=== PATIENT | female | born 1980 | race Caucasian/White ===

== ENCOUNTER → 2016-05-27 | Outpatient (CLI) | payer OTHER ==
[~2016-05-27] MED LIST: ADDE20CA PO; ATOM40CA PO; BUPR150T3 PO; CLONI1TA PO; GABA-283 PO; LEVO175T2 PO; LEVO200T4 PO; PROC10TA PO; TRAM50TA2 PO; TRAZO50TA PO
== END ==
LOC: M OUTALCOH 09:19
PROVIDERS: ATTEND Psychiatry & Neurology Psychiatry
DX: F10.20 Alcohol dependence, uncomplicated (principal); F12.20 Cannabis dependence, uncomplicated; F11.20 Opioid dependence, uncomplicated

== ENCOUNTER → 2016-07-04 | Outpatient (RCR) | payer OTHER | LOC: M OUTALCOH 06-09 13:28 | PROVIDERS: ATTEND Psychiatry & Neurology Psychiatry | DX: F10.20 Alcohol dependence, uncomplicated (principal); F17.200 Nicotine dependence, unspecified, uncomplicated; F12.20 Cannabis dependence, uncomplicated; F11.20 Opioid dependence, uncomplicated ==

== ENCOUNTER 2016-08-01 13:00 | Outpatient (RCR) | payer OTHER | END 2016-08-03 | LOC: M OUTALCOH 13:00 | PROVIDERS: ATTEND Psychiatry & Neurology Psychiatry | DX: F10.20 Alcohol dependence, uncomplicated (principal); F17.200 Nicotine dependence, unspecified, uncomplicated; F12.20 Cannabis dependence, uncomplicated; F11.20 Opioid dependence, uncomplicated ==

== ENCOUNTER 2016-10-07 09:25 | Emergency (ER) | payer OTHER ==
[~2016-10-07] VITALS: Ht 160 cm; Wt 80.7 kg
[~2016-10-07 09:25] MED LIST changes: -ADDE20CA PO; +ADDE20CA3 PO
[2016-10-07 09:26] VITALS: BP 112/76
[2016-10-07] MEDS ORDERED: TRAM50TA2 PO (09:34)
[2016-10-07] MEDS ORDERED: ADDE30CA3 PO (09:34)
[2016-10-07] MEDS ORDERED: ALPRAZolam 0.25 MG TAB PO ONE (10:00)
[2016-10-07] MEDS ORDERED: XANA0.5T PO (10:14)
[2017-02-09] MEDS ORDERED: ALPR0.5T3 (17:40)
[2017-02-09] MEDS ORDERED: TRAM50TA2 (17:40)
[2017-02-09] MEDS ORDERED: LEXA1TAB PO (18:31)
[2017-02-09] MEDS ORDERED: HYDR-3363 PO (18:40)
== END 2016-10-07 10:24 | disposition home or self-care (01) ==
LOC: M ED 09:25
DX: F41.9 Anxiety disorder, unspecified (principal); E07.9 Disorder of thyroid, unspecified; Z79.899 Other long term (current) drug therapy; Z79.891 Long term (current) use of opiate analgesic

== ENCOUNTER → 2016-12-31 | Outpatient (CLI) | payer MEDICAID ==
[~2016-12-31] MED LIST changes: +ADDE30CA3 PO; +ALPR0.5T3; +ESCI10TA2; +HYDR-3363 PO; +LEXA1TAB PO; +NALT50TA4; +TRAM50TA2; +TRAZ50TA11; +XANA0.5T PO
== END ==
LOC: M OUTALCOH 12:32
PROVIDERS: ATTEND Psychiatry & Neurology Psychiatry
DX: F11.20 Opioid dependence, uncomplicated (principal); F10.20 Alcohol dependence, uncomplicated

== ENCOUNTER 2017-01-06 12:11 | Emergency (ER) | payer MEDICAID, OTHER ==
[~2017-01-06] VITALS: Ht 160 cm; Wt 81.8 kg
[2017-01-06 12:11] VITALS: BP 133/81
[~2017-01-06 12:11] MED LIST changes: -ALPR0.5T3; -ESCI10TA2; -HYDR-3363 PO; -LEXA1TAB PO; -NALT50TA4; -TRAM50TA2; -TRAZ50TA11
[2017-01-06] MEDS ORDERED: NALT50TA4 (12:15)
[2017-01-06] MEDS ORDERED: ESCI10TA2 (12:15)
[2017-01-06] MEDS ORDERED: TRAZ50TA11 (12:15)
[2017-02-09] MEDS ORDERED: TRAM50TA2 (17:40)
[2017-02-09] MEDS ORDERED: ALPR0.5T3 (17:40)
[2017-02-09] MEDS ORDERED: LEXA1TAB PO (18:31)
[2017-02-09] MEDS ORDERED: HYDR-3363 PO (18:40)
== END 2017-01-06 13:44 | disposition left against medical advice (07) ==
LOC: M ED 12:11
DX: M79.673 Pain in unspecified foot (principal); Z53.21 Procedure and treatment not carried out due to patient leaving prior to being seen by health care provider

== ENCOUNTER 2017-03-03 09:00 | Outpatient (RCR) | payer MEDICAID ==
[~2017-03-03 09:00] MED LIST changes: +ALPR0.5T3; +ESCI10TA2; +HYDR-3363 PO; +LEXA1TAB PO; +NALT50TA4; +TRAM50TA2; +TRAZ50TA11
== END 2017-03-05 ==
LOC: M OUTALCOH 09:00
PROVIDERS: ATTEND Psychiatry & Neurology Psychiatry
DX: F10.20 Alcohol dependence, uncomplicated (principal); F17.200 Nicotine dependence, unspecified, uncomplicated; F12.20 Cannabis dependence, uncomplicated; F11.20 Opioid dependence, uncomplicated

== ENCOUNTER 2017-09-07 11:03 | Emergency (ER) | payer OTHER, MEDICAID | END 2017-09-07 12:16 | disposition left against medical advice (07) | LOC: M ED 11:03 | DX: Z53.21 Procedure and treatment not carried out due to patient leaving prior to being seen by health care provider (principal) ==

== ENCOUNTER 2017-09-07 19:38 | Emergency (ER) | payer MEDICAID, OTHER ==
[2017-09-07] MEDS: NS 1,000 ML IV (20:32)
[2017-09-07 20:36] LABS: BASO % 0.4 % (0.0-1.0); EOS # 0.1 10^3/uL (0.0-0.50); EOS % 1.1 % (0.0-3.0); HEMATOCRIT 39.2 % (36.0-47.0); HEMOGLOBIN 12.9 g/dl (12.0-15.5); IMMATURE GRANULOCYTE % 0.2 % (0-3.0); LYMPH # 1.2 10^3/uL (1.5-4.5); LYMPH % 23.3 % (24.0-44.0); MEAN CORPUSCULAR HEMOGLOBIN 28.8 pg (27.0-33.0); MEAN CORPUSCULAR HGB CONC 32.9 g/dl (32.0-36.5); MEAN CORPUSCULAR VOLUME 87.5 fl (80.0-96.0); MONO # 0.4 10^3/uL (0.0-0.8); MONO % 6.8 % (0.0-5.0); NEUTROPHILS # 3.6 10^3/uL (1.8-7.7); NEUTROPHILS % 68.2 % (36.0-66.0); PLATELET COUNT, AUTOMATED 207 10^3/uL (150-450); RED BLOOD COUNT 4.48 10^6/uL (4.00-5.40); RED CELL DISTRIBUTION WIDTH 13.1 % (11.5-14.5); WHITE BLOOD COUNT 5.3 10^3/uL (4.0-10.0)
[2017-09-07 20:40] LABS: BEDSIDE GLUCOSE 98 MG/DL (70-105)
[2017-09-07 20:46] LABS: AMMONIA 20 uMOL/L (<32)
[2017-09-07 20:48] LABS: ACETAMINOPHEN LEVEL < 2.0 UG/ML (10.0-30.0); ALBUMIN 3.6 GM/DL (3.2-5.2); ALBUMIN/GLOBULIN RATIO 1.29 (1.00-1.93); ALKALINE PHOSPHATASE 97 U/L (45-117); ALT/SGPT 20 U/L (12-78); ANION GAP 9 MEQ/L (8-16); AST/SGOT 22 U/L (7-37); BILIRUBIN,DIRECT 0.1 MG/DL (0.0-0.2); BILIRUBIN,TOTAL 0.3 MG/DL (0.2-1.0); BLOOD UREA NITROGEN 7 MG/DL (7-18); CALCIUM LEVEL 8.2 MG/DL (8.5-10.1); CARBON DIOXIDE LEVEL 28 MEQ/L (21-32); CHLORIDE LEVEL 107 MEQ/L (98-107); CPK CREATINE PHOSPHOKINASE 179 U/L (26-192); ETHYL ALCOHOL (ETHANOL) < 0.003 % (0.000-0.010); GLOMERULAR FILTRATION RATE > 60.0 (>60); GLUCOSE, FASTING 111 MG/DL (70-100); POTASSIUM SERUM 3.6 MEQ/L (3.5-5.1); SALICYLATE LEVEL < 1.7 MG/DL (5.0-30.0); SODIUM LEVEL 144 MEQ/L (136-145); TOTAL PROTEIN 6.4 GM/DL (6.4-8.2); TROPONIN I < 0.02 NG/ML (< 0.10)
[2017-09-07 20:53] LABS: CK-MB VALUE MASS 1.9 NG/ML (<3.6); MB/CK RELATIVE INDEX 1.06 (< OR =4)
[2017-09-07 20:55] LABS: LACTIC ACID SEPSIS PROTOCOL 2.2 MMOL/L (0.4-2.0)
[2017-09-07 21:28] LABS: CONTROL LINE HCG INT CTR LINE PRESENT; HCG, SERUM QUALITATIVE NEGATIVE (NEGATIVE)
[2017-09-07 21:30] LABS: FREE T4 0.36 NG/DL (0.76-1.46); OSMOLALITY SERUM 304 MOSM/KG (275-295)
[2017-09-07 22:00] LABS: AMORPHOUS SEDIMENT RFX SMALL (NEGATIVE); KETONE, URINE AUTO RFX 1+ mg/dL (NEGATIVE); NITRITE, URINE AUTO RFX NEGATIVE (NEGATIVE); RBC, URINE AUTO RFX TNTC /HPF (0-3); SPECIFIC GRAVITY UR AUTO RFX 1.017 (1.002-1.035); SQUAM EPITHELIAL CELL UR AURFX 8 /HPF (0-6)
[2017-09-07 22:03] LABS: LEUKOCYTE ESTERASE UR AUTO RFX 2+ (NEGATIVE); WBC, URINE AUTO RFX 54 /HPF (0-3)
[2017-09-07 22:04] LABS: AMPHETAMINES LEVEL URINE NEGATIVE (NEGATIVE); BARBITURATES URINE NEGATIVE (NEGATIVE); BENZODIAZEPINES URINE NEGATIVE (NEGATIVE); CANNABINOIDS URINE NEGATIVE (NEGATIVE); COCAINE METABOLITE URINE POSITIVE (NEGATIVE); METHADONE URINE NEGATIVE (NEGATIVE); OPIATES URINE POSITIVE (NEGATIVE); PHENCYCLIDINE URINE NEGATIVE (NEGATIVE)
[2017-09-07] MEDS ORDERED: METOCLOPRAMIDE INJ 10MG/2ML VIAL (J2765) As Ordered (23:55)
[2017-09-07] MEDS: ONDANSETRON 4MG/2ML VIAL (J2405) IV (23:59)
[2017-09-08] MEDS: ONDANSETRON 4MG/2ML VIAL (J2405) IV (04:51)
[2017-09-08] MEDS: KETOROLAC 30 MG/ML VIAL (J1885) IV (04:51)
== END 2017-09-08 05:26 | disposition home or self-care (01) ==
LOC: M ED 19:38
DX: R41.82 Altered mental status, unspecified (principal); F19.10 Other psychoactive substance abuse, uncomplicated; F17.200 Nicotine dependence, unspecified, uncomplicated; Z79.899 Other long term (current) drug therapy
CPT/HCPCS: J2405

== ENCOUNTER → 2017-09-30 | Outpatient (CLI) | payer OTHER ==
[2017-09-30 15:42] LABS: HEMATOCRIT 41.7 % (36.0-47.0); HEMOGLOBIN 13.8 g/dl (12.0-15.5); MEAN CORPUSCULAR HEMOGLOBIN 29.2 pg (27.0-33.0); MEAN CORPUSCULAR HGB CONC 33.1 g/dl (32.0-36.5); MEAN CORPUSCULAR VOLUME 88.3 fl (80.0-96.0); PLATELET COUNT, AUTOMATED 186 10^3/uL (150-450); RED BLOOD COUNT 4.72 10^6/uL (4.00-5.40); RED CELL DISTRIBUTION WIDTH 13.3 % (11.5-14.5); WHITE BLOOD COUNT 6.9 10^3/uL (4.0-10.0)
[2017-09-30 16:48] LABS: HIV 1&2 SCREEN CENTAUR NEGATIVE (NEGATIVE)
[2017-09-30 17:19] LABS: CHLAMYDIA DNA AMPLIFICATION NEGATIVE (NEGATIVE); GC DNA AMPLIFICATION NEGATIVE (NEGATIVE)
[2017-10-01 10:00] LABS: ALBUMIN 4.2 GM/DL (3.2-5.2); ALKALINE PHOSPHATASE 112 U/L (45-117); ALT/SGPT 30 U/L (12-78); ANION GAP 9 MEQ/L (8-16); AST/SGOT 20 U/L (7-37); BILIRUBIN,TOTAL 0.3 MG/DL (0.2-1.0); BLOOD UREA NITROGEN 11 MG/DL (7-18); CALCIUM LEVEL 8.9 MG/DL (8.5-10.1); CARBON DIOXIDE LEVEL 25 MEQ/L (21-32); CHLORIDE LEVEL 109 MEQ/L (98-107); CREATININE FOR GFR 1.02 MG/DL (0.55-1.30); GLOMERULAR FILTRATION RATE > 60.0 (>60); GLUCOSE, FASTING 95 MG/DL (70-100); HCG, SERUM QUANTITATIVE < 1.0 MIU/ML; POTASSIUM SERUM 4.8 MEQ/L (3.5-5.1); SODIUM LEVEL 143 MEQ/L (136-145); TOTAL PROTEIN 7.2 GM/DL (6.4-8.2)
[2017-10-02 10:09] LABS: HEPATITIS C VIRUS ABY INDEX 0.1 INDEX (<0.8)
[2017-10-02 10:22] LABS: HEPATITIS B SURFACE ANTIGEN NEGATIVE (NEGATIVE)
== END ==
LOC: M LAB 15:09
DX: F11.20 Opioid dependence, uncomplicated (principal); R94.31 Abnormal electrocardiogram [ECG] [EKG]
CPT/HCPCS: 93005

== ENCOUNTER → 2017-11-17 | Outpatient (REF) | payer OTHER ==
[2017-11-17 13:12] LABS: ALBUMIN 3.5 GM/DL (3.2-5.2); ALBUMIN/GLOBULIN RATIO 1.13 (1.00-1.93); ALKALINE PHOSPHATASE 85 U/L (45-117); ALT/SGPT 30 U/L (12-78); ANION GAP 7 MEQ/L (8-16); AST/SGOT 32 U/L (7-37); BILIRUBIN,TOTAL 0.3 MG/DL (0.2-1.0); BLOOD UREA NITROGEN 14 MG/DL (7-18); CALCIUM LEVEL 9.1 MG/DL (8.5-10.1); CARBON DIOXIDE LEVEL 29 MEQ/L (21-32); CHLORIDE LEVEL 109 MEQ/L (98-107); CHOLESTEROL LEVEL 161 MG/DL (<200); CHOLESTEROL RISK RATIO 4.878 (<5); CREATININE FOR GFR 1.54 MG/DL (0.55-1.30); GLOMERULAR FILTRATION RATE 40.8 (>60); GLUCOSE, FASTING 108 MG/DL (70-100); HDL CHOLESTEROL 33 MG/DL (>40); LDL CHOLESTEROL 88.8 MG/DL (<100); NON-HDL-C 128 MG/DL; POTASSIUM SERUM 3.9 MEQ/L (3.5-5.1); SODIUM LEVEL 145 MEQ/L (136-145); TOTAL PROTEIN 6.6 GM/DL (6.4-8.2); TRIGLYCERIDES LEVEL 196 MG/DL (<150)
== END ==
LOC: M LAB REF 12:06
DX: E03.8 Other specified hypothyroidism (principal)

== ENCOUNTER 2018-01-11 11:25 | Emergency (ER) | payer OTHER | END 2018-01-11 12:41 | disposition home or self-care (01) | LOC: M ED 11:25 | DX: Z76.0 Encounter for issue of repeat prescription (principal); F41.9 Anxiety disorder, unspecified; F19.10 Other psychoactive substance abuse, uncomplicated; F17.210 Nicotine dependence, cigarettes, uncomplicated; Z79.899 Other long term (current) drug therapy | CPT/HCPCS: 99282 ==

== ENCOUNTER → 2018-06-08 | Outpatient (REF) | payer OTHER ==
[~2018-06-08] MED LIST changes: +CLON-412 PO; -GABA-283 PO; +GABA-845 PO; +METH10TA2 PO; -PROC10TA PO; +PROC10TA4 PO; +QUET5TAB PO; +TRAZ-160; -TRAZ50TA11
[2018-06-08 12:59] LABS: FREE T4 1.45 NG/DL (0.76-1.46); THYROID STIMULATING HORMONE 0.01 uIU/ML (0.358-3.740)
== END ==
LOC: M LAB REF 12:18
PROVIDERS: ATTEND Nurse Practitioner Primary Care
DX: E03.9 Hypothyroidism, unspecified (principal)

== ENCOUNTER 2018-07-15 07:02 | Emergency (ER) | payer MEDICAID, OTHER, SELFPAY ==
[~2018-07-15] VITALS: Ht 160 cm; Wt 93.9 kg
[~2018-07-15 07:02] MED LIST changes: +TRAZ1TAB6 PO; -TRAZO50TA PO
[2018-07-15 07:57] LABS: BASO # 0.1 10^3/uL (0.0-0.2); BASO % 1.3 % (0.0-1.0); EOS # 0.4 10^3/uL (0.0-0.50); EOS % 6.1 % (0.0-3.0); HEMATOCRIT 42.4 % (36.0-47.0); HEMOGLOBIN 14.4 g/dl (12.0-15.5); LYMPH # 1.8 10^3/uL (1.5-4.5); LYMPH % 25.6 % (24.0-44.0); MEAN CORPUSCULAR VOLUME 88.3 fl (80.0-96.0); MONO # 0.4 10^3/uL (0.0-0.8); MONO % 6.1 % (0.0-5.0); NEUTROPHILS # 4.1 10^3/uL (1.8-7.7); NEUTROPHILS % 60.3 % (36.0-66.0); PLATELET COUNT, AUTOMATED 151 10^3/uL (150-450); WHITE BLOOD COUNT 6.8 10^3/uL (4.0-10.0)
[2018-07-15 08:16] LABS: BLOOD UREA NITROGEN 19 MG/DL (7-18); CARBON DIOXIDE LEVEL 27 MEQ/L (21-32); CHLORIDE LEVEL 108 MEQ/L (98-107); CPK CREATINE PHOSPHOKINASE 384 U/L (26-192); CREATININE FOR GFR 1.42 MG/DL (0.55-1.30); GLOMERULAR FILTRATION RATE 44.6 (>60); GLUCOSE, FASTING 88 MG/DL (70-100); MB/CK RELATIVE INDEX 0.57 (< OR =4); POTASSIUM SERUM 4.2 MEQ/L (3.5-5.1); SODIUM LEVEL 141 MEQ/L (136-145); TROPONIN I < 0.02 NG/ML (< 0.10)
--- NOTE | 2018-07-15 08:18 | REP ---
Chest x-ray: Two views. History: Dyspnea. Cough. No comparison chest x-ray. Findings: The lungs are symmetrically aerated and clear. The pleural angles are sharp. EKG monitoring electrodes overlie the chest. The heart is not enlarged. There is evidence of right hilar and right paratracheal lymphadenopathy. No definite left hilar adenopathy. No bony abnormality is seen. Exam is otherwise unremarkable. Impression: Right paratracheal and right hilar lymphadenopathy. Rule out lymphoma versus sarcoidosis versus other adenopathy. Consider chest CT with IV contrast. Electronically Signed by Sourav Valle MD 07/15/2018 08:10 A
[2018-07-15] MEDS ORDERED: ISOVUE-370 76% 100ML VIAL (Q9967) As Ordered ONE (08:35)
[2018-07-15 08:51] LABS: FREE T4 0.2 NG/DL (0.76-1.46)
--- NOTE | 2018-07-15 09:38 | REP ---
CT of the chest with IV contrast: Comparison is the PA and lateral plain film study of the chest dated 07/15/2018. There is mediastinal lymph node enlargement in the anterior mediastinum, paratracheal mediastinum, aorticopulmonic window, precarinal and subcarinal areas. There is bilateral hilar lymph node enlargement. There is no axillary lymph node enlargement. There is no periaortic or retrocrural lymph node enlargement. There is a new ground-glass left lower lobe density measuring 3.2 cm craniocaudad on the coronal images, , not visible on the comparison plain film study. There is a 5.2 cm ground-glass density in the right perihilar area in the anterior segment right lower lobe on image 50, not visible on the comparison plain film study. There are no pleural effusions. The thoracic aorta is unremarkable. The cardiac size is normal. The the visible upper abdominal contents are unremarkable. Splenic size cannot be determined as the spleen is partially excluded. Impression: Mediastinal and bilateral hilar lymph node enlargement. No axillary lymph node enlargement. Bilateral lower lobe ground-glass densities as described. No pleural effusions. Electronically Signed by Levy Tena MD 07/15/2018 09:30 A
[2018-07-15] MEDS ORDERED: LEVO150T7 PO (11:44)
[2018-07-15 12:01] VITALS: BP 134/92
--- NOTE | 2018-07-15 15:40 | ECGEPIP ---
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
== END 2018-07-15 12:03 | disposition home or self-care (01) ==
LOC: M ED 07:02
DX: R07.89 Other chest pain (principal); R59.0 Localized enlarged lymph nodes; R91.8 Other nonspecific abnormal finding of lung field; R00.0 Tachycardia, unspecified; E03.9 Hypothyroidism, unspecified; R25.1 Tremor, unspecified; R53.1 Weakness; F32.9 Major depressive disorder, single episode, unspecified; F17.210 Nicotine dependence, cigarettes, uncomplicated
CPT/HCPCS: 36415; 71046; 71260; 80048; 82550; 82553; 84439; 84443; 85025; 86480; 93005; 93041; 94760; 99285; Q9967

== ENCOUNTER → 2018-07-28 | Outpatient (CLI) | payer MEDICAID ==
[~2018-07-28] MED LIST changes: +LEVO150T7 PO
[2018-07-28 13:47] LABS: BASO # 0.1 10^3/uL (0.0-0.2); BASO % 1.3 % (0.0-1.0); EOS # 0.3 10^3/uL (0.0-0.50); EOS % 3.7 % (0.0-3.0); HEMATOCRIT 44.4 % (36.0-47.0); HEMOGLOBIN 14.8 g/dl (12.0-15.5); LYMPH # 1.9 10^3/uL (1.5-4.5); LYMPH % 26.5 % (24.0-44.0); MEAN CORPUSCULAR HEMOGLOBIN 30.3 pg (27.0-33.0); MEAN CORPUSCULAR HGB CONC 33.3 g/dl (32.0-36.5); MONO # 0.4 10^3/uL (0.0-0.8); MONO % 6.2 % (0.0-5.0); NEUTROPHILS # 4.4 10^3/uL (1.8-7.7); NEUTROPHILS % 61.6 % (36.0-66.0); PLATELET COUNT, AUTOMATED 174 10^3/uL (150-450); RED BLOOD COUNT 4.88 10^6/uL (4.00-5.40); WHITE BLOOD COUNT 7.1 10^3/uL (4.0-10.0)
[2018-07-28 14:17] LABS: PARTIAL THROMBOPLASTIN TIME 30.3 SECONDS (25.4-37.6)
[2018-07-28 14:25] LABS: INR 0.96; PROTHROMBIN TIME 12.9 SECONDS (12.1-14.4)
[2018-07-28 15:32] LABS: ALBUMIN 4.4 GM/DL (3.2-5.2); BILIRUBIN,DIRECT 0.1 MG/DL (0.0-0.2); BILIRUBIN,TOTAL 0.6 MG/DL (0.2-1.0); CALCIUM LEVEL 9.3 MG/DL (8.5-10.1); CREATININE FOR GFR 1.38 MG/DL (0.55-1.30); GLOMERULAR FILTRATION RATE 46.1 (>60); TOTAL PROTEIN 7.7 GM/DL (6.4-8.2)
[2018-07-31 00:07] LABS: VITAMIN D 1,25 DIHYDROXY 38.8 pg/mL (19.9-79.3)
== END ==
LOC: M SMT 10:20
PROVIDERS: ATTEND Internal Medicine Pulmonary Disease
DX: R59.0 Localized enlarged lymph nodes (principal); R91.8 Other nonspecific abnormal finding of lung field

== ENCOUNTER → 2018-08-11 | Outpatient (CLI) | payer MEDICAID, SELFPAY ==
[~2018-08-11] MED LIST changes: +BENZ0.5T PO; +ESCI10TA2 PO; +GABA-843 PO; +IBUP200T45 PO; +QUET1TAB7 PO; +REXU1TAB2 PO; +SYNT150T PO; +TRAZ10TA PO
--- NOTE | 2018-08-11 15:55 | REP ---
Right axillary ultrasound: History: Palpable axillary lymph node on physical exam. Bilateral hilar and mediastinal lymphadenopathy. Chest CT study July 15, 2018. Findings: Scanning through the right axilla shows two visible but completely normal-appearing small lymph nodes one measuring 1.2 x 0.7 x 0.9 cm and the other 0.7 x 0.4 x 0.5 cm. These are predominately fat replaced and appear normal morphologically. Impression: No evidence of adenopathy. Electronically Signed by Sourav Valle MD 08/11/2018 03:45 P
== END ==
LOC: M RAD 12:28
PROVIDERS: ATTEND Internal Medicine Pulmonary Disease
DX: R59.0 Localized enlarged lymph nodes (principal)

== ENCOUNTER 2018-08-27 07:26 | Inpatient (IN) | payer MEDICAID, OTHER, SELFPAY ==
[~2018-08-27] VITALS: Ht 160 cm; Wt 91.8 kg
[~2018-08-27 07:26] MED LIST changes: -BENZ0.5T PO; -ESCI10TA2 PO; -GABA-843 PO; -IBUP200T45 PO; -QUET1TAB7 PO; -REXU1TAB2 PO; -SYNT150T PO; -TRAZ10TA PO
[2018-08-27 08:47] LABS: HEMATOCRIT 40.4 % (36.0-47.0); HEMOGLOBIN 13.9 g/dl (12.0-15.5); MEAN CORPUSCULAR HGB CONC 34.4 g/dl (32.0-36.5); MEAN CORPUSCULAR VOLUME 92.9 fl (80.0-96.0); PLATELET COUNT, AUTOMATED 160 10^3/uL (150-450); RED BLOOD COUNT 4.35 10^6/uL (4.00-5.40); WHITE BLOOD COUNT 5.5 10^3/uL (4.0-10.0)
[2018-08-27 09:15] LABS: HCG, SERUM QUALITATIVE NEGATIVE (NEGATIVE)
[2018-08-27 09:33] LABS: AMPHETAMINES LEVEL URINE NEGATIVE (NEGATIVE); BARBITURATES URINE NEGATIVE (NEGATIVE); BENZODIAZEPINES URINE NEGATIVE (NEGATIVE); CANNABINOIDS URINE NEGATIVE (NEGATIVE); COCAINE METABOLITE URINE NEGATIVE (NEGATIVE); METHADONE URINE NEGATIVE (NEGATIVE); OPIATES URINE NEGATIVE (NEGATIVE); PHENCYCLIDINE URINE NEGATIVE (NEGATIVE)
[2018-08-27 09:44] LABS: ALBUMIN 4.5 GM/DL (3.2-5.2); ALT/SGPT 35 U/L (12-78); BILIRUBIN,DIRECT 0.2 MG/DL (0.0-0.2); BILIRUBIN,TOTAL 0.8 MG/DL (0.2-1.0); BLOOD UREA NITROGEN 25 MG/DL (7-18); CALCIUM LEVEL 8.7 MG/DL (8.5-10.1); CARBON DIOXIDE LEVEL 24 MEQ/L (21-32); CHLORIDE LEVEL 108 MEQ/L (98-107); CREATININE FOR GFR 1.08 MG/DL (0.55-1.30); ETHYL ALCOHOL (ETHANOL) < 0.003 % (0.000-0.010); GLOMERULAR FILTRATION RATE > 60.0 (>60); GLUCOSE, FASTING 97 MG/DL (70-100); POTASSIUM SERUM 4.1 MEQ/L (3.5-5.1); SALICYLATE LEVEL 4.3 MG/DL (5.0-30.0); SODIUM LEVEL 139 MEQ/L (136-145); TOTAL PROTEIN 7.3 GM/DL (6.4-8.2)
[2018-08-27 09:45] LABS: ACETAMINOPHEN LEVEL < 2.0 UG/ML (10.0-30.0)
[2018-08-27] MEDS ORDERED: ONDANSETRON 4 MG ORAL DISINTEGRATING TAB (Q0162 PER 1MG) PO ONE (09:45)
[2018-08-27] MEDS ORDERED: MOM 30ML SUSPENSION UDC PO PRN (11:30)
[2018-08-27] MEDS ORDERED: LORazepam 1 MG TAB PO STA (11:51)
[2018-08-27] MEDS ORDERED: SYNT150T PO (12:14)
[2018-08-27] MEDS ORDERED: IBUP200T45 PO (12:14)
[2018-08-27] MEDS: THIAMINE 100 MG TAB PO SCH ×2 (13:40→20:35)
[2018-08-27 16:12] VITALS: BP 130/88
[2018-08-27 18:03] VITALS: BP 140/99
[2018-08-27] MEDS: LORazepam 2 MG TAB PO PRN (18:06)
[2018-08-27] MEDS: ACETAMINOPHEN TAB 650MG DOSE (2X325MG) PO PRN (18:07)
[2018-08-27] MEDS: MAALOX 30 ML SUSP *UDC PO PRN (20:37)
[2018-08-27] MEDS: traZODone 50 MG TAB PO PRN (21:15)
[2018-08-28] MEDS: LORazepam 2 MG TAB PO PRN (03:50)
[2018-08-28 03:53] VITALS: BP 142/77
[2018-08-28 06:28] VITALS: BP 108/68
[2018-08-28] MEDS: MULTIVITAMINS/MINERALS THERAP 1 TAB PO SCH (08:01)
[2018-08-28] MEDS: THIAMINE 100 MG TAB PO SCH ×2 (08:01→20:04)
[2018-08-28] MEDS: FOLIC ACID 1 MG TAB PO SCH (08:01)
[2018-08-28] MEDS: MAALOX 30 ML SUSP *UDC PO PRN ×2 (08:01→18:26)
--- NOTE | 2018-08-28 08:42 | MHHPEPDOC ---
General Legal Status: 9.39 Chief Complaint "I'm having anxiety, depression, drinking, and my life is overwhelming. History of Present Illness HISTORY OF THE PRESENT ILLNESS: Patient is a 38 -year-old * Patient arrived ambulatory with her mother. Initially believed to be here for an anxiety attack, it was quickly learned that she was experiencing SI, as well as anxiety & depression. Patient states that she has h/o depression, anxiety & alcohol abuse. She reports previous h/o treatment w/[facility], however was in residential for 5 months (until early July), during which all treatment was via the residential staff from [facility]. She reports losing her insurance while in residential & subsequently has had no treatment since her release. She states that she has instead been self-medicating with alcohol on a daily basis since her release. Additionally she reports that she has been "couch surfing" among friends' homes, as she has no permanent home at this time. She states that these factors have directly contributed to worsening depression, anxiety & now desire to . She denies having any active plan, although continues to endorse + SI. Patient states she recently got out of residential and began drinking again. She has been sleeping on people's couches and they all drink. Originally she had kidnapped her child in 2014 and was on probation. She was incarcerated a second time for failing probation because she was drinking and missing her probation appointments. She has been sad and anxious. "I want to get back on my meds. Lexapro 20 mg and was hoping I could have Wellbutrin to quit smoking". She states she had no medications after putting residential and due to insurance difficulties. She states she is unable to find a place to stay and has an upset stomach. She had lost her apartment when she was treated. She has been drinking since she was age 15. Whiskey apparently one and a half pints a day. Her last drink was 2 days before admission. She has been in inpatient alcohol treatment twice and psychiatric treatment. This being the second time. Her legal history is negative at this time, but her history is as described medical problems. She has sarcoidosis and hypothyroidism. Her surgical history is positive for a and tubal ligation. She states her mother lives in [place] and has schizophrenia and alcoholism, and that her father was an alcoholic. He has never been sober and has also used opiates and pills. She was placed in a methadone program before residential, but has had none since. Psychiatric Review of Systems Depression (2 or more weeks): depressed mood Psychosis: denies PTSD: denies Anxiety: situational anxiety Past Psychiatric History Previous Psychiatric Diagnosis: Depression, anxiety, alcohol abuse. Previous Psychiatric Admissions: One time here and to previous alcohol rehabilitation, admission. Suicide Attempts:, None mention. Psychiatric Follow-up:. No follow-up. Psychiatric medications:, Lexapro 20 mg some use of stimulants. Past Medical History Medical Problems Hypothyroidism, and sarcoidosis Head Injury: No Seizures: Yes Hospitalizations: Yes Surgeries: No Family Medical/Psychiatric HX Psychiatric Disorders: Yes Addiction: Yes Suicide Attemps/Completions: No Addiction History alcohol, opioids Social History Childhood: . Abuse/Trauma:. Current Living Situation: Living on friends couches. Education: . Employment: . Social Support:. Family. Legal: Legal history as mentioned, probation failure and absconding with a child. Marital:, . Mental Status Examination General Appearance: unkempt Build: overweight Demeanor: very figety Eye Contact: average Activity: average Behavior: cooperative Speech: clear Mood: anxious Affect: full Thought Process: logical/linear Thought Content (Delusions): denies SI, HI, AVH Thought Content (Other): none reported Thought Content (Aggressive): none reported Perception (Hallucinations): none reported Perception (Other): none reported Cognition (Impairment of): none reported Cognition(Intelligence Est.): average Oriented: Oriented times three Insight: poor Judgment: Poor Psychosis: Denies Diagnoses Situational depression, anxiety, polysubstance abuse A-FIB/CHADSVASC A-FIB History Current/History of A-Fib/PAF?: No Initial Treatment Plan 1. Patient was admitted on a [9.39] status. 2. Complete history was obtained. 3. With patients permission, family will be contacted and database will be expanded. 4. Patients medication regimen will be reviewed and changed accordingly. 5. Patient will be provided with protected environment. 6. Patient will be treated with individual, group, and milieu therapies. 7. Patient will receive supportive psych-education. 8. Discharge planning will commence immediately. 9. Outpatient follow-up treatment will be strongly recommended. 10. The initial treatment plan will focus initially on: * Depression. * Risk for suicide. * Substance abuse. ESTIMATED LENGTH OF STAY: - DAYS. TIME SPENT COUNSELING AND COORDINATING INITIAL CARE: minutes. Vital Signs Vital Signs Date Time Temp Pulse Resp B/P (MAP) Pulse Ox O2 Delivery O2 Flow Rate FiO2 08/28/18 06:28 98.8 106 16 108/68 (81) 08/27/18 16:31 Room Air 08/27/18 16:12 96 Medications Scheduled Levothyroxine Sodium (Synthroid) 150 Mcg Tablet, 150 MCG PO QAM, (Reported) Scheduled PRN Ibuprofen (Ibu-200) 200 Mg Tablet, 800 MG PO Q6H PRN for PAIN, (Reported) Allergies Coded Allergies: No Known Allergies (Verified , 08/25/18) BOBBY TAYLOR MD August 28, 2018 08:42
[2018-08-28] MEDS: LORazepam 1 MG TAB PO SCH ×2 (09:23→16:09)
[2018-08-28] MEDS ORDERED: NICOTINE 14 MG/24 HR TRANSDERMAL TD ONE (10:15)
[2018-08-28] MEDS: NICOTINE 14 MG/24 HR TRANSDERMAL TD SCH (10:37)
[2018-08-28] MEDS: LEVOTHYROXINE 150MCG TABLET (0.15MG) PO SCH (12:29)
[2018-08-28] MEDS ORDERED: ONDANSETRON 4 MG TAB (S0181) PO ONE (13:00)
[2018-08-28] MEDS ORDERED: ESCITALOPRAM OXALATE 10 MG TAB (LEXAPRO) PO ONE (16:00)
[2018-08-28 18:20] VITALS: BP 120/89
[2018-08-28] MEDS: LORazepam 2 MG TAB PO SCH (20:04)
[2018-08-28] MEDS: ONDANSETRON 4 MG ORAL DISINTEGRATING TAB (Q0162 PER 1MG) PO PRN (20:04)
[2018-08-28] MEDS: traZODone 50 MG TAB PO PRN (20:04)
[2018-08-28] MEDS: ACETAMINOPHEN TAB 650MG DOSE (2X325MG) PO PRN (20:07)
[2018-08-28] MEDS ORDERED: LORazepam 1 MG TAB PO SCH (21:00)
[2018-08-29] MEDS: ONDANSETRON 4 MG ORAL DISINTEGRATING TAB (Q0162 PER 1MG) PO PRN ×2 (03:25→08:58)
[2018-08-29] MEDS: LEVOTHYROXINE 150MCG TABLET (0.15MG) PO SCH (06:18)
[2018-08-29 07:03] VITALS: BP 109/60
[2018-08-29] MEDS: buPROPion **XL** TABLET 150MG (WELLBUTRIN XL) PO SCH (08:27)
[2018-08-29] MEDS: FOLIC ACID 1 MG TAB PO SCH (08:27)
[2018-08-29] MEDS: THIAMINE 100 MG TAB PO SCH ×2 (08:27→20:15)
[2018-08-29] MEDS: MULTIVITAMINS/MINERALS THERAP 1 TAB PO SCH (08:27)
[2018-08-29] MEDS: LORazepam 2 MG TAB PO SCH ×3 (08:27→20:15)
[2018-08-29] MEDS: NICOTINE 14 MG/24 HR TRANSDERMAL TD SCH (08:28)
[2018-08-29 09:03] VITALS: BP 109/60
--- NOTE | 2018-08-29 15:04 | MHIPNPDOC ---
[facility] Progress Note Progress Note DATE OF SERVICE: 08/29/18 HISTORY: Patient on numerous medications and asking for other medication. Mood is good and affect bright, but use of medications needs to be guarded as patient has been noncompliant and also incarcerated with substantial alcohol use. VITAL SIGNS: See below. NEW TEST RESULTS: None. CURRENT MEDICATIONS: See below. MENTAL STATUS EXAMINATION: Patient is a 38-year old female, who is, admitted for noncompliance. Incarceration and alcohol use. Speech: Is, intact., But rapid Language skills are. No disturbance. Thought processes including: Intact. Thought content: Rapid speech. Abstract reasoning, and computation: [place] . Description of associations:. No loose associations. Description of abnormal or psychotic thoughts: Or psychotic thought. Judgment: Poor. Insight:, Poor. Orientation: Intact 3. Recent and remote memory:. No obvious disturbance. Attention span and concentration: Patient reports poor attention span and wants to be put back on stimulants. Language:, Intact. Fund of knowledge: Full. Mood:, Good. Affect:, Congruent. DIAGNOSES: 1. Polysubstance abuse. 2., Noncompliance. 3. Mood disorder. ASSESSMENT: Continued treatment. Continued evaluation of medications. O bservation of nausea. Continue detox MANAGEMENT PLAN: As above. TIME SPENT:, 30 minutes. Vital Signs Vital Signs Date Time Temp Pulse Resp B/P (MAP) Pulse Ox O2 Delivery O2 Flow Rate FiO2 08/29/18 09:03 98.9 90 14 109/60 96 08/29/18 09:01 Room Air Current Medications Current Medications Acetaminophen (Tylenol Tab) 650 mg Q6HP PRN PO HEADACHE or DISCOMFORT Last administered on 08/28/18at 20:07; Start 08/27/18 at 11:30 Al Hydrox/Mg Hydrox/Simethicone (Mylanta) 30 ml Q4HP PRN PO HEARTBURN/INDIGESTION Last administered on 08/28/18at 18:26; Start 08/27/18 at 11:30 Bupropion HCl (Wellbutrin Xl) 150 mg DAILY PO Last administered on 08/29/18at 08:27; Start 08/29/18 at 09:00 Folic Acid (Folic Acid) 1 mg DAILY PO Last administered on 08/29/18at 08:27; Start 08/28/18 at 09:00 Gabapentin (Neurontin) 400 mg TID PO ; Start 08/29/18 at 16:00 Home Med (Med Rec Complete!) ASDIRECTED XX ; Start 08/27/18 at 12:15; Stop 08/27/18 at 12:19; Status DC Levothyroxine Sodium (Synthroid) 150 mcg DAILY@0600 PO Last administered on 08/29/18 06:18; Start 08/28/18 at 13:00 Lorazepam (Ativan) 1 mg STAT STAT PO Last administered on 08/27/18at 12:11; Start 08/27/18 at 11:51; Stop 08/27/18 at 11:52; Status DC Lorazepam (Ativan) 1 mg TID PO Last administered on 08/28/18at 16:09; Start 08/28/18 at 09:00; Stop 08/28/18 at 19:05; Status DC Lorazepam (Ativan) 2 mg ASDIRECTED PRN PO SEE PROTOCOL Last administered on 08/28/18at 03:50; Start 08/27/18 at 11:30; Stop 08/28/18 at 09:14; Status DC Lorazepam (Ativan) 2 mg TID PO Last administered on 08/29/18at 08:27; Start 08/28/18 at 21:00 Lorazepam (Ativan) 2 mg TID PO ; Start 08/28/18 at 21:00; Status Cancel Magnesium Hydroxide (Milk Of Magnesia) 30 ml DAILYPRN PRN PO CONSTIPATION; Start 08/27/18 at 11:30 Multivitamins (Theragram-M) 1 tab DAILY PO Last administered on 08/29/18at 08:27; Start 08/28/18 at 09:00 Nicotine (Nicoderm Cq 14mg) 1 patch DAILY TD Last administered on 08/29/18 08:28; Start 08/28/18 at 09:00 Ondansetron HCl (Zofran Odt) 4 mg Q4HP PRN PO NAUSEA OR VOMITING Last administered on 08/29/18at 08:58; Start 08/28/18 at 19:45 Thiamine HCl (Thiamine HCl) 100 mg BID PO Last administered on 08/29/18 08:27; Start 08/27/18 at 13:00; Stop 08/29/18 at 21:01 Trazodone HCl (Desyrel) 50 mg QHSP PRN PO INSOMNIA Last administered on 08/28/18at 20:04; Start 08/27/18 at 11:30 Allergies Coded Allergies: No Known Allergies (Verified , 08/25/18) BOBBY TAYLOR MD August 29, 2018 15:04
[2018-08-29] MEDS: GABAPENTIN 400 MG CAP PO SCH ×2 (15:38→20:15)
[2018-08-29] MEDS: ACETAMINOPHEN TAB 650MG DOSE (2X325MG) PO PRN (18:51)
[2018-08-29 19:32] VITALS: BP 142/83
[2018-08-29] MEDS: IBUPROFEN 600 MG TAB PO PRN (21:53)
[2018-08-29] MEDS: traZODone 50 MG TAB PO PRN (22:33)
[2018-08-30] MEDS: LEVOTHYROXINE 150MCG TABLET (0.15MG) PO SCH (05:32)
[2018-08-30 06:31] VITALS: BP 117/55
[2018-08-30] MEDS: GABAPENTIN 400 MG CAP PO SCH ×3 (08:44→20:36)
[2018-08-30] MEDS: buPROPion **XL** TABLET 150MG (WELLBUTRIN XL) PO SCH (08:44)
[2018-08-30] MEDS: IBUPROFEN 600 MG TAB PO PRN ×2 (08:44→15:46)
[2018-08-30] MEDS: NICOTINE 14 MG/24 HR TRANSDERMAL TD SCH (08:44)
[2018-08-30] MEDS: MULTIVITAMINS/MINERALS THERAP 1 TAB PO SCH (08:44)
[2018-08-30] MEDS: FOLIC ACID 1 MG TAB PO SCH (08:44)
[2018-08-30] MEDS: LORazepam 2 MG TAB PO SCH (08:44)
[2018-08-30] MEDS: ACETAMINOPHEN TAB 650MG DOSE (2X325MG) PO PRN ×2 (12:14→20:36)
--- NOTE | 2018-08-30 14:10 | MHIPNPDOC ---
[facility] Progress Note Progress Note DATE OF SERVICE: 08/30/18 HISTORY: Patient had significant withdrawal symptoms, and was kept on an increased dose of Ativan 2 mg 3 times a day and is now reduced to 1 mg 3 times a day. She is also on Lexapro and Wellbutrin and hopes to move to a long-term to be away from the alcoholic acquaintances who she has been staying with. VITAL SIGNS: See below. NEW TEST RESULTS: None. CURRENT MEDICATIONS: See below. MENTAL STATUS EXAMINATION: Patient is a 38-year old female, who is suffering from depression, noncompliance, history of incarceration and alcoholism. Speech: Is. Normal. Language skills are normal Thought processes including:. Thought content:. No gross psychotic thoughts. Abstract reasoning, and computation:. Able to abstract. Description of associations:. No loose associations. Description of abnormal or psychotic thoughts:. No psychotic thought. Judgment:, Poor. Insight:, Poor. Orientation: Intact 3. Recent and remote memory:. Intact. Attention span and concentration: Intact. Language:. Intact. Fund of knowledge: Complete. Mood: Good. Affect:, Congruent. DIAGNOSES: 1. Depression. 2.. Poly substance abuse. 3. Homelessness. ASSESSMENT:. Patient plans to move to a long-term. Continue to decrease withdrawal medication MANAGEMENT PLAN:. Discharge planning after medication withdrawal and outpatient treatment plan. TIME SPENT:. 30 minutes. Vital Signs Vital Signs Date Time Temp Pulse Resp B/P (MAP) Pulse Ox O2 Delivery O2 Flow Rate FiO2 08/30/18 06:31 98.7 84 14 117/55 (75) 08/29/18 09:03 96 08/29/18 09:01 Room Air Current Medications Current Medications Acetaminophen (Tylenol Tab) 650 mg Q6HP PRN PO HEADACHE or DISCOMFORT Last administered on 08/30/18at 12:14; Start 08/27/18 at 11:30 Al Hydrox/Mg Hydrox/Simethicone (Mylanta) 30 ml Q4HP PRN PO HEARTBURN/INDIGESTION Last administered on 08/28/18at 18:26; Start 08/27/18 at 11:30 Bupropion HCl (Wellbutrin Xl) 150 mg DAILY PO Last administered on 08/30/18at 08:44; Start 08/29/18 at 09:00 Escitalopram Oxalate (Lexapro) 20 mg DAILY PO ; Start 08/31/18 at 09:00; Status UNV Folic Acid (Folic Acid) 1 mg DAILY PO Last administered on 08/30/18at 08:44; Start 08/28/18 at 09:00 Gabapentin (Neurontin) 400 mg TID PO Last administered on 08/30/18at 08:44; Start 08/29/18 at 16:00 Home Med (Med Rec Complete!) ASDIRECTED XX ; Start 08/27/18 at 12:15; Stop 08/27/18 at 12:19; Status DC Ibuprofen (Advil) 600 mg Q6HP PRN PO MODERATE PAIN (PS 5-7) Last administered on 08/30/18at 08:44; Start 08/29/18 at 21:15 Levothyroxine Sodium (Synthroid) 150 mcg DAILY@0600 PO Last administered on 08/30/18at 05:32; Start 08/28/18 at 13:00 Lorazepam (Ativan) 1 mg STAT STAT PO Last administered on 08/27/18at 12:11; Start 08/27/18 at 11:51; Stop 08/27/18 at 11:52; Status DC Lorazepam (Ativan) 1 mg TID PO Last administered on 08/28/18at 16:09; Start 08/28/18 at 09:00; Stop 08/28/18 at 19:05; Status DC Lorazepam (Ativan) 1 mg TID PO ; Start 08/30/18 at 16:00 Lorazepam (Ativan) 2 mg ASDIRECTED PRN PO SEE PROTOCOL Last administered on 08/28/18at 03:50; Start 08/27/18 at 11:30; Stop 08/28/18 at 09:14; Status DC Lorazepam (Ativan) 2 mg TID PO Last administered on 08/30/18at 08:44; Start 08/28/18 at 21:00; Stop 08/30/18 at 12:20; Status DC Lorazepam (Ativan) 2 mg TID PO ; Start 08/28/18 at 21:00; Status Cancel Magnesium Hydroxide (Milk Of Magnesia) 30 ml DAILYPRN PRN PO CONSTIPATION; Start 08/27/18 at 11:30 Multivitamins (Theragram-M) 1 tab DAILY PO Last administered on 08/30/18at 08:44; Start 08/28/18 at 09:00 Nicotine (Nicoderm Cq 14mg) 1 patch DAILY TD Last administered on 08/30/18at 08:44; Start 08/28/18 at 09:00 Ondansetron HCl (Zofran Odt) 4 mg Q4HP PRN PO NAUSEA OR VOMITING Last administered on 08/29/18at 08:58; Start 08/28/18 at 19:45 Thiamine HCl (Thiamine HCl) 100 mg BID PO Last administered on 08/29/18at 20:15; Start 08/27/18 at 13:00; Stop 08/29/18 at 21:01; Status DC Trazodone HCl (Desyrel) 50 mg QHSP PRN PO INSOMNIA Last administered on 08/29/18at 22:33; Start 08/27/18 at 11:30 Allergies Coded Allergies: No Known Allergies (Verified , 08/25/18) BOBBY TAYLOR MD August 30, 2018 14:10
[2018-08-30] MEDS: LORazepam 1 MG TAB PO SCH ×2 (15:24→20:36)
[2018-08-30] MEDS: ESCITALOPRAM OXALATE 10 MG TAB (LEXAPRO) PO SCH (15:25)
[2018-08-30 19:11] VITALS: BP 126/77
[2018-08-30] MEDS: traZODone 50 MG TAB PO PRN (22:05)
[2018-08-31] MEDS: BENZOCAINE 10% 9GM TUBE (ANBESOL) TOP PRN ×2 (03:08→17:42)
[2018-08-31] MEDS: IBUPROFEN 600 MG TAB PO PRN ×3 (03:08→17:41)
[2018-08-31] MEDS: ONDANSETRON 4 MG ORAL DISINTEGRATING TAB (Q0162 PER 1MG) PO PRN (03:08)
[2018-08-31] MEDS: LEVOTHYROXINE 150MCG TABLET (0.15MG) PO SCH (05:50)
[2018-08-31 06:55] VITALS: BP 123/73
[2018-08-31] MEDS: FOLIC ACID 1 MG TAB PO SCH (08:18)
[2018-08-31] MEDS: GABAPENTIN 400 MG CAP PO SCH ×3 (08:18→20:32)
[2018-08-31] MEDS: MULTIVITAMINS/MINERALS THERAP 1 TAB PO SCH (08:18)
[2018-08-31] MEDS: LORazepam 1 MG TAB PO SCH ×3 (08:18→20:33)
[2018-08-31] MEDS: buPROPion **XL** TABLET 150MG (WELLBUTRIN XL) PO SCH (08:18)
[2018-08-31] MEDS: ESCITALOPRAM OXALATE 10 MG TAB (LEXAPRO) PO SCH (08:18)
[2018-08-31] MEDS: NICOTINE 14 MG/24 HR TRANSDERMAL TD SCH (08:20)
--- NOTE | 2018-08-31 11:43 | MHIPNPDOC ---
[facility] Progress Note Progress Note DATE OF SERVICE: 08/31/18 HISTORY: Per Dr. Jensen: "Patient is a 38 -year-old Female. Patient states she recently got out of [facility] and began drinking again. She has been sleeping on people's couches and they all drink. Originally she had kidnapped her child in 2014 and was on probation. She was incarcerated a second time for failing probation because she was drinking and missing her probation appointments. She has been sad and anxious. "I want to get back on my meds. Lexapro 20 mg and was hoping I could have Wellbutrin to quit smoking". She s tates she had no medications after putting [facility] and due to insurance difficulties. She states she is unable to find a place to stay and has an upset stomach. She had lost her apartment when she was treated. She has been drinking since she was age 15. Whiskey apparently one and a half pints a day. Her last drink was 2 days before admission. She has been in inpatient alcohol treatment twice and psychiatric treatment. This being the second time. Her legal history is negative at this time, but her history is as described medical problems. She has sarcoidosis and hypothyroidism. Her surgical history is positive for a C- section and tubal ligation. She states her mother lives in [place] and has schizophrenia and alcoholism, and that her father was an alcoholic. She has never been sober and has also used opiates and pills. She was placed in a methadone program before [facility], but has had none since." VITAL SIGNS: See below. NEW TEST RESULTS: None. CURRENT MEDICATIONS: See below. MENTAL STATUS EXAMINATION: Patient is a 38-year old female, who is suffering from depression, noncompliance, history of incarceration and alcoholism. Speech: Is. Normal. Language skills are normal Thought processes including:. Thought content:. No gross psychotic thoughts. Abstract reasoning, and computati on:. Able to abstract. Description of associations: No loose associations. Description of abnormal or psychotic thoughts:. No psychotic thought. Judgment:, Poor. Insight:, Poor. Orientation: Intact 3. Recent and remote memory:. Intact. Attention span and concentration: Intact. Language:. Intact. Fund of knowledge: Complete. Mood: Good. Affect:, Congruent. DIAGNOSES: 1. Depression. 2. Poly substance abuse. 3. Homelessness. ASSESSMENT:Patient endorsing improved withdrawal symptoms, tolerating current ativan dose well and agreeable to continued titration off as withdrawal improves. continues to endorse anxiety, worrisome thoughts, and mood being up and down thru out the day. Agreeable to start abilify for mood stabilization and anxiety, risks/benefits discussed. Endorsing insomnia and asking to increase trazodone to help. She is also on Lexapro and Wellbutrin that she's tolerating well and finding beneficial. Hopes to move to a half-way to be away from the alcoholic acquaintances who she has been staying with. Denies SI/HI. MANAGEMENT PLAN:increase trazodone to 100mg qhs prn insomnia, start abilify for mood stabilization, decrease ativan to 1mg bid starting tomorrow. Medications: Wellbutrin Xl 150 mg DAILY Lexapro 20 mg DAILY Gabapentin 400 mg TID Ativan 1mg tid PO Last administered on 08/31/18at 08:18; Start 08/30/18 at 16:00 Trazodone 100 mg QHSP PRN PO INSOMNIA Abilify 5mg daily TIME SPENT:. 30 minutes. Vital Signs Vital Signs Date Time Temp Pulse Resp B/P (MAP) Pulse Ox O2 Delivery O2 Flow Rate FiO2 08/31/18 06:55 98.8 94 18 123/73 (90) 08/29/18 09:03 96 08/29/18 09:01 Room Air Current Medications Current Medications Acetaminophen (Tylenol Tab) 650 mg Q6HP PRN PO HEADACHE or DISCOMFORT Last administered on 08/30/18at 20:36; Start 08/27/18 at 11:30 Al Hydrox/Mg Hydrox/Simethicone (Mylanta) 30 ml Q4HP PRN PO HEARTBURN/INDIGESTION Last administered on 08/28/18at 18:26; Start 08/27/18 at 11:30 Benzocaine (Anbesol Gel) APPLY TO DENTAL GUM Q3HP PRN TOP PAIN Last administered on 08/31/18at 03:08; Start 08/30/18 at 18:00 Bupropion HCl (Wellbutrin Xl) 150 mg DAILY PO Last administered on 08/31/18at 08:18; Start 08/29/18 at 09:00 Escitalopram Oxalate (Lexapro) 20 mg DAILY PO Last administered on 08/31/18 08:18; Start 08/30/18 at 09:00 Folic Acid (Folic Acid) 1 mg DAILY PO Last administered on 08/31/18 08:18; Start 08/28/18 at 09:00 Gabapentin (Neurontin) 400 mg TID PO Last administered on 08/31/18 08:18; Start 08/29/18 at 16:00 Home Med (Med Rec Complete!) ASDIRECTED XX ; Start 08/27/18 at 12:15; Stop 08/27/18 at 12:19; Status DC Ibuprofen (Advil) 600 mg Q6HP PRN PO MODERATE PAIN (PS 5-7) Last administered on 08/31/18 03:08; Start 08/29/18 at 21:15 Levothyroxine Sodium (Synthroid) 150 mcg DAILY@0600 PO Last administered on 08/31/18 05:50; Start 08/28/18 at 13:00 Lorazepam (Ativan) 1 mg STAT STAT PO Last administered on 08/27/18at 12:11; Start 08/27/18 at 11:51; Stop 08/27/18 at 11:52; Status DC Lorazepam (Ativan) 1 mg TID PO Last administered on 08/28/18 16:09; Start 08/28/18 at 09:00; Stop 08/28/18 at 19:05; Status DC Lorazepam (Ativan) 1 mg TID PO Last administered on 08/31/18 08:18; Start 08/30/18 at 16:00 Lorazepam (Ativan) 2 mg ASDIRECTED PRN PO SEE PROTOCOL Last administered on 08/28/18 03:50; Start 08/27/18 at 11:30; Stop 08/28/18 at 09:14; Status DC Lorazepam (Ativan) 2 mg TID PO Last administered on 08/30/18at 08:44; Start 08/28/18 at 21:00; Stop 08/30/18 at 12:20; Status DC Lorazepam (Ativan) 2 mg TID PO ; Start 08/28/18 at 21:00; Status Cancel Magnesium Hydroxide (Milk Of Magnesia) 30 ml DAILYPRN PRN PO CONSTIPATION; Start 08/27/18 at 11:30 Multivitamins (Theragram-M) 1 tab DAILY PO Last administered on 08/31/18 08:18; Start 08/28/18 at 09:00 Nicotine (Nicoderm Cq 14mg) 1 patch DAILY TD Last administered on 08/31/18 08:20; Start 08/28/18 at 09:00 Ondansetron HCl (Zofran Odt) 4 mg Q4HP PRN PO NAUSEA OR VOMITING Last admini stered on 08/31/18 03:08; Start 08/28/18 at 19:45 Thiamine HCl (Thiamine HCl) 100 mg BID PO Last administered on 08/29/18 20:15; Start 08/27/18 at 13:00; Stop 08/29/18 at 21:01; Status DC Trazodone HCl (Desyrel) 50 mg QHSP PRN PO INSOMNIA Last administered on 08/30/18 22:05; Start 08/27/18 at 11:30 Allergies Coded Allergies: No Known Allergies (Verified , 08/25/18) JORDEN MERA DO August 31, 2018 11:42 am
--- NOTE | 2018-08-31 13:07 | HPEPDOC ---
General Date of Admission August 27, 2018 at 11:29 Date of Service: August 31, 2018 Attending Physician: REMEDIOS OROURKE MD Chief Complaint The patient is a 38-year-old female admitted with a reason for visit of Unspecified Depressive Disorder Etoh Abuse. Source: Patient, RN/MD Exam Limitations: No limitations, Clinical conditions Severity: Severe Associated Symptoms: Fever, Chills History of Present Illness Patient is a 38-year-old female, past medical history significant for hypothyroidism and sarcoidosis. Patient was admitted to inpatient psychiatric unit for management of acute on chronic depression, medical noncompliance, alcoholism. On assessment, she complains of toothache, which has been going on for a couple of weeks. She has been taking ibuprofen with some relief. Describes pain as stabbing and throbbing. Review of medical records show she had fever with a temperature 100.4 two days ago. She currently denies chills, fever, chest pain or shortness of breath. Home Medications Scheduled Levothyroxine Sodium (Synthroid) 150 Mcg Tablet, 150 MCG PO QAM, (Reported) Scheduled PRN Ibuprofen (Ibu-200) 200 Mg Tablet, 800 MG PO Q6H PRN for PAIN, (Reported) Allergies Coded Allergies: No Known Allergies (Verified , 08/25/18) Past Medical History Medical History Sarcoidosis. Hypothyroidism Depression. Polysubstance abuse-THC, Alcohol abuse. Surgical History Tubal ligation Family History Schizophrenia, alcoholism Social History * Smoker: less than 1 pack/day Alcohol: heavy Drugs: marijuana A-FIB/CHADSVASC A-FIB History Current/History of A-Fib/PAF?: No Current PO Anticoag Therapy: No Review of Systems Other systems A 10 point pertinent review of systems was completed, negative except as stated in the history of presenting illness. Physical Examination Other physical findings GENERAL: NAD SKIN : Warm, dry intact HEENT: Atraumatic, normocephalic OROPHHARYNX: moist mucous membranes, poor dentition, erythema to left upper gums CARDIOVASCULAR: Regular rate and rhythm, S1S2, no JVD, no edema, distal pulses + and palpable RESP: CTAB, no accessory muscle use noted ABDOMEN: BS+ non distended non tender MS: no joint deformities NEURO: Alert and oriented x 3, CN2-12 grossly intact PSYCH: no anxiety or agitation, appropriate mood and affect. Vital Signs Vital Signs Date Time Temp Pulse Resp B/P (MAP) Pulse Ox O2 Delivery O2 Flow Rate FiO2 08/31/18 06:55 98.8 94 18 123/73 (90) 08/29/18 09:03 96 08/29/18 09:01 Room Air Problems (1) Tooth ache Problem Text: -start augmentin for treatment of toothache -monitor for response to therapy -will need to be evaluated by dentist after discharge (2) Hypothyroid Status: Chronic Problem Text: -continue synthroid (3) Alcohol abuse Problem Text: -management by primary team (4) Acute depression Problem Text: -management by primary team Plan / VTE VTE Prophylaxis Ordered?: No VTE Exclusion Mechanical Proph: Low Risk for VTE KELLY JORGENSEN August 31, 2018 13:06
[2018-08-31] MEDS: AUGMENTIN 875 MG TAB PO SCH ×2 (13:18→20:32)
[2018-08-31 18:08] VITALS: BP 127/75
[2018-08-31] MEDS: traZODone 100 MG TAB PO PRN (20:32)
[2018-09-01] MEDS: LEVOTHYROXINE 150MCG TABLET (0.15MG) PO SCH (06:24)
[2018-09-01] MEDS: IBUPROFEN 600 MG TAB PO PRN ×3 (06:34→21:31)
[2018-09-01 06:35] VITALS: BP 135/69
[2018-09-01 07:12] LABS: HEMATOCRIT 35.5 % (36.0-47.0); HEMOGLOBIN 12.4 g/dl (12.0-15.5); MEAN CORPUSCULAR HEMOGLOBIN 32.2 pg (27.0-33.0); MEAN CORPUSCULAR HGB CONC 34.9 g/dl (32.0-36.5); MEAN CORPUSCULAR VOLUME 92.2 fl (80.0-96.0); PLATELET COUNT, AUTOMATED 140 10^3/uL (150-450); RED BLOOD COUNT 3.85 10^6/uL (4.00-5.40)
[2018-09-01 07:40] LABS: ALBUMIN 3.6 GM/DL (3.2-5.2); ALT/SGPT 40 U/L (12-78); BILIRUBIN,TOTAL 0.5 MG/DL (0.2-1.0); BLOOD UREA NITROGEN 13 MG/DL (7-18); CALCIUM LEVEL 8.2 MG/DL (8.5-10.1); CARBON DIOXIDE LEVEL 24 MEQ/L (21-32); CHLORIDE LEVEL 109 MEQ/L (98-107); CREATININE FOR GFR 1.04 MG/DL (0.55-1.30); GLOMERULAR FILTRATION RATE > 60.0 (>60); GLUCOSE, FASTING 95 MG/DL (70-100); POTASSIUM SERUM 4.5 MEQ/L (3.5-5.1); SODIUM LEVEL 141 MEQ/L (136-145); TOTAL PROTEIN 6.6 GM/DL (6.4-8.2)
[2018-09-01] MEDS: NICOTINE 14 MG/24 HR TRANSDERMAL TD SCH (08:09)
[2018-09-01] MEDS: MULTIVITAMINS/MINERALS THERAP 1 TAB PO SCH (08:09)
[2018-09-01] MEDS: GABAPENTIN 400 MG CAP PO SCH ×3 (08:09→20:29)
[2018-09-01] MEDS: FOLIC ACID 1 MG TAB PO SCH (08:09)
[2018-09-01] MEDS: buPROPion **XL** TABLET 150MG (WELLBUTRIN XL) PO SCH (08:09)
[2018-09-01] MEDS: LORazepam 1 MG TAB PO SCH (08:09)
[2018-09-01] MEDS: AUGMENTIN 875 MG TAB PO SCH ×2 (08:09→20:29)
[2018-09-01] MEDS: ESCITALOPRAM OXALATE 10 MG TAB (LEXAPRO) PO SCH (08:09)
[2018-09-01] MEDS ORDERED: BREXPIPRAZOLE 0.5MG TABLET (REXULTI) PO ONE (10:15)
[2018-09-01] MEDS ORDERED: BENZTROPINE 0.5 MG TAB PO ONE (10:15)
--- NOTE | 2018-09-01 10:15 | MHIPNPDOC ---
[facility] Progress Note Progress Note DATE OF SERVICE: 09/01/18 HISTORY: Per Dr. Jensen: "Patient is a 38 -year-old Female. Patient states she recently got out of alf and began drinking again. She has been sleeping on people's couches and they all drink. Originally she had kidnapped her child in 2014 and was on probation. She was incarcerated a second time for failing probation because she was drinking and missing her probation appointments. She has been sad and anxious. "I want to get back on my meds. Lexapro 20 mg and was hoping I could have Wellbutrin to quit smoking". She states she had no medications after putting alf and due to insurance difficulties. She states she is unable to find a place to stay and has an upset stomach. She had lost her apartment when she was treated. She has been drinking since she was age 15. Whiskey apparently one and a half pints a day. Her last drink was 2 days before admission. She has been in inpatient alcohol treatment twice and psychiatric treatment. This being the second time. Her legal history is negative at this time, but her history is as described medical problems. She has sarcoidosis and hypothyroidism. Her surgical history is positive for a C- section and tubal ligation. She states her mother lives in [place] and has schizophrenia and alcoholism, and that her father was an alcoholic. She has never been sober and has also used opiates and pills. She was placed in a methadone program before alf, but has had none since." VITAL SIGNS: See below. NEW TEST RESULTS: None. CURRENT MEDICATIONS: See below. MENTAL STATUS EXAMINATION: Patient is a 38-year old female, who is suffering from depression, noncompliance, history of incarceration and alcoholism. Speech: Is. Normal. Language skills are normal Thought processes including:. Thought content:. No gross psychotic thoughts. Abstract reasoning, and computation:. Able to abstract. Description of associations: No loose associations. Description of abnormal or psychotic thoughts:. No psychotic thought. Judgment:, Poor. Insight:, Poor. Orientation: Intact 3. Recent and remote memory:. Intact. Attention span and concentration: Intact. Language:. Intact. Fund of knowledge: Complete. Mood: Good. Affect:, Congruent. DIAGNOSES: 1. Depression. 2. Poly substance abuse. ASSESSMENT:Patient endorsing improved withdrawal symptoms, tolerating current ativan dose well and agreeable to continued titration off as withdrawal improves. Continues to endorse anxiety, worrisome thoughts, and mood being up and down thru out the day. Endorsing side effects from abilify of restless legs and fatigue, doesn't want to take again. Agreeable to switching to rexulti after risks/benefits discussed. Improved insomnia and with increase trazodone to help. She is also on Lexapro and Wellbutrin that she's tolerating well and finding beneficial. Hopes to move to a half-way to be away from the alcoholic acquaintances who she has been staying with. Denies SI/HI. MANAGEMENT PLAN:increase trazodone to 100mg qhs prn insomnia, d/c abilify for mood stabilization, start rexulti 0.5mg daily. decrease ativan to 0.5mg tid starting tomorrow. start cogentin 0.5mg daily for eps prevention Medications: Wellbutrin Xl 150 mg DAILY Lexapro 20 mg DAILY Gabapentin 400 mg TID Ativan 0.5mg tid Trazodone 100 mg QHSP PRN PO INSOMNIA rexulti 0.5mg daily cogentin 0.5mg daily TIME SPENT:. 30 minutes. Vital Signs Vital Signs Date Time Temp Pulse Resp B/P (MAP) Pulse Ox O2 Delivery O2 Flow Rate FiO2 09/01/18 06:35 98.6 92 16 135/69 (91) 08/29/18 09:03 96 08/29/18 09:01 Room Air Laboratory Data 24H Labs Laboratory Tests 2 09/01/18 06:57: Nucleated Red Blood Cells % (auto) 0.0, Anion Gap 8, Glomerular Filtration Rate > 60.0, Blood Urea Nitrogen 13, Creatinine 1.04, Sodium Level 141, Potassium Level 4.5, Chloride Level 109H, Carbon Dioxide Level 24, Calcium Level 8.2L, Aspartate Amino Transf (AST/SGOT) 31, Alanine Aminotransferase (ALT/SGPT) 40, Alkaline Phosphatase 86, Total Bilirubin 0.5, Total Protein 6.6, Albumin 3.6, Albumin/Globulin Ratio 1.20 CBC/BMP Laboratory Tests 09/01/18 06:57 Red Blood Count 3.85 L, Mean Corpuscular Volume 92.2, Mean Corpuscular Hemoglobin 32.2, Mean Corpuscular Hemoglobin Concent 34.9, Red Cell Distribution Width 14.8 H, Calcium Level 8.2 L, Aspartate Amino Transf (AST/SGOT) 31, Alanine Aminotransferase (ALT/SGPT) 40, Alkaline Phosphatase 86, Total Bilirubin 0.5, Total Protein 6.6, Albumin 3.6 Current Medications Current Medications Acetaminophen (Tylenol Tab) 650 mg Q6HP PRN PO HEADACHE or DISCOMFORT Last administered on 08/30/18at 20:36; Start 08/27/18 at 11:30 Al Hydrox/Mg Hydrox/Simethicone (Mylanta) 30 ml Q4HP PRN PO HEARTBURN/INDIGESTION Last administered on 08/28/18at 18:26; Start 08/27/18 at 11:30 Amoxicillin/ Clavulanate Potassium (Augmentin) 875 mg BID PO Last administered on 09/01/18 08:09; Start 08/31/18 at 09:00; Stop 09/10/18 at 08:59 Aripiprazole (AbiLIFY) 5 mg DAILY PO ; Start 09/01/18 at 09:00 Benzocaine (Anbesol Gel) APPLY TO DENTAL GUM Q3HP PRN TOP PAIN Last admin istered on 08/31/18at 17:42; Start 08/30/18 at 18:00 Bupropion HCl (Wellbutrin Xl) 150 mg DAILY PO Last administered on 09/01/18 08:09; Start 08/29/18 at 09:00 Escitalopram Oxalate (Lexapro) 20 mg DAILY PO Last administered on 09/01/18at 08:09; Start 08/30/18 at 09:00 Folic Acid (Folic Acid) 1 mg DAILY PO Last administered on 09/01/18 08:09; Start 08/28/18 at 09:00 Gabapentin (Neurontin) 400 mg TID PO Last administered on 09/01/18 08:09; Start 08/29/18 at 16:00 Home Med (Med Rec Complete!) ASDIRECTED XX ; Start 08/27/18 at 12:15; Stop 08/27/18 at 12:19; Status DC Ibuprofen (Advil) 600 mg Q6HP PRN PO MODERATE PAIN (PS 5-7) Last administered on 09/01/18at 06:34; Start 08/29/18 at 21:15 Levothyroxine Sodium (Synthroid) 150 mcg DAILY@0600 PO Last administered on 09/01/18 06:24; Start 08/28/18 at 13:00 Lorazepam (Ativan) 1 mg STAT STAT PO Last administered on 08/27/18 12:11; Start 08/27/18 at 11:51; Stop 08/27/18 at 11:52; Status DC Lorazepam (Ativan) 1 mg TID PO Last administered on 08/28/18 16:09; Start 08/28/18 at 09:00; Stop 08/28/18 at 19:05; Status DC Lorazepam (Ativan) 1 mg TID PO Last administered on 09/01/18 08:09; Start 08/30/18 at 16:00 Lorazepam (Ativan) 2 mg ASDIRECTED PRN PO SEE PROTOCOL Last administered on 08/28/18 03:50; Start 08/27/18 at 11:30; Stop 08/28/18 at 09:14; Status DC Lorazepam (Ativan) 2 mg TID PO Last administered on 08/30/18 08:44; Start 08/28/18 at 21:00; Stop 08/30/18 at 12:20; Status DC Lorazepam (Ativan) 2 mg TID PO ; Start 08/28/18 at 21:00; Status Cancel Magnesium Hydroxide (Milk Of Magnesia) 30 ml DAILYPRN PRN PO CONSTIPATION; Start 08/27/18 at 11:30 Multivitamins (Theragram-M) 1 tab DAILY PO Last administered on 09/01/18 08:09; Start 08/28/18 at 09:00 Nicotine (Nicoderm Cq 14mg) 1 patch DAILY TD Last administered on 09/01/18 08:09; Start 08/28/18 at 09:00 Ondansetron HCl (Zofran Odt) 4 mg Q4HP PRN PO NAUSEA OR VOMITING Last administered on 08/31/18 03:08; Start 08/28/18 at 19:45 Thiamine HCl (Thiamine HCl) 100 mg BID PO Last administered on 08/29/18 20:15; Start 08/27/18 at 13:00; Stop 08/29/18 at 21:01; Status DC Trazodone HCl (Desyrel) 50 mg QHSP PRN PO INSOMNIA Last administered on 08/30/18at 22:05; Start 08/27/18 at 11:30; Stop 08/31/18 at 11:35; Status DC Trazodone HCl (Desyrel) 100 mg QHSP PRN PO INSOMNIA Last administered on 08/31/18at 20:32; Start 08/31/18 at 11:30 Allergies Coded Allergies: No Known Allergies (Verified , 08/25/18) JORDEN MERA DO September 01, 2018 09:18
--- NOTE | 2018-09-01 12:09 | IPNPDOC ---
Subjective Date Seen The patient was seen on 09/01/18. Subjective Chief Complaint/HPI Patient is a 38-year-old female, past medical history significant for hypothyroidism and sarcoidosis. Patient was admitted to inpatient psychiatric unit for management of acute on chronic depression, medical noncompliance, alcoholism. Events since last encounter Today she states tooth ache is better but still persistent. denies chills fever. Requesting medication to counter possible yeast infection she will have with antibiotic therapy Objective Physical Examination Other physical findings GENERAL: NAD SKIN : Warm, dry intact HEENT: Atraumatic, normocephalic OROPHHARYNX: moist mucous membranes, poor dentition, no erythema to gums CARDIOVASCULAR: Regular rate and rhythm, S1S2, no JVD, no edema, distal pulses + and palpable RESP: CTAB, no accessory muscle use noted ABDOMEN: BS+ non distended non tender MS: no joint deformities NEURO: Alert and oriented x 3, CN2-12 grossly intact PSYCH: no anxiety or agitation, appropriate mood and affect. Assessment /Plan Problems (1) Tooth ache Problem Text: -continue augmentin -prescribe fluconazole for fungal infection prevention -will need to be evaluated by dentist after discharge (2) Hypothyroid Status: Chronic Problem Text: -continue synthroid (3) Alcohol abuse Problem Text: -management by primary team (4) Acute depression Problem Text: -management by primary team Plan/VTE VTE Prophylaxis Ordered?: No VTE Exclusion Mechanical Proph: Low Risk for VTE VS, I&O, 24H, Fishbone Vital Signs/I&O Vital Signs Date Time Temp Pulse Resp B/P (MAP) Pulse Ox O2 Delivery O2 Flow Rate FiO2 09/01/18 06:35 98.6 92 16 135/69 (91) 08/29/18 09:03 96 08/29/18 09:01 Room Air Laboratory Data 24H LABS Laboratory Tests 2 09/01/18 06:57: Nucleated Red Blood Cells % (auto) 0.0, Anion Gap 8, Glomerular Filtration Rate > 60.0, Blood Urea Nitrogen 13, Creatinine 1.04, Sodium Level 141, Potassium Level 4.5, Chloride Level 109H, Carbon Dioxide Level 24, Calcium Level 8.2L, Aspartate Amino Transf (AST/SGOT) 31, Alanine Aminotransferase (ALT/SGPT) 40, Alkaline Phosphatase 86, Total Bilirubin 0.5, Total Protein 6.6, Albumin 3.6, Albumin/Globulin Ratio 1.20 CBC/BMP Laboratory Tests 09/01/18 06:57 Red Blood Count 3.85 L, Mean Corpuscular Volume 92.2, Mean Corpuscular Hemoglobin 32.2, Mean Corpuscular Hemoglobin Concent 34.9, Red Cell Distribution Width 14.8 H, Calcium Level 8.2 L, Aspartate Amino Transf (AST/SGOT) 31, Alanine Aminotransferase (ALT/SGPT) 40, Alkaline Phosphatase 86, Total Bilirubin 0.5, Total Protein 6.6, Albumin 3.6 KELLY JORGENSEN September 01, 2018 12:09
[2018-09-01] MEDS: BENZOCAINE 10% 9GM TUBE (ANBESOL) TOP PRN (14:57)
[2018-09-01] MEDS: ACETAMINOPHEN TAB 650MG DOSE (2X325MG) PO PRN (14:57)
[2018-09-01] MEDS: LORazepam 0.5 MG TAB PO SCH ×2 (14:58→20:29)
[2018-09-01 18:05] VITALS: BP 132/85
[2018-09-01] MEDS: traZODone 100 MG TAB PO PRN (21:30)
[2018-09-02] MEDS: BENZOCAINE 10% 9GM TUBE (ANBESOL) TOP PRN ×2 (04:34→16:54)
[2018-09-02] MEDS: IBUPROFEN 600 MG TAB PO PRN ×3 (04:34→20:35)
[2018-09-02] MEDS: LEVOTHYROXINE 150MCG TABLET (0.15MG) PO SCH (06:07)
[2018-09-02] MEDS: MAALOX 30 ML SUSP *UDC PO PRN (06:44)
[2018-09-02 06:46] VITALS: BP 122/74
[2018-09-02] MEDS: buPROPion **XL** TABLET 150MG (WELLBUTRIN XL) PO SCH (08:11)
[2018-09-02] MEDS: BENZTROPINE 0.5 MG TAB PO SCH (08:11)
[2018-09-02] MEDS: GABAPENTIN 400 MG CAP PO SCH (08:11)
[2018-09-02] MEDS: MULTIVITAMINS/MINERALS THERAP 1 TAB PO SCH (08:11)
[2018-09-02] MEDS: FOLIC ACID 1 MG TAB PO SCH (08:11)
[2018-09-02] MEDS: ESCITALOPRAM OXALATE 10 MG TAB (LEXAPRO) PO SCH (08:11)
[2018-09-02] MEDS: NICOTINE 14 MG/24 HR TRANSDERMAL TD SCH (08:11)
[2018-09-02] MEDS: BREXPIPRAZOLE 0.5MG TABLET (REXULTI) PO SCH (08:11)
[2018-09-02] MEDS: AUGMENTIN 875 MG TAB PO SCH ×2 (08:11→20:36)
[2018-09-02] MEDS: LORazepam 0.5 MG TAB PO SCH ×2 (08:11→20:35)
--- NOTE | 2018-09-02 09:48 | MHIPNPDOC ---
[facility] Progress Note Progress Note DATE OF SERVICE: 09/02/18 HISTORY:Per Dr. Jensen: "Patient is a 38 -year-old Female. Patient states she recently got out of snf and began drinking again. She has been sleeping on people's couches and they all drink. Originally she had kidnapped her child in 2014 and was on probation. She was incarcerated a second time for failing probation because she was drinking and missing her probation appointments. She has been sad and anxious. "I want to get back on my meds. Lexapro 20 mg and was hoping I could have Wellbutrin to quit smoking". She st ates she had no medications after putting snf and due to insurance difficulties. She states she is unable to find a place to stay and has an upset stomach. She had lost her apartment when she was treated. She has been drinking since she was age 15. Whiskey apparently one and a half pints a day. Her last drink was 2 days before admission. She has been in inpatient alcohol treatment twice and psychiatric treatment. This being the second time. Her legal history is negative at this time, but her history is as described medical problems. She has sarcoidosis and hypothyroidism. Her surgical history is positive for a C- section and tubal ligation. She states her mother lives in [place] and has schizophrenia and alcoholism, and that her father was an alcoholic. She has never been sober and has also used opiates and pills. She was placed in a methadone program before snf, but has had none since." VITAL SIGNS: See below. NEW TEST RESULTS: None. CURRENT MEDICATIONS: See below. MENTAL STATUS EXAMINATION: Patient is a 38-year old female, who is suffering from depression, noncompliance, history of incarceration and alcoholism. Speech: Is. Normal. Language skills are normal Thought processes including:. Thought content:. No gross psychotic thoughts. Abstract reasoning, and computation:. Able to abstract. Description of associations: No loose associations. Description of abnormal or psychotic thoughts:. No psychotic thought. Judgment:, Poor. Insight:, Poor. Orientation: Intact 3. Recent and remote memory:. Intact. Attention span and concentration: Intact. Language:. Intact. Fund of knowledge: Complete. Mood: Good. Affect:, Congruent. DIAGNOSES: 1. Depression. 2. Poly substance abuse. ASSESSMENT:Patient endorsing improved withdrawal symptoms, tolerating current ativan dose well and agreeable to continued titration off as withdrawal improves. Continues to endorse anxiety, worrisome thoughts causing insomnia. Asking to have gabapentin increased to aid anxiety and told ok. Agreeable to starting seroquel qhs to improve anxiety related insomnia. Denies side effects from rexulti and states she feels it's beneficial and is tolerating it well. Car increased appetite but was over ordering on daily menus (2 of everything) which is more than enough for pt who is also concerned about weight gain and had to advised pt that she can only have 1 item each on daily menu as would be unhealthy and mostly like have weight gain if continues to order as she is. She appreciate this and stated most of the time she could eat it anyway. She is also on Lexapro and Wellbutrin that she's tolerating well and finding beneficial. Hopes to move to a [facility] to be away from the alcoholic acquaintances who she has been staying with. Denies SI/HI. MANAGEMENT PLAN:start seroquel 25mg qhs, increase gabapentin to 600mg tid, change ativan to 0.5mg bid to continue titration off Medications: Wellbutrin Xl 150 mg DAILY Lexapro 20 mg DAILY Gabapentin 600 mg TID Ativan 0.5mg bid seroquel 25mg qhs Trazodone 100 mg QHSP PRN PO INSOMNIA rexulti 0.5mg daily cogentin 0.5mg daily TIME SPENT: 30 minutes. Vital Signs Vital Signs Date Time Temp Pulse Resp B/P (MAP) Pulse Ox O2 Delivery O2 Flow Rate FiO2 09/02/18 06:46 97.2 86 14 122/74 (90) 08/29/18 09:03 96 08/29/18 09:01 Room Air Current Medications Current Medications Acetaminophen (Tylenol Tab) 650 mg Q6HP PRN PO HEADACHE or DISCOMFORT Last administered on 09/01/18at 14:57; Start 08/27/18 at 11:30 Al Hydrox/Mg Hydrox/Simethicone (Mylanta) 30 ml Q4HP PRN PO HEARTBURN/INDIGESTION Last administered on 09/02/18at 06:44; Start 08/27/18 at 11:30 Amoxicillin/ Clavulanate Potassium (Augmentin) 875 mg BID PO Last administered on 09/02/18 08:11; Start 08/31/18 at 09:00; Stop 09/10/18 at 08:59 Aripiprazole (AbiLIFY) 5 mg DAILY PO ; Start 09/01/18 at 09:00; Stop 09/01/18 at 10:14; Status DC Benzocaine (Anbesol Gel) APPLY TO DENTAL GUM Q3HP PRN TOP PAIN Last administered on 09/02/18 04:34; Start 08/30/18 at 18:00 Benztropine Mesylate (Cogentin) 0.5 mg DAILY PO Last administered on 09/02/18 08:11; Start 09/02/18 at 09:00 Brexpiprazole (Rexulti) 0.5 mg DAILY PO Last administered on 09/02/18 08:11; Start 09/02/18 at 09:00 Bupropion HCl (Wellbutrin Xl) 150 mg DAILY PO Last administered on 09/02/18 08:11; Start 08/29/18 at 09:00 Escitalopram Oxalate (Lexapro) 20 mg DAILY PO Last administered on 09/02/18 08:11; Start 08/30/18 at 09:00 Folic Acid (Folic Acid) 1 mg DAILY PO Last administered on 09/02/18 08:11; Start 08/28/18 at 09:00 Gabapentin (Neurontin) 400 mg TID PO Last administered on 09/02/18 08:11; Start 08/29/18 at 16:00 Home Med (Med Rec Complete!) ASDIRECTED XX ; Start 08/27/18 at 12:15; Stop 08/27/18 at 12:19; Status DC Ibuprofen (Advil) 600 mg Q6HP PRN PO MODERATE PAIN (PS 5-7) Last administered on 09/02/18 04:34; Start 08/29/18 at 21:15 Levothyroxine Sodium (Synthroid) 150 mcg DAILY@0600 PO Last administered on 09/02/18 06:07; Start 08/28/18 at 13:00 Lorazepam (Ativan) 0.5 mg TID PO Last administered on 09/02/18 08:11; Start 09/01/18 at 16:00 Lorazepam (Ativan) 1 mg STAT STAT PO Last administered on 08/27/18 12:11; Start 08/27/18 at 11:51; Stop 08/27/18 at 11:52; Status DC Lorazepam (Ativan) 1 mg TID PO Last administered on 08/28/18 16:09; Start 08/28/18 at 09:00; Stop 08/28/18 at 19:05; Status DC Lorazepam (Ativan) 1 mg TID PO Last administered on 09/01/18 08:09; Start 08/30/18 at 16:00; Stop 09/01/18 at 10:16; Status DC Lorazepam (Ativan) 2 mg ASDIRECTED PRN PO SEE PROTOCOL Last administered on 08/28/18 03:50; Start 08/27/18 at 11:30; Stop 08/28/18 at 09:14; Status DC Lorazepam (Ativan) 2 mg TID PO Last administered on 08/30/18 08:44; Start 08/28/18 at 21:00; Stop 08/30/18 at 12:20; Status DC Lorazepam (Ativan) 2 mg TID PO ; Start 08/28/18 at 21:00; Status Cancel Magnesium Hydroxide (Milk Of Magnesia) 30 ml DAILYPRN PRN PO CONSTIPATION; Start 08/27/18 at 11:30 Multivitamins (Theragram-M) 1 tab DAILY PO Last administered on 09/02/18 08:11; Start 08/28/18 at 09:00 Nicotine (Nicoderm Cq 14mg) 1 patch DAILY TD Last administered on 09/02/18 08:11; Start 08/28/18 at 09:00 Ondansetron HCl (Zofran Odt) 4 mg Q4HP PRN PO NAUSEA OR VOMITING Last administered on 08/31/18 03:08; Start 08/28/18 at 19:45 Thiamine HCl (Thiamine HCl) 100 mg BID PO Last administered on 08/29/18 20:15; Start 08/27/18 at 13:00; Stop 08/29/18 at 21:01; Status DC Trazodone HCl (Desyrel) 50 mg QHSP PRN PO INSOMNIA Last administered on 08/30/18 22:05; Start 08/27/18 at 11:30; Stop 08/31/18 at 11:35; Status DC Trazodone HCl (Desyrel) 100 mg QHSP PRN PO INSOMNIA Last administered on 09/01/18at 21:30; Start 08/31/18 at 11:30 Allergies Coded Allergies: No Known Allergies (Verified , 08/25/18) JORDEN MERA DO September 02, 2018 09:28
[2018-09-02] MEDS ORDERED: FLUCONAZOLE 50MG TABLET PO ONE (14:00)
[2018-09-02] MEDS: GABAPENTIN 300 MG CAP PO SCH ×2 (15:46→20:35)
[2018-09-02] MEDS: ACETAMINOPHEN TAB 650MG DOSE (2X325MG) PO PRN (16:53)
[2018-09-02 18:11] VITALS: BP 143/81
[2018-09-02] MEDS: traZODone 100 MG TAB PO PRN (20:35)
[2018-09-02] MEDS ORDERED: QUEtiapine FUMARATE 25 MG TAB PO SCH (21:00)
[2018-09-03] MEDS: LEVOTHYROXINE 150MCG TABLET (0.15MG) PO SCH (06:02)
[2018-09-03] MEDS: BENZOCAINE 10% 9GM TUBE (ANBESOL) TOP PRN ×2 (06:15→09:29)
[2018-09-03] MEDS: IBUPROFEN 600 MG TAB PO PRN (06:18)
[2018-09-03 06:24] VITALS: BP 116/65
[2018-09-03] MEDS: NICOTINE 14 MG/24 HR TRANSDERMAL TD SCH (08:19)
[2018-09-03] MEDS: buPROPion **XL** TABLET 150MG (WELLBUTRIN XL) PO SCH (08:19)
[2018-09-03] MEDS: LORazepam 0.5 MG TAB PO SCH (08:19)
[2018-09-03] MEDS: BENZTROPINE 0.5 MG TAB PO SCH (08:19)
[2018-09-03] MEDS: AUGMENTIN 875 MG TAB PO SCH (08:19)
[2018-09-03] MEDS: GABAPENTIN 300 MG CAP PO SCH (08:20)
[2018-09-03] MEDS: ESCITALOPRAM OXALATE 10 MG TAB (LEXAPRO) PO SCH (08:20)
[2018-09-03] MEDS: FOLIC ACID 1 MG TAB PO SCH (08:20)
[2018-09-03] MEDS: MULTIVITAMINS/MINERALS THERAP 1 TAB PO SCH (08:20)
[2018-09-03] MEDS: BREXPIPRAZOLE 0.5MG TABLET (REXULTI) PO SCH (08:20)
[2018-09-03] MEDS ORDERED: TRAZ10TA PO (09:02)
[2018-09-03] MEDS ORDERED: BENZ0.5T PO (09:02)
[2018-09-03] MEDS ORDERED: REXU1TAB2 PO (09:02)
[2018-09-03] MEDS ORDERED: QUET1TAB7 PO (09:02)
[2018-09-03] MEDS ORDERED: BUPR150T3 PO (09:02)
[2018-09-03] MEDS ORDERED: GABA-843 PO (09:02)
[2018-09-03] MEDS ORDERED: ESCI10TA2 PO (09:02)
--- NOTE | 2018-09-03 09:03 | MHDSPDOC ---
[facility] Discharge Summary Discharge Summary DATE OF ADMISSION: August 27, 2018 at 11:29 DATE OF DISCHARGE: September 03, 2018 DISCHARGE DIAGNOSES: 1. Depression. 2. alcohol use d/o - severe REASON FOR ADMISSION: Per Dr. Jensen: "Patient is a 38 -year-old Female. Patient states she recently got out of intermediate and began drinking again. She has been sleeping on people's couches and they all drink. Originally she had kidnapped her child in 2014 and was on probation. She was incarcerated a second time for failing probation because she was drinking and missing her probation appointments. She has been sad and anxious. "I want to get back on my meds. Lexapro 20 mg and was hoping I could have Wellbutrin to quit smoking". She states she had no medications after putting intermediate and due to insurance difficulties. She states she is unable to find a place to stay and has an upset stomach. She had lost her apartment when she was treated. She has been drinking since she was age 15. Whiskey apparently one and a half pints a day. Her last drink was 2 days before admission. She has been in inpatient alcohol treatment twice and psychiatric treatment. This being the second time. Her legal history is negative at this time, but her history is as described medical problems. She has sarcoidosis and hypothyroidism. Her surgical history is positive for a C- section and tubal ligation. She states her mother lives in [place] and has schizophrenia and alcoholism, and that her father was an alcoholic. She has never been sober and has also used opiates and pills. She was placed in a methadone program before intermediate, but has had none since." CONSULTANTS INVOLVED: none TREATMENT AND PROGRESS ON THE UNIT: Pt was admitted to [facility], seen for psychiatric assessment and restarted on her outpatient wellbutrin xl 150mg daily and gabapentin increased to 600mg tid for anxiety. She was started on lexapro 20mg daily for for depression, seroquel 25mg qhs for anxiety, rexulti 0.5mg for mood stabilization, and cogentin 0.5mg daily for eps. She was provided trazodone 100mg qhs prn insomnia. Pt found her medications beneficial and tolerated them well. She was detoxed off of alcohol with an ativan titration to none that she tolerated well and her alcohol withdrawal symptoms improved to none. She attended groups daily during her stay. Her symptoms improved with treatment. On day of discharge she denied depression, anxiety, insomnia, SI/HI, hallucinations, delusions. She was discharged home to her boyfriend's home after family meeting with her boyfriend with follow-up at [facility] addiction services. She felt safe for discharge. DISCHARGE ASSESSMENT: Pt seen and states that her mood is good and that she's looking forward to going to her boyfriend's home today who is supportive. States's her medication are beneficial and she's tolerated them well, likes them especially the rexulti. States she's being social on the milieu which is beneficial. States she slept well last night. Denies alcohol withdrawal symptoms. She is attending groups and finding them helpful. She denies depression, anxiety, insomnia, SI/HI, hallucinations, delusions. Pt feels safe to be discharged home to her boyfriend's. MENTAL STATUS EXAMINATION ON DISCHARGE: Patient is a 38-year old female, who is suffering from depression, noncompliance, history of incarceration and alcoholism all improved currently Speech: Is. Normal. Language skills are normal Thought processes including: linear, logical, goal directed Thought content:. No gross psychotic thoughts. Abstract reasoning, and computation:. Able to abstract. Description of associations: No loose associations. Description of abnormal or psychotic thoughts:. No psychotic thought. Judgment: good Insight: good Orientation: Intact 3. Recent and remote memory:. Intact. Attention span and concentration: Intact. Language:. Intact. Fund of knowledge: Complete. Mood: Good. Affect: Congruent, bright MEDICATIONS ON DISCHARGE: Wellbutrin Xl 150 mg DAILY Lexapro 20 mg DAILY Gabapentin 600 mg TID seroquel 25mg qhs Trazodone 100 mg QHSP PRN PO INSOMNIA rexulti 0.5mg daily cogentin 0.5mg daily PLAN/FOLLOWUP ARRANGEMENTS:D/c home to boyfriend's house with follow-up at [facility] addiction services. The amount of time spent in the coordination of care for this patient was approximately 30 minutes. Vital Signs/I&Os Vital Signs Date Time Temp Pulse Resp B/P (MAP) Pulse Ox O2 Delivery O2 Flow Rate FiO2 09/03/18 06:24 99.3 86 14 116/65 (82) 08/29/18 09:03 96 08/29/18 09:01 Room Air Medications Scheduled Levothyroxine Sodium (Synthroid) 150 Mcg Tablet, 150 MCG PO QAM, (Reported) Scheduled PRN Ibuprofen (Ibu-200) 200 Mg Tablet, 800 MG PO Q6H PRN for PAIN, (Reported) Allergies Coded Allergies: No Known Allergies (Verified , 08/25/18) JORDEN MERA DO September 03, 2018 09:03
[2018-09-03] MEDS: ACETAMINOPHEN TAB 650MG DOSE (2X325MG) PO PRN (09:28)
== END 2018-09-03 13:10 | disposition home or self-care (01) | DRG 754 ==
LOC: M ED 07:26 → M ED INP 11:29 → M PSY 16:07
PROVIDERS: ADMIT Psychiatry & Neurology Child & Adolescent Psychiatry; ATTEND Psychiatry & Neurology Psychiatry
DX: F32.9 Major depressive disorder, single episode, unspecified (principal); F11.20 Opioid dependence, uncomplicated; F10.239 Alcohol dependence with withdrawal, unspecified; E03.9 Hypothyroidism, unspecified; F17.200 Nicotine dependence, unspecified, uncomplicated; K08.89 Other specified disorders of teeth and supporting structures; D86.9 Sarcoidosis, unspecified; Z59.0 Homelessness; Z65.2 Problems related to release from prison; Z81.1 Family history of alcohol abuse and dependence; Z81.3 Family history of other psychoactive substance abuse and dependence; Z79.899 Other long term (current) drug therapy; Z91.14 Patient's other noncompliance with medication regimen

== ENCOUNTER → 2018-10-04 | Outpatient (REF) | payer OTHER, MEDICAID ==
[~2018-10-04] MED LIST changes: +BENZ0.5T23 PO; +ESCI10TA2 PO; +GABA-843 PO; +IBUP200T45 PO; +QUET1TAB7 PO; +REXU1TAB2 PO; +SYNT150T PO; -TRAZ-160; +TRAZ-252; +TRAZ10TA PO
[2018-10-04 20:15] LABS: FREE T4 1.14 NG/DL (0.76-1.46); THYROID STIMULATING HORMONE 5.01 uIU/ML (0.358-3.740)
[2018-10-04 20:39] LABS: HEMOGLOBIN A1c 4.6 %
== END ==
LOC: M LAB REF 18:28
PROVIDERS: ATTEND Nurse Practitioner Family
DX: R73.01 Impaired fasting glucose (principal); E03.8 Other specified hypothyroidism

== ENCOUNTER 2018-10-28 10:27 | Day surgery (SDC) | payer OTHER ==
[~2018-10-28] VITALS: Ht 160 cm; Wt 89.8 kg
[~2018-10-28 10:27] MED LIST changes: +CETACAINE SPRAY 5GM As Ordered ONE; +CLON0.3T PO; +EPINEPHrine 1MG/10ML SYRINGE 1.5IN As Ordered ONE; +LIDOCAINE 1% MDV 20ML VIAL SQ PRN; +LIDOCAINE 1% SDV INJ 30 ML VIAL As Ordered ONE; +LIDOCAINE 2% INJ 100 MG/5 ML SDV (FOR ANES.) As Ordered ONE; +LIDOCAINE VISCOUS 2% SOLN 15ML UDC As Ordered ONE; +LR 1,000 ML IV ONE; +MIDAZOLAM INJ 2 MG/2 ML VIAL (J2250) As Ordered ONE; +ONDANSETRON 4MG/2ML VIAL (J2405) As Ordered ONE; +PROPOFOL 200 MG/20 ML VIAL As Ordered ONE; +ROCURONIUM BROMIDE 50 MG/5 ML VIAL As Ordered ONE; +THROMBIN SOLN 20,000 UNITS KIT As Ordered ONE; +TRAZ-163 PO; +dexameTHASONE 4 MG/ML 1ML VIAL (J1100) As Ordered ONE; +fentaNYL 100 MCG/2 ML INJECTION (J3010) As Ordered ONE
[2018-10-28] MEDS ORDERED: GLYCOPYRROLATE INJ 0.2 MG/ML 2 ML VIAL As Ordered ONE (11:20)
[2018-10-28] MEDS ORDERED: SUGAMMADEX SODIUM 500 MG/5 ML VIAL (BRIDION) As Ordered ONE (11:35)
[2018-10-28] MEDS ORDERED: ePHEDrine SULFATE 25 MG/5 ML(5MG/ML) SYRINGE As Ordered ONE (11:43)
[2018-10-28] MEDS ORDERED: PHENYLephrine HCL 500 MCG/5 ML (100MCG/ML) SYRINGE (J2370) As Ordered ONE (11:55)
[2018-10-28] MEDS ORDERED: ROCURONIUM BROMIDE 50 MG/5 ML VIAL As Ordered ONE (12:08)
--- NOTE | 2018-10-28 13:11 | ROOR ---
Patient Name: Deborah Webb Procedure Date: 10/28/2018 10:15 AM Date of : 1980 Admit Type: Outpatient Age: 38 Room: Main OR Note Status: Finalized Attending MD: Radha Hurst MD Procedure: Bronchoscopy Indications: Bilateral hilar lymphadenopathy, Mediastinal adenopathy, Paratracheal adenopathy, Abnormal CT scan of chest Providers: Radha Hurst MD (Doctor) Referring MD: 1. No Referring Physician 1. No Referring Physician, Admin. (Referring MD) Requesting Physician: Medicines: General Anesthesia, Cetacaine topical Complications: No immediate complications. Estimated blood loss: Minimal Procedure: Pre-Anesthesia Assessment: - Prior to the procedure, a History and Physical was performed, and patient medications and allergies were reviewed. The patient's tolerance of previous anesthesia was also reviewed. The risks and benefits of the procedure and the sedation options and risks were discussed with the patient. All questions were answered, and informed consent was obtained. Prior Anticoagulants: The patient has taken no previous anticoagulant or antiplatelet agents. ASA Grade Assessment: II - A patient with mild systemic disease. After reviewing the risks and benefits, the patient was deemed in satisfactory condition to undergo the procedure. The Bronchoscope was introduced through the mouth, via the endotracheal tube (the patient was intubated for the procedure) and advanced to the tracheobronchial tree of both lungs. The procedure was accomplished without difficulty. The patient tolerated the procedure well. Findings: Bilateral Lung Abnormalities: Scant, white secretions were found throughout the tracheobronchial tree. There was bulging of the posterior tracheal wall going towards the right main stem likely due to underlying mediastinal adenopathy. Few areas of nodular mucosa was found in the left mainstem bronchus, in the right lower lobe bronchus and right middle lobe. The right middle lobe had anatomic variation of three bronchial segments. Endobronchial biopsies were performed in the left mainstem bronchus near left upper lobe oriface using forceps and sent for histopathology examination. BAL was performed in the LLL lateral basal segments (B9) of the lung and sent for cell count, bacterial culture, and fungal & AFB analysis and cytology. The return was cloudy. BAL was performed in the RLL lateral basal segment (B9) of the lung and sent for cell count, bacterial culture, and fungal & AFB analysis and cytology. The return was cloudy. An endobronchial ultrasound endoscope was utilized in order to assist with fine needle aspiration in the right paratracheal area, in the subcarinal area and in the right hilum. Transbronchial needle aspiration of a lymph nodes was performed in the right paratracheal area, in the subcarinal area and in the right hilum using an Olympus EBUS-TBNA 21 gauge needle and sent for routine cytology and histopathology examination. The procedure was guided by ultrasound. Transbronchial needle aspiration technique was selected because the sampling site was not visible endoscopically. Impression: - Bilateral hilar lymphadenopathy - Mediastinal adenopathy - Paratracheal adenopathy - Abnormal CT scan of chest - Scant, white secretions were found throughout the tracheobronchial tree. - Extrinsic bulging of posterior tracheal wall secondary to posterior mass effect. - Few nodular mucosa was visualized in the left mainstem bronchus, in right lower lobe and right middle lobe. - An endobronchial biopsy was performed. - Bronchoalveolar lavage was performed in LLL - Bronchoalveolar lavage was performed in RLL - Endobronchial ultrasound was performed. - A transbronchial needle aspiration was performed of mediastinal and right hilar lymph nodes Recommendation: - Follow up with bronchoscopist as previously scheduled. - Await test results. Attending Participation: I personally performed the entire procedure. Radha Hurst MD 10/28/2018 1:11:11 PM Number of Addenda: 0 Note Initiated On: 10/28/2018 10:15 AM
[2018-10-28] MEDS ORDERED: PERCOCET 5MG/325MG TAB As Ordered ONE (13:13)
[2018-10-28] MEDS ORDERED: PERCOCET 5MG/325MG TAB PO PRN (13:30)
[2018-10-28] MEDS ORDERED: LR 1,000 ML IV SCH (13:30)
[2018-10-28] MEDS ORDERED: ONDANSETRON 4MG/2ML VIAL (J2405) IV PRN (13:30)
[2018-10-28] MEDS ORDERED: fentaNYL 100 MCG/2 ML INJECTION (J3010) IV PRN (13:30)
--- NOTE | 2018-10-28 13:44 | REP ---
CHEST, SINGLE VIEW: Single view of the chest is performed, status post bronchoscopy. No pneumothorax is seen. There is again evidence of mediastinal and hilar adenopathy. I see no evidence of acute infiltrate in either lung. Electronically Signed by Levy Beasley MD 10/28/2018 02:02 P
[2018-10-28 14:00] VITALS: BP 148/88
[2018-10-28 14:20] LABS: COLOR COLORLESS (COLORLESS); SOURCE LEFT LOWER LOBE
[2018-10-28 14:21] LABS: APPEARANCE TURBID (CLEAR)
[2018-10-28 14:42] LABS: COLOR COLORLESS (COLORLESS); SOURCE RIGHT LOWER LOBE
[2018-10-28 14:43] LABS: APPEARANCE TURBID (CLEAR)
== END 2018-10-28 14:15 | disposition home or self-care (01) ==
LOC: M SDC 10:27
PROVIDERS: ATTEND Internal Medicine Pulmonary Disease
DX: R91.8 Other nonspecific abnormal finding of lung field (principal); R59.0 Localized enlarged lymph nodes; J39.0 Retropharyngeal and parapharyngeal abscess; J98.4 Other disorders of lung; J98.09 Other diseases of bronchus, not elsewhere classified; R93.89 Abnormal findings on diagnostic imaging of other specified body structures; R09.89 Other specified symptoms and signs involving the circulatory and respiratory systems; E03.9 Hypothyroidism, unspecified; K21.9 Gastro-esophageal reflux disease without esophagitis; G40.909 Epilepsy, unspecified, not intractable, without status epilepticus; F41.9 Anxiety disorder, unspecified; F32.9 Major depressive disorder, single episode, unspecified; F17.210 Nicotine dependence, cigarettes, uncomplicated; F12.90 Cannabis use, unspecified, uncomplicated; Z79.899 Other long term (current) drug therapy
CPT/HCPCS: 31624; 31629; 31654; 71045; 87070; 87102; 87116; 87205; 87206; 88173; 88305; 88312; 88313; 89050; J1100; J2250; J2370; J2405; J3010

== ENCOUNTER 2018-11-12 10:51 | Emergency (ER) | payer OTHER ==
[~2018-11-12] VITALS: Ht 160 cm; Wt 91.0 kg
[~2018-11-12 10:51] MED LIST changes: -CETACAINE SPRAY 5GM As Ordered ONE; -EPINEPHrine 1MG/10ML SYRINGE 1.5IN As Ordered ONE; -LIDOCAINE 1% MDV 20ML VIAL SQ PRN; -LIDOCAINE 1% SDV INJ 30 ML VIAL As Ordered ONE; -LIDOCAINE 2% INJ 100 MG/5 ML SDV (FOR ANES.) As Ordered ONE; -LIDOCAINE VISCOUS 2% SOLN 15ML UDC As Ordered ONE; -LR 1,000 ML IV ONE; -MIDAZOLAM INJ 2 MG/2 ML VIAL (J2250) As Ordered ONE; -ONDANSETRON 4MG/2ML VIAL (J2405) As Ordered ONE; -PROPOFOL 200 MG/20 ML VIAL As Ordered ONE; -ROCURONIUM BROMIDE 50 MG/5 ML VIAL As Ordered ONE; -THROMBIN SOLN 20,000 UNITS KIT As Ordered ONE; -TRAZ-163 PO; +TRAZ-257 PO; -TRAZ10TA PO; +TRAZ1TAB12 PO; -dexameTHASONE 4 MG/ML 1ML VIAL (J1100) As Ordered ONE; -fentaNYL 100 MCG/2 ML INJECTION (J3010) As Ordered ONE
[2018-11-12 10:52] VITALS: BP 144/81
[2018-11-12] MEDS ORDERED: ALBU8.5H (11:00)
[2018-11-12] MEDS ORDERED: OMEP-218 (11:00)
[2018-11-12] MEDS ORDERED: PRED10TA2 (11:00)
[2018-11-13] MEDS ORDERED: MOUTHWASH (09:10)
[2018-11-13] MEDS ORDERED: amoxicillin (09:10)
[2018-11-13] MEDS ORDERED: KETO10TAB PO (10:37)
[2018-11-13] MEDS ORDERED: LIDO1SOL8 PO (10:39)
[2019-01-26] MEDS ORDERED: TRAZ1TAB12 PO (10:58)
[2019-02-12] MEDS ORDERED: TRAZ-257 PO (19:55)
[2019-02-14] MEDS ORDERED: TRAZ-257 PO (11:24)
[2019-03-12] MEDS ORDERED: PROP10TA56 PO ×2 (16:07→18:52)
[2019-03-12] MEDS ORDERED: LIOT25TA8 PO ×2 (16:07→18:52)
[2019-03-12] MEDS ORDERED: GABA600T4 PO (16:07)
[2019-03-12] MEDS ORDERED: METH10CO PO (16:07)
[2019-03-12] MEDS ORDERED: OMEP1CAP73 PO (18:52)
[2019-03-12] MEDS ORDERED: SYNT150T PO (18:52)
[2019-03-12] MEDS ORDERED: ESCI20TA PO (18:52)
[2019-03-12] MEDS ORDERED: TRAZ-189 PO (18:52)
[2019-03-12] MEDS ORDERED: PRED20TA PO (18:52)
[2019-03-12] MEDS ORDERED: IPRA0.00 INH (18:52)
[2019-03-16] MEDS ORDERED: QUET1TAB7 PO (10:02)
[2019-03-16] MEDS ORDERED: ESCI10TA2 PO (10:02)
[2019-03-16] MEDS ORDERED: NICO21PAT TD (10:02)
[2019-03-18] MEDS ORDERED: GABA-843 PO (11:05)
[2019-03-18] MEDS ORDERED: PROP10TA56 PO (11:05)
[2019-03-18] MEDS ORDERED: QUET1TAB7 PO (11:05)
[2019-03-18] MEDS ORDERED: TRAZ1TAB12 PO (11:05)
== END 2018-11-12 14:11 | disposition left against medical advice (07) ==
LOC: M ED 10:51
DX: Z53.29 Procedure and treatment not carried out because of patient's decision for other reasons (principal)

== ENCOUNTER 2018-11-13 09:02 | Emergency (ER) | payer OTHER ==
[~2018-11-13] VITALS: Ht 160 cm; Wt 88.2 kg
[~2018-11-13 09:02] MED LIST changes: +ALBU8.5H; +OMEP-218; +PRED10TA2; +TRAZ-163 PO; -TRAZ-257 PO; +TRAZ10TA PO; -TRAZ1TAB12 PO
[2018-11-13] MEDS ORDERED: amoxicillin (09:10)
[2018-11-13] MEDS ORDERED: MOUTHWASH (09:10)
[2018-11-13] MEDS ORDERED: ARTICAINE HCL/EPINEPHRINE 4%-1:200,000 1.7ML INJ (SEPTOCAINE) SM ONE (10:15)
[2018-11-13] MEDS ORDERED: KETO10TAB PO (10:37)
[2018-11-13] MEDS ORDERED: LIDO1SOL8 PO (10:39)
[2018-11-13 10:40] VITALS: BP 169/97
== END 2018-11-13 10:44 | disposition home or self-care (01) ==
LOC: M ED 09:02
DX: K08.89 Other specified disorders of teeth and supporting structures (principal); R56.9 Unspecified convulsions; D86.9 Sarcoidosis, unspecified; E03.9 Hypothyroidism, unspecified; F33.9 Major depressive disorder, recurrent, unspecified; K21.9 Gastro-esophageal reflux disease without esophagitis; Z79.899 Other long term (current) drug therapy; Z79.890 Hormone replacement therapy; F11.11 Opioid abuse, in remission

== ENCOUNTER 2018-12-30 14:11 | Emergency (ER) | payer OTHER ==
[~2018-12-30] VITALS: Ht 160 cm; Wt 92.1 kg
[~2018-12-30 14:11] MED LIST changes: +KETO10TAB PO; +LIDO1SOL8 PO; +MOUTHWASH; +amoxicillin
[2018-12-30 14:12] VITALS: BP 118/71
[2018-12-30] MEDS ORDERED: PRED10TA2 (14:47)
[2018-12-30 15:31] LABS: INFLUENZA A AMPLIFICATION NEGATIVE (NEGATIVE); INFLUENZA B AMPLIFICATION NEGATIVE (NEGATIVE)
--- NOTE | 2018-12-30 15:51 | REP ---
Chest x-ray: Two views. History: Cough and fever. Recent diagnosis sarcoidosis. Comparison chest x-ray October 28, 2018 and July 15, 2018. Findings: There is right hilar fullness and right paratracheal lymphadenopathy is observed unchanged from the comparison radiographs and consistent with a diagnosis of sarcoidosis associated adenopathy. There are patchy right perihilar and right lower lobe parenchymal opacities consistent with infiltrate. These are new. Most prominent opacification is in the lower lobe distribution. Remaining lung hess are clear. Heart is not enlarged. No bony abnormality is appreciated. Impression: 1. New infiltrate right lower lobe distribution consistent with pneumonia. 2. Right hilar and a right paratracheal adenopathy consistent with sarcoidosis as before. Electronically Signed by Sourav Valle MD 12/30/2018 03:43 P
[2018-12-30] MEDS ORDERED: DOXY100C PO (16:07)
== END 2018-12-30 16:29 | disposition home or self-care (01) ==
LOC: M ED 14:11
DX: J18.1 Lobar pneumonia, unspecified organism (principal); D86.9 Sarcoidosis, unspecified; F17.200 Nicotine dependence, unspecified, uncomplicated; Z79.899 Other long term (current) drug therapy; Z79.52 Long term (current) use of systemic steroids; Z91.14 Patient's other noncompliance with medication regimen

== ENCOUNTER → 2019-01-12 | Outpatient (CLI) | payer OTHER ==
[~2019-01-12] MED LIST changes: +DOXY100C PO; +METH5SOL PO; +METH5TA PO
[2019-01-12 14:06] LABS: HEMATOCRIT 40.9 % (36.0-47.0); HEMOGLOBIN 13.8 g/dl (12.0-15.5); MEAN CORPUSCULAR HEMOGLOBIN 32.3 pg (27.0-33.0); MEAN CORPUSCULAR HGB CONC 33.7 g/dl (32.0-36.5); MEAN CORPUSCULAR VOLUME 95.8 fl (80.0-96.0); PLATELET COUNT, AUTOMATED 136 10^3/uL (150-450); RED BLOOD COUNT 4.27 10^6/uL (4.00-5.40); WHITE BLOOD COUNT 7.6 10^3/uL (4.0-10.0)
[2019-01-12 14:34] LABS: ALBUMIN 4.3 GM/DL (3.2-5.2); ALT/SGPT 21 U/L (12-78); BILIRUBIN,TOTAL 0.4 MG/DL (0.2-1.0); BLOOD UREA NITROGEN 17 MG/DL (7-18); CALCIUM LEVEL 10.8 MG/DL (8.5-10.1); CARBON DIOXIDE LEVEL 30 MEQ/L (21-32); CHLORIDE LEVEL 102 MEQ/L (98-107); CREATININE FOR GFR 2.36 MG/DL (0.55-1.30); GLOMERULAR FILTRATION RATE 24.8 (>60); GLUCOSE, FASTING 82 MG/DL (70-100); POTASSIUM SERUM 4.3 MEQ/L (3.5-5.1); SODIUM LEVEL 139 MEQ/L (136-145); TOTAL PROTEIN 7.9 GM/DL (6.4-8.2)
[2019-01-12 14:36] LABS: HCG, SERUM QUALITATIVE NEGATIVE (NEGATIVE)
[2019-01-12 14:54] LABS: HEPATITIS B SURFACE ANTIGEN NEGATIVE (NEGATIVE)
[2019-01-12 15:22] LABS: HEPATITIS C VIRUS ABY INDEX 0.1 INDEX (<0.8)
[2019-01-12 15:24] LABS: HIV 1&2 SCREEN CENTAUR NEGATIVE (NEGATIVE)
[2019-01-12 15:43] LABS: CHLAMYDIA DNA AMPLIFICATION NEGATIVE (NEGATIVE); GC DNA AMPLIFICATION NEGATIVE (NEGATIVE)
--- NOTE | 2019-01-15 09:43 | ECGEPIP ---
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
== END ==
LOC: M LAB 13:01
PROVIDERS: ATTEND Family Medicine
DX: F11.20 Opioid dependence, uncomplicated (principal)

== ENCOUNTER 2019-01-24 10:49 | Inpatient (IN) | payer MEDICAID, OTHER ==
[~2019-01-24] VITALS: Ht 160 cm; Wt 89.9 kg
[~2019-01-24 10:49] MED LIST changes: -METH5SOL PO; -METH5TA PO
[2019-01-24] MEDS ORDERED: METH5TA PO ×2 (10:58)
[2019-01-24 11:29] LABS: HEMATOCRIT 40.1 % (36.0-47.0); HEMOGLOBIN 13.3 g/dl (12.0-15.5); MEAN CORPUSCULAR HEMOGLOBIN 32.9 pg (27.0-33.0); MEAN CORPUSCULAR HGB CONC 33.2 g/dl (32.0-36.5); MEAN CORPUSCULAR VOLUME 99.3 fl (80.0-96.0); PLATELET COUNT, AUTOMATED 168 10^3/uL (150-450); RED BLOOD COUNT 4.04 10^6/uL (4.00-5.40); WHITE BLOOD COUNT 5.2 10^3/uL (4.0-10.0)
[2019-01-24 12:07] LABS: HCG, SERUM QUALITATIVE NEGATIVE (NEGATIVE)
[2019-01-24 12:09] LABS: AMPHETAMINES LEVEL URINE NEGATIVE (NEGATIVE); BARBITURATES URINE NEGATIVE (NEGATIVE); BENZODIAZEPINES URINE NEGATIVE (NEGATIVE); CANNABINOIDS URINE POSITIVE (NEGATIVE); COCAINE METABOLITE URINE NEGATIVE (NEGATIVE); METHADONE URINE POSITIVE (NEGATIVE); OPIATES URINE NEGATIVE (NEGATIVE); PHENCYCLIDINE URINE NEGATIVE (NEGATIVE)
[2019-01-24 12:31] LABS: ACETAMINOPHEN LEVEL < 2.0 UG/ML (10.0-30.0); ALBUMIN 4.3 GM/DL (3.2-5.2); ALT/SGPT 34 U/L (12-78); BILIRUBIN,DIRECT 0.1 MG/DL (0.0-0.2); BILIRUBIN,TOTAL 0.5 MG/DL (0.2-1.0); BLOOD UREA NITROGEN 13 MG/DL (7-18); CALCIUM LEVEL 8.8 MG/DL (8.5-10.1); CARBON DIOXIDE LEVEL 34 MEQ/L (21-32); CHLORIDE LEVEL 103 MEQ/L (98-107); CREATININE FOR GFR 1.99 MG/DL (0.55-1.30); ETHYL ALCOHOL (ETHANOL) < 0.003 % (0.000-0.010); GLOMERULAR FILTRATION RATE 30.2 (>60); GLUCOSE, FASTING 97 MG/DL (70-100); POTASSIUM SERUM 3.9 MEQ/L (3.5-5.1); SALICYLATE LEVEL 3.3 MG/DL (5.0-30.0); SODIUM LEVEL 139 MEQ/L (136-145); TOTAL PROTEIN 7.5 GM/DL (6.4-8.2)
[2019-01-24] MEDS ORDERED: LEVOTHYROXINE 100MCG TABLET (0.1MG) PO ONE (13:15)
[2019-01-24 13:29] LABS: FREE T4 0.14 NG/DL (0.76-1.46)
[2019-01-24] MEDS ORDERED: hydrOXYzine 25 MG TAB PO ONE (14:00)
[2019-01-24] MEDS ORDERED: ONDANSETRON 4 MG ORAL DISINTEGRATING TAB (Q0162 PER 1MG) As Ordered ONE (14:23)
[2019-01-24] MEDS ORDERED: NICOTINE 21MG/24HR 1 EA TRANSDERMAL TD ONE (14:30)
[2019-01-24] MEDS ORDERED: ONDANSETRON 4 MG ORAL DISINTEGRATING TAB (Q0162 PER 1MG) PO ONE (14:30)
[2019-01-24] MEDS ORDERED: METH5SOL PO (15:17)
[2019-01-24] MEDS ORDERED: ACETAMINOPHEN TAB 650MG DOSE (2X325MG) PO PRN (18:15)
[2019-01-24] MEDS ORDERED: MOM 30ML SUSPENSION UDC PO PRN (18:15)
[2019-01-24] MEDS ORDERED: MAALOX 30 ML SUSP *UDC PO PRN (18:15)
[2019-01-24] MEDS ORDERED: traZODone 50 MG TAB PO PRN (18:15)
[2019-01-24 23:00] VITALS: BP 146/72
[2019-01-25 06:49] VITALS: BP 114/60
[2019-01-25 08:18] LABS: FREE THYROXINE INDEX 0.4 % (1.3-4.8); THYROXINE (T4) 1.6 UG/DL (4.5-12.0)
[2019-01-25] MEDS ORDERED: guaiFENesin DM LIQ 10ML UD PO PRN (09:00)
[2019-01-25] MEDS ORDERED: IPRATROPIUM 0.5MG/ALBUTEROL 2.5MG INH SOL UD 3ML (DUONEB)(J7620) NEB PRN (09:00)
[2019-01-25] MEDS ORDERED: INFLUENZA QUADRIVALENT PF VACCINE 0.5ML SYRINGE (90686) IM ONE (09:00)
--- NOTE | 2019-01-25 09:04 | HPEPDOC ---
General Date of Admission Jan 24, 2019 at 18:13 Date of Service: Jan 25, 2019 Attending Physician: BECKA MCKENZIE DO Chief Complaint The patient is a 38-year-old female admitted with a reason for visit of Unspecified Depressive Disorder. Source: Patient, RN/MD Timing/Duration: Getting worse, Changing over time Severity: Moderate Associated Symptoms: Cough, Headaches, Shortness of breath, Weakness History of Present Illness Consultation Medical as Patient referred by Inpatient Mental Health Unit: Physical Examination 38 year old female presents with complaints of green thick mucus sputum, cough, chest congestion x 2 weeks, fatigue, constipation, and reports recently diagnosed with sarcoidosis [address] [facility] in [place]. She currently smokes a 1/2 pack of cigarettes daily for the last 15 years and has significant medical history of hypothyroidism, obesity, anxiety, depression, suicidal ideation, AMS, polysubstance abuse including opiates, mediastinal lymphoma; non-compliance with medical/medication and new diagnosis of sarcoidosis.She is currently at [facility] as inpatient in the Mental Health Unit for Suicidal thoughts/Ideations with Depression requiring a medical clearance. Home Medications Scheduled Escitalopram Oxalate (Escitalopram Oxalate) 20 Mg Tablet, 20 MG PO DAILY, (Reported) Methadone HCl (Methadone HCl) 5 Mg/5 Ml Solution, 45 MG PO DAILY, (Reported) Quetiapine Fumarate (Quetiapine Fumarate) 25 Mg Tablet, 25 MG PO QHS, (Reported) Scheduled PRN Trazodone HCl (Trazodone HCl) 100 Mg Tablet, 100 MG PO QHS PRN for SLEEP, (Reported) Allergies Coded Allergies: No Known Allergies (Verified , 10/22/18) Past Medical History Medical History See HPI Surgical History Tubal ligation and Family History Significant Family History: No pertinent family hx (reviewed and patient denies) Social History * Smoker: current smoker, cigarettes Alcohol: heavy Drugs: prescription drugs, other (opiates-02/21 last use) Psychosocial History: Anxiety, Avery SI and HI, Depression A-FIB/CHADSVASC A-FIB History Current/History of A-Fib/PAF?: No Review of Systems Constitutional: Reports: Malaise, Fatigue; Denies: Chills, Fever, Night Sweats, Weakness, Weight Loss, Lethargy, Other Eyes: Denies: Pain, Vision change, Conjunctivae inflammation, Eyelid inflammation, Redness, Other ENT: Reports: Head Aches, Sinus Congestion, Post Nasal Drip Skin: Denies: Rash, Lesions, Jaundice, Bruising, Itching, Dry, Breakdown, Nail Changes, Other Pulmonary: Reports: Dyspnea, Cough, Pleuritic Chest Pain Cardiovascular: Reports: Lt Headedness; Denies: Chest Pain, Palpitations, Orthopnea, Paroxysmal Noc. Dyspnea, Edema, Other Symptoms Gastrointestinal: Reports: Constipation; Denies: Nausea, Vomiting, Abdominal Pain, Diarrhea, Melena, Hematochezia, Other Symptoms Genitourinary: Denies: Dysuria, Frequency, Incontinence, Hematuria, Retention, Other Symptoms Hematologic: Denies: Bruising, Bleeding Excessively, Petecchia, Purpura, Enlarged Lymph Nodes, Other Hematologic Endocrine: Denies: Polydipsia, Polyphagia, Polyuria, Heat Intolerance, Cold Intolerance, Other Endocrine Sx Musculoskeletal: Denies: Neck Pain, Back Pain, Shoulder Pain, Arm Pain, Hand Pain, Leg Pain, Foot Pain, Joint Pain, Muscle Pain, Spasms, Other Symptoms Neurological: Denies: Weakness, Numbness, Incoordination, Change in speech, Confusion, Seizures, Other Symptoms Psych: Reports: Depression; Denies: Mood Normal, Anxiety, Memory Issues, Thoughts of Self Harm, Anger, Thoughts of Harming Other, Other Psych Physical Examination General Exam: Positive: Alert, Cooperative, No Acute Distress Eye Exam: Positive: PERRLA, Conjunctiva & lids normal, Sclera icteric ENT Exam: Positive: Atraumatic, Mucous membr. moist/pink, Pharynx Normal, Tongue Midline Neck Exam: Positive: Supple, +2 carotid pulse wo bruit Chest Exam: Positive: Diminished Heart Exam: Positive: Rate Normal, Normal S1, Normal S2 Abdomen Exam: Positive: Normal bowel sounds, Soft, Tenderness (LLQ, RLQ) Extremity Exam: Positive: Normal pulses Skin Exam: Positive: Nl turgor and temperature Neuro Exam: Positive: Normal Gait, Strength at 5/5 X4 ext, Normal Tone, Cranial Nerves 3-12 NL, Other (speech monotone) Psych Exam: Positive: Oriented x 3, Other (flat affect, labile mood) Vital Signs Vital Signs Date Time Temp Pulse Resp B/P (MAP) Pulse Ox O2 Delivery O2 Flow Rate FiO2 01/25/19 06:49 99.2 80 16 114/60 (78) 01/24/19 23:00 Room Air 01/24/19 19:23 96 Laboratory Data Labs 24H Laboratory Tests 2 01/24/19 11:15: Nucleated Red Blood Cells % (auto) 0.0, Anion Gap 2L, Glomerular Filtration Rate 30.2L, Calcium Level 8.8, Total Bilirubin 0.5, Direct Bilirubin 0.1, Aspartate Amino Transf (AST/SGOT) 76H, Alanine Aminotransferase (ALT/SGPT) 34, Alkaline Phosphatase 66, Total Protein 7.5, Albumin 4.3, Albumin/Globulin Ratio 1.34, Thyroid Stimulating Hormone (TSH) 316.000H, Free Thyroxine 0.14L, Human Chorionic Gonadotropin, Qual NEGATIVE, Salicylates Level 3.3L, Urine Opiates Screen NEGATIVE, Urine Methadone Screen POSITIVEH, Acetaminophen Level < 2.0L, Urine Barbiturates Screen NEGATIVE, Urine Phencyclidine Screen NEGATIVE, Urine Amphetamines Screen NEGATIVE, Urine Benzodiazepines Screen NEGATIVE, Urine Cocaine Metabolite Screen NEGATIVE, Urine Cannabinoids Screen POSITIVEH, Ethyl Alcohol Level < 0.003 01/25/19 07:06: Thyroid Stimulating Hormone (TSH) 329.000H, Free Thyroxine Index 0.4L, Thyroxine (T4) 1.6L, Triiodothyronine (T3) Uptake 27L CBC/BMP Laboratory Tests 01/24/19 11:15 RAD Interpretation STUDY: CXR (Single view of the chest performed.) Rad Actions: Report Reviewed (increased right base infilitrate which has worsened since the prior read on 12/30/18. Right hilar and mediastinal adenopathy), Wet Read Reviewed Problems (1) Depression with suicidal ideation Status: Acute Discussed With: Patient Problem Text: 38 year old female presents with complaints of green thick mucus sputum, cough, chest congestion x 2 weeks, fatigue, constipation, and reports recently diagnosed with sarcoidosis [address] [facility] at [facility] in [place]. Vital signs stable (current)-118/76 blood pressure; 60-heart rate; 97.6 temporal temp; 96% O2 saturation on RA. Cough productive with green sputum. Pneumonia Right lobe-Acute Plan Guaifenesin/Dexomethosenp 10 cc/ml po q 4 hours as needed for cough, chest co ngestion DuoNeb via nebulizer treatment 3ml q 6 hours while awake for shortness of breath, cough, chest congestion Chest x-ray-shows widening mediastinal lymphadenopathy and worsening right lower lobe infiltrate Sputum culture Essential hypertension-Chronic Check labs: CBC with Diff; CMP, UA Continue taking Carvedilol 12.5 mg po bid Monitor vital signs and weigh daily Hypothyroidism-chronic TSH-normal range0.453 Continue with home medication Levothyroxine 100mcg on empty stomach ( or 2 hours after meal) Overactive Bladder/Stress Incontinence-Chronic Continue taking Prazosin 3 mg total at bedtime (1 mg tab and 2 mg tab) Iron Deficiency Anemia-Chronic Iron panel Continue taking Ferrous Sulfate 325 mg po bid take with folic acid and orange juice for absorption and decrease GI side effects Seasonal allergies/allergic rhinitis-chronic continue taking Loratadine 10 mg po daily Constipation-chronic continue taking docusate sodium bid Add: Senokot-S 1 bid, Bisacodyl EC 10 mg bid to regimen GERD-Chronic continue taking Omeprazole Dr 40 mg po daily on empty stomach Depression with Suicidal Ideation-Acute continue inpatient mental health program Prognosis: Good DVT Prophylaxis: Low risk for developing DVT; BRENT pastrana but patient walks daily (all day) Discharge: pending medical lab results for medical clearance and Inpatient Mental health unit Plan / VTE VTE Prophylaxis Ordered?: No VTE Exclusion Mechanical Proph: Low Risk for VTE VTE Exclusion Pharmacological: At Low Risk for VTE Plan Diet: Continue Current Activity: Continue Current Diagnostics: Xrays TERESE FIELD Jan 25, 2019 09:04
--- NOTE | 2019-01-25 09:55 | REP ---
CHEST, SINGLE VIEW: Single view of the chest performed. COMPARISON: 12/30/2018 There is an infiltrate in the right lung base. The left lung is clear. Widening of the superior mediastinum is consistent with adenopathy as seen on prior CT 07/15/2018. There is also a hilar adenopathy. IMPRESSION: Right base infiltrate. This has increased since the prior study of 12/30/2018. There is again noted right hilar and mediastinal adenopathy. Electronically Signed by Levy Beasley MD 01/26/2019 11:41 A
[2019-01-25] MEDS ORDERED: INFLUENZA QUADRIVALENT PF VACCINE 0.5ML SYRINGE (90686) IM SCH (10:45)
[2019-01-25] MEDS: METHADONE 10 MG TAB (S0109) PO SCH (10:50)
[2019-01-25] MEDS ORDERED: traZODone 100 MG TAB PO PRN (11:30)
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
[2019-01-25] MEDS ORDERED: LEVOTHYROXINE 100MCG TABLET (0.1MG) PO SCH (12:00)
[2019-01-25] MEDS ORDERED: ESCITALOPRAM OXALATE 10 MG TAB (LEXAPRO) PO ONE (12:00)
[2019-01-25] MEDS: LIOTHYRONINE 25 MCG TAB PO SCH (14:53)
[2019-01-25] MEDS: GABAPENTIN 300 MG CAP PO SCH ×2 (16:29→20:45)
[2019-01-25 18:00] VITALS: BP 128/89
[2019-01-25] MEDS ORDERED: QUEtiapine FUMARATE 25 MG TAB PO SCH (21:00)
[2019-01-26] MEDS ORDERED: LEVOTHYROXINE 88MCG TABLET (0.088 MG) PO SCH (06:00)
[2019-01-26] MEDS ORDERED: LEVOTHYROXINE 100MCG TABLET (0.1MG) PO SCH (06:00)
[2019-01-26 07:29] VITALS: BP 105/72
[2019-01-26] MEDS: LIOTHYRONINE 25 MCG TAB PO SCH (08:30)
[2019-01-26] MEDS: GABAPENTIN 300 MG CAP PO SCH (08:30)
[2019-01-26] MEDS: METHADONE 10 MG TAB (S0109) PO SCH (08:31)
[2019-01-26] MEDS ORDERED: ESCITALOPRAM OXALATE 10 MG TAB (LEXAPRO) PO SCH (09:00)
[2019-01-26 09:41] LABS: BASO # 0.1 10^3/uL (0.0-0.2); BASO % 1.4 % (0.0-1.0); EOS # 0.4 10^3/uL (0.0-0.5); HEMATOCRIT 38.4 % (36.0-47.0); HEMOGLOBIN 12.8 g/dl (12.0-15.5); LYMPH % 26.9 % (24.0-44.0); MEAN CORPUSCULAR HEMOGLOBIN 33.1 pg (27.0-33.0); MEAN CORPUSCULAR HGB CONC 33.3 g/dl (32.0-36.5); MEAN CORPUSCULAR VOLUME 99.2 fl (80.0-96.0); MONO # 0.3 10^3/uL (0.0-0.8); MONO % 8.2 % (0.0-5.0); NEUTROPHILS # 1.9 10^3/uL (1.5-8.5); NEUTROPHILS % 51.5 % (36.0-66.0); PLATELET COUNT, AUTOMATED 143 10^3/uL (150-450); RED BLOOD COUNT 3.87 10^6/uL (4.00-5.40); WHITE BLOOD COUNT 3.7 10^3/uL (4.0-10.0)
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
[2019-01-26 10:37] LABS: BILIRUBIN,TOTAL 0.5 MG/DL (0.2-1.0); CREATININE FOR GFR 2.09 MG/DL (0.55-1.30); FREE THYROXINE INDEX 0.8 % (1.3-4.8); GLOMERULAR FILTRATION RATE 28.5 (>60); POTASSIUM SERUM 3.9 MEQ/L (3.5-5.1); THYROXINE (T4) 2.8 UG/DL (4.5-12.0); TOTAL PROTEIN 7.3 GM/DL (6.4-8.2)
[2019-01-26] MEDS ORDERED: TRAZ10TA PO (10:58)
[2019-01-26] MEDS ORDERED: QUET1TAB7 PO ×2 (10:58→12:00)
[2019-01-26] MEDS ORDERED: ESCI10TA2 PO (10:58)
[2019-01-26] MEDS ORDERED: TRAZ-189 PO (12:00)
[2019-01-26] MEDS ORDERED: ESCI20TA PO (12:00)
== END 2019-01-26 11:15 | disposition short-term general hospital (02) | DRG 755 ==
LOC: M ED 10:49 → M ED INP 18:13 → M PSY 22:43
PROVIDERS: ADMIT Psychiatry & Neurology Psychiatry; ATTEND Psychiatry & Neurology Psychiatry
DX: F43.10 Post-traumatic stress disorder, unspecified (principal); J18.9 Pneumonia, unspecified organism; F11.20 Opioid dependence, uncomplicated; Z91.14 Patient's other noncompliance with medication regimen; F10.21 Alcohol dependence, in remission; D86.9 Sarcoidosis, unspecified; I10 Essential (primary) hypertension; D50.9 Iron deficiency anemia, unspecified; F12.20 Cannabis dependence, uncomplicated; F17.210 Nicotine dependence, cigarettes, uncomplicated; Z59.0 Homelessness; Z91.411 Personal history of adult psychological abuse; Z81.1 Family history of alcohol abuse and dependence; Z62.810 Personal history of physical and sexual abuse in childhood; F32.9 Major depressive disorder, single episode, unspecified; E03.9 Hypothyroidism, unspecified; N32.81 Overactive bladder; N39.3 Stress incontinence (female) (male); J30.9 Allergic rhinitis, unspecified; K59.00 Constipation, unspecified; K21.9 Gastro-esophageal reflux disease without esophagitis

== ENCOUNTER 2019-01-26 09:50 | Inpatient (IN) | payer MEDICAID ==
[~2019-01-26] VITALS: Ht 160 cm; Wt 95.3 kg
[2019-01-26] MEDS: BISACODYL 5 MG TAB PO SCH (09:00)
[~2019-01-26 09:50] MED LIST changes: +METH5SOL PO; +METH5TA PO
[2019-01-26] MEDS ORDERED: MOM 30ML SUSPENSION UDC PO PRN (10:00)
[2019-01-26] MEDS ORDERED: MAALOX 30 ML SUSP *UDC PO PRN (10:00)
--- NOTE | 2019-01-26 10:05 | HPEPDOC ---
General Date of Admission 01/26/19 Date of Service: Jan 26, 2019 Attending Physician: THAO POLANCO MD Chief Complaint The patient is a 38-year-old female admitted with a reason for visit of Hypoth yroidism,Vince. Source: Patient, RN/MD Exam Limitations: Clinical conditions Timing/Duration: Week(s), Getting worse Severity: Moderate Associated Symptoms: Cough, Headaches, Malaise, Nausea, Shortness of breath, Weakness, Increased agitation, Dizziness, Other (crying, mood swings, hair fall ing out) History of Present Illness 38-year-old female presents with hypothyroidism is not controlled on 100 g of levothyroxine daily with palpitations, crying daily, alternating mood swings, hair falling out, brittle nails, cold and heat intolerance, insomnia, constipation, depression and anxiety. She was inpatient on the mental health unit for depression with suicidal ideation, which was exacerbated with her thyroid-stimulating hormone being elevated from 319-329 trending upwards. She had abnormal EKG on admission and even though patient states that she is taking her levothyroxine on an empty stomach. She is still not absorbing the medication appropriately. She has significant medical history of seizures, depression with suicidal ideation, anxiety, pneumonia, mediastinal lymphadenopathy, substance abuse, hypothyroidism, nicotine dependence cigarettes, and back pain but chronic anxiety syndrome. Patient is admitted to medicine inpatient today do to myxedema secondary to uncontrolled severe hypothyroidism and current chest x-ray showing increased mediastinal lymphadenopathy and worsened right lower lobe pneumonia. She'll be started on IV antibiotics for her worsening right lower lobe pneumonia and IV for her worsening hypothyroidism and low T3. Mental health will be following patient. She is on methadone 45 g maintenance daily. Home Medications Scheduled Escitalopram Oxalate (Escitalopram Oxalate) 20 Mg Tablet, 20 MG PO DAILY, (Reported) Methadone HCl (Methadone HCl) 5 Mg/5 Ml Solution, 45 MG PO DAILY, (Reported) Quetiapine Fumarate (Quetiapine Fumarate) 25 Mg Tablet, 25 MG PO QHS, (Reported) Scheduled PRN Trazodone HCl (Trazodone HCl) 100 Mg Tablet, 100 MG PO QHS PRN for SLEEP, (Reported) Allergies Coded Allergies: No Known Allergies (Verified , 10/22/18) Past Medical History Medical History See HPI Surgical History 3; tubal ligation Family History Significant Family History: No pertinent family hx (reviewed with patient not pertinent) Social History * Smoker: current smoker, cigarettes Drugs: prescription drugs Recent Travel/Sick Contacts: Denies: Recent travel, Recent sick contacts Psychosocial History: Anxiety, Decreased mood, Avery SI and HI, Depression, Emotional problems, Mood disorder NOS A-FIB/CHADSVASC A-FIB History Current/History of A-Fib/PAF?: No Review of Systems Constitutional: Reports: Malaise, Fatigue, Lethargy Eyes: Reports: Pain, Redness ENT: Reports: Sinus Congestion, Post Nasal Drip Skin: Reports: Itching, Dry Pulmonary: Reports: Cough Cardiovascular: Reports: Palpitations, Edema Gastrointestinal: Reports: Nausea, Constipation Genitourinary: Denies: Dysuria, Frequency, Incontinence, Hematuria, Retention, Other Symptoms Hematologic: Denies: Bruising, Bleeding Excessively, Petecchia, Purpura, Enlarged Lymph Nodes, Other Hematologic Endocrine: Reports: Polyuria, Heat Intolerance, Cold Intolerance Musculoskeletal: Reports: Joint Pain Neurological: Reports: Weakness, Confusion Psych: Reports: Anxiety, Depression, Memory Issues, Other Psych (insomnia) Physical Examination General Exam: Positive: Alert, Cooperative, Moderate Distress Eye Exam: Positive: PERRLA, Conjunctiva & lids normal ENT Exam: Positive: Atraumatic, Mucous membr. moist/pink, Pharynx Normal, Other ENT (hair falling out in moderate pieces) Neck Exam: Positive: Supple, +2 carotid pulse wo bruit Chest Exam: Positive: Clear to auscultation Heart Exam: Positive: Irregular Rhythm, Normal S1, Normal S2 Abdomen Exam: Positive: Normal bowel sounds, Soft, Tenderness (LLQ) Extremity Exam: Positive: Edema, Normal pulses Skin Exam: Positive: Nl turgor and temperature Neuro Exam: Positive: Normal Tone, Cranial Nerves 3-12 NL Psych Exam: Positive: Anxiety, Oriented x 3, Other (crying intermittently, easily excitable) Vital Signs Vital Signs Date Time Temp Pulse Resp B/P (MAP) Pulse Ox O2 Delivery O2 Flow Rate FiO2 01/26/19 11:33 98.2 47 19 121/73 (89) 91 Room Air Laboratory Data CBC/BMP Laboratory Tests 01/27/19 06:28 Microbiology Microbiology 01/27/19 Blood Culture, Received Pending 01/26/19 Gram Stain - Final, Resulted 01/26/19 Sputum Culture, Resulted Pending Problems (1) Myxedema Problem Specific Plan: Monitor Clinically, Repeat Labs Problem Text: 38-year-old female presents with severe hypothyroidism with level 329 is not controlled on 100 g of levothyroxine daily with palpitati ons, crying daily, alternating mood swings, hair falling out, brittle nails, cold and heat intolerance, insomnia, constipation, depression and anxiety. She was inpatient on the mental health unit for depression with suicidal ideation, which was exacerbated with her thyroid-stimulating hormone being elevated from 319-329 trending upwards. She had abnormal EKG on admission and even though patient states that she is taking her levothyroxine on an empty stomach. She is still not absorbing the medication appropriately. Patient admitted to medicine inpatient for uncontrolled thyroid storm, chest x-ray shows extending mediastinal lymphedema and right lower lobe pneumonia, worsening. She'll be started on IV antibiotics for her worsening right lower lobe pneumonia and IV for her worsening hypothyroidism and low T3. Mental health will be following patient. She is on methadone 45 g maintenance daily. Myxedemaacute Synthroid 75 g IV (1.689.8 kg equals 146 g divided by 2. Weight equals 75 g for IV infusion daily) Continue Cytomel 12.5 mg by mouth daily Once patient is stabilized, we'll restart Synthroid at 88 g daily on empty stomach, along with Cytomel 12.5 mg daily gradually increased to 25 mg daily, recheck in 6 weeks. She can follow with her PCP outpatient Telemetry with pulse oximetry, continuous monitoring Seizure precautions, history of seizures with only 1 Acute Kidney Injury-Acute eGFR-30 with creatinine clearance 1.99 IV fluids LR @ 100 cc/hr- Recheck: CMP, UA Monitor Blood pressure Monitor weight, I&O's Lobular right pneumoniaacute on chronic IV antibiotic Rocephin 1 GM q 24 hours then switch to oral antibiotics as soon as possible Check: CBC with differential Zofran 4 mg IV every 6 hours as needed for nausea and vomiting Protonix [address] IV twice a day Continue guaifenesin/dextra needed for cough Monitor labs: mag, lactate, LDH, phosphorus DuoNeb nebulizer treatment every 6 hours as needed for shortness of breath, wheezing, cough Depression with Suicidal Ideationchronic Continue medication per psychiatric mental health Psychiatric referral consult maintenance continuation once patient is stable medically. Opiatechronic Continue maintenance methadone 45 g daily Chronic pain Continue gabapentin 300 mg 3 times a day by mouth Insomniachronic Continue trazodone 50-100 mg by mouth daily at bedtime Constipationchronic Initiate bowel regimen. Sen[place] one by mouth twice a day; MiraLAX 17 g by mouth once a day with juice and/or water; bisacodyl EC 10 mg 1 by mouth twice a day; milk of magnesia 10 mL 4 times a day as needed for constipation; Maalox 30 mL as needed 3 times a day for indigestion Prognosis: Good. DVT prophylaxis: Heparin subcutaneous 5000 IUs 3 times a day Discharge: Pending TSH. Return to normal and clearance of pneumonia. Once cleared , patient will be discharged from medicine back to psychiatric inpatient mental health for continuation of treatment Plan / VTE VTE Prophylaxis Ordered?: Yes VTE Exclusion Mechanical Proph: Low Risk for VTE VTE Exclusion Pharmacological: N/A:VTE Prophy Ordered Plan IVF: Initiate Diet: Continue Current Activity: Continue Current Medications: Change to IV, Change to PO, Replete Electrolytes IV Diagnostics: Check Labs, Repeat Labs in AM Anticipated Discharge: Psych, Transfer (To Inpatient Mental Health Unit once Medically stable) TERESE FIELD Jan 26, 2019 10:05
[2019-01-26] MEDS ORDERED: TRAZ10TA PO (10:58)
[2019-01-26] MEDS ORDERED: QUET1TAB7 PO ×2 (10:58→12:00)
[2019-01-26] MEDS ORDERED: ESCI10TA2 PO (10:58)
[2019-01-26 11:33] VITALS: BP 121/73
[2019-01-26] MEDS ORDERED: ESCI20TA PO (12:00)
[2019-01-26] MEDS ORDERED: TRAZ-189 PO (12:00)
[2019-01-26] MEDS ORDERED: guaiFENesin DM LIQ 10ML UD PO PRN (12:30)
[2019-01-26] MEDS ORDERED: IPRATROPIUM 0.5MG/ALBUTEROL 2.5MG INH SOL UD 3ML (DUONEB)(J7620) NEB PRN (12:30)
[2019-01-26] MEDS: LR 1,000 ML IV SCH (13:10)
[2019-01-26] MEDS: HEPARIN SOD (PORCINE) 5000 UNITS/ML VIAL SC SCH ×2 (13:12→13:17)
[2019-01-26] MEDS ORDERED: PILL CUTTER 1 EACH XX PRN (13:30)
[2019-01-26 14:00] VITALS: BP 124/73
[2019-01-26] MEDS: DOCUSATE SODIUM 100 MG CAP PO SCH ×2 (14:50→20:33)
[2019-01-26] MEDS: NICOTINE 21MG/24HR 1 EA TRANSDERMAL TD SCH (14:50)
[2019-01-26] MEDS: SENOKOT S TAB PO SCH ×2 (14:50→20:33)
[2019-01-26] MEDS: LEVOTHYROXINE 100 MCG (0.1MG) VIAL IV SCH (14:57)
[2019-01-26] MEDS: GABAPENTIN 300 MG CAP PO SCH ×2 (16:30→20:33)
[2019-01-26] MEDS: METHADONE 10 MG TAB (S0109) PO SCH (16:30)
[2019-01-26] MEDS: cefTRIAXone SOD 1 GM in D5W MINI-BAG PLUS 50 ML IV SCH (17:43)
[2019-01-26] MEDS: AZITHROMYCIN INJ 500 MG, VIAL MATE ADAPTER 1 EACH in D5W 250 ML IV SCH (18:20)
[2019-01-26 22:00] VITALS: BP 107/65
[2019-01-27] MEDS: LR 1,000 ML IV SCH (00:30)
[2019-01-27] MEDS: HEPARIN SOD (PORCINE) 5000 UNITS/ML VIAL SC SCH ×4 (05:55→22:03)
[2019-01-27] MEDS: ACETAMINOPHEN TAB 650MG DOSE (2X325MG) PO PRN (05:58)
[2019-01-27 06:00] VITALS: BP 121/74
[2019-01-27] MEDS ORDERED: LEVOTHYROXINE 88MCG TABLET (0.088 MG) PO SCH (06:00)
[2019-01-27 06:50] LABS: HEMATOCRIT 33.4 % (36.0-47.0); MEAN CORPUSCULAR HEMOGLOBIN 32.8 pg (27.0-33.0); MEAN CORPUSCULAR HGB CONC 32.9 g/dl (32.0-36.5); MEAN CORPUSCULAR VOLUME 99.7 fl (80.0-96.0); PLATELET COUNT, AUTOMATED 112 10^3/uL (150-450); RED BLOOD COUNT 3.35 10^6/uL (4.00-5.40); WHITE BLOOD COUNT 3.8 10^3/uL (4.0-10.0)
[2019-01-27 07:06] LABS: CALCIUM LEVEL 8.6 MG/DL (8.5-10.1); CREATININE FOR GFR 1.87 MG/DL (0.55-1.30); GLOMERULAR FILTRATION RATE 32.4 (>60); MAGNESIUM LEVEL 2.1 MG/DL (1.8-2.4); POTASSIUM SERUM 4.3 MEQ/L (3.5-5.1)
--- NOTE | 2019-01-27 08:07 | ECGEPIP ---
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 Slower rate but otherwise unchanged from 01/12/19 Electronically Signed on 01-27-2019 8:06:52 EDT by Francisco Javier Murdock
[2019-01-27] MEDS ORDERED: LEVOTHYROXINE 100 MCG (0.1MG) VIAL IV SCH (09:00)
[2019-01-27] MEDS: MIRALAX *UNIT DOSE* 17GM PACKET PO SCH (09:00)
[2019-01-27] MEDS: LIOTHYRONINE 25 MCG TAB PO SCH (09:40)
[2019-01-27] MEDS: NICOTINE 21MG/24HR 1 EA TRANSDERMAL TD SCH (09:40)
[2019-01-27] MEDS: SENOKOT S TAB PO SCH ×2 (09:41→22:03)
[2019-01-27] MEDS: DOCUSATE SODIUM 100 MG CAP PO SCH ×2 (09:41→22:03)
[2019-01-27] MEDS: BISACODYL 5 MG TAB PO SCH (09:42)
[2019-01-27] MEDS: GABAPENTIN 300 MG CAP PO SCH ×3 (09:42→22:04)
[2019-01-27] MEDS: METHADONE 10 MG TAB (S0109) PO SCH (09:42)
[2019-01-27] MEDS: LEVOTHYROXINE 100 MCG (0.1MG) VIAL IV SCH (09:53)
[2019-01-27] MEDS: NS 1,000 ML IV SCH ×2 (09:53→18:20)
[2019-01-27] MEDS: PANTOPRAZOLE SODIUM 40 MG in D5W 50 ML IV SCH ×2 (11:12→16:21)
[2019-01-27] MEDS: ESCITALOPRAM OXALATE 10 MG TAB (LEXAPRO) PO SCH (12:42)
[2019-01-27 14:00] VITALS: BP 120/65
[2019-01-27] MEDS: cefTRIAXone SOD 1 GM in D5W MINI-BAG PLUS 50 ML IV SCH (17:22)
--- NOTE | 2019-01-27 18:19 | IPNPDOC ---
Text Note Date of Service The patient was seen on 01/27/19. NOTE Subjective: Patient continues to complains of mild weakness, cough with greenish sputum production, but she stated she feels much better than before. Patient denies any suicidal ideation Objective:Physical Examination General Exam: Positive: Alert, Cooperative, Moderate Distress Eye Exam: Positive: PERRLA, Conjunctiva & lids normal ENT Exam: Positive: Atraumatic, Mucous membr. moist/pink, Pharynx Normal, Neck Exam: Positive: Supple, +2 carotid pulse wo bruit Chest Exam: Positive: Diminished lung sounds bilaterally, rhonchi over right lung field Heart Exam: Positive: Irregular Rhythm, Normal S1, Normal S2 Abdomen Exam: Positive: Normal bowel sounds, Soft, Tenderness (LLQ) Extremity Exam: Positive: Edema, Normal pulses Skin Exam: Positive: Nl turgor and temperature Neuro Exam: Positive: Normal Tone, Cranial Nerves 3-12 NL Psych Exam: Positive: Anxiety, Oriented x 3, Patient is 38 years old female with past medical history of hypothyroidism, sarcoidosis, anxiety, depression, noncompliance to treatment presented hospital with myxedema coma, right lobe pneumonia and major depression exacerbation Myxedema Secondary to noncompliance due to uncontrolled depression TSH on admission was elevated to over 300 Treatment with IV Synthroid started also patient received to T3 12.5 Continue to monitor TSH level We will adjust her dose of Synthroid and T3 according to TSH CASPER Prerenal combined with renal Unclear etiology for now Continue IV fluid Continue to monitor kidney function HCAP Lobular right pneumonia. Chest x-ray positive for right lower lobe infiltrate Patient has been treated for pneumonia with doxycycline 2 weeks ago, patient stated that she finished course of antibiotic. Blood culture, sputum culture pending Inhalers Azithromycin IV, Rocephin IV Depression with Suicidal Ideation Continue medication per psychiatric mental health After medical stabilization patient will be transferred to mental health unit sitter Opiate dependence Continue maintenance methadone 45 g daily Insomnia Continue trazodone 50-100 mg by mouth daily at bedtime Constipation Most likely secondary to opioids Continue with Laxatives VS,Fishbone, I+O VS, Fishbone, I+O Laboratory Tests 01/27/19 06:28 Vital Signs Date Time Temp Pulse Resp B/P (MAP) Pulse Ox O2 Delivery O2 Flow Rate FiO2 01/27/19 14:00 97.6 65 16 120/65 (83) 100 Room Air I&O- Last 24 Hours up to 6 AM 10/24/19 06:00 Intake Total 1600 ml Output Total 925 ml Balance 675 ml BECKA MCKENZIE DO Jan 27, 2019 18:19
[2019-01-27] MEDS: AZITHROMYCIN INJ 500 MG, VIAL MATE ADAPTER 1 EACH in D5W 250 ML IV SCH (18:27)
[2019-01-27 18:52] LABS: HEMATOCRIT 34.4 % (36.0-47.0); HEMOGLOBIN 11.2 g/dl (12.0-15.5); MEAN CORPUSCULAR HEMOGLOBIN 32.5 pg (27.0-33.0); MEAN CORPUSCULAR HGB CONC 32.6 g/dl (32.0-36.5); MEAN CORPUSCULAR VOLUME 99.7 fl (80.0-96.0); PLATELET COUNT, AUTOMATED 123 10^3/uL (150-450); RED BLOOD COUNT 3.45 10^6/uL (4.00-5.40); WHITE BLOOD COUNT 3.7 10^3/uL (4.0-10.0)
[2019-01-27 22:00] VITALS: BP 111/70
[2019-01-27] MEDS: QUEtiapine FUMARATE 25 MG TAB PO SCH (22:04)
[2019-01-27] MEDS: traZODone 50 MG TAB PO SCH (22:04)
[2019-01-28 00:13] LABS: HEMATOCRIT 32.4 % (36.0-47.0); HEMOGLOBIN 10.7 g/dl (12.0-15.5); MEAN CORPUSCULAR HEMOGLOBIN 33.1 pg (27.0-33.0); MEAN CORPUSCULAR VOLUME 100.3 fl (80.0-96.0); PLATELET COUNT, AUTOMATED 118 10^3/uL (150-450); RED BLOOD COUNT 3.23 10^6/uL (4.00-5.40); WHITE BLOOD COUNT 3.8 10^3/uL (4.0-10.0)
[2019-01-28] MEDS: NS 1,000 ML IV SCH ×4 (02:24→21:27)
[2019-01-28] MEDS: HEPARIN SOD (PORCINE) 5000 UNITS/ML VIAL SC SCH ×3 (05:05→21:28)
[2019-01-28 06:00] VITALS: BP 116/70
[2019-01-28 06:33] LABS: HEMATOCRIT 32.3 % (36.0-47.0); HEMOGLOBIN 10.6 g/dl (12.0-15.5); MEAN CORPUSCULAR HEMOGLOBIN 33.2 pg (27.0-33.0); MEAN CORPUSCULAR HGB CONC 32.8 g/dl (32.0-36.5); MEAN CORPUSCULAR VOLUME 101.3 fl (80.0-96.0); PLATELET COUNT, AUTOMATED 107 10^3/uL (150-450); RED BLOOD COUNT 3.19 10^6/uL (4.00-5.40)
[2019-01-28 07:38] LABS: CALCIUM LEVEL 7.9 MG/DL (8.5-10.1); CREATININE FOR GFR 1.7 MG/DL (0.55-1.30); FREE THYROXINE INDEX 1.3 % (1.3-4.8); GLOMERULAR FILTRATION RATE 36.2 (>60); POTASSIUM SERUM 4.4 MEQ/L (3.5-5.1); THYROXINE (T4) 4.3 UG/DL (4.5-12.0)
[2019-01-28] MEDS: GABAPENTIN 300 MG CAP PO SCH ×3 (08:25→21:28)
[2019-01-28] MEDS: DOCUSATE SODIUM 100 MG CAP PO SCH ×2 (08:25→21:27)
[2019-01-28] MEDS: BISACODYL 5 MG TAB PO SCH (08:25)
[2019-01-28] MEDS: LEVOTHYROXINE 100 MCG (0.1MG) VIAL IV SCH (08:25)
[2019-01-28] MEDS: ESCITALOPRAM OXALATE 10 MG TAB (LEXAPRO) PO SCH (08:25)
[2019-01-28] MEDS: NICOTINE 21MG/24HR 1 EA TRANSDERMAL TD SCH (08:26)
[2019-01-28] MEDS: LIOTHYRONINE 25 MCG TAB PO SCH (08:26)
[2019-01-28] MEDS: SENOKOT S TAB PO SCH ×2 (08:26→21:27)
[2019-01-28] MEDS: METHADONE 10 MG TAB (S0109) PO SCH (08:26)
[2019-01-28] MEDS: MIRALAX *UNIT DOSE* 17GM PACKET PO SCH (08:32)
[2019-01-28] MEDS: OMEPRAZOLE 20 MG CAP PO SCH (08:36)
--- NOTE | 2019-01-28 11:25 | IPNPDOC ---
Text Note Date of Service The patient was seen on 01/28/19. VS,Manda, I+O VS, Edgardoe, I+O Laboratory Tests 01/27/19 18:37 01/28/19 00:01 01/28/19 06:06 Vital Signs Date Time Temp Pulse Resp B/P (MAP) Pulse Ox O2 Delivery O2 Flow Rate FiO2 01/28/19 06:00 97.6 54 18 116/70 (85) 93 Room Air I&O- Last 24 Hours up to 6 AM 01/28/19 06:00 Intake Total 5795 ml Output Total 950 ml Balance 4845 ml BECKA MCKENZIE DO Jan 28, 2019 11:25
[2019-01-28 12:21] LABS: HEMATOCRIT 34.2 % (36.0-47.0); HEMOGLOBIN 11.3 g/dl (12.0-15.5); MEAN CORPUSCULAR HEMOGLOBIN 33.5 pg (27.0-33.0); MEAN CORPUSCULAR VOLUME 101.5 fl (80.0-96.0); PLATELET COUNT, AUTOMATED 121 10^3/uL (150-450); RED BLOOD COUNT 3.37 10^6/uL (4.00-5.40); WHITE BLOOD COUNT 3.6 10^3/uL (4.0-10.0)
--- NOTE | 2019-01-28 12:28 | ECGEPIP ---
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
[2019-01-28 14:00] VITALS: BP 118/71
[2019-01-28] MEDS: cefTRIAXone SOD 1 GM in D5W MINI-BAG PLUS 50 ML IV SCH (16:38)
[2019-01-28] MEDS: AZITHROMYCIN INJ 500 MG, VIAL MATE ADAPTER 1 EACH in D5W 250 ML IV SCH (17:14)
[2019-01-28 18:12] LABS: HEMATOCRIT 35.4 % (36.0-47.0); HEMOGLOBIN 11.4 g/dl (12.0-15.5); MEAN CORPUSCULAR HEMOGLOBIN 33.1 pg (27.0-33.0); MEAN CORPUSCULAR HGB CONC 32.2 g/dl (32.0-36.5); MEAN CORPUSCULAR VOLUME 102.9 fl (80.0-96.0); PLATELET COUNT, AUTOMATED 130 10^3/uL (150-450); RED BLOOD COUNT 3.44 10^6/uL (4.00-5.40); WHITE BLOOD COUNT 4.1 10^3/uL (4.0-10.0)
[2019-01-28] MEDS ORDERED: ONDANSETRON 4MG/2ML VIAL (J2405) IV PRN (18:30)
--- NOTE | 2019-01-28 18:34 | CR ---
DATE OF CONSULTATION: 01/28/2019 REASON FOR CONSULTATION: Abnormal chest CT. Ms. Webb was admitted with noncompliance with medication precipitating a hypothyroid event with severe myxedema. She states she felt groggy, tired and "loopy," and presented to the emergency room. She thought it was her depression. However, she admitted that she had not been taking any medications. While here, she had some shortness of breath. Breath sounds were noted to be abnormal on physical examination. She was started on antibiotics, ceftriaxone and azithromycin, for possible respiratory infection. However, the patient has known sarcoid with severely enlarged mediastinal lymphadenopathy such that on her last bronchoscopy, she had 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 She has known substance abuse, nicotine dependence, chronically on cigarettes but no history of asthma or chronic obstructive pulmonary disease (COPD). In fact, her spirometry was normal in the office in July 2018. Unfortunately, she did not followup as recommended by Dr. Hurst, even letters were sent to her home and they were returned to sender. She states that right now she has a variable living condition. She is not living with her mother which was her previously given address. She states she was unable to take the steroids that Dr. Hurst had prescribed and did not call the office, just simply stop taking medication. I have explained to her there may be other options. However, she needs to be compliant with her outpatient followups. Currently, she states she feels well. She feels as if she has a recurrent cough since she has had a pneumonia which she describes being diagnosed three weeks ago, for which she was treated for. She uses a rescue inhaler at home but does not use the long-acting inhaled therapy that was previously prescribed. She has had no hemoptysis. No chest pain. No dyspnea with exertion. No pleurisy. No history of tuberculosis or tuberculosis contacts. She actually had workup for possible tuberculosis in the past with a negative QuantiFERON Gold. PAST MEDICAL HISTORY: 1. Hypothyroidism. 2. Depression with suicidal ideation. 3. Sarcoidosis with mediastinal adenopathy, minimal parenchymal abnormalities. 4. Questionable history of seizure. 5. Anxiety. 6. Substance abuse. 7. Nicotine dependence. 8. Chronic back pain. HOME MEDICATIONS: Include escitalopram, methadone, quetiapine, trazodone as needed, and albuterol as needed. ALLERGIES: No known drug allergies. FAMILY HISTORY: No significant family history of sarcoidosis or lung disease that she is aware of. SOCIAL HISTORY: She has been smoking for 13 years at least a pack a day, was going to try Chantix. I have discouraged her from doing this given her psychiatric history. She currently has a patch on and states that she is having cravings despite having a patch. She currently denies any recent travels. No recent sick contacts. Denies any recent illicit drug use. REVIEW OF SYSTEMS: CONSTITUTIONAL: The patient had malaise, fatigue, lethargy which has improved. No night sweats, fevers or chills. She denies any eye pain. She denies any symptoms of uveitis. No difficulty swallowing. No epistaxis or rhinorrhea. CARDIOVASCULAR: She has no chest pain, palpitations, lower extremity edema. No symptoms of orthopnea or paroxysmal nocturnal dyspnea (PND). PULMONARY: No pleurisy, history of tuberculosis, or tuberculosis contacts. GASTROINTESTINAL (GI): No nausea, vomiting, diarrhea, but she did have some constipation. GENITOURINARY (): No burning pain or increased frequency. No hematuria. NEUROLOGIC: Feels groggy, lightheaded, loopy, but this has improved since admission. No unilateral weakness or tremor. No recent seizure activity. HEMATOLOGIC: No bruising or bleeding. She has not noticed any lymphadenopathy in the neck, groin, or underneath her arms. ENDOCRINE: She has had some polyuria. No hot or cold intolerance. MUSCULOSKELETAL: She has joint pain, complaining about more back pain than true joint pain. No joint effusions. No evidence of recent trauma. NEUROLOGIC: She has had weakness and confusion but also improved since admission. PSYCHIATRIC: She has anxiety and depression. No suicidal ideation at this moment. She has insight into her medical issues and states she knows she needs to take her medications. SLEEP: She has known sleep apnea. VITAL SIGNS: Temperature is 98.3, pulse is 61, respiratory rate of 17, blood pressure is 118/71 with a mean arterial pressure 87, oxygen saturations 97% on room air. GENERAL: Awake, alert and oriented. Affect and mood appropriate. Nutrition and hygiene are good. Oral and nasal mucosa pink and moist without lesions. Oropharynx without erythema or exudate. NECK: Supple. No tracheal deviation or mass. LYMPHATIC: No cervical, supraclavicular or axillary adenopathy. CARDIAC: Regular S1, S2 without audible murmur, rub or gallop. No elevated jugular venous pulse (JVP). No peripheral edema. PULMONARY: There is a coarse airway breath sound that is consistent throughout all lung hess, transmitted likely from compression of the airway. There is no stridor. There is no expiratory wheeze. There are no rales. There is no dullness to percussion. There is no accessory muscle use. ABDOMEN: Obese, soft, nontender, nondistended. No hepatosplenomegaly. No masses or hernia. EXTREMITIES: No cyanosis, clubbing or edema. SKIN: No rash, jaundice or bruising. NEUROLOGIC: No unilateral weakness, asterixis or tremor. LABORATORY EVALUATION: Shows a white blood cell count of 3.6, hemoglobin 11.3, hematocrit of 34.2, platelet count of 121. Sodium is 145, potassium is 4.4, chloride is 110, bicarbonate is 32, BUN of 8, creatinine of 1.7 and a fasting glucose of 84. Urine toxicology was positive for cannabinoids and methadone. Sputum simply showed yeast-like organisms. Blood cultures: No growth. Chest CT was reviewed. Again, there is significant the adenopathy in the chest, largest of the right pretracheal. This has been previously biopsied. There is nonspecific parenchymal abnormalities in the left lower lobe and right lower lobe, both which were present in July 2018 and most likely represent sarcoid and not acute pneumonia. IMPRESSION: 1. Abnormal chest CT with history of sarcoidosis. I do not believe there has been significant progression. According to Dr. Radha Hurst's bronchoscopy notes, there was already some external compression of the airways because of the lymphadenopathy. The patient despite letters did not show back up to the office despite initiation of treatment. She states this is because she had psychosis with steroids. I have explained to her there are other potential regimens we could try but currently is not in extremis on, has with oxygen without significant issue. Therefore, we will discuss with Dr. Hurst who is coming on tomorrow, as she will be following the patient as an outpatient. The alternatives could include methotrexate and Remicade. I agree with continuing on azithromycin as this can decrease inflammation. I would add nebulized therapy with long-acting beta agonists and inhaled steroids until the patient can be further evaluated to tell whether she truly has asthma. Her spirometry was normal in the office and therefore will require followup and testing unless this has been performed previously that I am not aware of. 2. Leukopenia, possibly secondary to hypothyroidism. At this point in time, no evidence of an active infection. Would discontinue ceftriaxone. 3. Nicotine dependence. The patient is still having cravings despite being on a patch. I have added nicotine gum to her regimen. The patient will require followup, does have extensive adenopathy from sarcoid, may need a steroid-sparing agents as she is not able to tolerate psychosis. It is unclear whether or not she is able to even tolerate low-dose. However, we will discuss this with her primary machine filler who will be the attending tomorrow, as there is no urgency currently in initiating therapy.
--- NOTE | 2019-01-28 19:34 | IPNPDOC ---
Text Note Date of Service The patient was seen on 01/28/19. NOTE Subjective: Patient stated that she feels better today, denies shortness of breath. She complains of dry cough. She complains of intermittent nausea. Patient denies fever, chills, palpitations, diarrhea or dysuria Objective:VITAL SIGNS: Please see below. GENERAL APPEARANCE: Obese female HEENT: Normocephalic, atraumatic. Mucous members moist and pink CARDIOVASCULAR: Regular rate and rhythm. No murmurs, rubs or gallops. Radial pulses are intact. There is no lower extremity edema LUNGS: . Coarse lung sounds bilaterally ABDOMEN: Bowel sounds are hypoactive. Abdomen is soft and nontender. MUSCULOSKELETAL: Range of motion is intact in all 4 extremities NEUROLOGICAL: Cranial nerves II-12 are grossly intact. Speech is not dysarthric Patient is 38 years old female with past medical history of hypothyroidism, sarcoidosis, anxiety, depression, noncompliance to treatment presented hospital with myxedema coma, right lobe pneumonia and major depression exacerbation Myxedema Secondary to noncompliance due to uncontrolled depression TSH on admission was elevated to over 300 IV Synthroid switched to by mouth Continue to monitor TSH level We will adjust her dose of Synthroid and T3 according to TSH CASPER Improved Prerenal combined with renal Unclear etiology for now Continue IV fluid Continue to monitor kidney function HCAP Lobular right pneumonia. Chest x-ray positive for right lower lobe infiltrate Patient has been treated for pneumonia with doxycycline 2 weeks ago, patient stated that she finished course of antibiotic. 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 Patient denied steroids due to previous psychosis The patient will require follow up in the outpatient settings, does have extensive adenopathy from sarcoid Opiate dependence Continue maintenance methadone 45 g daily Insomnia Continue trazodone 50-100 mg by mouth daily at bedtime Constipation Most likely secondary to opioids Continue with Laxatives Tobacco dependence Nicotine patch VS,Fishbone, I+O VS, Fishbone, I+O Laboratory Tests 01/28/19 00:01 01/28/19 06:06 01/28/19 12:11 01/28/19 17:47 Vital Signs Date Time Temp Pulse Resp B/P (MAP) Pulse Ox O2 Delivery O2 Flow Rate FiO2 01/28/19 14:00 98.3 61 17 118/71 (87) 97 Room Air I&O- Last 24 Hours up to 6 AM 01/28/19 06:00 Intake Total 5795 ml Output Total 950 ml Balance 4845 ml BECKA MCKENZIE DO Jan 28, 2019 19:34
[2019-01-28] MEDS: traZODone 50 MG TAB PO SCH (21:28)
[2019-01-28] MEDS: QUEtiapine FUMARATE 25 MG TAB PO SCH (21:28)
[2019-01-28] MEDS: FORMOTEROL FUMARATE 20 MCG/2 ML INHALATION SOLUTION (PERFOROMIST) INH SCH (21:34)
[2019-01-28] MEDS: BUDESONIDE 0.5 MG/2 ML INHALATION SUSPENSION INH SCH (21:34)
[2019-01-28 22:00] VITALS: BP 130/85
[2019-01-29 00:24] LABS: HEMATOCRIT 30.2 % (36.0-47.0); MEAN CORPUSCULAR HEMOGLOBIN 33.6 pg (27.0-33.0); MEAN CORPUSCULAR HGB CONC 33.1 g/dl (32.0-36.5); MEAN CORPUSCULAR VOLUME 101.3 fl (80.0-96.0); PLATELET COUNT, AUTOMATED 107 10^3/uL (150-450); RED BLOOD COUNT 2.98 10^6/uL (4.00-5.40); WHITE BLOOD COUNT 3.2 10^3/uL (4.0-10.0)
[2019-01-29] MEDS: HEPARIN SOD (PORCINE) 5000 UNITS/ML VIAL SC SCH ×3 (05:55→22:00)
[2019-01-29] MEDS: LEVOTHYROXINE 150MCG TABLET (0.15MG) PO SCH (05:55)
[2019-01-29] MEDS: NS 1,000 ML IV SCH ×3 (05:55→20:20)
[2019-01-29 05:58] LABS: HEMATOCRIT 30.9 % (36.0-47.0); HEMOGLOBIN 9.9 g/dl (12.0-15.5); MEAN CORPUSCULAR HEMOGLOBIN 32.4 pg (27.0-33.0); PLATELET COUNT, AUTOMATED 120 10^3/uL (150-450); RED BLOOD COUNT 3.06 10^6/uL (4.00-5.40); WHITE BLOOD COUNT 3.1 10^3/uL (4.0-10.0)
[2019-01-29 06:00] VITALS: BP 126/85
[2019-01-29 06:45] LABS: CALCIUM LEVEL 7.9 MG/DL (8.5-10.1); CREATININE FOR GFR 1.61 MG/DL (0.55-1.30); GLOMERULAR FILTRATION RATE 38.5 (>60); MAGNESIUM LEVEL 1.7 MG/DL (1.8-2.4); POTASSIUM SERUM 4.2 MEQ/L (3.5-5.1)
[2019-01-29] MEDS: FORMOTEROL FUMARATE 20 MCG/2 ML INHALATION SOLUTION (PERFOROMIST) INH SCH ×2 (07:51→20:33)
[2019-01-29] MEDS: BUDESONIDE 0.5 MG/2 ML INHALATION SUSPENSION INH SCH ×2 (07:51→20:00)
[2019-01-29] MEDS: MIRALAX *UNIT DOSE* 17GM PACKET PO SCH (09:00)
[2019-01-29] MEDS: METHADONE 10 MG TAB (S0109) PO SCH (09:39)
[2019-01-29] MEDS: ESCITALOPRAM OXALATE 10 MG TAB (LEXAPRO) PO SCH (09:39)
[2019-01-29] MEDS: BISACODYL 5 MG TAB PO SCH (09:39)
[2019-01-29] MEDS: DOCUSATE SODIUM 100 MG CAP PO SCH ×2 (09:39→20:33)
[2019-01-29] MEDS: ACETAMINOPHEN TAB 650MG DOSE (2X325MG) PO PRN (09:40)
[2019-01-29] MEDS: OMEPRAZOLE 20 MG CAP PO SCH (09:40)
[2019-01-29] MEDS: GABAPENTIN 300 MG CAP PO SCH ×3 (09:40→20:33)
[2019-01-29] MEDS: SENOKOT S TAB PO SCH ×2 (09:40→20:33)
[2019-01-29] MEDS: LIOTHYRONINE 25 MCG TAB PO SCH (09:40)
[2019-01-29] MEDS: NICOTINE 21MG/24HR 1 EA TRANSDERMAL TD SCH (09:41)
--- NOTE | 2019-01-29 09:52 | REP ---
CT CHEST WITHOUT IV CONTRAST: CT chest performed without IV contrast. Comparison made with prior CT chest with contrast, 07/15/2018. In both upper lobes, there are mild peripheral interstitial opacities, which are stable. There is more confluent patchy parenchymal opacity in both lower lobes. Bilaterally, these have mildly increased since the prior study. There is extensive mediastinal and hilar adenopathy which is grossly unchanged, precise evaluation is somewhat limited due to the lack of IV contrast. No axillary adenopathy is seen. The heart is not enlarged. There is no pleural or pericardial effusion. The visualized upper abdominal structures appear grossly unremarkable. IMPRESSION: No significant change in extensive mediastinal and hilar adenopathy. There is mild increase in patchy bibasilar parenchymal opacities when compared to the prior study of 07/15/2018. Electronically Signed by Levy Beasley MD 01/29/2019 03:42 P
[2019-01-29 12:15] LABS: HEMATOCRIT 33.2 % (36.0-47.0); MEAN CORPUSCULAR HEMOGLOBIN 33.6 pg (27.0-33.0); MEAN CORPUSCULAR HGB CONC 33.1 g/dl (32.0-36.5); MEAN CORPUSCULAR VOLUME 101.5 fl (80.0-96.0); PLATELET COUNT, AUTOMATED 106 10^3/uL (150-450); RED BLOOD COUNT 3.27 10^6/uL (4.00-5.40); WHITE BLOOD COUNT 3.6 10^3/uL (4.0-10.0)
[2019-01-29] MEDS: NICOTINE POLACRILEX 2 MG GUM PO PRN ×3 (12:23→21:26)
[2019-01-29 14:00] VITALS: BP 124/80
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
[2019-01-29] MEDS: AZITHROMYCIN INJ 500 MG, VIAL MATE ADAPTER 1 EACH in D5W 250 ML IV SCH (17:23)
--- NOTE | 2019-01-29 18:28 | IPNPDOC ---
Text Note Date of Service The patient was seen on 01/29/19. NOTE Subjective: No any acute events overnight. She continues to complain of dry cough. Patient denies fever, chills, palpitations, diarrhea or dysuria Objective:VITAL SIGNS: Please see below. GENERAL APPEARANCE: Obese female HEENT: Normocephalic, atraumatic. Mucous members moist and pink CARDIOVASCULAR: Regular rate and rhythm. No murmurs, rubs or gallops. Radial pulses are intact. There is no lower extremity edema LUNGS: . Coarse lung sounds bilaterally ABDOMEN: Bowel sounds are hypoactive. Abdomen is soft and nontender. MUSCULOSKELETAL: Range of motion is intact in all 4 extremities NEUROLOGICAL: Cranial nerves II-12 are grossly intact. Speech is not dysarthric CT CHEST WITHOUT IV CONTRAST: CT chest performed without IV contrast. Comparison made with prior CT chest with contrast, 07/15/2018. In both upper lobes, there are mild peripheral interstitial opacities, which are stable. There is more confluent patchy parenchymal opacity in both lower lobes. Bilaterally, these have mildly increased since the prior study. There is extensive mediastinal and hilar adenopathy which is grossly unchanged, precise evaluation is somewhat limited due to the lack of IV contrast. No axillary adenopathy is seen. The heart is not enlarged. There is no pleural or peric ardial effusion. The visualized upper abdominal structures appear grossly unremarkable. IMPRESSION: No significant change in extensive mediastinal and hilar adenopathy. There is mild increase in patchy bibasilar parenchymal opacities when compared to the prior study of 07/15/2018. Patient is 38 years old female with past medical history of hypothyroidism, sarcoidosis, anxiety, depression, noncompliance to treatment presented hospital with myxedema coma, right lobe pneumonia and major depression exacerbation Myxedema Secondary to noncompliance due to uncontrolled depression TSH on admission was elevated to over 300 IV Synthroid switched to by mouth Continue to monitor TSH level We will adjust her dose of Synthroid and T3 according to TSH CASPER Improved Prerenal combined with renal Unclear etiology for now Continue IV fluid Continue to monitor kidney function HCAP Lobular right pneumonia. Chest x-ray positive for right lower lobe infiltrate Patient has been treated for pneumonia with doxycycline 2 weeks ago, patient stated that she finished course of antibiotic. Blood culture negative Inhalers Azithromycin IV, Rocephin IV DC per injection molding technician recommendation Depression with Suicidal Ideation Continue medication per psych recommendation Sarcoidosis French Folder team follows her Patient denied steroids due to previous psychosis. We will repeat trial with 20 mg of prednisone in the hospital settings The patient will require follow up in the outpatient settings, does have extensive adenopathy from sarcoid Opiate dependence Continue maintenance methadone 45 g daily Insomnia Continue trazodone 50-100 mg by mouth daily at bedtime Constipation Most likely secondary to opioids Continue with Laxatives Tobacco dependence Nicotine patch VS,Fishbone, I+O VS, Fishbone, I+O Laboratory Tests 01/28/19 23:49 01/29/19 05:41 01/29/19 12:00 Vital Signs Date Time Temp Pulse Resp B/P (MAP) Pulse Ox O2 Delivery O2 Flow Rate FiO2 01/29/19 14:00 98.2 63 15 124/80 (95) 96 Room Air I&O- Last 24 Hours up to 6 AM 01/29/19 06:00 Intake Total 4570 ml Output Total 3300 ml Balance 1270 ml BECKA MCKENZIE DO Jan 29, 2019 18:28
[2019-01-29] MEDS: QUEtiapine FUMARATE 25 MG TAB PO SCH (20:33)
[2019-01-29] MEDS: traZODone 50 MG TAB PO SCH (20:33)
[2019-01-29 22:00] VITALS: BP 133/82
[2019-01-30] MEDS: NS 1,000 ML IV SCH ×3 (01:08→17:27)
[2019-01-30] MEDS: LEVOTHYROXINE 150MCG TABLET (0.15MG) PO SCH (05:50)
[2019-01-30] MEDS: HEPARIN SOD (PORCINE) 5000 UNITS/ML VIAL SC SCH ×3 (05:51→20:48)
[2019-01-30 06:00] VITALS: BP 130/80
[2019-01-30 06:32] LABS: ALT/SGPT 21 U/L (12-78); BILIRUBIN,DIRECT < 0.1 MG/DL (0.0-0.2); BILIRUBIN,TOTAL 0.4 MG/DL (0.2-1.0); BLOOD UREA NITROGEN 7 MG/DL (7-18); CALCIUM LEVEL 7.9 MG/DL (8.5-10.1); CARBON DIOXIDE LEVEL 27 MEQ/L (21-32); CHLORIDE LEVEL 115 MEQ/L (98-107); CREATININE FOR GFR 1.41 MG/DL (0.55-1.30); GLOMERULAR FILTRATION RATE 44.9 (>60); GLUCOSE, FASTING 87 MG/DL (70-100); POTASSIUM SERUM 3.9 MEQ/L (3.5-5.1); SODIUM LEVEL 146 MEQ/L (136-145); TOTAL PROTEIN 5.6 GM/DL (6.4-8.2)
[2019-01-30 06:33] LABS: ALBUMIN 3.1 GM/DL (3.2-5.2); MAGNESIUM LEVEL 1.8 MG/DL (1.8-2.4)
[2019-01-30] MEDS: FORMOTEROL FUMARATE 20 MCG/2 ML INHALATION SOLUTION (PERFOROMIST) INH SCH ×2 (08:34→19:59)
[2019-01-30] MEDS: BUDESONIDE 0.5 MG/2 ML INHALATION SUSPENSION INH SCH ×2 (08:34→19:59)
[2019-01-30] MEDS: DOCUSATE SODIUM 100 MG CAP PO SCH ×2 (08:52→20:47)
[2019-01-30] MEDS: OMEPRAZOLE 20 MG CAP PO SCH (08:53)
[2019-01-30] MEDS: GABAPENTIN 300 MG CAP PO SCH ×3 (08:53→20:48)
[2019-01-30] MEDS: LIOTHYRONINE 25 MCG TAB PO SCH (08:53)
[2019-01-30] MEDS: BISACODYL 5 MG TAB PO SCH (08:53)
[2019-01-30] MEDS: ESCITALOPRAM OXALATE 10 MG TAB (LEXAPRO) PO SCH (08:53)
[2019-01-30] MEDS: SENOKOT S TAB PO SCH ×2 (08:53→20:47)
[2019-01-30] MEDS: METHADONE 10 MG TAB (S0109) PO SCH (08:54)
[2019-01-30] MEDS: NICOTINE 21MG/24HR 1 EA TRANSDERMAL TD SCH (08:55)
[2019-01-30] MEDS: MIRALAX *UNIT DOSE* 17GM PACKET PO SCH (08:56)
[2019-01-30] MEDS: predniSONE 20 MG TAB PO SCH (12:50)
[2019-01-30] MEDS: NICOTINE POLACRILEX 2 MG GUM PO PRN ×2 (12:50→17:36)
[2019-01-30 14:00] VITALS: BP 132/87
[2019-01-30] MEDS: AZITHROMYCIN INJ 500 MG, VIAL MATE ADAPTER 1 EACH in D5W 250 ML IV SCH (17:26)
[2019-01-30] MEDS: QUEtiapine FUMARATE 25 MG TAB PO SCH (20:48)
[2019-01-30] MEDS: traZODone 50 MG TAB PO SCH (20:48)
--- NOTE | 2019-01-30 20:56 | IPNPDOC ---
Text Note Date of Service The patient was seen on 01/30/19. NOTE Subjective: No any acute events overnight. She continues to complain of dry cough. Patient stated that she continues to have anxiety. Patient denies fever, chills, palpitations, diarrhea or dysuria Objective:VITAL SIGNS: Please see below. GENERAL APPEARANCE: Obese female HEENT: Normocephalic, atraumatic. Mucous members moist and pink CARDIOVASCULAR: Regular rate and rhythm. No murmurs, rubs or gallops. Radial pulses are intact. There is no lower extremity edema LUNGS: . Coarse lung sounds bilaterally ABDOMEN: Bowel sounds are hypoactive. Abdomen is soft and nontender. MUSCULOSKELETAL: Range of motion is intact in all 4 extremities NEUROLOGICAL: Cranial nerves II-12 are grossly intact. Speech is not dysarthric Patient is 38 years old female with past medical history of hypothyroidism, sarcoidosis, anxiety, depression, noncompliance to treatment presented hospital with myxedema coma, right lobe pneumonia and major depression exacerbation Myxedema Secondary to noncompliance due to uncontrolled depression TSH on admission was elevated to over 300 IV Synthroid switched to by mouth Continue to monitor TSH level We will adjust her dose of Synthroid and T3 according to TSH CASPER Improved Prerenal combined with renal Unclear etiology for now Continue IV fluid Continue to monitor kidney function HCAP Resolved Lobular right pneumonia. Chest x-ray positive for right lower lobe infiltrate Patient has been treated for pneumonia with doxycycline 2 weeks ago, patient stated that she finished course of antibiotic. Blood culture negative Inhalers Azithromycin IV, Rocephin IV DC per elevator inspector recommendation Depression with Suicidal Ideation Continue medication per psych recommendation Anxiety Appreciate/agree with psych consult The dose of gabapentin was increased to every 6 hours Sarcoidosis Chemical Applicator team follows her Patient denied steroids due to previous psychosis. We will repeat trial with 20 mg of prednisone in the hospital settings The patient will require follow up in the outpatient settings, does have extensive adenopathy from sarcoid Opiate dependence Prednisone by mouth per elevator inspector Continue maintenance methadone 45 g daily Insomnia Continue trazodone 50-100 mg by mouth daily at bedtime Constipation Most likely secondary to opioids Continue with Laxatives Tobacco dependence Nicotine patch VS,Fishbone, I+O VS, Fishbone, I+O Laboratory Tests 01/30/19 05:44 Vital Signs Date Time Temp Pulse Resp B/P (MAP) Pulse Ox O2 Delivery O2 Flow Rate FiO2 01/30/19 14:00 98.4 86 17 132/87 (102) 92 Room Air I&O- Last 24 Hours up to 6 AM 01/30/19 06:00 Intake Total 5520 ml Output Total 2000 ml Balance 3520 ml BECKA MCKENZIE DO Jan 30, 2019 20:56
[2019-01-30 22:00] VITALS: BP 144/89
[2019-01-31] MEDS: HEPARIN SOD (PORCINE) 5000 UNITS/ML VIAL SC SCH ×2 (05:29→12:25)
[2019-01-31] MEDS: NS 1,000 ML IV SCH ×2 (05:33→14:00)
[2019-01-31] MEDS: GABAPENTIN 300 MG CAP PO SCH ×2 (05:33→11:57)
[2019-01-31] MEDS: LEVOTHYROXINE 150MCG TABLET (0.15MG) PO SCH (05:33)
[2019-01-31 06:00] VITALS: BP 127/78
[2019-01-31 06:37] LABS: CREATININE FOR GFR 1.38 MG/DL (0.55-1.30); GLOMERULAR FILTRATION RATE 46.1 (>60); MAGNESIUM LEVEL 1.9 MG/DL (1.8-2.4)
[2019-01-31] MEDS: BUDESONIDE 0.5 MG/2 ML INHALATION SUSPENSION INH SCH (07:23)
[2019-01-31] MEDS: FORMOTEROL FUMARATE 20 MCG/2 ML INHALATION SOLUTION (PERFOROMIST) INH SCH (07:23)
[2019-01-31 07:48] LABS: FREE THYROXINE INDEX 1.6 % (1.3-4.8); THYROID STIMULATING HORMONE 54.4 uIU/ML (0.358-3.740); THYROXINE (T4) 5.4 UG/DL (4.5-12.0)
[2019-01-31 07:55] LABS: HEMATOCRIT 33.9 % (36.0-47.0); HEMOGLOBIN 10.9 g/dl (12.0-15.5); MEAN CORPUSCULAR HEMOGLOBIN 32.3 pg (27.0-33.0); MEAN CORPUSCULAR HGB CONC 32.2 g/dl (32.0-36.5); MEAN CORPUSCULAR VOLUME 100.6 fl (80.0-96.0); PLATELET COUNT, AUTOMATED 125 10^3/uL (150-450); RED BLOOD COUNT 3.37 10^6/uL (4.00-5.40); WHITE BLOOD COUNT 3.7 10^3/uL (4.0-10.0)
[2019-01-31] MEDS: LIOTHYRONINE 25 MCG TAB PO SCH (08:57)
[2019-01-31] MEDS: SENOKOT S TAB PO SCH (08:58)
[2019-01-31] MEDS: BISACODYL 5 MG TAB PO SCH (08:58)
[2019-01-31] MEDS: METHADONE 10 MG TAB (S0109) PO SCH (08:58)
[2019-01-31] MEDS: predniSONE 20 MG TAB PO SCH (08:58)
[2019-01-31] MEDS: ESCITALOPRAM OXALATE 10 MG TAB (LEXAPRO) PO SCH (08:58)
[2019-01-31] MEDS: OMEPRAZOLE 20 MG CAP PO SCH (08:58)
[2019-01-31] MEDS: DOCUSATE SODIUM 100 MG CAP PO SCH (08:58)
[2019-01-31] MEDS: MIRALAX *UNIT DOSE* 17GM PACKET PO SCH (08:59)
[2019-01-31] MEDS: NICOTINE 21MG/24HR 1 EA TRANSDERMAL TD SCH (09:02)
[2019-01-31] MEDS: NICOTINE POLACRILEX 2 MG GUM PO PRN ×2 (11:57→14:07)
[2019-01-31] MEDS ORDERED: CYTO25TA6 PO (13:11)
[2019-01-31] MEDS ORDERED: PRED20TA PO (13:11)
[2019-01-31] MEDS ORDERED: OMEP-218 PO (13:11)
[2019-01-31] MEDS ORDERED: LEVO150T7 PO (13:11)
[2019-01-31] MEDS ORDERED: BUDE0.5S6 INH (13:11)
[2019-01-31] MEDS ORDERED: PERF20NE2 INH (13:11)
[2019-01-31] MEDS ORDERED: GABA-843 PO (13:11)
[2019-01-31 14:00] VITALS: BP 132/87
--- NOTE | 2019-01-31 14:31 | IPN ---
DATE OF SERVICE: 01/31/2019 SUBJECTIVE: The patient was seen and examined this morning during bedside rounds. The patient was given prednisone 20 mg by mouth which she took yesterday and did not notice any significant change in her mood. The patient continues to have a cough occasionally productive of mucus, but denies any significant chest pain and no wheezing or shortness of breath currently. She has not had any fevers or chills. PHYSICAL EXAMINATION: Temperature 98.2, pulse 70, respirations 20, blood pressure 122/78, O2 sat 95% on room air. General: The patient is awake, alert and oriented. She is not in any acute respiratory distress. She is not using any accessory muscles of respiration. HEENT: Normocephalic, atraumatic. Mucous membranes are moist. Neck is supple. There is no palpable cervical adenopathy. Cardiac: Regular rate and rhythm with normal S1-S2 and no appreciable murmurs. Pulmonary: The patient continues to have coarse breath sounds with occasional rhonchi, but no significant wheezing or crackles. Abdomen is obese, soft, nontender and nondistended. There are positive bowel sounds. Lower Extremities: There is some mild bilateral nonpitting edema in the lower extremities. LABORATORY DATA: WBC 3.7, hemoglobin 10.9, platelets 125. Chemistry with sodium 143, potassium 4.0, chloride is 113, bicarb 26, BUN 6, creatinine improving to 1.38, glucose is 94, and TSH improving to 54.4. ASSESSMENT AND PLAN: Ms. Webb is a 38-year old female with a past medical history of hypothyroidism, bipolar disorder, depression, with a previous history of suicidal ideation, history of nicotine dependence, substance abuse, and sarcoidosis who presented initially to inpatient psych with some suicidal ideation and depression as well as with symptoms of uncontrolled hypothyroidism. The patient had been noncompliant with her medications as an outpatient including her Synthroid as well as her inhalers and prednisone that she was prescribed previously for her sarcoidosis. The patient has extensive social issues as well as her depression, bipolar disorder and anxiety which has limited her compliance and followup as an outpatient. Her repeat CT chest done on this admission continues to show the significant mediastinal and hilar adenopathy as well as infiltrates in the lungs bilaterally which appear consistent with her diagnosis of sarcoidosis. These were seen previously, but appear slightly increased. - The patient was started on prednisone 20 mg which she appears to be tolerating currently as she is also on some new psychiatric medications. - Will continue with 20 mg of prednisone until she follows up with us in clinic in the next 2 weeks. We did discuss that if she were having issues with the prednisone that she should contact us prior to discontinuation. - The patient has evidence of some thrombocytopenia and leukopenia likely secondary to her severe uncontrolled hypothyroidism initially which appears to be improving slowly. If patient has improvements in her cell counts and she is unable to tolerate the prednisone then she may be a candidate for methotrexate at that time. Would need to follow up though with repeat labs including LFTs and CBC as an outpatient. - Continue the patient on nebulizers as well as with inhaled long-acting beta agonist (LABA) and inhaled corticosteroids (ICS) while inpatient. Would discharge the patient with DuoNebs to be used p.r.n. - The patient did not have any findings on her CT to suggest a focal pneumonia. Her procalcitonin was negative. Acute pneumonia is less likely. Ceftriaxone was discontinued and she was continued on azithromycin which we can discontinue as well. - Continue with nicotine patch as well as nicotine gum for smoking cessation. The patient is willing to continue with her attempts at smoking cessation as an outpatient and so would also discharge her with prescriptions for the nicotine replacement therapy. Deep vein thrombosis (DVT) prophylaxis. Full code. The patient can follow up as an outpatient in 2 weeks after discharge. Please do not hesitate to call for any further questions or concerns. MTDD
[2019-01-31] MEDS ORDERED: ESCI20TA PO (14:55)
[2019-01-31] MEDS ORDERED: TRAZ-189 PO (14:55)
[2019-01-31] MEDS ORDERED: QUET1TAB7 PO (14:55)
[2019-01-31] MEDS ORDERED: IPRA0.00 NEB (15:01)
[2019-01-31] MEDS ORDERED: ARNU50IN IN (15:01)
--- NOTE | 2019-01-31 20:02 | DS.PDOC ---
Discharge Summary General Date of Admission Jan 26, 2019 at 11:32 Date of Discharge 01/31/19 Discharge Summary PROCEDURES PERFORMED DURING STAY: None. ADMITTING DIAGNOSES: Myxedema VINCE HCAP Depression with Suicidal Ideation Anxiety Sarcoidosis Insomnia Constipation Tobacco dependence DISCHARGE DIAGNOSES: Myxedema VINCE HCAP Depression with Suicidal Ideation Anxiety Sarcoidosis Insomnia Constipation Tobacco dependence COMPLICATIONS/CHIEF COMPLAINT: Hypothyroidism,Vince. HISTORY OF PRESENT ILLNESS: Ms. Webb is a 38-year old female with a past medical history of hypothyroidism, bipolar disorder, depression, with a previous history of suicidal ideation, history of nicotine dependence, substance abuse, and sarcoidosis who presented initially to inpatient psych with some suicidal ideation and depression as well as with symptoms of uncontrolled hypothyroidism. The patient had been noncompliant with her medications as an outpatient including her Synthroid as well as her inhalers and prednisone that she was prescribed previously for her sarcoidosis. The patient has extensive social issues as well as her depression, bipolar disorder and anxiety which has limited her compliance and followup as an outpatient. Her repeat CT chest done on this admission continues to show the significant mediastinal and hilar adenopathy as well as infiltrates in the lungs bilaterally which appear consistent with her diagnosis of sarcoidosis. These were seen previously, but appear slightly increased. - The patient was started on prednisone 20 mg which she appears to be tolerating currently as she is also on some new psychiatric medications. - Will continue with 20 mg of prednisone until she follows up with us in clinic in the next 2 weeks. We did discuss that if she were having issues with the prednisone that she should contact us prior to discontinuation. - The patient has evidence of some thrombocytopenia and leukopenia likely secondary to her severe uncontrolled hypothyroidism initially which appears to be improving slowly. If patient has approval in her cell counts and she is unable to tolerate the prednisone then she may be a candidate for methotrexate at that time. Would need to follow up though with repeat labs including LFTs and CBC as an outpatient. - Continue the patient on nebulizers as well as with inhaled long-acting beta agonist (LABA) and inhaled corticosteroids (ICS) while inpatient. Would discharge the patient with DuoNebs to be used p.r.n. - The patient did not have any findings on her CT to suggest a focal pneumonia. Her procalcitonin was negative. Acute pneumonia is less likely. Ceftriaxone was discontinued and she was continued on azithromycin which we can discontinue as well. - Continue with nicotine patch as well as nicotine gum for smoking cessation. The patient is willing to continue with her attempts at smoking cessation as an outpatient and so would also discharge her with prescriptions for the nicotine replacement therapy. -Myxedema Secondary to noncompliance due to uncontrolled depression TSH on admission was elevated to over 300 IV Synthroid switched to by mouth Continue to monitor TSH level We will adjust her dose of Synthroid and T3 according to TSH HOSPITAL COURSE: DISCHARGE MEDICATIONS: Please see below. ALLERGIES: Please see below. PHYSICAL EXAMINATION ON DISCHARGE: VITAL SIGNS: Please see below. GENERAL APPEARANCE: Obese female HEENT: Normocephalic, atraumatic. Mucous members moist and pink CARDIOVASCULAR: Regular rate and rhythm. No murmurs, rubs or gallops. Radial pulses are intact. There is no lower extremity edema LUNGS: . Coarse lung sounds bilaterally ABDOMEN: Bowel sounds are hypoactive. Abdomen is soft and nontender. MUSCULOSKELETAL: Range of motion is intact in all 4 extremities NEUROLOGICAL: Cranial nerves II-12 are grossly intact. Speech is not dysarthric LABORATORY DATA: Please see below. IMAGING: CT CHEST WITHOUT IV CONTRAST: CT chest performed without IV contrast. Comparison made with prior CT chest with contrast, 07/15/2018. In both upper lobes, there are mild peripheral interstitial opacities, which are stable. There is more confluent patchy parenchymal opacity in both lower lobes. Bilaterally, these have mildly increased since the prior study. There is extensive mediastinal and hilar adenopathy which is grossly unchanged, precise evaluation is somewhat limited due to the lack of IV contrast. No axillary adenopathy is seen. The heart is not enlarged. There is no pleural or pericardial effusion. The visualized upper abdominal structures appear grossly unremarkable. IMPRESSION: No significant change in extensive mediastinal and hilar adenopathy. There is mild increase in patchy bibasilar parenchymal opacities when compared to the prior study of 07/15/2018. PROGNOSIS: Favorable ACTIVITY: As tolerated DIET: Regular DISCHARGE PLAN: Home DISPOSITION: 01 Home, Self-Care. DISCHARGE INSTRUCTIONS: Continue taking prescribed medications ITEMS TO FOLLOWUP ON ON OUTPATIENT: With clinical engineering director, belt knife feeder, PCP, psychiatrist DISCHARGE CONDITION: Stable TIME SPENT ON DISCHARGE: Greater than 20 minutes. Vital Signs/I&Os Vital Signs Date Time Temp Pulse Resp B/P (MAP) Pulse Ox O2 Delivery O2 Flow Rate FiO2 01/31/19 14:00 97.6 86 17 132/87 (102) 92 Room Air I&O- Last 24 Hours up to 6 AM 01/31/19 06:00 Intake Total 4660 ml Output Total 3150 ml Balance 1510 ml Laboratory Data Labs 24H Laboratory Tests 2 01/31/19 05:53: Nucleated Red Blood Cells % (auto) 0.0, Anion Gap 4L, Glomerular Filtration Rate 46.1L, Calcium Level 8.0L, Magnesium Level 1.9, Thyroid Stimulating Hormone (TSH) 54.400H, Free Thyroxine Index 1.6, Thyroxine (T4) 5.4, Triiodothyronine (T3) Uptake 30 CBC/BMP Laboratory Tests 01/31/19 05:53 Microbiology Microbiology 01/27/19 Blood Culture - Preliminary, Resulted No Growth after 72 hours. All specime... 01/26/19 Gram Stain - Final, Complete 01/26/19 Sputum Culture - Final, Complete Yeast Like Organism Discharge Medications Scheduled Escitalopram Oxalate (Escitalopram Oxalate) 20 Mg Tablet, 20 MG PO DAILY Gabapentin (Gabapentin) 300 Mg Capsule, 300 MG PO Q6H Levothyroxine Sodium (Levothyroxine Sodium) 150 Mcg Tablet, 150 MCG PO DAILY@06 Liothyronine Sodium (Cytomel) 25 Mcg Tablet, 12.5 MCG PO DAILY Methadone HCl (Methadone HCl) 5 Mg/5 Ml Solution, 45 MG PO DAILY, (Reported) Omeprazole (Omeprazole) 20 Mg Capsule.dr, 20 MG PO DAILY Prednisone (Prednisone) 20 Mg Tablet, 20 MG PO DAILY Quetiapine Fumarate (Quetiapine Fumarate) 25 Mg Tablet, 25 MG PO QHS Scheduled PRN Fluticasone Furoate (Arnuity Ellipta) 50 Mcg Blst.w.dev, 50 MCG IN DAILYPRN PRN for SHORTNESS OF BREATH Ipratropium/Albuterol Sulfate (Iprat-Albut 0.5-3(2.5) mg/3 ml) 3 Ml Ampul.neb, 3 ML NEB Q4HP PRN for SOB/WHEEZING Trazodone HCl (Trazodone HCl) 100 Mg Tablet, 100 MG PO QHS PRN for SLEEP Allergies Coded Allergies: No Known Allergies (Verified , 10/22/18) BECKA MCKENZIE DO Jan 31, 2019 20:02
== END 2019-01-31 16:00 | disposition home or self-care (01) | DRG 52 ==
LOC: M MSPAV 11:32 → EEVIPCON 11:32
PROVIDERS: ADMIT Internal Medicine; ATTEND Internal Medicine
DX: E03.5 Myxedema coma (principal); N17.9 Acute kidney failure, unspecified; J18.1 Lobar pneumonia, unspecified organism; R45.851 Suicidal ideations; D69.6 Thrombocytopenia, unspecified; F17.210 Nicotine dependence, cigarettes, uncomplicated; D72.819 Decreased white blood cell count, unspecified; F32.9 Major depressive disorder, single episode, unspecified; D86.9 Sarcoidosis, unspecified; F41.9 Anxiety disorder, unspecified; R00.2 Palpitations; G47.00 Insomnia, unspecified; K59.09 Other constipation; Z79.899 Other long term (current) drug therapy; Z79.891 Long term (current) use of opiate analgesic; Z91.14 Patient's other noncompliance with medication regimen

== ENCOUNTER 2019-02-12 16:50 | Observation (INO) | payer MEDICAID, OTHER ==
[~2019-02-12] VITALS: Ht 160 cm; Wt 86.5 kg
[~2019-02-12 16:50] MED LIST changes: +ARNU50IN IN; +BUDE0.5S6 INH; +CYTO25TA6 PO; +ESCI20TA PO; +IPRA0.00 NEB; +OMEP-218 PO; +PERF20NE2 INH; +PRED20TA PO; +TRAZ-189 PO
[2019-02-12] MEDS ORDERED: METH10CO PO (17:03)
[2019-02-12 18:17] LABS: HEMOGLOBIN 12.4 g/dl (12.0-15.5); MEAN CORPUSCULAR HEMOGLOBIN 32.5 pg (27.0-33.0); MEAN CORPUSCULAR HGB CONC 32.6 g/dl (32.0-36.5); MEAN CORPUSCULAR VOLUME 99.5 fl (80.0-96.0); PLATELET COUNT, AUTOMATED 142 10^3/uL (150-450); RED BLOOD COUNT 3.82 10^6/uL (4.00-5.40); WHITE BLOOD COUNT 5.3 10^3/uL (4.0-10.0)
[2019-02-12] MEDS ORDERED: PROMETHAZINE 25 MG TAB PO ONE (18:45)
[2019-02-12 18:49] LABS: AMPHETAMINES LEVEL URINE NEGATIVE (NEGATIVE); BARBITURATES URINE NEGATIVE (NEGATIVE); BENZODIAZEPINES URINE NEGATIVE (NEGATIVE); CANNABINOIDS URINE POSITIVE (NEGATIVE); COCAINE METABOLITE URINE NEGATIVE (NEGATIVE); METHADONE URINE POSITIVE (NEGATIVE); OPIATES URINE NEGATIVE (NEGATIVE); PHENCYCLIDINE URINE NEGATIVE (NEGATIVE)
[2019-02-12 18:53] LABS: HCG, SERUM QUALITATIVE NEGATIVE (NEGATIVE)
[2019-02-12 19:11] LABS: ACETAMINOPHEN LEVEL < 2.0 UG/ML (10.0-30.0); ALBUMIN 4.2 GM/DL (3.2-5.2); ALT/SGPT 24 U/L (12-78); BILIRUBIN,DIRECT 0.2 MG/DL (0.0-0.2); BILIRUBIN,TOTAL 0.8 MG/DL (0.2-1.0); BLOOD UREA NITROGEN 10 MG/DL (7-18); CALCIUM LEVEL 8.7 MG/DL (8.5-10.1); CARBON DIOXIDE LEVEL 29 MEQ/L (21-32); CHLORIDE LEVEL 108 MEQ/L (98-107); CREATININE FOR GFR 1.23 MG/DL (0.55-1.30); ETHYL ALCOHOL (ETHANOL) < 0.003 % (0.000-0.010); GLOMERULAR FILTRATION RATE 52.6 (>60); GLUCOSE, FASTING 76 MG/DL (70-100); POTASSIUM SERUM 3.8 MEQ/L (3.5-5.1); SALICYLATE LEVEL 4.2 MG/DL (5.0-30.0); SODIUM LEVEL 146 MEQ/L (136-145); TOTAL PROTEIN 7.5 GM/DL (6.4-8.2)
[2019-02-12] MEDS ORDERED: ARNU1INH IN (19:48)
[2019-02-12] MEDS ORDERED: LEXA1TAB2 PO (19:48)
[2019-02-12] MEDS ORDERED: TRAZ-163 PO (19:55)
[2019-02-12] MEDS ORDERED: PRED20TA PO (19:55)
[2019-02-12] MEDS ORDERED: GABA-843 PO (19:55)
[2019-02-12] MEDS ORDERED: QUET1TAB7 PO (19:55)
[2019-02-12] MEDS ORDERED: IPRA0.00 IN (19:55)
[2019-02-12] MEDS ORDERED: OMEP-218 PO (19:55)
[2019-02-12] MEDS ORDERED: SYNT150T PO (19:55)
[2019-02-12] MEDS ORDERED: LIOT25TA8 PO (19:55)
[2019-02-12] MEDS ORDERED: CLON0.3T PO (20:00)
[2019-02-12] MEDS ORDERED: WELLTAB40 PO (20:00)
--- NOTE | 2019-02-12 21:22 | HPEPDOC ---
[facility] Medical History & Physical Date of Admission Feb 12, 2019 Date of Service: Feb 12, 2019 Primary Care Physician: A Other Provider Karl Lott MD Attending Physician: RUCHI SRINIVASAN MD History and Physical TIME OF SERVICE: 10:20 PM CHIEF COMPLAINT: Feeling depressed HISTORY OF PRESENT ILLNESS: This is a 38 old female who presents with complaints of feeling depressed and anxious. She is not sure how long she's felt this way but denies having suicida l, homicidal ideations. Other associated symptoms include poor appetite, sleeping a lot, and lack of interest in various activities. She also suspects that her "thyroid has been acting up" because she left her medications at a friend's house and missed the last 2 doses. She does admit to feeling mentally slow, and reports her skin is dry, but she denies being constipated. REVIEW OF SYSTEMS: 12 point review of systems negative except as listed in HPI PAST MEDICAL/ SURGICAL HISTORY: Hypothyroidism Depression. Seizure disorder. Chronic anxiety Sarcodosis Street of Noncompliance Status post SOCIAL HISTORY: Smoker. Polysubstance abuse FAMILY HISTORY: Diabetes ALLERGIES: Please see below. HOME MEDICATIONS: Please see below. PHYSICAL EXAMINATION: VITAL SIGNS: Please see below. GENERAL APPEARANCE: Well-nourished, well-developed, not in apparent distress, keeps falling asleep during the exam HEENT: Normocephalic, atraumatic, mucous membranes moist and pink CARDIOVASCULAR: Regular rate and rhythm. No murmurs, rubs or gallops LUNGS: Clear to auscultation bilaterally on room air ABDOMEN: Soft and nontender on palpation MUSCULOSKELETAL: Range of motion intact in all 4 extremities. There is no pretibial edema INTEGUMENT: Skin is warm and dry. Extremities warm and well-perfused NEUROLOGICAL: Cranial nerves II through XII grossly intact. Speech is not dysarthric PSYCHIATRIC: She is alert and oriented, able to understand and follow commands. She appears to have some psychomotor slowing LABORATORY DATA: See below. ASSESSMENT: Ms. Webb is a 38 old female the past medical history of depression, hypothyroidism, seizure disorder, depression, and anxiety who will be admitted for evaluation of elevated TSH in the setting of noncompliance with her medications. PLAN: 1. Elevated TSH, likely due to noncompliance with her thyroid medications. Today the patient does not have myxedema coma. She does not have pretibial edema. She attributes her sleepiness to clonidine which is a well-known side effect. Plan: Resume thyroid medications/repeat repeat thyroid function studies in about 6 weeks. 2. Seizure disorder. Plan: Resume home meds 3. Major depressive disorder / anxiety Plan: Resume home meds and follow-up with psych in the morning / 1:1 sitter 4. Sarcoidosis Plan: resume home meds 5.History of polysubstance abuse. Plan: Follow-up EKG for QTC/resume home 6. Obesity Her BMI >34.4kg/m2 Plan: can f/u w PCP for STOP [facility]ANG questionnaire & director medical consult / recommend cardiovascular exercise for 40 min 4-5 days a week DVT prophylaxis with SCDs. Disposition likely transferred to inpatient psych tomorrow Vital Signs Vital Signs Date Time Temp Pulse Resp B/P (MAP) Pulse Ox O2 Delivery O2 Flow Rate FiO2 02/12/19 19:02 02/12/19 16:51 98.3 74 24 99 Room Air Laboratory Data Labs 24H Laboratory Tests 2 02/12/19 18:07: Nucleated Red Blood Cells % (auto) 0.0, Anion Gap 9, Glomerular Filtration Rate 52.6L, Calcium Level 8.7, Total Bilirubin 0.8, Direct Bilirubin 0.2, Aspartate Amino Transf (AST/SGOT) 23, Alanine Aminotransferase (ALT/SGPT) 24, Alkaline Phosphatase 80, Total Protein 7.5, Albumin 4.2, Albumin/Globulin Ratio 1.27, Thyroid Stimulating Hormone (TSH) 22.400H, Human Chorionic Gonadotropin, Qual NEGATIVE, Salicylates Level 4.2L, Urine Opiates Screen NEGATIVE, Urine Methadone Screen POSITIVEH, Acetaminophen Level < 2.0L, Urine Barbiturates Screen NEGATIVE, Urine Phencyclidine Screen NEGATIVE, Urine Amphetamines Screen NE GATIVE, Urine Benzodiazepines Screen NEGATIVE, Urine Cocaine Metabolite Screen NEGATIVE, Urine Cannabinoids Screen POSITIVEH, Ethyl Alcohol Level < 0.003 CBC/BMP Laboratory Tests 02/12/19 18:07 Home Medications Scheduled Bupropion HCl (Wellbutrin Xl) 300 Mg Tab.er.24h, 300 MG PO DAILY NEW RX, PATIENT HAS NOT STARTED Clonidine HCl (Clonidine HCl) 0.3 Mg Tablet, 0.3 MG PO BID NEW RX, PATIENT HAS NOT STARTED Escitalopram Oxalate (Lexapro) 20 Mg Tablet, 20 MG PO DAILY Gabapentin (Gabapentin) 300 Mg Capsule, 300 MG PO Q6H Levothyroxine Sodium (Synthroid) 150 Mcg Tablet, 150 MCG PO DAILY Liothyronine Sodium (Liothyronine Sodium) 25 Mcg Tablet, 12.5 MCG PO DAILY Methadone HCl (Methadone HCl) 10 Mg/1 Ml Oral.conc, 65 MG PO DAILY Omeprazole (Omeprazole) 20 Mg Capsule.dr, 20 MG PO DAILY Prednisone (Prednisone) 20 Mg Tablet, 20 MG PO DAILY Quetiapine Fumarate (Quetiapine Fumarate) 25 Mg Tablet, 25 MG PO QHS Scheduled PRN Ipratropium/Albuterol Sulfate (Iprat-Albut 0.5-3(2.5) mg/3 ml) 3 Ml Ampul.neb, 1 INHALATION IN Q4H PRN for SOB/WHEEZING Trazodone HCl (Trazodone HCl) 100 Mg Tablet, 100 MG PO QHS PRN for INSOMNIA Allergies Coded Allergies: No Known Allergies (Verified , 10/22/18) A-FIB/CHADSVASC A-FIB History Current/History of A-Fib/PAF?: No Current PO Anticoag Therapy: No RUCHI SRINIVASAN MD Feb 12, 2019 21:22
[2019-02-12 21:23] LABS: FREE THYROXINE INDEX 2.1 % (1.3-4.8); T UPTAKE 29 % (30-39); THYROXINE (T4) 7.3 UG/DL (4.5-12.0)
[2019-02-12] MEDS ORDERED: IPRATROPIUM 0.5MG/ALBUTEROL 2.5MG INH SOL UD 3ML (DUONEB)(J7620) INH PRN (21:30)
[2019-02-12] MEDS ORDERED: ACETAMINOPHEN TAB 650MG DOSE (2X325MG) PO PRN (21:30)
[2019-02-12 21:58] VITALS: BP 127/77
[2019-02-12] MEDS: QUEtiapine FUMARATE 25 MG TAB PO SCH (21:58)
[2019-02-12] MEDS: cloNIDine 0.1 MG TAB PO SCH (21:58)
[2019-02-12 23:15] VITALS: BP 137/98
[2019-02-12] MEDS: GABAPENTIN 300 MG CAP PO SCH (23:30)
[2019-02-13] MEDS: GABAPENTIN 300 MG CAP PO SCH ×3 (05:38→17:53)
[2019-02-13 06:00] VITALS: BP 89/59
[2019-02-13 06:58] LABS: HEMATOCRIT 33.7 % (36.0-47.0); HEMOGLOBIN 11.2 g/dl (12.0-15.5); MEAN CORPUSCULAR HEMOGLOBIN 32.7 pg (27.0-33.0); MEAN CORPUSCULAR HGB CONC 33.2 g/dl (32.0-36.5); MEAN CORPUSCULAR VOLUME 98.5 fl (80.0-96.0); PLATELET COUNT, AUTOMATED 141 10^3/uL (150-450); RED BLOOD COUNT 3.42 10^6/uL (4.00-5.40); WHITE BLOOD COUNT 3.3 10^3/uL (4.0-10.0)
[2019-02-13 07:00] VITALS: BP 99/62
[2019-02-13 07:27] LABS: CALCIUM LEVEL 8.5 MG/DL (8.5-10.1); CREATININE FOR GFR 1.26 MG/DL (0.55-1.30); GLOMERULAR FILTRATION RATE 51.2 (>60); MAGNESIUM LEVEL 1.8 MG/DL (1.8-2.4); POTASSIUM SERUM 3.2 MEQ/L (3.5-5.1)
[2019-02-13 08:42] VITALS: BP 101/71
[2019-02-13] MEDS: cloNIDine 0.1 MG TAB PO SCH (08:51)
[2019-02-13] MEDS: predniSONE 20 MG TAB PO SCH (08:52)
[2019-02-13] MEDS: ESCITALOPRAM OXALATE 10 MG TAB (LEXAPRO) PO SCH (08:52)
[2019-02-13] MEDS: LEVOTHYROXINE 150MCG TABLET (0.15MG) PO SCH (08:52)
[2019-02-13] MEDS: OMEPRAZOLE 20 MG CAP PO SCH (08:52)
[2019-02-13] MEDS: METHADONE 10 MG TAB (S0109) PO SCH (08:52)
[2019-02-13] MEDS: LIOTHYRONINE 25 MCG TAB PO SCH (08:53)
[2019-02-13] MEDS ORDERED: METHADONE 10 MG TAB (S0109) PO ONE (09:00)
[2019-02-13] MEDS: buPROPion **XL** TABLET 150MG (WELLBUTRIN XL) PO SCH (09:21)
[2019-02-13] MEDS: NICOTINE 21MG/24HR 1 EA TRANSDERMAL TD SCH (12:08)
--- NOTE | 2019-02-13 13:40 | IPNPDOC ---
Text Note Date of Service The patient was seen on 02/13/19. NOTE Subjective: No any acute events overnight. Patient denies any suicidal ideation, stated that she was not compliant to her medical regimen. She stated that she didn't take his psych medications and thyroid hormone Objective: VITAL SIGNS: Please see below. GENERAL APPEARANCE: Obese female HEENT: Normocephalic, atraumatic. Mucous members moist and pink CARDIOVASCULAR: Regular rate and rhythm. No murmurs, rubs or gallops. Radial pulses are intact. There is no lower extremity edema LUNGS: Lungs clear to auscultations bilaterally ABDOMEN: Bowel sounds are hypoactive. Abdomen is soft and nontender. MUSCULOSKELETAL: Range of motion is intact in all 4 extremities NEUROLOGICAL: Cranial nerves II-12 are grossly intact. Speech is not dysarthric Patient is 38 years old female with past medical history of hypothyroidism, sarcoidosis, anxiety, depression, noncompliance to treatment presented hospital with hypothyroidism, depression and anxiety secondary to noncompliance to medications Hypothyroidism TSH significantly elevated. Of note patient was recently admitted with myxedema coma. Restarted thyroid medications by mouth. Patient is more alert and oriented and awake in the morning Will continue to monitor TSH level Anxiety/depression Patient denies any suicidal ideation Appreciate/agree with psych consult Will check EKG for QTc prolongation History of sarcoidosis Continue prednisone 20 mg Insomnia Continue trazodone 50-100 mg by mouth daily at bedtime History of polysubstance abuse. 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
[2019-02-13] MEDS ORDERED: POTASSIUM CHLORIDE 10 MEQ SR TABLET PO ONE (13:45)
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
[2019-02-13 14:00] VITALS: BP 104/67
[2019-02-13] MEDS ORDERED: PILL CUTTER 1 EACH XX PRN (15:15)
[2019-02-13] MEDS: NICOTINE POLACRILEX 2 MG GUM PO PRN ×2 (15:20→17:53)
[2019-02-13] MEDS: QUEtiapine FUMARATE 25 MG TAB PO SCH (20:01)
[2019-02-13] MEDS: traZODone 100 MG TAB PO PRN (21:16)
[2019-02-13 22:00] VITALS: BP 129/84
[2019-02-14] MEDS: GABAPENTIN 300 MG CAP PO SCH ×5 (00:16→23:25)
[2019-02-14 06:00] VITALS: BP 124/80
--- NOTE | 2019-02-14 06:06 | ECGEPIP ---
[facility] Test Date: 2019-02-13 Pat Name: EDWIN LARKIN Department: Room: [place] [address] Gender: Female Resin Maker: MARY : 1980 Requested By: BECKA MCKENZIE Order Number: [id number] Reading MD: Wendie Allen Measurements Intervals [place] Rate: 49 P: 9 ID: [id number] QRS: 33 QRSD: 93 T: -5 QT: 415 QTc: 378 Interpretive Statements SINUS BRADYCARDIA RATE SLOWER MODERATE T-WAVE ABNORMALITY, CONSIDER ANTEROLATERAL ISCHEMIA ALSO INF T ABN SLIGHTLY MORE MARKED C/W 01/27/19 Electronically Signed on 02-14-2019 6:06:20 EST by Wendie Allen
[2019-02-14] MEDS: OMEPRAZOLE 20 MG CAP PO SCH (08:14)
[2019-02-14] MEDS: ESCITALOPRAM OXALATE 10 MG TAB (LEXAPRO) PO SCH (08:14)
[2019-02-14] MEDS: buPROPion **XL** TABLET 150MG (WELLBUTRIN XL) PO SCH (08:14)
[2019-02-14] MEDS: predniSONE 20 MG TAB PO SCH (08:14)
[2019-02-14] MEDS: LIOTHYRONINE 25 MCG TAB PO SCH (08:14)
[2019-02-14] MEDS: LEVOTHYROXINE 150MCG TABLET (0.15MG) PO SCH (08:14)
[2019-02-14] MEDS: METHADONE 10 MG TAB (S0109) PO SCH (08:15)
[2019-02-14] MEDS: NICOTINE 21MG/24HR 1 EA TRANSDERMAL TD SCH (08:16)
[2019-02-14 09:19] LABS: HEMOGLOBIN 11.8 g/dl (12.0-15.5); MEAN CORPUSCULAR HEMOGLOBIN 32.9 pg (27.0-33.0); MEAN CORPUSCULAR HGB CONC 32.8 g/dl (32.0-36.5); MEAN CORPUSCULAR VOLUME 100.3 fl (80.0-96.0); PLATELET COUNT, AUTOMATED 155 10^3/uL (150-450); RED BLOOD COUNT 3.59 10^6/uL (4.00-5.40); WHITE BLOOD COUNT 5.1 10^3/uL (4.0-10.0)
[2019-02-14] MEDS: NICOTINE POLACRILEX 2 MG GUM PO PRN ×4 (09:19→17:07)
[2019-02-14 09:47] LABS: CREATININE FOR GFR 1.33 MG/DL (0.55-1.30); GLOMERULAR FILTRATION RATE 48.1 (>60); MAGNESIUM LEVEL 1.8 MG/DL (1.8-2.4); POTASSIUM SERUM 3.6 MEQ/L (3.5-5.1)
[2019-02-14] MEDS ORDERED: LEXA1TAB2 PO (11:24)
[2019-02-14] MEDS ORDERED: WELLTAB40 PO (11:24)
[2019-02-14] MEDS ORDERED: IPRA0.00 IN (11:24)
[2019-02-14] MEDS ORDERED: OMEP-218 PO (11:24)
[2019-02-14] MEDS ORDERED: QUET1TAB7 PO (11:24)
[2019-02-14] MEDS ORDERED: PRED20TA PO (11:24)
[2019-02-14] MEDS ORDERED: LIOT25TA8 PO (11:24)
[2019-02-14] MEDS ORDERED: GABA-843 PO (11:24)
[2019-02-14] MEDS ORDERED: SYNT150T PO (11:24)
[2019-02-14] MEDS ORDERED: CLON0.3T PO (11:24)
[2019-02-14] MEDS ORDERED: TRAZ-163 PO (11:24)
[2019-02-14] MEDS: NS 1,000 ML IV SCH ×2 (12:30→21:01)
[2019-02-14 14:00] VITALS: BP 144/96
--- NOTE | 2019-02-14 16:08 | IPNPDOC ---
Date Seen The patient was seen on 02/14/19. Progress Note SUBJECTIVE: Patient seen and examined this morning, sitting comfortably in bed. She states her depression and anxiety feel worse than baseline, but stable and she denies feeling any suicidal ideation or homicidal ideation. She does report feeling some numbness and tingling in bilateral lower extremities. She denies any recurrence of her palpitations. OBJECTIVE PHYSICAL EXAMINATION: VITAL SIGNS: Please see below. GENERAL: Alert, comfortable, in no acute distress HEENT: Normocephalic, atraumatic, PERRLA, EOMI, moist mucous membranes NECK: Supple, trachea midline, no lymphadenopathy, no JVD CARDIOVASCULAR: Regular rate and rhythm, normal S1 and S2. No murmurs, rubs, or gallops RESPIRATORY: Clear to auscultation bilaterally with equal air entry bilaterally. No wheezing, rhonchi, or rales. ABDOMEN: Soft, nontender, nondistended, bowel sounds present, no masses or hepatosplenomegaly appreciated EXTREMITIES: No cyanosis or edema. Pulses 2+/4 in bilateral upper and lower extremities SKIN: [place], warm, dry NEUROLOGIC: Alert and oriented 3 to person, place and time. Cranial nerves 2-12 grossly intact. No focal deficits appreciated PSYCHIATRIC: Mood and affect appropriate LABORATORY DATA, IMAGING STUDIES, MICROBIOLOGY: Please see below. ASSESSMENT: Ms. Webb is a 38 old female the past medical history of depression, hypothyroidism, seizure disorder, depression, and anxiety who will be admitted for evaluation of elevated TSH in the setting of noncompliance with her medications. PLAN: # Elevated TSH, likely due to noncompliance with her thyroid medications. - prior admission for myxedema coma, no current evidence of myxedema coma - continue home thyroid medications, suggest repeat blood tests in the outpt setting in 6 weeks # Elevated Cr - bump in Cr this morning from 1.26 to 1.33 - trial of IV fluids to see if this improves, recheck BMP this evening # bilateral LE paresthesias - pt reports bilateral LE numbness/tingling, no change in sensation on neurologic exam - will check B12, folate, HgA1c # Seizure disorder. - continue home medications # Major depressive disorder / anxiety - stable, pt denies SI/HI - Psychiatry consult, no indication for inpatient psychiatric hospitalization per their recommendations # Sarcoidosis - continue home medication # History of polysubstance abuse. - continue home methadone # Obesity - BMI >34.4kg/m2, complicates care DVT prophylaxis: SCDs, ambulation Disposition: likely d/c home tomorrow w/ 1 week refill of home medications Attending Physician Addendum: I have independently interviewed and examined the patient at the bedside, and agree with the documented physical findings as management plan as documented elena osullivan, which has been discussed with the patient and my Resident physician. VS, I&O, 24H, Fishbone Vital Signs/I&O Vital Signs Date Time Temp Pulse Resp B/P (MAP) Pulse Ox O2 Delivery O2 Flow Rate FiO2 02/14/19 14:00 98.5 63 18 144/96 (112) 96 Room Air I&O- Last 24 Hours up to 6 AM 02/14/19 06:00 Intake Total 540 ml Output Total 1100 ml Balance -560 ml Laboratory Data 24H LABS Laboratory Tests 2 02/14/19 08:19: Nucleated Red Blood Cells % (auto) 0.0, Anion Gap 6L, Glomerular Filtration Rate 48.1L, Calcium Level 10.0#, Magnesium Level 1.8, Vitamin B12 Level 313 02/14/19 11:25: 02/14/19 12:36: Folate 7.6 CBC/BMP Laboratory Tests 02/14/19 08:19 LAUREN ABRAHAM PGY-1 Feb 14, 2019 16:08 LEIGH HEARD MD Feb 14, 2019 16:44
[2019-02-14 18:11] LABS: CALCIUM LEVEL 8.9 MG/DL (8.5-10.1); CREATININE FOR GFR 1.36 MG/DL (0.55-1.30); GLOMERULAR FILTRATION RATE 46.8 (>60); POTASSIUM SERUM 4.6 MEQ/L (3.5-5.1)
[2019-02-14 19:36] VITALS: BP_SYST 128; BP_SYST 159; BP_DIAS 133; BP_DIAS 84
[2019-02-14] MEDS: QUEtiapine FUMARATE 25 MG TAB PO SCH (19:39)
[2019-02-14] MEDS: traZODone 100 MG TAB PO PRN (21:01)
[2019-02-14 22:00] VITALS: BP 140/67
[2019-02-15 04:22] LABS: HEMOGLOBIN A1c 4.5 %
[2019-02-15] MEDS: NS 1,000 ML IV SCH (04:36)
[2019-02-15] MEDS: GABAPENTIN 300 MG CAP PO SCH (05:45)
[2019-02-15 06:00] VITALS: BP 109/76
[2019-02-15] MEDS ORDERED: LEVOTHYROXINE 150MCG TABLET (0.15MG) PO SCH (06:00)
[2019-02-15] MEDS ORDERED: LIOTHYRONINE 25 MCG TAB PO SCH (06:00)
[2019-02-15 06:01] LABS: HEMATOCRIT 31.9 % (36.0-47.0); HEMOGLOBIN 10.6 g/dl (12.0-15.5); MEAN CORPUSCULAR HEMOGLOBIN 33.3 pg (27.0-33.0); MEAN CORPUSCULAR HGB CONC 33.2 g/dl (32.0-36.5); MEAN CORPUSCULAR VOLUME 100.3 fl (80.0-96.0); PLATELET COUNT, AUTOMATED 129 10^3/uL (150-450); RED BLOOD COUNT 3.18 10^6/uL (4.00-5.40); WHITE BLOOD COUNT 4.6 10^3/uL (4.0-10.0)
[2019-02-15 06:33] LABS: CALCIUM LEVEL 8.7 MG/DL (8.5-10.1); CREATININE FOR GFR 1.17 MG/DL (0.55-1.30); GLOMERULAR FILTRATION RATE 55.7 (>60); POTASSIUM SERUM 3.4 MEQ/L (3.5-5.1)
[2019-02-15] MEDS ORDERED: POTASSIUM CHLORIDE 10 MEQ SR TABLET PO ONE (08:00)
[2019-02-15] MEDS: NICOTINE 21MG/24HR 1 EA TRANSDERMAL TD SCH (09:26)
[2019-02-15] MEDS: OMEPRAZOLE 20 MG CAP PO SCH (09:27)
[2019-02-15] MEDS: predniSONE 20 MG TAB PO SCH (09:27)
[2019-02-15] MEDS: buPROPion **XL** TABLET 150MG (WELLBUTRIN XL) PO SCH (09:27)
[2019-02-15] MEDS: ESCITALOPRAM OXALATE 10 MG TAB (LEXAPRO) PO SCH (09:27)
[2019-02-15] MEDS: METHADONE 10 MG TAB (S0109) PO SCH (09:28)
[2019-02-15] MEDS: NICOTINE POLACRILEX 2 MG GUM PO PRN (09:34)
--- NOTE | 2019-02-15 13:44 | DS.PDOC ---
Discharge Summary General Date of Admission Feb 12, 2019 at 16:51 Date of Discharge 02/15/2019 Attending Physician: JOSIE AZAR MD Discharge Summary PROCEDURES PERFORMED DURING STAY: None. ADMITTING DIAGNOSES: 1. Hypothyroidism with elevated TSH due to medication noncompliance. 2. Seizure disorder. 3. Major depressive disorder/anxiety. 4. Sarcoidosis. 5. History of polysubstance abuse. 6. Obesity DISCHARGE DIAGNOSES: 1. Hypothyroidism with elevated TSH due to medication noncompliance. 2. Seizure disorder. 3. Major depressive disorder/anxiety. 4. Sarcoidosis. 5. History of polysubstance abuse. 6. Obesity COMPLICATIONS/CHIEF COMPLAINT: High Thyroid Stimulating Hormone Lvl, Med Non Comp. HISTORY OF PRESENT ILLNESS: 38-year-old female presented to the emergency room with complaints of increased feelings of depression and anxiety with some suicidal ideation. She also reports a poor diet, increased sleep, and lack of interest in typically enjoyable activities. She is concerned that her "thyroid has been acting up" because she left medications at a friend's house and was unable to get them back, leading to her missing multiple doses of all her home medications. Of note, she was recently admitted for myxedema coma. On initial laboratory evaluation, patient's TSH was found to be elevated at 22.2. HOSPITAL COURSE: The patient was admitted to the hospital and restarted on all of her regular home medications. Psychiatry was consult dated for her suicidal ideation and a sitter was placed. She reported resolution of her feelings of suicidal ideation. Psychiatry evaluated the patient and saw no indication for involuntary psychiatric admission and the patient was not interested in involuntary psychiatric admission, so she will follow up with her outpatient psychiatric provider. The patient reported some improvement in her symptoms. She was found to have an elevated creatinine, which was treated with IV fluids overnight and subsequently resolved. The patient also reported some numbness in bilateral feet, workup including vitamin B12 level, folate level, and hemoglobin A1c were normal. Patient can follow-up for further evaluation of this in the outpatient setting. The patient also reported that he was unable to retrieve all of her medications because the person she was staying with refuses to get them back. She'll be given a 7 day supply of her medications and was instructed to follow up with her PCP within the next week to obtain further refills. On the day of discharge, patient is currently stable for discharge. DISCHARGE MEDICATIONS: Please see below. ALLERGIES: Please see below. PHYSICAL EXAMINATION ON DISCHARGE: VITAL SIGNS: Please see below. GENERAL: Alert, comfortable, in no acute distress HEENT: Normocephalic, atraumatic, PERRLA, EOMI, moist mucous membranes NECK: Supple, trachea midline, no lymphadenopathy, no JVD CARDIOVASCULAR: Regular rate and rhythm, normal S1 and S2. No murmurs, rubs, or gallops RESPIRATORY: Clear to auscultation bilaterally with equal air entry bilaterally. No wheezing, rhonchi, or rales. ABDOMEN: Soft, nontender, nondistended, bowel sounds present, no masses or hepatosplenomegaly appreciated EXTREMITIES: No cyanosis or edema. Pulses 2+/4 in bilateral upper and lower extremities SKIN: [place], warm, dry NEUROLOGIC: Alert and oriented 3 to person, place and time. Cranial nerves 2-12 grossly intact. No focal deficits appreciated PSYCHIATRIC: Mood and affect appropriate LABORATORY DATA: Please see below. IMAGING: None PROGNOSIS:. Good ACTIVITY: As tolerated. DIET: As tolerated DISCHARGE PLAN:. Home DISPOSITION: Home, Self-Care. DISCHARGE INSTRUCTIONS: 1. Follow-up with your PCP in 7 days 2. We will refill your medications for a one-week supply of each. You must follow up with your PCP for further refills. 3. If your symptoms return or your condition worsens, please call your PCP or re turn to the ED for further evaluation. ITEMS TO FOLLOWUP ON ON OUTPATIENT: 1. F/U with PCP within next 7 days for further medication refills DISCHARGE CONDITION: Stable. TIME SPENT ON DISCHARGE: Greater than 35 minutes. Vital Signs/I&Os Vital Signs Date Time Temp Pulse Resp B/P (MAP) Pulse Ox O2 Delivery O2 Flow Rate FiO2 02/15/19 06:00 98.9 100 18 109/76 (87) 96 02/14/19 19:36 Room Air I&O- Last 24 Hours up to 6 AM 02/15/19 06:00 Intake Total 4565 ml Output Total 1650 ml Balance 2915 ml Laboratory Data Labs 24H Laboratory Tests 2 02/14/19 17:11: Anion Gap 3L, Glomerular Filtration Rate 46.8L, Calcium Level 8.9 02/15/19 05:38: Anion Gap 5L, Glomerular Filtration Rate 55.7L, Calcium Level 8.7, Nucleated Red Blood Cells % (auto) 0.0 CBC/BMP Laboratory Tests 02/14/19 17:11 02/15/19 05:38 Discharge Medications Scheduled Bupropion HCl (Wellbutrin Xl) 300 Mg Tab.er.24h, 300 MG PO DAILY Clonidine HCl (Clonidine HCl) 0.3 Mg Tablet, 0.3 MG PO BID Escitalopram Oxalate (Lexapro) 20 Mg Tablet, 20 MG PO DAILY Gabapentin (Gabapentin) 300 Mg Capsule, 300 MG PO Q6H Levothyroxine Sodium (Synthroid) 150 Mcg Tablet, 150 MCG PO DAILY Liothyronine Sodium (Liothyronine Sodium) 25 Mcg Tablet, 12.5 MCG PO DAILY Methadone HCl (Methadone HCl) 10 Mg/1 Ml Oral.conc, 65 MG PO DAILY, (Reported) Omeprazole (Omeprazole) 20 Mg Capsule.dr, 20 MG PO DAILY Prednisone (Prednisone) 20 Mg Tablet, 20 MG PO DAILY Quetiapine Fumarate (Quetiapine Fumarate) 25 Mg Tablet, 25 MG PO QHS Scheduled PRN Ipratropium/Albuterol Sulfate (Iprat-Albut 0.5-3(2.5) mg/3 ml) 3 Ml Ampul.neb, 1 INHALATION IN Q4H PRN for SOB/WHEEZING Trazodone HCl (Trazodone HCl) 100 Mg Tablet, 100 MG PO QHS PRN for INSOMNIA Allergies Coded Allergies: No Known Allergies (Verified , 10/22/18) ATTENDING NOTE I have personally evaluated and examined the patient. Discussed with residents a nd student regarding plan of care and agree with the above assessment and plan. LAUREN ABRAHAM PGY-1 Feb 15, 2019 13:44 JOSIE AZAR MD Feb 15, 2019 19:20
== END 2019-02-15 12:14 | disposition home or self-care (01) ==
LOC: M ED 16:50 → M ED INP 16:51 → M MSPAV 23:02
PROVIDERS: ADMIT Internal Medicine; ATTEND General Practice
DX: E03.9 Hypothyroidism, unspecified (principal); R94.6 Abnormal results of thyroid function studies; Z91.14 Patient's other noncompliance with medication regimen; G40.909 Epilepsy, unspecified, not intractable, without status epilepticus; F32.9 Major depressive disorder, single episode, unspecified; F41.9 Anxiety disorder, unspecified; D86.9 Sarcoidosis, unspecified; F19.10 Other psychoactive substance abuse, uncomplicated; Z79.891 Long term (current) use of opiate analgesic; E66.9 Obesity, unspecified; Z68.34 Body mass index [BMI] 34.0-34.9, adult; R45.851 Suicidal ideations; R79.89 Other specified abnormal findings of blood chemistry; R20.0 Anesthesia of skin; G47.00 Insomnia, unspecified; Z79.899 Other long term (current) drug therapy; Z79.52 Long term (current) use of systemic steroids; F17.200 Nicotine dependence, unspecified, uncomplicated
CPT/HCPCS: 36415; 80048; 80076; 80307; 82607; 82746; 83036; 83735; 84436; 84443; 84479; 84703; 85027; 93005; 99285; G0480

== ENCOUNTER → 2019-02-28 | Outpatient (REF) | payer MEDICAID ==
[~2019-02-28] MED LIST changes: +ARNU1INH IN; +IPRA0.00 IN; +LEXA1TAB2 PO; +LIOT25TA8 PO; +METH10CO PO; +WELLTAB40 PO
[2019-02-28 19:23] LABS: ALBUMIN 4.2 GM/DL (3.2-5.2); CALCIUM LEVEL 9.1 MG/DL (8.5-10.1); CREATININE FOR GFR 1.5 MG/DL (0.55-1.30); GLOMERULAR FILTRATION RATE 41.8 (>60); PHOSPHORUS LEVEL 2.5 MG/DL (2.5-4.9); POTASSIUM SERUM 4.5 MEQ/L (3.5-5.1)
[2019-02-28 19:26] LABS: BASO % 0.4 % (0.0-1.0); EOS % 0.5 % (0.0-3.0); HEMATOCRIT 40.4 % (36.0-47.0); HEMOGLOBIN 12.9 g/dl (12.0-15.5); LYMPH % 12.1 % (24.0-44.0); MEAN CORPUSCULAR HEMOGLOBIN 32.5 pg (27.0-33.0); MEAN CORPUSCULAR HGB CONC 31.9 g/dl (32.0-36.5); MEAN CORPUSCULAR VOLUME 101.8 fl (80.0-96.0); MONO # 0.3 10^3/uL (0.0-0.8); MONO % 3.9 % (0.0-5.0); NEUTROPHILS # 6.5 10^3/uL (1.5-8.5); NEUTROPHILS % 82.7 % (36.0-66.0); PLATELET COUNT, AUTOMATED 223 10^3/uL (150-450); RED BLOOD COUNT 3.97 10^6/uL (4.00-5.40); WHITE BLOOD COUNT 7.9 10^3/uL (4.0-10.0)
[2019-02-28 19:59] LABS: APPEARANCE, URINE CLOUDY (CLEAR); BACTERIA, URINE AUTO 2+ (NEGATIVE); BILIRUBIN, URINE AUTO NEGATIVE (NEGATIVE); BLOOD, URINE BLOOD 1+ (NEGATIVE); CALCIUM OXALATE CRYSTALS SMALL; COLOR, URINE YELLOW (YELLOW); GLUCOSE, URINE (UA) AUTO NEGATIVE (NEGATIVE); KETONE, URINE AUTO NEGATIVE (NEGATIVE); LEUKOCYTE ESTERASE, URINE AUTO 3+ (NEGATIVE); MUCUS, URINE SMALL (NEGATIVE); NITRITE, URINE AUTO NEGATIVE (NEGATIVE); PROTEIN, URINE AUTO 1+ mg/dL (NEGATIVE); RBC, URINE AUTO 19 /HPF (0-3); SPECIFIC GRAVITY URINE AUTO 1.016 (1.002-1.035); SQUAMOUS EPITHELIAL CELL UR AU 68 /HPF (0-6); UROBILINOGEN, URINE AUTO 0.2 mg/dL (0.0-2.0); WBC, URINE AUTO TNTC /HPF (0-3)
== END ==
LOC: M LAB REF 16:48
PROVIDERS: ATTEND Internal Medicine Nephrology
DX: N18.3 Chronic kidney disease, stage 3 (moderate) (principal); N25.81 Secondary hyperparathyroidism of renal origin; D63.1 Anemia in chronic kidney disease

== ENCOUNTER 2019-04-15 17:41 | Inpatient (IN) | payer OTHER ==
[~2019-04-15] VITALS: Ht 160 cm; Wt 91.0 kg
[~2019-04-15 17:41] MED LIST changes: +GABA600T4 PO; +IPRA0.00 INH; +NICO21PAT TD; +OMEP1CAP73 PO; +PROP10TA56 PO; -TRAZ-163 PO; +TRAZ-257 PO; -TRAZ10TA PO; +TRAZ1TAB12 PO
[2019-04-15] MEDS ORDERED: TRAZ1TAB14 PO ×2 (18:09→22:32)
[2019-04-15 19:02] LABS: HEMATOCRIT 41.3 % (36.0-47.0); MEAN CORPUSCULAR HEMOGLOBIN 29.6 pg (27.0-33.0); MEAN CORPUSCULAR HGB CONC 31.5 g/dl (32.0-36.5); MEAN CORPUSCULAR VOLUME 94.1 fl (80.0-96.0); PLATELET COUNT, AUTOMATED 187 10^3/uL (150-450); RED BLOOD COUNT 4.39 10^6/uL (4.00-5.40); WHITE BLOOD COUNT 6.3 10^3/uL (4.0-10.0)
[2019-04-15 20:11] LABS: AMPHETAMINES LEVEL URINE NEGATIVE (NEGATIVE); BARBITURATES URINE NEGATIVE (NEGATIVE); BENZODIAZEPINES URINE NEGATIVE (NEGATIVE); CANNABINOIDS URINE POSITIVE (NEGATIVE); COCAINE METABOLITE URINE NEGATIVE (NEGATIVE); METHADONE URINE POSITIVE (NEGATIVE); OPIATES URINE NEGATIVE (NEGATIVE); PHENCYCLIDINE URINE NEGATIVE (NEGATIVE)
[2019-04-15] MEDS ORDERED: ONDANSETRON 4 MG ORAL DISINTEGRATING TAB (Q0162 PER 1MG) PO ONE (20:30)
[2019-04-15] MEDS: GABAPENTIN 300 MG CAP PO SCH (21:00)
[2019-04-15 21:19] LABS: HCG, SERUM QUALITATIVE NEGATIVE (NEGATIVE)
[2019-04-15 21:45] LABS: ACETAMINOPHEN LEVEL < 2.0 UG/ML (10.0-30.0); ALBUMIN 3.5 GM/DL (3.2-5.2); ALT/SGPT 13 U/L (12-78); BILIRUBIN,DIRECT < 0.1 MG/DL (0.0-0.2); BILIRUBIN,TOTAL 0.3 MG/DL (0.2-1.0); BLOOD UREA NITROGEN 10 MG/DL (7-18); CALCIUM LEVEL 8.9 MG/DL (8.5-10.1); CARBON DIOXIDE LEVEL 32 MEQ/L (21-32); CHLORIDE LEVEL 102 MEQ/L (98-107); CREATININE FOR GFR 1.27 MG/DL (0.55-1.30); ETHYL ALCOHOL (ETHANOL) < 0.003 % (0.000-0.010); GLOMERULAR FILTRATION RATE 50.4 (>60); GLUCOSE, FASTING 96 MG/DL (70-100); POTASSIUM SERUM 3.9 MEQ/L (3.5-5.1); SALICYLATE LEVEL 3.6 MG/DL (5.0-30.0); SODIUM LEVEL 139 MEQ/L (136-145); TOTAL PROTEIN 6.6 GM/DL (6.4-8.2)
[2019-04-15] MEDS ORDERED: QUEtiapine FUMARATE 25 MG TAB PO ONE (22:15)
[2019-04-15] MEDS ORDERED: GABAPENTIN 300 MG CAP PO ONE (22:15)
[2019-04-15] MEDS ORDERED: ESCI20TA PO (22:32)
[2019-04-15] MEDS ORDERED: SERO1TAB3 PO (22:32)
[2019-04-15] MEDS ORDERED: PROP10TA56 PO (22:32)
[2019-04-15] MEDS ORDERED: ESCI10TA2 PO (22:32)
[2019-04-15] MEDS ORDERED: IPRATROPIUM 0.5MG/ALBUTEROL 2.5MG INH SOL UD 3ML (DUONEB)(J7620) INH PRN (23:15)
[2019-04-15] MEDS ORDERED: MAALOX 30 ML SUSP *UDC PO PRN (23:15)
[2019-04-15] MEDS ORDERED: MOM 30ML SUSPENSION UDC PO PRN (23:15)
[2019-04-16] MEDS: traZODone 50 MG TAB PO PRN ×2 (00:30→20:49)
[2019-04-16] MEDS: ACETAMINOPHEN TAB 650MG DOSE (2X325MG) PO PRN ×2 (00:31→18:59)
[2019-04-16 00:39] VITALS: BP 119/72
[2019-04-16 06:43] VITALS: BP 118/75
[2019-04-16] MEDS: GABAPENTIN 300 MG CAP PO SCH ×2 (08:56→22:00)
[2019-04-16] MEDS: PROPRANOLOL 10 MG TAB PO SCH ×2 (08:57→20:52)
[2019-04-16] MEDS: QUEtiapine FUMARATE 25 MG TAB PO SCH ×3 (08:58→22:00)
[2019-04-16] MEDS: LIOTHYRONINE 25 MCG TAB PO SCH (08:58)
[2019-04-16] MEDS: PILL CUTTER 1 EACH XX PRN (08:58)
[2019-04-16] MEDS: ESCITALOPRAM OXALATE 10 MG TAB (LEXAPRO) PO SCH (08:58)
[2019-04-16] MEDS: OMEPRAZOLE 20 MG CAP PO SCH (08:58)
[2019-04-16] MEDS ORDERED: LIOTHYRONINE 25 MCG TAB PO SCH (09:00)
[2019-04-16] MEDS ORDERED: ESCITALOPRAM OXALATE 10 MG TAB (LEXAPRO) PO SCH ×2 (09:00)
[2019-04-16] MEDS ORDERED: INFLUENZA QUADRIVALENT PF VACCINE 0.5ML SYRINGE (90686) IM ONE (09:00)
[2019-04-16 09:18] LABS: FREE THYROXINE INDEX 0.7 % (1.3-4.8); THYROXINE (T4) 2.6 UG/DL (4.5-12.0)
[2019-04-16] MEDS ORDERED: CEPACOL LOZENGE PO PRN (09:45)
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
--- NOTE | 2019-04-16 10:53 | HPE ---
DATE OF ADMISSION: 04/15/2019 CHIEF COMPLAINT: Cough and sore throat. HISTORY OF PRESENT ILLNESS: This is a 39-year-old female with a history of sarcoidosis, complains of cough that is productive of yellow-green sputum for the past 5 days. No fever, chills. She had nausea yesterday and today that is better with Zofran. Ate her breakfast without any distress. Denies any shortness of breath. Complains of some fatigue. No weight loss or anorexia. No visual changes. No palpitations, syncope, muscle weakness. Complained of joint pain of bilateral elbows. Has a long history of noncompliance with her medications and has not been taking her medications for hypothyroidism for the past 2 days, as well as prednisone. The patient sees Dr. Hurst, [facility], and is usually on 40 mg of prednisone daily, but it has been decreased to 20 mg as the patient refused to take it and does not tolerate it well. She was admitted to inpatient mental health unit due to depression. The patient is asking for assistance. She cannot afford her medications. Patient and family services (PFS) consulted. PAST MEDICAL HISTORY: 1. Medical noncompliance with not taking her medications for 2 weeks. 2. Sarcoidosis. 3. Depression. 4. Seizure disorder. 5. Chronic anxiety. 6. Hypothyroidism. 7. Myxedema coma. PAST SURGICAL HISTORY 1. section. FAMILY HISTORY: Mother alive at age 60. Father due to trauma, killed by police captain. Brother alive and well, they do not speak. SOCIAL HISTORY: She smoked a pack of cigarettes a day since the age of 15, currently a half of a pack if she can afford it. No alcohol use. Recreational drug use: Currently on methadone. 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 HOSPITAL MEDICATIONS: - methadone 100 mg daily - Cepacol lozenges every 2 hours - gabapentin 600 mg three times a day - Prilosec 20 mg daily - propranolol 10 mg twice a day - Seroquel 25 mg three times a day - Lexapro 30 mg daily - Cytomel 37.5 mcg daily - Desyrel 150 mg at night as needed - Zyprexa 10 mg every 6 hours as needed for anxiety - Tylenol 650 mg every 6 hours as needed for headache or discomfort - milk of magnesia 30 mg daily as needed for constipation - Mylanta 30 mL as needed for heartburn - nicotine patch 21 mg daily - DuoNeb 3 mL every 4 hours as needed for wheezing REVIEW OF SYSTEMS: As per history of present illness. 10-point system otherwise negative. PHYSICAL EXAMINATION: Temperature 98.7, pulse 83, respiratory rate 14, blood pressure 118/75, 100% on room air. GENERAL: The patient is awake, alert, oriented to person, place and time. Answering questions appropriately. Anicteric sclerae. No jaundice. Pupils are round, reactive to light and accommodation. Extraocular muscles are intact. Normocephalic, atraumatic. No cervical lymphadenopathy or thyromegaly. No sinus congestion in the maxillary area. The patient has some pharyngeal erythema with tonsillar exudates. LUNGS: Clear to auscultation. No wheezing, rales or rhonchi. Air entry is equal bilaterally. No adventitious breath sounds. HEART: S1, S2. Sinus rhythm. No murmurs, rubs or gallops. Nondisplaced point of maximum impulse (PMI). No carotid bruits. No abdominal bruits. ABDOMEN: Obese, soft, nontender, nondistended. Positive bowel sounds times four quadrants. No rebound or guarding. No hepatosplenomegaly. EXTREMITIES: No cyanosis, clubbing or edema. The patient's proximal interphalangeal, distal interphalangeal, metacarpophalangeal joints are normal. No bogginess or swelling. Elbow joints are normal. Full range of motion. LABORATORY DATA: White count 6.3, hemoglobin 13, hematocrit 41, platelet count 187. Sodium 139, potassium 3.9, chloride 103, bicarbonate 32, BUN 10, creatinine 1.27, glucose 96, calcium 8.9, total bilirubin 0.3, direct bilirubin less than 0.1, AST 16, ALT 13, alkaline phosphatase 79, total protein 6.6, albumin 3.5, TSH 149, Free T4 0.7, T3 uptake 27, negative HCG. 01/29/[address] showed no change in extensive mediastinal, hilar lymphadenopathy. Mild increase in patchy bibasilar parenchymal opacities when compared to prior study. ASSESSMENT AND PLAN: This is a 39-year-old female noncompliant with her medications with a history of sarcoidosis, hypothyroidism on chronic prednisone, but has been noncompliant, has not taken her Cytomel, has been noncompliant. Admitted to inpatient mental health unit for severe depression. CURRENT ISSUES: 1. Sore throat and shortness of breath. The patient has a known history of sarcoidosis. Check respiratory panel. Repeat chest x-ray. Resume home dose of prednisone. 2. Hypothyroidism. Noncompliant with Cytomel with TSH over 130. The patient is to be resumed on Cytomel, increase to 37.5 mcg daily. Repeat TSH in 1 week. 3. History of depression. Managed by primary team, psychiatrist. Patient and family services (PFS) is consulted due to inability to pay for her medications. HILARIO
[2019-04-16] MEDS ORDERED: METHADONE 10 MG TAB (S0109) PO SCH (11:00)
[2019-04-16] MEDS ORDERED: predniSONE 20 MG TAB PO ONE (11:00)
[2019-04-16] MEDS ORDERED: METHADONE 5 MG TAB (S0109) PO SCH (11:00)
[2019-04-16] MEDS: NICOTINE 21MG/24HR 1 EA TRANSDERMAL TD PRN (11:44)
--- NOTE | 2019-04-16 12:36 | REP ---
CT CHEST WITHOUT IV CONTRAST: CT chest performed without IV contrast and compared to prior study 01/29/2019. There is mild peripheral fibrotic scarring bilaterally. There is focal patchy parenchymal opacity in the anterior right lower lobe which is essentially unchanged. There is new very mild patchy parenchymal opacity in the adjacent right middle lobe. There is patchy parenchymal opacity again seen in the left lower lobe which for the most part is unchanged although there is some very mild increase peripherally in the left posterior costophrenic sulculus. There is no significant change in the extensive mediastinal and hilar adenopathy. No axillary adenopathy is seen. Thoracic aorta is normal in caliber. Heart is not enlarged. There is no pleural or pericardial effusion. IMPRESSION: Minimal new patchy parenchymal opacity right middle lobe. Slight increase in left lower lobe opacity peripherally in the posterior costophrenic sulcus. Otherwise no change. Electronically Signed by Levy Beasley MD 04/16/2019 04:02 P
[2019-04-16 16:53] VITALS: BP 120/67
--- NOTE | 2019-04-17 05:35 | IPNPDOC ---
Date Seen The patient was seen on 04/17/19. Progress Note I was notified that patient was diaphoretic, bradycardic, hypotensive and had a syncopal episode. There is no intervention between patient's presentation till when I evaluated patient. Upon evaluation, AF, patient's heart rate was 66, blood pressure 110/70, she did not appear to be in any respiratory, cardiac distress, she was able to speak in full sentences. Nursing team was concerned due to previous admission for myxedema coma, especially with TSH >100. Discussed with patient and nursing team, patient's symptoms worsen. Plan to transfer to medical floor upon evaluation. VS, I&O, 24H, Fishbone Vital Signs/I&O Vital Signs Date Time Temp Pulse Resp B/P (MAP) Pulse Ox O2 Delivery O2 Flow Rate FiO2 04/16/19 20:52 73 103/59 04/16/19 16:53 96.7 12 99 04/16/19 08:45 Room Air Laboratory Data 24H LABS Laboratory Tests 2 04/16/19 07:46: Thyroid Stimulating Hormone (TSH) 149.000H, Free Thyroxine Index 0.7L, Thyroxine (T4) 2.6L, Triiodothyronine (T3) Uptake 27L 04/16/19 14:22: Bedside Glucose (Misc Panel) 127H 04/16/19 18:00: Microbiology Microbiology 04/16/19 Respiratory Virus Panel (PCR) (PRITI) - Final, Complete 04/16/19 Gram Stain - Final, Resulted 04/16/19 Sputum Culture, Resulted Pending 04/16/19 Group A Streptococcus Screen (PRITI) - Final, Resulted 04/16/19 Group A Streptococcus Screen (PRITI), Resulted Pending ANCELMO VENEGAS MD Apr 17, 2019 05:35
[2019-04-17 06:43] VITALS: BP 120/81
[2019-04-17] MEDS: predniSONE 20 MG TAB PO SCH (08:58)
[2019-04-17] MEDS: PILL CUTTER 1 EACH XX PRN (09:01)
[2019-04-17] MEDS: GABAPENTIN 300 MG CAP PO SCH ×3 (09:01→20:34)
[2019-04-17] MEDS: ESCITALOPRAM OXALATE 10 MG TAB (LEXAPRO) PO SCH (09:02)
[2019-04-17] MEDS: METHADONE 10 MG TAB (S0109) PO SCH (09:02)
[2019-04-17] MEDS: OMEPRAZOLE 20 MG CAP PO SCH (09:02)
[2019-04-17] MEDS: LIOTHYRONINE 25 MCG TAB PO SCH (09:03)
[2019-04-17] MEDS: ACETAMINOPHEN TAB 650MG DOSE (2X325MG) PO PRN ×2 (09:25→18:09)
--- NOTE | 2019-04-17 09:43 | MHIPNPDOC ---
[facility] Progress Note Progress Note DATE OF SERVICE: 04/17/19 HISTORY: Patient is a 39 -year-old , female, with a history of depression, PTSD, opiate/alcohol substance abuse and 5 previous admits [facility] with last 03/13/19 who presented to the ED on her own endorsing depression, increased crying episodes, feeling "delusional" for reason unknown but suspecting her TSH was wrong. TSH 124 in ED, today 148, pt apparently not taking her synthroid or psychiatric medications "b/c they're at my boyfriend's house". Pt seen and states she hasn't been feeling well since she ran out of her s ynthroid. States in the past week she's been hearing "mumbling and whispers like some one is talk to me" which made her feel she needed help b/c she didn't feel safe the way she was feeling. Advised pt that if she continues to be noncomplaint on her synthroid (as is reason she has been admitted 3 times since Jan 2019 then will have to seek custodial treatment due to inability to stay compliant on her medical and psychiatric medication that leads to her symptoms and admission. Explained to pt that it is very important she stay compliant on her synthroid so she doesn't damage her physical health custodial. This she stated "scares me" and states she will make sure she's compliant on all her meds. Agreeable to restarting her outpatient meds as they are beneficial when her TSH is normal. Methadone dose confirmed thru [facility]. Denies current SI/HI, hallucinations, delusions. Feels safe here. VITAL SIGNS: See below. NEW TEST RESULTS: See below. CURRENT MEDICATIONS: See below. MENTAL STATUS EXAMINATION: General Appearance: unkempt, disheveled, appears stated age, hospital scrubs/clothing Build: overweight Demeanor: very fidgety Eye Contact: average Activity: less anxious Behavior: cooperative Speech: clear, normal volume, reg/rate,rhythm,volume Mood: less depressed, less anxious Mood "better" Affect: less constricted, congruent, less anxious Thought Process: logical/linear, less depressed, intact Thought Content (Delusions): none reported, denies SI, HI, AVH Thought Content (Other): none reported Thought Content (Aggressive): none reported Perception (Hallucinations): none reported Perception (Other): none reported Cognition (Impairment of): none reported Oriented: Awake, Alert, Oriented times three Insight: poor Judgment: Poor Psychosis: Denies DIAGNOSES: 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 Pt's methadone decreased to 90mg daily and seroquel and inderal will be held this morning to prevent oversedation again. Pt was assessed by medicine last night due to oversedation and believe it may also be related to her severe hypothyroidism with plans to continue to monitor her on the unit with thyroid medicine daily. Pt seen and states that her mood is "ok" and is agreeable to med changes currently to prevent sedation during the day today. States she understands why the changes have been made. States she slept well last night. Feels her meds are beneficial. She is attending groups and finding them helpful. She denies SI/HI, hallucinations, delusions. MANAGEMENT PLAN: hold am seroquel and inderal today, methadone decrease to 90mg daily due to oversedation on 105mg daily Lexapro 30 mg daily Gabapentin 600 mg TID seroquel 25mg tid inderal 10mg bid Trazodone 50 mg qhs prn insomnia mthadone 90mg daily (thru [facility]) Liothyronine 37.5mcg daily TIME SPENT:30 minutes. Vital Signs Vital Signs Date Time Temp Pulse Resp B/P (MAP) Pulse Ox O2 Delivery O2 Flow Rate FiO2 04/17/19 06:43 98.2 70 12 120/81 (94) Room Air 04/16/19 16:53 99 Laboratory Data 24H Labs Laboratory Tests 2 04/16/19 14:22: Bedside Glucose (Misc Panel) 127H 04/16/19 18:00: Current Medications Current Medications Medications (Trade) Dose Ordered Sig/[place]ez Route PRN Reason Start Time Stop Time Status Last Admin Dose Admin Acetaminophen (Tylenol Tab) 650 mg Q6HP PRN PO HEADACHE or DISCOMFORT 04/15/19 23:15 04/17/19 09:25 Al Hydrox/Mg Hydrox/Simethicone (Mylanta) 30 ml Q4HP PRN PO HEARTBURN/INDIGESTION 04/15/19 23:15 Albuterol/ Ipratropium (Duoneb (Ipr 0.5mg/Alb 2.5mg)) 3 ml Q4H PRN INH SOB/WHEEZING 04/15/19 23:15 Cetylpyridinium Chloride (Cepacol) 1 elias Q2HP PRN PO SORE THROAT 04/16/19 09:45 Escitalopram Oxalate (Lexapro) 10 mg DAILY PO 04/16/19 09:00 04/15/19 23:25 DC Escitalopram Oxalate (Lexapro) 20 mg DAILY PO 04/16/19 09:00 Cancel Escitalopram Oxalate (Lexapro) 30 mg DAILY PO 04/16/19 09:00 04/17/19 09:02 Gabapentin (Neurontin) 600 mg TID PO 04/16/19 09:00 04/17/19 09:01 Home Med (Med Rec Complete!) ASDIRECTED XX 04/15/19 22:45 04/15/19 22:37 DC Liothyronine Sodium (Cytomel) 12.5 mcg DAILY PO 04/16/19 09:00 04/16/19 07:36 DC Liothyronine Sodium (Cytomel) 37.5 mcg DAILY PO 04/16/19 09:00 04/17/19 09:03 Magnesium Hydroxide (Milk Of Magnesia) 30 ml DAILYPRN PRN PO CONSTIPATION 04/15/19 23:15 Methadone HCl (Dolophine) 5 mg DAILY PO 04/16/19 11:00 04/16/19 14:31 DC 04/16/19 10:25 Methadone HCl (Dolophine) 90 mg DAILY PO 04/17/19 09:00 04/17/19 09:02 Methadone HCl (Dolophine) 100 mg DAILY PO 04/16/19 11:00 04/16/19 14:31 DC 04/16/19 10:25 Nicotine (Nicoderm Cq 21mg) 1 patch DAILY PRN TD Nicotine withdrawl 04/15/19 23:15 04/16/19 11:44 Olanzapine (ZyPREXA ZYDIS) 10 mg Q6HP PRN PO ANXIETY/AGITATION 04/15/19 23:15 Omeprazole (PriLOSEC) 20 mg DAILY PO 1/11/20 09:00 04/17/19 09:02 Prednisone (Deltasone) 20 mg DAILY PO 04/17/19 09:00 Propranolol HCl (Inderal) 10 mg BID PO 04/16/19 09:00 Hold 04/16/19 08:57 Quetiapine Fumarate (SEROquel) 25 mg TID PO 04/16/19 09:00 Hold 04/16/19 08:58 Trazodone HCl (Desyrel) 150 mg QHSP PRN PO INSOMNIA 04/15/19 23:15 04/16/19 20:49 Allergies Coded Allergies: No Known Allergies (Verified , 10/22/18) JORDEN MERA DO Apr 17, 2019 09:31
[2019-04-17] MEDS: QUEtiapine FUMARATE 25 MG TAB PO SCH ×2 (16:31→20:34)
[2019-04-17 17:00] VITALS: BP 127/76
[2019-04-17] MEDS: NICOTINE 21MG/24HR 1 EA TRANSDERMAL TD PRN (18:10)
[2019-04-17] MEDS: PROPRANOLOL 10 MG TAB PO SCH (20:34)
[2019-04-18 06:47] VITALS: BP 107/62
[2019-04-18] MEDS: OMEPRAZOLE 20 MG CAP PO SCH (08:37)
[2019-04-18] MEDS: METHADONE 10 MG TAB (S0109) PO SCH (08:37)
[2019-04-18] MEDS: GABAPENTIN 300 MG CAP PO SCH ×3 (08:38→20:50)
[2019-04-18] MEDS: ESCITALOPRAM OXALATE 10 MG TAB (LEXAPRO) PO SCH (08:39)
[2019-04-18] MEDS: QUEtiapine FUMARATE 25 MG TAB PO SCH ×3 (08:39→20:50)
[2019-04-18] MEDS: predniSONE 20 MG TAB PO SCH (08:39)
[2019-04-18] MEDS: LIOTHYRONINE 25 MCG TAB PO SCH (08:41)
[2019-04-18] MEDS: PROPRANOLOL 10 MG TAB PO SCH ×2 (09:00→20:52)
--- NOTE | 2019-04-18 11:05 | MHIPNPDOC ---
[facility] Progress Note Progress Note DATE OF SERVICE: 04/18/19 HISTORY: Patient is a 39 -year-old , female, with a history of depression, PTSD, opiate/alcohol substance abuse and 5 previous admits [facility] with last 03/13/19 who presented to the ED on her own endorsing depression, increased crying episodes, feeling "delusional" for reason unknown but suspecting her TSH was wrong. TSH 124 in ED, today 148, pt apparently not taking her synthroid or psychiatric medications "b/c they're at my boyfriend's house". Pt seen and states she hasn't been feeling well since she ran out of her s ySpyder Lynkoid. States in the past week she's been hearing "mumbling and whispers like some one is talk to me" which made her feel she needed help b/c she didn't feel safe the way she was feeling. Advised pt that if she continues to be noncomplaint on her synthroid (as is reason she has been admitted 3 times since Jan 2019 then will have to seek [facility] treatment due to inability to stay compliant on her medical and psychiatric medication that leads to her symptoms and admission. Explained to pt that it is very important she stay compliant on her synthroid so she doesn't damage her physical health [facility]. This she stated "scares me" and states she will make sure she's compliant on all her meds. Agreeable to restarting her outpatient meds as they are beneficial when her TSH is normal. Methadone dose confirmed thru [facility]. Denies current SI/HI, hallucinations, delusions. Feels safe here. VITAL SIGNS: See below. NEW TEST RESULTS: See below. CURRENT MEDICATIONS: See below. MENTAL STATUS EXAMINATION: General Appearance: unkempt, appears stated age, hospital scrubs/clothing Build: overweight Demeanor: cooperative, med seeking for more methadone now that decreased to 90mg daily Eye Contact: average Activity: less anxious Behavior: cooperative Speech: clear, normal volume, reg/rate,rhythm,volume Mood: less depressed, less anxious Mood "ok" Affect: less constricted, congruent, less anxious Thought Process: logical/linear, less depressed, intact Thought Content (Delusions): none reported, denies SI, HI, AVH Thought Content (Other): none reported Thought Content (Aggressive): none reported Perception (Hallucinations): none reported Perception (Other): none reported Cognition (Impairment of): none reported Oriented: Awake, Alert, Oriented times three Insight: poor Judgment: Poor Psychosis: Denies DIAGNOSES: 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 Advised for now in consideration of her also have severe hypothyroidism will leave it at it's current dose to prevent oversedation. Her inderal was held again today do to BP to low to take it safely. States she slept well last night. Feels her meds are beneficial and shes' tolerating them well. She appears to be improving overall. She is attending groups and finding them helpful. She denies SI/HI, hallucinations, delusions. MANAGEMENT PLAN: hold am inderal today, methadone decrease to 90mg daily due to oversedation on 105mg daily. plan to check thyroid profile tomorrow. Lexapro 30 mg daily Gabapentin 600 mg TID seroquel 25mg tid inderal 10mg bid Trazodone 50 mg qhs prn insomnia mthadone 90mg daily (thru [facility]) Liothyronine 37.5mcg daily TIME SPENT:30 minutes. Vital Signs Vital Signs Date Time Temp Pulse Resp B/P (MAP) Pulse Ox O2 Delivery O2 Flow Rate FiO2 04/18/19 06:47 98.3 55 14 107/62 (77) Room Air 04/16/19 16:53 99 Current Medications Current Medications Medications (Trade) Dose Ordered Sig/Mercedez Route PRN Reason Start Time Stop Time Status Last Admin Dose Admin Acetaminophen (Tylenol Tab) 650 mg Q6HP PRN PO HEADACHE or DISCOMFORT 04/15/19 23:15 04/17/19 18:09 Al Hydrox/Mg Hydrox/Simethicone (Mylanta) 30 ml Q4HP PRN PO HEARTBURN/INDIGESTION 04/15/19 23:15 Albuterol/ Ipratropium (Duoneb (Ipr 0.5mg/Alb 2.5mg)) 3 ml Q4H PRN INH SOB/WHEEZING 04/15/19 23:15 Cetylpyridinium Chloride (Cepacol) 1 elias Q2HP PRN PO SORE THROAT 04/16/19 09:45 Escitalopram Oxalate (Lexapro) 10 mg DAILY PO 04/16/19 09:00 04/15/19 23:25 DC Escitalopram Oxalate (Lexapro) 20 mg DAILY PO 04/16/19 09:00 Cancel Escitalopram Oxalate (Lexapro) 30 mg DAILY PO 04/16/19 09:00 04/18/19 08:39 Gabapentin (Neurontin) 600 mg TID PO 04/16/19 09:00 04/18/19 08:38 Home Med (Med Rec Complete!) ASDIRECTED XX 04/15/19 22:45 04/15/19 22:37 DC Liothyronine Sodium (Cytomel) 12.5 mcg DAILY PO 04/16/19 09:00 04/16/19 07:36 DC Liothyronine Sodium (Cytomel) 37.5 mcg DAILY PO 04/16/19 09:00 04/18/19 08:41 Magnesium Hydroxide (Milk Of Magnesia) 30 ml DAILYPRN PRN PO CONSTIPATION 04/15/19 23:15 Methadone HCl (Dolophine) 5 mg DAILY PO 04/16/19 11:00 04/16/19 14:31 DC 04/16/19 10:25 Methadone HCl (Dolophine) 90 mg DAILY PO 04/17/19 09:00 04/18/19 08:37 Methadone HCl (Dolophine) 100 mg DAILY PO 04/16/19 11:00 04/16/19 14:31 DC 04/16/19 10:25 Nicotine (Nicoderm Cq 21mg) 1 patch DAILY PRN TD Nicotine withdrawl 04/15/19 23:15 04/18/19 08:50 DC 04/17/19 18:10 Nicotine (Nicorette) 2 mg Q2HP PRN PO SMOKING CESSATION 04/18/19 09:00 Olanzapine (ZyPREXA ZYDIS) 10 mg Q6HP PRN PO ANXIETY/AGITATION 04/15/19 23:15 Omeprazole (PriLOSEC) 20 mg DAILY PO 04/16/19 09:00 04/18/19 08:37 Prednisone (Deltasone) 20 mg DAILY PO 04/17/19 09:00 04/18/19 08:39 Propranolol HCl (Inderal) 10 mg BID PO 04/16/19 09:00 04/17/19 20:34 Quetiapine Fumarate (SEROquel) 25 mg TID PO 04/16/19 09:00 04/18/19 08:39 Trazodone HCl (Desyrel) 150 mg QHSP PRN PO INSOMNIA 04/15/19 23:15 04/16/19 20:49 Allergies Coded Allergies: No Known Allergies (Verified , 10/22/18) JORDEN MERA DO Apr 18, 2019 9:33 am
[2019-04-18] MEDS: OLANZapine ORAL DISINTEGRATING TAB 5MG PO PRN (11:26)
[2019-04-18] MEDS: NICOTINE POLACRILEX 2 MG GUM PO PRN (11:27)
[2019-04-18 16:57] VITALS: BP 107/57
[2019-04-18] MEDS: traZODone 50 MG TAB PO PRN (20:54)
[2019-04-19 06:56] VITALS: BP 92/51
[2019-04-19 09:00] VITALS: BP 100/59
[2019-04-19] MEDS ORDERED: LINEZOLID 600MG TABLET (ZYVOX) PO SCH (09:00)
[2019-04-19] MEDS: PROPRANOLOL 10 MG TAB PO SCH (09:00)
--- NOTE | 2019-04-19 09:09 | MHIPNPDOC ---
[facility] Progress Note Progress Note DATE OF SERVICE: 04/19/19 HISTORY: Patient is a 39 -year-old , female, with a history of depression, PTSD, opiate/alcohol substance abuse and 5 previous admits [facility] with last 03/13/19 who presented to the ED on her own endorsing depression, increased crying episodes, feeling "delusional" for reason unknown but suspecting her TSH was wrong. TSH 124 in ED, today 148, pt apparently not taking her synthroid or psychiatric medications "b/c they're at my boyfriend's house". Pt seen and states she hasn't been feeling well since she ran out of her s yntBreatheroid. States in the past week she's been hearing "mumbling and whispers like some one is talk to me" which made her feel she needed help b/c she didn't feel safe the way she was feeling. Advised pt that if she continues to be noncomplaint on her synthroid (as is reason she has been admitted 3 times since Jan 2019 then will have to seek residential treatment due to inability to stay compliant on her medical and psychiatric medication that leads to her symptoms and admission. Explained to pt that it is very important she stay compliant on her synthroid so she doesn't damage her physical health residential. This she stated "scares me" and states she will make sure she's compliant on all her meds. Agreeable to restarting her outpatient meds as they are beneficial when her TSH is normal. Methadone dose confirmed thru [facility]. Denies current SI/HI, hallucinations, delusions. Feels safe here. VITAL SIGNS: See below. NEW TEST RESULTS: See below. CURRENT MEDICATIONS: See below. MENTAL STATUS EXAMINATION: General Appearance: unkempt, appears stated age, hospital scrubs/clothing Build: overweight Demeanor: cooperative, med seeking for more methadone Eye Contact: average Activity: less anxious Behavior: cooperative Speech: clear, normal volume, reg/rate,rhythm,volume Mood: less depressed, less anxious Mood "alright" Affect: less constricted, congruent, less anxious Thought Process: logical/linear, less depressed, intact Thought Content (Delusions): none reported, denies SI, HI, AVH Thought Content (Other): none reported Thought Content (Aggressive): none reported Perception (Hallucinations): none reported Perception (Other): none reported Cognition (Impairment of): none reported Oriented: Awake, Alert, Oriented times three Insight: poor Judgment: Poor Psychosis: Denies DIAGNOSES: 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 She denies opiate withdrawal and most likely just wants the increase mostly due to desire to use more rather than symptom necessity. Will check thyroid profile today to see if severe hypothyroidism improving with Liothyronine. Her inderal was held again today do to BP to low to take it safely. States she slept well last night. Feels her meds are beneficial and shes' tolerating them well. She appears to be improving overall. She is attending groups and finding them helpful. She denies SI/HI, hallucinations, delusions. MANAGEMENT PLAN: hold am inderal today, methadone increase to 95mg daily. plan to check thyroid profile today. Lexapro 30 mg daily Gabapentin 600 mg TID seroquel 25mg tid inderal 10mg bid Trazodone 50 mg qhs prn insomnia mthadone 9mg daily (thru creto) Liothyronine 37.5mcg daily TIME SPENT:30 minutes. Vital Signs Vital Signs Date Time Temp Pulse Resp B/P (MAP) Pulse Ox O2 Delivery O2 Flow Rate FiO2 04/19/19 06:56 98.7 59 12 92/51 (65) 04/18/19 06:47 Room Air 04/16/19 16:53 99 Current Medications Current Medications Medications (Trade) Dose Ordered Sig/Mercedez Route PRN Reason Start Time Stop Time Status Last Admin Dose Admin Acetaminophen (Tylenol Tab) 650 mg Q6HP PRN PO HEADACHE or DISCOMFORT 04/15/19 23:15 04/17/19 18:09 Al Hydrox/Mg Hydrox/Simethicone (Mylanta) 30 ml Q4HP PRN PO HEARTBURN/INDIGESTION 04/15/19 23:15 Albuterol/ Ipratropium (Duoneb (Ipr 0.5mg/Alb 2.5mg)) 3 ml Q4H PRN INH SOB/WHEEZING 04/15/19 23:15 Cetylpyridinium Chloride (Cepacol) 1 elias Q2HP PRN PO SORE THROAT 04/16/19 09:45 Escitalopram Oxalate (Lexapro) 10 mg DAILY PO 04/16/19 09:00 04/15/19 23:25 DC Escitalopram Oxalate (Lexapro) 20 mg DAILY PO 04/16/19 09:00 Cancel Escitalopram Oxalate (Lexapro) 30 mg DAILY PO 04/16/19 09:00 04/18/19 08:39 Gabapentin (Neurontin) 600 mg TID PO 04/16/19 09:00 04/18/19 20:50 Home Med (Med Rec Complete!) ASDIRECTED XX 04/15/19 22:45 04/15/19 22:37 DC Liothyronine Sodium (Cytomel) 12.5 mcg DAILY PO 04/16/19 09:00 04/16/19 07:36 DC Liothyronine Sodium (Cytomel) 37.5 mcg DAILY PO 04/16/19 09:00 04/18/19 08:41 Magnesium Hydroxide (Milk Of Magnesia) 30 ml DAILYPRN PRN PO CONSTIPATION 04/15/19 23:15 Methadone HCl (Dolophine) 5 mg DAILY PO 04/16/19 11:00 04/16/19 14:31 DC 04/16/19 10:25 Methadone HCl (Dolophine) 90 mg DAILY PO 04/17/19 09:00 04/18/19 08:37 Methadone HCl (Dolophine) 100 mg DAILY PO 04/16/19 11:00 04/16/19 14:31 DC 04/16/19 10:25 Nicotine (Nicoderm Cq 21mg) 1 patch DAILY PRN TD Nicotine withdrawl 04/15/19 23:15 04/18/19 08:50 DC 04/17/19 18:10 Nicotine (Nicorette) 2 mg Q2HP PRN PO SMOKING CESSATION 04/18/19 09:00 04/18/19 11:27 Olanzapine (ZyPREXA ZYDIS) 10 mg Q6HP PRN PO ANXIETY/AGITATION 04/15/19 23:15 04/18/19 11:26 Omeprazole (PriLOSEC) 20 mg DAILY PO 04/16/19 09:00 04/18/19 08:37 Prednisone (Deltasone) 20 mg DAILY PO 04/17/19 09:00 04/18/19 08:39 Propranolol HCl (Inderal) 10 mg BID PO 04/16/19 09:00 04/17/19 20:34 Quetiapine Fumarate (SEROquel) 25 mg TID PO 04/16/19 09:00 04/18/19 20:50 Trazodone HCl (Desyrel) 150 mg QHSP PRN PO INSOMNIA 04/15/19 23:15 04/18/19 20:54 Allergies Coded Allergies: No Known Allergies (Verified , 10/22/18) JORDEN MERA DO Apr 19, 2019 9:09 am
[2019-04-19] MEDS: predniSONE 20 MG TAB PO SCH (09:15)
[2019-04-19] MEDS: GABAPENTIN 300 MG CAP PO SCH ×3 (09:15→21:53)
[2019-04-19] MEDS: OMEPRAZOLE 20 MG CAP PO SCH (09:16)
[2019-04-19] MEDS: ESCITALOPRAM OXALATE 10 MG TAB (LEXAPRO) PO SCH (09:16)
[2019-04-19] MEDS: QUEtiapine FUMARATE 25 MG TAB PO SCH ×3 (09:16→21:53)
[2019-04-19] MEDS: LIOTHYRONINE 25 MCG TAB PO SCH (09:16)
[2019-04-19] MEDS: METHADONE 5 MG TAB (S0109) PO SCH (09:25)
[2019-04-19] MEDS: METHADONE 10 MG TAB (S0109) PO SCH (09:26)
[2019-04-19 10:47] LABS: FREE THYROXINE INDEX 0.6 % (1.3-4.8); THYROID STIMULATING HORMONE 34.1 uIU/ML (0.358-3.740); THYROXINE (T4) 2.1 UG/DL (4.5-12.0)
--- NOTE | 2019-04-19 12:20 | HPEPDOC ---
[facility] Medical History & Physical Date of Admission Apr 19, 2019 Date of Service: Apr 19, 2019 History and Physical CHIEF COMPLAINT: MRSA results positive. HISTORY OF PRESENT ILLNESS: This is a 39-year-old female with a history of sarcoidosis, complains of cough that is productive of yellow-green sputum for the now diagnosed with MRSA PNA. Denies any shortness of breath. Complains of some fatigue. No weight loss or anorexia. No visual changes. No palpitations, syncope, muscle weakness. Complained of joint pain of bilateral elbows. Has a long history of noncompliance with her medications and has not been taking her medications for hypothyroidism She was admitted to inpatient mental health unit due to depression. PAST MEDICAL HISTORY: 1. Medical noncompliance with not taking her medications for 2 weeks. 2. Sarcoidosis. 3. Depression. 4. Seizure disorder. 5. Chronic anxiety. 6. Hypothyroidism. 7. Myxedema coma. PAST SURGICAL HISTORY 1. section. FAMILY HISTORY: Mother alive at age 60. Father due to trauma, killed by police academy instructor. Brother alive and well, they do not speak. SOCIAL HISTORY: She smoked a pack of cigarettes a day since the age of 15, currently a half of a pack if she can afford it. No alcohol use. Recreational drug use: Currently on methadone. 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 HOSPITAL MEDICATIONS: - methadone 100 mg daily - Cepacol lozenges every 2 hours - gabapentin 600 mg three times a day - Prilosec 20 mg daily - propranolol 10 mg twice a day - Seroquel 25 mg three times a day - Lexapro 30 mg daily - Cytomel 37.5 mcg daily - Desyrel 150 mg at night as needed - Zyprexa 10 mg every 6 hours as needed for anxiety - Tylenol 650 mg every 6 hours as needed for headache or discomfort - milk of magnesia 30 mg daily as needed for constipation - Mylanta 30 mL as needed for heartburn - nicotine patch 21 mg daily - DuoNeb 3 mL every 4 hours as needed for wheezing REVIEW OF SYSTEMS: As per history of present illness. 10-point system otherwise negative. PHYSICAL EXAMINATION: Temperature 98.7, pulse 83, respiratory rate 14, blood pressure 118/75, 100% on room air. GENERAL: The patient is awake, alert, oriented to person, place and time. Answering questions appropriately. Anicteric sclerae. No jaundice. Pupils are round, reactive to light and accommodation. Extraocular muscles are intact. Normocephalic, atraumatic. No cervical lymphadenopathy or thyromegaly. No sinus congestion in the maxillary area. The patient has some pharyngeal erythema with exudates. LUNGS: Auscultation reveals basal rales more on rt side otherwise air entry is equal bilaterally. HEART: S1, S2. Sinus rhythm. No murmurs, rubs or gallops. Nondisplaced point of maximum impulse (PMI). No carotid bruits. No abdominal bruits. ABDOMEN: Obese, soft, nontender, nondistended. Positive bowel sounds times four quadrants. No rebound or guarding. No hepatosplenomegaly. EXTREMITIES: No cyanosis, clubbing or edema. The patient's proximal interphalangeal, distal interphalangeal, metacarpophalangeal joints are normal. No bogginess or swelling. Elbow joints are normal. Full range of motion. LABORATORY DATA: Reviewed 01/29/[address] showed no change in extensive mediastinal, hilar lymphadenopathy. Mild increase in patchy bibasilar parenchymal opacities when compared to prior study. ASSESSMENT AND PLAN: This is a 39-year-old female noncompliant with her medications with a history of sarcoidosis, hypothyroidism but has been noncompliant, has not taken her Cytomel, has been noncompliant. Admitted to inpatient mental health unit for severe depression and we are consulted for MRSA positive sputum . . CURRENT ISSUES: 1. MRSA PNA: Pt had sputum culture done which shows MRSA. Xray showed infiltrate which were worsoning, Pt in no respiratory distress. Will repeat xray and order procal. Also start doxy for a total of 7 days for community acquired MRSA Pna. The patient has a known history of sarcoidosis, out pt follow up with pulm. 2. Hypothyroidism. Noncompliant with Cytomel with TSH over 130 now improving. The patient is to be resumed on Cytomel, which was increased to 37.5 mcg daily. Repeat TSH in 4 weeks. 3. Hypotension: Likely medication related. She is on gabapentin, methadone , propanolol which can be contributing to her hypotension. Will recommend d ecreasing the dose of gabapentin and proponolol decreased to 10mg daily, 4. History of depression. Managed by primary team, psychiatrist. Rest all as per primary Vital Signs Vital Signs Date Time Temp Pulse Resp B/P (MAP) Pulse Ox O2 Delivery O2 Flow Rate FiO2 04/19/19 09:38 Room Air 04/19/19 09:00 75 100/59 04/19/19 06:56 98.7 12 04/16/19 16:53 99 Laboratory Data Labs 24H Laboratory Tests 2 04/19/19 09:48: Thyroid Stimulating Hormone (TSH) 34.100H, Free Thyroxine Index 0.6L, Thyroxine (T4) 2.1L, Triiodothyronine (T3) Uptake 28L Microbiology Microbiology 04/16/19 Respiratory Virus Panel (PCR) (PRITI) - Final, Complete 04/16/19 Gram Stain - Final, Complete 04/16/19 Sputum Culture - Final, Complete Staph.aureus Methicillin Resis Yeast Like Organism 04/16/19 Group A Streptococcus Screen (PRITI) - Final, Complete 04/16/19 Group A Streptococcus Screen (PRITI) - Final, Complete Home Medications Scheduled Escitalopram Oxalate (Escitalopram Oxalate) 10 Mg Tablet, 10 MG PO DAILY TAKES WITH A 20MG TABLET FOR TOTAL OF 30MG Escitalopram Oxalate (Escitalopram Oxalate) 20 Mg Tablet, 20 MG PO DAILY TAKES WITH 10MG TABLET FOR TOTAL OF 30MG Gabapentin (Gabapentin) 600 Mg Tablet, 600 MG PO TID Liothyronine Sodium (Liothyronine Sodium) 25 Mcg Tablet, 12.5 MCG PO DAILY Methadone HCl (Methadone HCl) 10 Mg/1 Ml Oral.conc, 105 MG PO DAILY for Withdrawal Omeprazole (Omeprazole) 20 Mg Capsule.dr, 20 MG PO DAILY Propranolol HCl (Propranolol HCl) 10 Mg Tablet, 10 MG PO BID Quetiapine Fumarate (Seroquel) 25 Mg Tablet, 25 MG PO TID Scheduled PRN Ipratropium/Albuterol Sulfate (Iprat-Albut 0.5-3(2.5) mg/3 ml) 3 Ml Ampul.neb, 1 VIAL INH Q4H PRN for SOB/WHEEZING Miscellaneous Medications Trazodone HCl (Trazodone HCl) 150 Mg Tablet, 300 MG PO Allergies Coded Allergies: No Known Allergies (Verified , 10/22/18) A-FIB/CHADSVASC A-FIB History Current/History of A-Fib/PAF?: No Current PO Anticoag Therapy: No THAO POLANCO MD Apr 19, 2019 12:20
[2019-04-19] MEDS: DOXYCYCLINE HYCLATE 100 MG TAB PO SCH ×2 (13:33→21:53)
[2019-04-19] MEDS: OLANZapine ORAL DISINTEGRATING TAB 5MG PO PRN (13:33)
[2019-04-19] MEDS: NICOTINE POLACRILEX 2 MG GUM PO PRN (15:40)
[2019-04-19 15:43] VITALS: BP 107/61
[2019-04-19] MEDS: traZODone 50 MG TAB PO PRN (21:54)
[2019-04-20 06:57] VITALS: BP 114/72
[2019-04-20 08:32] LABS: HEMATOCRIT 41.4 % (36.0-47.0); HEMOGLOBIN 12.9 g/dl (12.0-15.5); MEAN CORPUSCULAR HGB CONC 31.2 g/dl (32.0-36.5); MEAN CORPUSCULAR VOLUME 96.3 fl (80.0-96.0); PLATELET COUNT, AUTOMATED 149 10^3/uL (150-450); WHITE BLOOD COUNT 5.4 10^3/uL (4.0-10.0)
[2019-04-20] MEDS: METHADONE 5 MG TAB (S0109) PO SCH (08:36)
[2019-04-20] MEDS: GABAPENTIN 300 MG CAP PO SCH (08:36)
[2019-04-20] MEDS: predniSONE 20 MG TAB PO SCH (08:36)
[2019-04-20] MEDS: METHADONE 10 MG TAB (S0109) PO SCH (08:36)
[2019-04-20] MEDS: DOXYCYCLINE HYCLATE 100 MG TAB PO SCH (08:36)
[2019-04-20] MEDS: ESCITALOPRAM OXALATE 10 MG TAB (LEXAPRO) PO SCH (08:37)
[2019-04-20] MEDS: LIOTHYRONINE 25 MCG TAB PO SCH (08:37)
[2019-04-20] MEDS: OMEPRAZOLE 20 MG CAP PO SCH (08:37)
[2019-04-20] MEDS: QUEtiapine FUMARATE 25 MG TAB PO SCH (08:37)
[2019-04-20 08:59] LABS: CALCIUM LEVEL 8.8 MG/DL (8.5-10.1); CREATININE FOR GFR 1.33 MG/DL (0.55-1.30); GLOMERULAR FILTRATION RATE 47.8 (>60); POTASSIUM SERUM 3.8 MEQ/L (3.5-5.1)
[2019-04-20] MEDS ORDERED: PROPRANOLOL 10 MG TAB PO SCH (09:00)
[2019-04-20] MEDS ORDERED: METHADONE 10 MG TAB (S0109) PO SCH (09:00)
[2019-04-20] MEDS ORDERED: DOXY100T PO (09:47)
--- NOTE | 2019-04-20 09:48 | MHDSPDOC ---
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 TSH 124 in ED, today 148, pt apparently not taking her synthroid or psychiatric medications "b/c they're at my boyfriend's house". Pt seen and states she hasn't been feeling well since she ran out of her synthro id. States in the past week she's been hearing "mumbling and whispers like some one is talk to me" which made her feel she needed help b/c she didn't feel safe the way she was feeling. Advised pt that if she continues to be noncomplaint on her synthroid (as is reason she has been admitted 3 times since Jan 2019 then will have to seek buttermaker continuous churn treatment due to inability to stay compliant on her medical and psychiatric medication that leads to her symptoms and admission. Explained to pt that it is very important she stay compliant on her synthroid so she doesn't damage her physical health buttermaker continuous churn. This she stated "scares me" and states she will make sure she's compliant on all her meds. Agreeable to restarting her outpatient meds as they are beneficial when her TSH is normal. Methadone dose confirmed thru [facility]. Denies current SI/HI, hallucinations, delusions. Feels safe here. CONSULTANTS INVOLVED: medicine regarding hypothyroidism TEST RESULTS: TSH 34.100 greatly improved TREATMENT AND PROGRESS ON THE UNIT :Pt was admitted to [facility], seen for psychiatric assessment and restarted on lexapro 30mg daily, gabapentin 600mg tid, and seroquel 25mg tid, and inderal 10mg bid. [facility] was called to confirm pt's methadone dose that was decreased to 95mg daily due to over sedation on 105mg daily. Pt restarted on Liothyronine 37.5mcg daily by medical team and an oral doxycycline 100mg bid after testing positive for MRSA by medicine. She was provided trazodone 50mg qhs prn insomnia. Pt found her psychiatric medications beneficial and tolerated them well. She attended groups daily during her stay. Her symptoms of depression improved with treatment. On day of discharge she denied depression, anxiety, insomnia, SI/HI, hallucinations, delusions. She was discharged home with follow-up at [facility] and [facility]. She feels safe to go home today. DISCHARGE ASSESSMENT: Pt seen and states that her mood is "good" and is looking forward to going home today. She denies opiate withdrawal although continues to be med seeking for methadone to be increased back to 105mg daily even though she does not appear in need of that and told it will not be increased as pt leaving and was previously oversedation.. Thyroid profile greatly improved with Liothyronine. States she slept well last night. Feels her meds are beneficial and shes' tolerating them well. She appears euthymic and improved overall. She is attending groups and finding them helpful. She denies depression, anxiety, insomnia, SI/HI, hallucinations, delusions. MENTAL STATUS EXAMINATION ON DISCHARGE: General Appearance: clean, appears stated age, own clothing, wearing a mask after diagnosed with sputum MRSA Build: overweight Demeanor: cooperative, med seeking for more methadone Eye Contact: average Activity: average Behavior: cooperative Speech: clear, normal volume, reg/rate,rhythm,volume Mood: euthymic, full range Mood "good" Affect: congruent, full range Thought Process: logical/linear, intact Thought Content (Delusions): none reported, denies SI, HI, AVH Thought Content (Other): none reported Thought Content (Aggressive): none reported Perception (Hallucinations): none reported Perception (Other): none reported Cognition (Impairment of): none reported Oriented: Awake, Alert, Oriented times three Insight: fair-good Judgment: fair-good Psychosis: Denies MEDICATIONS ON DISCHARGE: Lexapro 30 mg daily Gabapentin 600 mg TID seroquel 25mg tid inderal 10mg bid Trazodone 50 mg qhs prn insomnia mthadone 95mg daily (thru [facility]) Liothyronine 37.5mcg daily doxycycline 100mg bid PLAN/FOLLOWUP ARRANGEMENTS: D/c home with follow-up at [facility] and [facility]. The amount of time spent in the coordination of care for this patient was approximately 30 minutes. Vital Signs/I&Os Vital Signs Date Time Temp Pulse Resp B/P (MAP) Pulse Ox O2 Delivery O2 Flow Rate FiO2 04/20/19 06:57 98.3 50 16 114/72 (86) 04/19/19 09:38 Room Air 04/16/19 16:53 99 Laboratory Data Labs 24H Laboratory Tests 2 04/19/19 09:48: Thyroid Stimulating Hormone (TSH) 34.100H, Free Thyroxine Index 0.6L, Thyroxine (T4) 2.1L, Triiodothyronine (T3) Uptake 28L 04/20/19 08:08: Nucleated Red Blood Cells % (auto) 0.0, Anion Gap 6L, Glomerular Filtration Rate 47.8L, Calcium Level 8.8 CBC/BMP Laboratory Tests 04/20/19 08:08 Microbiology Microbiology 04/16/19 Respiratory Virus Panel (PCR) (PRITI) - Final, Complete 04/16/19 Gram Stain - Final, Complete 04/16/19 Sputum Culture - Final, Complete Staph.aureus Methicillin Resis Yeast Like Organism 04/16/19 Group A Streptococcus Screen (PRITI) - Final, Complete 04/16/19 Group A Streptococcus Screen (PRITI) - Final, Complete Medications Scheduled Escitalopram Oxalate (Escitalopram Oxalate) 10 Mg Tablet, 10 MG PO DAILY, (Reported) TAKES WITH A 20MG TABLET FOR TOTAL OF 30MG Escitalopram Oxalate (Escitalopram Oxalate) 20 Mg Tablet, 20 MG PO DAILY, ( Reported) TAKES WITH 10MG TABLET FOR TOTAL OF 30MG Gabapentin (Gabapentin) 600 Mg Tablet, 600 MG PO TID, (Reported) Liothyronine Sodium (Liothyronine Sodium) 25 Mcg Tablet, 12.5 MCG PO DAILY, (Reported) Methadone HCl (Methadone HCl) 10 Mg/1 Ml Oral.conc, 105 MG PO DAILY for Withdrawal, (Reported) Omeprazole (Omeprazole) 20 Mg Capsule.dr, 20 MG PO DAILY, (Reported) Propranolol HCl (Propranolol HCl) 10 Mg Tablet, 10 MG PO BID, (Reported) Quetiapine Fumarate (Seroquel) 25 Mg Tablet, 25 MG PO TID, (Reported) Scheduled PRN Ipratropium/Albuterol Sulfate (Iprat-Albut 0.5-3(2.5) mg/3 ml) 3 Ml Ampul.neb, 1 VIAL INH Q4H PRN for SOB/WHEEZING, (Reported) Miscellaneous Medications Trazodone HCl (Trazodone HCl) 150 Mg Tablet, 300 MG PO, (Reported) Allergies Coded Allergies: No Known Allergies (Verified , 10/22/18) JORDEN MERA DO Apr 20, 2019 09:48
[2019-04-21 14:21] LABS: BODY FLUID CULTURE Not indicated. (.); LEGIONELLA ANTIGEN URINE Negative (Negative); ORGANISM ID Not indicated. (.); SPECIMEN SOURCE Urine (.); URINE STREP PNEUMONIAE ANTIGEN Negative (Negative)
== END 2019-04-20 13:38 | disposition home or self-care (01) | DRG 753 ==
LOC: M ED 17:41 → EEVIPCON 23:03 → M ED INP 23:03 → M PSY 04-16 00:05
PROVIDERS: ADMIT Psychiatry & Neurology Psychiatry; ATTEND Psychiatry & Neurology Psychiatry
DX: F32.89 Other specified depressive episodes (principal); J15.212 Pneumonia due to Methicillin resistant Staphylococcus aureus; Z91.14 Patient's other noncompliance with medication regimen; G40.909 Epilepsy, unspecified, not intractable, without status epilepticus; E03.9 Hypothyroidism, unspecified; F11.10 Opioid abuse, uncomplicated; F12.10 Cannabis abuse, uncomplicated; F10.11 Alcohol abuse, in remission; Z81.1 Family history of alcohol abuse and dependence; F17.210 Nicotine dependence, cigarettes, uncomplicated; Z62.810 Personal history of physical and sexual abuse in childhood; Z79.899 Other long term (current) drug therapy; F41.9 Anxiety disorder, unspecified; J02.9 Acute pharyngitis, unspecified; D86.9 Sarcoidosis, unspecified

== ENCOUNTER 2019-07-03 05:40 | Emergency (ER) | payer OTHER ==
[~2019-07-03] VITALS: Ht 160 cm; Wt 90.9 kg
[~2019-07-03 05:40] MED LIST changes: +DOXY100T PO; -LIDO1SOL8 PO; +LIDO2SOL17 PO; +LIOT5TAB6 PO; +SERO1TAB3 PO; +TRAZ1TAB14 PO
[2019-07-03 06:59] LABS: BASO % 0.7 % (0.0-1.0); EOS # 0.1 10^3/uL (0.0-0.5); EOS % 3.3 % (0.0-3.0); HEMATOCRIT 36.9 % (36.0-47.0); HEMOGLOBIN 11.8 g/dl (12.0-15.5); LYMPH # 0.7 10^3/uL (1.5-5.0); LYMPH % 17.5 % (24.0-44.0); MEAN CORPUSCULAR HEMOGLOBIN 32.1 pg (27.0-33.0); MEAN CORPUSCULAR VOLUME 100.3 fl (80.0-96.0); MONO # 0.3 10^3/uL (0.0-0.8); MONO % 6.5 % (0.0-5.0); NEUTROPHILS % 71.5 % (36.0-66.0); PLATELET COUNT, AUTOMATED 104 10^3/uL (150-450); RED BLOOD COUNT 3.68 10^6/uL (4.00-5.40); WHITE BLOOD COUNT 4.2 10^3/uL (4.0-10.0)
[2019-07-03] MEDS ORDERED: NS 1,000 ML IV ONE (07:30)
[2019-07-03] MEDS ORDERED: methylPREDNISolone INJ 125 MG/2 ML VIAL (J2930) IV ONE (07:45)
[2019-07-03] MEDS ORDERED: KETOROLAC 30 MG/ML VIAL (J1885) IV ONE (07:45)
[2019-07-03] MEDS ORDERED: MORPHINE 2 MG/ML 1ML VIAL (J2270) IV ONE (09:45)
[2019-07-03] MEDS ORDERED: cefTRIAXone SOD 2 GM in D5W MINI-BAG PLUS 50 ML IV ONE (09:45)
[2019-07-03 12:07] VITALS: BP 132/71
[2019-07-03] MEDS ORDERED: NORCO, ANEXSIA 5/325MG TABLET (HYDROcodone/ACETAMINOPHEN) PO ONE (12:30)
[2019-07-03] MEDS ORDERED: ONDANSETRON 4MG/2ML VIAL (J2405) IV ONE (12:30)
[2019-07-03] MEDS ORDERED: ACETAMINOPHEN 325 MG TAB PO ONE (12:30)
[2019-07-03] MEDS ORDERED: ACETAMINOPHEN TAB 650MG DOSE (2X325MG) PO ONE (12:30)
--- NOTE | 2019-07-03 12:38 | REP ---
Clinical: Right sided facial swelling. Technique: Axial contrast enhanced images from the skull base to the thoracic inlet with coronal and sagittal re-formations using 75 ml Isovue 370 intravenous contrast material. Findings: Right facial/periorbital subcutaneous infiltration and swelling extending through the level of the mandible is appreciated. No drainable collection or abscess identified. Mucoperiosteal changes involving the right maxillary sinus noted. Mild reactive right submental and anterior cervical reactive adenopathy is appreciated. The bilateral orbits including globes and intraconal contents are symmetric and normal. The osseous structures are intact. Nasopharyngeal through hypopharyngeal airway and associated soft tissues are normal. Vascular structures are relatively symmetric. No mass lesion appreciated. Impression: 1. Right facial soft tissue swelling most consistent with cellulitis and infectious/inflammatory process. Underlying maxillary sinus disease and reactive adenopathy noted. No mass or drainable collection/abscess. 2. Remainder of the neck CT appears normal. Electronically Signed by Alvarado Muir MD 07/03/2019 12:29 P
[2019-07-03] MEDS ORDERED: BACT800T5 PO (13:04)
[2019-07-03] MEDS ORDERED: PRED10TA2 PO (13:04)
[2019-07-03] MEDS ORDERED: ALL10TAB29 PO (13:10)
[2019-07-03] MEDS ORDERED: FLUTISP (13:10)
[2019-07-03] MEDS ORDERED: ACET-683 PO (13:10)
[2019-07-03] MEDS ORDERED: PSEU30TA88 PO (13:10)
== END 2019-07-03 13:17 | disposition home or self-care (01) ==
LOC: M ED 05:40
DX: J01.00 Acute maxillary sinusitis, unspecified (principal); L03.211 Cellulitis of face; I10 Essential (primary) hypertension; F17.200 Nicotine dependence, unspecified, uncomplicated; K02.9 Dental caries, unspecified; K08.89 Other specified disorders of teeth and supporting structures; Z79.899 Other long term (current) drug therapy
CPT/HCPCS: 70491; 80047; 84702; 85025; 96365; 96375; 99283; J0696; J1885; J2270; J2405; J2930

== ENCOUNTER 2019-08-14 20:16 | Emergency (ER) | payer OTHER ==
[~2019-08-14] VITALS: Ht 160 cm; Wt 90.9 kg
[~2019-08-14 20:16] MED LIST changes: +ACET-683 PO; +ALL10TAB29 PO; -ATOM40CA PO; +ATOM40CA16 PO; +BACT800T5 PO; +FLUTISP; +PRED10TA2 PO; +PSEU30TA88 PO
[2019-08-14 20:23] VITALS: BP 130/81
[2019-08-14] MEDS ORDERED: IBUPROFEN 800 MG TAB PO ONE (20:30)
[2019-08-14] MEDS ORDERED: MORPHINE 10 MG/ML 1ML VIAL (J2270) IM ONE (21:30)
[2019-08-14] MEDS ORDERED: IBUP80TA PO (22:19)
[2019-08-14] MEDS ORDERED: ACET1TAB37 PO (22:19)
--- NOTE | 2019-08-15 03:36 | REP ---
Clinical: Trauma. Fall. Technique: AP, lateral, bilateral oblique views of the left foot. Findings: Swelling and fracture involving the ankle is suggested and incompletely evaluated. Remainder of the examination appears normal. Impression: Suspected ankle injury. Electronically Signed by Alvarado Muir MD 08/15/2019 03:28 A
--- NOTE | 2019-08-15 03:49 | REP ---
Clinical: Trauma. Fall. Technique: AP and lateral views of the left tibia / fibula. Findings: Known acute fracture along the posteromedial aspect of the ankle is poorly identified on current series. Ankle swelling is suggested. No other fracture dislocation identified. Impression: 1. Distal ankle fracture not identified on current examination. 2. No other fracture dislocation appreciated. Electronically Signed by Alvarado Muir MD 08/15/2019 03:41 A
--- NOTE | 2019-08-15 03:52 | REP ---
Clinical: Trauma. Fall. Technique: AP, lateral, bilateral oblique views of the left ankle. Findings: Generalized soft tissue swelling is appreciated. Single view demonstrates acute fracture fragment along the medial aspect of the ankle possibly arising from the medial or posterior malleolus of the distal tibia. There is associated widening along the medial ankle mortise. Impression: Fracture identified along the medial aspect of the ankle with widening to the medial portion of the ankle mortise and generalized soft tissue swelling. Electronically Signed by Alvarado Muir MD 08/15/2019 03:44 A
== END 2019-08-14 22:55 | disposition home or self-care (01) ==
LOC: M ED 20:16
DX: S82.52XA Displaced fracture of medial malleolus of left tibia, initial encounter for closed fracture (principal); W01.0XXA Fall on same level from slipping, tripping and stumbling without subsequent striking against object, initial encounter; I10 Essential (primary) hypertension; D86.9 Sarcoidosis, unspecified; K21.9 Gastro-esophageal reflux disease without esophagitis; F17.210 Nicotine dependence, cigarettes, uncomplicated; F19.10 Other psychoactive substance abuse, uncomplicated; Z79.899 Other long term (current) drug therapy
CPT/HCPCS: 73590; 73610; 73630; 96372; 99284; J2270

== ENCOUNTER 2019-08-17 22:32 | Emergency (ER) | payer OTHER ==
[~2019-08-17] VITALS: Ht 160 cm; Wt 94.5 kg
[~2019-08-17 22:32] MED LIST changes: +ACET1TAB37 PO; +IBUP80TA PO
[2019-08-18 00:39] LABS: BASO # 0.1 10^3/uL (0.0-0.2); EOS # 0.3 10^3/uL (0.0-0.5); EOS % 4.2 % (0.0-3.0); HEMATOCRIT 41.2 % (36.0-47.0); HEMOGLOBIN 13.4 g/dl (12.0-15.5); LYMPH # 1.2 10^3/uL (1.5-5.0); LYMPH % 20.3 % (24.0-44.0); MEAN CORPUSCULAR HEMOGLOBIN 32.9 pg (27.0-33.0); MEAN CORPUSCULAR HGB CONC 32.5 g/dl (32.0-36.5); MEAN CORPUSCULAR VOLUME 101.2 fl (80.0-96.0); MONO # 0.3 10^3/uL (0.0-0.8); MONO % 4.2 % (0.0-5.0); NEUTROPHILS # 4.3 10^3/uL (1.5-8.5); NEUTROPHILS % 69.8 % (36.0-66.0); PLATELET COUNT, AUTOMATED 124 10^3/uL (150-450); RED BLOOD COUNT 4.07 10^6/uL (4.00-5.40); WHITE BLOOD COUNT 6.1 10^3/uL (4.0-10.0)
[2019-08-18 01:43] LABS: FREE T4 0.5 NG/DL (0.76-1.46)
[2019-08-18] MEDS ORDERED: LEVOTHYROXINE 150MCG TABLET (0.15MG) PO STA (01:56)
[2019-08-18] MEDS ORDERED: LEVO150T7 PO (02:00)
[2019-08-18 02:33] VITALS: BP 143/97
== END 2019-08-18 02:34 | disposition home or self-care (01) ==
LOC: M ED 22:32
DX: R94.6 Abnormal results of thyroid function studies (principal); R79.89 Other specified abnormal findings of blood chemistry; I10 Essential (primary) hypertension; E78.5 Hyperlipidemia, unspecified; D86.9 Sarcoidosis, unspecified; Z79.899 Other long term (current) drug therapy; Z79.891 Long term (current) use of opiate analgesic; Z79.890 Hormone replacement therapy

== ENCOUNTER 2019-10-04 18:57 | Inpatient (IN) | payer OTHER ==
[~2019-10-04] VITALS: Ht 160 cm; Wt 101.9 kg
[2019-10-04 20:04] LABS: HEMATOCRIT 36.7 % (36.0-47.0); HEMOGLOBIN 12.1 g/dl (12.0-15.5); MEAN CORPUSCULAR HEMOGLOBIN 33.2 pg (27.0-33.0); MEAN CORPUSCULAR VOLUME 100.8 fl (80.0-96.0); PLATELET COUNT, AUTOMATED 123 10^3/uL (150-450); RED BLOOD COUNT 3.64 10^6/uL (4.00-5.40); WHITE BLOOD COUNT 5.6 10^3/uL (4.0-10.0)
[2019-10-04] MEDS ORDERED: METAL LOCK LOOP XX ONE (20:16)
[2019-10-04 20:26] LABS: AMPHETAMINES LEVEL URINE NEGATIVE (NEGATIVE); BARBITURATES URINE NEGATIVE (NEGATIVE); BENZODIAZEPINES URINE NEGATIVE (NEGATIVE); CANNABINOIDS URINE NEGATIVE (NEGATIVE); COCAINE METABOLITE URINE NEGATIVE (NEGATIVE); METHADONE URINE POSITIVE (NEGATIVE); OPIATES URINE NEGATIVE (NEGATIVE); PHENCYCLIDINE URINE NEGATIVE (NEGATIVE)
[2019-10-04 20:35] LABS: HCG, SERUM QUALITATIVE NEGATIVE (NEGATIVE)
[2019-10-04] MEDS: traZODone 50 MG TAB PO SCH (21:00)
[2019-10-04] MEDS: QUEtiapine FUMARATE 100 MG TAB PO SCH (21:00)
[2019-10-04 21:04] LABS: ACETAMINOPHEN LEVEL < 2.0 UG/ML (10.0-30.0); ALT/SGPT 19 U/L (12-78); BILIRUBIN,DIRECT 0.1 MG/DL (0.0-0.2); BILIRUBIN,TOTAL 0.4 MG/DL (0.2-1.0); BLOOD UREA NITROGEN 13 MG/DL (7-18); CARBON DIOXIDE LEVEL 32 MEQ/L (21-32); CHLORIDE LEVEL 103 MEQ/L (98-107); CREATININE FOR GFR 1.89 MG/DL (0.55-1.30); ETHYL ALCOHOL (ETHANOL) 0.004 % (0.000-0.010); GLOMERULAR FILTRATION RATE 31.9 (>60); GLUCOSE, FASTING 93 MG/DL (70-100); SALICYLATE LEVEL 4.7 MG/DL (5.0-30.0); SODIUM LEVEL 141 MEQ/L (136-145); TOTAL PROTEIN 7.1 GM/DL (6.4-8.2)
[2019-10-04 21:27] LABS: FREE THYROXINE INDEX 0.1 % (1.3-4.8); T UPTAKE 28 % (30-39); THYROXINE (T4) 0.5 UG/DL (4.5-12.0)
[2019-10-04] MEDS ORDERED: ONDANSETRON 4 MG TAB PO ONE (22:15)
[2019-10-04] MEDS ORDERED: SYNT150T PO (23:37)
[2019-10-04] MEDS ORDERED: IBUP1TAB7 PO (23:37)
[2019-10-04] MEDS ORDERED: ACET-897 PO (23:37)
[2019-10-04] MEDS ORDERED: TRAZ1TAB14 PO (23:37)
[2019-10-04] MEDS ORDERED: SERO1TAB PO (23:37)
[2019-10-04] MEDS ORDERED: GABA800T4 PO (23:37)
[2019-10-05] MEDS ORDERED: MAALOX 30 ML SUSP *UDC PO PRN (01:15)
[2019-10-05] MEDS ORDERED: MOM 30ML SUSPENSION UDC PO PRN (01:15)
[2019-10-05 04:54] VITALS: BP 144/93
[2019-10-05] MEDS: LEVOTHYROXINE 75MCG TABLET (0.075MG) PO SCH (05:34)
[2019-10-05] MEDS: ACETAMINOPHEN TAB 650MG DOSE (2X325MG) PO PRN (05:35)
[2019-10-05] MEDS: PROPRANOLOL 10 MG TAB PO SCH ×3 (09:00→21:22)
[2019-10-05] MEDS: ESCITALOPRAM OXALATE 10 MG TAB (LEXAPRO) PO SCH ×2 (09:00→10:14)
[2019-10-05] MEDS: OLANZapine ORAL DISINTEGRATING TAB 5MG PO PRN (10:15)
[2019-10-05] MEDS: NICOTINE 21MG/24HR 1 EA TRANSDERMAL TD PRN (10:15)
[2019-10-05] MEDS: METHADONE 10 MG TAB (S0109) PO SCH (10:47)
--- NOTE | 2019-10-05 11:43 | HPE ---
DATE OF ADMISSION: 10/05/2019 Deborah is seen for inpatient mental health hospitalist generated history and physical. She has frequent inpatient mental health hospitalizations. She was recently seen on 03/13/2019. PAST MEDICAL HISTORY: Past history shows sarcoidosis, depression, polysubstance drug abuse, history of hypothyroidism. PAST SURGICAL HISTORY: Past surgical history . FAMILY HISTORY: Mother had diabetes. SOCIAL HISTORY: History of smoking, polysubstance and drug abuse. REVIEW OF SYSTEMS: No cough, wheeze, hemoptysis, fever or chills. She has a bit of a baseline tremor. CURRENT MEDICATIONS: - Celexa 10 or 20 mg daily - gabapentin 800 mg three times a day - Ibuprofen 800 every 6 hours - levothyroxine 150 mcg daily - methadone 140 mg daily - propranolol 10 mg twice a day - Seroquel 100 mg nightly - trazodone 150 mg nightly ALLERGIES: None known. PHYSICAL EXAMINATION: Vital signs per flow sheet. Alert, conversant, no distress, no tremor. HEENT: Unremarkable. Lungs clear. Heart regular rhythm. Abdomen soft. Nontender. No masses. No peripheral edema. Thyroid has no dominant masses. No cervical adenopathy. LABS: CBC unremarkable. TSH 185. IMPRESSION: 1. Hypothyroidism: History of noncompliance. TSH is significantly elevated showing gross noncompliance with her levothyroxine. She will be restarted at the previous dose. A free T4, TSH done in 6-8 weeks. 2. History of tremor: She is on propranolol 10 mg twice a day for this, which she will continue. 3. Various psychiatric conditions: Per psychiatry. 4. Sarcoidosis: Will encourage her to keep her followup appointments with pulmonary. She sees Dr. Hurst. 5. Tobacco abuse: Smoking cessation advised.
[2019-10-05 16:39] VITALS: BP 102/59
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
[2019-10-05] MEDS ORDERED: GABAPENTIN 400 MG CAP PO SCH (21:00)
[2019-10-05] MEDS: QUEtiapine FUMARATE 100 MG TAB PO SCH (21:21)
[2019-10-05] MEDS: traZODone 50 MG TAB PO SCH (21:22)
[2019-10-05] MEDS ORDERED: GABAPENTIN 300 MG CAP PO ONE (22:00)
[2019-10-06] MEDS: LEVOTHYROXINE 75MCG TABLET (0.075MG) PO SCH (06:03)
[2019-10-06 06:23] VITALS: BP 106/53
[2019-10-06] MEDS: ESCITALOPRAM OXALATE 10 MG TAB (LEXAPRO) PO SCH (09:54)
[2019-10-06] MEDS: METHADONE 10 MG TAB (S0109) PO SCH (09:55)
[2019-10-06] MEDS: PROPRANOLOL 10 MG TAB PO SCH ×2 (09:55→21:54)
[2019-10-06] MEDS: NICOTINE 21MG/24HR 1 EA TRANSDERMAL TD PRN (11:09)
[2019-10-06] MEDS: ACETAMINOPHEN TAB 650MG DOSE (2X325MG) PO PRN (12:42)
[2019-10-06] MEDS: OLANZapine ORAL DISINTEGRATING TAB 5MG PO PRN ×2 (12:42→21:55)
[2019-10-06] MEDS: GABAPENTIN 400 MG CAP PO SCH ×2 (15:40→21:54)
[2019-10-06 16:55] VITALS: BP 108/58
--- NOTE | 2019-10-06 18:41 | MHIPNPDOC ---
[facility] Progress Note Progress Note DATE OF SERVICE: 10/06/19 Deborah was seen for medical psychotherapy today 20 minutes was spent with the patient Patient was seen for a medical psychotherapy session in which the patient's treatment plan was reviewed, mental status exam performed, vital signs reviewed, current medical conditions reviewed, and treatment goals were reviewed This visit was performed as a telehealth visit utilizing an interactive a/v telecommunications system or telephone that permitted real time communication between myself and the patient--permission/consent from patient/guardian was obtained Deborah throughout the session and remained very focused on her medical medications and pain relief specifically her use of Motrin The dosage of the Motrin was adjusted to 400 mg 3 times a day because of a concern around kidney function She also requested that she have Wellbutrin added because of past treatment and success in using that particular medication along with the Lexapro for her depression MENTAL STATUS EXAM Level of consciousness--patient was alert and oriented to time place person Appearance-normal posture, normal dress, no prominent physical abnormalities, alert, cooperative Behavior--like to good, no psychomotor agitation or retardation, no abnormal movements, no tremor Speech--normal rate and rhythm--normal volume Mood--euthymic Affect--normal range and consistent with mood--stable Thought processes--logical and linear , goal directed and coherent--no thought blocking or flight of ideas, no loose associations, no tangential thinking, no word salad, no thought blocking, no circumstantiality Thought content--no ideas of reference no auditory or visual hallucinations, no delusional thinking, no thoughts of derealization or depersonalization, no obsessive thinking, no expressed phobias, Cognition--patient was alert and able to focus-sustained appropriate mental attention-memory immediate and short-term memory intact-abstract thinking present, Insight---fair Judgment or the ability to anticipate consequences of behavior intact Patient denied any suicidal ideation or impulses Patient denied any homicidal impulses or ideation No other changes in treatment plan and I will see her again tomorrow Vital Signs Vital Signs Date Time Temp Pulse Resp B/P (MAP) Pulse Ox O2 Delivery O2 Flow Rate FiO2 10/06/19 16:55 97.8 56 20 108/58 (75) 10/06/19 06:23 Room Air 10/05/19 04:54 97 Current Medications Current Medications Medications (Trade) Dose Ordered Sig/[place] Route PRN Reason Start Time Stop Time Status Last Admin Dose Admin Acetaminophen (Tylenol Tab) 650 mg Q4HP PRN PO PAIN 10/05/19 01:15 10/06/19 12:42 Al Hydrox/Mg Hydrox/Simethicone (Mylanta) 30 ml Q6HP PRN PO INDIGESTION 10/05/19 01:15 Escitalopram Oxalate (Lexapro) 10 mg DAILY PO 10/05/19 09:00 10/06/19 09:54 Gabapentin (Neurontin) 400 mg TID PO 10/06/19 16:00 10/06/19 15:40 Gabapentin (Neurontin) 800 mg QID PO 10/05/19 21:00 10/06/19 14:29 DC Home Med (Med Rec Complete!) ASDIRECTED XX 10/05/19 11:00 10/05/19 10:51 DC Levothyroxine Sodium (Synthroid) 75 mcg DAILY@0600 PO 10/05/19 06:00 10/06/19 06:03 Magnesium Hydroxide (Milk Of Magnesia) 30 ml DAILYPRN PRN PO CONSTIPATION 10/05/19 01:15 Methadone HCl (Dolophine) 140 mg DAILY PO 10/05/19 09:00 10/06/19 09:55 Nicotine (Nicoderm Cq 21mg) 1 patch DAILY PRN TD nicotine withdrawl 10/05/19 01:15 10/06/19 11:09 Olanzapine (ZyPREXA ZYDIS) 5 mg Q4HP PRN PO ANXIETY/AGITATION 10/05/19 01:15 10/06/19 12:42 Propranolol HCl (Inderal) 10 mg BID PO 10/05/19 09:00 10/06/19 09:55 Quetiapine Fumarate (SEROquel) 100 mg QHS PO 10/04/19 21:00 10/05/19 21:21 Trazodone HCl (Desyrel) 150 mg QHS PO 10/04/19 21:00 10/05/19 21:22 Allergies Coded Allergies: No Known Allergies (Verified , 10/22/18) Jeffrey Hummel MD Oct 06, 2019 18:41
[2019-10-06] MEDS: QUEtiapine FUMARATE 100 MG TAB PO SCH (21:54)
[2019-10-06] MEDS: traZODone 50 MG TAB PO SCH (21:55)
[2019-10-07] MEDS: LEVOTHYROXINE 75MCG TABLET (0.075MG) PO SCH (06:08)
[2019-10-07 06:42] VITALS: BP 95/45
[2019-10-07] MEDS: ESCITALOPRAM OXALATE 10 MG TAB (LEXAPRO) PO SCH (08:10)
[2019-10-07] MEDS: buPROPion (WELLBUTRIN SR) 100 MG SR TAB PO SCH (08:10)
[2019-10-07] MEDS: GABAPENTIN 400 MG CAP PO SCH ×2 (08:10→16:22)
[2019-10-07] MEDS: PROPRANOLOL 10 MG TAB PO SCH ×2 (08:12→21:55)
[2019-10-07] MEDS: METHADONE 10 MG TAB (S0109) PO SCH (08:12)
[2019-10-07] MEDS: ACETAMINOPHEN TAB 650MG DOSE (2X325MG) PO PRN (12:43)
[2019-10-07] MEDS: OLANZapine ORAL DISINTEGRATING TAB 5MG PO PRN (12:43)
[2019-10-07] MEDS: NICOTINE 21MG/24HR 1 EA TRANSDERMAL TD PRN (12:44)
--- NOTE | 2019-10-07 17:11 | MHIPNPDOC ---
[facility] Progress Note Progress Note DATE OF SERVICE: 10/07/19 Deborah was seen on medical psychotherapy rounds 20 minutes was spent with the patient and documentation Patient was seen for a medical psychotherapy session in which the patient's treatment plan was reviewed, mental status exam performed, vital signs r eviewed, current medical conditions reviewed, and treatment goals were reviewed This visit was performed as a telehealth visit utilizing an interactive a/v telecommunications system or telephone that permitted real time communication between myself and the patient--permission/consent from patient/guardian was obtained Deborah continues to struggle with physical discomfort and anxiety--he feels as if the dose of the Neurontin is insufficient having been on 800 mg 3 times a day as an outpatient--- at this point because of the abnormal glomerular alteration rate we did feel as if we needed to make an adjustment in the dosage of the Neurontin--- he first went down to 400 mg 3 times a day but the patient is reporting a lack of a positive response at that dose--today we increased it to 600 3 times a day and we will closely monitor with appropriate blood tests Vital Signs Vital Signs Date Time Temp Pulse Resp B/P (MAP) Pulse Ox O2 Delivery O2 Flow Rate FiO2 10/07/19 08:12 57 110/68 10/07/19 06:42 97.4 12 Room Air 10/05/19 04:54 97 Current Medications Current Medications Medications (Trade) Dose Ordered Sig/Mercedez Route PRN Reason Start Time Stop Time Status Last Admin Dose Admin Acetaminophen (Tylenol Tab) 650 mg Q4HP PRN PO PAIN 10/05/19 01:15 10/07/19 12:43 Al Hydrox/Mg Hydrox/Simethicone (Mylanta) 30 ml Q6HP PRN PO INDIGESTION 10/05/19 01:15 Bupropion HCl (Wellbutrin Sr) 100 mg DAILY PO 10/07/19 09:00 10/07/19 08:10 Escitalopram Oxalate (Lexapro) 10 mg DAILY PO 10/05/19 09:00 10/07/19 08:10 Gabapentin (Neurontin) 400 mg TID PO 10/06/19 16:00 10/07/19 16:56 DC 10/07/19 16:22 Gabapentin (Neurontin) 600 mg TID PO 10/07/19 21:00 Gabapentin (Neurontin) 800 mg QID PO 10/05/19 21:00 10/06/19 14:29 DC Home Med (Med Rec Complete!) ASDIRECTED XX 10/05/19 11:00 10/05/19 10:51 DC Levothyroxine Sodium (Synthroid) 75 mcg DAILY@0600 PO 10/05/19 06:00 10/07/19 06:08 Magnesium Hydroxide (Milk Of Magnesia) 30 ml DAILYPRN PRN PO CONSTIPATION 10/05/19 01:15 Methadone HCl (Dolophine) 140 mg DAILY PO 10/05/19 09:00 10/07/19 08:12 Nicotine (Nicoderm Cq 21mg) 1 patch DAILY PRN TD nicotine withdrawl 10/05/19 01:15 10/07/19 12:44 Olanzapine (ZyPREXA ZYDIS) 5 mg Q4HP PRN PO ANXIETY/AGITATION 10/05/19 01:15 10/07/19 12:43 Propranolol HCl (Inderal) 10 mg BID PO 10/05/19 09:00 10/07/19 08:12 Quetiapine Fumarate (SEROquel) 100 mg QHS PO 10/04/19 21:00 10/06/19 21:54 Trazodone HCl (Desyrel) 150 mg QHS PO 10/04/19 21:00 10/06/19 21:55 Allergies Coded Allergies: No Known Allergies (Verified , 10/22/18) Jeffrey Hummel MD Oct 07, 2019 17:11
[2019-10-07 18:11] VITALS: BP 146/62
[2019-10-07] MEDS: QUEtiapine FUMARATE 100 MG TAB PO SCH (21:52)
[2019-10-07] MEDS: GABAPENTIN 300 MG CAP PO SCH (21:52)
[2019-10-07] MEDS: traZODone 50 MG TAB PO SCH (21:52)
[2019-10-08] MEDS: LEVOTHYROXINE 75MCG TABLET (0.075MG) PO SCH (06:12)
[2019-10-08 06:44] VITALS: BP 108/64
[2019-10-08] MEDS: PROPRANOLOL 10 MG TAB PO SCH ×2 (08:20→20:17)
[2019-10-08] MEDS: ESCITALOPRAM OXALATE 10 MG TAB (LEXAPRO) PO SCH (08:21)
[2019-10-08] MEDS: METHADONE 10 MG TAB (S0109) PO SCH (08:21)
[2019-10-08] MEDS: GABAPENTIN 300 MG CAP PO SCH ×3 (08:21→20:17)
[2019-10-08] MEDS: buPROPion (WELLBUTRIN SR) 100 MG SR TAB PO SCH (08:21)
[2019-10-08] MEDS: NICOTINE 21MG/24HR 1 EA TRANSDERMAL TD PRN (08:38)
[2019-10-08] MEDS: OLANZapine ORAL DISINTEGRATING TAB 5MG PO PRN ×2 (12:34→20:15)
[2019-10-08 15:48] VITALS: BP 100/57
[2019-10-08] MEDS: QUEtiapine FUMARATE 100 MG TAB PO SCH (20:15)
[2019-10-08] MEDS: traZODone 50 MG TAB PO SCH (20:16)
[2019-10-08] MEDS ORDERED: diphenhydrAMINE 50MG/ML VIAL (J1200) IM ONE (22:15)
[2019-10-09] MEDS: LEVOTHYROXINE 75MCG TABLET (0.075MG) PO SCH (06:06)
[2019-10-09 06:19] VITALS: BP 113/52
[2019-10-09] MEDS: buPROPion (WELLBUTRIN SR) 100 MG SR TAB PO SCH (08:45)
[2019-10-09] MEDS: PROPRANOLOL 10 MG TAB PO SCH ×2 (08:46→20:38)
[2019-10-09] MEDS: ESCITALOPRAM OXALATE 10 MG TAB (LEXAPRO) PO SCH (08:46)
[2019-10-09] MEDS: GABAPENTIN 300 MG CAP PO SCH ×3 (08:46→20:38)
[2019-10-09] MEDS: METHADONE 10 MG TAB (S0109) PO SCH (08:46)
--- NOTE | 2019-10-09 09:19 | MHIPN ---
DATE: 10/08/2019 The patient is seen via telepsychiatry due to the current Coronavirus crisis. The patient tells me "I'm still very depressed, have racing thoughts, and keep thinking about all the bad things in my life." She also complains "my anxiety is really bad, I wake up in a panic every morning." Her speech appears to be quite pressured. MENTAL STATUS EXAMINATION: This patient is alert and oriented times three. She appears to have racing thoughts, flight of ideas, and pressured speech. No formal thought disorder noted. She says her mood is anxious. Affect is appropriate to mood. She is not psychotic, suicidal, or homicidal. Concentration is fair. Insight and judgment is poor. DIAGNOSES: 1. Schizoaffective disorder. 2. Opioid use disorder. TREATMENT PLAN: At this point, the patient complains of increased anxiety. She said in the past she used to take Seroquel 50 mg twice a day in addition to her 100 mg she takes at bedtime. I will go ahead and order that for this patient. We will continue to monitor the patient for what appears to be significant manic-like symptoms.
[2019-10-09] MEDS: QUEtiapine FUMARATE 25 MG TAB PO SCH ×2 (11:24→16:12)
[2019-10-09 15:59] VITALS: BP 121/62
[2019-10-09 16:30] VITALS: BP 114/71
[2019-10-09] MEDS: OLANZapine ORAL DISINTEGRATING TAB 5MG PO PRN (20:38)
[2019-10-09] MEDS: traZODone 50 MG TAB PO SCH (20:38)
[2019-10-09] MEDS: QUEtiapine FUMARATE 100 MG TAB PO SCH (20:38)
[2019-10-09] MEDS ORDERED: QUEtiapine FUMARATE 25 MG TAB PO SCH (21:00)
[2019-10-10] MEDS: LEVOTHYROXINE 75MCG TABLET (0.075MG) PO SCH (05:54)
[2019-10-10 06:35] VITALS: BP 112/71
--- NOTE | 2019-10-10 08:09 | MHIPN ---
DATE OF SERVICE: 10/09/2019 The patient is seen via telepsychiatry due to the current Coronavirus crisis. The patient today tells me, "I am still very depressed and anxious". The patient states that her thoughts are not racing as much as they had been yesterday, but they are not completely back to normal. MENTAL STATUS EXAMINATION: This patient is alert and oriented times three. She is pleasant and cooperative. Eye contact is fair. Speech still remains pressured with some flight of ideas. There is no formal thought disorder noted. Mood is depressed and anxious. Affect is appropriate to mood. She is not suicidal or homicidal today. She is not psychotic. Memory is intact. Insight and judgment fair. DIAGNOSIS: Schizoaffective disorder. Opioid use disorder. TREATMENT PLAN: At this point, will continue to monitor the patient for continued elevation and stabilization of her mood and for continued stabilization of her thinking and continued resolution of any suicidal ideations. At this point, we will increase the Seroquel so she will have 25 mg twice a day and 100 mg at bedtime. She will have gabapentin 600 mg three times a day and continue 100 mg at bedtime, this is to help her with her anxiety.
[2019-10-10 08:19] VITALS: BP 114/65
[2019-10-10] MEDS: ESCITALOPRAM OXALATE 10 MG TAB (LEXAPRO) PO SCH (08:19)
[2019-10-10] MEDS: PROPRANOLOL 10 MG TAB PO SCH (08:19)
[2019-10-10] MEDS: GABAPENTIN 300 MG CAP PO SCH (08:19)
[2019-10-10] MEDS: QUEtiapine FUMARATE 25 MG TAB PO SCH (08:20)
[2019-10-10] MEDS: METHADONE 10 MG TAB (S0109) PO SCH (08:20)
[2019-10-10] MEDS: buPROPion (WELLBUTRIN SR) 100 MG SR TAB PO SCH (08:20)
[2019-10-10] MEDS: NICOTINE 21MG/24HR 1 EA TRANSDERMAL TD PRN (08:24)
--- NOTE | 2019-10-10 09:27 | MHIPNPDOC ---
[facility] Progress Note Progress Note DATE OF SERVICE: 10/10/19 HISTORY: . VITAL SIGNS: See below. NEW TEST RESULTS: . CURRENT MEDICATIONS: See below. MENTAL STATUS EXAMINATION: Patient is a -year old female, who is . Speech: Is . Language skills are . Thought processes including: . Thought content: . Abstract reasoning, and computation: . Description of assoc iations: . Description of abnormal or psychotic thoughts: . Judgment: . Insight: [very limited, good, fair. poor]. Orientation: . Recent and remote memory: . Attention span and concentration: . Language: . Fund of knowledge: . Mood: . Affect: . DIAGNOSES: 1. . 2. . 3. . ASSESSMENT: MANAGEMENT PLAN: . TIME SPENT: minutes. Vital Signs Vital Signs Date Time Temp Pulse Resp B/P (MAP) Pulse Ox O2 Delivery O2 Flow Rate FiO2 10/10/19 08:19 70 114/65 10/10/19 06:35 97.9 16 98 Room Air Current Medications Current Medications Medications (Trade) Dose Ordered Sig/Mercedez Route PRN Reason Start Time Stop Time Status Last Admin Dose Admin Acetaminophen (Tylenol Tab) 650 mg Q4HP PRN PO PAIN 10/05/19 01:15 10/07/19 12:43 Al Hydrox/Mg Hydrox/Simethicone (Mylanta) 30 ml Q6HP PRN PO INDIGESTION 10/05/19 01:15 Bupropion HCl (Wellbutrin Sr) 100 mg DAILY PO 10/07/19 09:00 10/10/19 08:20 Escitalopram Oxalate (Lexapro) 10 mg DAILY PO 10/05/19 09:00 10/10/19 08:19 Gabapentin (Neurontin) 400 mg TID PO 10/06/19 16:00 10/07/19 16:56 DC 10/07/19 16:22 Gabapentin (Neurontin) 600 mg TID PO 10/07/19 21:00 10/10/19 08:19 Gabapentin (Neurontin) 800 mg QID PO 10/05/19 21:00 10/06/19 14:29 DC Home Med (Med Rec Complete!) ASDIRECTED XX 10/05/19 11:00 10/05/19 10:51 DC Levothyroxine Sodium (Synthroid) 75 mcg DAILY@0600 PO 10/05/19 06:00 10/10/19 05:54 Magnesium Hydroxide (Milk Of Magnesia) 30 ml DAILYPRN PRN PO CONSTIPATION 10/05/19 01:15 Methadone HCl (Dolophine) 140 mg DAILY PO 10/05/19 09:00 10/10/19 08:20 Nicotine (Nicoderm Cq 21mg) 1 patch DAILY PRN TD nicotine withdrawl 10/05/19 01:15 10/10/19 08:24 Olanzapine (ZyPREXA ZYDIS) 5 mg Q4HP PRN PO ANXIETY/AGITATION 10/05/19 01:15 10/09/19 20:38 Propranolol HCl (Inderal) 10 mg BID PO 10/05/19 09:00 10/10/19 08:19 Quetiapine Fumarate (SEROquel) 25 mg BID PO 10/09/19 21:00 10/09/19 10:41 DC Quetiapine Fumarate (SEROquel) 25 mg BID@0900,1600 PO 10/09/19 09:00 10/10/19 08:20 Quetiapine Fumarate (SEROquel) 100 mg QHS PO 10/04/19 21:00 10/09/19 20:38 Trazodone HCl (Desyrel) 150 mg QHS PO 10/04/19 21:00 10/09/19 20:38 Allergies Coded Allergies: No Known Allergies (Verified , 10/22/18) ADDIS ERNANDEZ DO Oct 10, 2019 09:27
--- NOTE | 2019-10-10 09:29 | MHDSPDOC ---
[facility] [place]charge Summary Discharge Summary DATE OF ADMISSION: Oct 05, 2019 at 00:49 DATE OF DISCHARGE: Oct 10, 2019 at 14:36 DISCHARGE DIAGNOSES: Depression related to medical condition borderline personality disorder intellectual disability, unspecified opioid use disorder on maintenance alcohol use disorder, unspecified REASON FOR ADMISSION: 39-year-old woman admitted after multiple stressful events as well as noncompliance with their home medications left her feeling depressed and fatigued as well suicidal CONSULTANTS INVOLVED:[ None (basic hospitalist screening)] TREATMENT AND PROGRESS ON THE UNIT : Medication changes: restart on her home medications of Lexapro, gabapentin, propranolol and Seroquel with no changes Behavior on unit: generally mandating, however she made improvement and became more engaged in treatment and return to her baseline quite quickly once resumed on her home meds Treatment attendance: attended as she improved Notable issues on presentation: patient had run out of her medications on admission State on discharge: [improved] DISCHARGE ASSESSMENT: The patient a 39 year old woman, with likely depression related to her poorly controlled thyroid condition among personality disorder, presented to [facility], where they resumed on their home medications without any major alterations improving well. Legal status considerations: The patient at the time of discharge did not meet criteria for involuntary admission/extension due to having a, baseline mental status exam,, baseline insight into the situation, They are engaged in the discharge process, as well as being friendly and amenable in behavioral control and havent been engaging in any observed concerning behavior or ideation recently. They decline voluntary extension/admission at this time and must be discharged in good jaun, as Im unable to make a case for holding the patient against their will. They may have historical risk factors of admissions and other interactions with psychiatry however, those are not modifiable from a clinical perspective. The patient will need to be discharged in good jaun. MENTAL STATUS EXAMINATION ON DISCHARGE: General: [Well dressed with good hygiene] Speech: [Spontaneous and fluid] Thought processes: [Linear and logical] Thought content: [Future orientated] Abstract reasoning, and computation: [Intact] Description of associations: [Intact] Description of abnormal or psychotic thoughts:[Denies any suicidal or homicidal ideation. Denies any auditory or visual hallucinations. Does not appear to be responding to internal stimuli. Does not appear to be endorsing any bizarre or paranoid ideation.] Judgment: baseline, limited Insight: baseline, limited Orientation: [Alert and orientated 3] Recent and remote memory: [Intact] Attention span and concentration: [Intact] Fund of knowledge: estimated likely IQ at 70 Mood: ["okay"] Affect: [Euthymic with a full range] PLAN/FOLLOWUP ARRANGEMENTS: Follow up appointments made (PCP and MH in 5 days of D/C date) and safety plan completed. Safety Planning aspects completed prior to discharge [Medication supplies limited to 7 days with 4 refills to prevent accumulation to OD] [RN reviewed crisis hotline information and other aspects to empower patient to access care in interim before next appointment.] The amount of time spent in the coordination of care for this patient was approximately 30 minutes. Vital Signs/I&Os Vital Signs Date Time Temp Pulse Resp B/P (MAP) Pulse Ox O2 Delivery O2 Flow Rate FiO2 10/10/19 08:19 70 114/65 10/10/19 06:35 97.9 16 98 Room Air Medications Scheduled Escitalopram Oxalate (Escitalopram Oxalate) 10 Mg Tablet, 10 MG PO DAILY for mood for 7 Days, #7 TAKES WITH A 20MG TABLET FOR TOTAL OF 30MG Escitalopram Oxalate (Escitalopram Oxalate) 20 Mg Tablet, 20 MG PO DAILY for mood for 7 Days, #7 TAKES WITH 10MG TABLET FOR TOTAL OF 30MG Gabapentin (Gabapentin) 800 Mg Tablet, 800 MG PO TID for anxiety for 7 Days, #21 Levothyroxine Sodium (Synthroid) 150 Mcg Tablet, 150 MCG PO DAILY for thyroid for 7 Days, #7 Methadone HCl (Methadone HCl) 10 Mg/1 Ml Oral.conc, 140 MG PO DAILY, (Reported) Propranolol HCl (Propranolol HCl) 10 Mg Tablet, 10 MG PO BID for anxiety for 7 Days, #14 Quetiapine Fumarate (Seroquel) 100 Mg Tablet, 100 MG PO QHS for mood for 7 Days, #7 Trazodone HCl (Trazodone HCl) 150 Mg Tablet, 150 MG PO QHS for sleep for 7 Days, #7 Scheduled PRN Acetaminophen (Tylenol Extra Strength) 500 Mg Tablet, 1,000 MG PO TID PRN for PAIN, (Reported) Ibuprofen (Ibuprofen) 800 Mg Tablet, 800 MG PO Q6H PRN for PAIN, (Reported) Nicotine (Nicotine Patch) 21 Mg Patch.td24, 1 PATCH TD DAILY PRN for nicotine withdrawl for 30 Days, #30 Olanzapine (Olanzapine) 5 Mg Tablet, 1 TAB PO BIDP PRN for ANXIETY/AGITATION for 7 Days, #14 Allergies Coded Allergies: No Known Allergies (Verified , 10/22/18) ADDIS ERNANDEZ DO Oct 10, 2019 09:29
[2019-10-10] MEDS ORDERED: OLAN5TAB PO (12:16)
[2019-10-10] MEDS ORDERED: NICO21PAT TD (12:16)
[2019-10-10] MEDS ORDERED: ESCI10TA2 PO (14:55)
[2019-10-10] MEDS ORDERED: SERO1TAB PO (14:55)
[2019-10-10] MEDS ORDERED: ESCI20TA PO (14:55)
[2019-10-10] MEDS ORDERED: SYNT150T PO (14:55)
[2019-10-10] MEDS ORDERED: GABA800T4 PO (14:55)
[2019-10-10] MEDS ORDERED: PROP10TA56 PO (14:55)
[2019-10-10] MEDS ORDERED: TRAZ1TAB14 PO (14:55)
== END 2019-10-10 14:36 | disposition home or self-care (01) | DRG 753 ==
LOC: M ED 18:57 → M ED INP 10-05 00:49 → M PSY 10-05 04:33
PROVIDERS: ADMIT Psychiatry & Neurology Psychiatry; ATTEND Psychiatry & Neurology Addiction Medicine
DX: F32.89 Other specified depressive episodes (principal); F11.20 Opioid dependence, uncomplicated; Z91.14 Patient's other noncompliance with medication regimen; F79 Unspecified intellectual disabilities; Z79.899 Other long term (current) drug therapy; Z63.79 Other stressful life events affecting family and household; E03.9 Hypothyroidism, unspecified; R25.1 Tremor, unspecified; D86.9 Sarcoidosis, unspecified; F60.3 Borderline personality disorder; F10.10 Alcohol abuse, uncomplicated

== ENCOUNTER → 2019-11-21 | Emergency (ER) | payer OTHER ==
[~2019-11-21] MED LIST changes: +ACET-897 PO; -ALL10TAB29 PO; +BUSP5TA PO; +CETI-24 PO; +GABA800T4 PO; +IBUP1TAB7 PO; +LEVO100T5 PO; +LEVO150T42 PO; +OLAN5TAB PO; +SERO150T2 PO; +SERO1TAB PO
== END | disposition left against medical advice (07) ==
LOC: M ED 15:05
DX: Z53.21 Procedure and treatment not carried out due to patient leaving prior to being seen by health care provider (principal)

== ENCOUNTER 2019-12-05 11:36 | Observation (INO) | payer OTHER ==
[~2019-12-05] VITALS: Ht 160 cm; Wt 109.5 kg
[~2019-12-05 11:36] MED LIST changes: -BUSP5TA PO; -LEVO100T5 PO; -LEVO150T42 PO; -SERO150T2 PO
[2019-12-05 12:28] LABS: HEMATOCRIT 39.4 % (36.0-47.0); HEMOGLOBIN 13.1 g/dl (12.0-15.5); MEAN CORPUSCULAR HEMOGLOBIN 32.9 pg (27.0-33.0); MEAN CORPUSCULAR HGB CONC 33.2 g/dl (32.0-36.5); PLATELET COUNT, AUTOMATED 154 10^3/uL (150-450); RED BLOOD COUNT 3.98 10^6/uL (4.00-5.40); WHITE BLOOD COUNT 5.6 10^3/uL (4.0-10.0)
[2019-12-05 12:46] LABS: HCG, SERUM QUALITATIVE NEGATIVE (NEGATIVE)
[2019-12-05 12:47] LABS: AMPHETAMINES LEVEL URINE NEGATIVE (NEGATIVE); BARBITURATES URINE NEGATIVE (NEGATIVE); BENZODIAZEPINES URINE NEGATIVE (NEGATIVE); CANNABINOIDS URINE NEGATIVE (NEGATIVE); COCAINE METABOLITE URINE NEGATIVE (NEGATIVE); METHADONE URINE POSITIVE (NEGATIVE); OPIATES URINE NEGATIVE (NEGATIVE); PHENCYCLIDINE URINE NEGATIVE (NEGATIVE)
[2019-12-05] MEDS ORDERED: BUPR150T3 PO (12:51)
[2019-12-05] MEDS ORDERED: QUET1TAB7 PO (12:51)
[2019-12-05 13:11] LABS: ACETAMINOPHEN LEVEL < 2.0 UG/ML (10.0-30.0); ALBUMIN 4.2 GM/DL (3.2-5.2); ALT/SGPT 15 U/L (12-78); BILIRUBIN,DIRECT 0.1 MG/DL (0.0-0.2); BILIRUBIN,TOTAL 0.3 MG/DL (0.2-1.0); BLOOD UREA NITROGEN 12 MG/DL (7-18); CALCIUM LEVEL 9.3 MG/DL (8.5-10.1); CARBON DIOXIDE LEVEL 32 MEQ/L (21-32); CHLORIDE LEVEL 101 MEQ/L (98-107); CREATININE FOR GFR 1.57 MG/DL (0.55-1.30); ETHYL ALCOHOL (ETHANOL) < 0.003 % (0.000-0.010); GLOMERULAR FILTRATION RATE 39.5 (>60); GLUCOSE, FASTING 93 MG/DL (70-100); POTASSIUM SERUM 4.3 MEQ/L (3.5-5.1); SALICYLATE LEVEL 4.7 MG/DL (5.0-30.0); SODIUM LEVEL 138 MEQ/L (136-145)
[2019-12-05] MEDS ORDERED: ALPRAZolam 0.25 MG TAB PO ONE (13:30)
[2019-12-05] MEDS ORDERED: LEVO150T42 PO (14:46)
[2019-12-05] MEDS ORDERED: LEXA1TAB2 PO (14:46)
[2019-12-05] MEDS ORDERED: LEXA1TAB PO (14:46)
[2019-12-05] MEDS ORDERED: TRAZ1TAB14 PO (14:46)
[2019-12-05] MEDS ORDERED: PROP10TA56 PO (14:46)
[2019-12-05] MEDS ORDERED: GABA800T4 PO (14:46)
[2019-12-05] MEDS ORDERED: SERO150T2 PO (14:48)
--- NOTE | 2019-12-05 15:55 | MHCRPDOC ---
[facility] Consultation Consultation recommend patient admitted to medicine for hypothyroidism and creatinine increase for restart and hydration, medicine can contact this provider for face to face once she is medically clear for disposition (even if not on -call that day), recommend 1:1 sitter, suspicion for depression related to a medical issue. Discussed with Dr. Chaney. Vital Signs Vital Signs Date Time Temp Pulse Resp B/P (MAP) Pulse Ox O2 Delivery O2 Flow Rate FiO2 12/05/19 11:43 98.7 74 16 123/59 (80) 99 Room Air Laboratory Data 24H Labs Laboratory Tests 2 12/05/19 11:48: Nucleated Red Blood Cells % (auto) 0.0, Anion Gap 5L, Glomerular Filtration Rate 39.5L, Calcium Level 9.3, Total Bilirubin 0.3, Direct Bilirubin 0.1, Aspartate Amino Transf (AST/SGOT) 18, Alanine Aminotransferase (ALT/SGPT) 15, Alkaline Phosphatase 104, Total Protein 8.0, Albumin 4.2, Albumin/Globulin Ratio 1.1L, Thyroid Stimulating Hormone (TSH) 187.000H, Human Chorionic Gonadotropin, Qual NEGATIVE, Salicylates Level 4.7L, Urine Opiates Screen NEGATIVE, Urine Methadone Screen POSITIVEH, Acetaminophen Level < 2.0L, Urine Barbiturates Screen NEGATIV E, Urine Phencyclidine Screen NEGATIVE, Urine Amphetamines Screen NEGATIVE, Urine Benzodiazepines Screen NEGATIVE, Urine Cocaine Metabolite Screen NEGATIVE, Urine Cannabinoids Screen NEGATIVE, Ethyl Alcohol Level < 0.003 Home Medications Current Medications Current Medications Medications (Trade) Dose Ordered Sig/Mer[place]ez Route PRN Reason Start Time Stop Time Status Last Admin Dose Admin Home Med (Med Rec Complete!) ASDIRECTED XX 12/05/19 15:00 12/05/19 14:50 DC Scheduled Bupropion Hcl (Bupropion Xl) 150 Mg Tab.er.24h, 150 MG PO DAILY, (Reported) Escitalopram Oxalate (Lexapro) 10 Mg Tablet, 10 MG PO DAILY, (Reported) 30 MG TOTAL DAILY Escitalopram Oxalate (Lexapro) 20 Mg Tablet, 20 MG PO DAILY, (Reported) TAKES 30 MG TOTAL DAILY Gabapentin (Gabapentin) 800 Mg Tablet, 800 MG PO TID, (Reported) Levothyroxine Sodium (Levoxyl) 150 Mcg Tablet, 150 MCG PO DAILY, (Reported) Methadone HCl (Methadone HCl) 10 Mg/1 Ml Oral.conc, 140 MG PO DAILY, (Reported) Propranolol HCl (Propranolol HCl) 10 Mg Tablet, 10 MG PO BID, (Reported) Quetiapine Fumarate (Quetiapine Fumarate) 25 Mg Tablet, 25 MG PO BID, (Reported) TAKES IN MORNING AND AT DINNER TIME Quetiapine Fumarate (Seroquel Xr) 150 Mg Tab.er.24h, 150 MG PO QHS, (Reported) Trazodone HCl (Trazodone HCl) 150 Mg Tablet, 150 MG PO QHS, (Reported) Scheduled PRN Acetaminophen (Tylenol Extra Strength) 500 Mg Tablet, 1,000 MG PO TID PRN for PAIN, (Reported) Ibuprofen (Ibuprofen) 800 Mg Tablet, 800 MG PO Q6H PRN for PAIN, (Reported) Allergies Coded Allergies: No Known Allergies (Verified , 10/22/18) ADDIS ERNANDEZ DO Dec 05, 2019 15:55
[2019-12-05 15:56] LABS: FREE T4 0.32 NG/DL (0.76-1.46)
[2019-12-05] MEDS ORDERED: IBUPROFEN 800 MG TAB PO PRN (17:15)
[2019-12-05] MEDS ORDERED: ACETAMINOPHEN TAB 650MG DOSE (2X325MG) PO PRN (17:15)
--- NOTE | 2019-12-05 17:24 | HPEPDOC ---
[facility] Medical History & Physical Date of Admission Dec 05, 2019 Date of Service: Dec 05, 2019 Attending Physician: DARCI LOPEZ MD History and Physical CHIEF COMPLAINT: Suicidal ideations HISTORY OF PRESENT ILLNESS: 39 y/o F with PMHx Depression, SI, recurrent admissions to [facility], severe hypothyroidism who presents with SI and depression, was cutting left wrist. Pt has been feeling depressed. No CP/SOB/palpitations. No N/V/abd pain. Pt notes she ran out of her medications 1 week ago. Takes Synthroid, but not daily. PAST MEDICAL HISTORY: As per HPI PAST SURGICAL HISTORY: None SOCIAL HISTORY: Smokes 1 ppd since age of 15. Denies alcohol use. FAMILY HISTORY: GM, daughter- hypothyroidism ALLERGIES: Please see below. REVIEW OF SYSTEMS: HEENT: Denies sore throat/headache CARDIOVASCULAR: Denies chest pain/palpitations RESPIRATORY: Denies shortness of breath/cough GASTROINTESTINAL: denies nausea/vomiting GENITOURINARY: Denies dysuria/urinary urgency. MUSCULOSKELETAL: Denies myalgias/arthralgias NEUROLOGICAL: Denies any focal weakness HOME MEDICATIONS: Please see below. PHYSICAL EXAMINATION: Vitals: (see below) General: No acute distress, laying comfortably in bed. HEENT: Moist mucous membranes. Neck: No JVD or lymphadenopathy Cardiac: RRR, No murmurs Pulm: Clear to auscultation b/l. No wheezing, rhonchi Abd: NT/ND + BS. obese Ext: No edema or cyanosis. Left wrist laceration does not appear deep. Mildly tender. No bleeding. Distal pulse intact cap refill <2sec Neuro: Strength 5/5 BUE and BLE. CN 2-12 intact. F to N intact Negative pronator drift. Negative Babinki. Sensation to fine touch intact. LABORATORY DATA: See below. ASSESSMENT/PLAN: 1. Renal insufficiency. ?baseline. Pt had Cr 1.89 when d/c from psych last month. Start IVF. Renal u/s 2. Severe hypothyoridism 2/2 noncompliance. Increase Synthroid to 200mcg/day. recheck TFTs outpt in 6-8 weeks. Discussed compliance and possible hypothyroidism contributing to depressive episodes. She verbalized understanding and will try to be more complaint 3. SI/Depression - 1:1. Management per psych 4. Non compliance complicating care 5. Macrocytosis - add folic acid /b12 to am labs 6. wrist laceration - does not appear deep; just superficial. no signs of infection - bacitracin ointment DVT Prophy: Hep SQ Pt expected to be hospitalized for <2midnidnights for the treatment of the above. Vital Signs Vital Signs Date Time Temp Pulse Resp B/P (MAP) Pulse Ox O2 Delivery O2 Flow Rate FiO2 12/05/19 11:43 98.7 74 16 123/59 (80) 99 Room Air Laboratory Data Labs 24H Laboratory Tests 2 12/05/19 11:48: Nucleated Red Blood Cells % (auto) 0.0, Anion Gap 5L, Glomerular Filtration Rate 39.5L, Calcium Level 9.3, Total Bilirubin 0.3, Direct Bilirubin 0.1, Aspartate Amino Transf (AST/SGOT) 18, Alanine Aminotransferase (ALT/SGPT) 15, Alkaline Phosphatase 104, Total Protein 8.0, Albumin 4.2, Albumin/Globulin Ratio 1.1L, Thyroid Stimulating Hormone (TSH) 187.000H, Free Thyroxine 0.32L, Human Chor ionic Gonadotropin, Qual NEGATIVE, Salicylates Level 4.7L, Urine Opiates Screen NEGATIVE, Urine Methadone Screen POSITIVEH, Acetaminophen Level < 2.0L, Urine Barbiturates Screen NEGATIVE, Urine Phencyclidine Screen NEGATIVE, Urine Amphetamines Screen NEGATIVE, Urine Benzodiazepines Screen NEGATIVE, Urine Cocaine Metabolite Screen NEGATIVE, Urine Cannabinoids Screen NEGATIVE, Ethyl Alcohol Level < 0.003 CBC/BMP Laboratory Tests 12/05/19 11:48 Home Medications Scheduled Bupropion Hcl (Bupropion Xl) 150 Mg Tab.er.24h, 150 MG PO DAILY Escitalopram Oxalate (Lexapro) 10 Mg Tablet, 10 MG PO DAILY 30 MG TOTAL DAILY Escitalopram Oxalate (Lexapro) 20 Mg Tablet, 20 MG PO DAILY TAKES 30 MG TOTAL DAILY Gabapentin (Gabapentin) 800 Mg Tablet, 800 MG PO TID Levothyroxine Sodium (Levoxyl) 150 Mcg Tablet, 150 MCG PO DAILY Methadone HCl (Methadone HCl) 10 Mg/1 Ml Oral.conc, 140 MG PO DAILY Propranolol HCl (Propranolol HCl) 10 Mg Tablet, 10 MG PO BID Quetiapine Fumarate (Quetiapine Fumarate) 25 Mg Tablet, 25 MG PO BID TAKES IN MORNING AND AT DINNER TIME Quetiapine Fumarate (Seroquel Xr) 150 Mg Tab.er.24h, 150 MG PO QHS Trazodone HCl (Trazodone HCl) 150 Mg Tablet, 150 MG PO QHS Scheduled PRN Acetaminophen (Tylenol Extra Strength) 500 Mg Tablet, 1,000 MG PO TID PRN for PAIN Ibuprofen (Ibuprofen) 800 Mg Tablet, 800 MG PO Q6H PRN for PAIN Allergies Coded Allergies: No Known Allergies (Verified , 10/22/18) A-FIB/CHADSVASC A-FIB History Current/History of A-Fib/PAF?: No DARCI LOPEZ MD Dec 05, 2019 17:24
[2019-12-05] MEDS: QUEtiapine FUMARATE 25 MG TAB PO SCH (18:17)
[2019-12-05] MEDS: LEVOTHYROXINE 100MCG TABLET (0.1MG) PO SCH (18:18)
[2019-12-05] MEDS: ENOXAPARIN 40MG/0.4ML SYRINGE (J1650 PER 10MG) SC SCH ×2 (21:00→22:04)
[2019-12-05] MEDS: PROPRANOLOL 10 MG TAB PO SCH (21:00)
[2019-12-05] MEDS: GABAPENTIN 400 MG CAP PO SCH (22:03)
[2019-12-05] MEDS: NS 1,000 ML IV SCH (22:03)
[2019-12-05] MEDS: traZODone 50 MG TAB PO SCH (22:03)
[2019-12-06] VITALS (9 sets, daily range): BP systolic 86–134; BP diastolic 56–76
[2019-12-06] MEDS: BACITRACIN OINTMENT 30GM TUBE TOP SCH ×3 (01:46→20:05)
[2019-12-06] MEDS: LEVOTHYROXINE 100MCG TABLET (0.1MG) PO SCH (05:44)
[2019-12-06] MEDS: NS 1,000 ML IV SCH ×5 (05:48→20:04)
--- NOTE | 2019-12-06 06:04 | REPVR ---
PROCEDURE INFORMATION: Exam: US Retroperitoneal Limited, Kidneys Exam date and time: 12/06/19 (5:41am) Age: 39 years old Clinical indication: Renal insufficiency TECHNIQUE: Imaging protocol: Real-time ultrasound of the retroperitoneum with image documentation. Examination was focused on the kidneys. COMPARISON: No relevant prior studies available FINDINGS: Right kidney: No stones. No hydronephrosis. Measures 10.2 cm in length. Left kidney: No stones. No hydronephrosis. Measures 10.1 cm in length. IMPRESSION: No acute findings. Normal renal size, bilaterally. No hydronephrosis. Electronically signed by: Effie Manuel On 12/06/2019 06:03:39 AM
[2019-12-06 06:30] LABS: HEMATOCRIT 37.7 % (36.0-47.0); HEMOGLOBIN 12.4 g/dl (12.0-15.5); MEAN CORPUSCULAR HEMOGLOBIN 32.8 pg (27.0-33.0); MEAN CORPUSCULAR HGB CONC 32.9 g/dl (32.0-36.5); MEAN CORPUSCULAR VOLUME 99.7 fl (80.0-96.0); PLATELET COUNT, AUTOMATED 117 10^3/uL (150-450); RED BLOOD COUNT 3.78 10^6/uL (4.00-5.40); WHITE BLOOD COUNT 4.6 10^3/uL (4.0-10.0)
[2019-12-06 06:44] LABS: CREATININE FOR GFR 1.49 MG/DL (0.55-1.30); GLOMERULAR FILTRATION RATE 41.9 (>60); POTASSIUM SERUM 3.7 MEQ/L (3.5-5.1)
[2019-12-06] MEDS: PROPRANOLOL 10 MG TAB PO SCH (08:35)
[2019-12-06] MEDS: QUEtiapine FUMARATE 25 MG TAB PO SCH ×2 (08:36→17:14)
[2019-12-06] MEDS: buPROPion **XL** TABLET 150MG (WELLBUTRIN XL) PO SCH (08:36)
[2019-12-06] MEDS: GABAPENTIN 400 MG CAP PO SCH ×3 (08:36→20:05)
[2019-12-06] MEDS: ESCITALOPRAM OXALATE 10 MG TAB (LEXAPRO) PO SCH (08:36)
[2019-12-06] MEDS ORDERED: ESCITALOPRAM OXALATE 10 MG TAB (LEXAPRO) PO SCH (09:00)
[2019-12-06] MEDS: METHADONE 10 MG TAB (S0109) PO SCH (10:20)
[2019-12-06 12:47] LABS: CALCIUM LEVEL 8.5 MG/DL (8.5-10.1); CREATININE FOR GFR 1.4 MG/DL (0.55-1.30); POTASSIUM SERUM 3.9 MEQ/L (3.5-5.1)
--- NOTE | 2019-12-06 13:34 | IPNPDOC ---
Date Seen The patient was seen on 12/06/19. Progress Note Hospitalist Progress Note dictated job #[id number] Assessment: Acute on CKD3 Medical Noncompliance with medications Hypothyroidism, symptomatic Severe Depression Suicidal Ideation with wrist laceration Polysubstance abuse with opiate/ETOH abuse Macrocytosis Hypotension due to hypothyroidism and propranolol plan: trial of ivfluids rule out acute infectious process on synthroid, methadone 1:1 sitter dc to [facility] in AM if bp stable overnight. VS, I&O, 24H, Fishbone Vital Signs/I&O Vital Signs Date Time Temp Pulse Resp B/P (MAP) Pulse Ox O2 Delivery O2 Flow Rate FiO2 12/06/19 12:00 97.9 50 18 86/58 (67) 100 Room Air I&O- Last 24 Hours up to 6 AM 12/06/19 06:00 Intake Total 680 ml Output Total 0 ml Balance 680 ml Laboratory Data 24H LABS Laboratory Tests 2 12/06/19 05:23: Nucleated Red Blood Cells % (auto) 0.0, Anion Gap 6L, Glomerular Filtration Rate 41.9L, Calcium Level 9.0 12/06/19 11:58: Anion Gap 4L, Glomerular Filtration Rate 45.0L, Calcium Level 8.5 CBC/BMP Laboratory Tests 12/06/19 05:23 12/06/19 11:58 LEIGH HEARD MD Dec 06, 2019 13:13
[2019-12-06] MEDS ORDERED: MIDODRINE 2.5 MG TAB PO SCH (16:00)
[2019-12-06] MEDS: NICOTINE 14 MG/24 HR TRANSDERMAL TD SCH (17:13)
[2019-12-06 18:29] LABS: CREATININE FOR GFR 1.5 MG/DL (0.55-1.30); GLOMERULAR FILTRATION RATE 41.6 (>60); POTASSIUM SERUM 3.9 MEQ/L (3.5-5.1)
[2019-12-06] MEDS: traZODone 50 MG TAB PO SCH (20:05)
[2019-12-06] MEDS: ENOXAPARIN 40MG/0.4ML SYRINGE (J1650 PER 10MG) SC SCH ×2 (20:05→20:11)
[2019-12-07] VITALS: BP 116/56
[2019-12-07 04:00] VITALS: BP 110/59
[2019-12-07] MEDS: LEVOTHYROXINE 100MCG TABLET (0.1MG) PO SCH (05:49)
[2019-12-07 06:32] LABS: CALCIUM LEVEL 8.2 MG/DL (8.5-10.1); CREATININE FOR GFR 1.51 MG/DL (0.55-1.30); GLOMERULAR FILTRATION RATE 41.3 (>60); POTASSIUM SERUM 4.1 MEQ/L (3.5-5.1)
[2019-12-07 08:00] VITALS: BP_SYST 118; BP_SYST 126; BP_SYST 133; BP_DIAS 60; BP_DIAS 68; BP_DIAS 83
[2019-12-07] MEDS ORDERED: NS 1,000 ML IV ONE ×2 (08:00→09:00)
[2019-12-07] MEDS: METHADONE 10 MG TAB (S0109) PO SCH (08:03)
[2019-12-07] MEDS: ESCITALOPRAM OXALATE 10 MG TAB (LEXAPRO) PO SCH (08:03)
[2019-12-07] MEDS: QUEtiapine FUMARATE 25 MG TAB PO SCH (08:03)
[2019-12-07] MEDS: BACITRACIN OINTMENT 30GM TUBE TOP SCH (08:03)
[2019-12-07] MEDS: GABAPENTIN 400 MG CAP PO SCH ×2 (08:03→16:03)
[2019-12-07] MEDS: buPROPion **XL** TABLET 150MG (WELLBUTRIN XL) PO SCH (08:03)
[2019-12-07] MEDS: NICOTINE 14 MG/24 HR TRANSDERMAL TD SCH (08:04)
--- NOTE | 2019-12-07 08:36 | IPN ---
DATE: 12/06/2019 SUBJECTIVE: Patient seen and examined. Chart has been reviewed. Patient complains of dizziness when she ambulates from bed to the bathroom. No syncope. Denies chest pain, pressure, or tightness, palpitations. Denies nausea, vomiting, or abdominal pain despite intravenous (IV) fluids. The patient denies any shortness of breath. Denies any suicidal or homicidal ideation. Sitter in place. Telemetry unremarkable. OBJECTIVE: PHYSICAL EXAMINATION: VITALS: REVIEWED Input overnight: 880 input. Output of 200. Positive 680. current weight is 113.64 kg. GENERAL: Awake, alert, oriented to person, place, and time. Answering questions appropriately. Anicteric sclerae. No jaundice. No icterus. Speaks in full sentences. No jugular venous distention (JVD) or thyromegaly. Moist mucous membranes. Obese. LUNGS: Diminished but Clear to auscultation. No wheezing, rales, or rhonchi. HEART: S1, S2, sinus rhythm. No murmurs, rub, or gallops. ABDOMEN: Obese, soft, nontender, nondistended. EXTREMITIES: No cyanosis, clubbing, or pitting edema. LABORATORY DATA: Urine drug screen positive for methadone. White count 4.6, hemoglobin 12, hematocrit 37, platelet count 117, previous platelet count 154. Creatinine 1.4, admission creatinine of 1.57, sodium 138, potassium 3.9, chloride 105, bicarbonate 29, BUN 12, creatinine 1.4, glucose 100. TSH 187, free T4 of 0.32. Albumin 4.2. Microbiology: None. IMAGING STUDIES: Renal ultrasound: No hydronephrosis. Normal-appearing kidneys. ASSESSMENT AND PLAN: This is a 39-year-old female with a history of medical noncompliance. Has not taken her Synthroid for over 1 week. Suicidal ideation with severe depression. Presented to the emergency room with left wrist laceration due to intentional cutting, severe depression, suicidal ideation, severe hypothyroidism with elevated thyroid stimulating hormone (TSH), admitted to the medical service due to acute on chronic renal failure, stage III. 1. Acute on chronic renal failure, stage III. Patient has received IV fluids. Renal ultrasound was negative for hydronephrosis, kidney stone, or medical renal disease. Patient will be continued on IV fluids until she is at baseline with normal creatinine. Renally dose all medications. Discontinued patient's ibuprofen. 2. Severe hypotension with elevated TSH and low T4, currently on Synthroid. Increase it to 100 mcg daily. Patient currently complains of dizziness with low blood pressure of 84 systolic at the bedside. Check orthostatics and continue with IV fluid hydration. 3. Hypotension, rule out acute infectious process. Check urinalysis (UA) and chest x-ray. Continue IV fluid hydration and discontinue patient's propranolol. 4. History of polysubstance abuse with alcohol abuse and opiate abuse, on chronic methadone, which can be resumed at the home dose of 140 mg daily. 5. Severe depression, on Wellbutrin and Lexapro. Psychiatrist has been consulted for help in management. Inpatient mental health unit admission after medical stabilization. 6. Insomnia, on chronic trazodone. 7. Chronic neuropathy, on Neurontin 800 three times a day. 8. Obesity, body mass index (BMI) 44.4, complicating her care. DISPOSITION: Discharge to inpatient mental health unit if stable overnight. HILARIO
--- NOTE | 2019-12-07 08:38 | MHCRPDOC ---
[facility] Consultation Consultation DATE OF CONSULTATION: 12/07/19 HPI: Deborah presents today for follow-up in the hospital. She reports that she is still feeling depressed, and would like to continue staying in the hospital. She states that she is a little suicidal. She reports that her medication was taken away, and she is tired, bored, unable to sleep, and increase in anxiety because of the lack of medication. She would like to take the medication again. MEDICATIONS: Since her thyroid levels were not normal, she was given thyroid medication. Objective mildly dysthymic appearance fair i/j: baseline poor to fair Assessment F33.1 Major depressive disorder, recurrent, moderate F41.9 Anxiety disorder, unspecified Plan Patient would like to remain in the hospital and be admitted on a voluntary basis. Vital Signs Vital Signs Date Time Temp Pulse Resp B/P (MAP) Pulse Ox O2 Delivery O2 Flow Rate FiO2 12/07/19 04:00 96.8 55 18 110/59 (76) 94 Room Air Laboratory Data 24H Labs Laboratory Tests 2 12/06/19 11:58: Anion Gap 4L, Glomerular Filtration Rate 45.0L, Calcium Level 8.5 12/06/19 17:50: Anion Gap 6L, Glomerular Filtration Rate 41.6L, Calcium Level 8.0L 12/07/19 05:39: Anion Gap 5L, Glomerular Filtration Rate 41.3L, Calcium Level 8.2L Home Medications Current Medications Current Medications Medications (Trade) Dose Ordered Sig/[place] Route PRN Reason Start Time Stop Time Status Last Admin Dose Admin Acetaminophen (Tylenol Tab) 650 mg Q4H PRN PO PAIN OR FEVER 12/05/19 17:15 Bacitracin (Bacitracin Oint) APPLY TO AFFECTED AREA... BID TOP 12/05/19 21:00 12/06/19 20:05 Bupropion HCl (Wellbutrin Xl) 150 mg DAILY PO 12/06/19 09:00 12/07/19 08:03 Enoxaparin Sodium (Lovenox) 40 mg DAILY@2100 SC 12/05/19 21:00 Escitalopram Oxalate (Lexapro) 20 mg DAILY PO 12/06/19 09:00 12/05/19 17:37 DC Escitalopram Oxalate (Lexapro) 30 mg DAILY PO 12/06/19 09:00 12/07/19 08:03 Gabapentin (Neurontin) 800 mg TID PO 12/05/19 21:00 12/07/19 08:03 Home Med (Med Rec Complete!) ASDIRECTED XX 12/05/19 15:00 12/05/19 14:50 DC Ibuprofen (Advil) 800 mg Q6H PRN PO PAIN 12/05/19 17:15 12/06/19 07:59 DC Levothyroxine Sodium (Synthroid) 200 mcg DAILY@0600 PO 12/05/19 17:15 12/07/19 05:49 Methadone HCl (Dolophine) 50 mg DAILY PO 12/07/19 09:00 12/07/19 08:30 Methadone HCl (Dolophine) 140 mg DAILY PO 12/06/19 10:00 12/07/19 08:09 DC 12/06/19 10:20 Midodrine (Proamatine) 2.5 mg 08,12,16 PO 12/06/19 16:00 12/07/19 07:47 DC 12/06/19 17:14 Nicotine (Nicoderm Cq 14mg) 1 patch DAILY TD 12/06/19 09:00 12/07/19 08:04 Propranolol HCl (Inderal) 10 mg BID PO 12/05/19 21:00 12/06/19 13:14 DC 12/06/19 08:35 Quetiapine Fumarate (SEROquel) 25 mg BID@0800,1800 PO 12/05/19 18:00 12/07/19 08:03 Sodium Chloride 1,000 ml @ 0 mls/hr Q1H IV 12/06/19 08:00 12/06/19 09:01 DC 12/06/19 12:00 Sodium Chloride 1,000 ml @ 80 mls/hr [id number] IV 12/05/19 17:15 12/06/19 13:08 DC 12/06/19 05:48 Sodium Chloride 1,000 ml @ 150 mls/hr [id number] IV 12/06/19 13:15 12/07/19 02:56 DC 12/06/19 20:04 Trazodone HCl (Desyrel) 150 mg QHS PO 12/05/19 21:00 12/06/19 20:05 Scheduled Bupropion Hcl (Bupropion Xl) 150 Mg Tab.er.24h, 150 MG PO DAILY, (Reported) Escitalopram Oxalate (Lexapro) 10 Mg Tablet, 10 MG PO DAILY, (Reported) 30 MG TOTAL DAILY Escitalopram Oxalate (Lexapro) 20 Mg Tablet, 20 MG PO DAILY, (Reported) TAKES 30 MG TOTAL DAILY Gabapentin (Gabapentin) 800 Mg Tablet, 800 MG PO TID, (Reported) Levothyroxine Sodium (Levothyroxine Sodium) 100 Mcg Tablet, 200 MCG PO DA VINAY@0600 Methadone HCl (Methadone HCl) 10 Mg/1 Ml Oral.conc, 140 MG PO DAILY, (Reported) Quetiapine Fumarate (Quetiapine Fumarate) 25 Mg Tablet, 25 MG PO BID, (Reported) TAKES IN MORNING AND AT DINNER TIME Quetiapine Fumarate (Seroquel Xr) 150 Mg Tab.er.24h, 150 MG PO QHS, (Reported) Trazodone HCl (Trazodone HCl) 150 Mg Tablet, 150 MG PO QHS, (Reported) Scheduled PRN Acetaminophen (Tylenol Extra Strength) 500 Mg Tablet, 1,000 MG PO TID PRN for PAIN, (Reported) Allergies Coded Allergies: No Known Allergies (Verified , 10/22/18) ADDIS ERNANDEZ DO Dec 07, 2019 08:38
[2019-12-07] MEDS ORDERED: METHADONE 10 MG TAB (S0109) PO SCH (09:00)
[2019-12-07 12:00] VITALS: BP 110/58
[2019-12-07] MEDS ORDERED: LEVO100T5 PO (12:21)
[2019-12-07] MEDS ORDERED: METHADONE 10 MG TAB (S0109) PO ONE (13:00)
[2019-12-07 16:07] VITALS: BP 109/58
--- NOTE | 2019-12-09 10:45 | IPN ---
DATE: 12/07/2019 SUBJECTIVE: Patient seen and examined at the bedside. Chart has been reviewed. She remains with a sitter due to suicidal ideation. This morning, she denies dizziness or lightheadedness. She has been given a total of 1.4 liters of fluids yesterday. Output of 900. Denies any chest pain or shortness of breath. According to nursing, patient was sedated yesterday after receiving her home dose of Methadone 140 mg. This morning, patient said that it was because she was not rested well. She otherwise denies any recurrent suicidal or homicidal ideation. She has been evaluated by psychiatrist, Dr. Schmid, and patient has volunteered to come into the inpatient mental health unit. OBJECTIVE: VITALS: Temperature 96.8, pulse 62, respiratory rate 18, blood pressure 118/68, 94% on room air. GENERAL: Patient is awake, alert and oriented x3, answering questions appropriately. NECK: No JVD. No thyromegaly. No cervical lymphadenopathy. LUNGS: Clear to auscultation. No wheezing, rales or rhonchi. HEART: S1, S2, sinus rhythm. ABDOMEN: Obese, soft, nontender, non-distended. EXTREMITIES: No cyanosis, clubbing or any pitting edema. LABORATORY DATA: From 12/06/2019, white count 4.6, hemoglobin 12.4, hematocrit 37, platelet count 117,000. Previous platelet count of 154,000. From 12/07/2019, sodium 145, potassium 4, chloride 110, bicarb 30, BUN 12, creatinine 1.5, glucose 85. TSH 187. IMAGING STUDIES: Renal ultrasound showed no hydronephrosis, normal renal size bilaterally. ASSESSMENT: This 39-year-old with history of severe depression, suicidal ideation, admitted for suicidal ideation and wrist cutting, found to be medically noncompliant with her medications with severe hypothyroidism. Current issues are acute on chronic kidney disease, medical noncompliance with medications, symptomatic hypothyroidism, severe depression, hypotension secondary to hypothyroidism, suicidal ideation with wrist cutting, polysubstance abuse with opiate and alcohol abuse, on chronic methadone, macrocytosis, hypertension due to Propranolol. PLAN: Patient is currently stable; status post I.V. fluids, had been given Midodrine. Discontinue Midodrine and Propranolol. If stable blood pressure throughout the day, maybe discharged to inpatient mental health unit still on suicide one-to-one sitter. Continue on Synthroid and Methadone, to be decreased. MTDD
--- NOTE | 2020-01-02 16:14 | DSES ---
DATE OF ADMISSION: 12/05/2019 DATE OF DISCHARGE: 12/07/2019 Patient is discharged to inpatient psychiatric unit, accepting physician Dr. Schmid. REASON FOR TRANSFER TO INPATIENT MENTAL HEALTH UNIT: Severe depression, risk of cutting. DISCHARGE DIAGNOSES: 1. Acute on chronic kidney disease, stage III. 2. Medical noncompliance with Synthroid. 3. Severe symptomatic hypothyroidism. 4. Severe depression. 5. Hypotension due to propranolol and hypothyroidism. 6. Suicidal ideation with risk of cutting. 7. Polysubstance abuse with opiate and alcohol abuse, on chronic methadone. 8. Macrocytosis. DISCHARGE MEDICATIONS: - methadone 140 mg daily - Synthroid 200 mcg daily - Tylenol 1 gram by mouth three times a day as needed - bupropion 150 daily - Lexapro 10 daily and 20 daily - gabapentin 800 three times a day - Seroquel 25 twice a day - Seroquel 150 every night - trazodone 150 every night Due to renal failure, patient's ibuprofen has been discontinued. HOSPITAL COURSE: This is a 39-year-old female who presented to the emergency room with medical noncompliance. Had not taken her Synthroid for over a week with suicidal ideation, feelings of depression, and left wrist cutting. Patient has history of chronic kidney disease, baseline creatinine of 1.3-1.5. Found to have creatinine of 1.89 and admitted medically. Patient's Synthroid was increased to 200 mcg daily as well as intravenous (IV) fluids given for hypotension. Propranolol was discontinued. Creatinine improved to baseline of 1.4-1.5 with IV fluid hydration. Sitter was placed due to wrist cutting and suicidal ideation. Bacitracin ointment was applied to the left wrist. No signs of cellulitis. She improved with IV fluids with baseline creatinine. She was resumed back on her home dose of methadone 140 daily with subsequent sedation. This was cut back down to [address] Schmid, patient volunteered to come to the inpatient mental health unit for history of depression. She is discharged in stable condition. PHYSICAL EXAMINATION ON DISCHARGE: Temperature 96.8, pulse 55, respiratory rate 18, blood pressure 110/59, 84% on room air. GENERAL: Awake, alert, oriented to person, place, and time. Anicteric, Obese. No jaundice. Moist mucous membranes. LUNGS: Clear to auscultation. No wheezing or rales. HEART: S1, S2, sinus rhythm. ABDOMEN: Obese, soft, nontender, nondistended. EXTREMITIES: No cyanosis, clubbing, or pitting edema. LABORATORY DATA: White count 4.6, hemoglobin 12, hematocrit 37, platelet count 117. Sodium 145, potassium 4.1, chloride 110, bicarbonate 30, BUN 12, creatinine 1.5, glucose 85. Chest x-ray pending. Renal ultrasound: Normal renal size bilaterally. No hydronephrosis. No acute findings. TIME SPENT ON DISCHARGE: 30 minutes. [facility]
--- NOTE | 2020-01-03 13:17 | REP ---
PORTABLE CHEST HISTORY: Hypotension. FINDINGS: Single AP view of the chest was performed and compared to prior study of 01/25/2019. Once again, there is patchy infiltrate in the right lung base. This does not appear as extensive as on the prior study. Left lung appears clear. Heart does not appear to be enlarged, and the mediastinal silhouette is unchanged. IMPRESSION: Mild right basilar infiltrate/atelectasis. MTDD
== END 2019-12-07 16:15 ==
LOC: M ED 11:36 → M ED INP 11:37 → ENRESERV 23:51 → M PCU 12-06 01:29
PROVIDERS: ADMIT Internal Medicine; ATTEND Internal Medicine
DX: R45.851 Suicidal ideations (principal); E03.9 Hypothyroidism, unspecified; F33.1 Major depressive disorder, recurrent, moderate; F41.9 Anxiety disorder, unspecified; F17.218 Nicotine dependence, cigarettes, with other nicotine-induced disorders; F19.20 Other psychoactive substance dependence, uncomplicated; N28.9 Disorder of kidney and ureter, unspecified; D75.89 Other specified diseases of blood and blood-forming organs; Z91.19 Patient's noncompliance with other medical treatment and regimen; Z79.899 Other long term (current) drug therapy; Z79.891 Long term (current) use of opiate analgesic; X78.9XXA Intentional self-harm by unspecified sharp object, initial encounter; Y99.9 Unspecified external cause status
CPT/HCPCS: 36415; 71045; 76775; 80048; 80076; 80307; 84439; 84443; 84703; 85027; 96360; 96361; 99285; G0480

== ENCOUNTER 2019-12-07 11:25 | Inpatient (IN) | payer OTHER ==
[~2019-12-07] VITALS: Ht 160 cm; Wt 108.0 kg
[~2019-12-07 11:25] MED LIST changes: +LEVO150T42 PO; +SERO150T2 PO
[2019-12-07] MEDS ORDERED: LEVO100T5 PO (12:21)
[2019-12-07] MEDS ORDERED: MOM 30ML SUSPENSION UDC PO PRN (15:15)
[2019-12-07] MEDS ORDERED: MAALOX 30 ML SUSP *UDC PO PRN (15:15)
[2019-12-07] MEDS ORDERED: traZODone 50 MG TAB PO PRN (15:15)
[2019-12-07 16:24] VITALS: BP 109/58
[2019-12-07] MEDS: QUEtiapine FUMARATE 100 MG TAB PO SCH (20:21)
[2019-12-08 06:55] VITALS: BP 132/82
[2019-12-08] MEDS: ESCITALOPRAM OXALATE 10 MG TAB (LEXAPRO) PO SCH (10:01)
[2019-12-08] MEDS: METHADONE 10 MG TAB (S0109) PO SCH (10:02)
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
[2019-12-08] MEDS: QUEtiapine FUMARATE 25 MG TAB PO SCH ×2 (13:52→21:11)
[2019-12-08] MEDS: buPROPion **XL** TABLET 150MG (WELLBUTRIN XL) PO SCH (13:52)
[2019-12-08] MEDS: NICOTINE POLACRILEX 2 MG GUM PO PRN ×2 (14:29→17:48)
[2019-12-08] MEDS: GABAPENTIN 300 MG CAP PO SCH ×2 (15:58→21:11)
[2019-12-08 16:51] VITALS: BP 131/85
[2019-12-08] MEDS: traZODone 100 MG TAB PO SCH (21:11)
[2019-12-08] MEDS: QUEtiapine FUMARATE 100 MG TAB PO SCH (21:11)
--- NOTE | 2019-12-08 23:32 | HPEPDOC ---
[facility] Medical History & Physical Date of Admission Dec 08, 2019 Date of Service: Dec 08, 2019 History and Physical CHIEF COMPLAINT: suicidal ideation HISTORY OF PRESENT ILLNESS: 39-year-old female with history of pulmonary and renal sarcoidosis and hypothyroidism presented for concerns of suicidal ideation. In regards to her hypothyroidism, patient was recently discharged on increased dose of levothyroxine. Reviewed recent labs. Patient reported taking prednisone 20 mg daily forMary and renal sarcoidosis. She claims Dr. Hurst is an outpatient sample wrapper and prescribed her prednisone. No concerns on review of systems time. PAST MEDICAL HISTORY: pulmonary and renal sarcoidosis hypothyroidism PAST SURGICAL HISTORY: no recent SOCIAL HISTORY: denied current tobacco, alcohol, recreational drug use FAMILY HISTORY: history of coronary artery disease and hyperlipidemia. Overall noncontributory ALLERGIES: Please see below. REVIEW OF SYSTEMS: [10 point review of systems complete, all negative otherwise stated in HPI] Constitutional: Denies weight loss, change in appetite, or recent trauma Eyes: No visual changes or eye pain Ears, Nose, Throat: Denies nose bleeds, or difficulty swallowing Cardiovascular: Denies chest pain, sweating, or orthopnea Respiratory: Denies cough, wheezing, or shortness of breath GI: Avery nausea, vomiting, abdominal pain, diarrhea or constipation : Denies pain with urination or frequency Musculoskeletal: Denies joint pain or swelling Neuro / Psych: Denies muscle weakness or sensory loss Skin: No skin rashes noted All other review of systems negative; otherwise stated in history of present illness HOME MEDICATIONS: Please see below. PHYSICAL EXAMINATION: vital signs as below General: Pleasant, NAD HEENT: NC, AT. EOMI, no scleral icterus. No pharyngeal erythema, mucous membranes moist. Neck: No lymphadenopathy or JVD CV: RRR, Normal S1 and S2. No murmurs, gallops, or rubs. Resp: CTAB with full breath sounds. No wheezes, crackles, or rhonchi. No dullness to percussion. Abdomen: Bowel sounds present. Soft, NT, ND. Extremities: No swelling or edema. LABORATORY DATA: See below. IMAGING: see below MICROBIOLOGY: Please see below. ASSESSMENT and plan 1. Hypothyroidism Verified recent discharged dose of levothyroxine: continued regimen. Recommend TSH and T4 check outpatient in about four weeks for further titration 2. history of sarcoidosis-pulmonary and renal moment for patient -call Dr. Hurst's office and reviewed patient's chart with clinic nurse. Patient has not been seen at the facility for about a year. She was fired from their practice for lack of follow-up. A proximally one year ago she was placed on prednisone 20 mg oral LT produce for sarcoidosis. It appears patient has not been on this medication for almost a year. I will not recommend starting prednisone at this time without any sense of sarcoidosis to burden. If further input is needed, recommend consulting pulmonary for disease and goal directed therapy. Vital Signs Vital Signs Date Time Temp Pulse Resp B/P (MAP) Pulse Ox O2 Delivery O2 Flow Rate FiO2 12/08/19 16:51 98.1 58 16 131/85 (100) 97 Room Air Home Medications Scheduled Bupropion Hcl (Bupropion Xl) 150 Mg Tab.er.24h, 150 MG PO DAILY Escitalopram Oxalate (Lexapro) 10 Mg Tablet, 10 MG PO DAILY 30 MG TOTAL DAILY Escitalopram Oxalate (Lexapro) 20 Mg Tablet, 20 MG PO DAILY TAKES 30 MG TOTAL DAILY Gabapentin (Gabapentin) 800 Mg Tablet, 800 MG PO TID Levothyroxine Sodium (Levothyroxine Sodium) 100 Mcg Tablet, 200 MCG PO DAILY@0600 Methadone HCl (Methadone HCl) 10 Mg/1 Ml Oral.conc, 140 MG PO DAILY Quetiapine Fumarate (Quetiapine Fumarate) 25 Mg Tablet, 25 MG PO BID TAKES IN MORNING AND AT DINNER TIME Quetiapine Fumarate (Seroquel Xr) 150 Mg Tab.er.24h, 150 MG PO QHS Trazodone HCl (Trazodone HCl) 150 Mg Tablet, 150 MG PO QHS Scheduled PRN Acetaminophen (Tylenol Extra Strength) 500 Mg Tablet, 1,000 MG PO TID PRN for PAIN Allergies Coded Allergies: No Known Allergies (Verified , 10/22/18) A-FIB/CHADSVASC A-FIB History Current/History of A-Fib/PAF?: No Current PO Anticoag Therapy: No ROB REYES DO Dec 08, 2019 23:32
[2019-12-09 06:35] VITALS: BP 117/56
[2019-12-09] MEDS: LEVOTHYROXINE 100MCG TABLET (0.1MG) PO SCH (06:36)
[2019-12-09] MEDS: GABAPENTIN 300 MG CAP PO SCH ×3 (08:20→21:19)
[2019-12-09] MEDS: buPROPion **XL** TABLET 150MG (WELLBUTRIN XL) PO SCH (08:20)
[2019-12-09] MEDS: QUEtiapine FUMARATE 25 MG TAB PO SCH ×2 (08:20→17:14)
[2019-12-09] MEDS: ESCITALOPRAM OXALATE 10 MG TAB (LEXAPRO) PO SCH (08:20)
[2019-12-09] MEDS: METHADONE 10 MG TAB (S0109) PO SCH (08:29)
[2019-12-09] MEDS ORDERED: buPROPion **XL** TABLET 150MG (WELLBUTRIN XL) PO SCH (09:00)
--- NOTE | 2019-12-09 09:05 | MHIPNPDOC ---
[facility] Progress Note Progress Note DATE OF SERVICE: 12/09/19 HISTORY: Patient is a 39 year old female who self-presented to the ED with reports of suicidal ideation. She initially was admitted to medicine for thyroid and renal issues. She was admitted on a 9.39 to [facility] for her original complaint of suicidality VITAL SIGNS: See below. NEW TEST RESULTS: . CURRENT MEDICATIONS: See below. MENTAL STATUS EXAMINATION: Patient is a 39-year old female, who is reporting continued depression and anxiety and fleeting suicidal ideation. Patient has a long polysubstance and psychiatric history and is initially very focused on medication for anxiety. Reviewed with her that she has medication and that positive coping skills will benefit her far better than another anxiolytic. Speech: Is normal rate tone and volume. 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 Thought content: Depression and anxiety. Abstract reasoning, and computation: good. Description of associations: Denies Description of abnormal or psychotic thoughts: Denies Judgment: Fair Insight: Fair Orientation: Alert and oriented Recent and remote memory: Intact Attention span and concentration: Good Language: Good Fund of knowledge: Below average Mood: Depressed. Affect: Tearful, sad DIAGNOSES: 1. Major Depressive Disorder, Recurrent, Moderate 2. Anxiety Disorder 3. PTSD 4. Tobacco Use disorder ASSESSMENT: Patient very focused on reaction with medication RN. She states that she has poor supports at home. Feels that she is frustration. Crying and tearful in the interview. Rates her depression 7/10, Anxiety 9/10 and has fleeting suicidal thoughts. Thinks about "how she could do it, so that it wouldn't hurt" States that at times she plans out how she could do it without failing. "I don't have a lot of control in my life" She complains of her hospice case manager, stated to her that she was "going to slit her wrist." and feels that people "blow me off" Reports that her 16-year old ran away from her father who has primary and residential custody but patient is trying to reestablish custody. This is an ongoing stressor for her. She feels that if she has custody of her eldest, this will lead the way for her 2younger daughters. She is upset that she has not communication with her children. She feels that they don't know that they are loved by her. Encouraged patient to find ways to communicate her feelings with her daughters. She states she will write letters and find ways to help her with coping with the loss of not seeing them. Reviewed ways that she can stretch her budget with couponing and buying foods that are sd. Encouraged patient to consider coping that is positive, exchanging her activities with positive skills versus asking for medications for short term relief. MANAGEMENT PLAN: Patient is not stable for discharge at this time. We will review possible discharge on Thursday or Thursday TIME SPENT: 30 minutes. Vital Signs Vital Signs Date Time Temp Pulse Resp B/P (MAP) Pulse Ox O2 Delivery O2 Flow Rate FiO2 12/09/19 06:35 96.8 59 14 117/56 (76) 94 Room Air Laboratory Data 24H Labs Patient will be discharged when she is stable/. She states she would like to return to her mother's house. Current Medications Current Medications Medications (Trade) Dose Ordered Sig/Mercedez Route PRN Reason Start Time Stop Time Status Last Admin Dose Admin Acetaminophen (Tylenol Tab) 650 mg Q6HP PRN PO HEADACHE or DISCOMFORT 12/07/19 15:15 Al Hydrox/Mg Hydrox/Simethicone (Mylanta) 30 ml Q4HP PRN PO HEARTBURN/INDIGESTION 12/07/19 15:15 Bupropion HCl (Wellbutrin Xl) 150 mg QAM PO 12/08/19 09:00 12/09/19 08:20 Bupropion HCl (Wellbutrin Xl) 150 mg QAM PO 12/09/19 09:00 12/08/19 13:31 DC Escitalopram Oxalate (Lexapro) 20 mg DAILY PO 12/08/19 09:00 12/09/19 08:20 Gabapentin (Neurontin) 600 mg TID PO 12/08/19 16:00 12/09/19 08:20 Home Med (Med Rec Complete!) ASDIRECTED XX 12/07/19 17:30 12/07/19 17:24 DC Levothyroxine Sodium (Synthroid) 200 mcg DAILY@0600 PO 12/09/19 06:00 12/09/19 06:36 Magnesium Hydroxide (Milk Of Magnesia) 30 ml DAILYPRN PRN PO CONSTIPATION 12/07/19 15:15 Methadone HCl (Dolophine) 140 mg DAILY PO 12/08/19 09:00 12/09/19 08:29 Nicotine (Nicorette) 2 mg Q2HP PRN PO SMOKING CESSATION 12/08/19 13:15 12/08/19 17:48 Quetiapine Fumarate (SEROquel) 25 mg BID PO 12/08/19 09:00 12/09/19 08:20 Quetiapine Fumarate (SEROquel) 100 mg QHS PO 12/07/19 21:00 12/08/19 21:11 Trazodone HCl (Desyrel) 50 mg QHSP PRN PO INSOMNIA 12/07/19 15:15 12/08/19 13:22 DC 12/07/19 20:22 Trazodone HCl (Desyrel) 100 mg QHS PO 12/08/19 21:00 12/08/19 21:11 Allergies Coded Allergies: No Known Allergies (Verified , 10/22/18) BIPIN TIRADO NP Dec 09, 2019 09:05
[2019-12-09] MEDS: NICOTINE POLACRILEX 2 MG GUM PO PRN ×2 (09:58→14:46)
[2019-12-09 19:18] VITALS: BP 115/81
[2019-12-09] MEDS: traZODone 100 MG TAB PO SCH (21:19)
[2019-12-09] MEDS: QUEtiapine FUMARATE 100 MG TAB PO SCH (21:19)
[2019-12-10] MEDS: LEVOTHYROXINE 100MCG TABLET (0.1MG) PO SCH (05:48)
[2019-12-10 06:27] VITALS: BP 116/70
[2019-12-10] MEDS: ESCITALOPRAM OXALATE 10 MG TAB (LEXAPRO) PO SCH (09:31)
[2019-12-10] MEDS: buPROPion **XL** TABLET 150MG (WELLBUTRIN XL) PO SCH (09:31)
[2019-12-10] MEDS: QUEtiapine FUMARATE 25 MG TAB PO SCH ×2 (09:32→17:57)
[2019-12-10] MEDS: GABAPENTIN 300 MG CAP PO SCH ×3 (09:32→20:12)
[2019-12-10] MEDS: METHADONE 10 MG TAB (S0109) PO SCH (09:32)
[2019-12-10] MEDS: NICOTINE POLACRILEX 2 MG GUM PO PRN (10:28)
[2019-12-10] MEDS: ACETAMINOPHEN TAB 650MG DOSE (2X325MG) PO PRN ×2 (10:28→17:57)
[2019-12-10] MEDS ORDERED: NICOTINE 21MG/24HR 1 EA TRANSDERMAL TD ONE (13:00)
[2019-12-10] MEDS ORDERED: IBUPROFEN 400 MG TAB PO ONE (13:00)
--- NOTE | 2019-12-10 20:10 | REPVR ---
PROCEDURE INFORMATION: Exam: XR Left Ankle Exam date and time: 12/10/2019 8:00 PM Age: 39 years old Clinical indication: Other: 12/10/2019 TECHNIQUE: Imaging protocol: XR Left ankle. Views: 3 or more views. COMPARISON: CR Ankle, complete 08/14/2019 8:37 PM FINDINGS: Bones/joints: There is a fracture of the medial malleolus with the fragment measuring approximately 1 cm and unchanged in position. There is no evidence of bony union of this fracture fragment, however, there could be fibrous union. The talar dome appears smooth. There is osteophyte formation along the anterior surface of the navicular. Soft tissues: There is decrease in amount of soft tissue swelling since August. There is a healing fracture of the posterior malleolus with thick callus. A plaster cast is in place. IMPRESSION: 1. 1 cm avulsion fracture of the medial malleolus with no evidence of bony union, however, there could be fibrous union. 2. Healing fracture of the posterior malleolus with thick callus. Electronically signed by: Sim Antunez On 12/10/2019 20:10:43 PM
[2019-12-10] MEDS: traZODone 100 MG TAB PO SCH (20:12)
[2019-12-10] MEDS: QUEtiapine FUMARATE 100 MG TAB PO SCH (20:12)
[2019-12-11] MEDS: LEVOTHYROXINE 100MCG TABLET (0.1MG) PO SCH (05:56)
[2019-12-11 06:42] VITALS: BP 144/78
[2019-12-11] MEDS: QUEtiapine FUMARATE 25 MG TAB PO SCH ×2 (09:02→18:03)
[2019-12-11] MEDS: buPROPion **XL** TABLET 150MG (WELLBUTRIN XL) PO SCH (09:04)
[2019-12-11] MEDS: NICOTINE 21MG/24HR 1 EA TRANSDERMAL TD SCH (09:04)
[2019-12-11] MEDS: ESCITALOPRAM OXALATE 10 MG TAB (LEXAPRO) PO SCH (09:05)
[2019-12-11] MEDS: METHADONE 10 MG TAB (S0109) PO SCH (09:05)
[2019-12-11] MEDS: GABAPENTIN 300 MG CAP PO SCH ×3 (09:05→20:14)
[2019-12-11] MEDS: ACETAMINOPHEN TAB 650MG DOSE (2X325MG) PO PRN (15:30)
--- NOTE | 2019-12-11 16:20 | MHIPN ---
DATE: 12/10/2019 VITAL SIGNS: Blood pressure 116/73, pulse 58, temperature 96.9. CHIEF COMPLAINT: Says feels stressed. OBJECTIVE: Seen for follow-up, in the presence of staff, says feels stressed, but overall better, though does have suicidal thoughts, but says does not plan to act on any, and no sudden plans. Says has had difficulties with her teeth, requests Motrin. MENTAL STATUS EXAMINATION: She is neat, cooperative. No agitation. No psychomotor retardation. Coherent. Affect is restricted but reactive. She has suicidal thoughts, no sudden plans. No evidence of any psychosis as such. Judgment, insight compromised. ASSESSMENT: 1. Major depressive disorder recurrent moderate. 2. Post traumatic stress disorder. 3. Anxiety. 4. Has questionable judgment and insight, has suicidal thoughts. PLAN: Continue current care, observations, and will continue with the current medication regimen, including the Lexapro, the Seroquel. Will hesitate in prescribing Motrin for now, but will monitor. Further recommendations will be made depending on the clinical picture. HILARIO
[2019-12-11] MEDS ORDERED: ACETAMINOPHEN TAB 650MG DOSE (2X325MG) PO PRN (17:30)
[2019-12-11 18:47] VITALS: BP 116/67
[2019-12-11] MEDS: QUEtiapine FUMARATE 100 MG TAB PO SCH (20:13)
[2019-12-11] MEDS: traZODone 100 MG TAB PO SCH (20:13)
[2019-12-12] MEDS: LEVOTHYROXINE 100MCG TABLET (0.1MG) PO SCH (06:23)
[2019-12-12 06:33] VITALS: BP 152/80
[2019-12-12] MEDS: NICOTINE 21MG/24HR 1 EA TRANSDERMAL TD SCH (08:16)
[2019-12-12] MEDS: METHADONE 10 MG TAB (S0109) PO SCH (08:16)
[2019-12-12] MEDS: GABAPENTIN 300 MG CAP PO SCH ×3 (08:17→21:40)
[2019-12-12] MEDS: buPROPion **XL** TABLET 150MG (WELLBUTRIN XL) PO SCH (08:17)
[2019-12-12] MEDS: ESCITALOPRAM OXALATE 10 MG TAB (LEXAPRO) PO SCH (08:17)
[2019-12-12] MEDS: QUEtiapine FUMARATE 25 MG TAB PO SCH ×2 (08:17→18:04)
--- NOTE | 2019-12-12 09:21 | CR ---
This is for the hospitalist service and the mental health unit. ATTENDING PHYSICIAN: Franklin Ferris M.D. DATE OF CONSULTATION: 12/11/2019. CHIEF COMPLAINT: Ankle fracture and cast breakdown. HISTORY OF PRESENT ILLNESS: This is a 39-year-old female, patient actually was seen originally in our office and the first date of service was 08/23/2019, original injury date was 07/15/2019. This was patient who essentially did not follow-up with any of her follow-up appointments. She ultimately did have a CT scan a month and a half after it was ordered. She then never followed up again after that. She was placed into a short leg cast. She was supposed to be partial weightbearing, but unfortunately she has not been compliant at all with those instructions and today there is no foot portion on the cast whatsoever. She tells me she has been walking on it. She denies any ankle pain. Denies any new injuries to that ankle. She denies any calf pain. Denies numbness, tingling down into the toes, and no pain in that ankle joint. PAST MEDICAL HISTORY: Includes pulmonary and renal sarcoidosis, hypothyroidism, suicidal ideation. PAST SURGICAL HISTORY: None that the patient can relate to. FAMILY HISTORY: Coronary artery disease, hyperlipidemia. SOCIAL HISTORY: She denies using alcohol or tobacco or recent drug use, though the cast completely smells like a cigarette today. ALLERGIES: No known drug allergies. CURRENT MEDICATIONS: 1. Bupropion 150 mg one tablet daily. 2. Lexapro 20 mg one tablet daily. 3. Gabapentin 800 mg t.i.d. 4. Levothyroxine 100 mcg two tablets daily. 5. Methadone 140 mg daily. 6. Quetiapine 25 mg b.i.d. 7. Seroquel 150 mg one tablet at bedtime. 8. Trazodone 150 mg at bedtime. REVIEW OF SYSTEMS: Per the HPI. Also, she denies any current chest pain. Denies any shortness of breath. Denies difficulty breathing. Denies recent exposure to COVID and denies any respiratory symptoms. Denies any orthopedic complaints at this juncture. PHYSICAL EXAMINATION: Today reveals an alert female patient, ambulates in a cast without the foot portion. She does not favor either side. She has a flat mood and affect. There is a symmetrical rise of bilateral chest on labored breathing. Abdomen is not distended. Exam of the left lower extremity reveals a cast where the foot portion has been removed. After discussing with the patient, we did remove the remaining portion of the cast, that was well tolerated, but exam of the ankle reveals no bony tenderness and brisk cap refill of the toes. Dorsalis pedis and posterior tib pulses are palpable. Interestingly full range of motion of the ankle without instability. No proximal fibular tenderness. Good knee range of motion on the left side. No irritability with hip range of motion on the left side. IMAGING STUDIES: X-rays were reviewed of what was remaining on the cast, three views AP and lateral and mortis notable for a robust healing of the posterior malleolus fracture. There is most likely a fibrous union of the medial malleolus avulsion fracture. The mortise site today measures 2.8 mm. PLAN: I had a long discussion about the patient. At this point, the injury is dating back to August. She essentially had a cast on since her last visit in our office in September. She has been weightbearing as tolerated, obviously completely noncompliant with the recommended instructions. We discussed that she is likely going to be a candidate for posttraumatic arthritis. I explained to her, at this point, she has no pain, she has all her motion back. At this point, we could release her to full activities, activities as tolerated for the medial malleolus with no further treatment required. It is likely a fibrous union. She is not interested in any physical therapy at this point. We can see her on a p.r.n. basis from an orthopedic standpoint. She can be cleared for discharge, but obviously she has other issues going on, so will defer that to her primary team. She should not remain in the facility for any orthopedic conditions at this point. She requires no further follow-up through our office. Thank you for this pleasant consult. HILAROI
[2019-12-12] MEDS: ACETAMINOPHEN 500 MG TAB PO PRN ×2 (10:44→21:41)
[2019-12-12 17:54] VITALS: BP 102/59
[2019-12-12] MEDS: traZODone 100 MG TAB PO SCH (21:40)
[2019-12-12] MEDS: QUEtiapine FUMARATE 100 MG TAB PO SCH (21:40)
[2019-12-13] MEDS: LEVOTHYROXINE 100MCG TABLET (0.1MG) PO SCH (05:18)
[2019-12-13 06:22] VITALS: BP 118/63
[2019-12-13] MEDS: QUEtiapine FUMARATE 25 MG TAB PO SCH ×2 (08:00→17:03)
[2019-12-13] MEDS: buPROPion **XL** TABLET 150MG (WELLBUTRIN XL) PO SCH (09:00)
[2019-12-13] MEDS: NICOTINE 21MG/24HR 1 EA TRANSDERMAL TD SCH (09:00)
[2019-12-13] MEDS: GABAPENTIN 300 MG CAP PO SCH ×3 (09:00→20:10)
[2019-12-13] MEDS: METHADONE 10 MG TAB (S0109) PO SCH (09:00)
[2019-12-13] MEDS: ESCITALOPRAM OXALATE 10 MG TAB (LEXAPRO) PO SCH (09:00)
[2019-12-13] MEDS: ACETAMINOPHEN 500 MG TAB PO PRN (10:14)
--- NOTE | 2019-12-13 11:37 | MHIPNPDOC ---
[facility] Progress Note Progress Note DATE OF SERVICE: 12/13/19 HISTORY: Patient is a 39 year old Single, Disabled, Domiciled Female who self-presented to the hospital with complaints of suicidal ideation and depr ession. She was initially admitted to medical for thyroid and renal issues and then directly admitted to [facility] for her original complaints. She had reported an increase in depression and anxiety with suicidal ideation due to her daughter running away from home. This daughter who is 16 year old does not live with the patient. Patient reports that prior to her daughter leaving she had been doing well with her medication regimen. VITAL SIGNS: See below. NEW TEST RESULTS: CURRENT MEDICATIONS: See below. MENTAL STATUS EXAMINATION: Patient is a 39-year old female, who is reporting continued depression and anxiety. She appears her stated age, she is overweight and is observed to be drowsy in the interview. Her hygiene and grooming is fair. Her eye contact is intermittent. She has her eyes closed most of the time during the interview Speech: Is normal rate, tone and volume Language skills are Fair Thought processes including: Linear and goal oriented Thought content: Reporting severe depression and anxiety, although not observed to be very depression and/or anxious. She denies suicidal/homicidal ideation Abstract reasoning, and computation: fair Description of associations: mildly agitated and focused on an interaction with a peer's sitter having treated her "poorly and she embarrassed me" Description of abnormal or psychotic thoughts: Negative Judgment: Fair Insight: Fair Orientation: Alert and oriented Recent and remote memory: Intact Attention span and concentration: fair Language: \\Slovak/good Fund of knowledge: Below average Mood: depressed. Affect: flat DIAGNOSES: 1. Unspecified Depressive Disorder 2. Anxiety Disorder ASSESSMENT: Patient reports feeling agitated due to other peers. She states she does not know how to avoid them. "Some people are getting on my nerves" Reports not sleeping well. Siting in the [place]nerview with her eyes closed. Depression rating 9/10, Anxiety 10/10. She reports that not having her propranolol that she is feeling anxious. MANAGEMENT PLAN: Patient will be discharged in 3-5 days. Patient is reporting not stable for discharge today but is feeling that Thursday will be appropriate. Due to her complaints of anxiety, Buspar 5 mg twice daily is initiated today. TIME SPENT: 20 minutes. Vital Signs Vital Signs Date Time Temp Pulse Resp B/P (MAP) Pulse Ox O2 Delivery O2 Flow Rate FiO2 12/13/19 09:48 Room Air 12/13/19 06:22 98.6 69 14 118/63 (81) 98 Laboratory Data 24H Labs Laboratory Tests 2 12/13/19 11:02: Current Medications Current Medications Medications (Trade) Dose Ordered Sig/Mercedez Route PRN Reason Start Time Stop Time Status Last Admin Dose Admin Acetaminophen (Tylenol Tab) 650 mg Q6HP PRN PO HEADACHE or DISCOMFORT 12/07/19 15:15 12/11/19 17:18 DC 12/11/19 15:30 Acetaminophen (Tylenol Tab) 1,000 mg Q8HP PRN PO HEADACHE or DISCOMFORT 12/11/19 17:30 12/12/19 06:35 DC Acetaminophen (Tylenol Tab) 1,000 mg Q8HP PRN PO HEADACHE or DISCOMFORT 12/12/19 06:30 12/13/19 10:14 Al Hydrox/Mg Hydrox/Simethicone (Mylanta) 30 ml Q4HP PRN PO HEARTBURN/INDIGESTION 12/07/19 15:15 Bupropion HCl (Wellbutrin Xl) 150 mg QAM PO 12/08/19 09:00 12/13/19 09:00 Bupropion HCl (Wellbutrin Xl) 150 mg QAM PO 12/09/19 09:00 12/08/19 13:31 DC Escitalopram Oxalate (Lexapro) 20 mg DAILY PO 12/08/19 09:00 12/13/19 09:00 Gabapentin (Neurontin) 600 mg TID PO 12/08/19 16:00 12/13/19 09:00 Home Med (Med Rec Complete!) ASDIRECTED XX 12/07/19 17:30 12/07/19 17:24 DC Levothyroxine Sodium (Synthroid) 200 mcg DAILY@0600 PO 12/09/19 06:00 12/13/19 05:18 Magnesium Hydroxide (Milk Of Magnesia) 30 ml DAILYPRN PRN PO CONSTIPATION 12/07/19 15:15 Methadone HCl (Dolophine) 140 mg DAILY PO 12/08/19 09:00 12/13/19 09:00 Nicotine (Nicoderm Cq 21mg) 1 patch DAILY TD 12/11/19 09:00 12/13/19 09:00 Nicotine (Nicorette) 2 mg Q2HP PRN PO SMOKING CESSATION 12/08/19 13:15 12/10/19 12:53 DC 12/10/19 10:28 Quetiapine Fumarate (SEROquel) 25 mg BID PO 12/08/19 09:00 12/09/19 14:33 DC 12/09/19 08:20 Quetiapine Fumarate (SEROquel) 25 mg BID@0800,1800 PO 12/09/19 18:00 12/13/19 08:00 Quetiapine Fumarate (SEROquel) 100 mg QHS PO 12/07/19 21:00 12/12/19 21:40 Trazodone HCl (Desyrel) 50 mg QHSP PRN PO INSOMNIA 12/07/19 15:15 12/08/19 13:22 DC 12/07/19 20:22 Trazodone HCl (Desyrel) 100 mg QHS PO 12/08/19 21:00 12/12/19 21:40 Allergies Coded Allergies: No Known Allergies (Verified , 10/22/18) BIPIN TIRADO NP Dec 13, 2019 11:37
[2019-12-13 12:12] LABS: THYROID STIMULATING HORMONE 41.7 uIU/ML (0.358-3.740); THYROXINE (T4) 9.3 UG/DL (4.5-12.0)
--- NOTE | 2019-12-13 12:22 | MHIPN ---
DATE: 12/11/2019 VITAL SIGNS: Blood pressure 144/78, pulse 59, temperature 96.3. CHIEF COMPLAINT: Says feels depressed. OBJECTIVE: Seen for follow-up, indicates feels depressed, but as intensely, feels less anxious overall. Says jaw pain is better. MENTAL STATUS EXAMINATION: She is neat, cooperative. No agitation. No psychomotor retardation. Coherent. Affect is reactive. She is vague on suicidal thoughts, no sudden plans. No evidence of any psychosis. Cognition grossly intact. Judgment is fair, remains compromised as is insight. ASSESSMENT: 1. Post traumatic stress disorder by history. 2. Major depressive disorder. PLAN: Continue current care, observations, encourage participation in activities in the unit. Further recommendations will be made depending on her clinical picture, she will be seen by the assigned clinician tomorrow. HILARIO
[2019-12-13] MEDS: busPIRone 5 MG TAB PO SCH ×2 (16:30→20:10)
[2019-12-13 18:00] VITALS: BP 118/75
[2019-12-13] MEDS: traZODone 100 MG TAB PO SCH (20:10)
[2019-12-13] MEDS: QUEtiapine FUMARATE 100 MG TAB PO SCH (20:10)
[2019-12-14] MEDS: LEVOTHYROXINE 100MCG TABLET (0.1MG) PO SCH (06:14)
[2019-12-14 06:28] VITALS: BP 132/64
[2019-12-14] MEDS: QUEtiapine FUMARATE 25 MG TAB PO SCH ×2 (08:47→17:08)
[2019-12-14] MEDS: ESCITALOPRAM OXALATE 10 MG TAB (LEXAPRO) PO SCH (08:47)
[2019-12-14] MEDS: METHADONE 10 MG TAB (S0109) PO SCH (08:47)
[2019-12-14] MEDS: buPROPion **XL** TABLET 150MG (WELLBUTRIN XL) PO SCH (08:47)
[2019-12-14] MEDS: GABAPENTIN 300 MG CAP PO SCH ×3 (08:47→20:04)
[2019-12-14] MEDS: busPIRone 5 MG TAB PO SCH ×2 (08:47→20:04)
[2019-12-14] MEDS: NICOTINE 21MG/24HR 1 EA TRANSDERMAL TD SCH (08:48)
--- NOTE | 2019-12-14 10:42 | MHIPNPDOC ---
[facility] Progress Note Progress Note DATE OF SERVICE: 12/14/19 HISTORY: Patient is a 39 year old Female with history of depression, polysubstance abuse in the past, she was directly admitted to [facility] after being on medical for thyroid and renal issues. Patient had initially self-present to the ED with depression and suicidal ideation. VITAL SIGNS: See below. NEW TEST RESULTS: CURRENT MEDICATIONS: See below. MENTAL STATUS EXAMINATION: Patient is a 39-year old female, who is who was admitted to [facility] after reporting depression and suicidal ideation. She appears her stated age. Her hygiene and grooming is good, she makes good eye contact. Is not having any psychomotor retardation or agitation. Speech: Is normal rate tone and volume Language skills are good Thought processes including: linear and goal oriented Thought content: depression and anxiety but decreasing, denies suicidal ideation . Abstract reasoning, and computation: fair. Description of associations: Negative Description of abnormal or psychotic thoughts: Negative Judgment: Fair Insight: Fair Orientation: Alert and oriented to person, place, time and situation Recent and remote memory: Intact Attention span and concentration: Good Language: Good Fund of knowledge: Below average. Mood: depressed at times, anxious, worried. Affect: Flat. DIAGNOSES: Major Depressive Disorder, Recurrent, Moderate Anxiety Disorder PTSD Tobacco Use disorder ASSESSMENT: Patient reporting decreased in depression, continued anxiety, and denies suicidal ideation. In today's individual therapy patient was mildly focused on medications, was able to reinforce with the patient the need for non- pharmacological coping. She reports that she often becomes every anxious due to poor planning. She states that she would like to be able to write goals for the day and be regimented about planning out her day's activities. She feels that this will reduce some of her anxiety. Reinforced that cognitive therapy is as effective if not more effective than medications due to no side effects and patient verbalized understanding that medications cannot treat for every symptom. Patient feels anxious about returning home but feels that she can be ready for discharge on Thursday. MANAGEMENT PLAN: Patient will be discharged on Thursday. TIME SPENT: 20 minutes. Vital Signs Vital Signs Date Time Temp Pulse Resp B/P (MAP) Pulse Ox O2 Delivery O2 Flow Rate FiO2 12/14/19 09:32 Room Air 12/14/19 06:28 99.0 74 16 132/64 (86) 95 Laboratory Data 24H Labs Laboratory Tests 2 12/13/19 11:02: Thyroid Stimulating Hormone (TSH) 41.700H, Free Thyroxine Index 3.0, Thyroxine (T4) 9.3, Triiodothyronine (T3) Uptake 32 Current Medications Current Medications Medications (Trade) Dose Ordered Sig/Mercedez Route PRN Reason Start Time Stop Time Status Last Admin Dose Admin Acetaminophen (Tylenol Tab) 650 mg Q6HP PRN PO HEADACHE or DISCOMFORT 12/07/19 15:15 12/11/19 17:18 DC 12/11/19 15:30 Acetaminophen (Tylenol Tab) 1,000 mg Q8HP PRN PO HEADACHE or DISCOMFORT 12/11/19 17:30 12/12/19 06:35 DC Acetaminophen (Tylenol Tab) 1,000 mg Q8HP PRN PO HEADACHE or DISCOMFORT 12/12/19 06:30 12/13/19 10:14 Al Hydrox/Mg Hydrox/Simethicone (Mylanta) 30 ml Q4HP PRN PO HEARTBURN/INDIGESTION 12/07/19 15:15 Bupropion HCl (Wellbutrin Xl) 150 mg QAM PO 12/08/19 09:00 12/14/19 08:47 Bupropion HCl (Wellbutrin Xl) 150 mg QAM PO 12/09/19 09:00 12/08/19 13:31 DC Buspirone HCl (Buspar) 5 mg BID PO 12/13/19 09:00 12/14/19 08:47 Escitalopram Oxalate (Lexapro) 20 mg DAILY PO 12/08/19 09:00 12/14/19 08:47 Gabapentin (Neurontin) 600 mg TID PO 12/08/19 16:00 12/14/19 08:47 Home Med (Med Rec Complete!) ASDIRECTED XX 12/07/19 17:30 12/07/19 17:24 DC Levothyroxine Sodium (Synthroid) 200 mcg DAILY@0600 PO 12/09/19 06:00 12/14/19 06:14 Magnesium Hydroxide (Milk Of Magnesia) 30 ml DAILYPRN PRN PO CONSTIPATION 12/07/19 15:15 Methadone HCl (Dolophine) 140 mg DAILY PO 12/08/19 09:00 12/14/19 08:47 Nicotine (Nicoderm Cq 21mg) 1 patch DAILY TD 12/11/19 09:00 12/14/19 08:48 Nicotine (Nicorette) 2 mg Q2HP PRN PO SMOKING CESSATION 12/08/19 13:15 12/10/19 12:53 DC 12/10/19 10:28 Quetiapine Fumarate (SEROquel) 25 mg BID PO 12/08/19 09:00 12/09/19 14:33 DC 12/09/19 08:20 Quetiapine Fumarate (SEROquel) 25 mg BID@0800,1800 PO 12/09/19 18:00 12/14/19 08:47 Quetiapine Fumarate (SEROquel) 100 mg QHS PO 12/07/19 21:00 12/13/19 20:10 Trazodone HCl (Desyrel) 50 mg QHSP PRN PO INSOMNIA 12/07/19 15:15 12/08/19 13:22 DC 12/07/19 20:22 Trazodone HCl (Desyrel) 100 mg QHS PO 12/08/19 21:00 12/13/19 20:10 Allergies Coded Allergies: No Known Allergies (Verified , 10/22/18) BIPIN TIRADO NP Dec 14, 2019 10:41
[2019-12-14 18:02] VITALS: BP 132/61
[2019-12-14] MEDS: traZODone 100 MG TAB PO SCH (20:04)
[2019-12-14] MEDS: QUEtiapine FUMARATE 100 MG TAB PO SCH (20:04)
[2019-12-15] MEDS: LEVOTHYROXINE 100MCG TABLET (0.1MG) PO SCH (06:17)
[2019-12-15 06:42] VITALS: BP 114/62
[2019-12-15] MEDS: NICOTINE 21MG/24HR 1 EA TRANSDERMAL TD SCH (08:44)
[2019-12-15] MEDS: ESCITALOPRAM OXALATE 10 MG TAB (LEXAPRO) PO SCH (08:44)
[2019-12-15] MEDS: QUEtiapine FUMARATE 25 MG TAB PO SCH ×2 (08:44→17:09)
[2019-12-15] MEDS: buPROPion **XL** TABLET 150MG (WELLBUTRIN XL) PO SCH (08:44)
[2019-12-15] MEDS: GABAPENTIN 300 MG CAP PO SCH ×3 (08:44→20:03)
[2019-12-15] MEDS: METHADONE 10 MG TAB (S0109) PO SCH (08:44)
[2019-12-15] MEDS: busPIRone 5 MG TAB PO SCH ×2 (08:44→20:03)
--- NOTE | 2019-12-15 14:41 | MHIPNPDOC ---
[facility] Progress Note Progress Note DATE OF SERVICE: 12/15/19 HISTORY: Patient is a 39 year old Female with history of depression, polysubstance abuse in the past, she was [facility] after being on medical for thyroid and renal issues. Patient had initially self-present to the ED with depression and suicidal ideation. VITAL SIGNS: See below. NEW TEST RESULTS: CURRENT MEDICATIONS: See below. MENTAL STATUS EXAMINATION: Patient is a 39-year old female, who is who was [facility] after reporting depression and suicidal ideation. She appears her stated age. Her hygiene and grooming is good, she makes good eye contact. Is not having any psychomotor retardation or agitation. She is calm and cooperative in the interview. Speech: Is normal rate tone and volume Language skills are good Thought processes including: linear and goal oriented Thought content: depression and anxiety but decreasing, denies suicidal ideation . Abstract reasoning, and computation: fair. Description of associations: Negative Description of abnormal or psychotic thoughts: Negative Judgment: Fair Insight: Fair Orientation: Alert and oriented to person, place, time and situation Recent and remote memory: Intact Attention span and concentration: Good Language: Good Fund of knowledge: Below average. Mood: depressed at times, anxious, worried. Affect: Flat. DIAGNOSES: Major Depressive Disorder, Recurrent, Moderate Anxiety Disorder PTSD Tobacco Use disorder ASSESSMENT: Patient reporting decreased in depression, continued anxiety, and denies suicidal ideation. In today's individual therapy patient was mildly focused on other peers who are treating her poorly or agitating her. Patient feels anxious about returning home but feels that she can be ready for discharge on Thursday and feels that she will return due to symptoms. She is cooperative in the milieu and treatment planning. TIME SPENT: 30 minutes. Vital Signs Vital Signs Date Time Temp Pulse Resp B/P (MAP) Pulse Ox O2 Delivery O2 Flow Rate FiO2 12/15/19 06:42 97.4 59 16 114/62 (79) 96 Room Air Current Medications Current Medications Medications (Trade) Dose Ordered Sig/Mercedez Route PRN Reason Start Time Stop Time Status Last Admin Dose Admin Acetaminophen (Tylenol Tab) 650 mg Q6HP PRN PO HEADACHE or DISCOMFORT 12/07/19 15:15 12/11/19 17:18 DC 12/11/19 15:30 Acetaminophen (Tylenol Tab) 1,000 mg Q8HP PRN PO HEADACHE or DISCOMFORT 12/11/19 17:30 12/12/19 06:35 DC Acetaminophen (Tylenol Tab) 1,000 mg Q8HP PRN PO HEADACHE or DISCOMFORT 12/12/19 06:30 12/13/19 10:14 Al Hydrox/Mg Hydrox/Simethicone (Mylanta) 30 ml Q4HP PRN PO HEARTBURN/INDIGESTION 12/07/19 15:15 Bupropion HCl (Wellbutrin Xl) 150 mg QAM PO 12/08/19 09:00 12/15/19 08:44 Bupropion HCl (Wellbutrin Xl) 150 mg QAM PO 12/09/19 09:00 12/08/19 13:31 DC Buspirone HCl (Buspar) 5 mg BID PO 12/13/19 09:00 12/15/19 08:44 Escitalopram Oxalate (Lexapro) 20 mg DAILY PO 12/08/19 09:00 12/15/19 08:44 Gabapentin (Neurontin) 600 mg TID PO 12/08/19 16:00 12/15/19 08:44 Home Med (Med Rec Complete!) ASDIRECTED XX 12/07/19 17:30 12/07/19 17:24 DC Levothyroxine Sodium (Synthroid) 200 mcg DAILY@0600 PO 12/09/19 06:00 12/15/19 06:17 Magnesium Hydroxide (Milk Of Magnesia) 30 ml DAILYPRN PRN PO CONSTIPATION 12/07/19 15:15 Methadone HCl (Dolophine) 140 mg DAILY PO 12/08/19 09:00 12/15/19 08:44 Nicotine (Nicoderm Cq 21mg) 1 patch DAILY TD 12/11/19 09:00 12/15/19 08:44 Nicotine (Nicorette) 2 mg Q2HP PRN PO SMOKING CESSATION 12/08/19 13:15 12/10/19 12:53 DC 12/10/19 10:28 Quetiapine Fumarate (SEROquel) 25 mg BID PO 12/08/19 09:00 12/09/19 14:33 DC 12/09/19 08:20 Quetiapine Fumarate (SEROquel) 25 mg BID@0800,1800 PO 12/09/19 18:00 12/15/19 08:44 Quetiapine Fumarate (SEROquel) 100 mg QHS PO 12/07/19 21:00 12/14/19 20:04 Trazodone HCl (Desyrel) 50 mg QHSP PRN PO INSOMNIA 12/07/19 15:15 12/08/19 13:22 DC 12/07/19 20:22 Trazodone HCl (Desyrel) 100 mg QHS PO 12/08/19 21:00 12/14/19 20:04 Allergies Coded Allergies: No Known Allergies (Verified , 10/22/18) BIPIN TIRADO NP Dec 15, 2019 14:41
[2019-12-15 16:23] VITALS: BP 128/79
[2019-12-15] MEDS: QUEtiapine FUMARATE 100 MG TAB PO SCH (20:03)
[2019-12-15] MEDS: traZODone 100 MG TAB PO SCH (20:03)
[2019-12-16] MEDS: LEVOTHYROXINE 100MCG TABLET (0.1MG) PO SCH (06:14)
[2019-12-16 06:57] VITALS: BP 98/70
[2019-12-16] MEDS: buPROPion **XL** TABLET 150MG (WELLBUTRIN XL) PO SCH (07:56)
[2019-12-16] MEDS: QUEtiapine FUMARATE 25 MG TAB PO SCH ×2 (07:56→17:59)
[2019-12-16] MEDS: busPIRone 5 MG TAB PO SCH ×2 (07:56→20:00)
[2019-12-16] MEDS: GABAPENTIN 300 MG CAP PO SCH ×3 (07:56→20:01)
[2019-12-16] MEDS: METHADONE 10 MG TAB (S0109) PO SCH (07:56)
[2019-12-16] MEDS: ESCITALOPRAM OXALATE 10 MG TAB (LEXAPRO) PO SCH (07:56)
[2019-12-16] MEDS: NICOTINE 21MG/24HR 1 EA TRANSDERMAL TD SCH (07:57)
--- NOTE | 2019-12-16 10:06 | MHIPNPDOC ---
[facility] Progress Note Progress Note DATE OF SERVICE: 12/16/19 HISTORY: Patient is a 39 year old Single, Disabled, Domiciled Female who self-presented to the hospital with complaints of suicidal ideation and dep ression. She was initially admitted to medical for thyroid and renal issues and then directly admitted to [facility] for her original complaints. She had reported an increase in depression and anxiety with suicidal ideation due to her daughter running away from home. This daughter who is 16 year old does not live with the patient. Patient reports that prior to her daughter leaving she had been doing well with her medication regimen. VITAL SIGNS: See below. NEW TEST RESULTS: CURRENT MEDICATIONS: See below. MENTAL STATUS EXAMINATION: Patient is a 39-year old female, who is reporting decreased depression, moderate anxiety and severe agitation today. She is calm and cooperative in the interview. Hygiene and grooming is fair to good, she is wearing hospital scrubs. Pleasant in the milieu. No psychomotor agitation or retardation noted. Eye contact is normal Speech: Is spontaneous, fluid and conversant Language skills are good Thought processes including: linear, reality based, mildly ruminative Thought content: None noted Abstract reasoning, and computation: fair Description of associations: none noted/patient denies Description of abnormal or psychotic thoughts: none noted/patient denies Judgment: good Insight: good Orientation: alert and oriented Recent and remote memory: intact Attention span and concentration: good Language: good Fund of knowledge: below average Mood: Mildly depressed. Affect: constricted DIAGNOSES: 1. Major Depressive Disorder, Recurrent, Moderate 2. Anxiety Disorder 3.. PTSD 4. Tobacco Use disorder ASSESSMENT: Patient upset with a peer's sitter. States that she has been focused on this for awhile, attempted to redirect patient to her own admission. She complains that her foot feels numb at times. Encouraged ROM exercises daily. She rates her depression 3/10, Anxiety rated 5/10, Agitation 9/10 due other peers and their behaviors. She reports that she wants to control her agitation and not let their behaviors "get to me." She is reporting her frustration about not being able to talk to the hospitalist about his ankle. She states that she attempted to speak to the nurse about this, encouraged that patient to try ROM exercises and explained that calling the hospitalist for this complaint may be too minor as she reports no unsteadiness or pain with it. MANAGEMENT PLAN: Patient is requesting to be discharged on Thursday, states that she is fearful of being on her own without supports over the weekend. She will be able to go to her outpatient appointments next week and feels that if she were discharged today she would be readmitted. TIME SPENT: 20 minutes. Vital Signs Vital Signs Date Time Temp Pulse Resp B/P (MAP) Pulse Ox O2 Delivery O2 Flow Rate FiO2 12/16/19 06:57 98.2 72 16 98/70 (79) Room Air 12/15/19 06:42 96 Current Medications Current Medications Medications (Trade) Dose Ordered Sig/Mer[place]ez Route PRN Reason Start Time Stop Time Status Last Admin Dose Admin Acetaminophen (Tylenol Tab) 650 mg Q6HP PRN PO HEADACHE or DISCOMFORT 12/07/19 15:15 12/11/19 17:18 DC 12/11/19 15:30 Acetaminophen (Tylenol Tab) 1,000 mg Q8HP PRN PO HEADACHE or DISCOMFORT 12/11/19 17:30 12/12/19 06:35 DC Acetaminophen (Tylenol Tab) 1,000 mg Q8HP PRN PO HEADACHE or DISCOMFORT 12/12/19 06:30 12/13/19 10:14 Al Hydrox/Mg Hydrox/Simethicone (Mylanta) 30 ml Q4HP PRN PO HEARTBURN/INDIGESTION 12/07/19 15:15 Bupropion HCl (Wellbutrin Xl) 150 mg QAM PO 12/08/19 09:00 12/16/19 07:56 Bupropion HCl (Wellbutrin Xl) 150 mg QAM PO 12/09/19 09:00 12/08/19 13:31 DC Buspirone HCl (Buspar) 5 mg BID PO 12/13/19 09:00 12/16/19 07:56 Escitalopram Oxalate (Lexapro) 20 mg DAILY PO 12/08/19 09:00 12/16/19 07:56 Gabapentin (Neurontin) 600 mg TID PO 12/08/19 16:00 12/16/19 07:56 Home Med (Med Rec Complete!) ASDIRECTED XX 12/07/19 17:30 12/07/19 17:24 DC Levothyroxine Sodium (Synthroid) 200 mcg DAILY@0600 PO 12/09/19 06:00 12/16/19 06:14 Magnesium Hydroxide (Milk Of Magnesia) 30 ml DAILYPRN PRN PO CONSTIPATION 12/07/19 15:15 Methadone HCl (Dolophine) 140 mg DAILY PO 12/08/19 09:00 12/16/19 07:56 Nicotine (Nicoderm Cq 21mg) 1 patch DAILY TD 12/11/19 09:00 12/16/19 07:57 Nicotine (Nicorette) 2 mg Q2HP PRN PO SMOKING CESSATION 12/08/19 13:15 12/10/19 12:53 DC 12/10/19 10:28 Quetiapine Fumarate (SEROquel) 25 mg BID PO 12/08/19 09:00 12/09/19 14:33 DC 12/09/19 08:20 Quetiapine Fumarate (SEROquel) 25 mg BID@0800,1800 PO 12/09/19 18:00 12/16/19 07:56 Quetiapine Fumarate (SEROquel) 100 mg QHS PO 12/07/19 21:00 12/15/19 20:03 Trazodone HCl (Desyrel) 50 mg QHSP PRN PO INSOMNIA 12/07/19 15:15 12/08/19 13:22 DC 12/07/19 20:22 Trazodone HCl (Desyrel) 100 mg QHS PO 12/08/19 21:00 12/15/19 20:03 Allergies Coded Allergies: No Known Allergies (Verified , 10/22/18) BIPIN TIRADO NP Dec 16, 2019 10:06
[2019-12-16] MEDS: ACETAMINOPHEN 500 MG TAB PO PRN (15:09)
[2019-12-16 18:09] VITALS: BP 121/67
[2019-12-16] MEDS: traZODone 100 MG TAB PO SCH (20:00)
[2019-12-16] MEDS: QUEtiapine FUMARATE 100 MG TAB PO SCH (20:00)
[2019-12-17] MEDS: LEVOTHYROXINE 100MCG TABLET (0.1MG) PO SCH (06:27)
[2019-12-17 06:58] VITALS: BP 115/61
[2019-12-17] MEDS: METHADONE 10 MG TAB (S0109) PO SCH (08:34)
[2019-12-17] MEDS: busPIRone 5 MG TAB PO SCH ×2 (08:35→20:26)
[2019-12-17] MEDS: GABAPENTIN 300 MG CAP PO SCH ×3 (08:35→20:26)
[2019-12-17] MEDS: ESCITALOPRAM OXALATE 10 MG TAB (LEXAPRO) PO SCH (08:35)
[2019-12-17] MEDS: buPROPion **XL** TABLET 150MG (WELLBUTRIN XL) PO SCH (08:35)
[2019-12-17] MEDS: NICOTINE 21MG/24HR 1 EA TRANSDERMAL TD SCH (08:35)
[2019-12-17] MEDS: QUEtiapine FUMARATE 25 MG TAB PO SCH ×2 (08:35→17:00)
[2019-12-17] MEDS: ACETAMINOPHEN 500 MG TAB PO PRN (17:01)
[2019-12-17 18:00] VITALS: BP 122/96
[2019-12-17] MEDS: QUEtiapine FUMARATE 100 MG TAB PO SCH (20:26)
[2019-12-17] MEDS: traZODone 100 MG TAB PO SCH (20:26)
[2019-12-18] MEDS: LEVOTHYROXINE 100MCG TABLET (0.1MG) PO SCH (05:57)
[2019-12-18 06:34] VITALS: BP 113/58
[2019-12-18] MEDS: GABAPENTIN 300 MG CAP PO SCH ×3 (07:58→21:31)
[2019-12-18] MEDS: ESCITALOPRAM OXALATE 10 MG TAB (LEXAPRO) PO SCH (07:58)
[2019-12-18] MEDS: busPIRone 5 MG TAB PO SCH ×2 (07:58→21:31)
[2019-12-18] MEDS: QUEtiapine FUMARATE 25 MG TAB PO SCH ×2 (07:58→17:36)
[2019-12-18] MEDS: buPROPion **XL** TABLET 150MG (WELLBUTRIN XL) PO SCH (07:58)
[2019-12-18] MEDS: METHADONE 10 MG TAB (S0109) PO SCH (07:59)
[2019-12-18] MEDS: NICOTINE 21MG/24HR 1 EA TRANSDERMAL TD SCH (07:59)
[2019-12-18 18:00] VITALS: BP 98/56
[2019-12-18] MEDS: traZODone 100 MG TAB PO SCH (21:31)
[2019-12-18] MEDS: QUEtiapine FUMARATE 100 MG TAB PO SCH (21:31)
[2019-12-19] MEDS: LEVOTHYROXINE 100MCG TABLET (0.1MG) PO SCH (05:57)
[2019-12-19 06:10] VITALS: BP 105/50
[2019-12-19] MEDS: METHADONE 10 MG TAB (S0109) PO SCH (08:15)
[2019-12-19] MEDS: busPIRone 5 MG TAB PO SCH (08:15)
[2019-12-19] MEDS: buPROPion **XL** TABLET 150MG (WELLBUTRIN XL) PO SCH (08:15)
[2019-12-19] MEDS: QUEtiapine FUMARATE 25 MG TAB PO SCH (08:15)
[2019-12-19] MEDS: ESCITALOPRAM OXALATE 10 MG TAB (LEXAPRO) PO SCH (08:15)
[2019-12-19] MEDS: NICOTINE 21MG/24HR 1 EA TRANSDERMAL TD SCH (08:16)
[2019-12-19] MEDS: GABAPENTIN 300 MG CAP PO SCH (08:16)
[2019-12-19] MEDS ORDERED: LEXA1TAB PO (10:07)
[2019-12-19] MEDS ORDERED: BUPR150T3 PO (10:07)
[2019-12-19] MEDS ORDERED: BUSP5TA PO (10:07)
[2019-12-19] MEDS ORDERED: QUET1TAB7 PO (10:07)
[2019-12-19] MEDS ORDERED: GABA-843 PO (10:07)
[2019-12-19] MEDS ORDERED: LEXA1TAB2 PO (10:07)
[2019-12-19] MEDS ORDERED: TRAZ1TAB14 PO (10:07)
[2019-12-19] MEDS ORDERED: LEVO100T5 PO (10:07)
--- NOTE | 2019-12-19 10:13 | MHDSPDOC ---
[facility] Discharge Summary Discharge Summary DATE OF ADMISSION: Dec 07, 2019 at 16:19 DATE OF DISCHARGE: December 19, 2019 at 10:30 DIAGNOSES: 1. Major Depressive Disorder, Recurrent, Moderate 2. Anxiety Disorder 3.. PTSD 4. Tobacco Use disorder REASON FOR ADMISSION: Patient is a 39 year old Single, Disabled, Domiciled, Female who is a direct admit to [facility] after she was admitted to medical for Thyroid and Renal Issues. She initially self-presented to the ED for depressive and anxiety symptoms and suicidal ideation History of Present Illness HISTORY OF THE PRESENT ILLNESS: Patient is a 39 -year-old , female, who had self presented to the ED with complaints of depression, anxiety and suicidal ideation after her 16 year old daughter ran away from home one week ago. She was seen admitted medically initially because she had both thyroid and renal issues. Patient has a history of depression, PTSD, Opiate and Alcohol Substance Abuse and has been psychiatrically admitted 6 other times. This admission is the 7th admission for this patient who states that she feel that she needs her "meds touched up." She reports that she was not taking her Wellbutrin. Patient states that her daughter ran away one week ago and went to [place]. Patient was "suppose to get custody of her." Patient also states that she was "staying clean and trying to be normal citizen being clean and sober and trying to be a good Mom." CONSULTANTS INVOLVED: See History and Physical By Medical Dr. Mauricio TREATMENT AND PROGRESS ON THE UNIT : Patient was afforded the following treatment modalities 1) Individual Therapy consisting of cognitive therapy, 2) Group Therapy, 3) Medication Management, 4) Safe Environment and 5) Milieu Therapy HOSPITAL COURSE: Patient initially had reported that she needed to have medication changes. During her initial psychiatric evaluation patient had reported that her daughter who does not live with her had run away from home to [place]. Reinforced with patient that she had no admissions since April 2019 and that her medications were maintaining her up until a situational stressor occurred. She agreed that her medications were not the failing and that situational stressors cannot work harder for her. We discussed that in situations of stress, the best alternative is therapy and not medication changes. She was agreeable to no medication changes but she continued to report anxiety. We initially decreased the Gabapentin due to her high dose of Methadone and her presentation of being very drowsy. I introduced a low dose of Buspar based on the patient's complaints. She reported good efficacy. She was calm and cooperative in the milieu and did well in individual and group therapies. DISCHARGE ASSESSMENT: Patient is safe for discharge today. She is happy and wants to see her cat and boyfriend. She denies depression, suicidal/homicidal ideation. Reports that her anxiety is under control and that she does not have any self-harm thoughts. MENTAL STATUS EXAMINATION: Patient is a 39-year old female, who is reporting decreased depression, moderate anxiety and severe agitation today. She is calm and cooperative in the interview. Hygiene and grooming is fair to good, she is wearing hospital scrubs. Pleasant in the milieu. No psychomotor agitation or retardation noted. Eye contact is normal Speech: Is spontaneous, fluid and conversant Language skills are good Thought processes including: linear, reality based, mildly ruminative Thought content: None noted Abstract reasoning, and computation: fair Description of associations: none noted/patient denies Description of abnormal or psychotic thoughts: none noted/patient denies Judgment: good Insight: good Orientation: alert and oriented Recent and remote memory: intact Attention span and concentration: good Language: good Fund of knowledge: below average Mood: Mildly depressed. Affect: constricted MEDICATIONS ON DISCHARGE: See Medication Reconciliation PLAN/FOLLOWUP ARRANGEMENTS: Patient to follow up with [facility], see Senior Bi Developer's notes The amount of time spent in the coordination of care for this patient was approximately 20 minutes. Vital Signs/I&Os Vital Signs Date Time Temp Pulse Resp B/P (MAP) Pulse Ox O2 Delivery O2 Flow Rate FiO2 12/19/19 06:10 98.3 65 16 105/50 (68) 93 Room Air Medications Scheduled Bupropion Hcl (Bupropion Xl) 150 Mg Tab.er.24h, 150 MG PO DAILY for Depression, #7 Buspirone HCl (Buspirone HCl) 5 Mg Tablet, 5 MG PO BID for Anxiety, #14 Escitalopram Oxalate (Lexapro) 10 Mg Tablet, 10 MG PO DAILY for Depression, #7 30 MG TOTAL DAILY Escitalopram Oxalate (Lexapro) 20 Mg Tablet, 20 MG PO DAILY for depression, #7 TAKES 30 MG TOTAL DAILY Gabapentin (Gabapentin) 800 Mg Tablet, 800 MG PO TID, (Reported) Gabapentin (Gabapentin) 300 Mg Capsule, 600 MG PO TID for Anxiety, #42 Levothyroxine Sodium (Levothyroxine Sodium) 100 Mcg Tablet, 200 MCG PO DAILY@0600 for Thyroid for 30 Days, #14 Methadone HCl (Methadone HCl) 10 Mg/1 Ml Oral.conc, 140 MG PO DAILY, (Reported) Quetiapine Fumarate (Seroquel Xr) 150 Mg Tab.er.24h, 150 MG PO QHS, (Reported) Quetiapine Fumarate (Quetiapine Fumarate) 25 Mg Tablet, 25 MG PO BID for Agitation, #14 TAKES IN MORNING AND AT DINNER TIME Trazodone HCl (Trazodone HCl) 150 Mg Tablet, 150 MG PO QHS for insomnia, #7 Scheduled PRN Acetaminophen (Tylenol Extra Strength) 500 Mg Tablet, 1,000 MG PO TID PRN for PAIN, (Reported) Allergies Coded Allergies: No Known Allergies (Verified , 10/22/18) BIPIN TIRADO NP Dec 19, 2019 10:13
== END 2019-12-19 13:38 | disposition home or self-care (01) | DRG 751 ==
LOC: EEVIPCON 16:19 → M PSY 16:19
PROVIDERS: ADMIT Psychiatry & Neurology Psychiatry; ATTEND Psychiatry & Neurology Psychiatry
DX: F33.1 Major depressive disorder, recurrent, moderate (principal); F41.9 Anxiety disorder, unspecified; F43.10 Post-traumatic stress disorder, unspecified; F17.200 Nicotine dependence, unspecified, uncomplicated; Z91.14 Patient's other noncompliance with medication regimen; E03.9 Hypothyroidism, unspecified; N28.9 Disorder of kidney and ureter, unspecified; D86.89 Sarcoidosis of other sites; Z62.810 Personal history of physical and sexual abuse in childhood; Z91.410 Personal history of adult physical and sexual abuse; Z79.899 Other long term (current) drug therapy; Z87.81 Personal history of (healed) traumatic fracture; Z91.19 Patient's noncompliance with other medical treatment and regimen

== ENCOUNTER 2020-02-19 19:00 | Emergency (ER) | payer OTHER ==
[~2020-02-19] VITALS: Ht 160 cm; Wt 110.0 kg
[~2020-02-19 19:00] MED LIST changes: +BUSP5TA PO; +LEVO100T5 PO
[2020-02-19] MEDS ORDERED: GABA800T4 (19:19)
[2020-02-19] MEDS ORDERED: QUET150T2 (19:19)
[2020-02-19] MEDS ORDERED: BUPR300T92 (19:19)
[2020-02-19] MEDS ORDERED: ALBUTEROL 90 MCG/ACT 8GM HFA INHALER INH ONE (20:00)
[2020-02-19] MEDS ORDERED: predniSONE 20 MG TAB PO ONE (20:00)
--- NOTE | 2020-02-19 22:20 | REPVR ---
PROCEDURE INFORMATION: Exam: XR Chest, 2 Views Exam date and time: 02/19/2020 10:14 PM Age: 39 years old Clinical indication: Shortness of breath; Additional info: SOB TECHNIQUE: Imaging protocol: XR of the chest Views: 2 views. COMPARISON: [facility] PORTABLE CHEST X-RAY 12/06/2019 1:39 PM FINDINGS: Lungs: Degree of inflation of the lungs is normal. No evidence of pulmonary edema. Subtle ill-defined airspace opacity at the right lung base appears improved or resolved compared to the prior radiograph.. No concerning parenchymal lung mass. Pleural space: No pleural effusion or pneumothorax. Heart/Mediastinum: Cardiac silhouette appears normal. No mediastinal adenopathy or hilar mass. Bones/joints: Osseous structures show no acute or concerning abnormality. IMPRESSION: Improvement and near radiographic resolution of a prior right basilar infiltrate. Electronically signed by: Isreal Feldman On 02/19/2020 22:20:04 PM
[2020-02-19] MEDS ORDERED: VENTAER INH (22:46)
[2020-02-19 23:07] VITALS: BP 125/79
== END 2020-02-19 23:09 | disposition home or self-care (01) ==
LOC: M ED 19:00
DX: J06.9 Acute upper respiratory infection, unspecified (principal); B34.8 Other viral infections of unspecified site; F41.9 Anxiety disorder, unspecified; F32.9 Major depressive disorder, single episode, unspecified; F43.10 Post-traumatic stress disorder, unspecified; I10 Essential (primary) hypertension; E78.5 Hyperlipidemia, unspecified; K21.9 Gastro-esophageal reflux disease without esophagitis; E03.9 Hypothyroidism, unspecified; F17.210 Nicotine dependence, cigarettes, uncomplicated; Z79.899 Other long term (current) drug therapy

== ENCOUNTER 2020-02-28 10:17 | Inpatient (IN) | payer OTHER ==
[~2020-02-28] VITALS: Ht 160 cm; Wt 98.4 kg
[2020-02-28] VITALS (11 sets, daily range): BP systolic 131–134; BP diastolic 77–89; O2SAT 82–92
[~2020-02-28 10:17] MED LIST changes: +BUPR300T92; +GABA800T4; +QUET150T2; +VENTAER INH
[2020-02-28] MEDS ORDERED: COMBIVENT RESPIMAT 100-20MCG INHALER 4GM INH STA (11:01)
[2020-02-28 11:35] LABS: BASO # 0.1 10^3/uL (0.0-0.2); BASO % 1.2 % (0.0-1.0); EOS # 0.2 10^3/uL (0.0-0.5); EOS % 3.8 % (0.0-3.0); HEMATOCRIT 44.9 % (36.0-47.0); HEMOGLOBIN 13.8 g/dl (12.0-15.5); LYMPH % 17.1 % (24.0-44.0); MEAN CORPUSCULAR HEMOGLOBIN 29.3 pg (27.0-33.0); MEAN CORPUSCULAR HGB CONC 30.7 g/dl (32.0-36.5); MEAN CORPUSCULAR VOLUME 95.3 fl (80.0-96.0); MONO # 0.4 10^3/uL (0.0-0.8); NEUTROPHILS # 4.1 10^3/uL (1.5-8.5); NEUTROPHILS % 67.9 % (36.0-66.0); PLATELET COUNT, AUTOMATED 148 10^3/uL (150-450); RED BLOOD COUNT 4.71 10^6/uL (4.00-5.40)
[2020-02-28 13:18] LABS: HCG, SERUM QUALITATIVE NEGATIVE (NEGATIVE)
--- NOTE | 2020-02-28 13:35 | REP ---
INDICATION: DYSPNEA/COUGH COMPARISON: 02/19/2020 TECHNIQUE: Portable AP view of the chest FINDINGS: Examination is limited by poor inspiratory effort. Trace right basilar atelectasis cannot be excluded. The mediastinum and cardiac silhouette are stable and within normal limits for portable technique. No effusion or pneumothorax. Skeletal structures are intact. IMPRESSION: Cannot exclude trace basilar atelectasis. <Electronically signed by Alvarado Muir > 02/28/20 [id number]
[2020-02-28 13:38] LABS: ALT/SGPT 11 U/L (12-78); BILIRUBIN,DIRECT < 0.1 MG/DL (0.0-0.2); BILIRUBIN,TOTAL 0.3 MG/DL (0.2-1.0); BLOOD UREA NITROGEN 11 MG/DL (7-18); CALCIUM LEVEL 9.6 MG/DL (8.5-10.1); CARBON DIOXIDE LEVEL 31 MEQ/L (21-32); CHLORIDE LEVEL 103 MEQ/L (98-107); GLOMERULAR FILTRATION RATE 25.4 (>60); GLUCOSE, FASTING 108 MG/DL (70-100); POTASSIUM SERUM 4.4 MEQ/L (3.5-5.1); SODIUM LEVEL 137 MEQ/L (136-145); TOTAL PROTEIN 7.8 GM/DL (6.4-8.2)
[2020-02-28] MEDS: NS 1,000 ML IV SCH ×4 (14:51→22:00)
--- NOTE | 2020-02-28 14:52 | REP ---
INDICATION: hypoxia COMPARISON: None. TECHNIQUE: Real time compression and duplex Doppler interrogation of the bilateral lower extremity deep venous system is performed. FINDINGS: Bilaterally, the common femoral, superficial femoral and popliteal veins are fully compressible with transducer pressure and demonstrate normal spontaneous and phasic flow, without evidence of deep venous thrombosis. IMPRESSION: No evidence of deep venous thrombosis of the bilateral lower extremity femoral popliteal venous system. <Electronically signed by Levy Beasley > 02/28/20 [id number]
--- NOTE | 2020-02-28 15:30 | REP ---
INDICATION: hypoxia COMPARISON: None TECHNIQUE: Axial noncontrast images from the thoracic inlet to the upper abdomen with coronal and sagittal reformations. This CT examination was performed using the following dose reduction techniques: Automated exposure control, adjustment of mA and/or kv according to the patient's size, and use of iterative reconstruction technique. FINDINGS: Mild/early moderate bibasilar atelectasis and small consolidations. Associated reactive mediastinal adenopathy noted. Tracheobronchial tree is patent. No effusion. No pneumothorax. Mediastinum demonstrates normal thoracic aorta and heart/pericardium. Visualized thyroid gland is unremarkable. Surrounding musculoskeletal structures are intact. Limited upper abdomen demonstrates normal bilateral adrenal glands and renal medullary nephrocalcinosis. IMPRESSION: 1. Mild/early moderate bibasilar atelectasis and small consolidations with reactive adenopathy. Correlation and follow-up to resolution recommended. <Electronically signed by Alvarado Muir > 02/28/20 [id number]
[2020-02-28 15:34] LABS: OSMOLALITY SERUM 292 MOSM/KG (275-295)
[2020-02-28] MEDS ORDERED: QUET1TAB7 PO (15:38)
[2020-02-28] MEDS ORDERED: SERO150T2 PO (15:38)
[2020-02-28] MEDS ORDERED: BUSP5TA PO (15:38)
[2020-02-28] MEDS ORDERED: TRAZ150T90 PO (15:38)
[2020-02-28] MEDS ORDERED: BUPR300T92 PO (15:38)
[2020-02-28] MEDS ORDERED: GABA800T4 PO (15:38)
[2020-02-28] MEDS ORDERED: ESCI10TA2 PO (15:38)
[2020-02-28] MEDS ORDERED: ALBU8.5H INH (15:38)
[2020-02-28 15:52] LABS: CPK CREATINE PHOSPHOKINASE 277 U/L (26-192); FREE T3 < 0.5 PG/ML (2.2-4.0); FREE T4 0.19 NG/DL (0.76-1.46); MAGNESIUM LEVEL 2.1 MG/DL (1.8-2.4); URIC ACID 8.3 MG/DL (2.6-6.0)
--- NOTE | 2020-02-28 16:15 | HPEPDOC ---
General Date of Admission 02/28/20 Date of Service: Feb 28, 2020 Chief Complaint The patient is a 39-year-old female admitted with a reason for visit of Shortness of Breath. Source: Patient Exam Limitations: No limitations Timing/Duration: Day(s) Severity: Moderate Associated Symptoms: Cough History of Present Illness Patient is 39 years old female with past medical history of polysubstance drug abuse on methadone, sarcoidosis, smoking presented to the hospital with increased shortness of breath. Patient stated that she was tested positive for rhinoviral infection on 02/19/20 and for past 5-6 days she has been having increased cough with increased shortness of breath. Patient describes cough as dry and constant. Patient denied fever, chills, nausea, vomiting, diarrhea or dysuria. In emergency CT chest was done and showed Mild/early moderate bibasilar atelectasis and small consolidations with reactive adenopathy. Labs pertinent for creatinine 2.3, TSH 119, T4 0.19. Blood gas showed pH 7.3, oxygenation 46, CO2 51. Home Medications Scheduled Bupropion HCl (Bupropion Xl) 300 Mg Tab.er.24h, 300 MG PO DAILY, (Reported) Buspirone HCl (Buspirone HCl) 5 Mg Tablet, 5 MG PO BID, (Reported) Escitalopram Oxalate (Escitalopram Oxalate) 10 Mg Tablet, 30 MG PO DAILY, (Reported) Gabapentin (Gabapentin) 800 Mg Tablet, 800 MG PO TID, (Reported) Methadone HCl (Methadone HCl) 10 Mg/1 Ml Oral.conc, 140 MG PO DAILY, (Reported) WAITING FOR CALL BACK FROM [facility] TO VERIFY DOSE Quetiapine Fumarate (Quetiapine Fumarate) 25 Mg Tablet, 25 MG PO BID, (Reported) TAKES MORNING AND DINNERTIME Quetiapine Fumarate (Seroquel Xr) 150 Mg Tab.er.24h, 150 MG PO QHS, (Reported) Scheduled PRN Albuterol Sulfate (Albuterol Sulfate Hfa) 8.5 Gm Hfa.aer.ad, 2 PUFFS INH Q4H PRN for SHORTNESS OF BREATH, (Reported) Trazodone HCl (Trazodone HCl) 150 Mg Tablet, 150 MG PO QHS PRN for SLEEP, (Reported) Allergies Coded Allergies: No Known Allergies (Verified , 10/22/18) Past Medical History Medical History Hypothyroidism, sarcoidosis, bipolar disorder, suicidal ideation, depression, history of noncompliance Family History I personally reviewed family history and found not pertinent Social History * Smoker: current smoker Alcohol: Denies Drugs: heroin, other (on methadone) A-FIB/CHADSVASC A-FIB History Current/History of A-Fib/PAF?: No Current PO Anticoag Therapy: No Review of Systems Constitutional: Denies: Chills, Fever Eyes: Denies: Pain ENT: Denies: Head Aches Skin: Denies: Rash, Lesions Pulmonary: Reports: Dyspnea, Cough Cardiovascular: Denies: Chest Pain Gastrointestinal: Denies: Nausea, Vomiting Genitourinary: Denies: Dysuria Hematologic: Denies: Bruising Endocrine: Denies: Polydipsia, Polyphagia Musculoskeletal: Denies: Neck Pain Neurological: Denies: Weakness Psych: Reports: Mood Normal Physical Examination General Exam: Positive: Alert, Cooperative Eye Exam: Positive: PERRLA ENT Exam: Positive: Atraumatic Neck Exam: Positive: Supple; Negative: JVD Chest Exam: Positive: Rhonchi, Diminished Heart Exam: Positive: Rate Normal Telemetry: Positive: No significant arrhythmia Abdomen Exam: Positive: Normal bowel sounds Extremity Exam: Negative: Clubbing, Cyanosis Skin Exam: Positive: Nl turgor and temperature Neuro Exam: Positive: Normal Gait, Strength at 5/5 X4 ext Psych Exam: Positive: Mental status NL Vital Signs Vital Signs Date Time Temp Pulse Resp B/P (MAP) Pulse Ox O2 Delivery O2 Flow Rate FiO2 02/28/20 14:47 97.8 57 20 78 Nasal Cannula 2.0 02/28/20 14:45 115/82 (93) Laboratory Data Labs 24H Laboratory Tests 2 02/28/20 11:22: Immature Granulocyte % (Auto) 4.0H, Neutrophils (%) (Auto) 67.9H, Lymphocytes (%) (Auto) 17.1L, Monocytes (%) (Auto) 6.0H, Eosinophils (%) (Auto) 3.8H, Basophils (%) (Auto) 1.2H, Neutrophils # (Auto) 4.1, Lymphocytes # (Auto) 1.0L, Monocytes # (Auto) 0.4, Eosinophils # (Auto) 0.2, Basophils # (Auto) 0.1, Nucleated Red Blood Cells % (auto) 0.0 02/28/20 11:26: Coronavirus (COVID-19)(PCR) NEGATIVE 02/28/20 11:40: POC Glucose (Misc Panel) 94, POC Sodium (Misc Panel) 138, POC Potassium (Misc Panel) 6.9*H, POC Chloride (Misc Panel) 100, POC Total CO2 (Misc Panel) 32.0H, POC Blood Urea Nitrogen (Misc Panel 12, POC Ionized Calcium (Misc Panel) 4.4L, POC Creatinine (Misc Panel) 2.3H, POC Hematocrit (Misc Panel) 46.0 02/28/20 11:41: POC Troponin I (Misc) 0.01 02/28/20 12:32: Anion Gap 3L, Glomerular Filtration Rate 25.4L, Osmolality 292, Uric Acid 8.3H, Calcium Level 9.6, Magnesium Level 2.1, Total Bilirubin 0.3, Direct Bilirubin < 0.1, Aspartate Amino Transf (AST/SGOT) 18, Alanine Aminotransferase (ALT/SGPT) 11L, Alkaline Phosphatase 98, Total Creatine Kinase 277H, Total Protein 7.8, Albumin 4.0, Albumin/Globulin Ratio 1.1L, Thyroid Stimulating Hormone (TSH) 190.000H, Free Thyroxine 0.19L, Free Triiodothyronine < 0.5L, Human Chorionic Gonadotropin, Qual NEGATIVE 02/28/20 14:58: POC pH (Misc Panel) 7.359, POC Base Excess (Misc Panel) 3.0, POC Saturated Percent O2 (Misc) 79L, POC pO2 (Misc Panel) 46.0*L, POC pCO2 (Misc Panel) 51.0H, POC HCO3 (Misc Panel) 28.7H, POC Total CO2 (Misc Panel) 30.0H CBC/BMP Laboratory Tests 02/28/20 11:22 02/28/20 12:32 Assessment/Plan Patient is 39 years old female with past medical history of polysubstance drug abuse on methadone, sarcoidosis, smoking presented to the hospital with increased shortness of breath. Patient stated that she was tested positive for rhinoviral infection on 02/19/20 and for past 5-6 days she has been having increased cough with increased shortness of breath. Patient describes cough as dry and constant. Patient denied fever, chills, nausea, vomiting, diarrhea or dysuria. In emergency CT chest was done and showed Mild/early moderate bibasilar atelectasis and small consolidations with reactive adenopathy. Labs pertinent for creatinine 2.3, TSH 119, T4 0.19. Blood gas showed pH 7.3, oxygenation 46, CO2 51. Problems (1) Acute hypoxemic respiratory failure Status: Acute Problem Text: Blood gas showed acute hypoxemic respiratory failure most likely secondary to bronchiolitis due to upper respiratory viral infection. Patient was tested positive for rhinovirus Patient does not have leukocytosis, afebrile IV steroids Inhalers Incentive spirometry (2) Hypothyroidism Status: Acute Problem Text: Noncompliant with her medical regimen Patient has bradycardia IV levothyroxine for now Levothyroxine by mouth daily (3) Substance abuse Status: Chronic Problem Text: Continue methadone therapy (4) Sarcoidosis Status: Chronic Problem Text: Patient noncompliant to treatment Follow-up with test and turn up technician in the outpatient settings (5) CASPER (acute kidney injury) Status: Acute Problem Text: Acute on chronic kidney injury Most likely secondary to dehydration IV fluid Continue to monitor Plan / VTE VTE Prophylaxis Ordered?: Yes BECKA MCKENZIE DO Feb 28, 2020 16:15
[2020-02-28] MEDS: methylPREDNISolone 125MG 2ML VIAL IV SCH ×2 (16:25→23:19)
[2020-02-28] MEDS ORDERED: LEVOTHYROXINE 100MCG (0.1MG) VIAL IV ONE (18:00)
[2020-02-28] MEDS: IPRATROPIUM 0.5MG/ALBUTEROL 2.5MG INH SOL UD 3ML (DUONEB) NEB SCH (20:07)
[2020-02-28 20:47] LABS: ABG BASE EXCESS 0.1 (-2.0-2.0); ABG HCO3 26.5 MEQ/L (22.0-26.0); ABG O2 LITER FLOW 6L; ABG O2 SATURATION 88.9 % (95.0-99.0); ABG PARTIAL PRESSURE CO2 49.9 mmHg (35.0-45.0); ABG PARTIAL PRESSURE O2 57.5 mmHg (75.0-100.0); ABG STANDARD HCO3 24.4 MEQ/L (22.0-26.0); ABG pH (ARTERIAL) 7.343 UNITS (7.350-7.450)
[2020-02-28] MEDS: GABAPENTIN 300 MG CAP PO SCH (21:00)
[2020-02-28] MEDS ORDERED: GABAPENTIN 400 MG CAP PO SCH (21:00)
[2020-02-28] MEDS: QUEtiapine FUMARATE 25 MG TAB PO SCH (21:00)
--- NOTE | 2020-02-28 21:27 | REPVR ---
PROCEDURE INFORMATION: Exam: XR Chest, 1 View Exam date and time: 02/28/2020 9:04 PM Age: 39 years old Clinical indication: Shortness of breath; Additional info: Decreasing o2 sat TECHNIQUE: Imaging protocol: XR of the chest Views: 1 view. COMPARISON: CT Chest without contrast 02/28/2020 3:06 PM FINDINGS: Lungs: Mild right base and minimal left base infiltrate or atelectasis. There is decreased inflation of the lungs. Pleural space: Unremarkable. No pleural effusion. No pneumothorax. Heart/Mediastinum: Unremarkable. No cardiomegaly. Bones/joints: Unremarkable. Soft tissues: There are moderately generous overlying soft tissues. IMPRESSION: 1. Mild right base and minimal left base infiltrate or atelectasis. 2. Otherwise negative chest. Electronically signed by: Micheal Johnson On 02/28/2020 21:27:07 PM
[2020-02-28 21:58] LABS: HEMOGLOBIN 13.1 g/dl (12.0-15.5); MEAN CORPUSCULAR HEMOGLOBIN 29.1 pg (27.0-33.0); MEAN CORPUSCULAR HGB CONC 30.5 g/dl (32.0-36.5); MEAN CORPUSCULAR VOLUME 95.6 fl (80.0-96.0); PLATELET COUNT, AUTOMATED 146 10^3/uL (150-450); WHITE BLOOD COUNT 6.7 10^3/uL (4.0-10.0)
--- NOTE | 2020-02-28 21:58 | ECGEPIP ---
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
[2020-02-28 22:37] LABS: ALBUMIN 3.9 GM/DL (3.2-5.2); BILIRUBIN,TOTAL 0.3 MG/DL (0.2-1.0); CALCIUM LEVEL 8.9 MG/DL (8.5-10.1); CREATININE FOR GFR 2.16 MG/DL (0.55-1.30); GLOMERULAR FILTRATION RATE 27.3 (>60); MAGNESIUM LEVEL 2.1 MG/DL (1.8-2.4); PHOSPHORUS LEVEL 4.2 MG/DL (2.5-4.9); POTASSIUM SERUM 4.5 MEQ/L (3.5-5.1); TOTAL PROTEIN 7.6 GM/DL (6.4-8.2)
[2020-02-28] MEDS ORDERED: NALOXONE INJ 0.4MG/1ML VIAL (J2310 PER 1MG) IV STA (22:40)
[2020-02-28] MEDS: busPIRone 5 MG TAB PO SCH (23:19)
[2020-02-28 23:36] LABS: APPEARANCE, URINE CLOUDY (CLEAR); BACTERIA, URINE AUTO 3+ (NEGATIVE); BILIRUBIN, URINE AUTO NEGATIVE (NEGATIVE); BLOOD, URINE BLOOD NEGATIVE (NEGATIVE); COLOR, URINE YELLOW (YELLOW); GLUCOSE, URINE (UA) AUTO NEGATIVE (NEGATIVE); KETONE, URINE AUTO NEGATIVE (NEGATIVE); LEUKOCYTE ESTERASE, URINE AUTO 1+ (NEGATIVE); MUCUS, URINE SMALL (NEGATIVE); NITRITE, URINE AUTO POSITIVE (NEGATIVE); PROTEIN, URINE AUTO NEGATIVE (NEGATIVE); RBC, URINE AUTO 1 /HPF (0-3); SPECIFIC GRAVITY URINE AUTO 1.016 (1.002-1.035); SQUAMOUS EPITHELIAL CELL UR AU 5 /HPF (0-6); TRANSITIONAL EPITHELIAL AUTO <1 /HPF; UROBILINOGEN, URINE AUTO 0.2 mg/dL (0.0-2.0); WBC, URINE AUTO 13 /HPF (0-3)
[2020-02-28 23:38] LABS: OSMOLALITY URINE 523 MOSM/KG (500-800)
[2020-02-28 23:57] LABS: SODIUM,RANDOM URINE 61 MEQ/L
[2020-02-29] VITALS (23 sets, daily range): BP systolic 110–139; BP diastolic 62–84; O2SAT 83–96
[2020-02-29] MEDS: NS 1,000 ML IV SCH ×5 (00:35→16:09)
[2020-02-29] MEDS: IPRATROPIUM 0.5MG/ALBUTEROL 2.5MG INH SOL UD 3ML (DUONEB) NEB SCH ×4 (01:16→19:41)
[2020-02-29 05:37] LABS: HEMATOCRIT 40.1 % (36.0-47.0); MEAN CORPUSCULAR HEMOGLOBIN 28.3 pg (27.0-33.0); MEAN CORPUSCULAR HGB CONC 29.9 g/dl (32.0-36.5); MEAN CORPUSCULAR VOLUME 94.6 fl (80.0-96.0); PLATELET COUNT, AUTOMATED 151 10^3/uL (150-450); RED BLOOD COUNT 4.24 10^6/uL (4.00-5.40); WHITE BLOOD COUNT 8.8 10^3/uL (4.0-10.0)
[2020-02-29] MEDS: LEVOTHYROXINE 150MCG TABLET (0.15MG) PO SCH (05:53)
[2020-02-29 05:55] LABS: CALCIUM LEVEL 8.4 MG/DL (8.5-10.1); CREATININE FOR GFR 1.87 MG/DL (0.55-1.30); GLOMERULAR FILTRATION RATE 32.3 (>60); MAGNESIUM LEVEL 2.2 MG/DL (1.8-2.4); POTASSIUM SERUM 4.2 MEQ/L (3.5-5.1)
[2020-02-29] MEDS ORDERED: ENOXAPARIN 30MG/0.3ML SYRINGE (J1650 PER 10MG) SC SCH (09:00)
[2020-02-29] MEDS ORDERED: ENOXAPARIN 120MG/0.8ML SYRINGE (J1650 PER 10MG) SC SCH (09:00)
[2020-02-29] MEDS: ESCITALOPRAM OXALATE 10 MG TAB (LEXAPRO) PO SCH (09:00)
[2020-02-29] MEDS: QUEtiapine FUMARATE 25 MG TAB PO SCH ×2 (09:00→20:15)
[2020-02-29] MEDS: GABAPENTIN 300 MG CAP PO SCH ×3 (09:00→20:15)
[2020-02-29] MEDS: buPROPion **XL** TABLET 150MG (WELLBUTRIN XL) PO SCH (09:00)
[2020-02-29] MEDS ORDERED: METHADONE 10 MG TAB (S0109) PO ONE (09:00)
[2020-02-29] MEDS: busPIRone 5 MG TAB PO SCH ×2 (09:00→20:15)
[2020-02-29] MEDS: methylPREDNISolone 125MG 2ML VIAL IV SCH ×3 (09:28→23:38)
--- NOTE | 2020-02-29 12:26 | IPNPDOC ---
Text Note Date of Service The patient was seen on 02/29/20. NOTE Subjective: Overnight patient developed severe hypoxia requiring oxygenation via VAPOTHERM. Patient continues to complain of dry cough. Objective: GENERAL APPEARANCE: Morbidly obese female HEENT: no scleral icterus, no JVD, EOMI CARDIOVASCULAR: S1S2 LUNGS: Diminished lung sounds bilaterally ABDOMEN: soft & not tender w palpitation MUSCULOSKELETAL: no cyanosis, no swelling INTEGUMENT: no generalized palor NEUROLOGICAL: cranial nerve function from 2-12 intact intact, follows commands, speech not dysarthric Assessment/Plan Patient is 39 years old female with past medical history of polysubstance drug abuse on methadone, sarcoidosis, smoking presented to the hospital with increased shortness of breath. Patient stated that she was tested positive for rhinoviral infection on 02/19/20 and for past 5-6 days she has been having increased cough with increased shortness of breath. Patient describes cough as dry and constant. Patient denied fever, chills, nausea, vomiting, diarrhea or dysuria. In emergency CT chest was done and showed Mild/early moderate bibasilar atelectasis and small consolidations with reactive adenopathy. Labs pertinent for creatinine 2.3, TSH 119, T4 0.19. Blood gas showed pH 7.3, oxygenation 46, CO2 51. Problems (1) Acute hypoxemic respiratory failure Blood gas showed acute hypoxemic respiratory failure most likely secondary to bronchiolitis due to upper respiratory viral infection superimposed with obstructive sleep apnea and obesity hypoventilation syndrome D-dimer came back elevated over 1000 Await VQ scan result Doppler ultrasound of lower extremities negative for DVT I started Lovenox for PE empirically Patient does not have leukocytosis, afebrile, pro-calcitonin negative Continue IV steroids Inhalers Incentive spirometry (2) Hypothyroidism Noncompliant with her medical regimen Patient has bradycardia Continue Levothyroxine by mouth daily (3) Substance abuse Continue methadone therapy (4) Sarcoidosis Patient noncompliant to treatment Follow-up with stemming machine operator in the outpatient settings (5) CASPER (acute kidney injury) Acute on chronic kidney injury Most likely secondary to dehydration IV fluid Continue to monitor VS,Fishbone, I+O VS, Fishbone, I+O Laboratory Tests 02/28/20 12:32 02/28/20 21:50 02/29/20 05:16 Vital Signs Date Time Temp Pulse Resp B/P (MAP) Pulse Ox O2 Delivery O2 Flow Rate FiO2 02/29/20 07:46 98.2 55 22 111/68 (82) 91 HVNI-Vapotherm 20.0 100 I&O- Last 24 Hours up to 6 AM 02/29/20 06:00 Intake Total 1930 ml Output Total 825 ml Balance 1105 ml BECKA MCKENZIE DO Feb 29, 2020 12:26
[2020-02-29 13:08] LABS: ABG BASE EXCESS 1.2 (-2.0-2.0); ABG HCO3 27.6 MEQ/L (22.0-26.0); ABG O2 SATURATION 90.2 % (95.0-99.0); ABG PARTIAL PRESSURE CO2 51.7 mmHg (35.0-45.0); ABG STANDARD HCO3 25.3 MEQ/L (22.0-26.0); ABG TOTAL CO2 29.2 MEQ/L (22.0-29.0); ABG pH (ARTERIAL) 7.346 UNITS (7.350-7.450)
--- NOTE | 2020-02-29 13:35 | REP ---
INDICATION: hypoxia/elevated cre. COMPARISON: Chest radiograph 02/28/2020. TECHNIQUE/RADIOTRACER AND DOSE: Following the intravenous administration of 5.4 mCi technetium 99 M tagged MAA and the inhalation of 1.0 mCi technetium 99 M DTPA aerosol, multiple images of the lung hess are obtained in various projections. FINDINGS: Prominent left ventricle causes a matching ventilation and perfusion defect in the left lung base. There is a small subsegmental matching ventilation and perfusion defect in the right lung base. I do not see any areas of V q mismatch. IMPRESSION: Low probability of pulmonary embolism. <Electronically signed by Levy Beasley > 02/29/20 [id number]
[2020-02-29 19:51] LABS: ABG BASE EXCESS 1.2 (-2.0-2.0); ABG HCO3 28.2 MEQ/L (22.0-26.0); ABG STANDARD HCO3 25.5 MEQ/L (22.0-26.0); ABG TOTAL CO2 29.8 MEQ/L (22.0-29.0); ABG pH (ARTERIAL) 7.327 UNITS (7.350-7.450)
[2020-03-01] VITALS (21 sets, daily range): BP systolic 109–135; BP diastolic 67–86; O2SAT 95–97
[2020-03-01] MEDS: IPRATROPIUM 0.5MG/ALBUTEROL 2.5MG INH SOL UD 3ML (DUONEB) NEB SCH ×4 (02:13→19:32)
[2020-03-01] MEDS: NS 1,000 ML IV SCH ×3 (02:17→15:57)
[2020-03-01] MEDS: LEVOTHYROXINE 150MCG TABLET (0.15MG) PO SCH (05:34)
[2020-03-01 05:52] LABS: ABG BASE EXCESS -2.8 (-2.0-2.0); ABG HCO3 23.2 MEQ/L (22.0-26.0); ABG O2 SATURATION 96.9 % (95.0-99.0); ABG PARTIAL PRESSURE CO2 45.2 mmHg (35.0-45.0); ABG PARTIAL PRESSURE O2 91.2 mmHg (75.0-100.0); ABG STANDARD HCO3 22.1 MEQ/L (22.0-26.0); ABG TOTAL CO2 24.6 MEQ/L (22.0-29.0); ABG pH (ARTERIAL) 7.328 UNITS (7.350-7.450)
[2020-03-01 05:53] LABS: HEMATOCRIT 35.7 % (36.0-47.0); HEMOGLOBIN 10.6 g/dl (12.0-15.5); MEAN CORPUSCULAR HEMOGLOBIN 28.6 pg (27.0-33.0); MEAN CORPUSCULAR HGB CONC 29.7 g/dl (32.0-36.5); MEAN CORPUSCULAR VOLUME 96.2 fl (80.0-96.0); PLATELET COUNT, AUTOMATED 115 10^3/uL (150-450); RED BLOOD COUNT 3.71 10^6/uL (4.00-5.40); WHITE BLOOD COUNT 8.9 10^3/uL (4.0-10.0)
[2020-03-01 06:10] LABS: CALCIUM LEVEL 7.8 MG/DL (8.5-10.1); CREATININE FOR GFR 1.55 MG/DL (0.55-1.30); GLOMERULAR FILTRATION RATE 40.1 (>60); POTASSIUM SERUM 4.2 MEQ/L (3.5-5.1)
[2020-03-01 06:58] LABS: LYMPHOCYTES 6 % (16-44); METAMYELOCYTES 1 % (0-0); MONOCYTES 5 % (0-5); NEUTROPHILS 88 % (28-66)
[2020-03-01 06:59] LABS: PLATELET ESTIMATE DECREASED (NORMAL)
[2020-03-01 08:13] LABS: FREE THYROXINE INDEX 0.7 % (1.3-4.8); THYROID STIMULATING HORMONE 97.9 uIU/ML (0.358-3.740); THYROXINE (T4) 2.4 UG/DL (4.5-12.0)
[2020-03-01] MEDS: ESCITALOPRAM OXALATE 10 MG TAB (LEXAPRO) PO SCH (08:42)
[2020-03-01] MEDS: buPROPion **XL** TABLET 150MG (WELLBUTRIN XL) PO SCH (08:42)
[2020-03-01] MEDS: GABAPENTIN 300 MG CAP PO SCH ×2 (08:42→15:57)
[2020-03-01] MEDS: QUEtiapine FUMARATE 25 MG TAB PO SCH ×2 (08:42→20:34)
[2020-03-01] MEDS: busPIRone 5 MG TAB PO SCH ×2 (08:42→20:34)
[2020-03-01] MEDS: ENOXAPARIN 40MG/0.4ML SYRINGE (J1650 PER 10MG) SC SCH (08:43)
[2020-03-01] MEDS ORDERED: METHADONE 10 MG TAB (S0109) PO SCH ×2 (09:00)
[2020-03-01] MEDS ORDERED: predniSONE 20 MG TAB PO SCH (09:00)
--- NOTE | 2020-03-01 10:34 | IPNPDOC ---
Text Note Date of Service The patient was seen on 03/01/20. NOTE Subjective: Patient was on the BiPAP overnight. No fever, chills, nausea, v omiting, diarrhea or dysuria Objective: GENERAL APPEARANCE: Morbidly obese female HEENT: no scleral icterus, no JVD, EOMI CARDIOVASCULAR: S1S2 LUNGS: Diminished lung sounds bilaterally ABDOMEN: soft & not tender w palpitation MUSCULOSKELETAL: no cyanosis, no swelling INTEGUMENT: no generalized palor NEUROLOGICAL: cranial nerve function from 2-12 intact intact, follows commands, speech not dysarthric Assessment/Plan Patient is 39 years old female with past medical history of polysubstance drug abuse on methadone, sarcoidosis, smoking presented to the hospital with increased shortness of breath. Patient stated that she was tested positive for rhinoviral infection on 02/19/20 and for past 5-6 days she has been having increased cough with increased shortness of breath. Patient describes cough as dry and constant. Patient denied fever, chills, nausea, vomiting, diarrhea or dysuria. In emergency CT chest was done and showed Mild/early moderate bibasilar atelectasis and small consolidations with reactive adenopathy. Labs pertinent for creatinine 2.3, TSH 119, T4 0.19. Blood gas showed pH 7.3, oxygenation 46, CO2 51. Problems (1) Acute hypoxemic respiratory failure Blood gas showed acute hypoxemic respiratory failure most likely secondary to bronchiolitis due to upper respiratory viral infection superimposed with obstructive sleep apnea and obesity hypoventilation syndrome. D-dimer came back elevated over 1000 VQ scan result negative for PE Doppler ultrasound of lower extremities negative for DVT DC Lovenox Patient does not have leukocytosis, afebrile, pro-calcitonin negative By mouth prednisone Inhalers Incentive spirometry Appreciate/agree with branch manager trainee consult (2) Hypothyroidism Noncompliant with her medical regimen Patient had bradycardia Continue Levothyroxine by mouth daily (3) Substance abuse Continue methadone therapy (4) Sarcoidosis Patient noncompliant to treatment Follow-up with branch manager trainee in the outpatient settings (5) CASPER (acute kidney injury) Improved Acute on chronic kidney injury Most likely secondary to dehydration IV fluid Continue to monitor VS,Fishbone, I+O VS, Fishbone, I+O Laboratory Tests 03/01/20 05:41 Vital Signs Date Time Temp Pulse Resp B/P (MAP) Pulse Ox O2 Delivery O2 Flow Rate FiO2 03/01/20 08:00 97.4 57 19 135/86 (102) 93 NIPPV (BIPAP/CPAP) 80 02/29/20 16:00 8.0 I&O- Last 24 Hours up to 6 AM 03/01/20 06:00 Intake Total 2460 ml Output Total 600 ml Balance 1860 ml BECKA MCKENZIE DO Mar 01, 2020 10:34
[2020-03-01] MEDS ORDERED: LEVOTHYROXINE 100MCG (0.1MG) VIAL IV ONE (13:30)
[2020-03-01 15:56] LABS: ABG BASE EXCESS -1.7 (-2.0-2.0); ABG HCO3 25.1 MEQ/L (22.0-26.0); ABG O2 SATURATION 95.4 % (95.0-99.0); ABG PARTIAL PRESSURE CO2 51.5 mmHg (35.0-45.0); ABG PARTIAL PRESSURE O2 80.4 mmHg (75.0-100.0); ABG TOTAL CO2 26.7 MEQ/L (22.0-29.0); ABG pH (ARTERIAL) 7.306 UNITS (7.350-7.450)
[2020-03-01 18:29] LABS: ABG BASE EXCESS 0.2 (-2.0-2.0); ABG HCO3 26.8 MEQ/L (22.0-26.0); ABG O2 SATURATION 96.6 % (95.0-99.0); ABG PARTIAL PRESSURE CO2 52.4 mmHg (35.0-45.0); ABG STANDARD HCO3 24.6 MEQ/L (22.0-26.0); ABG TOTAL CO2 28.4 MEQ/L (22.0-29.0); ABG pH (ARTERIAL) 7.327 UNITS (7.350-7.450)
[2020-03-02] VITALS (17 sets, daily range): BP systolic 128–142; BP diastolic 66–90; O2SAT 92–100
[2020-03-02] MEDS: IPRATROPIUM 0.5MG/ALBUTEROL 2.5MG INH SOL UD 3ML (DUONEB) NEB SCH ×4 (01:55→20:36)
[2020-03-02 05:29] LABS: HEMATOCRIT 35.6 % (36.0-47.0); HEMOGLOBIN 10.7 g/dl (12.0-15.5); MEAN CORPUSCULAR HEMOGLOBIN 29.3 pg (27.0-33.0); MEAN CORPUSCULAR HGB CONC 30.1 g/dl (32.0-36.5); MEAN CORPUSCULAR VOLUME 97.5 fl (80.0-96.0); PLATELET COUNT, AUTOMATED 106 10^3/uL (150-450); RED BLOOD COUNT 3.65 10^6/uL (4.00-5.40); WHITE BLOOD COUNT 6.5 10^3/uL (4.0-10.0)
[2020-03-02 05:56] LABS: ABG BASE EXCESS -1.5 (-2.0-2.0); ABG HCO3 24.2 MEQ/L (22.0-26.0); ABG O2 SATURATION 98.7 % (95.0-99.0); ABG PARTIAL PRESSURE CO2 44.4 mmHg (35.0-45.0); ABG PARTIAL PRESSURE O2 122.6 mmHg (75.0-100.0); ABG STANDARD HCO3 23.3 MEQ/L (22.0-26.0); ABG TOTAL CO2 25.5 MEQ/L (22.0-29.0); ABG pH (ARTERIAL) 7.354 UNITS (7.350-7.450)
[2020-03-02] MEDS: LEVOTHYROXINE 150MCG TABLET (0.15MG) PO SCH (06:06)
[2020-03-02] MEDS: ACETAMINOPHEN TAB 650MG DOSE (2X325MG) PO PRN ×3 (06:07→22:19)
[2020-03-02 06:12] LABS: CALCIUM LEVEL 7.6 MG/DL (8.5-10.1); CREATININE FOR GFR 1.39 MG/DL (0.55-1.30); GLOMERULAR FILTRATION RATE 45.4 (>60); MAGNESIUM LEVEL 2.2 MG/DL (1.8-2.4); POTASSIUM SERUM 3.8 MEQ/L (3.5-5.1)
[2020-03-02] MEDS: QUEtiapine FUMARATE 25 MG TAB PO SCH ×2 (08:02→21:00)
[2020-03-02] MEDS: ESCITALOPRAM OXALATE 10 MG TAB (LEXAPRO) PO SCH (08:02)
[2020-03-02] MEDS: METHADONE 10 MG TAB (S0109) PO SCH (08:02)
[2020-03-02] MEDS: GABAPENTIN 300 MG CAP PO SCH (08:02)
[2020-03-02] MEDS: busPIRone 5 MG TAB PO SCH ×2 (08:02→21:00)
[2020-03-02] MEDS: buPROPion **XL** TABLET 150MG (WELLBUTRIN XL) PO SCH (08:03)
[2020-03-02] MEDS: NS 1,000 ML IV SCH ×2 (08:04)
[2020-03-02] MEDS: ENOXAPARIN 40MG/0.4ML SYRINGE (J1650 PER 10MG) SC SCH (08:04)
[2020-03-02 09:27] LABS: FREE THYROXINE INDEX 1.1 % (1.3-4.8); THYROXINE (T4) 3.5 UG/DL (4.5-12.0)
--- NOTE | 2020-03-02 11:17 | IPNPDOC ---
Text Note Date of Service The patient was seen on 03/02/20. NOTE Subjective: Patient was on the BiPAP overnight. Patient stated that she feels better today. In the morning we switched to BiPAP to Vapotherm therapy Objective: GENERAL APPEARANCE: Morbidly obese female HEENT: no scleral icterus, no JVD, EOMI CARDIOVASCULAR: S1S2 LUNGS: Diminished lung sounds bilaterally ABDOMEN: soft & not tender w palpitation MUSCULOSKELETAL: no cyanosis, no swelling INTEGUMENT: no generalized palor NEUROLOGICAL: cranial nerve function from 2-12 intact intact, follows commands, speech not dysarthric Assessment/Plan Patient is 39 years old female with past medical history of polysubstance drug abuse on methadone, sarcoidosis, smoking presented to the hospital with increased shortness of breath. Patient stated that she was tested positive for rhinoviral infection on 02/19/20 and for past 5-6 days she has been having increased cough with increased shortness of breath. Patient describes cough as dry and constant. Patient denied fever, chills, nausea, vomiting, diarrhea or dysuria. In emergency CT chest was done and showed Mild/early moderate bibasilar atelectasis and small consolidations with reactive adenopathy. Labs pertinent for creatinine 2.3, TSH 119, T4 0.19. Blood gas showed pH 7.3, oxygenation 46, CO2 51. Problems (1) Acute hypoxemic respiratory failure Blood gas showed acute hypoxemic respiratory failure most likely secondary to bronchiolitis due to upper respiratory viral infection superimposed with obstructive sleep apnea and obesity hypoventilation syndrome. Also patient was on the high dose of methadone which can decrease respiratory drive D-dimer came back elevated over 1000 VQ scan result negative for PE Doppler ultrasound of lower extremities negative for DVT DC therapeutic dose of Lovenox Patient does not have leukocytosis, afebrile, pro-calcitonin negative DC prednisone Inhalers Incentive spirometry Continue BiPAP overnight and Vapotherm during the daytime (2) Hypothyroidism Noncompliant with her medical regimen Patient had bradycardia Continue Levothyroxine by mouth daily Levothyroxine IV (3) Substance abuse Titrated down methadone (4) Sarcoidosis Diagnosis of sarcoidosis has never been confirmed according to records in pulmonology office I discussed it with Dr. Botello yesterday. Most likely patient developed non granulomatous changes secondary to inhaled cocaine Steroids were discontinued (5) CASPER (acute kidney injury) Improved Acute on chronic kidney injury Most likely secondary to dehydration IV fluid Continue to monitor VS,Fishbone, I+O VS, Fishbone, I+O Laboratory Tests 03/02/20 05:17 Vital Signs Date Time Temp Pulse Resp B/P (MAP) Pulse Ox O2 Delivery O2 Flow Rate FiO2 03/02/20 09:30 94 HVNI-Vapotherm 30.0 70 03/02/20 09:00 62 03/02/20 08:00 97.6 18 136/66 (89) I&O- Last 24 Hours up to 6 AM 03/02/20 05:59 Intake Total 2400 ml Output Total 1200 ml Balance 1200 ml BECKA MCKENZIE DO Mar 02, 2020 11:17
[2020-03-02] MEDS: LEVOTHYROXINE 100MCG (0.1MG) VIAL IV SCH (12:00)
--- NOTE | 2020-03-02 13:12 | ECHO ---
DATE OF PROCEDURE: 02/29/2020 Age: 39 Gender: Female Height: 160 cm Weight: 106 kg REFERRING PHYSICIAN: Saúl Lisa DO INDICATION: Dyspnea. MEASUREMENTS: IVS 1.1 cm LV 5.9 cm LVPW 0.9 cm LA 4.2 cm Aorta 3.6 cm RV 2.6 cm IVC 1.6 cm Mitral E wave velocity 74, A wave 47 E prime septal 7.1, E prime lateral 9.6 FINDINGS: This study is of limited technical quality with very difficult visualization. Parasternal views are relatively acceptable, but apical and subcostal are virtually nonexistent. Left ventricle is dilated. I assume grossly normal or near normal systolic function, but based on very limited views, and this should not be considered completely reliable. Right ventricle was poorly visualized, but does not appear grossly enlarged. The left atrium is mildly enlarged. The right atrium was not well seen. The aortic, mitral, tricuspid, and pulmonic valves were all reasonably well seen and appear structurally intact. Trace pericardial effusion is noted. Inferior vena cava is of normal size. Aortic root appears normal. Aortic arch and abdominal aorta were not well seen. Doppler interrogation reveals competent aortic, mitral, and tricuspid valves. Trace pulmonic insufficiency is seen. Mitral inflow pattern and tissue Doppler imaging of mitral annulus reveal likely normal diastolic function. CONCLUSIONS: 1. Study is of markedly limited technical quality. Underlying sinus rhythm. 2. Mildly dilated left ventricle, probably normal or near normal left ventricular (LV) systolic function based on limited views and normal diastolic function. 3. No significant valvular disease. 4. Trace pericardial effusion. 5. Likely normal central venous pressure, but unable to estimate pulmonary artery pressure. [facility]
[2020-03-03] VITALS (15 sets, daily range): BP systolic 126–174; BP diastolic 70–95; O2SAT 90–99
[2020-03-03] MEDS: IPRATROPIUM 0.5MG/ALBUTEROL 2.5MG INH SOL UD 3ML (DUONEB) NEB SCH ×4 (01:59→19:51)
[2020-03-03 04:39] LABS: HEMATOCRIT 38.3 % (36.0-47.0); HEMOGLOBIN 11.6 g/dl (12.0-15.5); MEAN CORPUSCULAR HEMOGLOBIN 29.1 pg (27.0-33.0); MEAN CORPUSCULAR HGB CONC 30.3 g/dl (32.0-36.5); PLATELET COUNT, AUTOMATED 111 10^3/uL (150-450); RED BLOOD COUNT 3.99 10^6/uL (4.00-5.40); WHITE BLOOD COUNT 4.7 10^3/uL (4.0-10.0)
[2020-03-03 05:11] LABS: CREATININE FOR GFR 1.48 MG/DL (0.55-1.30); GLOMERULAR FILTRATION RATE 42.2 (>60); MAGNESIUM LEVEL 2.1 MG/DL (1.8-2.4); POTASSIUM SERUM 3.6 MEQ/L (3.5-5.1)
[2020-03-03 08:21] LABS: FREE THYROXINE INDEX 1.6 % (1.3-4.8); THYROXINE (T4) 5.2 UG/DL (4.5-12.0)
[2020-03-03] MEDS ORDERED: POTASSIUM CHLORIDE 10 MEQ SR TABLET PO ONE (09:00)
[2020-03-03] MEDS: LEVOTHYROXINE 100MCG (0.1MG) VIAL IV SCH (09:08)
[2020-03-03] MEDS: METHADONE 10 MG TAB (S0109) PO SCH (09:08)
[2020-03-03] MEDS: GABAPENTIN 300 MG CAP PO SCH (09:08)
[2020-03-03] MEDS: ENOXAPARIN 40MG/0.4ML SYRINGE (J1650 PER 10MG) SC SCH (09:08)
[2020-03-03] MEDS: busPIRone 5 MG TAB PO SCH ×2 (09:08→20:11)
[2020-03-03] MEDS: buPROPion **XL** TABLET 150MG (WELLBUTRIN XL) PO SCH (09:09)
[2020-03-03] MEDS: ESCITALOPRAM OXALATE 10 MG TAB (LEXAPRO) PO SCH (09:09)
[2020-03-03] MEDS: QUEtiapine FUMARATE 25 MG TAB PO SCH ×2 (09:09→20:11)
--- NOTE | 2020-03-03 09:25 | IPNPDOC ---
Text Note Date of Service The patient was seen on 03/03/20. NOTE Subjective: Patient stated that her breathing improved. Patient insisted that she needed her previous dose of methadone because she afraid of withdrawal. Objective: GENERAL APPEARANCE: Morbidly obese female HEENT: no scleral icterus, no JVD, EOMI CARDIOVASCULAR: S1S2 LUNGS: Diminished lung sounds bilaterally ABDOMEN: soft & not tender w palpitation MUSCULOSKELETAL: no cyanosis, no swelling INTEGUMENT: no generalized palor NEUROLOGICAL: cranial nerve function from 2-12 intact intact, follows commands, speech not dysarthric Assessment/Plan Patient is 39 years old female with past medical history of polysubstance drug abuse on methadone, sarcoidosis, smoking presented to the hospital with increased shortness of breath. Patient stated that she was tested positive for rhinoviral infection on 02/19/20 and for past 5-6 days she has been having increased cough with increased shortness of breath. Patient describes cough as dry and constant. Patient denied fever, chills, nausea, vomiting, diarrhea or dysuria. In emergency CT chest was done and showed Mild/early moderate bibasilar atelectasis and small consolidations with reactive adenopathy. Labs pertinent for creatinine 2.3, TSH 119, T4 0.19. Blood gas showed pH 7.3, oxygenation 46, CO2 51. Problems (1) Acute hypoxemic respiratory failure Blood gas showed acute hypoxemic respiratory failure most likely secondary to bronchiolitis due to upper respiratory viral infection superimposed with obstruc tive sleep apnea and obesity hypoventilation syndrome. Also patient was on the high dose of methadone which can decrease respiratory drive D-dimer came back elevated over 1000 VQ scan result negative for PE Doppler ultrasound of lower extremities negative for DVT DC therapeutic dose of Lovenox Patient does not have leukocytosis, afebrile, pro-calcitonin negative DC prednisone Inhalers Incentive spirometry Continue BiPAP overnight and Vapotherm during the daytime (2) Hypothyroidism Noncompliant with her medical regimen Patient had bradycardia Continue Levothyroxine by mouth daily (3) Substance abuse Titrated down methadone (4) Sarcoidosis Diagnosis of sarcoidosis has never been confirmed according to records in pulmonology office I discussed it with Dr. Botello. Most likely patient developed non granulomatous changes secondary to inhaled cocaine Steroids were discontinued (5) CASPER (acute kidney injury) Improved Acute on chronic kidney injury Most likely secondary to dehydration IV fluid Continue to monitor VS,Fishbone, I+O VS, Fishbone, I+O Laboratory Tests 03/03/20 04:32 Vital Signs Date Time Temp Pulse Resp B/P (MAP) Pulse Ox O2 Delivery O2 Flow Rate FiO2 03/03/20 07:25 50 03/03/20 06:00 97 BIPAP/CPAP 03/03/20 04:00 97.3 53 15 174/70 (104) 03/02/20 20:38 30.0 I&O- Last 24 Hours up to 6 AM 03/03/20 06:00 Intake Total 300 ml Output Total 2250 ml Balance -1950 ml BECKA MCKENZIE DO Mar 03, 2020 09:25
[2020-03-03] MEDS: SENOKOT S TAB PO SCH ×2 (11:38→20:11)
[2020-03-04] VITALS (12 sets, daily range): BP systolic 111–148; BP diastolic 56–93; O2SAT 95–98
[2020-03-04] MEDS: IPRATROPIUM 0.5MG/ALBUTEROL 2.5MG INH SOL UD 3ML (DUONEB) NEB SCH ×4 (01:42→19:36)
[2020-03-04 05:08] LABS: HEMATOCRIT 39.4 % (36.0-47.0); HEMOGLOBIN 11.9 g/dl (12.0-15.5); MEAN CORPUSCULAR HEMOGLOBIN 28.9 pg (27.0-33.0); MEAN CORPUSCULAR HGB CONC 30.2 g/dl (32.0-36.5); MEAN CORPUSCULAR VOLUME 95.6 fl (80.0-96.0); PLATELET COUNT, AUTOMATED 101 10^3/uL (150-450); RED BLOOD COUNT 4.12 10^6/uL (4.00-5.40); WHITE BLOOD COUNT 4.4 10^3/uL (4.0-10.0)
[2020-03-04 05:26] LABS: CALCIUM LEVEL 8.2 MG/DL (8.5-10.1); CREATININE FOR GFR 1.57 MG/DL (0.55-1.30); GLOMERULAR FILTRATION RATE 39.5 (>60); MAGNESIUM LEVEL 2.1 MG/DL (1.8-2.4); POTASSIUM SERUM 3.8 MEQ/L (3.5-5.1)
[2020-03-04] MEDS: LEVOTHYROXINE 150MCG TABLET (0.15MG) PO SCH (06:12)
[2020-03-04] MEDS: QUEtiapine FUMARATE 25 MG TAB PO SCH ×2 (09:10→20:02)
[2020-03-04] MEDS: METHADONE 10 MG TAB (S0109) PO SCH (09:10)
[2020-03-04] MEDS: busPIRone 5 MG TAB PO SCH ×2 (09:10→20:02)
[2020-03-04] MEDS: SENOKOT S TAB PO SCH ×2 (09:10→20:03)
[2020-03-04] MEDS: ENOXAPARIN 40MG/0.4ML SYRINGE (J1650 PER 10MG) SC SCH (09:11)
[2020-03-04] MEDS: buPROPion **XL** TABLET 150MG (WELLBUTRIN XL) PO SCH (09:11)
[2020-03-04] MEDS: GABAPENTIN 300 MG CAP PO SCH (09:11)
[2020-03-04] MEDS: ESCITALOPRAM OXALATE 10 MG TAB (LEXAPRO) PO SCH (09:11)
--- NOTE | 2020-03-04 09:40 | IPNPDOC ---
Text Note Date of Service The patient was seen on 03/04/20. NOTE Subjective: Patient stated that she is doing much better. Patient was on the room air with good oxygen saturation Objective: GENERAL APPEARANCE: Morbidly obese female HEENT: no scleral icterus, no JVD, EOMI CARDIOVASCULAR: S1S2 LUNGS: Diminished lung sounds bilaterally ABDOMEN: soft & not tender w palpitation MUSCULOSKELETAL: no cyanosis, no swelling INTEGUMENT: no generalized palor NEUROLOGICAL: cranial nerve function from 2-12 intact intact, follows commands, speech not dysarthric Assessment/Plan Patient is 39 years old female with past medical history of polysubstance drug abuse on methadone, sarcoidosis, smoking presented to the hospital with increased shortness of breath. Patient stated that she was tested positive for rhinoviral infection on 02/19/20 and for past 5-6 days she has been having increased cough with increased shortness of breath. Patient describes cough as dry and constant. Patient denied fever, chills, nausea, vomiting, diarrhea or dysuria. In emergency CT chest was done and showed Mild/early moderate bibasilar atelectasis and small consolidations with reactive adenopathy. Labs pertinent for creatinine 2.3, TSH 119, T4 0.19. Blood gas showed pH 7.3, oxygenation 46, CO2 51. Problems (1) Acute hypoxemic respiratory failure Blood gas showed acute hypoxemic respiratory failure most likely secondary to bronchiolitis due to upper respiratory viral infection superimposed with obstructive sleep apnea and obesity hypoventilation syndrome. Also patient was on the high dose of methadone which can decrease respiratory drive D-dimer came back elevated over 1000 VQ scan result negative for PE Doppler ultrasound of lower extremities negative for DVT DC therapeutic dose of Lovenox Patient does not have leukocytosis, afebrile, pro-calcitonin negative DC prednisone Inhalers Incentive spirometry I will talk to methadone clinic in order to adjust the dose methadone Appreciate/agree with psych consult (2) Hypothyroidism Noncompliant with her medical regimen Patient had bradycardia Continue Levothyroxine by mouth daily (3) Substance abuse Titrated down methadone (4) Sarcoidosis Diagnosis of sarcoidosis has never been confirmed according to records in pulmonology office I discussed it with Dr. Botello. Most likely patient developed non granulomatous changes secondary to inhaled cocaine Steroids were discontinued (5) CASPER (acute kidney injury) Improved Acute on chronic kidney injury Most likely secondary to dehydration IV fluid Continue to monitor VS,Fishbone, I+O VS, Fishbone, I+O Laboratory Tests 03/04/20 04:49 03/04/20 04:50 Vital Signs Date Time Temp Pulse Resp B/P (MAP) Pulse Ox O2 Delivery O2 Flow Rate FiO2 03/04/20 08:00 97.6 60 20 147/89 (108) 98 Room Air 03/04/20 04:00 6.0 03/03/20 08:00 45 I&O- Last 24 Hours up to 6 AM 03/04/20 06:00 Intake Total 360 ml Output Total 1500 ml Balance -1140 ml BECKA MCKENZIE DO Mar 04, 2020 09:40
--- NOTE | 2020-03-04 11:25 | MHCRPDOC ---
[facility] Consultation Consultation DATE OF CONSULTATION: 03/04/20 CONSULTATION REQUESTED BY internal medicine service REASON FOR CONSULTATION: methadone oversedation RELEVANT HISTORY: the patient a 39-year-old woman with a long history of anxiety and inpatient admissions as well as methadone use presents to the [facility] with acute respiratory failure. Her methadone appears to be too much and had been lowered with positive effects on her respiration, she recently had been placed on gabapentin as well. The patient reports that she had been having the gabapentin for anxiety, but notes that it's not as helpful and it makes it so her methadone oversedated her and makes her dizzy and fall. She's willing to come to the inpatient mental health unit for medication adjustment noticing that her anxiety and panic has continued to increase. She has been taking her thyroid medications which has additionally made her feel more depressed. PAST PSYCHIATRIC HISTORY: long history of inpatient admissions primarily interested be depression and anxiety, last roughly a month or 2 ago, overdose is primarily appear to be accidental nature related to substance use PAST MEDICAL HISTORY:, thyroid disorder, poorly treated patient noncompliant with her medications FAMILY HISTORY: no significant changes from previous admission PERSONAL AND SOCIAL HISTORY: The patient was born and raised in [place]. Resides in: [place] Marital Status: S Single Children: denies Employment: unemployed SUBSTANCE ABUSE HISTORY: Smoking: smokes tobacco regularly ETOH:. Denies Illicit Drugs: on methadone maintenance for opioid use problems LEGAL HISTORY: none elicited . MENTAL STATUS EXAMINATION: General: [Well dressed with good hygiene] Speech: [Spontaneous and fluid] Thought processes: [Linear and logical] Thought content: [Future orientated] Abstract reasoning, and computation: [Intact] Description of associations: [Intact] Description of abnormal or psychotic thoughts:[Denies any suicidal or homicidal ideation. Denies any auditory or visual hallucinations. Does not appear to be responding to internal stimuli. Does not appear to be endorsing any bizarre or paranoid ideation.] Judgment: [fair] Insight: [fair] Orientation: [Alert and orientated 3] Recent and remote memory: [Intact] Attention span and concentration: [Intact] Fund of knowledge: [Adequate] Mood: ["okay"] Affect: anxious DIAGNOSIS: 1., Unspecified, anxiety/depression. PLAN: 1. Recommend lowering gabapentin, continue methadone at current dose by hospitalist, likely, gabapentin is creating a high serum level of methadone,. 2. Inpatient admission to address gabapentin, alternative anxiety treatment, patient amenable. HISTORY: . PAST PSYCHIATRIC HISTORY: PAST MEDICAL HISTORY: FAMILY HISTORY: Mother: Father: Siblings: Children: PERSONAL AND SOCIAL HISTORY: The patient was born and raised in [place]. Resides in: [place] Marital Status: S Single Children: Employment: SUBSTANCE ABUSE HISTORY: Smoking: ETOH: Illicit Drugs: LEGAL HISTORY: . MENTAL STATUS EXAMINATION: Patient is a [AGE]-year old female, who is . Speech is . Language skills are . Thought processes including: . Thought content: . Abstract reasoning, and computation: . Description of associations: . Description of abnormal or psychotic thoughts: . Judgment: . Insight: . Orientation to . Recent and remote memory: . Attention span and concentration: . Language: . Fund of knowledge: . Mood: . Affect: . DIAGNOSIS: 1. . PLAN: 1. . 2. . Vital Signs Vital Signs Date Time Temp Pulse Resp B/P (MAP) Pulse Ox O2 Delivery O2 Flow Rate FiO2 03/04/20 08:00 97.6 60 20 147/89 (108) 98 Room Air 03/04/20 04:00 6.0 03/03/20 08:00 45 Laboratory Data 24H Labs Laboratory Tests 2 03/04/20 04:49: Anion Gap 4L, Glomerular Filtration Rate 39.5L, Calcium Level 8.2L, Magnesium Level 2.1 03/04/20 04:50: Nucleated Red Blood Cells % (auto) 0.0 Home Medications Current Medications Current Medications Medications (Trade) Dose Ordered Sig/[place] Route PRN Reason Start Time Stop Time Status Last Admin Dose Admin Acetaminophen (Tylenol Tab) 650 mg Q4H PRN PO PAIN OR FEVER 02/28/20 16:15 03/02/20 22:19 Albuterol/ Ipratropium (Combivent Respimat 100-20mcg) 2 puff STAT STAT INH 02/28/20 11:01 02/28/20 11:04 DC 02/28/20 11:52 Albuterol/ Ipratropium (Duoneb (Ipr 0.5mg/Alb 2.5mg)) 3 ml RQ6H NEB 02/28/20 20:00 03/04/20 07:11 Bupropion HCl (Wellbutrin Xl) 300 mg DAILY PO 02/29/20 09:00 03/04/20 09:11 Buspirone HCl (Buspar) 5 mg BID PO 02/28/20 21:00 03/04/20 09:10 Enoxaparin Sodium (Lovenox) 30 mg DAILY SC 02/29/20 09:00 02/29/20 08:10 DC Enoxaparin Sodium (Lovenox) 40 mg DAILY SC 03/01/20 09:00 03/04/20 09:11 Enoxaparin Sodium (Lovenox) 110 mg Q12H SC 02/29/20 09:00 02/29/20 16:57 DC 02/29/20 09:29 Escitalopram Oxalate (Lexapro) 30 mg DAILY PO 02/29/20 09:00 03/04/20 09:11 Gabapentin (Neurontin) 300 mg DAILY PO 03/02/20 09:00 03/04/20 09:11 Gabapentin (Neurontin) 300 mg TID PO 02/28/20 21:00 03/01/20 16:51 DC 03/01/20 15:57 Gabapentin (Neurontin) 800 mg TID PO 02/28/20 21:00 02/28/20 17:46 DC Home Med (Med Rec Complete!) ASDIRECTED XX 02/28/20 15:45 02/28/20 15:42 DC Home Med (Med Rec Complete!) ASDIRECTED XX 02/29/20 06:45 02/29/20 06:40 DC Levothyroxine Sodium (Synthroid) 100 mcg DAILY IV 03/02/20 12:00 03/03/20 09:00 DC 03/03/20 09:08 Levothyroxine Sodium (Synthroid) 150 mcg DAILY@06 PO 02/29/20 06:00 03/04/20 06:12 Methadone HCl (Dolophine) 60 mg DAILY PO 03/02/20 09:00 03/04/20 09:10 Methadone HCl (Dolophine) 80 mg DAILY PO 03/01/20 09:00 03/01/20 13:28 DC 03/01/20 08:43 Methadone HCl (Dolophine) 140 mg DAILY PO 03/01/20 09:00 03/01/20 08:26 DC Methylprednisolone (SOLUmedrol) 80 mg Q8H IV 02/28/20 16:15 03/01/20 07:32 DC 02/29/20 23:38 Naloxone HCl (Narcan) 0.2 mg STAT STAT IV 02/28/20 22:40 02/28/20 22:43 DC 02/28/20 22:48 Prednisone (Deltasone) 40 mg DAILY PO 03/01/20 09:00 03/01/20 13:24 DC 03/01/20 08:42 Quetiapine Fumarate (SEROquel) 25 mg BID PO 02/28/20 21:00 03/04/20 09:10 Senna/Docusate Sodium (Senokot S) 1 tab BID PO 03/03/20 09:00 03/04/20 09:10 Sodium Chloride 1,000 ml @ 120 mls/hr Q8H20M IV 02/28/20 16:15 03/02/20 09:28 DC 03/02/20 08:04 Sodium Chloride 1,000 ml @ 250 mls/hr Q4H IV 02/28/20 14:00 02/29/20 08:04 DC 02/28/20 14:51 Scheduled Bupropion HCl (Bupropion Xl) 300 Mg Tab.er.24h, 300 MG PO DAILY, (Reported) Buspirone HCl (Buspirone HCl) 5 Mg Tablet, 5 MG PO BID, (Reported) Escitalopram Oxalate (Escitalopram Oxalate) 10 Mg Tablet, 30 MG PO DAILY, (Reported) Methadone HCl (Methadone HCl) 10 Mg/1 Ml Oral.conc, 140 MG PO DAILY, (Reported) Quetiapine Fumarate (Quetiapine Fumarate) 25 Mg Tablet, 25 MG PO BID, (Reported) TAKES MORNING AND DINNERTIME Quetiapine Fumarate (Seroquel Xr) 150 Mg Tab.er.24h, 150 MG PO QHS, (Reported) Scheduled PRN Albuterol Sulfate (Albuterol Sulfate Hfa) 8.5 Gm Hfa.aer.ad, 2 PUFFS INH Q4H PRN for SHORTNESS OF BREATH, (Reported) Trazodone HCl (Trazodone HCl) 150 Mg Tablet, 150 MG PO QHS PRN for SLEEP, (Reported) Allergies Coded Allergies: No Known Allergies (Verified , 10/22/18) ADDIS ERNANDEZ DO Mar 04, 2020 11:25
[2020-03-05] MEDS: IPRATROPIUM 0.5MG/ALBUTEROL 2.5MG INH SOL UD 3ML (DUONEB) NEB SCH ×3 (00:36→15:02)
[2020-03-05 04:12] VITALS: BP 127/89
[2020-03-05] MEDS ORDERED: RAMELTEON 8 MG TAB (ROZEREM) PO PRN (04:45)
[2020-03-05] MEDS: LEVOTHYROXINE 150MCG TABLET (0.15MG) PO SCH (05:14)
[2020-03-05 06:54] LABS: HEMOGLOBIN 12.1 g/dl (12.0-15.5); MEAN CORPUSCULAR HEMOGLOBIN 28.8 pg (27.0-33.0); MEAN CORPUSCULAR VOLUME 92.9 fl (80.0-96.0); WHITE BLOOD COUNT 5.4 10^3/uL (4.0-10.0)
[2020-03-05 06:56] LABS: PLATELET COUNT, AUTOMATED 97 10^3/uL (150-450)
[2020-03-05 07:08] LABS: CALCIUM LEVEL 8.5 MG/DL (8.5-10.1); CREATININE FOR GFR 1.57 MG/DL (0.55-1.30); GLOMERULAR FILTRATION RATE 39.5 (>60); POTASSIUM SERUM 3.5 MEQ/L (3.5-5.1)
[2020-03-05 08:00] VITALS: O2SAT 93; O2SAT 99
[2020-03-05] MEDS: ENOXAPARIN 40MG/0.4ML SYRINGE (J1650 PER 10MG) SC SCH (08:46)
[2020-03-05] MEDS: METHADONE 10 MG TAB (S0109) PO SCH (08:46)
[2020-03-05] MEDS: SENOKOT S TAB PO SCH (08:47)
[2020-03-05] MEDS: buPROPion **XL** TABLET 150MG (WELLBUTRIN XL) PO SCH (08:47)
[2020-03-05] MEDS: ESCITALOPRAM OXALATE 10 MG TAB (LEXAPRO) PO SCH (08:47)
[2020-03-05] MEDS: GABAPENTIN 300 MG CAP PO SCH (08:47)
[2020-03-05] MEDS: busPIRone 5 MG TAB PO SCH (08:47)
[2020-03-05] MEDS: QUEtiapine FUMARATE 25 MG TAB PO SCH (08:47)
[2020-03-05] MEDS ORDERED: METHADONE 10 MG TAB (S0109) PO ONE (10:00)
--- NOTE | 2020-03-05 11:55 | DS.PDOC ---
Discharge Summary General Date of Admission Feb 28, 2020 at 16:01 Date of Discharge 03/05/20 Discharge Summary PROCEDURES PERFORMED DURING STAY: [None]. ADMITTING DIAGNOSES: Acute hypoxemic respiratory failure Hypothyroidism Substance abuse Sarcoidosis r/o CASPER (acute kidney injury) DISCHARGE DIAGNOSES: Acute hypoxemic respiratory failure Hypothyroidism Substance abuse Sarcoidosis r/o CASPER (acute kidney injury) COMPLICATIONS/CHIEF COMPLAINT: Hypothyroidism,Noncompliance With Med Regimen. HISTORY OF PRESENT ILLNESS: Patient is 39 years old female with past medical history of polysubstance drug abuse on methadone, sarcoidosis, smoking presented to the hospital with increased shortness of breath. Patient stated that she was tested positive for rhinoviral infection on 02/19/20 and for past 5-6 days she has been having increased cough with increased shortness of breath. Patient describes cough as dry and constant. Patient denied fever, chills, nausea, vomiting, diarrhea or dysuria. In emergency CT chest was done and showed Mild/early moderate bibasilar atelectasis and small consolidations with reactive adenopathy. Labs pertinent for creatinine 2.3, TSH 119, T4 0.19. Blood gas showed pH 7.3, oxygenation 46, CO2 51. HOSPITAL COURSE: During hospital stay following issue addressed (1) Acute hypoxemic respiratory failure Blood gas showed acute hypoxemic respiratory failure most likely secondary to bronchiolitis due to upper respiratory viral infection superimposed with obstructive sleep apnea and obesity hypoventilation syndrome. Also patient was on the high dose of methadone in top of high-dose of gabapentin which can decrease respiratory drive D-dimer came back elevated over 1000 VQ scan result negative for PE Doppler ultrasound of lower extremities negative for DVT DC therapeutic dose of Lovenox Patient does not have leukocytosis, afebrile, pro-calcitonin negative DC prednisone I Reduced the dose of gabapentin Methadone was tapered down to 60 mg Inhalers Incentive spirometry Psychiatrist team recommended to transfer patient to mental health unit (2) Hypothyroidism Noncompliant with her medical regimen Patient had bradycardia Continue Levothyroxine by mouth daily (3) Substance abuse Titrated down methadone (4) Sarcoidosis Diagnosis of sarcoidosis has never been confirmed according to records in pulmonology office I discussed it with Dr. Botello. Most likely patient developed non granulomatous changes secondary to inhaled cocaine Steroids were discontinued (5) CASPER (acute kidney injury) Improved Acute on chronic kidney injury Most likely secondary to dehydration IV fluid Continue to monitor DISCHARGE MEDICATIONS: Please see below. ALLERGIES: Please see below. PHYSICAL EXAMINATION ON DISCHARGE: VITAL SIGNS: Please see below. GENERAL APPEARANCE: Morbidly obese female HEENT: no scleral icterus, no JVD, EOMI CARDIOVASCULAR: S1S2 LUNGS: Diminished lung sounds bilaterally ABDOMEN: soft & not tender w palpitation MUSCULOSKELETAL: no cyanosis, no swelling INTEGUMENT: no generalized palor NEUROLOGICAL: cranial nerve function from 2-12 intact intact, follows commands, speech not dysarthric LABORATORY DATA: Please see below. IMAGING: [facility] NAME: EDWIN LARKIN DATE OF : 1980 AGE: 39 SEX: F REPORT #: [id number] ROOM: ED TECHNOLOGIST: [place] [id number] DOCTOR: Rosy Cary MD Ordered for Date&Time: 02/28/20 1505 cc: [~ rep ct ivnm] Service Date&Time: 02/28/20 1521 This report is in Signed status. If this report is in a DRAFT status it has not yet been reviewed by the radiologist for accuracy. Thank you for having your radiology procedures performed at [facility] RADIOLOGY REPORT Date&Time printed: [~ rep prt dt last] [~ rep prt tm last] Page 2 of 2 [place] [address] RADIOLOGY REPORT This report is in Signed status. If this report is in a DRAFT status it has not yet been reviewed by the radiologist for accuracy. Thank you for having your radiology procedures performed at [facility] RADIOLOGY REPORT Date&Time printed: [~ rep prt dt last] [~ rep prt tm last] Page 1 of 1 None TECHNIQUE: Axial noncontrast images from the thoracic inlet to the upper abdomen with cor onal and sagittal reformations. This CT examination was performed using the following dose reduction techniques: Automated exposure control, adjustment of mA and/or kv according to the patient's size, and use of iterative reconstruction technique. FINDINGS: Mild/early moderate bibasilar atelectasis and small consolidations. Associated reactive mediastinal adenopathy noted. Tracheobronchial tree is patent. No effusion. No pneumothorax. Mediastinum demonstrates normal thoracic aorta and heart/pericardium. Visualized thyroid gland is unremarkable. Surrounding musculoskeletal structures are intact. Limited upper abdomen demonstrates normal bilateral adrenal glands and renal medullary nephrocalcinosis. IMPRESSION: 1. Mild/early moderate bibasilar atelectasis and small consolidations with reactive adenopathy. Correlation and follow-up to resolution recommended. <Electronically signed by Alvarado Muir > 02/28/201525 DD: Alvarado Muir MD 02/28/201523 DT: TEENA 02/28/201525 DS: ANUP 02/28/20152302/28/20 152 [~ rep ct labl] PROGNOSIS: Fair ACTIVITY: [As tolerated]. DIET: Regular DISCHARGE PLAN: Transfer to mental health unit ITEMS TO FOLLOWUP ON ON OUTPATIENT: Follow-up with psychiatrist and PCP DISCHARGE CONDITION: [Stable]. TIME SPENT ON DISCHARGE: Greater than 40 minutes. Vital Signs/I&Os Vital Signs Date Time Temp Pulse Resp B/P (MAP) Pulse Ox O2 Delivery O2 Flow Rate FiO2 03/05/20 08:00 99 Room Air 03/05/20 04:12 99.0 66 17 127/89 (102) 03/04/20 04:00 6.0 03/03/20 08:00 45 I&O- Last 24 Hours up to 6 AM0 03/05/20 06:00 Intake Total 1470 ml Output Total 0 ml Balance 1470 ml Laboratory Data Labs 24H Laboratory Tests 2 03/05/20 06:37: Nucleated Red Blood Cells % (auto) 0.4H, Immature Platelet Fraction 1.3, Anion Gap 7L, Glomerular Filtration Rate 39.5L, Calcium Level 8.5, Magnesium Level 2.0 CBC/BMP Laboratory Tests 03/05/20 06:37 Discharge Medications Scheduled Bupropion HCl (Bupropion Xl) 300 Mg Tab.er.24h, 300 MG PO DAILY, (Reported) Buspirone HCl (Buspirone HCl) 5 Mg Tablet, 5 MG PO BID, (Reported) Escitalopram Oxalate (Escitalopram Oxalate) 10 Mg Tablet, 30 MG PO DAILY, (Reported) Methadone HCl (Methadone HCl) 10 Mg/1 Ml Oral.conc, 140 MG PO DAILY, (Reported) Quetiapine Fumarate (Quetiapine Fumarate) 25 Mg Tablet, 25 MG PO BID, (Reported) TAKES MORNING AND DINNERTIME Quetiapine Fumarate (Seroquel Xr) 150 Mg Tab.er.24h, 150 MG PO QHS, (Reported) Scheduled PRN Albuterol Sulfate (Albuterol Sulfate Hfa) 8.5 Gm Hfa.aer.ad, 2 PUFFS INH Q4H PRN for SHORTNESS OF BREATH, (Reported) Trazodone HCl (Trazodone HCl) 150 Mg Tablet, 150 MG PO QHS PRN for SLEEP, (Reported) Allergies Coded Allergies: No Known Allergies (Verified , 10/22/18) BECKA MCKENZIE DO Mar 05, 2020 11:55
[2020-03-05 13:57] VITALS: BP 125/88
== END 2020-03-05 15:56 | DRG 133 ==
LOC: EDBD 10:17 → M ED 10:17 → M ED INP 16:01 → ENRESERV 17:19 → M MSPAV 19:25 → M PCU 21:51 → M ICU 02-29 17:03 → M MS5PR 03-05 04:03
PROVIDERS: ADMIT Internal Medicine; ATTEND Internal Medicine
DX: J96.01 Acute respiratory failure with hypoxia (principal); N17.9 Acute kidney failure, unspecified; E86.0 Dehydration; E66.2 Morbid (severe) obesity with alveolar hypoventilation; E03.9 Hypothyroidism, unspecified; F17.200 Nicotine dependence, unspecified, uncomplicated; F32.9 Major depressive disorder, single episode, unspecified; F41.9 Anxiety disorder, unspecified; Z91.19 Patient's noncompliance with other medical treatment and regimen; J21.8 Acute bronchiolitis due to other specified organisms; Z91.14 Patient's other noncompliance with medication regimen; Z20.828 Contact with and (suspected) exposure to other viral communicable diseases; Z79.899 Other long term (current) drug therapy

== ENCOUNTER 2020-03-05 13:19 | Inpatient (IN) | payer OTHER ==
[~2020-03-05] VITALS: Ht 160 cm; Wt 104.7 kg
[~2020-03-05 13:19] MED LIST changes: +ALBU8.5H INH; +BUPR300T92 PO; +TRAZ150T90 PO
[2020-03-05] MEDS ORDERED: MAALOX 30 ML SUSP *UDC PO PRN (14:45)
[2020-03-05] MEDS ORDERED: traZODone 50 MG TAB PO PRN (14:45)
[2020-03-05] MEDS ORDERED: MOM 30ML SUSPENSION UDC PO PRN (14:45)
[2020-03-05] MEDS ORDERED: ACETAMINOPHEN TAB 650MG DOSE (2X325MG) PO PRN (14:45)
[2020-03-05 16:04] VITALS: BP 139/100
[2020-03-05] MEDS ORDERED: METHADONE 10 MG TAB (S0109) PO ONE (16:45)
[2020-03-05] MEDS ORDERED: ALBUTEROL 90 MCG/ACT 8GM HFA INHALER INH PRN (16:45)
[2020-03-05] MEDS: busPIRone 5 MG TAB PO SCH (20:15)
[2020-03-05] MEDS: traZODone 50 MG TAB PO PRN (20:15)
[2020-03-05] MEDS: QUEtiapine FUMERATE XR 50 MG TABER PO SCH (20:15)
[2020-03-05] MEDS ORDERED: QUEtiapine FUMARATE 25 MG TAB PO SCH (21:00)
[2020-03-06 06:21] VITALS: BP 92/54
[2020-03-06] MEDS ORDERED: METHADONE 10 MG TAB (S0109) PO SCH (09:00)
[2020-03-06] MEDS: buPROPion **XL** TABLET 150MG (WELLBUTRIN XL) PO SCH (09:22)
[2020-03-06] MEDS: busPIRone 5 MG TAB PO SCH (09:22)
[2020-03-06] MEDS: QUEtiapine FUMARATE 25 MG TAB PO SCH ×2 (09:22→17:39)
[2020-03-06] MEDS: ESCITALOPRAM OXALATE 10 MG TAB (LEXAPRO) PO SCH (09:22)
--- NOTE | 2020-03-06 10:38 | MHHPEPDOC ---
General Legal Status: 9.39 Chief Complaint "Anxiety. History of Present Illness HISTORY OF THE PRESENT ILLNESS: Patient is a 39 -year-old , female, who presented to [facility] with respiratory failure secondary to methadone combined with gabapentin, she was seen in consultation on the medical floor where she reported increasing anxiety and a lack of help from the gabapentin. She had reported that she became increasingly more dizzy and oversedated with accommodation. She reports that she is amenable to trying something new, she describes that the buspirone started last time she was here hasn't made much change but is at a small dose. She reports that she is amenable to her dose for now in order to reduce the station while the gabapentin is ceased on the unit. She additionally has not been taking care for thyroid causing her increased depression and loss of interest. Psychiatric Review of Systems Depression (2 or more weeks): depressed mood Psychosis: denies Anxiety: situational anxiety, stressor related anxiety, panic attacks Anxiety/ 6 months or more of: irritability, muscle tension, sleep disturbance Past Psychiatric History Previous Psychiatric Diagnosis: anxiety/depression. Previous Psychiatric Admissions: multiple admissions, last several months ago. Suicide Attempts: multiple overdoses in the past, related to substance use. Psychiatric Follow-up: [facility]. Psychiatric medications: combination of buspirone, Lexapro and Seroquel. Past Medical History Medical Problems Significantly uncontrolled thyroid disorder Family Medical/Psychiatric HX Psychiatric Disorders: No Addiction: No Suicide Attemps/Completions: No Addiction History nicotine, heroin Social History Childhood: difficult. Current Living Situation: lives alone. Education: high school education. Employment: unemployed. Social Support: few. Legal:. Denies. Marital: unmarried no children. Mental Status Examination General Appearance: well groomed Build: average Demeanor: average Eye Contact: average Activity: average Behavior: cooperative Speech: clear Mood: depressed, anxious Affect: constricted Thought Process: logical/linear Thought Content (Delusions): none reported Thought Content (Other): none reported Thought Content (Aggressive): none reported Perception (Hallucinations): none reported Perception (Other): none reported Cognition (Impairment of): none reported Cognition(Intelligence Est.): borderline Oriented: Oriented times three Insight: fair Judgment: Fair Psychosis: Denies Assessment The patient is likely suffering from a combination of poorly controlled thyroid, as well as, gabapentin induced methadone overdose. The patient would do well to be tight radon appropriate anxiety treatment as well as resumed on thyroid medications as she is done in the past. Problem List Problems: (1) Anxiety Status: Acute Response to Treatment: Uncontrolled Problem Text: Increase buspirone to 10 Milgram's BID (2) Hypothyroid Status: Chronic Response to Treatment: Uncontrolled Problem Text: Thyroid replacement per hospitalist (3) Opiate abuse, episodic Status: Chronic Problem Text: Discontinue gabapentin, split methadone dose 60/40 before resuming previous dose Initial Treatment Plan 1. Patient was admitted on a [9.39] status. 2. Complete history was obtained. 3. With patients permission, family will be contacted and database will be expanded. 4. Patients medication regimen will be reviewed and changed accordingly. 5. Patient will be provided with protected environment. 6. Patient will be treated with individual, group, and milieu therapies. 7. Patient will receive supportive psych-education. 8. Discharge planning will commence immediately. 9. Outpatient follow-up treatment will be strongly recommended. 10. The initial treatment plan will focus initially on: anxiety ESTIMATED LENGTH OF STAY: 2-4 DAYS. TIME SPENT COUNSELING AND COORDINATING INITIAL CARE: 30 minutes. Vital Signs Vital Signs Date Time Temp Pulse Resp B/P (MAP) Pulse Ox O2 Delivery O2 Flow Rate FiO2 03/06/20 06:21 97.3 60 16 92/54 (67) 03/05/20 16:04 97 Room Air Medications Scheduled Bupropion HCl (Bupropion Xl) 300 Mg Tab.er.24h, 300 MG PO DAILY, (Reported) Buspirone HCl (Buspirone HCl) 5 Mg Tablet, 5 MG PO BID, (Reported) Escitalopram Oxalate (Escitalopram Oxalate) 10 Mg Tablet, 30 MG PO DAILY, (Reported) Methadone HCl (Methadone HCl) 10 Mg/1 Ml Oral.conc, 140 MG PO DAILY, (Reported) Quetiapine Fumarate (Quetiapine Fumarate) 25 Mg Tablet, 25 MG PO BID, (Reported) TAKES MORNING AND DINNERTIME Quetiapine Fumarate (Seroquel Xr) 150 Mg Tab.er.24h, 150 MG PO QHS, (Reported) Scheduled PRN Albuterol Sulfate (Albuterol Sulfate Hfa) 8.5 Gm Hfa.aer.ad, 2 PUFFS INH Q4H PRN for SHORTNESS OF BREATH, (Reported) Trazodone HCl (Trazodone HCl) 150 Mg Tablet, 150 MG PO QHS PRN for SLEEP, (Reported) Allergies Coded Allergies: No Known Allergies (Verified , 10/22/18) ADDIS ERNANDEZ DO Mar 06, 2020 10:38
[2020-03-06] MEDS: METHADONE 10 MG TAB (S0109) PO SCH ×2 (10:54→16:18)
[2020-03-06] MEDS: COMBIVENT RESPIMAT 100-20MCG INHALER 4GM INH SCH ×2 (13:56→20:26)
[2020-03-06 18:00] VITALS: BP 130/89
--- NOTE | 2020-03-06 18:54 | HPEPDOC ---
General Date of Admission Mar 05, 2020 at 16:00 Date of Service: Mar 06, 2020 Chief Complaint The patient is a 39-year-old female admitted with a reason for visit of Depression/Anxiety. Source: Patient History of Present Illness 39 year old female with PMH of Morbid Obesity, TAVO , Sarcoidosis, CKD, was admitted to the hospital from 02/27 to 03/05 with acute respiratory failure with hypoxia and hypercarbia due to a combination of Rhinovirus infection and respiratory depression due to high doses of methadone and gabapentin. She required BIPAP and Vapotherm support. After her respiratory status improved she complained of severe anxiety and depression and was seen by Psychiatrist and he recommended [facility] admission for adjustment of medications for her anxiety and dep ression. I am seeing the patient for medical history and physical. She complains of increased phlegm production with coughing. Also complained of intermitted SOB and wheezing. denied any chest pain. Home Medications Scheduled Bupropion HCl (Bupropion Xl) 300 Mg Tab.er.24h, 300 MG PO DAILY, (Reported) Buspirone HCl (Buspirone HCl) 5 Mg Tablet, 5 MG PO BID, (Reported) Escitalopram Oxalate (Escitalopram Oxalate) 10 Mg Tablet, 30 MG PO DAILY, (Reported) Methadone HCl (Methadone HCl) 10 Mg/1 Ml Oral.conc, 140 MG PO DAILY, (Reported) Quetiapine Fumarate (Quetiapine Fumarate) 25 Mg Tablet, 25 MG PO BID, (Reported) TAKES MORNING AND DINNERTIME Quetiapine Fumarate (Seroquel Xr) 150 Mg Tab.er.24h, 150 MG PO QHS, (Reported) Scheduled PRN Albuterol Sulfate (Albuterol Sulfate Hfa) 8.5 Gm Hfa.aer.ad, 2 PUFFS INH Q4H PRN for SHORTNESS OF BREATH, (Reported) Trazodone HCl (Trazodone HCl) 150 Mg Tablet, 150 MG PO QHS PRN for SLEEP, (Reported) Allergies Coded Allergies: No Known Allergies (Verified , 10/22/18) Past Medical History Medical History S/p Rhinovirus infection 02/19/20 S/P acute respiratory failure with hypoxia and hypercarbia. 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 Spirometry was normal in the office in July 2018 Nicotine dependence CKD stage 3 Medullary Nephrocalcinosis H/o Polysubstance abuse on Methadone Bipolar disorder Depression, history of noncompliance Surgical History c section Bronchoscopies Family History Significant Family History: Diabetes, Heart disease, Hyperlipidemia Social History * Smoker: current smoker Drugs: prescription drugs A-FIB/CHADSVASC A-FIB History Current/History of A-Fib/PAF?: No Review of Systems Constitutional: Denies: Chills, Fever, Night Sweats Eyes: Denies: Pain, Vision change ENT: Denies: Head Aches, Ear Pain, Dysphagia Skin: Denies: Rash, Lesions, Breakdown Pulmonary: Reports: Cough Cardiovascular: Denies: Chest Pain, Palpitations, Orthopnea, Paroxysmal Noc. Dyspnea, Lt Headedness Gastrointestinal: Denies: Nausea, Vomiting, Abdominal Pain, Diarrhea Genitourinary: Denies: Dysuria, Frequency, Incontinence, Retention Hematologic: Denies: Bruising, Bleeding Excessively Musculoskeletal: Reports: Back Pain Physical Examination General Exam: Positive: Alert, Cooperative, No Acute Distress Eye Exam: Positive: PERRLA, Conjunctiva & lids normal, EOMI; Negative: Sclera icteric ENT Exam: Positive: Atraumatic, Mucous membr. moist/pink, Pharynx Normal Neck Exam: Positive: Supple; Negative: JVD, thyromegaly Chest Exam: Positive: Rhonchi, Wheezing Heart Exam: Positive: Rate Normal, Regular Rhythm, Normal S1, Normal S2; Negative: Murmurs, Rubs Abdomen Exam: Positive: Normal bowel sounds, Soft; Negative: Tenderness Extremity Exam: Negative: Clubbing, Cyanosis, Edema Skin Exam: Positive: Nl turgor and temperature; Negative: Breakdown, Lesion Neuro Exam: Positive: Normal Gait, Normal Speech, Strength at 5/5 X4 ext Psych Exam: Positive: Memory Intact, Oriented x 3 Vital Signs Vital Signs Date Time Temp Pulse Resp B/P (MAP) Pulse Ox O2 Delivery O2 Flow Rate FiO2 03/06/20 06:21 97.3 60 16 92/54 (67) 03/05/20 16:04 97 Room Air Assessment/Plan 39 year old female with PMH of Morbid Obesity, TAVO , Sarcoidosis, CKD, was admitted to the hospital from 02/27 to 03/05 with acute respiratory failure with hypoxia and hypercarbia due to a combination of Rhinovirus infection and respiratory depression due to high doses of methadone and gabapentin. She required BIPAP and Vapotherm support. After her respiratory status improved she complained of severe anxiety and depression and was seen by Psychiatrist and he recommended [facility] admission for adjustment of medications for her anxiety and depression. I am seeing the patient for medical history and physical. s/p Rhinovirus infection continue Combivent acapella, incentive spirometry Sarcoidosis with mediastinal lymphadenopathy Non complaint with Pulmonary follow ups. Dr Hurst's patient but does not use her inhalers of nebs as directed. Not on any definitive treatment. will give combivent. CKD stage 3 creatinine stable. Morbid obesity with possible TAVO. Depression/ anxiety/ Bipolar as per psychiatry these add to the noncompliance issues. Plan / VTE VTE Prophylaxis Ordered?: No (freely) ROB MAYEN MD Mar 06, 2020 18:54
[2020-03-06] MEDS: QUEtiapine FUMERATE XR 50 MG TABER PO SCH (20:24)
[2020-03-06] MEDS: traZODone 50 MG TAB PO PRN (20:25)
[2020-03-06] MEDS: busPIRone 10 MG TAB PO SCH (20:26)
[2020-03-07 06:28] VITALS: BP 110/60
[2020-03-07] MEDS: QUEtiapine FUMARATE 25 MG TAB PO SCH ×2 (09:13→17:53)
[2020-03-07] MEDS: busPIRone 10 MG TAB PO SCH ×2 (09:13→20:31)
[2020-03-07] MEDS: buPROPion **XL** TABLET 150MG (WELLBUTRIN XL) PO SCH (09:14)
[2020-03-07] MEDS: ESCITALOPRAM OXALATE 10 MG TAB (LEXAPRO) PO SCH (09:14)
[2020-03-07] MEDS: COMBIVENT RESPIMAT 100-20MCG INHALER 4GM INH SCH ×2 (09:16→20:32)
[2020-03-07] MEDS: METHADONE 10 MG TAB (S0109) PO SCH ×2 (09:18→15:22)
--- NOTE | 2020-03-07 09:57 | MHIPNPDOC ---
[facility] Progress Note Progress Note DATE OF SERVICE: 03/07/20 HISTORY: the patient is met with today, she reports that she is feeling better coming off the gabapentin. She reports her anxiety still difficult but is able to identify various stressors including her Medicaid cab and the previous fluctuations of her methadone, causing her to be dizzy. She reports that she is doing better in making progress.. VITAL SIGNS: See below. NEW TEST RESULTS: none. CURRENT MEDICATIONS: See below. MENTAL STATUS EXAMINATION: General: [Well dressed with good hygiene] Speech: [Spontaneous and fluid] Thought processes: [Linear and logical] Thought content: [Future orientated] Abstract reasoning, and computation: [Intact] Description of associations: [Intact] Description of abnormal or psychotic thoughts: passive ideation at times but none currently Judgment: [fair] Insight: [fair] Orientation: [Alert and orientated 3] Recent and remote memory: [Intact] Attention span and concentration: [Intact] Fund of knowledge: [Adequate] Mood: ["okay"] Affect: mildly anxious DIAGNOSES: 1. Unspecified anxiety disorder. 2.. MDD, recurrent, unspecified. 3. Opioid use disorder. ASSESSMENT: patient appears making some progress, will continue to adjust medications MANAGEMENT PLAN: Continue increase of buspirone 10 mg BID Continue home meds of Lexapro without change and thyroid medication Methadone to be switchback 140 Milgram's daily gabapentin, discontinue. TIME SPENT: 15 minutes. Vital Signs Vital Signs Date Time Temp Pulse Resp B/P (MAP) Pulse Ox O2 Delivery O2 Flow Rate FiO2 03/07/20 06:28 98.5 55 18 110/60 (77) 03/05/20 16:04 97 Room Air Current Medications Current Medications Medications (Trade) Dose Ordered Sig/[place] Route PRN Reason Start Time Stop Time Status Last Admin Dose Admin Acetaminophen (Tylenol Tab) 650 mg Q6HP PRN PO HEADACHE or DISCOMFORT 03/05/20 14:45 Al Hydrox/Mg Hydrox/Simethicone (Mylanta) 30 ml Q4HP PRN PO HEARTBURN/INDIGESTION 03/05/20 14:45 Albuterol Sulfate (Proventil, Ventolin Hfa) 2 puff Q4HP PRN INH SHORTNESS OF BREATH 03/05/20 16:45 Albuterol/ Ipratropium (Combivent Respimat 100-20mcg) 2 puff BID INH 03/06/20 09:00 03/07/20 09:16 Bupropion HCl (Wellbutrin Xl) 300 mg DAILY PO 03/06/20 09:00 03/07/20 09:14 Buspirone HCl (Buspar) 5 mg BID PO 03/05/20 21:00 03/06/20 11:20 DC 03/06/20 09:22 Buspirone HCl (Buspar) 10 mg BID PO 03/06/20 21:00 03/07/20 09:13 Escitalopram Oxalate (Lexapro) 30 mg DAILY PO 03/06/20 09:00 03/07/20 09:14 Magnesium Hydroxide (Milk Of Magnesia) 30 ml DAILYPRN PRN PO CONSTIPATION 03/05/20 14:45 Methadone HCl (Dolophine) 60 mg DAILY@1600 PO 03/06/20 16:00 03/06/20 16:18 Methadone HCl (Dolophine) 80 mg DAILY PO 03/06/20 09:00 03/07/20 09:18 Methadone HCl (Dolophine) 140 mg DAILY PO 03/06/20 09:00 03/06/20 10:25 DC Quetiapine Fumarate (SEROquel) 25 mg BID PO 03/05/20 21:00 03/05/20 20:14 DC Quetiapine Fumarate (SEROquel) 25 mg BID@0900,1800 PO 03/06/20 09:00 03/07/20 09:13 Quetiapine Fumarate (Seroquel Xr) 150 mg QHS PO 03/05/20 21:00 03/06/20 20:24 Trazodone HCl (Desyrel) 50 mg QHSP PRN PO INSOMNIA 03/05/20 14:45 Cancel Trazodone HCl (Desyrel) 150 mg QHSP PRN PO INSOMNIA 03/05/20 16:45 03/06/20 20:25 Allergies Coded Allergies: No Known Allergies (Verified , 10/22/18) ADDIS ERNANDEZ DO Mar 07, 2020 09:57
[2020-03-07] MEDS ORDERED: hydrOXYzine 25 MG TAB PO ONE (13:15)
[2020-03-07 19:48] VITALS: BP 127/63
[2020-03-07] MEDS: traZODone 50 MG TAB PO PRN (20:30)
[2020-03-07] MEDS: QUEtiapine FUMERATE XR 50 MG TABER PO SCH (20:30)
[2020-03-08 06:49] VITALS: BP 122/75
[2020-03-08] MEDS: ESCITALOPRAM OXALATE 10 MG TAB (LEXAPRO) PO SCH (08:59)
[2020-03-08] MEDS: METHADONE 10 MG TAB (S0109) PO SCH (08:59)
[2020-03-08] MEDS: COMBIVENT RESPIMAT 100-20MCG INHALER 4GM INH SCH ×2 (09:00→20:16)
[2020-03-08] MEDS: busPIRone 10 MG TAB PO SCH ×2 (09:00→20:17)
[2020-03-08] MEDS: QUEtiapine FUMARATE 25 MG TAB PO SCH ×2 (09:00→17:12)
[2020-03-08] MEDS: buPROPion **XL** TABLET 150MG (WELLBUTRIN XL) PO SCH (09:00)
--- NOTE | 2020-03-08 10:39 | MHIPNPDOC ---
[facility] Progress Note Progress Note DATE OF SERVICE: 03/08/20 HISTORY: the patient is met with today, she reports she is feeling somewhat better but still is fairly upset with discharge planning her perception of lack of helping with Medicaid. She reports, that she has improved anxiety, she otherwise reports that her medication in the morning could be taken the afternoon is that could make her anxiety better she reports roughly from 3 o'clock she starts becoming more anxious, she is been going to groups and generally engaged without any significant behavioral problem. VITAL SIGNS: See below. NEW TEST RESULTS: none. CURRENT MEDICATIONS: See below. MENTAL STATUS EXAMINATION: General: [Well dressed with good hygiene] Speech: [Spontaneous and fluid] Thought processes: [Linear and logical] Thought content: [Future orientated] Abstract reasoning, and computation: [Intact] Description of associations: [Intact] Description of abnormal or psychotic thoughts: passive ideation at times but none currently Judgment: [fair] Insight: [fair] Orientation: [Alert and orientated 3] Recent and remote memory: [Intact] Attention span and concentration: [Intact] Fund of knowledge: [Adequate] Mood: ["okay"] Affect: mildly anxious DIAGNOSES: 1. Unspecified anxiety disorder. 2.. MDD, recurrent, unspecified. 3. Opioid use disorder. ASSESSMENT: patient appears making some progress, will continue to adjust medications MANAGEMENT PLAN: Continue buspirone 10 mg BID Continue home meds of Lexapro without change and thyroid medication, will move morning dose of Seroquel 25 mg to later in the afternoon, continue nightly dose without change Continue Methadone 140 Milgram's daily TIME SPENT: 15 minutes. Vital Signs Vital Signs Date Time Temp Pulse Resp B/P (MAP) Pulse Ox O2 Delivery O2 Flow Rate FiO2 03/08/20 06:49 96.9 63 18 122/75 (91) 03/05/20 16:04 97 Room Air Current Medications Current Medications Medications (Trade) Dose Ordered Sig/[place] Route PRN Reason Start Time Stop Time Status Last Admin Dose Admin Acetaminophen (Tylenol Tab) 650 mg Q6HP PRN PO HEADACHE or DISCOMFORT 03/05/20 14:45 Al Hydrox/Mg Hydrox/Simethicone (Mylanta) 30 ml Q4HP PRN PO HEARTBURN/INDIGESTION 03/05/20 14:45 Albuterol Sulfate (Proventil, Ventolin Hfa) 2 puff Q4HP PRN INH SHORTNESS OF BREATH 03/05/20 16:45 Albuterol/ Ipratropium (Combivent Respimat 100-20mcg) 2 puff BID INH 03/06/20 09:00 03/07/20 09:16 Bupropion HCl (Wellbutrin Xl) 300 mg DAILY PO 03/06/20 09:00 03/08/20 09:00 Buspirone HCl (Buspar) 5 mg BID PO 03/05/20 21:00 03/06/20 11:20 DC 03/06/20 09:22 Buspirone HCl (Buspar) 10 mg BID PO 03/06/20 21:00 03/08/20 09:00 Escitalopram Oxalate (Lexapro) 30 mg DAILY PO 03/06/20 09:00 03/08/20 08:59 Magnesium Hydroxide (Milk Of Magnesia) 30 ml DAILYPRN PRN PO CONSTIPATION 03/05/20 14:45 Methadone HCl (Dolophine) 60 mg DAILY@1600 PO 03/06/20 16:00 03/07/20 18:00 DC 03/07/20 15:22 Methadone HCl (Dolophine) 80 mg DAILY PO 03/06/20 09:00 03/07/20 12:01 DC 03/07/20 09:18 Methadone HCl (Dolophine) 140 mg DAILY PO 03/06/20 09:00 03/06/20 10:25 DC Methadone HCl (Dolophine) 140 mg DAILY PO 03/08/20 09:00 03/08/20 08:59 Quetiapine Fumarate (SEROquel) 25 mg BID PO 03/05/20 21:00 03/05/20 20:14 DC Quetiapine Fumarate (SEROquel) 25 mg BID@0900,1800 PO 03/06/20 09:00 03/08/20 09:00 Quetiapine Fumarate (Seroquel Xr) 150 mg QHS PO 03/05/20 21:00 03/07/20 20:30 Trazodone HCl (Desyrel) 50 mg QHSP PRN PO INSOMNIA 03/05/20 14:45 Cancel Trazodone HCl (Desyrel) 150 mg QHSP PRN PO INSOMNIA 03/05/20 16:45 03/07/20 20:30 Allergies Coded Allergies: No Known Allergies (Verified , 10/22/18) ADDIS ERNANDEZ DO Mar 08, 2020 10:38
[2020-03-08 16:43] VITALS: BP 123/76
[2020-03-08] MEDS: QUEtiapine FUMERATE XR 50 MG TABER PO SCH (20:17)
[2020-03-08] MEDS: traZODone 50 MG TAB PO PRN (20:17)
[2020-03-09 06:27] VITALS: BP 122/81
--- NOTE | 2020-03-09 09:43 | MHIPNPDOC ---
[facility] Progress Note Progress Note DATE OF SERVICE: 03/09/20 HISTORY: The patient has met with today, she reports she is doing well without any major issues, she reports her anxiety is improving since the Medicaid cab h ad been dealt with. She reports that she is feeling good about a potential discharge on Thursday, feeling that she got a lot out of being here. VITAL SIGNS: See below. NEW TEST RESULTS: none. CURRENT MEDICATIONS: See below. MENTAL STATUS EXAMINATION: General: [Well dressed with good hygiene] Speech: [Spontaneous and fluid] Thought processes: [Linear and logical] Thought content: [Future orientated] Abstract reasoning, and computation: [Intact] Description of associations: [Intact] Description of abnormal or psychotic thoughts: passive ideation at times but none currently Judgment: [fair] Insight: [fair] Orientation: [Alert and orientated 3] Recent and remote memory: [Intact] Attention span and concentration: [Intact] Fund of knowledge: [Adequate] Mood: ["okay"] Affect: improved DIAGNOSES: 1. Unspecified anxiety disorder. 2.. MDD, recurrent, unspecified. 3. Opioid use disorder. ASSESSMENT: patient appears making some progress, will continue to adjust medications MANAGEMENT PLAN: Continue buspirone 10 mg BID Continue home meds of Lexapro without change and thyroid medication, Seroqul 25/150 mg qafternoon and qhs Continue Methadone 140 Milgram's daily TIME SPENT: 15 minutes. Vital Signs Vital Signs Date Time Temp Pulse Resp B/P (MAP) Pulse Ox O2 Delivery O2 Flow Rate FiO2 03/09/20 06:27 97.6 66 16 122/81 (95) 03/08/20 16:43 100 Room Air Current Medications Current Medications Medications (Trade) Dose Ordered Sig/[place] Route PRN Reason Start Time Stop Time Status Last Admin Dose Admin Acetaminophen (Tylenol Tab) 650 mg Q6HP PRN PO HEADACHE or DISCOMFORT 03/05/20 14:45 Al Hydrox/Mg Hydrox/Simethicone (Mylanta) 30 ml Q4HP PRN PO HEARTBURN/INDIGESTION 03/05/20 14:45 Albuterol Sulfate (Proventil, Ventolin Hfa) 2 puff Q4HP PRN INH SHORTNESS OF BREATH 03/05/20 16:45 Albuterol/ Ipratropium (Combivent Respimat 100-20mcg) 2 puff BID INH 03/06/20 09:00 03/07/20 09:16 Bupropion HCl (Wellbutrin Xl) 300 mg DAILY PO 03/06/20 09:00 03/08/20 09:00 Buspirone HCl (Buspar) 5 mg BID PO 03/05/20 21:00 03/06/20 11:20 DC 03/06/20 09:22 Buspirone HCl (Buspar) 10 mg BID PO 03/06/20 21:00 03/08/20 20:17 Escitalopram Oxalate (Lexapro) 30 mg DAILY PO 03/06/20 09:00 03/08/20 08:59 Magnesium Hydroxide (Milk Of Magnesia) 30 ml DAILYPRN PRN PO CONSTIPATION 03/05/20 14:45 Methadone HCl (Dolophine) 60 mg DAILY@1600 PO 03/06/20 16:00 03/07/20 18:00 DC 03/07/20 15:22 Methadone HCl (Dolophine) 80 mg DAILY PO 03/06/20 09:00 03/07/20 12:01 DC 03/07/20 09:18 Methadone HCl (Dolophine) 140 mg DAILY PO 03/06/20 09:00 03/06/20 10:25 DC Methadone HCl (Dolophine) 140 mg DAILY PO 03/08/20 09:00 03/08/20 08:59 Quetiapine Fumarate (SEROquel) 25 mg BID PO 03/05/20 21:00 03/05/20 20:14 DC Quetiapine Fumarate (SEROquel) 25 mg BID@0900,1500 PO 03/08/20 15:00 03/08/20 17:12 Quetiapine Fumarate (SEROquel) 25 mg BID@0900,1800 PO 03/06/20 09:00 03/08/20 16:40 DC 03/08/20 09:00 Quetiapine Fumarate (Seroquel Xr) 150 mg QHS PO 03/05/20 21:00 03/08/20 20:17 Trazodone HCl (Desyrel) 50 mg QHSP PRN PO INSOMNIA 03/05/20 14:45 Cancel Trazodone HCl (Desyrel) 150 mg QHSP PRN PO INSOMNIA 03/05/20 16:45 03/08/20 20:17 Allergies Coded Allergies: No Known Allergies (Verified , 10/22/18) ADDIS ERNANDEZ DO Mar 09, 2020 09:43
[2020-03-09] MEDS: ESCITALOPRAM OXALATE 10 MG TAB (LEXAPRO) PO SCH (09:52)
[2020-03-09] MEDS: METHADONE 10 MG TAB (S0109) PO SCH (09:52)
[2020-03-09] MEDS: QUEtiapine FUMARATE 25 MG TAB PO SCH ×2 (09:53→14:55)
[2020-03-09] MEDS: buPROPion **XL** TABLET 150MG (WELLBUTRIN XL) PO SCH (09:53)
[2020-03-09] MEDS: busPIRone 10 MG TAB PO SCH ×2 (09:53→22:00)
[2020-03-09] MEDS: COMBIVENT RESPIMAT 100-20MCG INHALER 4GM INH SCH ×2 (10:12→21:00)
[2020-03-09] MEDS: LEVOTHYROXINE 150MCG TABLET (0.15MG) PO SCH (12:30)
[2020-03-09 16:00] VITALS: BP 105/55
[2020-03-09] MEDS: traZODone 50 MG TAB PO PRN (22:00)
[2020-03-09] MEDS: QUEtiapine FUMERATE XR 50 MG TABER PO SCH (22:00)
[2020-03-10 06:33] VITALS: BP 101/57
[2020-03-10] MEDS: LEVOTHYROXINE 150MCG TABLET (0.15MG) PO SCH (06:39)
[2020-03-10] MEDS: COMBIVENT RESPIMAT 100-20MCG INHALER 4GM INH SCH ×2 (09:00→21:11)
[2020-03-10] MEDS: METHADONE 10 MG TAB (S0109) PO SCH (10:22)
[2020-03-10] MEDS: buPROPion **XL** TABLET 150MG (WELLBUTRIN XL) PO SCH (10:22)
[2020-03-10] MEDS: ESCITALOPRAM OXALATE 10 MG TAB (LEXAPRO) PO SCH (10:22)
[2020-03-10] MEDS: busPIRone 10 MG TAB PO SCH ×2 (10:22→21:11)
[2020-03-10] MEDS: QUEtiapine FUMARATE 25 MG TAB PO SCH ×2 (10:22→14:28)
[2020-03-10] MEDS: traZODone 50 MG TAB PO PRN (21:11)
[2020-03-10] MEDS: QUEtiapine FUMERATE XR 50 MG TABER PO SCH (21:11)
[2020-03-11 06:27] VITALS: BP 115/73
[2020-03-11] MEDS: LEVOTHYROXINE 150MCG TABLET (0.15MG) PO SCH (06:31)
[2020-03-11] MEDS: COMBIVENT RESPIMAT 100-20MCG INHALER 4GM INH SCH ×2 (08:52→21:02)
[2020-03-11] MEDS: ESCITALOPRAM OXALATE 10 MG TAB (LEXAPRO) PO SCH (08:52)
[2020-03-11] MEDS: buPROPion **XL** TABLET 150MG (WELLBUTRIN XL) PO SCH (08:52)
[2020-03-11] MEDS: QUEtiapine FUMARATE 25 MG TAB PO SCH ×2 (08:52→14:25)
[2020-03-11] MEDS: busPIRone 10 MG TAB PO SCH ×2 (08:52→21:03)
[2020-03-11] MEDS: METHADONE 10 MG TAB (S0109) PO SCH (08:53)
[2020-03-11 18:27] VITALS: BP 127/63
[2020-03-11] MEDS: traZODone 50 MG TAB PO PRN (21:02)
[2020-03-11] MEDS: QUEtiapine FUMERATE XR 50 MG TABER PO SCH (21:03)
[2020-03-12] MEDS: LEVOTHYROXINE 150MCG TABLET (0.15MG) PO SCH (06:02)
[2020-03-12 06:35] VITALS: BP 105/55
--- NOTE | 2020-03-12 09:54 | MHDSPDOC ---
[facility] Discharge Summary Discharge Summary DATE OF ADMISSION: Mar 05, 2020 at 16:00 DATE OF DISCHARGE: DISCHARGE DIAGNOSES: 1. . 2. . REASON FOR ADMISSION: CONSULTANTS INVOLVED: TREATMENT AND PROGRESS ON THE UNIT : . HOSPITAL COURSE: DISCHARGE ASSESSMENT: MENTAL STATUS EXAMINATION ON DISCHARGE: Patient is a -year old female, who is . Speech is . Language skills are . Thought processes including: . Thought content: . Abstract reasoning, and computation: . Description of associations: . Description of abnormal or psychotic thoughts: . Judgment: . Insight: . Orientation to . Recent and remote memory: . Attention span and concentration: . Language: . Fund of knowledge: . Mood: . Affect: . MEDICATIONS ON DISCHARGE: - for . - for . - for . PLAN/FOLLOWUP ARRANGEMENTS: . The amount of time spent in the coordination of care for this patient was approximately minutes. Vital Signs/I&Os Vital Signs Date Time Temp Pulse Resp B/P (MAP) Pulse Ox O2 Delivery O2 Flow Rate FiO2 03/12/20 06:35 97.5 63 18 105/55 (72) Room Air 03/11/20 18:27 98 Medications Scheduled Bupropion HCl (Bupropion Xl) 300 Mg Tab.er.24h, 300 MG PO DAILY, (Reported) Buspirone HCl (Buspirone HCl) 5 Mg Tablet, 5 MG PO BID, (Reported) Escitalopram Oxalate (Escitalopram Oxalate) 10 Mg Tablet, 30 MG PO DAILY, (Reported) Methadone HCl (Methadone HCl) 10 Mg/1 Ml Oral.conc, 140 MG PO DAILY, (Reported) Quetiapine Fumarate (Quetiapine Fumarate) 25 Mg Tablet, 25 MG PO BID, (Reported) TAKES MORNING AND DINNERTIME Quetiapine Fumarate (Seroquel Xr) 150 Mg Tab.er.24h, 150 MG PO QHS, (Reported) Scheduled PRN Albuterol Sulfate (Albuterol Sulfate Hfa) 8.5 Gm Hfa.aer.ad, 2 PUFFS INH Q4H PRN for SHORTNESS OF BREATH, (Reported) Trazodone HCl (Trazodone HCl) 150 Mg Tablet, 150 MG PO QHS PRN for SLEEP, (Reported) Allergies Coded Allergies: No Known Allergies (Verified , 10/22/18) ADDIS ERNANDEZ DO Mar 12, 2020 09:54
--- NOTE | 2020-03-12 10:19 | MHIPNPDOC ---
[facility] Progress Note Progress Note DATE OF SERVICE: 03/12/20 HISTORY: The patient is met with today, she reports that she still feeling anxious as she reports her boyfriend and her "mother" left her, she reports that she still feels panicky and anxious, even though she was observed to be fairly engaged over the weekend and generally amenable. The patient reports that she has difficulties in life and has problems focusing on her priorities, feeling that the unit provides her structure and socialization. VITAL SIGNS: See below. NEW TEST RESULTS: none. CURRENT MEDICATIONS: See below. MENTAL STATUS EXAMINATION: General: [Well dressed with good hygiene] Speech: [Spontaneous and fluid] Thought processes: [Linear and logical] Thought content: [Future orientated] Abstract reasoning, and computation: [Intact] Description of associations: [Intact] Description of abnormal or psychotic thoughts: passive ideation at times but none currently Judgment: [fair] Insight: [fair] Orientation: [Alert and orientated 3] Recent and remote memory: [Intact] Attention span and concentration: [Intact] Fund of knowledge: [Adequate] Mood: ["okay"] Affect: Tearful, for only a few moments but otherwise euthymic DIAGNOSES: 1. Unspecified anxiety disorder. 2.. MDD, recurrent, unspecified. 3. Opioid use disorder. ASSESSMENT: We will continue to adjust the buspirone, she may need another day or so it is unclear as there is some inconsistencies between her presenting affect and her affect when meeting with me, as to whether this is done for secondary gain MANAGEMENT PLAN: Increase buspirone to 15 mg BID Continue home meds of Lexapro without change and thyroid medication, Seroqul 25/150 mg qafternoon and qhs Continue Methadone 140 milligrams daily TIME SPENT: 15 minutes. Vital Signs Vital Signs Date Time Temp Pulse Resp B/P (MAP) Pulse Ox O2 Delivery O2 Flow Rate FiO2 03/12/20 06:35 97.5 63 18 105/55 (72) Room Air 03/11/20 18:27 98 Current Medications Current Medications Medications (Trade) Dose Ordered Sig/[place] Route PRN Reason Start Time Stop Time Status Last Admin Dose Admin Acetaminophen (Tylenol Tab) 650 mg Q6HP PRN PO HEADACHE or DISCOMFORT 03/05/20 14:45 Al Hydrox/Mg Hydrox/Simethicone (Mylanta) 30 ml Q4HP PRN PO HEARTBURN/INDIGESTION 03/05/20 14:45 Albuterol Sulfate (Proventil, Ventolin Hfa) 2 puff Q4HP PRN INH SHORTNESS OF BREATH 03/05/20 16:45 Albuterol/ Ipratropium (Combivent Respimat 100-20mcg) 2 puff BID INH 03/06/20 09:00 03/11/20 21:02 Bupropion HCl (Wellbutrin Xl) 300 mg DAILY PO 03/06/20 09:00 03/11/20 08:52 Buspirone HCl (Buspar) 5 mg BID PO 03/05/20 21:00 03/06/20 11:20 DC 03/06/20 09:22 Buspirone HCl (Buspar) 10 mg BID PO 03/06/20 21:00 03/11/20 21:03 Escitalopram Oxalate (Lexapro) 30 mg DAILY PO 03/06/20 09:00 03/11/20 08:52 Levothyroxine Sodium (Synthroid) 150 mcg DAILY@06 PO 03/09/20 12:30 03/12/20 06:02 Magnesium Hydroxide (Milk Of Magnesia) 30 ml DAILYPRN PRN PO CONSTIPATION 03/05/20 14:45 Methadone HCl (Dolophine) 60 mg DAILY@1600 PO 03/06/20 16:00 03/07/20 18:00 DC 03/07/20 15:22 Methadone HCl (Dolophine) 80 mg DAILY PO 03/06/20 09:00 03/07/20 12:01 DC 03/07/20 09:18 Methadone HCl (Dolophine) 140 mg DAILY PO 03/06/20 09:00 03/06/20 10:25 DC Methadone HCl (Dolophine) 140 mg DAILY PO 03/08/20 09:00 03/11/20 08:53 Quetiapine Fumarate (SEROquel) 25 mg BID PO 03/05/20 21:00 03/05/20 20:14 DC Quetiapine Fumarate (SEROquel) 25 mg BID@0900,1500 PO 03/08/20 15:00 03/11/20 14:25 Quetiapine Fumarate (SEROquel) 25 mg BID@0900,1800 PO 03/06/20 09:00 03/08/20 16:40 DC 03/08/20 09:00 Quetiapine Fumarate (Seroquel Xr) 150 mg QHS PO 03/05/20 21:00 03/11/20 21:03 Trazodone HCl (Desyrel) 50 mg QHSP PRN PO INSOMNIA 03/05/20 14:45 Cancel Trazodone HCl (Desyrel) 150 mg QHSP PRN PO INSOMNIA 03/05/20 16:45 03/11/20 21:02 Allergies Coded Allergies: No Known Allergies (Verified , 10/22/18) ADDIS ERNANDEZ DO Mar 12, 2020 10:19
[2020-03-12] MEDS: ESCITALOPRAM OXALATE 10 MG TAB (LEXAPRO) PO SCH (10:29)
[2020-03-12] MEDS: busPIRone 10 MG TAB PO SCH (10:30)
[2020-03-12] MEDS: QUEtiapine FUMARATE 25 MG TAB PO SCH ×2 (10:30→15:13)
[2020-03-12] MEDS: METHADONE 10 MG TAB (S0109) PO SCH (10:30)
[2020-03-12] MEDS: buPROPion **XL** TABLET 150MG (WELLBUTRIN XL) PO SCH (10:31)
[2020-03-12] MEDS: COMBIVENT RESPIMAT 100-20MCG INHALER 4GM INH SCH ×2 (10:32→21:38)
[2020-03-12 17:20] VITALS: BP 109/66
[2020-03-12] MEDS: QUEtiapine FUMERATE XR 50 MG TABER PO SCH (21:38)
[2020-03-12] MEDS: busPIRone 5 MG TAB PO SCH (21:39)
[2020-03-12] MEDS: traZODone 50 MG TAB PO PRN (21:39)
[2020-03-13] MEDS: LEVOTHYROXINE 150MCG TABLET (0.15MG) PO SCH (06:01)
[2020-03-13 06:18] VITALS: BP 98/56
[2020-03-13] MEDS: COMBIVENT RESPIMAT 100-20MCG INHALER 4GM INH SCH ×2 (08:56→20:38)
[2020-03-13] MEDS: busPIRone 5 MG TAB PO SCH ×2 (08:57→20:28)
[2020-03-13] MEDS: QUEtiapine FUMARATE 25 MG TAB PO SCH ×2 (08:57→15:28)
[2020-03-13] MEDS: buPROPion **XL** TABLET 150MG (WELLBUTRIN XL) PO SCH (08:58)
[2020-03-13] MEDS: ESCITALOPRAM OXALATE 10 MG TAB (LEXAPRO) PO SCH (08:58)
[2020-03-13] MEDS: METHADONE 10 MG TAB (S0109) PO SCH (08:59)
[2020-03-13 16:16] VITALS: BP 118/56
--- NOTE | 2020-03-13 16:24 | MHIPNPDOC ---
[facility] Progress Note Progress Note DATE OF SERVICE: 03/13/20 HISTORY: Patient is a 39 -year-old , female, who presented to [facility] with respiratory failure secondary to methadone combined with gabapentin, she was seen in consultation on the medical floor where she reported increasing anxiety and a lack of help from the gabapentin. She had reported that she became increasingly more dizzy and oversedated with accommodation. She reports that she is amenable to trying something new, she describes that the buspirone started last time she was here hasn't made much change but is at a small dose. She reports that she is amenable to her dose for now in order to reduce the station while the gabapentin is ceased on the unit. She additionally has not been taking care for thyroid causing her increased depression and loss of interest. VITAL SIGNS: See below. NEW TEST RESULTS: CURRENT MEDICATIONS: See below. MENTAL STATUS EXAMINATION: Patient is a 39 -year-old Single, Disabled, Domiciled, , female, who presented to [facility] with respiratory failure secondary to methadone combined with gabapentin, she was seen in consultation on the medical floor where she reported increasing anxiety and a lack of help from the gabapentin. Her hygiene and grooming is good. She makes good eye contact and is not observed with psychomotor agitation or retardation. Language skills are intact Thought processes including: linear and goal oriented Thought content: reports depression and anxiety. Denies suicidal/homicidal ideation, planning or intent. Abstract reasoning, and computation: fair Description of associations: denies, none observed Description of abnormal or psychotic thoughts: denies, none observed. Judgment: fair Insight: fair Orientation: alert and oriented to person, place, time and situation Recent and remote memory: intact Attention span and concentration: Fair Language: expansive Fund of knowledge: average Mood: Observed to be Euthymic Mood but patient states she is depressed Affect: Flat DIAGNOSES: 1. Unspecified anxiety disorder. 2. MDD, recurrent, unspecified. 3. Opioid use disorder. ASSESSMENT: Initially patient refused to speak with provider States that she wants her anti-depressant increased because it is not helping or she feels that the Buspar makes her drowsy, "Lexapro use to be 40 mg and it is not working" Then patient states that she could be on Effexor because other peers/friends have talked about Effexor being helpful. She states, "I feel very depressed and I am scared to go home. I think my Wellbutrin needs to be increased, if I get that figured out I could go home. I just don't want to go home feeling anxious." Patient denies that she is exaggerating her symptoms when I pointed out that she has been observed to be doing better than she reports. MANAGEMENT PLAN: Continue all medications as prescribed. Discharge when stable. TIME SPENT: 25 minutes. Vital Signs Vital Signs Date Time Temp Pulse Resp B/P (MAP) Pulse Ox O2 Delivery O2 Flow Rate FiO2 03/13/20 06:18 97.4 52 16 98/56 (70) Room Air 03/12/20 17:20 97 Current Medications Current Medications Medications (Trade) Dose Ordered Sig/Mercedez Route PRN Reason Start Time Stop Time Status Last Admin Dose Admin Acetaminophen (Tylenol Tab) 650 mg Q6HP PRN PO HEADACHE or DISCOMFORT 03/05/20 14:45 Al Hydrox/Mg Hydrox/Simethicone (Mylanta) 30 ml Q4HP PRN PO HEARTBURN/INDIGESTION 03/05/20 14:45 Albuterol Sulfate (Proventil, Ventolin Hfa) 2 puff Q4HP PRN INH SHORTNESS OF BREATH 03/05/20 16:45 Albuterol/ Ipratropium (Combivent Respimat 100-20mcg) 2 puff BID INH 03/06/20 09:00 03/13/20 08:56 Bupropion HCl (Wellbutrin Xl) 300 mg DAILY PO 03/06/20 09:00 03/13/20 08:58 Buspirone HCl (Buspar) 5 mg BID PO 03/05/20 21:00 03/06/20 11:20 DC 03/06/20 09:22 Buspirone HCl (Buspar) 10 mg BID PO 03/06/20 21:00 03/12/20 11:38 DC 03/12/20 10:30 Buspirone HCl (Buspar) 15 mg BID PO 03/12/20 21:00 03/13/20 08:57 Escitalopram Oxalate (Lexapro) 30 mg DAILY PO 03/06/20 09:00 03/13/20 08:58 Levothyroxine Sodium (Synthroid) 150 mcg DAILY@06 PO 03/09/20 12:30 03/13/20 06:01 Magnesium Hydroxide (Milk Of Magnesia) 30 ml DAILYPRN PRN PO CONSTIPATION 03/05/20 14:45 Methadone HCl (Dolophine) 60 mg DAILY@1600 PO 03/06/20 16:00 03/07/20 18:00 DC 03/07/20 15:22 Methadone HCl (Dolophine) 80 mg DAILY PO 03/06/20 09:00 03/07/20 12:01 DC 03/07/20 09:18 Methadone HCl (Dolophine) 140 mg DAILY PO 03/06/20 09:00 03/06/20 10:25 DC Methadone HCl (Dolophine) 140 mg DAILY PO 03/08/20 09:00 03/13/20 08:59 Quetiapine Fumarate (SEROquel) 25 mg BID PO 03/05/20 21:00 03/05/20 20:14 DC Quetiapine Fumarate (SEROquel) 25 mg BID@0900,1500 PO 03/08/20 15:00 03/13/20 15:28 Quetiapine Fumarate (SEROquel) 25 mg BID@0900,1800 PO 03/06/20 09:00 03/08/20 16:40 DC 03/08/20 09:00 Quetiapine Fumarate (Seroquel Xr) 150 mg QHS PO 03/05/20 21:00 03/12/20 21:38 Trazodone HCl (Desyrel) 50 mg QHSP PRN PO INSOMNIA 03/05/20 14:45 Cancel Trazodone HCl (Desyrel) 150 mg QHSP PRN PO INSOMNIA 03/05/20 16:45 03/12/20 21:39 Allergies Coded Allergies: No Known Allergies (Verified , 10/22/18) BIPIN TIRADO NP Mar 13, 2020 16:15
[2020-03-13] MEDS: QUEtiapine FUMERATE XR 50 MG TABER PO SCH (20:27)
[2020-03-13] MEDS: traZODone 50 MG TAB PO PRN (20:28)
[2020-03-14] MEDS: LEVOTHYROXINE 150MCG TABLET (0.15MG) PO SCH (06:00)
[2020-03-14 06:22] VITALS: BP 122/59
[2020-03-14] MEDS: ESCITALOPRAM OXALATE 10 MG TAB (LEXAPRO) PO SCH (10:33)
[2020-03-14] MEDS: QUEtiapine FUMARATE 25 MG TAB PO SCH ×2 (10:33→15:09)
[2020-03-14] MEDS: buPROPion **XL** TABLET 150MG (WELLBUTRIN XL) PO SCH (10:33)
[2020-03-14] MEDS: busPIRone 5 MG TAB PO SCH ×2 (10:33→20:02)
[2020-03-14] MEDS: COMBIVENT RESPIMAT 100-20MCG INHALER 4GM INH SCH ×2 (10:34→20:01)
[2020-03-14] MEDS: METHADONE 10 MG TAB (S0109) PO SCH (10:35)
--- NOTE | 2020-03-14 12:44 | MHIPNPDOC ---
[facility] Progress Note Progress Note DATE OF SERVICE: 03/14/20 HISTORY: The patient is met with today, she reports she is feeling much better much improved, she reports her anxiety is better controlled and she realizes hannah t she needs to return home eventually to deal with her various stressors but feels better prepared. She reports the buspirone increase has been helpful without any major problems. She has been social on the unit without any major issues feeling good. VITAL SIGNS: See below. NEW TEST RESULTS: none. CURRENT MEDICATIONS: See below. MENTAL STATUS EXAMINATION: General: [Well dressed with good hygiene] Speech: [Spontaneous and fluid] Thought processes: [Linear and logical] Thought content: [Future orientated] Abstract reasoning, and computation: [Intact] Description of associations: [Intact] Description of abnormal or psychotic thoughts: Denies SI/HI, AVH Judgment: [fair] Insight: [fair] Orientation: [Alert and orientated 3] Recent and remote memory: [Intact] Attention span and concentration: [Intact] Fund of knowledge: [Adequate] Mood: ["okay"] Affect: Euthymic, full DIAGNOSES: 1. Unspecified anxiety disorder. 2.. MDD, recurrent, unspecified. 3. Opioid use disorder. ASSESSMENT: Will observe overnight and prepare for discharge tomorrow MANAGEMENT PLAN: Continue buspirone to 15 mg BID Continue home meds of Lexapro without change and thyroid medication,Seroqul 25/150 mg qafternoon and qhs Continue Methadone 140 milligrams daily TIME SPENT: 15 minutes. Vital Signs Vital Signs Date Time Temp Pulse Resp B/P (MAP) Pulse Ox O2 Delivery O2 Flow Rate FiO2 03/14/20 06:22 97.7 68 18 122/59 (80) 95 Room Air Current Medications Current Medications Medications (Trade) Dose Ordered Sig/Mercedez Route PRN Reason Start Time Stop Time Status Last Admin Dose Admin Acetaminophen (Tylenol Tab) 650 mg Q6HP PRN PO HEADACHE or DISCOMFORT 03/05/20 14:45 Al Hydrox/Mg Hydrox/Simethicone (Mylanta) 30 ml Q4HP PRN PO HEARTBURN/INDIGESTION 03/05/20 14:45 Albuterol Sulfate (Proventil, Ventolin Hfa) 2 puff Q4HP PRN INH SHORTNESS OF BREATH 03/05/20 16:45 Albuterol/ Ipratropium (Combivent Respimat 100-20mcg) 2 puff BID INH 03/06/20 09:00 03/14/20 10:34 Bupropion HCl (Wellbutrin Xl) 300 mg DAILY PO 03/06/20 09:00 03/14/20 10:33 Buspirone HCl (Buspar) 5 mg BID PO 03/05/20 21:00 03/06/20 11:20 DC 03/06/20 09:22 Buspirone HCl (Buspar) 10 mg BID PO 03/06/20 21:00 03/12/20 11:38 DC 03/12/20 10:30 Buspirone HCl (Buspar) 15 mg BID PO 03/12/20 21:00 03/14/20 10:33 Escitalopram Oxalate (Lexapro) 30 mg DAILY PO 03/06/20 09:00 03/14/20 10:33 Levothyroxine Sodium (Synthroid) 150 mcg DAILY@06 PO 03/09/20 12:30 03/14/20 06:00 Magnesium Hydroxide (Milk Of Magnesia) 30 ml DAILYPRN PRN PO CONSTIPATION 03/05/20 14:45 Methadone HCl (Dolophine) 60 mg DAILY@1600 PO 03/06/20 16:00 03/07/20 18:00 DC 03/07/20 15:22 Methadone HCl (Dolophine) 80 mg DAILY PO 03/06/20 09:00 03/07/20 12:01 DC 03/07/20 09:18 Methadone HCl (Dolophine) 140 mg DAILY PO 03/06/20 09:00 03/06/20 10:25 DC Methadone HCl (Dolophine) 140 mg DAILY PO 03/08/20 09:00 03/14/20 10:35 Quetiapine Fumarate (SEROquel) 25 mg BID PO 03/05/20 21:00 03/05/20 20:14 DC Quetiapine Fumarate (SEROquel) 25 mg BID@0900,1500 PO 03/08/20 15:00 03/14/20 10:33 Quetiapine Fumarate (SEROquel) 25 mg BID@0900,1800 PO 03/06/20 09:00 03/08/20 16:40 DC 03/08/20 09:00 Quetiapine Fumarate (Seroquel Xr) 150 mg QHS PO 03/05/20 21:00 03/13/20 20:27 Trazodone HCl (Desyrel) 50 mg QHSP PRN PO INSOMNIA 03/05/20 14:45 Cancel Trazodone HCl (Desyrel) 150 mg QHSP PRN PO INSOMNIA 03/05/20 16:45 03/13/20 20:28 Allergies Coded Allergies: No Known Allergies (Verified , 10/22/18) ADDIS ERNANDEZ DO Mar 14, 2020 12:44
[2020-03-14 16:19] VITALS: BP 120/59
[2020-03-14] MEDS: QUEtiapine FUMERATE XR 50 MG TABER PO SCH (20:01)
[2020-03-14] MEDS: traZODone 50 MG TAB PO PRN (20:03)
[2020-03-15 05:57] VITALS: BP 104/56
[2020-03-15] MEDS: LEVOTHYROXINE 150MCG TABLET (0.15MG) PO SCH (06:23)
[2020-03-15] MEDS: ESCITALOPRAM OXALATE 10 MG TAB (LEXAPRO) PO SCH (09:39)
[2020-03-15] MEDS: QUEtiapine FUMARATE 25 MG TAB PO SCH (09:39)
[2020-03-15] MEDS: METHADONE 10 MG TAB (S0109) PO SCH (09:40)
[2020-03-15] MEDS: buPROPion **XL** TABLET 150MG (WELLBUTRIN XL) PO SCH (09:40)
[2020-03-15] MEDS: busPIRone 5 MG TAB PO SCH (09:40)
[2020-03-15] MEDS: COMBIVENT RESPIMAT 100-20MCG INHALER 4GM INH SCH (09:41)
[2020-03-15] MEDS ORDERED: SERO150T2 PO ×2 (10:56→11:16)
[2020-03-15] MEDS ORDERED: LEXA1TAB PO (10:56)
[2020-03-15] MEDS ORDERED: BUSP5TA PO ×2 (10:56→11:16)
[2020-03-15] MEDS ORDERED: LEVO150T7 PO ×2 (10:56→11:16)
[2020-03-15] MEDS ORDERED: QUET1TAB7 PO ×2 (10:56→11:16)
[2020-03-15] MEDS ORDERED: BUPR300T92 PO ×2 (10:56→11:16)
[2020-03-15] MEDS ORDERED: ESCI10TA2 PO (11:16)
--- NOTE | 2020-03-15 13:44 | MHDSPDOC ---
[facility] Discharge Summary Discharge Summary DATE OF ADMISSION: Mar 05, 2020 at 16:00 DATE OF DISCHARGE: Mar 15, 2020 at 13:00 DISCHARGE DIAGNOSES: 1. Unspecified anxiety disorder. 2. MDD, recurrent, unspecified. 3. Opioid use disorder. REASON FOR ADMISSION: Patient is a 39 -year-old , female, who presented to [facility] with respiratory failure secondary to methadone combined with gabapentin, she was seen in consultation on the medical floor where she reported increasing anxiety and a lack of help from the gabapentin. She had reported that she became increasingly more dizzy and oversedated with accommodation. She reports that she is amenable to trying something new, she describes that the buspirone started last time she was here hasn't made much change but is at a small dose. She reports that she is amenable to her dose for now in order to reduce the station while the gabapentin is ceased on the unit. She additionally has not been taking care for thyroid causing her increased depression and loss of interest. CONSULTANTS INVOLVED: See H + P by Hospitalist TREATMENT AND PROGRESS ON THE UNIT: Patient was admitted to the [facility] on a 9.39 legal status he was afforded the following treatment modalities: 1) Individual Therapy 2) Group Therapy 3) Medication Management 4) Milieu Therapy 5) Safe Environment HOSPITAL COURSE: Patient was restarted on her home medications and was seen cooperative with [facility] admission. She was seen in the milieu, social with peers, attended groups and during this hospitalization she improved greatly and is able to be discharge today at her request. DISCHARGE ASSESSMENT: Patient is alert and oriented, denies depression and anxiety or suicidal ideation. She demonstrates good insight and judgment today and has been observed to be at her baseline. On interview, she has normal mental status and meets criteria for discharge today. MENTAL STATUS EXAMINATION ON DISCHARGE: Patient is a 39 -year-old , female, who presented to [facility] with respiratory failure secondary to methadone combined with gabapentin, she was seen in consultation on the medical floor where she reported increasing anxiety and a lack of help from the gabapentin. Speech: Is fluid, conversant, normal rate, tone and volume Language skills are intact Thought processes including: linear and goal oriented Thought content: denies depression and anxiety. Denies suicidal/homicidal ideation, planning or intent. Abstract reasoning, and computation: fair Description of associations: denies, none observed Description of abnormal or psychotic thoughts: denies, none observed. Judgment: good Insight: good Orientation: alert and oriented to person, place, time and situation Recent and remote memory: intact Attention span and concentration: good Language: expansive Fund of knowledge: average Mood: Euthymic Mood Affect: reactive MEDICATIONS ON DISCHARGE: See Medication Reconciliation PLAN/FOLLOWUP ARRANGEMENTS: Patient to Follow Up with [facility], See Domestic Housekeeper's Notes The amount of time spent in the coordination of care for this patient was approximately 25 minutes. Vital Signs/I&Os Vital Signs Date Time Temp Pulse Resp B/P (MAP) Pulse Ox O2 Delivery O2 Flow Rate FiO2 03/15/20 05:57 98.2 72 16 104/56 (72) 95 Room Air Medications Scheduled Bupropion HCl (Bupropion Xl) 300 Mg Tab.er.24h, 300 MG PO DAILY for Depression, #7 Buspirone HCl (Buspirone HCl) 5 Mg Tablet, 5 MG PO BID for Anxiety, #14 Escitalopram Oxalate (Escitalopram Oxalate) 10 Mg Tablet, 30 MG PO DAILY for Depression, #21 Levothyroxine Sodium (Levothyroxine Sodium) 150 Mcg Tablet, 150 MCG PO DAILY@06 for Thyroid, #7 Methadone HCl (Methadone HCl) 10 Mg/1 Ml Oral.conc, 140 MG PO DAILY, (Reported) Quetiapine Fumarate (Quetiapine Fumarate) 25 Mg Tablet, 25 MG PO BID for Mood Stabilization, #14 TAKES MORNING AND DINNERTIME Quetiapine Fumarate (Seroquel Xr) 150 Mg Tab.er.24h, 150 MG PO QHS for Sleep, #7 Scheduled PRN Albuterol Sulfate (Albuterol Sulfate Hfa) 8.5 Gm Hfa.aer.ad, 2 PUFFS INH Q4H PRN for SHORTNESS OF BREATH, (Reported) Trazodone HCl (Trazodone HCl) 150 Mg Tablet, 150 MG PO QHS PRN for SLEEP, (Reported) Allergies Coded Allergies: No Known Allergies (Verified , 10/22/18) BIPIN TIRADO NP Mar 15, 2020 13:44
== END 2020-03-15 13:00 | disposition home or self-care (01) | DRG 756 ==
LOC: M PSY 16:00 → M ED INP 03-07 01:56 → M PSY 03-07 01:57
PROVIDERS: ADMIT Psychiatry & Neurology Addiction Medicine; ATTEND Psychiatry & Neurology Addiction Medicine
DX: F41.9 Anxiety disorder, unspecified (principal); F33.9 Major depressive disorder, recurrent, unspecified; N18.30 Chronic kidney disease, stage 3 unspecified; E66.01 Morbid (severe) obesity due to excess calories; Z68.41 Body mass index [BMI] 40.0-44.9, adult; F11.10 Opioid abuse, uncomplicated; Z91.5 Personal history of self-harm; E03.9 Hypothyroidism, unspecified; G47.33 Obstructive sleep apnea (adult) (pediatric); D86.1 Sarcoidosis of lymph nodes; F17.200 Nicotine dependence, unspecified, uncomplicated; Z79.899 Other long term (current) drug therapy

== ENCOUNTER 2020-05-21 12:06 | Inpatient (IN) | payer OTHER ==
[~2020-05-21] VITALS: Ht 160 cm; Wt 109.5 kg
[~2020-05-21 12:06] MED LIST changes: -BUPR150T3 PO; +BUPR150T4 PO; +ESCI10TA16; +ESCI10TA16 PO; -ESCI10TA2; -ESCI10TA2 PO; -ESCI20TA PO; +ESCI20TA16 PO; +GABA-282 PO; -GABA-843 PO; -QUET1TAB7 PO; +QUET25TA3 PO; +QUET50TA3 PO; -QUET5TAB PO
--- OUTSIDE RECORDS SUMMARY | 2020-05-21 12:12 | CCD ---
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 Machine Tender Name Role Phone Tanvi Mckeon PCP Chief Complaint and Reason for Visit Chief Complaint Allergies, Adverse Reactions, Alerts Concept Allergy Name Reaction Severity Onset Date Status Documentation Date Phone Number Npid Taxonomy Code Taxonomy Desc Author Last Name Author Fi rst Name Concept Type [id number] nkda Active 03/10/2018 [id number] Psychiatric/Mental Health Marky Ludwig RXNORM Problem List Concept Problem Description Status Start Date Created Date Resolv ed Date Snomed Code F32.9 Unspecified depressive Disorder Active 05/07/19 21 F10.10 Alcohol Use Disorder, Mild Active 05/07/2020 F11.10 Opioid Use Disorder, Mild Active 05/07/2020 F12.10 Cannabis Use Disorder, Mild Active 05/07/2020 Z72.0 Tobacco Use Disorder, Mild Active 05/07/2020 Medications Rx Norm Medication Route Route Concept Start Date Stop Date Dosage Darek quency Duration Formula Strength Dosage Form Dosage Form Code Dosage Description Medication Id Account Npid Author First Name Author Last Name Taxonomy Code Taxonomy Desc Phone Number [phone] gabapentin 04/20/2019 600 mg tablet [id number] [id number] Yasmin Garcia [id number] Nurse Practitioner [id number] [id number] Seroquel 05/24/2019 30 25 mg tablet [id number] [phone] Yasmin Garcia [id number] Nurse Practitioner [phone] Social History Social History Element Description Concept Effective Date Smoking Status Unknown if ever smoked [id number] Immunizations No Data in Section Vital Signs No Data in Section Procedures Date Concept Id Description Targeted Site Concept Targeted Site Concept Type 05/07/2020 70436 Extended Individual Psychotherapy - 45 min CPT Patient has no history of implantable de vices Encounters Encounter Start Date End Date Encounter Type Description Diagnosis Di agnosis Desc Location Author First Name Author Last Name Npid Taxonomy Cod e Taxonomy Desc Phone Number Location Addr1 Location Addr2 Location [facility] Location Sta te Location [facility] [id number] 05/07/2020 05/07/2020 84825 Extended Individual Psych otherapy - 45 min F32.9 Major depressive disorder, single episode, unspecified [facility] [phone] [id number] Plastics Engineer [phone] [phone] Plan of Treatment No Data in Section Lab Results No Data in Section Instructions No Data in Section Insurance Providers Insurance Id Policy Effective Date Policy Thru Date TNT Crowd N tip [id number] 2019 [employer]-- Bernard RIVERA
--- OUTSIDE RECORDS SUMMARY | 2020-05-21 12:13 | CCD ---
Author Organization Unknown Address [address] [place] [address] Phone [phone] Care Team Providers Care Manager Java Name Role Phone Re Sherwood Unavailable Unavailable Allergies None recorded. Medications Name Status Start Date Stop Date acetaminophen 500 mg tablet TAKE TWO TABLETS BY MOUTH EVERY 6 HOURS NEEDED FOR PAIN OR DYSPNEA Active Not available albuterol sulfate HFA 90 mcg/actuation a erosol inhaler INHALE TWO PUFFS BY MOUTH EVERY 4 TO 6 HOURS NEEDED FOR wheezing Active Not available bupropion HCl XL 150 mg 24 hr tablet, extended release Active Not available bupropion HCl XL 300 mg 24 hr tablet, extended release Active Not available buspirone 5 mg tablet TAKE ONE TABLET BY MOUTH TWICE DAILY Active No t available cetirizine 10 mg tablet TAKE ONE TABLET BY MOUTH ONCE DAILY FOR FOR ALLERGY SYMPTOMS Active Not available doxycycline hyclate 100 mg tablet TAKE ONE TABLET BY MOUTH TWICE DAILY FOR mrsa Active Not available escitalopram 10 mg tablet Active Not av ailable escitalopram 20 mg tablet Active Not av ailable fluticasone propionate 50 mcg/actuation nasal spray,suspension INSTILL ONE SPRAY IN EACH NOSTRIL TWICE DAILY Active Not available gabapentin 300 mg capsule TAKE TWO CAPSULES BY MOUTH THREE TIMES DAILY Active Not available gabapentin 600 mg tablet TAKE ONE TABLET BY MOUTH THREE TIMES DAILY Active Not available gabapentin 800 mg tablet TAKE ONE TABLET BY MOUTH THREE TIMES DAILY Active Not available ibuprofen 800 mg tablet TAKE ONE TABLET BY MOUTH EVERY 6 HOURS NEEDED FOR PAIN Active Not available levothyroxine 100 mcg tablet TAKE TWO TABLETS BY MOUTH @6AM Active Not avai lable levothyroxine 150 mcg tablet TAKE ONE TABLET BY MOUTH ONCE DAILY Active Not available liothyronine 5 mcg tablet Active Not av ailable Mapap Arthritis Pain 650 mg tablet,exten ded release TAKE ONE TABLET BY MOUTH EVERY 6 HOURS NEEDED FOR PAIN OR FOR HIGH TEMPERATURE >101 Active Not available nicotine 21 mg/24 hr daily transdermal patch Active Not available nitrofurantoin monohydrate/macrocrystals 100 mg capsule Active Not available olanzapine 5 mg tablet TAKE ONE TABLET BY MOUTH TWICE DAILY NEEDED FOR ANXIETY OR AGITATION Active Not available prednisone 10 mg tablet TAKE 5 TABLETS BY MOUTH ONCE DAILY ON DAY 1, 4 TABLETS ON DAY 2, 3 TABLETS ON DAY 3, 2 TABLETS ON DAY 4, AND 1 TABLET ON DAYS 5&6 Active Not available propranolol 10 mg tablet TAKE ONE TABLET BY MOUTH TWICE DAILY Active No t available quetiapine 100 mg tablet TAKE ONE TABLET BY MOUTH AT BEDTIME Active Not available quetiapine 25 mg tablet TAKE ONE TABLET BY MOUTH TWICE DAILY Active No t available quetiapine 50 mg tablet TAKE ONE TABLET BY MOUTH TWICE DAILY Active No t available quetiapine ER 150 mg tablet,extended rel ease 24 hr TAKE ONE TABLET BY MOUTH AT BEDTIME Active Not available Sudogest 30 mg tablet TAKE ONE TABLET BY MOUTH THREE TIMES DAILY FOR COLD SYMPTOMS Active Not available sulfamethoxazole 800 mg-trimethoprim 160 mg tablet TAKE ONE TABLET BY MOUTH EVERY TWELVE HOURS Active Not available trazodone 100 mg tablet Active Not avai lable trazodone 150 mg tablet TAKE ONE TABLET BY MOUTH AT BEDTIME Active Not available Problems Name Status Onset Date Source Hypothyroidism Active 11/03/2017 History Syringomyelia Active 11/03/2017 History Impaired Fasting Glycemia Active 10/04/2018 Histor y Screening for Malignant Neoplasm of Cervix Active 10/04 History Clinical Finding Active 10/04/[address] Concept Active 10/04/2018 History 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 History Sarcoidosis Active 02/02/2019 History Psychoactive Substance Abuse Active 02/02/2019 His tory Influenza Vaccine Needed Active 02/02/2019 History Renal Impairment Active 02/02/2019 History Emotional State Finding Active 02/02/2019 History Susan Infection of Genital Region Active 02/02/2019 History Pathological Fracture - Ankle And/or Foot Active 2019 History Procedures Date Name Performed by Section Information not avai lable Results Lab Results None recorded. Past Encounters 02/28/2020 Dyspnea; Fall Re Sherwood, FRONT OFFICE CLERK-BC: [address] [place] [address], Ph. Social History None recorded. Vaccine List Vaccine Type influenza, injectable, quadrivalent, pre servative free 02/02/20190.5 mL Plan of Care Reminders Provider Appointments None recorded. Lab None recorded. Referral None recorded. Procedures None recorded. Surgeries None recorded. Imaging None recorded. Vitals 08/19/2019 Height Weight Blood Pressure 63 in 203 lbs 3.04 oz 102/79 mm[Hg] 02/17/2019 Height Weight Blood Pressure 63 in 192 lbs 12.8 oz 116/76 mm[Hg] 02/02/2019 Height Weight Blood Pressure 63 in 197 lbs 8 oz 120/85 mm[Hg] 10/04/2018 Height Weight Blood Pressure 63 in 208 lbs 4.96 oz 108/72 mm[Hg]
--- OUTSIDE RECORDS SUMMARY | 2020-05-21 12:13 | CCD ---
Author Organization Unknown Address [address] [place] [address] Phone [phone] Care Team Providers Care Director Of Casework Services Name Role Phone Re Sherwood Unavailable Unavailable Allergies Code Code System Name Reaction Severity Status Onset NKDA Medications Name Status Start Date Stop Date acetaminophen 500 mg tablet TAKE TWO TABLETS BY MOUTH EVERY 6 HOURS NEEDED FOR PAIN OR DYSPNEA Active Not available albuterol sulfate HFA 90 mcg/actuation a erosol inhaler INHALE TWO PUFFS BY MOUTH EVERY 4 TO 6 HOURS NEEDED FOR wheezing Active Not available bupropion HCl XL 150 mg 24 hr tablet, extended release Completed 04/27/2020 bupropion HCl XL 300 mg 24 hr tablet, ex tended release TAKE ONE TABLET BY MOUTH ONCE DAILY FOR depression Active Not available buspirone 5 mg tablet TAKE ONE TABLET BY MOUTH TWICE DAILY FOR ANXIETY Active Not available cetirizine 10 mg tablet TAKE ONE TABLET BY MOUTH ONCE DAILY FOR FOR ALLERGY SYMPTOMS Active Not available doxycycline hyclate 100 mg tablet TAKE ONE TABLET BY MOUTH TWICE DAILY FOR mrsa Completed 04/27/2020 escitalopram 10 mg tablet TAKE THREE TABLETS BY MOUTH ONCE DAILY Active Not available escitalopram 20 mg tablet Active Not av ailable fluticasone propionate 50 mcg/actuation nasal spray,suspension INSTILL ONE SPRAY IN EACH NOSTRIL TWICE DAILY Active Not available gabapentin 300 mg capsule TAKE TWO CAPSULES BY MOUTH THREE TIMES DAILY Completed 04/27/2020 gabapentin 600 mg tablet TAKE ONE TABLET BY MOUTH THREE TIMES DAILY Completed 04/27/2020 gabapentin 800 mg tablet TAKE ONE TABLET BY MOUTH THREE TIMES DAILY Active Not available ibuprofen 800 mg tablet TAKE ONE TABLET BY MOUTH EVERY 6 HOURS NEEDED FOR PAIN Active Not available levothyroxine 100 mcg tablet TAKE TWO TABLETS BY MOUTH @6AM Completed 04/27/19 levothyroxine 150 mcg tablet TAKE ONE TABLET BY MOUTH @6AM Active Not avail able liothyronine 5 mcg tablet Completed 2020 Mapap Arthritis Pain 650 mg tablet,exten ded [...] 4, AND 1 TABLET ON DAYS 5&6 Completed 04/27/2020 propranolol 10 mg tablet TAKE ONE TABLET BY MOUTH TWICE DAILY Active No t available quetiapine 100 mg tablet TAKE ONE TABLET BY MOUTH AT BEDTIME Completed quetiapine 25 mg tablet TAKE ONE TABLET BY MOUTH TWICE DAILY IN THE MORNING & AT DINNERTIME FOR mood stabilization Active Not available quetiapine 50 mg tablet TAKE ONE TABLET BY MOUTH TWICE DAILY Completed quetiapine ER 150 mg tablet,extended rel ease 24 hr TAKE ONE TABLET BY MOUTH AT BEDTIME FOR SLEEP Active Not available Sudogest 30 mg tablet TAKE ONE TABLET BY MOUTH THREE TIMES DAILY FOR COLD SYMPTOMS Active Not available sulfamethoxazole 800 mg-trimethoprim 160 mg tablet TAKE ONE TABLET BY MOUTH EVERY TWELVE HOURS Active Not available trazodone 100 mg tablet Completed 04/27/19 21 trazodone 150 mg tablet TAKE ONE TABLET [...] 2019 History Procedures Date Name Performed by Bilateral Tubal Ligation Information not available Section Information not avai lable Results Lab Results Date Name Specimen Result Interpretation Description Value Range Status Address 03/05/2020 [facility] Normal White Blood Count 5.4 10 4.0-10. 0 10 [facility]: [address] [facility] Normal Red Blood Count 4.20 10 4.00-5.40 10 [facility]: [address] [facility] Normal Hemoglobin 12.1 g/dL 12.0-15.5 g/dL [facility]: [address] [facility] Normal Hematocrit 39.0 % 36.0-47.0 % [facility]: [address] [facility] Normal Mean Corpuscular Volume 92.9 fL 80.0 -96.0 fL [facility]: [address] [facility] Normal Mean Corpuscular Hemoglobin 28.8 pg 27.0-33.0 pg [facility]: 0 [facility] Low Mean Corpuscular HGB Conc 31.0 g/dL 32.0-36.5 g/dL [facility]: 0 [facility] Normal Red Cell Distribution Width 14.2 % 1 1.5-14.5 % [facility]: 0 [facility] Low Platelet Count, Automated 97 10 150 -450 10 [facility]: 0 [facility] High Nucleated Red Blood Cell % 0.4 % 0- 0 % [facility]: [address] [facility] 03/05/2020 Reticulated Platelets, Percentage, Automated Count, Blood Normal Immature Platelet Fraction % 1.3 % 0.0-9.59 % [facility]: [address] [facility] 03/05/2020 BMP, Serum or Plasma Normal Glucose, Fastin g 97 mg/dL 70-100 mg/dL [facility]: 83 0 [facility] Normal Blood Urea Nitrogen 10 mg/dL 7-18 mg /dL [facility]: 0 [facility] High Creatinine for GFR 1.57 mg/dL 0.55-1 .30 mg/dL [facility]: 0 [facility] Low Glomerular Filtration Rate 39.5 >6 0 [facility]: 0 [facility] Normal Sodium Level 143 mEq/L 136-145 mEq/L [facility]: [address] [facility] Normal Potassium Serum 3.5 mEq/L 3.5-5.1 mE q/L [facility]: [address] [facility] High Chloride Level 110 mEq/L 98-107 mEq/ L [facility]: [address] [facility] Normal Carbon Dioxide Level 26 mEq/L 21-32 mEq/L [facility] [address] [facility] Low Anion Gap 7 mEq/L 8-16 mEq/L [facility]: [address] [facility] Normal Calcium Level 8.5 mg/dL 8.5-10.1 mg/ dL [facility]: 0 [facility] 03/05/2020 Magnesium, Serum or Plasma Normal Magnesium Level 2.0 mg/dL 1.8-2.4 mg/dL [facility]: 83 0 [facility] 03/04/2020 Cbc Normal White Blood Count 4.4 10 4.0-10. 0 10 [facility]: 0 [facility] Normal Red Blood Count 4.12 10 4.00-5.40 10 [facility]: 0 [facility] Low Hemoglobin 11.9 g/dL 12.0-15.5 g/dL [facility]: 0 [facility] Normal Hematocrit 39.4 % 36.0-47.0 % [facility]: 0 [facility] Normal Mean Corpuscular Volume 95.6 fL 80.0 -96.0 fL [facility]: [address] [facility] Normal Mean Corpuscular Hemoglobin 28.9 pg 27.0-33.0 pg [facility]: 0 [facility] Low Mean Corpuscular HGB Conc 30.2 g/dL 32.0-36.5 g/dL [facility]: 0 [facility] Normal Red Cell Distribution Width 14.2 % 1 1.5-14.5 % [facility]: [address] [facility] Low Platelet Count, Automated 101 10 150 -450 10 [facility]: [address] [facility] Normal Nucleated Red Blood Cell % 0.0 % 0- 0 % [facility]: [address] [facility] 03/04/2020 BMP, Serum or Plasma Normal Glucose, Fastin g 86 mg/dL 70-100 mg/dL [facility]: 83 0 [facility] Normal Blood Urea Nitrogen 8 mg/dL 7-18 mg/ dL [facility]: [address] [facility] High Creatinine for GFR 1.57 mg/dL 0.55-1 .30 mg/dL [facility]: 0 [facility] Low Glomerular Filtration Rate 39.5 >6 0 [facility]: [address] [facility] Normal Sodium Level 145 mEq/L 136-145 mEq/L [facility]: [address] [facility] Normal Potassium Serum 3.8 mEq/L 3.5-5.1 mE q/L [facility]: [address] [facility] High Chloride Level 111 mEq/L 98-107 mEq/ L [facility]: 0 [facility] Normal Carbon Dioxide Level 30 mEq/L 21-32 mEq/L [facility]: 0 [facility] Low Anion Gap 4 mEq/L 8-16 mEq/L [facility]: [address] [facility] Low Calcium Level 8.2 mg/dL 8.5-10.1 mg/ dL [facility]: [address] [facility] 03/04/2020 Magnesium, Serum or Plasma Normal Magnesium Level 2.1 mg/dL 1.8-2.4 mg/dL [facility]: 83 0 [facility] 03/03/2020 Cbc Normal White Blood Count 4.7 10 4.0-10. 0 10 [facility]: [address] [facility] Low Red Blood Count 3.99 10 4.00-5.40 10 [facility]: [address] [facility] Low Hemoglobin 11.6 g/dL 12.0-15.5 g/dL [facility]: 0 [facility] Normal Hematocrit 38.3 % 36.0-47.0 % [facility]: [address] [place] [address] Normal Mean Corpuscular Volume 96.0 fL 80.0 -96.0 fL [facility]: [address] [place] [address] Normal Mean Corpuscular Hemoglobin 29.1 pg 27.0-33.0 pg [facility]: [address] [place] [address] Low Mean Corpuscular HGB Conc 30.3 g/dL 32.0-36.5 g/dL [facility]: [address] [place] [address] Normal Red Cell Distribution Width 14.3 % 1 1.5-14.5 % [facility]: [address] [place] [address] Low Platelet Count, Automated 111 10 150 -450 10 [facility]: [address] [place] [address] Normal Nucleated Red Blood Cell % 0.0 % 0- 0 % [facility]: [address] [place] [address] 03/03/2020 BMP, Serum or Plasma Normal Glucose, Fastin g 70 mg/dL 70-100 mg/dL [facility]: 83 0 [facility] Normal Blood Urea Nitrogen 8 mg/dL 7-18 mg/ dL [facility]: [address] [place] [address] High Creatinine for GFR 1.48 mg/dL 0.55-1 .30 mg/dL [facility]: [address] [place] [address] Low Glomerular Filtration Rate 42.2 >6 0 [facility]: 0 [facility] Normal Sodium Level 144 mEq/L 136-145 mEq/L [facility]: [address] [place] [address] Normal Potassium Serum 3.6 mEq/L 3.5-5.1 mE q/L [facility]: [address] [place] [address] High Chloride Level 111 mEq/L 98-107 mEq/ L [facility]: 0 [facility] Normal Carbon Dioxide Level 29 mEq/L 21-32 mEq/L [facility]: 0 [facility] Low Anion Gap 4 mEq/L 8-16 mEq/L [facility]: 0 [facility] Low Calcium Level 8.0 mg/dL 8.5-10.1 mg/ dL [facility]: 0 [facility] 03/03/2020 Magnesium, Serum or Plasma Normal Magnesium Level 2.1 mg/dL 1.8-2.4 mg/dL [facility]: 83 0 [facility] 03/03/2020 Thyroid Panel, Serum Normal T Uptake 30 % 30 -39 % [facility]: 0 [facility] Normal Thyroxine (T4) 5.2 ug/dL 4.5-12.0 ug /dL [facility]: [address] [place] [address] Normal Free Thyroxine Index 1.6 % 1.3-4.8 % [facility]: [address] [place] [address] High Thyroid Stimulating Hormone 16 4.000 uIU/mL 0.358-3.740 uIU/mL [facility]: 0 [facility] 03/03/2020 Vitamin D 1,25 Dihydroxy Normal Vit raymond D 1,25 Dihydroxy 40.6 pg/mL 19.9-79.3 pg/mL [facility] nter: 0 [facility] 03/02/2020 Cbc Normal White Blood Count 6.5 10 4.0-10. 0 10 [facility]: 0 [facility] Low Red Blood Count 3.65 10 4.00-5.40 10 [facility]: 0 [facility] Low Hemoglobin 10.7 g/dL 12.0-15.5 g/dL [facility]: 0 [facility] Low Hematocrit 35.6 % 36.0-47.0 % [facility]: [address] [place] [address] High Mean Corpuscular Volume 97.5 fL 80.0 -96.0 fL [facility]: 0 [facility] Normal Mean Corpuscular Hemoglobin 29.3 pg 27.0-33.0 pg [facility]: [address] [facility] Low Mean Corpuscular HGB Conc 30.1 g/dL 32.0-36.5 g/dL [facility]: [address] [facility] Normal Red Cell Distribution Width 14.1 % 1 1.5-14.5 % [facility]: [address] [facility] Low Platelet Count, Automated 106 10 150 -450 10 [facility]: [address] [facility] Normal Nucleated Red Blood Cell % 0.0 % 0- 0 % [facility]: 0 [facility] 03/02/2020 BMP, Serum or Plasma Low Glucose, Fastin g 63 mg/dL 70-100 mg/dL [facility]: 83 0 [facility] Normal Blood Urea Nitrogen 10 mg/dL 7-18 mg /dL [facility]: 0 [facility] High Creatinine for GFR 1.39 mg/dL 0.55-1 .30 mg/dL [facility]: 0 [facility] Low Glomerular Filtration Rate 45.4 >6 0 [facility]: [address] [facility] High Sodium Level 146 mEq/L 136-145 mEq/L [facility]: [address] [facility] Normal Potassium Serum 3.8 mEq/L 3.5-5.1 mE q/L [facility]: [address] [facility] High Chloride Level 114 mEq/L 98-107 mEq/ L [facility]: [address] [facility] Normal Carbon Dioxide Level 27 mEq/L 21-32 mEq/L [facility]: 0 [facility] Low Anion Gap 5 mEq/L 8-16 mEq/L [facility]: 0 [facility] Low Calcium Level 7.6 mg/dL 8.5-10.1 mg/ dL [facility]: 0 [facility] 03/02/2020 Magnesium, Serum or Plasma Normal Magnesium Level 2.2 mg/dL 1.8-2.4 mg/dL [facility]: 83 0 [facility] 03/02/2020 Glucose, Fingerstick, Blood Normal Bedside Glucose 96 mg/dL 70- 105 mg/dL [facility]: 83 0 [facility] 03/02/2020 Thyroid Panel, Serum Normal T Uptake 30 % 30 -39 % [facility]: [address] [facility] Low Thyroxine (T4) 3.5 ug/dL 4.5-12.0 ug /dL [facility]: [address] [facility] Low Free Thyroxine Index 1.1 % 1.3-4.8 % [facility]: [address] [facility] High Thyroid Stimulating Hormone 27 3.000 uIU/mL 0.358-3.740 uIU/mL [facility]: [address] [facility] 03/01/2020 Gas Panel, Arterial Blood Low ABG pH (Ar terial) 7.328 units 7.350-7.450 units [facility]: 83 0 [facility] High ABG Partial Pressure CO2 45.2 mmHg 3 5.0-45.0 mmHg [facility]: [address] [facility] Normal ABG Partial Pressure O2 91.2 mmHg 75 .0-100.0 mmHg [facility]: [address] [facility] Normal ABG Total CO2 24.6 mEq/L 22.0-29.0 m Eq/L [facility]: [address] [facility] Normal Abg Hco3 23.2 mEq/L 22.0-26.0 mEq/L [facility]: [address] [facility] Low ABG Base Excess -2.8 -2.0-2.0 [place] [facility]: [address] [facility] Normal ABG Standard HCO3 22.1 mEq/L 22.0-26 .0 mEq/L [facility]: [address] [facility] Normal ABG O2 Saturation 96.9 % 95.0-99.0 % [facility]: [address] [facility] 03/01/2020 Gas Panel, Arterial Blood Low ABG pH (Ar terial) 7.306 units 7.350-7.450 units [facility]: 83 0 [facility] High ABG Partial Pressure CO2 51.5 mmHg 3 5.0-45.0 mmHg [facility]: [address] [facility] Normal ABG Partial Pressure O2 80.4 mmHg 75 .0-100.0 mmHg [facility]: [address] [facility] Normal ABG Total CO2 26.7 mEq/L 22.0-29.0 m Eq/L [facility]: [address] [facility] Normal Abg Hco3 25.1 mEq/L 22.0-26.0 mEq/L [facility]: [address] [facility] Normal ABG Base Excess -1.7 -2.0-2.0 [place] [facility]: [address] [facility] Normal ABG Standard HCO3 23.0 mEq/L 22.0-26 .0 mEq/L [facility]: [address] [facility] Normal ABG O2 Saturation 95.4 % 95.0-99.0 % [facility]: [address] [facility] 03/01/2020 Gas Panel, Arterial Blood Low ABG pH (Ar terial) 7.327 units 7.350-7.450 units [facility]: 83 0 [facility] High ABG Partial Pressure CO2 52.4 mmHg 3 5.0-45.0 mmHg [facility]: [address] [facility] Normal ABG Partial Pressure O2 87.0 mmHg 75 .0-100.0 mmHg [facility]: [address] [facility] Normal ABG Total CO2 28.4 mEq/L 22.0-29.0 m Eq/L [facility]: [address] [facility] High Abg Hco3 26.8 mEq/L 22.0-26.0 mEq/L [facility]: [address] [facility] Normal ABG Base Excess 0.2 -2.0-2.0 [place] [facility]: [address] [place] [address] Normal ABG Standard HCO3 24.6 mEq/L 22.0-26 .0 mEq/L [facility]: [address] [place] [address] Normal ABG O2 Saturation 96.6 % 95.0-99.0 % [facility]: [address] [place] [address] 03/01/2020 Angiotensin 1 Converting Enzym Normal Angiotensin 1 Converting Enzym 61 U/L 14-82 U/L [facility]: [address] [place] [address] 02/29/2020 Cbc Normal White Blood Count 8.8 10 4.0-10. 0 10 [facility]: [address] [place] [address] Normal Red Blood Count 4.24 10 4.00-5.40 10 [facility]: [address] [place] [address] Normal Hemoglobin 12.0 g/dL 12.0-15.5 g/dL [facility]: [address] [place] [address] Normal Hematocrit 40.1 % 36.0-47.0 % [facility]: [address] [place] [address] Normal Mean Corpuscular Volume 94.6 fL 80.0 -96.0 fL [facility]: [address] [place] [address] Normal Mean Corpuscular Hemoglobin 28.3 pg 27.0-33.0 pg [facility]: [address] [place] [address] Low Mean Corpuscular HGB Conc 29.9 g/dL 32.0-36.5 g/dL [facility]: [address] [place] [address] Normal Red Cell Distribution Width 14.0 % 1 1.5-14.5 % [facility]: [address] [place] [address] Normal Platelet Count, Automated 151 10 150 -450 10 [facility]: [address] [place] [address] Normal Nucleated Red Blood Cell % 0.0 % 0- 0 % [facility]: [address] [place] [address] 02/29/2020 BMP, Serum or Plasma High Glucose, Fastin g 131 mg/dL 70-100 mg/dL [facility]: 83 0 [facility] Normal Blood Urea Nitrogen 10 mg/dL 7-18 mg /dL [facility]: [address] [facility] High Creatinine for GFR 1.87 mg/dL 0.55-1 .30 mg/dL [facility]: [address] [facility] Low Glomerular Filtration Rate 32.3 >6 0 [facility]: [address] [facility] Normal Sodium Level 140 mEq/L 136-145 mEq/L [facility]: [address] [facility] Normal Potassium Serum 4.2 mEq/L 3.5-5.1 mE q/L [facility]: [address] [facility] Normal Chloride Level 106 mEq/L 98-107 mEq/ L [facility]: [address] [facility] Normal Carbon Dioxide Level 28 mEq/L 21-32 mEq/L [facility]: [address] [facility] Low Anion Gap 6 mEq/L 8-16 mEq/L [facility]: [address] [facility] Low Calcium Level 8.4 mg/dL 8.5-10.1 mg/ dL [facility]: 0 [facility] 02/29/2020 Magnesium, Serum or Plasma Normal Magnesium Level 2.2 mg/dL 1.8-2.4 mg/dL [facility]: 83 0 [facility] 02/29/2020 Gas Panel, Arterial Blood Low ABG pH (Ar terial) 7.346 units 7.350-7.450 units [facility]: 83 0 [facility] High ABG Partial Pressure CO2 51.7 mmHg 3 5.0-45.0 mmHg [facility]: 0 [facility] Low ABG Partial Pressure O2 59.0 mmHg 75 .0-100.0 mmHg [facility]: 0 [facility] High ABG Total CO2 29.2 mEq/L 22.0-29.0 m Eq/L [facility]: [address] [facility] High Abg Hco3 27.6 mEq/L 22.0-26.0 mEq/L [facility]: [address] [facility] Normal ABG Base Excess 1.2 -2.0-2.0 [facility]: [address] [facility] Normal ABG Standard HCO3 25.3 mEq/L 22.0-26 .0 mEq/L [facility]: [address] [facility] Low ABG O2 Saturation 90.2 % 95.0-99.0 % [facility]: [address] [facility] 02/29/2020 Gas Panel, Arterial Blood Low ABG pH (Ar terial) 7.327 units 7.350-7.450 units [facility]: 83 0 [facility] High ABG Partial Pressure CO2 55.0 mmHg 3 5.0-45.0 mmHg [facility]: 0 [facility] Normal ABG Partial Pressure O2 76.0 mmHg 75 .0-100.0 mmHg [facility]: [address] [facility] High ABG Total CO2 29.8 mEq/L 22.0-29.0 m Eq/L [facility]: [address] [facility] High Abg Hco3 28.2 mEq/L 22.0-26.0 mEq/L [facility]: [address] [facility] Normal ABG Base Excess 1.2 -2.0-2.0 [facility]: [address] [facility] Normal ABG Standard HCO3 25.5 mEq/L 22.0-26 .0 mEq/L [facility]: [address] [facility] Normal ABG O2 Saturation 95.0 % 95.0-99.0 % [facility]: 0 [facility] 02/28/2020 CBC W/ Auto Diff Normal White Blood Count 6.0 10 4.0-10.0 10 [facility]: [address] [facility] Normal Red Blood Count 4.71 10 4.00-5.40 10 [facility]: [address] [facility] Normal Hemoglobin 13.8 g/dL 12.0-15.5 g/dL [facility]: [address] [place] [address] Normal Hematocrit 44.9 % 36.0-47.0 % [facility]: [address] [place] [address] Normal Mean Corpuscular Volume 95.3 fL 80.0 -96.0 fL [facility]: [address] [place] [address] Normal Mean Corpuscular Hemoglobin 29.3 pg 27.0-33.0 pg [facility]: [address] [place] [address] Low Mean Corpuscular HGB Conc 30.7 g/dL 32.0-36.5 g/dL [facility]: [address] [place] [address] Normal Red Cell Distribution Width 14.3 % 1 1.5-14.5 % [facility]: [address] [place] [address] Low Platelet Count, Automated 148 10 150 -450 10 [facility]: 0 [facility] High Neutrophils % 67.9 % 36.0-66.0 % [facility]: [address] [place] [address] Low Lymph % 17.1 % 24.0-44.0 % [facility]: [address] [place] [address] High [place] % 6.0 % 0.0-5.0 % [facility]: [address] [place] [address] High Eos % 3.8 % 0.0-3.0 % [facility]: [address] [place] [address] High Baso % 1.2 % 0.0-1.0 % [facility]: [address] [place] [address] High Immature Granulocyte % 4.0 % 0-3.0 % [facility]: [address] [place] [address] Normal Nucleated Red Blood Cell % 0.0 % 0- 0 % [facility]: [address] [place] [address] Normal Neutrophils # 4.1 10 1.5-8.5 10 [facility]: [address] [place] [address] Low Lymph # 1.0 10 1.5-5.0 10 [facility]: [address] [facility] Normal [place] # 0.4 10 0.0-0.8 10 [facility]: [address] [facility] Normal Eos # 0.2 10 0.0-0.5 10 [facility]: [address] [facility] Normal Baso # 0.1 10 0.0-0.2 10 [facility]: [address] [facility] 02/28/2020 Istat Chem8+ Panel Normal Istat HCT 46.0 % 38. 0-51.0 % [facility]: [address] [facility] Normal Istat Glucose 94 mg/dL 70-105 mg/dL [facility]: [address] [facility] Normal Istat Sodium 138 mEq/L 136-145 mEq/L [facility]: [address] [facility] Panic High Istat Potassium 6.9 mEq/L 3.5-5. 1 mEq/L [facility]: [address] [facility] Low Istat Ca++ 4.4 mg/dL 4.5-5.3 mg/dL [facility]: [address] [facility] Normal Istat Chloride 100 mEq/L 98-109 mEq/ L [facility]: [address] [facility] High Istat CO2 32.0 mm/L 23.0-27.0 mm/L [facility]: [address] [facility] Normal Istat BUN 12 mg/dL 8-26 mg/dL [facility]: 0 [facility] High Istat Creatinine 2.3 mg/dL 0.6-1.3 m g/dL [facility]: [address] [facility] 02/28/2020 Ctni Istat Normal Istat Troponin 0.01 NG/m L 0.00-0.08 NG/mL [facility]: [address] [facility] 02/28/2020 COVID-19 RNA (SARS-CoV-2), QL, lead javascript engineer-PCR, Respirat ory Specimen Normal Sars Covid-19 Amplification negative negative [facility]: 0 [facility] 02/28/2020 Hepatic Function Panel, Serum Normal AST/SG OT 18 U/L 7-37 U/L [facility]: 0 [facility] Low ALT/SGPT 11 U/L 12-78 U/L [facility]: [address] [facility] Normal Alkaline Phosphatase 98 U/L 45-117 U /L [facility]: [address] [facility] Normal Bilirubin,total 0.3 mg/dL 0.2-1.0 mg /dL [facility]: 0 [facility] Normal Bilirubin,direct < 0.1 mg/dL 0.0-0.2 mg/dL [facility]: 0 [facility] Normal Total Protein 7.8 gm/dL 6.4-8.2 gm/d L [facility]: [address] [facility] Normal Albumin 4.0 gm/dL 3.2-5.2 gm/dL [place] [facility]: 0 [facility] Low Albumin/globulin Ratio 1.1 1.2-2. 2 [facility]: [address] [facility] 02/28/2020 BMP, Serum or Plasma High Glucose, Fastin g 108 mg/dL 70-100 mg/dL [facility]: 83 0 [facility] Normal Blood Urea Nitrogen 11 mg/dL 7-18 mg /dL [facility]: 0 [facility] High Creatinine for GFR 2.30 mg/dL 0.55-1 .30 mg/dL [facility]: 0 [facility] Low Glomerular Filtration Rate 25.4 >6 0 [facility]: [address] [facility] Normal Sodium Level 137 mEq/L 136-145 mEq/L [facility]: 0 [facility] Normal Potassium Serum 4.4 mEq/L 3.5-5.1 mE q/L [facility]: [address] [place] [address] Normal Chloride Level 103 mEq/L 98-107 mEq/ L [facility]: [address] [place] [address] Normal Carbon Dioxide Level 31 mEq/L 21-32 mEq/L [facility]: [address] [place] [address] Low Anion Gap 3 mEq/L 8-16 mEq/L [facility]: [address] [place] [address] Normal Calcium Level 9.6 mg/dL 8.5-10.1 mg/ dL [facility]: [address] [place] [address] 02/28/2020 TSH, Serum or Plasma High Thyroid Stimulating Hormone 190.000 uIU/mL 0.358-3.740 uIU/mL [facility] nter: [address] [place] [address] 02/28/2020 beta-HCG, Qualitative, Serum or Plasma Normal HCG, Serum Qualitative negative negative [facility]: [address] [place] [address] 02/28/2020 Istat ABG Normal Istat pH 7.359 units 7.350-7. 450 units [facility]: [address] [place] [address] High Istat pCO2 51.0 mmHg 35.0-45.0 mmHg [facility]: [address] [place] [address] CRITICAL LOW Istat pO2 46.0 mmHg 80-105 mmH g [facility]: [address] [place] [address] High Istat TCO2 30.0 mmol/L 23.0-27.0 mmo l/L [facility]: [address] [place] [address] High Istat HCO3 28.7 mmol/L 22.0-26.0 mmo l/L [facility]: [address] [place] [address] Normal Istat Base Excess 3.0 mmol/L -2.0-3. 0 mmol/L [facility]: [address] [place] [address] Low Istat So2 79 % 95-98 % [facility]: [address] [place] [address] 02/28/2020 CK (Creatine Kinase) Mb, Quantitative, Blood Hi gh CPK Creatine Phosphokinase 277 U/L 26-192 U/L [facility]: [address] [facility] 02/28/2020 Uric Acid, Serum or Plasma High Uric Acid 8.3 mg/dL 2.6-6.0 mg/dL [facility]: 83 0 [facility] 02/28/2020 Magnesium, Serum or Plasma Normal Magnesium Level 2.1 mg/dL 1.8-2.4 mg/dL [facility]: 83 0 [facility] 02/28/2020 Osmolality, Serum Normal Osmolality Serum 292 mOsm/kg 275-295 mOsm/kg [facility]: 83 0 [facility] 02/28/2020 T4, Free, Serum Low Free T4 0.19 NG/dL 0.76 -1.46 NG/dL [facility]: [address] [facility] 02/28/2020 Free T3 Low Free T3 < 0.5 pg/mL 2.2-4.0 pg/ mL [facility]: [address] [facility] 02/28/2020 D-dimer, Quant, Plasma High D-dimer Quant 1194.11 NG/mL <500 NG/mL [facility]: 83 0 [facility] 02/28/2020 Procalcitonin, Serum Normal Procalcitonin <0.0 5 [facility]: [address] [facility] 02/28/2020 Urinalysis, Dipstick High Appearance, Urine cloudy clear [facility]: [address] [facility] Normal Color, Urine yellow yellow [facility]: [address] [facility] Normal pH,urine 7.0 units 5.0-9.0 units [facility]: [address] [facility] Normal Specific [place] Urine Auto 1.016 1 .002-1.035 [facility]: [address] [facility] Normal Protein, Urine Auto negative mg/dL n egative mg/dL [facility]: [address] [facility] Normal Glucose, Urine (UA) Auto negative mg /dL negative mg/dL [facility]: [address] [facility] Normal Ketone, Urine Auto negative mg/dL ne gative mg/dL [facility]: [address] [facility] Normal Urobilinogen, Urine Auto 0.2 mg/dL 0 .0-2.0 mg/dL [facility]: [address] [facility] Normal Bilirubin, Urine Auto negative negat doron [facility]: [address] [facility] Normal Nitrite, Urine Auto positive negativ e [facility]: [address] [facility] High Leukocyte Esterase, Urine Auto 1+ negative [facility]: [address] [facility] Normal Blood, Urine Blood negative negative [facility]: [address] [facility] High WBC, Urine Auto 13 /hpf 0-3 /hpf [facility]: [address] [facility] Normal RBC, Urine Auto 1 /hpf 0-3 /hpf [facility]: [address] [facility] High Bacteria, Urine Auto 3+ negative [facility]: [address] [facility] Normal Squamous Epithelial Cell Ur AU 5 /hp f 0-6 /hpf [facility]: [address] [facility] Normal Transitional Epithelial Auto <1 /hpf none /hpf [facility]: [address] [facility] Normal Mucus, Urine small negative [facility]: [address] [facility] Normal Hyaline Cast, Urine Auto 0 /lpf 0-1 /lpf [facility]: [address] [facility] 02/28/2020 Osmolality, Urine Normal Osmolality Urine 523 mOsm/kg 500-800 mOsm/kg [facility]: 83 0 [facility] 02/28/2020 Creatinine, Urine Normal Creatinine,random Urine 165.0 mg/dL [facility]: [address] [facility] 02/28/2020 Sodium, Urine Normal Sodium,random Urine 61 mE q/L [facility]: [address] [facility] 02/28/2020 Potassium, Urine Normal Potassium Random Ur ine 96.0 mEq/L Final [facility]: [address] [facility] Past Encounters 04/27/2020 Severe Recurrent Major Depression without Psychotic Features; Hypothyroidism; Sarcoidosis; Nicotine Dependence with [facility] [address] [place] [address], Ph. 02/28/2020 Dyspnea; [facility] [address] [place] [address], Ph. Social History Tobacco Smoking Status Heavy Tobacco Smoker (1/2 PPD) Vaccine List Vaccine Type influenza, injectable, quadrivalent, pre servative free 02/02/20190.5 mL Plan of Care Reminders Provider Appointments None recorded. Lab None recorded. Referral None recorded. Procedures None recorded. Surgeries None recorded. Imaging None recorded. Vitals 04/27/2020 03:20PM HOSPITAL DISCHARGE Height Weight BMI Blood Pressure 63 in 238 lbs 6 oz 42.2 kg/m2 101/72 mm[Hg] 08/19/2019 Height Weight Blood Pressure 63 in 203 lbs 3.04 oz 102/79 mm[Hg] 02/17/2019 Height Weight Blood Pressure 63 in 192 lbs 12.8 oz 116/76 mm[Hg] 02/02/2019 Height Weight Blood Pressure 63 in 197 lbs 8 oz 120/85 mm[Hg] 10/04/2018 Height Weight Blood Pressure 63 in 208 lbs 4.96 oz 108/72 mm[Hg]
--- OUTSIDE RECORDS SUMMARY | 2020-05-21 12:14 | CCD ---
Author Author [facility] Organization [facility] Address Unknown Phone Unavailable Care Team Providers Care Tobacco Stemmer Name Role Phone MCELHERAN, GEOFF PA Unavailable Unavailable MCELHERAN, GEOFF PA Unavailable Unavailable MCELHERAN, GEOFF PA Unavailable Unavailable MCELHERAN, GEOFF PA Unavailable Unavailable MCELHERAN, GEOFF PA Unavailable Unavailable MCELHERAN, GEOFF PA Unavailable Unavailable MCELHERAN, GEOFF PA Unavailable Unavailable MCELHERAN, GEOFF PA Unavailable Unavailable MCELHERAN, GEOFF PA Unavailable Unavailable MCELHERAN, GEOFF PA Unavailable Unavailable MCELHERAN, GEOFF PA Unavailable Unavailable MCELHERAN, GEOFF PA Unavailable Unavailable MCELHERAN, GEOFF PA Unavailable Unavailable MCELHERAN, GEOFF PA Unavailable Unavailable MCELHERAN, GEOFF PA Unavailable Unavailable MCELHERAN, GEOFF PA Unavailable Unavailable MCELHERAN, GEOFF PA Unavailable Unavailable MCELHERAN, GEOFF PA Unavailable Unavailable MCELHERAN, GEOFF PA Unavailable Unavailable MCELHERAN, GEOFF PA Unavailable Unavailable MCELHERAN, GEOFF PA Unavailable Unavailable MCELHERAN, GEOFF PA Unavailable Unavailable MCELHERAN, GEOFF PA Unavailable Unavailable MCELHERAN, GEOFF PA Unavailable Unavailable MCELHERAN, GEOFF PA Unavailable Unavailable MCELHERAN, GEOFF PA Unavailable Unavailable MCELHERAN, GEOFF PA Unavailable Unavailable MCELHERAN, GEOFF PA Unavailable Unavailable Shena Taylor ZIGZAG ELASTIC ATTACHER ZIGZAG ELASTIC ATTACHER Unavailable Unavailable MCELHERAN, GEOFF PA Unavailable Unavailable MCELHERAN, GEOFF PA Unavailable Unavailable MCELHERAN, GEOFF PA Unavailable Unavailable MCELHERAN, GEOFF PA Unavailable Unavailable MCELHERAN, GEOFF PA Unavailable Unavailable MCELHERAN, GEOFF PA Unavailable Unavailable MCELHERAN, GEOFF PA Unavailable Unavailable MCELHERAN, GEOFF PA Unavailable Unavailable MCELHERAN, GEOFF PA Unavailable Unavailable MCELHERAN, GEOFF PA Unavailable Unavailable MCELHERAN, GEOFF PA Unavailable Unavailable MCELHERAN, GEOFF PA Unavailable Unavailable MCELHERAN, GEOFF PA Unavailable Unavailable MCELHERAN, GEOFF PA Unavailable Unavailable MCELHERAN, GEOFF PA Unavailable Unavailable MCELHERAN, GEOFF PA Unavailable Unavailable MCELHERAN, GEOFF PA Unavailable Unavailable MCELHERAN, GEOFF PA Unavailable Unavailable MCELHERAN, GEOFF PA Unavailable Unavailable MCELHERAN, GEOFF PA Unavailable Unavailable MCELHERAN, GEOFF PA Unavailable Unavailable MCELHERAN, GEOFF PA Unavailable Unavailable MCELHERAN, GEOFF PA Unavailable Unavailable MCELHERAN, GEOFF PA Unavailable Unavailable MCELHERAN, GEOFF PA Unavailable Unavailable MCELHERAN, GEOFF PA Unavailable Unavailable MCELHERAN, GEOFF PA Unavailable Unavailable MCELHERAN, GEOFF PA Unavailable Unavailable Christiane Alvarenga Unavailable Tanvi Mckeon Unavailable Taylor, Damian Shena ZIGZAG ELASTIC ATTACHER-BC Unavailable Unavailable Taylor, F Shena ZIGZAG ELASTIC ATTACHER-BC Unavailable Unavailable Taylor, F Shena ZIGZAG ELASTIC ATTACHER-BC Unavailable Unavailable Taylor, F Shena ZIGZAG ELASTIC ATTACHER-BC Unavailable Unavailable Taylor, F Shena ZIGZAG ELASTIC ATTACHER-BC Unavailable Unavailable Taylor, F Shena ZIGZAG ELASTIC ATTACHER-BC Unavailable Unavailable Taylor, F Shena ZIGZAG ELASTIC ATTACHER-BC Unavailable Unavailable Taylor, F Shena ZIGZAG ELASTIC ATTACHER-BC Unavailable Unavailable Taylor, F Shena ZIGZAG ELASTIC ATTACHER-BC Unavailable Unavailable Taylor, F Shena ZIGZAG ELASTIC ATTACHER-BC Unavailable Unavailable Taylor, F Shena ZIGZAG ELASTIC ATTACHER-BC Unavailable Unavailable Taylor, F Shena ZIGZAG ELASTIC ATTACHER-BC Unavailable Unavailable Taylor, F Shena ZIGZAG ELASTIC ATTACHER-BC Unavailable Unavailable Taylor, F Shena ZIGZAG ELASTIC ATTACHER-BC Unavailable Unavailable Taylor, F Shena ZIGZAG ELASTIC ATTACHER-BC Unavailable Unavailable Taylor, F Shena ZIGZAG ELASTIC ATTACHER-BC Unavailable Unavailable Taylor, F Shena ZIGZAG ELASTIC ATTACHER-BC Unavailable Unavailable Taylor, F Shena ZIGZAG ELASTIC ATTACHER-BC Unavailable Unavailable Taylor, F Shena ZIGZAG ELASTIC ATTACHER-BC Unavailable Unavailable Taylor, F Shena ZIGZAG ELASTIC ATTACHER-BC Unavailable Unavailable Taylor, F Shena ZIGZAG ELASTIC ATTACHER-BC Unavailable Unavailable Taylor, F Shena ZIGZAG ELASTIC ATTACHER-BC Unavailable Unavailable Kinza Richter MD Unavailable Unavailable Kinza Richter MD Unavailable Unavailable Kinza Richter MD Unavailable Unavailable Kinza Richter MD Unavailable Unavailable Kinza Richter MD Unavailable Unavailable Kinza Richter MD Unavailable Unavailable Kinza Richter MD Unavailable Unavailable Kinza Richter MD Unavailable Unavailable Kinza Richter MD Unavailable Unavailable Kinza Richter MD Unavailable Unavailable Kinza Richter MD Unavailable Unavailable Kinza Richter MD Unavailable Unavailable Kinza Richter MD Unavailable Unavailable Kinza Richter MD Unavailable Unavailable Kinza Richter MD Unavailable Unavailable Kinza Richter MD Unavailable Unavailable Kinza Richter MD Unavailable Unavailable Kinza Richter MD Unavailable Unavailable Kinza Richter MD Unavailable Unavailable Kinza Richter MD Unavailable Unavailable Kinza Richter MD Unavailable Unavailable Kinza Richter MD Unavailable Unavailable Kinza Richter MD Unavailable Unavailable Kinza Richter MD Unavailable Unavailable Kinza Richter MD Unavailable Unavailable Kinza Richter MD Unavailable Unavailable Kinza Richter MD Unavailable Unavailable Kinza Richter MD Unavailable Unavailable Kinza Richter MD Unavailable Unavailable Kinza Richter MD Unavailable Unavailable Kinza Richter MD Unavailable Unavailable Kinza Richter MD Unavailable Unavailable Kinza Richter MD Unavailable Unavailable Kinza Richter MD Unavailable Unavailable Kinza Richter MD Unavailable Unavailable Kinza Richter MD Unavailable Unavailable Kinza Richter MD Unavailable Unavailable Kinza Richter MD Unavailable Unavailable Kinza Richter MD Unavailable Unavailable Kinza Richter MD Unavailable Unavailable Kinza Richter MD Unavailable Unavailable Kinza Richter MD Unavailable Unavailable Kinza Richter MD Unavailable Unavailable Kinza Richter MD Unavailable Unavailable Kinza Richter MD Unavailable Unavailable Kinza Richter MD Unavailable Unavailable Kinza Richter MD Unavailable Unavailable Kinza Richter MD Unavailable Unavailable Kinza Richter MD Unavailable Unavailable Kinza Richter MD Unavailable Unavailable Kinza Richter MD Unavailable Unavailable Kinza Richter MD Unavailable Unavailable Kinza Richter MD Unavailable Unavailable Kinza Richter MD Unavailable Unavailable Kinza Richter MD Unavailable Unavailable Kinza Richter MD Unavailable Unavailable Kinza Richter MD Unavailable Unavailable Kinza Richter MD Unavailable Unavailable Kinza Richter MD Unavailable Unavailable Kinza Richter MD Unavailable Unavailable Kinza Richter MD Unavailable Unavailable Kinza Richter MD Unavailable Unavailable Kinza Richter MD Unavailable Unavailable Kinza Richter MD Unavailable Unavailable Kinza Richter MD Unavailable Unavailable Kinza Richter MD Unavailable Unavailable Kinza Richter MD Unavailable Unavailable Kinza Richter MD Unavailable Unavailable Kinza Richter MD Unavailable Unavailable Kinza Richter MD Unavailable Unavailable Kinza Richter MD Unavailable Unavailable Kinza Richter MD Unavailable Unavailable Kinza Richter MD Unavailable Unavailable Kinza Richter MD Unavailable Unavailable Kinza Richter MD Unavailable Unavailable Kinza Richter MD Unavailable Unavailable Kinza Richter MD Unavailable Unavailable Kinza Richter MD Unavailable Unavailable Kinza Richter MD Unavailable Unavailable Kinza Richter MD Unavailable Unavailable Kinza Richter MD Unavailable Unavailable Kinza Richter MD Unavailable Unavailable Kinza Richter MD Unavailable Unavailable Kinza Richter MD Unavailable Unavailable Kinza Richter MD Unavailable Unavailable Kinza Richter MD Unavailable Unavailable Kinza Richter MD Unavailable Unavailable Kinza Richter MD Unavailable Unavailable Kinza Richter MD Unavailable Unavailable Doremus, E Ariella PA Unavailable Unavailable Doremus, E Ariella PA Unavailable Unavailable Doremus, E Ariella PA Unavailable Unavailable Doremus, E Ariella PA Unavailable Unavailable Doremus, E Ariella PA Unavailable Unavailable Doremus, E Ariella PA Unavailable Unavailable Doremus, E Ariella PA Unavailable Unavailable Doremus, E Ariella PA Unavailable Unavailable Doremus, E Ariella PA Unavailable Unavailable Doremus, E Ariella PA Unavailable Unavailable Doremus, E Ariella PA Unavailable Unavailable Doremus, E Ariella PA Unavailable Unavailable Doremus, E Ariella PA Unavailable Unavailable Doremus, E Ariella PA Unavailable Unavailable Doremus, E Ariella PA Unavailable Unavailable Doremus, E Ariella PA Unavailable Unavailable Doremus, E Ariella PA Unavailable Unavailable Doremus, E Ariella PA Unavailable Unavailable Doremus, E Ariella PA Unavailable Unavailable Presley, A Re ZIGZAG ELASTIC ATTACHER Unavailable Unavailable Presley, A Re ZIGZAG ELASTIC ATTACHER Unavailable Unavailable Presley, A Re ZIGZAG ELASTIC ATTACHER Unavailable Unavailable Presley, A Re ZIGZAG ELASTIC ATTACHER Unavailable Unavailable Presley, A Re ZIGZAG ELASTIC ATTACHER Unavailable Unavailable Scheller, A Re ZIGZAG ELASTIC ATTACHER Unavailable Unavailable Scheller, A Re ZIGZAG ELASTIC ATTACHER Unavailable Unavailable Scheller, A Re ZIGZAG ELASTIC ATTACHER Unavailable Unavailable Scheller, A Re ZIGZAG ELASTIC ATTACHER Unavailable Unavailable Scheller, A Re ZIGZAG ELASTIC ATTACHER Unavailable Unavailable Scheller, A Re ZIGZAG ELASTIC ATTACHER Unavailable Unavailable Scheller, A Re ZIGZAG ELASTIC ATTACHER Unavailable Unavailable Scheller, A Re ZIGZAG ELASTIC ATTACHER Unavailable Unavailable Scheller, A Re ZIGZAG ELASTIC ATTACHER Unavailable Unavailable Scheller, A Re ZIGZAG ELASTIC ATTACHER Unavailable Unavailable Scheller, A Re ZIGZAG ELASTIC ATTACHER Unavailable Unavailable Scheller, A Re ZIGZAG ELASTIC ATTACHER Unavailable Unavailable Scheller, A Re ZIGZAG ELASTIC ATTACHER Unavailable Unavailable Scheller, A Re ZIGZAG ELASTIC ATTACHER Unavailable Unavailable Scheller, A Re ZIGZAG ELASTIC ATTACHER Unavailable Unavailable Scheller, A Re ZIGZAG ELASTIC ATTACHER Unavailable Unavailable Scheller, A Re ZIGZAG ELASTIC ATTACHER Unavailable Unavailable Scheller, A Re ZIGZAG ELASTIC ATTACHER Unavailable Unavailable Scheller, A Re ZIGZAG ELASTIC ATTACHER Unavailable Unavailable Scheller, A Re ZIGZAG ELASTIC ATTACHER Unavailable Unavailable Scheller, A Re ZIGZAG ELASTIC ATTACHER Unavailable Unavailable Scheller, A Re ZIGZAG ELASTIC ATTACHER Unavailable Unavailable Presley, A Re ZIGZAG ELASTIC ATTACHER Unavailable Unavailable Radha Hurst MD Unavailable Unavailable Radha Hurst MD Unavailable Unavailable Radha Hurst MD Unavailable Unavailable Radha Hurst MD Unavailable Unavailable Radha Hurst MD Unavailable Unavailable Radha Hurst MD Unavailable Unavailable Radha Hurst MD Unavailable Unavailable Radha Hurst MD Unavailable Unavailable Radha Hurst MD Unavailable Unavailable Radha Hurst MD Unavailable Unavailable Radha Hurst MD Unavailable Unavailable Radha Hurst MD Unavailable Unavailable Radha Hurst MD Unavailable Unavailable Radha Hurst MD Unavailable Unavailable Radha Hurst MD Unavailable Unavailable Radha Hurst MD Unavailable Unavailable Radha Hurst MD Unavailable Unavailable Radha Hurst MD Unavailable Unavailable Radha Hurst MD Unavailable Unavailable Radha Hurst MD Unavailable Unavailable Radha Hurst MD Unavailable Unavailable Radha Hurst MD Unavailable Unavailable Radha Hurst MD Unavailable Unavailable Radha Hurst MD Unavailable Unavailable Radha Hurst MD Unavailable Unavailable DAREK, H HARMAN FLIGHT INSTRUCTOR Unavailable Unavailable DAREK, H HARMAN FLIGHT INSTRUCTOR Unavailable Unavailable DAREK, H HARMAN FLIGHT INSTRUCTOR Unavailable Unavailable DAREK, H HARMAN FLIGHT INSTRUCTOR Unavailable Unavailable DAREK, H HARMAN FLIGHT INSTRUCTOR Unavailable Unavailable DAREK, H HARMAN FLIGHT INSTRUCTOR Unavailable Unavailable DAREK, H HARMAN FLIGHT INSTRUCTOR Unavailable Unavailable Jesus Chely Unavailable Presley, Re ZIGZAG ELASTIC ATTACHER ZIGZAG ELASTIC ATTACHER Unavailable Unavailable Presley, A Re ZIGZAG ELASTIC ATTACHER Unavailable Unavailable Presley, A Re ZIGZAG ELASTIC ATTACHER Unavailable Unavailable Presley, A Re ZIGZAG ELASTIC ATTACHER Unavailable Unavailable Presley, A Re ZIGZAG ELASTIC ATTACHER Unavailable Unavailable Presley, A Re ZIGZAG ELASTIC ATTACHER Unavailable Unavailable Presley, A Re ZIGZAG ELASTIC ATTACHER Unavailable Unavailable Presley, A Re ZIGZAG ELASTIC ATTACHER Unavailable Unavailable Presley, A Re ZIGZAG ELASTIC ATTACHER Unavailable Unavailable Presley, A Re ZIGZAG ELASTIC ATTACHER Unavailable Unavailable Presley, A Re ZIGZAG ELASTIC ATTACHER Unavailable Unavailable Presley, A Re ZIGZAG ELASTIC ATTACHER Unavailable Unavailable Presley, A Re ZIGZAG ELASTIC ATTACHER Unavailable Unavailable Presley, A Re ZIGZAG ELASTIC ATTACHER Unavailable Unavailable Presley, A Re ZIGZAG ELASTIC ATTACHER Unavailable Unavailable Presley, A Re ZIGZAG ELASTIC ATTACHER Unavailable Unavailable Presley, A Re ZIGZAG ELASTIC ATTACHER Unavailable Unavailable Presley, A Re ZIGZAG ELASTIC ATTACHER Unavailable Unavailable Presley, A Re ZIGZAG ELASTIC ATTACHER Unavailable Unavailable Presley, A Re ZIGZAG ELASTIC ATTACHER Unavailable Unavailable Presley, A Re ZIGZAG ELASTIC ATTACHER Unavailable Unavailable Presley, A Re ZIGZAG ELASTIC ATTACHER Unavailable Unavailable Presley, A Re ZIGZAG ELASTIC ATTACHER Unavailable Unavailable Presley, A Re ZIGZAG ELASTIC ATTACHER Unavailable Unavailable Presley, A Re ZIGZAG ELASTIC ATTACHER Unavailable Unavailable Presley, A Re ZIGZAG ELASTIC ATTACHER Unavailable Unavailable Presley, A Er ZIGZAG ELASTIC ATTACHER Unavailable Unavailable Presley, A Re ZIGZAG ELASTIC ATTACHER Unavailable Unavailable Presley, A Re ZIGZAG ELASTIC ATTACHER Unavailable Unavailable RICHARD, F CLAUDIA DO Unavailable Unavailable RICHARD, F CLAUDIA DO Unavailable Unavailable RICHARD, F CLAUDIA DO Unavailable Unavailable RICHARD, F CLAUDIA DO Unavailable Unavailable RICHARD, F CLAUDIA DO Unavailable Unavailable RICHARD, F CLAUDIA DO Unavailable Unavailable RICHARD, F CLAUDIA DO Unavailable Unavailable RICHARD, F CLAUDIA DO Unavailable Unavailable RICHARD, F CLAUDIA DO Unavailable Unavailable RICHARD, F CLAUDIA DO Unavailable Unavailable RICHARD, F CLAUDIA DO Unavailable Unavailable RICHARD, F CLAUDIA DO Unavailable Unavailable RICHARD, F CLAUDIA DO Unavailable Unavailable RICHARD, F CLAUDIA DO Unavailable Unavailable RICHARD, F CLAUDIA DO Unavailable Unavailable RICHARD, F CLAUDIA DO Unavailable Unavailable RICHARD, F CLAUDIA DO Unavailable Unavailable RICHARD, F CLAUDIA DO Unavailable Unavailable RICHARD, F CLAUDIA DO Unavailable Unavailable RICHARD, F CLAUDIA DO Unavailable Unavailable RICHARD, F CLAUDIA DO Unavailable Unavailable RICHARD, F CLAUDIA DO Unavailable Unavailable RICHARD, F CLAUDIA DO Unavailable Unavailable RICHARD, F CLAUDIA DO Unavailable Unavailable RICHARD, F CLAUDIA DO Unavailable Unavailable RICHARD, F CLAUDIA DO Unavailable Unavailable RICHARD, F CLAUDIA DO Unavailable Unavailable RICHARD, F CLAUDIA DO Unavailable Unavailable RICHARD, F CLAUDIA DO Unavailable Unavailable RICHARD, F CLAUDIA DO Unavailable Unavailable RICHARD, F CLAUDIA DO Unavailable Unavailable RICHARD, F CLAUDIA DO Unavailable Unavailable Re-disclosure Warning The records that you are about to access may contain information from federally-assisted alcohol or drug abuse programs. If such information is present, then the following federally mandated warning applies: This information has been disclosed to you from records protected by federal confidentiality rules (42 CFR part 2). The federal rules prohibit you from making any further disclosure of this information unless further disclosure is expressly permitted by the written consent of the person to whom it pertains or as otherwise permitted by 42 CFR part 2. A general authorization for the release of medical or other information is NOT sufficient for this purpose. The Federal rules restrict any use of the information to criminally investigate or prosecute any alcohol or drug abuse patient.The records that you are about to access may contain highly sensitive health information, the redisclosure of which is protected by Article 27-F of the [place] State Public Health law. If you continue you may have access to information: Regarding HIV / AIDS; Provided by facilities licensed or operated by the [facility] Office of Mental Health; or Provided by the [facility] Office for People With Developmental Disabilities. If such information is present, then the following [facility] mandated warning applies: This information has been disclosed to you from confidential records which are protected by state law. State law prohibits you from making any further disclosure of this information without the specific written consent of the person to whom it pertains, or as otherwise permitted by law. Any unauthorized further disclosure in violation of state law may result in a fine or assisted sentence or both. A general authorization for the release of medical or other information is NOT sufficient authorization for further disc losure. Allergies and Adverse Reactions Type Description Substance Reaction Status Data Source(s ) Propensity to adverse reactions to substance nkda 24 HR Bupropion Hydrochloride 150 MG Extended Release Oral Tablet Active [facility] ([facility]) Allergy to substance Allergy to substance Allergy to substance [facility] ([facility]) Encounters Encounter Providers Location Date Indications Data Source(s ) Outpatient 08/21/2020 12:00:00 AM [facility] Outpatient 08/21/2020 12:00:00 AM [facility] Extended Individual Psychotherapy - 45 min Attender: Bharti Mckeon [facility] Longterm 05/07/2020 09:30:00 AM EST - 05/07/2020 09:30:00 AM EST [facility] ([facility]) Attender: Tanvi Mckeon 05/07/2020 12:00:00 AM EST [facility] ([facility]) ALMA Johnson: [address] [place] [address], Ph. Attender: Re [facility] 04/27/2020 12:00:00 AM EST [facility] ([facility]) Outpatient Attender: ARLETTE CHONG 02/28/2020 09:05:01 A M EST [facility] ANGELA JohnsonBC: [address] [place] [address], Ph. Attender: Re [facility] 02/28/2020 12:00:00 AM EST [facility] ([facility]) ARLETTE Johnson-: [address] [place] [address], Ph. Attender: [facility] 02/28/2020 12:00:00 AM EST [facility] ([facility]) Outpatient Attender: ARLETTE CHONG FP 12/21/2019 12:02:30 A M EDT [facility] Outpatient Attender: ARLETTE MARQUIS 12/20/2019 10:54:01 A M EDT [facility] Outpatient Attender: ARLETTE CHONG FP 12/20/2019 12:02:15 A M EDT [facility] Outpatient Attender: ARLETTE MARQUIS 12/19/2019 10:41:01 A M EDT [facility] Outpatient Attender: Re MARQUIS 12/11/2019 03:1 4:02 PM EDT [facility] Outpatient Attender: ARLETTE MARQUIS 12/11/2019 03:14:00 P M EDT [facility] Outpatient Attender: ARLETTE MARQUIS 12/11/2019 03:13:02 P M EDT [facility] Outpatient Attender: Re MARQUIS 12/11/2019 03:1 3:01 PM EDT [facility] Outpatient Attender: ARLETTE MARQUIS 10/25/2019 09:04:01 A M EDT [facility] Outpatient Attender: ARLETTE MARQUIS 10/21/2019 01:47:01 P M EDT [facility] Outpatient Attender: ARLETTE MARQUIS 10/18/2019 08:29:00 A M EDT [facility] Outpatient Attender: Re MARQUIS 10/11/2019 03:5 3:01 PM EDT [facility] Outpatient Attender: ARLETTE MARQUIS 10/11/2019 12:02:08 A M EDT [facility] Outpatient Attender: ARLETTE MARQUIS 10/10/2019 10:33:00 A M EDT [facility] Outpatient Attender: Ariella CHRISTIE Physical Therapy 02:00:00 PM EDT [facility] ([facility]) Outpatient Attender: ARLETTE Sherwood ZIGZAG ELASTIC ATTACHER FP 09/22/2019 12:02:15 A M EDT [facility] Outpatient Attender: ARLETTE LARSENP FP 09/21/2019 11:06:01 A M EDT [facility] Outpatient Attender: ARLETTE LARSENP FP 09/21/2019 11:05:01 AM EDT [facility] Outpatient Attender: GEOFF CHRISTIE Physical Therapy 09/21/2019 09:00:00 AM EDT [facility] ([facility]) Outpatient Referrer: GEOFF CHRISTIE 09/21/2019 08:11 :00 AM EDT [facility] Outpatient Referrer: GEOFF CHRISTIE 09/20/2019 12:16 :00 PM EDT [facility] Outpatient Referrer: GEOFF CHRISTIE 09/20/2019 08:25 :00 AM EDT [facility] Outpatient Referrer: GEOFF CHRISTIE 09/20/2019 08:22 :00 AM EDT [facility] Outpatient Referrer: GEOFF CHRISTIE 09/20/2019 08:22 :00 AM EDT [facility] Outpatient Referrer: GEOFF CHRISTIE 09/19/2019 01:30 :00 PM EDT [facility] Outpatient Referrer: GEOFF CHRISTIE 09/19/2019 11:18 :00 AM EDT [facility] Outpatient Referrer: GEOFF CHRISTIE 09/19/2019 11:18 :00 AM EDT [facility] Outpatient Referrer: GEOFF CHRISTIE 09/19/2019 10:53 :00 AM EDT [facility] Outpatient 09/19/2019 10:45:00 AM EDT [facility] Outpatient Attender: ARLETTE CHONG FP 09/13/2019 07:55:21 PM EDT [facility] Outpatient Attender: Shena CHONG-BC FP 09/13/2019 10: 03:02 AM EDT [facility] Outpatient Attender: ARLETTE CHONG FP 09/10/2019 12:02:09 AM EDT [facility] Outpatient Attender: ARLETTE CHONG FP 09/09/2019 11:34:01 AM EDT [facility] Outpatient Attender: ARLETTE CHONG FP 09/05/2019 12:02:09 AM EDT [facility] Outpatient 08/26/2019 05:17:00 AM EDT [facility] Outpatient Attender: ARLETTE CHONG FP 08/23/2019 03:05:02 PM EDT [facility] OFFICE OUTPATIENT NEW 30 MINUTES Attender: GEOFF CHRISTIE Physical Therapy 08/23/2019 01:00:00 PM EDT [facility] ([facility]) Outpatient Attender: ARLETTE CHONG FP 08/19/2019 04:36:00 PM EDT [facility] Outpatient Attender: Shena CHONG-BC FP 08/19/2019 04: 35:02 PM EDT [facility] Outpatient Attender: ARLETTE CHONG FP 08/19/2019 03:55:00 PM EDT [facility] Outpatient Attender: ARLETTE CHONG FP 08/18/2019 09:51:01 AM EDT [facility] Outpatient Attender: Shena MILLERBC FP 08/15/2019 12: 03:01 PM EDT [facility] Outpatient Attender: ARLETTE CHONG FP 08/15/2019 09:44:01 AM EDT [facility] Outpatient Attender: Shena MILLERBC FP 08/10/2019 09: 42:02 AM EDT [facility] Outpatient Attender: ARLETTE CHONG FP 08/09/2019 01:16:00 PM EDT [facility] Outpatient Attender: Shena CHONG-BC FP 08/05/2019 09: 32:00 AM EDT [facility] Outpatient Attender: ARLETTE CHONG FP 08/05/2019 08:43:00 AM EDT [facility] Outpatient 07/23/2019 07:14:00 AM EDT [facility] Outpatient Attender: Shena MILLERBC FP 07/06/2019 09: 09:01 AM EDT [facility] Outpatient Referrer: Radha Hurst MD 06/13/[facility]: ARLETTE MARQUIS 05/27/2019 02:46:00 PM [facility] Outpatient Attender: ARLETTE MARQUIS 05/20/2019 08:02:03 PM [facility] Outpatient 05/14/2019 07:55:00 PM [facility] Emergency Attender: CLAUDIA RAMIREZ DOConsultant: Karl Richter MD 05/14/2019 07:40:00 PM EST - 05/14/2019 10:59:00 PM [facility] Patient discharged. Outpatient Attender: Shena MARQUIS 05/10/2019 10: 03:01 AM [facility] Brief Individual Psychotherapy - 30 min Attender: [place] [facility] Longterm 05/09/2019 01:00:00 AM EST - 05/09/2019 01:00:00 AM EST [facility] ([facility]) Attender: Chely Lee 05/09/2019 12:00:00 AM EST [facility] ([facility]) Outpatient Attender: Shena MARQUIS 05/06/2019 09: 40:01 AM [facility] Outpatient Attender: ARLETTE MARQUIS 05/04/2019 02:39:00 PM [facility] Outpatient Attender: HARMAN GARCIA NP [facility] Real boggs 05/04/2019 09:30:00 AM EST - 05/04/2019 09:30:00 AM EST [facility] ([facility]) Attender: HARMAN GARCIA NP 05/04/2019 12:00:00 AM EST [facility] ([facility]) Outpatient 05/01/2019 05:55:00 PM [facility] Outpatient Attender: Shena MARQUIS 04/25/2019 08: 47:02 AM [facility] Outpatient Attender: ARLETTE MARQUIS 04/25/2019 08:43:01 AM [facility] Brief Individual Psychotherapy - 30 min Attender: Christiane herzog [facility] Longterm 04/25/2019 08:00:00 AM EST - 04/25/2019 08:00:00 AM EST [facility] ([facility]) Attender: Christiane Alvarenga 04/25/2019 12:00:00 AM EST [facility] ([facility]) Outpatient [facility]: [facility] 04/19/2019 01:52:00 PM [facility] Outpatient Attender: ARLETTE Taylor [employer] ATT[employer]ER FP 03/28/2019 02:43:00 PM [facility] Outpatient Attender: Shena Brandon ZIGZAG ELASTIC ATTACHER-BC 03/25/2019 02: 47:01 PM [facility] Outpatient Attender: ZIGZAG ELASTIC ATTACHERBeulah [facility] 03/25/2019 11:09:01 AM [facility] Outpatient Attender: Shena Taylor ZIGZAG ELASTIC ATTACHER-BC 03/24/2019 10: 21:03 AM [facility] Medications Medication Brand Name Start Date Product Form Dose Route Admi nistrative Instructions Pharmacy Instructions Status Indications Reaction Description Data Source(s) gabapentin 800 MG Oral Tablet Gabapentin 08/23/2019 12:00:00 AM EDT ORAL active [facility] ([facility]) 150 mcg 08/18/2019 12:00:00 AM EDT tablet 10 TAKE ONE TABLET BY MOUTH EVERY DAY TAKE ONE TABLET BY MOUTH EVERY DAY SOLD: 08/18/2019 [facility] quetiapine 25 MG Oral Tablet [Seroquel] Seroquel 05/24/2019 12: 00:00 AM EST 25 mg completed [id number] Seroquel 05/24/2019 30 25 mg tablet 63602 [id number] Harman Garcia [id number] Nurse Practitioner [facility] ([facility]) Trazodone Hydrochloride 150 MG Oral Tablet trazodone 04/20 12:00:00 AM EST 150 mg completed [id number] trazodone 04/20/2019 150 mg tablet 99776 [id number] Harman Garcia [id number] Nurse Beulah martinez [facility] ([facility]) gabapentin 600 MG Oral Tablet gabapentin 04/20/2019 12:00:00 AM EST 600 mg completed [id number] gabapentin 04/20/2019 600 m g tablet 74197 [id number] Harman Garcia [id number] Nurse Practitioner [facility] ([facility]) Propranolol Hydrochloride 10 MG Oral Tablet propranolol 04/20/2019 12:00:00 AM EST 10 mg completed [id number] propranolol 0 10 mg tablet 23768 [id number] Harman Garcia [id number] Nurse Beulah tonytitioner [facility] ([facility]) Escitalopram 10 MG Oral Tablet [Lexapro] Lexapro 03/22/2019 12 :00:00 AM EST 10 mg by mouth completed [id number] Lexapro by mouth [id number] 03/22/2019 05/21/2019 every morning 30 10 mg tablet 34134 [id number] Harman Garcia [id number] Nurse Practitioner [facility] ([facility]) quetiapine 25 MG Oral Tablet [Seroquel] Seroquel 03/22/2019 12: 00:00 AM EST 25 mg by mouth completed [id number] Seroquel by mouth [id number] 03/22/2019 05/21/2019 three times a day 30 25 mg tablet 74059 [id number] Harman Garcia [id number] Nurse Practitioner [facility] ([facility]) Propranolol Hydrochloride 10 MG Oral Tablet propranolol 02/22/2019 12:00:00 AM EST 10 mg by mouth completed [id number] propranolol by [facility] [id number] 02/22/2019 03/24/2019 twice a day 30 10 mg tablet 53175 [id number] Harman Garcia [id number] [facility]Mental [facility] ([facility]) Propranolol Hydrochloride 10 MG Oral Tablet propranolol 02/22/2019 12:00:00 AM EST 10 mg by mouth completed [id number] propranolol by [facility] [id number] 02/22/2019 03/24/2019 twice a day 30 10 mg tablet 89621 [id number] Harman Garcia [id number] Nurse Practitioner [facility] ([facility]) gabapentin 600 MG Oral Tablet gabapentin 02/08/2019 12:00:00 AM EST 600 mg by mouth completed [id number] gabapentin by mouth [id number] 201803/24/2019 three times a day 30 600 mg tablet 39551 738832 [id number] Harman Garcia [id number] Psychiatric/Mental Health [facility] ([facility]) Clonidine Hydrochloride 0.3 MG Oral Tablet clonidine HCl 02/08/2019 12:00:00 AM EST 0.3 mg by mouth completed [id number] clonidine HCl by mouth [id number] 02/08/2019 04/09/2019 twice a day 30 0.3 mg tablet 58394 [id number] 1 [id number] Harman Garcia [id number] [facility] ([facility]) gabapentin 600 MG Oral Tablet gabapentin 02/08/2019 12:00:00 AM EST 600 mg by mouth completed [id number] gabapentin by mouth [id number] 201803/24/2019 three times a day 30 600 mg tablet 60287 [id number] Harman Garcia [id number] Nurse Practitioner [facility] ([facility]) Clonidine Hydrochloride 0.3 MG Oral Tablet clonidine HCl 02/08/2019 12:00:00 AM EST 0.3 mg by mouth completed [id number] clonidine HCl by mouth [id number] 02/08/2019 04/09/2019 twice a day 30 0.3 mg tablet 67753 [id number] 1 [id number] Harman Garcia [id number] Nurse Practitioner [facility] ([facility]) Escitalopram 20 MG Oral Tablet [Lexapro] Lexapro 02/08/2019 12 :00:00 AM EST 20 mg completed [id number] Lexapro 02/08/201903/06 once a day 30 20 mg tablet 34791 [id number] [id number] Harman Garcia [id number] Psychiatric/Mental Health [facility] ([facility]) Escitalopram 20 MG Oral Tablet [Lexapro] Lexapro 02/08/2019 12 :00:00 AM EST 20 mg completed [id number] Lexapro 02/08/201903/06 once a day 30 20 mg tablet 94787 376949 [id number] Harman Garcia [id number] Nurse Practitioner [facility] ([facility]) Levothyroxine Sodium 0.1 MG Oral Tablet levothyroxine 100 mcg tablet TAKE TWO TABLETS BY MOUTH @6AM levothyroxine 100 mcg tablet TAKE TWO TA BLETS BY MOUTH @6AM completed levothyroxine so dium 0.1 MG Oral Tablet [facility] ([facility]) 24 HR Bupropion Hydrochloride 150 MG Ext ended Release Oral Tablet bupropion HCl XL 150 mg 24 hr tablet, extended release bupropion HCl XL 150 mg 24 hr tablet, extended release completed 24 HR bupropion hydrochloride 150 MG Extended Release Oral Tablet [place] ([facility]) gabapentin 300 MG Oral Capsule gabapenti n 300 mg capsule TAKE TWO CAPSULES BY MOUTH THREE TIMES DAILY gabapentin 300 mg capsule TAKE TWO CAPSU LES BY MOUTH THREE TIMES DAILY completed adi pentin 300 MG Oral Capsule [place] ([facility]) Trazodone Hydrochloride 100 MG Oral Tablet trazodone 1 00 mg tablet trazodone 100 mg tablet completed trazodone h ydrochloride 100 MG Oral Tablet [place] ([facility]) Prednisone 10 MG Oral Tablet prednisone 10 mg tablet TAKE 5 TABLETS BY MOUTH ONCE DAILY ON DAY 1, 4 TABLETS ON DAY 2, 3 TABLETS ON DAY 3, 2 TABLETS ON DAY 4, AND 1 TABLET ON DAYS 5&6 prednisone 10 mg tablet TAKE 5 TABLETS B Y MOUTH ONCE DAILY ON DAY 1, 4 TABLETS ON DAY 2, 3 TABLETS ON DAY 3, 2 TABLETS ON DAY 4, AND 1 TABLET ON DAYS 5&6 completed p rednisone 10 MG Oral Tablet [place] ([facility]) quetiapine 100 MG Oral Tablet quetiapine 100 mg tablet TAKE ONE TABLET BY MOUTH AT BEDTIME quetiapine 100 mg tablet TAKE ONE TABLET BY MOUTH AT BEDTIME completed quetiapine 100 MG Oral Ta blet [place] ([facility]) doxycycline hyclate 100 MG Oral Tablet d oxycycline hyclate 100 mg tablet TAKE ONE TABLET BY MOUTH TWICE DAILY FOR mrsa doxycycline hyclate 100 mg tablet TAKE ONE TABLET BY MOUTH TWICE DAILY FOR mrsa completed doxycycline hyclate 100 MG Oral Tablet [place] ([facility]) liothyronine sodium 0.005 MG Oral Tablet liothyronine 5 mcg tablet liothyronine 5 mcg tablet completed liothyron ine sodium 0.005 MG Oral Tablet [place] ([facility]) quetiapine 50 MG Oral Tablet quetiapine 50 mg tablet TAKE ONE TABLET BY MOUTH TWICE DAILY quetiapine 50 mg tablet TAKE ONE TABLET BY MOUTH TWICE DAILY completed quetiapine 50 MG Ora l Tablet [facility] ([facility]) gabapentin 600 MG Oral Tablet gabapentin 600 mg tablet TAKE ONE TABLET BY MOUTH THREE TIMES DAILY gabapentin 600 mg tablet TAKE ONE TABLET BY MOUTH THREE TIMES DAILY completed gabapentin 600 M G Oral Tablet [facility] ([facility]) Insurance Providers Payer name Policy type / Coverage type Policy ID Covered democrat ID Covered democrat's relationship to francois Policy Francois Plan Information BERNARD [id number] SP [id number] BERNARD I [id number] Self [id number] [place] [id number] S [id number] Managed Care Bernard P [id number] S [id number] Medicaid S [id number] S [id number] Medicaid S [id number] S [id number] [place] X[place] MAN -PHYSICIAN [id number] MEDICAID -PHYSICIAN [id number] 1 [id number] [place] -[place] [id number] 18 [id number] MEDICAID -O/P EMERGENCY ROOM [id number] 18 [id number] MEDICAID [id number] SP [id number] Medicaid P [id number] S [id number] BERNARD [id number] SP [id number] UN COMMUNITY PLAN MCDO [id number] SP [id number] [facility] F[facility] [id number] SP [id number] Managed Care - [facility] Community Plan P [id number] S [id number] [facility](MCAID) O [id number] S [id number] [facility] FLAKO [id number] SP [id number] [facility](MCA[facility]) O [id number] S [id number] [facility] [id number] SP [id number] SELF PAY ONLY [id number] SP [id number] [place] Medigap Part B [id number] Self [id number] [facility] Health Maintenance Organization (HMO) [id number] Self [id number] [facility] [id number] SP [id number] Managed Care - Community Plan [facility] P [id number] S [id number] PENDING [employer]OV[employer] INSURANCE [id number] SP [id number] [place] [id number] Self [id number] SELF PAY ONLY [id number] SP [id number] [place] [id number] Self [id number] [facility] 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 [facility] [id number] SP [facility] [id number] Managed Care - Community Plan United Healthcare P [id number] S [id number] Medicaid S [id number] S [id number] Managed Care - Community Plan United [employer] P [id number] S [id number] UNHC COMMUNITY PLAN MCDHMO [id number] SP [id number] [facility](MCAID) O [id number] S [id number] UNHC COMMUNITY PLAN MCDHMO [id number] SP [id number] MEDICAID M [id number] S [id number] MEDICAID [id number] SP [id number] UNHC COMMUNITY PLAN MCDHMO [id number] SP [id number] UNHC AMERICHOICE XIX -HMO [id number] 18 [id number] [facility] [id number] SP [id number] BLUE CROSS BLUE SHIELD-O/P [id number] BLUE CROSS BLUE SHIELD-PHYSICIAN [id number] MEDICAID [id number] SP [id number] UNHC COMMUNITY PLAN MCDHMO [id number] SP [id number] BLUE [employer]OSS [place] PLAN [id number] SP [id number] HMO BLUE [id number] SP [id number] O BLUE [id number] SP [id number] Problems, Conditions, and Diagnoses Code Display Name Description Problem Type Effective Dates Data Source(s) Z72.0 Tobacco use Tobacco Use Disorder, Mild Condition 0 05/07/2020 12:00:00 AM EST [facility] ([facility]) F12.10 Cannabis abuse, uncomplicated Cannabis Use Disorder, M ild Condition 05/07/2020 12:00:00 AM EST [facility] ([facility]) F11.10 Opioid abuse, uncomplicated Opioid Use Disorder, Mild Condition 05/07/2020 12:00:00 AM EST [facility] ([facility]) F10.10 Alcohol abuse, uncomplicated Alcohol Use Disorder, Mil d Condition 05/07/2020 12:00:00 AM EST [facility] ([facility]) F32.9 Major depressive disorder, single episod e, unspecified Unspecified depressive Disorder Condition 05/07/2020 12:00:00 AM EST [facility] ([facility]) 244.9 Hypothyroidism Hypothyroidism 08/19/2019 04:34: 05 PM EDT [facility] M84.472A Pathological fracture, left ankle, initi al encounter for fracture Pathological fracture, left ankle, initial encounter for fracture 08/19/2019 04:34:05 PM EDT [facility] [id number] Pathological fracture - ankle and/or krystal t Pathological Fracture - Ankle And/or Foot Problem 08/19/2019 12:00:00 AM EDT [facility] ([facility]) [id number] Pathological fracture - ankle and/or krystal t Pathological Fracture - Ankle And/or Foot Problem 08/19/2019 12:00:00 AM EDT [facility] ([facility]) F10.20 Alcohol dependence, uncomplicated Alcohol Use Di sorder, Moderate Condition 05/09/2019 12:00:00 AM EST [facility] ([facility]) F43.8 Other reactions to severe stress Other S 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 05/09/2019 12:00:00 AM EST [facility] ([facility]) F33.1 Major depressive disorder, recurrent, mo derate Major Depressive Disorder, Recurrent episode, Moderate Condition 05/09/2019 12:00:00 AM EST [facility] ([facility]) N17387 Nicotine dependence, cigarettes, uncompl icated Nicotine dependence, cigarettes, uncomplicated Diagnosis 05/14/2019 07:40:00 PM [facility] N3001 Acute cystitis with hematuria Acute cystitis with lj turia Diagnosis 05/14/2019 07:40:00 PM [facility] R55 Syncope and collapse Syncope and collapse Diagnosis 05/14/2019 07:40:00 PM [facility] Surgeries/Procedures Procedure Description Date Indications Data Source(s) Extended Individual Psychotherapy - 45 min 05/07/2020 12:00:00 AM EST - 05/07/2020 12:00:00 AM EST [facility] ([facility]) Extended Individual Psychotherapy - 45 min 1 12:00:00 AM EST [facility] ([facility]) APPLICATION SHORT LEG CAST BELOW KNEE-TOE 09/27/2019 1 2:00:00 AM EDT [facility] ([facility] ) FX Bimalleolar Ankle W/O Manipulation 09/21/2019 12:00 :00 AM EDT [facility] ([facility] ) RADEX ANKLE COMPLETE MINIMUM 3 VIEWS 09/21/2019 12:00: 00 AM EDT [facility] ([facility] ) APPLICATION SHORT LEG CAST BELOW KNEE-TOE 08/23/2019 1 2:00:00 AM EDT [facility] ([facility] ) RADEX ANKLE COMPLETE MINIMUM 3 VIEWS 08/23/2019 12:00: 00 AM EDT [facility] ([facility] ) Brief Individual Psychotherapy - 30 min 05/09/2019 12:00:00 AM EST - 05/09/2019 12:00:00 AM EST [facility] ([facility]) Brief Individual Psychotherapy - 30 min 05/09/2019 12: 00:00 AM EST [facility] ([facility]) OFFICE OUTPATIENT VISIT 15 MINUTES 05/04 12:00:00 AM EST - 05/04/2019 12:00:00 AM EST [facility] ([facility]) OFFICE OUTPATIENT VISIT 15 MINUTES 05/04/2019 12:00:00 AM EST [facility] ([facility]) Brief Individual Psychotherapy - 30 min 04/25/2019 12:00:00 AM EST - 04/25/2019 12:00:00 AM EST [facility] ([facility]) Brief Individual Psychotherapy - 30 min 04/25/2019 12: 00:00 AM EST [facility] ([facility]) Results ID Date Data Source [id number] 03/05/2020 06:37:00 AM EST [facility] ([facility]) Name Value Range Interpretation Code Description Data Miya rce(s) Supporting Document(s) white blood count 5.4 10 4.0-10.0 normal White Blood Count [facility] ([facility]) red blood count 4.20 10 4.00-5.40 normal Red Blood Count [facility] ([facility]) hemoglobin 12.1 g/dL 12.0-15.5 normal Hemoglobin [facility] ([facility]) hematocrit 39.0 % 36.0-47.0 normal Hematocrit [facility] ([facility]) mean corpuscular hemoglobin 28.8 pg 27.0-33.0 normal Mean Corpuscular Hemoglobin [facility] ([facility]) mean corpuscular volume 92.9 fL 80.0-96.0 normal Mean Corpusc ular Volume [place] ([facility]) mean corpuscular HGB conc 31.0 g/dL 32.0-36.5 Below low zeeshan l Mean Corpuscular HGB Conc [place] ([facility]) platelet count, automated 97 10 150-450 Below low zeeshan l Platelet Count, Automated [facility] ([facility]) red cell distribution width 14.2 % 11.5-14.5 normal Red Cell Distribution Width [place] ([facility]) nucleated red blood cell % 0.4 % 0-0 Above high nor mal Nucleated Red Blood Cell % [place] ([facility]) ID Date Data Source [id number] 03/05/2020 06:37:00 AM EST [facility] ([facility]) Name Value Range Interpretation Code Description Data Miya rce(s) Supporting Document(s) magnesium level 2.0 mg/dL 1.8-2.4 normal Magnesium Level [facility] ([facility]) ID Date Data Source [id number] 03/05/2020 06:37:00 AM EST [place] ([facility]) Name Value Range Interpretation Code Description Data Miya rce(s) Supporting Document(s) glucose, fasting 97 mg/dL 70-100 normal Glucose, Fasting AT [facility] ([facility]) blood urea nitrogen 10 mg/dL 7-18 normal Blood Urea Nitro gen [facility] ([facility]) creatinine for GFR 1.57 mg/dL 0.55-1.30 Above high normal Creatinine for GFR [place] ([facility]) sodium level 143 mEq/L 136-145 normal Sodium Level [facility] ([facility]) glomerular filtration rate >60 Below low normal Deonna merular Filtration Rate [facility] ([facility]) potassium serum 3.5 mEq/L 3.5-5.1 normal Potassium Serum [facility] ([facility]) chloride level 110 mEq/L 98-107 Above high normal Chloride Level [facility] ([facility]) carbon dioxide level 26 mEq/L 21-32 normal Carbon Dioxide Level [facility] ([facility]) anion gap 7 mEq/L 8-16 Below low normal Anion Gap [facility] ( [facility]) calcium level 8.5 mg/dL 8.5-10.1 normal Calcium Level [facility] ( [facility]) ID Date Data Source [id number] 03/05/2020 06:37:00 AM EST [place] ([facility]) Name Value Range Interpretation Code Description Data Miya rce(s) Supporting Document(s) immature platelet fraction % 1.3 % 0.0-9.59 normal Immatur e Platelet Fraction % [facility] ([facility]) ID Date Data Source [id number] 03/04/2020 04:50:00 AM EST [facility]) Name Value Range Interpretation Code Description Data Miya rce(s) Supporting Document(s) white blood count 4.4 10 4.0-10.0 normal White Blood Count [facility] ([facility]) red blood count 4.12 10 4.00-5.40 normal Red Blood Count [facility] ([facility]) hemoglobin 11.9 g/dL 12.0-15.5 Below low normal Hemoglobin [facility] ( [facility]) hematocrit 39.4 % 36.0-47.0 normal Hematocrit [facility] ([facility]) mean corpuscular hemoglobin 28.9 pg 27.0-33.0 normal Mean Corpuscular Hemoglobin [facility] ([facility]) mean corpuscular volume 95.6 fL 80.0-96.0 normal Mean Corpusc ular Volume [facility] ([facility]) red cell distribution width 14.2 % 11.5-14.5 normal Red Cell Distribution Width [facility] ([facility]) mean corpuscular HGB conc 30.2 g/dL 32.0-36.5 Below low zeeshan l Mean Corpuscular HGB Conc [facility] ([facility]) platelet count, automated 101 10 150-450 Below low zeeshan l Platelet Count, Automated [facility] ([facility]) nucleated red blood cell % 0.0 % 0-0 normal Nucleated Red Blood Cell % [facility] ([facility]) ID Date Data Source [id number] 03/04/2020 04:49:00 AM EST [facility]) Name Value Range Interpretation Code Description Data Miya rce(s) Supporting Document(s) magnesium level 2.1 mg/dL 1.8-2.4 normal [facility] ID Date Data Source [id number] 03/04/2020 04:49:00 AM EST [place] ([facility]) Name Value Range Interpretation Code Description Data Miya rce(s) Supporting Document(s) glucose, fasting 86 mg/dL 70-100 normal Glucose, Fasting AT [facility]) blood urea nitrogen 8 mg/dL 7-18 normal Blood Urea Nitro gen [facility] ([facility]) creatinine for GFR 1.57 mg/dL 0.55-1.30 Above high normal Creatinine for GFR [facility] ([facility]) glomerular filtration rate >60 Below low normal Deonna merular Filtration Rate [facility] ([facility]) potassium serum 3.8 mEq/L 3.5-5.1 normal Potassium Serum [facility] ([facility]) sodium level 145 mEq/L 136-145 normal Sodium Level [facility] ([facility]) chloride level 111 mEq/L 98-107 Above high normal Chloride Level [facility] ([facility]) carbon dioxide level 30 mEq/L 21-32 normal Carbon Dioxide Level [place] ([facility]) anion gap 4 mEq/L 8-16 Below low normal [facility] calcium level 8.2 mg/dL 8.5-10.1 Below low normal Calcium Level AT [facility] ([facility]) ID Date Data Source [id number] 03/03/2020 04:32:00 AM EST [facility] ([facility]) Name Value Range Interpretation Code Description Data Miya rce(s) Supporting Document(s) T uptake 30 % 30-39 normal T Uptake [facility] ([facility]) thyroxine (T4) 5.2 ug/dL 4.5-12.0 normal Thyroxine (T4) [place] ([facility]) free thyroxine index 1.6 % 1.3-4.8 normal Free Thyroxine Index [place] ([facility]) thyroid stimulating hormone 164.000 uIU/mL 0.358-3.740 Above high normal Thyroid Stimulating Hormone [place] ([facility]) ID Date Data Source [id number] 03/03/2020 04:32:00 AM EST [facility] ([facility]) Name Value Range Interpretation Code Description Data Miya rce(s) Supporting Document(s) magnesium level 2.1 mg/dL 1.8-2.4 normal Magnesium Level [facility] ([facility]) ID Date Data Source [id number] 03/03/2020 04:32:00 AM EST [facility]) Name Value Range Interpretation Code Description Data Miya rce(s) Supporting Document(s) blood urea nitrogen 8 mg/dL 7-18 normal Blood Urea Nitro gen [facility] ([facility]) glucose, fasting 70 mg/dL 70-100 normal Glucose, Fasting AT [facility] ([facility]) creatinine for GFR 1.48 mg/dL 0.55-1.30 Above high normal Creatinine for GFR [place] ([facility]) glomerular filtration rate >60 Below low normal Deonna merular Filtration Rate [facility] ([facility]) potassium serum 3.6 mEq/L 3.5-5.1 normal Potassium Serum [facility] ([facility]) sodium level 144 mEq/L 136-145 normal Sodium Level [facility] ([facility]) chloride level 111 mEq/L 98-107 Above high normal Chloride Level [facility] ([facility]) anion gap 4 mEq/L 8-16 Below low normal Anion Gap [place] ( [facility]) carbon dioxide level 29 mEq/L 21-32 normal Carbon Dioxide Level [place] ([facility]) calcium level 8.0 mg/dL 8.5-10.1 Below low normal Calcium Level AT [facility]) ID Date Data Source [id number] 03/03/2020 04:32:00 AM EST [place] ([facility]) Name Value Range Interpretation Code Description Data Miya rce(s) Supporting Document(s) white blood count 4.7 10 4.0-10.0 normal White Blood Count [place] ([facility]) red blood count 3.99 10 4.00-5.40 Below low normal Red Blood Coun t [place] ([facility]) hematocrit 38.3 % 36.0-47.0 normal Hematocrit [place] ([facility]) hemoglobin 11.6 g/dL 12.0-15.5 Below low normal Hemoglobin [place] ( [facility]) mean corpuscular volume 96.0 fL 80.0-96.0 normal Mean Corpusc ular Volume [place] ([facility]) mean corpuscular hemoglobin 29.1 pg 27.0-33.0 normal Mean Corpuscular Hemoglobin [place] ([facility]) red cell distribution width 14.3 % 11.5-14.5 normal Red Cell Distribution Width [place] ([facility]) mean corpuscular HGB conc 30.3 g/dL 32.0-36.5 Below low zeeshan l Mean Corpuscular HGB Conc [place] ([facility]) nucleated red blood cell % 0.0 % 0-0 normal Nucleated Red Blood Cell % [place] ([facility]) platelet count, automated 111 10 150-450 Below low zeeshan l Platelet Count, Automated [facility]) ID Date Data Source [id number] 03/03/2020 04:24:00 AM EST [place] ([facility]) Name Value Range Interpretation Code Description Data Miya rce(s) Supporting Document(s) vitamin D 1,25 dihydroxy 40.6 pg/mL 19.9-79.3 normal Vitamin D 1 ,25 Dihydroxy [place] ([facility]) ID Date Data Source [id number] 03/02/2020 07:33:00 AM EST [place] ([facility]) Name Value Range Interpretation Code Description Data Miya rce(s) Supporting Document(s) bedside glucose 96 mg/dL 70-105 normal Bedside Glucose [facility] ([facility]) ID Date Data Source [id number] 03/02/2020 05:17:00 AM EST [place] ([facility]) Name Value Range Interpretation Code Description Data Miya rce(s) Supporting Document(s) T uptake 30 % 30-39 normal T Uptake [place] ([facility]) free thyroxine index 1.1 % 1.3-4.8 Below low normal Free Thyr oxine Index [place] ([facility]) thyroxine (T4) 3.5 ug/dL 4.5-12.0 Below low normal Thyroxine (T4) [place] ([facility]) thyroid stimulating hormone 273.000 uIU/mL 0.358-3.740 Above high normal Thyroid Stimulating Hormone [place] ([facility]) ID Date Data Source [id number] 03/02/2020 05:17:00 AM EST [place] ([facility]) Name Value Range Interpretation Code Description Data Miya rce(s) Supporting Document(s) magnesium level 2.2 mg/dL 1.8-2.4 normal Magnesium Level [facility] ([facility]) ID Date Data Source [id number] 03/02/2020 05:17:00 AM EST [place] ([facility]) Name Value Range Interpretation Code Description Data Miya rce(s) Supporting Document(s) glucose, fasting 63 mg/dL 70-100 Below low normal Glucose, Fast ing [place] ([facility]) blood urea nitrogen 10 mg/dL 7-18 normal Blood Urea Nitro gen [place] ([facility]) creatinine for GFR 1.39 mg/dL 0.55-1.30 Above high normal Creatinine for GFR [place] ([facility]) glomerular filtration rate >60 Below low normal Deonna merular Filtration Rate [place] ([facility]) potassium serum 3.8 mEq/L 3.5-5.1 normal Potassium Serum [facility] ([facility]) sodium level 146 mEq/L 136-145 Above high normal Sodium Level [facility] ([facility]) carbon dioxide level 27 mEq/L 21-32 normal Carbon Dioxide Level [place] ([facility]) chloride level 114 mEq/L 98-107 Above high normal Chloride Level [place] ([facility]) anion gap 5 mEq/L 8-16 Below low normal Anion Gap [place] ( [facility]) calcium level 7.6 mg/dL 8.5-10.1 Below low normal Calcium Level AT [facility] ([facility]) ID Date Data Source [id number] 03/02/2020 05:17:00 AM EST [place] ([facility]) Name Value Range Interpretation Code Description Data Miya rce(s) Supporting Document(s) white blood count 6.5 10 4.0-10.0 normal White Blood Count [place] ([facility]) red blood count 3.65 10 4.00-5.40 Below low normal Red Blood Coun t [place] ([facility]) hemoglobin 10.7 g/dL 12.0-15.5 Below low normal Hemoglobin [place] ( [facility]) mean corpuscular volume 97.5 fL 80.0-96.0 Above high normal Mean Corpuscular Volume [place] ([facility]) hematocrit 35.6 % 36.0-47.0 Below low normal Hematocrit [place] ( [facility]) mean corpuscular HGB conc 30.1 g/dL 32.0-36.5 Below low zeeshan l Mean Corpuscular HGB Conc [place] ([facility]) mean corpuscular hemoglobin 29.3 pg 27.0-33.0 normal Mean Corpuscular Hemoglobin [place] ([facility]) red cell distribution width 14.1 % 11.5-14.5 normal Red Cell Distribution Width [place] ([facility]) nucleated red blood cell % 0.0 % 0-0 normal Nucleated Red Blood Cell % [place] ([facility]) platelet count, automated 106 10 150-450 Below low zeeshan l Platelet Count, Automated [place] ([facility]) ID Date Data Source [id number] 03/01/2020 06:18:00 PM EST [place] ([facility]) Name Value Range Interpretation Code Description Data Miya rce(s) Supporting Document(s) ABG pH (arterial) 7.327 units 7.350-7.450 Below low normal ABG pH (Ar terial) [place] ([facility]) ABG partial pressure O2 87.0 mmHg 75.0-100.0 normal ABG Partial Pressure O2 [place] ([facility]) ABG partial pressure CO2 52.4 mmHg 35.0-45.0 Above high zeeshan l ABG Partial Pressure CO2 [place] ([facility]) ABG total CO2 28.4 mEq/L 22.0-29.0 normal ABG Total CO2 [place] ( [facility]) ABG HCO3 26.8 mEq/L 22.0-26.0 Above high normal Abg Hco3 [place] ([facility]) ABG base excess -2.0-2.0 normal ABG Base Excess [facility] ([facility]) ABG standard HCO3 24.6 mEq/L 22.0-26.0 normal ABG Standard HCO3 [place] ([facility]) ABG O2 saturation 96.6 % 95.0-99.0 normal ABG O2 Saturation [place] ([facility]) ID Date Data Source [id number] 03/01/2020 03:46:00 PM EST [place] ([facility]) Name Value Range Interpretation Code Description Data Miya rce(s) Supporting Document(s) ABG partial pressure CO2 51.5 mmHg 35.0-45.0 Above high zeeshan l ABG Partial Pressure CO2 [place] ([facility]) ABG pH (arterial) 7.306 units 7.350-7.450 Below low normal ABG pH (Ar terial) [place] ([facility]) ABG total CO2 26.7 mEq/L 22.0-29.0 normal ABG Total CO2 [place] ( [facility]) ABG partial pressure O2 80.4 mmHg 75.0-100.0 normal ABG Partial Pressure O2 [place] ([facility]) ABG HCO3 25.1 mEq/L 22.0-26.0 normal Abg Hco3 [place] ([facility]) ABG base excess -2.0-2.0 normal ABG Base Excess [facility] ([facility]) ABG O2 saturation 95.4 % 95.0-99.0 normal ABG O2 Saturation [place] ([facility]) ABG standard HCO3 23.0 mEq/L 22.0-26.0 normal ABG Standard HCO3 [place] ([facility]) ID Date Data Source [id number] 03/01/2020 05:41:00 AM EST [place] ([facility]) Name Value Range Interpretation Code Description Data Miya rce(s) Supporting Document(s) angiotensin 1 converting enzym 61 U/L 14-82 normal Angiotensin 1 Converting Enzym [place] ([facility]) ID Date Data Source [id number] 03/01/2020 05:41:00 AM EST [place] ([facility]) Name Value Range Interpretation Code Description Data Miya rce(s) Supporting Document(s) ABG pH (arterial) 7.328 units 7.350-7.450 Below low normal ABG pH (Ar terial) [place] ([facility]) ABG partial pressure O2 91.2 mmHg 75.0-100.0 normal ABG Partial Pressure O2 [place] ([facility]) ABG partial pressure CO2 45.2 mmHg 35.0-45.0 Above high zeeshan l ABG Partial Pressure CO2 [place] ([facility]) ABG HCO3 23.2 mEq/L 22.0-26.0 normal Abg Hco3 [place] ([facility]) ABG total CO2 24.6 mEq/L 22.0-29.0 normal ABG Total CO2 [place] ( [facility]) ABG standard HCO3 22.1 mEq/L 22.0-26.0 normal ABG Standard HCO3 [place] ([facility]) ABG base excess -2.0-2.0 Below low normal ABG Base Exces s [place] ([facility]) ABG O2 saturation 96.9 % 95.0-99.0 normal ABG O2 Saturation [place] ([facility]) ID Date Data Source [id number] 02/29/2020 07:30:00 PM EST [place] ([facility]) Name Value Range Interpretation Code Description Data Miya rce(s) Supporting Document(s) ABG pH (arterial) 7.327 units 7.350-7.450 Below low normal ABG pH (Ar terial) [place] ([facility]) ABG partial pressure CO2 55.0 mmHg 35.0-45.0 Above high zeeshan l ABG Partial Pressure CO2 [place] ([facility]) ABG total CO2 29.8 mEq/L 22.0-29.0 Above high normal ABG Total CO2 [facility] [place] ([facility]) ABG partial pressure O2 76.0 mmHg 75.0-100.0 normal ABG Partial Pressure O2 [place] ([facility]) ABG HCO3 28.2 mEq/L 22.0-26.0 Above high normal Abg Hco3 [place] ([facility]) ABG standard HCO3 25.5 mEq/L 22.0-26.0 normal ABG Standard HCO3 [place] ([facility]) ABG base excess -2.0-2.0 normal ABG Base Excess [facility] ([facility]) ABG O2 saturation 95.0 % 95.0-99.0 normal ABG O2 Saturation [place] ([facility]) ID Date Data Source [id number] 02/29/2020 12:55:00 PM EST [place] ([facility]) Name Value Range Interpretation Code Description Data Miya rce(s) Supporting Document(s) ABG partial pressure O2 59.0 mmHg 75.0-100.0 Below low normal ABG Partial Pressure O2 [place] ([facility]) ABG pH (arterial) 7.346 units 7.350-7.450 Below low normal ABG pH (Ar terial) [place] ([facility]) ABG partial pressure CO2 51.7 mmHg 35.0-45.0 Above high zeeshan l ABG Partial Pressure CO2 [place] ([facility]) ABG HCO3 27.6 mEq/L 22.0-26.0 Above high normal Abg Hco3 [place] ([facility]) ABG total CO2 29.2 mEq/L 22.0-29.0 Above high normal ABG Total CO2 [facility] [place] ([facility]) ABG standard HCO3 25.3 mEq/L 22.0-26.0 normal ABG Standard HCO3 [place] ([facility]) ABG base excess -2.0-2.0 normal ABG Base Excess [facility] ([facility]) ABG O2 saturation 90.2 % 95.0-99.0 Below low normal ABG O2 Satur ation [place] ([facility]) ID Date Data Source [id number] 02/29/2020 05:16:00 AM EST [place] ([facility]) Name Value Range Interpretation Code Description Data Miya rce(s) Supporting Document(s) magnesium level 2.2 mg/dL 1.8-2.4 normal Magnesium Level [facility] ([facility]) ID Date Data Source [id number] 02/29/2020 05:16:00 AM EST [place] ([facility]) Name Value Range Interpretation Code Description Data Miya rce(s) Supporting Document(s) glucose, fasting 131 mg/dL 70-100 Above high normal Glucose, Fas ting [place] ([facility]) creatinine for GFR 1.87 mg/dL 0.55-1.30 Above high normal Creatinine for GFR [place] ([facility]) blood urea nitrogen 10 mg/dL 7-18 normal Blood Urea Nitro gen [place] ([facility]) glomerular filtration rate >60 Below low normal Deonna merular Filtration Rate [place] ([facility]) sodium level 140 mEq/L 136-145 normal Sodium Level [place] (No [facility]) chloride level 106 mEq/L 98-107 normal Chloride Level [place] ([facility]) carbon dioxide level 28 mEq/L 21-32 normal Carbon Dioxide Level [place] ([facility]) potassium serum 4.2 mEq/L 3.5-5.1 normal Potassium Serum [facility] ([facility]) anion gap 6 mEq/L 8-16 Below low normal Anion Gap [place] ( [facility]) calcium level 8.4 mg/dL 8.5-10.1 Below low normal Calcium Level AT [facility] ([facility]) ID Date Data Source [id number] 02/29/2020 05:16:00 AM EST [place] ([facility]) Name Value Range Interpretation Code Description Data Miya rce(s) Supporting Document(s) white blood count 8.8 10 4.0-10.0 normal White Blood Count [place] ([facility]) red blood count 4.24 10 4.00-5.40 normal Red Blood Count [facility] ([facility]) hematocrit 40.1 % 36.0-47.0 normal Hematocrit [place] ([facility]) mean corpuscular volume 94.6 fL 80.0-96.0 normal Mean Corpusc ular Volume [place] ([facility]) hemoglobin 12.0 g/dL 12.0-15.5 normal Hemoglobin [place] ([facility]) mean corpuscular HGB conc 29.9 g/dL 32.0-36.5 Below low zeeshan l Mean Corpuscular HGB Conc [place] ([facility]) mean corpuscular hemoglobin 28.3 pg 27.0-33.0 normal Mean Corpuscular Hemoglobin [place] ([facility]) platelet count, automated 151 10 150-450 normal Platelet C ount, Automated [place] ([facility]) red cell distribution width 14.0 % 11.5-14.5 normal Red Cell Distribution Width [place] ([facility]) nucleated red blood cell % 0.0 % 0-0 normal Nucleated Red Blood Cell % [place] ([facility]) ID Date Data Source [id number] 02/28/2020 11:28:00 PM EST [place] ([facility]) Name Value Range Interpretation Code Description Data Myia rce(s) Supporting Document(s) potassium random urine 96.0 mEq/L normal Potassium Ran dom Urine [place] ([facility]) ID Date Data Source [id number] 02/28/2020 11:28:00 PM EST [place] ([facility]) Name Value Range Interpretation Code Description Data Miya rce(s) Supporting Document(s) sodium,random urine 61 mEq/L normal Sodium,random Ur ine [place] ([facility]) ID Date Data Source [id number] 02/28/2020 11:28:00 PM EST [place] ([facility]) Name Value Range Interpretation Code Description Data Miya rce(s) Supporting Document(s) creatinine,random urine 165.0 mg/dL normal Creatinine, random Urine [place] ([facility]) ID Date Data Source [id number] 02/28/2020 11:28:00 PM EST [place] ([facility]) Name Value Range Interpretation Code Description Data Miya rce(s) Supporting Document(s) osmolality urine 523 mOsm/kg 500-800 normal Osmolality Urine [facility] ([facility]) ID Date Data Source [id number] 02/28/2020 11:28:00 PM EST [place] ([facility]) Name Value Range Interpretation Code Description Data Miya rce(s) Supporting Document(s) appearance, urine cloudy clear Above high normal Appearance, Urine [place] ([facility]) color, urine yellow yellow normal Color, Urine [place] (No [facility]) specific gravity urine auto 1.002-1.035 normal Specifi c [place] Urine Auto [place] ([facility]) pH,urine 7.0 units 5.0-9.0 normal pH,urine [place] ([facility]) protein, urine auto negative negative normal Protein, Urine A uto [facility] ([facility]) ketone, urine auto negative negative normal Ketone, Urine Aut o [place] ([facility]) bilirubin, urine auto negative negative normal Bilirubin, Uri ne Auto [place] ([facility]) nitrite, urine auto positive negative normal Nitrite, Urine A uto [place] ([facility]) urobilinogen, urine auto 0.2 mg/dL 0.0-2.0 normal Urobilinoge n, Urine Auto [place] ([facility]) glucose, urine (UA) auto negative negative normal Glucose, Ur ine (UA) Auto [facility] ([facility]) leukocyte esterase, urine auto 1+ negative Above high normal Leukocyte Esterase, Urine Auto [place] ([facility]) blood, urine blood negative negative normal Blood, Urine Bloo d [place] ([facility]) RBC, urine auto 1 /hpf 0-3 normal RBC, Urine Auto [facility] ([facility]) WBC, urine auto 13 /hpf 0-3 Above high normal WBC, Urine Au to [facility] ([facility]) bacteria, urine auto 3+ negative Above high normal Bacteria , Urine Auto [place] ([facility]) transitional epithelial auto <1 none normal Transit ional Epithelial Auto [place] ([facility]) mucus, urine small negative normal Mucus, Urine [place] ([facility]) squamous epithelial cell ur AU 5 /hpf 0-6 normal Squam ous Epithelial Cell Ur AU [place] ([facility]) hyaline cast, urine auto 0 /lpf 0-1 normal Hyaline Adams t, Urine Auto [facility] ([facility]) ID Date Data Source [id number] 02/28/2020 04:33:00 PM EST [place] ([facility]) Name Value Range Interpretation Code Description Data Miya rce(s) Supporting Document(s) procalcitonin <0.05 normal Procalcitonin [place] ( [facility]) ID Date Data Source [id number] 02/28/2020 04:33:00 PM EST [place] ([facility]) Name Value Range Interpretation Code Description Data Miya rce(s) Supporting Document(s) D-dimer quant 1194.11 NG/mL <500 Above high normal D-dimer [place] t [place] ([facility]) ID Date Data Source [id number] 02/28/2020 02:58:00 PM EST [place] ([facility]) Name Value Range Interpretation Code Description Data Miya rce(s) Supporting Document(s) istat pCO2 51.0 mmHg 35.0-45.0 Above high normal Istat pCO2 [place] ([facility]) istat pH 7.359 units 7.350-7.450 normal Istat pH [place] ([facility]) istat TCO2 30.0 mmol/L 23.0-27.0 Above high normal Istat TCO2 [place] ([facility]) istat HCO3 28.7 mmol/L 22.0-26.0 Above high normal Istat HCO3 [place] ([facility]) istat pO2 46.0 mmHg 80-105 Below low normal Istat pO2 [place] ( [facility]) istat base excess 3.0 mmol/L -2.0-3.0 normal Istat Base Excess [place] ([facility]) istat so2 79 % 95-98 Below low normal Istat So2 [place] ( [facility]) ID Date Data Source [id number] 02/28/2020 12:32:00 PM EST [place] ([facility]) Name Value Range Interpretation Code Description Data Miya rce(s) Supporting Document(s) free T3 < 0.5 2.2-4.0 Below low normal Free T3 [place] ( [facility]) ID Date Data Source [id number] 02/28/2020 12:32:00 PM EST [place] ([facility]) Name Value Range Interpretation Code Description Data Miya rce(s) Supporting Document(s) free T4 0.19 NG/dL 0.76-1.46 Below low normal Free T4 [place] ( [facility]) ID Date Data Source [id number] 02/28/2020 12:32:00 PM EST [place] ([facility]) Name Value Range Interpretation Code Description Data Miya rce(s) Supporting Document(s) osmolality serum 292 mOsm/kg 275-295 normal Osmolality Serum [facility] ([facility]) ID Date Data Source [id number] 02/28/2020 12:32:00 PM EST [place] ([facility]) Name Value Range Interpretation Code Description Data Miya rce(s) Supporting Document(s) magnesium level 2.1 mg/dL 1.8-2.4 normal Magnesium Level [facility] ([facility]) ID Date Data Source [id number] 02/28/2020 12:32:00 PM EST [place] ([facility]) Name Value Range Interpretation Code Description Data Miya rce(s) Supporting Document(s) uric acid 8.3 mg/dL 2.6-6.0 Above high normal Uric Acid [facility] ([facility]) ID Date Data Source [id number] 02/28/2020 12:32:00 PM EST [place] ([facility]) Name Value Range Interpretation Code Description Data Miya rce(s) Supporting Document(s) CPK creatine phosphokinase 277 U/L 26-192 Above high nor mal CPK Creatine Phosphokinase [facility] ([facility]) ID Date Data Source [id number] 02/28/2020 12:32:00 PM EST [place] ([facility]) Name Value Range Interpretation Code Description Data Miya rce(s) Supporting Document(s) HCG, serum qualitative negative negative normal HCG, Serum Qu alitative [facility] ([facility]) ID Date Data Source [id number] 02/28/2020 12:32:00 PM EST [place] ([facility]) Name Value Range Interpretation Code Description Data Miya rce(s) Supporting Document(s) thyroid stimulating hormone 190.000 uIU/mL 0.358-3.740 Above high normal Thyroid Stimulating Hormone [place] ([facility]) ID Date Data Source [id number] 02/28/2020 12:32:00 PM EST [place] ([facility]) Name Value Range Interpretation Code Description Data Miya rce(s) Supporting Document(s) glucose, fasting 108 mg/dL 70-100 Above high normal Glucose, Fas ting [facility] ([facility]) glomerular filtration rate >60 Below low normal Deonna merular Filtration Rate [place] ([facility]) creatinine for GFR 2.30 mg/dL 0.55-1.30 Above high normal Creatinine for GFR [place] ([facility]) blood urea nitrogen 11 mg/dL 7-18 normal Blood Urea Nitro gen [facility] ([facility]) sodium level 137 mEq/L 136-145 normal Sodium Level [facility] (No [facility]) carbon dioxide level 31 mEq/L 21-32 normal Carbon Dioxide Level [facility] ([facility]) chloride level 103 mEq/L 98-107 normal Chloride Level [place] ([facility]) potassium serum 4.4 mEq/L 3.5-5.1 normal Potassium Serum [facility] ([facility]) anion gap 3 mEq/L 8-16 Below low normal Anion Gap [place] ( [facility]) calcium level 9.6 mg/dL 8.5-10.1 normal Calcium Level [facility]) ID Date Data Source [id number] 02/28/2020 12:32:00 PM EST [place] ([facility]) Name Value Range Interpretation Code Description Data Miya rce(s) Supporting Document(s) AST/SGOT 18 U/L 7-37 normal AST/SGOT [facility] ([facility]) ALT/SGPT 11 U/L 12-78 Below low normal ALT/SGPT [facility] ( [facility]) alkaline phosphatase 98 U/L 45-117 normal Alkaline Phosph atase [facility] ([facility]) bilirubin,total 0.3 mg/dL 0.2-1.0 normal [facility] bilirubin,direct < 0.1 0.0-0.2 normal Bilirubin,direct AT [facility] ([facility]) albumin 4.0 gm/dL 3.2-5.2 normal Albumin [facility] ([facility]) total protein 7.8 gm/dL 6.4-8.2 normal Total Protein [place] ( [facility]) albumin/globulin ratio 1.2-2.2 Below low normal Albumin /globulin Ratio [place] ([facility]) ID Date Data Source [id number] 02/28/2020 11:41:00 AM EST [place] ([facility]) Name Value Range Interpretation Code Description Data Miya rce(s) Supporting Document(s) istat troponin 0.01 NG/mL 0.00-0.08 normal Istat Troponin [facility] ([facility]) ID Date Data Source [id number] 02/28/2020 11:40:00 AM EST [place] ([facility]) Name Value Range Interpretation Code Description Data Miya rce(s) Supporting Document(s) istat HCT 46.0 % 38.0-51.0 normal Istat HCT [facility] ([facility]) istat glucose 94 mg/dL 70-105 normal Istat Glucose [place] ( [facility]) istat Ca++ 4.4 mg/dL 4.5-5.3 Below low normal Istat Ca++ [facility] ( [facility]) istat potassium 6.9 mEq/L 3.5-5.1 Above high normal Istat Potassi um [facility] ([facility]) istat sodium 138 mEq/L 136-145 normal Istat Sodium [facility] (No [facility]) istat BUN 12 mg/dL 8-26 normal Istat BUN [facility] ([facility]) istat chloride 100 mEq/L 98-109 normal Istat Chloride [facility] ([facility]) istat CO2 32.0 mm/L 23.0-27.0 Above high normal Istat CO2 [place] ([facility]) istat creatinine 2.3 mg/dL 0.6-1.3 Above high normal Istat Creati nine [facility] ([facility]) ID Date Data Source [id number] 02/28/2020 11:26:00 AM EST [place] ([facility]) Name Value Range Interpretation Code Description Data Miya rce(s) Supporting Document(s) sars covid-19 amplification negative negative normal Sars Covid-19 Amplification [facility]) ID Date Data Source [id number] 02/28/2020 11:22:00 AM EST [facility]) Name Value Range Interpretation Code Description Data Miya rce(s) Supporting Document(s) white blood count 6.0 10 4.0-10.0 normal White Blood Count [facility] ([facility]) red blood count 4.71 10 4.00-5.40 normal Red Blood Count [facility] NA ([facility]) hemoglobin 13.8 g/dL 12.0-15.5 normal Hemoglobin [facility] ([facility]) hematocrit 44.9 % 36.0-47.0 normal Hematocrit [facility] ([facility]) mean corpuscular volume 95.3 fL 80.0-96.0 normal Mean Corpusc ular Volume [facility] ([facility]) mean corpuscular hemoglobin 29.3 pg 27.0-33.0 normal Mean Corpuscular Hemoglobin [facility] ([facility]) mean corpuscular HGB conc 30.7 g/dL 32.0-36.5 Below low zeeshan l Mean Corpuscular HGB Conc [facility] ([facility]) platelet count, automated 148 10 150-450 Below low zeeshan l Platelet Count, Automated [facility] ([facility]) red cell distribution width 14.3 % 11.5-14.5 normal Red Cell Distribution Width [facility] ([facility]) neutrophils % 67.9 % 36.0-66.0 Above high normal Neutrophils % A [place] ([facility]) lymph % 17.1 % 24.0-44.0 Below low normal Lymph % [place] ( [facility]) eos % 3.8 % 0.0-3.0 Above high normal Eos % [facility] ([facility]) baso % 1.2 % 0.0-1.0 Above high normal Baso % [facility] ([facility]) mono % 6.0 % 0.0-5.0 Above high normal [place] % [facility] ([facility]) immature granulocyte % 4.0 % 0-3.0 Above high normal Immatu re Granulocyte % [facility] ([facility]) nucleated red blood cell % 0.0 % 0-0 normal Nucleated Red Blood Cell % [facility] ([facility]) neutrophils # 4.1 10 1.5-8.5 normal Neutrophils # [facility] ( [facility]) lymph # 1.0 10 1.5-5.0 Below low normal Lymph # [place] ( [facility]) eos # 0.2 10 0.0-0.5 normal Eos # [facility] ([facility]) mono # 0.4 10 0.0-0.8 normal [place] # [facility]NA ([facility]) baso # 0.1 10 0.0-0.2 normal Baso # [facility] ([facility]) ID Date Data Source [id number] 12/07/2019 05:39:00 AM EDT [facility] 85 90 100 92 Name Value Range Interpretation Code Description Data Miya rce(s) Supporting Document(s) ID Date Data Source [id number] 12/06/2019 05:50:00 PM EDT [facility] 85 90 100 92 Name Value Range Interpretation Code Description Data Miya rce(s) Supporting Document(s) ID Date Data Source [id number] 12/06/2019 11:58:00 AM EDT [facility] 85 90 100 92 Name Value Range Interpretation Code Description Data Miya rce(s) Supporting Document(s) ID Date Data Source [id number] 12/06/2019 05:23:00 AM EDT [facility] 85 90 100 92 Name Value Range Interpretation Code Description Data Miya rce(s) Supporting Document(s) ID Date Data Source [id number] 12/06/2019 05:23:00 AM EDT [facility] Name Value Range Interpretation Code Description Data Miya rce(s) Supporting Document(s) HCT 37.7 % 36.0-47.0 N [facility] HGB 12.4 g/dL 12.0-15.5 N [facility] MCH 32.9 G/DL pg 32.0-36.5 N [facility] MCHC 32.8 PG % 27.0-33.0 [facility] PLATELETS 117 10 10*3/mm3 150-450 L [facility] RBC 3.78 10 10*6/mm3 4.00-5.40 L [facility] RDW 12.3 % 11.5-14.5 N [facility] WBC TOTAL 4.6 4.0-10.0 N [facility] ID Date Data Source [id number] 09/20/2019 12:00:00 AM EDT [facility] Geoff CHRISTIE Patient Name: EDWIN LARKIN[address] [facility] Date of : 1980[address] Date of Exam: 09/20/2019SHAGGY [place] [id number]#: Fax: [phone] EXAM: CT LOWER EXTREMITY W/O CONTRASTCLINICAL INFORMATION: Followup fracture.There are no prior left ankle CT's for comparison.Low dose 64 slice helical scanning through the left ankle was obtainedusing 2 mm increments and reconstructed in both coronal and sagittalplanes. 3D reconstructions were also obtained. Post processing wasperformed at the physician's workstation.There is a comminuted fracture of the posterior lateral distal tibia withinvolvement of the posterior aspect of the plafond. There is a transversefracture through the base of the medial malleolus with 1 mm displacement.There are no additional fr actures. The subtalar joints are within normallimits.IMPRESSION:Bimalleolar fracture as described above.Accredited by the [employer] in [place].DOMINIC Ann/Shashi you for referring EDWIN LARKIN to our office. Electronically Signed - MARY CAMPOS DO 09/21/19 13:24 Name Value Range Interpretation Code Description Data Miya rce(s) Supporting Document(s) ID Date Data Source [id number] 08/19/2019 04:08:42 PM EDT [facility] Measurements & CalculationsHeight: 63 inches (5 ft. 3 in.) 160.02 cm Weight: 203 pounds 3 oz. 92.36 kg Body Mass Index (BMI): 36.12BMI Interpretation: ObeseBody Surface Area (BSA): 1.95Weight Management Education Done (Nutrition/Physical Activity)Vital SignsTemperature: 98.9F oral Pulse Rate: 75 beats/minuteRespiratory Rate: 18 respirations/minuteBlood Pressure: 102/79 left arm sitting automaticO2 Saturation: 97% room airVital Signs performed by: Rai Page MA, August 19, 2019 4:22 PMInitial Intake Information From: patientRoom #: 13Infectious Disease / Travel ScreeningRecent travel for you or any close contacts? NoHave you had any close contact with anyone diagnosed with or under investigation for COVID-19 (coronavirus)? NoFever? NoRespiratory symptoms: cough, cold, congestion, shortness of breath, difficulty breathing? NoLoss of smell? NoLoss of taste? NoSmoking, Tobacco, Vaping or Smoke Exposure StatusSmoke Status: current every day smokerTobacco Use: YesAdv to Quit: YesDo you vape? NoPassive Smoke Exposure: YesMenstrual HistoryLast Menstrual Period (LMP): 05/02/2019Any possibility of ? NoComments: tubal Healthcare HistorySince your last office visit...Have you been admitted to the hospital? NoHospital admission date reported today: 08/18/2019Have you been to an emergency room (ER) or urgent care clinic? Yes - [facility] Emergency room (ER) or urgent care date reported today: 08/18/2019Have you seen another healthcare provider? Yes - [facility], pulmonologyHave you seen a dentist? NoIntake performed by: Rai Page MA, August 19, 2019 4:15 PMRate Your HealthIn general, would you say your health is? FairPain AssessmentAre you currently having any pain which... You would like your provider to address? Yes Affects your activity level? YesDepression Screening - PHQ-2Over the last two weeks, have you... Had little interest or pleasure in doing things? Not at all Been feeling down, depressed, or hopeless? Not at allAnxiety Screening - LEIF-2Over the last two weeks, have you been... Feeling nervous, anxious, or on edge? Not at all Unable to stop or control worrying? Not at allFood InsecurityWithin the past year...Did you worry whether your food would run out before you got money to buy more? NoWas there a time when the food you bought didn't last and you didn't have money to get more? NoPain AssessmentPain ScaleNumeric Rating Scale: 10 / 10Location: left ankle Duration: 1 weekFrequency: DailyCharacter/Quality: aching, burning, stabbing and throbbingIs the pain radiating? NoScreening, Brief Intervention, & Referral to Treatment (SBIRT)Pre-Screening Questions How many times have you have 4 or more drinks in a day? 0How many times have you used an illegal drug or used a prescription medication for a non-medical reason? 180Performed by: Rai Page MA, August 19, 2019 4:16 PMDAST Have you used drugs other than those required for medical reasons? Yes Do you abuse more than one drug at a time? No Are you always able to stop using drugs when you want to? No Have you ever had blackouts or flashbacks as a result of drug use? No Do you ever feel bad or guilty about your drug use? No Does your spouse (or parents) ever complain about your involvement with your drugs? Yes Have you neglected your family because of your use of drugs? Yes Have you engaged in illegal activities in order to obtain drugs? No Have you ever experienced withdrawal symptoms (felt sick) when you stopped taking drugs? No Have you had medical problems as a result of your drug use (e.g. memory loss, hepatitis, convulsions, bleeding)? Nasreen's Results: DAST Score: 4 DAST Interpretation: Brief Treatment Performed by: Rai Page MA, August 19, 2019 4:17 PMPatient History Medical History:DepressionHypothyroidismADHDAnxietyPTSDSubstance abuseSurgical History: n2Ncbpwv History:Substance abuse (Mother)Social/Personal History: Advised to Quit/Tobacco Education: YesChief ComplaintHosp DC RM 13 History of Present Illness (HPI)pt here for hypothyroid as well as as recent fx of her left ankle August 13, missed ortho appt. Also ran out of thyroid meds 3 mos ago and T4 was 0.5 with a TSH was 250. Pt was disoriented and mom took her to ER.Transitions of Care InboundProblem ReviewProblem List was reviewed and/or updated during this visit.Medication Reconciliation & ReviewMedication List was reviewed and/or updated during this visit, including review of any [id number]-jsu-uddwlgr medications, herbal therapies, and/or supplements.Allergy ReviewAllergy List was reviewed and/or updated during this visit.Adult Preventive CareProvider Calculated and Reviewed all Clinical Protocols for patient today. Screening Tobacco Screening: Smoking Status: current every day smoker (08/19/2019) Tobacco Use: Currently (08/19/2019) Advised to Quit: Yes (08/19/2019)Labs/Meds/Other Counseling-Nutrition and Physical Activity:BMI Interpretation: Obese (02/17/2019) Counseling: Done (02/02/2019) Physical Activity: Done (02/02/2019)Review of Systems General: Denies loss of appetite, chills, dizziness, fatigue, fever, continued fever, headache, feeling ill, swe ats, night sweats, sleep disturbances, weight loss. Ears/Nose/Throat: Denies earache, ear discharge, ringing in ears, decreased hearing, nasal congestion, nosebleeds, runny nose, sore throat, hoarseness, difficulty swallowing, dry mouth, tooth pain, bleeding gums, swollen glands. Cardiovascular: Denies chest pain, palpitations, feeling faint, trouble breathing w/exertion, SOB upon lying down, SOB at night, peripheral edema, elevated blood pressure, decreased heart rate. Respiratory: Denies cough, difficulty breathing, shortness of breath, excessive sputum, coughing up blood, wheezing, chest pain. Musculoskeletal: Complains of joint pain, leg pain. Physical ExamGeneral Appearance: well nourished, well hydrated, no acute distressRespiratory, Auscultation: clear to auscultation bilaterally; no rales, rhonchi, or wheezesRespiratory, Effort: no intercostal retractions or use of accessory musclesCardiovascular, Auscultation: S1, S2 audible; no murmur, rub, or gallop; RRRGait & Station: using crutchesLower Extremity, Left: ankle swollen, tenderOrientation: oriented to time, place, and personMood & Affect: no depression, anxiety, or agitationJudgment & Insight: intactCare Management Plan Transitions of CareInboundRate Your HealthIn general, would you say your health is? FairAssessment & Plan Problems:Added: Pathological fracture, left ankle, initial encounter for fracture (ICD-733.16) (EXG06-C88.472A)Hypothyroidism (ICD-244.9) (XBY07-R61.9) Assessment: renew thyroid medAssessment not SavedPathological fracture; left ankle; initial encounter for fracture (GOG07-H49.472A): pt to f/u ortho next thursdayMedications:PROPRANOLOL HCL 10 MG ORAL TABLETLEVOTHYROXINE SODIUM 150 MCG ORAL TABLETOMEPRAZOLE 20 MG ORAL CAPSULE DELAYED RELEASEWELLBUTRIN XL 300 MG ORAL TABLET EXTENDED RELEASE 24 HOURVENTOLIN HFA 108 (90 BASE) MCG/ACT INHALATION AEROSOL SOLUTIONALBUTEROL SULFATE NEBULIZATION SOLUTIONPREDNISONE 20 MG ORAL TABLETTRAZODONE HCL 50 MG ORAL TABLETMETHADONE HCL 10 MG/5ML ORAL SOLUTIONLEVOTHYROXINE SODIUM 150 MCG ORAL TABLETGABAPENTIN 300 MG ORAL CAPSULESEROQUEL 25 MG ORAL TABLETLEXAPRO 20 MG ORAL TABLETMedication Changes:Added: PROPRANOLOL HCL 10 MG ORAL TABLET-1 tab PO BIDRefil led:LEVOTHYROXINE SODIUM 150 MCG ORAL TABLET-one tab po QD Qty: 90[Tablet] Refills: 1 Method: ElectronicRemoved:CLONIDINE HCL 0.3 MG ORAL TABLET, MONISTAT 7 COMBO PACK JASMINE 100 & 2 MG-% (9GM) VAGINAL KIT-Use as directedChanged:From: ORAL LIOTHYRONINE SODIUM 25 MCG ORAL TABLET Qty: [id number] Refills: 90[Tablet] To: LEVOTHYROXINE SODIUM 150 MCG ORAL TABLET- one tab po QD Qty: 90[Tablet] Refills: 1Allergies:No Known Allergies (updated 11/03/2017) Medications:LEVOTHYROXINE SODIUM 150 MCG ORAL TABLET (LEVOTHYROXINE SODIUM) one tab po QD #90[Tablet] x 1 Route:ORAL Entered and Authorized by: Ian Rockwell DO Method used: Electronically to [facility] (retail) [facility] [place] [address] Note to Pharmacy: Route: ORAL; Indications: OTHER SPECIFIED HYPOTHYROIDISM RxID: [id number] signed by Ian Rockwell DO on 08/19/2019 at 4:34 PM Name Value Range Interpretation Code Description Data Miya rce(s) Supporting Document(s) ID Date Data Source [id number] 05/14/2019 07:40:[address] [facility] [address] [facility] Emergency Department [address] [place] [address] Phone #: [phone]- [phone] 05/14/2019 19:19 Patient: EDWIN LARKIN Sex: F : 1980 Age: 39yWEIGHT:90.7 kg (S) HEIGHT:63 inches (S) BMI:35.4ALLERGIES: No Known Drug AllergyCHIEF COMPLAINT: multiple, syncopeDIAGNOSIS: Urinary tract infectious disease, HypothyroidismLAB ORDERSOrder Description Priority Entered Acknowledged InitialedUrinalysis (Clean STAT 19:51 05/14/2019 19:51 Delia Burks) Delia Hernandez R.N. R.N.; Per protocol; Fabian Naidu PAUrine Drug Screen STAT 19:51 05/14/2019 19:51 Delia Hernandez R.N. R.N.; Per protocol; Fabian Naidu PACBC w Diff STAT 20:00 05/14/2019 20:03 Delia Rachidharrison CHRISTIE;CMP STAT 20:00 05/14/2019 20:03 Deliaelena Rashid Fabian CHRISTIE;PT/PTT STAT 20:00 05/14/2019 20:03 Deliaelena Rashid Fabian CHRISTIE;TSH STAT 20:00 05/14/2019 20:03 Deliaelena Rodriguezharrison CHRISTIE;Beta-HCG, Qual STAT 20:00 05/14/2019 20:03 Deliaelena RashidJerry CHRISTIE;DIAGNOSTIC STUDY ORDERSOrder Description Priority Entered Acknowledged InitialedChest 2 View STAT 20:00 05/14/2019 Ack'd: 20:03 Delia 21:55 Delia Rachid(Oxygen?(No)) Fabian CHRISTIE; [address] [facility] Emergency Department [address] [place] [address] Phone #: ext- [phone] 05/14/2019 19:19 Patient: EDWIN LARKIN Sex: F : 1980 Age: 39y Reason for Study: syncopeCT Head W/O Cont STAT 20:00 05/14/2019 Ack'd: 20:03 Delia 21:55 Delia Rachid(Oxygen?(No)) Fabian CHRISTIE; Reason for Study: Alter ed Sense of AwarenessMEDICATION/IV/DRIP/FLUID ORDERSOrder Description Priority Entered Acknowledged Initialed- (Synthroid 50mcg 21:46 05/14/2019 Ack'd: 21:48 21:55 Delia BlairPO) Winter Kowalski R.N., R.N.;Macrobid PO 100 22:19 05/14/2019 Cancelled: Patient Refusal 22:55 Keaton CHRISTEI;GENERAL ORDERSOrder Description Priority Entered Acknowledged InitialedEKG 20:00 05/14/2019 20:07 Franklin CHRISTIE;Blood Pressure 20:00 05/14/2019 20:07 Luz Maria CHRISTIE;Perioperative Assistant 20:00 05/14/2019 20:07 Franklin(continuous) Fabian CHRISTIE;Obtain Old EKG 20:00 05/14/2019 20:07 Franklin CHRISTIE;Pulse oximeter 20:00 05/14/2019 20:03 Delia Rashid(Continuous) Fabian CHRISTIE;Vitals 20:00 05/14/2019 20:03 Delia CHRISTIE;[Electronically signed by Franklin Hernandez RN (22:59 05/14/2019)][Electronically signed by Fabian Naidu (23:26 05/14/2019)][Electronically locked by Franklin Hernandez RN (22:59 05/14/2019)] Name Value Range Interpretation Code Description Data Miya rce(s) Supporting Document(s) ID Date Data Source [id number] 05/14/2019 07:40:00 PM [facility] [address] [facility] Emergency Department [address] [place] [address] Phone #: ext- [phone] 05/14/2019 19:19 Patient: EDWIN LARKIN Sex: F : 1980 Age: 39yWeight: 90.7 kgHeight/Length: 63 in.BMI: 35.4ALLERGIES: No Known Drug AllergyThe patient's Home Medications are listed below:CONTINUE TAKING THE FOLLOWING MEDICATIONS: Gabapentin Oral 600 mg , 3x a day Levothyroxine has been off it for 1 month, since her inpatient Psych treatment Lexapro Oral 30 mg, daily Methadone HCl Oral 110 mg , daily, dose increased last week SEROquel Oral 25 mg, 3x a day, last dose May 13 2099The source(s) of the original Home Medication information:Not obtained.The following Medications were given to the patient in the Emergency Department:synthroid PO 50 mcg, administered: 05/14/2019 9:55:00 PMThe following Medications were prescribed to the patient:Macrobid 100 mg capsule Take 1 capsule twice a day for 7 days -- Dispense 14 capsule. Refills: 0.Substitution permitted.Pharmacy - [facility]- [address] ; [place], [place] [id number]. . -- SHAHNAZ Cabrera Name Value Range Interpretation Code Description Data Miya rce(s) Supporting Document(s) ID Date Data Source [id number] 05/14/2019 07:40:00 PM [place] [address] [facility] Emergency Department [address] [place] [address] Phone #: ext- [phone] 05/14/2019 19:19 Patient: EDWIN LARKIN Sex: F : 1980 Age: 39yWeight: 90.7 kgHeight/Length: 63 inBMI: 35.4A LLERGIES: No Known Drug Allergy Date/Time Medication Administered Medication OrderedGiven synthroid * - (Synthroid 50mcg PO)21:55 05/14/2019 Dose: 50 mcg * Clementine Hernandez R.N. Name Value Range Interpretation Code Description Data Miya rce(s) Supporting Document(s) ID Date Data Source [id number] 05/14/2019 07:40:00 PM [facility] [address] [facility] Emergency Department [address] [place] [address] Phone #: ext- [phone] 05/14/2019 19:19 Patient: EDWIN LARKIN Sex: F : 1980 Age: 39yAcute urinary tract infection with cystitis and hematuria.Congenital hypothyroidism without goiter.INSTRUCTIONS(Call your case liner to have [employer] deliver your Thyroid medicine to you and take the synthroidtomorrow that you were given in the ED.).Warnings: GENERAL WARNINGS: Return or contact your physician immediately if your conditionworsens or changes unexpectedly, if not improving as expected, or if other problems arise.SPECIFICALLY, return if you develop chest pain, fluttering sensation in your chest, lightheadedness,fainting or extreme fatigue.Your Current Medications: Your current home medications have been reviewed.CONTINUE TAKING THE FOLLOWING MEDICATIONS:Gabapentin Oral : 600 mg 3x a day.Levothyroxine has been off it for 1 month, since her inpatient Psych treatment*.Lexapro Oral : 30 mg daily.Methadone HCl Oral : 110 mg daily, dose increased last week.SEROquel Oral : 25 mg 3x a day, last dose May 13 2099.Prescription Medications:Macrobid 100 mg capsule Take 1 capsule twice a day for 7 days -- Dispense 14 capsule. Refills: 0.Substitution permitted.Pharmacy - [facility]- [place], [place] - [address] [place] [address] ; [place], [place] [id number]. .Follow-up:Follow up with your doctor Thursday. Reason for referral: evaluation, treatment and refer to Endocrinology.Summary of care provided to patient.Understanding of the discharge instructions verbalized by patient. ADDITIONAL INFORMATIONBladder Infection, Female (Adult) [address] [facility] Emergency Department [address] [place] [address] Phone #: ext- [phone] 05/14/2019 19:19 Patient: EDWIN LARKIN Sex: F : 1980 Age: 39yUrine is normally doesn't have any bacteria in it. But bacteria can get into the urinary tract from theskin around the rectum. Or they can travel in the blood from elsewhere in the body. Once they are inyour urinary tract, they can cause infection in the urethra (urethritis), the bladder (cystitis), or thekidneys (pyelonephritis).The most common place for an infection is in the bladder. This is called a bladder infection. This isone of the most common infections in women. Most bladder infections are easily treated. They arenot serious unless the infection spreads to the kidney.The phrases "bladder infection," "UTI," and "cystitis" are often used to describe the same thing. Butthey are not always the same. Cystitis is an inflammation of the bladder. The most common cause ofcystitis is an infection.SymptomsThe infection causes inflammation in the urethra and bladder. This causes many of the symptoms.The most common symptoms of a bladder infection are: Pain or burning when urinating Having to urinate more often than usual Urgent need to urinate Only a small amount of urine comes out Blood in urine [address] [facility] Emergency Department [address] [place] [address] Phone #: ext- [phone] 05/14/2019 19:19 Patient: EDWIN LARKIN Sex: F : 1980 Age: 39y Abdominal discomfort. This is usually in the lower abdomen above the pubic bone. Cloudy urine Strong- or bad-smelling urine Unable to urinate (urinary retention) Unable to hold urine in (urinary incontinence) Fever Loss of appetite Confusion (in older adults)CausesBladder infections are not contagious. You can't get one from someone else, from a toilet seat, orfrom sharing a bath.The most common cause of bladder infections is bacteria from the bowels. The bacteria get onto theskin around the opening of the urethra. From there, they can get into the urine and travel up to thebladder, causing inflammation and infection. This usually happens because of: Wiping improperly after urinating. Always wipe from front to back. Bowel incontinence Procedures such as having a catheter inserted Older age Not emptying your bladder. This can allow bacteria a chance to grow in your urine. Dehydration Constipation Sex Use of a diaphragm for co ntrolTreatmentBladder infections are diagnosed by a urine test. They are treated with antibiotics and usually clear upquickly without complications. Treatment helps prevent a more serious kidney infection. [address] [facility] Emergency Department [address] [place] [address] Phone #: ext- [phone] 05/14/2019 19:19 [id number] Sex[facility] F : 1980 Age: 39yMedicinesMedicines can help in the treatment of a bladder infection: Take antibiotics until they are used up, even if you feel better. It is important to finish them to make sure the infection has cleared. You can use acetaminophen or ibuprofen for pain, fever, or discomfort, unless another medicine was prescribed. If you have chronic liver or kidney disease, talk with your healthcare provider before using these medicines. Also talk with your provider if you've ever had a stomach ulcer or gastrointestinal bleeding, or are taking blood-thinner medicines. If you are given phenazopydridine to reduce burning with urination, it will cause your urine to become a bright orange color. This can stain clothing.Care and preventionThese self-care steps can help prevent future infections: Drink plenty of fluids to prevent dehydration and flush out your bladder. Do this unless you must restrict fluids for other health reasons, or your doctor told you not to. Proper cleaning after going to the bathroom is important. Wipe from front to back after using the toilet to prevent the spread of bacteria. Urinate more often. Don't try to hold urine in for a long time. Wear loose-fitting clothes and cotton underwear. Avoid tight-fitting pants. Improve your diet and prevent constipation. Eat more fresh fruit and vegetables, and fiber, and less junk and fatty foods. Avoid sex until your symptoms are gone. Avoid caffeine, alcohol, and spicy foods. These can irritate your bladder. Urinate right after intercourse to flush out your bladder. If you use control pills and have frequent bladder infections, discuss it with your doctor.Follow-up careCall your healthcare provider if all symptoms are not gone after 3 days of treatment. This is especiallyimportant if you have repeat infections.If a culture was done, you will be told if your treatment needs to be changed. If directed, you cancall to find out the results. [address] [facility] Emergency Department [address] [place] [address] Phone #: ext- [phone] 05/14/2019 19:19 [id number] Sex: F : 1980 Age: 39yIf X-rays were done, you will be told if the results will affect your treatment.Call [phone] if any of the following occur: Trouble breathing Hard to wake up or confusion Fainting or loss of consciousness Rapid heart rateWhen to seek medical adviceCall your healthcare provider right away if any of these occur: Fever of 100.4F (38.0C) or higher, or as directed by your healthcare provider Symptoms are not better by the third day of treatment Back or belly (abdominal) pain that gets worse Repeated vomiting, or unable to keep medicine down Weakness or dizziness Vaginal discharge Pain, redness, or swelling i n the outer vaginal area (labia) [id number] [employer]. [address] [place] [address], [place] [address]. All rights reserved. This information is not intended as asubstitute for professional medical care. Always follow your healthcare professional's instructions.Hypothyroidism [address] [facility] Emergency Department [address] [place] [address] Phone #: ext- [phone] 05/14/2019 19:19 Patient: EDWIN LARKIN Sex: F : 1980 Age: 39yYou have hypothyroidism. This means your thyroid gland is not making enough thyroid hormone. Thishormone is vital to body growth and metabolism. If you don't make enough, many body processesslow down. This can cause symptoms throughout the body. Hypothyroidism can range from mild tosevere. The most severe form is called myxedema.There are a number of causes of hypothyroidism. A common cause is Johny's disease. Thisdisease causes the body's own immune system to attack the thyroid gland. When you have certaintreatments, such as surgery to remove the thyroid gland, this can also cause hypothyroidism.Sometimes the t hyroid gland is not functioning because of lack of stimulation from the pituitary gland.Symptoms of hypothyroidism can include: Fatigue Trouble concentrating or thinking clearly; forgetfulness Dry skin Hair loss Weight gain Low tolerance to cold Constipation Depression Personality changes Tingling or prickling of the hands or feet [address] [facility] Emergency Department [address] [place] [id number] Phone #: ext- [phone] 05/14/2019 19:19 Patient: EDWIN LARKIN Sex: F : 1980 Age: 39y Heavy, absent, or irregular periods (women only)Older adults may sometimes have other symptoms. These can include: Muscle aches and weakness Confusion Incontinence (unable to control urine or stool) Trouble moving around FallingTreatment for hypothyroidism involves taking thyroid hormone pills daily. These pills replace thehormone your thyroid doesn't make. You will likely need to take a daily pill for the rest of your life.Tips for taking this medicine are given below.Home careTips for taking your medicine Take your thyroid hormone pills as prescribed by your healthcare provider. This is most often 1 pill a day on an empty stomach. Use a pillbox labeled with the days of the week. This will help you remember to take your pill each day. Don't take products that contain iron and calcium or antacids within 4 hours of taking your thyroid hormone pills. Don't take other medicines with your thyroid hormone pill without checking with your provider first. Tell your provider if you have any side effects from your medicines that bother you, especially any chest pain or irregular heartbeats. Never change the dosage or stop taking your thyroid pills without talking to your provider first.General care Always talk with your provider before trying other medicines or treatments for your thyroid problem. If you see other healthcare providers, be sure to let them know about your thyroid problem. Let your healthcare provider know if you become because your dose of thyroid hormone will need to be adjusted. [address] [facility] Emergency Department [address] [place] [address] Phone #: ext- [phone] 05/14/2019 19:19 Patient: EDWIN LARKIN Sex: F : 1980 Age: 39yFollow-up careSee your healthcare provider for checkups as advised. You may need regular tests to check the levelof thyroid hormone in your blood.When to seek medical adviceCall your healthcare provider right away if any of these occur: New symptoms develop Symptoms return, continue, or worsen even after treatment Extreme fatigue Puffy hands, face, or feet Fast or irregular heartbeat ConfusionCall 911Call 911 if any of these occur: Fainting Chest pain Shortness of breath or trouble breathing [phone] [employer] [place] [address], [place] [address]. All rights reserved. This information is not intended as asubstitute for professional medical care. Always follow your healthcare professional's instructions. You have been given the following additional information: Bladder Infection, Female (Adult) Hypothyroidism(Electronically signed by SHAHNAZ Cabrera 05/14/2019 23:26) Name Value Range Interpretation Code Description Data Miya rce(s) Supporting Document(s) ID Date Data Source [id number] 05/14/2019 07:40:00 PM [facility] 1 Clinical Report - Nurses [facility] Emergency Department [address] [place] [address] Phone #: [phone]- [phone] 05/14/2019 19:19 Patient: EDWIN LARKIN Sex: F : 1980 Age: 39yTRIAGEArrived by private vehicle. Historian: patient.Triage time: 19:15 05/14/2019.Chief Complaint: MULTIPLE SYNCOPAL EPISODES.This occurred today. The patient has recovered. Witnessed: Event was witnessed. --19:26 05/14/19 Gila Hernandez R.N.Acuity: LEVEL 3.SEPSIS SCREEN: Negative (no infection suspected/documented). --19:28 05/14/19 Delia Hernandez R.N.19:26 05/14/19. BP: 111/91. MAP: 97. HR: 70. RR: 14. O2 saturation: 99%. Temp: 98.3 F. Pain level now:0/10. --19:28 05/14/19 Delia Hernandez R.N.Arrived from home ("medicaid cab"). --19:32 05/14/19 Delia Hernandez R.N.Weight: 90.7 kg stated. Height/Length: 63 inches Per Patient. BMI: 35.4. --19:27 05/14/19 Delia Hernandez R.N.MedicationsLexapro Oral 30 mg, daily. --19:28 05/14/19 Delia Hernandez R.N. SEROquel Oral 25 mg, 3x a day (last dose May 13 2099). --19:29 05/14/19 Delia Hernandez R.N. Gabapentin Oral 600 mg , 3x a day. --19:30 05/14/19 Delia Hernandez R.N. Methadone HCl Oral 110 mg , daily (dose increased last week). --19:30 05/14/19 Delia Hernandez R.N. Levothyroxine has been off it for 1 month, since her inpatient Psych treatment. --19:31 05/14/19 Delia Caballero R.N.AllergiesNo Known Drug Allergy. --19:28 05/14/19 Delia Hernandez R.N.PROBLEMS:Sarcoidosis.PTSD.Major depressive disorder.Drug Addiction.Anxiety Reaction. --19:32 05/14/19 Delia Hernandez R.N.ADDITIONAL SURGERIES:. 2 Clinical Report - Nurses [facility] [place] [address] Phone #: ext- [phone] 05/14/2019 19:19 Patient: EDWIN LARKIN [facility] [id number] Sex: F : 1980 Age: 39y Tubal Ligation. --19:32 05/14/19 Delia Hernandez R.N. History SOCIAL HX: Current every day light tobacco smoker- less than 1/2 a pack per day (since age 15. States that she has information on quitting already.). SELF HARM ASSESSMENT: Self harm assessment was performed. The patient answered "no" to the question(s) "Do you have thoughts of harming or killing yourself?" and "Have you recently had thoughts about harming or killing others?". ABUSE ASSESSMENT: No report of abuse. --19:34 05/14/19 Delia Hernandez R.N. SOCIAL HX: No alcohol use or drug use. The patient has not traveled outside the [place] Infectious disease exposure: Patient is a known carrier of MRSA. (was treated for CDiff and MRSA in her s putum). --19:35 05/14/19 Delia Hernandez R.N. FALL RISK ASSESSMENT: Fall risk assessment completed. Risk factors identified include dizziness and patient medications and history of fall. Fall interventions initiated. Bed in low position. Brakes on. Call light in reach of patient. --19:35 05/14/19 Delia Hernandez R.N.PHYSICAL ASSESSMENTAmbulatory to room.GENERAL / NEURO / PSYCH: Oriented X 4. Appears in no acute distress. Alert. Speech within normallimits. NIH Stroke Scale: score 0. Level of Consciousness: alert (0). LOC Questions: both (0). LOCCommands: both (0). Best gaze: normal (0). Visual field loss: none (0). Facial palsy: normal (0). Motorarm: no drift right arm (0) and no drift left arm (0). Motor leg: no drift right leg (0) and no drift left leg (0).Limb ataxia: none (0). Sensory loss: none (0). Aphasia: none (0). Dysarthria: normal (0). Extinctionand inattention: none (0).HEENT: No facial asymmetry noted. Pupils equal, round and reactive to light.RESPIRATORY: Breath sounds within no rmal limits. Respirations not labored.CVS: Cardiac rhythm: normal sinus rhythm. Capillary refill less than 2 seconds.GI / : Abdomen soft and nontender.SKIN: Skin is warm and dry. --19:54 05/14/19 Franklin Hernandez RN.NURSING PROGRESS NOTESMonitoring of patient in place. Patient gowned. Head of bed elevated. Reassurance given. Call lightplaced in reach. Bed placed in lowest position. --19:28 05/14/19 Delia Hernandez R.N. EKG time: (19:26 05/14/2019). EKG was performed by a tech and shown to the ED physician. --19:33 05/14/19 Delia Hernandez R.N. Checked patient name and birthdate: patient confirmed. Clean catch urine collected; sample sent to lab for urinalysis and drug screen. Specimen labeled in the presence of the patient. --19:50 05/14/19 Delia Hernandez R.N. 3 Clinical Report - Nurses [facility] Emergency Department [address] [place] [address] Phone #: ext- [phone] 05/14/2019 19:19 Patient: EDWIN LARKIN Sex: F : 1980 Age: 39y Patient gowned. Head of bed elevated 30 degrees. Reassurance given. Call light placed in reach. Bed placed in lowest position. Brakes of bed on. Patient ready for evaluation- ED physician notified. --19:55 05/14/19 Franklin Hernandez RN 20:14 05/14/19. BP: 119/84. MAP: 95. HR: 65. RR: 13. O2 saturation: 95%. --20:14 05/14/19 [facility] TechShanell ER Tech1 21:55 05/14/2019 synthroid * PO 50 mcg --21:55 05/14/19 Delia Hernandez R.N.DISPOSITION / DISCHARGE Departure time: 22:58 05/14/2019. Condition at departure: unchanged. No learning barriers present. Discharge instructions provided and reviewed with the patient. Reviewed medication(s) side effects, precautions, dosing and course information. Prescription(s) sent electronically to pharmacy. Reviewed referral to family practice for followup. Patient verbalized understanding. Written instructions provided in Sami. The patient was discharged home. She left ambulatory and via taxi. ( patient refused all vital signs wanted to go out to smoke, Also refused Macrobid provider aware). --22:58 05/14/19 Franklin Hernandez RN 22:56 05/14/19. BP: unable to obtain. HR: unable to obtain. RR: unable to obtain. O2 saturation: unable to obtain. Pain level now deferred. --22:58 05/14/19 Franklin Hernandez RN 22:59 05/14/19. Temp: unable to obtain. --22:59 05/14/19 Franklin Hernandez RN.Locked/Released at 05/14/2019 22:59 by Franklin Hernandez RN Name Value Range Interpretation Code Description Data Miya rce(s) Supporting Document(s) ID Date Data Source [id number] 05/14/2019 07:40:00 PM [facility] 1 Clinical Report - Physicians/Mid Levels [facility] Emergency Department [address] [place] [address] Phone #: ext- [phone] 05/14/2019 19:19 [id number] Sex[facility] F : 1980 Age: 39y Time Seen: 19:50 05/14/2019. Arrived- By private vehicle. Historian- patient.HISTORY OF PRESENT ILLNESS Chief Complaint: MULTIPLE SYNCOPAL EPISODES. This occurred today. The patient has recovered. Patient was witnessed to be last known well. Event was witnessed. (not present at the time, reprted by pt). Witnessed by friend. The patient had no preceding symptoms. At time of event, she was standing. The patient collapsed. Experienced repeated episodes. The episode lasted an unknown duration. No injuries noted. Currently has nausea. Similar symptoms previously. Patient has had similar symptoms several times.REVIEW OF SYSTEMSHas had a tubal ligation. She has had a headache. No dizziness, weakness, chest pain, palpitations orabdominal pain. No vomiting, diarrhea, black stools, numbness or bloody stools. No fever, sore throat,difficulty breathing, difficulty with urination or skin rash. No enlarged lymph nodes or joint pain.PAST HISTORYProblems:Major depressive disorder.Sarcoidosis.PTSD.Drug Addiction.Anxiety Reaction. Additional Surgeries: . Tubal Ligation. Medications: Levothyroxine has been off it for 1 month, since her inpatient Psych treatment. Methadone HCl Oral 110 mg , daily (dose increased last week). Gabapentin Oral 600 mg , 3x a day. SEROquel Oral 25 mg, 3x a day (last dose May 13 2099). Lexapro Oral 30 mg, daily. Allergies: No Known Drug Allergy.SOCIAL HISTORYLight tobacco smoker (cigarette)- less than 1/2 a pack per day. No alcohol use or drug use. 2 Clinical Report - Physicians/Mid Levels [facility] Emergency Department [address] [place] [address] Phone #: ext- [phone] 05/14/2019 19:19 Patient: EDWIN LARKIN Sex: F : 1980 Age: 39yPHYSICAL EXAMVital Signs: 05/14/2019 19:26 BP: 111/91. MAP: 97. HR: 70. RR: 14. O2 saturation: 99%. Temp: 98.3 F.Pain level now: 0/10. Have been reviewed. Hypertensive. Oxygen saturation normal.Appearance: Alert. No acute distress. Anxious.Eyes: Pupils equal, round and reactive to light. No nystagmus. Extraocular movements normal.ENT: Normal ENT inspection. TM's normal. Moist mucous membranes. Pharynx normal.Neck: Normal inspection.CVS: Normal heart rate and rhythm. Heart sounds normal. Pulses normal.Respiratory: No respiratory distress. Painless inspiration. Breath sounds normal.Abdomen: Soft and nontender. No organomegaly.Back: Normal inspection.Skin: Skin warm and dry. Normal skin color. No rash. Normal skin turgor.Extremities: Extremities exhibit normal ROM.Neuro: Alert. Oriented X 3. Mood/affect normal. Speech normal. Cranial nerves normal (as tested).No cerebellar findings. No motor deficit. No sensory deficit. Reflexes normal.LABS, X-RAYS, AND EKGChest X-ray: No acute disease. Views: PA and lateral. The X-rays were independently viewed by me.Interpretation time: 21:59 05/14/2019.CT Head: (No acute intracranial process.). Head CT performed without contrast. The study wasinterpreted by the radiologist and contemporaneously by me. Interpretation time: 21:59 05/14/2019.Laboratory Tests: CBC w Diff: (SIMBA: 05/14/2019 20:15) ( MsgRcvd 05/14/2019 21:09) Final results Test Result Flag Units (Reference) CBC W/AUTOMATED DIFF COMPLETE BLOOD COUNT WBC 4.6 10/uL (4.2 - 11.0) RBC 3.81 L 10/uL (4.20 - 5.40) HEMOGLOBIN 11.4 L g/dL (12.0 - 16.0) HEMATOCRIT 35.6 L % (37.0 - 47.0) MCV 93.4 fL (81.0 - 101) MCH 29.9 pg (27.0 - 34.0) MCHC 32.0 g/dL (31.0 - 36.0) RDW 13.9 % (11.5 - 14.5) PLATELETS 120 L 10/uL (150 - 450) MPV 8.6 fL (7.4 - 10.4) NEUT 58.2 % (37.0 - 80.0) LYMPH 29.2 % (25.0 - 40.0) MONO 6.5 % (3.0 - 8.0) EOS 4.4 % (0.0 - 7.0) BASO 1.3 % (0.0 - 2.5) %IG 0.4 H % (0.0 - 0.0) %NRBC 0.0 % (0.0 - 0.0) #NEUT 2.67 10/uL (2.00 - 6.90) #LYMPH 1.34 10/uL (0.60 - 3.40) #MONO 0.30 10/uL (0.00 - 0.90) #EOS 0.20 10/uL (0.00 - 0.70) #BASO 0.06 10/uL (0.00 - 0.20) #IG 0.02 10/uL (0.00 - 0.10) #NRBC 0.00 10/uL (0.00 - 0.00) MANUAL DIFF SEE BELOW SEGS 53 % (37 - 80) %LYMPH 32 % (25 - 40) %MONO 8 % (3 - 8) %EOS 7 % (0 - 7) 3 Clinical Report - Physicians/Mid Levels [facility] Emergency Department [address] [place] [address] Phone #: ext- [phone] 05/14/2019 19:19 [id number] Sex: F : 1980 Age: 39y RBC MORPH NOT INDICATEDCMP: (SIMBA: 05/14/2019 20:15) ( MsgRcvd 05/14/2019 20:56) Final results Test Result Flag Units (Reference) COMPREHENSIVE METABOLIC PANEL COMPREHENSIVE METABOLIC PANEL SODIUM 141 mEq/L (134 - 153) POTASSIUM 4.1 mEq/L (3.6 - 5.0) CHLORIDE 103 mEq/L (98 - 107) CO2 31 H MEQ/L (22 - 30) GLUCOSE 84 MG/DL (65 - 110) BUN 17 MG/DL (7 - 21) CREATININE 1.8 H MG/DL (0.7 - 1.5) BUN/CREAT 9 (8 - 27) TOTAL PROTEIN 6.7 G/DL (6.3 - 8.2) ALBUMIN 4.6 G/DL (3.9 - 5.0) GLOBULIN 2.1 L GM/DL (2.4 - 3.2) A/G RATIO 2.2 H (0.8 - 2.0) CALCIUM 9.3 MG/DL (8.4 - 10.2) TOTAL BILI <0.7 MG/DL (0.2 - 1.3) ALKALINE PHOS 59 U/L (38 - 126) SGOT/AST 21 U/L (5 - 40) SGPT/ALT 8 U/L (7 - 56) ANION GAP 7.0 L mmol/L (8.0 - 16.0) AGE 39 yrs NON-AA GFR 34 mL/min AFR AMER GFR 41 mL/min Male GFR Interpren tation 20-49 yrs >60 mL/min Wjjyfn77-80 yrs >56 mL/min Normal 60-69 yrs >49 mL/min Normal 70-79yrs>42 mL/min Normal 80 and above >35 mL/min Normal Female GFRInterpretation 20-39 yrs >60 mL/min Normal 40-49 yrs >58 mL/minNormal 50-59 yrs >51 mL/min Normal 60-69 yrs >45 mL/min Qzldfw24-52 yrs >39 mL/min Normal 80 and above >32 mL/min NormalPT/PTT: (SIMBA: 05/14/2019 20:15) ( MsgRcvd 05/14/2019 20:44) Final results Test Result Flag Units (Reference) PROTIME 11.8 SECONDS (11.0 - 15.5) INR 0.86 L (0.93 - 1.23) PTT 34.5 SECONDS (24.8 - 36.7) \\BLDo\\INR INTERPRETATION\\BLDx\\ Therapeutic range for Coumadin andrelated oral anticoagulants. -International Normalized Ratio (INR): 2.0 - 3.0 for VenousThrombosis, Pulmonary Embolus, Tissue heart valves, Acute CO Atrial Fibrillation, Valvular heart diseaseand recurrent Systemic Embolism. -International Normalized Ratio (INR): 2.5 - 3.5 forMechanical Prosthetic valve. \\BLDo\\PTT INTERPRETATION\\BLDx\\Critical results for patients not on therapy: >50 seconds Critical results for patients on therapy:>119 seconds Therapeutic range for patients on therapy: 58 - 90 seconds Coag studies fromline draws may not be accurate due to Heparin and other interferences.TSH: (SIMBA: 05/14/2019 20:15) ( [facility]30) Final results Test Result Flag Units (Reference) TSH 255.00 H uIU/mL (0.47 - 5.01)Beta-HCG, Qual Urine: (SIMBA: 05/14/2019 19:55) ( [facility] 05/14/2019 20:24) Final results Test Result Flag Units (Reference) HCG URINE QUAL NEGATIVE (NORMAL: NEGAT HCG URINE QL REENTER NEGATIVE (NORMAL: NEGAT { KIT LOT # [id number] ){ KIT EXP DATE06/28/20 ){ PROCEDURAL CONTROL VALID)Chest 2 View: (SIMBA: 05/14/2019 20:00) ( [facility] 05/14/[facility] 21:34) In Progress 4 Clinical Report - Physicians/Mid Levels [facility] Emergency Department [address] [place] [address] Phone #: ext- [phone] 05/14/2019 19:19 Patient: EDWIN LARKIN Sex: F : 1980 Age: 39yCHEST 2 VIEWSReason(s): syncopeTRANSPORTATION: WC IV? O2? Oxygen?(No) Room: ED: NoCT Head W/O Cont: (SIMBA: 05/14/2019 20:00) ( [facility] 05/14/2019 21:52) Final results Exam CT HEAD W/[place] [address] ---------NAME--------- NUMBER SEX AGE ADMIT DISC. XRAY# F/C TYPE CHAYA PINEDA [id number] F 39 05/14/19 [id number] XBE E/R DATE OF : [birth year] M/R# [id number] #: [id number] TR-1B LOCATION: EMERGENCY DEPT TRANSCRIBED: 05/14/19 21:[address] HEAD W/O CONTRAST [id number] COMPLETED:05/14/19 21:34 JER [id number] Reason(s): Altered Sense of Awareness PHYSICIAN: RICHARD NAIDU R A D I O L O G Y R E P O R T PATIENT HISTORY: ALTERED SENSE OF AWARENESS, ACT DOSE- 797.2mGy*cm, VERIFIED 2 IDENTIFIERS, NEG HCG, EST DOSE- 797.1mGy*cm. [facility] BRAIN (DICOM Hx) CT Head ( Brain ) Ventricles and sulci are normal for age. No significant small vessel ischemic white matter disease noted. There is no evidence for mass, mass effect or midline shift. No abnormal extra-axial fluid collection. No intracranial bleed. The third and fourth ventricles are patent. Basal cisterns are unremarkable. Bony structures are unremarkable. Mastoid air cells are within normal limits. Paranasal sinuses are normal. IMPRESSIONS: No acute intracranial process. If indicated and depending upon review of laboratory and clinical data, MRI examination or other examination may be of value. While performing the above CT examination, radiation dose reduction was accomplished utilizing automated exposure control, adjusting of the mA and kV based on the patient's body size and/or the use of imperative reconstructive techniques. Electronically Signed By: Tereso Jerome M.D. , [employer] gist Date/Time: 05/14/19 21:.2152.JER.to EMERGENCY via modemUrinalysis: (SIMBA: 05/14/2019 19:55) ( MsgRcvd 05/14/2019 20:23) Final results Test Result Flag Units (Reference) URINALYSIS URINALYSIS 5 Clinical Report - Physicians/Mid Levels [facility] Emergency Department [address] [place] [address] Phone #: ext- [phone] 05/14/2019 19:19 Patient: EDWIN LARKIN Sex: F : 1980 Age: 39y SOURCE Clean Catch COLOR yellow (NORMAL: Yello CLARITY clear (NORMAL: Clear SPEC GRAVITY 1.015 (1.001 - 1.030 pH 6 (5 - 9) GLUCOSE NORM (NORMAL: Negat BILIRUBIN NEG (NORMAL: Negat KETONE NEG (NORMAL: Negat PROTEIN NEG (NORMAL: Negat NITRITE NEG (NORMAL: Negat BLOOD NEG (NORMAL: Negat LEUK EST 100 A (NORMAL: Negat UROBILINOGEN NOR (less than 1.0 MICROSCOPIC See Below WBC 5 - 7 A (NORMAL: NONE RBC 0 - 1 (NORMAL: NONE EPITHELIAL MODERATE A (NORMAL: NONE BACTERIA 2+ MOD A (NORMAL: NONE Drug Screen-Urine: (SIMBA: 05/14/2019 19:55) ( MsgRcvd 05/14/2019 20:32) Final results Test Result Flag Units (Reference) DRUG SCREEN URINE URINE DRUG SCREEN AMPHETAMINES NEGATIVE (NORMAL: NEGAT BARBITURATES NEGATIVE (NORMAL: NEGAT BENZO NEGATIVE (NORMAL: NEGAT COCAINE NEGATIVE (NORMAL: NEGAT THC PRESUMP POS A (NORMAL: NEGAT OPIATES NEGATIVE (NORMAL: NEGAT PCP NEGATIVE (NORMAL: NEGAT \\BLDo\\URINE DRUG SCREEN INTERPRETATION\\BLDx\\ THE CUTOFFF LEVELS FOR DETECTION ARE FOLLOWS: AMPHETAMINES 1000 ng/ml BARBITUARATES 200 ng/ml BENZODIAZEPINES 100 ng/ml THC 50 ng/ml PHENCYCLIDINE 25 ng/ml OPIATES 300 ng/ml COCAINE 300 ng/ml ALL POSITIVES ARE CONSIDERED PRESUMPTIVE POSITIVE CONFIRMATION WILL BE PERFORMED AT PHYSICIAN REQUEST..PROGRESS AND PROCEDURESCourse of Care: 22:00 May 14 2019. Evaluation after observation. (discussed TSH level and pt has notpicked up her Synthroid. 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 Explained that [facility] will deliver her medicine and shereports her case liner is working with them to get her medication. [facility]Pt is concerned about previous Myxedema Coma, currently is not exhibiting any s/s such ascoma, ms Changes, hyponatremia or hypercapnia. VSS. Discussed dx and d/c plan with Dr Ramirez andhe agrees with dx and tx plan and pt is safe to d/c home.). Patient counseled in person regarding the patient's stable condition, test results, diagnosis and need for follow-up. Patient agrees with plan of care. 22:May 14 2019. Disposition: Discharged home in good and improved condition (22:May 14 2019).CLINICAL IMPRESSION Acute urinary tract infection with cystitis and hematuria. 6 Clinical Report - Physicians/Mid Levels 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 Warnings: GENERAL WARNINGS: Return or contact your physician immediately if your condition worsens or changes unexpectedly, if not improving as expected, or if other problems arise. SPECIFICALLY, return if you develop chest pain, fluttering sensation in your chest, lightheadedness, fainting or extreme fatigue. Your Current Medications: Your current home medications have been reviewed. CONTINUE TAKING THE FOLLOWING MEDICATIONS: Gabapentin Oral : 600 mg 3x a day. Levothyroxine has been off it for 1 month, since her inpatient Psych treatment*. Lexapro Oral : 30 mg daily. Methadone HCl Oral : 110 mg daily, dose increased last week. SEROquel Oral : 25 mg 3x a day, last dose May 13 2099. Prescription Medications: Macrobid 100 mg capsule Take 1 capsule twice a day for 7 days -- Dispense 14 capsule. Refills: 0. Substitution permitted. Pharmacy - [address] ; [place], [place] [id number]. . Follow-up: Follow up with your doctor Thursday. Reason for referral: evaluation, treatment and refer to Endocrinology. Summary of care provided to patient. Understanding of the discharge instructions verbalized by patient.(Electronically signed by SHAHNAZ Cabrera 05/14/2019 23:26) Name Value Range Interpretation Code Description Data Miya parisi(s) Supporting Document(s) ID Date Data Source [id number] 05/14/2019 07:40:00 PM [facility] EDWIN Kruger VisitID: [id number] Date: 12:01Pt urine growing E. Coli, d/c on macrobid PO BIDx 7 days, sensitive; Shown to Amairani CHRISTIE [id number], no further intervention required at this time.(Electronically signed by Trina Grady R.N. 05/18/2019 12:01) Name Value Range Interpretation Code Description Data Miya parisi(s) Supporting Document(s) ID Date Data Source [id number] 05/16/2019 11:05:00 AM [facility] [address] [place] [address] PHONE: [phone] FAX: [phone] Name .................. : CHAYA PINEDA Acct Number.................. : [id number] ROOM. ................. : [facility] MR Number ................... : [id number] Stay type ............. : E/R Discharge Date......... ... : 05/14/19 Admit Date .... ..... : 05/14/19 Admit Phys .................... : RICHARD CHRISTIE Date of ....... : 1980 Family Phys ................... : RICHTER SCOT Phone .................. : [phone] Age ................................ : 39 Film# .................. .:[id number] Sex ................................. : F Unsigned transcriptions are preliminary reports and do not represent a medical or legal document CHEST 2 VIEWS [id number] COMPLETE:05/14/19 21:34 JER [id number] Reaso n(s): syncope CHEST X-RAY: 2-VIEWS FINDINGS: The cardiac and mediastinal silhouettes appear normal and the lungs are clear. The bones and soft tissues are normal. The upper abdomen is unremarkable. IMPRESSION: No acute disease identifiable. Electronically Reviewed and Signed By Phillip Rodriguez MD , 05/16/19 11:05, KGG Transcribe Initials: RUDDY , Transcribe Date: 05/15/19 09:18, Dictation Date: Copy for: SUSANA VALENCIA via fax Copy for: EMERGENCY DEPT via modem Copy for: 710 MED REC DISCHARGED Page 1 of 1 Name Value Range Interpretation Code Description Data Miya rce(s) Supporting Document(s) ID Date Data Source [id number] 05/16/2019 08:26:00 AM EST [facility] [address] [place] [address] PHONE: [phone] FAX: [phone] Name ..............: CHAYA PINEDA Acct Number ...........................: [id number] ROOM. ............: [address] Number ............................: [id number] Stay type.........: E/R Discharge Date...............:05/14/19 Admit Date .....: 05/14/19 Admit Phys .............................: RICHARD CHRISTIE Date of ..: 1980 Family Phys ...........................: RICHTER [facility] Phone..............: [phone] Age.................................:39 Film# ...............:[id number] Sex.................................:F Unsigned transcriptions are preliminary reports and [place] [id number] COMPLETE:05/15/19 02:26 [place] [id number] Please See Scanned Results. Name Value Range Interpretation Code Description Data Miya rce(s) Supporting Document(s) ID Date Data Source [id number] 05/14/2019 09:51:00 PM [facility] [address] [place] [address] ---------NAME--------- NUMBER SEX AGE ADMIT DISC. XRAY# F/C TYPE CHAYA PINEDA [id number] F 39 05/14/19 [id number] XBE E/R DATE OF : 1980 M/R# [id number] #: [id number] TR-1B LOCATION: EMERGENCY DEPT TRANSCRIBED: 05/14/19 21:[address] HEAD W/O CONTRAST [id number] COMPLETED:05/14/19 21:34 JER [id number] Reason(s): Altered Sense of Awareness PHYSICIAN: RICHARD NAIDU ========= R A D I O L O G Y R E P O R T PATIENT HISTORY:ALTERED SENSE OF AWARENESS, ACT DOSE- 797.2mGy*cm,VERIFIED 2 IDENTIFIERS, NEG HCG, EST DOSE- 797.1mGy*cm. SENT TO [place] /BRAIN (DICOM Hx)CT Head ( Brain )Ventricles and sulci are normal for age.No significant small vessel ischemic white matter disease noted.There is no evidence for mass, mass effect or midline shift.No abnormal extra-axial fluid collection. No intracranial bleed.The third and fourth ventricles are patent.Basal cisterns are unremarkable.Bony structures are unremarkable.Mastoid air cells are within normal limits.Paranasal sinuses are normal.IMPRESSIONS:No acute intracranial process.If indicated and depending upon review of laboratory and clinical data, MRIexamination or other examination may be of value.While performing the above CT examination, radiation dose reduction wasaccomplished utilizing automated exposure control, adjusting of the mA and kVbased on the patient's body size and/or the use of imperative reconstructivetechniques.Elect ronically Signed By:Tereso Jerome M.D. , RadiologistDate/Time: 05/14/19 21:51 05/14/19.2152.JER.to EMERGENCY via modem Name Value Range Interpretation Code Description Data Miya rce(s) Supporting Document(s) ID Date Data Source [id number] 05/14/2019 09:29:00 PM [facility] Name Value Range Interpretation Code Description Data Miya rce(s) Supporting Document(s) Thyrotropin [Units/volume] in Serum or Plasma by Detec tion limit <= 0.05 mIU/L 255.00 uIU/mL 0.47 - 5.[address] [facility] ID Date Data Source [id number] 05/14/2019 09:07:00 PM [facility] Name Value Range Interpretation Code Description Data Miya rce(s) Supporting Document(s) CBC W/AUTOMATED DIFF [facility] COMPLETE BLOOD COUNT Leukocytes [#/volume] in Blood by Automated count 4.6 10^3/uL 4.2 - [address] [facility] Erythrocytes [#/volume] in Blood by Automated count 3.81 10^6/uL 4. 20 - 5.[address] [facility] Hemoglobin [Mass/volume] in Blood 11.4 g/dL 12.0 - 16.[address] [facility] Hematocrit [Volume Fraction] of Blood by Automated count 35.6 % 3 7.0 - 47.[address] [facility] Erythrocyte mean corpuscular volume [Entitic volume] by Auto mated count 93.4 fL 81.0 - 101 [facility] Erythrocyte mean corpuscular hemoglobin [Entitic mass] by Automated count 29.9 pg 27.0 - 34.0 [facility] Erythrocyte mean corpuscular hemoglobin concentration [Mass/volume] by Automated count 32.0 g/dL 31.0 - 36.0 [facility] Erythrocyte distribution width [Ratio] by Automated count 13.9 % 11.5 - 14.5 [facility] Platelets [#/volume] in Blood by Automated count 120 10^3/uL 150 - [address] [facility] Platelet mean volume [Entitic volume] in Blood by Automated count 8.6 fL 7.4 - 10.4 [facility] Neutrophils/100 leukocytes in Blood by Automated count 58.2 % 37. 0 - 80.0 [facility] Lymphocytes/100 leukocytes in Blood by Manual count 29.2 % 25.0 - 40.0 [facility] Monocytes/100 leukocytes in Blood by Automated count 6.5 % 3.0 - 8.0 [facility] Eosinophils/100 leukocytes in Blood by Automated count 4.4 % 0.0 - 7.0 [facility] Basophils/100 leukocytes in Blood by Automated count 1.3 % 0.0 - 2.5 [facility] %IG 0.4 % 0.0 - 0.0 [facility] 0.0 % 0.0 - 0.0 [facility] al Neutrophils [#/volume] in Blood by Automated count 2.67 10^3/uL 2.00 - 6.90 [facility] Lymphocytes [#/volume] in Blood by Automated count 1.34 10^3/uL 0.60 - 3.40 [facility] Monocytes [#/volume] in Blood by Automated count 0.30 10^3/uL 0.00 - 0.90 [facility] Eosinophils [#/volume] in Blood by Automated count 0.20 10^3/uL 0.00 - 0.70 [facility] Basophils [#/volume] in Blood by Automated count 0.06 10^3/uL 0.00 - 0.20 [facility] #IG 0.02 10^3/uL 0.00 - 0.10 [facility] #NRBC 0.00 10^3/uL 0.00 - 0.00 [facility] MANUAL DIFF SEE BELOW [facility] ital Segmented neutrophils/100 leukocytes in Blood by Manual count 53 % 37 - 80 [facility] %LYMPH 32 % 25 - 40 [facility] al %MONO 8 % 3 - 8 [facility] al %EOS 7 % 0 - 7 [facility] al RBC MORPH NOT INDICATED [facility] spital ID Date Data Source [id number] 05/14/2019 08:56:[address] [facility] Name Value Range Interpretation Code Description Data Miya rce(s) Supporting Document(s) COMPREHENSIVE METABOLIC PANEL [facility] COMPREHENSIVE METABOLIC PANEL Sodium [Moles/volume] in Serum or Plasma 141 mEq/L 134 - 153 [facility] Potassium [Moles/volume] in Serum or Plasma 4.1 mEq/L 3.6 - 5.0 [facility] Chloride [Moles/volume] in Serum or Plasma 103 mEq/L 98 - 107 [facility] Carbon dioxide, total [Moles/volume] in Serum or Plasma 31 MEQ/L 22 - [address] [facility] Glucose [Mass/volume] in Serum or Plasma 84 MG/DL 65 - 110 [facility] BUN 17 MG/DL 7 - 21 [facility] Creatinine [Mass/volume] in Serum or Plasma 1.8 MG/DL 0.7 - 1.[address] [facility] BUN/CREAT 9 8 - 27 [facility] Protein [Mass/volume] in Serum or Plasma 6.7 G/DL 6.3 - 8.2 [facility] Albumin [Mass/volume] in Serum or Plasma 4.6 G/DL 3.9 - 5.0 [facility] Globulin [Mass/volume] in Serum by calculation 2.1 GM/DL 2.4 - 3.[address] [facility] A/G RATIO 2.2 0.8 - 2.0 H [facility] Calcium [Mass/volume] in Serum or Plasma 9.3 MG/DL 8.4 - 10.2 [facility] Bilirubin.total [Mass/volume] in Serum or Plasma <0.7 MG/DL 0.2 - 1.3 [facility] Alkaline phosphatase [Enzymatic activity/volume] in Serum or Plasma 59 U/L 38 - 126 [facility] Aspartate aminotransferase [Enzymatic activity/volume] in Serum or Plasma 21 U/L 5 - 40 [facility] Alanine aminotransferase [Enzymatic activity/volume] in Seru m or Plasma 8 U/L 7 - 56 [facility] Anion gap 3 in Serum or Plasma 7.0 mmol/L 8.0 - 16.[address] [facility] AGE 39 yrs [facility] NON-AA GFR 34 mL/min [facility] AFR AMER GFR 41 mL/min [facility] Male GFR In terprentation 20-49 yrs >60 mL/min Normal 50-59 yrs >56 mL/min Normal 60-69 yrs >49 mL/min Normal 70-79yrs >42 mL/min Normal 80 and above >35 mL/min Normal Female GFR Interpretation 20-39 yrs >60 mL/min Normal 40-49 yrs >58 mL/min Normal 50-59 yrs >51 mL/min Normal 60-69 yrs >45 mL/min Normal 70-79 yrs >39 mL/min Normal 80 and above >32 mL/min Normal ID Date Data Source [id number] 05/14/2019 08:44:[address] [facility] Name Value Range Interpretation Code Description Data Miya rce(s) Supporting Document(s) Prothrombin time (PT) 11.8 SECONDS 11.0 - 15.5 [facility] INR in Platelet poor plasma by Coagulation assay 0.86 0.93 - 1. [address] [facility] aPTT in Blood by Coagulation assay 34.5 SECONDS 24.8 - 36.7 [facility] \\BLDo\\INR INTERPRETATION\\BLDx\\ Therapeutic range for Coumadin and related oral anticoagulants. - International Normalized Ratio (INR): 2.0 - 3.0 for Venous Thrombosis, Pulmonary Embolus, Tissue heart valves, Acute CO Atrial Fibrillation, Valvular heart disease and recurrent Systemic Embolism. - International Normalized Ratio (INR): 2.5 - 3.5 for Mechanical Prosthetic valve. \\BLDo\\PTT INTERPRETATION\\BLDx\\ Critical results for patients not on therapy: >50 seconds Critical results for patients on therapy: >119 seconds Therapeutic range for patients on therapy: 58 - 90 seconds Coag maria e dies from line draws may not be accurate due to Heparin and other interferences. ID Date Data Source [id number] 05/17/2019 07:29:00 PM [facility] Name Value Range Interpretation Code Description Data Miya rce(s) Supporting Document(s) CULTURE URINE [facility] spital _CULTURE URINE_ [place] [address] CLIA# [id number] SEE SCANNED REPORT Specimen site Narrative R [facility] Result: ID Date Data Source [id number] 05/14/2019 08:31:00 PM [facility] Name Value Range Interpretation Code Description Data Miya rce(s) Supporting Document(s) DRUG SCREEN URINE [facility] URINE DRUG SCREEN Amphetamine [Presence] in Urine by Screen method NEGATIVE NORMAL: N EGATIVE [facility] BARBITURATES NEGATIVE NORMAL: NEGATIVE [facility] BENZO NEGATIVE NORMAL: NEGATIVE [facility] COCAINE NEGATIVE NORMAL: NEGATIVE [facility] Tetrahydrocannabinol [Presence] in Urine PRESUMP POS NORMAL: NEGATIVE [facility] OPIATES NEGATIVE NORMAL: NEGATIVE [facility] Phencyclidine [Presence] in Urine by Screen method NEGATIVE NOR MAL: NEGATIVE [facility] \\BLDo\\URINE DRUG SCR EEN INTERPRETATION\\BLDx\\ THE CUTOFFF LEVELS FOR DETECTION ARE FOLLOWS: AMPHETAMINES 1000 ng/ml BARBITUARATES 200 ng/ml BENZODIAZEPINES 100 ng/ml THC 50 ng/ml PHENCYCLIDINE 25 ng/ml OPIATES 300 ng/ml COCAINE 300 ng/ml ALL POSITIVES ARE CONSIDERED PRESUMPTIVE POSITIVE CONFIRMATION WILL BE PERFORMED AT PHYSICIAN REQUEST. ID Date Data Source [id number] 05/14/2019 08:24:[address] [facility] Name Value Range Interpretation Code Description Data Miya rce(s) Supporting Document(s) HCG URINE QUAL NEGATIVE NORMAL: NEGATIVE [facility] HCG URINE QL REENTER NEGATIVE NORMAL: NEGATIVE [facility] { KIT LOT # [id number] ){ KIT EXP DATE 06/28/20 ){ PROCEDURAL CONTROL VALID ) ID Date Data Source [id number] 05/14/2019 08:23:[address] [facility] Name Value Range Interpretation Code Description Data Miya rce(s) Supporting Document(s) URINALYSIS [facility] URINALYSIS SOURCE Clean Catch [facility] ital COLOR yellow NORMAL: Yellow [facility] CLARITY clear NORMAL: Clear [facility] Specific gravity of Urine by Test strip 1.015 1.001 - 1.030 [facility] pH 6 5 - 9 [facility] Glucose [Mass/volume] in Urine by Test strip NORM NORMAL: Negat [facility] Bilirubin.total [Presence] in Urine by Test strip NEG NORMAL: Negative [facility] Ketones [Presence] in Urine by Test strip NEG NORMAL: Negative [facility] Protein [Mass/volume] in Urine by Test strip NEG NORMAL: Negat [facility] Nitrite [Presence] in Urine by Test strip NEG NORMAL: Negative [facility] BLOOD NEG NORMAL: Negative [facility] Leukocyte esterase [Presence] in Urine by Test strip 100 ZEESHAN L: Negative [facility] Urobilinogen [Mass/volume] in Urine by Test strip NOR less hannah n 1.0 mg/dL [facility] MICROSCOPIC See Below [facility] ital WBC 5 - 7 NORMAL: NONE SEEN A [facility] Erythrocytes [#/volume] in Urine by Test strip 0 - 1 NORMAL: NON E SEEN [facility] EPITHELIAL MODERATE NORMAL: NONE SEEN A [facility] Bacteria [Presence] in Urine sediment by Light microscopy 2+ MOD NORMAL: NONE SEEN A [facility] Procedure Social History Code Duration Value Status Description Data Source(s ) Smoking 05/07/2020 12:00:00 AM EST Unknown if ever smoked comp leted Unknown if ever smoked [facility] Smoking 05/09/2019 12:00:00 AM EST Unknown if ever smoked comp leted Unknown if ever smoked [facility] ([facility]) Smoking 05/04/2019 12:00:00 AM EST Unknown if ever smoked comp leted Unknown if ever smoked [facility] ([facility]) Smoking 04/25/2019 12:00:00 AM EST Unknown if ever smoked comp leted Unknown if ever smoked [facility] ([facility]) Vital Signs ID Date Data Source UNK Name Value Range Interpretation Code Description Data Source(s) Body weight 3814 [oz_av] 3814 [oz_av] DAIANA ([facility]) Systolic blood pressure 101 mm[Hg] 101 mm[Hg] A [facility]) Body mass index (BMI) [Ratio] 42.2 kg/m2 42.2 k g/m2 DAIANA ([facility]) Body height 63 [in_i] 63 [in_i] DAIANA ([facility]) Diastolic blood pressure 72 mm[Hg] 72 mm[Hg] DAIANA ([facility]) Body weight 3251.04 [oz_av] 3251.04 [oz_av] ATH VAMSI ([facility]) Systolic blood pressure 102 mm[Hg] 102 mm[Hg] A [facility]) Body height 63 [in_i] 63 [in_i] DAIANA ([facility]) Diastolic blood pressure 79 mm[Hg] 79 mm[Hg] DAIANA ([facility]) Body weight 3251.04 [oz_av] 3251.04 [oz_av] ATH [facility] ([facility]) Systolic blood pressure 102 mm[Hg] 102 mm[Hg] A [facility] ([facility]) Body height 63 [in_i] 63 [in_i] DAIANA ([facility]) Diastolic blood pressure 79 mm[Hg] 79 mm[Hg] DAIANA ([facility]) Patient Treatment Plan of Care Planned Activity Planned Date Details Description Data Source (s) Trazodone Hydrochloride 100 MG Oral Tablet DAIANA ([facility]) quetiapine 50 MG Oral Tablet DAIANA ([facility]) quetiapine 100 MG Oral Tablet [facility] ([facility]) Prednisone 10 MG Oral Tablet [facility]IANA ([facility]) liothyronine sodium 0.005 MG Oral Tablet [facility]IANA ([facility]) Levothyroxine Sodium 0.1 MG Oral Tablet DAIANA ([facility]) gabapentin 600 MG Oral Tablet [facility]IANA ([facility]) gabapentin 300 MG Oral Capsule DAIANA ([facility]) doxycycline hyclate 100 MG Oral Tablet DAIANA ([facility]) 24 HR Bupropion Hydrochloride 150 MG Extended Release Oral Tablet DAIANA ([facility])
[2020-05-21 13:14] LABS: HEMATOCRIT 40.4 % (36.0-47.0); HEMOGLOBIN 12.7 g/dl (12.0-15.5); MEAN CORPUSCULAR HGB CONC 31.4 g/dl (32.0-36.5); MEAN CORPUSCULAR VOLUME 95.3 fl (80.0-96.0); PLATELET COUNT, AUTOMATED 136 10^3/uL (150-450); RED BLOOD COUNT 4.24 10^6/uL (4.00-5.40); WHITE BLOOD COUNT 5.2 10^3/uL (4.0-10.0)
[2020-05-21 13:45] LABS: AMPHETAMINES LEVEL URINE NEGATIVE (NEGATIVE); BARBITURATES URINE NEGATIVE (NEGATIVE); BENZODIAZEPINES URINE NEGATIVE (NEGATIVE); CANNABINOIDS URINE NEGATIVE (NEGATIVE); COCAINE METABOLITE URINE NEGATIVE (NEGATIVE); METHADONE URINE POSITIVE (NEGATIVE); OPIATES URINE NEGATIVE (NEGATIVE); PHENCYCLIDINE URINE NEGATIVE (NEGATIVE)
[2020-05-21 13:52] LABS: HCG, SERUM QUALITATIVE NEGATIVE (NEGATIVE)
[2020-05-21 13:56] LABS: ACETAMINOPHEN LEVEL < 2.0 UG/ML (10.0-30.0); ALBUMIN 4.2 GM/DL (3.2-5.2); ALT/SGPT 21 U/L (12-78); BILIRUBIN,DIRECT 0.1 MG/DL (0.0-0.2); BILIRUBIN,TOTAL 0.3 MG/DL (0.2-1.0); BLOOD UREA NITROGEN 7 MG/DL (7-18); CALCIUM LEVEL 9.1 MG/DL (8.5-10.1); CARBON DIOXIDE LEVEL 28 MEQ/L (21-32); CHLORIDE LEVEL 105 MEQ/L (98-107); CREATININE FOR GFR 1.53 MG/DL (0.55-1.30); ETHYL ALCOHOL (ETHANOL) < 0.003 % (0.000-0.010); GLOMERULAR FILTRATION RATE 40.4 (>60); GLUCOSE, FASTING 92 MG/DL (70-100); POTASSIUM SERUM 4.5 MEQ/L (3.5-5.1); SALICYLATE LEVEL 3.2 MG/DL (5.0-30.0); SODIUM LEVEL 139 MEQ/L (136-145); TOTAL PROTEIN 7.6 GM/DL (6.4-8.2)
--- OUTSIDE RECORDS SUMMARY | 2020-05-21 14:40 | CCD ---
Author Author [facility] Organization [facility] Address Unknown Phone Unavailable Care Team Providers Care Combine Driver Name Role Phone MCELHERAN, GEOFF PA Unavailable [...] MCELHERAN, GEOFF PA Unavailable Unavailable Shena Taylor ASIC ENGINEER ASIC ENGINEER Unavailable Unavailable MCELHERAN, GEOFF PA Unavailable Unavailable MCELHERAN, GEOFF PA Unavailable Unavailable MCELHERAN, GEOFF PA Unavailable Unavailable MCELHERAN, GEOFF PA Unavailable Unavailable MCELHERAN, GEOFF PA Unavailable Unavailable MCELHERAN, GEOFF PA Unavailable Unavailable MCELHERAN, GEOFF PA Unavailable Unavailable MCELHERAN, GEOFF PA Unavailable Unavailable MCELHERAN, GEOFF PA Unavailable Unavailable MCELHERAN, GEOFF PA Unavailable Unavailable MCELAN, GEOFF PA Unavailable Unavailable MCELHERAN, GEOFF PA [...] Unavailable Christiane Alvarenga Unavailable Tanvi Mckeon Unavailable Damian Taylor Shena ASIC ENGINEER-BC Unavailable Unavailable Taylor, F Shena ASIC ENGINEER-BC Unavailable Unavailable Taylor, F Shena ASIC ENGINEER-BC Unavailable Unavailable Taylor, F Shena ASIC ENGINEER-BC Unavailable Unavailable Taylor, F Shena ASIC ENGINEER-BC Unavailable Unavailable Taylor, F Shena ASIC ENGINEER-BC Unavailable Unavailable Taylor, F Shena ASIC ENGINEER-BC Unavailable Unavailable Taylor, F Shena ASIC ENGINEER-BC Unavailable Unavailable Taylor, F Shena ASIC ENGINEER-BC Unavailable Unavailable Taylor, F Shena ASIC ENGINEER-BC Unavailable Unavailable Taylor, F Shena ASIC ENGINEER-BC Unavailable Unavailable Taylor, F Shena ASIC ENGINEER-BC Unavailable Unavailable Taylor, F Shena ASIC ENGINEER-BC Unavailable Unavailable Taylor, F Shena ASIC ENGINEER-BC Unavailable Unavailable Taylor, F Shena ASIC ENGINEER-BC Unavailable Unavailable Taylor, F Shena ASIC ENGINEER-BC Unavailable Unavailable Taylor, F Shena ASIC ENGINEER-BC Unavailable Unavailable Taylor, F Shena ASIC ENGINEER-BC Unavailable Unavailable Taylor, F Shena ASIC ENGINEER-BC Unavailable Unavailable Taylor, F Shena ASIC ENGINEER-BC Unavailable Unavailable Taylor, F Shena ASIC ENGINEER-BC Unavailable Unavailable Taylor, F Shena ASIC ENGINEER-BC Unavailable Unavailable Kinza Richter MD Unavailable Unavailable [...] Ariella PA Unavailable Unavailable Presley, A Re ASIC ENGINEER Unavailable Unavailable Presley, A Re ASIC ENGINEER Unavailable Unavailable Presley, A Re ASIC ENGINEER Unavailable Unavailable Presley, A Re ASIC ENGINEER Unavailable Unavailable Presley, A Re ASIC ENGINEER Unavailable Unavailable Presley, A Re ASIC ENGINEER Unavailable Unavailable Presley, A Re ASIC ENGINEER Unavailable Unavailable [place], A Er ASIC ENGINEER Unavailable Unavailable [place], A Re ASIC ENGINEER Unavailable Unavailable [place], A Re ASIC ENGINEER Unavailable Unavailable [place], A Re ASIC ENGINEER Unavailable Unavailable [place], A Re ASIC ENGINEER Unavailable Unavailable [place], A Re ASIC ENGINEER Unavailable Unavailable [place], A Re ASIC ENGINEER Unavailable Unavailable [place], A Re ASIC ENGINEER Unavailable Unavailable [place], A Re ASIC ENGINEER Unavailable Unavailable [place], A Re ASIC ENGINEER Unavailable Unavailable [place], A Re ASIC ENGINEER Unavailable Unavailable [place], A Re ASIC ENGINEER Unavailable Unavailable [place], A Re ASIC ENGINEER Unavailable Unavailable [place], A Re ASIC ENGINEER Unavailable Unavailable [place], A Re ASIC ENGINEER Unavailable Unavailable Presley, A Re ASIC ENGINEER Unavailable Unavailable [place], A Re ASIC ENGINEER Unavailable Unavailable [place], A Re ASIC ENGINEER Unavailable Unavailable Presley, A Re ASIC ENGINEER Unavailable Unavailable [place], A Re ASIC ENGINEER Unavailable Unavailable [place], A Re ASIC ENGINEER Unavailable Unavailable Radha Hurst MD Unavailable Unavailable [...] Hurst MD Unavailable Unavailable DAREK, H HARMAN COMMERCIAL SHEET METAL FOREMAN Unavailable Unavailable DAREK, H HARMAN COMMERCIAL SHEET METAL FOREMAN Unavailable Unavailable DAREK, H HARMAN COMMERCIAL SHEET METAL FOREMAN Unavailable Unavailable DAREK, H HARMAN COMMERCIAL SHEET METAL FOREMAN Unavailable Unavailable DAREK, H HARMAN COMMERCIAL SHEET METAL FOREMAN Unavailable Unavailable DAREK, H HARMAN COMMERCIAL SHEET METAL FOREMAN Unavailable Unavailable DAREK, H HARMAN COMMERCIAL SHEET METAL FOREMAN Unavailable Unavailable Jesus Chely Unavailable Presley, Re ASIC ENGINEER ASIC ENGINEER Unavailable Unavailable Presley, A Re ASIC ENGINEER Unavailable Unavailable Presley, A Re ASIC ENGINEER Unavailable Unavailable Presley, A Re ASIC ENGINEER Unavailable Unavailable Presley, A Re ASIC ENGINEER Unavailable Unavailable Presley, A Re ASIC ENGINEER Unavailable Unavailable Presley, A Re ASIC ENGINEER Unavailable Unavailable Presley, A Re ASIC ENGINEER Unavailable Unavailable Presley, A Re ASIC ENGINEER Unavailable Unavailable [place]ley, A Re ASIC ENGINEER Unavailable Unavailable Presley, A Re ASIC ENGINEER Unavailable Unavailable Presley, A Re ASIC ENGINEER Unavailable Unavailable Presley, A Re ASIC ENGINEER Unavailable Unavailable Presley, A Re ASIC ENGINEER Unavailable Unavailable Presley, A Re ASIC ENGINEER Unavailable Unavailable Presley, A Re ASIC ENGINEER Unavailable Unavailable Presley, A Re ASIC ENGINEER Unavailable Unavailable Presley, A Re ASIC ENGINEER Unavailable Unavailable Presley, A Re ASIC ENGINEER Unavailable Unavailable Presley, A Re ASIC ENGINEER Unavailable Unavailable Presley, A Re ASIC ENGINEER Unavailable Unavailable Presley, A Re ASIC ENGINEER Unavailable Unavailable Presley, A Re ASIC ENGINEER Unavailable Unavailable Presley, A Re ASIC ENGINEER Unavailable Unavailable Prseley, A Re ASIC ENGINEER Unavailable Unavailable Presley, A Re ASIC ENGINEER Unavailable Unavailable Presley, A Re ASIC ENGINEER Unavailable Unavailable Presley, A Re ASIC ENGINEER Unavailable Unavailable Presley, A Re ASIC ENGINEER Unavailable Unavailable RICHARD, F CLAUDIA DO Unavailable [...] is protected by Article 27-F of the [place] State Public Health law. If you continue you may have access to information: Regarding HIV / AIDS; Provided by facilities licensed or operated by the [facility] Office of Mental Health; or Provided by the [facility] Office for People With Developmental Disabilities. If such information is present, then the following [facility] mandated warning applies: This information has [...] law may result in a fine or skilled nursing sentence or both. A general authorization for the release of medical or other information is NOT sufficient authorization for further disc losure. Allergies and Adverse Reactions Type Description Substance Reaction Status Data Source(s ) Propensity to adverse reactions to substance nkda 24 HR Bupropion Hydrochloride 150 MG Extended Release Oral Tablet Active [facility] ([facility]) Allergy to substance Allergy to substance Allergy to substance [facility] ([facility]) Encounters Encounter Providers Location Date Indications Data Source(s ) Outpatient 08/21/2020 12:00:00 AM [facility] Outpatient 08/21/2020 12:00:00 AM [facility] Extended Individual Psychotherapy - 45 min Attender: Bharti Mckeon [facility] Correction 05/07/2020 09:30:00 AM EST - 05/07/2020 09:30:00 AM EST [facility] ([facility]) Attender: Tanvi Mckeon 05/07/2020 12:00:00 AM EST [facility] ([facility]) ALMA Johnson: [address] [place] [address], Ph. Attender: Re CHONG [facility] Medical 04/27/2020 12:00:00 AM EST [facility] ([facility]) Outpatient Attender: ARLETTE CHONG 02/28/2020 09:05:01 A M EST [facility] ANGELA JohnsonBC: [address] [place] [address], Ph. Attender: Re CHONG [facility] Medical 02/28/2020 12:00:00 AM EST [facility] ([facility]) ARLETTE Johnson-: [address] [place] [address], Ph. Attender: Re CHONG [facility] Medical 02/28/2020 12:00:00 AM EST [facility] ([facility]) Outpatient Attender: ARLETTE MARQUIS 12/21/2019 12:02:30 A M EDT [facility] Outpatient Attender: ARLETTE MARQUIS 12/20/2019 10:54:01 A M EDT [facility] Outpatient Attender: ARLETTE MARQUIS 12/20/2019 12:02:15 A M EDT [facility] Outpatient Attender: ARLETTE MARQUIS 12/19/2019 10:41:01 A M EDT [facility] Outpatient Attender: Re CHONG FP 12/11/2019 03:1 4:02 PM EDT [facility] Outpatient Attender: ARLETTE MARQUIS 12/11/2019 03:14:00 P M EDT [facility] Outpatient Attender: ARLETTE MARQUIS 12/11/2019 03:13:02 P M EDT [facility] Outpatient Attender: Re MARQUIS 12/11/2019 03:1 3:01 PM EDT [facility] Outpatient Attender: ARLETTE MARQUIS 10/25/2019 09:04:01 A M EDT [facility] Outpatient Attender: ARLETTE MARQUIS 10/21/2019 01:47:01 P M EDT [facility] Outpatient Attender: ARLETTE MARQUIS 10/18/2019 08:29:00 A M EDT [facility] Outpatient Attender: Re MARQUIS 10/11/2019 03:5 3:01 PM EDT [facility] Outpatient Attender: ARLETTE MARQUIS 10/11/2019 12:02:08 A M EDT [facility] Outpatient Attender: ARLETTE MARQUIS 10/10/2019 10:33:00 A M EDT [facility] Outpatient Attender: Ariella CHRISTIE Physical Therapy 02:00:00 PM EDT [facility] ([facility]) Outpatient Attender: ARLETTE Sherwood ASIC ENGINEER FP 09/22/2019 12:02:15 A M EDT [facility] Outpatient Attender: ARLETTE LARSENP FP 09/21/2019 11:06:01 A M EDT [facility] Outpatient Attender: ARLETTE LARSENP FP 09/21/2019 11:05:01 AM EDT [facility] Outpatient Attender: GEOFF CHRISTIE Physical Therapy 09/21/2019 09:00:00 AM EDT [facility] ([facility]) Outpatient Referrer: GEOFF [...] ARLETTE CHONG FP 09/13/2019 07:55:21 PM EDT [facility] Outpatient Attender: Shena CHONG-BC FP 09/13/2019 10: 03:02 AM EDT [facility] Outpatient Attender: ARLETTE CHONG FP 09/10/2019 12:02:09 AM EDT [facility] Outpatient Attender: ARLETTE CHONG FP 09/09/2019 11:34:01 AM EDT [facility] Outpatient Attender: ARLETTE CHONG FP 09/05/2019 12:02:[address] [facility] Outpatient 08/26/2019 05:17:00 AM EDT [facility] Imaging Outpatient Attender: ARLETTE CHONG FP 08/23/2019 03:05:02 PM EDT [facility] OFFICE OUTPATIENT NEW 30 MINUTES Attender: GEOFF CHRISTIE Physical Therapy 08/23/2019 01:00:00 PM EDT [facility] ([facility]) Outpatient Attender: ARLETTE CHONG FP 08/19/2019 04:36:00 PM EDT [facility] Outpatient Attender: Shena MILLERBC FP 08/19/2019 04: 35:02 PM EDT [facility] Outpatient Attender: ARLETTE CHONG FP 08/19/2019 03:55:00 PM EDT [facility] Health Outpatient Attender: ARLETTE CHONG FP 08/18/2019 09:51:01 AM EDT [facility] Health Outpatient Attender: Shena MILLERBC FP 08/15/2019 12: 03:01 PM EDT [facility] Health Outpatient Attender: ARLETTE CHONG FP 08/15/2019 09:44:01 AM EDT [facility] Outpatient Attender: Shena MARQUZE FP 08/10/2019 09: 42:02 AM EDT [facility] Outpatient Attender: ARLETTE CHONG FP 08/09/2019 01:16:00 PM EDT [facility] Outpatient Attender: Shena MILLERBC FP 08/05/2019 09: 32:00 AM EDT [facility] Outpatient Attender: ARLETTE CHONG FP 08/05/2019 08:43:[address] [facility] Outpatient 07/23/2019 07:14:00 AM EDT [facility] Radiology Imaging Outpatient Attender: Shena MILLERBC FP 07/06/2019 09: 09:01 AM EDT [facility] Outpatient Referrer: Radha Hurst MD 06/13/2019 12:00:00 AM EDT [facility] Outpatient Attender: ARLETTE MARQUIS 05/27/2019 02:46:00 PM [facility] Outpatient Attender: ARLETTE MARQUIS 05/20/2019 08:02:03 PM [facility] Outpatient 05/14/2019 07:55:00 PM [facility] Emergency Attender: CLAUDIA RAMIREZ DOConsultant: Karl Richter MD 05/14/2019 07:40:00 PM EST - 05/14/2019 10:59:00 PM [facility] Patient discharged. Outpatient Attender: Shena MARQUEZ FP 05/10/2019 10: 03:01 AM [facility] Brief Individual Psychotherapy - 30 min Attender: Chely hills [facility] Correction 05/09/2019 01:00:00 AM EST - 05/09/2019 01:00:00 AM EST [facility] ([facility]) Attender: Chely Lee 05/09/2019 12:00:00 AM EST [facility] ([facility]) Outpatient Attender: Shena MARQUEZ FP 05/06/2019 09: 40:01 AM [facility] Outpatient Attender: ARLETTE MARQUIS 05/04/2019 02:39:00 PM [facility] Outpatient Attender: HARMAN GARCIA NP [facility] Real boggs 05/04/2019 09:30:00 AM EST - 05/04/2019 09:30:00 AM EST [facility] ([facility]) Attender: HARMAN GARCIA NP 05/04/2019 12:00:00 AM EST [facility] ([facility]) Outpatient 05/01/2019 05:55:00 PM [facility] Imaging Outpatient Attender: Shena MARQUIS 04/25/2019 08: 47:02 AM [facility] Outpatient Attender: ARLETTE MARQUIS 04/25/2019 08:43:01 AM [facility] Brief Individual Psychotherapy - 30 min Attender: Christiane herzog [facility] Correction 04/25/2019 08:00:00 AM EST - 04/25/2019 08:00:00 AM EST [facility] ([facility]) Attender: Christiane Alvarenga 04/25/2019 12:00:00 AM EST [facility] ([facility]) [facility]: [facility] 04/19/2019 01:52:00 PM [facility] Outpatient Attender[facility] 03/28/2019 02:43:00 PM [facility] Outpatient Attender: Shena Brandon LARSENP-BC 03/25/2019 02: 47:01 PM [facility] Outpatient Attender: [facility]E [facility] 03/25/2019 11:09:01 AM [facility] Outpatient Attender: Shena Brandon ASIC ENGINEER-BC 03/24/2019 10: 21:03 AM [facility] Medications Medication Brand Name Start Date Product Form Dose Route Admi nistrative Instructions Pharmacy Instructions Status Indications Reaction Description Data Source(s) gabapentin 800 MG Oral Tablet Gabapentin 08/23/2019 12:00:00 AM EDT ORAL active [facility] ([facility]) 150 mcg 08/18/2019 12:00:00 AM EDT tablet 10 TAKE ONE TABLET BY MOUTH EVERY DAY TAKE ONE TABLET BY MOUTH EVERY DAY SOLD: 08/18/2019 [facility] quetiapine 25 MG Oral Tablet [Seroquel] Seroquel 05/24/2019 12: 00:00 AM EST 25 mg completed [id number] Seroquel 05/24/2019 30 25 mg tablet 57246 [id number] Harman Garcia [id number] Nurse Practitioner [facility] ([facility]) Trazodone Hydrochloride 150 MG Oral Tablet trazodone 04/20 12:00:00 AM EST 150 mg completed [id number] trazodone 04/20/2019 150 mg tablet 93711 049823 [id number] Harman Garcia [id number] Nurse Beulah martinez [facility] ([facility]) gabapentin 600 MG Oral Tablet gabapentin 04/20/2019 12:00:00 AM EST 600 mg completed [id number] gabapentin 04/20/2019 600 m g tablet 60124 [id number] Harman Garcia [id number] Nurse Practitioner [facility] ([facility]) Propranolol Hydrochloride 10 MG Oral Tablet propranolol 04/20/2019 12:00:00 AM EST 10 mg completed [id number] propranolol 0 10 mg tablet 76385 [id number] Harman Garcia [id number] Nurse Beulah maciaser [facility] ([facility]) Escitalopram 10 MG Oral Tablet [Lexapro] Lexapro 03/22/2019 12 :00:00 AM EST 10 mg by mouth completed [id number] Lexapro by mouth [id number] 03/22/2019 05/21/2019 every morning 30 10 mg tablet 96062 706032 [id number] Harman Garcia [id number] Nurse Practitioner [facility] ([facility]) quetiapine 25 MG Oral Tablet [Seroquel] Seroquel 03/22/2019 12: 00:00 AM EST 25 mg by mouth completed [id number] Seroquel by mouth [id number] 03/22/2019 05/21/2019 three times a day 30 25 mg tablet 62073 [id number] Harman Garcia [id number] Nurse Practitioner [facility] ([facility]) Propranolol Hydrochloride 10 MG Oral Tablet propranolol 02/22/2019 12:00:00 AM EST 10 mg by mouth completed [id number] propranolol by [facility] [id number] 02/22/2019 03/24/2019 twice a day 30 10 mg tablet 17759 [id number] 14 [id number] Harman Garcia [id number] Psychiatric/Mental Health [facility] ([facility]) Propranolol Hydrochloride 10 MG Oral Tablet propranolol 02/22/2019 12:00:00 AM EST 10 mg by mouth completed [id number] propranolol by [facility] [id number] 02/22/2019 03/24/2019 twice a day 30 10 mg tablet 75072 [id number] 14 [id number] Harman Garcia [id number] Nurse Practitioner [facility] ([facility]) gabapentin 600 MG Oral Tablet gabapentin 02/08/2019 12:00:00 AM EST 600 mg by mouth completed [id number] gabapentin by mouth [id number] 201803/24/2019 three times a day 30 600 mg tablet 53217 922797 [id number] Harman Garcia [id number] Psychiatric/Mental Health [facility] ([facility]) Clonidine Hydrochloride 0.3 MG Oral Tablet clonidine HCl 02/08/2019 12:00:00 AM EST 0.3 mg by mouth completed [id number] clonidine HCl by mouth [id number] 02/08/2019 04/09/2019 twice a day 30 0.3 mg tablet 28226 838323 1 [id number] Harman Garcia [id number] Psych[facility]Mental [facility] ([facility]) gabapentin 600 MG Oral Tablet gabapentin 02/08/2019 12:00:00 AM EST 600 mg by mouth completed [id number] gabapentin by mouth [id number] 201803/24/2019 three times a day 30 600 mg tablet 11939 122346 [id number] Harman Garcia [id number] Nurse Practitioner [facility] ([facility]) Clonidine Hydrochloride 0.3 MG Oral Tablet clonidine HCl 02/08/2019 12:00:00 AM EST 0.3 mg by mouth completed [id number] clonidine HCl by mouth [id number] 02/08/2019 04/09/2019 twice a day 30 0.3 mg tablet 76360 395173 1 [id number] Harman Garcia [id number] Nurse Practitioner [facility] ([facility]) Escitalopram 20 MG Oral Tablet [Lexapro] Lexapro 02/08/2019 12 :00:00 AM EST 20 mg completed [id number] Lexapro 02/08/201903/06 once a day 30 20 mg tablet 06280 390119 [id number] Harman Garcia [id number] Psychiatric/Mental Health [facility] ([facility]) Escitalopram 20 MG Oral Tablet [Lexapro] Lexapro 02/08/2019 12 :00:00 AM EST 20 mg completed [id number] Lexapro 02/08/201903/06 once a day 30 20 mg tablet 10380 809936 [id number] Harman Garcia [id number] Nurse Practitioner [facility] ([facility]) Levothyroxine Sodium 0.1 MG Oral Tablet levothyroxine 100 mcg tablet TAKE TWO TABLETS BY MOUTH @6AM levothyroxine 100 mcg tablet TAKE TWO TA BLETS BY MOUTH @6AM completed levothyroxine so dium 0.1 MG Oral Tablet [facility] ([facility]) 24 HR Bupropion Hydrochloride 150 MG Ext ended Release Oral Tablet bupropion HCl XL 150 mg 24 hr tablet, extended release bupropion HCl XL 150 mg 24 hr tablet, extended release completed 24 HR bupropion hydrochloride 150 MG Extended Release Oral Tablet [facility]NA ([facility]) gabapentin 300 MG Oral Capsule gabapenti n 300 mg capsule TAKE TWO CAPSULES BY MOUTH THREE TIMES DAILY gabapentin 300 mg capsule TAKE TWO CAPSU LES BY MOUTH THREE TIMES DAILY completed adi pentin 300 MG Oral Capsule [place] ([facility]) Trazodone Hydrochloride 100 MG Oral Tablet trazodone 1 00 mg tablet trazodone 100 mg tablet completed trazodone h ydrochloride 100 MG Oral Tablet [place] ([facility]) Prednisone 10 MG Oral Tablet prednisone [...] completed p rednisone 10 MG Oral Tablet [place] ([facility]) quetiapine 100 MG Oral Tablet quetiapine 100 mg tablet TAKE ONE TABLET BY MOUTH AT BEDTIME quetiapine 100 mg tablet TAKE ONE TABLET BY MOUTH AT BEDTIME completed quetiapine 100 MG Oral Ta blet [place] ([facility]) doxycycline hyclate 100 MG Oral Tablet d oxycycline hyclate 100 mg tablet TAKE ONE TABLET BY MOUTH TWICE DAILY FOR mrsa doxycycline hyclate 100 mg tablet TAKE ONE TABLET BY MOUTH TWICE DAILY FOR mrsa completed doxycycline hyclate 100 MG Oral Tablet [facility] ([facility]) liothyronine sodium 0.005 MG Oral Tablet liothyronine 5 mcg tablet liothyronine 5 mcg tablet completed liothyron ine sodium 0.005 MG Oral Tablet [place] ([facility]) quetiapine 50 MG Oral Tablet quetiapine 50 mg tablet TAKE ONE TABLET BY MOUTH TWICE DAILY quetiapine 50 mg tablet TAKE ONE TABLET BY MOUTH TWICE DAILY completed quetiapine 50 MG Ora l Tablet [facility] ([facility]) gabapentin 600 MG Oral Tablet gabapentin 600 mg tablet TAKE ONE TABLET BY MOUTH THREE TIMES DAILY gabapentin 600 mg tablet TAKE ONE TABLET BY MOUTH THREE TIMES DAILY completed gabapentin 600 M G Oral Tablet [facility] ([facility]) Insurance Providers Payer name Policy type / Coverage type Policy ID Covered constitution party ID Covered constitution party's relationship to francois Policy Francois Plan Information BERNARD [id number] SP [id number] BERNARD I [id number] Self [id number] [place] O [id number] S [id number] Managed Care Bernard P [id number] S [id number] Medicaid S [id number] S [id number] Medicaid S [id number] S [id number] [place] XIX MAN -PHYSICIAN [id number] 1 [id number] MEDICAID -PHYSICIAN [id number] [place] -OP [id number] 18 [id number] MEDICAID -O/P EMERGENCY ROOM [id number] MEDICAID [id number] SP [id number] Medicaid P [id number] S [id number] BERNARD [id number] SP [id number] UNHC COMMUNITY PLAN MCDO [id number] SP [id number] [facility] [id number] SP [id number] Managed Care - [facility] Community Plan P [id number] S [id number] [facility](MCAID) O [id number] S [id number] [facility] [id number] SP [id number] [facility](MCAID) O [id number] S [id number] [facility] COMMUNITY PLAN [facility] [id number] SP [id number] SELF PAY ONLY [id number] SP [id number] Medicaid [place] Medigap Part B [id number] Self [id number] [facility] Elena Health Maintenance Organization (HMO) [id number] Self [id number] [employer] COMMUNITY PLAN [facility] [id number] SP [id number] Managed Care - Community Plan [facility] P [id number] S [id number] PENDING [employer] INSURANCE [id number] SP [id number] Medicaid [place] [id number] Self [id number] SELF PAY ONLY [id number] SP [id number] Medicaid [place] Medicaid [id number] Self [id number] [facility] 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 [id number] SP [id number] BLUE CROSS BLUE SHIELD-O/P [id number] BLUE CROSS BLUE SHIELD-PHYSICIAN [id number] MEDICAID [id number] SP [id number] UNHC COMMUNITY PLAN MCDHMO [id number] SP [id number] BLUE CROSS HIGGINS PLAN [id number] SP [id number] HMO BLUE [id number] SP [id number] O BLUE [id number] SP [id number] Problems, Conditions, and Diagnoses Code Display Name Description Problem Type Effective Dates Data Source(s) Z72.0 Tobacco use Tobacco Use Disorder, Mild Condition 0 05/07/2020 12:00:00 AM EST [facility] ([facility]) F12.10 Cannabis abuse, uncomplicated Cannabis Use Disorder, M ild Condition 05/07/2020 12:00:00 AM EST [facility] ([facility]) F11.10 Opioid abuse, uncomplicated Opioid Use Disorder, Mild Condition 05/07/2020 12:00:00 AM EST [facility] ([facility]) F10.10 Alcohol abuse, uncomplicated Alcohol Use Disorder, Mil d Condition 05/07/2020 12:00:00 AM EST [facility] ([facility]) F32.9 Major depressive disorder, single episod e, unspecified Unspecified depressive Disorder Condition 05/07/2020 12:00:00 AM EST [facility] ([facility]) 244.9 Hypothyroidism Hypothyroidism 08/19/2019 04:34: 05 PM EDT [facility] M84.472A Pathological fracture, left ankle, initi al encounter for fracture Pathological fracture, left ankle, initial encounter for fracture 08/19/2019 04:34:05 PM EDT [facility] [id number] Pathological fracture - ankle and/or krystal t Pathological Fracture - Ankle And/or Foot Problem 08/19/2019 12:00:00 AM EDT [facility] ([facility]) [id number] Pathological fracture - ankle and/or krystal t Pathological Fracture - Ankle And/or Foot Problem 08/19/2019 12:00:00 AM EDT [place] ([facility]) F10.20 Alcohol dependence, uncomplicated Alcohol Use Di sorder, Moderate Condition 05/09/2019 12:00:00 AM EST [facility] ([facility]) F43.8 Other reactions to severe stress Other S 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 05/09/2019 12:00:00 AM EST [facility] ([facility]) F33.1 Major depressive disorder, recurrent, mo derate Major Depressive Disorder, Recurrent episode, Moderate Condition 05/09/2019 12:00:00 AM EST [facility] ([facility]) W18201 Nicotine dependence, cigarettes, uncompl icated Nicotine dependence, cigarettes, uncomplicated Diagnosis 05/14/2019 07:40:00 PM [facility] N3001 Acute cystitis with hematuria Acute cystitis with lj turia Diagnosis 05/14/2019 07:40:00 PM [facility] R55 Syncope and collapse Syncope and collapse Diagnosis 05/14/2019 07:40:00 PM [facility] Surgeries/Procedures Procedure Description Date Indications Data Source(s) Extended Individual Psychotherapy - 45 min 05/07/2020 12:00:00 AM EST - 05/07/2020 12:00:00 AM EST [facility] ([facility]) Extended Individual Psychotherapy - 45 min 1 12:00:00 AM EST [facility] ([facility]) APPLICATION SHORT LEG CAST BELOW KNEE-TOE 09/27/2019 1 2:00:00 AM EDT [facility] ([facility]) FX Bimalleolar Ankle W/O Manipulation 09/21/2019 12:00 :00 AM EDT [facility] ([facility] ) RADEX ANKLE COMPLETE MINIMUM 3 VIEWS 09/21/2019 12:00: 00 AM EDT [facility] ([facility] ) APPLICATION SHORT LEG CAST BELOW KNEE-TOE 08/23/2019 1 2:00:00 AM EDT [facility] ([facility] ) RADEX ANKLE COMPLETE MINIMUM 3 VIEWS 08/23/2019 12:00: 00 AM EDT [facility] ([facility] ) Brief Individual Psychotherapy - 30 min 05/09/2019 12:00:00 AM EST - 05/09/2019 12:00:00 AM EST [facility] ([facility]) Brief Individual Psychotherapy - 30 min 05/09/2019 12: 00:00 AM EST [facility] ([facility]) OFFICE OUTPATIENT VISIT 15 MINUTES 05/04 12:00:00 AM EST - 05/04/2019 12:00:00 AM EST [facility] ([facility]) OFFICE OUTPATIENT VISIT 15 MINUTES 05/04/2019 12:00:00 AM EST [facility] ([facility]) Brief Individual Psychotherapy - 30 min 04/25/2019 12:00:00 AM EST - 04/25/2019 12:00:00 AM EST [facility] ([facility]) Brief Individual Psychotherapy - 30 min 04/25/2019 12: 00:00 AM EST [facility] ([facility]) Results ID Date Data Source [id number] 03/05/2020 06:37:00 AM EST [facility] ([facility]) Name Value Range Interpretation Code Description Data Miya rce(s) Supporting Document(s) white blood count 5.4 10 4.0-10.0 normal White Blood Count [facility] ([facility]) red blood count 4.20 10 4.00-5.40 normal Red Blood Count ATHE NA ([facility]) hemoglobin 12.1 g/dL 12.0-15.5 normal Hemoglobin [facility] ([facility]) hematocrit 39.0 % 36.0-47.0 normal Hematocrit [facility] ([facility]) mean corpuscular hemoglobin 28.8 pg 27.0-33.0 normal Mean Corpuscular Hemoglobin [facility] ([facility]) mean corpuscular volume 92.9 fL 80.0-96.0 normal Mean Corpusc ular Volume [place] ([facility]) mean corpuscular HGB conc 31.0 g/dL 32.0-36.5 Below low zeeshan l Mean Corpuscular HGB Conc [place] ([facility]) platelet count, automated 97 10 150-450 Below low zeeshan l Platelet Count, Automated [facility] ([facility]) red cell distribution width 14.2 % 11.5-14.5 normal Red Cell Distribution Width [place] ([facility]) nucleated red blood cell % 0.4 % 0-0 Above high nor mal Nucleated Red Blood Cell % [place] ([facility]) ID Date Data Source [id number] 03/05/2020 06:37:00 AM EST [facility] ([facility]) Name Value Range Interpretation Code Description Data Miya rce(s) Supporting Document(s) magnesium level 2.0 mg/dL 1.8-2.4 normal Magnesium Level ATHE [place] ([facility]) ID Date Data Source [id number] 03/05/2020 06:37:00 AM EST [place] ([facility]) Name Value Range Interpretation Code Description Data Miya rce(s) Supporting Document(s) glucose, fasting 97 mg/dL 70-100 normal Glucose, Fasting AT [facility] ([facility]) blood urea nitrogen 10 mg/dL 7-18 normal Blood Urea Nitro gen [facility] ([facility]) creatinine for GFR 1.57 mg/dL 0.55-1.30 Above high normal Creatinine for GFR [place] ([facility]) sodium level 143 mEq/L 136-145 normal Sodium Level [facility] ([facility]) glomerular filtration rate >60 Below low normal Deonna merular Filtration Rate [facility] ([facility]) potassium serum 3.5 mEq/L 3.5-5.1 normal Potassium Serum ATHE NA ([facility]) chloride level 110 mEq/L 98-107 Above high normal Chloride Level [facility] ([facility]) carbon dioxide level 26 mEq/L 21-32 normal Carbon Dioxide Level [facility] ([facility]) anion gap 7 mEq/L 8-16 Below low normal Anion Gap [facility] ( [facility]) calcium level 8.5 mg/dL 8.5-10.1 normal Calcium Level [facility] ( [facility]) ID Date Data Source [id number] 03/05/2020 06:37:00 AM EST [facility]) Name Value Range Interpretation Code Description Data Miya rce(s) Supporting Document(s) immature platelet fraction % 1.3 % 0.0-9.59 normal Immatur e Platelet Fraction % [facility] ([facility]) ID Date Data Source [id number] 03/04/2020 04:50:00 AM EST [facility]) Name Value Range Interpretation Code Description Data Miya rce(s) Supporting Document(s) white blood count 4.4 10 4.0-10.0 normal White Blood Count [place] ([facility]) red blood count 4.12 10 4.00-5.40 normal Red Blood Count ATHE ([facility]) hemoglobin 11.9 g/dL 12.0-15.5 Below low normal Hemoglobin [facility] ( [facility]) hematocrit 39.4 % 36.0-47.0 normal Hematocrit [facility] ([facility]) mean corpuscular hemoglobin 28.9 pg 27.0-33.0 normal Mean Corpuscular Hemoglobin [facility] ([facility]) mean corpuscular volume 95.6 fL 80.0-96.0 normal Mean Corpusc ular Volume [place] ([facility]) red cell distribution width 14.2 % 11.5-14.5 normal Red Cell Distribution Width [facility] ([facility]) mean corpuscular HGB conc 30.2 g/dL 32.0-36.5 Below low zeeshan l Mean Corpuscular HGB Conc [facility] ([facility]) platelet count, automated 101 10 150-450 Below low zeeshan l Platelet Count, Automated [place] ([facility]) nucleated red blood cell % 0.0 % 0-0 normal Nucleated Red Blood Cell % [facility] ([facility]) ID Date Data Source [id number] 03/04/2020 04:49:00 AM EST [place] ([facility]) Name Value Range Interpretation Code Description Data Miya rce(s) Supporting Document(s) magnesium level 2.1 mg/dL 1.8-2.4 normal [facility] Date Data Source [id number] 03/04/2020 04:49:00 AM EST [place] ([facility]) Name Value Range Interpretation Code Description Data Miya rce(s) Supporting Document(s) glucose, fasting 86 mg/dL 70-100 normal Glucose, Fasting AT [facility]) blood urea nitrogen 8 mg/dL 7-18 normal Blood Urea Nitro gen [place] ([facility]) creatinine for GFR 1.57 mg/dL 0.55-1.30 Above high normal Creatinine for GFR [facility] ([facility]) glomerular filtration rate >60 Below low normal Deonna merular Filtration Rate [place] ([facility]) potassium serum 3.8 mEq/L 3.5-5.1 normal Potassium Serum ATHE NA ([facility]) sodium level 145 mEq/L 136-145 normal Sodium Level [place] ([facility]) chloride level 111 mEq/L 98-107 Above high normal Chloride Level [facility] ([facility]) carbon dioxide level 30 mEq/L 21-32 normal Carbon Dioxide Level [place] ([facility]) anion gap 4 mEq/L 8-16 Below low normal Anion Gap [place] ( [facility]) calcium level 8.2 mg/dL 8.5-10.1 Below low normal Calcium Level AT [facility] ([facility]) ID Date Data Source [id number] 03/03/2020 04:32:00 AM EST [place] ([facility]) Name Value Range Interpretation Code Description Data Miya rce(s) Supporting Document(s) T uptake 30 % 30-39 normal T Uptake [facility] ([facility]) thyroxine (T4) 5.2 ug/dL 4.5-12.0 normal Thyroxine (T4) [place] ([facility]) free thyroxine index 1.6 % 1.3-4.8 normal Free Thyroxine Index [place] ([facility]) thyroid stimulating hormone 164.000 uIU/mL 0.358-3.740 Above high normal Thyroid Stimulating Hormone [place] ([facility]) ID Date Data Source [id number] 03/03/2020 04:32:00 AM EST [place] ([facility]) Name Value Range Interpretation Code Description Data Miya rce(s) Supporting Document(s) magnesium level 2.1 mg/dL 1.8-2.4 normal Magnesium Level [facility]TH[facility] ([facility]) ID Date Data Source [id number] 03/03/2020 04:32:00 AM EST [facility]) Name Value Range Interpretation Code Description Data Miya rce(s) Supporting Document(s) blood urea nitrogen 8 mg/dL 7-18 normal Blood Urea Nitro gen [facility] ([facility]) glucose, fasting 70 mg/dL 70-100 normal Glucose, Fasting AT [facility] ([facility]) creatinine for GFR 1.48 mg/dL 0.55-1.30 Above high normal Creatinine for GFR [place] ([facility]) glomerular filtration rate >60 Below low normal Deonna merular Filtration Rate [facility] ([facility]) potassium serum 3.6 mEq/L 3.5-5.1 normal Potassium Serum ATHE NA ([facility]) sodium level 144 mEq/L 136-145 normal Sodium Level [facility] ([facility]) chloride level 111 mEq/L 98-107 Above high normal Chloride Level [facility] ([facility]) anion gap 4 mEq/L 8-16 Below low normal Anion Gap [place] ( [facility]) carbon dioxide level 29 mEq/L 21-32 normal Carbon Dioxide Level [place] ([facility]) calcium level 8.0 mg/dL 8.5-10.1 Below low normal Calcium Level AT [facility]) ID Date Data Source [id number] 03/03/2020 04:32:00 AM EST [place] ([facility]) Name Value Range Interpretation Code Description Data Miya rce(s) Supporting Document(s) white blood count 4.7 10 4.0-10.0 normal White Blood Count [place] ([facility]) red blood count 3.99 10 4.00-5.40 Below low normal Red Blood Coun t [place] ([facility]) hematocrit 38.3 % 36.0-47.0 normal Hematocrit [place] ([facility]) hemoglobin 11.6 g/dL 12.0-15.5 Below low normal Hemoglobin [place] ( [facility]) mean corpuscular volume 96.0 fL 80.0-96.0 normal Mean Corpusc ular Volume [place] ([facility]) mean corpuscular hemoglobin 29.1 pg 27.0-33.0 normal Mean Corpuscular Hemoglobin [place] ([facility]) red cell distribution width 14.3 % 11.5-14.5 normal Red Cell Distribution Width [place] ([facility]) mean corpuscular HGB conc 30.3 g/dL 32.0-36.5 Below low zeeshan l Mean Corpuscular HGB Conc [facility] ([facility]) nucleated red blood cell % 0.0 % 0-0 normal Nucleated Red Blood Cell % [place] ([facility]) platelet count, automated 111 10 150-450 Below low zeeshan l Platelet Count, Automated [facility]) ID Date Data Source [id number] 03/03/2020 04:24:00 AM EST [place] ([facility]) Name Value Range Interpretation Code Description Data Miya rce(s) Supporting Document(s) vitamin D 1,25 dihydroxy 40.6 pg/mL 19.9-79.3 normal Vitamin D 1 ,25 Dihydroxy [facility] ([facility]) ID Date Data Source [id number] 03/02/2020 07:33:00 AM EST [place] ([facility]) Name Value Range Interpretation Code Description Data Miya rce(s) Supporting Document(s) bedside glucose 96 mg/dL 70-105 normal Bedside Glucose [facility] ([facility]) ID Date Data Source [id number] 03/02/2020 05:17:00 AM EST [place] ([facility]) Name Value Range Interpretation Code Description Data Miya rce(s) Supporting Document(s) T uptake 30 % 30-39 normal T Uptake [facility] ([facility]) free thyroxine index 1.1 % 1.3-4.8 Below low normal Free Thyr oxine Index [place] ([facility]) thyroxine (T4) 3.5 ug/dL 4.5-12.0 Below low normal Thyroxine (T4) [place] ([facility]) thyroid stimulating hormone 273.000 uIU/mL 0.358-3.740 Above high normal Thyroid Stimulating Hormone [facility] ([facility]) ID Date Data Source [id number] 03/02/2020 05:17:00 AM EST [place] ([facility]) Name Value Range Interpretation Code Description Data Miya rce(s) Supporting Document(s) magnesium level 2.2 mg/dL 1.8-2.4 normal Magnesium Level [facility] ([facility]) ID Date Data Source [id number] 03/02/2020 05:17:00 AM EST [place] ([facility]) Name Value Range Interpretation Code Description Data Miya rce(s) Supporting Document(s) glucose, fasting 63 mg/dL 70-100 Below low normal Glucose, Fast ing [facility] ([facility]) blood urea nitrogen 10 mg/dL 7-18 normal Blood Urea Nitro gen [facility] ([facility]) creatinine for GFR 1.39 mg/dL 0.55-1.30 Above high normal Creatinine for GFR [facility] ([facility]) glomerular filtration rate >60 Below low normal Deonna merular Filtration Rate [facility] ([facility]) potassium serum 3.8 mEq/L 3.5-5.1 normal Potassium Serum ATHE NA ([facility]) sodium level 146 mEq/L 136-145 Above high normal Sodium Level [facility] ([facility]) carbon dioxide level 27 mEq/L 21-32 normal Carbon Dioxide Level [facility] ([facility]) chloride level 114 mEq/L 98-107 Above high normal Chloride Level [place] ([facility]) anion gap 5 mEq/L 8-16 Below low normal Anion Gap [place] ( [facility]) calcium level 7.6 mg/dL 8.5-10.1 Below low normal Calcium Level AT [facility] ([facility]) ID Date Data Source [id number] 03/02/2020 05:17:00 AM EST [place] ([facility]) Name Value Range Interpretation Code Description Data Miya rce(s) Supporting Document(s) white blood count 6.5 10 4.0-10.0 normal White Blood Count [place] ([facility]) red blood count 3.65 10 4.00-5.40 Below low normal Red Blood Coun t [facility] ([facility]) hemoglobin 10.7 g/dL 12.0-15.5 Below low normal Hemoglobin [facility] ( [facility]) mean corpuscular volume 97.5 fL 80.0-96.0 Above high normal Mean Corpuscular Volume [place] ([facility]) hematocrit 35.6 % 36.0-47.0 Below low normal Hematocrit [place] ( [facility]) mean corpuscular HGB conc 30.1 g/dL 32.0-36.5 Below low zeeshan l Mean Corpuscular HGB Conc [facility] ([facility]) mean corpuscular hemoglobin 29.3 pg 27.0-33.0 normal Mean Corpuscular Hemoglobin [facility] ([facility]) red cell distribution width 14.1 % 11.5-14.5 normal Red Cell Distribution Width [facility] ([facility]) nucleated red blood cell % 0.0 % 0-0 normal Nucleated Red Blood Cell % [facility] ([facility]) platelet count, automated 106 10 150-450 Below low zeeshan l Platelet Count, Automated [facility] ([facility]) ID Date Data Source [id number] 03/01/2020 06:18:00 PM EST [facility] ([facility]) Name Value Range Interpretation Code Description Data Miya rce(s) Supporting Document(s) ABG pH (arterial) 7.327 units 7.350-7.450 Below low normal ABG pH (Ar terial) [facility] ([facility]) ABG partial pressure O2 87.0 mmHg 75.0-100.0 normal ABG Partial Pressure O2 [place] ([facility]) ABG partial pressure CO2 52.4 mmHg 35.0-45.0 Above high zeeshan l ABG Partial Pressure CO2 [place] ([facility]) ABG total CO2 28.4 mEq/L 22.0-29.0 normal ABG Total CO2 [place] ( [facility]) ABG HCO3 26.8 mEq/L 22.0-26.0 Above high normal Abg Hco3 [facility] ([facility]) ABG base excess -2.0-2.0 normal ABG Base Excess ATHE NA ([facility]) ABG standard HCO3 24.6 mEq/L 22.0-26.0 normal ABG Standard HCO3 [place] ([facility]) ABG O2 saturation 96.6 % 95.0-99.0 normal ABG O2 Saturation [facility] ([facility]) ID Date Data Source [id number] 03/01/2020 03:46:00 PM EST [place] ([facility]) Name Value Range Interpretation Code Description Data Miya rce(s) Supporting Document(s) ABG partial pressure CO2 51.5 mmHg 35.0-45.0 Above high zeeshan l ABG Partial Pressure CO2 [facility] ([facility]) ABG pH (arterial) 7.306 units 7.350-7.450 Below low normal ABG pH (Ar terial) [facility] ([facility]) ABG total CO2 26.7 mEq/L 22.0-29.0 normal ABG Total CO2 [place] ( [facility]) ABG partial pressure O2 80.4 mmHg 75.0-100.0 normal ABG Partial Pressure O2 [facility] ([facility]) ABG HCO3 25.1 mEq/L 22.0-26.0 normal Abg Hco3 [facility] ([facility]) ABG base excess -2.0-2.0 normal ABG Base Excess ATHE NA ([facility]) ABG O2 saturation 95.4 % 95.0-99.0 normal ABG O2 Saturation [facility] ([facility]) ABG standard HCO3 23.0 mEq/L 22.0-26.0 normal ABG Standard HCO3 [facility] ([facility]) ID Date Data Source [id number] 03/01/2020 05:41:00 AM EST [facility] ([facility]) Name Value Range Interpretation Code Description Data Miya rce(s) Supporting Document(s) angiotensin 1 converting enzym 61 U/L 14-82 normal Angiotensin 1 Converting Enzym [facility] ([facility]) ID Date Data Source [id number] 03/01/2020 05:41:00 AM EST [facility] ([facility]) Name Value Range Interpretation Code Description Data Miya rce(s) Supporting Document(s) ABG pH (arterial) 7.328 units 7.350-7.450 Below low normal ABG pH (Ar terial) [facility] ([facility]) ABG partial pressure O2 91.2 mmHg 75.0-100.0 normal ABG Partial Pressure O2 [facility] ([facility]) ABG partial pressure CO2 45.2 mmHg 35.0-45.0 Above high zeeshan l ABG Partial Pressure CO2 [facility] ([facility]) ABG HCO3 23.2 mEq/L 22.0-26.0 normal Abg Hco3 [facility] ([facility]) ABG total CO2 24.6 mEq/L 22.0-29.0 normal ABG Total CO2 [facility] ( [facility]) ABG standard HCO3 22.1 mEq/L 22.0-26.0 normal ABG Standard HCO3 [facility] ([facility]) ABG base excess -2.0-2.0 Below low normal ABG Base Exces s [facility] ([facility]) ABG O2 saturation 96.9 % 95.0-99.0 normal ABG O2 Saturation [facility] ([facility]) ID Date Data Source [id number] 02/29/2020 07:30:00 PM EST [facility] ([facility]) Name Value Range Interpretation Code Description Data Miya rce(s) Supporting Document(s) ABG pH (arterial) 7.327 units 7.350-7.450 Below low normal ABG pH (Ar terial) [facility] ([facility]) ABG partial pressure CO2 55.0 mmHg 35.0-45.0 Above high zeeshan l ABG Partial Pressure CO2 [facility] ([facility]) ABG total CO2 29.8 mEq/L 22.0-29.0 Above high normal ABG Total CO2 A THE[facility] ([facility]) ABG partial pressure O2 76.0 mmHg 75.0-100.0 normal ABG Partial Pressure O2 [facility] ([facility]) ABG HCO3 28.2 mEq/L 22.0-26.0 Above high normal Abg Hco3 [facility] ([facility]) ABG standard HCO3 25.5 mEq/L 22.0-26.0 normal ABG Standard HCO3 [facility] ([facility]) ABG base excess -2.0-2.0 normal ABG Base Excess ATHE NA ([facility]) ABG O2 saturation 95.0 % 95.0-99.0 normal ABG O2 Saturation [facility] ([facility]) ID Date Data Source [id number] 02/29/2020 12:55:00 PM EST [facility] ([facility]) Name Value Range Interpretation Code Description Data Miya rce(s) Supporting Document(s) ABG partial pressure O2 59.0 mmHg 75.0-100.0 Below low normal ABG Partial Pressure O2 [facility] ([facility]) ABG pH (arterial) 7.346 units 7.350-7.450 Below low normal ABG pH (Ar terial) [facility] ([facility]) ABG partial pressure CO2 51.7 mmHg 35.0-45.0 Above high zeeshan l ABG Partial Pressure CO2 [facility] ([facility]) ABG HCO3 27.6 mEq/L 22.0-26.0 Above high normal Abg Hco3 [facility] ([facility]) ABG total CO2 29.2 mEq/L 22.0-29.0 Above high normal ABG Total CO2 A THENA ([facility]) ABG standard HCO3 25.3 mEq/L 22.0-26.0 normal ABG Standard HCO3 [facility] ([facility]) ABG base excess -2.0-2.0 normal ABG Base Excess ATHE NA ([facility]) ABG O2 saturation 90.2 % 95.0-99.0 Below low normal ABG O2 Satur ation [facility] ([facility]) ID Date Data Source [id number] 02/29/2020 05:16:00 AM EST [facility] ([facility]) Name Value Range Interpretation Code Description Data Miya rce(s) Supporting Document(s) magnesium level 2.2 mg/dL 1.8-2.4 normal Magnesium Level ATHE NA ([facility]) ID Date Data Source [id number] 02/29/2020 05:16:00 AM EST DAIANA ([facility]) Name Value Range Interpretation Code Description Data Miya rce(s) Supporting Document(s) glucose, fasting 131 mg/dL 70-100 Above high normal Glucose, Fas ting DAIANA ([facility]) creatinine for GFR 1.87 mg/dL 0.55-1.30 Above high normal Creatinine for GFR DAIANA ([facility]) blood urea nitrogen 10 mg/dL 7-18 normal Blood Urea Nitro gen DAIANA ([facility]) glomerular filtration rate >60 Below low normal Deonna merular Filtration Rate DAIANA ([facility]) sodium level 140 mEq/L 136-145 normal Sodium Level DAIANA ([facility]) chloride level 106 mEq/L 98-107 normal Chloride Level DAIANA ([facility]) carbon dioxide level 28 mEq/L 21-32 normal Carbon Dioxide Level DA[place] ([facility]) potassium serum 4.2 mEq/L 3.5-5.1 normal Potassium Serum ATHE ([facility]) anion gap 6 mEq/L 8-16 Below low normal Anion Gap [place] ( [facility]) calcium level 8.4 mg/dL 8.5-10.1 Below low normal Calcium Level AT [facility] ([facility]) ID Date Data Source [id number] 02/29/2020 05:16:00 AM EST [place] ([facility]) Name Value Range Interpretation Code Description Data Miya rce(s) Supporting Document(s) white blood count 8.8 10 4.0-10.0 normal White Blood Count DAIANA ([facility]) red blood count 4.24 10 4.00-5.40 normal Red Blood Count ATHE ([facility]) hematocrit 40.1 % 36.0-47.0 normal Hematocrit DA[place]NA ([facility]) mean corpuscular volume 94.6 fL 80.0-96.0 normal Mean Corpusc ular Volume DA[place]NA ([facility]) hemoglobin 12.0 g/dL 12.0-15.5 normal Hemoglobin [facility] ([facility]) mean corpuscular HGB conc 29.9 g/dL 32.0-36.5 Below low zeeshan l Mean Corpuscular HGB Conc DA[place]NA ([facility]) mean corpuscular hemoglobin 28.3 pg 27.0-33.0 normal Mean Corpuscular Hemoglobin DA[facility]NA ([facility]) platelet count, automated 151 10 150-450 normal Platelet C ount, Automated DA[place]NA ([facility]) red cell distribution width 14.0 % 11.5-14.5 normal Red Cell Distribution Width DA[place] ([facility]) nucleated red blood cell % 0.0 % 0-0 normal Nucleated Red Blood Cell % DA[facility]NA ([facility]) ID Date Data Source [id number] 02/28/2020 11:28:00 PM EST DAIANA ([facility]) Name Value Range Interpretation Code Description Data Miya rce(s) Supporting Document(s) potassium random urine 96.0 mEq/L normal Potassium Ran dom Urine DA[facility]NA ([facility]) ID Date Data Source [id number] 02/28/2020 11:28:00 PM EST DA[place] ([facility]) Name Value Range Interpretation Code Description Data Miya rce(s) Supporting Document(s) sodium,random urine 61 mEq/L normal Sodium,random Ur ine [facility] ([facility]) ID Date Data Source [id number] 02/28/2020 11:28:00 PM EST DA[place] ([facility]) Name Value Range Interpretation Code Description Data Miya rce(s) Supporting Document(s) creatinine,random urine 165.0 mg/dL normal Creatinine, random Urine [facility] ([facility]) ID Date Data Source [id number] 02/28/2020 11:28:00 PM EST DA[place] ([facility]) Name Value Range Interpretation Code Description Data Miya rce(s) Supporting Document(s) osmolality urine 523 mOsm/kg 500-800 normal Osmolality Urine A THENA ([facility]) ID Date Data Source [id number] 02/28/2020 11:28:00 PM EST DA[place] ([facility]) Name Value Range Interpretation Code Description Data Miya rce(s) Supporting Document(s) appearance, urine cloudy clear Above high normal Appearance, Urine [facility] ([facility]) color, urine yellow yellow normal Color, Urine [facility] ([facility]) specific gravity urine auto 1.002-1.035 normal Specifi c [place] Urine Auto [facility] ([facility]) pH,urine 7.0 units 5.0-9.0 normal pH,urine [facility] ([facility]) protein, urine auto negative negative normal Protein, Urine A uto [facility] ([facility]) ketone, urine auto negative negative normal Ketone, Urine Aut o [facility] ([facility]) bilirubin, urine auto negative negative normal Bilirubin, Uri ne Auto [facility] ([facility]) nitrite, urine auto positive negative normal Nitrite, Urine A uto [facility] ([facility]) urobilinogen, urine auto 0.2 mg/dL 0.0-2.0 normal Urobilinoge n, Urine Auto [facility] ([facility]) glucose, urine (UA) auto negative negative normal Glucose, Ur ine (UA) Auto [facility] ([facility]) leukocyte esterase, urine auto 1+ negative Above high normal Leukocyte Esterase, Urine Auto [facility] ([facility]) blood, urine blood negative negative normal Blood, Urine Bloo d [facility] ([facility]) RBC, urine auto 1 /hpf 0-3 normal RBC, Urine Auto ATHE NA ([facility]) WBC, urine auto 13 /hpf 0-3 Above high normal WBC, Urine Au to [facility] ([facility]) bacteria, urine auto 3+ negative Above high normal Bacteria , Urine Auto [place] ([facility]) transitional epithelial auto <1 none normal Transit ional Epithelial Auto [facility] ([facility]) mucus, urine small negative normal Mucus, Urine [facility] ([facility]) squamous epithelial cell ur AU 5 /hpf 0-6 normal Squam ous Epithelial Cell Ur AU [facility] ([facility]) hyaline cast, urine auto 0 /lpf 0-1 normal Hyaline Adams t, Urine Auto [facility] ([facility]) ID Date Data Source [id number] 02/28/2020 04:33:00 PM EST DA[place] ([facility]) Name Value Range Interpretation Code Description Data Miya rce(s) Supporting Document(s) procalcitonin <0.05 normal Procalcitonin [facility] ( [facility]) ID Date Data Source [id number] 02/28/2020 04:33:00 PM EST [place] ([facility]) Name Value Range Interpretation Code Description Data Miya rce(s) Supporting Document(s) D-dimer quant 1194.11 NG/mL <500 Above high normal D-dimer Kenton t [facility]NA ([facility]) ID Date Data Source [id number] 02/28/2020 02:58:00 PM EST DA[place] ([facility]) Name Value Range Interpretation Code Description Data Miya rce(s) Supporting Document(s) istat pCO2 51.0 mmHg 35.0-45.0 Above high normal Istat pCO2 [place] ([facility]) istat pH 7.359 units 7.350-7.450 normal Istat pH [facility] ([facility]) istat TCO2 30.0 mmol/L 23.0-27.0 Above high normal Istat TCO2 [place] ([facility]) istat HCO3 28.7 mmol/L 22.0-26.0 Above high normal Istat HCO3 [place] ([facility]) istat pO2 46.0 mmHg 80-105 Below low normal Istat pO2 [place] ( [facility]) istat base excess 3.0 mmol/L -2.0-3.0 normal Istat Base Excess [place] ([facility]) istat so2 79 % 95-98 Below low normal Istat So2 [place] ( [facility]) ID Date Data Source [id number] 02/28/2020 12:32:00 PM EST [place] ([facility]) Name Value Range Interpretation Code Description Data Miya rce(s) Supporting Document(s) free T3 < 0.5 2.2-4.0 Below low normal Free T3 [place] ( [facility]) ID Date Data Source [id number] 02/28/2020 12:32:00 PM EST [place] ([facility]) Name Value Range Interpretation Code Description Data Miya rce(s) Supporting Document(s) free T4 0.19 NG/dL 0.76-1.46 Below low normal Free T4 [place] ( [facility]) ID Date Data Source [id number] 02/28/2020 12:32:00 PM EST [place] ([facility]) Name Value Range Interpretation Code Description Data Miya rce(s) Supporting Document(s) osmolality serum 292 mOsm/kg 275-295 normal Osmolality Serum A THENA ([facility]) ID Date Data Source [id number] 02/28/2020 12:32:00 PM EST [place] ([facility]) Name Value Range Interpretation Code Description Data Miya rce(s) Supporting Document(s) magnesium level 2.1 mg/dL 1.8-2.4 normal Magnesium Level ATHIvan NAJERA ([facility]) ID Date Data Source [id number] 02/28/2020 12:32:00 PM EST [place] ([facility]) Name Value Range Interpretation Code Description Data Miya rce(s) Supporting Document(s) uric acid 8.3 mg/dL 2.6-6.0 Above high normal Uric Acid [facility] ([facility]) ID Date Data Source [id number] 02/28/2020 12:32:00 PM EST [place] ([facility]) Name Value Range Interpretation Code Description Data Miya rce(s) Supporting Document(s) CPK creatine phosphokinase 277 U/L 26-192 Above high nor mal CPK Creatine Phosphokinase [facility] ([facility]) ID Date Data Source [id number] 02/28/2020 12:32:00 PM EST [place] ([facility]) Name Value Range Interpretation Code Description Data Miya rce(s) Supporting Document(s) HCG, serum qualitative negative negative normal HCG, Serum Qu alitative [facility] ([facility]) ID Date Data Source [id number] 02/28/2020 12:32:00 PM EST [place] ([facility]) Name Value Range Interpretation Code Description Data Miya rce(s) Supporting Document(s) thyroid stimulating hormone 190.000 uIU/mL 0.358-3.740 Above high normal Thyroid Stimulating Hormone [place] ([facility]) ID Date Data Source [id number] 02/28/2020 12:32:00 PM EST [place] ([facility]) Name Value Range Interpretation Code Description Data Miya rce(s) Supporting Document(s) glucose, fasting 108 mg/dL 70-100 Above high normal Glucose, Fas ting [facility] ([facility]) glomerular filtration rate >60 Below low normal Deonna merular Filtration Rate [place] ([facility]) creatinine for GFR 2.30 mg/dL 0.55-1.30 Above high normal Creatinine for GFR [place] ([facility]) blood urea nitrogen 11 mg/dL 7-18 normal Blood Urea Nitro gen [facility] ([facility]) sodium level 137 mEq/L 136-145 normal Sodium Level [facility] ([facility]) carbon dioxide level 31 mEq/L 21-32 normal Carbon Dioxide Level [facility] ([facility]) chloride level 103 mEq/L 98-107 normal Chloride Level [facility] ([facility]) potassium serum 4.4 mEq/L 3.5-5.1 normal Potassium Serum ATHE NA ([facility]) anion gap 3 mEq/L 8-16 Below low normal Anion Gap [place] ( [facility]) calcium level 9.6 mg/dL 8.5-10.1 normal Calcium Level [facility]) ID Date Data Source [id number] 02/28/2020 12:32:00 PM EST [place] ([facility]) Name Value Range Interpretation Code Description Data Miya rce(s) Supporting Document(s) AST/SGOT 18 U/L 7-37 normal AST/SGOT [facility] ([facility]) ALT/SGPT 11 U/L 12-78 Below low normal ALT/SGPT [place] ( [facility]) alkaline phosphatase 98 U/L 45-117 normal Alkaline Phosph atase [facility] ([facility]) bilirubin,total 0.3 mg/dL 0.2-1.0 normal Bilirubin,total [facility] ([facility]) bilirubin,direct < 0.1 0.0-0.2 normal Bilirubin,direct AT [facility] ([facility]) albumin 4.0 gm/dL 3.2-5.2 normal Albumin [facility] ([facility]) total protein 7.8 gm/dL 6.4-8.2 normal Total Protein [place] ( [facility]) albumin/globulin ratio 1.2-2.2 Below low normal Albumin /globulin Ratio [place] ([facility]) ID Date Data Source [id number] 02/28/2020 11:41:00 AM EST DAIANA ([facility]) Name Value Range Interpretation Code Description Data Miya rce(s) Supporting Document(s) istat troponin 0.01 NG/mL 0.00-0.08 normal Istat Troponin [facility] ([facility]) ID Date Data Source [id number] 02/28/2020 11:40:00 AM EST [place] ([facility]) Name Value Range Interpretation Code Description Data Miya rce(s) Supporting Document(s) istat HCT 46.0 % 38.0-51.0 normal Istat HCT [facility] ([facility]) istat glucose 94 mg/dL 70-105 normal Istat Glucose [place] ( [facility]) istat Ca++ 4.4 mg/dL 4.5-5.3 Below low normal Istat Ca++ [place] ( [facility]) istat potassium 6.9 mEq/L 3.5-5.1 Above high normal Istat Potassi um [place] ([facility]) istat sodium 138 mEq/L 136-145 normal Istat Sodium [facility] ([facility]) istat BUN 12 mg/dL 8-26 normal Istat BUN [place] ([facility]) istat chloride 100 mEq/L 98-109 normal Istat Chloride [facility] ([facility]) istat CO2 32.0 mm/L 23.0-27.0 Above high normal Istat CO2 [place] ([facility]) istat creatinine 2.3 mg/dL 0.6-1.3 Above high normal Istat Creati nine [place] ([facility]) ID Date Data Source [id number] 02/28/2020 11:26:00 AM EST [place] ([facility]) Name Value Range Interpretation Code Description Data Miya rce(s) Supporting Document(s) sars covid-19 amplification negative negative normal Sars Covid-19 Amplification [facility]) ID Date Data Source [id number] 02/28/2020 11:22:00 AM EST [facility]) Name Value Range Interpretation Code Description Data Miya rce(s) Supporting Document(s) white blood count 6.0 10 4.0-10.0 normal White Blood Count [place] ([facility]) red blood count 4.71 10 4.00-5.40 normal Red Blood Count AT[facility] ([facility]) hemoglobin 13.8 g/dL 12.0-15.5 normal Hemoglobin [place] ([facility]) hematocrit 44.9 % 36.0-47.0 normal Hematocrit [place] ([facility]) mean corpuscular volume 95.3 fL 80.0-96.0 normal Mean Corpusc ular Volume [place] ([facility]) mean corpuscular hemoglobin 29.3 pg 27.0-33.0 normal Mean Corpuscular Hemoglobin [facility] ([facility]) mean corpuscular HGB conc 30.7 g/dL 32.0-36.5 Below low zeeshan l Mean Corpuscular HGB Conc [facility] ([facility]) platelet count, automated 148 10 150-450 Below low zeeshan l Platelet Count, Automated [place] ([facility]) red cell distribution width 14.3 % 11.5-14.5 normal Red Cell Distribution Width [place] ([facility]) neutrophils % 67.9 % 36.0-66.0 Above high normal Neutrophils % A THENA ([facility]) lymph % 17.1 % 24.0-44.0 Below low normal Lymph % [place] ( [facility]) eos % 3.8 % 0.0-3.0 Above high normal Eos % [facility] ([facility]) baso % 1.2 % 0.0-1.0 Above high normal Baso % [facility] ([facility]) mono % 6.0 % 0.0-5.0 Above high normal [place] % [place] ([facility]) immature granulocyte % 4.0 % 0-3.0 Above high normal Immatu re Granulocyte % [facility] ([facility]) nucleated red blood cell % 0.0 % 0-0 normal Nucleated Red Blood Cell % [facility] ([facility]) neutrophils # 4.1 10 1.5-8.5 normal Neutrophils # [facility] ( [facility]) lymph # 1.0 10 1.5-5.0 Below low normal Lymph # [place] ( [facility]) eos # 0.2 10 0.0-0.5 normal Eos # [facility] ([facility]) mono # 0.4 10 0.0-0.8 normal [place] # [facility] ([facility]) baso # 0.1 10 0.0-0.2 normal Baso # [facility] ([facility]) ID Date Data Source [id number] 12/07/2019 05:39:00 AM EDT [facility] 85 90 100 92 Name Value Range Interpretation Code Description Data Miya rce(s) Supporting Document(s) ID Date Data Source [id number] 12/06/2019 05:50:00 PM EDT [facility] 85 90 100 92 Name Value Range Interpretation Code Description Data Miya rce(s) Supporting Document(s) ID Date Data Source [id number] 12/06/2019 11:58:00 AM EDT [facility] 85 90 100 92 Name Value Range Interpretation Code Description Data Miya rce(s) Supporting Document(s) ID Date Data Source [id number] 12/06/2019 05:23:00 AM EDT [facility] 85 90 100 92 Name Value Range Interpretation Code Description Data Miya rce(s) Supporting Document(s) ID Date Data Source [id number] 12/06/2019 05:23:00 AM EDT [facility] Name Value Range Interpretation Code Description Data Miya rce(s) Supporting Document(s) HCT 37.7 % 36.0-47.0 N [facility] HGB 12.4 g/dL 12.0-15.5 N [facility] MCH 32.9 G/DL pg 32.0-36.5 N [facility] MCHC 32.8 PG % 27.0-33.0 [facility] PLATELETS 117 10 10*3/mm3 150-450 L [facility] RBC 3.78 10 10*6/mm3 4.00-5.40 L [facility] RDW 12.3 % 11.5-14.5 N [facility] WBC TOTAL 4.6 4.0-10.0 [facility] ID Date Data Source [id number] 09/20/2019 12:00:00 AM EDT [facility] Imaging Geoff CHRISTIE Patient Name: ARELIS LARKIN [facility] Date of : 1980[address] Date of Exam: 09/20/2019SHAGGY [place] [id number]#: Fax: [phone] EXAM: CT LOWER EXTREMITY W/O [...] normallimits.IMPRESSION:Bimalleolar fracture as described above.Accredited by the [employer] in [place].DOMINIC Ann/Shashi you for referring EDWIN LARKIN to our office. Electronically Signed - MARY CAMPOS DO 09/21/19 13:24 Name Value Range Interpretation Code Description Data Miya rce(s) Supporting Document(s) ID Date Data Source [id number] 08/19/2019 04:08:42 PM EDT [facility] Measurements & CalculationsHeight: 63 inches (5 ft. [...] (ER) or urgent care clinic? Yes - [facility] Emergency room (ER) or urgent care date [...] use (e.g. memory loss, hepatitis, convulsions, bleeding)? NoTgraeme's Results: DAST Score: 4 DAST Interpretation: Brief Treatment Performed by: Rai Page MA, August 19, 2019 4:17 PMPatient History Medical History:DepressionHypothyroidismADHDAnxietyPTSDSubstance abuseSurgical History: k5Agedjv History:Substance abuse (Mother)Social/Personal History: Advised to Quit/Tobacco [...] during this visit, including review of any hyfp-bew-cvdxyie medications, herbal therapies, and/or supplements.Allergy ReviewAllergy List [...] left ankle, initial encounter for fracture (ICD-733.16) (QTD77-G26.472A)Hypothyroidism (ICD-244.9) (HKU90-T11.9) Assessment: renew thyroid medAssessment not SavedPathological fracture; left ankle; initial encounter for fracture (MFT74-W14.472A): pt to f/u ortho next thursdayMedications:PROPRANOLOL HCL [...] LIOTHYRONINE SODIUM 25 MCG ORAL TABLET Qty: [id number] Refills: 90[Tablet] To: LEVOTHYROXINE SODIUM 150 MCG ORAL TABLET- one tab po QD Qty: 90[Tablet] Refills: 1Allergies:No Known Allergies (updated 11/03/2017) Medications:LEVOTHYROXINE SODIUM 150 MCG ORAL TABLET (LEVOTHYROXINE SODIUM) one tab po QD #90[Tablet] x 1 Route:ORAL Entered and Authorized by: Ian Rockwell DO Method used: Electronically to [facility] (retail) [address] [place] [address] Note to Pharmacy: Route: ORAL; Indications: OTHER SPECIFIED HYPOTHYROIDISM RxID: [id number] signed by Ian Rockwell DO on 08/19/2019 at 4:34 PM Name Value Range Interpretation Code Description Data Miya rce(s) Supporting Document(s) ID Date Data Source [id number] 05/14/2019 07:40:00 PM EST [facility] 1 OrderSheet [facility] Emergency Department [address] [place] [address] Phone #: [phone] 05/14/2019 19:19 Patient: EDWIN LARKIN Sex: F [...] Rachidharrison CHRISTIE;CMP STAT 20:00 05/14/2019 20:03 Deliaelena Rodriguezharrison CHRISTIE;PT/PTT STAT 20:00 05/14/2019 20:03 Deliaelena Rashid Fabian CHRISITE;TSH STAT 20:00 05/14/2019 20:03 Deliaelena Rodriguezharrison CHRISTIE;Beta-HCG, Qual STAT 20:00 05/14/2019 20:03 Deliaelena RodriguezSmita CHRISTIE;DIAGNOSTIC STUDY ORDERSOrder Description Priority Entered Acknowledged InitialedChest 2 View STAT 20:00 05/14/2019 Ack'd: 20:03 Delia 21:55 Delia Rachid(Oxygen?(No)) Fabian CHRISTIE; 2 OrderSheet [facility] Emergency Department [address] [place] [address] Phone #: ext- [phone] 05/14/2019 19:19 Patient: [...] 22:19 05/14/2019 Cancelled: Patient Refusal 22:55 Keaton CHRISTIE;GENERAL ORDERSOrder Description Priority Entered Acknowledged InitialedEKG 20:00 05/14/2019 20:07 Franklin CHRISTIE;Blood Pressure 20:00 05/14/2019 20:07 Luz Maria CHRISTIE;Cans Vacuum Tester 20:00 05/14/2019 20:07 Franklin(continuous) Fabian CHRISTIE;Obtain Old EKG 20:00 05/14/2019 20:07 Franklin CHRISTIE;Pulse oximeter 20:00 05/14/2019 20:03 Delia Rashid(Continuous) Fabian CHRISTIE;Vitals 20:00 05/14/2019 20:03 Delia CHRISTIE;[Electronically signed by Franklin Hernandez RN (22:59 05/14/2019)][Electronically signed by Fabian Naidu (23:26 05/14/2019)][Electronically locked by Franklin Hernandez RN (22:59 05/14/2019)] Name Value Range Interpretation Code Description Data Miya rce(s) Supporting Document(s) ID Date Data Source [id number] 05/14/2019 07:40:00 PM [facility] 1 Medication Reconciliation Report [facility] Emergency Department [address] [place] [address] Phone #: ext- [phone] 05/14/2019 19:19 [id number] Sex: F : 1980 Age: 39yWeight: 90.7 [...] Dispense 14 capsule. Refills: 0.Substitution permitted.Pharmacy - [facility]- [address] ; [place], [place] [phone]. . -- SHAHNAZ Cabrera Name Value Range Interpretation Code Description Data Miya rce(s) Supporting Document(s) ID Date Data Source [id number] 05/14/2019 07:40:00 PM [place] [address] Medication Administration Record [facility] Emergency Department [address] [place] [address] Phone #: ext- [phone] 05/14/2019 19:19 Patient: EDWIN LARKIN Sex: F : 1980 Age: 39yWeight: 90.7 kgHeight/Length: 63 inBMI: 35.4A LLERGIES: No Known Drug Allergy Date/Time Medication Administered Medication OrderedGiven synthroid * - (Synthroid 50mcg PO)21:55 05/14/2019 Dose: 50 mcg * Clementine Hernandez R.N. Name Value Range Interpretation Code Description Data Miya rce(s) Supporting Document(s) ID Date Data Source [id number] 05/14/2019 07:40:00 PM [facility] 1 General Instructions [facility] Emergency Department [address] [place] [address] Phone #: ext- [phone] 05/14/2019 19:19 Patient: EDWIN LARKIN Sex: F : 1980 Age: 39yAcute urinary tract infection with cystitis and hematuria.Congenital hypothyroidism without goiter.INSTRUCTIONS(Call your director case management to have [facility] deliver your Thyroid medicine to you and [...] Dispense 14 capsule. Refills: 0.Substitution permitted.Pharmacy - [facility]- [place], [place] - [address] [place] [address] ; [place], [place] [phone]. .Follow-up:Follow up with your doctor Thursday. Reason for referral: evaluation, treatment and refer to Endocrinology.Summary of care provided to patient.Understanding of the discharge instructions verbalized by patient. ADDITIONAL INFORMATIONBladder Infection, Female (Adult) 2 General Instructions [facility] Emergency Department [address] [place] [address] Phone #: ext- [phone] 05/14/2019 19:19 Patient: EDWIN LARKIN Sex: F [...] out Blood in urine 3 General Instructions [facility] Emergency Department [address] [place] [address] Phone #: ext- [phone] 05/14/2019 19:19 Patient: EDWIN LARKIN Sex: F [...] more serious kidney infection. 4 General Instructions [facility] Emergency Department [address] [place] [address] Phone #: ext- [phone] 05/14/2019 19:19 [id number] Sex: F : 1980 Age: 39yMedicinesMedicines can [...] find out the results. 5 General Instructions [facility] Emergency Department [address] [place] [address] Phone #: ext- [phone] 05/14/2019 19:19 Patient: EDWNI LARKIN Sex: F : 1980 Age: 39yIf X-rays were done, you will be told if the results will affect your treatment.Call [phone] if any of the following occur: Trouble [...] i n the outer vaginal area (labia) [phone] [employer]. [address] [place] [address], [place] [address]. All rights reserved. This information is not intended as asubstitute for professional medical care. Always follow your healthcare professional's instructions.Hypothyroidism 6 General Instructions [facility] Emergency Department [address] [place] [address] Phone #: ext- [phone] 05/14/2019 19:19 Patient: ED[facility]ARKIN [id number] Sex: F : 1980 Age: 39yYou have [...] the hands or feet 7 General Instructions [facility] Emergency Department [address] [place] [address] Phone #: ext- [phone] 05/14/2019 19:19 Patient: [...] need to be adjusted. 8 General Instructions [facility] Emergency Department [address] [place] [address] Phone #: ext- [phone] 05/14/2019 19:19 Patient: [...] pain Shortness of breath or trouble breathing [phone] [employer]. [address] [place] [address], [place] [address]. All rights reserved. This information is not intended as asubstitute for professional medical care. Always follow your healthcare professional's instructions. You have been given the following additional information: Bladder Infection, Female (Adult) Hypothyroidism(Electronically signed by SHAHNAZ Cabrera 05/14/2019 23:26) Name Value Range Interpretation Code Description Data Miya rce(s) Supporting Document(s) ID Date Data Source [id number] 05/14/2019 07:40:00 PM EST [facility] 1 Clinical Report - Nurses [facility] Emergency Department [address] [place] [address] Phone #: izu- [phone] 05/14/2019 19:19 Patient: EDWIN LARKIN Sex: F [...] R.N.ADDITIONAL SURGERIES:. 2 Clinical Report - Nurses [facility] [place] [address] Phone #: ext- [phone] 05/14/2019 19:19 Patient: EDWIN LARKIN [facility]#: [id number] Sex: F : 1980 Age: 39y Tubal [...] the presence of the patient. --19:50 05/14/19 eDlia Hernandez R.N. 3 Clinical Report - Nurses [facility] Emergency Department [address] [place] [address] Phone #: ext- [phone] 05/14/2019 19:19 Patient: [...] RR: 13. O2 saturation: 95%. --20:14 05/14/19 [facility] TechShanell ER Tech1 21:55 05/14/2019 synthroid * [...] Patient verbalized understanding. Written instructions provided in Nepali. The patient was discharged home. She left [...] rce(s) Supporting Document(s) ID Date Data Source [id number] 05/14/2019 07:40:00 PM [facility] 1 Clinical Report - Physicians/Mid Levels [facility] Emergency Department [address] [place] [address] Phone #: ext- [phone] 05/14/2019 19:19 Patient: EDWIN LARKIN [id number] Sex: F : 1980 Age: 39y Time [...] or drug use. 2 Clinical Report - Physicians/[facility] Emergency Department [address] [place] [address] Phone #: ext- [phone] 05/14/2019 19:19 Patient: EDWIN LARKIN [id number] Sex: F : 1980 Age: 39yPHYSICAL EXAMVital [...] 7) 3 Clinical Report - Physicians/Mid Levels [facility] Emergency Department [address] [place] [address] Phone #: ext- [phone] 05/14/2019 19:19 Patient: EDWIN LARKIN Sex: F : 1980 Age: 39y RBC [...] GFR Interpren tation 20-49 yrs >60 mL/min Wczvqd85-47 yrs >56 mL/min Normal 60-69 yrs >49 mL/min Normal 70-79yrs>42 mL/min Normal 80 and above >35 mL/min Normal Female GFRInterpretation 20-39 yrs >60 mL/min Normal 40-49 yrs >58 mL/minNormal 50-59 yrs >51 mL/min Normal 60-69 yrs >45 mL/min Syyyke80-88 yrs >39 mL/min Normal 80 and above [...] VenousThrombosis, Pulmonary Embolus, Tissue heart valves, Acute NE Atrial Fibrillation, Valvular heart diseaseand recurrent Systemic Embolism. -International Normalized Ratio (INR): 2.5 - 3.5 forMechanical Prosthetic valve. \\BLDo\\PTT INTERPRETATION\\BLDx\\Critical results for patients not on therapy: >50 seconds Critical results for patients on therapy:>119 seconds Therapeutic range for patients on therapy: 58 - 90 seconds Coag studies fromline draws may not be accurate due to Heparin and other interferences.TSH: (SIMBA: 05/14/2019 20:15) ( PrgRcvd 05/14/2019 21:30) Final results Test Result Flag Units (Reference) TSH 255.00 H uIU/mL (0.47 - 5.01)Beta-HCG, Qual Urine: (SIMBA: 05/14/2019 19:55) ( PrgRcvd 05/14/2019 20:24) Final results Test Result Flag Units (Reference) HCG URINE QUAL NEGATIVE (NORMAL: NEGAT HCG URINE QL REENTER NEGATIVE (NORMAL: NEGAT { KIT LOT # [id number] ){ KIT EXP DATE06/28/20 ){ PROCEDURAL CONTROL VALID)Chest 2 View: (SIMBA: 05/14/2019 20:00) ( [facility] 21[facility]34[facility] In Progress 4 Clinical Report - Physicians/Mid Levels [facility] Emergency Department [address] [place] [address] Phone #: ext- [phone] 05/14/2019 19:19 Patient: EDWIN LARKIN Sex: F : 1980 Age: 39yCHEST 2 VIEWSReason(s): syncopeTRANSPORTATION: WC IV? O2? Oxygen?(No) Room: ED: NoCT Head W/O Cont: (SIMBA: 05/14/2019 20:00) ( [facility]/14[facility] 21:52) Final results Exam CT HEAD W/[place] [address] ---------NAME--------- NUMBER SEX AGE ADMIT DISC. XRAY# F/C TYPE CHAYA PINEDA [id number] F 39 05/14/19 [id number] XBE E/R DATE OF : 03/07 M/R# [id number] #: [id number] TR-1B LOCATION: EMERGENCY DEPT TRANSCRIBED: 05/14/19 21:[address] HEAD W/O CONTRAST [id number] COMPLETED:05/14/19 21:34 JER [id number] Reason(s): Altered Sense of Awareness PHYSICIAN: RICHARD NAIDU R A D I O L O G Y R E P O R T PATIENT HISTORY: ALTERED SENSE OF AWARENESS, ACT DOSE- 797.2mGy*cm, VERIFIED 2 IDENTIFIERS, NEG HCG, EST DOSE- 797.1mGy*cm. 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 Explained that [facility] will deliver her medicine and shereports her director case management is working with them to get her medication. [facility] is concerned about previous Myxedema [...] hematuria. 6 Clinical Report - Physicians/Mid Levels [facility] Emergency Department [address] [place] [address] Phone #: ext- [phone] 05/14/2019 19:19 Patient: EDWIN LARKIN Sex: F : 1980 Age: 39y Congenital hypothyroidism without goiter.INSTRUCTIONS (Call your director case management to have [facility] deliver your Thyroid medicine to you and [...] capsule. Refills: 0. Substitution permitted. Pharmacy - [address] ; [place], [place] [id number]. . Follow-up: Follow up with your doctor Thursday. Reason for referral: evaluation, treatment and refer to Endocrinology. Summary of care provided to patient. Understanding of the discharge instructions verbalized by patient.(Electronically signed by SHAHNAZ Cabrera 05/14/2019 23:26) Name Value Range Interpretation Code Description Data Miya parisi(s) Supporting Document(s) ID Date Data Source [id number] 05/14/2019 07:40:00 PM [facility] EDWIN Valencia VisitID: [id number] Date: 12:01Pt urine growing E. Coli, d/c on macrobid PO BIDx 7 days, sensitive; Shown to Amairani CHRISTIE up1733, no further intervention required at this time.(Electronically signed by Trina Grady R.N. 05/18/2019 12:01) Name Value Range Interpretation Code Description Data Miya e(s) Supporting Document(s) ID Date Data Source [id number] 05/16/2019 11:05:00 AM [facility] [address] [place] [address] PHONE: [phone] FAX: [phone] Name .................. : CHAYA PINEDA Acct Number.................. : [id number] ROOM. ................. : [facility] MR Number ................... : [id number] Stay type ............. : E/R Discharge Date......... ... : 05/14/19 Admit Date .... ..... : 05/14/19 Admit Phys .................... : RICHARD PA Date of ....... : 1980 Family Phys ................... : RICHTER SCOT Phone .................. : [phone] Age ................................ : 39 Film# .................. .:[id number] Sex ................................. : F Unsigned transcriptions are preliminary reports and do not represent a medical or legal document CHEST 2 VIEWS [id number] COMPLETE:05/14/19 21:34 JER [id number] Reaso n(s): syncope CHEST X-RAY: 2-VIEWS FINDINGS: [...] rce(s) Supporting Document(s) ID Date Data Source [id number] 05/16/2019 08:26:00 AM EST [facility] [address] [place] [address] PHONE: [phone] FAX: [phone] Name ..............: CHAYA PINEDA Acct Number ...........................: [id number] ROOM. ............: -1B MR Number ............................: [id number] Stay type.........: E/R Discharge Date...............:05/14/19 Admit Date .....: 05/14/19 Admit Phys .............................: RICHARD CHRISTIE Date of ..: 1980 Family Phys ...........................: RICHTER [facility] Phone..............: [phone] Age.................................:39 Film# ...............:[id number] Sex.................................:F Unsigned transcriptions are preliminary reports and [place] [id number] COMPLETE:05/15/19 02:26 T [id number] Please See Scanned Results. Name Value Range Interpretation Code Description Data Miya rce(s) Supporting Document(s) ID Date Data Source [id number] 05/14/2019 09:51:00 PM [facility] [address] [place] [address] ---------NAME--------- NUMBER SEX AGE ADMIT DISC. XRAY# F/C TYPE CHAYA PINEDA [id number] F 39 05/14/19 [id number] XBE E/R DATE OF : 1980 M/R# [id number] #: [id number] TR-1B LOCATION: EMERGENCY DEPT TRANSCRIBED: 05/14/19 21:[address] HEAD W/O CONTRAST [id number] COMPLETED:05/14/19 21:34 JER [id number] Reason(s): Altered Sense of Awareness PHYSICIAN: RICHARD [...] rce(s) Supporting Document(s) ID Date Data Source [id number] 05/14/2019 09:29:00 PM [facility] Name Value Range Interpretation Code Description Data Miya rce(s) Supporting Document(s) Thyrotropin [Units/volume] in Serum or Plasma by Detec tion limit <= 0.05 mIU/L 255.00 uIU/mL 0.47 - 5.01 H [facility] ID Date Data Source [id number] 05/14/2019 09:07:00 PM [facility] Name Value Range Interpretation Code Description Data Miya rce(s) Supporting Document(s) CBC W/AUTOMATED DIFF [facility] COMPLETE BLOOD COUNT Leukocytes [#/volume] in Blood by Automated count 4.6 10^3/uL 4.2 - 1 1.0 [facility] Erythrocytes [#/volume] in Blood by Automated count 3.81 10^6/uL 4. 20 - 5.40 L [facility] Hemoglobin [Mass/volume] in Blood 11.4 g/dL 12.0 - 16.0 L [facility] Hematocrit [Volume Fraction] of Blood by Automated count 35.6 % 3 7.0 - 47.0 L [facility] Erythrocyte mean corpuscular volume [Entitic volume] by Auto mated count 93.4 fL 81.0 - 101 [facility] Erythrocyte mean corpuscular hemoglobin [Entitic mass] by Automated count 29.9 pg 27.0 - 34.0 [facility] Erythrocyte mean corpuscular hemoglobin concentration [Mass/volume] by Automated count 32.0 g/dL 31.0 - 36.0 [facility] Erythrocyte distribution width [Ratio] by Automated count 13.9 % 11.5 - 14.5 [facility] Platelets [#/volume] in Blood by Automated count 120 10^3/uL 150 - 45 0 L [facility] Platelet mean volume [Entitic volume] in Blood by Automated count 8.6 fL 7.4 - 10.4 [facility] Neutrophils/100 leukocytes in Blood by Automated count 58.2 % 37. 0 - 80.0 [facility] Lymphocytes/100 leukocytes in Blood by Manual count 29.2 % 25.0 - 40.0 [facility] Monocytes/100 leukocytes in Blood by Automated count 6.5 % 3.0 - 8.0 [facility] Eosinophils/100 leukocytes in Blood by Automated count 4.4 % 0.0 - 7.0 [facility] Basophils/100 leukocytes in Blood by Automated count 1.3 % 0.0 - 2.5 [facility] %IG 0.4 % 0.0 - 0.0 H [facility] %NRBC 0.0 % 0.0 - 0.0 [facility] al Neutrophils [#/volume] in Blood by Automated count 2.67 10^3/uL 2.00 - 6.90 [facility] Lymphocytes [#/volume] in Blood by Automated count 1.34 10^3/uL 0.60 - 3.40 [facility] Monocytes [#/volume] in Blood by Automated count 0.30 10^3/uL 0.00 - 0.90 [facility] Eosinophils [#/volume] in Blood by Automated count 0.20 10^3/uL 0.00 - 0.70 [facility] Basophils [#/volume] in Blood by Automated count 0.06 10^3/uL 0.00 - 0.20 [facility] #IG 0.02 10^3/uL 0.00 - 0.10 [facility] #NRBC 0.00 10^3/uL 0.00 - 0.00 [facility] MANUAL DIFF SEE BELOW [facility] ital Segmented neutrophils/100 leukocytes in Blood by Manual count 53 % 37 - 80 [facility] %LYMPH 32 % 25 - 40 [facility] al %MONO 8 % 3 - 8 [facility] al %EOS 7 % 0 - 7 [facility] al RBC MORPH NOT INDICATED [facility] spital ID Date Data Source [id number] 05/14/2019 08:56:00 PM EST [facility] Name Value Range Interpretation Code Description Data Miya rce(s) Supporting Document(s) COMPREHENSIVE METABOLIC PANEL [facility] COMPREHENSIVE METABOLIC PANEL Sodium [Moles/volume] in Serum or Plasma 141 mEq/L 134 - 153 [facility] Potassium [Moles/volume] in Serum or Plasma 4.1 mEq/L 3.6 - 5.0 [facility] Chloride [Moles/volume] in Serum or Plasma 103 mEq/L 98 - 107 [facility] Carbon dioxide, total [Moles/volume] in Serum or Plasma 31 MEQ/L 22 - 30 H [facility] Glucose [Mass/volume] in Serum or Plasma 84 MG/DL 65 - 110 [facility] BUN 17 MG/DL 7 - 21 [facility] Creatinine [Mass/volume] in Serum or Plasma 1.8 MG/DL 0.7 - 1.5 H [facility] BUN/CREAT 9 8 - 27 [facility] Protein [Mass/volume] in Serum or Plasma 6.7 G/DL 6.3 - 8.2 [facility] Albumin [Mass/volume] in Serum or Plasma 4.6 G/DL 3.9 - 5.0 [facility] Globulin [Mass/volume] in Serum by calculation 2.1 GM/DL 2.4 - 3.2 L [facility] A/G RATIO 2.2 0.8 - 2.0 H [facility] Calcium [Mass/volume] in Serum or Plasma 9.3 MG/DL 8.4 - 10.2 [facility] Bilirubin.total [Mass/volume] in Serum or Plasma <0.7 MG/DL 0.2 - 1.3 [facility] Alkaline phosphatase [Enzymatic activity/volume] in Serum or Plasma 59 U/L 38 - 126 [facility] Aspartate aminotransferase [Enzymatic activity/volume] in Serum or Plasma 21 U/L 5 - 40 [facility] Alanine aminotransferase [Enzymatic activity/volume] in Seru m or Plasma 8 U/L 7 - 56 [facility] Anion gap 3 in Serum or Plasma 7.0 mmol/L 8.0 - 16.0 L [facility] AGE 39 yrs [facility] NON-AA GFR 34 mL/min [facility] AFR AMER GFR 41 mL/min [facility] Male GFR In terprentation 20-49 [...] >32 mL/min Normal ID Date Data Source [id number] 05/14/2019 08:44:00 PM EST [facility] Name Value Range Interpretation Code Description Data Miya rce(s) Supporting Document(s) Prothrombin time (PT) 11.8 SECONDS 11.0 - 15.5 [facility] INR in Platelet poor plasma by Coagulation assay 0.86 0.93 - 1. 23 L [facility] aPTT in Blood by Coagulation assay 34.5 SECONDS 24.8 - 36.7 [facility] \\BLDo\\INR INTERPRETATION\\BLDx\\ Therapeutic range for Coumadin and related oral anticoagulants. - International Normalized Ratio (INR): 2.0 - 3.0 for Venous Thrombosis, Pulmonary Embolus, Tissue heart valves, Acute NE Atrial Fibrillation, Valvular heart disease and recurrent [...] and other interferences. ID Date Data Source [id number] 05/17/2019 07:29:00 PM [facility] Name Value Range Interpretation Code Description Data Miya rce(s) Supporting Document(s) CULTURE URINE [facility] spital _CULTURE URINE_ [place] [address] CLIA# [id number] SEE SCANNED REPORT Specimen site Narrative R [facility] Result: ID Date Data Source [id number] 05/14/2019 08:31:00 PM EST [facility] Name Value Range Interpretation Code Description Data Miya rce(s) Supporting Document(s) DRUG SCREEN URINE [facility] URINE DRUG SCREEN Amphetamine [Presence] in Urine by Screen method NEGATIVE NORMAL: N EGATIVE [facility] BARBITURATES NEGATIVE NORMAL: NEGATIVE [facility] BENZO NEGATIVE NORMAL: NEGATIVE [facility] COCAINE NEGATIVE NORMAL: NEGATIVE [facility] Tetrahydrocannabinol [Presence] in Urine PRESUMP POS NORMAL: NEGATIVE [facility] OPIATES NEGATIVE NORMAL: NEGATIVE [facility] Phencyclidine [Presence] in Urine by Screen method NEGATIVE NOR MAL: NEGATIVE [facility] \\BLDo\\URINE DRUG SCR EEN INTERPRETATION\\BLDx\\ THE CUTOFFF LEVELS FOR DETECTION ARE FOLLOWS: AMPHETAMINES 1000 ng/ml BARBITUARATES 200 ng/ml BENZODIAZEPINES 100 ng/ml THC 50 ng/ml PHENCYCLIDINE 25 ng/ml OPIATES 300 ng/ml COCAINE 300 ng/ml ALL POSITIVES ARE CONSIDERED PRESUMPTIVE POSITIVE CONFIRMATION WILL BE PERFORMED AT PHYSICIAN REQUEST. ID Date Data Source [id number] 05/14/2019 08:24:00 PM EST [facility] Name Value Range Interpretation Code Description Data Miya rce(s) Supporting Document(s) HCG URINE QUAL NEGATIVE NORMAL: NEGATIVE [facility] HCG URINE QL REENTER NEGATIVE NORMAL: NEGATIVE [facility] { KIT LOT # [id number] ){ KIT EXP DATE 06/28/20 ){ PROCEDURAL CONTROL VALID ) ID Date Data Source [id number] 05/14/2019 08:23:00 PM EST [facility] Name Value Range Interpretation Code Description Data Miya rce(s) Supporting Document(s) URINALYSIS [facility] URINALYSIS SOURCE Clean Catch [facility] ital COLOR yellow NORMAL: Yellow [facility] CLARITY clear NORMAL: Clear [facility] Specific gravity of Urine by Test strip 1.015 1.001 - 1.030 [facility] pH 6 5 - 9 [facility] Glucose [Mass/volume] in Urine by Test strip NORM NORMAL: Negat [facility] Bilirubin.total [Presence] in Urine by Test strip NEG NORMAL: Negative [facility] Ketones [Presence] in Urine by Test strip NEG NORMAL: Negative [facility] Protein [Mass/volume] in Urine by Test strip NEG [facility] Nitrite [Presence] in Urine by Test strip NEG NORMAL: Negative [facility] BLOOD NEG NORMAL: Negative [facility] Leukocyte esterase [Presence] in Urine by Test strip 100 ZEESHAN L: Negative A [facility] Urobilinogen [Mass/volume] in Urine by Test strip NOR less hannah n 1.0 mg/dL [facility] MICROSCOPIC See Below [facility] ital WBC 5 - 7 NORMAL: NONE SEEN A [facility] Erythrocytes [#/volume] in Urine by Test strip 0 - 1 NORMAL: NON E SEEN [facility] EPITHELIAL MODERATE NORMAL: NONE SEEN A [facility] Bacteria [Presence] in Urine sediment by Light microscopy 2+ MOD NORMAL: NONE SEEN A [facility] Procedure Social History Code Duration Value Status Description Data Source(s ) Smoking 05/07/2020 12:00:00 AM EST Unknown if ever smoked comp leted Unknown if ever smoked [facility] ([facility]) Smoking 05/09/2019 12:00:00 AM EST Unknown if ever smoked comp leted Unknown if ever smoked [facility] ([facility]) Smoking 05/04/2019 12:00:00 AM EST Unknown if ever smoked comp leted Unknown if ever smoked [facility] ([facility]) Smoking 04/25/2019 12:00:00 AM EST Unknown if ever smoked comp leted Unknown if ever smoked [facility] ([facility]) Vital Signs ID Date Data Source UNK Name Value Range Interpretation Code Description Data Source(s) Body weight 3814 [oz_av] 3814 [oz_av] DAIANA ([facility]) Systolic blood pressure 101 mm[Hg] 101 mm[Hg] A [facility]) Body mass index (BMI) [Ratio] 42.2 kg/m2 42.2 k g/m2 DAIANA ([facility]) Body height 63 [in_i] 63 [in_i] DAIANA ([facility]) Diastolic blood pressure 72 mm[Hg] 72 mm[Hg] DAIANA ([facility]) Body weight 3251.04 [oz_av] 3251.04 [oz_av] ATH VAMSI ([facility]) Systolic blood pressure 102 mm[Hg] 102 mm[Hg] A [facility]) Body height 63 [in_i] 63 [in_i] DAIANA ([facility]) Diastolic blood pressure 79 mm[Hg] 79 mm[Hg] DAIANA ([facility]) Body weight 3251.04 [oz_av] 3251.04 [oz_av] ATH VAMSI ([facility]) Systolic blood pressure 102 mm[Hg] 102 mm[Hg] A [facility] ([facility]) Body height 63 [in_i] 63 [in_i] DAIANA ([facility]) Diastolic blood pressure 79 mm[Hg] 79 mm[Hg] DAIANA ([facility]) Patient Treatment Plan of Care Planned Activity Planned Date Details Description Data Source (s) Trazodone Hydrochloride 100 MG Oral Tablet DAIANA ([facility]) quetiapine 50 MG Oral Tablet DAIANA ([facility]) quetiapine 100 MG Oral Tablet DAIANA ([facility]) Prednisone 10 MG Oral Tablet DAIANA ([facility]) liothyronine sodium 0.005 MG Oral Tablet DAIANA ([facility]) Levothyroxine Sodium 0.1 MG Oral Tablet DAIANA ([facility]) gabapentin 600 MG Oral Tablet DAIANA ([facility]) gabapentin 300 MG Oral Capsule DAIANA ([facility]) doxycycline hyclate 100 MG Oral Tablet [facility] [facility] 24 HR Bupropion Hydrochloride 150 MG Extended Release Oral Tablet DAIANA ([facility])
[2020-05-21] MEDS ORDERED: BUSP5TA PO (16:10)
[2020-05-21] MEDS ORDERED: GABA800T4 PO (16:13)
[2020-05-21] MEDS ORDERED: SERO150T2 PO (16:13)
[2020-05-21] MEDS ORDERED: ALBUTEROL 90 MCG/ACT 8GM HFA INHALER INH SCH (17:00)
[2020-05-21 17:02] LABS: RSV AMPLIFICATION NEGATIVE (NEGATIVE)
[2020-05-21] MEDS: GABAPENTIN 400MG CAP PO SCH ×2 (17:44→21:38)
[2020-05-21] MEDS: QUEtiapine FUMARATE 25 MG TAB PO SCH (18:00)
[2020-05-21] MEDS ORDERED: QUEtiapine FUMARATE 25 MG TAB PO SCH ×2 (21:00)
[2020-05-21] MEDS ORDERED: GABAPENTIN 400MG CAP PO SCH (21:00)
[2020-05-21] MEDS ORDERED: traZODone 50 MG TAB PO SCH (21:00)
[2020-05-21] MEDS: busPIRone 5 MG TAB PO SCH (21:38)
[2020-05-21] MEDS: QUEtiapine FUMERATE XR 50 MG TABER PO SCH (21:39)
[2020-05-22] MEDS ORDERED: LEVOTHYROXINE 150MCG TABLET (0.15MG) PO SCH (06:00)
[2020-05-22] MEDS: ESCITALOPRAM OXALATE 10 MG TAB (LEXAPRO) PO SCH (08:55)
[2020-05-22] MEDS: QUEtiapine FUMARATE 25 MG TAB PO SCH ×3 (08:55→20:07)
[2020-05-22] MEDS: busPIRone 5 MG TAB PO SCH (08:55)
[2020-05-22] MEDS: GABAPENTIN 400MG CAP PO SCH ×3 (08:55→20:07)
[2020-05-22] MEDS ORDERED: buPROPion **XL** TABLET 150MG (WELLBUTRIN XL) PO SCH (09:00)
[2020-05-22] MEDS ORDERED: METHADONE 10 MG TAB (S0109) PO SCH (09:00)
[2020-05-22] MEDS ORDERED: MOM 30ML SUSPENSION UDC PO PRN (14:15)
[2020-05-22] MEDS ORDERED: MAALOX 30 ML SUSP *UDC PO PRN (14:15)
[2020-05-22] MEDS ORDERED: ACETAMINOPHEN TAB 650MG DOSE (2X325MG) PO PRN (14:15)
--- OUTSIDE RECORDS SUMMARY | 2020-05-22 14:29 | CCD ---
Author Author [facility] Organization [facility] Address Unknown Phone Unavailable Care Team Providers Care Csr Technician Name Role Phone MCELHERAN, GEOFF PA Unavailable [...] MCELHERAN, GEOFF PA Unavailable Unavailable Shena Taylor PHARMACY SCHEDULER PHARMACY SCHEDULER Unavailable Unavailable MCELHERAN, GEOFF PA Unavailable Unavailable [...] Unavailable Tanvi Mckeon Unavailable Damian Taylor Shena PHARMACY SCHEDULER-BC Unavailable Unavailable Taylor, F Shena PHARMACY SCHEDULER-BC Unavailable Unavailable Taylor, F Shena PHARMACY SCHEDULER-BC Unavailable Unavailable Taylor, F Shena PHARMACY SCHEDULER-BC Unavailable Unavailable Taylor, F Shena PHARMACY SCHEDULER-BC Unavailable Unavailable Taylor, F Shena PHARMACY SCHEDULER-BC Unavailable Unavailable Taylor, F Shena PHARMACY SCHEDULER-BC Unavailable Unavailable Taylor, F Shena PHARMACY SCHEDULER-BC Unavailable Unavailable Taylor, F Shena PHARMACY SCHEDULER-BC Unavailable Unavailable Taylor, F Shena PHARMACY SCHEDULER-BC Unavailable Unavailable Taylor, F Shena PHARMACY SCHEDULER-BC Unavailable Unavailable Taylor, F Shena PHARMACY SCHEDULER-BC Unavailable Unavailable Taylor, F Shena PHARMACY SCHEDULER-BC Unavailable Unavailable Taylor, F Shena PHARMACY SCHEDULER-BC Unavailable Unavailable Taylor, F Shena PHARMACY SCHEDULER-BC Unavailable Unavailable Taylor, F Shena PHARMACY SCHEDULER-BC Unavailable Unavailable Taylor, F Shena PHARMACY SCHEDULER-BC Unavailable Unavailable Taylor, F Shena PHARMACY SCHEDULER-BC Unavailable Unavailable Taylor, F Shena PHARMACY SCHEDULER-BC Unavailable Unavailable Taylor, F Shena PHARMACY SCHEDULER-BC Unavailable Unavailable Taylor, F Shena PHARMACY SCHEDULER-BC Unavailable Unavailable Taylor, F Shena PHARMACY SCHEDULER-BC Unavailable Unavailable Kinza Richter MD Unavailable Unavailable [...] Unavailable Kinza Richter MD Unavailable Unavailable Kinza Richtre MD Unavailable Unavailable Kinza Richter MD Unavailable [...] Ariella PA Unavailable Unavailable Presley, A Re PHARMACY SCHEDULER Unavailable Unavailable Presley, A Re PHARMACY SCHEDULER Unavailable Unavailable Presley, A Re PHARMACY SCHEDULER Unavailable Unavailable Presley, A Re PHARMACY SCHEDULER Unavailable Unavailable Presley, A Re PHARMACY SCHEDULER Unavailable Unavailable Presley, A Re PHARMACY SCHEDULER Unavailable Unavailable Presley, A Re PHARMACY SCHEDULER Unavailable Unavailable [place]olah, A Re PHARMACY SCHEDULER Unavailable Unavailable [place], A Re PHARMACY SCHEDULER Unavailable Unavailable [place], A Re PHARMACY SCHEDULER Unavailable Unavailable [place], A Re PHARMACY SCHEDULER Unavailable Unavailable [place], A Re PHARMACY SCHEDULER Unavailable Unavailable [place], A Re PHARMACY SCHEDULER Unavailable Unavailable [place], A Re PHARMACY SCHEDULER Unavailable Unavailable [place], A Re PHARMACY SCHEDULER Unavailable Unavailable [place], A Re PHARMACY SCHEDULER Unavailable Unavailable [place], A Re PHARMACY SCHEDULER Unavailable Unavailable [place], A Re PHARMACY SCHEDULER Unavailable Unavailable [place], A Re PHARMACY SCHEDULER Unavailable Unavailable [place], A Re PHARMACY SCHEDULER Unavailable Unavailable [place], A Re PHARMACY SCHEDULER Unavailable Unavailable [place], A Re PHARMACY SCHEDULER Unavailable Unavailable Presley, A Re PHARMACY SCHEDULER Unavailable Unavailable [place], A Re PHARMACY SCHEDULER Unavailable Unavailable [place], A Re PHARMACY SCHEDULER Unavailable Unavailable Presley, A Re PHARMACY SCHEDULER Unavailable Unavailable Presley, A Re PHARMACY SCHEDULER Unavailable Unavailable Presley, A Re PHARMACY SCHEDULER Unavailable Unavailable Radha Hurst MD Unavailable Unavailable [...] Hurst MD Unavailable Unavailable DAREK, H HARMAN CEMENT SIDE LASTER Unavailable Unavailable DAREK, H HARMAN CEMENT SIDE LASTER Unavailable Unavailable DAREK, H HARMAN CEMENT SIDE LASTER Unavailable Unavailable DAREK, H HARMAN CEMENT SIDE LASTER Unavailable Unavailable DAREK, H HARMAN CEMENT SIDE LASTER Unavailable Unavailable DAREK, H HARMAN CEMENT SIDE LASTER Unavailable Unavailable DAREK, H HARMAN CEMENT SIDE LASTER Unavailable Unavailable Jesus Chely Unavailable Presley, Re PHARMACY SCHEDULER PHARMACY SCHEDULER Unavailable Unavailable Presley, A Re PHARMACY SCHEDULER Unavailable Unavailable Presley, A Re PHARMACY SCHEDULER Unavailable Unavailable Presley, A Re PHARMACY SCHEDULER Unavailable Unavailable Presley, A Re PHARMACY SCHEDULER Unavailable Unavailable Presley, A Re PHARMACY SCHEDULER Unavailable Unavailable Presley, A Re PHARMACY SCHEDULER Unavailable Unavailable Presley, A Re PHARMACY SCHEDULER Unavailable Unavailable Presley, A Re PHARMACY SCHEDULER Unavailable Unavailable Presley, A Re PHARMACY SCHEDULER Unavailable Unavailable Presley, A Re PHARMACY SCHEDULER Unavailable Unavailable Presley, A Re PHARMACY SCHEDULER Unavailable Unavailable Presley, A Re PHARMACY SCHEDULER Unavailable Unavailable Presley, A Re PHARMACY SCHEDULER Unavailable Unavailable Presley, A Re PHARMACY SCHEDULER Unavailable Unavailable Presley, A Re PHARMACY SCHEDULER Unavailable Unavailable Presley, A Re PHARMACY SCHEDULER Unavailable Unavailable Presley, A Re PHARMACY SCHEDULER Unavailable Unavailable Presley, A Re PHARMACY SCHEDULER Unavailable Unavailable Presley, A Re PHARMACY SCHEDULER Unavailable Unavailable Presley, A Re PHARMACY SCHEDULER Unavailable Unavailable Presley, A Re PHARMACY SCHEDULER Unavailable Unavailable Presley, A Re PHARMACY SCHEDULER Unavailable Unavailable Presley, A Re PHARMACY SCHEDULER Unavailable Unavailable Presley, A Re PHARMACY SCHEDULER Unavailable Unavailable Presley, A Re PHARMACY SCHEDULER Unavailable Unavailable Presley, A Re PHARMACY SCHEDULER Unavailable Unavailable Presley, A Re PHARMACY SCHEDULER Unavailable Unavailable Presley, A Re PHARMACY SCHEDULER Unavailable Unavailable RICHARD, F CLAUDIA DO Unavailable [...] F CLAUDIA DO Unavailable Unavailable RICHARD, F CLUADIA DO Unavailable Unavailable RICHARD, F CLAUDIA DO [...] is protected by Article 27-F of the [place] State Public Health law. If you continue you may have access to information: Regarding HIV / AIDS; Provided by facilities licensed or operated by the [facility] Office of Mental Health; or Provided by the [facility] Office for People With Developmental Disabilities. If such information is present, then the following [facility] mandated warning applies: This information has [...] law may result in a fine or residential sentence or both. A general authorization for the release of medical or other information is NOT sufficient authorization for further disc losure. Allergies and Adverse Reactions Type Description Substance Reaction Status Data Source(s ) Propensity to adverse reactions to substance nkda 24 HR Bupropion Hydrochloride 150 MG Extended Release Oral Tablet Active [facility] ([facility]) Allergy to substance Allergy to substance Allergy to substance [facility] ([facility]) Encounters Encounter Providers Location Date Indications Data Source(s ) Outpatient 08/21/2020 12:00:00 AM [facility] Outpatient 08/21/2020 12:00:00 AM [facility] Extended Individual Psychotherapy - 45 min Attender: Bharti Mckeon [facility] 05/07/2020 09:30:00 AM EST - 05/07/2020 09:30:00 AM EST [facility] ([facility]) Attender: Tanvi Mckeon 05/07/2020 12:00:00 AM EST [facility] ([facility]) ALMA Johnson: [address] [place] [address], Ph. Attender: Re CHONG [facility] Medical 04/27/2020 12:00:00 AM EST [facility] ([facility]) Outpatient Attender: ARLETTE CHONG 02/28/2020 09:05:01 A M EST [facility] ANGELA oJhnsonBC: [address] [place] [address], Ph. Attender: Re CHONG [facility] Medical 02/28/2020 12:00:00 AM EST [facility] ([facility]) ARLETTE Johnson-: [address] [place] [address], Ph. Attender: Re CHONG [facility] Medical 02/28/2020 12:00:00 AM EST [facility] ([facility]) Outpatient Attender: ARLETTE MARQUIS 12/21/2019 12:02:30 A M EDT [facility] Outpatient Attender: ARLETTE MARQUIS 12/20/2019 10:54:01 A M EDT [facility] Outpatient Attender: ARLETTE MARQUIS 12/20/2019 12:02:15 A M EDT [facility] Outpatient Attender: ARLETTE MARQUIS 12/19/2019 10:41:01 A M EDT [facility] Outpatient Attender: Re CHONG FP 12/11/2019 03:1 4:02 PM EDT [facility] Outpatient Attender: ARLETTE MARQUIS 12/11/2019 03:14:00 P M EDT [facility] Outpatient Attender: ARLETTE MARQUIS 12/11/2019 03:13:02 P M EDT [facility] Outpatient Attender: Re MARQUIS 12/11/2019 03:1 3:01 PM EDT [facility] Outpatient Attender: ARLETTE MARQUIS 10/25/2019 09:04:01 A M EDT [facility] Outpatient Attender: ARLETTE MARQUIS 10/21/2019 01:47:01 P M EDT [facility] Outpatient Attender: ARLETTE MARQUIS 10/18/2019 08:29:00 A M EDT [facility] Outpatient Attender: Re MARQUIS 10/11/2019 03:5 3:01 PM EDT [facility] Outpatient Attender: ARLETTE MARQUIS 10/11/2019 12:02:08 A M EDT [facility] Outpatient Attender: ARLETTE MARQUIS 10/10/2019 10:33:00 A M EDT [facility] Outpatient Attender: Ariella CHRISTIE Physical Therapy 02:00:00 PM EDT [facility] ([facility]) Outpatient Attender: ARLETTE Sherwood PHARMACY SCHEDULER FP 09/22/2019 12:02:15 A M EDT [facility] Outpatient Attender: ARLETTE LARSENP FP 09/21/2019 11:06:01 A M EDT [facility] Outpatient Attender: ARLETTE LARSENP FP 09/21/2019 11:05:01 AM EDT [facility] Outpatient Attender: GEOFF CHRISTIE Physical Therapy 09/21/2019 09:00:00 AM EDT [facility] ([facility]) Outpatient Referrer: GEOFF [...] ARLETTE CHONG FP 09/13/2019 07:55:21 PM EDT [facility] Outpatient Attender: Shena CHONG-BC FP 09/13/2019 10: 03:02 AM EDT [facility] Outpatient Attender: ARLETTE CHONG FP 09/10/2019 12:02:09 AM EDT [facility] Outpatient Attender: ARLETTE CHONG FP 09/09/2019 11:34:01 AM EDT [facility] Outpatient Attender: ARLETTE CHONG FP 09/05/2019 12:02:09 AM EDT [facility] Outpatient 08/26/2019 05:17:00 AM EDT [facility] Outpatient Attender: ARLETTE CHONG FP 08/23/2019 03:05:02 PM EDT [facility] OFFICE OUTPATIENT NEW 30 MINUTES Attender: GEOFF CHRISTIE Physical Therapy 08/23/2019 01:00:00 PM EDT [facility] ([facility]) Outpatient Attender: ARLETTE CHONG FP 08/19/2019 04:36:00 PM EDT [facility] Outpatient Attender: Shena MILLERBC FP 08/19/2019 04: 35:02 PM EDT [facility] Outpatient Attender: ARLETTE CHONG FP 08/19/2019 03:55:00 PM EDT [facility] Outpatient Attender: ARLETTE CHONG FP 08/18/2019 09:51:01 AM EDT [facility] Outpatient Attender: Shena MILLERBC FP 08/15/2019 12: 03:01 PM EDT [facility] Outpatient Attender: ARLETTE CHONG FP 08/15/2019 09:44:01 AM EDT [facility] Outpatient Attender: Shena MARQUEZ FP 08/10/2019 09: 42:02 AM EDT [facility] Outpatient Attender: ARLETTE CHONG FP 08/09/2019 01:16:00 PM EDT [facility] Outpatient Attender: Shena MILLERBC FP 08/05/2019 09: 32:00 AM EDT [facility] Outpatient Attender: ARLETTE CHONG FP 08/05/2019 08:43:00 AM EDT [facility] Outpatient 07/23/2019 07:14:00 AM EDT [facility] Outpatient Attender: Shena MILLERBC FP 07/06/2019 09: 09:01 AM EDT [facility] Outpatient Referrer: Radha Hurst MD 06/13/2019 12:00:00 AM EDT [facility] Outpatient Attender: ARLETTE MARQUIS 05/27/2019 02:46:00 PM [facility] Outpatient Attender: ARLETTE MARQUIS 05/20/2019 08:02:03 PM [facility] Outpatient 05/14/2019 07:55:00 PM [facility] Emergency Attender: CLAUDIA RAMIREZ DOConsultant: Karl Richter MD 05/14/2019 07:40:00 PM EST - 05/14/2019 10:59:00 PM [facility] Patient discharged. Outpatient Attender: Shena MARQUEZ FP 05/10/2019 10: 03:01 AM [facility] Brief Individual Psychotherapy - 30 min Attender: Chely hills [facility] 05/09/2019 01:00:00 AM EST - 05/09/2019 01:00:00 AM EST [facility] ([facility]) Attender: Chely Lee 05/09/2019 12:00:00 AM EST [facility] ([facility]) Outpatient Attender: Shena MARQUEZ FP 05/06/2019 09: 40:01 AM [facility] Outpatient Attender: ARLETTE MARQUIS 05/04/2019 02:39:00 PM [facility] Outpatient Attender: HARMAN GARCIA NP [facility] boggs 05/04/2019 09:30:00 AM EST - 05/04/2019 09:30:00 AM EST [facility] ([facility]) Attender: HARMAN GARCIA NP 05/04/2019 12:00:00 AM EST [facility] ([facility]) Outpatient 05/01/2019 05:55:00 PM [facility] Outpatient Attender: Shena MARQUIS 04/25/2019 08: 47:02 AM [facility] Outpatient Attender: ARLETTE MARQUIS 04/25/2019 08:43:01 AM [facility] Brief Individual Psychotherapy - 30 min Attender: Christiane herzog [facility] 04/25/2019 08:00:00 AM EST - 04/25/2019 08:00:00 AM EST [facility] ([facility]) Attender: Christiane Alvarenga 04/25/2019 12:00:00 AM EST [facility] ([facility]) [facility]: [facility] 01:52:00 PM [facility] 03/28/2019 02:43:00 PM [facility] Outpatient Attender: Shena Brandon LARSENP-BC 03/25/2019 02: 47:01 PM [facility] 03/25/2019 11:09:01 AM [facility] Outpatient Attender: Shena Brandon PHARMACY SCHEDULER-BC 03/24/2019 10: 21:03 AM [facility] Medications Medication Brand Name Start Date Product Form Dose Route Admi nistrative Instructions Pharmacy Instructions Status Indications Reaction Description Data Source(s) gabapentin 800 MG Oral Tablet Gabapentin 08/23/2019 12:00:00 AM EDT ORAL active [facility] ([facility]) 150 mcg 08/18/2019 12:00:00 AM EDT tablet 10 TAKE ONE TABLET BY MOUTH EVERY DAY TAKE ONE TABLET BY MOUTH EVERY DAY SOLD: 08/18/2019 [facility] quetiapine 25 MG Oral Tablet [Seroquel] Seroquel 05/24/2019 12: 00:00 AM EST 25 mg completed [id number] Seroquel 05/24/2019 30 25 mg tablet 01791 [id number] Harman Garcia [id number] Nurse Practitioner [facility] ([facility]) Trazodone Hydrochloride 150 MG Oral Tablet trazodone 04/20 12:00:00 AM EST 150 mg completed 139356 trazodone 04/20/2019 150 mg tablet 22293 [id number] Harman Garcia [id number] Nurse Beulah martinez [facility] ([facility]) gabapentin 600 MG Oral Tablet gabapentin 04/20/2019 12:00:00 AM EST 600 mg completed [id number] gabapentin 04/20/2019 600 m g tablet 89560 786853 [id number] Harman Garcia [id number] Nurse Practitioner [facility] ([facility]) Propranolol Hydrochloride 10 MG Oral Tablet propranolol 04/20/2019 12:00:00 AM EST 10 mg completed [id number] propranolol 0 10 mg tablet 85770 148414 [id number] Harman Garcia [id number] Nurse Beulah maciaser [facility] ([facility]) Escitalopram 10 MG Oral Tablet [Lexapro] Lexapro 03/22/2019 12 :00:00 AM EST 10 mg by mouth completed [id number] Lexapro by mouth [id number] 03/22/2019 05/21/2019 every morning 30 10 mg tablet 81923 811473 [id number] Harman Garcia [id number] Nurse Practitioner [facility] ([facility]) quetiapine 25 MG Oral Tablet [Seroquel] Seroquel 03/22/2019 12: 00:00 AM EST 25 mg by mouth completed [id number] Seroquel by mouth [id number] 03/22/2019 05/21/2019 three times a day 30 25 mg tablet 05098 [id number] Harman Garcia [id number] Nurse Practitioner [facility] ([facility]) Propranolol Hydrochloride 10 MG Oral Tablet propranolol 02/22/2019 12:00:00 AM EST 10 mg by mouth completed 385663 propranolol by [facility] [id number] 02/22/2019 03/24/2019 twice a day 30 10 mg tablet 50578 [id number] Harman Garcia [id number] Psychiatric/Mental Health [facility] ([facility]) Propranolol Hydrochloride 10 MG Oral Tablet propranolol 02/22/2019 12:00:00 AM EST 10 mg by mouth completed 210477 propranolol by [facility] [id number] 02/22/2019 03/24/2019 twice a day 30 10 mg tablet 08591 127884 14 [id number] Harman Garcia [id number] Nurse Practitioner [facility] ([facility]) gabapentin 600 MG Oral Tablet gabapentin 02/08/2019 12:00:00 AM EST 600 mg by mouth completed 503033 gabapentin by mouth [id number] 201803/24/2019 three times a day 30 600 mg tablet 34548 935254 [id number] Harman Garcia [id number] Psychiatric/Mental Health [facility] ([facility]) Clonidine Hydrochloride 0.3 MG Oral Tablet clonidine HCl 02/08/2019 12:00:00 AM EST 0.3 mg by mouth completed 530924 clonidine HCl by mouth [id number] 02/08/2019 04/09/2019 twice a day 30 0.3 mg tablet 61655 369501 1 [id number] Harman Garcia [id number] Psychiatric[facility]Mental [facility] ([facility]) gabapentin 600 MG Oral Tablet gabapentin 02/08/2019 12:00:00 AM EST 600 mg by mouth completed 242716 gabapentin by mouth [id number] 201803/24/2019 three times a day 30 600 mg tablet 80672 993957 [id number] Harman Garcia [id number] Nurse Practitioner [facility] ([facility]) Clonidine Hydrochloride 0.3 MG Oral Tablet clonidine HCl 02/08/2019 12:00:00 AM EST 0.3 mg by mouth completed 575662 clonidine HCl by mouth [id number] 02/08/2019 04/09/2019 twice a day 30 0.3 mg tablet 60967 356132 1 [id number] Harman Garcia [id number] Nurse Practitioner [facility] ([facility]) Escitalopram 20 MG Oral Tablet [Lexapro] Lexapro 02/08/2019 12 :00:00 AM EST 20 mg completed [id number] Lexapro 02/08/201903/06 once a day 30 20 mg tablet 92019 603955 [id number] Harman Garcia [id number] Psychiatric/Mental Health [facility] ([facility]) Escitalopram 20 MG Oral Tablet [Lexapro] Lexapro 02/08/2019 12 :00:00 AM EST 20 mg completed 533498 Lexapro 02/08/201903/06 once a day 30 20 mg tablet 96593 827339 [id number] Harman Garcia [id number] Nurse Practitioner [facility] ([facility]) Levothyroxine Sodium 0.1 MG Oral Tablet levothyroxine 100 mcg tablet TAKE TWO TABLETS BY MOUTH @6AM levothyroxine 100 mcg tablet TAKE TWO TA BLETS BY MOUTH @6AM completed levothyroxine so dium 0.1 MG Oral Tablet [facility] ([facility]) 24 HR Bupropion Hydrochloride 150 MG Ext ended Release Oral Tablet bupropion HCl XL 150 mg 24 hr tablet, extended release bupropion HCl XL 150 mg 24 hr tablet, extended release completed 24 HR bupropion hydrochloride 150 MG Extended Release Oral Tablet [facility] ([facility]) gabapentin 300 MG Oral Capsule gabapenti n 300 mg capsule TAKE TWO CAPSULES BY MOUTH THREE TIMES DAILY gabapentin 300 mg capsule TAKE TWO CAPSU LES BY MOUTH THREE TIMES DAILY completed adi pentin 300 MG Oral Capsule [place] ([facility]) Trazodone Hydrochloride 100 MG Oral Tablet trazodone 1 00 mg tablet trazodone 100 mg tablet completed trazodone h ydrochloride 100 MG Oral Tablet [place] ([facility]) Prednisone 10 MG Oral Tablet prednisone 10 [...] completed p rednisone 10 MG Oral Tablet [place] ([facility]) quetiapine 100 MG Oral Tablet quetiapine 100 mg tablet TAKE ONE TABLET BY MOUTH AT BEDTIME quetiapine 100 mg tablet TAKE ONE TABLET BY MOUTH AT BEDTIME completed quetiapine 100 MG Oral Ta blet [place] ([facility]) doxycycline hyclate 100 MG Oral Tablet d oxycycline hyclate 100 mg tablet TAKE ONE TABLET BY MOUTH TWICE DAILY FOR mrsa doxycycline hyclate 100 mg tablet TAKE ONE TABLET BY MOUTH TWICE DAILY FOR mrsa completed doxycycline hyclate 100 MG Oral Tablet [facility] ([facility]) liothyronine sodium 0.005 MG Oral Tablet liothyronine 5 mcg tablet liothyronine 5 mcg tablet completed liothyron ine sodium 0.005 MG Oral Tablet [place] ([facility]) quetiapine 50 MG Oral Tablet quetiapine 50 mg tablet TAKE ONE TABLET BY MOUTH TWICE DAILY quetiapine 50 mg tablet TAKE ONE TABLET BY MOUTH TWICE DAILY completed quetiapine 50 MG Ora l Tablet [facility] ([facility]) gabapentin 600 MG Oral Tablet gabapentin 600 mg tablet TAKE ONE TABLET BY MOUTH THREE TIMES DAILY gabapentin 600 mg tablet TAKE ONE TABLET BY MOUTH THREE TIMES DAILY completed gabapentin 600 M G Oral Tablet [facility] ([facility]) Insurance Providers Payer name Policy type / Coverage type Policy ID Covered republican ID Covered republican's relationship to francois Policy Francois Plan Information BERNARD [id number] SP [id number] BERNARD I [id number] Self [id number] [place] O [id number] S [id number] Managed Care Bernard P [id number] S [id number] Medicaid S [id number] S [id number] Medicaid S [id number] S [id number] [place] XIX MAN -PHYSICIAN [id number] MEDICAID -PHYSICIAN [id number] [place] -OP [id number] 18 [id number] MEDICAID -O/P EMERGENCY ROOM [id number] MEDICAID [id number] SP [id number] Medicaid P [id number] S [id number] BERNARD [id number] SP [id number] [employer] COMMUNITY PLAN MCDO [id number] SP [id number] [facility] E[facility] [id number] SP [id number] Managed Care - [facility] Community Plan P [id number] S [id number] [facility](MCAID[facility] O [id number] S [id number] [facility] ELENA [id number] SP [id number] [facility]) O [id number] S [id number] [facility] COMMUNITY PLAN [facility] [id number] SP [id number] SELF PAY ONLY [id number] SP [id number] Medicaid [place] Medigap Part B [id number] Self [id number] [facility] Health Maintenance Organization (HMO) [id number] Self [id number] [facility] COMMUNITY PLAN [facility] [id number] SP [id number] Managed Care - Community Plan [facility] P [id number] S [id number] PENDING [employer] INSURANCE [id number] SP [id number] Medicaid [place] Medicaid [id number] Self [id number] SELF PAY ONLY [id number] SP [id number] Medicaid [place] Medicaid [id number] Self [id number] [facility] SPINNER FIXER DEPT [facility] [id number] SP [facility] [id number] Managed Care - Community Plan [employer] P [id number] S [id number] Medicaid S [id number] S [id number] Managed Care - Community Plan United [employer] P [id number] S [id number] [employer] COMMUNITY PLAN MCDHMO [id number] SP [id number] [facility](MCAID) O [id number] S [id number] [employer] COMMUNITY PLAN MCDHMO [id number] SP [id number] MEDICAID M [id number] MEDICAID [id number] SP [id number] [employer] COMMUNITY PLAN MCDHMO [id number] SP [id number] UNHC AMERICHOICE XIX -HMO [id number] 18 [id number] [facility] [id number] SP [id number] BLUE CROSS BLUE SHIELD-O/P [id number] 18 [id number] BLUE CROSS BLUE SHIELD-PHYSICIAN [id number] MEDICAID [id number] SP [id number] [employer] COMMUNITY PLAN MCDHMO [id number] SP [id number] BLUE [employer]OSS [place] PLAN [id number] SP [id number] HMO BLUE [id number] SP [id number] O BLUE [id number] SP [id number] Problems, Conditions, and Diagnoses Code Display Name Description Problem Type Effective Dates Data Source(s) Z72.0 Tobacco use Tobacco Use Disorder, Mild Condition 0 05/07/2020 12:00:00 AM EST [facility] ([facility]) F12.10 Cannabis abuse, uncomplicated Cannabis Use Disorder, M ild Condition 05/07/2020 12:00:00 AM EST [facility] ([facility]) F11.10 Opioid abuse, uncomplicated Opioid Use Disorder, Mild Condition 05/07/2020 12:00:00 AM EST [facility] ([facility]) F10.10 Alcohol abuse, uncomplicated Alcohol Use Disorder, Mil d Condition 05/07/2020 12:00:00 AM EST [facility] ([facility]) F32.9 Major depressive disorder, single episod e, unspecified Unspecified depressive Disorder Condition 05/07/2020 12:00:00 AM EST [facility] ([facility]) 244.9 Hypothyroidism Hypothyroidism 08/19/2019 04:34: 05 PM EDT [facility] M84.472A Pathological fracture, left ankle, initi al encounter for fracture Pathological fracture, left ankle, initial encounter for fracture 08/19/2019 04:34:05 PM EDT [facility] [id number] Pathological fracture - ankle and/or krystal t Pathological Fracture - Ankle And/or Foot Problem 08/19/2019 12:00:00 AM EDT DA[facility] ([facility]) [id number] Pathological fracture - ankle and/or krystal t Pathological Fracture - Ankle And/or Foot Problem 08/19/2019 12:00:00 AM EDT [place] ([facility]) F10.20 Alcohol dependence, uncomplicated Alcohol Use Di sorder, Moderate Condition 05/09/2019 12:00:00 AM EST [facility] ([facility]) F43.8 Other reactions to severe stress Other S 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 05/09/2019 12:00:00 AM EST [facility] ([facility]) F33.1 Major depressive disorder, recurrent, mo derate Major Depressive Disorder, Recurrent episode, Moderate Condition 05/09/2019 12:00:00 AM EST [facility] ([facility]) F91412 Nicotine dependence, cigarettes, uncompl icated Nicotine dependence, cigarettes, uncomplicated Diagnosis 05/14/2019 07:40:00 PM [facility] N3001 Acute cystitis with hematuria Acute cystitis with lj turia Diagnosis 05/14/2019 07:40:00 PM [facility] R55 Syncope and collapse Syncope and collapse Diagnosis 05/14/2019 07:40:00 PM [facility] Surgeries/Procedures Procedure Description Date Indications Data Source(s) Extended Individual Psychotherapy - 45 min 05/07/2020 12:00:00 AM EST - 05/07/2020 12:00:00 AM EST [facility] ([facility]) Extended Individual Psychotherapy - 45 min 1 12:00:00 AM EST [facility] ([facility]) APPLICATION SHORT LEG CAST BELOW KNEE-TOE 09/27/2019 1 2:00:00 AM EDT [facility] ([facility]) FX Bimalleolar Ankle W/O Manipulation 09/21/2019 12:00 :00 AM EDT [facility] ([facility] ) RADEX ANKLE COMPLETE MINIMUM 3 VIEWS 09/21/2019 12:00: 00 AM EDT [facility] ([facility] ) APPLICATION SHORT LEG CAST BELOW KNEE-TOE 08/23/2019 1 2:00:00 AM EDT [facility] ([facility] ) RADEX ANKLE COMPLETE MINIMUM 3 VIEWS 08/23/2019 12:00: 00 AM EDT [facility] ([facility] ) Brief Individual Psychotherapy - 30 min 05/09/2019 12:00:00 AM EST - 05/09/2019 12:00:00 AM EST [facility] ([facility]) Brief Individual Psychotherapy - 30 min 05/09/2019 12: 00:00 AM EST [facility] ([facility]) OFFICE OUTPATIENT VISIT 15 MINUTES 05/04 12:00:00 AM EST - 05/04/2019 12:00:00 AM EST [facility] ([facility]) OFFICE OUTPATIENT VISIT 15 MINUTES 05/04/2019 12:00:00 AM EST [facility] ([facility]) Brief Individual Psychotherapy - 30 min 04/25/2019 12:00:00 AM EST - 04/25/2019 12:00:00 AM EST [facility] ([facility]) Brief Individual Psychotherapy - 30 min 04/25/2019 12: 00:00 AM EST [facility] ([facility]) Results ID Date Data Source [id number] 03/05/2020 06:37:00 AM EST DAIANA ([facility]) Name Value Range Interpretation Code Description Data Miya rce(s) Supporting Document(s) white blood count 5.4 10 4.0-10.0 normal White Blood Count [facility]NA ([facility]) red blood count 4.20 10 4.00-5.40 normal Red Blood Count ATHE NA ([facility]) hemoglobin 12.1 g/dL 12.0-15.5 normal Hemoglobin [facility] ([facility]) hematocrit 39.0 % 36.0-47.0 normal Hematocrit [facility] ([facility]) mean corpuscular hemoglobin 28.8 pg 27.0-33.0 normal Mean Corpuscular Hemoglobin [facility]NA ([facility]) mean corpuscular volume 92.9 fL 80.0-96.0 normal Mean Corpusc ular Volume [place] ([facility]) mean corpuscular HGB conc 31.0 g/dL 32.0-36.5 Below low zeeshan l Mean Corpuscular HGB Conc [place] ([facility]) platelet count, automated 97 10 150-450 Below low zeeshan l Platelet Count, Automated [facility] ([facility]) red cell distribution width 14.2 % 11.5-14.5 normal Red Cell Distribution Width [place] ([facility]) nucleated red blood cell % 0.4 % 0-0 Above high nor mal Nucleated Red Blood Cell % [place] ([facility]) ID Date Data Source [id number] 03/05/2020 06:37:00 AM EST DAIANA ([facility]) Name Value Range Interpretation Code Description Data Miya rce(s) Supporting Document(s) magnesium level 2.0 mg/dL 1.8-2.4 normal Magnesium Level ATHE DANIA ([facility]) ID Date Data Source [id number] 03/05/2020 06:37:00 AM EST [place] ([facility]) Name Value Range Interpretation Code Description Data Miya rce(s) Supporting Document(s) glucose, fasting 97 mg/dL 70-100 normal Glucose, Fasting AT [facility] ([facility]) blood urea nitrogen 10 mg/dL 7-18 normal Blood Urea Nitro gen DA[facility]NA ([facility]) creatinine for GFR 1.57 mg/dL 0.55-1.30 Above high normal Creatinine for GFR [place] ([facility]) sodium level 143 mEq/L 136-145 normal Sodium Level DA[facility]NA ([facility]) glomerular filtration rate >60 Below low normal Deonna merular Filtration Rate [facility] ([facility]) potassium serum 3.5 mEq/L 3.5-5.1 normal Potassium Serum ATHE NA ([facility]) chloride level 110 mEq/L 98-107 Above high normal Chloride Level [facility] ([facility]) carbon dioxide level 26 mEq/L 21-32 normal Carbon Dioxide Level [facility] ([facility]) anion gap 7 mEq/L 8-16 Below low normal Anion Gap DA[facility]NA ( [facility]) calcium level 8.5 mg/dL 8.5-10.1 normal Calcium Level [facility] ( [facility]) ID Date Data Source [id number] 03/05/2020 06:37:00 AM EST [facility]) Name Value Range Interpretation Code Description Data Miya rce(s) Supporting Document(s) immature platelet fraction % 1.3 % 0.0-9.59 normal Immatur e Platelet Fraction % [facility]NA ([facility]) ID Date Data Source [id number] 03/04/2020 04:50:00 AM EST [facility]) Name Value Range Interpretation Code Description Data Miya rce(s) Supporting Document(s) white blood count 4.4 10 4.0-10.0 normal White Blood Count [facility] ([facility]) red blood count 4.12 10 4.00-5.40 normal Red Blood Count AT[facility] ([facility]) hemoglobin 11.9 g/dL 12.0-15.5 Below low normal Hemoglobin [facility] ( [facility]) hematocrit 39.4 % 36.0-47.0 normal Hematocrit [facility] ([facility]) mean corpuscular hemoglobin 28.9 pg 27.0-33.0 normal Mean Corpuscular Hemoglobin [facility] ([facility]) mean corpuscular volume 95.6 fL 80.0-96.0 normal Mean Corpusc ular Volume [facility] ([facility]) red cell distribution width 14.2 % 11.5-14.5 normal Red Cell Distribution Width [facility] ([facility]) mean corpuscular HGB conc 30.2 g/dL 32.0-36.5 Below low zeeshan l Mean Corpuscular HGB Conc [facility] ([facility]) platelet count, automated 101 10 150-450 Below low zeeshan l Platelet Count, Automated [facility] ([facility]) nucleated red blood cell % 0.0 % 0-0 normal Nucleated Red Blood Cell % [facility] ([facility]) ID Date Data Source [id number] 03/04/2020 04:49:00 AM EST [place] ([facility]) Name Value Range Interpretation Code Description Data Miya rce(s) Supporting Document(s) magnesium level 2.1 mg/dL 1.8-2.4 normal [facility] ID Date Data Source [id number] 03/04/2020 04:49:00 AM EST [place] ([facility]) Name Value Range Interpretation Code Description Data Miya rce(s) Supporting Document(s) glucose, fasting 86 mg/dL 70-100 normal Glucose, Fasting AT [facility]) blood urea nitrogen 8 mg/dL 7-18 normal Blood Urea Nitro gen DA[facility]NA ([facility]) creatinine for GFR 1.57 mg/dL 0.55-1.30 Above high normal Creatinine for GFR [facility] ([facility]) glomerular filtration rate >60 Below low normal Deonna merular Filtration Rate [facility] ([facility]) potassium serum 3.8 mEq/L 3.5-5.1 normal Potassium Serum ATHE NA ([facility]) sodium level 145 mEq/L 136-145 normal Sodium Level [facility] ([facility]) chloride level 111 mEq/L 98-107 Above high normal Chloride Level [facility] ([facility]) carbon dioxide level 30 mEq/L 21-32 normal Carbon Dioxide Level [place] ([facility]) anion gap 4 mEq/L 8-16 Below low normal Anion Gap [place] ( [facility]) calcium level 8.2 mg/dL 8.5-10.1 Below low normal Calcium Level AT [facility] ([facility]) ID Date Data Source [id number] 03/03/2020 04:32:00 AM EST DA[place] ([facility]) Name Value Range Interpretation Code Description Data Miya rce(s) Supporting Document(s) T uptake 30 % 30-39 normal T Uptake DA[facility]NA ([facility]) thyroxine (T4) 5.2 ug/dL 4.5-12.0 normal Thyroxine (T4) [place] ([facility]) free thyroxine index 1.6 % 1.3-4.8 normal Free Thyroxine Index [place] ([facility]) thyroid stimulating hormone 164.000 uIU/mL 0.358-3.740 Above high normal Thyroid Stimulating Hormone [place] ([facility]) ID Date Data Source [id number] 03/03/2020 04:32:00 AM EST DA[facility] ([facility]) Name Value Range Interpretation Code Description Data Miya rce(s) Supporting Document(s) magnesium level 2.1 mg/dL 1.8-2.4 normal Magnesium Level ATHI[facility] ([facility]) ID Date Data Source [id number] 03/03/2020 04:32:00 AM EST [facility]) Name Value Range Interpretation Code Description Data Miya rce(s) Supporting Document(s) blood urea nitrogen 8 mg/dL 7-18 normal Blood Urea Nitro gen [facility] ([facility]) glucose, fasting 70 mg/dL 70-100 normal Glucose, Fasting AT [facility] ([facility]) creatinine for GFR 1.48 mg/dL 0.55-1.30 Above high normal Creatinine for GFR [place] ([facility]) glomerular filtration rate >60 Below low normal Deonna merular Filtration Rate [facility] ([facility]) potassium serum 3.6 mEq/L 3.5-5.1 normal Potassium Serum ATHE NA ([facility]) sodium level 144 mEq/L 136-145 normal Sodium Level [facility] ([facility]) chloride level 111 mEq/L 98-107 Above high normal Chloride Level [facility] ([facility]) anion gap 4 mEq/L 8-16 Below low normal Anion Gap [place] ( [facility]) carbon dioxide level 29 mEq/L 21-32 normal Carbon Dioxide Level [place] ([facility]) calcium level 8.0 mg/dL 8.5-10.1 Below low normal Calcium Level AT [facility]) ID Date Data Source [id number] 03/03/2020 04:32:00 AM EST [place] ([facility]) Name Value Range Interpretation Code Description Data Miya rce(s) Supporting Document(s) white blood count 4.7 10 4.0-10.0 normal White Blood Count [place] ([facility]) red blood count 3.99 10 4.00-5.40 Below low normal Red Blood Coun t [place] ([facility]) hematocrit 38.3 % 36.0-47.0 normal Hematocrit [place] ([facility]) hemoglobin 11.6 g/dL 12.0-15.5 Below low normal Hemoglobin [place] ( [facility]) mean corpuscular volume 96.0 fL 80.0-96.0 normal Mean Corpusc ular Volume [place] ([facility]) mean corpuscular hemoglobin 29.1 pg 27.0-33.0 normal Mean Corpuscular Hemoglobin [facility] ([facility]) red cell distribution width 14.3 % 11.5-14.5 normal Red Cell Distribution Width [facility] ([facility]) mean corpuscular HGB conc 30.3 g/dL 32.0-36.5 Below low zeeshan l Mean Corpuscular HGB Conc [facility] ([facility]) nucleated red blood cell % 0.0 % 0-0 normal Nucleated Red Blood Cell % [place] ([facility]) platelet count, automated 111 10 150-450 Below low zeeshan l Platelet Count, Automated [facility]) ID Date Data Source [id number] 03/03/2020 04:24:00 AM EST [facility] ([facility]) Name Value Range Interpretation Code Description Data Miya rce(s) Supporting Document(s) vitamin D 1,25 dihydroxy 40.6 pg/mL 19.9-79.3 normal Vitamin D 1 ,25 Dihydroxy [facility] ([facility]) ID Date Data Source [id number] 03/02/2020 07:33:00 AM EST [facility] ([facility]) Name Value Range Interpretation Code Description Data Miya rce(s) Supporting Document(s) bedside glucose 96 mg/dL 70-105 normal Bedside Glucose [facility] ([facility]) ID Date Data Source [id number] 03/02/2020 05:17:00 AM EST [facility] ([facility]) Name Value Range Interpretation Code Description Data Miya rce(s) Supporting Document(s) T uptake 30 % 30-39 normal T Uptake [facility] ([facility]) free thyroxine index 1.1 % 1.3-4.8 Below low normal Free Thyr oxine Index [place] ([facility]) thyroxine (T4) 3.5 ug/dL 4.5-12.0 Below low normal Thyroxine (T4) [facility] ([facility]) thyroid stimulating hormone 273.000 uIU/mL 0.358-3.740 Above high normal Thyroid Stimulating Hormone [facility] ([facility]) ID Date Data Source [id number] 03/02/2020 05:17:00 AM EST [facility] ([facility]) Name Value Range Interpretation Code Description Data Miya rce(s) Supporting Document(s) magnesium level 2.2 mg/dL 1.8-2.4 normal Magnesium Level [facility] ([facility]) ID Date Data Source [id number] 03/02/2020 05:17:00 AM EST [facility] ([facility]) Name Value Range Interpretation Code Description Data Miya rce(s) Supporting Document(s) glucose, fasting 63 mg/dL 70-100 Below low normal Glucose, Fast ing [facility] ([facility]) blood urea nitrogen 10 mg/dL 7-18 normal Blood Urea Nitro gen [facility] ([facility]) creatinine for GFR 1.39 mg/dL 0.55-1.30 Above high normal Creatinine for GFR [facility] ([facility]) glomerular filtration rate >60 Below low normal Deonna merular Filtration Rate [facility] ([facility]) potassium serum 3.8 mEq/L 3.5-5.1 normal Potassium Serum [facility] NA ([facility]) sodium level 146 mEq/L 136-145 Above high normal Sodium Level [facility] ([facility]) carbon dioxide level 27 mEq/L 21-32 normal Carbon Dioxide Level [facility] ([facility]) chloride level 114 mEq/L 98-107 Above high normal Chloride Level [place] ([facility]) anion gap 5 mEq/L 8-16 Below low normal Anion Gap [place] ( [facility]) calcium level 7.6 mg/dL 8.5-10.1 Below low normal Calcium Level AT [facility] ([facility]) ID Date Data Source [id number] 03/02/2020 05:17:00 AM EST [place] ([facility]) Name Value Range Interpretation Code Description Data Miya rce(s) Supporting Document(s) white blood count 6.5 10 4.0-10.0 normal White Blood Count [place] ([facility]) red blood count 3.65 10 4.00-5.40 Below low normal Red Blood Coun t [facility] ([facility]) hemoglobin 10.7 g/dL 12.0-15.5 Below low normal Hemoglobin [facility] ( [facility]) mean corpuscular volume 97.5 fL 80.0-96.0 Above high normal Mean Corpuscular Volume [place] ([facility]) hematocrit 35.6 % 36.0-47.0 Below low normal Hematocrit [place] ( [facility]) mean corpuscular HGB conc 30.1 g/dL 32.0-36.5 Below low zeeshan l Mean Corpuscular HGB Conc [facility] ([facility]) mean corpuscular hemoglobin 29.3 pg 27.0-33.0 normal Mean Corpuscular Hemoglobin [facility] ([facility]) red cell distribution width 14.1 % 11.5-14.5 normal Red Cell Distribution Width [facility] ([facility]) nucleated red blood cell % 0.0 % 0-0 normal Nucleated Red Blood Cell % [facility] ([facility]) platelet count, automated 106 10 150-450 Below low zeeshan l Platelet Count, Automated [facility] ([facility]) ID Date Data Source [id number] 03/01/2020 06:18:00 PM EST [facility] ([facility]) Name Value Range Interpretation Code Description Data Miya rce(s) Supporting Document(s) ABG pH (arterial) 7.327 units 7.350-7.450 Below low normal ABG pH (Ar terial) [facility] ([facility]) ABG partial pressure O2 87.0 mmHg 75.0-100.0 normal ABG Partial Pressure O2 [facility] ([facility]) ABG partial pressure CO2 52.4 mmHg 35.0-45.0 Above high zeeshan l ABG Partial Pressure CO2 [facility] ([facility]) ABG total CO2 28.4 mEq/L 22.0-29.0 normal ABG Total CO2 [facility] ( [facility]) ABG HCO3 26.8 mEq/L 22.0-26.0 Above high normal Abg Hco3 [facility] ([facility]) ABG base excess -2.0-2.0 normal ABG Base Excess ATHE NA ([facility]) ABG standard HCO3 24.6 mEq/L 22.0-26.0 normal ABG Standard HCO3 [facility] ([facility]) ABG O2 saturation 96.6 % 95.0-99.0 normal ABG O2 Saturation [facility] ([facility]) ID Date Data Source [id number] 03/01/2020 03:46:00 PM EST [facility] ([facility]) Name Value Range Interpretation Code Description Data Miya rce(s) Supporting Document(s) ABG partial pressure CO2 51.5 mmHg 35.0-45.0 Above high zeeshan l ABG Partial Pressure CO2 [facility] ([facility]) ABG pH (arterial) 7.306 units 7.350-7.450 Below low normal ABG pH (Ar terial) [facility] ([facility]) ABG total CO2 26.7 mEq/L 22.0-29.0 normal ABG Total CO2 [facility] ( [facility]) ABG partial pressure O2 80.4 mmHg 75.0-100.0 normal ABG Partial Pressure O2 [facility] ([facility]) ABG HCO3 25.1 mEq/L 22.0-26.0 normal Abg Hco3 [facility] ([facility]) ABG base excess -2.0-2.0 normal ABG Base Excess AT[facility] NA ([facility]) ABG O2 saturation 95.4 % 95.0-99.0 normal ABG O2 Saturation [facility] ([facility]) ABG standard HCO3 23.0 mEq/L 22.0-26.0 normal ABG Standard HCO3 [facility] ([facility]) ID Date Data Source [id number] 03/01/2020 05:41:00 AM EST [facility] ([facility]) Name Value Range Interpretation Code Description Data Miya rce(s) Supporting Document(s) angiotensin 1 converting enzym 61 U/L 14-82 normal Angiotensin 1 Converting Enzym [facility] ([facility]) ID Date Data Source [id number] 03/01/2020 05:41:00 AM EST [facility] ([facility]) Name Value Range Interpretation Code Description Data Miya rce(s) Supporting Document(s) ABG pH (arterial) 7.328 units 7.350-7.450 Below low normal ABG pH (Ar terial) [facility] ([facility]) ABG partial pressure O2 91.2 mmHg 75.0-100.0 normal ABG Partial Pressure O2 [facility] ([facility]) ABG partial pressure CO2 45.2 mmHg 35.0-45.0 Above high zeeshan l ABG Partial Pressure CO2 [facility] ([facility]) ABG HCO3 23.2 mEq/L 22.0-26.0 normal Abg Hco3 [facility] ([facility]) ABG total CO2 24.6 mEq/L 22.0-29.0 normal ABG Total CO2 [facility] ( [facility]) ABG standard HCO3 22.1 mEq/L 22.0-26.0 normal ABG Standard HCO3 [facility] ([facility]) ABG base excess -2.0-2.0 Below low normal ABG Base Exces s [facility] ([facility]) ABG O2 saturation 96.9 % 95.0-99.0 normal ABG O2 Saturation [facility] ([facility]) ID Date Data Source [id number] 02/29/2020 07:30:00 PM EST [facility] ([facility]) Name Value Range Interpretation Code Description Data Miya rce(s) Supporting Document(s) ABG pH (arterial) 7.327 units 7.350-7.450 Below low normal ABG pH (Ar terial) [facility] ([facility]) ABG partial pressure CO2 55.0 mmHg 35.0-45.0 Above high zeeshan l ABG Partial Pressure CO2 [facility] ([facility]) ABG total CO2 29.8 mEq/L 22.0-29.0 Above high normal ABG Total CO2 A THENA ([facility]) ABG partial pressure O2 76.0 mmHg 75.0-100.0 normal ABG Partial Pressure O2 [facility] ([facility]) ABG HCO3 28.2 mEq/L 22.0-26.0 Above high normal Abg Hco3 [facility] ([facility]) ABG standard HCO3 25.5 mEq/L 22.0-26.0 normal ABG Standard HCO3 [facility] ([facility]) ABG base excess -2.0-2.0 normal ABG Base Excess ATHE NA ([facility]) ABG O2 saturation 95.0 % 95.0-99.0 normal ABG O2 Saturation [facility] ([facility]) ID Date Data Source [id number] 02/29/2020 12:55:00 PM EST DA[facility] ([facility]) Name Value Range Interpretation Code Description Data Miya rce(s) Supporting Document(s) ABG partial pressure O2 59.0 mmHg 75.0-100.0 Below low normal ABG Partial Pressure O2 [facility] ([facility]) ABG pH (arterial) 7.346 units 7.350-7.450 Below low normal ABG pH (Ar terial) [facility] ([facility]) ABG partial pressure CO2 51.7 mmHg 35.0-45.0 Above high zeeshan l ABG Partial Pressure CO2 [facility] ([facility]) ABG HCO3 27.6 mEq/L 22.0-26.0 Above high normal Abg Hco3 [facility] ([facility]) ABG total CO2 29.2 mEq/L 22.0-29.0 Above high normal ABG Total CO2 A THENA ([facility]) ABG standard HCO3 25.3 mEq/L 22.0-26.0 normal ABG Standard HCO3 [facility] ([facility]) ABG base excess -2.0-2.0 normal ABG Base Excess ATHE NA ([facility]) ABG O2 saturation 90.2 % 95.0-99.0 Below low normal ABG O2 Satur ation [facility] ([facility]) ID Date Data Source [id number] 02/29/2020 05:16:00 AM EST [facility] ([facility]) Name Value Range Interpretation Code Description Data Miya rce(s) Supporting Document(s) magnesium level 2.2 mg/dL 1.8-2.4 normal Magnesium Level ATHE NA ([facility]) ID Date Data Source [id number] 02/29/2020 05:16:00 AM EST [facility] ([facility]) Name Value Range Interpretation Code Description Data Miya rce(s) Supporting Document(s) glucose, fasting 131 mg/dL 70-100 Above high normal Glucose, Fas ting DAIANA ([facility]) creatinine for GFR 1.87 mg/dL 0.55-1.30 Above high normal Creatinine for GFR DAIANA ([facility]) blood urea nitrogen 10 mg/dL 7-18 normal Blood Urea Nitro gen DAIANA ([facility]) glomerular filtration rate >60 Below low normal Deonna merular Filtration Rate DAIANA ([facility]) sodium level 140 mEq/L 136-145 normal Sodium Level DAIANA ([facility]) chloride level 106 mEq/L 98-107 normal Chloride Level DAIANA ([facility]) carbon dioxide level 28 mEq/L 21-32 normal Carbon Dioxide Level DAIANA ([facility]) potassium serum 4.2 mEq/L 3.5-5.1 normal Potassium Serum ATHE ([facility]) anion gap 6 mEq/L 8-16 Below low normal Anion Gap [place] ( [facility]) calcium level 8.4 mg/dL 8.5-10.1 Below low normal Calcium Level [facility] ([facility]) ID Date Data Source [id number] 02/29/2020 05:16:00 AM EST [place] ([facility]) Name Value Range Interpretation Code Description Data Miya rce(s) Supporting Document(s) white blood count 8.8 10 4.0-10.0 normal White Blood Count DAIANA ([facility]) red blood count 4.24 10 4.00-5.40 normal Red Blood Count ATHE ([facility]) hematocrit 40.1 % 36.0-47.0 normal Hematocrit DA[facility]NA ([facility]) mean corpuscular volume 94.6 fL 80.0-96.0 normal Mean Corpusc ular Volume DAIANA ([facility]) hemoglobin 12.0 g/dL 12.0-15.5 normal Hemoglobin DA[facility]NA ([facility]) mean corpuscular HGB conc 29.9 g/dL 32.0-36.5 Below low zeeshan l Mean Corpuscular HGB Conc DAIANA ([facility]) mean corpuscular hemoglobin 28.3 pg 27.0-33.0 normal Mean Corpuscular Hemoglobin DAIANA ([facility]) platelet count, automated 151 10 150-450 normal Platelet C ount, Automated DAIANA ([facility]) red cell distribution width 14.0 % 11.5-14.5 normal Red Cell Distribution Width DA[facility]NA ([facility]) nucleated red blood cell % 0.0 % 0-0 normal Nucleated Red Blood Cell % DA[facility]NA ([facility]) ID Date Data Source [id number] 02/28/2020 11:28:00 PM EST DAIANA ([facility]) Name Value Range Interpretation Code Description Data Miya rce(s) Supporting Document(s) potassium random urine 96.0 mEq/L normal Potassium Ran dom Urine DAIANA ([facility]) ID Date Data Source [id number] 02/28/2020 11:28:00 PM EST DA[place] ([facility]) Name Value Range Interpretation Code Description Data Miya rce(s) Supporting Document(s) sodium,random urine 61 mEq/L normal Sodium,random Ur ine DA[facility]NA ([facility]) ID Date Data Source [id number] 02/28/2020 11:28:00 PM EST [facility] ([facility]) Name Value Range Interpretation Code Description Data Miya rce(s) Supporting Document(s) creatinine,random urine 165.0 mg/dL normal Creatinine, random Urine [facility] ([facility]) ID Date Data Source [id number] 02/28/2020 11:28:00 PM EST [facility] ([facility]) Name Value Range Interpretation Code Description Data Miya rce(s) Supporting Document(s) osmolality urine 523 mOsm/kg 500-800 normal Osmolality Urine A THENA ([facility]) ID Date Data Source [id number] 02/28/2020 11:28:00 PM EST [facility] ([facility]) Name Value Range Interpretation Code Description Data Miya rce(s) Supporting Document(s) appearance, urine cloudy clear Above high normal Appearance, Urine [facility] ([facility]) color, urine yellow yellow normal Color, Urine [facility] ([facility]) specific gravity urine auto 1.002-1.035 normal Specifi c [place] Urine Auto DA[facility]NA ([facility]) pH,urine 7.0 units 5.0-9.0 normal pH,urine DA[facility] ([facility]) protein, urine auto negative negative normal Protein, Urine A uto DA[facility] ([facility]) ketone, urine auto negative negative normal Ketone, Urine Aut o DA[place] ([facility]) bilirubin, urine auto negative negative normal Bilirubin, Uri ne Auto DA[facility] ([facility]) nitrite, urine auto positive negative normal Nitrite, Urine A uto DA[facility] ([facility]) urobilinogen, urine auto 0.2 mg/dL 0.0-2.0 normal Urobilinoge n, Urine Auto [facility] ([facility]) glucose, urine (UA) auto negative negative normal Glucose, Ur ine (UA) Auto [facility] ([facility]) leukocyte esterase, urine auto 1+ negative Above high normal Leukocyte Esterase, Urine Auto [facility] ([facility]) blood, urine blood negative negative normal Blood, Urine Bloo d [facility] ([facility]) RBC, urine auto 1 /hpf 0-3 normal RBC, Urine Auto ATHE NA ([facility]) WBC, urine auto 13 /hpf 0-3 Above high normal WBC, Urine Au to [facility] ([facility]) bacteria, urine auto 3+ negative Above high normal Bacteria , Urine Auto [facility] ([facility]) transitional epithelial auto <1 none normal Transit ional Epithelial Auto [facility] ([facility]) mucus, urine small negative normal Mucus, Urine [facility] ([facility]) squamous epithelial cell ur AU 5 /hpf 0-6 normal Squam ous Epithelial Cell Ur AU DA[place]NA ([facility]) hyaline cast, urine auto 0 /lpf 0-1 normal Hyaline Adams t, Urine Auto [facility] ([facility]) ID Date Data Source [id number] 02/28/2020 04:33:00 PM EST [facility] ([facility]) Name Value Range Interpretation Code Description Data Miya rce(s) Supporting Document(s) procalcitonin <0.05 normal Procalcitonin [facility] ( [facility]) ID Date Data Source [id number] 02/28/2020 04:33:00 PM EST DA[place] ([facility]) Name Value Range Interpretation Code Description Data Miya rce(s) Supporting Document(s) D-dimer quant 1194.11 NG/mL <500 Above high normal D-dimer Kenton t DA[facility]NA ([facility]) ID Date Data Source [id number] 02/28/2020 02:58:00 PM EST [facility] ([facility]) Name Value Range Interpretation Code Description Data Miya rce(s) Supporting Document(s) istat pCO2 51.0 mmHg 35.0-45.0 Above high normal Istat pCO2 [place] ([facility]) istat pH 7.359 units 7.350-7.450 normal Istat pH [facility] ([facility]) istat TCO2 30.0 mmol/L 23.0-27.0 Above high normal Istat TCO2 [facility] ([facility]) istat HCO3 28.7 mmol/L 22.0-26.0 Above high normal Istat HCO3 [facility] ([facility]) istat pO2 46.0 mmHg 80-105 Below low normal Istat pO2 [place] ( [facility]) istat base excess 3.0 mmol/L -2.0-3.0 normal Istat Base Excess DA[place] ([facility]) istat so2 79 % 95-98 Below low normal Istat So2 [place] ( [facility]) ID Date Data Source [id number] 02/28/2020 12:32:00 PM EST [place] ([facility]) Name Value Range Interpretation Code Description Data Miya rce(s) Supporting Document(s) free T3 < 0.5 2.2-4.0 Below low normal Free T3 [facility] ( [facility]) ID Date Data Source [id number] 02/28/2020 12:32:00 PM EST [place] ([facility]) Name Value Range Interpretation Code Description Data Miya rce(s) Supporting Document(s) free T4 0.19 NG/dL 0.76-1.46 Below low normal Free T4 [facility] ( [facility]) ID Date Data Source [id number] 02/28/2020 12:32:00 PM EST [facility] ([facility]) Name Value Range Interpretation Code Description Data Miya rce(s) Supporting Document(s) osmolality serum 292 mOsm/kg 275-295 normal Osmolality Serum A THENA ([facility]) ID Date Data Source [id number] 02/28/2020 12:32:00 PM EST [facility] ([facility]) Name Value Range Interpretation Code Description Data Miya rce(s) Supporting Document(s) magnesium level 2.1 mg/dL 1.8-2.4 normal Magnesium Level ATHIvan NAJERA ([facility]) ID Date Data Source [id number] 02/28/2020 12:32:00 PM EST [facility] ([facility]) Name Value Range Interpretation Code Description Data Miya rce(s) Supporting Document(s) uric acid 8.3 mg/dL 2.6-6.0 Above high normal Uric Acid [facility] ([facility]) ID Date Data Source [id number] 02/28/2020 12:32:00 PM EST [place] ([facility]) Name Value Range Interpretation Code Description Data Miya rce(s) Supporting Document(s) CPK creatine phosphokinase 277 U/L 26-192 Above high nor mal CPK Creatine Phosphokinase [facility] ([facility]) ID Date Data Source [id number] 02/28/2020 12:32:00 PM EST [facility] ([facility]) Name Value Range Interpretation Code Description Data Miya rce(s) Supporting Document(s) HCG, serum qualitative negative negative normal HCG, Serum Qu alitative [facility] ([facility]) ID Date Data Source [id number] 02/28/2020 12:32:00 PM EST [facility] ([facility]) Name Value Range Interpretation Code Description Data Miya rce(s) Supporting Document(s) thyroid stimulating hormone 190.000 uIU/mL 0.358-3.740 Above high normal Thyroid Stimulating Hormone [place] ([facility]) ID Date Data Source [id number] 02/28/2020 12:32:00 PM EST [facility] ([facility]) Name Value Range Interpretation Code Description Data Miya rce(s) Supporting Document(s) glucose, fasting 108 mg/dL 70-100 Above high normal Glucose, Fas ting DAIANA ([facility]) glomerular filtration rate >60 Below low normal Deonna merular Filtration Rate [place] ([facility]) creatinine for GFR 2.30 mg/dL 0.55-1.30 Above high normal Creatinine for GFR [place] ([facility]) blood urea nitrogen 11 mg/dL 7-18 normal Blood Urea Nitro gen DA[facility]NA ([facility]) sodium level 137 mEq/L 136-145 normal Sodium Level DA[facility]NA ([facility]) carbon dioxide level 31 mEq/L 21-32 normal Carbon Dioxide Level DA[facility] ([facility]) chloride level 103 mEq/L 98-107 normal Chloride Level [facility] ([facility]) potassium serum 4.4 mEq/L 3.5-5.1 normal Potassium Serum ATHE NA ([facility]) anion gap 3 mEq/L 8-16 Below low normal Anion Gap [facility] ( [facility]) calcium level 9.6 mg/dL 8.5-10.1 normal Calcium Level [facility]) ID Date Data Source [id number] 02/28/2020 12:32:00 PM EST DA[place] ([facility]) Name Value Range Interpretation Code Description Data Miya rce(s) Supporting Document(s) AST/SGOT 18 U/L 7-37 normal AST/SGOT [facility] ([facility]) ALT/SGPT 11 U/L 12-78 Below low normal ALT/SGPT [facility] ( [facility]) alkaline phosphatase 98 U/L 45-117 normal Alkaline Phosph atase DA[facility] ([facility]) bilirubin,total 0.3 mg/dL 0.2-1.0 normal Bilirubin,[facility]) bilirubin,direct < 0.1 0.0-0.2 normal Bilirubin,direct AT [facility] ([facility]) albumin 4.0 gm/dL 3.2-5.2 normal Albumin DA[facility] ([facility]) total protein 7.8 gm/dL 6.4-8.2 normal Total Protein [place] ( [facility]) albumin/globulin ratio 1.2-2.2 Below low normal Albumin /globulin Ratio [place] ([facility]) ID Date Data Source [id number] 02/28/2020 11:41:00 AM EST DA[place] ([facility]) Name Value Range Interpretation Code Description Data Miya rce(s) Supporting Document(s) istat troponin 0.01 NG/mL 0.00-0.08 normal Istat Troponin [facility] ([facility]) ID Date Data Source [id number] 02/28/2020 11:40:00 AM EST [place] ([facility]) Name Value Range Interpretation Code Description Data Miya rce(s) Supporting Document(s) istat HCT 46.0 % 38.0-51.0 normal Istat HCT [facility]NA ([facility]) istat glucose 94 mg/dL 70-105 normal Istat Glucose [place] ( [facility]) istat Ca++ 4.4 mg/dL 4.5-5.3 Below low normal Istat Ca++ [facility] ( [facility]) istat potassium 6.9 mEq/L 3.5-5.1 Above high normal Istat Potassi um [facility] ([facility]) istat sodium 138 mEq/L 136-145 normal Istat Sodium [facility] ([facility]) istat BUN 12 mg/dL 8-26 normal Istat BUN [facility] ([facility]) istat chloride 100 mEq/L 98-109 normal Istat Chloride [facility] ([facility]) istat CO2 32.0 mm/L 23.0-27.0 Above high normal Istat CO2 [facility] ([facility]) istat creatinine 2.3 mg/dL 0.6-1.3 Above high normal Istat Creati nine [facility] ([facility]) ID Date Data Source [id number] 02/28/2020 11:26:00 AM EST [place] ([facility]) Name Value Range Interpretation Code Description Data Miya rce(s) Supporting Document(s) sars covid-19 amplification negative negative normal Sars Covid-19 Amplification [facility]) ID Date Data Source [id number] 02/28/2020 11:22:00 AM EST [facility]) Name Value Range Interpretation Code Description Data Miya rce(s) Supporting Document(s) white blood count 6.0 10 4.0-10.0 normal White Blood Count [facility] ([facility]) red blood count 4.71 10 4.00-5.40 normal Red Blood Count [facility] ([facility]) hemoglobin 13.8 g/dL 12.0-15.5 normal Hemoglobin [facility] ([facility]) hematocrit 44.9 % 36.0-47.0 normal Hematocrit [facility] ([facility]) mean corpuscular volume 95.3 fL 80.0-96.0 normal Mean Corpusc ular Volume [facility] ([facility]) mean corpuscular hemoglobin 29.3 pg 27.0-33.0 normal Mean Corpuscular Hemoglobin [facility] ([facility]) mean corpuscular HGB conc 30.7 g/dL 32.0-36.5 Below low zeeshan l Mean Corpuscular HGB Conc [facility] ([facility]) platelet count, automated 148 10 150-450 Below low zeeshan l Platelet Count, Automated [facility] ([facility]) red cell distribution width 14.3 % 11.5-14.5 normal Red Cell Distribution Width [facility] ([facility]) neutrophils % 67.9 % 36.0-66.0 Above high normal Neutrophils % A THENA ([facility]) lymph % 17.1 % 24.0-44.0 Below low normal Lymph % [facility] ( [facility]) eos % 3.8 % 0.0-3.0 Above high normal Eos % [facility] ([facility]) baso % 1.2 % 0.0-1.0 Above high normal Baso % [facility] ([facility]) mono % 6.0 % 0.0-5.0 Above high normal Taney % [facility] ([facility]) immature granulocyte % 4.0 % 0-3.0 Above high normal Immatu re Granulocyte % [facility] ([facility]) nucleated red blood cell % 0.0 % 0-0 normal Nucleated Red Blood Cell % [facility] ([facility]) neutrophils # 4.1 10 1.5-8.5 normal Neutrophils # DA[facility] ( [facility]) lymph # 1.0 10 1.5-5.0 Below low normal Lymph # [facility] ( [facility]) eos # 0.2 10 0.0-0.5 normal Eos # [facility] ([facility]) mono # 0.4 10 0.0-0.8 normal [place]aney # [facility] ([facility]) baso # 0.1 10 0.0-0.2 normal Baso # [facility]NA ([facility]) ID Date Data Source [id number] 12/07/2019 05:39:00 AM EDT [facility] 85 90 100 92 Name Value Range Interpretation Code Description Data Miya rce(s) Supporting Document(s) ID Date Data Source [id number] 12/06/2019 05:50:00 PM EDT [facility] 85 90 100 92 Name Value Range Interpretation Code Description Data Miya rce(s) Supporting Document(s) ID Date Data Source [id number] 12/06/2019 11:58:00 AM EDT [facility] 85 90 100 92 Name Value Range Interpretation Code Description Data Miya rce(s) Supporting Document(s) ID Date Data Source [id number] 12/06/2019 05:23:00 AM EDT [facility] 85 90 100 92 Name Value Range Interpretation Code Description Data Miya rce(s) Supporting Document(s) ID Date Data Source [id number] 12/06/2019 05:23:00 AM EDT [facility] Name Value Range Interpretation Code Description Data Miya rce(s) Supporting Document(s) HCT 37.7 % 36.0-47.0 N [facility] HGB 12.4 g/dL 12.0-15.5 N [facility] MCH 32.9 G/DL pg 32.0-36.5 N [facility] MCHC 32.8 PG % 27.0-33.0 [facility] PLATELETS 117 10 10*3/mm3 150-450 L [facility] RBC 3.78 10 10*6/mm3 4.00-5.40 L [facility] RDW 12.3 % 11.5-14.5 N [facility] WBC TOTAL 4.6 4.0-10.0 [facility] ID Date Data Source [id number] 09/20/2019 12:00:00 AM EDT [facility] Geoff CHRISTIE Patient Name: ARELIS LARKIN [facility] Date of : 1980[address] Date of Exam: 09/20/2019SHAGGY [place] [id number]#: Fax: [id number] EXAM: CT LOWER EXTREMITY W/O [...] normallimits.IMPRESSION:Bimalleolar fracture as described above.Accredited by the [employer] in [place].DOMINIC Ann/Shashi you for referring EDWIN LARKIN to our office. Electronically Signed - MARY CAMPOS DO 09/21/19 13:24 Name Value Range Interpretation Code Description Data Miya rce(s) Supporting Document(s) ID Date Data Source [id number] 08/19/2019 04:08:42 PM EDT [facility] Measurements & CalculationsHeight: 63 inches (5 [...] (ER) or urgent care clinic? Yes - [facility] Emergency room (ER) or urgent care date [...] 4:17 PMPatient History Medical History:DepressionHypothyroidismADHDAnxietyPTSDSubstance abuseSurgical History: f1Rzzfhd History:Substance abuse (Mother)Social/Personal History: Advised to Quit/Tobacco [...] during this visit, including review of any dyjf-kdk-gartyro medications, herbal therapies, and/or supplements.Allergy ReviewAllergy List [...] left ankle, initial encounter for fracture (ICD-733.16) (QZZ97-Z34.472A)Hypothyroidism (ICD-244.9) (BLO95-C67.9) Assessment: renew thyroid medAssessment not SavedPathological fracture; left ankle; initial encounter for fracture (QDT48-N60.472A): pt to f/u ortho next thursdayMedications:PROPRANOLOL HCL [...] LIOTHYRONINE SODIUM 25 MCG ORAL TABLET Qty: [id number] Refills: 90[Tablet] To: LEVOTHYROXINE SODIUM 150 MCG ORAL TABLET- one tab po QD Qty: 90[Tablet] Refills: 1Allergies:No Known Allergies (updated 11/03/2017) Medications:LEVOTHYROXINE SODIUM 150 MCG ORAL TABLET (LEVOTHYROXINE SODIUM) one tab po QD #90[Tablet] x 1 Route:ORAL Entered and Authorized by: Ian Rockwell DO Method used: Electronically to [facility] (retail) [address] [place] [address] Note to Pharmacy: Route: ORAL; Indications: OTHER SPECIFIED HYPOTHYROIDISM RxID: [id number] signed by Ian Rockwell DO on 08/19/2019 at 4:34 PM Name Value Range Interpretation Code Description Data Miya rce(s) Supporting Document(s) ID Date Data Source [id number] 05/14/2019 07:40:00 PM EST [facility] 1 OrderSheet [facility] Emergency Department [address] [place] [address] Phone #: rcs- [phone] 05/14/2019 19:19 Patient: EDWIN LARKIN Sex: F : 1980 Age: 39yWEIGHT:90.7 kg (S) HEIGHT:63 inches (S) BMI:35.4ALLERGIES: No Known Drug AllergyCHIEF COMPLAINT: multiple, syncopeDIAGNOSIS: Urinary tract infectious disease, HypothyroidismLAB ORDERSOrder Description Priority Entered Acknowledged InitialedUrinalysis (Clean STAT 19:51 05/14/2019 19:51 Delia Burks) eDlia Hernandez R.N. R.N.; Per protocol; Fabian Naidu [...] 21:55 Delia Rachid(Oxygen?(No)) Fabian CHRISTIE; 2 OrderSheet [facility] Emergency Department [address] [place] [address] Phone #: ext- [phone] 05/14/2019 19:19 Patient: EDWIN LARKIN Sex: F : 1980 Age: 39y Reason for Study: syncopeCT Head W/O Cont STAT 20:00 05/14/2019 Ack'd: 20:03 Delia 21:55 Delia Rachid(Oxygen?(No)) Fabian CHRISTIE; Reason for Study: Alter ed Sense of AwarenessMEDICATION/IV/DRIP/FLUID ORDERSOrder Description Priority Entered Acknowledged Initialed- (Synthroid 50mcg 21:46 05/14/2019 Ack'd: 21:48 21:55 Delia BlairPO) iWnter Kowalski R.N., R.N.;Macrobid PO 100 22:19 05/14/2019 Cancelled: Patient Refusal 22:55 Keaton CHRISTIE;GENERAL ORDERSOrder Description Priority Entered Acknowledged InitialedEKG 20:00 05/14/2019 20:07 Fraknlin CHRISTIE;Blood Pressure 20:00 05/14/2019 20:07 Luz Maria CHRISTIE;Supervisor [employer] Machine 20:00 05/14/2019 20:07 Franklin(continuous) Fabian CHRISTIE;Obtain Old EKG 20:00 05/14/2019 20:07 Franklni CHRISTIE;Pulse oximeter 20:00 05/14/2019 20:03 Delia Rashid(Continuous) Fabian CHRISTIE;Vitals 20:00 05/14/2019 20:03 Delia CHRISTIE;[Electronically signed by Franklin Hernandez RN (22:59 05/14/2019)][Electronically signed by Fabian Naidu (23:26 05/14/2019)][Electronically locked by Franklin Hernandez RN (22:59 05/14/2019)] Name Value Range Interpretation Code Description Data Miya rce(s) Supporting Document(s) ID Date Data Source [id number] 05/14/2019 07:40:00 PM [facility] 1 Medication Reconciliation Report [facility] Emergency Department [address] [place] [address] Phone #: ext- [phone] 05/14/2019 19:19 [id number] Sex: F : 1980 Age: 39yWeight: 90.7 [...] Dispense 14 capsule. Refills: 0.Substitution permitted.Pharmacy - [facility]- [address] ; [place], [place] [id number]. . -- SHAHNAZ Cabrera Name Value Range Interpretation Code Description Data Miya rce(s) Supporting Document(s) ID Date Data Source [id number] 05/14/2019 07:40:00 PM [place] [address] Medication Administration Record [facility] Emergency Department [address] [place] [address] Phone #: ext- [phone] 05/14/2019 19:19 Patient: EDWIN LARKIN Sex: F : 1980 Age: 39yWeight: 90.7 kgHeight/Length: 63 inBMI: 35.4A LLERGIES: No Known Drug Allergy Date/Time Medication Administered Medication OrderedGiven synthroid * - (Synthroid 50mcg PO)21:55 05/14/2019 Dose: 50 mcg * Clementine Hernandez R.N. Name Value Range Interpretation Code Description Data Miya rce(s) Supporting Document(s) ID Date Data Source [id number] 05/14/2019 07:40:00 PM [facility] 1 General Instructions [facility] Emergency Department [address] [place] [address] Phone #: ext- [phone] 05/14/2019 19:19 Patient: EDWIN LARKIN Sex: F : 1980 Age: 39yAcute urinary tract infection with cystitis and hematuria.Congenital hypothyroidism without goiter.INSTRUCTIONS(Call your trimming caser to have [employer] deliver your Thyroid medicine to you and [...] Dispense 14 capsule. Refills: 0.Substitution permitted.Pharmacy - [facility]- [place], [place] - [address] [place] [address] ; [place], [place] [phone]. .Follow-up:Follow up with your doctor Thursday. Reason for referral: evaluation, treatment and refer to Endocrinology.Summary of care provided to patient.Understanding of the discharge instructions verbalized by patient. ADDITIONAL INFORMATIONBladder Infection, Female (Adult) 2 General Instructions [facility] Emergency Department [address] [place] [address] Phone #: ext- [phone] 05/14/2019 19:19 Patient: EDWIN LARKIN Sex: F [...] out Blood in urine 3 General Instructions [facility] Emergency Department [address] [place] [address] Phone #: ext- [phone] 05/14/2019 19:19 Patient: EDWIN LARKIN Sex: F [...] more serious kidney infection. 4 General Instructions [facility] Emergency Department [address] [place] [address] Phone #: ext- [phone] 05/14/2019 19:19 [id number] Sex: F : 1980 Age: 39yMedicinesMedicines can [...] find out the results. 5 General Instructions [facility] Emergency Department [address] [place] [address] Phone #: ext- [phone] 05/14/2019 19:19 Patient: EDWIN LARKIN Sex: F : 1980 Age: 39yIf X-rays were done, you will be told if the results will affect your treatment.Call [phone] if any of the following occur: Trouble [...] i n the outer vaginal area (labia) [phone] [employer]. [address] [place] [address], [place] [address]. All rights reserved. This information is not intended as asubstitute for professional medical care. Always follow your healthcare professional's instructions.Hypothyroidism 6 General Instructions [facility] Emergency Department [address] [place] [address] Phone #: ext- [phone] 05/14/2019 19:19 [facility]: [facility]ARK[id number] Sex: F : 1980 Age: 39yYou have [...] the hands or feet 7 General Instructions [facility] Emergency Department [address] [place] [address] Phone #: ext- [phone] 05/14/2019 19:19 Patient: [...] need to be adjusted. 8 General Instructions [facility] Emergency Department [address] [place] [address] Phone #: ext- [phone] 05/14/2019 19:19 Patient: [...] pain Shortness of breath or trouble breathing [phone] [employer] [place] [address], [place] [address]. All rights reserved. This information is not intended as asubstitute for professional medical care. Always follow your healthcare professional's instructions. You have been given the following additional information: Bladder Infection, Female (Adult) Hypothyroidism(Electronically signed by SHAHNAZ Cabrera 05/14/2019 23:26) Name Value Range Interpretation Code Description Data Miya rce(s) Supporting Document(s) ID Date Data Source [id number] 05/14/2019 07:40:00 PM EST [facility] 1 Clinical Report - Nurses [facility] Emergency Department [address] [place] [address] Phone #: [phone]- [phone] 05/14/2019 19:19 Patient: EDWIN LARKIN Sex: F [...] R.N.ADDITIONAL SURGERIES:. 2 Clinical Report - Nurses [facility] [place] [address] Phone #: ext- [phone] 05/14/2019 19:19 Patient: EDWIN LARKIN [facility]#: [id number] Sex: F : 1980 Age: 39y Tubal [...] Hernandez R.N. 3 Clinical Report - Nurses [facility] Emergency Department [address] [place] [address] Phone #: ext- [phone] 05/14/2019 19:19 Patient: [...] RR: 13. O2 saturation: 95%. --20:14 05/14/19 [facility] Tech1 21:55 05/14/2019 synthroid * [...] Patient verbalized understanding. Written instructions provided in Georgian. The patient was discharged home. She left [...] rce(s) Supporting Document(s) ID Date Data Source [id number] 05/14/2019 07:40:00 PM [facility] 1 Clinical Report - Physicians/Mid Levels [facility] Emergency Department [address] [place] [address] Phone #: ext- [phone] 05/14/2019 19:19 Patient: [facility]ARKIN [id number] Sex: F : 1980 Age: 39y Time [...] or drug use. 2 Clinical Report - Physicians/[facility] Emergency Department [address] [place] [address] Phone #: ext- [phone] 05/14/2019 19:19 Patient: ED[facility] LARKIN [id number] Sex: F : 1980 Age: 39yPHYSICAL EXAMVital [...] 7) 3 Clinical Report - Physicians/Mid Levels [facility] Emergency Department [address] [place] [address] Phone #: ext- [phone] 05/14/2019 19:19 Patient: [...] GFR Interpren tation 20-49 yrs >60 mL/min Zknanq22-17 yrs >56 mL/min Normal 60-69 yrs >49 mL/min Normal 70-79yrs>42 mL/min Normal 80 and above >35 mL/min Normal Female GFRInterpretation 20-39 yrs >60 mL/min Normal 40-49 yrs >58 mL/minNormal 50-59 yrs >51 mL/min Normal 60-69 yrs >45 mL/min Qmkaxf02-89 yrs >39 mL/min Normal 80 and above [...] VenousThrombosis, Pulmonary Embolus, Tissue heart valves, Acute SD Atrial Fibrillation, Valvular heart diseaseand recurrent Systemic Embolism. -International Normalized Ratio (INR): 2.5 - 3.5 forMechanical Prosthetic valve. \\BLDo\\PTT INTERPRETATION\\BLDx\\Critical results for patients not on therapy: >50 seconds Critical results for patients on therapy:>119 seconds Therapeutic range for patients on therapy: 58 - 90 seconds Coag studies fromline draws may not be accurate due to Heparin and other interferences.TSH: (SIMBA: 05/14/2019 20:15) ( Meg[facility]cvd 05/14/2019 21:30) Final results Test Result Flag Units (Reference) TSH 255.00 H uIU/mL (0.47 - 5.01)Beta-HCG, Qual Urine: (SIMBA: 05/14/2019 19:55) ( MegRcvd 05/14/2019 20:24) Final results Test Result Flag Units (Reference) HCG URINE QUAL NEGATIVE (NORMAL: NEGAT HCG URINE QL REENTER NEGATIVE (NORMAL: NEGAT { KIT LOT # [id number] ){ KIT EXP DATE06/28/20 ){ PROCEDURAL CONTROL VALID)Chest 2 View: (SIMBA: 05/14/2019 20:00) ( [facility]34[facility] In Progress 4 Clinical Report - Physicians/Mid Levels [facility] Emergency Department [address] [place] [address] Phone #: ext- [phone] 05/14/2019 19:19 Patient: EDWIN LARKIN Sex: F : 1980 Age: 39yCHEST 2 VIEWSReason(s): syncopeTRANSPORTATION: WC IV? O2? Oxygen?(No) Room: ED: NoCT Head W/O Cont: (SIMBA: 05/14/2019 20:00) ( [facility] 05/14/2019 21:52) Final results Exam CT HEAD W/[place] [address] ---------NAME--------- NUMBER SEX AGE ADMIT DISC. XRAY# F/C TYPE CHAYA PINEDA [id number] F 39 05/14/19 [id number] XBE E/R DATE OF : 03/07 M/R# [id number] #: [id number] TR-1B LOCATION: EMERGENCY DEPT TRANSCRIBED: 05/14/19 21:[address] HEAD W/O CONTRAST [id number] COMPLETED:05/14/19 21:34 JER [id number] Reason(s): Altered Sense of Awareness PHYSICIAN: RICHARD NAIDU R A D I O L O G Y R E P O R T PATIENT HISTORY: ALTERED SENSE OF AWARENESS, ACT DOSE- 797.2mGy*cm, VERIFIED 2 IDENTIFIERS, NEG HCG, EST DOSE- 797.1mGy*cm. 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 Explained that [facility] will deliver her medicine and shereports her trimming caser is working with them to get her medication. [facility]Pt is concerned about previous [...] hematuria. 6 Clinical Report - Physicians/Mid Levels [facility] Emergency Department [address] [place] [address] Phone #: ext- [phone] 05/14/2019 19:19 Patient: EDWIN LARKIN Sex: F : 1980 Age: 39y Congenital hypothyroidism without goiter.INSTRUCTIONS (Call your trimming caser to have [facility] deliver your Thyroid medicine to you and [...] capsule. Refills: 0. Substitution permitted. Pharmacy - [address] ; [place], [place] [id number]. . Follow-up: Follow up with your doctor Thursday. Reason for referral: evaluation, treatment and refer to Endocrinology. Summary of care provided to patient. Understanding of the discharge instructions verbalized by patient.(Electronically signed by SHAHNAZ Cabrera 05/14/2019 23:26) Name Value Range Interpretation Code Description Data Miya parisi(s) Supporting Document(s) ID Date Data Source [id number] 05/14/2019 07:40:00 PM Health system [facility] VisitID: [id number] Date: 12:01Pt urine growing E. Coli, d/c on macrobid PO BIDx 7 days, sensitive; Shown to Amairani CHRITSIE [id number], no further intervention required at this time.(Electronically signed by Trina Grady R.N. 05/18/2019 12:01) Name Value Range Interpretation Code Description Data Miya e(s) Supporting Document(s) ID Date Data Source [id number] 05/16/2019 11:05:00 AM [facility] [address] [place] [address] PHONE: [phone] FAX: [phone] Name .................. : CHAYA PINEDA Acct Number.................. : [id number] ROOM. ................. : [facility] MR Number ................... : [id number] Stay type ............. : E/R Discharge Date......... ... : 05/14/19 Admit Date .... ..... : 05/14/19 Admit Phys .................... : RICHARD PA Date of ....... : 1980 Family Phys ................... : RICHTER SCOT Phone .................. : [phone] Age ................................ : 39 Film# .................. .:[id number] Sex ................................. : F Unsigned transcriptions are preliminary reports and do not represent a medical or legal document CHEST 2 VIEWS [id number] COMPLETE:05/14/19 21:34 JER [id number] Reaso n(s): syncope CHEST X-RAY: 2-VIEWS FINDINGS: [...] rce(s) Supporting Document(s) ID Date Data Source [id number] 05/16/2019 08:26:00 AM EST [facility] [address] [place] [address] PHONE: [phone] FAX: [phone] Name ..............: CHAYA PINEDA Acct Number ...........................: [id number] ROOM. ............: -1B MR Number ............................: [id number] Stay type.........: E/R Discharge Date...............:05/14/19 Admit Date .....: 05/14/19 Admit Phys .............................: RICHARD CHRISTIE Date of ..: 1980 Family Phys ...........................: RICHTER REPLACED BY [facility] Phone..............: [phone] Age.................................:39 Film# ...............:[id number] Sex.................................:F Unsigned transcriptions are preliminary reports and [place] [id number] COMPLETE:05/15/19 02:26 T 86412 Please See Scanned Results. Name Value Range Interpretation Code Description Data Miya rce(s) Supporting Document(s) ID Date Data Source [id number] 05/14/2019 09:51:00 PM [facility] [address] [place] [address] ---------NAME--------- NUMBER SEX AGE ADMIT DISC. XRAY# F/C TYPE CHAYA PINEDA [id number] F 39 05/14/19 [id number] XBE E/R DATE OF : 1980 M/R# [id number] #: [id number] TR-1B LOCATION: EMERGENCY DEPT TRANSCRIBED: 05/14/19 21:[address] HEAD W/O CONTRAST [id number] COMPLETED:05/14/19 21:34 JER [id number] Reason(s): Altered Sense of Awareness PHYSICIAN: RICHARD [...] rce(s) Supporting Document(s) ID Date Data Source [id number] 05/14/2019 09:29:00 PM [facility] Name Value Range Interpretation Code Description Data Miya rce(s) Supporting Document(s) Thyrotropin [Units/volume] in Serum or Plasma by Detec tion limit <= 0.05 mIU/L 255.00 uIU/mL 0.47 - 5.01 H [facility] ID Date Data Source [id number] 05/14/2019 09:07:00 PM [facility] Name Value Range Interpretation Code Description Data Miya rce(s) Supporting Document(s) CBC W/AUTOMATED DIFF [facility] COMPLETE BLOOD COUNT Leukocytes [#/volume] in Blood by Automated count 4.6 10^3/uL 4.2 - 1 1.0 [facility] Erythrocytes [#/volume] in Blood by Automated count 3.81 10^6/uL 4. 20 - 5.40 L [facility] Hemoglobin [Mass/volume] in Blood 11.4 g/dL 12.0 - 16.0 L [facility] Hematocrit [Volume Fraction] of Blood by Automated count 35.6 % 3 7.0 - 47.0 L [facility] Erythrocyte mean corpuscular volume [Entitic volume] by Auto mated count 93.4 fL 81.0 - 101 [facility] Erythrocyte mean corpuscular hemoglobin [Entitic mass] by Automated count 29.9 pg 27.0 - 34.0 [facility] Erythrocyte mean corpuscular hemoglobin concentration [Mass/volume] by Automated count 32.0 g/dL 31.0 - 36.0 [facility] Erythrocyte distribution width [Ratio] by Automated count 13.9 % 11.5 - 14.5 [facility] Platelets [#/volume] in Blood by Automated count 120 10^3/uL 150 - 45 0 L [facility] Platelet mean volume [Entitic volume] in Blood by Automated count 8.6 fL 7.4 - 10.4 [facility] Neutrophils/100 leukocytes in Blood by Automated count 58.2 % 37. 0 - 80.0 [facility] Lymphocytes/100 leukocytes in Blood by Manual count 29.2 % 25.0 - 40.0 [facility] Monocytes/100 leukocytes in Blood by Automated count 6.5 % 3.0 - 8.0 [facility] Eosinophils/100 leukocytes in Blood by Automated count 4.4 % 0.0 - 7.0 [facility] Basophils/100 leukocytes in Blood by Automated count 1.3 % 0.0 - 2.5 [facility] %IG 0.4 % 0.0 - 0.0 H [facility] %NRBC 0.0 % 0.0 - 0.0 [facility] al Neutrophils [#/volume] in Blood by Automated count 2.67 10^3/uL 2.00 - 6.90 [facility] Lymphocytes [#/volume] in Blood by Automated count 1.34 10^3/uL 0.60 - 3.40 [facility] Monocytes [#/volume] in Blood by Automated count 0.30 10^3/uL 0.00 - 0.90 [facility] Eosinophils [#/volume] in Blood by Automated count 0.20 10^3/uL 0.00 - 0.70 [facility] Basophils [#/volume] in Blood by Automated count 0.06 10^3/uL 0.00 - 0.20 [facility] #IG 0.02 10^3/uL 0.00 - 0.10 [facility] #NRBC 0.00 10^3/uL 0.00 - 0.00 [facility] MANUAL DIFF SEE BELOW [facility] ital Segmented neutrophils/100 leukocytes in Blood by Manual count 53 % 37 - 80 [facility] %LYMPH 32 % 25 - 40 [facility] %MONO 8 % 3 - 8 [facility] %EOS 7 % 0 - 7 [facility] RBC MORPH NOT INDICATED [facility] spital ID Date Data Source [id number] 05/14/2019 08:56:00 PM EST [facility] Name Value Range Interpretation Code Description Data Miya rce(s) Supporting Document(s) COMPREHENSIVE METABOLIC PANEL [facility] COMPREHENSIVE METABOLIC PANEL Sodium [Moles/volume] in Serum or Plasma 141 mEq/L 134 - 153 [facility] Potassium [Moles/volume] in Serum or Plasma 4.1 mEq/L 3.6 - 5.0 [facility] Chloride [Moles/volume] in Serum or Plasma 103 mEq/L 98 - 107 [facility] Carbon dioxide, total [Moles/volume] in Serum or Plasma 31 MEQ/L 22 - 30 H [facility] Glucose [Mass/volume] in Serum or Plasma 84 MG/DL 65 - 110 [facility] BUN 17 MG/DL 7 - 21 [facility] Creatinine [Mass/volume] in Serum or Plasma 1.8 MG/DL 0.7 - 1.5 H [facility] BUN/CREAT 9 8 - 27 [facility] Protein [Mass/volume] in Serum or Plasma 6.7 G/DL 6.3 - 8.2 [facility] Albumin [Mass/volume] in Serum or Plasma 4.6 G/DL 3.9 - 5.0 [facility] Globulin [Mass/volume] in Serum by calculation 2.1 GM/DL 2.4 - 3.2 L [facility] A/G RATIO 2.2 0.8 - 2.0 H [facility] Calcium [Mass/volume] in Serum or Plasma 9.3 MG/DL 8.4 - 10.2 [facility] Bilirubin.total [Mass/volume] in Serum or Plasma <0.7 MG/DL 0.2 - 1.3 [facility] Alkaline phosphatase [Enzymatic activity/volume] in Serum or Plasma 59 U/L 38 - 126 [facility] Aspartate aminotransferase [Enzymatic activity/volume] in Serum or Plasma 21 U/L 5 - 40 [facility] Alanine aminotransferase [Enzymatic activity/volume] in Seru m or Plasma 8 U/L 7 - 56 [facility] Anion gap 3 in Serum or Plasma 7.0 mmol/L 8.0 - 16.0 L [facility] AGE 39 yrs [facility] NON-AA GFR 34 mL/min [facility] AFR AMER GFR 41 mL/min [facility] Male GFR In terprentation 20-49 [...] >32 mL/min Normal ID Date Data Source [id number] 05/14/2019 08:44:00 PM EST [facility] Name Value Range Interpretation Code Description Data Miya rce(s) Supporting Document(s) Prothrombin time (PT) 11.8 SECONDS 11.0 - 15.5 [facility] INR in Platelet poor plasma by Coagulation assay 0.86 0.93 - 1. 23 L [facility] aPTT in Blood by Coagulation assay 34.5 SECONDS 24.8 - 36.7 [facility] \\BLDo\\INR INTERPRETATION\\BLDx\\ Therapeutic range for Coumadin and related oral anticoagulants. - International Normalized Ratio (INR): 2.0 - 3.0 for Venous Thrombosis, Pulmonary Embolus, Tissue heart valves, Acute SD Atrial Fibrillation, Valvular heart disease and recurrent [...] and other interferences. ID Date Data Source [id number] 05/17/2019 07:29:00 PM [facility] Name Value Range Interpretation Code Description Data Miya rce(s) Supporting Document(s) CULTURE URINE [facility] spital _CULTURE URINE_ TEST [place] [address] CLIA# [id number] SEE SCANNED REPORT Specimen site Narrative R [facility] Result: ID Date Data Source [id number] 05/14/2019 08:31:00 PM EST [facility] Name Value Range Interpretation Code Description Data Miya rce(s) Supporting Document(s) DRUG SCREEN URINE [facility] URINE DRUG SCREEN Amphetamine [Presence] in Urine by Screen method NEGATIVE NORMAL: N EGATIVE [facility] BARBITURATES NEGATIVE NORMAL: NEGATIVE [facility] BENZO NEGATIVE NORMAL: NEGATIVE [facility] COCAINE NEGATIVE NORMAL: NEGATIVE [facility] Tetrahydrocannabinol [Presence] in Urine PRESUMP POS NORMAL: NEGATIVE [facility] OPIATES NEGATIVE NORMAL: NEGATIVE [facility] Phencyclidine [Presence] in Urine by Screen method NEGATIVE NOR MAL: NEGATIVE [facility] \\BLDo\\URINE DRUG SCR EEN INTERPRETATION\\BLDx\\ THE CUTOFFF LEVELS FOR DETECTION ARE FOLLOWS: AMPHETAMINES 1000 ng/ml BARBITUARATES 200 ng/ml BENZODIAZEPINES 100 ng/ml THC 50 ng/ml PHENCYCLIDINE 25 ng/ml OPIATES 300 ng/ml COCAINE 300 ng/ml ALL POSITIVES ARE CONSIDERED PRESUMPTIVE POSITIVE CONFIRMATION WILL BE PERFORMED AT PHYSICIAN REQUEST. ID Date Data Source [id number] 05/14/2019 08:24:00 PM EST [facility] Name Value Range Interpretation Code Description Data Miya rce(s) Supporting Document(s) HCG URINE QUAL NEGATIVE NORMAL: NEGATIVE [facility] HCG URINE QL REENTER NEGATIVE NORMAL: NEGATIVE [facility] { KIT LOT # [id number] ){ KIT EXP DATE 06/28/20 ){ PROCEDURAL CONTROL VALID ) ID Date Data Source [id number] 05/14/2019 08:23:00 PM EST [facility] Name Value Range Interpretation Code Description Data Miya rce(s) Supporting Document(s) URINALYSIS [facility] URINALYSIS SOURCE Clean Catch [facility] ital COLOR yellow NORMAL: Yellow [facility] CLARITY clear NORMAL: Clear [facility] Specific gravity of Urine by Test strip 1.015 1.001 - 1.030 [facility] pH 6 5 - 9 [facility] Glucose [Mass/volume] in Urine by Test strip NORM NORMAL: Negat [facility] Bilirubin.total [Presence] in Urine by Test strip NEG NORMAL: Negative [facility] Ketones [Presence] in Urine by Test strip NEG NORMAL: Negative [facility] Protein [Mass/volume] in Urine by Test strip NEG [facility] Nitrite [Presence] in Urine by Test strip NEG NORMAL: Negative [facility] BLOOD NEG NORMAL: Negative [facility] Leukocyte esterase [Presence] in Urine by Test strip 100 ZEESHAN L: Negative A [facility] Urobilinogen [Mass/volume] in Urine by Test strip NOR less hannah n 1.0 mg/dL [facility] MICROSCOPIC See Below [facility] ital WBC 5 - 7 NORMAL: NONE SEEN A [facility] Erythrocytes [#/volume] in Urine by Test strip 0 - 1 NORMAL: NON E SEEN [facility] EPITHELIAL MODERATE NORMAL: NONE SEEN A [facility] Bacteria [Presence] in Urine sediment by Light microscopy 2+ MOD NORMAL: NONE SEEN A [facility] Procedure Social History Code Duration Value Status Description Data Source(s ) Smoking 05/07/2020 12:00:00 AM EST Unknown if ever smoked comp leted Unknown if ever smoked [facility] ([facility]) Smoking 05/09/2019 12:00:00 AM EST Unknown if ever smoked comp leted Unknown if ever smoked [facility] ([facility]) Smoking 05/04/2019 12:00:00 AM EST Unknown if ever smoked comp leted Unknown if ever smoked [facility] ([facility]) Smoking 04/25/2019 12:00:00 AM EST Unknown if ever smoked comp leted Unknown if ever smoked [facility] ([facility]) Vital Signs ID Date Data Source UNK Name Value Range Interpretation Code Description Data Source(s) Body weight 3814 [oz_av] 3814 [oz_av] DAIANA ([facility]) Systolic blood pressure 101 mm[Hg] 101 mm[Hg] A [facility]) Body mass index (BMI) [Ratio] 42.2 kg/m2 42.2 k g/m2 DAIANA ([facility]) Body height 63 [in_i] 63 [in_i] DAIANA ([facility]) Diastolic blood pressure 72 mm[Hg] 72 mm[Hg] DAIANA ([facility]) Body weight 3251.04 [oz_av] 3251.04 [oz_av] ATH VAMSI ([facility]) Systolic blood pressure 102 mm[Hg] 102 mm[Hg] A [facility]) Body height 63 [in_i] 63 [in_i] DAIANA ([facility]) Diastolic blood pressure 79 mm[Hg] 79 mm[Hg] DAIANA ([facility]) Body weight 3251.04 [oz_av] 3251.04 [oz_av] ATH VAMSI ([facility]) Systolic blood pressure 102 mm[Hg] 102 mm[Hg] A [facility] ([facility]) Body height 63 [in_i] 63 [in_i] DAIANA ([facility]) Diastolic blood pressure 79 mm[Hg] 79 mm[Hg] DAIANA ([facility]) Patient Treatment Plan of Care Planned Activity Planned Date Details Description Data Source (s) Trazodone Hydrochloride 100 MG Oral Tablet DAIANA ([facility]) quetiapine 50 MG Oral Tablet [facility]IANA ([facility]) quetiapine 100 MG Oral Tablet [facility]IANA ([facility]) Prednisone 10 MG Oral Tablet DAIANA ([facility]) liothyronine sodium 0.005 MG Oral Tablet DAIANA ([facility]) Levothyroxine Sodium 0.1 MG Oral Tablet DAIANA ([facility]) gabapentin 600 MG Oral Tablet DAIANA ([facility]) gabapentin 300 MG Oral Capsule DAIANA ([facility]) doxycycline hyclate 100 MG Oral Tablet DAIANA ([facility]) 24 HR Bupropion Hydrochloride 150 MG Extended Release Oral Tablet DAIANA ([facility])
[2020-05-22] MEDS ORDERED: ALBUTEROL 90 MCG/ACT 8GM HFA INHALER INH PRN (18:30)
[2020-05-22] MEDS: traZODone 50 MG TAB PO PRN (20:06)
[2020-05-22] MEDS: QUEtiapine FUMERATE XR 50 MG TABER PO SCH (21:00)
--- NOTE | 2020-05-22 21:04 | ECGEPIP ---
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
[2020-05-23] MEDS: LEVOTHYROXINE 150MCG TABLET (0.15MG) PO SCH (06:04)
[2020-05-23] MEDS: buPROPion **XL** TABLET 150MG (WELLBUTRIN XL) PO SCH (08:49)
[2020-05-23] MEDS: GABAPENTIN 400MG CAP PO SCH ×3 (08:49→20:41)
[2020-05-23] MEDS: QUEtiapine FUMARATE 25 MG TAB PO SCH ×2 (08:49→15:37)
[2020-05-23] MEDS: ESCITALOPRAM OXALATE 10 MG TAB (LEXAPRO) PO SCH (08:49)
[2020-05-23] MEDS: NICOTINE 21MG/24HR 1 EA TRANSDERMAL TD SCH (10:07)
--- NOTE | 2020-05-23 10:27 | HPE ---
HISTORY AND PHYSICAL DATE OF ADMISSION: 05/22/2020 HISTORY OF PRESENT ILLNESS: This is a hospitalist generated history and physical on Deborah Webb who was in the inpatient mental health unit. She was just discharged from the inpatient mental health unit on 03/06/2020. Had a history and physical on 03/05/2020, which was essentially unchanged. Admitted 02/27 to 03/05 with acute respiratory failure with hypoxia and hypercarbia due to rhinovirus infection and respiratory depression for high dose of methadone and gabapentin, and was on BiPAP at that time. PAST MEDICAL HISTORY: 1. Morbid obesity. 2. TAVO. 3. Sarcoidosis with mediastinal lymphadenopathy. 4. Hypothyroidism. 5. 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 6. Normal spirometry 07/2018. 7. History of polysubstance abuse. 8. Bipolar disorder. 9. Depression. 10. Noncompliance. PAST SURGICAL HISTORY: 1. C-sections. 2. Bronchoscopy. FAMILY HISTORY: Negative for inheritable diseases. SOCIAL HISTORY: She smokes. REVIEW OF SYSTEMS: No cough, wheeze, fever, chills, or bleeding problems. PHYSICAL EXAMINATION: VITAL SIGNS: As listed. GENERAL APPEARANCE: Alert and conversant, in no distress. HEENT: Unremarkable. LUNGS: Clear. HEART: Regular rhythm without murmur. ABDOMEN: Soft and nontender with no masses. EXTREMITIES: No peripheral edema. LABORATORY DATA: White count was 5.2, hemoglobin 12.7, platelets 136,000. COVID test was negative. Sodium 139, potassium 4.5, BUN 7, creatinine 1.5 which is baseline, and glucose 92. TSH was 90, which is actually the lowest TSH she has had this year; it has been as high as 270s. IMPRESSION: 1. Hypothyroidism. She is grossly noncompliant with her thyroid replacement per review of history. She is back on her usual replacement, which is levothyroxine 150 mcg daily. She will have a repeat free T4 and TSH in six to eight weeks. 2. History of sarcoidosis. She is to follow-up with her primary care provider and manager room after discharge. 3. Chronic kidney disease (CKD). Renal function is stable. She should follow with a skinning machine feeder after discharge. 4. Various psychiatric conditions. Treatment per psychiatry.
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
[2020-05-23 16:03] VITALS: BP 116/62
[2020-05-23] MEDS: QUEtiapine FUMERATE XR 50 MG TABER PO SCH (20:40)
[2020-05-23] MEDS: traZODone 50 MG TAB PO PRN (20:42)
[2020-05-24 05:55] VITALS: BP 133/83
[2020-05-24] MEDS: LEVOTHYROXINE 150MCG TABLET (0.15MG) PO SCH (06:11)
[2020-05-24] MEDS ORDERED: INFLUENZA QUADRIVALENT PF VACCINE 0.5ML SYRINGE IM ONE (09:00)
[2020-05-24] MEDS: buPROPion **XL** TABLET 150MG (WELLBUTRIN XL) PO SCH (09:46)
[2020-05-24] MEDS: ESCITALOPRAM OXALATE 10 MG TAB (LEXAPRO) PO SCH (09:46)
[2020-05-24] MEDS: QUEtiapine FUMARATE 25 MG TAB PO SCH ×2 (09:46→16:10)
[2020-05-24] MEDS: GABAPENTIN 400MG CAP PO SCH ×3 (09:46→20:12)
[2020-05-24] MEDS: NICOTINE 21MG/24HR 1 EA TRANSDERMAL TD SCH (09:46)
[2020-05-24] MEDS: METHADONE 10 MG TAB (S0109) PO SCH (09:47)
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
[2020-05-24 19:07] VITALS: BP 141/70
[2020-05-24] MEDS: QUEtiapine FUMERATE XR 50 MG TABER PO SCH (20:13)
[2020-05-24] MEDS: traZODone 50 MG TAB PO PRN (20:13)
[2020-05-25] MEDS: LEVOTHYROXINE 150MCG TABLET (0.15MG) PO SCH (06:01)
[2020-05-25 06:25] VITALS: BP 100/53
[2020-05-25] MEDS: METHADONE 10 MG TAB (S0109) PO SCH (08:43)
[2020-05-25] MEDS: buPROPion **XL** TABLET 150MG (WELLBUTRIN XL) PO SCH (08:43)
[2020-05-25] MEDS: ESCITALOPRAM OXALATE 10 MG TAB (LEXAPRO) PO SCH (08:43)
[2020-05-25] MEDS: NICOTINE 21MG/24HR 1 EA TRANSDERMAL TD SCH (08:43)
[2020-05-25] MEDS: QUEtiapine FUMARATE 25 MG TAB PO SCH ×2 (08:43→15:39)
[2020-05-25] MEDS: GABAPENTIN 400MG CAP PO SCH ×3 (08:44→20:52)
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
[2020-05-25 16:02] VITALS: BP 122/76
[2020-05-25] MEDS: QUEtiapine FUMERATE XR 50 MG TABER PO SCH (20:52)
[2020-05-25] MEDS: IBUPROFEN 600MG TAB PO PRN (20:52)
[2020-05-25] MEDS: traZODone 50 MG TAB PO PRN (20:52)
[2020-05-25] MEDS ORDERED: SENOKOT S TAB PO PRN (21:00)
[2020-05-25] MEDS ORDERED: MIRALAX *UNIT DOSE* 17GM PACKET PO PRN (21:00)
[2020-05-26] MEDS: LEVOTHYROXINE 150MCG TABLET (0.15MG) PO SCH (05:53)
[2020-05-26 07:08] VITALS: BP 120/62
[2020-05-26] MEDS: NICOTINE 21MG/24HR 1 EA TRANSDERMAL TD SCH (08:52)
[2020-05-26] MEDS: METHADONE 10 MG TAB (S0109) PO SCH (08:53)
[2020-05-26] MEDS: ESCITALOPRAM OXALATE 10 MG TAB (LEXAPRO) PO SCH (08:53)
[2020-05-26] MEDS: buPROPion **XL** TABLET 150MG (WELLBUTRIN XL) PO SCH (08:53)
[2020-05-26] MEDS: QUEtiapine FUMARATE 25 MG TAB PO SCH ×2 (08:53→15:37)
[2020-05-26] MEDS: GABAPENTIN 400MG CAP PO SCH ×3 (08:53→20:31)
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
[2020-05-26] MEDS: IBUPROFEN 600MG TAB PO PRN (14:22)
[2020-05-26 16:08] VITALS: BP 140/72
[2020-05-26] MEDS: QUEtiapine FUMERATE XR 50 MG TABER PO SCH (20:30)
[2020-05-26] MEDS: traZODone 50 MG TAB PO PRN (20:31)
[2020-05-27] MEDS: LEVOTHYROXINE 150MCG TABLET (0.15MG) PO SCH (05:57)
[2020-05-27 06:20] VITALS: BP 116/69
[2020-05-27] MEDS: ESCITALOPRAM OXALATE 10 MG TAB (LEXAPRO) PO SCH (08:14)
[2020-05-27] MEDS: METHADONE 10 MG TAB (S0109) PO SCH (08:14)
[2020-05-27] MEDS: buPROPion **XL** TABLET 150MG (WELLBUTRIN XL) PO SCH (08:14)
[2020-05-27] MEDS: GABAPENTIN 400MG CAP PO SCH ×3 (08:14→21:04)
[2020-05-27] MEDS: QUEtiapine FUMARATE 25 MG TAB PO SCH ×2 (08:14→16:00)
[2020-05-27] MEDS: NICOTINE 21MG/24HR 1 EA TRANSDERMAL TD SCH (08:15)
[2020-05-27] MEDS: IBUPROFEN 600MG TAB PO PRN (12:26)
[2020-05-27 16:07] VITALS: BP 114/70
[2020-05-27] MEDS: QUEtiapine FUMERATE XR 50 MG TABER PO SCH (21:03)
[2020-05-27] MEDS: traZODone 50 MG TAB PO PRN (21:04)
[2020-05-28] MEDS: LEVOTHYROXINE 150MCG TABLET (0.15MG) PO SCH (05:56)
[2020-05-28 06:51] VITALS: BP 115/6
[2020-05-28] MEDS: ESCITALOPRAM OXALATE 10 MG TAB (LEXAPRO) PO SCH (08:03)
[2020-05-28] MEDS: QUEtiapine FUMARATE 25 MG TAB PO SCH (08:03)
[2020-05-28] MEDS: GABAPENTIN 400MG CAP PO SCH ×3 (08:05→20:09)
[2020-05-28] MEDS: METHADONE 10 MG TAB (S0109) PO SCH (08:05)
[2020-05-28] MEDS: buPROPion **XL** TABLET 150MG (WELLBUTRIN XL) PO SCH (08:05)
[2020-05-28] MEDS: IBUPROFEN 600MG TAB PO PRN ×2 (08:06→20:30)
[2020-05-28] MEDS: NICOTINE 21MG/24HR 1 EA TRANSDERMAL TD SCH (08:06)
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
[2020-05-28 18:05] VITALS: BP 134/85
[2020-05-28] MEDS: QUEtiapine FUMERATE XR 50 MG TABER PO SCH (20:09)
[2020-05-28] MEDS: traZODone 50 MG TAB PO PRN (20:09)
[2020-05-29 06:00] VITALS: BP 110/56
[2020-05-29] MEDS: LEVOTHYROXINE 150MCG TABLET (0.15MG) PO SCH (06:19)
[2020-05-29] MEDS: ESCITALOPRAM OXALATE 10 MG TAB (LEXAPRO) PO SCH (08:06)
[2020-05-29] MEDS: GABAPENTIN 400MG CAP PO SCH ×3 (08:06→20:43)
[2020-05-29] MEDS: METHADONE 10 MG TAB (S0109) PO SCH (08:09)
[2020-05-29] MEDS: buPROPion **XL** TABLET 150MG (WELLBUTRIN XL) PO SCH (08:09)
[2020-05-29] MEDS: NICOTINE 21MG/24HR 1 EA TRANSDERMAL TD SCH (08:10)
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
[2020-05-29] MEDS: IBUPROFEN 600MG TAB PO PRN (11:28)
[2020-05-29] MEDS: OLANZapine ORAL DISINTEGRATING TAB 5MG PO PRN (17:34)
[2020-05-29 18:47] VITALS: BP 138/72
[2020-05-29] MEDS: QUEtiapine FUMERATE XR 50 MG TABER PO SCH (20:43)
[2020-05-29] MEDS: traZODone 50 MG TAB PO PRN (20:43)
[2020-05-30] MEDS: OLANZapine ORAL DISINTEGRATING TAB 5MG PO PRN (00:03)
[2020-05-30 06:00] VITALS: BP 109/59
[2020-05-30] MEDS: LEVOTHYROXINE 150MCG TABLET (0.15MG) PO SCH (06:16)
[2020-05-30] MEDS: buPROPion **XL** TABLET 150MG (WELLBUTRIN XL) PO SCH (08:05)
[2020-05-30] MEDS: METHADONE 10 MG TAB (S0109) PO SCH (08:05)
[2020-05-30] MEDS: GABAPENTIN 400MG CAP PO SCH (08:05)
[2020-05-30] MEDS: ESCITALOPRAM OXALATE 10 MG TAB (LEXAPRO) PO SCH (08:05)
[2020-05-30] MEDS ORDERED: ALBU8.5H INH (08:09)
[2020-05-30] MEDS ORDERED: SERO150T2 PO (08:09)
[2020-05-30] MEDS ORDERED: BUPR300T92 PO (08:09)
[2020-05-30] MEDS ORDERED: BUSP5TA PO (08:09)
[2020-05-30] MEDS: NICOTINE 21MG/24HR 1 EA TRANSDERMAL TD SCH (08:09)
[2020-05-30] MEDS ORDERED: LEXA1TAB PO (08:09)
[2020-05-30] MEDS ORDERED: SENN-52 PO (08:09)
[2020-05-30] MEDS ORDERED: LEVO150T7 PO (08:09)
[2020-05-30] MEDS ORDERED: GABA800T4 PO (08:09)
[2020-05-30] MEDS ORDERED: LEXA1TAB2 PO (08:15)
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
== END 2020-05-30 14:59 | disposition home or self-care (01) | DRG 754 ==
LOC: M ED 12:06 → M ED INP 05-22 14:15 → M PSY 05-22 17:09
PROVIDERS: ADMIT Psychiatry & Neurology Psychiatry; ATTEND Psychiatry & Neurology Psychiatry
DX: F32.9 Major depressive disorder, single episode, unspecified (principal); E66.01 Morbid (severe) obesity due to excess calories; R45.851 Suicidal ideations; N18.30 Chronic kidney disease, stage 3 unspecified; F79 Unspecified intellectual disabilities; Z91.19 Patient's noncompliance with other medical treatment and regimen; F41.9 Anxiety disorder, unspecified; F11.90 Opioid use, unspecified, uncomplicated; F60.3 Borderline personality disorder; Z79.899 Other long term (current) drug therapy; G47.33 Obstructive sleep apnea (adult) (pediatric); E03.9 Hypothyroidism, unspecified; D86.9 Sarcoidosis, unspecified

== ENCOUNTER 2020-06-24 14:45 | Inpatient (IN) | payer OTHER ==
[~2020-06-24] VITALS: Ht 160 cm; Wt 111.2 kg
[~2020-06-24 14:45] MED LIST changes: +BUPR150T12 PO; -BUPR150T4 PO; +SENN-52 PO
[2020-06-24] MEDS ORDERED: GABAPENTIN 400MG CAP PO ONE (15:50)
[2020-06-24] MEDS ORDERED: ACETAMINOPHEN TAB 650MG DOSE (2X325MG) PO ONE (15:50)
[2020-06-24 15:53] LABS: AMPHETAMINES LEVEL URINE NEGATIVE (NEGATIVE); BARBITURATES URINE NEGATIVE (NEGATIVE); BENZODIAZEPINES URINE NEGATIVE (NEGATIVE); CANNABINOIDS URINE NEGATIVE (NEGATIVE); COCAINE METABOLITE URINE NEGATIVE (NEGATIVE); METHADONE URINE POSITIVE (NEGATIVE); OPIATES URINE NEGATIVE (NEGATIVE); PHENCYCLIDINE URINE NEGATIVE (NEGATIVE)
[2020-06-24 16:01] LABS: HEMOGLOBIN 11.9 g/dl (12.0-15.5); MEAN CORPUSCULAR HEMOGLOBIN 30.5 pg (27.0-33.0); MEAN CORPUSCULAR HGB CONC 32.2 g/dl (32.0-36.5); MEAN CORPUSCULAR VOLUME 94.9 fl (80.0-96.0); PLATELET COUNT, AUTOMATED 148 10^3/uL (150-450); WHITE BLOOD COUNT 3.8 10^3/uL (4.0-10.0)
[2020-06-24 16:20] LABS: ACETAMINOPHEN LEVEL < 2.0 UG/ML (10.0-30.0); ALBUMIN 3.8 GM/DL (3.2-5.2); ALT/SGPT 19 U/L (12-78); BILIRUBIN,DIRECT 0.1 MG/DL (0.0-0.2); BILIRUBIN,TOTAL 0.3 MG/DL (0.2-1.0); BLOOD UREA NITROGEN 11 MG/DL (7-18); CALCIUM LEVEL 8.7 MG/DL (8.5-10.1); CARBON DIOXIDE LEVEL 29 MEQ/L (21-32); CHLORIDE LEVEL 108 MEQ/L (98-107); CREATININE FOR GFR 1.31 MG/DL (0.55-1.30); ETHYL ALCOHOL (ETHANOL) < 0.003 % (0.000-0.010); GLOMERULAR FILTRATION RATE 48.4 (>60); GLUCOSE, FASTING 93 MG/DL (70-100); HCG, SERUM QUANTITATIVE < 1.0 MIU/ML; POTASSIUM SERUM 4.5 MEQ/L (3.5-5.1); SALICYLATE LEVEL 2.7 MG/DL (5.0-30.0); SODIUM LEVEL 142 MEQ/L (136-145); TOTAL PROTEIN 6.8 GM/DL (6.4-8.2)
[2020-06-24] MEDS ORDERED: BACITRACIN OINTMENT 30GM TUBE TOP PRN (16:50)
[2020-06-24 17:12] LABS: RSV AMPLIFICATION NEGATIVE (NEGATIVE)
[2020-06-24] MEDS ORDERED: MOM 30ML SUSPENSION UDC PO PRN (19:00)
[2020-06-24] MEDS ORDERED: MAALOX 30 ML SUSP *UDC PO PRN (19:00)
[2020-06-24] MEDS ORDERED: traZODone 50 MG TAB PO PRN ×2 (19:00→22:30)
[2020-06-24] MEDS ORDERED: BUPR300T92 PO (19:24)
[2020-06-24] MEDS ORDERED: LEXA1TAB PO (19:24)
[2020-06-24] MEDS ORDERED: SERO150T2 PO (19:24)
[2020-06-24] MEDS ORDERED: LEVO200T4 PO (19:24)
[2020-06-24] MEDS ORDERED: LEXA1TAB2 PO (19:24)
[2020-06-24] MEDS ORDERED: VENTAER INH (19:24)
[2020-06-24] MEDS ORDERED: GABA800T4 PO (19:24)
[2020-06-24] MEDS: GABAPENTIN 400MG CAP PO SCH (21:00)
[2020-06-24 21:33] VITALS: BP 118/69
[2020-06-25] MEDS: LEVOTHYROXINE 100MCG TABLET (0.1MG) PO SCH (06:11)
[2020-06-25 06:30] VITALS: BP 103/57
[2020-06-25] MEDS: GABAPENTIN 400MG CAP PO SCH ×3 (08:40→20:09)
[2020-06-25] MEDS: ESCITALOPRAM OXALATE 10 MG TAB (LEXAPRO) PO SCH (08:40)
[2020-06-25] MEDS: buPROPion **XL** TABLET 150MG (WELLBUTRIN XL) PO SCH (08:40)
[2020-06-25] MEDS: METHADONE 10 MG TAB (S0109) PO SCH (08:41)
[2020-06-25] MEDS ORDERED: ESCITALOPRAM OXALATE 10 MG TAB (LEXAPRO) PO SCH (09:00)
--- NOTE | 2020-06-25 11:15 | HPEPDOC ---
General Date of Admission Jun 24, 2020 at 19:00 Date of Service: Jun 25, 2020 Chief Complaint The patient is a 40-year-old female admitted with a reason for visit of Unspecified Depressive Disorder. History of Present Illness 40 year old female with PMH of Morbid Obesity, TAVO , Sarcoidosis, CKD stage 3, medullary nephrocalcinosis, was admitted to [facility] for unspecified depression. She was having auditory hallucinations at home telling her to slit her wrists. She tried to slit her wrist , superficial cut, so her mother called the police. I am seeing the patient for medical history and physical. Today she complained of SOB on exertion which is chronic and not any worse than at baseline. Denies any other complaints. Home Medications Scheduled Bupropion HCl (Bupropion Xl) 300 Mg Tab.er.24h, 300 MG PO DAILY, (Reported) Escitalopram Oxalate (Lexapro) 10 Mg Tablet, 10 MG PO DAILY, (Reported) takes with 20mg to =30mg Escitalopram Oxalate (Lexapro) 20 Mg Tablet, 20 MG PO DAILY, (Reported) takes with 10mg to=30mg Gabapentin (Gabapentin) 800 Mg Tablet, 800 MG PO TID, (Reported) Levothyroxine Sodium (Levothyroxine Sodium) 200 Mcg Tablet, 200 MCG PO QAM, (Reported) Methadone HCl (Methadone HCl) 10 Mg/1 Ml Oral.conc, 150 MG PO DAILY, (Reported) Quetiapine Fumarate (Seroquel Xr) 150 Mg Tab.er.24h, 150 MG PO QHS, (Reported) Scheduled PRN Albuterol Sulfate (Ventolin Hfa) 18 Gm Hfa.aer.ad, 2 PUFFS INH Q4H PRN for SHORTNESS OF BREATH, (Reported) Trazodone HCl (Trazodone HCl) 150 Mg Tablet, 150 MG PO QHS PRN for SLEEP, (Reported) Allergies Coded Allergies: No Known Allergies (Verified , 10/22/18) Past Medical History Medical History Intellectual disability Morbid obesity TAVO CKD stage 3 Hypothyroidism, Sarcoidosis with severely enlarged mediastinal lymphadenopathy with 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 Spirometry was normal in the office in July 2018 Nicotine dependence Medullary Nephrocalcinosis Bipolar disorder history of noncomplianceMajor Depressive Disorder Unspecified Anxiety Disorder Opioid Use Disorder on Methadone Borderline personality disorder Surgical History c section Bronchoscopies Family History Significant Family History: Diabetes, Heart disease, Hyperlipidemia Social History * Smoker: current smoker Alcohol: Denies Drugs: other (methadone) A-FIB/CHADSVASC A-FIB History Current/History of A-Fib/PAF?: No Review of Systems Constitutional: Denies: Chills, Fever, Night Sweats Eyes: Denies: Pain, Vision change ENT: Denies: Head Aches, Ear Pain, Dysphagia Skin: Denies: Rash, Lesions, Breakdown Pulmonary: Reports: Dyspnea (on exertion) Cardiovascular: Denies: Chest Pain, Palpitations, Orthopnea, Paroxysmal Noc. Dyspnea, Lt Headedness Gastrointestinal: Denies: Nausea, Vomiting, Abdominal Pain, Diarrhea Genitourinary: Denies: Dysuria, Frequency, Incontinence, Retention Hematologic: Denies: Bruising, Bleeding Excessively Physical Examination General Exam: Positive: Alert, Cooperative, No Acute Distress Eye Exam: Positive: PERRLA, Conjunctiva & lids normal, EOMI; Negative: Sclera icteric ENT Exam: Positive: Atraumatic, Mucous membr. moist/pink, Pharynx Normal Neck Exam: Positive: Supple; Negative: JVD, thyromegaly Chest Exam: Positive: Clear to auscultation, Normal air movement Heart Exam: Positive: Rate Normal, Regular Rhythm, Normal S1, Normal S2; Negative: Murmurs, Rubs Abdomen Exam: Positive: Normal bowel sounds, Soft, Other (obese); Negative: Tenderness Extremity Exam: Negative: Clubbing, Cyanosis, Edema Vital Signs Vital Signs Date Time Temp Pulse Resp B/P (MAP) Pulse Ox O2 Delivery O2 Flow Rate FiO2 06/25/20 06:30 98.5 68 16 103/57 (72) 99 Room Air Laboratory Data Labs 24H Laboratory Tests 2 06/24/20 15:17: Urine Opiates Screen NEGATIVE, Urine Methadone Screen POSITIVEH, Urine Barbiturates Screen NEGATIVE, Urine Phencyclidine Screen NEGATIVE, Urine Amphetamines Screen NEGATIVE, Urine Benzodiazepines Screen NEGATIVE, Urine Cocaine Metabolite Screen NEGATIVE, Urine Cannabinoids Screen NEGATIVE 06/24/20 15:26: Nucleated Red Blood Cells % (auto) 0.0, Anion Gap 5L, Glomerular Filtration Rate 48.4L, Calcium Level 8.7, Total Bilirubin 0.3, Direct Bilirubin 0.1, Aspartate Amino Transf (AST/SGOT) 16, Alanine Aminotransferase (ALT/SGPT) 19, Alkaline Phosphatase 111, Total Protein 6.8, Albumin 3.8, Albumin/Globulin Ratio 1.3, Thyroid Stimulating Hormone (TSH) 42.300H, Human Chorionic Gonadotropin, Quant < 1.0, Salicylates Level 2.7L, Acetaminophen Level < 2.0L, Ethyl Alcohol Level < 0.003 06/24/20 16:26: Coronavirus (COVID-19)(PCR) NEGATIVE, Influenza Type A (RT-PCR) NEGATIVE, Influenza Type B (RT-PCR) NEGATIVE, Respiratory Syncytial Virus (PCR) NEGATIVE CBC/BMP Laboratory Tests 06/24/20 15:26 Assessment/Plan 40 year old female with PMH of Morbid Obesity, TAVO , Sarcoidosis, CKD stage 3, medullary nephrocalcinosis, was admitted to [facility] for unspecified depression. She was having auditory hallucinations at home telling her to slit her wrists. She tried to slit her wrist , superficial cut, so her mother called the police. I am seeing the patient for medical history and physical. Major Depressive Disorder/ Unspecified Anxiety Disorder/ Borderline personality disorder As per psychiatry Opiod use disorder on Methadone. Morbid obesity/TAVO CKD stage 3 likely due to medullary nephrocalcinosis creatinine at baseline. 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 Spirometry was normal in the office in July 2018 on albuterol prn Plan / VTE VTE Prophylaxis Ordered?: No ROB MAYEN MD Jun 25, 2020 09:05
[2020-06-25] MEDS ORDERED: QUEtiapine FUMARATE 25 MG TAB PO ONE (14:30)
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
--- NOTE | 2020-06-25 17:30 | ECGEPIP ---
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
[2020-06-25 18:32] VITALS: BP 100/56
[2020-06-25] MEDS: QUEtiapine FUMERATE XR 50 MG TABER PO SCH (20:09)
[2020-06-25] MEDS: ACETAMINOPHEN TAB 650MG DOSE (2X325MG) PO PRN (21:49)
[2020-06-26] MEDS: LEVOTHYROXINE 100MCG TABLET (0.1MG) PO SCH (05:51)
[2020-06-26 06:44] VITALS: BP 117/61
[2020-06-26] MEDS: GABAPENTIN 400MG CAP PO SCH ×3 (08:03→21:14)
[2020-06-26] MEDS: METHADONE 10 MG TAB (S0109) PO SCH (08:03)
[2020-06-26] MEDS: ESCITALOPRAM OXALATE 10 MG TAB (LEXAPRO) PO SCH (08:03)
[2020-06-26] MEDS: buPROPion **XL** TABLET 150MG (WELLBUTRIN XL) PO SCH (08:03)
[2020-06-26] MEDS: QUEtiapine FUMARATE 25 MG TAB PO SCH ×2 (08:35→15:21)
[2020-06-26 08:42] LABS: CHOLESTEROL RISK RATIO 5.216 (<5)
[2020-06-26] MEDS: ALBUTEROL 90 MCG/ACT 8GM HFA INHALER INH PRN (10:11)
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
[2020-06-26] MEDS ORDERED: QUEtiapine FUMARATE 25 MG TAB PO SCH (16:00)
[2020-06-26 16:58] VITALS: BP 130/67
[2020-06-26] MEDS: PRAZOSIN 1 MG CAP PO SCH (21:14)
[2020-06-26] MEDS: QUEtiapine FUMERATE XR 50 MG TABER PO SCH (21:35)
[2020-06-27] MEDS: LEVOTHYROXINE 100MCG TABLET (0.1MG) PO SCH (06:07)
[2020-06-27 07:03] VITALS: BP 123/83
[2020-06-27] MEDS: GABAPENTIN 400MG CAP PO SCH ×3 (08:41→20:55)
[2020-06-27] MEDS: ACETAMINOPHEN TAB 650MG DOSE (2X325MG) PO PRN ×3 (08:41→21:23)
[2020-06-27] MEDS: buPROPion **XL** TABLET 150MG (WELLBUTRIN XL) PO SCH (08:42)
[2020-06-27] MEDS: ESCITALOPRAM OXALATE 10 MG TAB (LEXAPRO) PO SCH (08:43)
[2020-06-27] MEDS: QUEtiapine FUMARATE 25 MG TAB PO SCH ×2 (08:43→16:22)
[2020-06-27] MEDS: METHADONE 10 MG TAB (S0109) PO SCH (08:44)
[2020-06-27] MEDS ORDERED: hydrOXYzine 50 MG TAB PO SCH (10:10)
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
[2020-06-27 17:05] VITALS: BP 115/63
[2020-06-27] MEDS: PRAZOSIN 1 MG CAP PO SCH (20:57)
[2020-06-27] MEDS: QUEtiapine FUMERATE XR 50 MG TABER PO SCH (20:58)
[2020-06-28] MEDS: BENZOCAINE 10% 9GM TUBE (ANBESOL) TOP PRN ×3 (02:43→20:06)
[2020-06-28] MEDS: LEVOTHYROXINE 100MCG TABLET (0.1MG) PO SCH (05:52)
[2020-06-28] MEDS: ACETAMINOPHEN TAB 650MG DOSE (2X325MG) PO PRN ×3 (05:57→20:07)
[2020-06-28 06:47] VITALS: BP 105/61
[2020-06-28] MEDS: ESCITALOPRAM OXALATE 10 MG TAB (LEXAPRO) PO SCH (08:08)
[2020-06-28] MEDS: QUEtiapine FUMARATE 25 MG TAB PO SCH (08:08)
[2020-06-28] MEDS: buPROPion **XL** TABLET 150MG (WELLBUTRIN XL) PO SCH (08:08)
[2020-06-28] MEDS: METHADONE 10 MG TAB (S0109) PO SCH (08:08)
[2020-06-28] MEDS: GABAPENTIN 400MG CAP PO SCH ×3 (08:08→20:06)
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
[2020-06-28] MEDS ORDERED: NICOTINE POLACRILEX 2 MG GUM PO PRN (13:05)
[2020-06-28] MEDS: QUEtiapine FUMARATE 12.5 MG HALF-TAB PO SCH (16:14)
[2020-06-28] MEDS: hydrOXYzine 50 MG TAB PO PRN (17:11)
[2020-06-28 18:28] VITALS: BP 130/75
[2020-06-28 20:05] VITALS: BP 146/90
[2020-06-28] MEDS: PRAZOSIN 1 MG CAP PO SCH (20:05)
[2020-06-28] MEDS: traZODone 100 MG TAB PO SCH (20:06)
[2020-06-28] MEDS: QUEtiapine FUMERATE XR 50 MG TABER PO SCH (20:06)
[2020-06-29] MEDS: BENZOCAINE 10% 9GM TUBE (ANBESOL) TOP PRN ×4 (05:35→19:41)
[2020-06-29] MEDS: ACETAMINOPHEN TAB 650MG DOSE (2X325MG) PO PRN ×3 (05:35→21:04)
[2020-06-29] MEDS: LEVOTHYROXINE 100MCG TABLET (0.1MG) PO SCH (05:35)
[2020-06-29 06:24] VITALS: BP 95/50
[2020-06-29] MEDS: ESCITALOPRAM OXALATE 10 MG TAB (LEXAPRO) PO SCH (08:35)
[2020-06-29] MEDS: QUEtiapine FUMARATE 12.5 MG HALF-TAB PO SCH ×2 (08:35→15:31)
[2020-06-29] MEDS: buPROPion **XL** TABLET 150MG (WELLBUTRIN XL) PO SCH (08:36)
[2020-06-29] MEDS: GABAPENTIN 400MG CAP PO SCH ×3 (08:36→21:03)
[2020-06-29] MEDS: METHADONE 10 MG TAB (S0109) PO SCH (08:37)
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
[2020-06-29 16:45] VITALS: BP 115/81
[2020-06-29] MEDS: hydrOXYzine 50 MG TAB PO PRN (19:48)
[2020-06-29] MEDS: PRAZOSIN 1 MG CAP PO SCH (21:00)
[2020-06-29] MEDS: QUEtiapine FUMERATE XR 50 MG TABER PO SCH (21:03)
[2020-06-29] MEDS: traZODone 100 MG TAB PO SCH (21:04)
[2020-06-30] MEDS: ACETAMINOPHEN TAB 650MG DOSE (2X325MG) PO PRN ×3 (03:02→15:14)
[2020-06-30] MEDS: BENZOCAINE 10% 9GM TUBE (ANBESOL) TOP PRN ×5 (03:02→20:50)
[2020-06-30] MEDS: LEVOTHYROXINE 100MCG TABLET (0.1MG) PO SCH (06:01)
[2020-06-30 06:47] VITALS: BP 91/46
[2020-06-30] MEDS: ESCITALOPRAM OXALATE 10 MG TAB (LEXAPRO) PO SCH (08:17)
[2020-06-30] MEDS: GABAPENTIN 400MG CAP PO SCH ×3 (08:17→20:49)
[2020-06-30] MEDS: QUEtiapine FUMARATE 12.5 MG HALF-TAB PO SCH ×2 (08:17→15:10)
[2020-06-30] MEDS: buPROPion **XL** TABLET 150MG (WELLBUTRIN XL) PO SCH (08:17)
[2020-06-30] MEDS: METHADONE 10 MG TAB (S0109) PO SCH (08:18)
[2020-06-30 17:54] VITALS: BP 111/77
[2020-06-30] MEDS ORDERED: IBUPROFEN 800 MG TAB PO PRN (19:00)
[2020-06-30] MEDS: hydrOXYzine 50 MG TAB PO PRN (19:50)
[2020-06-30] MEDS: PRAZOSIN 1 MG CAP PO SCH (20:40)
[2020-06-30] MEDS: traZODone 100 MG TAB PO SCH (20:49)
[2020-06-30] MEDS: QUEtiapine FUMERATE XR 50 MG TABER PO SCH (20:50)
[2020-07-01] MEDS: BENZOCAINE 10% 9GM TUBE (ANBESOL) TOP PRN ×2 (04:23→16:28)
[2020-07-01] MEDS: ACETAMINOPHEN TAB 650MG DOSE (2X325MG) PO PRN ×3 (04:24→21:45)
[2020-07-01] MEDS: LEVOTHYROXINE 100MCG TABLET (0.1MG) PO SCH (06:14)
[2020-07-01 06:31] VITALS: BP 108/58
[2020-07-01] MEDS: QUEtiapine FUMARATE 12.5 MG HALF-TAB PO SCH ×2 (08:36→15:03)
[2020-07-01] MEDS: GABAPENTIN 400MG CAP PO SCH ×3 (08:36→21:44)
[2020-07-01] MEDS: METHADONE 10 MG TAB (S0109) PO SCH (08:36)
[2020-07-01] MEDS: AUGMENTIN 875 MG TAB PO SCH ×2 (08:36→21:44)
[2020-07-01] MEDS: buPROPion **XL** TABLET 150MG (WELLBUTRIN XL) PO SCH (08:37)
[2020-07-01] MEDS: ESCITALOPRAM OXALATE 10 MG TAB (LEXAPRO) PO SCH (08:37)
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
[2020-07-01] MEDS ORDERED: IBUPROFEN 800 MG TAB PO ONE (11:00)
[2020-07-01] MEDS: hydrOXYzine 50 MG TAB PO PRN (15:03)
[2020-07-01 17:30] VITALS: BP 121/70
[2020-07-01] MEDS: PRAZOSIN 1 MG CAP PO SCH (21:00)
[2020-07-01] MEDS: traZODone 100 MG TAB PO SCH (21:44)
[2020-07-01] MEDS: QUEtiapine FUMERATE XR 50 MG TABER PO SCH (21:45)
[2020-07-02] MEDS: ACETAMINOPHEN TAB 650MG DOSE (2X325MG) PO PRN ×3 (04:58→19:47)
[2020-07-02] MEDS: LEVOTHYROXINE 100MCG TABLET (0.1MG) PO SCH (06:07)
[2020-07-02 06:38] VITALS: BP 93/51
[2020-07-02] MEDS: buPROPion **XL** TABLET 150MG (WELLBUTRIN XL) PO SCH (08:06)
[2020-07-02] MEDS: AUGMENTIN 875 MG TAB PO SCH ×2 (08:06→19:47)
[2020-07-02] MEDS: METHADONE 10 MG TAB (S0109) PO SCH (08:06)
[2020-07-02] MEDS: GABAPENTIN 400MG CAP PO SCH ×3 (08:06→19:48)
[2020-07-02] MEDS: QUEtiapine FUMARATE 12.5 MG HALF-TAB PO SCH ×2 (08:06→15:20)
[2020-07-02] MEDS: ESCITALOPRAM OXALATE 10 MG TAB (LEXAPRO) PO SCH (08:06)
[2020-07-02] MEDS: BENZOCAINE 10% 9GM TUBE (ANBESOL) TOP PRN (08:07)
[2020-07-02 16:40] VITALS: BP 126/68
[2020-07-02] MEDS: QUEtiapine FUMERATE XR 50 MG TABER PO SCH (19:48)
[2020-07-02] MEDS: PRAZOSIN 1 MG CAP PO SCH (19:48)
[2020-07-02] MEDS: traZODone 100 MG TAB PO SCH (19:48)
[2020-07-03] MEDS: ACETAMINOPHEN TAB 650MG DOSE (2X325MG) PO PRN ×3 (04:23→18:56)
[2020-07-03] MEDS: BENZOCAINE 10% 9GM TUBE (ANBESOL) TOP PRN ×2 (04:23→14:52)
[2020-07-03] MEDS: LEVOTHYROXINE 100MCG TABLET (0.1MG) PO SCH (06:12)
[2020-07-03] MEDS: QUEtiapine FUMARATE 12.5 MG HALF-TAB PO SCH ×2 (08:13→15:36)
[2020-07-03] MEDS: AUGMENTIN 875 MG TAB PO SCH ×2 (08:13→20:22)
[2020-07-03] MEDS: GABAPENTIN 400MG CAP PO SCH ×3 (08:13→20:22)
[2020-07-03] MEDS: ESCITALOPRAM OXALATE 10 MG TAB (LEXAPRO) PO SCH (08:13)
[2020-07-03] MEDS: METHADONE 10 MG TAB (S0109) PO SCH (08:13)
[2020-07-03] MEDS: buPROPion **XL** TABLET 150MG (WELLBUTRIN XL) PO SCH (08:13)
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
[2020-07-03 16:41] VITALS: BP 120/71
[2020-07-03] MEDS: traZODone 100 MG TAB PO SCH (20:23)
[2020-07-03] MEDS: QUEtiapine FUMERATE XR 50 MG TABER PO SCH (20:23)
[2020-07-04] MEDS: LEVOTHYROXINE 100MCG TABLET (0.1MG) PO SCH (06:09)
[2020-07-04 07:00] VITALS: BP 107/53
[2020-07-04] MEDS: GABAPENTIN 400MG CAP PO SCH ×3 (08:09→20:35)
[2020-07-04] MEDS: AUGMENTIN 875 MG TAB PO SCH ×2 (08:09→20:33)
[2020-07-04] MEDS: buPROPion **XL** TABLET 150MG (WELLBUTRIN XL) PO SCH (08:09)
[2020-07-04] MEDS: QUEtiapine FUMARATE 12.5 MG HALF-TAB PO SCH ×2 (08:09→16:06)
[2020-07-04] MEDS: METHADONE 10 MG TAB (S0109) PO SCH (08:09)
[2020-07-04] MEDS: ESCITALOPRAM OXALATE 10 MG TAB (LEXAPRO) PO SCH (08:10)
[2020-07-04 16:35] VITALS: BP 121/75
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
[2020-07-04] MEDS: QUEtiapine FUMERATE XR 50 MG TABER PO SCH (20:33)
[2020-07-04] MEDS: ACETAMINOPHEN TAB 650MG DOSE (2X325MG) PO PRN (20:34)
[2020-07-04] MEDS: traZODone 100 MG TAB PO SCH (20:34)
[2020-07-04 23:37] VITALS: BP 134/80
[2020-07-04] MEDS: ALBUTEROL 90 MCG/ACT 8GM HFA INHALER INH PRN (23:58)
--- NOTE | 2020-07-05 01:09 | IPNPDOC ---
Date Seen The patient was seen on 07/05/20. Progress Note Was called to beside by RN, as patient is complaining of bilateral leg swelling and erythema with tenderness to touch, R leg worse than L. The symptoms began approximately 3 days ago, which coincide with starting augmentin for a likely dental infection. Patient denies fevers, chills, chest pain, palpitations, n/v/d. She has chronic SOB due to her sarcoidosis but no acute worsening. PE: PERRLA, HEENT RRR, normal S1, S2 No wheezes, no crackles, good inspiratory effort Erythema on both legs, not well demarcated, without raised lesions. Non pruritic. Tender to touch. R swelling > L. Bilateral calf tenderness on palpation A/P. Possible drug rash from augment vs cellulitis vs DVT. Will obtain CBC, CMP, CRP, procal. Obtain bilateral venous duplex to r/o DVT. Given that the rash came on 3 days ago, coinciding with augmentin use (although rash is not characteristic, and only involves legs), will switch augmentin to alternate regime (clindamycin 300 TID PO). VS, I&O, 24H, Fishbone Vital Signs/I&O Vital Signs Date Time Temp Pulse Resp B/P (MAP) Pulse Ox O2 Delivery O2 Flow Rate FiO2 07/05/20 00:00 95 07/04/20 23:39 Room Air 07/04/20 23:37 98.7 75 18 134/80 (98) RAYNE DELGADO MD Jul 05, 2020 01:09
[2020-07-05] MEDS: LEVOTHYROXINE 100MCG TABLET (0.1MG) PO SCH (05:37)
[2020-07-05 06:38] VITALS: BP 135/63
--- NOTE | 2020-07-05 06:39 | REP ---
INDICATION: r/o DVT COMPARISON: None. TECHNIQUE: Beasley scale and color Doppler evaluation using linear high frequency transducer. FINDINGS: Ultrasound examination of the right and left lower extremity deep venous structures from the common femoral vein to the popliteal vein demonstrates normal compressibility flow and wave patterns in response to respiration and augmentation. There is no evidence for deep venous thrombosis. IMPRESSION: No evidence for deep venous thrombosis. <Electronically signed by Alvarado Muir > 07/05/20 0636
[2020-07-05] MEDS: ACETAMINOPHEN TAB 650MG DOSE (2X325MG) PO PRN (08:02)
[2020-07-05] MEDS: CLINDAMYCIN 150MG CAPSULE PO SCH ×2 (08:02→17:44)
[2020-07-05] MEDS: ESCITALOPRAM OXALATE 10 MG TAB (LEXAPRO) PO SCH (08:02)
[2020-07-05] MEDS: METHADONE 10 MG TAB (S0109) PO SCH (08:03)
[2020-07-05] MEDS: buPROPion **XL** TABLET 150MG (WELLBUTRIN XL) PO SCH (08:03)
[2020-07-05] MEDS: GABAPENTIN 400MG CAP PO SCH ×3 (08:03→20:15)
[2020-07-05] MEDS: QUEtiapine FUMARATE 12.5 MG HALF-TAB PO SCH ×2 (08:03→15:43)
[2020-07-05] MEDS: LACTOBACILLUS ACIDOPHILUS CAP (BACID) PO SCH ×2 (09:01→17:44)
[2020-07-05 11:37] LABS: BASO % 0.5 % (0.0-1.0); EOS # 0.2 10^3/uL (0.0-0.5); EOS % 5.3 % (0.0-3.0); HEMATOCRIT 34.5 % (36.0-47.0); HEMOGLOBIN 11.1 g/dl (12.0-15.5); LYMPH # 0.9 10^3/uL (1.5-5.0); LYMPH % 23.5 % (24.0-44.0); MEAN CORPUSCULAR HEMOGLOBIN 30.1 pg (27.0-33.0); MEAN CORPUSCULAR HGB CONC 32.2 g/dl (32.0-36.5); MEAN CORPUSCULAR VOLUME 93.5 fl (80.0-96.0); MONO # 0.4 10^3/uL (0.0-0.8); MONO % 10.6 % (2.0-8.0); NEUTROPHILS # 2.4 10^3/uL (1.5-8.5); NEUTROPHILS % 59.8 % (36.0-66.0); PLATELET COUNT, AUTOMATED 143 10^3/uL (150-450); RED BLOOD COUNT 3.69 10^6/uL (4.00-5.40)
[2020-07-05 14:25] LABS: ALBUMIN 3.5 GM/DL (3.2-5.2); BILIRUBIN,TOTAL 0.3 MG/DL (0.2-1.0); C REACTIVE PROTEIN QUANTITATIV 1.85 MG/DL (0.00-0.30); CALCIUM LEVEL 8.9 MG/DL (8.5-10.1); CREATININE FOR GFR 1.2 MG/DL (0.55-1.30); GLOMERULAR FILTRATION RATE 53.5 (>60); MAGNESIUM LEVEL 2.1 MG/DL (1.8-2.4); POTASSIUM SERUM 4.5 MEQ/L (3.5-5.1); TOTAL PROTEIN 6.6 GM/DL (6.4-8.2)
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
[2020-07-05] MEDS: hydrOXYzine 50 MG TAB PO PRN (15:43)
[2020-07-05 16:22] VITALS: BP 111/56
[2020-07-05] MEDS ORDERED: SERO150T2 PO (16:41)
[2020-07-05] MEDS ORDERED: LEXA1TAB PO (16:41)
[2020-07-05] MEDS ORDERED: LEXA1TAB2 PO (16:41)
[2020-07-05] MEDS ORDERED: QUET25TA3 PO (16:41)
[2020-07-05] MEDS ORDERED: TRAZ150T90 PO (16:41)
[2020-07-05] MEDS ORDERED: GABA800T4 PO (16:41)
[2020-07-05] MEDS ORDERED: BUPR300T92 PO (16:41)
[2020-07-05] MEDS: traZODone 100 MG TAB PO SCH (20:15)
[2020-07-05] MEDS: QUEtiapine FUMERATE XR 50 MG TABER PO SCH (20:15)
[2020-07-06] MEDS: CLINDAMYCIN 150MG CAPSULE PO SCH ×2 (00:30→08:21)
[2020-07-06 06:00] VITALS: BP 122/67
[2020-07-06] MEDS: LEVOTHYROXINE 100MCG TABLET (0.1MG) PO SCH (06:22)
[2020-07-06] MEDS: buPROPion **XL** TABLET 150MG (WELLBUTRIN XL) PO SCH (08:21)
[2020-07-06] MEDS: ESCITALOPRAM OXALATE 10 MG TAB (LEXAPRO) PO SCH (08:21)
[2020-07-06] MEDS: GABAPENTIN 400MG CAP PO SCH (08:21)
[2020-07-06] MEDS: QUEtiapine FUMARATE 12.5 MG HALF-TAB PO SCH (08:21)
[2020-07-06] MEDS: LACTOBACILLUS ACIDOPHILUS CAP (BACID) PO SCH (08:21)
[2020-07-06] MEDS: METHADONE 10 MG TAB (S0109) PO SCH (08:21)
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
== END 2020-07-06 08:56 | disposition home or self-care (01) | DRG 755 ==
LOC: M ED 14:45 → M ED INP 19:00 → M PSY 21:29
PROVIDERS: ADMIT Psychiatry & Neurology Child & Adolescent Psychiatry; ATTEND Psychiatry & Neurology Psychiatry
DX: F43.23 Adjustment disorder with mixed anxiety and depressed mood (principal); F25.9 Schizoaffective disorder, unspecified; R45.851 Suicidal ideations; F17.210 Nicotine dependence, cigarettes, uncomplicated; F43.10 Post-traumatic stress disorder, unspecified; F41.9 Anxiety disorder, unspecified; F60.3 Borderline personality disorder; F79 Unspecified intellectual disabilities; G47.33 Obstructive sleep apnea (adult) (pediatric); D86.1 Sarcoidosis of lymph nodes; N18.30 Chronic kidney disease, stage 3 unspecified; K08.89 Other specified disorders of teeth and supporting structures; R22.43 Localized swelling, mass and lump, lower limb, bilateral; E66.9 Obesity, unspecified; T36.0X5A Adverse effect of penicillins, initial encounter; Q61.5 Medullary cystic kidney; R06.02 Shortness of breath; E03.9 Hypothyroidism, unspecified; F11.11 Opioid abuse, in remission; Z91.19 Patient's noncompliance with other medical treatment and regimen; Z91.5 Personal history of self-harm; Z62.810 Personal history of physical and sexual abuse in childhood; Z91.410 Personal history of adult physical and sexual abuse; Z68.41 Body mass index [BMI] 40.0-44.9, adult; Z79.899 Other long term (current) drug therapy; Z20.822 Contact with and (suspected) exposure to COVID-19

== ENCOUNTER → 2020-07-17 | Outpatient (REF) | payer OTHER ==
[2020-07-17 17:48] LABS: BASO % 0.8 % (0.0-1.0); EOS # 0.2 10^3/uL (0.0-0.5); HEMATOCRIT 37.1 % (36.0-47.0); HEMOGLOBIN 12.1 g/dl (12.0-15.5); LYMPH % 21.7 % (24.0-44.0); MEAN CORPUSCULAR HEMOGLOBIN 29.6 pg (27.0-33.0); MEAN CORPUSCULAR HGB CONC 32.6 g/dl (32.0-36.5); MEAN CORPUSCULAR VOLUME 90.7 fl (80.0-96.0); MONO # 0.4 10^3/uL (0.0-0.8); MONO % 7.5 % (2.0-8.0); NEUTROPHILS # 3.1 10^3/uL (1.5-8.5); NEUTROPHILS % 64.4 % (36.0-66.0); PLATELET COUNT, AUTOMATED 185 10^3/uL (150-450); RED BLOOD COUNT 4.09 10^6/uL (4.00-5.40); WHITE BLOOD COUNT 4.8 10^3/uL (4.0-10.0)
[2020-07-17 18:15] LABS: CREATININE FOR GFR 1.14 MG/DL (0.55-1.30)
[2020-07-17 18:16] LABS: ALBUMIN 3.5 GM/DL (3.2-5.2); BILIRUBIN,TOTAL 0.3 MG/DL (0.2-1.0); CALCIUM LEVEL 8.8 MG/DL (8.5-10.1); CHOLESTEROL RISK RATIO 4.692 (<5); FREE T4 0.55 NG/DL (0.76-1.46); GLOMERULAR FILTRATION RATE 56.8 (>60); POTASSIUM SERUM 4.5 MEQ/L (3.5-5.1); THYROID STIMULATING HORMONE 6.03 uIU/ML (0.358-3.740); TOTAL PROTEIN 6.7 GM/DL (6.4-8.2)
== END ==
LOC: M LAB REF 16:20
PROVIDERS: ATTEND Nurse Practitioner Family
DX: E03.9 Hypothyroidism, unspecified (principal)

== ENCOUNTER 2020-08-23 19:46 | Inpatient (IN) | payer OTHER ==
[~2020-08-23] VITALS: Ht 160 cm; Wt 105.1 kg
[~2020-08-23 19:46] MED LIST changes: +GABA-283 PO; -GABA-845 PO
[2020-08-23] MEDS ORDERED: COMBIVENT RESPIMAT 100-20MCG INHALER 4GM INH ONE (22:15)
[2020-08-23 22:30] LABS: HEMATOCRIT 33.5 % (36.0-47.0); HEMOGLOBIN 10.7 g/dl (12.0-15.5); MEAN CORPUSCULAR HEMOGLOBIN 28.6 pg (27.0-33.0); MEAN CORPUSCULAR HGB CONC 31.9 g/dl (32.0-36.5); MEAN CORPUSCULAR VOLUME 89.6 fl (80.0-96.0); PLATELET COUNT, AUTOMATED 156 10^3/uL (150-450); RED BLOOD COUNT 3.74 10^6/uL (4.00-5.40); WHITE BLOOD COUNT 6.2 10^3/uL (4.0-10.0)
[2020-08-23 22:41] LABS: INR 0.91; PROTHROMBIN TIME 12.4 SECONDS (12.5-14.3)
[2020-08-23 22:42] LABS: PARTIAL THROMBOPLASTIN TIME 35.9 SECONDS (24.2-38.5)
[2020-08-23 22:44] LABS: D-DIMER QUANT 3289.32 ng/ml (<500)
[2020-08-23 22:50] LABS: HCG, SERUM QUALITATIVE NEGATIVE (NEGATIVE)
[2020-08-23 23:06] LABS: ACETAMINOPHEN LEVEL < 2.0 UG/ML (10.0-30.0); ALBUMIN 3.4 GM/DL (3.2-5.2); ALT/SGPT 19 U/L (12-78); BILIRUBIN,DIRECT 0.3 MG/DL (0.0-0.2); BILIRUBIN,TOTAL 0.8 MG/DL (0.2-1.0); BLOOD UREA NITROGEN 11 MG/DL (7-18); CALCIUM LEVEL 8.6 MG/DL (8.5-10.1); CARBON DIOXIDE LEVEL 29 MEQ/L (21-32); CHLORIDE LEVEL 102 MEQ/L (98-107); CREATININE FOR GFR 1.03 MG/DL (0.55-1.30); ETHYL ALCOHOL (ETHANOL) < 0.003 % (0.000-0.010); GLOMERULAR FILTRATION RATE > 60.0 (>60); GLUCOSE, FASTING 83 MG/DL (70-100); POTASSIUM SERUM 3.4 MEQ/L (3.5-5.1); SALICYLATE LEVEL 2.7 MG/DL (5.0-30.0); SODIUM LEVEL 139 MEQ/L (136-145); TOTAL PROTEIN 7.1 GM/DL (6.4-8.2)
[2020-08-23 23:08] LABS: ABG BASE EXCESS 2.7 (-2.0-2.0); ABG HCO3 24.7 MEQ/L (22.0-26.0); ABG O2 SATURATION 97.9 % (95.0-99.0); ABG PARTIAL PRESSURE CO2 28.9 mmHg (35.0-45.0); ABG PARTIAL PRESSURE O2 100.4 mmHg (75.0-100.0); ABG STANDARD HCO3 26.9 MEQ/L (22.0-26.0); ABG TOTAL CO2 25.5 MEQ/L (22.0-29.0); ABG pH (ARTERIAL) 7.549 UNITS (7.350-7.450)
[2020-08-23] MEDS ORDERED: POTASSIUM CHLORIDE 10% LIQ 20 MEQ/15 ML UDC PO ONE (23:10)
[2020-08-23] MEDS ORDERED: LORazepam 0.5 MG TAB PO ONE (23:15)
[2020-08-24] MEDS ORDERED: LORazepam 2 MG/ML VIAL IV STA (00:22)
[2020-08-24] MEDS ORDERED: LORazepam 2 MG/ML VIAL As Ordered ONE (00:30)
--- NOTE | 2020-08-24 00:55 | REPVR ---
PROCEDURE INFORMATION: Exam: XR Chest Exam date and time: 08/23/2020 11:44 PM Age: 40 years old Clinical indication: Other: Weakness TECHNIQUE: Imaging protocol: XR of the chest. Views: 1 view. COMPARISON: CR PORTABLE CHEST X-RAY 02/28/2020 8:46 PM FINDINGS: Lungs: Exam is limited by low lung volumes. Mild hypoventilatory changes. No infiltrates or masses. Pleural spaces: Unremarkable. No pleural effusion. No pneumothorax. Heart/Mediastinum: Unremarkable. No cardiomegaly. Bones/joints: Unremarkable. IMPRESSION: No acute findings. Electronically signed by: Mike Bullard On 08/24/2020 00:54:56 AM
[2020-08-24 01:25] LABS: CK-MB VALUE MASS 1.6 NG/ML (<3.6); CPK CREATINE PHOSPHOKINASE 102 U/L (26-192); FREE T4 0.28 NG/DL (0.76-1.46); MB/CK RELATIVE INDEX 1.57 (< OR =4); NT-PRO BNP 516 PG/ML (<125); TROPONIN I < 0.02 NG/ML (< 0.10)
[2020-08-24] MEDS ORDERED: HALOPERIDOL 5MG/ML VIAL (J1630 PER 1) IM STA (01:56)
--- NOTE | 2020-08-24 03:44 | HPEPDOC ---
[facility] Medical History & Physical Date of Admission August 24, 2020 Date of Service: August 24, 2020 Other Provider Re [facility] History and Physical TIME OF SERVICE: 405am CHIEF COMPLAINT: confusion HISTORY OF PRESENT ILLNESS: The HPI was obtained from ER staff, the pt was lethargic after receiving Ativan at the time of my evaluation. This 40 yr old F initially presented to the ER w various c/o, initially she c/o a headache, feeling unwell, and feeling cold. At one point in time she was yelling out Oh my God I need help, I am stressed out, I am stressed out. She was also disruptive and not following staffs requests to remain in her room and as a result was given Ativan. Her O2 sats transiently dropped to the 80s in the ER; it is unclear if this occurred before or after she received Ativan. REVIEW OF SYSTEMS: unobtainable bc pt was sedated PAST MEDICAL/ SURGICAL HISTORY: Intellectual disability, Schizoaffective disorder, anxiety, borderline personality disorder, PTSD, Morbid Obesity, TAVO, Sarcoidosis, medullary nephrocalcinosis, SOCIAL HISTORY: unemployed, former smoker on methadone FAMILY HISTORY: Diabetes, Heart disease, Hyperlipidemia ALLERGIES: Please see below. HOME MEDICATIONS: Please see below. PHYSICAL EXAMINATION: Vital Signs Date Time Temp Pulse Resp B/P (MAP) Pulse Ox O2 Delivery O2 Flow Rate FiO2 08/23/20 19:47 97.9 68 22 127/80 (96) 94 Room Air 08/23/20 22:21 2.0 GENERAL APPEARANCE: lethargic / intermittently arousable HEENT: NC displaced but O2 sats in mid 90s CARDIOVASCULAR: RRR/NMRG LUNGS: CTAB on RA/ no use of accessory muscles ABDOMEN: contour obese INTEGUMENT: not flushed or diaphoretic NEUROLOGICAL: unobtainable bc pt was sedated PSYCHIATRIC: unobtainable bc pt was sedated LABORATORY DATA: IMAGING: XR chest IMPRESSION: No acute findings MICROBIOLOGY: COVID 19 + ASSESSMENT: Ms Webb is a 40 yr old w Morbid Obesity, TAVO , Sarcoidosis, medullary nephrocalcinosis, Intellectual disability, Schizoaffective disorder, anxiety, & borderline personality disorder, who presented w c/o headache, feeling unwell, and feeling cold; she will be admitted for COVID 19 w questionable hypoxemia. PLAN: 1 COVID 19 I suspect the hypoxemia was due to sedatives rather than due to COVID; her ABG didn't show hypoxemia or hypercapnea he has TAVO and Sarcoidosis (its unclear if this is in remission) Plan: continuous pulse ox / supplemental O2 (target O2 sats between 92-95%) / contact & air borne precautions / gave one dose of Remdesivir & Solumedrol if the hypoxemia reoccurs the day time team may resume these meds / albuterol 2 Encephalopathy likely 2/2 Ativan Plan: neuro checks 3 Hypothyroidism Is likely uncontrolled due to poor compliance bc of her co-morbidities I dont thinks she has myxedema Plan: IV levothyroxine (70% of oral dose) until pt is more alert 4 Hypokalemia Given KCl Plan; f/ u repeat labs 5 Anemia Plan: f/u Iron studies & stool occult / may need gyne referral 6 Intellectual disability, Schizoaffective disorder, anxiety, & borderline personality disorder Plan: sitter / will ask the day time team to consult Psych and resume her meds once they have been reconciled by Pharm 7 Class 3 Obesity / TAVO Complicates care DVT px w treatment Lovenox (pt has elevated D-dimer and per staff declined CTA chest) and ASA Dispo: may need to be transferred to [facility] after at least 2 midnights stay Home Medications Scheduled Bupropion HCl (Bupropion Xl) 300 Mg Tab.er.24h, 300 MG PO DAILY for Depression Escitalopram Oxalate (Lexapro) 10 Mg Tablet, 10 MG PO DAILY for Depression takes with 20mg to =30mg Escitalopram Oxalate (Lexapro) 20 Mg Tablet, 20 MG PO DAILY for Depression takes with 10mg to=30mg Gabapentin (Gabapentin) 800 Mg Tablet, 800 MG PO TID for Anxiety Levothyroxine Sodium (Levothyroxine Sodium) 200 Mcg Tablet, 200 MCG PO QAM Methadone HCl (Methadone HCl) 10 Mg/1 Ml Oral.conc, 150 MG PO DAILY Quetiapine Fumarate (Seroquel Xr) 150 Mg Tab.er.24h, 150 MG PO QHS for Sleep Quetiapine Fumarate (Quetiapine Fumarate) 25 Mg Tablet, 12.5 MG PO BID@0900,1600 for anxiety Scheduled PRN Albuterol Sulfate (Ventolin Hfa) 18 Gm Hfa.aer.ad, 2 PUFFS INH Q4H PRN for SHORTNESS OF BREATH Trazodone HCl (Trazodone HCl) 150 Mg Tablet, 150 MG PO QHS PRN for SLEEP Allergies Coded Allergies: No Known Allergies (Verified , 10/22/18) A-FIB/CHADSVASC A-FIB History Current/History of A-Fib/PAF?: No Current PO Anticoag Therapy: No RUCHI SRINIVASAN MD August 24, 2020 03:44
[2020-08-24] MEDS ORDERED: LEVOTHYROXINE 100MCG (0.1MG) VIAL IV SCH (04:45)
[2020-08-24] MEDS ORDERED: REMDESIVIR 200 MG in NS 250 ML IV ONE (05:00)
[2020-08-24 05:54] LABS: FERRITIN 271 NG/ML (8-252); IRON (FE) 70 UG/DL (50-170); PERCENT SATURATION 21.5 % (13.2-45.0); TOTAL IRON BINDING CAPACITY 325 UG/DL (250-450)
[2020-08-24] MEDS ORDERED: ENOXAPARIN 60MG/0.6ML SYRINGE (J1650 PER 10MG) SC SCH (06:00)
[2020-08-24 06:03] LABS: HEMOGLOBIN A1c 5.4 %
[2020-08-24] MEDS ORDERED: SODIUM CHLORIDE 0.9% INJ 10 ML SYR IV ONE (07:00)
[2020-08-24 07:22] VITALS: BP 146/90
[2020-08-24 07:50] VITALS: O2SAT 96
[2020-08-24] MEDS ORDERED: ALBUTEROL 90 MCG/ACT 8GM HFA INHALER INH PRN (08:15)
[2020-08-24] MEDS ORDERED: methylPREDNISolone 125MG 2ML VIAL IV ONE (08:25)
[2020-08-24 08:30] LABS: AMPHETAMINES LEVEL URINE NEGATIVE (NEGATIVE); BARBITURATES URINE NEGATIVE (NEGATIVE); BENZODIAZEPINES URINE NEGATIVE (NEGATIVE); CANNABINOIDS URINE NEGATIVE (NEGATIVE); COCAINE METABOLITE URINE NEGATIVE (NEGATIVE); METHADONE URINE POSITIVE (NEGATIVE); OPIATES URINE NEGATIVE (NEGATIVE); PHENCYCLIDINE URINE NEGATIVE (NEGATIVE)
[2020-08-24] MEDS ORDERED: ENOXAPARIN 100MG/1ML SYRINGE (J1650 PER 10MG) SC SCH (08:30)
[2020-08-24] MEDS ORDERED: SERO150T2 PO (08:56)
[2020-08-24] MEDS ORDERED: GABA800T4 PO (08:56)
[2020-08-24] MEDS ORDERED: LEXA1TAB PO (08:56)
[2020-08-24] MEDS ORDERED: BUPR150T12 PO (08:56)
[2020-08-24] MEDS ORDERED: QUET150T2 PO (08:56)
[2020-08-24] MEDS ORDERED: WELLTAB40 PO (08:56)
[2020-08-24] MEDS ORDERED: TRAZ-257 PO (08:56)
[2020-08-24] MEDS ORDERED: LEXA1TAB2 PO (08:56)
[2020-08-24] MEDS ORDERED: SERO1TAB3 PO (08:56)
[2020-08-24 09:32] LABS: VENOUS HCO3 26.6 MEQ/L (23.0-27.0); VENOUS O2 SATURATION 96.8 % (60.0-80.0); VENOUS PARTIAL PRESSURE CO2 37.2 mmHg (38.0-50.0); VENOUS PH 7.472 UNITS (7.330-7.430); VENOUS STANDARD HCO3 27.1 MEQ/L; VENOUS TOTAL CO2 27.7 MEQ/L (24.0-28.0)
[2020-08-24 09:41] LABS: HEMATOCRIT 32.9 % (36.0-47.0); HEMOGLOBIN 10.5 g/dl (12.0-15.5); MEAN CORPUSCULAR HEMOGLOBIN 28.5 pg (27.0-33.0); MEAN CORPUSCULAR HGB CONC 31.9 g/dl (32.0-36.5); MEAN CORPUSCULAR VOLUME 89.2 fl (80.0-96.0); PLATELET COUNT, AUTOMATED 160 10^3/uL (150-450); RED BLOOD COUNT 3.69 10^6/uL (4.00-5.40); WHITE BLOOD COUNT 5.1 10^3/uL (4.0-10.0)
[2020-08-24] MEDS ORDERED: MAALOX 30 ML SUSP *UDC PO PRN (09:55)
[2020-08-24 10:03] LABS: LYMPHOCYTES 8 % (16-44); METAMYELOCYTES 1 % (0-0); NEUTROPHILS 91 % (28-66)
[2020-08-24 10:04] LABS: PLATELET ESTIMATE NORMAL (NORMAL)
[2020-08-24 10:09] LABS: BLOOD UREA NITROGEN 11 MG/DL (7-18); CALCIUM LEVEL 8.4 MG/DL (8.5-10.1); CARBON DIOXIDE LEVEL 25 MEQ/L (21-32); CHLORIDE LEVEL 104 MEQ/L (98-107); CREATININE FOR GFR 0.96 MG/DL (0.55-1.30); GLOMERULAR FILTRATION RATE > 60.0 (>60); GLUCOSE, FASTING 124 MG/DL (70-100); POTASSIUM SERUM 3.1 MEQ/L (3.5-5.1); SODIUM LEVEL 137 MEQ/L (136-145)
[2020-08-24 10:36] LABS: VITAMIN B12 LEVEL 451 PG/ML (247-911)
[2020-08-24 10:37] LABS: FOLATE 9.5 NG/ML (>5.4)
[2020-08-24] MEDS: POTASSIUM CHLORIDE 10 MEQ SR TABLET PO ONE ×2 (10:53→10:57)
[2020-08-24] MEDS ORDERED: OLANZapine INTRAMUSCULAR 10MG VIAL IM ONE ×2 (11:50→14:55)
[2020-08-24 12:00] VITALS: O2SAT 97
[2020-08-24] MEDS ORDERED: POTASSIUM CHLORIDE 10% LIQ 20 MEQ/15 ML UDC PO ONE (12:00)
[2020-08-24 14:07] VITALS: BP 123/81
--- NOTE | 2020-08-24 15:39 | IPNPDOC ---
Date Seen The patient was seen on 08/24/20. Progress Note SUBJECTIVE: Patient was seen and examined this morning. Patient herself is intermittently confused. She is anxious and agitated appearing. Nursing staff has reported that the patient continuously is stating that she feels anxious and at times becomes hostile with staff. Patient herself denies feeling short of breath. OBJECTIVE PHYSICAL EXAMINATION: VITAL SIGNS: Please see below. GENERAL: Awake and alert. She is oriented to person and place. She is not oriented to time. She is in no acute distress. She is anxious appearing HEENT: Atraumatic, normocephalic. Eyes are nonicteric. Trachea is midline. Mucous membranes are pink and moist. CARDIOVASCULAR: Normal S1, S2. Regular rate and rhythm. No clicks rubs or murmurs RESPIRATORY: Clear breath sounds bilaterally. No wheezes, rhonchi or rales ABDOMINAL: Obese. Soft, nondistended. Nontender. Normoactive bowel sounds EXTREMITIES: No edema. Full and equal pulses in bilateral upper and lower extremities NEUROLOGICAL: No focal neurological deficits PSYCHOLOGICAL: Patient is anxious and agitated. She is only responding "yes" to all questions asked. There are moments during the exam where she will answer questions appropriately however she then becomes anxious and will try and walk away. She does make good eye contact. LABORATORY DATA, IMAGING STUDIES, MICROBIOLOGY: Please see below. DVT prophylaxis ordered?: Lovenox ASSESSMENT AND PLAN: Patient is a 40 year old female with a past medical history significant for polysubstance abuse on methadone, borderline personality disorder, schizoaffective disorder, previous SI, and obesity who presented to the [facility] ER with complaint of feeling "anxious" and "stressed out". In the ED the patient received a COVID-19 test which was positive. She then became agitated which resulted in numerous doses of ativan and haldol. The patient subsequently fell asleep and was noted to have desaturations. She was admitted for possible COVID-19 with hypoxia PROBLEMS: 1. COVID-19 -Patient was admitted as she was positive for COVID-19 and had an episode of hypoxia. -Her hypoxia was likely secondary to her receiving multiple sedating medications. -She has since been on room air. At this point the patient is medically stable. -She would benefit from monoclonal antibody infusion however this can only be done outpatient. -Patient is currently on room air. She has not had any desaturations. She is walking in her room and is frequently agitated without any desaturation. -At this point in time she is MEDICALLY STABLE 2. Anxiety/Agitation -Patient is expressing that she is "anxious" and "stressed out". She is not answering questions appropriately. She is getting increasingly aggressive with staff. -Have contacted Psychiatry with case discussed. Patient will be evaluated with recommendations. At this point she is medically stable and if she warrants an admission to [facility] then she would be able to be discharged as soon as an [facility] bed is available -Patient has a bedside sitter present -Psychiatry consult placed. Assistance appreciated 3. Obesity -Complicates care. 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 She will likely have desaturations at night 2/2 TAVO. 4. Polysubstance Abuse -Patient is on Methadone. She is currently on 155mg Po methadone roughly 1860 MME/day -Will continue methadone 5. DVT prophylaxis -Lovenox. Patient is refusing DVT prophylaxis; however remains very ambulatory DISPOSITION: Likely discharge to [facility] VS, I&O, 24H, Manda Vital Signs/I&O Vital Signs Date Time Temp Pulse Resp B/P (MAP) Pulse Ox O2 Delivery O2 Flow Rate FiO2 08/24/20 14:07 96.1 66 18 123/81 (95) 98 Room Air 08/24/20 07:26 4.0 Laboratory Data 24H LABS Laboratory Tests 2 08/23/20 22:12: Estimated Mean Plasma Glucose 108, Hemoglobin A1c 5.4 08/23/20 22:13: Nucleated Red Blood Cells % (auto) 0.0, Prothrombin Time 12.4, Prothromb Time International Ratio 0.91, Activated Partial Thromboplast Time 35.9, D-Dimer, Quantitative 3289.32H, Anion Gap 8, Glomerular Filtration Rate > 60.0, Calcium Level 8.6, Iron Level 70, Total Iron Binding Capacity 325, Transferrin % Saturation 21.5, Ferritin 271H, Total Bilirubin 0.8, Direct Bilirubin 0.3H, Aspartate Amino Transf (AST/SGOT) 31, Alanine Aminotransferase (ALT/SGPT) 19, A lkaline Phosphatase 125H, Total Creatine Kinase 102, Creatine Kinase MB 1.6, Creatine Kinase MB Relative Index 1.57, Troponin I < 0.02, QU-Aku-A-Type Natriuretic Peptide 516H, Total Protein 7.1, Albumin 3.4, Albumin/Globulin Ratio 0.9L, Vitamin B12 Level 451, Folate 9.5, Thyroid Stimulating Hormone (TSH) 46.900H, Free Thyroxine 0.28L, Human Chorionic Gonadotropin, Qual NEGATIVE, Salicylates Level 2.7L, Urine Opiates Screen NEGATIVE, Urine Methadone Screen POSITIVEH, Acetaminophen Level < 2.0L, Urine Barbiturates Screen NEGATIVE, Urine Phencyclidine Screen NEGATIVE, Urine Amphetamines Screen NEGATIVE, Urine Benzodiazepines Screen NEGATIVE, Urine Cocaine Metabolite Screen NEGATIVE, Urine Cannabinoids Screen NEGATIVE, Ethyl Alcohol Level < 0.003 08/23/20 23:00: Blood Gas Bicarbonate Standard 26.9H, Arterial Blood pH 7.549H, Arterial Blood Partial Pressure CO2 28.9L, Arterial Blood Partial Pressure O2 100.4H, Arterial Blood Total CO2 25.5, Arterial Blood HCO3 24.7, Arterial Blood Base Excess 2.7H, Arterial Blood Oxygen Saturation 97.9 08/24/20 08:27: Nucleated Red Blood Cells % (auto) 0.4H, Anion Gap 8, Glomerular Filtration Rate > 60.0, Calcium Level 8.4L, Immature Granulocyte % (Auto) , Neutrophils (%) (Auto) , Neutrophils 91H, Lymphocytes (Manual) 8L, Metamyelocytes 1H, Red Blood Cell Morphology NORMAL, Platelet Estimate NORMAL 08/24/20 08:34: Blood Gas Bicarbonate Standard 27.1, Venous Blood pH 7.472H, Venous Blood Partial Pressure CO2 37.2L, Venous Blood Partial Pressure O2 90.0H, Venous Blood Total Carbon Dioxide 27.7, Venous Blood HCO3 26.6, Venous Blood Oxygen Saturation 96.8H, Venous Blood Base Excess 3.0H CBC/BMP Laboratory Tests 08/23/20 22:13 08/24/20 08:27 Microbiology Microbiology 08/23/20 Respiratory Virus Panel (PCR) ([facility]) - Final, Complete SARS-CoV-2 (COVID 19) GME ATTESTATION GME ATTESTATION My faculty preceptor for this patient encounter was physically present during the encounter and was fully available. All aspects of the patient interview, examination, medical decision making process, and medical care plan development were reviewed and approved by the faculty preceptor. The faculty preceptor is aware and concurs with the plan as stated in the body of this note and will attest to such by his/her cosignature. ATTENDING NOTE I, Joya Cedeno, have independently examined this patient and performed my own physical exam, as well as reviewed the documentation and edited where necessary. I have discussed in detail with the resident / student the findings and plan of treatment as documented by the resident / student and edited their note. I agree with their findings and treatment plan and have edited their documentation. I will continue to follow the patient during this hospital stay. BONILLA RAMOS DO August 24, 2020 15:39 JOYA CEDENO MD August 24, 2020 15:47
[2020-08-24] MEDS ORDERED: LEVO125T4 PO (17:11)
[2020-08-24] MEDS ORDERED: ENOXAPARIN 60MG/0.6ML SYRINGE (J1650 PER 10MG) SC ONE (18:00)
--- NOTE | 2020-08-24 18:54 | DS.PDOC ---
Discharge Summary General Date of Admission August 24, 2020 at 03:44 Date of Discharge 08/24/20 Attending Physician: JOYA REHMAN MD Specialist/Consultants Involve: Yeimy Thorpe Discharge Summary PROCEDURES PERFORMED DURING STAY: [None]. ADMITTING DIAGNOSES: 1. COVID-19 2. Encephalopathy 2/2 sedating medications 3. Hypothyroidism 4. Hypokalemia 5. Anemia 6. Intellectual Disability, Schizoaffective disorder, anxiety, borderline personality disorder DISCHARGE DIAGNOSES: 1. COVID-19 2. Encephalopathy 2/2 sedating medications 3. Hypothyroidism 4. Hypokalemia 5. Anemia 6. Intellectual Disability, Schizoaffective disorder, anxiety, borderline personality disorder COMPLICATIONS/CHIEF COMPLAINT: Covid +. HISTORY OF PRESENT ILLNESS: Patient is a 40 year old female with a past medical history of medical non-compliance, polysubstance abuse, anxiety, schizoaffective disorder, morbid obesity, and borderline personality disorder who presented to the [facility] ER with a complaint of feeling anxious and stressed out. Patient was noted to be agitated in the ER and was not able to provide much of a history. She was tested for COVID-19 which resulted positive. At the time of presentation patient otherwise had no COVID-19 symptoms. The patient was noted to become increasingly more agitated and subsequently received ativan and haldol which resulted in her becoming sleepy. The patient was then noted to be hypoxic and was admitted to [facility] COURSE: Patient was vitally stable. On evaluation in the AM the patient was awake and agitated. She was not requiring any supplemental oxygen. It was felt that the patients hypoxia was not from COVID-19 but rather from her receiving multiple sedating medications in addition to her obesity and likely obesity hypoventilation and TAVO. During her hospitalization the patient was noted to become increasingly more agitated requiring multiple doses of IM Zyprexa. Psychiatry was consulted for potential admission to [facility]. After review of the patient she was admitted to [facility] Medical Conditions Addressed 1. COVID-19 -Patient was admitted as she was positive for COVID-19 and had an episode of hypoxia. -Her hypoxia was likely secondary to her receiving multiple sedating medications. -She has since been on room air. At this point the patient is medically stable. -She would benefit from monoclonal antibody infusion however this can only be done outpatient. -Patient is currently on room air. She has not had any desaturations. She is walking in her room and is frequently agitated without any desaturation. -At this point in time she is MEDICALLY STABLE 2. Anxiety/Agitation -Patient is expressing that she is "anxious" and "stressed out". She is not answering questions appropriately. She is getting increasingly aggressive with staff. -Have contacted Psychiatry with case discussed. Patient will be evaluated with recommendations. At this point she is medically stable and if she warrants an admission to [facility] then she would be able to be discharged as soon as an [facility] bed is available -Patient has a bedside sitter present -Psychiatry consult placed. Assistance appreciated 3. Obesity -Complicates care. 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 She will likely have desaturations at night 2/2 TAVO. 4. Polysubstance Abuse -Patient is on Methadone. She is currently on 155mg Po methadone roughly 1860 MME/day -Will continue methadone DISCHARGE MEDICATIONS: Please see below. ALLERGIES: Please see below. PHYSICAL EXAMINATION ON DISCHARGE: VITAL SIGNS: Please see below. GENERAL: Awake and alert. She is oriented to person and place. She is not oriented to time. She is in no acute distress. She is anxious appearing HEENT: Atraumatic, normocephalic. Eyes are nonicteric. Trachea is midline. Mucous membranes are pink and moist. CARDIOVASCULAR: Normal S1, S2. Regular rate and rhythm. No clicks rubs or murmurs RESPIRATORY: Clear breath sounds bilaterally. No wheezes, rhonchi or rales ABDOMINAL: Obese. Soft, nondistended. Nontender. Normoactive bowel sounds EXTREMITIES: No edema. Full and equal pulses in bilateral upper and lower extremities NEUROLOGICAL: No focal neurological deficits PSYCHOLOGICAL: Patient is anxious and agitated. She is only responding "yes" to all questions asked. There are moments during the exam where she will answer questions appropriately however she then becomes anxious and will try and walk away. She does make good eye contact. LABORATORY DATA: Please see below. IMAGING: PROCEDURE INFORMATION: Exam: XR Chest Exam date and time: 08/23/2020 11:44 PM Age: 40 years old Clinical indication: Other: Weakness TECHNIQUE: Imaging protocol: XR of the chest. Views: 1 view. COMPARISON: CR PORTABLE CHEST X-RAY 02/28/2020 8:46 PM FINDINGS: Lungs: Exam is limited by low lung volumes. Mild hypoventilatory changes. No infiltrates or masses. Pleural spaces: Unremarkable. No pleural effusion. No pneumothorax. Heart/Mediastinum: Unremarkable. No cardiomegaly. Bones/joints: Unremarkable. IMPRESSION: No acute findings. Electronically signed by: Mike Bullard On 08/24/2020 00:54:56 AM PROGNOSIS: Fair ACTIVITY: [As tolerated]. DIET: As tolerated DISCHARGE PLAN: Discharge to [facility]. Follow COVID-19 quarantine precautions. Follow-up with PCP after hospitalization DISCHARGE CONDITION: [Stable]. TIME SPENT ON DISCHARGE: Greater than 40 minutes. Vital Signs/I&Os Vital Signs Date Time Temp Pulse Resp B/P (MAP) Pulse Ox O2 Delivery O2 Flow Rate FiO2 08/24/20 14:07 96.1 66 18 123/81 (95) 98 Room Air 08/24/20 07:26 4.0 Laboratory Data Labs 24H Laboratory Tests 2 08/23/20 22:12: Estimated Mean Plasma Glucose 108, Hemoglobin A1c 5.4 08/23/20 22:13: Nucleated Red Blood Cells % (auto) 0.0, Prothrombin Time 12.4, Prothromb Time International Ratio 0.91, Activated Partial Thromboplast Time 35.9, D-Dimer, Quantitative 3289.32H, Anion Gap 8, Glomerular Filtration Rate > 60.0, Calcium Level 8.6, Iron Level 70, Total Iron Binding Capacity 325, Transferrin % Satura tion 21.5, Ferritin 271H, Total Bilirubin 0.8, Direct Bilirubin 0.3H, Aspartate Amino Transf (AST/SGOT) 31, Alanine Aminotransferase (ALT/SGPT) 19, Alkaline Phosphatase 125H, Total Creatine Kinase 102, Creatine Kinase MB 1.6, Creatine Kinase MB Relative Index 1.57, Troponin I < 0.02, KO-Jxl-S-Type Natriuretic Peptide 516H, Total Protein 7.1, Albumin 3.4, Albumin/Globulin Ratio 0.9L, Vitamin B12 Level 451, Folate 9.5, Thyroid Stimulating Hormone (TSH) 46.900H, Free Thyroxine 0.28L, Human Chorionic Gonadotropin, Qual NEGATIVE, Salicylates Level 2.7L, Urine Opiates Screen NEGATIVE, Urine Methadone Screen POSITIVEH, Acetaminophen Level < 2.0L, Urine Barbiturates Screen NEGATIVE, Urine Phencyclid ine Screen NEGATIVE, Urine Amphetamines Screen NEGATIVE, Urine Benzodiazepines Screen NEGATIVE, Urine Cocaine Metabolite Screen NEGATIVE, Urine Cannabinoids Screen NEGATIVE, Ethyl Alcohol Level < 0.003 08/23/20 23:00: Blood Gas Bicarbonate Standard 26.9H, Arterial Blood pH 7.549H, Arterial Blood Partial Pressure CO2 28.9L, Arterial Blood Partial Pressure O2 100.4H, Arterial Blood Total CO2 25.5, Arterial Blood HCO3 24.7, Arterial Blood Base Excess 2.7H, Arterial Blood Oxygen Saturation 97.9 08/24/20 08:27: Nucleated Red Blood Cells % (auto) 0.4H, Anion Gap 8, Glomerular Filtration Rate > 60.0, Calcium Level 8.4L, Immature Granulocyte % (Auto) , Neutrophils (%) (Auto) , Neutrophils 91H, Lymphocytes (Manual) 8L, Metamyelocytes 1H, Red Blood Cell Morphology NORMAL, Platelet Estimate NORMAL 08/24/20 08:34: Blood Gas Bicarbonate Standard 27.1, Venous Blood pH 7.472H, Venous Blood Partial Pressure CO2 37.2L, Venous Blood Partial Pressure O2 90.0H, Venous Blood Total Carbon Dioxide 27.7, Venous Blood HCO3 26.6, Venous Blood Oxygen Saturation 96.8H, Venous Blood Base Excess 3.0H CBC/BMP Laboratory Tests 08/23/20 22:13 08/24/20 08:27 Microbiology Microbiology 08/23/20 Respiratory Virus Panel (PCR) ([facility]) - Final, Complete SARS-CoV-2 (COVID 19) Discharge Medications Scheduled Bupropion HCl (Wellbutrin Xl) 300 Mg Tab.er.24h, 300 MG PO DAILY, (Reported) Escitalopram Oxalate (Lexapro) 10 Mg Tablet, 10 MG PO DAILY, (Reported) 30MG TOTAL DAILY Escitalopram Oxalate (Lexapro) 20 Mg Tablet, 20 MG PO DAILY, (Reported) 30MG TOTAL DAILY Gabapentin (Gabapentin) 800 Mg Tablet, 800 MG PO TID, (Reported) Levothyroxine Sodium (Levothyroxine Sodium) 125 Mcg Tablet, 1 TAB PO DAILY Methadone HCl (Methadone HCl) 10 Mg/1 Ml Oral.conc, 155 MG PO DAILY, (Reported) VERIFIED WITH [facility] Quetiapine Fumarate (Quetiapine Fumarate ER) 150 Mg Tab.er.24h, 150 MG PO QHS, (Reported) Quetiapine Fumarate (Seroquel) 25 Mg Tablet, 12.5 MG PO BID, (Reported) TAKE AT 0900 & 1600 Quetiapine Fumarate (Seroquel Xr) 150 Mg Tab.er.24h, 150 MG PO QHS, (Reported) Trazodone HCl (Trazodone HCl) 100 Mg Tablet, 100 MG PO QHS, (Reported) Allergies Coded Allergies: No Known Allergies (Verified , 10/22/18) GME ATTESTATION GME ATTESTATION My faculty preceptor for this patient encounter was physically present during the encounter and was fully available. All aspects of the patient interview, examination, medical decision making process, and medical care plan development were reviewed and approved by the faculty preceptor. The faculty preceptor is aware and concurs with the plan as stated in the body of this note and will attest to such by his/her cosignature. ATTENDING NOTE I, Joya Rehman, have independently examined this patient and performed my own physical exam, as well as reviewed the documentation and edited where necessary. I have discussed in detail with the resident / student the findings and plan of treatment as documented by the resident / student and edited their note. I agree with their findings and treatment plan and have edited their documentation. I will continue to follow the patient during this hospital stay. Time spent on discharge 35 minutes BONILLA RAMOS DO August 24, 2020 17:26 JOYA REHMAN MD August 25, 2020 15:11
--- NOTE | 2020-08-24 20:28 | ECGEPIP ---
[facility] - ED Test Date: 2020-08-23 Pat Name: EDWIN LARKIN Department: Room: [facility] Gender: Female Collection Manager: MAYO : 1980 Requested By: BONILLA Echols Order Number: [id number] Reading MD: Rosy Cary Measurements Intervals [place] Rate: 62 P: 0 NE: 136 QRS: 23 QRSD: 96 T: -19 QT: 416 QTc: 422 Interpretive Statements Normal sinus rhythm Nonspecific T wave abnormality similar 06/24/20 Electronically Signed on 08-24-2020 20:28:15 EDT by Rosy Cary
[2020-08-25] MEDS ORDERED: REMDESIVIR 100 MG in NS 250 ML IV SCH (06:00)
[2020-08-25] MEDS ORDERED: SODIUM CHLORIDE 0.9% INJ 10 ML SYR IV SCH (07:00)
[2020-08-25] MEDS ORDERED: METHADONE 10 MG TAB (S0109) PO SCH (09:00)
[2020-08-25] MEDS ORDERED: ENOXAPARIN 60MG/0.6ML SYRINGE (J1650 PER 10MG) SC SCH (09:00)
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
--- NOTE | 2020-08-27 12:17 | MHIPN ---
[facility] PROGR[facility] NOTE DATE: 08/25/2020 The patient today tells me that she is "better," but then I asked her if she was having any suicidal or homicidal thoughts, and she said "I don't know." Then subsequent to that I really could not get her to answer any other questions, except that she did say at one point "I feel sick." The patient does have COVID, and so that certainly could be causing her lot of physical distress, and she seems unable to engage in any further evaluation. MENTAL STATUS EXAMINATION: The patient maintained fair eye contact. Psychomotor activity was decreased. She responded twice, once to say "I don't know," and "I feel sick," and to say she was "better." Other than that I cannot further assess the patient, and I cannot complete the mental status exam. DIAGNOSES: 1. Schizoaffective disorder. 2. Posttraumatic stress disorder by history. 3. Other specified anxiety disorder by history. 4. History of opioid use disorder. 5. History of alcohol use disorder. 6. Borderline personality disorder. 7. History of intellectual disability. TREATMENT PLAN: At this point, we will continue to monitor her for her bizarre behavior, possible psychotic symptoms and/or possible and/or homicidal thoughts. (ended)./verified/ml MTDD
== END 2020-08-24 18:44 | DRG 144 ==
LOC: M ED 19:46 → M ED INP 08-24 03:44 → ENRESERV 08-24 06:46 → M 4MAIN 08-24 07:30
PROVIDERS: ADMIT Internal Medicine; ATTEND Internal Medicine
DX: R09.02 Hypoxemia (principal); U07.1 COVID-19; G92 Toxic encephalopathy; E66.2 Morbid (severe) obesity with alveolar hypoventilation; Z68.41 Body mass index [BMI] 40.0-44.9, adult; F25.9 Schizoaffective disorder, unspecified; F79 Unspecified intellectual disabilities; F41.9 Anxiety disorder, unspecified; F60.3 Borderline personality disorder; F43.10 Post-traumatic stress disorder, unspecified; E87.6 Hypokalemia; F19.10 Other psychoactive substance abuse, uncomplicated; T42.4X5A Adverse effect of benzodiazepines, initial encounter; E03.9 Hypothyroidism, unspecified; D64.9 Anemia, unspecified; Z79.899 Other long term (current) drug therapy; Z62.810 Personal history of physical and sexual abuse in childhood

== ENCOUNTER 2020-08-24 17:33 | Inpatient (IN) | payer OTHER ==
[~2020-08-24] VITALS: Ht 160 cm; Wt 105.1 kg
[~2020-08-24 17:33] MED LIST changes: +LEVO125T4 PO; +QUET150T2 PO
[2020-08-24] MEDS ORDERED: OLANZapine 5 MG TAB PO PRN (18:00)
[2020-08-24] MEDS ORDERED: MAALOX 30 ML SUSP *UDC PO PRN (18:00)
[2020-08-24] MEDS ORDERED: MOM 30ML SUSPENSION UDC PO PRN (18:00)
[2020-08-24] MEDS ORDERED: ACETAMINOPHEN TAB 650MG DOSE (2X325MG) PO PRN (18:00)
[2020-08-24] MEDS: GABAPENTIN 400MG CAP PO SCH ×2 (19:56→21:00)
[2020-08-24] MEDS: traZODone 100 MG TAB PO SCH (19:56)
[2020-08-24] MEDS: QUEtiapine FUMERATE XR 50 MG TABER PO SCH (19:56)
[2020-08-24 20:00] VITALS: BP 118/80; O2SAT 95
[2020-08-24] MEDS ORDERED: HALOPERIDOL 5MG/ML VIAL (J1630 PER 1) IM ONE (20:10)
[2020-08-24] MEDS: ONDANSETRON 4 MG ORAL DISINTEGRATING TAB PO ONE ×2 (20:28→20:37)
[2020-08-25] VITALS: O2SAT 95
[2020-08-25 00:11] VITALS: BP 104/69
[2020-08-25 03:58] VITALS: O2SAT 94
[2020-08-25] MEDS: LEVOTHYROXINE 125MCG TABLET (0.125MG) PO SCH ×2 (05:47→07:03)
[2020-08-25 09:00] VITALS: BP 106/69
[2020-08-25] MEDS: BENZONATATE 100 MG CAP PO SCH ×3 (09:00→21:00)
[2020-08-25] MEDS ORDERED: ESCITALOPRAM OXALATE 10 MG TAB (LEXAPRO) PO SCH (09:00)
[2020-08-25] MEDS: ESCITALOPRAM OXALATE 10 MG TAB (LEXAPRO) PO SCH (09:27)
[2020-08-25] MEDS: buPROPion **XL** TABLET 150MG (WELLBUTRIN XL) PO SCH (09:27)
[2020-08-25] MEDS: QUEtiapine FUMARATE 12.5 MG HALF-TAB PO SCH ×2 (09:27→15:03)
[2020-08-25] MEDS: GABAPENTIN 400MG CAP PO SCH ×3 (09:27→21:00)
[2020-08-25] MEDS ORDERED: guaiFENesin 200 MG TAB PO PRN (09:40)
[2020-08-25 09:51] LABS: HEMATOCRIT 32.4 % (36.0-47.0); HEMOGLOBIN 10.7 g/dl (12.0-15.5); MEAN CORPUSCULAR HEMOGLOBIN 29.5 pg (27.0-33.0); MEAN CORPUSCULAR VOLUME 89.3 fl (80.0-96.0); PLATELET COUNT, AUTOMATED 168 10^3/uL (150-450); RED BLOOD COUNT 3.63 10^6/uL (4.00-5.40); WHITE BLOOD COUNT 3.6 10^3/uL (4.0-10.0)
[2020-08-25 10:12] LABS: BLOOD UREA NITROGEN 11 MG/DL (7-18); CALCIUM LEVEL 8.4 MG/DL (8.5-10.1); CARBON DIOXIDE LEVEL 25 MEQ/L (21-32); CHLORIDE LEVEL 108 MEQ/L (98-107); CREATININE FOR GFR 1.08 MG/DL (0.55-1.30); GLOMERULAR FILTRATION RATE > 60.0 (>60); GLUCOSE, FASTING 93 MG/DL (70-100); MAGNESIUM LEVEL 2.2 MG/DL (1.8-2.4); POTASSIUM SERUM 2.8 MEQ/L (3.5-5.1); SODIUM LEVEL 140 MEQ/L (136-145)
[2020-08-25 10:23] LABS: ATYPICAL LYMPH 4 % (0-5); LYMPHOCYTES 12 % (16-44); METAMYELOCYTES 2 % (0-0); MONOCYTES 4 % (0-5); MYELOCYTES 2 % (0-0); NEUTROPHILS 63 % (28-66); PLATELET ESTIMATE NORMAL (NORMAL)
[2020-08-25 10:24] LABS: ANISOCYTOSIS 2+; TEAR DROP CELLS 1+
[2020-08-25] MEDS ORDERED: POTASSIUM CHLORIDE 10% LIQ 20 MEQ/15 ML UDC PO SCH (10:30)
--- NOTE | 2020-08-25 13:22 | HPEPDOC ---
[facility] Medical History & Physical Date of Admission August 24, 2020 Date of Service: August 25, 2020 Attending Physician: JOYA CEDENO MD History and Physical CHIEF COMPLAINT: Cough HISTORY OF PRESENT ILLNESS: Patient is a 40 year old female with a past medical history of medical non-compliance, polysubstance abuse, anxiety, schizoaffective disorder, morbid obesity, and borderline personality disorder who presented to the [facility] ER with a complaint of feeling anxious and stressed out. Patient was noted to be agitated in the ER and was not able to provide much of a history. She was tested for COVID-19 which resulted positive. At the time of presentation patient otherwise had no COVID-19 symptoms. The patient was noted to become increasingly more agitated and subsequently received ativan and haldol which resulted in her becoming sleepy. The patient was then noted to be hypoxic and was admitted to hospitalist service Patient was vitally stable. On evaluation in the AM the patient was awake and ag itated. She was not requiring any supplemental oxygen. It was felt that the patients hypoxia was not from COVID-19 but rather from her receiving multiple sedating medications in addition to her obesity and likely obesity hypoventilation and TAVO. During her hospitalization the patient was noted to be come increasingly more agitated requiring multiple doses of IM Zyprexa. Psychiatry was consulted for potential [facility]. After review of the patient she was admitted [facility] On admission [facility] the patient was managed by Psychiatry for her psychiatric conditions. Since admission [facility] she has had a continued cough consistent with COVID-19. The patient herself is fairly non-compliant on exam and does not provide much input on her symptoms if any. PAST MEDICAL HISTORY: 1. Schizoaffective Disorder 2. Polysubstance Abuse 3. Borderline personality disorder 4. Morbid obesity 5. TAVO 6. Sarcoidosis 7. Medullary Nephrocalcinosis 8. Intellectual Disability 9. Recent COVID-19 diagnosis PAST SURGICAL HISTORY: 1. SOCIAL HISTORY: Patient is a former smoker. She is currently on methadone for history of polysubstance abuse FAMILY HISTORY: Family history of diabetes mellitus type 2, heart disease, and hyperlipidemia ALLERGIES: Please see below. REVIEW OF SYSTEMS: Unable to obtain full review of systems as patient is not cooperative for the majority of the exam. She does voice that she does not have any shortness of breath. HOME MEDICATIONS: Please see below. PHYSICAL EXAMINATION: VITAL SIGNS: Temperature 96.1, pulse 66, respiratory rate 18, blood pressure 12 3/81, pulse oximetry 98% on room air. GENERAL APPEARANCE: Awake and alert. Appears in no acute distress. Lying in bed. fairly noncooperative with examination HEENT: Atraumatic, normocephalic. Eyes are nonicteric. Trachea is midline. Mucous membranes are pink and moist. Neck is ascencio CARDIOVASCULAR: Normal S1. S2. Regular rate and rhythm. No clicks, rubs, or murmurs LUNGS: Clear breath sounds throughout. No wheezes, rhonchi or rales. Symmetric chest expansion. No accessory muscle use ABDOMEN: Morbidly obese. Soft, nondistended. Nontender. Normoactive bowel sounds throughout EXTREMITIES: No edema. Full and equal pulses in bilateral upper and lower extremities NEUROLOGICAL: No focal neurological deficits. Full neurological examination could not be performed as patient was noncooperative LABORATORY DATA: See below. MICROBIOLOGY: Please see below. ASSESSMENT: Patient is a 40 year old female with a past medical history of multiple psychiatric conditions and multiple psychiatric hospitalizations who presented to the [facility] ER with complaint of feeling anxious and stressed out. She was diagnosed with COVID-19. She was given multiple sedating medications which resulted in respiratory depression and patient was initially admitted to hospitalist service for COVID-19 with hypoxia. Her hypoxia resolved as her sedating medications wore off. The patient was found to be medically stable and was [facility] for further psychiatric care. PLAN: 1. COVID-19 -Patient has tested positive for COVID-19. Currently she is not hypoxic and management is conservative. She is on room air. -Mucinex and benzonatate -She will likely have desaturations when she is sleeping as she likely has obstructive sleep apnea. Regardless treatment remains conservativee 2. Hypokalemia -Replace PRN. Likely secondary to decreased oral intake from COVID-19 -Monitor and replete as needed 3. Obesity -Complicates care. Likely has TAVO which will likely cause nocturnal hypoxia. 4. History of Polysubstance Abuse -Patient is on Methadone. She is currently taking 155mg PO. Roughly 1860 M ME/day 5. Psychiatric history -Management as per psychiatry in the [facility] DISPOSITION: Patient is currently medically stable. She does have COVID-19. Will continue to follow while patient is admitted [facility] Vital Signs Vital Signs Date Time Temp Pulse Resp B/P (MAP) Pulse Ox O2 Delivery O2 Flow Rate FiO2 08/25/20 09:00 Room Air 08/25/20 09:00 98.6 84 18 106/69 (81) 95 Laboratory Data Labs 24H Laboratory Tests 2 08/25/20 09:35: Immature Granulocyte % (Auto) , Neutrophils (%) (Auto) , Nucleated Red Blood Cells % (auto) 0.6H, Neutrophils 63, Band Neutrophils 13H, Lymphocytes (Manual) 12L, Monocytes (Manual) 4, Metamyelocytes 2H, Myelocytes 2H, Atypical Lymphocytes 4, Anisocytosis 2+, Tear Drop Cells 1+, Platelet Estimate NORMAL, Anion Gap 7L, Glomerular Filtration Rate > 60.0, Calcium Level 8.4L, Magnesium Level 2.2 CBC/BMP Laboratory Tests 08/25/20 09:35 Home Medications Scheduled Bupropion HCl (Wellbutrin Xl) 300 Mg Tab.er.24h, 300 MG PO DAILY Escitalopram Oxalate (Lexapro) 10 Mg Tablet, 10 MG PO DAILY 30MG TOTAL DAILY Escitalopram Oxalate (Lexapro) 20 Mg Tablet, 20 MG PO DAILY 30MG TOTAL DAILY Gabapentin (Gabapentin) 800 Mg Tablet, 800 MG PO TID Levothyroxine Sodium (Levothyroxine Sodium) 125 Mcg Tablet, 1 TAB PO DAILY Methadone HCl (Methadone HCl) 10 Mg/1 Ml Oral.conc, 155 MG PO DAILY VERIFIED WITH [facility] Quetiapine Fumarate (Quetiapine Fumarate ER) 150 Mg Tab.er.24h, 150 MG PO QHS Quetiapine Fumarate (Seroquel) 25 Mg Tablet, 12.5 MG PO BID TAKE AT 0900 & 1600 Quetiapine Fumarate (Seroquel Xr) 150 Mg Tab.er.24h, 150 MG PO QHS Trazodone HCl (Trazodone HCl) 100 Mg Tablet, 100 MG PO QHS Allergies Coded Allergies: No Known Allergies (Verified , 10/22/18) A-FIB/CHADSVASC A-FIB History Current/History of A-Fib/PAF?: No GME ATTESTATION GME ATTESTATION My faculty preceptor for this patient encounter was physically present during th e encounter and was fully available. All aspects of the patient interview, examination, medical decision making process, and medical care plan development were reviewed and approved by the faculty preceptor. The faculty preceptor is aware and concurs with the plan as stated in the body of this note and will attest to such by his/her cosignature. ATTENDING NOTE I, Joya Cedeno, have independently examined this patient and performed my own physical exam, as well as reviewed the documentation and edited where necessary. I have discussed in detail with the resident / student the findings and plan of treatment as documented by the resident / student and edited their note. I agree with their findings and treatment plan and have edited their documentation. I will continue to follow the patient during this hospital stay. BONILLA RAMOS DO August 25, 2020 13:22 JOYA CEDENO MD August 25, 2020 14:16
[2020-08-25] MEDS ORDERED: POTASSIUM CHLORIDE 10 MEQ SR TABLET PO ONE (14:00)
[2020-08-25 16:59] VITALS: BP 114/56
[2020-08-25 17:04] LABS: BLOOD UREA NITROGEN 12 MG/DL (7-18); CALCIUM LEVEL 8.2 MG/DL (8.5-10.1); CARBON DIOXIDE LEVEL 27 MEQ/L (21-32); CHLORIDE LEVEL 108 MEQ/L (98-107); CREATININE FOR GFR 0.99 MG/DL (0.55-1.30); GLOMERULAR FILTRATION RATE > 60.0 (>60); GLUCOSE, FASTING 74 MG/DL (70-100); POTASSIUM SERUM 3.9 MEQ/L (3.5-5.1); SODIUM LEVEL 140 MEQ/L (136-145)
[2020-08-25] MEDS: traZODone 100 MG TAB PO SCH (21:00)
[2020-08-25] MEDS: QUEtiapine FUMERATE XR 50 MG TABER PO SCH (21:00)
[2020-08-26] MEDS: LEVOTHYROXINE 125MCG TABLET (0.125MG) PO SCH (05:52)
[2020-08-26 07:02] VITALS: BP 108/61
[2020-08-26] MEDS: BENZONATATE 100 MG CAP PO SCH ×3 (09:30→21:36)
[2020-08-26] MEDS: ESCITALOPRAM OXALATE 10 MG TAB (LEXAPRO) PO SCH (09:30)
[2020-08-26] MEDS: buPROPion **XL** TABLET 150MG (WELLBUTRIN XL) PO SCH (09:31)
[2020-08-26] MEDS: QUEtiapine FUMARATE 12.5 MG HALF-TAB PO SCH ×2 (09:31→16:08)
[2020-08-26] MEDS: GABAPENTIN 400MG CAP PO SCH ×3 (09:31→21:36)
[2020-08-26] MEDS: METHADONE 5 MG TAB (S0109) PO SCH (11:24)
[2020-08-26] MEDS: METHADONE 10 MG TAB (S0109) PO SCH (11:25)
[2020-08-26 17:27] VITALS: BP 121/82
[2020-08-26] MEDS: traZODone 100 MG TAB PO SCH (21:35)
[2020-08-26] MEDS: QUEtiapine FUMERATE XR 50 MG TABER PO SCH (21:36)
[2020-08-27] MEDS: LEVOTHYROXINE 125MCG TABLET (0.125MG) PO SCH (05:48)
[2020-08-27 06:57] VITALS: BP 104/65
[2020-08-27] MEDS: BENZONATATE 100 MG CAP PO SCH (09:42)
[2020-08-27] MEDS: QUEtiapine FUMARATE 12.5 MG HALF-TAB PO SCH (09:42)
[2020-08-27] MEDS: ESCITALOPRAM OXALATE 10 MG TAB (LEXAPRO) PO SCH (09:43)
[2020-08-27] MEDS: GABAPENTIN 400MG CAP PO SCH (09:43)
[2020-08-27] MEDS: METHADONE 10 MG TAB (S0109) PO SCH (09:44)
[2020-08-27] MEDS: buPROPion **XL** TABLET 150MG (WELLBUTRIN XL) PO SCH (09:44)
[2020-08-27] MEDS: METHADONE 5 MG TAB (S0109) PO SCH (09:44)
[2020-08-27] MEDS ORDERED: GUAI20TA PO (10:48)
[2020-08-27] MEDS ORDERED: BENZ-18 PO (10:48)
--- NOTE | 2020-08-27 13:19 | MHDSPDOC ---
[facility] Discharge Summary Discharge Summary DATE OF ADMISSION: August 24, 2020 at 18:46 DATE OF DISCHARGE: August 27, 2020 at 1256 DISCHARGE DIAGNOSES: 1. Schizoaffective disorder. 2. Post traumatic stress disorder by history. 3. Unspecified anxiety disorder by history. 4. History of opioid use disorder. 5. History of alcohol use disorder. 6. Borderline personality disorder. 7. History of intellectual disability. REASON FOR ADMISSION: Patient is a 40 year old Single, Disabled, Domiciled, female was tested for COVID-19 which resulted positive. At the time of presentation patient otherwise had no COVID-19 symptoms. The patient was noted to become increasingly more agitated and subsequently received Ativan and Haldol which resulted in her becoming sleepy - . Her O2 sats quickly dropped to the 80's due to her hypoxic episode she was admitted to hospitalist service. She has had numerous psychiatric admission and has a history of medical non- compliance, polysubstance abuse, anxiety, schizoaffective disorder, morbid obesity, and borderline personality disorder who presented to the [facility] ER with a complaint of feeling anxious and stressed out. She was consulted by Dr. Calderón who stated that the patient was behaving in a bizarre fashion. When the patient had been asked any questions, she just kept on saying "yes" to every single question. When asked if she was having suicidal or homicidal thoughts and initially stated "no" but then when asked her if she wanted to go home and she said "no", and after that she was unable to answer any of the questions. She attempted to leave the room against advice of staff because of the fact that she has COVID, and so she needs to stay in her room and she was getting increasingly agitated requiring multiple doses of IM Zyprexa. VITAL SIGNS: See below. CONSULTANTS INVOLVED: See Medical H + P by Hospitalist TREATMENT AND PROGRESS ON THE UNIT: Patient was admitted to the [facility] on a legal status he was afforded the following treatment modalities: 1) Individual Therapy 2) Group Therapy 3) Medication Management 4) Milieu Therapy 5) Safe Environment HOSPITAL COURSE: Patient was admitted to psychiatry on a and admitted due to bizarre and agitated behavior while she was on a medical floor. Patient initially stated that she had depression and anxiety when she first came to the unit but reported that this was at the same level at home. She did not want to be admitted to psychiatry but understood the rationale for it. In today's inte rview Pt. denies Suicidal Ideations, denies Homicidal Ideatopms, and contracts for safety. Pt. denies any issues with anxiety or depression. Pt. states that she is feeling better and that she would like to be discharged today. Pt. stated that she would be more comfortable at home does not feel that being in isolation on this unit is good for her mood. Patient was compliant with tr eatment and is not observed with any agitation, irritability or any negative moods that would be disruptive in the community. Patient is alert and oriented to person, place, time and situation and meets criteria for discharge today. She had reported a complaint to quality management prior to her discharge. DISCHARGE ASSESSMENT: In today's interview, patient is alert and oriented, pts dress is appropriate. Hygiene and grooming is well-kempt. Smiles on approach and is pleasant and engaged in the interview. Denies depression and anxiety. Denies suicidal and homicidal ideation, planning or intent. Denies and is not observed with daily, psychotic symptoms of delusions, bizarre thinking, obsessions, paranoia, ruminations illogical thoughts, flight of ideas or having poor insight and judgement. Patient has normal mentation, declines further hospitalization on a voluntary status and meets criteria for discharge today. MENTAL STATUS EXAMINATION ON DISCHARGE: Patient is a 40 year old Single, Disabled, Domiciled, female was tested for COVID-19, had become hypoxic and became increasingly agitated while on the medical floor Speech: Is fluid, spontaneous, normal rate, tone and volume Language skills are intact Thought processes including: linear and goal oriented Thought content: denies depression and anxiety. Denies suicidal/homicidal ideation, planning or intent. Abstract reasoning, and computation: fair Description of associations: denies, none observed Description of abnormal or psychotic thoughts: denies, none observed. Judgment: fair Insight: fair Orientation: alert and oriented to person, place, time and situation Recent and remote memory: intact Attention span and concentration: good Language: expansive Fund of knowledge: average Mood: Euthymic Mood Affect: flat MEDICATIONS ON DISCHARGE: See Medication Reconciliation PLAN/FOLLOWUP ARRANGEMENTS: The amount of time spent in the coordination of care for this patient was approximately 25 minutes. ETOH/Disorder Med Rx ETOH/DRUG DISORDER RX: Given to pt at d/c (patient is a pt at [facility], her medications were continued) Vital Signs/I&Os Vital Signs Date Time Temp Pulse Resp B/P (MAP) Pulse Ox O2 Delivery O2 Flow Rate FiO2 08/27/20 06:57 97.1 88 16 104/65 (78) 100 08/26/20 17:27 Room Air Medications Scheduled Benzonatate (Benzonatate) 100 Mg Capsule, 200 MG PO TID for Cough, #42 Bupropion HCl (Wellbutrin Xl) 300 Mg Tab.er.24h, 300 MG PO DAILY, (Reported) Escitalopram Oxalate (Lexapro) 10 Mg Tablet, 10 MG PO DAILY, (Reported) 30MG TOTAL DAILY Escitalopram Oxalate (Lexapro) 20 Mg Tablet, 20 MG PO DAILY, (Reported) 30MG TOTAL DAILY Gabapentin (Gabapentin) 800 Mg Tablet, 800 MG PO TID, (Reported) Levothyroxine Sodium (Levothyroxine Sodium) 125 Mcg Tablet, 1 TAB PO DAILY for 30 Days, #30 Methadone HCl (Methadone HCl) 10 Mg/1 Ml Oral.conc, 155 MG PO DAILY, (Reported) VERIFIED WITH [facility] Quetiapine Fumarate (Quetiapine Fumarate ER) 150 Mg Tab.er.24h, 150 MG PO QHS, (Reported) Quetiapine Fumarate (Seroquel) 25 Mg Tablet, 12.5 MG PO BID, (Reported) TAKE AT 0900 & 1600 Quetiapine Fumarate (Seroquel Xr) 150 Mg Tab.er.24h, 150 MG PO QHS, (Reported) Trazodone HCl (Trazodone HCl) 100 Mg Tablet, 100 MG PO QHS, (Reported) Scheduled PRN Guaifenesin (Guaifenesin) 200 Mg Tablet, 200 MG PO Q8HP PRN for CONGESTION, #21 Allergies Coded Allergies: No Known Allergies (Verified , 10/22/18) BIPIN TIRADO NP August 27, 2020 13:11
[2020-08-27 14:00] VITALS: BP 124/58
--- NOTE | 2020-08-27 14:13 | MHIPN ---
[facility] PROGRESS NOTE DATE OF SERVICE: 08/26/2020 HISTORY OF PRESENT ILLNESS: The patient today tells me that she is feeling better and she is more verbal and attentive today. MENTAL STATUS EXAM: This patient is alert and oriented times 3. Eye contact is fair. Psychomotor activity is normal. She says she is not suicidal or homicidal. Concentration is fair. Memory intact. She is not psychotic. DIAGNOSIS: 1. Schizoaffective disorder. 2. Post traumatic stress disorder by history. 3. Unspecified anxiety disorder by history. 4. History of opioid use disorder. 5. History of alcohol use disorder. 6. Borderline personality disorder. 7. History of intellectual disability. TREATMENT PLAN: At this point we will continue to monitor the patient for continued elevation and stabilization of her mood. HILARIO
== END 2020-08-27 14:15 | disposition home or self-care (01) | DRG 750 ==
LOC: M PSY 18:46
PROVIDERS: ADMIT Psychiatry & Neurology Psychiatry; ATTEND Psychiatry & Neurology Psychiatry
DX: F25.9 Schizoaffective disorder, unspecified (principal); E66.2 Morbid (severe) obesity with alveolar hypoventilation; F79 Unspecified intellectual disabilities; Z68.41 Body mass index [BMI] 40.0-44.9, adult; F43.10 Post-traumatic stress disorder, unspecified; F41.9 Anxiety disorder, unspecified; F11.10 Opioid abuse, uncomplicated; F10.10 Alcohol abuse, uncomplicated; F60.3 Borderline personality disorder; Z87.891 Personal history of nicotine dependence; E87.6 Hypokalemia; Z79.899 Other long term (current) drug therapy; Z86.16 Personal history of COVID-19; Z62.810 Personal history of physical and sexual abuse in childhood

== ENCOUNTER 2020-10-02 11:07 | Emergency (ER) | payer OTHER ==
[~2020-10-02] VITALS: Ht 160 cm; Wt 110.5 kg
[~2020-10-02 11:07] MED LIST changes: +BENZ-18 PO; +GUAI20TA PO
[2020-10-02 12:38] LABS: HEMATOCRIT 35.4 % (36.0-47.0); HEMOGLOBIN 11.2 g/dl (12.0-15.5); MEAN CORPUSCULAR HEMOGLOBIN 29.6 pg (27.0-33.0); MEAN CORPUSCULAR HGB CONC 31.6 g/dl (32.0-36.5); MEAN CORPUSCULAR VOLUME 93.4 fl (80.0-96.0); PLATELET COUNT, AUTOMATED 179 10^3/uL (150-450); RED BLOOD COUNT 3.79 10^6/uL (4.00-5.40); WHITE BLOOD COUNT 5.9 10^3/uL (4.0-10.0)
[2020-10-02 13:05] LABS: AMPHETAMINES LEVEL URINE NEGATIVE (NEGATIVE); BARBITURATES URINE NEGATIVE (NEGATIVE); BENZODIAZEPINES URINE NEGATIVE (NEGATIVE); CANNABINOIDS URINE NEGATIVE (NEGATIVE); COCAINE METABOLITE URINE NEGATIVE (NEGATIVE); METHADONE URINE POSITIVE (NEGATIVE); OPIATES URINE NEGATIVE (NEGATIVE); PHENCYCLIDINE URINE NEGATIVE (NEGATIVE)
[2020-10-02 13:08] LABS: ACETAMINOPHEN LEVEL < 2.0 UG/ML (10.0-30.0); ALBUMIN 3.9 GM/DL (3.2-5.2); ALT/SGPT 18 U/L (12-78); BILIRUBIN,DIRECT 0.1 MG/DL (0.0-0.2); BILIRUBIN,TOTAL 0.3 MG/DL (0.2-1.0); BLOOD UREA NITROGEN 14 MG/DL (7-18); CARBON DIOXIDE LEVEL 29 MEQ/L (21-32); CHLORIDE LEVEL 105 MEQ/L (98-107); CREATININE FOR GFR 1.33 MG/DL (0.55-1.30); ETHYL ALCOHOL (ETHANOL) < 0.003 % (0.000-0.010); GLOMERULAR FILTRATION RATE 47.5 (>60); GLUCOSE, FASTING 73 MG/DL (70-100); POTASSIUM SERUM 4.9 MEQ/L (3.5-5.1); SALICYLATE LEVEL 2.8 MG/DL (5.0-30.0); SODIUM LEVEL 140 MEQ/L (136-145); TOTAL PROTEIN 7.6 GM/DL (6.4-8.2)
[2020-10-02] MEDS ORDERED: NEOSPORIN OINT 0.9 GM PKT TOP ONE (14:00)
[2020-10-02] MEDS ORDERED: IBUPROFEN 400MG TAB PO ONE (16:40)
[2020-10-02] MEDS ORDERED: hydrOXYzine 25 MG TAB PO ONE (16:40)
[2020-10-02] MEDS ORDERED: LEVOTHYROXINE 125MCG TABLET (0.125MG) PO ONE (18:35)
[2020-10-02] MEDS ORDERED: GABAPENTIN 400MG CAP PO ONE (20:55)
[2020-10-02] MEDS ORDERED: traZODone 100 MG TAB PO ONE (20:55)
[2020-10-02] MEDS ORDERED: QUEtiapine FUMERATE XR 50 MG TABER PO SCH (21:00)
[2020-10-02] MEDS ORDERED: QUEtiapine FUMARATE **XR** 200MG TABLET PO SCH (21:00)
[2020-10-02 22:20] LABS: RSV AMPLIFICATION NEGATIVE (NEGATIVE)
[2020-10-03 02:10] VITALS: BP 95/60
--- NOTE | 2020-10-03 11:04 | ECGEPIP ---
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
== END 2020-10-03 02:14 ==
LOC: M ED 11:07
DX: F33.3 Major depressive disorder, recurrent, severe with psychotic symptoms (principal); E03.9 Hypothyroidism, unspecified; R94.31 Abnormal electrocardiogram [ECG] [EKG]; F17.200 Nicotine dependence, unspecified, uncomplicated; Z79.890 Hormone replacement therapy; Z79.899 Other long term (current) drug therapy; Z81.8 Family history of other mental and behavioral disorders

== ENCOUNTER 2021-01-20 15:40 | Emergency (ER) | payer OTHER ==
[~2021-01-20] VITALS: Ht 160 cm; Wt 118.2 kg
[~2021-01-20 15:40] MED LIST changes: -DOXY100C PO; +DOXY100C3 PO; -IBUP200T45 PO; +IBUP200T46 PO; +METH-1177 PO; -METH10TA2 PO; +OLAN1TAB16 PO; -OLAN5TAB PO; +QUET1TAB17 PO; -QUET25TA3 PO; -QUET50TA3 PO; +QUET50TA4 PO
[2021-01-20 15:42] VITALS: BP 111/77
--- OUTSIDE RECORDS SUMMARY | 2021-01-20 15:52 | CCD ---
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 Completed 11/08/2020 11/19/2020 acetaminophen 500 mg tablet TAKE TWO TABLETS BY MOUTH EVERY 6 HOURS NEEDED FOR PAIN OR DYSPNEA Completed 06/04/2020 Advil 200 mg tablet 600 mg by oral route. Completed 11/08/2020 11/19/2020 albuterol sulfate HFA 90 mcg/actuation a erosol inhaler INHALE TWO PUFFS BY MOUTH EVERY 4 HOURS NEEDED FOR SHORTNESS OF BREATH Active Not available aspirin 81 mg tablet,delayed release Active Not available bacitracin 500 unit/gram topical ointmen t apply to left upper leg incision Active Not av ailable benzonatate 100 mg capsule TAKE TWO CAPSULES BY MOUTH THREE TIMES DAILY FOR COUGH Completed 09/07/2020 benzonatate 200 mg capsule Completed 11/12 bupropion HCl XL 150 mg 24 hr tablet, extended release Active Not available bupropion HCl XL 300 mg 24 hr tablet, extended release Active Not available buspirone 10 mg tablet TAKE ONE TABLET BY MOUTH TWICE DAILY Active No t available buspirone 5 mg tablet Completed 11/12/2020 cephalexin 500 mg capsule Take 500 mg every 6 hours by oral route as directed for 10 days. Completed 11/08/2020 11/19/2020 cetirizine 10 mg tablet TAKE ONE TABLET BY MOUTH ONCE DAILY FOR FOR ALLERGY SYMPTOMS Completed 06/04/2020 cholecalciferol (vitamin D3) 25 mcg (1,0 00 unit) tablet 2000 units by oral route. Active Not availabl e docusate sodium 100 mg capsule 100 mg by oral route. Active Not available doxycycline hyclate 100 mg tablet TAKE ONE TABLET BY MOUTH TWICE DAILY FOR mrsa Completed 04/27/2020 escitalopram 10 mg tablet TAKE ONE TABLET BY MOUTH EVERY MORNING Completed 09/07/2020 escitalopram 20 mg tablet Completed 2020 fluconazole 150 mg tablet Completed 2020 fluticasone propionate 50 mcg/actuation nasal spray,suspension INSTILL ONE SPRAY IN EACH NOSTRIL TWICE DAILY Completed 07/17/2020 gabapentin 300 mg capsule TAKE TWO CAPSULES BY MOUTH THREE TIMES DAILY Completed 04/27/2020 gabapentin 400 mg capsule TAKE TWO CAPSULES BY MOUTH THREE TIMES DAILY Active Not available gabapentin 600 mg tablet TAKE ONE TABLET BY MOUTH THREE TIMES DAILY Completed 04/27/2020 gabapentin 800 mg tablet TAKE ONE TABLET BY MOUTH THREE TIMES A DAY FOR ANXIETY Active Not available guaifenesin 200 mg tablet Active Not av ailable hydroxyzine HCl 50 mg tablet Active Not available ibuprofen 800 mg tablet Completed 11/13/19 levothyroxine 100 mcg tablet TAKE 1 AND 1/2 TABLETS BY MOUTH @6AM ON an EMPTY STOMACH Completed 11/21/2020 levothyroxine 150 mcg tablet Completed 12/2020 levothyroxine 175 mcg tablet 175 ugs by oral route. Active 11/09/2020 11/09/2021 levothyroxine 200 mcg tablet Completed 07/2020 liothyronine 5 mcg tablet Completed 2020 Mapap Arthritis Pain 650 mg tablet,exten ded release TAKE ONE TABLET BY MOUTH EVERY 6 HOURS NEEDED FOR PAIN OR FOR HIGH TEMPERATURE >101 Completed 06/04/2020 methadone 145 mg / day Active Not available methadone 10 mg/mL oral concentrate 145 mg by oral route. Active Not available nicotine 21 mg/24 hr daily transdermal patch Completed 06/04/2020 nitrofurantoin monohydrate/macrocrystals 100 mg capsule Complete d 06/04/2020 olanzapine 5 mg tablet TAKE ONE TABLET BY MOUTH TWICE DAILY NEEDED FOR ANXIETY OR AGITATION Completed 06/04/2020 prazosin 1 mg capsule TAKE ONE CAPSULE BY MOUTH AT BEDTIME Active No t available prednisone 10 mg tablet TAKE 5 TABLETS BY MOUTH ONCE DAILY ON DAY 1, 4 TABLETS ON DAY 2, 3 TABLETS ON DAY 3, 2 TABLETS ON DAY 4, AND 1 TABLET ON DAYS 5&6 Completed 04/27/2020 propranolol 10 mg tablet TAKE ONE TABLET BY MOUTH TWICE DAILY Completed quetiapine 100 mg tablet TAKE ONE TABLET BY MOUTH AT BEDTIME Completed quetiapine 25 mg tablet TAKE ONE TABLET BY MOUTH TWICE A DAY Completed quetiapine 50 mg tablet TAKE ONE TABLET BY MOUTH TWICE DAILY Completed quetiapine ER 150 mg tablet,extended rel ease 24 hr TAKE ONE TABLET BY MOUTH AT BEDTIME Completed quetiapine ER 200 mg tablet,extended rel ease 24 hr TAKE ONE TABLET BY MOUTH AT BEDTIME Active Not available Stimulant Laxative Plus 8.6 mg-50 mg tab let TAKE ONE TABLET BY MOUTH TWICE DAILY Active No t available Sudogest 30 mg tablet TAKE ONE TABLET BY MOUTH THREE TIMES DAILY FOR COLD SYMPTOMS Completed 07/17/2020 sulfamethoxazole 800 mg-trimethoprim 160 mg tablet TAKE ONE TABLET BY MOUTH EVERY TWELVE HOURS Completed 07/17/2020 trazodone 100 mg tablet TAKE ONE TABLET BY MOUTH AT BEDTIME Active Not available trazodone 150 mg tablet Completed 11/13/19 trazodone 50 mg tablet Active Not avail able Problems Name Status Onset Date Source Hypothyroidism Active 11/03/2017 Syringomyelia Active 11/03/2017 Impaired Fasting Glycemia Active 10/04/2018 Screening for Malignant Neoplasm of Cervix Active 10/04 Clinical Finding Active 10/04/[address] Concept Active 10/04/2018 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 Sarcoidosis Active 02/02/2019 Mixed Anxiety and Depressive Disorder Active 02/02/2019 Psychoactive Substance Abuse Active 02/02/2019 Influenza Vaccine Needed Active 02/02/2019 Renal Impairment Active 02/02/2019 Susan Infection of Genital Region Active 02/02/2019 Pathological Fracture - Ankle And/or Foot Active 2019 Closed Fracture of Left Lower Limb Active 10/26/2020 External Akinesia Active 10/27/2020 External Procedures Date Name Performed by Bilateral Tubal Ligation Information not available Section Information not avai lable Results Lab Results Date Name Specimen Result Interpretation Description Value Range Status Address 10/02/2020 Influenza A/B RSV Covid Amp Normal Influenza a Amplification negative negative Final [facility] nter: [address] [facility] Normal Influenza B Amplification negative n egative Final [facility]: [address] [facility] Normal RSV Amplification negative negative Final [facility]: [address] [facility] Normal Sars Covid-19 Amplification negative negative Final [facility]: [address] [place] [address] 07/17/2020 CBC W/ Auto Diff Normal White Blood Count 4.8 10 4.0-10.[address] [facility]: [address] [facility] Normal Red Blood Count 4.09 10 4.00-5.[address] [facility]: [address] [facility] Normal Hemoglobin 12.1 g/dL 12.0-15.5 g/dL [facility]: [address] [facility] Normal Hematocrit 37.1 % 36.0-47.0 % [facility]: [address] [place] [address] Normal Mean Corpuscular Volume 90.7 fL 80.0 -96.[address] [facility]: [address] [place] [address] Normal Mean Corpuscular Hemoglobin 29.6 pg 27.0-33.[address] [facility]: [address] [place] [address] Normal Mean Corpuscular HGB Conc 32.6 g/dL 32.0-36.5 g/dL [facility]: [address] [facility] Normal Red Cell Distribution Width 13.0 % 1 1.5-14.5 % [facility]: [address] [place] [address] Normal Platelet Count, Automated 185 10 150 -[address] [facility]: [address] [facility] Normal Neutrophils % 64.4 % 36.0-66.0 % Fin [facility]: [address] [facility] Low Lymph % 21.7 % 24.0-44.0 % [facility]: [address] [facility] Normal [place] % 7.5 % 2.0-8.0 % Final [facility]: [address] [facility] High Eos % 5.0 % 0.0-3.0 % [facility]: [address] [facility] Normal Baso % 0.8 % 0.0-1.0 % [facility]: 0 [facility] Normal Immature Granulocyte % 0.6 % 0-3.0 % [facility]: [address] [facility] Normal Nucleated Red Blood Cell % 0.0 % 0- 0 % [facility]: [address] [facility] Normal Neutrophils # 3.1 10 1.5-8.5 10 [place] [facility]: [address] [facility] Low Lymph # 1.0 10 1.5-5.0 10 [facility]: [address] [facility] Normal [place] # 0.4 10 0.0-0.8 10 [facility]: [address] [facility] Normal Eos # 0.2 10 0.0-0.5 10 [facility]: [address] [facility] Normal Baso # 0.0 10 0.0-0.2 10 [facility]: [address] [facility] 07/17/2020 CMP, Serum or Plasma Blood venous High Glu cose, Fasting 108 mg/dL 70-100 mg/dL [facility] nter: [address] [facility] Blood venous Normal Blood Urea Nitrogen 11 mg/dL 7-18 mg/dL [facility]: [address] [place] [address] Blood venous Normal Creatinine for GFR 1.14 mg/dL 0.55-1.30 mg/dL [facility]: [address] [place] [address] Blood venous Low Glomerular Filtration Rate 56 .8 >60 [facility]: 0 [facility] Blood venous Normal Sodium Level 142 mEq/L 136-14 5 mEq/L [facility]: 0 [facility] Blood venous Normal Potassium Serum 4.5 mEq/L 3.5 -5.1 mEq/L [facility]: 0 [facility] Blood venous High Chloride Level 108 mEq/L 98-1 07 mEq/L [facility]: 0 [facility] Blood venous Normal Carbon Dioxide Level 27 mEq/L 21-32 mEq/L [facility]: 0 [facility] Blood venous Low Anion Gap 7 mEq/L 8-16 mEq/L [facility]: [address] [facility] Blood venous Normal Calcium Level 8.8 mg/dL 8.5-1 0.1 mg/dL [facility]: [address] [facility] Blood venous Normal AST/SGOT 19 U/L 7-37 U/L [place] [facility]: [address] [facility] Blood venous Normal ALT/SGPT 22 U/L 12-78 U/L [facility]: [address] [facility] Blood venous High Alkaline Phosphatase 136 U/L 45-117 U/L [facility]: [address] [facility] Blood venous Normal Bilirubin,total 0.3 mg/dL 0.2 -1.0 mg/dL [facility]: 0 [facility] Blood venous Normal Total Protein 6.7 gm/dL 6.4-8 .2 gm/dL [facility]: [address] [place] [address] Blood venous Normal Albumin 3.5 gm/dL 3.2-5.2 gm/ dL [facility]: [address] [place] [address] Blood venous Low Albumin/globulin Ratio 1.1 1.2-2.2 [facility]: [address] [place] [address] 07/17/2020 Lipid Panel, Blood Blood venous Normal Trigl ycerides Level 133 mg/dL <150 mg/dL [facility] nter: [address] [facility] Blood venous Normal Cholesterol Level 183 mg/dL < 200 mg/dL [facility]: 0 [facility] Blood venous Low HDL Cholesterol 39 mg/dL >40 mg/dL [facility]: [address] [place] [address] Blood venous High LDL Cholesterol 117 mg/dL <10 0 mg/dL [facility]: [address] [place] [address] Blood venous Normal Non-hdl-c 144 mg/dL Fi [facility]: [address] [facility] Blood venous Normal Cholesterol Risk Ratio 4.692 <5 [facility]: [address] [place] [address] 07/17/2020 TSH + Free T4, Serum Blood venous High Thyroid Stimulating Hormone 6.030 uIU/mL 0.358-3.740 uIU/mL [facility]: [address] [place] [address] Blood venous Low Free T4 0.55 NG/dL 0.76-1.46 NG/dL [facility]: [address] [place] [address] 07/05/2020 CBC W/ Auto Diff Normal White Blood Count 4.0 10 4.0-10.[address] [facility]: [address] [place] [address] Low Red Blood Count 3.69 10 4.00-5.[address] [facility]: [address] [place] [address] Low Hemoglobin 11.1 g/dL 12.0-15.5 g/dL [facility]: [address] [place] [address] Low Hematocrit 34.5 % 36.0-47.0 % [facility]: [address] [place] [address] Normal Mean Corpuscular Volume 93.5 fL 80.0 -96.[address] [facility]: [address] [place] [address] Normal Mean Corpuscular Hemoglobin 30.1 pg 27.0-33.[address] [facility]: [address] [place] [address] Normal Mean Corpuscular HGB Conc 32.2 g/dL 32.0-36.5 g/dL [facility]: [address] [place] [address] Normal Red Cell Distribution Width 12.8 % 1 1.5-14.5 % [facility]: [address] [place] [address] Low Platelet Count, Automated 143 10 150 -[address] [facility]: [address] [place] [address] Normal Neutrophils % 59.8 % 36.0-66.0 % [facility]: [address] [place] [address] Low Lymph % 23.5 % 24.0-44.0 % [facility]: [address] [place] [address] High [place] % 10.6 % 2.0-8.0 % [facility]: [address] [place] [address] High Eos % 5.3 % 0.0-3.0 % [facility]: [address] [facility] Normal Baso % 0.5 % 0.0-1.0 % [facility]: [address] [facility] Normal Immature Granulocyte % 0.3 % 0-3.0 % [facility]: [address] [facility] Normal Nucleated Red Blood Cell % 0.0 % 0- 0 % [facility]: [address] [facility] Normal Neutrophils # 2.4 10 1.5-8.5 10 [facility] [address] [facility] Low Lymph # 0.9 10 1.5-5.0 10 [facility]: [address] [facility] Normal [place] # 0.4 10 0.0-0.8 10 [facility]: [address] [facility] Normal Eos # 0.2 10 0.0-0.5 10 [facility]: [address] [facility] Normal Baso # 0.0 10 0.0-0.2 10 [facility]: [address] [facility] 07/05/2020 CMP, Serum or Plasma High Glucose, Fastin g 106 mg/dL 70-100 mg/dL [facility]: [address] [facility] Normal Blood Urea Nitrogen 12 mg/dL 7-18 mg /dL [facility]: 0 [facility] Normal Creatinine for GFR 1.20 mg/dL 0.55-1 .30 mg/dL [facility]: [address] [facility] Low Glomerular Filtration Rate 53.5 >[address] [facility]: [address] [facility] Normal Sodium Level 141 mEq/L 136-145 mEq/L [facility]: 0 [facility] Normal Potassium Serum 4.5 mEq/L 3.5-5.1 mE q/L [facility]: [address] [facility] Normal Chloride Level 107 mEq/L 98-107 mEq/ L [facility]: [address] [facility] Normal Carbon Dioxide Level 29 mEq/L 21-32 mEq/L [facility]: [address] [facility] Low Anion Gap 5 mEq/L 8-16 mEq/L [facility]: [address] [facility] Normal Calcium Level 8.9 mg/dL 8.5-10.1 mg/ dL [facility]: [address] [facility] Normal AST/SGOT 31 U/L 7-37 U/L [facility]: [address] [facility] Normal ALT/SGPT 42 U/L 12-78 U/L [facility]: [address] [facility] High Alkaline Phosphatase 129 U/L 45-117 U/L [facility]: [address] [facility] Normal Bilirubin,total 0.3 mg/dL 0.2-1.0 mg /dL [facility]: [address] [facility] Normal Total Protein 6.6 gm/dL 6.4-8.2 gm/d L [facility]: [address] [facility] Normal Albumin 3.5 gm/dL 3.2-5.2 gm/dL [facility]: [address] [facility] Low Albumin/globulin Ratio 1.1 1.2-2. 2 [facility]: [address] [facility] 07/05/2020 Magnesium, Serum or Plasma Normal Magnesium Level 2.1 mg/dL 1.8-2.4 mg/dL [facility]: [address] [facility] 07/05/2020 C Reactive Protein, QN, Serum or Plasma High C Reactive Protein Quantitativ 1.85 mg/dL 0.00-0.30 mg/dL [facility]: [address] [facility] 07/05/2020 Procalcitonin, Serum Normal Procalcitonin 0.05 [facility]: [address] [facility] 06/26/2020 Lipid Panel, Blood High Triglycerides Lev el 200 mg/dL <150 mg/dL [facility]: [address] [facility] Normal Cholesterol Level 193 mg/dL <200 mg/ dL Final [facility]: [address] [facility] Low HDL Cholesterol 37 mg/dL >40 mg/dL F inal [facility]: [address] [facility] High LDL Cholesterol 116 mg/dL <100 mg/dL Final [facility]: [address] [facility] Normal Non-hdl-c 156 mg/dL Final [facility]: [address] [facility] High Cholesterol Risk Ratio 5.216 <5 Final [facility]: [address] [facility] 06/24/2020 Influenza A/B RSV Covid Amp Normal Influenza a Amplification negative negative Final [facility] nter: [address] [facility] Normal Influenza B Amplification negative n egative Final [facility]: [address] [facility] Normal RSV Amplification negative negative Final [facility]: [address] [facility] Normal Sars Covid-19 Amplification negative negative Final [facility]: [address] [facility] 06/24/2020 Influenza A/B RSV Covid Amp Normal Influenza a Amplification negative negative Final [facility] nter: [address] [facility] Normal Influenza B Amplification negative n egative Final [facility]: [address] [facility] Normal RSV Amplification negative negative Final [facility]: [address] [facility] Normal Sars Covid-19 Amplification negative negative Final [facility]: [address] [facility] 05/21/2020 Cbc Normal White Blood Count 5.2 10 4.0-10. [address] [facility]: [address] [facility] Normal Red Blood Count 4.24 10 4.00-5.[address] [facility]: [address] [facility] Normal Hemoglobin 12.7 g/dL 12.0-15.5 g/dL Final [facility]: [address] [facility] Normal Hematocrit 40.4 % 36.0-47.0 % [facility]: [address] [facility] Normal Mean Corpuscular Volume 95.3 fL 80.0 -96.[address] [facility]: [address] [facility] Normal Mean Corpuscular Hemoglobin 30.0 pg 27.0-33.[address] [facility]: [address] [facility] Low Mean Corpuscular HGB Conc 31.4 g/dL 32.0-36.5 g/dL [facility]: [address] [facility] High Red Cell Distribution Width 14.8 % 1 1.5-14.5 % [facility]: [address] [facility] Low Platelet Count, Automated 136 10 150 -[address] [facility]: [address] [facility] Normal Nucleated Red Blood Cell % 0.0 % 0- 0 % [facility]: [address] [facility] 05/21/2020 Drug Screen, Urine Normal Amphetamines Leve l Urine negative negative [facility]: [address] [facility] Normal Barbiturates Urine negative negative [facility]: [address] [facility] Normal Benzodiazepines Urine negative negat doron [facility]: [address] [facility] Normal Cannabinoids Urine negative negative [facility]: [address] [facility] Normal Cocaine Metabolite Urine negative ne gative [facility]: [address] [facility] High Methadone Urine positive negative Fi nal [facility]: [address] [facility] Normal Opiates Urine negative negative [place] [facility]: [address] [facility] Normal Phencyclidine Urine negative negativ e [facility]: [address] [facility] 05/21/2020 Hepatic Function Panel, Serum Normal AST/SG OT 19 U/L 7-37 U/L [facility]: [address] [facility] Normal ALT/SGPT 21 U/L 12-78 U/L [facility]: [address] [facility] High Alkaline Phosphatase 129 U/L 45-117 U/L [facility]: [address] [facility] Normal Bilirubin,total 0.3 mg/dL 0.2-1.0 mg /dL [facility]: [address] [facility] Normal Bilirubin,direct 0.1 mg/dL 0.0-0.2 m g/dL [facility]: [address] [facility] Normal Total Protein 7.6 gm/dL 6.4-8.2 gm/d L [facility]: [address] [facility] Normal Albumin 4.2 gm/dL 3.2-5.2 gm/dL [place] [facility]: [address] [facility] Normal Albumin/globulin Ratio 1.2 1.2-2. 2 [facility]: 0 [facility] 05/21/2020 BMP, Serum or Plasma Normal Glucose, Fastin g 92 mg/dL 70-100 mg/dL [facility]: [address] [facility] Normal Blood Urea Nitrogen 7 mg/dL 7-18 mg/ dL [facility]: 0 [facility] High Creatinine for GFR 1.53 mg/dL 0.55-1 .30 mg/dL [facility]: 0 [facility] Low Glomerular Filtration Rate 40.4 >[address] [facility]: 0 [facility] Normal Sodium Level 139 mEq/L 136-145 mEq/L [facility]: 0 [facility] Normal Potassium Serum 4.5 mEq/L 3.5-5.1 mE q/L [facility]: [address] [facility] Normal Chloride Level 105 mEq/L 98-107 mEq/ L [facility]: 0 [facility] Normal Carbon Dioxide Level 28 mEq/L 21-32 mEq/L [facility]: 0 [facility] Low Anion Gap 6 mEq/L 8-16 mEq/L [facility]: 0 [facility] Normal Calcium Level 9.1 mg/dL 8.5-10.1 mg/ dL [facility]: 0 [facility] 05/21/2020 Ethanol, Blood Normal Ethyl Alcohol (Ethano l) < 0.003 % 0.000- 0.010 % [facility]: [address] [facility] 05/21/2020 Salicylate, Quantitative, Serum Low Sali cylate Level 3.2 mg/dL 5.0-30.0 mg/dL [facility]: [address] [facility] 05/21/2020 Acetaminophen, Serum Low Acetaminophen L evel < 2.0 ug/mL 10.0- 30.0 ug/mL [facility]: [address] [facility] 05/21/2020 TSH, Serum or Plasma High Thyroid Stimulating Hormone 90.900 uIU/mL 0.358-3.740 uIU/mL [facility] nter: [address] [facility] 05/21/2020 beta-HCG, Qualitative, Serum or Plasma Normal HCG, Serum Qualitative negative negative [facility]: [address] [facility] [facility] 05/[facility]2020 Influenza A/B RSV Covid Amp Normal Influenza a Amplification negative negative [facility] nter: 830 [facility] Normal Influenza B Amplification negative n egative [facility]: 830 [facility] Normal RSV Amplification negative negative [facility]: 830 [facility] Normal Sars Covid-[address] [facility]: 830 [facility] 03/05/2020 Cbc Normal White Blood Count 5.4 10 4.0-[address]. [address] [facility]: 830 [facility] Normal Red Blood Count 4.20 10 4.00-5.[address] [facility]: 830 [facility] Normal Hemoglobin 12.1 g/dL 12.0-15.5 g/dL [facility]: 830 [facility] Normal Hematocrit 39.0 % 36.0-47.0 % [facility]: 830 [facility] Normal Mean Corpuscular Volume 92.9 fL 80.0 -96.[address] [facility]: 830 [facility] Normal Mean Corpuscular Hemoglobin 28.8 pg 27.0-33.[address] [facility]: 830 [facility] Low Mean Corpuscular HGB Conc 31.0 g/dL 32.0-36.5 g/dL [facility]: 830 [facility] Normal Red Cell Distribution Width 14.2 % 1 1.5-14.5 % [facility]: 830 [facility] Low Platelet Count, Automated 97 10 150 -[address] [facility]: 830 [facility] High Nucleated Red Blood Cell % 0.4 % 0- 0 % [facility]: 830 [facility] 03/05/2020 Reticulated Platelets, Percentage, Automated Count, Blood Normal Immature Platelet Fraction % 1.3 % 0.0-9.59 % [facility]: 830 [facility] 03/05/2020 BMP, Serum or Plasma Normal Glucose, Fastin g 97 mg/dL 70-100 mg/dL [facility]: 83 0 [facility] Normal Blood Urea Nitrogen 10 mg/dL 7-18 mg /dL [facility]: 0 [facility] High Creatinine for GFR 1.57 mg/dL 0.55-1 .30 mg/dL [facility]: 0 [facility] Low Glomerular Filtration Rate 39.5 >[address] [facility]: 830 [facility] Normal Sodium Level 143 mEq/L 136-145 mEq/L [facility]: 830 [facility] Normal Potassium Serum 3.5 mEq/L 3.5-5.1 mE q/L [facility]: 830 [facility] High Chloride Level 110 mEq/L 98-107 mEq/ L [facility]: 830 [facility] Normal Carbon Dioxide Level 26 mEq/L 21-32 mEq/L [facility]: 830 [facility] Low Anion Gap 7 mEq/L 8-16 mEq/L [facility]: 830 [facility] Normal Calcium Level 8.5 mg/dL 8.5-10.1 mg/ dL [facility]: 830 [facility] 03/05/2020 Magnesium, Serum or Plasma Normal Magnesium Level 2.0 mg/dL 1.8-2.4 mg/dL [facility]: 83 0 [facility] 03/04/2020 Cbc Normal White Blood Count 4.4 10 4.0-[address]. [address] [facility]: 830 [facility] Normal Red Blood Count 4.12 10 4.00-5.[address] [facility]: 830 [facility] Low Hemoglobin 11.9 g/dL 12.0-15.5 g/dL [facility]: 830 [facility] Normal Hematocrit 39.4 % 36.0-47.0 % [facility]: 830 [facility] Normal Mean Corpuscular Volume 95.6 fL 80.0 -96.[address] [facility]: 830 [facility] Normal Mean Corpuscular Hemoglobin 28.9 pg 27.0-33.[address] [facility]: 0 [facility] Low Mean Corpuscular HGB Conc 30.2 g/dL 32.0-36.5 g/dL [facility]: 830 [facility] Normal Red Cell Distribution Width 14.2 % 1 1.5-14.5 % [facility]: 830 [facility] Low Platelet Count, Automated 101 10 150 -[address] [facility]: 830 [facility] Normal Nucleated Red Blood Cell % 0.0 % 0- 0 % [facility]: 830 [facility] 03/04/2020 BMP, Serum or Plasma Normal Glucose, Fastin g 86 mg/dL 70-100 mg/dL [facility]: 83 0 [facility] Normal Blood Urea Nitrogen 8 mg/dL 7-18 mg/ dL [facility]: 0 [facility] High Creatinine for GFR 1.57 mg/dL 0.55-1 .30 mg/dL [facility]: 0 [facility] Low Glomerular Filtration Rate 39.5 >[address] [facility]: 830 [facility] Normal Sodium Level 145 mEq/L 136-145 mEq/L [facility]: 830 [facility] Normal Potassium Serum 3.8 mEq/L 3.5-5.1 mE q/L [facility]: 830 [facility] High Chloride Level 111 mEq/L 98-107 mEq/ L [facility]: 830 [facility] Normal Carbon Dioxide Level 30 mEq/L 21-32 mEq/L [facility]: 0 [facility] Low Anion Gap 4 mEq/L 8-16 mEq/L [facility]: 0 [facility] Low Calcium Level 8.2 mg/dL 8.5-10.1 mg/ dL [facility]: 0 [facility] 03/04/2020 Magnesium, Serum or Plasma Normal Magnesium Level 2.1 mg/dL 1.8-2.4 mg/dL [facility]: 83 0 [facility] 03/03/2020 Cbc Normal White Blood Count 4.7 10 4.0-10. [address] [facility]: [address] [place] [address] Low Red Blood Count 3.99 10 4.00-5.[address] [facility]: 0 [facility] Low Hemoglobin 11.6 g/dL 12.0-15.5 g/dL [facility]: 0 [facility] Normal Hematocrit 38.3 % 36.0-47.0 % [facility]: 0 [facility] Normal Mean Corpuscular Volume 96.0 fL 80.0 -96.[address] [facility]: 0 [facility] Normal Mean Corpuscular Hemoglobin 29.1 pg 27.0-33.[address] [facility]: 0 [facility] Low Mean Corpuscular HGB Conc 30.3 g/dL 32.0-36.5 g/dL [facility]: 830 [facility] Normal Red Cell Distribution Width 14.3 % 1 1.5-14.5 % [facility]: 830 [facility] Low Platelet Count, Automated 111 10 150 -[address] [facility]: 830 [facility] Normal Nucleated Red Blood Cell % 0.0 % 0- 0 % [facility]: 830 [facility] 03/03/2020 BMP, Serum or Plasma Normal Glucose, Fastin g 70 mg/dL 70-100 mg/dL [facility]: 83 0 [facility] Normal Blood Urea Nitrogen 8 mg/dL 7-18 mg/ dL [facility]: 0 [facility] High Creatinine for GFR 1.48 mg/dL 0.55-1 .30 mg/dL [facility]: 830 [facility] Low Glomerular Filtration Rate 42.[address] >[address] [facility]: 830 [facility] Normal Sodium Level 144 mEq/L 136-145 mEq/L [facility]: 830 [facility] Normal Potassium Serum 3.6 mEq/L 3.5-5.1 mE q/L [facility]: 830 [facility] High Chloride Level 111 mEq/L 98-107 mEq/ L [facility]: 830 [facility] Normal Carbon Dioxide Level 29 mEq/L 21-32 mEq/L [facility]: 830 [facility] Low Anion Gap 4 mEq/L 8-16 mEq/L [facility]: 830 [facility] Low Calcium Level 8.0 mg/dL 8.5-10.1 mg/ dL [facility]: 830 [facility] 03/03/2020 Magnesium, Serum or Plasma Normal Magnesium Level 2.1 mg/dL 1.8-2.4 mg/dL [facility]: 83 0 [facility] 03/03/2020 Thyroid Panel, Serum Normal T Uptake 30 % 30 -39 % [facility]: [address] [place] [address] Normal Thyroxine (T4) 5.2 ug/dL 4.5-12.0 ug /dL [facility]: [address] [place] [address] Normal Free Thyroxine Index 1.6 % 1.3-4.8 % [facility]: [address] [place] [address] High Thyroid Stimulating Hormone 16 4.000 uIU/mL 0.358-3.740 uIU/mL [facility]: [address] [place] [address] 03/03/2020 Vitamin D 1,25 Dihydroxy Normal Vit raymond D 1,25 Dihydroxy 40.6 pg/mL 19.9-79.3 pg/mL [facility] nter: [address] [place] [address] 03/02/2020 Cbc Normal White Blood Count 6.5 10 4.0-[address]. [address] [facility]: [address] [place] [address] Low Red Blood Count 3.65 10 4.00-5.[address] [facility]: [address] [place] [address] Low Hemoglobin 10.7 g/dL 12.0-15.5 g/dL [facility]: [address] [place] [address] Low Hematocrit 35.6 % 36.0-47.0 % [facility]: [address] [place] [address] High Mean Corpuscular Volume 97.5 fL 80.0 -96.[address] [facility]: [address] [place] [address] Normal Mean Corpuscular Hemoglobin 29.3 pg 27.0-33.[address] [facility]: [address] [place] [address] Low Mean Corpuscular HGB Conc 30.1 g/dL 32.0-36.5 g/dL [facility]: [address] [place] [address] Normal Red Cell Distribution Width 14.1 % 1 1.5-14.5 % [facility]: [address] [place] [address] Low Platelet Count, Automated 106 10 150 -[address] [facility]: [address] [place] [address] Normal Nucleated Red Blood Cell % 0.0 % 0- 0 % [facility]: 830 [facility] 03/02/2020 BMP, Serum or Plasma Low Glucose, Fastin g 63 mg/dL 70-100 mg/dL [facility]: 83 0 [facility] Normal Blood Urea Nitrogen 10 mg/dL 7-18 mg /dL [facility]: 830 [facility] High Creatinine for GFR 1.39 mg/dL 0.55-1 .30 mg/dL [facility]: 830 [facility] Low Glomerular Filtration Rate 45.[address] >[address] [facility]: 830 [facility] High Sodium Level 146 mEq/L 136-145 mEq/L [facility]: 830 [facility] Normal Potassium Serum 3.8 mEq/L 3.5-5.1 mE q/L [facility]: 830 [facility] High Chloride Level 114 mEq/L 98-107 mEq/ L [facility]: 830 [facility] Normal Carbon Dioxide Level 27 mEq/L 21-32 mEq/L [facility]: 830 [facility] Low Anion Gap 5 mEq/L 8-16 mEq/L [facility]: 830 [facility] Low Calcium Level 7.6 mg/dL 8.5-10.1 mg/ dL [facility]: 830 [facility] 03/02/2020 Magnesium, Serum or Plasma Normal Magnesium Level 2.2 mg/dL 1.8-2.4 mg/dL [facility]: 83 0 [facility] 03/02/2020 Glucose, Fingerstick, Blood Normal Bedside Glucose 96 mg/dL 70- 105 mg/dL [facility]: 83 0 [facility] 03/02/2020 Thyroid Panel, Serum Normal T Uptake 30 % 30 -39 % [facility]: 830 [facility] Low Thyroxine (T4) 3.5 ug/dL 4.5-12.0 ug /dL [facility]: 830 [facility] Low Free Thyroxine Index 1.1 % 1.3-4.8 % [facility]: 830 [facility] High Thyroid Stimulating Hormone 27 3.000 uIU/mL 0.358-3.740 uIU/mL [facility]: 830 [facility] 03/01/2020 Gas Panel, Arterial Blood Low ABG pH (Ar terial) 7.328 units 7.350-7.[address] [facility]: 83 0 [facility] High ABG Partial Pressure CO2 45.2 mmHg 3 5.0-45.[address] [facility]: 830 [facility] Normal ABG Partial Pressure O2 91.2 mmHg 75 .0-100.[address] [facility]: 0 [facility] Normal ABG Total CO2 24.6 mEq/L 22.0-29.0 m Eq/L [facility]: 830 [facility] Normal Abg Hco3 23.2 mEq/L 22.0-26.0 mEq/L [facility]: 830 [facility] Low ABG Base Excess -2.8 -2.0-2.0 [place] [facility]: 0 [facility] Normal ABG Standard HCO3 22.1 mEq/L 22.0-26 .0 mEq/L [facility]: 830 [facility] Normal ABG O2 Saturation 96.9 % 95.0-99.0 % [facility]: 830 [facility] 03/01/2020 Gas Panel, Arterial Blood Low ABG pH (Ar terial) 7.306 units 7.350-7.[address] [facility]: 83 0 [facility] High ABG Partial Pressure CO2 51.5 mmHg 3 5.0-45.[address] [facility]: 830 [facility] Normal ABG Partial Pressure O2 80.4 mmHg 75 .0-100.[address] [facility]: 830 [facility] Normal ABG Total CO2 26.7 mEq/L 22.0-29.0 m Eq/L [facility]: 830 [facility] Normal Abg Hco3 25.1 mEq/L 22.0-26.0 mEq/L [facility]: 830 [facility] Normal ABG Base Excess -1.7 -2.0-2.0 [facility]: 830 [facility] Normal ABG Standard HCO3 23.0 mEq/L 22.0-26 .0 mEq/L [facility]: 830 [facility] Normal ABG O2 Saturation 95.4 % 95.0-99.0 % [facility]: [address] [place] [address] 03/01/2020 Gas Panel, Arterial Blood Low ABG pH (Ar terial) 7.327 units 7.350-7.[address] [facility]: 83 0 [facility] High ABG Partial Pressure CO2 52.4 mmHg 3 5.0-45.[address] [facility]: 0 [facility] Normal ABG Partial Pressure O2 87.0 mmHg 75 .0-100.[address] [facility]: 0 [facility] Normal ABG Total CO2 28.4 mEq/L 22.0-29.0 m Eq/L [facility]: [address] [place] [address] High Abg Hco3 26.8 mEq/L 22.0-26.0 mEq/L [facility]: 830 [facility] Normal ABG Base Excess 0.2 -2.0-2.0 [facility]: 830 [facility] Normal ABG Standard HCO3 24.6 mEq/L 22.0-26 .0 mEq/L [facility]: 0 [facility] Normal ABG O2 Saturation 96.6 % 95.0-99.0 % [facility]: [address] [place] [address] 03/01/2020 Angiotensin 1 Converting Enzym Normal Angiotensin 1 Converting Enzym 61 U/L 14-82 U/L [facility]: 830 [facility] 02/29/2020 Cbc Normal White Blood Count 8.8 10 4.0-10. [address] [facility]: 830 [facility] Normal Red Blood Count 4.24 10 4.00-5.[address] [facility]: 830 [facility] Normal Hemoglobin 12.0 g/dL 12.0-15.5 g/dL [facility]: 0 [facility] Normal Hematocrit 40.1 % 36.0-47.0 % [facility]: 0 [facility] Normal Mean Corpuscular Volume 94.6 fL 80.0 -96.[address] [facility]: 0 [facility] Normal Mean Corpuscular Hemoglobin 28.3 pg 27.0-33.[address] [facility]: [address] [place] [address] Low Mean Corpuscular HGB Conc 29.9 g/dL 32.0-36.5 g/dL [facility]: 0 [facility] Normal Red Cell Distribution Width 14.0 % 1 1.5-14.5 % [facility]: [address] [place] [address] Normal Platelet Count, Automated 151 10 150 -[address] [facility]: 0 [facility] Normal Nucleated Red Blood Cell % 0.0 % 0- 0 % [facility]: 0 [facility] 02/29/2020 BMP, Serum or Plasma High Glucose, Fastin g 131 mg/dL 70-100 mg/dL [facility]: 83 0 [facility] Normal Blood Urea Nitrogen 10 mg/dL 7-18 mg /dL [facility]: 0 [facility] High Creatinine for GFR 1.87 mg/dL 0.55-1 .30 mg/dL [facility]: 0 [facility] Low Glomerular Filtration Rate 32.[address] >[address] [facility]: 0 [facility] Normal Sodium Level 140 mEq/L 136-145 mEq/L [facility]: 830 [facility] Normal Potassium Serum 4.2 mEq/L 3.5-5.1 mE q/L Final [facility]: 8[address] [facility] Normal Chloride Level 106 mEq/L 98-107 mEq/ L [facility]: 830 [facility] Normal Carbon Dioxide Level 28 mEq/L 21-32 mEq/L [facility]: 830 [facility] Low Anion Gap 6 mEq/L 8-16 mEq/L [facility]: 830 [facility] Low Calcium Level 8.4 mg/dL 8.5-10.1 mg/ dL [facility]: 830 [facility] 02/29/2020 Magnesium, Serum or Plasma Normal Magnesium Level 2.2 mg/dL 1.8-2.4 mg/dL [facility]: 83 0 [facility] 02/29/2020 Gas Panel, Arterial Blood Low ABG pH (Ar terial) 7.346 units 7.350-7.[address] [facility]: 83 0 [facility] High ABG Partial Pressure CO2 51.7 mmHg 3 5.0-45.[address] [facility]: 0 [facility] Low ABG Partial Pressure O2 59.0 mmHg 75 .0-100.[address] [facility]: 830 [facility] High ABG Total CO2 29.2 mEq/L 22.0-29.0 m Eq/L [facility]: 830 [facility] High Abg Hco3 27.6 mEq/L 22.0-26.0 mEq/L [facility]: 830 [facility] Normal ABG Base Excess 1.2 -2.0-2.0 [place] [facility]: 830 [facility] Normal ABG Standard HCO3 25.3 mEq/L 22.0-26 .0 mEq/L [facility]: 830 [facility] Low ABG O2 Saturation 90.2 % 95.0-99.0 % [facility]: [address] [place] [address] 02/29/2020 Gas Panel, Arterial Blood Low ABG pH (Ar terial) 7.327 units 7.350-7.[address] [facility]: 83 0 [facility] High ABG Partial Pressure CO2 55.0 mmHg 3 5.0-45.[address] [facility]: 0 [facility] Normal ABG Partial Pressure O2 76.0 mmHg 75 .0-100.[address] [facility]: [address] [place] [address] High ABG Total CO2 29.8 mEq/L 22.0-29.0 m Eq/L [facility]: [address] [place] [address] High Abg Hco3 28.2 mEq/L 22.0-26.0 mEq/L [facility]: [address] [place] [address] Normal ABG Base Excess 1.2 -2.0-2.0 [place] [facility]: [address] [place] [address] Normal ABG Standard HCO3 25.5 mEq/L 22.0-26 .0 mEq/L [facility]: 0 [facility] Normal ABG O2 Saturation 95.0 % 95.0-99.0 % [facility]: [address] [place] [address] 02/28/2020 CBC W/ Auto Diff Normal White Blood Count 6.0 10 4.0-10.[address] [facility]: [address] [place] [address] Normal Red Blood Count 4.71 10 4.00-5.[address] [facility]: 0 [facility] Normal Hemoglobin 13.8 g/dL 12.0-15.5 g/dL [facility]: [address] [place] [address] Normal Hematocrit 44.9 % 36.0-47.0 % [facility]: [address] [place] [address] Normal Mean Corpuscular Volume 95.3 fL 80.0 -96.[address] [facility]: [address] [place] [address] Normal Mean Corpuscular Hemoglobin 29.3 pg 27.0-33.[address] [facility]: 830 [facility] Low Mean Corpuscular HGB Conc 30.7 g/dL 32.0-36.5 g/dL Final [facility]: 8[address] [facility] Normal Red Cell Distribution Width 14.3 % 1 1.5-14.5 % Final [facility]: [address] [place] [address] Low Platelet Count, Automated 148 10 150 -[address] [facility]: 830 [facility] High Neutrophils % 67.9 % 36.0-66.0 % [facility]: [address] [facility] Low Lymph % 17.1 % 24.0-44.0 % Final [facility]: [address] [facility] High [place] % 6.0 % 0.0-5.0 % Final [facility]: 0 [facility] High Eos % 3.8 % 0.0-3.0 % Final [facility]: 0 [facility] High Baso % 1.2 % 0.0-1.0 % Final [facility]: [address] [facility] High Immature Granulocyte % 4.0 % 0-3.0 % [facility]: 0 [facility] Normal Nucleated Red Blood Cell % 0.0 % 0- 0 % [facility]: 830 [facility] Normal Neutrophils # 4.1 10 1.5-8.5 10 [facility]: 8[address] [facility] Low Lymph # 1.0 10 1.5-5.0 10 Final [facility]: 830 [facility] Normal [place] # 0.4 10 0.0-0.8 10 [facility]: 0 [facility] Normal Eos # 0.2 10 0.0-0.5 10 [facility]: 8[address] [facility] Normal Baso # 0.1 10 0.0-0.2 10 [facility]: [address] [place] [address] 02/28/2020 Istat Chem8+ Panel Normal Istat HCT 46.0 % 38. 0-51.0 % [facility]: 830 [facility] Normal Istat Glucose 94 mg/dL 70-105 mg/dL [facility]: 830 [facility] Normal Istat Sodium 138 mEq/L 136-145 mEq/L [facility]: 830 [facility] Panic High Istat Potassium 6.9 mEq/L 3.5-5. 1 mEq/L [facility]: 8[address] [facility] Low Istat Ca++ 4.4 mg/dL 4.5-5.3 mg/dL F [facility]: [address] [facility] Normal Istat Chloride 100 mEq/L 98-109 mEq/ L [facility]: 830 [facility] High Istat CO2 32.0 mm/L 23.0-27.0 mm/L F [facility]: 830 [facility] Normal Istat BUN 12 mg/dL 8-26 mg/dL [facility]: 830 [facility] High Istat Creatinine 2.3 mg/dL 0.6-1.3 m g/dL [facility]: 830 [facility] 02/28/2020 Ctni Istat Normal Istat Troponin 0.01 NG/m L 0.00-0.08 NG/mL [facility]: [address] [facility] 02/28/2020 SARS CoV 2 RNA (COVID-19), QL, computer forensics technician-PCR, Respirat ory Specimen Normal Sars Covid-[address] [facility]: [address] [facility] 02/28/2020 Hepatic Function Panel, Serum Normal AST/SG OT 18 U/L 7-37 U/L [facility]: 830 [facility] [facility] Low ALT/SGPT 11 U/L 12-78 U/L [facility]: 830 [facility] Normal Alkaline Phosphatase 98 U/L 45-117 U /L [facility]: 830 [facility] Normal Bilirubin,total 0.3 mg/dL 0.2-1.0 mg /dL [facility]: 830 [facility] Normal Bilirubin,direct < 0.1 mg/dL 0.0-0.2 mg/dL [facility]: 830 [facility] Normal Total Protein 7.8 gm/dL 6.4-8.2 gm/d L [facility]: 830 [facility] Normal Albumin 4.0 gm/dL 3.2-5.2 gm/dL [place] [facility]: 830 [facility] Low Albumin/globulin Ratio 1.1 1.2-2. [address] [facility]: 0 [facility] 02/28/2020 BMP, Serum or Plasma High Glucose, Fastin g 108 mg/dL 70-100 mg/dL [facility]: 83 0 [facility] Normal Blood Urea Nitrogen 11 mg/dL 7-18 mg /dL [facility]: 830 [facility] High Creatinine for GFR 2.30 mg/dL 0.55-1 .30 mg/dL [facility]: 0 [facility] Low Glomerular Filtration Rate 25.4 >[address] [facility]: 830 [facility] Normal Sodium Level 137 mEq/L 136-145 mEq/L [facility]: 830 [facility] Normal Potassium Serum 4.4 mEq/L 3.5-5.1 mE q/L [facility]: 830 [facility] Normal Chloride Level 103 mEq/L 98-107 mEq/ L [facility]: 830 [facility] Normal Carbon Dioxide Level 31 mEq/L 21-32 mEq/L [facility]: 830 [facility] Low Anion Gap 3 mEq/L 8-16 mEq/L [facility]: 830 [facility] Normal Calcium Level 9.6 mg/dL 8.5-10.1 mg/ dL [facility]: 830 [facility] 02/28/2020 TSH, Serum or Plasma High Thyroid Stimulating Hormone 190.000 uIU/mL 0.358-3.740 uIU/mL [facility] nter: [address] [place] [address] 02/28/2020 beta-HCG, Qualitative, Serum or Plasma Normal HCG, Serum Qualitative negative negative [facility]: [address] [place] [address] 02/28/2020 Istat ABG Normal Istat pH 7.359 units 7.350-7. [address] [facility]: [address] [place] [address] High Istat pCO2 51.0 mmHg 35.0-45.[address] [facility]: [address] [place] [address] CRITICAL LOW Istat pO2 46.0 mmHg 80-[address] [facility]: [address] [place] [address] High Istat TCO2 30.0 mmol/L 23.0-27.0 mmo l/L [facility]: [address] [place] [address] High Istat HCO3 28.7 mmol/L 22.0-26.0 mmo l/L [facility]: 0 [facility] Normal Istat Base Excess 3.0 mmol/L -2.0-3. 0 mmol/L [facility]: [address] [place] [address] Low Istat So2 79 % 95-98 % [facility]: 0 [facility] 02/28/2020 CK (Creatine Kinase) Mb, Quantitative, Blood Hi gh CPK Creatine Phosphokinase 277 U/L 26-192 U/L [facility]: 830 [facility] 02/28/2020 Uric Acid, Serum or Plasma High Uric Acid 8.3 mg/dL 2.6-6.0 mg/dL [facility]: 83 0 [facility] 02/28/2020 Magnesium, Serum or Plasma Normal Magnesium Level 2.1 mg/dL 1.8-2.4 mg/dL [facility]: 83 0 [facility] 02/28/2020 Osmolality, Serum Normal Osmolality Serum 292 mOsm/kg 275-295 mOsm/kg [facility]: 83 0 [facility] 02/28/2020 T4, Free, Serum Low Free T4 0.19 NG/dL 0.76 -1.46 NG/dL [facility]: 830 [facility] 02/28/2020 Triiodothyronine Free, QN, Serum or Plasma Low Free T3 < 0.5 pg/mL 2.2-4.0 pg/mL [facility] nter: 830 [facility] 02/28/2020 D-dimer, Quant, Plasma High D-dimer Quant 1194.11 NG/mL <500 NG/mL [facility]: 83 0 [facility] 02/28/2020 Procalcitonin, Serum Normal Procalcitonin <0.[address] [facility]: 830 [facility] 02/28/2020 Urinalysis, Dipstick High Appearance, Urine cloudy clear [facility]: 830 [facility] Normal Color, Urine yellow yellow [facility]: 830 [facility] Normal pH,urine 7.0 units 5.0-9.0 units [facility]: 830 [facility] Normal Specific Moody Urine Auto 1.016 1 .002-1.035 [facility]: 830 [facility] Normal Protein, Urine Auto negative mg/dL n egative mg/dL [facility]: 830 [facility] Normal Glucose, Urine (UA) Auto negative mg /dL negative mg/dL [facility]: 830 [facility] Normal Ketone, Urine Auto negative mg/dL ne gative mg/dL [facility]: 830 [facility] Normal Urobilinogen, Urine Auto 0.2 mg/dL 0 .0-2.0 mg/dL [facility]: 830 [facility] Normal Bilirubin, Urine Auto negative negat doron [facility]: 830 [facility] Normal Nitrite, Urine Auto positive negativ e [facility]: 830 [facility] High Leukocyte Esterase, Urine Auto 1+ negative [facility]: 830 [facility] Normal Blood, Urine Blood negative negative [facility]: 830 [facility] High WBC, Urine Auto 13 /hpf 0-3 /hpf [facility]: 830 [facility] Normal RBC, Urine Auto 1 /hpf 0-3 /hpf [place] [facility]: 830 [facility] High Bacteria, Urine Auto 3+ negative [facility]: 830 [facility] Normal Squamous Epithelial Cell Ur AU 5 /hp f 0-6 /hpf [facility]: 830 [facility] Normal Transitional Epithelial Auto <1 /hpf none /hpf [facility]: 830 [facility] Normal Mucus, Urine small negative [facility]: 830 [facility] Normal Hyaline Cast, Urine Auto 0 /lpf 0-1 /lpf [facility]: 830 [facility] 02/28/2020 Osmolality, Urine Normal Osmolality Urine 523 mOsm/kg 500-800 mOsm/kg [facility]: 83 0 [facility] 02/28/2020 Creatinine, Urine Normal Creatinine,random Urine 165.0 mg/dL [facility]: 830 [facility] 02/28/2020 Sodium, Urine Normal Sodium,random Urine 61 mE q/L [facility]: 830 [facility] 02/28/2020 Potassium, Urine Normal Potassium Random Ur ine 96.0 mEq/L [facility]: 830 [facility] Past Encounters 11/21/2020 Long-term Drug Therapy; Hypothyroidism; Closed Fracture of Lower Limb Marlee Gaspar MD: [address] [place] [phone], Ph. 09/07/2020 Body Mass Index 40+ - Severely Obese; Nicotine Dependence with Current Use; Abscess of Skin And/or Subcutaneous Tissue Marlee Gaspar MD: [address] [place] [phone], Ph. 09/04/2020 Covid-19 Marlee Gaspar MD: [address] [place] [phone], Ph. 07/17/2020 Mixed Anxiety and Depressive Disorder; Sarcoidosis; Hypothyroidism Karl Lott MD: [address] [place] [phone], Ph. 06/04/2020 Mixed Anxiety and Depressive Disorder; Hypothyroidism Karl Lott MD: [address] [place] [phone], Ph. 04/27/2020 Severe Recurrent Major Depression without Psychotic Features; Hypothyroidism; Sarcoidosis; Nicotine Dependence with Current Use Re [facility]: [address] [place] [phone], Ph. 02/28/2020 Dyspnea; Fall Re [facility]: [address] [place] [phone], Ph. Social History Tobacco Smoking Status Light Tobacco Smoker (1/4 pack per da y) Vaccine List Vaccine Type influenza, injectable, quadrivalent, pre servative free 02/02/20190.5 mL Plan of Care Reminders Provider Appointments None recorded. Lab None recorded. Referral None recorded. Procedures None recorded. Surgeries None recorded. Imaging None recorded. Vitals 11/21/2020 09:40AM TCM Height Weight BMI Blood Pressure 63 in 114/80 mm[Hg] 09/07/2020 10:20AM SAME DAY 20 Height Weight BMI Blood Pressure 63 in 242 lbs 9.6 oz 43 kg/m2 111/76 mm[Hg ] 09/04/2020 10:20AM TELEHEALTH 20 Height 63 in 07/17/2020 10:00AM HOSPITAL DISCHARGE Height Weight BMI Blood Pressure 63 in 242 lbs 4 oz 42.9 kg/m2 105/73 mm[Hg] 06/04/2020 01:40PM ESTABLISHED [id number] Height Weight BMI Blood Pressure 63 in 224 lbs 6 oz 39.7 kg/m2 108/76 mm[Hg] 04/27/2020 03:20PM HOSPITAL DISCHARGE Height Weight BMI Blood Pressure 63 in 238 lbs 6 oz 42.2 kg/m2 101/72 mm[Hg] 08/19/2019 Height Weight BMI Blood Pressure 63 in 203 lbs 3.04 oz 36.12 kg/m2 102/79 mm[H g] 02/17/2019 Height Weight BMI Blood Pressure 63 in 192 lbs 12.8 oz 34.28 kg/m2 116/76 mm[H g] 02/02/2019 Height Weight BMI Blood Pressure 63 in 197 lbs 8 oz 35.11 kg/m2 120/85 mm[Hg] 10/04/2018 Height Weight BMI Blood Pressure 63 in 208 lbs 4.96 oz 37.03 kg/m2 108/72 mm[H g]
--- OUTSIDE RECORDS SUMMARY | 2021-01-20 15:52 | CCD ---
Author Organization Unknown Address [address] [place] [address] Phone [phone] Care Team Providers Care Vitamin Manager Name Role Phone LottKarl Unavailable Unavailable Allergies [...] Normal Influenza a Amplification negative negative Final [facility] nter: [address] [facility] Normal Influenza B Amplification negative n egative Final [facility]: [address] [facility] Normal RSV Amplification negative negative Final [facility]: [address] [facility] Normal Sars Covid-19 Amplification negative negative Final [facility]: [address] [place] [address] 07/17/2020 CBC W/ Auto Diff Normal White Blood Count 4.8 10 4.0-10.0 10 [facility]: [address] [facility] Normal Red Blood Count 4.09 10 4.00-5.40 10 [facility]: [address] [facility] Normal Hemoglobin 12.1 g/dL 12.0-15.5 g/dL [facility]: [address] [facility] Normal Hematocrit 37.1 % 36.0-47.0 % [facility]: [address] [place] [address] Normal Mean Corpuscular Volume 90.7 fL 80.0 -96.0 fL [facility]: [address] [place] [address] Normal Mean Corpuscular Hemoglobin 29.6 pg 27.0-33.0 pg [facility]: [address] [place] [address] Normal Mean Corpuscular HGB Conc 32.6 g/dL 32.0-36.5 g/dL [facility]: [address] [facility] Normal Red Cell Distribution Width 13.0 % 1 1.5-14.5 % [facility]: [address] [place] [address] Normal Platelet Count, Automated 185 10 150 -450 10 [facility]: [address] [facility] Normal Neutrophils % 64.4 % 36.0-66.0 % Fin [facility]: [address] [facility] Low Lymph % 21.7 % 24.0-44.0 % [facility]: [address] [facility] Normal [place] % 7.5 % 2.0-8.0 % Final [facility]: 0 [facility] High Eos % 5.0 % 0.0-3.0 % [facility]: [address] [facility] Normal Baso % 0.8 % 0.0-1.0 % [facility]: 0 [facility] Normal Immature Granulocyte % 0.6 % 0-3.0 % [facility]: [address] [facility] Normal Nucleated Red Blood Cell % 0.0 % 0- 0 % [facility]: [address] [facility] Normal Neutrophils # 3.1 10 1.5-8.5 10 [facility]: [address] [facility] Low Lymph # 1.0 10 1.5-5.0 10 [facility]: [address] [facility] Normal [place] # 0.4 10 0.0-0.8 10 [facility]: [address] [facility] Normal Eos # 0.2 10 0.0-0.[address] [facility]: [address] [facility] Normal Baso # 0.0 10 0.0-0.2 10 [facility]: [address] [facility] 07/17/2020 CMP, Serum or Plasma Blood venous High Glu cose, Fasting 108 mg/dL 70-100 mg/dL [facility] nter: [address] [facility] Blood venous Normal Blood Urea Nitrogen 11 mg/dL 7-18 mg/dL [facility]: [address] [place] [address] Blood venous Normal Creatinine for GFR 1.14 mg/dL 0.55-1.30 mg/dL [facility]: [address] [place] [address] Blood venous Low Glomerular Filtration Rate 56 .8 >60 [facility]: 0 [facility] Blood venous Normal Sodium Level 142 mEq/L 136-14 5 mEq/L [facility]: 0 [facility] Blood venous Normal Potassium Serum 4.5 mEq/L 3.5 -5.1 mEq/L [facility]: 0 [facility] Blood venous High Chloride Level 108 mEq/L 98-1 07 mEq/L [facility]: 0 [facility] Blood venous Normal Carbon Dioxide Level 27 mEq/L 21-32 mEq/L [facility]: 0 [facility] Blood venous Low Anion Gap 7 mEq/L 8-16 mEq/L [facility]: [address] [facility] Blood venous Normal Calcium Level 8.8 mg/dL 8.5-1 0.1 mg/dL [facility]: [address] [facility] Blood venous Normal AST/SGOT 19 U/L 7-37 U/L [facility]: [address] [facility] Blood venous Normal ALT/SGPT 22 U/L 12-78 U/L [facility]: [address] [facility] Blood venous High Alkaline Phosphatase 136 U/L 45-117 U/L [facility]: [address] [facility] Blood venous Normal Bilirubin,total 0.3 mg/dL 0.2 -1.0 mg/dL [facility]: 0 [facility] Blood venous Normal Total Protein 6.7 gm/dL 6.4-8 .2 gm/dL [facility]: [address] [place] [address] Blood venous Normal Albumin 3.5 gm/dL 3.2-5.2 gm/ dL [facility]: [address] [place] [address] Blood venous Low Albumin/globulin Ratio 1.1 1.2-2.2 [facility]: [address] [place] [address] 07/17/2020 Lipid Panel, Blood Blood venous Normal Trigl ycerides Level 133 mg/dL <150 mg/dL [facility] nter: [address] [facility] Blood venous Normal Cholesterol Level 183 mg/dL < 200 mg/dL [facility]: 0 [facility] Blood venous Low HDL Cholesterol 39 mg/dL >40 mg/dL [facility]: [address] [place] [address] Blood venous High LDL Cholesterol 117 mg/dL <10 0 mg/dL [facility]: [address] [place] [address] Blood venous Normal Non-hdl-c 144 mg/dL Fi [facility]: [address] [facility] Blood venous Normal Cholesterol Risk Ratio 4.692 <5 [facility]: [address] [place] [address] 07/17/2020 TSH + Free T4, Serum Blood venous High Thyroid Stimulating Hormone 6.030 uIU/mL 0.358-3.740 uIU/mL [facility]: [address] [place] [address] Blood venous Low Free T4 0.55 NG/dL 0.76-1.46 NG/dL [facility]: [address] [place] [address] 07/05/2020 CBC W/ Auto Diff Normal White Blood Count 4.0 10 4.0-10.0 10 [facility]: [address] [place] [address] Low Red Blood Count 3.69 10 4.00-5.40 10 [facility]: [address] [place] [address] Low Hemoglobin 11.1 g/dL 12.0-15.5 g/dL [facility]: [address] [place] [address] Low Hematocrit 34.5 % 36.0-47.0 % [facility]: [address] [place] [address] Normal Mean Corpuscular Volume 93.5 fL 80.0 -96.0 fL [facility]: [address] [place] [address] Normal Mean Corpuscular Hemoglobin 30.1 pg 27.0-33.0 pg [facility]: [address] [place] [address] Normal Mean Corpuscular HGB Conc 32.2 g/dL 32.0-36.5 g/dL [facility]: [address] [place] [address] Normal Red Cell Distribution Width 12.8 % 1 1.5-14.5 % [facility]: [address] [place] [address] Low Platelet Count, Automated 143 10 150 -450 10 [facility]: [address] [place] [address] Normal Neutrophils % 59.8 % 36.0-66.0 % [facility]: [address] [place] [address] Low Lymph % 23.5 % 24.0-44.0 % [facility]: [address] [place] [address] High [place] % 10.6 % 2.0-8.0 % [facility]: [address] [place] [address] High Eos % 5.3 % 0.0-3.0 % [facility]: [address] [facility] Normal Baso % 0.5 % 0.0-1.0 % [facility]: [address] [facility] Normal Immature Granulocyte % 0.3 % 0-3.0 % [facility]: [address] [facility] Normal Nucleated Red Blood Cell % 0.0 % 0- 0 % [facility]: [address] [facility] Normal Neutrophils # 2.4 10 1.5-8.5 10 [facility]: [address] [facility] Low Lymph # 0.9 10 1.5-5.0 10 [facility]: [address] [facility] Normal [place] # 0.4 10 0.0-0.8 10 [facility]: [address] [facility] Normal Eos # 0.2 10 0.0-0.[address] [facility]: [address] [facility] Normal Baso # 0.0 10 0.0-0.2 10 [facility]: [address] [facility] 07/05/2020 CMP, Serum or Plasma High Glucose, Fastin g 106 mg/dL 70-100 mg/dL [facility]: [address] [facility] Normal Blood Urea Nitrogen 12 mg/dL 7-18 mg /dL [facility]: 0 [facility] Normal Creatinine for GFR 1.20 mg/dL 0.55-1 .30 mg/dL [facility]: [address] [facility] Low Glomerular Filtration Rate 53.5 >6 0 [facility]: [address] [facility] Normal Sodium Level 141 mEq/L 136-145 mEq/L [facility]: 0 [facility] Normal Potassium Serum 4.5 mEq/L 3.5-5.1 mE q/L [facility]: [address] [facility] Normal Chloride Level 107 mEq/L 98-107 mEq/ L [facility]: [address] [facility] Normal Carbon Dioxide Level 29 mEq/L 21-32 mEq/L [facility]: [address] [facility] Low Anion Gap 5 mEq/L 8-16 mEq/L [facility]: [address] [facility] Normal Calcium Level 8.9 mg/dL 8.5-10.1 mg/ dL [facility]: [address] [facility] Normal AST/SGOT 31 U/L 7-37 U/L [facility]: [address] [facility] Normal ALT/SGPT 42 U/L 12-78 U/L [facility]: [address] [facility] High Alkaline Phosphatase 129 U/L 45-117 U/L [facility]: [address] [facility] Normal Bilirubin,total 0.3 mg/dL 0.2-1.0 mg /dL [facility]: [address] [facility] Normal Total Protein 6.6 gm/dL 6.4-8.2 gm/d L [facility]: [address] [facility] Normal Albumin 3.5 gm/dL 3.2-5.2 gm/dL [facility]: [address] [facility] Low Albumin/globulin Ratio 1.1 1.2-2. 2 [facility]: [address] [facility] 07/05/2020 Magnesium, Serum or Plasma Normal Magnesium Level 2.1 mg/dL 1.8-2.4 mg/dL [facility]: [address] [facility] 07/05/2020 C Reactive Protein, QN, Serum or Plasma High C Reactive Protein Quantitativ 1.85 mg/dL 0.00-0.30 mg/dL [facility]: [address] [facility] 07/05/2020 Procalcitonin, Serum Normal Procalcitonin 0.05 [facility]: [address] [facility] 06/26/2020 Lipid Panel, Blood High Triglycerides Lev el 200 mg/dL <150 mg/dL [facility]: [address] [facility] Normal Cholesterol Level 193 mg/dL <200 mg/ dL Final [facility]: [address] [facility] Low HDL Cholesterol 37 mg/dL >40 mg/dL F inal [facility]: [address] [facility] High LDL Cholesterol 116 mg/dL <100 mg/dL Final [facility]: [address] [facility] Normal Non-hdl-c 156 mg/dL Final [facility]: [address] [facility] High Cholesterol Risk Ratio 5.216 <5 Final [facility]: [address] [facility] 06/24/2020 Influenza A/B RSV Covid Amp Normal Influenza a Amplification negative negative Final [facility] nter: [address] [facility] Normal Influenza B Amplification negative n egative Final [facility]: [address] [facility] Normal RSV Amplification negative negative Final [facility]: [address] [facility] Normal Sars Covid-19 Amplification negative negative Final [facility]: [address] [facility] 06/24/2020 Influenza A/B RSV Covid Amp Normal Influenza a Amplification negative negative Final [facility] nter: [address] [facility] Normal Influenza B Amplification negative n egative Final [facility]: [address] [facility] Normal RSV Amplification negative negative Final [facility]: [address] [facility] Normal Sars Covid-19 Amplification negative negative Final [facility]: [address] [facility] 05/21/2020 Cbc Normal White Blood Count 5.2 10 4.0-10. 0 10 [facility]: [address] [facility] Normal Red Blood Count 4.24 10 4.00-5.40 10 [facility]: [address] [facility] Normal Hemoglobin 12.7 g/dL 12.0-15.5 g/dL Final [facility]: [address] [facility] Normal Hematocrit 40.4 % 36.0-47.0 % [facility]: [address] [facility] Normal Mean Corpuscular Volume 95.3 fL 80.0 -96.0 fL [facility]: [address] [facility] Normal Mean Corpuscular Hemoglobin 30.0 pg 27.0-33.0 pg [facility]: [address] [facility] Low Mean Corpuscular HGB Conc 31.4 g/dL 32.0-36.5 g/dL [facility]: [address] [facility] High Red Cell Distribution Width 14.8 % 1 1.5-14.5 % [facility]: [address] [facility] Low Platelet Count, Automated 136 10 150 -450 10 [facility]: [address] [facility] Normal Nucleated Red Blood Cell % 0.0 % 0- 0 % [facility]: [address] [facility] 05/21/2020 Drug Screen, Urine Normal Amphetamines Leve l Urine negative negative [facility]: [address] [facility] Normal Barbiturates Urine negative negative [facility]: [address] [facility] Normal Benzodiazepines Urine negative negat doron [facility]: [address] [facility] Normal Cannabinoids Urine negative negative [facility]: [address] [facility] Normal Cocaine Metabolite Urine negative ne gative [facility]: [address] [facility] High Methadone Urine positive negative Fi nal [facility]: [address] [facility] Normal Opiates Urine negative negative [place] [facility]: [address] [facility] Normal Phencyclidine Urine negative negativ e [facility]: [address] [facility] 05/21/2020 Hepatic Function Panel, Serum Normal AST/SG OT 19 U/L 7-37 U/L [facility]: [address] [facility] Normal ALT/SGPT 21 U/L 12-78 U/L [facility]: [address] [facility] High Alkaline Phosphatase 129 U/L 45-117 U/L [facility]: [address] [facility] Normal Bilirubin,total 0.3 mg/dL 0.2-1.0 mg /dL [facility]: [address] [facility] Normal Bilirubin,direct 0.1 mg/dL 0.0-0.2 m g/dL [facility]: [address] [facility] Normal Total Protein 7.6 gm/dL 6.4-8.2 gm/d L [facility]: [address] [facility] Normal Albumin 4.2 gm/dL 3.2-5.2 gm/dL [facility]: [address] [facility] Normal Albumin/globulin Ratio 1.2 1.2-2. 2 [facility]: 0 [facility] 05/21/2020 BMP, Serum or Plasma Normal Glucose, Fastin g 92 mg/dL 70-100 mg/dL [facility]: [address] [facility] Normal Blood Urea Nitrogen 7 mg/dL 7-18 mg/ dL [facility]: 0 [facility] High Creatinine for GFR 1.53 mg/dL 0.55-1 .30 mg/dL [facility]: 0 [facility] Low Glomerular Filtration Rate 40.4 >6 0 [facility]: [address] [facility] Normal Sodium Level 139 mEq/L 136-145 mEq/L [facility]: 0 [facility] Normal Potassium Serum 4.5 mEq/L 3.5-5.1 mE q/L [facility]: [address] [facility] Normal Chloride Level 105 mEq/L 98-107 mEq/ L [facility]: 0 [facility] Normal Carbon Dioxide Level 28 mEq/L 21-32 mEq/L [facility]: 0 [facility] Low Anion Gap 6 mEq/L 8-16 mEq/L [facility]: 0 [facility] Normal Calcium Level 9.1 mg/dL 8.5-10.1 mg/ dL [facility]: 0 [facility] 05/21/2020 Ethanol, Blood Normal Ethyl Alcohol (Ethano l) < 0.003 % 0.000- 0.010 % [facility]: [address] [facility] 05/21/2020 Salicylate, Quantitative, Serum Low Sali cylate Level 3.2 mg/dL 5.0-30.0 mg/dL [facility]: [address] [facility] 05/21/2020 Acetaminophen, Serum Low Acetaminophen L evel < 2.0 ug/mL 10.0- 30.0 ug/mL [facility]: [address] [facility] 05/21/2020 TSH, Serum or Plasma High Thyroid Stimulating Hormone 90.900 uIU/mL 0.358-3.740 uIU/mL [facility] nter: [address] [facility] 05/21/2020 beta-HCG, Qualitative, Serum or Plasma Normal HCG, Serum Qualitative negative negative [facility]: [address] [facility] 05/21/2020 Influenza A/B RSV Covid Amp Normal Influenza a Amplification negative negative [facility] nter: [address] [facility] Normal Influenza B Amplification negative n egative [facility]: [address] [facility] Normal RSV Amplification negative negative [facility] [address] [facility] Normal Sars Covid-19 Amplification negative negative [facility]: [address] [facility] 03/05/2020 Cbc Normal White Blood Count 5.4 10 4.0-10. 0 10 [facility]: [address] [facility] Normal Red Blood Count 4.20 10 4.00-5.40 10 [facility]: [address] [facility] Normal Hemoglobin 12.1 g/dL 12.0-15.5 g/dL [facility]: [address] [facility] Normal Hematocrit 39.0 % 36.0-47.0 % [facility]: [address] [facility] Normal Mean Corpuscular Volume 92.9 fL 80.0 -96.0 fL [facility]: [address] [facility] Normal Mean Corpuscular Hemoglobin 28.8 pg 27.0-33.0 pg [facility]: [address] [facility] Low Mean Corpuscular HGB Conc 31.0 g/dL 32.0-36.5 g/dL [facility]: [address] [facility] Normal Red Cell Distribution Width 14.2 % 1 1.5-14.5 % [facility]: [address] [facility] Low Platelet Count, Automated 97 10 150 -450 10 [facility]: [address] [facility] High Nucleated Red Blood Cell % 0.4 % 0- 0 % [facility]: [address] [facility] 03/05/2020 Reticulated Platelets, Percentage, Automated Count, Blood Normal Immature Platelet Fraction % 1.3 % 0.0-9.59 % [facility]: [address] [facility] 03/05/2020 BMP, Serum or Plasma Normal Glucose, Fastin g 97 mg/dL 70-100 mg/dL [facility]: [address] [facility] Normal Blood Urea Nitrogen 10 mg/dL 7-18 mg /dL [facility]: 0 [facility] High Creatinine for GFR 1.57 mg/dL 0.55-1 .30 mg/dL [facility]: 0 [facility] Low Glomerular Filtration Rate 39.5 >6 0 [facility]: [address] [facility] Normal Sodium Level 143 mEq/L 136-145 mEq/L [facility]: [address] [facility] Normal Potassium Serum 3.5 mEq/L 3.5-5.1 mE q/L [facility]: [address] [facility] High Chloride Level 110 mEq/L 98-107 mEq/ L [facility]: [address] [facility] Normal Carbon Dioxide Level 26 mEq/L 21-32 mEq/L [facility]: [address] [facility] Low Anion Gap 7 mEq/L 8-16 mEq/L [facility]: [address] [facility] Normal Calcium Level 8.5 mg/dL 8.5-10.1 mg/ dL [facility]: [address] [facility] 03/05/2020 Magnesium, Serum or Plasma Normal Magnesium Level 2.0 mg/dL 1.8-2.4 mg/dL [facility]: [address] [facility] 03/04/2020 Cbc Normal White Blood Count 4.4 10 4.0-10. 0 10 [facility]: [address] [facility] Normal Red Blood Count 4.12 10 4.00-5.40 10 [facility]: [address] [facility] Low Hemoglobin 11.9 g/dL 12.0-15.5 g/dL [facility]: [address] [facility] Normal Hematocrit 39.4 % 36.0-47.0 % [facility]: [address] [facility] Normal Mean Corpuscular Volume 95.6 fL 80.0 -96.0 fL [facility]: [address] [facility] Normal Mean Corpuscular Hemoglobin 28.9 pg 27.0-33.0 pg [facility]: 0 [facility] Low Mean Corpuscular HGB Conc 30.2 g/dL 32.0-36.5 g/dL [facility]: [address] [facility] Normal Red Cell Distribution Width 14.2 % 1 1.5-14.5 % [facility]: [address] [facility] Low Platelet Count, Automated 101 10 150 -450 10 [facility]: [address] [facility] Normal Nucleated Red Blood Cell % 0.0 % 0- 0 % [facility]: [address] [facility] 03/04/2020 BMP, Serum or Plasma Normal Glucose, Fastin g 86 mg/dL 70-100 mg/dL [facility]: [address] [facility] Normal Blood Urea Nitrogen 8 mg/dL 7-18 mg/ dL [facility]: 0 [facility] High Creatinine for GFR 1.57 mg/dL 0.55-1 .30 mg/dL [facility]: 0 [facility] Low Glomerular Filtration Rate 39.5 >6 0 [facility]: [address] [facility] Normal Sodium Level 145 mEq/L 136-145 mEq/L [facility]: [address] [facility] Normal Potassium Serum 3.8 mEq/L 3.5-5.1 mE q/L [facility]: [address] [facility] High Chloride Level 111 mEq/L 98-107 mEq/ L [facility]: [address] [facility] Normal Carbon Dioxide Level 30 mEq/L 21-32 mEq/L [facility]: 0 [facility] Low Anion Gap 4 mEq/L 8-16 mEq/L [facility]: 0 [facility] Low Calcium Level 8.2 mg/dL 8.5-10.1 mg/ dL [facility]: 0 [facility] 03/04/2020 Magnesium, Serum or Plasma Normal Magnesium Level 2.1 mg/dL 1.8-2.4 mg/dL [facility]: [address] [facility] 03/03/2020 Cbc Normal White Blood Count 4.7 10 4.0-10. 0 10 [facility]: [address] [place] [address] Low Red Blood Count 3.99 10 4.00-5.40 10 [facility]: 0 [facility] Low Hemoglobin 11.6 g/dL 12.0-15.5 g/dL [facility]: 0 [facility] Normal Hematocrit 38.3 % 36.0-47.0 % [facility]: 0 [facility] Normal Mean Corpuscular Volume 96.0 fL 80.0 -96.0 fL [facility]: 0 [facility] Normal Mean Corpuscular Hemoglobin 29.1 pg 27.0-33.0 pg [facility]: 0 [facility] Low Mean Corpuscular HGB Conc 30.3 g/dL 32.0-36.5 g/dL [facility]: 8[address] [facility] Normal Red Cell Distribution Width 14.3 % 1 1.5-14.5 % [facility]: [address] [facility] Low Platelet Count, Automated 111 10 150 -450 10 [facility]: [address] [facility] Normal Nucleated Red Blood Cell % 0.0 % 0- 0 % [facility]: [address] [facility] 03/03/2020 BMP, Serum or Plasma Normal Glucose, Fastin g 70 mg/dL 70-100 mg/dL [facility]: [address] [facility] Normal Blood Urea Nitrogen 8 mg/dL 7-18 mg/ dL [facility]: 0 [facility] High Creatinine for GFR 1.48 mg/dL 0.55-1 .30 mg/dL [facility]: [address] [facility] Low Glomerular Filtration Rate 42.2 >6 0 [facility]: [address] [facility] Normal Sodium Level 144 mEq/L 136-145 mEq/L [facility]: [address] [facility] Normal Potassium Serum 3.6 mEq/L 3.5-5.1 mE q/L [facility]: [address] [facility] High Chloride Level 111 mEq/L 98-107 mEq/ L [facility]: [address] [facility] Normal Carbon Dioxide Level 29 mEq/L 21-32 mEq/L [facility]: [address] [facility] Low Anion Gap 4 mEq/L 8-16 mEq/L [facility]: [address] [facility] Low Calcium Level 8.0 mg/dL 8.5-10.1 mg/ dL [facility]: [address] [facility] 03/03/2020 Magnesium, Serum or Plasma Normal Magnesium Level 2.1 mg/dL 1.8-2.4 mg/dL [facility]: [address] [facility] 03/03/2020 Thyroid Panel, Serum Normal T Uptake 30 % 30 -39 % [facility]: [address] [place] [address] Normal Thyroxine (T4) 5.2 ug/dL 4.5-12.0 ug /dL [facility]: [address] [place] [address] Normal Free Thyroxine Index 1.6 % 1.3-4.8 % [facility]: [address] [place] [address] High Thyroid Stimulating Hormone 16 4.000 uIU/mL 0.358-3.740 uIU/mL [facility]: [address] [place] [address] 03/03/2020 Vitamin D 1,25 Dihydroxy Normal Vit raymond D 1,25 Dihydroxy 40.6 pg/mL 19.9-79.3 pg/mL [facility] nter: [address] [place] [address] 03/02/2020 Cbc Normal White Blood Count 6.5 10 4.0-10. 0 10 [facility]: [address] [place] [address] Low Red Blood Count 3.65 10 4.00-5.40 10 [facility]: [address] [place] [address] Low Hemoglobin 10.7 g/dL 12.0-15.5 g/dL [facility]: [address] [place] [address] Low Hematocrit 35.6 % 36.0-47.0 % [facility]: [address] [place] [address] High Mean Corpuscular Volume 97.5 fL 80.0 -96.0 fL [facility]: [address] [place] [address] Normal Mean Corpuscular Hemoglobin 29.3 pg 27.0-33.0 pg [facility]: [address] [place] [address] Low Mean Corpuscular HGB Conc 30.1 g/dL 32.0-36.5 g/dL [facility]: [address] [place] [address] Normal Red Cell Distribution Width 14.1 % 1 1.5-14.5 % [facility]: [address] [place] [address] Low Platelet Count, Automated 106 10 150 -450 10 [facility]: [address] [place] [address] Normal Nucleated Red Blood Cell % 0.0 % 0- 0 % [facility]: [address] [facility] 03/02/2020 BMP, Serum or Plasma Low Glucose, Fastin g 63 mg/dL 70-100 mg/dL [facility]: [address] [facility] Normal Blood Urea Nitrogen 10 mg/dL 7-18 mg /dL [facility]: [address] [facility] High Creatinine for GFR 1.39 mg/dL 0.55-1 .30 mg/dL [facility]: [address] [facility] Low Glomerular Filtration Rate 45.4 >6 0 [facility]: [address] [facility] High Sodium Level 146 mEq/L 136-145 mEq/L [facility]: [address] [facility] Normal Potassium Serum 3.8 mEq/L 3.5-5.1 mE q/L [facility]: [address] [facility] High Chloride Level 114 mEq/L 98-107 mEq/ L [facility]: [address] [facility] Normal Carbon Dioxide Level 27 mEq/L 21-32 mEq/L [facility]: [address] [facility] Low Anion Gap 5 mEq/L 8-16 mEq/L [facility]: [address] [facility] Low Calcium Level 7.6 mg/dL 8.5-10.1 mg/ dL [facility]: [address] [facility] 03/02/2020 Magnesium, Serum or Plasma Normal Magnesium Level 2.2 mg/dL 1.8-2.4 mg/dL [facility]: [address] [facility] 03/02/2020 Glucose, Fingerstick, Blood Normal Bedside Glucose 96 mg/dL 70- 105 mg/dL [facility]: [address] [facility] 03/02/2020 Thyroid Panel, Serum Normal T Uptake 30 % 30 -39 % [facility]: [address] [facility] Low Thyroxine (T4) 3.5 ug/dL 4.5-12.0 ug /dL [facility]: [address] [facility] Low Free Thyroxine Index 1.1 % 1.3-4.8 % [facility]: [address] [facility] High Thyroid Stimulating Hormone 27 3.000 uIU/mL 0.358-3.740 uIU/mL [facility]: [address] [facility] 03/01/2020 Gas Panel, Arterial Blood Low ABG pH (Ar terial) 7.328 units 7.350-7.450 units [facility]: [address] [facility] High ABG Partial Pressure CO2 45.2 mmHg 3 5.0-45.0 mmHg [facility]: [address] [facility] Normal ABG Partial Pressure O2 91.2 mmHg 75 .0-100.0 mmHg [facility]: 0 [facility] Normal ABG Total CO2 24.6 mEq/L 22.0-29.0 m Eq/L [facility]: [address] [facility] Normal Abg Hco3 23.2 mEq/L 22.0-26.0 mEq/L [facility]: [address] [facility] Low ABG Base Excess -2.8 -2.0-2.0 [facility]: 0 [facility] Normal ABG Standard HCO3 22.1 mEq/L 22.0-26 .0 mEq/L [facility]: [address] [facility] Normal ABG O2 Saturation 96.9 % 95.0-99.0 % [facility]: [address] [facility] 03/01/2020 Gas Panel, Arterial Blood Low ABG pH (Ar terial) 7.306 units 7.350-7.450 units [facility]: [address] [facility] High ABG Partial Pressure CO2 51.5 mmHg 3 5.0-45.0 mmHg [facility]: [address] [facility] Normal ABG Partial Pressure O2 80.4 mmHg 75 .0-100.0 mmHg [facility]: [address] [facility] Normal ABG Total CO2 26.7 mEq/L 22.0-29.0 m Eq/L [facility]: [address] [facility] Normal Abg Hco3 25.1 mEq/L 22.0-26.0 mEq/L [facility]: [address] [facility] Normal ABG Base Excess -1.7 -2.0-2.0 [facility]: [address] [facility] Normal ABG Standard HCO3 23.0 mEq/L 22.0-26 .0 mEq/L [facility]: [address] [facility] Normal ABG O2 Saturation 95.4 % 95.0-99.0 % [facility]: [address] [place] [address] 03/01/2020 Gas Panel, Arterial Blood Low ABG pH (Ar terial) 7.327 units 7.350-7.450 units [facility]: [address] [facility] High ABG Partial Pressure CO2 52.4 mmHg 3 5.0-45.0 mmHg [facility]: 0 [facility] Normal ABG Partial Pressure O2 87.0 mmHg 75 .0-100.0 mmHg [facility]: 0 [facility] Normal ABG Total CO2 28.4 mEq/L 22.0-29.0 m Eq/L [facility]: [address] [place] [address] High Abg Hco3 26.8 mEq/L 22.0-26.0 mEq/L [facility]: [address] [facility] Normal ABG Base Excess 0.2 -2.0-2.0 [facility]: [address] [facility] Normal ABG Standard HCO3 24.6 mEq/L 22.0-26 .0 mEq/L [facility]: 0 [facility] Normal ABG O2 Saturation 96.6 % 95.0-99.0 % [facility]: [address] [place] [address] 03/01/2020 Angiotensin 1 Converting Enzym Normal Angiotensin 1 Converting Enzym 61 U/L 14-82 U/L [facility]: [address] [facility] 02/29/2020 Cbc Normal White Blood Count 8.8 10 4.0-10. 0 10 [facility]: [address] [facility] Normal Red Blood Count 4.24 10 4.00-5.40 10 [facility]: [address] [facility] Normal Hemoglobin 12.0 g/dL 12.0-15.5 g/dL [facility]: 0 [facility] Normal Hematocrit 40.1 % 36.0-47.0 % [facility]: 0 [facility] Normal Mean Corpuscular Volume 94.6 fL 80.0 -96.0 fL [facility]: 0 [facility] Normal Mean Corpuscular Hemoglobin 28.3 pg 27.0-33.0 pg [facility]: [address] [place] [address] Low Mean Corpuscular HGB Conc 29.9 g/dL 32.0-36.5 g/dL [facility]: 0 [facility] Normal Red Cell Distribution Width 14.0 % 1 1.5-14.5 % [facility]: [address] [place] [address] Normal Platelet Count, Automated 151 10 150 -450 10 [facility]: 0 [facility] Normal Nucleated Red Blood Cell % 0.0 % 0- 0 % [facility]: 0 [facility] 02/29/2020 BMP, Serum or Plasma High Glucose, Fastin g 131 mg/dL 70-100 mg/dL [facility]: [address] [facility] Normal Blood Urea Nitrogen 10 mg/dL 7-18 mg /dL [facility]: 0 [facility] High Creatinine for GFR 1.87 mg/dL 0.55-1 .30 mg/dL [facility]: 0 [facility] Low Glomerular Filtration Rate 32.3 >6 0 [facility]: 0 [facility] Normal Sodium Level 140 mEq/L 136-145 mEq/L [facility]: [address] [facility] Normal Potassium Serum 4.2 mEq/L 3.5-5.1 mE q/L [facility]: [address] [facility] Normal Chloride Level 106 mEq/L 98-107 mEq/ L [facility]: [address] [facility] Normal Carbon Dioxide Level 28 mEq/L 21-32 mEq/L [facility]: [address] [facility] Low Anion Gap 6 mEq/L 8-16 mEq/L [facility]: [address] [facility] Low Calcium Level 8.4 mg/dL 8.5-10.1 mg/ dL [facility]: [address] [facility] 02/29/2020 Magnesium, Serum or Plasma Normal Magnesium Level 2.2 mg/dL 1.8-2.4 mg/dL [facility]: [address] [facility] 02/29/2020 Gas Panel, Arterial Blood Low ABG pH (Ar terial) 7.346 units 7.350-7.450 units [facility]: [address] [facility] High ABG Partial Pressure CO2 51.7 mmHg 3 5.0-45.0 mmHg [facility]: 0 [facility] Low ABG Partial Pressure O2 59.0 mmHg 75 .0-100.0 mmHg [facility]: [address] [facility] High ABG Total CO2 29.2 mEq/L 22.0-29.0 m Eq/L [facility]: [address] [facility] High Abg Hco3 27.6 mEq/L 22.0-26.0 mEq/L [facility]: [address] [facility] Normal ABG Base Excess 1.2 -2.0-2.0 [facility]: [address] [facility] Normal ABG Standard HCO3 25.3 mEq/L 22.0-26 .0 mEq/L [facility]: [address] [facility] Low ABG O2 Saturation 90.2 % 95.0-99.0 % [facility]: [address] [place] [address] 02/29/2020 Gas Panel, Arterial Blood Low ABG pH (Ar terial) 7.327 units 7.350-7.450 units [facility]: [address] [facility] High ABG Partial Pressure CO2 55.0 mmHg 3 5.0-45.0 mmHg [facility]: 0 [facility] Normal ABG Partial Pressure O2 76.0 mmHg 75 .0-100.0 mmHg [facility]: [address] [place] [address] High ABG Total CO2 29.8 mEq/L 22.0-29.0 m Eq/L [facility]: [address] [place] [address] High Abg Hco3 28.2 mEq/L 22.0-26.0 mEq/L [facility]: [address] [place] [address] Normal ABG Base Excess 1.2 -2.0-2.0 [facility]: [address] [place] [address] Normal ABG Standard HCO3 25.5 mEq/L 22.0-26 .0 mEq/L [facility]: 0 [facility] Normal ABG O2 Saturation 95.0 % 95.0-99.0 % [facility]: [address] [place] [address] 02/28/2020 CBC W/ Auto Diff Normal White Blood Count 6.0 10 4.0-10.0 10 [facility]: [address] [place] [address] Normal Red Blood Count 4.71 10 4.00-5.40 10 [facility]: 0 [facility] Normal Hemoglobin 13.8 g/dL 12.0-15.5 g/dL [facility]: [address] [place] [address] Normal Hematocrit 44.9 % 36.0-47.0 % [facility]: [address] [place] [address] Normal Mean Corpuscular Volume 95.3 fL 80.0 -96.0 fL [facility]: [address] [place] [address] Normal Mean Corpuscular Hemoglobin 29.3 pg 27.0-33.0 pg [facility]: [address] [facility] Low Mean Corpuscular HGB Conc 30.7 g/dL 32.0-36.5 g/dL [facility]: [address] [facility] Normal Red Cell Distribution Width 14.3 % 1 1.5-14.5 % [facility]: [address] [place] [address] Low Platelet Count, Automated 148 10 150 -450 10 [facility]: [address] [facility] High Neutrophils % 67.9 % 36.0-66.0 % [facility]: [address] [facility] Low Lymph % 17.1 % 24.0-44.0 % Final [facility]: [address] [facility] High [place] % 6.0 % 0.0-5.0 % Final [facility]: 0 [facility] High Eos % 3.8 % 0.0-3.0 % [facility]: 0 [facility] High Baso % 1.2 % 0.0-1.0 % Final [facility]: [address] [facility] High Immature Granulocyte % 4.0 % 0-3.0 % [facility]: 0 [facility] Normal Nucleated Red Blood Cell % 0.0 % 0- 0 % [facility]: [address] [facility] Normal Neutrophils # 4.1 10 1.5-8.5 10 [facility]: [address] [facility] Low Lymph # 1.0 10 1.5-5.0 10 [facility]: [address] [facility] Normal [place] # 0.4 10 0.0-0.8 10 [facility]: 0 [facility] Normal Eos # 0.2 10 0.0-0.[address] [facility]: [address] [facility] Normal Baso # 0.1 10 0.0-0.2 10 [facility]: [address] [place] [address] 02/28/2020 Istat Chem8+ Panel Normal Istat HCT 46.0 % 38. 0-51.0 % [facility]: [address] [facility] Normal Istat Glucose 94 mg/dL 70-105 mg/dL [facility]: [address] [facility] Normal Istat Sodium 138 mEq/L 136-145 mEq/L [facility]: [address] [facility] Panic High Istat Potassium 6.9 mEq/L 3.5-5. 1 mEq/L [facility]: [address] [facility] Low Istat Ca++ 4.4 mg/dL 4.5-5.3 mg/dL [facility]: [address] [facility] Normal Istat Chloride 100 mEq/L 98-109 mEq/ L [facility]: [address] [facility] High Istat CO2 32.0 mm/L 23.0-27.0 mm/L [facility]: [address] [facility] Normal Istat BUN 12 mg/dL 8-26 mg/dL [facility]: [address] [facility] High Istat Creatinine 2.3 mg/dL 0.6-1.3 m g/dL [facility]: [address] [facility] 02/28/2020 Ctni Istat Normal Istat Troponin 0.01 NG/m L 0.00-0.08 NG/mL [facility]: [address] [facility] 02/28/2020 SARS CoV 2 RNA (COVID-19), QL, efficiency miner-PCR, Respirat ory Specimen Normal Sars Covid-19 Amplification negative negative [facility]: [address] [facility] 02/28/2020 Hepatic Function Panel, Serum Normal AST/SG OT 18 U/L 7-37 U/L [facility]: [address] [facility] Low ALT/SGPT 11 U/L 12-78 U/L [facility]: [address] [facility] Normal Alkaline Phosphatase 98 U/L 45-117 U /L [facility]: [address] [facility] Normal Bilirubin,total 0.3 mg/dL 0.2-1.0 mg /dL [facility]: [address] [facility] Normal Bilirubin,direct < 0.1 mg/dL 0.0-0.2 mg/dL [facility]: [address] [facility] Normal Total Protein 7.8 gm/dL 6.4-8.2 gm/d L [facility]: [address] [facility] Normal Albumin 4.0 gm/dL 3.2-5.2 gm/dL [facility]: [address] [facility] Low Albumin/globulin Ratio 1.1 1.2-2. 2 [facility]: 0 [facility] 02/28/2020 BMP, Serum or Plasma High Glucose, Fastin g 108 mg/dL 70-100 mg/dL [facility]: [address] [facility] Normal Blood Urea Nitrogen 11 mg/dL 7-18 mg /dL [facility]: [address] [facility] High Creatinine for GFR 2.30 mg/dL 0.55-1 .30 mg/dL [facility]: 0 [facility] Low Glomerular Filtration Rate 25.4 >6 0 [facility]: [address] [facility] Normal Sodium Level 137 mEq/L 136-145 mEq/L [facility]: [address] [facility] Normal Potassium Serum 4.4 mEq/L 3.5-5.1 mE q/L [facility]: [address] [facility] Normal Chloride Level 103 mEq/L 98-107 mEq/ L [facility]: [address] [facility] Normal Carbon Dioxide Level 31 mEq/L 21-32 mEq/L [facility]: [address] [facility] Low Anion Gap 3 mEq/L 8-16 mEq/L [facility]: [address] [facility] Normal Calcium Level 9.6 mg/dL 8.5-10.1 mg/ dL [facility]: [address] [facility] 02/28/2020 TSH, Serum or Plasma High Thyroid Stimulating Hormone 190.000 uIU/mL 0.358-3.740 uIU/mL [facility] nter: [address] [place] [address] 02/28/2020 beta-HCG, Qualitative, Serum or Plasma Normal HCG, Serum Qualitative negative negative [facility]: [address] [place] [address] 02/28/2020 Istat ABG Normal Istat pH 7.359 units 7.350-7. 450 units [facility]: [address] [place] [address] High Istat pCO2 51.0 mmHg 35.0-45.0 mmHg [facility]: [address] [place] [address] CRITICAL LOW Istat pO2 46.0 mmHg 80-105 mmH g [facility]: [address] [place] [address] High Istat TCO2 30.0 mmol/L 23.0-27.0 mmo l/L [facility]: [address] [place] [address] High Istat HCO3 28.7 mmol/L 22.0-26.0 mmo l/L [facility]: 0 [facility] Normal Istat Base Excess 3.0 mmol/L -2.0-3. 0 mmol/L [facility]: [address] [place] [address] Low Istat So2 79 % 95-98 % [facility]: 0 [facility] 02/28/2020 CK (Creatine Kinase) Mb, Quantitative, Blood Hi gh CPK Creatine Phosphokinase 277 U/L 26-192 U/L [facility]: [address] [facility] 02/28/2020 Uric Acid, Serum or Plasma High Uric Acid 8.3 mg/dL 2.6-6.0 mg/dL [facility]: [address] [facility] 02/28/2020 Magnesium, Serum or Plasma Normal Magnesium Level 2.1 mg/dL 1.8-2.4 mg/dL [facility]: [address] [facility] 02/28/2020 Osmolality, Serum Normal Osmolality Serum 292 mOsm/kg 275-295 mOsm/kg [facility]: [address] [facility] 02/28/2020 T4, Free, Serum Low Free T4 0.19 NG/dL 0.76 -1.46 NG/dL [facility]: [address] [facility] 02/28/2020 Triiodothyronine Free, QN, Serum or Plasma Low Free T3 < 0.5 pg/mL 2.2-4.0 pg/mL [facility] nter: [address] [facility] 02/28/2020 D-dimer, Quant, Plasma High D-dimer Quant 1194.11 NG/mL <500 NG/mL [facility]: [address] [facility] 02/28/2020 Procalcitonin, Serum Normal Procalcitonin <0.0 5 [facility]: [address] [facility] 02/28/2020 Urinalysis, Dipstick High Appearance, Urine cloudy clear [facility]: [address] [facility] Normal Color, Urine yellow yellow [facility]: [address] [facility] Normal pH,urine 7.0 units 5.0-9.0 units [facility]: [address] [facility] Normal Specific [place] Urine Auto 1.016 1 .002-1.035 [facility]: [address] [facility] Normal Protein, Urine Auto negative mg/dL n egative mg/dL [facility]: [address] [facility] Normal Glucose, Urine (UA) Auto negative mg /dL negative mg/dL [facility]: [address] [facility] Normal Ketone, Urine Auto negative mg/dL ne gative mg/dL [facility]: [address] [facility] Normal Urobilinogen, Urine Auto 0.2 mg/dL 0 .0-2.0 mg/dL [facility]: [address] [facility] Normal Bilirubin, Urine Auto negative negat doron [facility]: [address] [facility] Normal Nitrite, Urine Auto positive negativ e [facility]: [facility] [facility] [place] High Leukocyte Esterase, Urine Auto 1+ negative [facility]: [address] [facility] [place] Normal Blood, Urine Blood negative negative [facility]: [address] [facility] [place] High WBC, Urine Auto 13 /hpf 0-3 /hpf [facility]: [address] [facility] [place] Normal RBC, Urine Auto 1 /hpf 0-3 /hpf [facility]: [address] [facility] [place] High Bacteria, Urine Auto 3+ negative [facility]: [address] [facility] [place] Normal Squamous Epithelial Cell Ur AU 5 /hp f 0-6 /hpf [facility]: [address] [facility] [place] Normal Transitional Epithelial Auto <1 /hpf none /hpf [facility]: [address] [facility] [place] Normal Mucus, Urine small negative [facility]: [address] [facility] [place] Normal Hyaline Cast, Urine Auto 0 /lpf 0-1 /lpf [facility]: [address] [facility] [place] 02/28/2020 Osmolality, Urine Normal Osmolality Urine 523 mOsm/kg 500-800 mOsm/kg [facility]: [address] [facility] [place] 02/28/2020 Creatinine, Urine Normal Creatinine,random Urine 165.0 mg/dL [facility]: [address] [facility] [place] 02/28/2020 Sodium, Urine Normal Sodium,random Urine 61 mE q/L [facility]: [address] [facility] [place] 02/28/2020 Potassium, Urine Normal Potassium Random Ur ine 96.0 mEq/L [facility]: [address] [facility] [place] Past Encounters 11/21/2020 Hypothyroidism Marlee Gaspar MD: [address] [place] [phone], Ph. 09/07/2020 Body Mass Index 40+ - Severely Obese; Nicotine Dependence with Current Use; Abscess of Skin And/or Subcutaneous Tissue Marlee Gaspar MD: [address] [place] [phone], Ph. 09/04/2020 Covid-19 Marlee Gaspar MD: [address] [place] [phone], Ph. 07/17/2020 Mixed Anxiety and Depressive Disorder; Sarcoidosis; Hypothyroidism Karl Lott MD: [address] [place] [phone], Ph. 06/04/2020 Mixed Anxiety and Depressive Disorder; Hypothyroidism Karl Lott MD: [address] [place] [phone], Ph. 04/27/2020 Severe Recurrent Major Depression without Psychotic Features; Hypothyroidism; Sarcoidosis; Nicotine Dependence with Current Use [facility] [place] [facility]: [address] [place] [phone], Ph. 02/28/2020 Dyspnea; Fall Re [place] [facility]: [address] [place] [phone], Ph. Social History Tobacco Smoking Status Light [...] 42.9 kg/m2 105/73 mm[Hg] 06/04/2020 01:40PM ESTABLISHED [id number] Height Weight BMI Blood Pressure 63 in [...]
--- OUTSIDE RECORDS SUMMARY | 2021-01-20 15:52 | CCD | Continuity of Care Document ---
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 Name Role Phone Arcadio, Manjeet Unavailable Karl Lott Unavailable [facility] Unavailable Unavailable Unavailable Unavailable Marylin Dent Unavailable Angela Herman Unavailable Unavailable Natali Taylor Unavailable Problems Name Dates Details Displaced oblique f racture of shaft of left tibia, subsequent encounter for closed fracture with routine healing (S82.232D) 09-Nov-2020 Status: Active History of falling (Z91.81) 09-Nov-2020 Status: Active Fall from bed, subs equent encounter (W06.XXXD) 09-Nov-2020 Status: Active Nicotine dependence , cigarettes, uncomplicated (F17.210) 09-Nov-2020 Status: Active Displaced fracture of medial malleolus of left tibia, subsequent encounter for closed fracture with routine healing (S82.52XD) 09-Nov-2020 Status: Active Displaced oblique f racture of shaft of left fibula, subsequent encounter for closed fracture with routine healing (S82.432D) 09-Nov-2020 Status: Active Medications Name Dates Details Aspirin Adult Low Dose 81 MG Arcadio, Manjeet Active BuPROPion HCl ER (XL) 450 MG Arcadio, Manjeet* Start : 09-Nov-2020 Active Bacitracin 500 UNIT/GM Apply to left thigh incision daily Arcadio, Manjeet* Start : 09-Nov-2020 Active Cephalexin 500 MG Arcadio, Manjeet* Start : 09-Nov-2020 Active traZODone HCl 50 MG Arcadio, Manjeet* Start : 09-Nov-2020 Active Ibuprofen 600 MG 600mg every 6 hours as needed for pain higher than 4/10Not to exceed 2400mg graham y Arcadio, Manjeet* Start : 09-Nov-2020 Active Acetaminophen 325 MG 1-2 tablets every 4 hours as needed for pain higher than 4/10Not to exceed 3000m g daily Arcadio, Manjeet* Start : 09-Nov-2020 Active Levothyroxine Sodium 175 MCG Arcadio, Manjeet* Start : 09-Nov-2020 Active Methadone Arcadio, Manjeet* Start : 09-Nov-2020 Active Allergies and Adverse Reactions Name Dates Details No Known Drug Allergies (Allergy) Onset : 09-Nov-2020 Status: Active Results Date Description Value Details No Known Results Plan of Care Name Dates Details Instructions Diet:Regular Diet Ins truction Type: Nutrition education Payers * [facility]
--- OUTSIDE RECORDS SUMMARY | 2021-01-20 15:52 | CCD ---
Author Organization Unknown Address [address] [place] [address] Phone [phone] Care Team Providers Care [employer] Driver Name Role Phone LottKarl Unavailable Unavailable Allergies [...] 4 HOURS NEEDED FOR SHORTNESS OF BREATH Completed 12/12/2020 aspirin 81 mg tablet,delayed release 81 mg by oral route. Completed 11/08/2020 12/09/2020 bacitracin 500 unit/gram topical ointmen t apply to left upper leg incision Completed 2020 benzonatate 100 mg capsule TAKE TWO CAPSULES BY MOUTH THREE TIMES DAILY FOR COUGH Completed 09/07/2020 benzonatate 200 mg capsule Completed 11/12 bupropion HCl XL 150 mg 24 hr tablet, ex tended release Take 150 mg by oral route. Completed 11/08/2020 12/09/2020 buspirone 10 mg tablet TAKE ONE TABLET BY MOUTH TWICE DAILY Completed buspirone 5 mg tablet Completed 11/12/2020 cephalexin 500 mg capsule Completed 2020 cetirizine 10 mg tablet TAKE ONE TABLET BY MOUTH ONCE DAILY FOR FOR ALLERGY SYMPTOMS Completed 06/04/2020 cholecalciferol (vitamin D3) 25 mcg (1,0 00 unit) tablet Take 2000 units by oral route. Completed 12/13/19 docusate sodium 100 mg capsule Take 100 mg by oral route. Completed 12/12/2020 doxycycline hyclate 100 mg tablet TAKE ONE [...] TAKE TWO CAPSULES BY MOUTH THREE TIMES A DAY Completed 12/12/2020 gabapentin 600 mg tablet TAKE ONE TABLET BY MOUTH THREE TIMES DAILY Completed 04/27/2020 gabapentin 800 mg tablet TAKE ONE TABLET BY MOUTH THREE TIMES A DAY FOR ANXIETY Active Not available guaifenesin 200 mg tablet Completed 2020 hydroxyzine HCl 50 mg tablet 50 mg by oral route. Completed 11/08/2020 12/09/2020 ibuprofen 800 mg tablet Completed 11/13/19 levothyroxine [...] A DAY Completed quetiapine 50 mg tablet One po qHS Active Not available quetiapine ER 150 mg tablet,extended rel ease 24 hr TAKE ONE TABLET BY MOUTH AT BEDTIME Completed quetiapine ER 200 mg tablet,extended rel ease 24 hr TAKE ONE TABLET BY MOUTH AT BEDTIME Active Not available Stimulant Laxative Plus 8.6 mg-50 mg tab let TAKE ONE TABLET BY MOUTH TWICE DAILY Completed Sudogest 30 mg tablet TAKE ONE TABLET BY MOUTH THREE TIMES DAILY FOR COLD SYMPTOMS Completed 07/17/2020 sulfamethoxazole 800 mg-trimethoprim 160 mg tablet TAKE ONE TABLET BY MOUTH EVERY TWELVE HOURS Completed 07/17/2020 trazodone 100 mg tablet Take 1 tablet every day by oral route. Completed 12/12/2020 trazodone 150 mg tablet Completed 11/13/19 trazodone 50 mg tablet 50 mg by oral route. Completed 11/08/2020 12/09/2020 Wellbutrin XL 300 mg 24 hr tablet, exten ded release Take 300 mg by oral route. Active Not availabl e Problems Name Status Onset Date Source Hypothyroidism [...] Amp Normal Influenza a Amplification negative negative [facility] nter: [address] [facility] Normal Influenza B Amplification negative n egative [facility]: [address] [facility] Normal RSV Amplification negative negative [facility]: [address] [facility] Normal Sars Covid-[address] [facility]: [address] [facility] 07/17/2020 CBC W/ Auto Diff Normal White Blood Count 4.8 10 4.0-10.[address] [facility]: [address] [facility] Normal Red Blood Count 4.09 10 4.00-5.[address] [facility]: [address] [facility] Normal Hemoglobin 12.1 g/dL 12.0-15.5 g/dL [facility]: [address] [facility] Normal Hematocrit 37.1 % 36.0-47.0 % [facility]: [address] [facility] Normal Mean Corpuscular Volume 90.7 fL 80.0 -96.[address] [facility]: [address] [facility] Normal Mean Corpuscular Hemoglobin 29.6 pg 27.0-33.[address] [facility]: [address] [facility] Normal Mean Corpuscular HGB Conc 32.6 g/dL 32.0-36.5 g/dL [facility]: [address] [facility] Normal Red Cell Distribution Width 13.0 % 1 1.5-14.5 % [facility]: [address] [facility] Normal Platelet Count, Automated 185 10 150 -[address] [facility]: [address] [facility] Normal Neutrophils % 64.4 % 36.0-66.0 % [facility]: [address] [facility] Low Lymph % 21.7 % 24.0-44.0 % [facility]: [address] [facility] Normal [place] % 7.5 % 2.0-8.0 % [facility]: [address] [facility] High Eos % 5.0 % 0.0-3.0 % [facility]: [address] [facility] Normal Baso % 0.8 % 0.0-1.0 % [facility]: [address] [place] [address] Normal Immature Granulocyte % 0.6 % 0-3.0 % [facility]: [address] [place] [address] Normal Nucleated Red Blood Cell % 0.0 % 0- 0 % [facility]: [address] [place] [address] Normal Neutrophils # 3.1 10 1.5-8.5 10 [place] [facility]: [address] [place] [address] Low Lymph # 1.0 10 1.5-5.0 10 [facility]: [address] [place] [address] Normal [place] # 0.4 10 0.0-0.8 10 [facility]: [address] [place] [address] Normal Eos # 0.2 10 0.0-0.5 10 [facility]: 0 [facility] Normal Baso # 0.0 10 0.0-0.2 10 [facility]: [address] [place] [address] 07/17/2020 CMP, Serum or Plasma Blood venous High Glu cose, Fasting 108 mg/dL 70-100 mg/dL [facility] nter: [address] [place] [address] Blood venous Normal Blood Urea Nitrogen 11 mg/dL 7-18 mg/dL [facility]: [address] [place] [address] Blood venous Normal Creatinine for GFR 1.14 mg/dL 0.55-1.30 mg/dL [facility]: [address] [place] [address] Blood venous Low Glomerular Filtration Rate 56 .8 >60 [facility]: [address] [place] [address] Blood venous Normal Sodium Level 142 mEq/L 136-14 5 mEq/L [facility]: [address] [place] [address] Blood venous Normal Potassium Serum 4.5 mEq/L 3.5 -5.1 mEq/L [facility]: [address] [place] [address] Blood venous High Chloride Level 108 mEq/L 98-1 07 mEq/L [facility]: [address] [facility] Blood venous Normal Carbon Dioxide Level 27 mEq/L 21-32 mEq/L [facility]: [address] [facility] Blood venous Low Anion Gap 7 mEq/L 8-16 mEq/L [facility]: [address] [facility] Blood venous Normal Calcium Level 8.8 mg/dL 8.5-1 0.1 mg/dL Final [facility]: [address] [facility] Blood venous Normal AST/SGOT 19 U/L 7-37 U/L [facility]: [address] [facility] Blood venous Normal ALT/SGPT 22 U/L 12-78 U/L [facility]: [address] [facility] Blood venous High Alkaline Phosphatase 136 U/L 45-117 U/L [facility]: [address] [facility] Blood venous Normal Bilirubin,total 0.3 mg/dL 0.2 -1.0 mg/dL [facility]: [address] [facility] Blood venous Normal Total Protein 6.7 gm/dL 6.4-8 .2 gm/dL [facility]: 0 [facility] Blood venous Normal Albumin 3.5 gm/dL 3.2-5.2 gm/ dL [facility]: [address] [place] [address] Blood venous Low Albumin/globulin Ratio 1.1 1.2-2.2 [facility]: 0 [facility] 07/17/2020 Lipid Panel, Blood Blood venous Normal Trigl ycerides Level 133 mg/dL <150 mg/dL [facility] nter: [address] [facility] Blood venous Normal Cholesterol Level 183 mg/dL < 200 mg/dL [facility]: [address] [facility] Blood venous Low HDL Cholesterol 39 mg/dL >40 mg/dL [facility]: [address] [facility] Blood venous High LDL Cholesterol 117 mg/dL <10 0 mg/dL [facility]: [address] [place] [address] Blood venous Normal Non-hdl-c 144 mg/dL Fi [facility]: [address] [place] [address] Blood venous Normal Cholesterol Risk Ratio 4.692 <5 [facility]: [address] [place] [address] 07/17/2020 TSH + Free T4, Serum Blood venous High Thyroid Stimulating Hormone 6.030 uIU/mL 0.358-3.740 uIU/mL [facility]: [address] [place] [address] Blood venous Low Free T4 0.55 NG/dL 0.76-1.46 NG/dL [facility]: [address] [place] [address] 07/05/2020 CBC W/ Auto Diff Normal White Blood Count 4.0 10 4.0-10.[address] [facility]: [address] [place] [address] Low Red Blood Count 3.69 10 4.00-5.[address] [facility]: [address] [place] [address] Low Hemoglobin 11.1 g/dL 12.0-15.5 g/dL [facility]: [address] [place] [address] Low Hematocrit 34.5 % 36.0-47.0 % [facility]: [address] [place] [address] Normal Mean Corpuscular Volume 93.5 fL 80.0 -96.[address] [facility]: [address] [place] [address] Normal Mean Corpuscular Hemoglobin 30.1 pg 27.0-33.[address] [facility]: [address] [place] [address] Normal Mean Corpuscular HGB Conc 32.2 g/dL 32.0-36.5 g/dL [facility]: [address] [place] [address] Normal Red Cell Distribution Width 12.8 % 1 1.5-14.5 % [facility]: [address] [place] [address] Low Platelet Count, Automated 143 10 150 -[address] [facility]: [address] [place] [address] Normal Neutrophils % 59.8 % 36.0-66.0 % Fin [facility]: [address] [place], [place] [address] Low Lymph % 23.5 % 24.0-44.0 % [facility]: [address] [facility] High [place] % 10.6 % 2.0-8.0 % Final [facility]: [address] [facility] High Eos % 5.3 % 0.0-3.0 % [facility]: [address] [facility] Normal Baso % 0.5 % 0.0-1.0 % [facility]: [address] [facility] Normal Immature Granulocyte % 0.3 % 0-3.0 % [facility]: [address] [facility] Normal Nucleated Red Blood Cell % 0.0 % 0- 0 % [facility]: [address] [facility] Normal Neutrophils # 2.4 10 1.5-8.5 10 [place] [facility]: 0 [facility] Low Lymph # 0.9 10 1.5-5.0 10 [facility]: [address] [facility] Normal [place] # 0.4 10 0.0-0.8 10 [facility]: [address] [facility] Normal Eos # 0.2 10 0.0-0.5 10 [facility]: [address] [facility] Normal Baso # 0.0 10 0.0-0.2 10 [facility]: [address] [facility] 07/05/2020 CMP, Serum or Plasma High Glucose, Fastin g 106 mg/dL 70-100 mg/dL [facility]: [address] [facility] Normal Blood Urea Nitrogen 12 mg/dL 7-18 mg /dL [facility]: 0 [facility] Normal Creatinine for GFR 1.20 mg/dL 0.55-1 .30 mg/dL [facility]: 0 [facility] Low Glomerular Filtration Rate 53.5 >[address] [facility]: 0 [facility] Normal Sodium Level 141 mEq/L 136-145 mEq/L [facility]: [address] [facility] Normal Potassium Serum 4.5 mEq/L 3.5-5.1 mE q/L [facility]: [address] [facility] Normal Chloride Level 107 mEq/L 98-107 mEq/ L [facility]: [address] [facility] Normal Carbon Dioxide Level 29 mEq/L 21-32 mEq/L [facility]: [address] [facility] Low Anion Gap 5 mEq/L 8-16 mEq/L [facility]: [address] [facility] Normal Calcium Level 8.9 mg/dL 8.5-10.1 mg/ dL [facility]: [address] [facility] Normal AST/SGOT 31 U/L 7-37 U/L [facility]: [address] [facility] Normal ALT/SGPT 42 U/L 12-78 U/L [facility]: [address] [facility] High Alkaline Phosphatase 129 U/L 45-117 U/L [facility]: [address] [facility] Normal Bilirubin,total 0.3 mg/dL 0.2-1.0 mg /dL [facility]: [address] [facility] Normal Total Protein 6.6 gm/dL 6.4-8.2 gm/d L [facility]: [address] [facility] Normal Albumin 3.5 gm/dL 3.2-5.2 gm/dL [place] [facility]: [address] [facility] Low Albumin/globulin Ratio 1.1 1.2-2. 2 [facility]: [address] [facility] 07/05/2020 Magnesium, Serum or Plasma Normal Magnesium Level 2.1 mg/dL 1.8-2.4 mg/dL [facility]: [address] [facility] 07/05/2020 C Reactive Protein, QN, Serum or Plasma High C Reactive Protein Quantitativ 1.85 mg/dL 0.00-0.30 mg/dL [facility]: [address] [facility] 07/05/2020 Procalcitonin, Serum Normal Procalcitonin 0.05 Final [facility]: [address] [facility] 06/26/2020 Lipid Panel, Blood High Triglycerides Lev el 200 mg/dL <150 mg/dL Final [facility]: [address] [facility] Normal Cholesterol Level 193 mg/dL <200 mg/ dL Final [facility]: [address] [facility] Low HDL Cholesterol 37 mg/dL >40 mg/dL F inal [facility]: [address] [facility] High LDL Cholesterol 116 mg/dL <100 mg/dL Final [facility]: [address] [facility] Normal Non-hdl-c 156 mg/dL Final [facility]: [address] [facility] High Cholesterol Risk Ratio 5.[address] <5 [facility]: [address] [facility] 06/24/2020 Influenza A/B RSV Covid Amp Normal Influenza a Amplification negative negative Final [facility] nter: [address] [facility] Normal Influenza B Amplification negative n egative Final [facility]: [address] [facility] Normal RSV Amplification negative negative Final [facility]: [address] [facility] Normal Sars Covid-19 Amplification negative negative Final [facility]: [address] [facility] 06/24/2020 Influenza A/B RSV Covid Amp Normal Influenza a Amplification negative negative Final [facility] nter: [address] [facility] Normal Influenza B Amplification negative n egative Final [facility]: [address] [facility] Normal RSV Amplification negative negative Final [facility]: [address] [facility] Normal Sars Covid-19 Amplification negative negative Final [facility]: [address] [facility] 05/21/2020 Cbc Normal White Blood Count 5.2 10 4.0-10. [address] [facility]: [address] [facility] Normal Red Blood Count 4.24 10 4.00-5.40 10 Final [facility]: [address] [facility] Normal Hemoglobin 12.7 g/dL 12.0-15.5 g/dL [facility]: [address] [facility] Normal Hematocrit 40.4 % 36.0-47.0 % [facility]: [address] [facility] Normal Mean Corpuscular Volume 95.3 fL 80.0 -96.[address] [facility]: [address] [facility] Normal Mean Corpuscular Hemoglobin 30.0 pg 27.0-33.[address] [facility]: [address] [facility] Low Mean Corpuscular HGB Conc 31.4 g/dL 32.0-36.5 g/dL [facility]: [address] [facility] High Red Cell Distribution Width 14.8 % 1 1.5-14.5 % [facility]: [address] [facility] Low Platelet Count, Automated 136 10 150 -[address] [facility]: [address] [facility] Normal Nucleated Red Blood Cell % 0.0 % 0- 0 % [facility]: [address] [facility] 05/21/2020 Drug Screen, Urine Normal Amphetamines Leve l Urine negative negative [facility]: [address] [facility] Normal Barbiturates Urine negative negative [facility]: [address] [facility] Normal Benzodiazepines Urine negative negat doron [facility]: [address] [facility] Normal Cannabinoids Urine negative negative [facility]: [address] [facility] Normal Cocaine Metabolite Urine negative ne gative [facility]: [address] [facility] High Methadone Urine positive negative Fi nal [facility]: [address] [facility] Normal Opiates Urine negative negative [place] [facility]: [address] [facility] Normal Phencyclidine Urine negative negativ e [facility]: [address] [facility] 05/21/2020 Hepatic Function Panel, Serum Normal AST/SG OT 19 U/L 7-37 U/L [facility]: [address] [facility] Normal ALT/SGPT 21 U/L 12-78 U/L [facility]: [address] [facility] High Alkaline Phosphatase 129 U/L 45-117 U/L [facility]: [address] [facility] Normal Bilirubin,total 0.3 mg/dL 0.2-1.0 mg /dL [facility]: [address] [facility] Normal Bilirubin,direct 0.1 mg/dL 0.0-0.2 m g/dL [facility]: [address] [facility] Normal Total Protein 7.6 gm/dL 6.4-8.2 gm/d L [facility]: [address] [facility] Normal Albumin 4.2 gm/dL 3.2-5.2 gm/dL [place] [facility]: [address] [facility] Normal Albumin/globulin Ratio 1.2 1.2-2. 2 [facility]: [address] [facility] 05/21/2020 BMP, Serum or Plasma Normal Glucose, Fastin g 92 mg/dL 70-100 mg/dL [facility]: [address] [facility] Normal Blood Urea Nitrogen 7 mg/dL 7-18 mg/ dL [facility]: 0 [facility] High Creatinine for GFR 1.53 mg/dL 0.55-1 .30 mg/dL [facility]: 0 [facility] Low Glomerular Filtration Rate 40.4 >[address] [facility]: [address] [facility] Normal Sodium Level 139 mEq/L 136-145 mEq/L [facility]: [address] [facility] Normal Potassium Serum 4.5 mEq/L 3.5-5.1 mE q/L [facility]: [address] [facility] Normal Chloride Level 105 mEq/L 98-107 mEq/ L [facility]: [address] [facility] Normal Carbon Dioxide Level 28 mEq/L 21-32 mEq/L [facility]: [address] [facility] Low Anion Gap 6 mEq/L 8-16 mEq/L [facility]: [address] [facility] Normal Calcium Level 9.1 mg/dL 8.5-10.1 mg/ dL [facility]: [address] [facility] 05/21/2020 Ethanol, Blood Normal Ethyl Alcohol (Ethano l) < 0.003 % 0.000- 0.010 % [facility]: [address] [facility] 05/21/2020 Salicylate, Quantitative, Serum Low Sali cylate Level 3.2 mg/dL 5.0-30.0 mg/dL [facility]: [address] [facility] 05/21/2020 Acetaminophen, Serum Low Acetaminophen L evel < 2.0 ug/mL 10.0- 30.0 ug/mL [facility]: [address] [facility] 05/21/2020 TSH, Serum or Plasma High Thyroid Stimulating Hormone 90.900 uIU/mL 0.358-3.740 uIU/mL [facility] nter: [address] [facility] 05/21/2020 beta-HCG, Qualitative, Serum or Plasma Normal HCG, Serum Qualitative negative negative [facility]: [address] [facility] 05/21/2020 Influenza A/B RSV Covid Amp Normal Influenza a Amplification negative negative [facility] nter: [address] [facility] Normal Influenza B Amplification negative n egative [facility]: [address] [facility] Normal RSV Amplification negative negative [facility] [address] [facility] Normal Sars Covid-[address] [facility]: [address] [facility] 03/05/2020 Cbc Normal White Blood Count 5.4 10 4.0-[address]. [address] [facility]: [address] [facility] Normal Red Blood Count 4.20 10 4.00-5.[address] [facility]: [address] [facility] Normal Hemoglobin 12.1 g/dL 12.0-15.5 g/dL [facility]: 0 [facility] Normal Hematocrit 39.0 % 36.0-47.0 % [facility]: 0 [facility] Normal Mean Corpuscular Volume 92.9 fL 80.0 -96.[address] [facility]: [address] [place] [address] Normal Mean Corpuscular Hemoglobin 28.8 pg 27.0-33.[address] [facility]: [address] [place] [address] Low Mean Corpuscular HGB Conc 31.0 g/dL 32.0-36.5 g/dL [facility]: 0 [facility] Normal Red Cell Distribution Width 14.2 % 1 1.5-14.5 % [facility]: [address] [place] [address] Low Platelet Count, Automated 97 10 150 -[address] [facility]: [address] [place] [address] High Nucleated Red Blood Cell % 0.4 % 0- 0 % [facility]: 0 [facility] 03/05/2020 Reticulated Platelets, Percentage, Automated Count, Blood Normal Immature Platelet Fraction % 1.3 % 0.0-9.59 % [facility]: 0 [facility] 03/05/2020 BMP, Serum or Plasma Normal Glucose, Fastin g 97 mg/dL 70-100 mg/dL [facility]: [address] [facility] Normal Blood Urea Nitrogen 10 mg/dL 7-18 mg /dL [facility]: 0 [facility] High Creatinine for GFR 1.57 mg/dL 0.55-1 .30 mg/dL [facility]: 0 [facility] Low Glomerular Filtration Rate 39.5 >[address] [facility]: 0 [facility] Normal Sodium Level 143 mEq/L 136-145 mEq/L [facility]: [address] [place] [address] Normal Potassium Serum 3.5 mEq/L 3.5-5.1 mE q/L [facility]: [address] [place] [address] High Chloride Level 110 mEq/L 98-107 mEq/ L [facility]: [address] [facility] Normal Carbon Dioxide Level 26 mEq/L 21-32 mEq/L [facility]: [address] [facility] Low Anion Gap 7 mEq/L 8-16 mEq/L [facility]: [address] [facility] Normal Calcium Level 8.5 mg/dL 8.5-10.1 mg/ dL [facility]: [address] [facility] 03/05/2020 Magnesium, Serum or Plasma Normal Magnesium Level 2.0 mg/dL 1.8-2.4 mg/dL [facility]: [address] [facility] 03/04/2020 Cbc Normal White Blood Count 4.4 10 4.0-10. [address] [facility]: 0 [facility] Normal Red Blood Count 4.12 10 4.00-5.[address] [facility]: 0 [facility] Low Hemoglobin 11.9 g/dL 12.0-15.5 g/dL [facility]: [address] [facility] Normal Hematocrit 39.4 % 36.0-47.0 % [facility]: [address] [place] [address] Normal Mean Corpuscular Volume 95.6 fL 80.0 -96.[address] [facility]: 0 [facility] Normal Mean Corpuscular Hemoglobin 28.9 pg 27.0-33.[address] [facility]: 0 [facility] Low Mean Corpuscular HGB Conc 30.2 g/dL 32.0-36.5 g/dL [facility]: 0 [facility] Normal Red Cell Distribution Width 14.2 % 1 1.5-14.5 % [facility]: 0 [facility] Low Platelet Count, Automated 101 10 150 -[address] [facility]: 0 [facility] Normal Nucleated Red Blood Cell % 0.0 % 0- 0 % [facility]: [address] [facility] 03/04/2020 BMP, Serum or Plasma Normal Glucose, Fastin g 86 mg/dL 70-100 mg/dL [facility]: 83 0 [facility] Normal Blood Urea Nitrogen 8 mg/dL 7-18 mg/ dL [facility]: 0 [facility] High Creatinine for GFR 1.57 mg/dL 0.55-1 .30 mg/dL [facility]: [address] [facility] Low Glomerular Filtration Rate 39.5 >[address] [facility]: [address] [facility] Normal Sodium Level 145 mEq/L 136-145 mEq/L [facility]: 0 [facility] Normal Potassium Serum 3.8 mEq/L 3.5-5.1 mE q/L [facility]: 0 [facility] High Chloride Level 111 mEq/L 98-107 mEq/ L [facility]: [address] [facility] Normal Carbon Dioxide Level 30 mEq/L 21-32 mEq/L [facility]: [address] [facility] Low Anion Gap 4 mEq/L 8-16 mEq/L [facility]: 0 [facility] Low Calcium Level 8.2 mg/dL 8.5-10.1 mg/ dL [facility]: 0 [facility] 03/04/2020 Magnesium, Serum or Plasma Normal Magnesium Level 2.1 mg/dL 1.8-2.4 mg/dL [facility]: 83 0 [facility] 03/03/2020 Cbc Normal White Blood Count 4.7 10 4.0-10. [address] [facility]: 0 [facility] Low Red Blood Count 3.99 10 4.00-5.[address] [facility]: 0 [facility] Low Hemoglobin 11.6 g/dL 12.0-15.5 g/dL [facility]: 0 [facility] Normal Hematocrit 38.3 % 36.0-47.0 % [facility]: [address] [facility] Normal Mean Corpuscular Volume 96.0 fL 80.0 -96.[address] [facility]: [address] [facility] Normal Mean Corpuscular Hemoglobin 29.1 pg 27.0-33.[address] [facility]: [address] [facility] Low Mean Corpuscular HGB Conc 30.3 g/dL 32.0-36.5 g/dL [facility]: [address] [facility] Normal Red Cell Distribution Width 14.3 % 1 1.5-14.5 % [facility]: [address] [place] [address] Low Platelet Count, Automated 111 10 150 -[address] [facility]: 0 [facility] Normal Nucleated Red Blood Cell % 0.0 % 0- 0 % [facility]: [address] [place] [address] 03/03/2020 BMP, Serum or Plasma Normal Glucose, Fastin g 70 mg/dL 70-100 mg/dL [facility]: 83 0 [facility] Normal Blood Urea Nitrogen 8 mg/dL 7-18 mg/ dL [facility]: [address] [place] [address] High Creatinine for GFR 1.48 mg/dL 0.55-1 .30 mg/dL [facility]: [address] [place] [address] Low Glomerular Filtration Rate 42.2 >[address] [facility]: [address] [facility] Normal Sodium Level 144 mEq/L 136-145 mEq/L [facility]: 0 [facility] Normal Potassium Serum 3.6 mEq/L 3.5-5.1 mE q/L [facility]: 0 [facility] High Chloride Level 111 mEq/L 98-107 mEq/ L [facility]: 0 [facility] Normal Carbon Dioxide Level 29 mEq/L 21-32 mEq/L [facility]: 0 [facility] Low Anion Gap 4 mEq/L 8-16 mEq/L [facility]: 0 [facility] Low Calcium Level 8.0 mg/dL 8.5-10.1 mg/ dL [facility]: 0 [facility] 03/03/2020 Magnesium, Serum or Plasma Normal Magnesium Level 2.1 mg/dL 1.8-2.4 mg/dL [facility]: 83 0 [facility] 03/03/2020 Thyroid Panel, Serum Normal T Uptake 30 % 30 -39 % [facility]: 0 [facility] Normal Thyroxine (T4) 5.2 ug/dL 4.5-12.0 ug /dL [facility]: [address] [place] [address] Normal Free Thyroxine Index 1.6 % 1.3-4.8 % [facility]: [address] [place] [address] High Thyroid Stimulating Hormone 16 4.000 uIU/mL 0.358-3.740 uIU/mL [facility]: [address] [place] [address] 03/03/2020 Vitamin D 1,25 Dihydroxy Normal Vit raymond D 1,25 Dihydroxy 40.6 pg/mL 19.9-79.3 pg/mL [facility] nter: [address] [facility] 03/02/2020 Cbc Normal White Blood Count 6.5 10 4.0-10. [address] [facility]: [address] [place] [address] Low Red Blood Count 3.65 10 4.00-5.[address] [facility]: [address] [place] [address] Low Hemoglobin 10.7 g/dL 12.0-15.5 g/dL [facility]: 0 [facility] Low Hematocrit 35.6 % 36.0-47.0 % [facility]: [address] [place] [address] High Mean Corpuscular Volume 97.5 fL 80.0 -96.[address] [facility]: 0 [facility] Normal Mean Corpuscular Hemoglobin 29.3 pg 27.0-33.[address] [facility]: [address] [place] [address] Low Mean Corpuscular HGB Conc 30.1 g/dL 32.0-36.5 g/dL [facility]: [address] [facility] Normal Red Cell Distribution Width 14.1 % 1 1.5-14.5 % [facility]: [address] [facility] Low Platelet Count, Automated 106 10 150 -[address] [facility]: [address] [facility] Normal Nucleated Red Blood Cell % 0.0 % 0- 0 % [facility]: [address] [facility] 03/02/2020 BMP, Serum or Plasma Low Glucose, Fastin g 63 mg/dL 70-100 mg/dL [facility]: 83 0 [facility] Normal Blood Urea Nitrogen 10 mg/dL 7-18 mg /dL [facility]: 0 [facility] High Creatinine for GFR 1.39 mg/dL 0.55-1 .30 mg/dL [facility]: [address] [facility] Low Glomerular Filtration Rate 45.4 >[address] [facility]: [address] [facility] High Sodium Level 146 mEq/L 136-145 mEq/L [facility]: [address] [facility] Normal Potassium Serum 3.8 mEq/L 3.5-5.1 mE q/L [facility]: [address] [facility] High Chloride Level 114 mEq/L 98-107 mEq/ L [facility]: [address] [facility] Normal Carbon Dioxide Level 27 mEq/L 21-32 mEq/L [facility]: [address] [facility] Low Anion Gap 5 mEq/L 8-16 mEq/L [facility]: [address] [facility] Low Calcium Level 7.6 mg/dL 8.5-10.1 mg/ dL [facility]: [address] [facility] 03/02/2020 Magnesium, Serum or Plasma Normal Magnesium Level 2.2 mg/dL 1.8-2.4 mg/dL [facility]: 83 0 [facility] 03/02/2020 Glucose, Fingerstick, Blood Normal Bedside Glucose 96 mg/dL 70- 105 mg/dL [facility]: 83 0 [facility] 03/02/2020 Thyroid Panel, Serum Normal T Uptake 30 % 30 -39 % [facility]: [address] [facility] Low Thyroxine (T4) 3.5 ug/dL 4.5-12.0 ug /dL [facility]: [address] [facility] Low Free Thyroxine Index 1.1 % 1.3-4.8 % [facility]: [address] [facility] High Thyroid Stimulating Hormone 27 3.000 uIU/mL 0.358-3.740 uIU/mL [facility]: [address] [facility] 03/01/2020 Gas Panel, Arterial Blood Low ABG pH (Ar terial) 7.328 units 7.350-7.[address] [facility]: 83 0 [facility] High ABG Partial Pressure CO2 45.2 mmHg 3 5.0-45.[address] [facility]: [address] [facility] Normal ABG Partial Pressure O2 91.2 mmHg 75 .0-100.[address] [facility]: [address] [facility] Normal ABG Total CO2 24.6 mEq/L 22.0-29.0 m Eq/L [facility]: [address] [facility] Normal Abg Hco3 23.2 mEq/L 22.0-26.0 mEq/L [facility]: [address] [facility] Low ABG Base Excess -2.8 -2.0-2.0 [place] [facility]: [address] [facility] Normal ABG Standard HCO3 22.1 mEq/L 22.0-26 .0 mEq/L [facility]: [address] [facility] Normal ABG O2 Saturation 96.9 % 95.0-99.0 % [facility]: [address] [facility] 03/01/2020 Gas Panel, Arterial Blood Low ABG pH (Ar terial) 7.306 units 7.350-7.[address] [facility]: 83 0 [facility] High ABG Partial Pressure CO2 51.5 mmHg 3 5.0-45.[address] [facility]: [address] [facility] Normal ABG Partial Pressure O2 80.4 mmHg 75 .0-100.[address] [facility]: [address] [facility] Normal ABG Total CO2 26.7 mEq/L 22.0-29.0 m Eq/L [facility]: [address] [facility] Normal Abg Hco3 25.1 mEq/L 22.0-26.0 mEq/L [facility]: [address] [facility] Normal ABG Base Excess -1.7 -2.0-2.0 [facility]: [address] [facility] Normal ABG Standard HCO3 23.0 mEq/L 22.0-26 .0 mEq/L [facility]: 0 [facility] Normal ABG O2 Saturation 95.4 % 95.0-99.0 % [facility]: 0 [facility] 03/01/2020 Gas Panel, Arterial Blood Low ABG pH (Ar terial) 7.327 units 7.350-7.[address] [facility]: 83 0 [facility] High ABG Partial Pressure CO2 52.4 mmHg 3 5.0-45.[address] [facility]: 0 [facility] Normal ABG Partial Pressure O2 87.0 mmHg 75 .0-100.[address] [facility]: [address] [facility] Normal ABG Total CO2 28.4 mEq/L 22.0-29.0 m Eq/L [facility]: [address] [facility] High Abg Hco3 26.8 mEq/L 22.0-26.0 mEq/L [facility]: [address] [facility] Normal ABG Base Excess 0.2 -2.0-2.0 [facility]: [address] [facility] Normal ABG Standard HCO3 24.6 mEq/L 22.0-26 .0 mEq/L [facility]: [address] [facility] Normal ABG O2 Saturation 96.6 % 95.0-99.0 % [facility]: 0 [facility] 03/01/2020 Angiotensin 1 Converting Enzym Normal Angiotensin 1 Converting Enzym 61 U/L 14-82 U/L [facility]: [address] [place] [address] 02/29/2020 Cbc Normal White Blood Count 8.8 10 4.0-10. [address] [facility]: [address] [facility] Normal Red Blood Count 4.24 10 4.00-5.[address] [facility]: [address] [facility] Normal Hemoglobin 12.0 g/dL 12.0-15.5 g/dL [facility]: [address] [place] [address] Normal Hematocrit 40.1 % 36.0-47.0 % [facility]: [address] [place] [address] Normal Mean Corpuscular Volume 94.6 fL 80.0 -96.[address] [facility]: 0 [facility] Normal Mean Corpuscular Hemoglobin 28.3 pg 27.0-33.[address] [facility]: [address] [place] [address] Low Mean Corpuscular HGB Conc 29.9 g/dL 32.0-36.5 g/dL [facility]: [address] [place] [address] Normal Red Cell Distribution Width 14.0 % 1 1.5-14.5 % [facility]: 0 [facility] Normal Platelet Count, Automated 151 10 150 -[address] [facility]: 0 [facility] Normal Nucleated Red Blood Cell % 0.0 % 0- 0 % [facility]: [address] [place] [address] 02/29/2020 BMP, Serum or Plasma High Glucose, Fastin g 131 mg/dL 70-100 mg/dL [facility]: 83 0 [facility] Normal Blood Urea Nitrogen 10 mg/dL 7-18 mg /dL [facility]: [address] [place] [address] High Creatinine for GFR 1.87 mg/dL 0.55-1 .30 mg/dL [facility]: [address] [facility] Low Glomerular Filtration Rate 32.[address] >[address] [facility]: [address] [facility] Normal Sodium Level 140 mEq/L 136-145 mEq/L [facility]: [address] [facility] Normal Potassium Serum 4.2 mEq/L 3.5-5.1 mE q/L [facility]: [address] [facility] Normal Chloride Level 106 mEq/L 98-107 mEq/ L [facility]: [address] [facility] Normal Carbon Dioxide Level 28 mEq/L 21-32 mEq/L [facility]: 0 [facility] Low Anion Gap 6 mEq/L 8-16 mEq/L [facility]: 0 [facility] Low Calcium Level 8.4 mg/dL 8.5-10.1 mg/ dL [facility]: 0 [facility] 02/29/2020 Magnesium, Serum or Plasma Normal Magnesium Level 2.2 mg/dL 1.8-2.4 mg/dL [facility]: 83 0 [facility] 02/29/2020 Gas Panel, Arterial Blood Low ABG pH (Ar terial) 7.346 units 7.350-7.[address] [facility]: 83 0 [facility] High ABG Partial Pressure CO2 51.7 mmHg 3 5.0-45.[address] [facility]: 0 [facility] Low ABG Partial Pressure O2 59.0 mmHg 75 .0-100.[address] [facility]: [address] [facility] High ABG Total CO2 29.2 mEq/L 22.0-29.0 m Eq/L [facility]: 0 [facility] High Abg Hco3 27.6 mEq/L 22.0-26.0 mEq/L [facility]: 0 [facility] Normal ABG Base Excess 1.2 -2.0-2.0 [place] [facility]: [address] [facility] Normal ABG Standard HCO3 25.3 mEq/L 22.0-26 .0 mEq/L [facility]: [address] [facility] Low ABG O2 Saturation 90.2 % 95.0-99.0 % [facility]: [address] [facility] 02/29/2020 Gas Panel, Arterial Blood Low ABG pH (Ar terial) 7.327 units 7.350-7.[address] [facility]: 83 0 [facility] High ABG Partial Pressure CO2 55.0 mmHg 3 5.0-45.[address] [facility]: 0 [facility] Normal ABG Partial Pressure O2 76.0 mmHg 75 .0-100.[address] [facility]: [address] [place] [address] High ABG Total CO2 29.8 mEq/L 22.0-29.0 m Eq/L [facility]: [address] [facility] High Abg Hco3 28.2 mEq/L 22.0-26.0 mEq/L [facility]: [address] [facility] Normal ABG Base Excess 1.2 -2.0-2.0 [facility]: [address] [facility] Normal ABG Standard HCO3 25.5 mEq/L 22.0-26 .0 mEq/L [facility]: [address] [facility] Normal ABG O2 Saturation 95.0 % 95.0-99.0 % [facility]: 0 [facility] 02/28/2020 CBC W/ Auto Diff Normal White Blood Count 6.0 10 4.0-10.[address] [facility]: 0 [facility] Normal Red Blood Count 4.71 10 4.00-5.[address] [facility]: 0 [facility] Normal Hemoglobin 13.8 g/dL 12.0-15.5 g/dL [facility]: 0 [facility] Normal Hematocrit 44.9 % 36.0-47.0 % [facility]: [address] [facility] Normal Mean Corpuscular Volume 95.3 fL 80.0 -96.[address] [facility]: [address] [facility] Normal Mean Corpuscular Hemoglobin 29.3 pg 27.0-33.[address] [facility]: [address] [place] [address] Low Mean Corpuscular HGB Conc 30.7 g/dL 32.0-36.5 g/dL Final [facility]: [address] [facility] Normal Red Cell Distribution Width 14.3 % 1 1.5-14.5 % [facility]: [address] [place] [address] Low Platelet Count, Automated 148 10 150 -[address] [facility]: [address] [facility] High Neutrophils % 67.9 % 36.0-66.0 % [facility]: [address] [facility] Low Lymph % 17.1 % 24.0-44.0 % Final [facility]: [address] [facility] High [place] % 6.0 % 0.0-5.0 % [facility]: [address] [facility] High Eos % 3.8 % 0.0-3.0 % [facility]: 0 [facility] High Baso % 1.2 % 0.0-1.0 % [facility]: [address] [facility] High Immature Granulocyte % 4.0 % 0-3.0 % [facility]: [address] [facility] Normal Nucleated Red Blood Cell % 0.0 % 0- 0 % [facility]: [address] [facility] Normal Neutrophils # 4.1 10 1.5-8.5 10 [facility]: [address] [facility] Low Lymph # 1.0 10 1.5-5.0 10 [facility]: [address] [facility] Normal [place] # 0.4 10 0.0-0.8 10 [facility]: [address] [facility] Normal Eos # 0.2 10 0.0-0.5 10 [facility]: [address] [facility] Normal Baso # 0.1 10 0.0-0.2 10 [facility]: [address] [facility] 02/28/2020 Istat Chem8+ Panel Normal Istat HCT 46.0 % 38. 0-51.0 % [facility]: [address] [facility] Normal Istat Glucose 94 mg/dL 70-105 mg/dL [facility] [address] [facility] Normal Istat Sodium 138 mEq/L 136-145 mEq/L [facility]: [address] [facility] Panic High Istat Potassium 6.9 mEq/L 3.5-5. 1 mEq/L [facility]: [address] [facility] Low Istat Ca++ 4.4 mg/dL 4.5-5.3 mg/dL [facility]: [address] [facility] Normal Istat Chloride 100 mEq/L 98-109 mEq/ L [facility]: [address] [facility] High Istat CO2 32.0 mm/L 23.0-27.0 mm/L [facility]: [address] [facility] Normal Istat BUN 12 mg/dL 8-26 mg/dL [facility]: 0 [facility] High Istat Creatinine 2.3 mg/dL 0.6-1.3 m g/dL [facility]: [address] [facility] 02/28/2020 Ctni Istat Normal Istat Troponin 0.01 NG/m L 0.00-0.08 NG/mL [facility]: 0 [facility] 02/28/2020 SARS CoV 2 RNA (COVID-19), QL, body cleaner-PCR, Respirat ory Specimen Normal Sars Covid-[address] [facility]: 0 [facility] 02/28/2020 Hepatic Function Panel, Serum Normal AST/SG OT 18 U/L 7-37 U/L [facility]: 0 [facility] Low ALT/SGPT 11 U/L 12-78 U/L [facility]: 0 [facility] Normal Alkaline Phosphatase 98 U/L 45-117 U /L [facility]: 0 [facility] Normal Bilirubin,total 0.3 mg/dL 0.2-1.0 mg /dL [facility]: [address] [facility] Normal Bilirubin,direct < 0.1 mg/dL 0.0-0.2 mg/dL [facility]: 0 [facility] Normal Total Protein 7.8 gm/dL 6.4-8.2 gm/d L [facility]: [address] [place] [address] Normal Albumin 4.0 gm/dL 3.2-5.2 gm/dL [place] [facility]: 0 [facility] Low Albumin/globulin Ratio 1.1 1.2-2. 2 [facility]: 0 [facility] 02/28/2020 BMP, Serum or Plasma High Glucose, Fastin g 108 mg/dL 70-100 mg/dL [facility]: 83 0 [facility] Normal Blood Urea Nitrogen 11 mg/dL 7-18 mg /dL [facility]: 0 [facility] High Creatinine for GFR 2.30 mg/dL 0.55-1 .30 mg/dL [facility]: 0 [facility] Low Glomerular Filtration Rate 25.[address] >[address] [facility]: [address] [facility] Normal Sodium Level 137 mEq/L 136-145 mEq/L [facility]: 0 [facility] Normal Potassium Serum 4.4 mEq/L 3.5-5.1 mE q/L [facility]: 0 [facility] Normal Chloride Level 103 mEq/L 98-107 mEq/ L [facility]: 0 [facility] Normal Carbon Dioxide Level 31 mEq/L 21-32 mEq/L [facility]: [address] [place] [address] Low Anion Gap 3 mEq/L 8-16 mEq/L [facility]: [address] [place] [address] Normal Calcium Level 9.6 mg/dL 8.5-10.1 mg/ dL [facility]: [address] [place] [address] 02/28/2020 TSH, Serum or Plasma High Thyroid Stimulating Hormone 190.000 uIU/mL 0.358-3.740 uIU/mL [facility] nter: [address] [place] [address] 02/28/2020 beta-HCG, Qualitative, Serum or Plasma Normal HCG, Serum Qualitative negative negative [facility]: [address] [place] [address] 02/28/2020 Istat ABG Normal Istat pH 7.359 units 7.350-7. [address] [facility]: [address] [place] [address] High Istat pCO2 51.0 mmHg 35.0-45.[address] [facility]: [address] [place] [address] CRITICAL LOW Istat pO2 46.0 mmHg 80-[address] [facility]: [address] [place] [address] High Istat TCO2 30.0 mmol/L 23.0-27.0 mmo l/L [facility]: [address] [place] [address] High Istat HCO3 28.7 mmol/L 22.0-26.0 mmo l/L [facility]: [address] [place] [address] Normal Istat Base Excess 3.0 mmol/L -2.0-3. 0 mmol/L [facility]: [address] [place] [address] Low Istat So2 79 % 95-98 % [facility]: [address] [place] [address] 02/28/2020 CK (Creatine Kinase) Mb, Quantitative, Blood Hi gh CPK Creatine Phosphokinase 277 U/L 26-192 U/L [facility]: [address] [place] [address] 02/28/2020 Uric Acid, Serum or Plasma High Uric Acid 8.3 mg/dL 2.6-6.0 mg/dL [facility]: 83 0 [facility] 02/28/2020 Magnesium, Serum or Plasma Normal Magnesium Level 2.1 mg/dL 1.8-2.4 mg/dL [facility]: 83 0 [facility] 02/28/2020 Osmolality, Serum Normal Osmolality Serum 292 mOsm/kg 275-295 mOsm/kg [facility]: 83 0 [facility] 02/28/2020 T4, Free, Serum Low Free T4 0.19 NG/dL 0.76 -1.46 NG/dL [facility]: 830 [facility] 02/28/2020 Triiodothyronine Free, QN, Serum or Plasma Low Free T3 < 0.5 pg/mL 2.2-4.0 pg/mL [facility]ter: 830 [facility] 02/28/2020 D-dimer, Quant, Plasma High D-dimer Quant 1194.11 NG/mL <500 NG/mL [facility]: 83 0 [facility] 02/28/2020 Procalcitonin, Serum Normal Procalcitonin <0.[address] [facility]: 830 [facility] 02/28/2020 Urinalysis, Dipstick High Appearance, Urine cloudy clear [facility]: 830 [facility] Normal Color, Urine yellow yellow [facility]: 830 [facility] Normal pH,urine 7.0 units 5.0-9.[address] [facility]: 830 [facility] Normal Specific [place] Urine Auto 1.016 1 .002-1.035 [facility]: 830 [facility] Normal Protein, Urine Auto negative mg/dL n egative mg/dL [facility]: 830 [facility] Normal Glucose, Urine (UA) Auto negative mg /dL negative mg/dL [facility]: 830 [facility] Normal Ketone, Urine Auto negative mg/dL ne gative mg/dL [facility]: 830 [facility] Normal Urobilinogen, Urine Auto 0.2 mg/dL 0 .0-2.0 mg/dL [facility]: 830 [facility] Normal Bilirubin, Urine Auto negative negat doron [facility]: 830 [facility] Normal Nitrite, Urine Auto positive negativ e [facility]: 830 [facility] High Leukocyte Esterase, Urine Auto 1+ negative [facility]: 830 [facility] Normal Blood, Urine Blood negative negative [facility]: 830 [facility] High WBC, Urine Auto 13 /hpf 0-3 /hpf [facility]: 830 [facility] Normal RBC, Urine Auto 1 /hpf 0-3 /hpf [facility]: 830 [facility] High Bacteria, Urine Auto 3+ negative [facility]: 830 [facility] Normal Squamous Epithelial Cell Ur AU 5 /hp f 0-6 /hpf [facility]: 830 [facility] Normal Transitional Epithelial Auto <1 /hpf none /hpf [facility]: 830 [facility] Normal Mucus, Urine small negative [facility]: 830 [facility] Normal Hyaline Cast, Urine Auto 0 /lpf 0-1 /lpf [facility]: 830 [facility] 02/28/2020 Osmolality, Urine Normal Osmolality Urine 523 mOsm/kg 500-800 mOsm/kg [facility]: 83 0 [facility] 02/28/2020 Creatinine, Urine Normal Creatinine,random Urine 165.0 mg/dL [facility]: 830 [facility] 02/28/2020 Sodium, Urine Normal Sodium,random Urine 61 mE q/L [facility]: 830 [facility] 02/28/2020 Potassium, Urine Normal Potassium Random Ur ine 96.0 mEq/L [facility]: 830 [facility] Past Encounters 12/12/2020 Mixed Anxiety and Depressive Disorder; Hypothyroidism; Syringomyelia Karl Lott MD: [address] [place] [phone], Ph. 11/21/2020 Long-term Drug Therapy; Hypothyroidism; Closed Fracture of Lower Limb Marlee Gaspar MD: [address] [place] [phone], Ph. 09/07/2020 Body Mass Index 40+ - Severely Obese; Nicotine Dependence with Current Use; Abscess of Skin And/or Subcutaneous Tissue Marlee Gaspar MD: [address] [place] [phone], Ph. 09/04/2020 Covid-19 Marlee Gaspar MD: [address] [place] [phone], Ph. 07/17/2020 Mixed Anxiety and Depressive Disorder; Sarcoidosis; Hypothyroidism Karl Lott MD: [address] [place] [phone], Ph. 06/04/2020 Mixed Anxiety and Depressive Disorder; Hypothyroidism Karl Lott MD: [address] [place] [phone], Ph. 04/27/2020 Severe Recurrent Major Depression without Psychotic Features; Hypothyroidism; Sarcoidosis; Nicotine Dependence with Current Use [facility] [place]: [address] [place] [phone], Ph. 02/28/2020 Dyspnea; Fall Re [place] [facility]: [address] [place] [phone], Ph. Social History Tobacco Smoking Status Light Tobacco Smoker (1/4 pack per da y) Vaccine List Vaccine Type influenza, injectable, quadrivalent, pre servative free 02/02/20190.5 mL Plan of Care Reminders Provider Appointments None recorded. Lab None recorded. Referral None recorded. Procedures None recorded. Surgeries None recorded. Imaging None recorded. Vitals 12/12/2020 02:00PM ESTABLISHED [id number] Height Weight BMI Blood Pressure 63 in 231 lbs 6 oz 41 kg/m2 106/76 mm[Hg] 11/21/2020 09:40AM TCM Height Weight BMI Blood Pressure 63 in 114/80 mm[Hg] 09/07/2020 10:20AM SAME DAY 20 Height Weight BMI Blood Pressure 63 in 242 lbs 9.6 oz 43 kg/m2 111/76 mm[Hg ] 09/04/2020 10:20AM TELEHEALTH 20 Height 63 in 07/17/2020 10:00AM HOSPITAL DISCHARGE Height Weight BMI Blood Pressure 63 in 242 lbs 4 oz 42.9 kg/m2 105/73 mm[Hg] 06/04/2020 01:40PM ESTABLISHED [id number] Height Weight BMI Blood Pressure 63 in [...]
--- OUTSIDE RECORDS SUMMARY | 2021-01-20 15:52 | CCD | Summary of Care ---
Author Author [facility] Organization [facility] Address Unknown Phone Unavailable Care Team Providers Care Recycling Coordinator Name Role Phone Karl Lott MD PCP Reason for Referral * Physical Therapy (Routine) Referred By Contact Referred To Contact Status Reason Specialty Diagnoses / Procedures Levy Griggs PA [address] [place] [address] Email: [email or web address] Open Diagnoses Closed fracture of left tibia and fibula with routine healing, subsequent encounter P rocedures Physical Therapy Evaluate and Treat (External) Electronically signed by Levy CHRISTIE at Reason for Visit * Reason Comments Post-op 10/28/20 Left tibial shaft f racture Encounter Details Care Team Description Date Type Department Levy Griggs PA [address] [place] [address] [phone] Closed fracture of left tibia and fibula with routine healing, subsequent encounter (Primary Dx) 11/23/2020 Office Visit [facility] , [facility] [address] [place] [phone] Allergies No Known Active Allergiesdocumented as of this encounter (statuses as of 11/23/2020) Medications End Date Status Medication Sig Dispensed Refills Start Date Active busPIRone (BUSPAR) 10 MG Take 10 mg by 0 09/06 tablet mouth Two 1 Times Daily Active Gabapentin 800 MG Oral Take 800 mg 0 02 Tablet (NEURONTIN) by mouth 1 Three times daily Active QUEtiapine Fumarate ER Take 200 mg 0 02 200 MG Oral Tablet by mouth 1 Extended Release 24 Hour nightly (SEROquel XR) Active Albuterol Sulfate HFA 108 Inhale 2 0 (90 Base) MCG/ACT puffs into Inhalation Aerosol the lungs Solution (PROVENTIL HFA) every 6 (six) hours as needed for Wheezing Active Docusate Sodium 100 MG Take 100 mg 0 Oral Capsule (COLACE) by mouth Two Times Daily Active Methadone HCl 10 MG/ML Take 145 mg 0 Oral Concentrate by mouth (DOLOPHINE) daily 12/08/2020 Active hydrOXYzine HCl 50 MG Take 1 tablet 90 tablet 0 Oral Tablet (ATARAX) by mouth 1 every 6 (six) hours as needed for Anxiety 12/08/2020 Active traZODone HCl 50 MG Oral Take 1 tablet 30 tablet 0 Tablet (DESYREL) by mouth 1 nightly 11/08/2021 Active Levothyroxine Sodium 175 Take 1 tablet 30 tablet 11 MCG Oral Tablet by mouth 1 (SYNTHROID) Daily 12/08/2020 Active buPROPion HCl ER (XL) 150 Take 1 tablet 30 tablet 0 MG Oral Tablet Extended by mouth 1 Release 24 Hour daily With (WELLBUTRIN XL) 300mg tablet to equal 450mg daily 12/08/2020 Active buPROPion HCl ER (XL) 300 Take 1 tablet 30 tablet 0 MG Oral Tablet Extended by mouth 1 Release 24 Hour daily With (Wellbutrin XL) 150mg tablet to equal 450mg daily 12/08/2020 Active Aspirin EC 81 MG Oral Take 1 tablet 30 tablet 0 Tablet Delayed Release by mouth 1 daily 12/07/2020 Active Cephalexin 500 MG Oral Take 1 56 capsule 0 Capsule capsule by 1 mouth Four times daily 11/23/2020 Discontinued (Medication Rec oncilation) Prazosin HCl 1 MG Oral Take 1 mg by 0 02 Capsule (MINIPRESS) mouth nightly 1 11/23/2020 Discontinued (Medication Rec oncilation) Vitamin D3 25 MCG (1000 Take 2,000 0 UT) Oral Tablet Units by (CHOLECALCIFEROL) mouth daily documented as of this encounter (statuses as of 11/23/2020) Active Problems Problem Noted Date Akinesia 10/27/2020 Leg fracture, left, closed, initial encounter 2020 documented as of this encounter (statuses as of 11/23/2020) Immunizations Name Administration Dates Next Due documented as of this encounter Social History Date Tobacco Use Types Packs/Day Years Used Current Every Day Smoker Cigarettes 0.5 Smokeless Tobacco: Never Used Comments Alcohol Use Standard Drinks/Week Never 0 (1 standard drink = 0.6 o z pure alcohol) Alcohol Habits Answer Date Recorded How often do you have a drink containing alcohol? Never 11/23/2020 How many drinks containing alcohol do you have on No t asked a typical day when you are drinking? How often do you have six or more drinks on one Not asked occasion? Sex Assigned at Date Recorded Not on file Date Recorded COVID-19 Exposure Response 11/23/2020 11:00 AM EDT In the last month, have you been in contact with No / Unsure someone who was confirmed or suspected to have Coronavirus / COVID-19? documented as of this encounter Last Filed Vital Signs Reading Time Taken Comments Vital Sign 127/92 11/23/2020 11:18 AM EDT Blood Pressure 95 11/23/2020 11:18 AM EDT Pulse - - Temperature - - Respiratory Rate - - Oxygen Saturation - - Inhaled Oxygen Concentration 110.2 kg (243 lb) 11/23/2020 11:18 AM EDT Weight 160 cm (5' 3") 11/23/2020 11:18 AM EDT Height 43.05 11/23/2020 11:18 AM EDT Body Mass Index documented in this encounter Progress Notes * Levy Griggs PA - 11/23/2020 11:45 AM EDT Images from the original note were not included. ESTABLISHED PATIENT, POSTOP FOLLOW-UP Episode of Care: Subsequent Anatomical Site/Laterality: Left tibia and fibula Attending: Manjeet Ervin MD HPI: Deborah Webb is a 40 y.o. female who returns to the office for follow-up sta tus post ORIF of her tibia shaft fracture with IM nail. This was performed on . Since then, the patient is overall doing well. She denies any signif icant pain or problems. She did get discharged home on antibiotics because of s ome drainage about one of her wounds, but states that this area has dried up. S he has been compliant with her touchdown weightbearing status. Should be 4 week s out from surgery on Thursday. There has been no interval trauma. The patient d enies fevers, chills, sweats. No neurologic complaints. Medical history, family history, social history, medications, allergies and revi ew of systems are documented in the electronic record and reviewed today with th e patient. PHYSICAL EXAMINATION: General: Pleasant, cooperative, A&O, NAD. Gait: Not assessed The patient was reexamined to the left lower extremity. Her surgical wounds are healing nicely. The most proximal wound superior to the patella does show a ar ea of dried serosanguineous fluid. Her wounds otherwise appear to be healed suzanne lidia and sd were removed today. Steri-Strips were placed. Range of motion the knee and ankle is well-preserved and nontender. There is minimal tenderness to palpation throughout the tibia and fibula. No palpable step-off, crepitance, deformity appreciated. The calf is soft and supple. There is no Homans' sign present. She is neurovascularly intact without change from previous. IMAGING REVIEW: AP and lateral views of the left tibia performed today were reviewed demonstrati ng early interval healing of her fractures. There is early callus formation francia ntified. Alignment and hardware appear grossly unchanged. All imaging was revi ewed by me with patient and/or family members. ASSESSMENT: Status post ORIF left tibia shaft fracture with IM nail and closed management of fibular shaft fracture, doing well PLAN: Today I discussed at length with Deborah, her clinical exam findings and we revi ewed continued treatment options. She appears to be doing well at this time wit h early interval healing suggested on x-ray. Her sd were removed and Steri -Strips were placed today. We will get her started with physical therapy for so me gait training. She can advance from touchdown weightbearing to partial weigh tbearing to weightbearing as tolerated at this time. She will follow-up in the office in about 4 to 6 weeks for reassessment with repeat x-rays. Sooner if any problems. The patient was instructed to call the office with any questions/concerns or if symptoms worsen. Return for follow-up: 4-6 weeks Imaging next visit: AP and lateral views left tibia Orders Placed This Encounter XR Tibia Left Physical Therapy Evaluate and Treat (External) Cephalexin 500 MG Oral Capsule CC: Karl Lott MD This document was dictated using Tradono software. A reasonable attempt at proof reading has been made to minimize errors. Please ca ll our office if you have any questions. documented in this encounter Plan of Treatment Care Team Description Date Type Specialty 12/11/2020 Procedure visit Pulmonology Maggy Caba MBBS [address] [facility] [address] [place] [address] [phone] 12/11/2020 Office Visit Pulmonology Manjeet Ervin MD [address] [place] [address] [phone] 12/25/2020 Office Visit Orthopedic Surgery Date/Time Name Type Priority Associated Diag noses 11/23/2020 11:13 AM EDT XR Tibia Left Imaging Routine Leg fracture, l eft, closed, initial encounter Order Schedule Name Type Priority Associated Diag noses Expected: 11/23/2020, Expires: 3 XR Tibia Left Imaging Routine Closed fracture of left tibia and fibula with routine healing, subsequent encounter Health Maintenance Due Date Last Done Comments MMR Vaccines (1 of - 1983 Standard series) Varicella Vaccines (1 of 1983 2 - 2-dose childhood series) Pneumococcal Vaccine: 65+ 1988 Years (1 of 2 - PPSV23) Pneumococcal Vaccine: 1988 Pediatrics (0 to 5 Years) and At-Risk Patients (6 to 64 Years) (1 of 2 - PPSV23) DTaP,Tdap,and Td Vaccines 1989 (1 - Tdap) HIV Screening 1995 Cervical Cancer Screening 2003 5 years Influenza Vaccine 01/04/2021 Hepatitis A Vaccines Aged Out 05/19/2019 No longer eligible based on patient's age to complete this topic COVID-19 Vaccine Completed 08/29/2020 HIB Vaccines Aged Out No longer eligible based on patient's age to complete this topic Hepatitis B Vaccines Aged Out No longer eligibl e based on patient's age to complete this topic IPV Vaccines Aged Out No longer eligible based on patient's age to complete this topic documented as of this encounter Implants Device Identifier Shelf Expiration Date Model / Serial / L ot Implanted Type Area Manufactur er 03/05/2029 [id number] / / [id number] Nail Tib Gianfranco Prx Bnd [id number] - Left: Tibia SYNT HES [id number] [place] Implanted: Qty: 1 on 10/28/2020 by Manjeet Ervin MD at [facility] 5E [id number] / / Screw T25 Lk Star 5.0mm 34mm - Left: Tibia SYNTHE S [id number] [place] Implanted: Qty: 2 on 10/28/2020 by Manjeet Ervin MD at [facility] [id number] / / Screw T25 Lk Star 5.0mm 28mm - Left: Tibia SYNTHE S [id number] [place] Implanted: Qty: 1 on 10/28/2020 by Manjeet Ervin MD at [facility] 5E 04.005.536 / / Screw T25 Lk Star 5.0mm 46mm - Left: Tibia SYNTHE S [id number] LTD [facility] Implanted: Qty: 1 on 10/28/2020 by Manjeet Ervin MD at OR 5E documented as of this encounter Results Not on filedocumented in this encounter Visit Diagnoses Diagnosis Closed fracture of left tibia and fibul a with routine healing, subsequent encounter - Primary documented in this encounter
--- OUTSIDE RECORDS SUMMARY | 2021-01-20 15:52 | CCD | Summary of Care ---
Author Author [facility] Organization [facility] Address Unknown Phone Unavailable Care Team Providers Care Reinstatement Clerk Name Role Phone Karl Lott MD PCP Reason for Referral * Sleep (Routine) Referred By Contact Referred To Contact Status Reason Specialty Diagnoses / Procedures Maggy Caba MBBS [address] [place] [id number] Email: [email or web address] [address] [phone] Open Specialty Services Sleep Medicine Diagnoses Required TAVO (obstructive sleep apnea) Scheduling Instructions PLEASE NOTE: If "MSLT" is selected from the "Study Type" below, then a "Comprehensive Polysomnography (in-Center)" must be ordered as well. Electronically signed by Shon Beltran MD at * Consultation (Routine) Referred By Contact Referred To Contact Status Reason Specialty Diagnoses / Procedures Maggy Caba MBBS [address] [place] [address] [address] [place] [address] Email: [email or web address] Cardiology Provider-Based [address] 5th Floor, [address] [place] [phone] Authorized Specialty Services Cardiology Diagnoses Required Syncope and collapse Electronically signed by Shon Beltran MD at Reason for Visit * Reason Comments New Patient * Diagnostic Medical (Routine) Referred By Contact Referred To Contact Status Reason Specialty Diagnoses / Procedures Re Sherwood NP [address] [place] [phone] Pulmonology Provider-Based [facility] [address] [facility] 2nd Floor, [address] [place] [address] Authorized Pulmonology Diagnoses Sarcoid Encounter Details Care Team Description Date Type Department Maggy Caba MBBS [address] [address] [phone] Sarcoidosis (Primary Dx); Syncope and collapse; Loud snoring; TAVO (obstructive sleep apnea) 12/11/2020 Office Visit [facility] [address] [facility] 2nd [facility], [address] [place] [address] Allergies Comments Active Allergy Reactions Severity Noted Date Increases anxiety Prednisone 12/11/2020 documented as of this encounter (statuses as of 12/11/2020) Medications End Date Status Medication Sig Dispensed [...] 0 Oral Concentrate by mouth (DOLOPHINE) daily 11/08/2021 Active Levothyroxine Sodium 175 Take 1 tablet 30 tablet 11 MCG Oral Tablet by mouth 1 (SYNTHROID) Daily Active traZODone HCl 100 MG Oral Take 100 mg 0 Tablet (DESYREL) by mouth nightly Active buPROPion HCl ER (XL) 300 Take 300 mg 0 MG Oral Tablet Extended by mouth Release 24 Hour every morning (WELLBUTRIN XL) documented as of this encounter (statuses as of 12/11/2020) Active Problems Problem Noted Date [employer]ia 10/27/2020 Leg fracture, left, closed, initial encounter 2020 documented as of this encounter (statuses as of 12/11/2020) Immunizations Name Administration Dates Next Due documented [...] on file Date Recorded COVID-19 Exposure Response 12/11/2020 10:45 AM EDT In the last month, have you been in contact with No / Unsure someone who was confirmed or suspected to have Coronavirus / COVID-19? documented as of this encounter Last Filed Vital Signs Reading Time Taken Comments Vital Sign 106/80 12/11/2020 12:25 PM EDT Blood Pressure 76 12/11/2020 12:25 PM EDT Pulse 37 C (98.6 F) 12/11/2020 12:25 PM EDT Temperature 16 12/11/2020 12:25 PM EDT Respiratory Rate 93% 12/11/2020 12:25 PM EDT Oxygen Saturation - - Inhaled Oxygen Concentration 104.3 kg (230 lb) 12/11/2020 12:25 PM EDT Weight 160 cm (5' 3") 12/11/2020 12:25 PM EDT Height 40.74 12/11/2020 12:25 PM EDT Body Mass Index documented in this encounter Progress Notes * Maggy Caba MBBS - 12/11/2020 1:00 PM EDT Images from the original note were not included. Reason For Visit : Management of sarcoidosis. History Of Present Illness: Deborah Webb is a 40 y.o.year old with below mentioned medical history who i s here for evaluation and management of the sarcoidosis. Patient was diagnosed with sarcoidosis around October 2018 after bronchoscopy guide d biopsy (as per the referral document page 27/65), which showed non-caseating g ranuloma. She was initially treated with prednisone for 6-7 months after which t he patient stopped the prednisone as she did not wanted to continue with steroid as it was making her anxiety worse. Cardiac MRI was also ordered by Dr. Hurst, [employer] User Interface Developer at [place] but it andre s not happened till date. She c/o syncopal episode, last one happened last week which resulted into fall a nd fracture of her lower limb. She has associated palpitation also. Today she denies any SOB at rest or minimal exertion, cough, hemoptysis, fever, chills, headache, jaundice, skin rash, weight loss, night sweats. She has noticed some blurring of vision. Her also states she snores loudly at night during sleep. She has h/o hypothyroidism, polysubstance abuse including IV heroin and cocaine inhalation in past. Patient has been on methadone program and has not used recre ational drug since past 2 years according to her. She was suppose to follow up with her [employer] Web User Interface Developer at [place], cattle broker a nd ophthalomologist but she has not seen them and has been lost to follow up. Her primary care referred her to us, to establish care for sarcoidosis managemen t. Past Medical History: Past Medical History: Diagnosis Date Anxiety Bronchitis, chronic Depression GERD (gastroesophageal reflux disease) Headache Substance abuse Thyroid disease Past Surgical History: Past Surgical History: Procedure Laterality Date SECTION IM NAILING TIBIA 10/28/2020 TUBAL LIGATION 2006 Allergies: Prednisone Family History: Family History Family history unknown: Yes Social History: Social History Socioeconomic History Marital status: Single Spouse name: None Number of children: None Years of education: None Highest education level: None Occupational History None Tobacco Use Smoking status: Current Every Day Smoker Packs/day: 0.50 Types: Cigarettes Smokeless tobacco: Never Used Substance and Sexual Activity Alcohol use: Never Drug use: Yes Types: Methamphetamines, Amphetamines Comment: clean x 2 years Sexual activity: None Other Topics Concern None Social History Narrative None Social Determinants of Health Financial Resource Strain: Difficulty of Paying Living Expenses: Food Insecurity: Worried About Running Out of Food in the Last Year: Ran Out of Food in the Last Year: Transportation Needs: Lack of Transportation (Medical): Lack of Transportation (Non-Medical): Physical Activity: Days of Exercise per Week: Minutes of Exercise per Session: Stress: Feeling of Stress : Social Connections: Frequency of Communication with Friends and Family: Frequency of Social Gatherings with Friends and Family: Attends Caodaism Services: Active Member of Clubs or Organizations: Attends Club or Organization Meetings: Marital Status: Intimate Partner Violence: Fear of Current or Ex-Partner: Emotionally Abused: Physically Abused: Sexually Abused: Home Medications: Current Outpatient Medications: Albuterol Sulfate HFA 108 (90 Base) MCG/ACT Inhalation Aerosol Solution (PROVENTIL HFA), Inhale 2 puffs into the lungs every 6 (six) hours as needed fo r Wheezing, Disp: , Rfl: buPROPion HCl ER (XL) 300 MG Oral Tablet Extended Release 24 Hour (WELLB UTRIN XL), Take 300 mg by mouth every morning, Disp: , Rfl: Gabapentin 800 MG Oral Tablet (NEURONTIN), Take 800 mg by mouth Three ti mes daily , Disp: , Rfl: Levothyroxine Sodium 175 MCG Oral Tablet (SYNTHROID), Take 1 tablet by m outh Daily, Disp: 30 tablet, Rfl: 11 Methadone HCl 10 MG/ML Oral Concentrate (DOLOPHINE), Take 145 mg by mout h daily, Disp: , Rfl: QUEtiapine Fumarate ER 200 MG Oral Tablet Extended Release 24 Hour (SERO quel XR), Take 200 mg by mouth nightly, Disp: , Rfl: traZODone HCl 100 MG Oral Tablet (DESYREL), Take 100 mg by mouth nightly , Disp: , Rfl: busPIRone (BUSPAR) 10 MG tablet, Take 10 mg by mouth Two Times Daily (P atient not taking: Reported on 12/11/2020), Disp: , Rfl: Docusate Sodium 100 MG Oral Capsule (COLACE), Take 100 mg by mouth Two T imes Daily (Patient not taking: Reported on 12/11/2020), Disp: , Rfl: No current facility-administered medications for this visit. Review Of Systems: Review of Systems Constitutional: Negative for activity change, appetite change, chills, fatigue a nd fever. HENT: Negative for congestion. Respiratory: Negative for cough and shortness of breath. Cardiovascular: Negative for chest pain and palpitations. Positive for syncopal episode. Gastrointestinal: Negative diarrhea, nausea and vomiting. Genitourinary: Negative for kidney stones. Musculoskeletal: Negative for myalgias. Skin: Negative for rash. Neurological: Negative for dizziness, weakness, light-headedness, numbness and h eadaches. Vitals: Vitals: 12/11/20 1225 BP: 106/80 Pulse: 76 Resp: 16 Temp: 37 C (98.6 F) SpO2: 93% Physical Exam Physical Exam Constitutional: oriented to person, place, and time. appears well-developed and well-nourished. No distress. HENT: Head: Normocephalic and atraumatic. Eyes: Conjunctivae are normal. Cardiovascular: Normal rate, regular rhythm, normal heart sounds and intact dist al pulses. Exam reveals no friction rub. No murmur heard. Pulmonary/Chest: Effort normal and breath sounds normal. No respiratory distress . no wheezes. has no rales. exhibits no tenderness. Abdominal: Bowel sound present. Musculoskeletal: exhibits no edema. Neurological: No focal weakness. Skin: Skin is warm. No erythema. Pulmonary Function Test from today Assessment and Plan: 1. Pulmonary sarcoidosis Patient was diagnosed with sarcoidosis around October 2018 after bronchoscopy guide d biopsy (as per the referral document page 27/65), which showed non-caseating g ranuloma. She was initially treated with prednisone for 6-7 months after which t he patient stopped the prednisone as she did not wanted to continue with steroid as it was making her anxiety worse. Cardiac MRI was also ordered by Dr. Hurst, [employer] User Interface Developer at [place] but it andre s not happened till date. She c/o syncopal episode, last one happened last week which resulted into fall a nd fracture of her lower limb. She has associated palpitation also. - We will send referral to cardiology colleagues, for her to get evaluated for r ecurrent syncope episodes, as she also has h/o sarcoidosis. She will need Holter monitoring and cardiac MRI. Although she is on different medications that can p rolong QTc interval, her last EKG from 10/29/20 showed normal QTc range. - At this time her pulmonary symptoms are minimal and her CT chest from 07/2018 versus 02/2020, shows significant decrease in the lymphnode size without any pul monary parenchyma progression, which likely was due to steroid course that she h ad received initially for 6-7 months after her diagnosis around 09/2018. So we w ill - Patient was recommended to follow up with extraction machine operator every year. She also has h/o CKD which is unclear if its due to sarcoidosis (no h/o renal calculi) or from previous substance abuse. She was told to follow up with her cattle broker at [place] again and to ask the cattle broker if they think kidney biopsy would be needed for possibilities of ruling out renal involvement from sarcoidosis. 2. Evaluation for obstructive sleep apnea - Patient also c/o sleepiness, loud snoring. She was noted do drop her SpO2 whil e she was sleeping during her hospital stay around 03/2020. Her BMI is 40. Octavio mpati score is 4 and STOP BANG score is 4. - We will order home sleep study. Patient is interested in wearing CPAP if she has TAVO. Follow Up Plan: Will follow up on 6 months. Informed the patient to call if symptoms worsen. Patient was seen and assessment and plan was discussed with Dr. Beltran, Pulmonary a ttending. Maggy Caba, PGY-6 Pulmonary & Critical Care Fellow Pager: [phone] * Iraj Diaz LPN - 12/11/2020 1:00 PM EDT 12/11/20 1200 MRC- Dyspnea Scale MRC-Dyspnea Score 3- Stops for breath after walking about 100 yards or after a f ew minutes on level ground documented in this encounter Plan of Treatment Care Team Description Date Type Specialty Manjeet Ervin MD [address] [place] [address] [phone] 12/25/2020 Office Visit Orthopedic Surgery Order Schedule Name Type Priority Associated Diag noses Ordered: 12/11/2020 Ambulatory Referral to Outpatient Routine Syncope and collapse Cardiology Referral Ordered: 12/11/2020 Ambulatory referral to Outpatient Routine TAVO (ob structive sleep Sleep Studies Referral apnea) Health Maintenance Due Date Last Done Comments MMR Vaccines (1 - 1983 Standard series) Varicella Vaccines (1983 2 - 2-dose childhood series) Pneumococcal Vaccine: [...] Area Manufactur er 03/05/2029 [id number] / / [id number] Nail Tib Gianfranco Prx Bnd [id number] - Left: Tibia SYNT HES [id number] [employer] [place] Implanted: Qty: 1 on 10/28/2020 by Manjeet Ervin MD at [facility] [id number] / / Screw T25 Lk Star 5.0mm 34mm - Left: Tibia SYNTHE S [id number] [employer] [place] Implanted: Qty: 2 on 10/28/2020 by Manjeet Ervin MD at [facility] [id number] / / Screw T25 Lk Star 5.0mm 28mm - Left: Tibia SYNTHE S [id number] [employer] [place] Implanted: Qty: 1 on 10/28/2020 by Manjeet Ervin MD at [facility] [id number] / / Screw T25 Lk Star 5.0mm 46mm - Left: Tibia SYNTHE S [id number] [employer] [place] Implanted: Qty: 1 on 10/28/2020 by Manjeet Ervin MD at [facility] documented as of this encounter Results Not on filedocumented in this encounter Visit Diagnoses Diagnosis Sarcoidosis - Primary Syncope and collapse Loud snoring TAVO (obstructive sleep apnea) Obstructive sleep apnea (adult) (pediat lul) documented in this encounter
--- OUTSIDE RECORDS SUMMARY | 2021-01-20 15:52 | CCD | Continuity of Care Document ---
Author Author [facility] [employer] Organization Unknown Address Unknown Phone Unavailable Care Team Providers Care Marketing Communications Leader Name Role Phone Arcadio, Manjeet Unavailable OrenKarl Unavailable [facility] Unavailable Unavailable Unavailable Unavailable Marylin Dent Unavailable LissaBrittanie Unavailable Problems Name Dates Details Encounter for other specified surgical aftercare (Z48.89) 07-Nov-2020 Status: Active Medications Name Dates Details Aspirin [...] Ins truction Type: Nutrition education Payers * [facility]
--- OUTSIDE RECORDS SUMMARY | 2021-01-20 15:52 | CCD | Continuity of Care Document ---
Author Author [facility] [employer] Organization Unknown Address Unknown Phone Unavailable Care Team Providers Care Pipe Line Gauger Name Role Phone Arcadio, Manjeet Unavailable OrenKarl Unavailable [facility] Unavailable Unavailable Unavailable Unavailable Marylin Dent Unavailable [...] Ins truction Type: Nutrition education Payers * [facility]
--- OUTSIDE RECORDS SUMMARY | 2021-01-20 15:52 | CCD | Continuity of Care Document ---
Author Author [facility] [employer] Organization Unknown Address Unknown Phone Unavailable Care Team Providers Care Inflated Pad Buffer Name Role Phone Arcadio, Manjeet Unavailable OrenKarl Unavailable [facility] Unavailable Unavailable Unavailable Unavailable Marylin Dent Unavailable [...] Ins truction Type: Nutrition education Payers * [facility]
--- OUTSIDE RECORDS SUMMARY | 2021-01-20 15:53 | CCD | Summary of Care ---
Author Author [facility] Organization [facility] Address Unknown Phone Unavailable Care Team Providers Care Cobbler Mckay Name Role Phone Karl Lott MD PCP Reason for Referral * Home Health Care (Routine) Referred By Contact Referred To Contact Status Reason Specialty Diagnoses / Procedures Mary Pappas NP [address] [place] [address] Email: [email or web address] Open Specialty Services Home Health Diagnoses Required Services Leg fracture, left, closed, initial encounter Electronically signed by Mary Pappas TOOL TECHNICIAN at Reason for Visit * Reason Comments Fall * Auth/Cert Referred By Contact Referred To Contact Status Reason Specialty Diagnoses / Procedures Diagnoses Leg fracture, left, closed, initial encounter Akinesia Encounter Details Care Team Description Date Type Department Cr Anand MD [address] [place] [address] [phone] Shaggy Gilmore MD [address] [place] [address] [phone] Cr Nava MD [address] [facility] Room [address] [place] [address] [phone] Leg fracture, left, closed, initial enco unter (Primary Dx); Closed displaced oblique fracture of shaft of left tibia, initial encounter; Closed displaced oblique fracture of shaft of left fibula, initial encounter; Closed displaced fracture of medial malleolus of left tibia, initial encounter; Cigarette smoker; COVID-19 ruled out; Fall from bed, initial encounter; Bedroom of unspecified non-institutional (private) residence as the place of occurrence of the external cause 10/26/[address] ORTHOPEDICS INP ATIENT - Encounter 11/08/[address] [place] [address] Allergies No Known Active Allergiesdocumented as of this encounter (statuses as of 11/08/2020) Medications End Date Status Medication Sig Dispensed Refills Start Date Active busPIRone (BUSPAR) 10 MG Take 10 mg by 0 09/06 tablet mouth Two 1 Times Daily Active Gabapentin 800 MG Oral Take 800 mg 0 02 Tablet (NEURONTIN) by mouth 1 Three times daily Active Prazosin HCl 1 MG Oral Take 1 mg by 0 02 Capsule (MINIPRESS) mouth nightly 1 Active QUEtiapine Fumarate ER Take 200 mg 0 02 200 MG Oral Tablet by mouth 1 Extended Release 24 Hour nightly (SEROquel XR) Active Albuterol Sulfate HFA 108 Inhale 2 0 (90 Base) MCG/ACT puffs into Inhalation Aerosol the lungs Solution (PROVENTIL HFA) every 6 (six) hours as needed for Wheezing Active Vitamin D3 25 MCG (1000 Take 2,000 0 UT) Oral Tablet Units by (CHOLECALCIFEROL) mouth daily Active Docusate Sodium 100 MG Take 100 mg 0 Oral Capsule (COLACE) by mouth Two Times Daily Active Methadone HCl 10 MG/ML Take 145 mg 0 Oral Concentrate by mouth (DOLOPHINE) daily 11/18/2020 Active Acetaminophen 325 MG Oral Take 2 30 tablet 0 Tablet tablets by 1 mouth every 4 (four) hours as needed for up to 10 days 12/08/2020 Active hydrOXYzine HCl 50 MG Take 1 tablet 90 tablet 0 Oral Tablet (ATARAX) by mouth 1 every 6 (six) hours as needed for Anxiety 11/18/2020 Active Ibuprofen 200 MG Oral Take 3 120 tablet 0 08/0 Tablet (Advil) tablets by 1 mouth every 6 (six) hours as needed for Pain for up to 10 days 12/08/2020 Active traZODone HCl 50 MG Oral Take 1 tablet 30 tablet 0 Tablet (DESYREL) by mouth 1 nightly 11/18/2020 Active Cephalexin 500 MG Oral Take 1 40 capsule 0 Capsule (KEFLEX) capsule by 1 mouth every 6 (six) hours for 10 days 11/08/2021 Active Levothyroxine Sodium 175 Take 1 tablet 30 tablet 11 MCG Oral Tablet by mouth 1 (SYNTHROID) Daily 11/18/2020 Active bacitracin 500 UNIT/GM EX Apply to Left 15 g 0 ointment upper leg 1 incision 12/08/2020 Active buPROPion HCl ER (XL) 150 [...] Tablet Delayed Release by mouth 1 daily 11/08/2020 Discontinued (Stop Taking at Discharge) Benzonatate 200 MG Oral Take 200 mg 0 Capsule (TESSALON) by mouth 1 Three times daily as needed 11/08/2020 Discontinued (Stop Taking at Discharge) buPROPion HCl ER (XL) 150 Take 450 mg 0 07/0 202 MG Oral Tablet Extended by mouth 1 Release 24 Hour daily (WELLBUTRIN XL) 11/08/2020 Discontinued (Stop Taking at Discharge) traZODone HCl 100 MG Oral Take 100 mg 0 07/0 Tablet (DESYREL) by mouth 1 nightly 11/08/2020 Discontinued (Stop Taking at Discharge) guaiFENesin 200 MG Oral Take 200 mg 0 Tablet by mouth every 6 (six) hours as needed for Congestion 11/08/2020 Discontinued (Stop Taking at Discharge) Ibuprofen 800 MG Oral Take 800 mg 0 Tablet (MOTRIN) by mouth Three times daily as needed for Pain 11/08/2020 Discontinued (Stop Taking at Discharge) Levothyroxine Sodium 100 Take 150 mcg 0 MCG Oral Tablet by mouth (SYNTHROID) daily 11/08/2020 Discontinued (Stop Taking at Discharge) buPROPion HCl ER (XL) 450 Take 450 mg 30 tablet 0 MG Oral Tablet Extended by mouth 1 Release 24 Hour daily documented as of this encounter (statuses as of 11/08/2020) Active Problems Problem Noted Date Akinesia 10/27/2020 Leg fracture, left, closed, initial encounter 2020 documented as of this encounter (statuses as of 11/08/2020) Social History Date Tobacco Use Types Packs/Day Years Used Current Every Day Smoker Cigarettes 0.5 Smokeless Tobacco: Never Used Sex Assigned at Date Recorded Not on file Date Recorded COVID-19 Exposure Response 10/26/2020 6:22 PM EDT In the last month, have you been in contact with No / Unsure someone who was confirmed or suspected to have Coronavirus / COVID-19? documented as of this encounter Last Filed Vital Signs Reading Time Taken Comments Vital Sign 110/72 11/08/2020 11:10 AM EDT Blood Pressure 74 11/08/2020 11:10 AM EDT Pulse 36.9 C (98.4 F) 11/08/2020 11:10 AM EDT Temperature 16 11/08/2020 11:10 AM EDT Respiratory Rate 95% 11/08/2020 11:10 AM EDT Oxygen Saturation - - Inhaled Oxygen Concentration 113.4 kg (250 lb) 10/26/2020 5:57 PM EDT Weight 160 cm (5' 3") 10/26/2020 5:57 PM EDT Height 44.29 10/26/2020 5:57 PM EDT Body Mass Index documented in this encounter Discharge Instructions * Instructions* Mary Pappas NP - 10/31/2020 11:24 AM EDT Orthopedic discharge instructions: Touchdown weightbearing left lower extremity Keep dressing clean and dry intact until follow-up visit Enteric-coated aspirin 81 mg daily Follow-up with Dr. Ervin in 2 weeks [phone] Call your primary care provider and make them aware of this hospitalization. You were prescribed Keflex, it is an antibiotic take the mediation as ordered. documented in this encounter Progress Notes * Elfego Argueta RN - 11/08/2020 1:58 PM EDT AVS was reviewed with pt in room and agreeable to discharge plan. Pt has no IV a ccess. Dressing supplies sent home with pt and meds to beds delivered. Pt transp orted to discharge lounge via wheelchair. Safety precautions maintained. Elfego Argueta RN * Claudia Fournier RN - 11/08/2020 12:54 PM EDT CM notified that patient is ready for discharge to home today and pt is in agree ment. RW ordered and delivered to pt room to take home. She is aware of lookin g in to loan closets for shower chair and also doesn't think she will use it sin ce she has "done this before with her S.O. helping her into tub". Papa lozaday PH to start services tomorrow for PT/OT. Medicaid cab scheduled for 1:00pm. Ling Bales REWINDER OPERATOR HELPER trying to get a hold of supervisor mold shop at [facility] to confirm that t [facility] will start delivery of pt's Methadone tomorrow morning as they have done in the past. Pt has also had lock box for it [employer]. Cab postponed until 3:00pm since no confirmations received from [facility] yet. CM/ REWINDER OPERATOR HELPER cont to follow. REWINDER OPERATOR HELPER received confirmation from [facility] for delivery of pt's Methadone to start fo r tomorrow's dosing. Pt ready for discharge for 3:00pm taxi. * Elfego Argueta RN - 11/08/2020 12:51 PM EDT Pt is ALC status. Reviewed and agree with previous senior climate advisor. Pt is refusing bed alarm and fall precautions. Dressings changed. Call oseguera within reach. Elfego Argueta RN * Aditi Barber, PT - 11/08/2020 12:40 PM EDT Physical Therapy Acute Care Missed Visit Note Location: bedside Attempted to visit patient for therapy, but was unable for the following reasons: Treatment not completed secondary to scheduling conflict. Attempted at 11:40, but pt working with OT. Reattempted at 12:40, but pt eating lunch and receiving nursing care. (Therapist may be reached on Vocera) SESSION: Duration: 0 CHARGES: - CHARGE-IP PT PATIENT SCHEDULING CONFLICT 1 Units - ORDER - Physical Therapy Treatment 1 Units Total treatment minutes: 0.00 Minutes Electronically Signed by: Aditi Barber PT, DPT, 11/08/2020 1:12:32 PM * Irena Figueroa, OT - 11/08/2020 12:23 PM EDT Occupational Therapy Acute Care Treatment Note Medical Diagnosis: s/p IM Nail of left tibia shaft, closed treatment of fibula fracture with manipulation Rehabilitation Precautions/Restrictions: Per Orthopedic Progress note dated 10/29/20: "Toe touch weightbearing as tolerated to the LLE" Activity: OOB w/ assistance High fall risk Full code Goal Review Visit Number: 9 SUBJECTIVE Patient Report: HI, I need help getting ready Pain: Patient currently complains of pain. Location: LLE . Patient describes pain as Nonspecific. Verbal Scale: Patient reports a pain level of 9 out of 10. Pain Medication Today: yes. OBJECTIVE General Observation: Pt sitting upright in bed with nurseJORDEN. No bed alarm noted at start of session. Vital Signs: Stable. Range of Motion:No change observed. Strength:No change observed. Skin Integrity Screen: Josee wrap to LLE from mid-thigh to distal LE is clean, dry and intact Self Care/Home Management: Dressing - lower body: Modified [place]. Dressing - upper body: Modified [place]. Dressing completed sitting on the edge of the bed . Shopping: Minimal Assistance. Modified activity to challenge standing/sitting balance. Simulated task through packing belongings in bad in preparation for discharge, required assistance to hold bag and complete functional mobility . Splinting: No splint issued today. Cognitive Test Score: Not tested. Outcome Measures: [facility] AM-PAC "6 Clicks" Daily Activity Inpatient Short Form: Putting on and taking off regular lower body clothing: No assistance (4) Bathing (including washing, rinsing, and drying): A little assistance (3) Toileting (including use of toilet, bedpan, or urinal): No assistance (4) Putting on and taking off regular upper body clothing: No assistance (4) Taking care of personal grooming such as brushing teeth: A little assistance (3) Eating meals: No assistance (4) Raw Score: 22 /24 Interventions: Self Care/Home Management: Therapist facilitated pt to complete item retrieval in preparation for discharge later today. During this task, therapist graded cues to facilitate pt to develop safety awareness while packing herself, in addition to focusing on her ability to remain balanced with RW and maintaining WB precautions. Therapist continued to educate and use cues to assist the pt in developing increased safety awareness during the completion of self care tasks and functional mobility, and to utilize energy conservation strategies throughout her day. Therapist graded the self-care tasks both in standing and at edge of the bed to facilitate independence, increase strength and endurance during the completion of ADL routine. Education: Mode of education provided: Explanation. Audience: Patient. Education Provided: Plan of care, energy conservation and fall prevention strategies for home, role of home therapy services, safe mobility with rolling walker . Response: Applied knowledge. Verbalized understanding. ASSESSMENT Response to Visit: The session was tolerated well. Pt agreeable to therapy, and completed dressing routine and packing in preparation for discharge. Pt able to verbalize three strategies learned in therapy and how they will help her to stay safe at home. Therapist left pt sitting in recliner eating lunch, needs met. Call oseguera was in patient's reach at end of session. Pain: Yes, pain is unchanged from start of today's treatment. Goal review: Pt progressed to supervision with ADLs but still requires minimal assistance for IADLs and verbal cues for safety and awareness. PLAN Treatment Frequency, Duration and Interventions: Restorative Occupational Therapy recommended for 5x/week for 2 weeks Treatment is to include: Self Care/Home Management. Therapeutic Activity. Therapeutic Exercise. Development of Cognitive Skills. Equipment Provided: None issued this visit. Equipment Recommended: None. Recommended Occupational Therapy Follow Up: Upon acute care discharge, the following is currently recommended: Home Occupational Therapy. Recommended Consults: None currently. Development of Plan of Care: Participants included: Patient. Visit Number: Today's visit is number 9 Program: Orthopedics (Therapist may be reached on Cryoocyteera) SESSION: Duration: 23 CHARGES: 41147 - CHARGE - OT SELF CARE ADL TRAIN-15 MIN 2 Units - ORDER - Occupational Therapy Treatment 1 Units - ORTHOPEDIC VISIT 1 Units Total treatment minutes: 23.00 Minutes Electronically Signed by: FAVIOLA Oakes, 11/08/2020 1:23:48 PM * Ling Nagy LMSW - 11/08/2020 9:18 AM EDT TED spoke with [facility] per pt request to determine if methadone can be delivered to pt's boyfriend's residence, where she will be staying. Pt has fracture and felipa rosario lacks vehicle. TED spoke with staff who indicated [facility] mold [facility]. Pt to be discharged today. Will need methadone dosing a s of tomorrow 11/09 forward. SW to continue following. Addendum: TED confirmed with [facility] that they will deliver methadone to pt due to current fracture * Irena Figueroa OT - 11/08/2020 8:03 AM EDT Occupational Therapy Acute Care Missed Visit Note Location: Bedside. Attempted to visit patient for therapy, but was unable for the following reasons: Pt is currently eating breakfast and declined participation at this time. Will re-attempt later as schedule permits. (Therapist may be reached on Vocera) SESSION: Duration: 0 CHARGES: Total treatment minutes: Minutes Electronically Signed by: FAVIOLA Oakes, 11/08/2020 8:06:08 AM * Anne Walker NP - 11/07/2020 6:03 PM EDT Internal Medicine Inpatient Progress Note Length of stay- 12 Past Medical History: Diagnosis Date Anxiety Bronchitis, chronic Depression GERD (gastroesophageal reflux disease) Headache Substance abuse Thyroid disease Subjective: Anxious today bc she wants to leave. Did well with PT who recs home PT since juan j love will go home with her boyfriend otherwise Rehab is needed. She is very nohemy rned about how she will get her Methadone bc she will not be able to go to the [facility] every day until her leg is fully healed. Review of Systems Respiratory: Negative. Cardiovascular: Negative. Gastrointestinal: Negative. Genitourinary: Negative. Objective: Vitals: 11/07/20 1252 11/07/20 1254 11/07/20 1256 11/07/20 1600 BP: 131/88 (!) 120/93 122/87 117/75 BP Location: Left arm Patient Position: Lying Pulse: 89 Resp: 16 Temp: 37.1 C (98.8 F) TempSrc: Oral SpO2: 92% Weight: Height: Physical Exam Constitutional: General: She is not in acute distress. Cardiovascular: Rate and Rhythm: Normal rate and regular rhythm. Heart sounds: Normal heart sounds. Pulmonary: Effort: Pulmonary effort is normal. Breath sounds: Normal breath sounds. Abdominal: General: Bowel sounds are normal. Palpations: Abdomen is soft. Musculoskeletal: Comments: Dressing intact to LLE. The upper incision has less erythema today and just a small amt of drainage at the superior aspect of the incision. Left s ided toe touch ambulation with walker and standby assist. Skin: General: Skin is warm and dry. Capillary Refill: Capillary refill takes less than 2 seconds. Neurological: General: No focal deficit present. Mental Status: She is oriented to person, place, and time. Psychiatric: Mood and Affect: Mood normal. Thought Content: Thought content normal. Laboratory independently reviewed Recent Labs Lab 11/03/20 0644 11/06/20 0813 NA 136 140 K 4.1 3.8 CL 99 101 BICARBONATE 24 26 BUN 10 11 CREATININE 1.14* 1.12* GLUCOSE 106 112 No results for input(s): WBC, HGB, HCT, MCV, PLT, NEUTOPHILPCT, MONOPCT in the last 168 hours. Invalid input(s): EOSPCT Lab Results Component Value Date PROT 7.3 11/03/2020 ALBUMIN 4.2 11/03/2020 AST 17 11/03/2020 ALT <5 11/03/2020 TBILI 0.6 11/03/2020 ALKPHOS 93 11/03/2020 No results for input(s): INR in the last 168 hours. Invalid input(s): APT No results for input(s): CKTOTAL, TROPONINI, TROPONINT, CKMB, CK in the last 168 hours. Lab Results Component Value Date TSH 16.720 (H) 10/26/2020 IMAGING and LABS independently reviewed MEDICATIONS: Scheduled Meds: bacitracin Topical TID buPROPion 450 mg Oral Daily busPIRone 10 mg Oral BID cephalexin 500 mg Oral 4 times per day enoxaparin 40 mg Subcutaneous Daily gabapentin 800 mg Oral TID levothyroxine 175 mcg Oral Daily methadone 145 mg Oral Daily QUEtiapine 200 mg Oral Nightly trazodone 50 mg Oral Nightly Continuous Infusions: PRN Meds:.acetaminophen (TYLENOL) tablet, albuterol, hydroxzine, maalox/lidocain e/diphenhydrAMINE Anti-infectives (From admission, onward) Start Dose/Rate Route Frequency Ordered Stop 11/06/20 1200 cephALEXin (KEFLEX) capsule 500 mg 500 mg Oral 4 times per day 11/06/20 0901 11/13/20 1159 Assessment & Plan: Deborah Webb is a 40 y.o. female who is here for Principal Problem: Leg fracture, left, closed, initial encounter Active Problems: Akinesia # Left Tib/Fib Fracture s/p Fall - Pt sustained a fall which resulted in fx - Ortho performed ORIF on 10/28/20 - Upper incision/sd on Left leg with mild erythema. - Continue Keflex and bacitracin to incision - Oxycodone being used PRN with pain control - Has not had any falls while hospitalized and did well in the hallway today wit h PT using a walker and hopping on her right leg although last Ortho note on 10/05 7 says she can be toe touch as tolerated. - PT rec STR but none will accept pts on Methadone used for opioid addiction. # Recurrent Falls - Neuro consulted- CT Head WNL - Orthostatic BPs have been positive but improved. Caution with any new medicat ion additions. - Orthostasis vs Cough Syncope are suspected causes along with possible medicati on effects - Will cont to monitor as med changes are made. -Thus far her Prazosin has been dc'd and Trazadone decreased to 50mg as possible medication causes of orthostasis. # Chronic Opioid Dependence - Addiction Psych consulted early on in admission - Continues on her home Methadone 145mg every day and SW assisting in setting up her home sched for discharge # Stage 2 CKD - Cr stable at 1.12 # LEIF # PTSD # ADHD - Pt is upset that she was told she had Tardive Dyskinesia by Neurology - Psych following- they feel her presentation is more of Akathisia rather than T ardive Dyskinesia and can be worked up as an outpatient. - Per Psych- will increase her Atarax to 50mg po q6hr and dc the prn Seroquel as that may cause orthostasis. - Continue daily orthostatic BP checks # Hypothyroidism - continue home Synthroid # Sarcoidosis - sx not active at this time DVT Prophylaxis: LMWH Functional Impairment: moderate Code Status: Full Code Disposition: Pending STR Some portions of note this may have been copied from a previous note during admi ssion for the purposes of continuity of care. Details reviewed and edited as ap propriate. Anne Walker, MSN, ANP/[employer]LET[employer]-[facility] Medicine Service 11/07/2020 6:04 PM Associated attestation - Shaggy Gilmore MD - 11/07/2020 7:27 PM EDT I saw and evaluated the patient. Discussed with the non-physician practitioner and agree with the non-physician practitioner findings and plan as documented in their note. Improving, approaching date of discharge. Shaggy Gilmore MD * Ember Denise RN - 11/07/2020 4:00 PM EDT Patient verbalized frustration with nursing care specifically in relation to obt aining the drinks she has requested. Patient reports asking for "pepsi a million times". She also reported delays in receiving her medications. I reviewed her M AR with her and discussed what medications were available. Ms. Webb deferred t he tylenol at this time, but did request to take the atarax. Pepsi was obtained and given to the patient. Patient complaining of gum and tooth pain. Patient reports multiple areas of he r mouth "hurt so bad, and no one is taking this seriously". On exam patient mult iple teeth are missing, there are open areas on patients gums but no active blee ding. Multiple teeth have visible cavities. Discussed with patient limiting cold , sugary beverages and hard foods until discomfort in mouth resolves. Patient de ferred modifying her diet to soft, additionally deferred brushing her teeth at t his time. Patient was agreeable to using the sponge mouth swabs. * Ling Nagy LMSW - 11/07/2020 3:23 PM EDT SW notified by CM that pt had questions/concerns regarding methadone s/p dischar ge. SW spoke with [facility] via phone (pt signed ELENA previously). [facility] reports that pt can continue methadone after discharge and can continue to utilize the lockbox s ystem for staggered dosing. SW met with pt at bedside. Pt states she feels that she cannot make it to [facility] for dosing due to fracture. Pt states [facility] has previously delivered to her home when she is unable to present and will place methadone in lockbox. Pt will be s spring with boyfrienkinza Moss after discharge at [address] [place] [address]. SW left VM for [facility] to care plan further. SW to continue following. * Claudia Fournier RN - 11/07/2020 3:15 PM EDT TONNY spoke with Shena Shrestha, pt's TLS supported housing renal case manager. TONNY hilliard fax number to fax her the MD letter for a first floor apt. Shena states t hat the program is through [facility] who needs to give approval for this and they have always explained to the patient that in order to be in the program she has to h ave some sort of income and would at least need to apply for public assistance, of which pt doesn't want to do. Shena states they can't get her a better apt, d/t increased cost, unless she were to do what is needed on her end and apply. She will forward the letter to [facility] though for them to review. CM met with patient to discuss discharge planning and my conversation above. Wes belle states that she doesn't want to apply for PA and thinks that they should g doron her more suitable housing. CM let her know that she will have to f/u with th em after discharge about it. Patient confirmed that she is able to go to her boyfriends home at discharge and that they would like [facility] for home therapy. CM launched patient to [facility] for PT/OT and they are able to provid e SOC Thursday 11/09. Pt will need a Medicaid cab for transport home. CM confirmed with therapy that pt would benefit from RW, WC and shower chair. Insurance will only pay for one of the choice between RW and WC, PT stated RW would be more b eneficial for her. Pt does not have a preference as to DME vendor. CM spoke wit keisha Nagy REWINDER OPERATOR HELPER who will update [facility] to make sure services are all set f or her lock box to get Methadone. CM updated Team 5 and plan to discharge patie nt tomorrow. CM to f/u in the morning. * Deborah Alegria RN - 11/07/2020 10:57 AM EDT Assumed care of pt from [id number]. Agree with previous senior climate advisor. Any change s documented in flowsheets. * Precious Ricketts PT - 11/07/2020 9:37 AM EDT Physical Therapy Acute Care Treatment Note Medical Diagnosis: s/p fall from standing Left mid shaft tibia fracture comminuted with segmental fibula fracture Procedure(s) performed 10/28/20: 1. IM nail of left tibial shaft fracture. 2. Closed treatment of left fibular fracture with manipulation. Rehabilitation Precautions/Restrictions: Per Orthopedic Progress note dated 10/29/20: "Toe touch weightbearing as tolerated to the LLE" Activity: OOB w/ assistance High fall risk Full code Goal Review Visit Number: 1 SUBJECTIVE Patient Report: Pt initially agreeable to PT session, then reports that she wishes to watch TV and drink coffee instead Pain: Patient has no complaints of pain currently. Pain Medication Today: yes. OBJECTIVE General Observation: Pt received supine in bed. NAD. No bed alarm noted at start of session. Vital Signs: Pt asymptomatic throughout session Range of Motion:No change observed. Strength:No change observed. Skin Integrity Screen: Josee wrap to LLE from mid-thigh to distal LE is clean, dry and intact Functional Status: Transfers: Patient transferred sit to/from stand with modified independence. Patient used the following equipment: rolling walker. Bed Mobility: Patient moves from supine to/from sit with independence. Locomotion/Wheelchair: Not assessed. Locomotion/Gait/Ambulation: Patient was modified independent with gait/ambulation for 3 steps x 1 . Patient requires the following assistive device(s): Rolling walker. Orthopedic precautions maintained. Stairs: Not assessed. Outcome Measures: [facility] AM-PAC "6 Clicks" Basic Mobility Inpatient Short Form: Turning over in bed: No difficulty (4) Sitting down on and standing up from a chair with arms: No difficulty (4) Moving from lying on back to sitting on the side of the bed: No difficulty (4) Moving to and from a bed to a chair (including a wheelchair): No help (4) Walking in hospital room: No help (4) Climbing 3-5 steps with a railing: A little help (3) Raw Score 23 /24. Interventions: Therapeutic Activities: Discussed performance of stair negotiation utilizing bumpnig technique to facilitate improved independence and safety in preparation for discharge home. Pt initially agreeable, demonstrating independence in transfers and taking a few steps in room. Able to don pants in preparation. Stair well set up with step stool and standard height chair. Pt then reports that she no longer wishes to participate in task. Educated on benefits of participation, including to improve safety and strength and to ensure appropriate assistance is available and equipment is obtained, if needed. However, pt request to defer to later session. Education: Mode of education provided: Demonstration. Explanation. Audience: Patient. Education Provided: Treatment Plan. Safety. Response: Indicates understanding. ASSESSMENT Response to Visit: The session was tolerated fair, as evidenced by: Pt initially agreeable to perform stair negotiation task this morning. Then reports frustration as she states that she wishes to watch TV and drink coffee. Educated regarding importance of participation to facilitate safe discharge with pt reporting understanding. However, requesting to speak to charge nurse who arrives and discusses importance of particpation. At end of session, pt supine in bed. All needs met. Call oseguera within reach. Pain: Patient has no complaints of pain currently. Goal review: Short Term Goals: 1. Patient will independently perform a supine to sit transfer to the edge of the bed within 1 week. Status: Goal met 2. Patient will perform a sit to stand transfers to a rolling walker with modified independence within 1 week. Status: Goal met 3. Patient will ambulate 50ft with a rolling walker with modified independence within 1 week. Status: Goal Ongoing - has ambulated <50 feet with modified independence. >50 feet with contact guard assist Nursing Home Goals: 1. Patient will negotiate 2 flight of stairs with modified independence wihtin 2 weeks. Status: Goal ongoing- pt able to ascend 1 flight of stairs with assistance 2. Patient will independently self propel manual wheelchair 150ft wihtin 2 weeks. Status: Ongoing - able to propel 200 feet with supervision when last trialed- not trialed this session Changes in or Continuation of Plan of Care: Patient will benefit from continued therapy to achieve planned goals. PLAN Treatment Frequency, Duration and Interventions: Restorative Physical Therapy is recommended for 1-2x a day for 2 weeks. Treatment is to include: Gait Training. Therapeutic Activity. Therapeutic Exercise. Neuromuscular Re-education. Self Care/Home Management. Equipment Provided: None issued this visit. Equipment Recommended: Rolling walker. Pt may also benefit from manual wheelchair with deni elevating leg rests. . Recommended Physical Therapy Follow Up: Upon acute care discharge, the following is currently recommended: Rehab vs Home with assistance on stairs and home PT Recommended Consults: None currently. Development of Plan of Care: Participants included: Ammonia Print Operator Nurse. Patient. Visit Number: Today's visit is number 11 Program: Orthopedics (Therapist may be reached on [place] [employer]) SESSION: Duration: 16 CHARGES: 04337 - CHARGE - PT THERAPEUTIC ACTIVITIES - 15 MIN 1 Units - ORDER - Physical Therapy Treatment 1 Units - ORTHOPEDIC VISIT 1 Units Total treatment minutes: 16.00 Minutes Electronically Signed by: Precious Ricketts PT, DPT, 11/07/2020 1:36:56 PM * Irena Figueroa, OT - 11/07/2020 9:05 AM EDT Occupational Therapy Acute Care Encounter Note Medical Diagnosis: s/p IM Nail of left tibia shaft, closed treatment of fibula fracture with manipulation Rehabilitation Precautions/Restrictions: Per Orthopedic Progress note dated 10/29/20: "Toe touch weightbearing as tolerated to the LLE" Activity: OOB w/ assistance High fall risk Full code Goal Review Visit Number: 8 SUBJECTIVE Patient Report: Good morning, what are we doing today? Pain: Patient currently complains of pain. Location: LLE . Patient describes pain as Nonspecific. Verbal Scale: Patient reports a pain level of 7 out of 10. Pain Medication Today: yes. OBJECTIVE General Observation: Pt laying in bed watching TV, awake and alert. Bed alarm was on at start of session. Skin Integrity Screen: Josee wrap to LLE from mid-thigh to distal LE. Quarter-sized bruise to LLE above bandage. Berthoud visible on LLE above and below knee; mild erythema to periwound above knee Vital Signs: Stable. Self Care/Home Management: Task: Task: Bathing: Supervision. Completed sitting at edge of the bed, and standing at the sink to wash hair.Required cues for safety and balance at sink. Modified activity to challenge standing/sitting balance. Dressing - upper body: Modified [place]. Dressing - lower body: Modified [place]. Provided: Limited external distractions to improve attention to task. Bed making: Moderate Assistance. Provided minimal number of cues to facilitate processing of organizing and/or completing task. Modified activity to challenge standing/sitting balance. Provided: Splinting: No splint issued today. Cognitive Test Score: Not tested. Outcome Measures: [facility] AM-PAC "6 Clicks" Daily Activity Inpatient Short Form: Putting on and taking off regular lower body clothing: No assistance (4) Bathing (including washing, rinsing, and drying): A little assistance (3) Toileting (including use of toilet, bedpan, or urinal): No assistance (4) Putting on and taking off regular upper body clothing: No assistance (4) Taking care of personal grooming such as brushing teeth: No assistance (4) Eating meals: No assistance (4) Raw Score: 23 /24 Interventions: Self Care/Home Management: Therapist facilitated pt to complete item retrieval in preparation for morning self care routine. During todays sessions, therapist added on the task of making the bed to work on IADLs and her ability to manipulate materials while remaining balanced, maintaining WB precautions, and staying safe. Therapist educated and cued pt to utilize strategies to increase safety awareness prior to completion of self care tasks and functional mobility to look around the environment, and create a safe plan, then complete task. Therapist graded the self-care tasks both in standing and at edge of the bed to facilitate independence, increase strength and endurance during the completion of ADL routine. Throughout the session, therapist graded and decreased verbal cues for sequencing, and safety awareness to increase pt insight in preparation for living alone at home. While completing functional mobility to make the bed, pt noted that this task overwhelms her and she didn't feel safe doing it, therapist graded verbal and physical assistance to provide support and encouragement. Education: Mode of education provided: Demonstration. Explanation. Audience: Patient. Education Provided: Role of OT, purpose of theraputic self care tasks, adaptive techniques to complete bed making task, energy conservation strategies, safe mobility using rolling walker and navigating around the room similar to as she would at home to build independence and safety. . Response: Applied knowledge. Requires cues (auditory/physical). Needs practice/reinforcement. ASSESSMENT Response to Visit: The session was tolerated fair, as evidenced by: Pt is demonstrating some improvement in safety awareness through her ability to scan environment and plan movements to ensure safety prior to moving to complete self care tasks. However when upset or frustrated, pt is more impulsive and requires increased cues and support to regain focus and to calm down. Pt required increased physical assistance completing bed making IADL, reporting that she did not feel confident or safe while moving, therapist provided increased physical assistance to complete task. Bed alarm was on at end of session. Call oseguera was in patient's reach at end of session. Pain: Yes, pain is unchanged from start of today's treatment. PLAN Treatment Frequency, Duration and Interventions: Restorative Occupational Therapy recommended for 5x/week for 2 weeks Treatment is to include: Development of Cognitive Skills. Self Care/Home Management. Therapeutic Activity. Therapeutic Exercise. Recommended Occupational Therapy Follow Up: Upon acute care discharge, the following is currently recommended: Rehab vs. home with assistance for IADLs pending progress with therapy Visit Number: Today's visit is number 8 Program: Orthopedics (Therapist may be reached on [employer]) SESSION: Duration: 54 CHARGES: 71646 - CHARGE - OT SELF CARE ADL TRAIN-15 MIN 4 Units - ORDER - Occupational Therapy Treatment 1 Units - ORTHOPEDIC VISIT 1 Units Total treatment minutes: 53.00 Minutes Electronically Signed by: URSULA Oakes/Fadi, 11/07/2020 11:50:19 AM * Precious Ricketts, PT - 11/07/2020 8:37 AM EDT Physical Therapy Acute Care Missed Visit Note Location: bedside Attempted to visit patient for therapy, but was unable for the following reasons: Pt currently participating in skilled Occupational Therapy session. Will follow up, as time permits. (Therapist may be reached on V[employer]) SESSION: Duration: 0 CHARGES: Total treatment minutes: Minutes Electronically Signed by: Precious Ricketts PT, DPT, 11/07/2020 8:38:27 AM * Brittanie Cai RN - 11/07/2020 12:56 AM EDT Patient ALC status as of 11/05/20. Overhead Cleaner assumes care of patient from [phone] a nd agrees with previous senior climate advisor unless documented otherwise, will update a ssessment documentation as needed. * Claudia Fournier RN - 11/06/2020 3:25 PM EDT CM met with patient to discuss discharge planning. CM updated her that there ar e still no STR's that are able to take her and that we are focusing more on a ho me plan at this time. Pt states that she is frustrated with having to stay in [facility] and said that she can just go up her stairs on her bottom. CM explai halima the need to be safe upon discharge so she doesn't have to come back in. Brianna silver states that something spilled on her letter that the MD gave her for [facility], CM will get another letter and fax to Shena at [facility] supportive Housing. Sloane fran states that Shena's phone number is [phone]. CM tried to call but it kept ringing, no answer or VM. CM spoke with her about talking with her boyfrien d again to see if she can stay with him for about a week or so for some support/ assistance and d/t less stair negotiation. Patient states that she already has the lock box set up through [employer] for her Methadone to limit the number of time s she has to leave her home. CM to continue to try to get a hold of Shena to fax pt's MD letter to her and s peak to her about housing. CM to follow. * Deborah Alegria RN - 11/06/2020 1:25 PM EDT Assumed care of pt from [phone]. Agree with previous senior climate advisor. Any change s noted in flowsheets. * Precious Ricketts, PT - 11/06/2020 1:16 PM EDT Physical Therapy Acute Care Treatment Note Medical Diagnosis: s/p fall from standing Left mid shaft tibia fracture comminuted with segmental fibula fracture Procedure(s) performed 10/28/20: 1. IM nail of left tibial shaft fracture. 2. Closed treatment of left fibular fracture with manipulation. Rehabilitation Precautions/Restrictions: Per Orthopedic Progress note dated 10/29/20: "Toe touch weightbearing as tolerated to the LLE" Activity: OOB w/ assistance High fall risk Full code Goal Review Visit Number: 10 SUBJECTIVE Patient Report: Pt reports no new updates Pain: Patient has no complaints of pain currently. Pain Medication Today: yes. OBJECTIVE General Observation: Pt received supine in bed. NAD. Agreeable to PT session No bed alarm noted at start of session. Vital Signs: Pt asymptomatic throughout session Range of Motion:No change observed. Strength:Not assessed. Skin Integrity Screen: Josee wrap to LLE from mid-thigh to distal LE. Quarter-sized bruise to LLE above bandage. Berthoud visible on LLE above and below knee; mild erythema to periwound above knee Functional Status: Transfers: Patient transferred sit to/from stand with modified independence. Patient used the following equipment: rolling walker. Bed Mobility: Patient moves from supine to/from sit with independence. Locomotion/Wheelchair: Not assessed. Locomotion/Gait/Ambulation: Patient was modified independent with gait/ambulation for approximately 30 feet x 1 and 10 feet x 1 . Patient requires the following assistive device(s): Rolling walker. Gait belt. Pt maintains TDWB L LE. Stairs: Patient was modified independent for 3 steps up and down x 1 . Patient used the following equipment: Bilateral Railing. Maintains NWB L LE. Pt additionally able to ascend/descend 1 step with use of unilateral crutch and unilateral rail with contact guard assist. Additional negotiation limited as pt reports that she does not feel steady with crutch. Pt declines bumping this session, but agreeable next session. Outcome Measures: [facility] AM-PAC "6 Clicks" Basic Mobility Inpatient Short Form: Turning over in bed: No difficulty (4) Sitting down on and standing up from a chair with arms: No difficulty (4) Moving from lying on back to sitting on the side of the bed: No difficulty (4) Moving to and from a bed to a chair (including a wheelchair): No help (4) Walking in hospital room: No help (4) Climbing 3-5 steps with a railing: A little help (3) Raw Score 23 /24. Interventions: Gait Training: Pt able to ambulate in room, while maintaining TDWB precautions and demonstrate independence with regard to transfers from bed and toilet. Pt transported to gym to farcilite stair negotiation, as she reports feeling that this remains main barrier to going home. Therapist demonstrated sequencing and body positioning on steps with use of unilateral rail and unilateral crutch. Pt attempts x 2 but reports discomfort with task secondary to feeling unsteady. Therapist encouraged pt to utilize deni rail to build confidence with pt able to ascend/descend steps with cues for pacing. Pt then encouraged to utilize unilateral rail and unilateral crutch to simulate home environment with pt able to negotiate x 1. Discussed performance of bumping method with pt requesting to defer to next session Education: Mode of education provided: Demonstration. Explanation. Audience: Patient. Education Provided: Importance of activity. Mobility Techniques. Role of Physical Therapy. Treatment Plan. Safety. Response: Indicates understanding. ASSESSMENT Response to Visit: The session was tolerated fair, as evidenced by: Primary barrier to return home remains stairs. Pt reports that she may possibly be able to stay with boyfriend upon return home. Encouraged to reach out to boyfriend. At end of session, pt supine in bed. All needs met. Call oseguera within reach. Pain: Patient has no complaints of pain currently. Goal review: Pt continues to require assistance with stair negotiation Changes in or Continuation of Plan of Care: Patient will benefit from continued therapy to achieve planned goals. PLAN Treatment Frequency, Duration and Interventions: Restorative Physical Therapy is recommended for 1-2x a day for 2 weeks. Treatment is to include: Gait Training. Therapeutic Activity. Therapeutic Exercise. Neuromuscular Re-education. Self Care/Home Management. Equipment Provided: None issued this visit. Equipment Recommended: Rolling walker. Recommended Physical Therapy Follow Up: Upon acute care discharge, the following is currently recommended: Pt may benefit from rehab vs home with assistance on stairs and home PT when cleared by physician Recommended Consults: None currently. Development of Plan of Care: Participants included: Ammonia Print Operator Nurse. Patient. Visit Number: Today's visit is number 11 Program: Orthopedics (Therapist may be reached on Voc[employer]) SESSION: Duration: 23 CHARGES: 82039 - CHARGE - PT GAIT TRNG - 15 MIN 2 Units - ORDER - Physical Therapy Treatment 1 Units - ORTHOPEDIC VISIT 1 Units Total treatment minutes: 23.00 Minutes Electronically Signed by: Precious Ricketts PT, DPT, 11/07/2020 7:53:13 AM * Precious Ricketts, PT - 11/06/2020 1:00 PM EDT Physical Therapy Acute Care Encounter Note Medical Diagnosis: S/p fall from standing Left mid shaft tibia fracture comminuted with segmental fibula fracture Procedure(s) performed 10/28/20: 1. IM nail of left tibial shaft fracture. 2. Closed treatment of left fibular fracture with manipulation. Rehabilitation Precautions/Restrictions: Per Orthopedic Progress note dated 10/29/20: "Toe touch weightbearing as tolerated to the LLE" Activity: OOB w/ assistance High fall risk Full code Goal Review Visit Number: 1 SUBJECTIVE Patient Report: Pt reports no new updates Pain: Patient has no complaints of pain currently. Pain Medication Today: yes. OBJECTIVE General Observation: Pt received supine in bed. NAD. Agreeable to PT session No bed alarm noted at start of session. Skin Integrity Screen: Josee wrap to LLE from mid-thigh to distal LE. Vital Signs: Pt asymptomatic throughout session Functional Status: Transfers: Patient transferred sit to/from stand with modified independence. Patient used the following equipment: rolling walker. Patient used the following equipment: Gait belt - use per hospital policy. Bed Mobility: Patient moves from supine to/from sit with independence. Locomotion/Gait/Ambulation: Patient was modified independent with gait/ambulation for approximately 50 feet x 1 and 30 feet x 1 . Patient requires the following assistive device(s): Rolling walker. Gait belt. Pt able to maintain TDWB L LE Stairs: Patient was stand by assistance for 10 steps up and down x 1 and 5 steps up and down x 1 . Patient used the following equipment: Pt utilizes unilateral rail to lower self on stairs and to stand from seated position on stairs. Bumping technique utilized. No evidence of overt loss of balance. . Outcome Measures: [facility] AM-PAC "6 Clicks" Basic Mobility Inpatient Short Form: Turning over in bed: No difficulty (4) Sitting down on and standing up from a chair with arms: No difficulty (4) Moving from lying on back to sitting on the side of the bed: No difficulty (4) Moving to and from a bed to a chair (including a wheelchair): No help (4) Walking in hospital room: No help (4) Climbing 3-5 steps with a railing: A little help (3) Raw Score 23 /24. Interventions: Gait Training: Pt able to demonstrate independence with regard to transfers and ambulation in room/ hallway. Additionally able to don pants prior to session and doff following session without assistance. Therapist simulated home setup in stair well with step stool and standard height chair at top of steps at start of session. Therapist then demonstrated technique/ sequencing for lowering self onto step and standing at top/ bottom of steps. Pt then able to return demonstrate during two bouts. Second bout completed with pt carrying rolling walker in L hand. Discussed availability of support with pt reporting that she will have support available at all times on steps. Trialed stair negotiation of stair negotiation with use of unilateral rail and unilateral crutch with pt reporting increased fear, requesting not to perform. Education: Mode of education provided: Demonstration. Explanation. Audience: Patient. Education Provided: Importance of activity. Mobility Techniques. Role of Physical Therapy. Treatment Plan. Safety. Orthopedic precautions. . Response: Indicates understanding. ASSESSMENT Response to Visit: The session was tolerated well. Pt does not demonstrate any evidence of overt loss of balance during session including transfers, ambulation, stair negotiation or donning/doffing of pants. She is able to maintain TDWB throughout without cuing. Pt reports understanding of stair negotiation techniques and setup of step stool/ chair as well as importance of having person with her as she completes task. Pt does appear to demonstrate some baseline emotional lability/ impulsivity. However, she reports no concerns regarding return home. At end of session, pt seated in bedside chair. All needs met. Call oseguera within reach. Chair alarm was on at end of session. Pain: Patient has no complaints of pain currently. PLAN Treatment Frequency, Duration and Interventions: Restorative Physical Therapy is recommended for 1-2x a day for 2 weeks. Treatment is to include: Gait Training. Therapeutic Activity. Therapeutic Exercise. Neuromuscular Re-education. Self Care/Home Management. Recommended Physical Therapy Follow Up: Upon acute care discharge, the following is currently recommended: Home with assistance on stairs and home PT Equipment Provided: None issued this visit. Visit Number: Today's visit is number 12 Program: Orthopedics (Therapist may be reached on [place] [employer]) SESSION: Duration: 39 CHARGES: 81620 - CHARGE - PT GAIT TRNG - 15 MIN 2 Units - ORTHOPEDIC VISIT 1 Units Total treatment minutes: 25.00 Minutes Electronically Signed by: Precious Ricketts PT, DPT, 11/07/2020 1:23:37 PM * Anne Walker NP - 11/06/2020 12:11 PM EDT Brief Progress Note: Pt is now ALC status. Keflex has been added to her med regime for possible infe ction of her upper left leg incision. EXAM: HEART: RRR LUNGS: CTA EXT: Left upper leg incision with mild erythema, no drainage MOOD: Irritated by the constant movement of her legs. A/P: # Left Tib/Fib Fracture s/p Fall - ORIF on 10/28/20 - Continues with PT/OT # Chronic Opioid Dependence # Depression # Akathisia - Psych has signed off - Will need to continue with inpt PT/OT for rehab, as STR will not accept pts on Methadone for opioid addiction tx - Akathisia- per Psych can be worked up as an outpt # Orthostatic Hypotension with Presyncopal Events - No syncopal episodes since hospitalized - Neuro recs- -Considering an episode of hypotension and tachycardia on orthosta tics, referral for autonomic testing ordered. (Testing is done at [address]) -Recommend monitoring orthostatics, adequate hydration # Stage 2 CKD - Cr stable at 1.12 Anne Walker, MSN, ANP/[employer] [facility] 11/06/2020 12:11 PM Associated attestation - Shaggy Gilmore MD - 11/06/2020 5:53 PM EDT I saw and evaluated the patient. Discussed with the non-physician practitioner and agree with the non-physician practitioner findings and plan as documented in their note. Added Keflex given continued erythema around upper leg incision. Shaggy Gilmore MD * Alf Bojorquez DO - 11/06/2020 9:42 AM EDT Patient has been converted to ALC status as of 11/05. At this time, psychiatry h as no further recommendations, and will be signing off. Please do not hesitate t o reach out to us with questions. Please feel free to contact me with any questions or concerns regarding this pat ient's care. Alf Bojorquez DO, MPH Psychiatry, PGY2 he/him/his Associated attestation - Karl Newman MD - 11/06/2020 10:05 PM EDT Deborah Webb was not seen by this provider, but was discussed in real time w ith the resident intern (Dr. Bojorquez) in my capacity as Attending of Record ( AOR). I am in agreement with the plan as they are presently constituted in their note. * Irena Figueroa, OT - 11/06/2020 9:15 AM EDT Occupational Therapy Acute Care Treatment Note Medical Diagnosis: s/p IM Nail of left tibia shaft, closed treatment of fibula fracture with manipulation Rehabilitation Precautions/Restrictions: Per Orthopedic Progress note dated 10/29/20: "Toe touch weightbearing as tolerated to the LLE" Activity: OOB w/ assistance High fall risk Full code Goal Review Visit Number: 7 SUBJECTIVE Patient Report: "Im sad today" Pain: Patient currently complains of pain. Location: LLE . Patient describes pain as Nonspecific. Verbal Scale: Patient reports a pain level of 8 out of 10. Will perform therapy only as tolerated. Pain Medication Today: yes. OBJECTIVE General Observation: Pt laying in bed, awake and alert. Bed alarm was on at start of session. Vital Signs: Stable. Range of Motion:No change observed. Strength:No change observed. Skin Integrity Screen: Josee wrap to LLE from mid-thigh to distal LE. Quarter-sized bruise to LLE above bandage. [place] visible on LLE above and below knee; mild erythema to periwound above knee Self Care/Home Management: Grooming: Modified [place]. Modified activity to challenge standing/sitting balance. Task: Item retrieval for self care tasks: supervision, some verbal cues required for safety awareness and insight. Provided: Toilet transfer: Modified [place]. Toileting: Modified [place]. Bathing: Modified [place]. Completed sitting at the edge of the bed . Dressing - lower body: Modified [place]. Dressing - upper body: Modified [place]. Sitting at the edge of the bed . Splinting: No splint issued today. Cognitive Test Score: Not tested. Outcome Measures: [facility] AM-PAC "6 Clicks" Daily Activity Inpatient Short Form: Putting on and taking off regular lower body clothing: No assistance (4) Bathing (including washing, rinsing, and drying): No assistance (4) Toileting (including use of toilet, bedpan, or urinal): No assistance (4) Putting on and taking off regular upper body clothing: No assistance (4) Taking care of personal grooming such as brushing teeth: No assistance (4) Eating meals: No assistance (4) Raw Score: Interventions: Self Care/Home Management: Therapist facilitated pt to complete item retrieval in preparation for morning self care routine. Therapist educated and cued pt to utilize strategies to increase safety awareness prior to completion of self care tasks and functional mobility to create a safe plan, then complete task. Therapist graded the self-care tasks both in standing and at edge of the bed to facilitate independence, increase strength and endurance during the completion of ADL's. Throughout the session, therapist graded and decreased verbal cues for sequencing, and safety awareness to increase pt insight in preparation for living alone at home, pt required two additional cues but demonstrated increased ability to complete routine safely. Therapist also educated and facilitated pt to utilize energy conservation strategies when completing self-care routine. Additionally, throughout the session pt verbalized that she was unhappy in the hospital and wanted to be independent, therapist educated pt on deep breathing techniques for relaxation, and explained hospital policy regarding independence and fall risk. Education: Mode of education provided: Explanation. Audience: Patient. Education Provided: Role of OT, plan of care, energy conservation, skills to increase safety awareness during completion of ADL routine, benefits of having a equipment operating engineer at home . Response: Applied knowledge. Requires cues (auditory/physical). ASSESSMENT Response to Visit: The session was tolerated well. Pt demonstrated improved safety awareness and planning as evidenced by decreased need for verbal cues from therapist. Pt applied safety mobility and transfer techniques discussed in the previous session. Pt also tolerated increased functional mobility and transfers with a rolling walker, demonstrating improved endurance and strength. Therapist left pt with needs met sitting in bed. Bed alarm was on at end of session. Call oseguera was in patient's reach at end of session. Pain: Yes, pain is unchanged from start of today's treatment. Goal review: Short Term Goals: 1. Pt will improve upper extremity muscle strength by one grade within 1 week. Status: Ongoing. Pt participating in functional activities to improve UE strength. 2. Pt will complete toilet transfer with modified independence and AE as needed for safety within 1 week Status: Pt has met this goal, using one grab bar and rolling walker to complete safely. Nursing Home Goals: 1. Pt will complete full body ADLs including item retrieval with modified independence within 2 weeks Status: Ongoing. Pt required some assistance in item retrieval for ADL routine, but completed task with modified independence at edge of bed. Pt continues to benefit from therapy to ensure safety during these tasks. PLAN Treatment Frequency, Duration and Interventions: Restorative Occupational Therapy recommended for 5x/week for 2 weeks Treatment is to include: Development of Cognitive Skills. Self Care/Home Management. Therapeutic Exercise. Therapeutic Activity. Equipment Provided: None issued this visit. Equipment Recommended: Seed Mill Superintendent, pt reported her friend can pick her up one. . Recommended Occupational Therapy Follow Up: Upon acute care discharge, the following is currently recommended: Rehab vs home pending progress with PT and OT Recommended Consults: None currently. Development of Plan of Care: Participants included: Ammonia Print Operator Visit Number: Today's visit is number 7 Program: Orthopedics (Therapist may be reached on [place] [employer]) SESSION: Duration: 39 CHARGES: - ORDER - Occupational Therapy Treatment 1 Units 83106 - CHARGE - OT SELF CARE ADL TRAIN-15 MIN 3 Units - ORTHOPEDIC VISIT 1 Units Total treatment minutes: 39.00 Minutes Electronically Signed by: URSULA Oakes/L, 11/06/2020 11:17:25 AM * Brittanie Cai RN - 11/05/2020 10:41 PM EDT Patient ALC status as of 11/05/20. Overhead Cleaner assumes care of patient from [phone] a nd agrees with previous senior climate advisor unless documented otherwise, will update a ssessment documentation as needed. * Shannon Linton PT - 11/05/2020 3:57 PM EDT Physical Therapy Acute Care Missed Visit Note Location: bedside Attempted to visit patient for therapy, but was unable for the following reasons: Attempted to see patient at 15:55, however MD team present and discussing pt treatment plan. Will continue to follow pending patient status & schedule availability. (Therapist may be reached on Vocera) SESSION: Duration: 0 CHARGES: - ORDER - Physical Therapy Treatment 1 Units Total treatment minutes: 0.00 Minutes Electronically Signed by: Shannon Linton PT, DPT, 11/05/2020 3:58:02 PM * Deborah Suarez RN - 11/05/2020 3:16 PM EDT [facility] worked with UR RN (Vicki Cloud), and patient is ALC appropriate as of 11/05/2020. Di eva plan is for STR, but the barrier is the methadone. Patient has been ref erred to multiple counties of SNF, but no current bed offer. She continues to w ork with PT/OT. Dr. Gilmore is in agreement with ALC. * Shannon Linton PT - 11/05/2020 12:32 PM EDT Physical Therapy Acute Care Encounter Note Medical Diagnosis: s/p fall from standing Left mid shaft tibia fracture comminuted with segmental fibula fracture Procedure(s) performed 10/28/20: 1. IM nail of left tibial shaft fracture. 2. Closed treatment of left fibular fracture with manipulation. Rehabilitation Precautions/Restrictions: Per Orthopedic Progress note dated 10/29/20: "Toe touch weightbearing as tolerated to the LLE" Activity: OOB w/ assistance High fall risk Full code Goal Review Visit Number: 9 SUBJECTIVE Patient Report: Patient reports she really wants to be independent in her room. States she is really trying hard to get better & get out of the hospital. Pain: Patient currently complains of pain. Location: LLE . Patient describes pain as Nonspecific. Verbal Scale: Patient reports a pain level of 7 out of 10. Will inform nurse. Will instruct in relaxation techniques. Will perform therapy only as tolerated. Pain Medication Today: yes. OBJECTIVE General Observation: Patient received sitting upright in bedside chair, + PIV RUE, + josee bandage LLE. Chair alarm was on at start of session. Skin Integrity Screen: Josee wrap to LLE from mid-thigh to distal LE. Quarter-sized bruise to LLE above bandage. Sd visible on LLE above and below knee; mild erythema to periwound above knee Vital Signs: Stable. Functional Status: Transfers: Patient transferred sit to/from stand with modified independence. Patient used the following equipment: Gait belt - use per hospital policy. Patient used the following equipment: rolling walker. Maintains TTWB LLE. Bed Mobility: Not assessed this date secondary to patient being received / returned to bedside chair this date. Locomotion/Gait/Ambulation: Patient was modified independent with gait/ambulation for device(s): Gait belt. Rolling walker. Maintains TDWB LLE. Multiple quick / short advancements followed by frequent rest breaks. Stairs: Patient was requiring supervision for 12 steps . Patient used the following equipment: Bilateral Railing. Gait belt - use per hospital policy. Step-to negotiation with significant use of bilat UE. Requires verbal cues to slow movements to maximize safety. Patient also was contact guard assist of 1 person for 3 steps . Patient used the following equipment: Unilateral Railing. Axillary Crutches. Step-to navigation. Required significant cuing for proper crutch advancement. Outcome Measures: [facility] AM-PAC "6 Clicks" Basic Mobility Inpatient Short Form: Turning over in bed: A little difficulty (3) Sitting down on and standing up from a chair with arms: A little difficulty (3) Moving from lying on back to sitting on the side of the bed: A little difficulty (3) Moving to and from a bed to a chair (including a wheelchair): A little help (3) Walking in hospital room: A little help (3) Climbing 3-5 steps with a railing: A little help (3) Raw Score 18 /24. Interventions: Gait Training: Facilitated ambulation this date to improve safety adherence, decrease impulsivity with movement, and decrease fall risk. Provided verbal & tactile cues to decrease dinh of ambulation to decrease fatigue levels. Encouraged patient to participate in teach-back method for safe stair navigation with use of single axillary crutch to improve adherence to orthopedic precautions & safety awareness. Provided assistance as needed as patient navigated 12 stairs with minimal safety risks. Education: Mode of education provided: Explanation. Audience: Patient. Education Provided: Decreasing speed of mobility to decrease risk of falling / losing balance. . Response: Verbalized understanding. Needs practice/reinforcement. ASSESSMENT Response to Visit: The session was tolerated well. Patient able to tolerate increased number of stair navigation while requiring decreasing assistance. Continues to require cuing for safety awareness (although less than previous sessions). Continues to have difficulty with navigation of stairs with A.D. secondary to anxiety/fear. Chair alarm was on at end of session. Call oseguera was in patient's reach at end of session. Pain: Yes, pain is unchanged from start of today's treatment. PLAN Treatment Frequency, Duration and Interventions: Restorative Physical Therapy is recommended for 1-2x a day for 2 weeks. Treatment is to include: Gait Training. Neuromuscular Re-education. Therapeutic Activity. Therapeutic Exercise. Physical Performance Test. Self Care/Home Management. Recommended Physical Therapy Follow Up: Upon acute care discharge, the following is currently recommended: Primary recommendation is rehab. If patient were to return home; she would require home PT and supervision/assistance with mobility as needed. Equipment Provided: None issued this visit. Visit Number: Today's visit is number 10 Program: Orthopedics (Therapist may be reached on [place] [employer]) SESSION: Duration: 24 CHARGES: 19434 - CHARGE - PT GAIT TRNG - 15 MIN 2 Units - ORDER - Physical Therapy Treatment 1 Units - ORTHOPEDIC VISIT 1 Units Total treatment minutes: 24.00 Minutes Electronically Signed by: Shannon Linton PT, DPT, 11/05/2020 4:18:24 PM * Alirio Gil - 11/05/2020 11:55 AM EDT Name: Deborah Webb Date of : 1980 Date of Admission: 10/26/2020 PSYCHIATRY CONSULTATION DAILY PROGRESS NOTE Brief HPI: Per Dr. Bojorquez's note on 11/02/2020: "The patient is a 40 year old female with a PMH significant for sarcoidosis, daniela ysubstance use (alcohol, hydrocodone, oxycodone/paracetamol, alprazolam, ampheta mine/dextroamphetamine), anxiety, GERD, hypothyroidism who presented to the hosp ital for a broken foot 2/2 fall. The patient has been experiencing falls for th e past 2 years. She reports she has no symptoms and no warning prior to a fall. The patient reports predominantly falling to her left side. She previously in jured her left ankle, and has now broken her left foot. The patient developed a n addiction to hydrocodone and oxycodone/paracetamol which she was getting from a partner. She is currently receiving methadone treatment. The patient will re quire inpatient rehab due to her broken foot but she will not be able to receive methadone at such a facility. INTERVAL HISTORY: There were no acute events overnight. The patient reports that she "can't sit s till". She reports restlessness in her legs and an inability to sit still witho ut moving them. The patient reports that she has been experiencing similar delfin r symptoms on and off for the past 2 years. She has not noticed anything which induces them or which makes them better or worse. She reports the symptoms have occurred over the weekend and have been consistent without change. She reports that in the past people have noticed her tongue sticking out of her mouth when she was unaware of it. She reports that people have told her she sometimes move s her legs in her sleep. The patient reports that she has been suffering from d epressed mood and anxiety throughout the weekend. The patient reports "the nurs es don't listen to me" and "they don't answer when I call". The patient reports poor sleep as well as feelings of guilt and worthlessness. PSYCHIATRIC ROS: Psychiatric Review of Systems: Psychosis: Patient does not have visual hallucinations or auditory hallucination s. Depression: Patient has Depression, depressed mood, irritable mood, decreased sl eep, anhedonia and guilt/feelings of worthlessness. Patient exhibits psychomotor agitation. Patient does not exhibit psychomotor retardation. Patient does not h ave decreased energy, decreased concentration, decreased appetite, suicidal idea tion or homicidal ideation. Noemi: Patient exhibits irritability. Patient does not have increased activity o r decreased need for sleep. Post Traumatic Stress Disorder: Patient reports a history of trauma and re-exper iences trauma through nightmares or flashbacks. Panic: Patient does not have panic attacks, palpitations or sweating. Recent Substance Use: Patient denies substance use in the last two weeks. IN-PATIENT MEDICATIONS: bacitracin Topical TID buPROPion 450 mg Oral Daily busPIRone 10 mg Oral BID enoxaparin 40 mg Subcutaneous Daily gabapentin 800 mg Oral TID levothyroxine 175 mcg Oral Daily methadone 145 mg Oral Daily QUEtiapine 200 mg Oral Nightly trazodone 50 mg Oral Nightly VITALS: Vitals: 11/04/20 1856 11/04/20 2230 11/05/20 0335 11/05/20 0734 BP: 104/70 102/62 116/79 123/75 Pulse: 82 68 74 89 Resp: 18 18 16 16 Temp: 37.2 C (99 F) 36.8 C (98.2 F) 37 C (98.6 F) 37.2 C (99 F) SpO2: 97% 90% 90% 100% PERTINENT LABS: No results found for this visit on 10/26/20 (from the past 24 hour(s)). 11/04 CT Head without Contrast Impression: Unremarkable unenhanced CT of the brain. MENTAL STATUS EXAM: General Appearance: Patient is a overweight 40 y.o. female who appears the stat ed age. She has poor dentition. She has fair hygiene. She is sitting in a chair. She is dressed in a hospital gown. Behavior: Attitude: Patient is cooperative. Psychomotor: Patient does not have psychomotor retardation. Patient exhibits li p smacking and restlessness. Eye Contact: Eye contact is appropriate. Speech: Patient's speech is spontaneous. Speech quantity: normal. Rate is normal . Volume is normal. Mood: "Really agitated". Affect: Affect is euthymic, She became tearful for a few moments when describing depression she felt over the weekend, responsive and appropriate. Affect is inc ongruent with stated mood. Patient appears expansive. Thought Process: Thought process is linear, coherent and goal directed. Thought Content: Patient does not express active suicidal ideation, passive suic idal ideation, active homicidal ideation, delusions of persecution, delusions of guilt and ideas of reference. Perceptions: Patient is not internally preoccupied. Patient does not have audito ry hallucinations or visual hallucinations. Cognition: Cognition is grossly intact. Patient is awake and alert. Insight: Fair Judgement: Fair DSM-5 DIAGNOSES: 292.9 (F11.99) Unspecified Opioid-Related Disorder, on methadone maintenance the rapy 311 (F32.9) Unspecified Depressive Disorder , previously diagnosed 300.02 (F41.1) Generalized Anxiety Disorder , previously diagnosed 309.81 (F43.10) Posttraumatic Stress Disorder (includes Posttraumatic Stress Dis order for Children 6 Years and Younger), without dissociative symptoms,without d elayed expression , previously diagnosed 314.01 (F09.9) Unspecified Attention-Deficit/Hyperactivity Disorder, Moderate , previously diagnosed ASSESSMENT: Initial Assessment: The patient is a 40 year old female with a PMH significant f or sarcoidosis, polysubstance use (alcohol, hydrocodone, oxycodone/paracetamol, alprazolam, amphetamine/dextroamphetamine), anxiety, GERD, hypothyroidism who pr esented to the hospital for a broken foot 2/2 fall. The patient reports that no loved ones have ever seen her fall and there is no one we can call for collater al information regarding how the falls look. Our differential includes neurolog ic dysfunction. We recommend a neurology consult for an evaluation of these pot ential pathologies. Our differential includes orthostatic hypertension so we re commend obtaining orthostatic vitals and discontinuing prazosin. The patient's psychiatric medications may also be contributing to her falls. At this time she is willing to stop trazodone so we recommend reducing trazodone to 50 mg nightl y. Our differential includes conversion disorder but all other potential causes must be ruled out. Interval Assessment: Neurology was consulted. The patient's orthostatic vitals were positive. The differential for her falls includes orthostasis vs cough syn cope along with possible medication side effects. The patient's dose of hydroxy zine has been increased to 50 mg q6h PRN due to her persistent anxiety. The pat ient's restlessness is not consistent with tardive dyskinesia. AIMS was 3. Her only motor symptom was persistant movement of her feet. The patient reports po or dentition and chronic tooth pain which may have led to tongue movement which was reported to her in the past. Her symtoms may be consistent with akathisia, this can be evaluated outpatient. We recommend discontinuing quetiapine as it c ould be contributing to her motor symptoms, and it can decrease her blood pressu re and increase her fall risk in the setting of positive orthostatic vitals. PLAN/Recommendations: Disposition: Discharge to rehab per primary team Legal Status: None Safety/Level of Observation: Routine observation Scheduled Medications: Bupropion 450 mg daily Buspirone 10 mg BID Gabapentin 800 mg TID Methadone 145 mg daily Trazodone to 50 mg nightly Continue Quetiapine 200 mg nightly PRN/Agitation Medications: Hydroxyzine 50 mg q6h PRN Please discontinue PRN Quetiapine (more likely to cause orthostasis than hydroxy zine) Referrals: Neurology consulted; none other at the time. Inpatient Follow Up: Psychiatry will follow Other Recommendations: None Tasks Requiring Follow Up: None Next Outpatient Appointment(s): Continue with established outpatient providers Safety Planning: N/A The above patient has been seen and discussed with Dr. Newman, with whom the abo ve assessment and plan were formulated. Alirio Gil, MS4 Associated attestation - Karl Newman MD - 11/05/2020 1:54 PM EDT Deborah Webb was seen and discussed with the medical student (Angie Valentin S4). I was present with the medical student who participated in the evaluation o f the patient and in the documentation of the encounter. I independently evaluat ed the patient, discussed the patient with the medical student, and reviewed the content of the medical student's note. The note has been revised to reflect the pertinent positive and negative findings from the evaluation. I have verified a ll sections documented by the medical student and I agree with the content, find ings, and plan as written in the attached note. * Anne Walker NP - 11/05/2020 10:13 AM EDT Internal Medicine Inpatient Progress Note Length of stay- 10 Past Medical History: Diagnosis Date Anxiety Bronchitis, chronic Depression GERD (gastroesophageal reflux disease) Headache Substance abuse Thyroid disease Subjective: Much less anxious today. Psych recommending to incr Atarax dose and dc the prn d ose of Seroquel. Continues to be optimistic about working with PT/OT. Voices no c/o pain. Pain controled with prn Oxycodone. No syncopal events. Review of Systems Respiratory: Negative. Cardiovascular: Negative. Gastrointestinal: Negative. Genitourinary: Negative. Objective: Vitals: 11/04/20 1856 11/04/20 2230 11/05/20 0335 11/05/20 0734 BP: 104/70 102/62 116/79 123/75 BP Location: Left arm Left arm Left arm Right arm Patient Position: Lying Lying Lying Lying Pulse: 82 68 74 89 Resp: 18 18 16 16 Temp: 37.2 C (99 F) 36.8 C (98.2 F) 37 C (98.6 F) 37.2 C (99 F) TempSrc: Oral Oral Oral Oral SpO2: 97% 90% 90% 100% Weight: Height: Physical Exam Constitutional: General: She is not in acute distress. Cardiovascular: Rate and Rhythm: Normal rate and regular rhythm. Heart sounds: Normal heart sounds. Pulmonary: Effort: Pulmonary effort is normal. Breath sounds: Normal breath sounds. Abdominal: General: Bowel sounds are normal. Palpations: Abdomen is soft. Musculoskeletal: Comments: Dressing intact to LLE. The upper incision has mild erythema today , no warmth or drainage noted. Left sided toe touch ambulation with walker and standby assist. Skin: General: Skin is warm and dry. Capillary Refill: Capillary refill takes less than 2 seconds. Neurological: General: No focal deficit present. Mental Status: She is oriented to person, place, and time. Psychiatric: Mood and Affect: Mood normal. Thought Content: Thought content normal. Laboratory independently reviewed Recent Labs Lab 10/30/2022110/31/20 0403 11/03/20 0644 NA 134* 134* 136 K 3.5 3.2* 4.1 CL 99 99 99 BICARBONATE 23 23 24 BUN 6 8 10 CREATININE 1.13* 1.13* 1.14* GLUCOSE 93 91 106 Recent Labs Lab 10/30/2022110/31/20 0403 WBC 5.7 4.8 HGB 9.0* 8.8* HCT 26.4* 25.8* MCV 89.4 89.5 PLT 185 178 NEUTOPHILPCT 75 -- MONOPCT 7 -- Lab Results Component Value Date PROT 7.3 11/03/2020 ALBUMIN 4.2 11/03/2020 AST 17 11/03/2020 ALT <5 11/03/2020 TBILI 0.6 11/03/2020 ALKPHOS 93 11/03/2020 No results for input(s): INR in the last 168 hours. Invalid input(s): APT No results for input(s): CKTOTAL, TROPONINI, TROPONINT, CKMB, CK in the last 168 hours. Lab Results Component Value Date TSH 16.720 (H) 10/26/2020 IMAGING and LABS independently reviewed MEDICATIONS: Scheduled Meds: acetaminophen (TYLENOL) tablet 650 mg Oral Once bacitracin Topical TID buPROPion 450 mg Oral Daily busPIRone 10 mg Oral BID enoxaparin 40 mg Subcutaneous Daily gabapentin 800 mg Oral TID levothyroxine 175 mcg Oral Daily methadone 145 mg Oral Daily QUEtiapine 200 mg Oral Nightly trazodone 50 mg Oral Nightly Continuous Infusions: PRN Meds:.acetaminophen (TYLENOL) tablet, albuterol, hydroxzine, oxyCODONE Assessment & Plan: Deborah Webb is a 40 y.o. female who is here for Principal Problem: Leg fracture, left, closed, initial encounter Active Problems: Akinesia # Left Tib/Fib Fracture s/p Fall - Pt sustained a fall which resulted in fx - Ortho performed ORIF on 10/28/20 - Upper incision/sd on Left leg with mild erythema. Will start Bacitracin tid. - APS dc'd the nerve block catheters yest. - Oxycodone being used PRN with pain control - Has not had any falls while hospitalized and did well in the hallway today wit h PT using a walker and hopping on her right leg although last Ortho note on 10/05 7 says she can be toe touch as tolerated. - PT rec STR but none will accept pts on Methadone used for opioid addiction. # Recurrent Falls - Neuro consulted- CT Head WNL - Orthostatic BPs have been positive. Caution with any new medication additions . - Orthostasis vs Cough Syncope are suspected causes along with possible medicati on effects - Will cont to monitor as med changes are made. -Thus far her Prazosin has been dc'd and Trazadone decreased to 50mg. # Chronic Opioid Dependence - Addiction Psych consulted early on in admission - Continues on her home Methadone 145mg every day # LEIF # PTSD # ADHD - Pt is upset that she was told she had Tardive Dyskinesia by Neurology - Psych following- they feel her presentation is more of Akathisia rather than T ardive Dyskinesia and can be worked up as an outpatient. - Per Psych- will increase her Atarax to 50mg po q6hr and dc the prn Seroquel as that may cause orthostasis. - Continue daily orthostatic BP checks # Hypothyroidism - continue home Synthroid # Sarcoidosis - sx not active at this time DVT Prophylaxis: LMWH Functional Impairment: moderate Code Status: Full Code Disposition: Pending STR Some portions of note this may have been copied from a previous note during admi ssion for the purposes of continuity of care. Details reviewed and edited as ap propriate. Anne Walker, MSN, ANP/[employer] [facility] 11/05/2020 10:13 AM Associated attestation - Shaggy Gilmore MD - 11/05/2020 8:27 PM EDT I saw and evaluated the patient. Discussed with the non-physician practitioner and agree with the non-physician practitioner findings and plan as documented in their note. Continuing to work on disposition. Orthostatics today are improved. Shaggy Gilmore MD * Carolina Faby, OT - 11/05/2020 8:52 AM EDT Occupational Therapy Acute Care Encounter Note Medical Diagnosis: s/p IM Nail of left tibia shaft, closed treatment of fibula fracture with manipulation Rehabilitation Precautions/Restrictions: Per Orthopedic Progress note dated 10/29/20: "Toe touch weightbearing as tolerated to the LLE" Activity: OOB w/ assistance High fall risk Full code Goal Review Visit Number: 6 SUBJECTIVE Patient Report: "good morning" Pain: Patient currently complains of pain. Location: LLE . Patient describes pain as Nonspecific. Verbal Scale: Patient reports a pain level of 6 out of 10. Will perform therapy only as tolerated. Pain Medication Today: yes. OBJECTIVE General Observation: Pt laying supine in bed, JOSEE wrap on L LE, NAD, awake and alert. No bed alarm noted at start of session. Skin Integrity Screen: Josee wrap to LLE from mid-thigh to distal LE. Quarter-sized bruise to LLE above bandage, patient reports due to peripheral nerve block. [place] visible on LLE above and below knee; mild erythema to periwound above knee Vital Signs: Stable. Self Care/Home Management: Grooming: Supervision. Modified activity to challenge standing/sitting balance. Pt completed hair hygiene while standing at sink, able to maintain weight bearing precautions with rolling walker. . Bathing: Supervision. Completed sitting at the edge of the bed with set up. . Dressing - upper body: Modified [place]. sitting at edge of bed . Dressing - lower body: Modified [place]. sitting at edge of bed . Toilet transfer: Supervision. with rolling walker and gait belt . Toileting: Supervision. Splinting: No splint issued today. Cognitive Test Score: Not tested. Outcome Measures: [facility] AM-PAC "6 Clicks" Daily Activity Inpatient Short Form: Putting on and taking off regular lower body clothing: A little assistance (3) Bathing (including washing, rinsing, and drying): A little assistance (3) Toileting (including use of toilet, bedpan, or urinal): A little assistance (3) Putting on and taking off regular upper body clothing: No assistance (4) Taking care of personal grooming such as brushing teeth: No assistance (4) Eating meals: No assistance (4) Raw Score: 21 /24 Interventions: Self Care/Home Management: Therapist facilitated the completion of self-care tasks and set up the environment for morning ADL routine. Therapist graded the self-care tasks to facilitate independence, increase strength and endurance during the completion of ADLs, to work on both dynamic standing and sitting balance. Prior to movement therapist prompted pt to verbalize her weight bearing precautions to ensure safe mobility. Throughout the session, verbal cues were provided for safe mobility with rolling walker to perform toilet transfer and sit to stand. Therapist facilitated the use of several strategies to encourage the pt to develop safety awareness, insight and problem-solving skills required when completing self-care tasks. Education: Mode of education provided: Explanation. Demonstration. Audience: Patient. Education Provided: Role of OT, plan of care, safe mobility and transfer technique with rolling walker. . Response: Applied knowledge. Requires cues (auditory/physical). ASSESSMENT Response to Visit: The session was tolerated fair, as evidenced by: Pt agreeable to therapy, demonstrated good insight to precaution and improved safety awareness, however still noted to be impulsive trhoughout the session. Pt motivated to completed morning self care routine. Pt understands discharge plan and goals for therapy. Pt able to verbalize and demonstrate UE exercises, in addition to the importance of completion throughout the day to increase strength Therapist left pt sitting in recliner, with needs met. Chair alarm was on at end of session. Call oseguera was in patient's reach at end of session. Pain: Yes, pain is unchanged from start of today's treatment. PLAN Treatment Frequency, Duration and Interventions: Restorative Occupational Therapy recommended for 5x/week for 2 weeks Treatment is to include: Self Care/Home Management. Therapeutic Activity. Therapeutic Exercise. Recommended Occupational Therapy Follow Up: Upon acute care discharge, the following is currently recommended: Home with assistance for ADLs as needed, if no assistance is avaliable would benifit from short rehab stay. Visit Number: Today's visit is number 6 Program: Orthopedics (Therapist may be reached on [place] [employer]) This document is submitted as a late entry. SESSION: Duration: 43 CHARGES: [id number] - CHARGE - OT SELF CARE ADL TRAIN-15 MIN 3 Units - ORDER - Occupational Therapy Treatment 1 Units - ORTHOPEDIC VISIT 1 Units Total treatment minutes: 43.00 Minutes Electronically Signed by: URSULA Oakes/Fadi, 11/05/2020 10:30:19 AM * Pamela Brink MD - 11/05/2020 8:48 AM EDT Neurology progress note Deborah Webb is a 40 y.o.female with history of sarcoidosis, hypothyroidism, chronic opioid dependence, depression for whom neurology was consulted for in t he setting of multiple falls. Patient's most recent episode resulted in tibiofib ular fracture on left. Neurology was consulted for further evaluation of multipl e falls and further evaluation.Orthostatic vitals positive with coughing. Subjective : Patient reports that she did not have any new episode in past 2 day s. She reports that these episodes of falling started about 6 months ago. She repo rts 5 episodes so far. She reports that one time she had rhinovirus and her bas melina cough was worse and she had a fall. She does not think that she is losing her consciousness. She denies any confusion after the episode. She denies feeli ng chest pain, dizziness or excessive sweating prior to fall. She denies feelin g any aura prior to these episodes. Patient also mentioned that she is trying to quit smoking. She reports that she have cough due to sarcoidosis and her cough worsens whenever she smokes. No ot her complaints reported Exam Mental Status : Awake, alert , oriented, regards and follows command appropriate ly Language : Fluent speech Cranial nerves : Extraocular movements intact, face appears symmetric, facial se nsation intact to light touch throughout, tongue protrusion midline Motor : Right : 5/5 deltoid, 5/5 biceps, 5/5 triceps Left : 5/5 deltoid, 5/5 biceps, 5/5 triceps Right : 5/5 iliopsoas, 5/5 quad, 5/5 tibialis anterior, 5/5 gastrocnemius Left : Antigravity in left lower extremity with no drift (individual muscle not tested due to fracture ) Sensation : Intact to light touch throughout Gait deferred Workup Head CT : Impression: Unremarkable unenhanced CT of the brain. Cough ?presyncopal symptomatology Orthostatic hypotension -CT head was unremarkable -Telemetry monitoring -Considering an episode of hypotension and tachycardia on orthostatics, referral for autonomic testing ordered. (Testing is done at [address]) -Recommend monitoring orthostatics, adequate hydration -No other recommendations, rest of care per primary team The patient was seen and examined with Dr. Brink and plan was formulated t rubén. I, Pamela Brink, saw and examined this patient. I reviewed the case with the resident, formulated the impression and plan jointly, as documented in the luna t. I also reviewed, and agree with this note. * Anne Walker NP - 11/04/2020 5:26 PM EDT Internal Medicine Inpatient Progress Note Length of stay- 9 Past Medical History: Diagnosis Date Anxiety Bronchitis, chronic Depression GERD (gastroesophageal reflux disease) Headache Substance abuse Thyroid disease Subjective: Pt very emotional and distressed about her constant anxiety and continual leg mo vements. Feels her pain is well controlled at this time. APS pulled out the ner ve block catheters early this morning as she seemed to be doing well. Will need STR until she is able to bear weight on the left leg. Review of Systems Objective: Vitals: 11/04/20 0315 11/04/20 0813 11/04/20 1139 11/04/20 1621 BP: 116/69 121/81 112/71 116/70 BP Location: Left arm Left arm Left arm Left arm Patient Position: Lying Lying Lying Pulse: 80 89 78 83 Resp: (!) 18 18 Temp: 37.2 C (99 F) 37.1 C (98.8 F) 37.3 C (99.1 F) 37 C (98.6 F) TempSrc: Oral Oral Oral Oral SpO2: 90% 93% 93% 92% Weight: Height: Physical Exam Laboratory independently reviewed Recent Labs Lab 10/30/2022110/31/20 0403 11/03/20 0644 NA 134* 134* 136 K 3.5 3.2* 4.1 CL 99 99 99 BICARBONATE 23 23 24 BUN 6 8 10 CREATININE 1.13* 1.13* 1.14* GLUCOSE 93 91 106 Recent Labs Lab 10/29/20 0011 10/30/2022110/31/20 0403 WBC 6.3 5.7 4.8 HGB 8.7* 9.0* 8.8* HCT 24.8* 26.4* 25.8* MCV 88.3 89.4 89.5 PLT 183 185 178 NEUTOPHILPCT 80 75 -- MONOPCT 5 7 -- Lab Results Component Value Date PROT 7.3 11/03/2020 ALBUMIN 4.2 11/03/2020 AST 17 11/03/2020 ALT <5 11/03/2020 TBILI 0.6 11/03/2020 ALKPHOS 93 11/03/2020 No results for input(s): INR in the last 168 hours. Invalid input(s): APT No results for input(s): CKTOTAL, TROPONINI, TROPONINT, CKMB, CK in the last 168 hours. Lab Results Component Value Date TSH 16.720 (H) 10/26/2020 IMAGING and LABS independently reviewed MEDICATIONS: Scheduled Meds: acetaminophen (TYLENOL) tablet 650 mg Oral Once buPROPion 450 mg Oral Daily busPIRone 10 mg Oral BID enoxaparin 40 mg Subcutaneous Daily gabapentin 800 mg Oral TID levothyroxine 175 mcg Oral Daily methadone 145 mg Oral Daily [START ON 11/05/2020] QUEtiapine 100 mg Oral BID trazodone 50 mg Oral Nightly Continuous Infusions: ropivacaine 500 mg (11/02/20 5610) ropivacaine PRN Meds:.acetaminophen (TYLENOL) tablet, albuterol, hydroxzine, oxyCODONE, QUEt iapine Assessment & Plan: Deborah Webb is a 40 y.o. female who is here for Principal Problem: Leg fracture, left, closed, initial encounter Active Problems: Akinesia # Left Tib/Fib Fracture s/p Fall - Pt sustained a fall which resulted in fx - Ortho performed ORIF on 10/28/20 - Incision healing well and w/o any erythema or drainage - APS had dc'd the nerve block catheters today as her pain has been well control led. - Oxycodone being used PRN - Has not had any falls while hospitalized and did well in the hallway today wit h PT using a walker and hopping on her right leg although last Ortho note on 10/05 7 says she can be toe touch as tolerated. - PT rec STR # Recurrent Falls - Neuro consulted- CT Head WNL - Orthostatic BPs have been pos - Orthostasis vs Cough Syncope are suspected causes along with possible medicati on effects - Will cont to monitor as med changes are made. -Thus far her Prazosin has been dc'd and Trazadone decreased to 50mg. # Chronic Opioid Dependence - Addiction Psych consulted - continues on her home Methadone 145mg every day # LEIF # PTSD # ADHD - Pt is upset that she was told she had Tardive Dyskinesia by Neurology - Psych following- they feel her presentation is more of Akathisia rather than T ardive Dyskinesia and can be worked up as an outpatient. - Has Hydroxyzine PRN for anxiety, however, pt does not feel it works for her. Psych would rather not add any other anti-anxiety meds as that would incr her ri sk of orthostasis. - Have added a one time daily PRN dose of Seroquel 25mg for anxiety - Continue daily orthostatic BP checks # Hypothyroidism - continue home Synthroid # Sarcoidosis - sx not active at this time DVT Prophylaxis: LMWH Functional Impairment: moderate Code Status: Full Code Disposition: Pending STR Some portions of note this may have been copied from a previous note during admi ssion for the purposes of continuity of care. Details reviewed and edited as ap toi. Anne Walker, MSN, ANP/[employer] [facility] 11/04/2020 5:26 PM Associated attestation - Shaggy Gilmore MD - 11/05/2020 8:57 PM EDT I saw and evaluated the patient 11/04/2020. Discussed with the non-physician prac titioner and agree with the non-physician practitioner findings and plan as docu mented in their note. Stable, slightly anxious. Shaggy Gilmore MD * Glenda Petit DO - 11/04/2020 2:32 PM EDT Name: Deborah Webb Date of : 1980 Date of Admission: 10/26/2020 PSYCHIATRY CONSULTATION DAILY PROGRESS NOTE Brief HPI: Per Dr. Bojorquez's note on 11/02/2020: "The patient is a 40 year old female with a PMH significant for sarcoidosis, daniela ysubstance use (alcohol, hydrocodone, oxycodone/paracetamol, alprazolam, ampheta mine/dextroamphetamine), anxiety, GERD, hypothyroidism who [facility] for a broken foot 2/2 fall. The patient has been experiencing falls for th e past 2 years. The patient is unaware of any changes that directly preceded th e start of her falls. Her only medication change was that buspirone was started . She reports that the frequency changes, sometimes she falls a couple times a month and sometimes a couple times a week. The patient denies lightheadedness, dizziness, confusion, headaches, palpations, visual disturbances, or loss of con sciousness along with her falls. She reports she has no symptoms and no warning prior to a fall. The patient reports predominantly falling to her left side. She previously injured her left ankle, and has now broken her left foot. The patient developed an addiction to hydrocodone and oxycodone/paracetamol whic h she was getting from a partner. She was never prescribed them, she was taking them to produce a euphoric mood. Her drug addiction led to her [facility] obtaining full custody. She is currently receiving methadone treatment. The patient will require inpatient rehab due to her broken foot but she will not be able to receive methadone at such a facility. She reports that she does not li ke the taste of buprenorphine or the way it makes her feel and so she is not lidia ling to switch to it. The patient reports a desire to wean herself off methadon e but frequently voiced concern that we would reduce her dose without consulting her." INTERVAL HISTORY: Patient was sitting in bed watching TV at the time of follow u p. She exclaimed "thank God you are here" when psychiatry arrived. She complains of anxiety so severe that her legs would not stop moving. She's also complaining of tongue movement that she said neurologist told her she has tardive dyskines ia. She complains of hydroxyzine not helping her anxiety. She denies SI/HI/AVH. PSYCHIATRIC ROS: See HPI for pertinent positives and negatives IN-PATIENT MEDICATIONS: acetaminophen (TYLENOL) tablet 650 mg Oral Once buPROPion 450 mg Oral Daily busPIRone 10 mg Oral BID enoxaparin 40 mg Subcutaneous Daily gabapentin 800 mg Oral TID levothyroxine 175 mcg Oral Daily methadone 145 mg Oral Daily QUEtiapine 200 mg Oral Nightly trazodone 50 mg Oral Nightly VITALS: Vitals: 11/03/20 1928 11/04/20 0315 11/04/20 0813 11/04/20 1139 BP: 133/79 116/69 121/81 112/71 Pulse: 84 80 89 78 Resp: 18 (!) 20 18 Temp: 37.2 C (99 F) 37.1 C (98.8 F) 37.3 C (99.1 F) SpO2: 97% 90% 93% 93% PERTINENT LABS: No results found for this visit on 10/26/20 (from the past 24 hour(s)). MENTAL STATUS EXAM: General Appearance: Patient is a overweight 40 y.o. female who appears the stat ed age. She has fair hygiene. She is sitting in bed.She is dressed in a hospital gown. She has left forearm lacerations. Behavior: Attitude: Patient is cooperative. Psychomotor: Patient exhibits lip smacking and restlessness. Eye Contact: Eye contact is appropriate. Speech: Patient's speech is spontaneous. Speech quantity: normal. Rate is normal . Volume is normal. Mood: "Anxious". Affect: Affect is euthymic, stable and appropriate. Patient appears expansive. Thought Process: Thought process is linear, coherent and goal directed. Thought Content: Patient does not express active suicidal ideation, passive suic idal ideation, active homicidal ideation, delusions of persecution, delusions of guilt and ideas of reference. Perceptions: Patient is not internally preoccupied. Patient does not have audito ry hallucinations or visual hallucinations. Cognition: Cognition is grossly intact. Patient is awake and alert. Insight: Poor Judgement: Fair DSM-5 DIAGNOSES: 292.9 (F11.99) Unspecified Opioid-Related Disorder, on methadone maintenance the rapy 311 (F32.9) Unspecified Depressive Disorder , previously diagnosed 300.02 (F41.1) Generalized Anxiety Disorder , previously diagnosed 309.81 (F43.10) Posttraumatic Stress Disorder (includes Posttraumatic Stress Dis order for Children 6 Years and Younger), without dissociative symptoms,without d elayed expression , previously diagnosed 314.01 (F09.9) Unspecified Attention-Deficit/Hyperactivity Disorder, Moderate , previously diagnosed ASSESSMENT: The patient is a 40 year old female with a PMH significant for sarcoidosis, poly substance use (alcohol, hydrocodone, oxycodone/paracetamol, alprazolam, amphetam ine/dextroamphetamine), anxiety, GERD, hypothyroidism who presented to the [facility] for a broken foot 2/2 fall. The patient reports that no loved ones have laya r seen her fall and there is no one we can call for collateral information denisaar tabatha how the falls look. Our differential includes neurologic dysfunction. We recommend a neurology consult for an evaluation of these potential pathologies. Our differential includes orthostatic hypertension so we recommend obtaining or thostatic vitals and discontinuing prazosin. The patient's psychiatric medicati ons may also be contributing to her falls. At this time she is willing to stop trazodone so we recommend reducing trazodone to 50 mg nightly. Our differential includes conversion disorder but all other potential causes must be ruled out. Patient complains of anxiety, but due to her orthostasis, the risk of increasing dosage of her current medications, or adding other common anxiety medications w ould outweigh the benefit. Her presentation does not appear typical of tardive d yskinesia (nor was this documented in neuro's note despite of patient's report) or akithisia. PLAN/Recommendations: Disposition: Discharge to rehab per primary team Legal Status: None Safety/Level of Observation: Routine observation Scheduled Medications: Bupropion 450 mg daily Buspirone 10 mg BID Gabapentin 800 mg TID Methadone 145 mg daily Quetiapine 200 mg nightly Continue Trazodone to 50 mg nightly Prazosin 1 mg nightly discontinued PRN/Agitation Medications: None Referrals: Neurology consulted; none other at the time. Inpatient Follow Up: Psychiatry will follow Other Recommendations: Obtain orthostatic vitals Tasks Requiring Follow Up: None Next Outpatient Appointment(s): Continue with established outpatient providers Safety Planning: N/A Consult team will continue to follow daily and if there are any questions or con cerns, please feel free to contact team. The above plan was discussed with Dr. Ortega, the attending physician for this [facility]. Stacey Petit, Safe Expert Associated attestation - Ren Ortega MD - 11/04/2020 2:52 PM EDT Deborah Webb was not seen by this provider, but was discussed in real time w ith the resident intern (Dr. Petit) in my capacity as Attending of Record (AOR) . I am in agreement with the assessment and plan as they are presently constitut ed in their note. Please refer to the resident's note for full details regarding the patient's history, assessment, and plan. As I did not personally examine the patient, I will not be billing for the services provided. -Neurology note makes no mention of tardive dyskinesia, which the patient report ed to Dr. Petit. -Symptoms sound more concerning for akathisia. However, given her recent falls and orthostasis would hold off on any further treatment for this at this time. This can be reevaluated as an outpatient * Yariel Barnes MD - 11/04/2020 10:45 AM EDT Peripheral Nerve Block Progress Note Subjective: PNB day: 3 days Location: left Pop/Saph Infusion: Ropivicaine 0.2% @ 6ml/hr for Pop, Ropivicaine 0.2% @ 6ml/hr for Saph Interval History: Patient seen resting comfortably in bed this morning. No acute events overnight. Pop/saph PNB sights absent of erythema or fluctuance. Patient states continue pain control with no complaints. ROS: Paresthesias? no, Weakness? no Symptoms of local anesthetic toxicity: perioral numbness? no Dizziness? no Seizu re-like activity? no Mental status changes? no Cardiac abnormalities? no Current Medications: acetaminophen (TYLENOL) tablet 650 mg Oral Once buPROPion 450 mg Oral Daily busPIRone 10 mg Oral BID enoxaparin 40 mg Subcutaneous Daily gabapentin 800 mg Oral TID levothyroxine 175 mcg Oral Daily methadone 145 mg Oral Daily QUEtiapine 200 mg Oral Nightly trazodone 50 mg Oral Nightly PRN: acetaminophen (TYLENOL) tablet 650 mg Q4H PRN, morphine sulfate (PF) 4 mg Q4H [place] N, oxyCODONE 5 mg Q4H PRN Current Hospital Problem List: Principal Problem: Leg fracture, left, closed, initial encounter Active Problems: Akinesia History reviewed. No pertinent surgical history. Objective: Vital signs in last 24 hours: Vitals: 11/03/20 1606 11/03/20 1928 11/04/20 0315 11/04/20 0813 BP: 110/88 133/79 116/69 121/81 BP Location: Left arm Left arm Left arm Left arm Patient Position: Lying Lying Pulse: 76 84 80 89 Resp: 18 18 (!) 20 18 Temp: 36.7 C (98.1 F) 37.4 C (99.3 F) 37.2 C (99 F) 37.1 C (98.8 F) TempSrc: Oral Oral Oral Oral SpO2: 94% 97% 90% 93% Weight: Height: Intake/Output last 3 shifts: I/O last 3 completed shifts: In: 120 [P.O.:120] Out: - Data Review CBC: Lab Results Component Value Date WBC 4.8 10/31/2020 RBC 2.88 (L) 10/31/2020 HGB 8.8 (L) 10/31/2020 HCT 25.8 (L) 10/31/2020 PLT 178 10/31/2020 BMP: Lab Results Component Value Date NA 136 11/03/2020 K 4.1 11/03/2020 CL 99 11/03/2020 BICARBONATE 24 11/03/2020 GLUCOSE 106 11/03/2020 BUN 10 11/03/2020 CREATININE 1.14 (H) 11/03/2020 BCR 9 11/03/2020 GFRAA 70 11/03/2020 GFRNONAA 60 (L) 11/03/2020 Hepatic Panel: Lab Results Component Value Date ALBUMIN 4.2 11/03/2020 ALKPHOS 93 11/03/2020 ALT <5 11/03/2020 AST 17 11/03/2020 PROT 7.3 11/03/2020 TBILI 0.6 11/03/2020 Coagulation: Lab Results Component Value Date INR 1.06 10/26/2020 Exam: NAD, AAO x 3 NCAT CVSS No respiratory distress Extremities- WWP; catheter sites=c/d/i, no surrounding erythem or pain Assessment/Plan: 40 y.o. year old female with peripheral nerve catheter day 5. Pain is adequately controlled on current regimen for both the popliteal & saphenous nerve block. Blocks are day 5. 1. Pop/Saph catheter discontinued today. Catheters were removed with no complica tions and completely intact catheter tip. No concerning S/S of infection. She to lerated it well, bandaids placed over catheter sites 2. Consider multimodal approach to pain management. Consider using Robaxin 500 Q ID for increased pain control if needed 3. APS will sign off. Please call with questions or concerns. Patient discussed with Dr Costa who is in agreement with the plan. Yariel Barnes MD Interventional Pain Management Fellow Associated attestation - Aixa Costa MD - 11/04/2020 7:04 PM EDT I saw and evaluated the patient. Discussed with the resident and agree with the residents findings and plans as written, along with any supplemental dictated a nd/or attending documentation in the patient record by myself. * Hannah Lindsey, PT - 11/04/2020 10:35 AM EDT Physical Therapy Acute Care Treatment Note Medical Diagnosis: s/p fall from standing Left mid shaft tibia fracture comminuted with segmental fibula fracture Procedure(s) performed 10/28/20: 1. IM nail of left tibial shaft fracture. 2. Closed treatment of left fibular fracture with manipulation. Rehabilitation Precautions/Restrictions: Per Orthopedic Progress note dated 10/29/20: "Toe touch weightbearing as tolerated to the LLE" Activity: OOB w/ assistance High fall risk Full code Goal Review Visit Number: 8 SUBJECTIVE Patient Report: Patient agreeable to PT this AM. Pain: Patient currently complains of pain. Location: LLE . Patient describes pain as Nonspecific. Verbal Scale: Patient reports a pain level of 9 out of 10. Will perform therapy only as tolerated. RN provided pain medication at onset of session. Pain Medication Today: yes. OBJECTIVE General Observation: Patient received semi-reclined in bed in NAD on RA, RN at bedside. No active lines/tubes/drains noted. Bed alarm was on at start of session. Vital Signs: Asymptomatic throughout session. Range of Motion:No change observed. Strength:No change observed. Skin Integrity Screen: Josee wrap to LLE from mid-thigh to distal LE, socks donned. Quarter-sized bruise to LLE above bandage, patient reports due to peripheral nerve block. Sd visible on LLE above and below knee; mild erythema to periwound above knee. Functional Status: Transfers: Patient transferred sit to/from stand requiring stand by assistance. Patient used the following equipment: Transfer belt. Patient used the following equipment: Arms of chair. Patient used the following equipment: rolling walker. For incidental safety. To/from edge of bed, to/from wheelchair, to/from toilet. Bed Mobility: Patient moves from supine to/from sit with modified independence. HOB elevated. Locomotion/Wheelchair: Patient required supervision with wheelchair locomotion for approximately 200 feet . Patient used a manual wheelchair. No other equipment was used. Utilized bilateral UEs. Increased time to complete. L/R turns. Locomotion/Gait/Ambulation: Patient was contact guard with gait/ambulation of 1 person for approximately 100 feet, 10 feet x2 trials, 5 feet x1 trial . Patient requires the following assistive device(s): Gait belt. Rolling walker. Progression to stand by assist. Hop-to pattern. NWB LLE maintained. Increased time to complete distance(s). Forward posture. Stairs: Patient was minimal assist of 1 person for 1 step up/down . Patient used the following equipment: Unilateral Railing. Axillary Crutches. Ascending handrail in LLE, and crutch in RLE. Patient unable to negotiate further, citing discomfort and "weird" feeling of crutch/crutch height as compared to prior sessions. Hop-to pattern. Outcome Measures: [facility] "6 Clicks" Basic Mobility Inpatient Short Form: Turning over in bed: A little difficulty (3) Sitting down on and standing up from a chair with arms: Unable to perform (1) Moving from lying on back to sitting on the side of the bed: A little difficulty (3) Moving to and from a bed to a chair (including a wheelchair): A little help (3) Walking in hospital room: A little help (3) Climbing 3-5 steps with a railing: Total assistance (1) Raw Score 14 /24. Interventions: Gait Training: Emphasis of session on increasing ambulatory distance and trialing most appropriate/safe as well as lest restrictive method to negotiate stairs in preparation for discharge home. Therapist with minimal verbal cues for task sequencing including step placement, step sequencing, activity pacing, breathing techniques, rolling walker management, axillary crutch management on stairs. Therapist with axillary crutch height adjustment to anatomical standards, however, patient continuously reporting it was "uncomfortable" and "weird," and became anxious regarding stairs negotiation. Patient facilitated in x5 minute negotiation of 1 foot ambulation, ascension/descension of 2-inch step, and 2 foot ambulation in parallel bars with bilateral UE support to improve LE strength, coordination, endurance necessary for future stair negotiation and home mobility tasks. Graded prompts provided to promote retention of skill. Wheelchair Management: To improve bilateral UE strength, endurance, coordination necessary for future mobility tasks, patient facilitated in wheelchair propulsion on a flat surface including L/R turns as noted above. Therapist with minima verbal cues for hand placement on rims vs wheels, propulsion technique, hallway navigation. Therapeutic Activities: To improve independence with, and tolerance to, functional mobility tasks, patient facilitated in bed mobility, functional transfers, and toileting throught session with only minimal verbal cues for safety with hand placement. Patient provided supervision only for toileting, as well as hand hygiene and brushing teeth at sink for approximately 5 minutes while standing. Patine encouraged din wide base of support, NWB LLE, and breathing techniques for activity pacing. Education: Mode of education provided: Demonstration. Explanation. Audience: Patient. Education Provided: Safe mobility. Treatment plan. Body mechanics/postural changes. Rehabilitation techniques and procedures. Home ergonomics. Pain management. Medical equipment options. Role of acute PT. Risks to immobility. Safe discharge planning. . Response: Applied knowledge. Indicates understanding. Needs practice/reinforcement. Requires cues (auditory/physical). Verbalized understanding. ASSESSMENT Response to Visit: The session was tolerated fair, as evidenced by: Patient pleasant, willing to mobilize, however, has significantly decreased activity tolerance and has not demonstrated ability to negotiate full flight of at least 1 set of stairs to simulate home set-up. Patient recognizes she needs to do this to discharge home. Session terminated with patient semi-reclined in bed, all needs met. Call oseguera was in patient's reach at end of session. Pain: Patient currently complains of pain. Location: LLE . Patient describes pain as Nonspecific. Verbal Scale: Patient reports a pain level of 8 out of 10. Goal review: PT goals ongoing and appropriate. Changes in or Continuation of Plan of Care: Patient will benefit from continued therapy to achieve planned goals. PLAN Treatment Frequency, Duration and Interventions: Restorative Physical Therapy is recommended for 1-2x a day for 2 weeks. Treatment is to include: Gait Training. Manual Therapy. Neuromuscular Re-education. Therapeutic Activity. Therapeutic Exercise. Self Care/Home Management. Equipment Provided: None issued this visit. Equipment Recommended: To be assessed. Recommended Physical Therapy Follow Up: Upon acute care discharge, the following is currently recommended: Anticipate patient will have inpatient rehab needs beyond the acute stay. Recommend STR options be explored, as patient mobility and assistance required to mobilize fluctuates daily due to pain. Patient has not demonstrated consistent stair negotiation to ascend/descend 3 flights safely. Patient has no supports at home, no ability to negotiate stairs as well as carry DME to/from apartment (rolling walker, axillary crutch) safely. Recommended Consults: None currently. Development of Plan of Care: Participants included: Patient. Nurse. Visit Number: Today's visit is number 9 Program: Orthopedics (Therapist may be reached on Vocera) SESSION: Duration: 40 CHARGES: 03410 - CHARGE - PT GAIT TRNG - 15 MIN 2 Units 43434 - CHARGE - PT THERAPEUTIC ACTIVITIES - 15 MIN 1 Units 86418 - CHARGE - PT WC MGMT PROPULSION - 15 MIN 0 Units - ORTHOPEDIC VISIT 1 Units Total treatment minutes: 40.00 Minutes Electronically Signed by: Hannah Lindsey PT, DPT, 11/04/2020 10:57:48 AM * Julisa Zamorano TOOL TECHNICIAN - 11/03/2020 4:24 PM EDT Internal Medicine Inpatient Progress Note Length of stay- 8 Subjective: Ms. Deborah Webb is a 40 year old female who came in for left l eg fracture. Patient mentioned that Neurology came in the room and told her she could be having episodes of falling down while she was coughing. She stated 2 mo nths ago she had COVID and also had rhinovirus last year where she was coughing a lot. Review of Systems Constitutional: Negative for activity change and appetite change. Respiratory: Negative for shortness of breath. Cardiovascular: Negative for chest pain. Gastrointestinal: Negative for diarrhea, nausea and vomiting. Musculoskeletal: Left leg pain Neurological: Negative for dizziness and headaches. Objective: Vitals: 11/03/20 0345 11/03/20 0748 11/03/20 1129 11/03/20 1606 BP: 120/90 100/72 110/88 BP Location: Left arm Left arm Left arm Patient Position: Lying Sitting Pulse: 84 74 76 Resp: 16 18 18 Temp: 37.1 C (98.8 F) 37 C (98.6 F) 36.7 C (98.1 F) TempSrc: Oral Oral Oral SpO2: 95% 94% 91% 94% Weight: Height: Physical Exam Vitals and nursing note reviewed. Constitutional: Appearance: Normal appearance. HENT: Head: Normocephalic and atraumatic. Cardiovascular: Rate and Rhythm: Normal rate and regular rhythm. Pulses: Normal pulses. Heart sounds: Normal heart sounds. Pulmonary: Effort: Pulmonary effort is normal. No respiratory distress. Breath sounds: Normal breath sounds. Musculoskeletal: General: Signs of injury present. Comments: LLE: Dry dressing Skin: General: Skin is warm and dry. Neurological: General: No focal deficit present. Mental Status: She is alert and oriented to person, place, and time. Psychiatric: Mood and Affect: Mood normal. Behavior: Behavior normal. Laboratory independently reviewed Recent Labs Lab 10/30/20 0222 10/31/20 0403 11/03/20 0644 NA 134* 134* 136 K 3.5 3.2* 4.1 CL 99 99 99 BICARBONATE 23 23 24 BUN 6 8 10 CREATININE 1.13* 1.13* 1.14* GLUCOSE 93 91 106 Recent Labs Lab 10/28/20 0047 10/28/20 0047 10/29/20 0011 10/30/2022110/31/20 0403 WBC 8.0 < > 6.3 5.7 4.8 HGB 11.1* < > 8.7* 9.0* 8.8* HCT 32.2* < > 24.8* 26.4* 25.8* MCV 89.8 < > 88.3 89.4 89.5 PLT 211 < > 183 185 178 NEUTOPHILPCT 75 -- 80 75 -- MONOPCT 7 -- 5 7 -- < > = values in this interval not displayed. Lab Results Component Value Date PROT 7.3 11/03/2020 ALBUMIN 4.2 11/03/2020 AST 17 11/03/2020 ALT <5 11/03/2020 TBILI 0.6 11/03/2020 ALKPHOS 93 11/03/2020 No results for input(s): INR in the last 168 hours. Invalid input(s): APT No results for input(s): CKTOTAL, TROPONINI, TROPONINT, CKMB, CK in the last 168 hours. Lab Results Component Value Date TSH 16.720 (H) 10/26/2020 Finger stick glucose levels: MICROBIOLOGY: IMAGING independently reviewed: MEDICATIONS: Scheduled Meds: acetaminophen (TYLENOL) tablet 650 mg Oral Once buPROPion 450 mg Oral Daily busPIRone 10 mg Oral BID enoxaparin 40 mg Subcutaneous Daily gabapentin 800 mg Oral TID levothyroxine 175 mcg Oral Daily methadone 145 mg Oral Daily QUEtiapine 200 mg Oral Nightly trazodone 50 mg Oral Nightly Continuous Infusions: ropivacaine 500 mg (11/02/20 0459) ropivacaine PRN Meds:.acetaminophen (TYLENOL) tablet, albuterol, oxyCODONE Assessment & Plan: Deborah Webb is a 40 y.o. female who is here for left leg fracture. Principal Problem: Leg fracture, left, closed, initial encounter Active Problems: Akinesia #Left tibular-fibular fracture -Continue multimodal pain management IV/PO -Methadone dose was restarted at 145 mg daily -Was started on Lovenox 40 mg daily -ORIF on 10/28: Will continue to monitor pain H&H and vitals post op -Pain management performed popliteal and femoral nerve blocks 10/29: will continu e to monitor pain -Neurology recommending CT head -?cough syncope #Chronic opioid dependence -Addiction psychiatry consultation post-operatively and transitioned back to [facility] Methadone therapy post-op -Was able to contact [facility] 10/30 to confirm home dose of Methadone. Is currently on 145 mg oral solution daily. Will continue that dose while in the hospital #Depression -Will continue current psychotropic regimen #Hypothyroidism -Currently on Synthroid; will continue to monitor TSH and thyroid status post op #Sarcoidosis -Not currently on any treatment. Monitor pulmonary status post-operatively DVT Prophylaxis: Lovenox Functional Status: Moderately Impaired Code Status: Full Code Disposition: Plan discharge to: Rehab Estimated Discharge Date: JAYLENE Matias Hospitalist Medicine Team [place] [id number] Parts of this note were copied from other notes in order to promote consistency and continuity of care. Associated attestation - Shaggy Gilmore MD - 11/03/2020 5:26 PM EDT I saw and evaluated the patient. Discussed with the non-physician practitioner and agree with the non-physician practitioner findings and plan as documented in their note. ORthostatic VS positive, will monitor if improvement with med aguilar es recommended by psychiatry. Shaggy Gilmore MD * Demetrio Estes MD - 11/03/2020 1:35 PM EDT Name: Deborah Webb Date of : 1980 Date of Admission: 10/26/2020 PSYCHIATRY CONSULTATION DAILY PROGRESS NOTE Brief HPI: Per Dr. Bojorquez's note on 11/02/2020: "The patient is a 40 year old female with a PMH significant for sarcoidosis, daniela ysubstance use (alcohol, hydrocodone, oxycodone/paracetamol, alprazolam, ampheta mine/dextroamphetamine), anxiety, GERD, hypothyroidism who presented to the hosp ital for a broken foot 2/2 fall. The patient has been experiencing falls for th e past 2 years. The patient is unaware of any changes that directly preceded th e start of her falls. Her only medication change was that buspirone was started . She reports that the frequency changes, sometimes she falls a couple times a month and sometimes a couple times a week. The patient denies lightheadedness, dizziness, confusion, headaches, palpations, visual disturbances, or loss of con sciousness along with her falls. She reports she has no symptoms and no warning prior to a fall. The patient reports predominantly falling to her left side. She previously injured her left ankle, and has now broken her left foot. The patient developed an addiction to hydrocodone and oxycodone/paracetamol whic h she was getting from a partner. She was never prescribed them, she was taking them to produce a euphoric mood. Her drug addiction led to her [facility] obtaining full custody. She is currently receiving methadone treatment. The patient will require inpatient rehab due to her broken foot but she will not be able to receive methadone at such a facility. She reports that she does not li ke the taste of buprenorphine or the way it makes her feel and so she is not lidia ling to switch to it. The patient reports a desire to wean herself off methadon e but frequently voiced concern that we would reduce her dose without consulting her." INTERVAL HISTORY: Patient was seen at the bedside today. She reports that her mo od is "good". She denies any new episodes of falls, vertigo, lightheadedness, or loss of balance. Patient states that she has "some" pain in her left leg where she suffered the fracture, but that the oxycodone and methadone are helping. Brianna silver was able to sleep well last night, despite her trazodone being decreased fr om 100mg to 50mg. She said that she had just recently started taking the prazosi n, so cannot state with confidence whether stopping it had made any difference i n terms of her falls. Today patient appeared restless and states that she's anxious. When asked if the anxiety is in relation to something specific, she states "just life". The patie nt then became teary-eyed. Patient states that she feels "forgotten" at the hosp ital and states that she experienced withdrawal prior to the initiation of her m ethadone dose. Patient denies any passive or active suicidal or homicidal ideati on. Patient states that she has a history of self arm and shows the lacerations on her left wrist, but denies having any thoughts of harming herself right now. Patient further denies auditory of visual hallucinations, or any paranoid though ts or ideas of reference. PSYCHIATRIC ROS: See HPI for pertinent positives and negatives IN-PATIENT MEDICATIONS: acetaminophen (TYLENOL) tablet 650 mg Oral Once buPROPion 450 mg Oral Daily busPIRone 10 mg Oral BID enoxaparin 40 mg Subcutaneous Daily gabapentin 800 mg Oral TID levothyroxine 175 mcg Oral Daily methadone 145 mg Oral Daily QUEtiapine 200 mg Oral Nightly trazodone 50 mg Oral Nightly VITALS: Vitals: 11/03/20 0335 11/03/20 0345 11/03/20 0748 11/03/20 1129 BP: 106/68 120/90 100/72 Pulse: 78 84 74 Resp: 16 16 18 Temp: 36.9 C (98.4 F) 37.1 C (98.8 F) 37 C (98.6 F) SpO2: (!) 89% 95% 94% 91% PERTINENT LABS: Labs and diagnostics reviewed. EKG: QTc: 459 MENTAL STATUS EXAM: General Appearance: Patient is a obese 40 y.o. female who appears the stated ag e. She has fair hygiene. She is sitting in bed.She is dressed in a hospital gown . She has left forearm lacerations. Behavior: Attitude: Patient is cooperative. Psychomotor: Patient exhibits lip smacking and restlessness. Eye Contact: Eye contact is appropriate. Speech: Patient's speech is spontaneous. Speech quantity: normal. Rate is normal . Volume is normal. Mood: "Good". Affect: Affect is euthymic, stable and congruent with stated mood. Patient appea rs to have full range. Thought Process: Thought process is linear, coherent and goal directed. Thought Content: Patient does not express active suicidal ideation, passive suic idal ideation, active homicidal ideation, delusions of persecution, delusions of guilt and ideas of reference. Perceptions: Patient is not internally preoccupied. Patient does not have audito ry hallucinations or visual hallucinations. Cognition: Cognition is grossly intact. She does not appear disoriented. Insight: Fair Judgement: Fair DSM-5 DIAGNOSES: 292.9 (F11.99) Unspecified Opioid-Related Disorder, on methadone maintenance the rapy 311 (F32.9) Unspecified Depressive Disorder , previously diagnosed 300.02 (F41.1) Generalized Anxiety Disorder , previously diagnosed 309.81 (F43.10) Posttraumatic Stress Disorder (includes Posttraumatic Stress Dis order for Children 6 Years and Younger), without dissociative symptoms,without d elayed expression , previously diagnosed 314.01 (F09.9) Unspecified Attention-Deficit/Hyperactivity Disorder, Moderate , previously diagnosed ASSESSMENT: The patient is a 40 year old female with a PMH significant for sarcoidosis, poly substance use (alcohol, hydrocodone, oxycodone/paracetamol, alprazolam, amphetam ine/dextroamphetamine), anxiety, GERD, hypothyroidism who presented to the [facility] for a broken foot 2/2 fall. The patient reports that no loved ones have laya r seen her fall and there is no one we can call for collateral information regar ding how the falls look. Our differential includes neurologic dysfunction. We recommend a neurology consult for an evaluation of these potential pathologies. Our differential includes orthostatic hypertension so we recommend obtaining or thostatic vitals and discontinuing prazosin. The patient's psychiatric medicati ons may also be contributing to her falls. At this time she is willing to stop trazodone so we recommend reducing trazodone to 50 mg nightly. Our differential includes conversion disorder but all other potential causes must be ruled out. Today patient appears to be restless and anxious, but denies any SI, HI, AVH, de lusions of persecution, delusions of guilt, delusions of grandeur, and ideas of reference. She states that she has not experienced any falls ever since being ad mitted to the hospital and has not felt like she was going to fall although sloane ent seems concerned about the possibility. She states that she did not notice an y adverse effects with the discontinuing of prazosin and the decreased dose of t razodone. PLAN/Recommendations: Disposition: Discharge to rehab per primary team Legal Status: None Safety/Level of Observation: Routine observation Scheduled Medications: Bupropion 450 mg daily Buspirone 10 mg BID Gabapentin 800 mg TID Methadone 145 mg daily Quetiapine 200 mg nightly Continue Trazodone to 50 mg nightly Prazosin 1 mg nightly discontinued PRN/Agitation Medications: None Referrals: Neurology consulted; none other at the time. Inpatient Follow Up: Psychiatry will follow Other Recommendations: Obtain orthostatic vitals Tasks Requiring Follow Up: None Next Outpatient Appointment(s): Continue with established outpatient providers Safety Planning: N/A Consult team will continue to follow daily and if there are any questions or con cerns, please feel free to contact team. The above plan was discussed with Dr. Sherwood, the acting attending physician fo r this patient, who is in agreement with the above. The attending of record is Kinza Stock. Demetrio Estes MD Psychiatry PGY-1 Associated attestation - Huong Stock MD - 11/08/2020 11:11 AM EDT I was the attending of record for this case. The on site acting attending (PGY4 ) has evaluated the patient and formulated a plan with the erica resident. Yani ac reviewed the documentation and agree with the resident's note. I did not ev aluate this patient and have not billed for services. * Adtii Barber, PT - 11/03/2020 1:19 PM EDT Physical Therapy Acute Care Missed Visit Note Location: bedside Attempted to visit patient for therapy, but was unable for the following reasons: Patient unable to tolerate secondary to pain. Pt is very agitated and angry in the room, reporting that she is upset that she has not had pain medication. Contacted RN, who is off the floor with another patient and can't give meds at this time. pt declining participation in PT without her pain medication. (Therapist may be reached on Vocera) SESSION: Duration: 0 CHARGES: - CHARGE- IP PT PATIENT COULDNT TOLERATE 2ND TO PAIN 1 Units - ORDER - Physical Therapy Treatment 1 Units Total treatment minutes: 0.00 Minutes Electronically Signed by: Aditi Barber PT, DPT, 11/03/2020 1:22:30 PM * Yariel Barnes MD - 11/03/2020 11:54 AM EDT Peripheral Nerve Block Progress Note Subjective: PNB day: 3 days Location: left Pop/Saph Infusion: Ropivicaine 0.2% @ 6ml/hr for Pop, Ropivicaine 0.2% @ 6ml/hr for Saph Interval History: Patient seen resting comfortably in bed this morning. No acute events overnight. Pop/saph PNB sights absent of erythema or fluctuance. Patient states pain is completely controlled during the day with morning dose of methad one. Pain described as achy and rated as 6/10 this morning. ROS: Paresthesias? no, Weakness? no Symptoms of local anesthetic toxicity: perioral numbness? no Dizziness? no Seizu re-like activity? no Mental status changes? no Cardiac abnormalities? no Current Medications: acetaminophen (TYLENOL) tablet 650 mg Oral Once buPROPion 450 mg Oral Daily busPIRone 10 mg Oral BID enoxaparin 40 mg Subcutaneous Daily gabapentin 800 mg Oral TID levothyroxine 175 mcg Oral Daily methadone 145 mg Oral Daily QUEtiapine 200 mg Oral Nightly trazodone 50 mg Oral Nightly PRN: acetaminophen (TYLENOL) tablet 650 mg Q4H PRN, morphine sulfate (PF) 4 mg Q4H AZ N, oxyCODONE 5 mg Q4H PRN Current Hospital Problem List: Principal Problem: Leg fracture, left, closed, initial encounter Active Problems: Akinesia History reviewed. No pertinent surgical history. Objective: Vital signs in last 24 hours: Vitals: 11/03/20 0335 11/03/20 0345 11/03/20 0748 11/03/20 1129 BP: 106/68 120/90 100/72 BP Location: Left arm Left arm Left arm Patient Position: Lying Lying Sitting Pulse: 78 84 74 Resp: 16 16 18 Temp: 36.9 C (98.4 F) 37.1 C (98.8 F) 37 C (98.6 F) TempSrc: Oral Oral Oral SpO2: (!) 89% 95% 94% 91% Weight: Height: Intake/Output last 3 shifts: I/O last 3 completed shifts: In: 1010 [P.O.:1010] Out: - Data Review CBC: Lab Results Component Value Date WBC 4.8 10/31/2020 RBC 2.88 (L) 10/31/2020 HGB 8.8 (L) 10/31/2020 HCT 25.8 (L) 10/31/2020 PLT 178 10/31/2020 BMP: Lab Results Component Value Date NA 136 11/03/2020 K 4.1 11/03/2020 CL 99 11/03/2020 BICARBONATE 24 11/03/2020 GLUCOSE 106 11/03/2020 BUN 10 11/03/2020 CREATININE 1.14 (H) 11/03/2020 BCR 9 11/03/2020 GFRAA 70 11/03/2020 GFRNONAA 60 (L) 11/03/2020 Hepatic Panel: Lab Results Component Value Date ALBUMIN 4.2 11/03/2020 ALKPHOS 93 11/03/2020 ALT <5 11/03/2020 AST 17 11/03/2020 PROT 7.3 11/03/2020 TBILI 0.6 11/03/2020 Coagulation: Lab Results Component Value Date INR 1.06 10/26/2020 Exam: NAD, AAO x 3 NCAT CVSS No respiratory distress Extremities- WWP; catheter sites=c/d/i, no surrounding erythem or pain Assessment/Plan: 40 y.o. year old female with peripheral nerve catheter day 3. Pain is adequately controlled on current regimen for both the popliteal & saphenous nerve block. Considered discontinuing block today. Patient requested one more day. Will remove catheters tomorrow. 1. Continue current rate of saphenous NB Ropivicaine 0.2% at 6ml/hr 2. Continue current rate of Pop NB Ropivicaine 0.2% at 6ml/hr 3. Consider multimodal approach to pain management. Consider using Robaxin 500 Q ID for increased pain control if needed 5. APS will continue to follow Patient discussed with Dr Costa who is in agreement with the plan. Yariel Barnes MD Interventional Pain Management Fellow Associated attestation - Aixa Costa MD - 11/03/2020 12:20 PM EDT I saw and evaluated the patient. Discussed with the resident and agree with the residents findings and plans as written, along with any supplemental dictated a nd/or attending documentation in the patient record by myself. * Aditi Barber, PT - 11/03/2020 8:54 AM EDT Physical Therapy Acute Care Treatment Note Medical Diagnosis: s/p fall from standing - left mid shaft tibia fracture comminuted with segmental fibula fracture s/p 10/28/[address] Ervin PROCEDURE PERFORMED: 1. IM nail of left tibial shaft fracture. 2. Closed treatment of left fibular fracture with manipulation. CT 10/27/2020 Old well-corticated avulsion fracture fragment the medial condyle. Rehabilitation Precautions/Restrictions: Per Ortho note on 10/29/20: "Toe touch weightbearing as tolerated to the LLE" OOB with assistance High fall risk Goal Review Visit Number: 7 SUBJECTIVE Patient Report: Hoping they don't stop her gabapentin. Pain: Patient currently complains of pain. Location: L LE . Patient describes pain as Nonspecific. Verbal Scale: Patient reports a pain level of 8 out of 10. Will perform therapy only as tolerated. Pain Medication Today: yes. OBJECTIVE General Observation: Female in bed, 2 PNB to LLE Vital Signs: Stable. Range of Motion:No change observed. Strength:No change observed. Skin Integrity Screen: Visible areas grossly intact. Bandage semi-intact to left lower extremity below knee, PNB x2 LLE Quarter-sized bruise to LLE above bandage Berthoud visible on LLE above and below knee; mild erythema to periwound above knee Functional Status: Transfers: Patient transferred sit to/from stand with modified independence. Bed Mobility: Within functional limits. Locomotion/Wheelchair: Not assessed. Locomotion/Gait/Ambulation: Patient was stand by assist with gait/ambulation for 15 ft x2 . Patient requires the following assistive device(s): Rolling walker. Stairs: Patient was minimal assist of 1 person for attempted 1 step, but did not complete due to fear/pain/anxiety. . Patient used the following equipment: Bilateral Railing. Outcome Measures: [facility] AM-PAC "6 Clicks" Basic Mobility Inpatient Short Form: Turning over in bed: Unable to perform (1) Sitting down on and standing up from a chair with arms: Unable to perform (1) Moving from lying on back to sitting on the side of the bed: Unable to perform (1) Moving to and from a bed to a chair (including a wheelchair): A little help (3) Walking in hospital room: A little help (3) Climbing 3-5 steps with a railing: A lot of help (2) Raw Score 11 /24. Interventions: Gait Training: Pt ambulated 2x15 ft with rolling wlker, with cues for WB status and safety. Pt was transported to PT gym for stair training. Attempted stair training, but on first attempt at single step, pt immediately became fearful and anxious, stating she is afraid she will put too much weight on leg and doesn't trust the railing. Pt was allowed to recover, dcued for breathing, provided reassurance and distraction, but pt was too anxious and not able to try again. Ultimately needed to return pt to room due to persistant anxiety. Therapeutic Exercise: To promote muscle activation and ROM in LLE, pt was instructed in and performed: Quad set with repeated verbal and tactile cues, using RLE at the same time for carryover - much improved with practice - pt was instructed in doing these outside of therapy. SAQ x10- through partial ROM Passive stretch into ankle dorsiflexion 3x30 sec. Education: Mode of education provided: Explanation. Demonstration. Audience: Patient. Education Provided: Home exercise program, treatment plan. . Response: Applied knowledge. ASSESSMENT Response to Visit: The session was tolerated well. Pain: Yes, pain is unchanged from start of today's treatment. Goal review: Stair training limited by anxiety, but doing well with bed mobility, transfers and short distance walking. Quad activation improved with training today. Changes in or Continuation of Plan of Care: Patient will benefit from continued therapy to achieve planned goals. PLAN Treatment Frequency, Duration and Interventions: Restorative Physical Therapy is recommended for 2x a day for 2 weeks Treatment is to include: Therapeutic Exercise. Therapeutic Activity. Neuromuscular Re-education. Gait Training. Equipment Provided: None issued this visit. Equipment Recommended: None. Recommended Physical Therapy Follow Up: Upon acute care discharge, the following is currently recommended: Anticipate patient will have inpatient rehab needs beyond the acute stay. If patient were to return home; she would require home PT and supervision/assistance with mobility as needed. Recommended Consults: None currently. Development of Plan of Care: Participants included: Patient. Visit Number: Today's visit is number 8 Program: Orthopedics (Therapist may be reached on [place] [employer]) SESSION: Duration: 25 CHARGES: 89454 - CHARGE - PT GAIT TRNG - 15 MIN 1 Units 65541 - CHARGE - PT THER EX - 15 MIN 1 Units - ORDER - Physical Therapy Treatment 1 Units - ORTHOPEDIC VISIT 1 Units Total treatment minutes: 25.00 Minutes Electronically Signed by: Aditi Barber PT, DPT, 11/03/2020 9:04:30 AM * Jammie Toney RN - 11/02/2020 6:56 PM EDT Orthostatic BPs completed by this RN. This RN requested patient to cough upon si tting and after standing for three minutes. Vitals as follows: 11/02/20 1834 11/02/20 1836 11/02/20 1839 Vitals Pulse 84 97 (!) 101 Heart Rate Source Automatic Automatic Automatic BP 115/66 113/80 130/81 BP Method Automatic Automatic Automatic MAP (Monitor) 82 91 97 Patient Position Lying Sitting Standing 11/02/20 1841 Vitals Pulse (!) 103 Heart Rate Source Automatic BP 94/75 BP Method Automatic MAP (Monitor) 81 Patient Position Standing RN. Pt * Cody White - 11/02/2020 2:54 PM EDT Physical Therapy Acute Care Treatment Note Medical Diagnosis: s/p fall from standing - left mid shaft tibia fracture comminuted with segmental fibula fracture s/p 10/28/[address] Ervin PROCEDURE PERFORMED: 1. IM nail of left tibial shaft fracture. 2. Closed treatment of left fibular fracture with manipulation. CT 10/27/2020 Old well-corticated avulsion fracture fragment the medial condyle. Rehabilitation Precautions/Restrictions: Per Ortho note on 10/29/20: "Toe touch weightbearing as tolerated to the LLE" OOB with assistance High fall risk Goal Review Visit Number: 6 SUBJECTIVE Patient Report: Patient willing to participate in therapy Pain: Patient has no complaints of pain currently. Pain Medication Today: yes. OBJECTIVE General Observation: Recieved patient sleeping side lying in bed. + x2 PNB No bed alarm noted at start of session. Vital Signs: Stable, asymptomatic throughout session Range of Motion:No change observed. Strength:No change observed. Skin Integrity Screen: Visible areas grossly intact. Bandage semi-intact to left lower extremity below knee, PNB x2 LLE Quarter-sized bruise to LLE above bandage Berthoud visible on LLE above and below knee; mild erythema to periwound above knee Functional Status: Transfers: Patient transferred sit to/from stand with modified independence. Patient used the following equipment: Arms of chair. Patient used the following equipment: rolling walker. Patient used the following equipment: Gait belt - use per hospital policy. Patient maintains TTWB Bed Mobility: Within functional limits. Locomotion/Wheelchair: Not applicable for this patient at this time. Locomotion/Gait/Ambulation: Patient was supervision with gait/ambulation for Approximately 50 feet . Patient requires the following assistive device(s): Rolling walker. Gait belt - use per hospital policy. Patient maintains TTWB. Patient requires frequent rest breaks due to fatigue Stairs: Patient was contact guard assist of 2 persons for 3 steps up/down . Patient used the following equipment: Unilateral Railing. Axillary Crutches. Gait belt - use per hospital policy. Patient maintains TTWB. Requires consistent cues throughout Outcome Measures: [facility] AM-PAC "6 Clicks" Basic Mobility Inpatient Short Form: Turning over in bed: No difficulty (4) Sitting down on and standing up from a chair with arms: A little difficulty (3) Moving from lying on back to sitting on the side of the bed: No difficulty (4) Moving to and from a bed to a chair (including a wheelchair): A little help (3) Walking in hospital room: A little help (3) Climbing 3-5 steps with a railing: A little help (3) Raw Score 20 /24. Interventions: Gait Training: Facilitated stair training to increase tolerance to activity and increase independence. Patient utilized left handrail and right axillary crutch to simulate stairs in home environment. Provided demonstration for appropriate technique. Provided verbal cues for LE sequencing and encouragement throughout. Patient ambulated as described above to increase tolerance to activity and independence within the home. Patient required frequent rest breaks due to fatigue. Educated patient on pacing and energy conservation techniques. Education: Mode of education provided: Explanation. Audience: Patient. Education Provided: Importance of activity. Mobility Techniques. Role of Physical Therapy. Safety. Treatment Plan. Response: Verbalized understanding. Needs practice/reinforcement. ASSESSMENT Response to Visit: The session was tolerated well. Patient able to negotiate stairs with axillary crutch despite anxiety. Patient continues to be limited by fatigued. Patient left supine in bed. All needs met. Call oseguera was in patient's reach at end of session. Pain: Patient has no complaints of pain currently. Goal review: All goals ongoing Changes in or Continuation of Plan of Care: Patient will benefit from continued therapy to achieve planned goals. PLAN Treatment Frequency, Duration and Interventions: Restorative Physical Therapy is recommended for 2x a day for 2 weeks Treatment is to include: Gait Training. Neuromuscular Re-education. Therapeutic Activity. Therapeutic Exercise. Self Care/Home Management. Equipment Provided: None issued this visit. Equipment Recommended: To be assessed. Recommended Physical Therapy Follow Up: Upon acute care discharge, the following is currently recommended: Primary recommendation is rehab. If patient were to return home; she would require home PT and supervision/assistance with mobility as needed. If patient were to return home patient would have tolerate more stairs with more independence. Recommended Consults: None currently. Development of Plan of Care: Participants included: Nurse. Patient. Visit Number: Today's visit is number 7 Program: Orthopedics (Therapist may be reached on [place] [employer]) SESSION: Duration: 25 CHARGES: - ORDER - Physical Therapy Treatment 1 Units 71417 - CHARGE - PT GAIT TRNG - 15 MIN 2 Units - ORTHOPEDIC VISIT 1 Units Total treatment minutes: 25.00 Minutes Electronically Signed by: Cody White, Student PT, 11/02/2020 3:39:48 PM - CoSigned By: Juan Lowry, PT, DPT, 11/06/2020 1:45:38 PM * Julisa Zamorano, TOOL TECHNICIAN - 11/02/2020 1:51 PM EDT Internal Medicine Inpatient Progress Note Length of stay- 7 Subjective: Ms. Deborah Webb is a 40 year old female who came in for left l eg fracture. Patient mentioned that she is doing better and needs to get stronge r so that she can go home. She stated that she talked to her boyfriend and it do esn't seem that he wants her to come to his place, so she needs to go back to he r place. She also mentioned that no other places will take her with Methadone. S he stated that she was afraid to talk to Psychiatry because they keep changing h er medications and she doesn't want things to keep changing like that. Review of Systems Constitutional: Negative for activity change and appetite change. Respiratory: Negative for shortness of breath. Cardiovascular: Negative for chest pain. Gastrointestinal: Negative for diarrhea, nausea and vomiting. Musculoskeletal: Left leg pain Neurological: Negative for dizziness and headaches. Objective: Vitals: 11/02/20 0042 11/02/20 0510 11/02/20 0811 11/02/20 1155 BP: 122/74 119/75 117/81 92/72 BP Location: Left arm Right arm Patient Position: Lying Lying Lying Pulse: 96 89 96 83 Resp: 16 14 16 16 Temp: 37.9 C (100.2 F) 37 C (98.6 F) 37 C (98.6 F) 37.3 C (99.1 F) TempSrc: Oral Oral Oral SpO2: 94% 92% (!) 87% Weight: Height: Physical Exam Vitals and nursing note reviewed. Constitutional: Appearance: Normal appearance. HENT: Head: Normocephalic and atraumatic. Cardiovascular: Rate and Rhythm: Normal rate and regular rhythm. Pulses: Normal pulses. Heart sounds: Normal heart sounds. Pulmonary: Effort: Pulmonary effort is normal. No respiratory distress. Breath sounds: Normal breath sounds. Musculoskeletal: General: Signs of injury present. Comments: LLE: Dry dressing Skin: General: Skin is warm and dry. Neurological: General: No focal deficit present. Mental Status: She is alert and oriented to person, place, and time. Psychiatric: Mood and Affect: Mood normal. Behavior: Behavior normal. Laboratory independently reviewed Recent Labs Lab 10/29/20 0011 10/30/2022110/31/20 0403 NA 139 134* 134* K 3.2* 3.5 3.2* CL 103 99 99 BICARBONATE 23 23 BUN 8 6 8 CREATININE 1.05* 1.13* 1.13* GLUCOSE 97 93 91 Recent Labs Lab 10/28/20 0047 10/28/20 0047 10/29/20 0011 10/30/2022110/31/20 0403 WBC 8.0 < > 6.3 5.7 4.8 HGB 11.1* < > 8.7* 9.0* 8.8* HCT 32.2* < > 24.8* 26.4* 25.8* MCV 89.8 < > 88.3 89.4 89.5 PLT 211 < > 183 185 178 NEUTOPHILPCT 75 -- 80 75 -- MONOPCT 7 -- 5 7 -- < > = values in this interval not displayed. No results found for: PROT, ALBUMIN, AST, ALT, TBILI, ALKPHOS, LIPASE, AMYLASE R ecent Labs Lab 10/26/201911 INR 1.06 Recent Labs Lab 10/26/201911 CK 143 Lab Results Component Value Date TSH 16.720 (H) 10/26/2020 Finger stick glucose levels: MICROBIOLOGY: IMAGING independently reviewed: MEDICATIONS: Scheduled Meds: acetaminophen (TYLENOL) tablet 650 mg Oral Once buPROPion 450 mg Oral Daily busPIRone 10 mg Oral BID enoxaparin 40 mg Subcutaneous Daily gabapentin 800 mg Oral TID levothyroxine 175 mcg Oral Daily methadone 145 mg Oral Daily prazosin 1 mg Oral Nightly QUEtiapine 200 mg Oral Nightly trazodone 100 mg Oral Nightly Continuous Infusions: ropivacaine 500 mg (11/02/20 0459) ropivacaine PRN Meds:.acetaminophen (TYLENOL) tablet, albuterol, oxyCODONE Assessment & Plan: Deborah Webb is a 40 y.o. female who is here for left leg fracture. Principal Problem: Leg fracture, left, closed, initial encounter Active Problems: Akinesia #Left tibular-fibular fracture -Continue multimodal pain management IV/PO -Methadone dose was restarted at 145 mg daily -Was started on Lovenox 40 mg daily -ORIF on 10/28: Will continue to monitor pain H&H and vitals post op -Pain management performed popliteal and femoral nerve blocks 10/29: will continu e to monitor pain #Chronic opioid dependence -Addiction psychiatry consultation post-operatively and transitioned back to [facility] Methadone therapy post-op -Was able to contact [facility] 10/30 to confirm home dose of Methadone. Is currently on 145 mg oral solution daily. Will continue that dose while in the hospital #Depression -Will continue current psychotropic regimen #Hypothyroidism -Currently on Synthroid; will continue to monitor TSH and thyroid status post op #Sarcoidosis -Not currently on any treatment. Monitor pulmonary status post-operatively DVT Prophylaxis: Lovenox Functional Status: Moderately Impaired Code Status: Full Code Disposition: Plan discharge to: Rehab Estimated Discharge Date: TBD JAYLENE Matias Hospitalist Medicine Team [place] [id number] Parts of this note were copied from other notes in order to promote consistency and continuity of care. Associated attestation - Shaggy Gilmore MD - 11/02/2020 6:27 PM EDT I saw and evaluated the patient. Discussed with the non-physician practitioner and agree with the non-physician practitioner findings and plan as documented in their note. PT/OT continuing to work with patient. Appreciate psychiatry evalu ation. Shaggy Gilmore MD * Alf Bojorquez DO - 11/02/2020 12:17 PM EDT ADULT PSYCHIATRY CONSULTATION NOTE Patient Deborah Webb 1980 Date of Admission 10/26/2020 PSYCHIATRIC EVALUATION SOURCES OF INFORMATION: patient REASON FOR CONSULT: Medication reconcilliaton CHIEF COMPLAINT: "I get off balance" HISTORY OF PRESENT ILLNESS: The patient is a 40 year old female with a PMH significant for sarcoidosis, poly substance use (alcohol, hydrocodone, oxycodone/paracetamol, alprazolam, amphetam ine/dextroamphetamine), anxiety, GERD, hypothyroidism who presented to the [facility] for a broken foot 2/2 fall. The patient has been experiencing falls for the past 2 years. The patient is unaware of any changes that directly preceded the start of her falls. Her only medication change was that buspirone was started. She reports that the frequency changes, sometimes she falls a couple times a m onth and sometimes a couple times a week. The patient denies lightheadedness, d izziness, confusion, headaches, palpations, visual disturbances, or loss of cons ciousness along with her falls. She reports she has no symptoms and no warning prior to a fall. The patient reports predominantly falling to her left side. S he previously injured her left ankle, and has now broken her left foot. The patient developed an addiction to hydrocodone and oxycodone/paracetamol whic h she was getting from a partner. She was never prescribed them, she was taking them to produce a euphoric mood. Her drug addiction led to her [facility] obtaining full custody. She is currently receiving methadone treatment. The patient will require inpatient rehab due to her broken foot but she will not be able to receive methadone at such a facility. She reports that she does not li ke the taste of buprenorphine or the way it makes her feel and so she is not lidia ling to switch to it. The patient reports a desire to wean herself off methadon e but frequently voiced concern that we would reduce her dose without consulting her. The patient reports that her moods are "ok" today. She reports that she is slee ping well, enjoys reading and going to yazdanism, has a normal appetite, is able to concentrate, and denies suicidal ideation. She reports low energy and feelings of guilt due to how her drug use impacted her family. She reports that she fee ls much less guilty now than in the past. In the past she felt suicidal ideatio n and had a plan to walk into a river and drown herself. She never attempted murillo icide due to thoughts about how her would hurt her daughters. She has eng aged in superficial cutting of her wrists. COLLATERAL CONTACTS: Patient refused to allow psychiatry to speak to her significant other. PSYCHIATRIC REVIEW OF SYSTEMS: Psychiatric Review of Systems: Psychosis: Patient does not have visual hallucinations or auditory hallucination s. Depression: Patient has Depression, guilt/feelings of worthlessness and decrease d energy. Patient does not exhibit psychomotor retardation or psychomotor agitat ion. Patient does not have depressed mood, decreased sleep, anhedonia, decreased concentration, decreased appetite, suicidal ideation or homicidal ideation. Post Traumatic Stress Disorder: Patient has PTSD. Patient reports a history of t rauma, avoids stimuli associated with trauma and re-experiences trauma through n ightmares or flashbacks. Patient exhibits hypervigilance/increased arousal. PAST PSYCHIATRIC HISTORY: Past diagnoses: MDD, LEIF, PTSD, ADHD Past Treatment: inpatient and outpatient Therapist: "Kalpana" at [facility] Psychiatrist/optical engineering manager: "Yasmin" an TOOL TECHNICIAN at [facility] in [place] Past Medication Trials and Effects: Previously prescribed alprazolam and amphet amine/dextroamphetamine, she stopped as she felt she had developed addiction to them Other Treatment Team Members: Denies ED/CPEP Visits: multiple Inpatient or residential admission: multiple Self-harm: Superficial cutting of her wrist Violence/aggression: Denies Suicide Attempts: Denies Access to firearms: Denies SUBSTANCE USE HISTORY: Alcohol: History of alcoholism, currently does not drink any alcohol Drugs: History of addiction to hydrocodone, oxycodone/paracetamol, alprazolam, and amphetamine/dextroamphetamine; denies ever using "street drugs" Nicotine: Inhales 10 cigarettes per day (1/2 pack), has not been using any michael ej replacement during this hospitalization and reports that her cravings have resolved, she reports she will attempt to not use nicotine following discharge Vaping/Juuling or other e-cigarettes: Denies Past Substance use disorder treatment: Yes, currently receives addiction treatm ent through [facility], treated with methadone CURRENT MEDICATIONS: Bupropion 450 mg daily Buspirone 10 mg BID Gabapentin 800 mg TID Methadone 145 mg daily Prazosin 1 mg nightly Quetiapine 200 mg nightly Trazodone 100 mg nightly PAST MEDICAL HISTORY: Sarcoidosis Hypothyroidism GERD ALLERGIES: Patient has no known allergies. FAMILY HISTORY: Mental illness: The patient was raised in foster care so family history could n ot be obtained Substance use disorder: The patient was raised in foster care so family history could not be obtained Suicide attempts: The patient was raised in foster care so family history could not be obtained SOCIAL HISTORY: Living Situation: Lives on the 3rd floor on a building without an elevator Education: Highest level completed: Not addressed IQ/Learning disability/Special accommodations needed: Not addressed Significant Other: Boyfriend, Guillermo Children: 3 daughters Trauma: Yes, previous diagnosis of PTSD, specifics not addressed Abuse: Not addressed Bullying: Not addressed Gender identity and sexual orientation: Not addressed Supports: Boyfriend, reports she "feels alone" Legal Issues: Not addressed Experience: Not addressed Other: Not applicable Developmental History: In Utero Exposure: Not addressed Delivery: Not addressed 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 Illnesses/Surgeries/Hospitalizations: Not addressed Milestones: Not addressed PT/OT/Speech: Not addressed LABORATORY AND DIAGNOSTIC TEST RESULTS: Results for orders placed or performed during the hospital encounter of 10/26/20 (from the past 72 hour(s)) Basic Metabolic Panel Collection Time: 10/31/20 4:03 AM Result Value Ref Range Bicarbonate 23 22 - 29 mmol/L Chloride 99 98 - 107 mmol/L Creatinine 1.13 (H) 0.50 - 0.90 mg/dL Glucose 91 70 - 140 mg/dL Potassium 3.2 (L) 3.4 - 5.1 mmol/L Sodium 134 (L) 136 - 145 mmol/L Blood Urea Nitrogen 8 6 - 20 mg/dL Anion Gap 12 8 - 15 mmol/L Osmolality, Harini 277 275.0 - 300.0 mosm/kg BUN/Cre Ratio 7 Calcium 8.9 8.6 - 10.0 mg/dL GFR Non 2008 CDK-EPI 61 >60 mL/min/1.73m2 GFR 2008 CKD-EPI 71 >60 mL/min/1.73m2 CBC Collection Time: 10/31/20 4:03 AM Result Value Ref Range White Blood Cell 4.8 4.00 - 10.00 10*3/uL Red Blood Cell 2.88 (L) 4.10 - 5.30 10*6/uL Hemoglobin 8.8 (L) 11.5 - 15.5 g/dL Hematocrit 25.8 (L) 36.0 - 45.0 % Mean Cell Volume 89.5 80.0 - 96.0 fL Mean Cell Hemoglobin 30.7 27.0 - 33.0 pg Mean Cell Hgb Conc 34.2 32 - 36 g/dL Red Cell Dist Width 16.7 (H) 11.5 - 14.5 % Platelet Count 178 150 - 400 10*3/uL VITAL SIGNS: Vitals: 11/02/20 0042 11/02/20 0510 11/02/20 0811 11/02/20 1155 BP: 122/74 119/75 117/81 92/72 Pulse: 96 89 96 83 Resp: 16 14 16 16 Temp: 37.9 C (100.2 F) 37 C (98.6 F) 37 C (98.6 F) 37.3 C (99.1 F) SpO2: 94% 92% (!) 87% MENTAL STATUS EXAM: General Appearance (nutrition, body habitus, grooming): The patient is lyi ng down in her chair dressed in a hospital gown. The patient is morbidly obese. She has black hair and is appropriately dressed. Level of consciousness: Awake and alert Orientation: Oriented to person, place, and time Behavior/Attitude: The patient is cooperative and pleasant. Gait/Motor Behavior/Muscle Tone: Gait not observed. No psychomotor retard ation or agitation present. Speech: Speech is articulate and coherent. Normal speed and volume. Thought Process: Linear and goal oriented. Associations (normal/circumstantial/tangential/loose/flight of ideas): Nor mal Abnormal/Psychotic Thoughts (delusions, preoccupation with violence, SI/HI) : Denies SI and HI Perceptual Disturbances (hallucinations): Denies AH and VH Mood: "I feel ok" Affect: Patient's affect was euthymic and corresponded with her reported m ood. At times she became tearful while discussing painful memories, it was appr opriate to the conversation. Full range of affect. Cognition: Grossly intact Insight and Judgement: Good/Good [place] SUICIDE SEVERITY RATING SCALE (C-SSRS): INPATIENT SUICIDE SEVERITY RATING SCALE (based on the C-SSRS) Evaluation of Suicide Severity within the last 48 hrs 1) Wish to be : Person endorses thoughts about a wish to be or not alive anymore, or wish t o fall asleep and not wake up? Have you wished you were or wished you could go to sleep and not wake up? No 2) Suicidal Thoughts: General non-specific thoughts of wanting to end one's life/ by suicide, "I've thought about killing myself" without general thoughts of ways to kill oneself/ associated methods, intent, or plan. Have you actually had any thoughts of killing yourself? No 3) Suicidal Thoughts with Method (without Specific Plan or Intent to Act): Person endorses thoughts of suicide and has thought of at least one method durin g the assessment period. This is different than a specific plan with time, place or method details worked out. "I thought about taking an overdose but I never m jamarcus a specific plan as to when where or how I would actually do it...and I would never go through with it." Have you been thinking about how you might do this? No 4) Suicidal Intent (without Specific Plan): Active suicidal thoughts of killing oneself and patient reports having some inte nt to act on such thoughts, as opposed to "I have the thoughts but I definitely will not do anything about them." Have you had these thoughts and had some intention of acting on them? No 5) Suicide Intent with Specific Plan: Thoughts of killing oneself with details of plan fully or partially worked out a nd person has some intent to carry it out. Have you started to work out or worked out the details of how to kill yourself? Do you intend to carry out this plan? No 6) Suicidal Behavior Question: Have you ever done anything, started to do anything, or prepared to do anything to end your life? Examples: Collected pills, obtained a gun, gave away valuables, wrote a will or suicide note, took out pills but didn't swallow any, held a gun but changed your mind or it was grabbed from your hand, went to the roof but didn't jump; or act ually took pills, tried to shoot yourself, cut yourself, tried to hang yourself, etc. No If YES, ask: Were any of these in the past 3 months? 7) Suicidal Attempts: Have you made a suicide attempt (took an action to end your life)? No If YES, ask: 7a) How many attempts have you ever made? 7b) How long ago was your most recent attempt? Suicide Risk: Low General Suicide Risk Factors Chronic Predisposing Risk Factors (Permanent and Non-modifiable): Demographics - White, Prior Suicide Ideation, History of Self-Harm Behavior and History of Psy chiatric Hospitalization Chronic Predisposing Risk Factors (Potentially Modifiable): [place] I Disorders, es pecially Mood/Bipolar, Anxiety, Schizophrenia, Alcohol/Substance Use, Eating, Titus dy Dysmorphic, ADHD/Conduct and Tobacco Smoking Patient does not have access to guns. Patient does not have access to other potentially lethal means. Protective Factors No internal protective factors No external protective factors Clinical Formulation The patient denies suicidal ideation at this time. She reports that not wanting to hurt her family has prevented her from attempting suicide when she has had s uicidal ideation in the past. The patient is a low risk for committing suicide at this time. VIOLENCE ASSESSMENT (VRISK-10): V-RISK-10: 1. Previous and/or current violence: No 2. Previous and/or current threats (verbal/physical): No 3. Previous and/or current substance abuse: Yes 4. Previous and/or current major mental illness: No 5. Personality Disorder: No 6. Shows lack of insight into illness and/or behavior: No 7. Expresses suspicion: No 8. Shows lack of empathy: No 9. Unrealistic planning: No 10. Future stress-situations: No Overall clinical evaluation of risk for violence: Low Suggestion following overall clinical evaluation: No More Detailed Violence Ris k Assessment Total Score: 2 Total Do Not Know Answers: 0 Assessment: The patient is a 40 year old female with a PMH significant for sarcoidosis, poly substance use (alcohol, hydrocodone, oxycodone/paracetamol, alprazolam, amphetam ine/dextroamphetamine), anxiety, GERD, hypothyroidism who presented to the [facility] for a broken foot 2/2 fall. The patient reports that no loved ones have laya r seen her fall and there is no one we can call for collateral information regar ding how the falls look. Our differential includes neurologic dysfunction. We recommend a neurology consult for an evaluation of these potential pathologies. Our differential includes orthostatic hypertension so we recommend obtaining or thostatic vitals and discontinuing prazosin. The patient's psychiatric medicati ons may also be contributing to her falls. At this time she is willing to stop trazodone so we recommend reducing trazodone to 50 mg nightly. Our differential includes conversion disorder but all other potential causes must be ruled out. PSYCHIATRIC DIAGNOSIS: 292.9 (F11.99) Unspecified Opioid-Related Disorder, on methadone maintenance the rapy 311 (F32.9) Unspecified Depressive Disorder , previously diagnosed 300.02 (F41.1) Generalized Anxiety Disorder , previously diagnosed 309.81 (F43.10) Posttraumatic Stress Disorder (includes Posttraumatic Stress Dis order for Children 6 Years and Younger), without dissociative symptoms,without d elayed expression , previously diagnosed 314.01 (F09.9) Unspecified Attention-Deficit/Hyperactivity Disorder, Moderate , previously diagnosed RECOMMENDATIONS/PLAN: Disposition: Discharge to rehab per primary team Legal Status: None Safety/Level of Observation: Routine observation Scheduled Medications: Bupropion 450 mg daily Buspirone 10 mg BID Gabapentin 800 mg TID Methadone 145 mg daily Quetiapine 200 mg nightly Reduce Trazodone to 50 mg nightly Discontinue Prazosin 1 mg nightly PRN/Agitation Medications: None Referrals: Neurology consult Inpatient Follow Up: Psychiatry will follow Other Recommendations: Obtain orthostatic vitals Tasks Requiring Follow Up: None Next Outpatient Appointment(s): Continue with established outpatient providers Safety Planning: N/A Alirio Gil, MS4 This note has not been edited by a resident or an attending The patient was seen and discussed with Dr. Newman, the attending psychiatrist. I saw and evaluated the patient with MCKAY Valentin, and agree with their fin dings and plan as written in this excellent note with the addenda above. This patient was seen and discussed with Dr. Karl Newman who is in agreement wi th this treatment plan except as indicated in their addenda/edits to this note. Please feel free to contact me with any questions or concerns regarding this pat ient's care. Alf Bojorquez DO, MPH Psychiatry, PGY2 he/him/his Associated attestation - Karl Newman MD - 11/05/2020 1:23 PM EDT Deborah Webb was seen and discussed with the medical student (Angie Valentin) and the resident (Dr. Bojorquez). The medical student participated in the eval uation of the patient and in the documentation of the encounter, which has addit ionally been reviewed by the resident (Dr. Bojorquez). I independently evaluated th e patient, discussed the patient with the medical student and resident, and revi ewed the content of their note. The note has been revised to reflect the pertine nt positive and negative findings from the evaluation. I have verified all secti ons documented by the medical student and resident and I agree with the content, findings, and plan as written in the attached note. * Rosa Maria Andrews, OT - 11/02/2020 10:28 AM EDT Occupational Therapy Acute Care Treatment Note Medical Diagnosis: s/p IM Nail of left tibia shaft, closed treatement of fibula fracture with manipulation Rehabilitation Precautions/Restrictions: Per Ortho note on 10/29/20: "Toe touch weightbearing as tolerated to the LLE" OOB with assistance High fall risk Goal Review Visit Number: 5 SUBJECTIVE Patient Report: Pt reports "I knew you were going to come soon" Pain: Patient currently complains of pain. Location: L LE . Patient describes pain as Aching. Verbal Scale: Patient reports a pain level of 5 out of 10. Will perform therapy only as tolerated. Pain Medication Today: yes. OBJECTIVE General Observation: Pt received standing at sink washing hair with nurse, JORDEN, adhering to weightbearing precautions. No bed alarm noted at start of session. Vital Signs: Within Normal Limits. Range of Motion:No change observed. Strength:No change observed. Skin Integrity Screen: Visible areas grossly intact. Bandage intact to left lower extremity below knee, PNB x2 LLE Quarter-sized bruise to LLE above bandage Sd visible on LLE above knee; no obvious signs of drainage, excess redness, or irritation. Self Care/Home Management: Bathing: Modified [place]. Pt able to demonstrate improved activity tolerance to complete washing hair at the sink and challenging dynamic standing balance. . Grooming: Modified [place]. Task: UE exercises: visual and verbal demonstration Provided: Splinting: No splint issued today. Cognitive Test Score: Not tested. Outcome Measures: [facility] AM-PAC "6 Clicks" Daily Activity Inpatient Short Form: Putting on and taking off regular lower body clothing: A little assistance (3) Bathing (including washing, rinsing, and drying): No assistance (4) Toileting (including use of toilet, bedpan, or urinal): A little assistance (3) Putting on and taking off regular upper body clothing: No assistance (4) Taking care of personal grooming such as brushing teeth: No assistance (4) Eating meals: No assistance (4) Raw Score: 22 /24 Interventions: Self Care/Home Management: OT arrived to session as pt was finishing washing hair at sink with nursing. OT assisted pt in task completion. While at sink, OT encouraged pt to continue to maintain standing dynamic balance by brushing teeth to improve endurance and activity tolerance. Pt able to complete grooming in standing with standby assist for safety. Pt demonstrated good transfer technique into chair with improved safety awareness. Pt bathed fully body without assistance. Min assist for LB dressing due to fatigue following bathing. Therapeutic Exercise: OT reviewed exercises from previous sessions with pt to assess understanding. Pt able to recall 4/5 exercises with good technique. OT educated pt on importance of continuing exercises even when not in an active therapy session as pt reported "to be honest I have not continued to practice these." OT demonstrated two more exercises to expand exercise program for pt. Pt able to complete with rest breaks. Pt reviewed 6/6 exercises before session ended. Pt left with all needs met. Education: Mode of education provided: Demonstration. Explanation. Audience: Patient. Education Provided: Role of OT. Safety. Upper extremity exercises. Treatment plan. Discharge planning. . Response: Requires cues (auditory/physical). Applied knowledge. ASSESSMENT Response to Visit: The session was tolerated well. Patient reported fatigue Patient demonstrated good exercise technique. Chair alarm was on at end of session. Call oseguera was in patient's reach at end of session. Pain: Yes, pain is unchanged from start of today's treatment. Goal review: Pt making progress towards goals. Pt improving activity tolerance and able to maintain engagement in activity for longer periods of time. Pt to benefit from continued expansion of UE exercise program to improve upper extremity strength for functional tasks and basic mobility. PLAN Treatment Frequency, Duration and Interventions: Restorative Occupational Therapy recommended for 5x/week for 2 weeks Treatment is to include: Self Care/Home Management. Therapeutic Activity. Therapeutic Exercise. Equipment Provided: None issued this visit. Equipment Recommended: To be assessed . Recommended Occupational Therapy Follow Up: Upon acute care discharge, the following is currently recommended: Rehab, however if pt were to go home pt would need home OT and assistance for ADLs and functional mobility as needed. Recommended Consults: None currently. Development of Plan of Care: Participants included: Nurse. Patient. Visit Number: Today's visit is number 5 Program: Orthopedics (Therapist may be reached on [place] [employer]) SESSION: Duration: 43 CHARGES: 14320 - CHARGE - OT THER PRO - 15 MIN 1 Units 28714 - CHARGE - OT SELF CARE ADL TRAIN-15 MIN 2 Units - ORDER - Occupational Therapy Treatment 1 Units - ORTHOPEDIC VISIT 1 Units Total treatment minutes: 43.00 Minutes Electronically Signed by: URSULA Aguilera/Fadi, 11/02/2020 12:46:49 PM * Irena Villaloboshukbruno - 11/02/2020 9:30 AM EDT Spiritual Care Progress Note Sales Strategy Manager: Pranay Mckeon; Robert Grover Patient Name: Deborah Webb Age: 40 y.o. Sex: female Room/Bed: 96208/2 Radha Affiliation/Tradition: Rastafarian Admit Date: 10/26/2020 Referrals: Referral From: Sales Strategy Manager Referral To: Sales Strategy Manager Bucket Chucker Contact Information: vocera Spiritual Care Assessment Spouse/Significant Other Name/Relationship: none Assessed Need for Visit: Spiritual Companionship Patient Description: Physical Discomfort, In Pain, Discouraged Spiritual/Cultural/Social Issues Assessment: I visited Deborah while rounding o n the unit. Deborah noticed Robert Grover and myself walking past her room and ma de eye contact. Robert and I requested permission to enter. We introduced ourselves and requested permission to sit. Robert ending up kneeling and I sat in a chair ne xt to the bed. Deborah told us she was very appreciative that we came. Deborah s aid someone else gave her a Bible and prayer - from Spiritual Care. She is very receptive to visits and seems she would like more visits. She told us she lives with her cat Peggy. Also she is working to reconnect with her mother. Said she fi nds comfort at her yazdanism "[place]" in the [place], [place] area. Spiritual Care Intervention: Affirmation, Prayer Spiritual Outcomes - Patient: Grateful, Expressed feelings, [place] heard, valued, affirmed, [place] comforted, accompanied Spiritual Outcomes - Family: Not available for assessment Spiritual Care Plan Goals of Care: To assess spiritual care needs and hopes and mobilize spiritual r esources for patients/families/caregivers that support/enhance quality of life r elated to hospitalization. Outcome: stable Spiritual Care Follow Up Patient Follow-up Plan: Routine visit Family Follow-up Plan: No contact made at this time * Royer, Shannon E, PT - 11/02/2020 9:16 AM EDT Physical Therapy Acute Care Encounter Note Medical Diagnosis: s/p fall from standing - left mid shaft tibia fracture comminuted with segmental fibula fracture s/p 10/28/[address] Ervin PROCEDURE PERFORMED: 1. IM nail of left tibial shaft fracture. 2. Closed treatment of left fibular fracture with manipulation. CT 10/27/2020 Old well-corticated avulsion fracture fragment the medial condyle. Rehabilitation Precautions/Restrictions: Per Ortho note on 10/29/20: "Toe touch weightbearing as tolerated to the LLE" OOB with assistance High fall risk Goal Review Visit Number: 5 SUBJECTIVE Patient Report: Patient reports she is really proud of how much she did with therapy yesterday. Notes she doesn't remember how many railings she has on her stairs so she will find out. Pain: Patient currently complains of pain. Location: L LE . Patient describes pain as Nonspecific. Verbal Scale: Patient reports a pain level of 8 out of 10. Will inform nurse. Will perform therapy only as tolerated. Will instruct in relaxation techniques. Pain Medication Today: yes. OBJECTIVE General Observation: Patient received sitting EOB with Lizz present, just completing stand/pivot transfer from [facility]. + 2x nerve block to LLE, + masimo Bed alarm was on at start of session. Skin Integrity Screen: Visible areas grossly intact. Bandage intact to left lower extremity below knee, PNB x2 LLE Quarter-sized bruise to LLE above bandage [place] visible on LLE above knee; no obvious signs of drainage, excess redness, or irritation. Vital Signs: Stable. Functional Status: Transfers: Patient transferred sit to/from stand with modified independence. Patient used the following equipment: Gait belt - use per hospital policy. Patient used the following equipment: rolling walker. Maintains TTWB LLE. Occasionally impulsive with fast eccentric descent - verbal cues given for safe hand placement & slower more controlled descent. Bed Mobility: Patient moves from supine to/from sit with modified independence. uses bilat EU, bed rail, and HOB elevated. Uses RLE to manage LLE into bed. Locomotion/Gait/Ambulation: Patient was supervision with gait/ambulation for device(s): Rolling walker. Gait belt. Required multiple rest breaks secondary to fatigue. Maintains TTWB LLE. Increased dinh with multiple little hops to advance self forward. Stairs: Patient was minimal assist of 1 person for 4 steps . Patient used the following equipment: Bilateral Railing. Gait belt - use per hospital policy. Required verbal cuing to navigate stairs at safe speed. Required multiple rest breaks secondary to fatigue. Maintains TDWB LLE. Outcome Measures: [facility] AM-PAC "6 Clicks" Basic Mobility Inpatient Short Form: Turning over in bed: A little difficulty (3) Sitting down on and standing up from a chair with arms: A little difficulty (3) Moving from lying on back to sitting on the side of the bed: A little difficulty (3) Moving to and from a bed to a chair (including a wheelchair): A little help (3) Walking in hospital room: A little help (3) Climbing 3-5 steps with a railing: A little help (3) Raw Score 18 /24. Interventions: Gait Training: Facilitated functional mobility this date to improve independence and safe ambulation. Assisted patient in performing teach-back method for safe stair navigation sequencing & orthopedic recommendations to improve adherence to both. Provided verbal cuing for pacing activities; including stair navigation & ambulation, to decrease risk of falls and conserve energy. Assisted patient as needed back into bed and provided desired limb position by elevated to improve blood flow & decrease edema. Education: Mode of education provided: Explanation. Audience: Patient. Education Provided: safe pacing of activities to decrease fall risk, safe stair navigation with sequencing to maintain ortho precautions. . Response: Verbalized understanding. Applied knowledge. Needs practice/reinforcement. ASSESSMENT Response to Visit: The session was tolerated well. Patient able to tolerate short distance ambulation & stair navigation this date. Limited primarily by high pain & fatigue levels. Bed alarm was on at end of session. Call oseguera was in patient's reach at end of session. Pain: Patient currently complains of pain. Location: L LE . Patient describes pain as Nonspecific. Verbal Scale: Patient reports a pain level of 7 out of 10. Will inform nurse. PLAN Treatment Frequency, Duration and Interventions: Restorative Physical Therapy is recommended for 2x a day for 2 weeks Treatment is to include: Gait Training. Neuromuscular Re-education. Therapeutic Activity. Therapeutic Exercise. Physical Performance Test. Self Care/Home Management. Recommended Physical Therapy Follow Up: Upon acute care discharge, the following is currently recommended: Primary recommendation is rehab. If patient were to return home; she would require home PT and supervision/assistance with mobility as needed. Equipment Provided: None issued this visit. Visit Number: Today's visit is number 6 Program: Orthopedics (Therapist may be reached on [place] [employer]) SESSION: Duration: 32 CHARGES: 79947 - CHARGE - PT GAIT TRNG - 15 MIN 2 Units - ORDER - Physical Therapy Treatment 1 Units - ORTHOPEDIC VISIT 1 Units Total treatment minutes: 32.00 Minutes Electronically Signed by: Shannon Linton PT, DPT, 11/02/2020 11:26:07 AM * Aron Joshi, - 11/02/2020 7:35 AM EDT Peripheral Nerve Block Progress Note Subjective: PNB day: 4 days Location: left Pop/Saph Infusion: Ropivicaine 0.2% @ 8 ml/hr for Pop, Ropivicaine 0.2% @ 6 ml/hr for Sap h Interval History: Patient seen sleeping comfortably in bed this morning. No acut e events overnight. Pop/saph PNB sights without pain and tenderness and absent o f erythema and fluctuance. Pop PNB rate increased from 6 ml/hr to 8 ml/hr last n ight as patient complained of increased pain in this area. Pain was 9/10 last ni ght and 6/10 this morning. Patient states increase in pop rate helped control th e pain better. ROS: Paresthesias? no, Weakness? no Symptoms of local anesthetic toxicity: perioral numbness? no Dizziness? no Seizu re-like activity? no Mental status changes? no Cardiac abnormalities? no Current Medications: acetaminophen (TYLENOL) tablet 650 mg Oral Once buPROPion 450 mg Oral Daily busPIRone 10 mg Oral BID enoxaparin 40 mg Subcutaneous Daily gabapentin 800 mg Oral TID levothyroxine 175 mcg Oral Daily methadone 145 mg Oral Daily prazosin 1 mg Oral Nightly QUEtiapine 200 mg Oral Nightly trazodone 100 mg Oral Nightly PRN: acetaminophen (TYLENOL) tablet 650 mg Q4H PRN, morphine sulfate (PF) 4 mg Q4H AZ N, oxyCODONE 5 mg Q4H PRN Current Hospital Problem List: Principal Problem: Leg fracture, left, closed, initial encounter Active Problems: Akinesia History reviewed. No pertinent surgical history. Objective: Vital signs in last 24 hours: Vitals: 11/01/20 1609 11/01/20 2042 11/02/20 0042 11/02/20 0510 BP: 123/84 152/84 122/74 119/75 BP Location: Right arm Left arm Left arm Right arm Patient Position: Lying Lying Lying Lying Pulse: 86 99 96 89 Resp: 16 15 16 14 Temp: 37.4 C (99.3 F) 37.5 C (99.5 F) 37.9 C (100.2 F) 3 7 C (98.6 F) TempSrc: Oral Oral Oral Oral SpO2: 93% 94% 94% Weight: Height: Intake/Output last 3 shifts: I/O last 3 completed shifts: In: 360 [P.O.:360] Out: 900 [Urine:900] Data Review CBC: Lab Results Component Value Date WBC 4.8 10/31/2020 RBC 2.88 (L) 10/31/2020 HGB 8.8 (L) 10/31/2020 HCT 25.8 (L) 10/31/2020 PLT 178 10/31/2020 BMP: Lab Results Component Value Date NA 134 (L) 10/31/2020 K 3.2 (L) 10/31/2020 CL 99 10/31/2020 BICARBONATE 23 10/31/2020 GLUCOSE 91 10/31/2020 BUN 8 10/31/2020 CREATININE 1.13 (H) 10/31/2020 BCR 7 10/31/2020 GFRAA 71 10/31/2020 GFRNONAA 61 10/31/2020 Hepatic Panel: No results found for: ALBUMIN, ALKPHOS, ALT, AST, PROT, TBILI, BI LIDIR Coagulation: Lab Results Component Value Date INR 1.06 10/26/2020 Exam: NAD, AAO x 3 NCAT CVSS No respiratory distress Extremities- WWP; catheter sites=c/d/i, no surrounding erythem or pain Assessment/Plan: 40 y.o. year old female with peripheral nerve catheter day 4. Pain is adequately controlled on current regimen for both the popliteal & saphenous nerve block. 1. Continue current rate of saphenous NB Ropivicaine 0.2% at 6 ml/hr 2. Continue current rate of pop NB Ropivicaine 0.2% at 8 ml/hr 3. Consider multimodal approach to pain management 4. Add Robaxin 500 QID for increased pain control if needed 5. APS will continue to follow Patient discussed with Dr. Estefany Sandoval who is in agreement with the plan. Aron Joshi DO APS Resident Associated attestation - Estefany Sandoval MD - 11/02/2020 2:22 PM EDT I saw and evaluated the patient. Discussed with the resident and agree with res idents findings as documented in the resident's note. * Claudia Fournier RN - 11/01/2020 3:41 PM EDT CM had pt launched to [facility], no bed offers coming in. Dr Gilmore to reac h out to APS to see if patient is able to switch to Subutex which could possibly help find her a STR bed. CM to follow and continue to work with complex CM. * Cody White - 11/01/2020 3:37 PM EDT Physical Therapy Acute Care Treatment Note Medical Diagnosis: s/p fall from standing - left mid shaft tibia fracture comminuted with segmental fibula fracture s/p 10/28/[address] Ervin PROCEDURE PERFORMED: 1. IM nail of left tibial shaft fracture. 2. Closed treatment of left fibular fracture with manipulation. CT 10/27/2020 Old well-corticated avulsion fracture fragment the medial condyle. Rehabilitation Precautions/Restrictions: Per Ortho note on 10/29/20: "Toe touch weightbearing as tolerated to the LLE" OOB with assistance High fall risk Goal Review Visit Number: 4 SUBJECTIVE Patient Report: "I was wondering you were coming today" Pain: Patient has no complaints of pain currently. Pain Medication Today: yes. OBJECTIVE General Observation: Recieved patient supine in bed. +PIV +x2 nerve block No bed alarm noted at start of session. Vital Signs: Stable, asymptomatic throughout session Range of Motion:No change observed. Strength:No change observed. Skin Integrity Screen: Visible areas grossly intact. Bandage intact to left lower extremity below knee, PNB x2 LLE Quarter-sized bruise to LLE above bandage [place] visible on LLE above knee; no obvious signs of drainage, excess redness, or irritation. Functional Status: Transfers: Patient transferred sit to/from stand requiring supervision. Patient used the following equipment: rolling walker. Patient used the following equipment: Gait belt - use per hospital policy. Patient used the following equipment: Arms of chair. Patient able to transfer maintaining TTWB Bed Mobility: Within functional limits. Locomotion/Wheelchair: Not applicable for this patient at this time. Locomotion/Gait/Ambulation: Patient was stand by assist with gait/ambulation for Approximately 100 feet . Patient requires the following assistive device(s): Rolling walker. Gait belt - use per hospital policy. Patient maintains TTWB, requires frequent standing rest breaks Stairs: Patient was stand by assistance for 4 steps up/down . Patient used the following equipment: Bilateral Railing. Gait belt - use per hospital policy. Patient maintains TTWB Outcome Measures: [facility] "6 Clicks" Basic Mobility Inpatient Short Form: Turning over in bed: No difficulty (4) Sitting down on and standing up from a chair with arms: A little difficulty (3) Moving from lying on back to sitting on the side of the bed: No difficulty (4) Moving to and from a bed to a chair (including a wheelchair): A little help (3) Walking in hospital room: A little help (3) Climbing 3-5 steps with a railing: A little help (3) Raw Score 20 /24. Interventions: Gait Training: Facilitated gait training to increase tolerance to activity and independence with functional tasks. Patient able to maintain TTWB throughout with minimal cues. Patient required 5 standing rest breaks due to fatigue and increase time to complete task. Patient required cues for pacing and energy conservation techniques. Educated patient on importance of pacing for safety. Provided demonstration and education for appropriate stair negotiation. Patient required cues for LE sequencing. Education: Mode of education provided: Explanation. Audience: Patient. Education Provided: Importance of activity. Mobility Techniques. Role of Physical Therapy. Safety. Treatment Plan. Response: Verbalized understanding. ASSESSMENT Response to Visit: The session was tolerated well. Patient showed ability to increase ambulation distance and negotiate stairs. Patient able to maintain weight bearing restrictions with minimal cues throughout session. Patient continues to be limiited by pain and faituge. Patient left supine in bed. All needs met. Bed alarm was on at end of session. Call oseguera was in patient's reach at end of session. Pain: Patient has no complaints of pain currently. Goal review: All goals ongoing Changes in or Continuation of Plan of Care: Patient will benefit from continued therapy to achieve planned goals. PLAN Treatment Frequency, Duration and Interventions: Restorative Physical Therapy is recommended for 2x a day for 2 weeks Treatment is to include: Gait Training. Neuromuscular Re-education. Therapeutic Activity. Therapeutic Exercise. Self Care/Home Management. Equipment Provided: None issued this visit. Equipment Recommended: To be assessed. Recommended Physical Therapy Follow Up: Upon acute care discharge, the following is currently recommended: Anticipate patient will have inpatient rehab needs beyond the acute stay. Recommended Consults: None currently. Development of Plan of Care: Participants included: Nurse. Patient. Visit Number: Today's visit is number 5 Program: Orthopedics (Therapist may be reached on [place]) SESSION: Duration: 29 CHARGES: 59446 - CHARGE - PT GAIT TRNG - 15 MIN 2 Units - ORDER - Physical Therapy Treatment 1 Units - ORTHOPEDIC VISIT 1 Units Total treatment minutes: 29.00 Minutes Electronically Signed by: Cody White, Student PT, 11/01/2020 4:28:22 PM - CoSigned By: Juan Lowry, PT, DPT, 11/01/2020 4:30:06 PM * Julisa Zamorano TOOL TECHNICIAN - 11/01/2020 11:18 AM EDT Internal Medicine Inpatient Progress Note Length of stay- 6 Subjective: Ms. Deborah Webb is a 40 year old female who came in for left l eg fracture. Patient mentioned that she was feeling much better today. Patient s tated that at home she uses a nebulizer and has an inhaler. At one point, there was a discussion of her possibly having sleep apnea. Review of Systems Constitutional: Negative for activity change and appetite change. Respiratory: Negative for shortness of breath. Cardiovascular: Negative for chest pain. Gastrointestinal: Negative for diarrhea, nausea and vomiting. Musculoskeletal: Left leg pain Neurological: Negative for dizziness and headaches. Objective: Vitals: 10/31/20 2022 11/01/20 0420 11/01/20 0723 11/01/20 1112 BP: 121/61 103/56 124/78 110/78 BP Location: Left arm Left arm Right arm Patient Position: Lying Sitting Pulse: 80 89 85 83 Resp: 16 16 16 Temp: 37 C (98.6 F) 37 C (98.6 F) 37.1 C (98.8 F) TempSrc: Oral Oral Oral SpO2: 92% 94% 92% 93% Weight: Height: Physical Exam Vitals and nursing note reviewed. Constitutional: Appearance: Normal appearance. HENT: Head: Normocephalic and atraumatic. Cardiovascular: Rate and Rhythm: Normal rate and regular rhythm. Pulses: Normal pulses. Heart sounds: Normal heart sounds. Pulmonary: Effort: Pulmonary effort is normal. No respiratory distress. Breath sounds: Normal breath sounds. Musculoskeletal: General: Signs of injury present. Comments: LLE: Dry dressing Skin: General: Skin is warm and dry. Neurological: General: No focal deficit present. Mental Status: She is alert and oriented to person, place, and time. Psychiatric: Mood and Affect: Mood normal. Behavior: Behavior normal. Laboratory independently reviewed Recent Labs Lab 10/29/20 0011 10/30/20 0222 10/31/20 0403 NA 139 134* 134* K 3.2* 3.5 3.2* CL 103 99 99 BICARBONATE 23 BUN 8 6 8 CREATININE 1.05* 1.13* 1.13* GLUCOSE 97 93 91 Recent Labs Lab 10/28/20 0047 10/28/20 0047 10/29/20 0011 10/30/20 0222 10/31/20 0403 WBC 8.0 < > 6.3 5.7 4.8 HGB 11.1* < > 8.7* 9.0* 8.8* HCT 32.2* < > 24.8* 26.4* 25.8* MCV 89.8 < > 88.3 89.4 89.5 PLT 211 < > 183 185 178 NEUTOPHILPCT 75 -- 80 75 -- MONOPCT 7 -- 5 7 -- < > = values in this interval not displayed. No results found for: PROT, ALBUMIN, AST, ALT, TBILI, ALKPHOS, LIPASE, AMYLASE R ecent Labs Lab 10/26/201911 INR 1.06 Recent Labs Lab 10/26/201911 CK 143 Lab Results Component Value Date TSH 16.720 (H) 10/26/2020 Finger stick glucose levels: MICROBIOLOGY: IMAGING independently reviewed: MEDICATIONS: Scheduled Meds: acetaminophen (TYLENOL) tablet 650 mg Oral Once buPROPion 450 mg Oral Daily busPIRone 10 mg Oral BID enoxaparin 40 mg Subcutaneous Daily gabapentin 800 mg Oral TID levothyroxine 175 mcg Oral Daily methadone 145 mg Oral Daily prazosin 1 mg Oral Nightly QUEtiapine 200 mg Oral Nightly trazodone 100 mg Oral Nightly Continuous Infusions: ropivacaine 500 mg (10/31/20 1513) ropivacaine PRN Meds:.acetaminophen (TYLENOL) tablet, albuterol, oxyCODONE Assessment & Plan: Deborah Webb is a 40 y.o. female who is here for left leg fracture. Principal Problem: Leg fracture, left, closed, initial encounter Active Problems: Akinesia #Left tibular-fibular fracture -Continue multimodal pain management IV/PO -Methadone dose was restarted at 145 mg daily -Was started on Lovenox 40 mg daily -ORIF on 10/28: Will continue to monitor pain H&H and vitals post op -Pain management performed popliteal and femoral nerve blocks 10/29: will continu e to monitor pain #Chronic opioid dependence -Addiction psychiatry consultation post-operatively and transition back to chron ic Methadone therapy post-op -Was able to contact [facility] 10/30 to confirm home dose of Methadone. Is currently on 145 mg oral solution daily. Will continue that dose while in the hospital #Depression -Will continue current psychotropic regimen #Hypothyroidism -Currently on Synthroid; will continue to monitor TSH and thyroid status post op #Sarcoidosis -Not currently on any treatment. Monitor pulmonary status post-operatively DVT Prophylaxis: Lovenox Functional Status: Moderately Impaired Code Status: Full Code Disposition: Plan discharge to: Rehab Estimated Discharge Date: JAYLENE Matias Hospitalist Medicine Team [place] [id number] Parts of this note were copied from other notes in order to promote consistency and continuity of care. Associated attestation - Shaggy Gilmore MD - 11/01/2020 3:10 PM EDT I saw and evaluated the patient. Discussed with the non-physician practitioner and agree with the non-physician practitioner findings and plan as documented in their note. Feeling improved from pain standpoint. Awaiting placement, but met hadone remains a barrier. Reaching out to addiction to see if she can transitio n to suboxone from methadone. Shaggy Gilmore MD * Rosa Maria Andrews, OT - 11/01/2020 8:52 AM EDT Occupational Therapy Acute Care Encounter Note Medical Diagnosis: s/p IM Nail of left tibia shaft, closed treatement of fibula fracture with manipulation Rehabilitation Precautions/Restrictions: Per Ortho note on 10/29/20: "Toe touch weightbearing as tolerated to the LLE" OOB with assistance High fall risk Goal Review Visit Number: 4 SUBJECTIVE Patient Report: Pt agreeable to OT session. Pt reports "I want to wash up" Pain: Patient currently complains of pain. Location: L LE . Patient describes pain as Aching. Constant. Verbal Scale: Patient reports a pain level of 8 out of 10. Will perform therapy only as tolerated. Pain Medication Today: yes. OBJECTIVE General Observation: Pt received supine in bed, NAD, PNB x2 LLE, lines and tubes intact No bed alarm noted at start of session. Skin Integrity Screen: Visible areas grossly intact. Bandage intact to left lower extremity below knee, PNB x2 LLE Quarter-sized bruise to LLE above bandage Sd visible on LLE above knee; no obvious signs of drainage, excess redness, or irritation. Vital Signs: Within Normal Limits. Self Care/Home Management: Bathing: Modified [place]. Task: Functional movement/distances: supervision Provided: Splinting: No splint issued today. Cognitive Test Score: Not tested. Outcome Measures: [facility] "6 Clicks" Daily Activity Inpatient Short Form: Putting on and taking off regular lower body clothing: A little assistance (3) Bathing (including washing, rinsing, and drying): No assistance (4) Toileting (including use of toilet, bedpan, or urinal): A little assistance (3) Putting on and taking off regular upper body clothing: No assistance (4) Taking care of personal grooming such as brushing teeth: No assistance (4) Eating meals: No assistance (4) Raw Score: 22 /24 Interventions: Self Care/Home Management: OT facilitated pt completion of item retrieval in room in preparation for self-care tasks. Pt able to complete item retrieval with minimal cues for safety and supervision. Pt requiring cues to pace oneself as pt seen to retrieve items very quickly. Pt was educated on energy conservation strategies and rest breaks to prevent overexertion. Once items were retrieved pt able to complete full body bathing and dressing without physical assist. Pt transferred from EOB into chair with supervision for management of lines and safety. Pt reported fatigue after session and was educated on breath control during exertion. Pt left with all needs met. Education: Mode of education provided: Explanation. Demonstration. Audience: Patient. Education Provided: Role of OT. Safety. Energy conservation strategies. Treatment plan. Discharge planning. Breath control. Transfer technique. . Response: Requires cues (auditory/physical). Applied knowledge. ASSESSMENT Response to Visit: The session was tolerated well. Pain unchanged. Patient reported fatigue Patient demonstrated improved transfer technique. Chair alarm was on at end of session. Call oseguera was in patient's reach at end of session. Pain: Yes, pain is unchanged from start of today's treatment. PLAN Treatment Frequency, Duration and Interventions: Restorative Occupational Therapy recommended for 5x/week for 2 weeks Treatment is to include: Self Care/Home Management. Therapeutic Activity. Therapeutic Exercise. Recommended Occupational Therapy Follow Up: Upon acute care discharge, the following is currently recommended: Anticipate Rehab vs home with assistance; pending progress with goals. Pain and safety still limiting factor Visit Number: Today's visit is number 4 Program: Orthopedics (Therapist may be reached on [place]) SESSION: Duration: 42 CHARGES: 49044 - CHARGE - OT SELF CARE ADL TRAIN-15 MIN 3 Units - ORDER - Occupational Therapy Treatment 1 Units - ORTHOPEDIC VISIT 1 Units Total treatment minutes: 42.00 Minutes Electronically Signed by: URSULA Aguilera/Fadi, 11/01/2020 2:50:27 PM * Aron Joshi, - 11/01/2020 7:55 AM EDT Peripheral Nerve Block Progress Note Subjective: PNB day: 3 days Location: left Pop/Saph Infusion: Ropivicaine 0.2% @ 6ml/hr for Pop, Ropivicaine 0.2% @ 6ml/hr for Saph Interval History: Patient seen resting comfortably in bed this morning. No acute events overnight. Pop/saph PNB sights absent of erythema or fluctuance. Patient states pain is completely controlled during the day with morning dose of methad one. Pain described as achy and rated as 6/10 this morning. ROS: Paresthesias? no, Weakness? no Symptoms of local anesthetic toxicity: perioral numbness? no Dizziness? no Seizu re-like activity? no Mental status changes? no Cardiac abnormalities? no Current Medications: acetaminophen (TYLENOL) tablet 650 mg Oral Once buPROPion 450 mg Oral Daily busPIRone 10 mg Oral BID enoxaparin 40 mg Subcutaneous Daily gabapentin 800 mg Oral TID levothyroxine 175 mcg Oral Daily methadone 145 mg Oral Daily prazosin 1 mg Oral Nightly QUEtiapine 200 mg Oral Nightly trazodone 100 mg Oral Nightly PRN: acetaminophen (TYLENOL) tablet 650 mg Q4H PRN, morphine sulfate (PF) 4 mg Q4H AZ N, oxyCODONE 5 mg Q4H PRN Current Hospital Problem List: Principal Problem: Leg fracture, left, closed, initial encounter Active Problems: Akinesia History reviewed. No pertinent surgical history. Objective: Vital signs in last 24 hours: Vitals: 10/31/20202010/31/20202111/01/20 0420 11/01/20 0723 BP: 121/61 121/61 103/56 124/78 BP Location: Left arm Left arm Left arm Patient Position: Lying Lying Pulse: 83 80 89 85 Resp: 18 16 16 Temp: 37.4 C (99.3 F) 37 C (98.6 F) 37 C (98.6 F) TempSrc: Oral Oral Oral SpO2: 98% 92% 94% 92% Weight: Height: Intake/Output last 3 shifts: I/O last 3 completed shifts: In: 1280 [P.O.:1280] Out: 225 [Urine:225] Data Review CBC: Lab Results Component Value Date WBC 4.8 10/31/2020 RBC 2.88 (L) 10/31/2020 HGB 8.8 (L) 10/31/2020 HCT 25.8 (L) 10/31/2020 PLT 178 10/31/2020 BMP: Lab Results Component Value Date NA 134 (L) 10/31/2020 K 3.2 (L) 10/31/2020 CL 99 10/31/2020 BICARBONATE 23 10/31/2020 GLUCOSE 91 10/31/2020 BUN 8 10/31/2020 CREATININE 1.13 (H) 10/31/2020 BCR 7 10/31/2020 GFRAA 71 10/31/2020 GFRNONAA 61 10/31/2020 Hepatic Panel: No results found for: ALBUMIN, ALKPHOS, ALT, AST, PROT, TBILI, BI LIDIR Coagulation: Lab Results Component Value Date INR 1.06 10/26/2020 Exam: NAD, AAO x 3 NCAT CVSS No respiratory distress Extremities- WWP; catheter sites=c/d/i, no surrounding erythem or pain Assessment/Plan: 40 y.o. year old female with peripheral nerve catheter day 3. Pain is adequately controlled on current regimen for both the popliteal & saphenous nerve block. 1. Continue current rate of saphenous NB Ropivicaine 0.2% at 6ml/hr 2. Continue current rate of pop NB Ropivicaine 0.2% at 6ml/hr 3. Consider multimodal approach to pain management 4. Add Robaxin 500 QID for increased pain control if needed 5. APS will continue to follow Patient discussed with Dr. Gwen Damon who is in agreement with the plan. Aron Joshi DO APS Resident Associated attestation - Nelson Hidalgo MD - 11/01/2020 10:46 AM EDT I saw and evaluated the patient. Discussed with the resident and agree with the residents findings and plans as written, along with any supplemental dictated a nd/or attending documentation in the patient record by myself. * Jennifer Hernandez RN - 10/31/2020 6:04 PM EDT No changes from prior assessment. * Jennifer Hernandez RN - 10/31/2020 3:33 PM EDT Assumed care of pt at 1515. Pt in bed, no s/s of distress, bed in low position, bed wheels locked. Meds per JUN. * Julisa Zamorano NP - 10/31/2020 12:51 PM EDT Internal Medicine Inpatient Progress Note Length of stay- 5 Subjective: Ms. Deborah Webb is a 40 year old female who came in for left l eg fracture. Patient mentioned that she was restarted on her Methadone and it andre s helped with her left foot. Review of Systems Constitutional: Negative for activity change and appetite change. Respiratory: Negative for shortness of breath. Cardiovascular: Negative for chest pain. Gastrointestinal: Negative for diarrhea, nausea and vomiting. Musculoskeletal: Left leg pain Neurological: Negative for dizziness and headaches. Objective: Vitals: 10/30/20 2345 10/31/20 0400 10/31/20 0726 10/31/20 1139 BP: (!) 113/93 106/65 122/78 100/69 BP Location: Left arm Left arm Left arm Right arm Patient Position: Lying Lying Lying Lying Pulse: 76 89 73 78 Resp: 16 16 18 18 Temp: 37 C (98.6 F) 37.2 C (99 F) 36.7 C (98.1 F) 36.7 C (98.1 F) TempSrc: Oral Oral Oral Oral SpO2: 93% 93% 95% 96% Weight: Height: Physical Exam Vitals and nursing note reviewed. Constitutional: Appearance: Normal appearance. HENT: Head: Normocephalic and atraumatic. Cardiovascular: Rate and Rhythm: Normal rate and regular rhythm. Pulses: Normal pulses. Heart sounds: Normal heart sounds. Pulmonary: Effort: Pulmonary effort is normal. No respiratory distress. Breath sounds: Normal breath sounds. Musculoskeletal: General: Signs of injury present. Comments: LLE: Dry dressing Skin: General: Skin is warm and dry. Neurological: General: No focal deficit present. Mental Status: She is alert and oriented to person, place, and time. Psychiatric: Mood and Affect: Mood normal. Behavior: Behavior normal. Laboratory independently reviewed Recent Labs Lab 10/29/20 0011 10/30/2022110/31/20 0403 NA 139 134* 134* K 3.2* 3.5 3.2* CL 103 99 99 BICARBONATE 23 23 BUN 8 6 8 CREATININE 1.05* 1.13* 1.13* GLUCOSE 97 93 91 Recent Labs Lab 10/28/20 0047 10/28/20 0047 10/29/20 0011 10/30/202 10/31/20 0403 WBC 8.0 < > 6.3 5.7 4.8 HGB 11.1* < > 8.7* 9.0* 8.8* HCT 32.2* < > 24.8* 26.4* 25.8* MCV 89.8 < > 88.3 89.4 89.5 PLT 211 < > 183 185 178 NEUTOPHILPCT 75 -- 80 75 -- MONOPCT 7 -- 5 7 -- < > = values in this interval not displayed. No results found for: PROT, ALBUMIN, AST, ALT, TBILI, ALKPHOS, LIPASE, AMYLASE R ecent Labs Lab 10/26/201911 INR 1.06 Recent Labs Lab 10/26/201911 CK 143 Lab Results Component Value Date TSH 16.720 (H) 10/26/2020 Finger stick glucose levels: MICROBIOLOGY: IMAGING independently reviewed: MEDICATIONS: Scheduled Meds: acetaminophen (TYLENOL) tablet 650 mg Oral Once buPROPion 450 mg Oral Daily busPIRone 5 mg Oral BID enoxaparin 40 mg Subcutaneous Daily gabapentin 800 mg Oral TID levothyroxine 175 mcg Oral Daily methadone 145 mg Oral Daily prazosin 1 mg Oral Nightly QUEtiapine 200 mg Oral Nightly trazodone 100 mg Oral Nightly Continuous Infusions: ropivacaine 500 mg (10/31/20 1136) ropivacaine 500 mg (10/30/20 0853) PRN Meds:.acetaminophen (TYLENOL) tablet, oxyCODONE Assessment & Plan: Deborah Webb is a 40 y.o. female who is here for left leg fracture. Principal Problem: Leg fracture, left, closed, initial encounter Active Problems: [place]inesia #Left tibular-fibular fracture -Continue multimodal pain management IV/PO -Methadone dose was restarted at 145 mg daily -Was started on Lovenox 40 mg daily -ORIF on 10/28: Will continue to monitor pain H&H and vitals post op -Pain management performed popliteal and femoral nerve blocks 10/29: will continu e to monitor pain #Chronic opioid dependence -Addiction psychiatry consultation post-operatively and transition back to chron ic Methadone therapy post-op -Was able to contact [facility] 10/30 to confirm home dose of Methadone. Is currently on 145 mg oral solution daily. Will continue that dose while in the hospital #Depression -Will continue current psychotropic regimen #Hypothyroidism -Currently on Synthroid; will continue to monitor TSH and thyroid status post op #Sarcoidosis -Not currently on any treatment. Monitor pulmonary status post-operatively DVT Prophylaxis: Lovenox Functional Status: Moderately Impaired Code Status: Full Code Disposition: Plan discharge to: Rehab Estimated Discharge Date: JAYLENE Matias Hospitalist Medicine Team [place] [id number] Parts of this note were copied from other notes in order to promote consistency and continuity of care. Associated attestation - Shaggy Gilmore MD - 10/31/2020 7:49 PM EDT I saw and evaluated the patient. Discussed with the non-physician practitioner and agree with the non-physician practitioner findings and plan as documented in their note. Improving pain control, IV prns discontinued. Will continue oxycod one prn for pain control. Shaggy Gilmore MD * Shannon Linton, PT - 10/31/2020 11:55 AM EDT Physical Therapy Acute Care Encounter Note Medical Diagnosis: s/p fall from standing - left mid shaft tibia fracture comminuted with segmental fibula fracture s/p 10/28/[address] Ervin PROCEDURE PERFORMED: 1. IM nail of left tibial shaft fracture. 2. Closed treatment of left fibular fracture with manipulation. CT 10/27/2020 Old well-corticated avulsion fracture fragment the medial condyle. Rehabilitation Precautions/Restrictions: Per Ortho note on 10/29/20: "Toe touch weightbearing as tolerated to the LLE" OOB with assistance High fall risk Goal Review Visit Number: 3 SUBJECTIVE Patient Report: Patient reports her boyfriend doesn't think it's a good idea for her to live with him and he's concerned about her having to go up/down stairs. Reports she's been up in the bedside chair since her OT session this morning. Pain: Patient currently complains of pain. Location: L LE . Patient describes pain as Nonspecific. Verbal Scale: Patient reports a pain level of 8 out of 10. Will perform therapy only as tolerated. Will inform nurse. Pain Medication Today: yes. OBJECTIVE General Observation: Patient was yelling to get assistance back into bed as PT walked by room. Patient received in bedside chair with + nerve blocks to LLE, + PIV RUE, +masimo. RN present giving patient medication. Chair alarm was on at start of session. Skin Integrity Screen: Visible areas grossly intact. Bandage intact to left lower extremity below knee, PNB x2 LLE Sd visible on LLE above knee; no obvious signs of drainage, excess redness, or irritation. Vital Signs: at rest; BP 100/69 mmHg, HR 78 BPM, SPO2 96% on room air after activity; HR 86 BPM, SPO2 94% on room air Functional Status: Transfers: Patient transferred sit to/from stand with modified independence. Patient used the following equipment: Arms of chair. Patient used the following equipment: rolling walker. Patient used the following equipment: Gait belt - use per hospital policy. maintains TTWB LLE, increased use of bilat UE Patient transferred to/from the toilet with modified independence. Patient used the following equipment: Gait belt - use per hospital policy. Grab bars. Bed Mobility: Patient moves from supine to/from sit with modified independence. uses bilat UE & single bed rail, has HOB elevated. Locomotion/Gait/Ambulation: Patient was modified independent with gait/ambulation for device(s): Rolling walker. Gait belt. Requires management for IV pole management. Frequent rest breaks secondary to fatigue. Maintains TTWB LLE with minimal cuing. Stairs: Not assessed. Outcome Measures: [facility] "6 Clicks" Basic Mobility Inpatient Short Form: Turning over in bed: A little difficulty (3) Sitting down on and standing up from a chair with arms: A little difficulty (3) Moving from lying on back to sitting on the side of the bed: A little difficulty (3) Moving to and from a bed to a chair (including a wheelchair): No help (4) Walking in hospital room: A little help (3) Climbing 3-5 steps with a railing: A lot of help (2) Raw Score 18 /24. Interventions: Gait Training: Facilitated pre-gait tasks by ensuring patient competent with teach-back method of WB restrictions of LLE. Provided verbal instructions for safe hand placement during multiple sit <> stand transfers. Instructed patient on decreasing stride length during ambulation and slowing dinh to improve safety. Provided tactile & verbal cuing for safe task retrieval during ambulation. Assisted with IV pole management as patient performed toileting tasks with modified independence. Provided cues for safe turns within boundaries of RW. Assisted patient back to bed where she remained without needs. Education: Mode of education provided: Explanation. Demonstration. Audience: Patient. Education Provided: safe reaching while standing for item retrieval, TTWB LLE protocol, safe mobility with the use of RW . Response: Applied knowledge. Verbalized understanding. Needs practice/reinforcement. ASSESSMENT Response to Visit: The session was tolerated well. Despite high levels of pain, patient able to ambulate increased distance while requiring less assistance this date. Bed alarm was on at end of session. Call oseguera was in patient's reach at end of session. Pain: Patient currently complains of pain. Location: L LE . Patient describes pain as Nonspecific. Verbal Scale: Patient reports a pain level of 7 out of 10. Will inform nurse. PLAN Treatment Frequency, Duration and Interventions: Restorative Physical Therapy is recommended for 1x a day for 2 weeks Treatment is to include: Gait Training. Neuromuscular Re-education. Therapeutic Activity. Therapeutic Exercise. Physical Performance Test. Self Care/Home Management. Recommended Physical Therapy Follow Up: Upon acute care discharge, the following is currently recommended: Anticipate patient will have inpatient rehab needs beyond the acute stay. Equipment Provided: None issued this visit. Visit Number: Today's visit is number 4 Program: Orthopedics (Therapist may be reached on Vocera) SESSION: Duration: 26 CHARGES: - ORDER - Physical Therapy Treatment 1 Units 12753 - CHARGE - PT GAIT TRNG - 15 MIN 2 Units - ORTHOPEDIC VISIT 1 Units Total treatment minutes: 26.00 Minutes Electronically Signed by: Shannon Linton PT, DPT, 10/31/2020 2:16:41 PM * Francoise Harry - 10/31/2020 10:40 AM EDT Spiritual Care Progress Note Sales Strategy Manager: Asst. Margret Beattylain Patient Name: Deborah Webb Age: 40 y.o. Sex: female Room/Bed: 16599/2 Radha Affiliation/Tradition: Rastafarian Admit Date: 10/26/2020 Referrals: Referral From: Patient Referral To: Reference And Instruction Librarian Sales Strategy Manager Contact Information: [phone] Spiritual Care Assessment Spouse/Significant Other Name/Relationship: None present Assessed Need for Visit: Spiritual Companionship Patient Description: Grateful, Sad/Tearful Spiritual/Cultural/Social Issues Assessment: AsstRamu Sales Strategy Manager visited patient to bring her a Bible, per her request. Patient was seated in the recliner and grat ef to receive it and to speak about her radha. She grew up Mosque but had no t been attending. A member of [place] [employer] in [place] made her acquaintance and invited her to the [employer] and encourages her to read the Bible. Although s he lives alone, [3rd floor], she has a boyfriend and 3 children who live with th eir fathers. She became tearful speaking about her parents; her father is deceas ed since she was young. She has been through some difficulties but making progre ss and the yazdanism is providing some stability. A prayer for her recovery and anisa deluna was offered. Spiritual Care remains available. Spiritual Care Intervention: Scripture/Sacred Text, Supportive Listening, Words Of Hope/Pediatric Brochure, Prayer, Provide Ministry of Presence, Explore/Affirm Radha, Identify/Encourage Coping, Provide for Emotional Exp/Share Story Spiritual Outcomes - Patient: Expressed feelings, [place] comforted, accompanied, Grateful, Identified spiritual strengths Spiritual Outcomes - Family: Not available for assessment Spiritual Care Plan Goals of Care: Identify sources of hope and support these hopes. Outcome: stable Spiritual Care Follow Up Patient Follow-up Plan: Routine visit Family Follow-up Plan: No contact made at this time * Rosa Maria Andrews, OT - 10/31/2020 9:02 AM EDT Occupational Therapy Acute Care Treatment Note Medical Diagnosis: s/p IM Nail of left tibia shaft, closed treatement of fibula fracture with manipulation Rehabilitation Precautions/Restrictions: Per Ortho note on 10/29/20: "Toe touch weightbearing as tolerated to the LLE" OOB with assistance Goal Review Visit Number: 3 SUBJECTIVE Patient Report: Pt reports feeling "better than I have but I am waiting for my medicine this morning" Pain: Patient currently complains of pain. Location: L LE . Patient describes pain as Constant. Aching. Verbal Scale: Patient reports a pain level of 8 out of 10. Will inform nurse. Will perform therapy only as tolerated. Pain Medication Today: yes. OBJECTIVE General Observation: Pt received supine in bed, HOB LLE, +pulse ox, NAD, lines and tubes intact. No bed alarm noted at start of session. Vital Signs: Within Normal Limits. Range of Motion:No change observed. Strength:No change observed. Skin Integrity Screen: Visible areas grossly intact. Bandage intact to left lower extremity, PNB x2 LLE Self Care/Home Management: Bathing: Supervision. set up required . Task: upper extremity exercises: visual and verbal demonstration Provided: Task: functional transfer: supervision and verbal cues Provided: Splinting: No splint issued today. Cognitive Test Score: Not tested. Outcome Measures: [facility] AM-PAC "6 Clicks" Daily Activity Inpatient Short Form: Putting on and taking off regular lower body clothing: A little assistance (3) Bathing (including washing, rinsing, and drying): A little assistance (3) Toileting (including use of toilet, bedpan, or urinal): A little assistance (3) Putting on and taking off regular upper body clothing: A little assistance (3) Taking care of personal grooming such as brushing teeth: A little assistance (3) Eating meals: No assistance (4) Raw Score: Interventions: Self Care/Home Management: OT facilitated pt completion of full morning ADLs to improve activity tolerance and independence with ADLs. Pt able to complete full body bathing and dressing after set up. Pt requiring cues to pace activity. OT educated pt on adaptive strategies for bathing and dressing when fatigued such as figure four sock donning. Pt able to complete grooming EOB with set up. OT reviewed weightbearing precautions in which pt had good understanding. Pt able to transfer EOB to recliner chair with supervision for safety and management of lines. Pt demonstrated improved safety awareness today as evidenced by decreased cues required by OT. Once in chair, pt requiring moderate cues for breath control and relaxation strategies due to pt report of stress with medicine and IV line. Pt able to return demonstration of pursed lip breathing. Therapeutic Exercise: OT educated and demonstrated pt on upper extremity exercises to facilitate improved strength required for ADLs and functional mobility. OT demonstrated shoulder flexion exercises, wrist extension exercises, shoulder shrugs, and bicep curls, 1X30 each. Pt able to return demonstration with minimal cues and was educated on the importance of participation in therapy and continuing to expand upon exercises. Pt demonstrated fatigue after completing exercises and was educated on rest breaks. Pt to benefit from continuing exercises to optimize upper extremity function. Pt left with all needs met, working with nursing. Education: Mode of education provided: Explanation. Demonstration. Audience: Patient. Education Provided: Role of OT. Energy conservation strategies. Repositioning techniques. Transfer technique. Breath control. Activity tolerance. Safety. Upper extremity exercises. Treatment plan. . Response: Needs practice/reinforcement. Requires cues (auditory/physical). ASSESSMENT Response to Visit: The session was tolerated well. Pain unchanged. Patient demonstrated improved transfer technique. Pt participated within functional limits. Pt required verbal and visual cues to manage lines during transfer, demonstrated improved transfer technique after fading assist. Pt reports nervousness with IV line and antibiotics. Pt requiring increased verbal cues for breath control and relaxation when feeling anxious. Chair alarm was on at end of session. Pain: Yes, pain is unchanged from start of today's treatment. Goal review: Short Term Goals: 1. Pt will improve upper extremity muscle strength by one grade within 1 week. Status: Ongoing. Pt participating in functional activities to improve UE strength. 2. Pt will complete toilet transfer with modified indepedence and AE as needed for safety within 1 week Status: Ongoing. Pt currently still requiring supervision for safety and management of lines. Pt adhering to weightbearing precautions with cues. Medical Lab Assistant Goals: 1. Pt will complete full body ADLs including item retrieval with modified independence within 2 weeks Status: Ongoing. Pt requiring set up for full body ADLs due to decreased activity tolerance, strength, and functional mobility. PLAN Treatment Frequency, Duration and Interventions: Restorative Occupational Therapy recommended for 5x/week for 2 weeks Treatment is to include: Therapeutic Activity. Self Care/Home Management. Therapeutic Exercise. Equipment Provided: None issued this visit. Equipment Recommended: To be assessed. Recommended Occupational Therapy Follow Up: Upon acute care discharge, the following is currently recommended: Anticipate Rehab vs home with assistance; pending progress with goals. Pain and safety still limiting factor Recommended Consults: None currently. Development of Plan of Care: Participants included: Patient. Nurse. Visit Number: Today's visit is number 3 Program: Orthopedics (Therapist may be reached on Vocera) SESSION: Duration: 55 CHARGES: - ORDER - Occupational Therapy Treatment 1 Units 87727 - CHARGE - OT THER PRO - 15 MIN 2 Units 80559 - CHARGE - OT SELF CARE ADL TRAIN-15 MIN 2 Units - ORTHOPEDIC VISIT 1 Units Total treatment minutes: 55.00 Minutes Electronically Signed by: URSULA Aguilera/Fadi, 10/31/2020 10:54:09 AM * Ravi Muller MD - 10/31/2020 7:46 AM EDT Peripheral Nerve Block Progress Note Subjective: PNB day: 2 days Location: left Pop/Saph Infusion: Ropivicaine 0.2% @ 6ml/hr for Pop, Ropivicaine 0.2% @ 6ml/hr for Saph Interval History: Pain moderately controlled with PNB. Pain appears better contr olled from yesterday. Patient complained of some soreness after working with PT yesterday. Did well overnite. ROS: Paresthesias? no, Weakness? no Symptoms of local anesthetic toxicity: perioral numbness? no Dizziness? no Seizu re-like activity? no Mental status changes? no Cardiac abnormalities? no Current Medications: acetaminophen (TYLENOL) tablet 650 mg Oral Once buPROPion 450 mg Oral Daily busPIRone 5 mg Oral BID ceFAZolin sodium 2 g Intravenous Q8H enoxaparin 40 mg Subcutaneous Daily gabapentin 800 mg Oral TID levothyroxine 175 mcg Oral Daily methadone 145 mg Oral Daily potassium chloride 40 mEq Oral Q4H prazosin 1 mg Oral Nightly QUEtiapine 200 mg Oral Nightly trazodone 100 mg Oral Nightly PRN: acetaminophen (TYLENOL) tablet 650 mg Q4H PRN, morphine sulfate (PF) 4 mg Q4H AZ N, oxyCODONE 5 mg Q4H PRN Current Hospital Problem List: Principal Problem: Leg fracture, left, closed, initial encounter Active Problems: [place] History reviewed. No pertinent surgical history. Objective: Vital signs in last 24 hours: Vitals: 10/30/20202010/30/20 2345 10/31/20 0400 10/31/20 0726 BP: 118/65 (!) 113/93 106/65 122/78 BP Location: Right arm Left arm Left arm Left arm Patient Position: Lying Lying Lying Lying Pulse: 73 76 89 73 Resp: 18 16 16 18 Temp: 36.6 C (97.9 F) 37 C (98.6 F) 37.2 C (99 F) 36.7 C (98.1 F) TempSrc: Oral Oral Oral Oral SpO2: 98% 93% 93% 95% Weight: Height: Intake/Output last 3 shifts: I/O last 3 completed shifts: In: 900 [P.O.:900] Out: 800 [Urine:800] Data Review CBC: Lab Results Component Value Date WBC 4.8 10/31/2020 RBC 2.88 (L) 10/31/2020 HGB 8.8 (L) 10/31/2020 HCT 25.8 (L) 10/31/2020 PLT 178 10/31/2020 BMP: Lab Results Component Value Date NA 134 (L) 10/31/2020 K 3.2 (L) 10/31/2020 CL 99 10/31/2020 BICARBONATE 23 10/31/2020 GLUCOSE 91 10/31/2020 BUN 8 10/31/2020 CREATININE 1.13 (H) 10/31/2020 BCR 7 10/31/2020 GFRAA 71 10/31/2020 GFRNONAA 61 10/31/2020 Hepatic Panel: No results found for: ALBUMIN, ALKPHOS, ALT, AST, PROT, TBILI, BI LIDIR Coagulation: Lab Results Component Value Date INR 1.06 10/26/2020 Exam: NAD, AAO x 3 NCAT CVSS No respiratory distress Extremities- WWP; catheter sites=c/d/i, no surrounding erythem or pain Assessment/Plan: 40 y.o. year old female with peripheral nerve catheter day 2. Pain is adequately controlled on current regimen for both the popliteal & saphenous nerve block. 1. Continue current rate of saphenous NB Ropivicaine 0.2% at 6ml/hr 2. Continue current rate of pop NB Ropivicaine 0.2% at 6ml/hr 3. Consider multimodal approach to pain management 4. Add Robaxin 500 QID for increased pain control if needed 5. APS will continue to follow Patient discussed with Dr. Estefany Sandoval who is in agreement with the plan. Eric Muller MD APS Resident Associated attestation - Estefany Sandoval MD - 11/02/2020 2:23 PM EDT I saw and evaluated the patient. Discussed with the resident and agree with res idents findings as documented in the resident's note. * Claudia Fournier RN - 10/30/2020 3:33 PM EDT CM notified that patient is medically cleared for discharge to STR. Pt did not have any current bed offers this morning and CM launched her to all [facility] for STR and placed on DTP list. TONNY met with patient who states that her BF doesn't think it's a good idea for her to stay with him d/t the fac t of her having to go up/down stairs daily still to get to clinic, they both thi nk pt needs STR facility. CM explained about no bed offer yet and the need to e xpand search at this time. TCU consult placed and consulted with Deborah Suarez RN complex TONNY. TONNY to follow. * Emely Ryan, [facility] - 10/30/2020 2:00 PM EDT Internal Medicine Inpatient Progress Note Subjective I reveiwed and examined Ms. Webb this morning at the bedside. She stated that the current pain in her leg was not well controlled and was not sure if her nerv e block was leaking. She stated that she also felt nauseous, sweaty and congeste d, although better than yesterday. Before I saw her I was able to finally get a hold of [facility] and confirm her home dose of methadone is 145mg oral solution graham y. She stated that she felt that if she was able to get her home dose of methado ne soon then she will likely feel better. In terms of her left tibia and fibula, she denies any symptoms consistent with that of compartment syndrome. She will also be followed by the pain care team while in hospital. Review of Systems Constitutional: Positive for diaphoresis and fever. Negative for activity change , appetite change and chills. HENT: Negative. Respiratory: Negative for apnea, chest tightness and shortness of breath. Cardiovascular: Positive for palpitations. Negative for chest pain and leg swell ing. Gastrointestinal: Negative for abdominal distention, abdominal pain, anal bleedi ng, diarrhea and rectal pain. Endocrine: Negative. Genitourinary: Negative for enuresis, flank pain, frequency and urgency. Musculoskeletal: Positive for arthralgias, gait problem and myalgias. Skin: Positive for color change. Negative for pallor and rash. Horizontal cutting weiss on left forearm Allergic/Immunologic: Negative. Neurological: Negative for dizziness, light-headedness, numbness and headaches. Hematological: Negative for adenopathy. Does not bruise/bleed easily. Psychiatric/Behavioral: The patient is nervous/anxious. Objective Temp: [36.7 C (98.1 F)-37.5 C (99.5 F)] 37.1 C (98.8 F) Pulse: [80-110] 91 Resp: [16-18] 18 BP: (114-150)/(73-85) 114/82 SpO2: [92 %-95 %] 94 % O2 Therapy: Room air Intake/Output Summary (Last 24 hours) at 10/30/2020 1400 Last data filed at 10/30/2020 1222 Gross per 24 hour Intake 1100 ml Output 100 ml Net 1000 ml I/O last 3 completed shifts: In: 3012 [P.O.:1080; I.V.:1432; IV Piggyback:500] Out: 550 [Urine:550] I/O this shift: In: 300 [P.O.:300] Out: - Physical Exam Constitutional: She is oriented to person, place, and time. She appears ill. She appears distressed. HENT: Head: Normocephalic and atraumatic. Nose: Rhinorrhea present. Mouth/Throat: Mucous membranes are moist. Oropharyngeal exudate present. Eyes: Pupils are equal, round, and reactive to light. Cardiovascular: Normal heart sounds and normal pulses. Tachycardia present. Pulmonary/Chest: Effort normal and breath sounds normal. No stridor. No respirat ory distress. She has no wheezes. She has no rhonchi. Abdominal: Soft. Bowel sounds are normal. She exhibits no distension and no mass . There is no abdominal tenderness. No hernia. Musculoskeletal: General: Normal range of motion. Neurological: She is oriented to person, place, and time. Skin: Skin is warm. Capillary refill takes less than 2 seconds. Lesion noted. Sh e is diaphoretic. No erythema. Horizontal scars from cutting on left forearm Lines, Tubes, Monitors & Restraints Description Still Required? Comments PIV [x] Yes [] No Total Days of Anti-infective Therapy: 3 Anti-infectives (From admission, onward) Start Dose/Rate Route Frequency Ordered Stop 10/28/20 1530 ceFAZolin (ANCEF) IVPB 2 g in dextrose (premix) 2 g 200 mL/hr over 30 Minutes Intravenous Every 8 hours 10/28/20 1517 10/31/20 152 9 Laboratory Data (Most Recent in Past 3 Days) Lab 10/28/20 0047 10/28/20 0047 10/29/20 0011 071010/30/20221 WBC 8.0 < > 6.3 < > 5.7 HGB 11.1* < > 8.7* < > 9.0* HCT 32.2* < > 24.8* < > 26.4* MCV 89.8 < > 88.3 < > 89.4 PLT 211 -- 183 -- 185 < > = values in this interval not displayed. Lab 10/28/204610/28/204610/29/201010/29/201010/30/20221 NA 141 < > 139 < > 134* K 3.9 < > 3.2* < > 3.5 CL 105 < > 103 < > 99 BICARBONATE 24 < > 26 < > 23 GLUCOSE 93 < > 97 < > 93 BUN 11 < > 8 < > 6 CREATININE 1.09* -- 1.05* -- 1.13* < > = values in this interval not displayed. Lab 10/30/20221 CALCIUM 8.7 Lab 10/28/204610/28/204610/29/201010/29/201010/30/20221 NEUTOPHILPCT 75 < > 80 < > 75 LYMPHOPCT 15 < > 14 < > 14 MONOPCT 7 < > 5 < > 7 EOSPCT 2 -- 1 -- 3 < > = values in this interval not displayed. Invalid input(s): BILDIR Assessment/Plan Ms. Deborah Webb is a 40 y.o. female who is here for here for the following problems: # Left tibular-fibular fracture - continue multimodal pain management IV/PO. -Holding methadone pre-operatively. -started lovenox postop -ORIF on 10/28. 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 -Was able to contact [facility] this morning 10/30 to confirm home dose of methadone. Is currently on 145mg oral solution daily. Will continue that dose while in hosp [place] # Depression -continue current psychotropic regimen # Hypothyroidism -is currently on synthroid continue to monitor TSH and thyroid status post op # Sarcoidosis - not currently on any treatment. Monitor pulmonary status post-operatively. DVT Prophylaxis: low molecular weight heparin GI Prophylaxis: Not Indicated Functional Status: moderately impaired Code Status: Full Code Disposition: Plan discharge to: Home Estimated Discharge Date: The patient was discussed with Cr Nava MD who agrees with the assessment and plan as noted above. Signature: [facility] Date/Time: October 30, 2020 2:00 PM Associated attestation - Cr Nava MD - 10/30/2020 7:26 PM EDT I personally saw and evaluated the patient. I discussed the patient's managemen t with the resident and agree with the findings and plan as outlined in the sherryi dent's note. I independently reviewed all pertinent labs, imaging and other diagnostics. Orde rs and care plan were accordingly updated and discussed. Cr Nava MD. Division of Hospital Medicine * Shannon Linton, PT - 10/30/2020 1:28 PM EDT Physical Therapy Acute Care Treatment Note Medical Diagnosis: s/p fall from standing - left mid shaft tibia fracture comminuted with segmental fibula fracture s/p 10/28/[address] Ervin PROCEDURE PERFORMED: 1. IM nail of left tibial shaft fracture. 2. Closed treatment of left fibular fracture with manipulation. CT 10/27/2020 Old well-corticated avulsion fracture fragment the medial condyle. Rehabilitation Precautions/Restrictions: Per Ortho note on 10/29/20: "Toe touch weightbearing as tolerated to the LLE" OOB with assistance High fall risk Goal Review Visit Number: 2 SUBJECTIVE Patient Report: Patient reports she is feeling much better this afternoon. Notes she is willing to try stairs today. Pain: Patient currently complains of pain. Location: L LE . Patient describes pain as Nonspecific. Verbal Scale: Patient reports a pain level of 6 out of 10. Will perform therapy only as tolerated. Will inform nurse. Pain Medication Today: yes. OBJECTIVE General Observation: Patient received supine in bed with HOB elevated degrees, + masimo, + josee bandage to LLE, + PIV to LUE, + nerve block to LLE. Bed alarm was on at start of session. Vital Signs: SPO2 95% on room air HR 73 BPM Range of Motion:No change observed. Strength:No change observed. Skin Integrity Screen: Visible areas grossly intact. Bandage intact to left lower extremity, PNB x2 LLE Functional Status: Transfers: Patient transferred sit to/from stand with modified independence. Patient used the following equipment: Gait belt - use per hospital policy. Patient used the following equipment: Bed rails. Patient used the following equipment: rolling walker. uses bilat UE; maintains TDWB LLE. Bed Mobility: Patient moves from supine to/from sit with modified independence. uses HOB elevated, bilat UE, and unilateral bed rail. Uses RLE to assist management of LLE. Locomotion/Wheelchair: Not assessed. Locomotion/Gait/Ambulation: Patient was supervision with gait/ambulation for 2x device(s): Rolling walker. Gait belt. Maintains TDWB LLE, step-to pattern. Supervision required as patient is sometimes impulsive with movement. Minimal cuing required. Stairs: Patient was contact guard assist of 1 person for 1x 3" platform step in parallel bars . Patient used the following equipment: Bilateral Railing. Gait belt - use per hospital policy. Requires increased time & encouragement to complete task. Competent in 'up with the good, down with the bad' sequencing. Increased use of bilat UE. Outcome Measures: [facility] AM-PAC "6 Clicks" Basic Mobility Inpatient Short Form: Turning over in bed: A little difficulty (3) Sitting down on and standing up from a chair with arms: A little difficulty (3) Moving from lying on back to sitting on the side of the bed: A little difficulty (3) Moving to and from a bed to a chair (including a wheelchair): A little help (3) Walking in hospital room: A little help (3) Climbing 3-5 steps with a railing: Total assistance (1) Raw Score 16 /24. Interventions: Therapeutic Activities: Facilitated bed mobility this date to improve functional independence & prevent secondary complications. Instructed patient to perform teach-back of WB restrictions of LLE to ensure understanding & adherence to protocol during all mobility. Educated patient on benefit of frequent mobilization to help decrease pain levels. Facilitated ambulation with RW with minimal cuing to maintain TDWB LLE and keep RW at safe distance. Verbally instructed & demonstrated safe stair sequencing with bilat railings; provided assistance as patient performed single platform step within parallel bars. Provided supervision as patient ambulated back to bed and adjusted her positioning with modified independence. Patient remained in bed with all needs met. Education: Mode of education provided: Explanation. Demonstration. Audience: Patient. Education Provided: safe stair navigation, WB protocol. . Response: Applied knowledge. Verbalized understanding. Needs practice/reinforcement. ASSESSMENT Response to Visit: The session was tolerated well. Patient able to tolerate ambulation with less assistance this date. Able to navigate single platform step while maintaining WB protocols. Responds well to teach-back method. Bed alarm was on at end of session. Call oseguera was in patient's reach at end of session. Pain: Patient has no complaints of pain currently. Goal review: Patient continues to progress in therapy as demonstrated by ability to ambulate while requiring less assistance this date. Able to tolerate single platform step navigation this date. All goals remain appropriate. Changes in or Continuation of Plan of Care: Patient will benefit from continued therapy to achieve planned goals. PLAN Treatment Frequency, Duration and Interventions: Restorative Physical Therapy is recommended for 1x a day for 2 weeks Treatment is to include: Gait Training. Neuromuscular Re-education. Therapeutic Activity. Therapeutic Exercise. Wheelchair Management Physical Performance Test. Self Care/Home Management. Equipment Provided: None issued this visit. Equipment Recommended: To be assessed. Recommended Physical Therapy Follow Up: Upon acute care discharge, the following is currently recommended: Anticipate patient will have inpatient rehab needs beyond the acute stay. Recommended Consults: None currently. Development of Plan of Care: Participants included: pt. There was no change to plan of care today. Visit Number: Today's visit is number 3 Program: Orthopedics (Therapist may be reached on [place] [employer]) SESSION: Duration: 38 CHARGES: 48547 - CHARGE - PT THERAPEUTIC ACTIVITIES - 15 MIN 3 Units - ORTHOPEDIC VISIT 1 Units Total treatment minutes: 38.00 Minutes Electronically Signed by: Shannon Linton PT, DPT, 10/31/2020 12:11:05 PM * Rosa Maria Andrews OT - 10/30/2020 10:23 AM EDT Occupational Therapy Acute Care Encounter Note Medical Diagnosis: s/p IM Nail of left tibia shaft, closed treatement of fibula fracture with manipulation Rehabilitation Precautions/Restrictions: Per Ortho note on 10/29/20: "Toe touch weightbearing as tolerated to the LLE" OOB with assistance Goal Review Visit Number: 2 SUBJECTIVE Patient Report: Pt agreeable to OT session. Pt reports "feeling better now" Pain: Patient currently complains of pain. Location: L LE . Patient describes pain as Aching. Discomfort. Constant. Verbal Scale: Patient reports a pain level of 8 out of 10. Will perform therapy only as tolerated. Pain Medication Today: yes. OBJECTIVE General Observation: Pt received supine in bed, HOB LLE, +pulse ox, NAD No bed alarm noted at start of session. Skin Integrity Screen: Visible areas grossly intact. Bandage intact to left lower extremity, PNB x2 LLE Vital Signs: Within Normal Limits. Self Care/Home Management: Bathing: Supervision. set up required . Grooming: Supervision. set up required . Splinting: No splint issued today. Cognitive Test Score: Not tested. Outcome Measures: [facility] AM-PAC "6 Clicks" Daily Activity Inpatient Short Form: Putting on and taking off regular lower body clothing: A little assistance (3) Bathing (including washing, rinsing, and drying): A little assistance (3) Toileting (including use of toilet, bedpan, or urinal): A little assistance (3) Putting on and taking off regular upper body clothing: A little assistance (3) Taking care of personal grooming such as brushing teeth: A little assistance (3) Eating meals: No assistance (4) Raw Score: 19 /24 Interventions: Self Care/Home Management: OT facilitated pt completion of full body bathing and grooming to improve overall independence with ADLs, strength, and activity tolerance. Pt able to transition supine to sit EOB with cues for safety and management of lines. Once EOB, pt reported needing to use commode, attempted transfer quickly, requiring verbal and tactile cues from OT to pace oneself and adhere to weightbearing precautions. Pt able to verbally report precautions however still requiring cues during transition for safety awareness. Pt able to toilet with supervision. With fading verbal assist, pt able to transfer back to EOB with supervision. Pt completed full body bathing after set up. Pt appeared short of breath as noticed by labored breathing. OT educated pt on energy conservation strategies to prevent overexertion. OT educated pt on pursed lip breathing for proper breath control during activities. Pt able to don socks after setup today. Pt to benefit from increased safety awareness education. Pt left with all needs met. Education: Mode of education provided: Explanation. Demonstration. Audience: Patient. Education Provided: Body mechanics/postural changes. Precautions. Safe mobility. Safety. Repositioning techniques. Treatment plan. Role of OT. Discharge planning. Energy conservation strategies. Pursed lip breathing. . Response: Requires cues (auditory/physical). Needs practice/reinforcement. ASSESSMENT Response to Visit: The session was tolerated fair, as evidenced by: Pain unchanged. Patient demonstrated improved transfer technique. Pt participated within functional limits. Pt requiring increased cues for safety and proper transfer technique. Bed alarm was on at end of session. Call oseguera was in patient's reach at end of session. Pain: Yes, pain is unchanged from start of today's treatment. PLAN Treatment Frequency, Duration and Interventions: Restorative Occupational Therapy recommended for 5x/week for 2 weeks Treatment is to include: Self Care/Home Management. Therapeutic Activity. Therapeutic Exercise. Recommended Occupational Therapy Follow Up: Upon acute care discharge, the following is currently recommended: Rehab vs home with assistance; pending progress with goals. Pain and safety still limiting factor Visit Number: Today's visit is number 2 Program: Orthopedics (Therapist may be reached on [employer]) SESSION: Duration: 28 CHARGES: 57762 - CHARGE - OT SELF CARE ADL TRAIN-15 MIN 2 Units - ORTHOPEDIC VISIT 1 Units Total treatment minutes: 28.00 Minutes Electronically Signed by: URSULA Aguilera/Fadi, 10/30/2020 10:39:02 AM * Rosa Maria Andrews OT - 10/30/2020 8:56 AM EDT Occupational Therapy Acute Care Missed Visit Note Location: Bedside. Attempted to visit patient for therapy, but was unable for the following reasons: Pt currently reported high pain levels at this time. RN in room aware. Pt reports her IV is "leaking." RN reported its best to come back when it is removed/completed as pt currently needing to remain still. Will reattempt as scheduling allows. (Therapist may be reached on [employer]) SESSION: Duration: 0 CHARGES: - ORDER - Occupational Therapy Treatment 1 Units Total treatment minutes: 0.00 Minutes Electronically Signed by: Rosa Maria Andrews OTR/Fadi, 10/30/2020 9:53:57 AM * Shannon Linton PT - 10/30/2020 8:14 AM EDT Physical Therapy Acute Care Missed Visit Note Location: bedside Attempted to visit patient for therapy, but was unable for the following reasons: Patient declines therapy this morning secondary to having 'withdrawal' from methadone. Patient appears diaphoretic & with increased anxiety. Unable to motivate to participate this date. Will attempt this afternoon pending patient status & schedule availability. (Therapist may be reached on [employer] [employer]) SESSION: Duration: 0 CHARGES: - ORDER - Physical Therapy Treatment 1 Units Total treatment minutes: 0.00 Minutes Electronically Signed by: Shannon Linton PT, DPT, 10/30/2020 8:16:07 AM * Ravi Muller MD - 10/30/2020 8:10 AM EDT Peripheral Nerve Block Progress Note Subjective: PNB day: 1 days Location: left Pop/Saph Infusion: Ropivicaine .2% @ 6ml/hr for Pop, Ropivicaine .2% @ 4ml/hr for Saph Interval History: Pain moderately controlled with PNB. Patient complaining of me dial leg pain. Pain score of 9/10 currently. States good coverage for outside of leg. ROS: Paresthesias? no, Weakness? no Symptoms of local anesthetic toxicity: perioral numbness? no Dizziness? no Seizu re-like activity? no Mental status changes? no Cardiac abnormalities? no Current Medications: acetaminophen (TYLENOL) tablet 650 mg Oral Once benzonatate 200 mg Oral TID buPROPion 450 mg Oral Daily busPIRone 5 mg Oral BID ceFAZolin sodium 2 g Intravenous Q8H enoxaparin 40 mg Subcutaneous Daily gabapentin 800 mg Oral TID levothyroxine 175 mcg Oral Daily methadone 145 mg Oral Daily prazosin 1 mg Oral Nightly QUEtiapine 200 mg Oral Nightly trazodone 100 mg Oral Nightly PRN: acetaminophen (TYLENOL) tablet 650 mg Q4H PRN, morphine sulfate (PF) 4 mg Q4H AZ N, oxyCODONE 5 mg Q4H PRN Current Hospital Problem List: Principal Problem: Leg fracture, left, closed, initial encounter Active Problems: Akinesia History reviewed. No pertinent surgical history. Objective: Vital signs in last 24 hours: Vitals: 10/29/20 1842 10/30/20 0039 10/30/20 0433 10/30/20 0730 BP: 150/79 131/83 128/73 117/85 BP Location: Left arm Left arm Left arm Left arm Patient Position: Lying Lying Lying Lying Pulse: 80 (!) 102 (!) 110 100 Resp: 16 16 16 16 Temp: 36.8 C (98.2 F) 37.5 C (99.5 F) 37.4 C (99.3 F) 36 .7 C (98.1 F) TempSrc: Oral Oral Axillary Oral SpO2: 94% 92% 93% 95% Weight: Height: Intake/Output last 3 shifts: I/O last 3 completed shifts: In: 3012 [P.O.:1080; I.V.:1432; IV Piggyback:500] Out: 550 [Urine:550] Data Review CBC: Lab Results Component Value Date WBC 5.7 10/30/2020 RBC 2.96 (L) 10/30/2020 HGB 9.0 (L) 10/30/2020 HCT 26.4 (L) 10/30/2020 PLT 185 10/30/2020 BMP: Lab Results Component Value Date NA 134 (L) 10/30/2020 K 3.5 10/30/2020 CL 99 10/30/2020 BICARBONATE 23 10/30/2020 GLUCOSE 93 10/30/2020 BUN 6 10/30/2020 CREATININE 1.13 (H) 10/30/2020 BCR 6 10/30/2020 GFRAA 71 10/30/2020 GFRNONAA 61 10/30/2020 Hepatic Panel: No results found for: ALBUMIN, ALKPHOS, ALT, AST, PROT, TBILI, BI LIDIR Coagulation: Lab Results Component Value Date INR 1.06 10/26/2020 Exam: NAD, AAO x 3 NCAT CVSS No respiratory distress Extremities- WWP; catheter sites=c/d/i, no surrounding erythem aor pain Assessment/Plan: 40 y.o. year old female with peripheral nerve catheter day 1. Pain is adequately controlled on current regimen for the popliteal nerve block. The saphenous nerve block is not providing the same level of relief 1. Increased rate of saphenous NB Ropivicaine 0.2% from 4ml/hr to 6ml/hr 2. Continue current rate of pop NB Ropivicaine 0.2% at 6ml/hr 3. Consider multimodal approach to pain management 4. Add Robaxin 500 QID for increased pain control if needed 5. APS will continue to follow Patient discussed with Dr. Roney Burgess who is in agreement with the plan. Eric Muller MD APS Resident Associated attestation - Roney Burgess MD - 10/30/2020 2:09 PM EDT Agree with Resident plan, note reviewed but not edited. Increase in saphenous ca theter rate, patient appears more comfortable. PNB day 04/10. * Bran Patel MD - 10/30/2020 7:53 AM EDT ORTHOPEDIC SURGERY PROGRESS NOTE SUBJECTIVE: Patient is doing well. Pain controlled. Was able to get a block yesterday. OBJECTIVE: Temp: [36.7 C (98.1 F)-37.5 C (99.5 F)] 36.7 C (98.1 F) Pulse: [80-110] 100 Resp: [16-18] 16 BP: (116-150)/(73-85) 117/85 SpO2: [92 %-95 %] 95 % O2 Therapy: Room air Physical Exam: Gen: Patient is awake, alert and oriented. No acute distress. Lungs: Unlabored respirations, equal chest rise bilaterally Ext: LLE: Dressings clean, dry and intact. No drainage or stigmata of infection. Comp artments soft and compressible. Pulses intact. Movement intact. Distal neurovasc ular intact. ASSESSMENT: Deborah Webb is a 40 y.o. female s/p IM Nail of left tibia shaft, closed tr eatement of fibula fracture on 10/28/2020. She is doing well post-operatively. PLAN: - Toe touch weightbearing as tolerated to the LLE - Keep dressings clean, dry, and intact; plan for dressing change today - PT/OT/OOB - DVT Ppx - SCIP antibiotics - Please call orthopaedic surgery with any questions or concerns Associated attestation - Manjeet Ervin MD - 10/31/2020 4:49 PM EDT I saw and evaluated the patient. Discussed with the resident and agree with the residents findings and plans as written, along with any supplemental dictated a nd/or attending documentation in the patient record by myself. * Emely Ryan MBBCH - 10/30/2020 7:19 AM EDT I was finally able to get a hold of [facility] to confirm home dose of methadone. She receives 145mg daily of oral solution. And was sent home with a home supply of 725mg. * Emely Ryan MBB[facility] - 10/29/2020 1:58 PM EDT Internal Medicine Inpatient Progress Note Subjective I reviewed and examined Ms. Webb this morning at the bedside. When I arrived s he was sweaty and in distress. She asked if she was getting her methadone today which I replied I need to confirm with [facility] in [place] regarding what her ap[place] e dose is. She also complained of 7/10 pain in her left lower leg. She does not complain of any increased pressure in the leg, paresthesias or paralysis and she is able to move her toes on command. Pain Care performed a nerve block later th is afternoon after being unsuccessful post op yesterday. I have called and left a message at [facility] regarding confirmation of a home dose of methadone, until the n we have given 30mg of the oral solution per addiction psychiatry and have aske d pharmacy to do a med rec. Review of Systems Constitutional: Positive for diaphoresis and fever. Negative for activity change , appetite change and chills. HENT: Negative. Respiratory: Negative for apnea, chest tightness and shortness of breath. Cardiovascular: Positive for palpitations. Negative for chest pain and leg swell ing. Gastrointestinal: Negative for abdominal distention, abdominal pain, anal bleedi ng, diarrhea and rectal pain. Endocrine: Negative. Genitourinary: Negative for enuresis, flank pain, frequency and urgency. Musculoskeletal: Positive for arthralgias, gait problem and myalgias. Skin: Negative for color change, pallor and rash. Allergic/Immunologic: Negative. Neurological: Negative for dizziness, light-headedness, numbness and headaches. Hematological: Negative for adenopathy. Does not bruise/bleed easily. Psychiatric/Behavioral: The patient is nervous/anxious. Objective Temp: [36.3 C (97.3 F)-37.4 C (99.3 F)] 37 C (98.6 F) Pulse: [65-99] 84 Resp: [13-25] 16 BP: (118-146)/(73-93) 141/84 SpO2: [90 %-97 %] 94 % O2 Therapy: Room air O2 Flow Rate (L/min): [3 L/min] 3 L/min Intake/Output Summary (Last 24 hours) at 10/29/2020 1358 Last data filed at 10/29/2020 1200 Gross per 24 hour Intake 2212 ml Output 1250 ml Net 962 ml I/O last 3 completed shifts: In: 1999 [I.V.:1999] Out: 975 [Urine:975] I/O this shift: In: 2212 [P.O.:480; I.V.:1432; IV Piggyback:300] Out: 450 [Urine:450] Physical Exam Constitutional: She is oriented to person, place, and time. She appears ill. She appears distressed. HENT: Head: Normocephalic and atraumatic. Nose: Rhinorrhea present. Mouth/Throat: Mucous membranes are moist. Oropharyngeal exudate present. Eyes: Pupils are equal, round, and reactive to light. Cardiovascular: Normal heart sounds and normal pulses. Tachycardia present. Pulmonary/Chest: Effort normal and breath sounds normal. No stridor. No respirat ory distress. She has no wheezes. She has no rhonchi. Abdominal: Soft. Bowel sounds are normal. She exhibits no distension and no mass . There is no abdominal tenderness. No hernia. Musculoskeletal: General: Normal range of motion. Neurological: She is oriented to person, place, and time. Skin: Skin is warm. Capillary refill takes less than 2 seconds. She is diaphoret ic. No erythema. Lines, Tubes, Monitors & Restraints Description Still Required? Comments PIV [x] Yes [] No Total Days of Anti-infective Therapy: 2 Anti-infectives (From admission, onward) Start Dose/Rate Route Frequency Ordered Stop 10/28/20 1530 ceFAZolin (ANCEF) IVPB 2 g in dextrose (premix) 2 g 200 mL/hr over 30 Minutes Intravenous Every 8 hours 10/28/20 1517 10/31/20 152 9 Laboratory Data (Most Recent in Past 3 Days) Lab 10/26/20191110/26/20191110/28/20 0047 10/28/20 0047 10/29/20 0011 WBC 12.7* < > 8.0 < > 6.3 HGB 10.7* < > 11.1* < > 8.7* HCT 31.3* < > 32.2* < > 24.8* MCV 90.6 < > 89.8 < > 88.3 PLT 171 -- 211 -- 183 < > = values in this interval not displayed. Lab 10/26/20191110/26/20191110/28/20 0047 10/28/20 0047 10/29/20 0011 NA 139 < > 141 < > 139 K 4.3 < > 3.9 < > 3.2* CL 104 < > 105 < > 103 BICARBONATE 22 < > 24 < > 26 GLUCOSE 107 < > 93 < > 97 BUN 9 < > 11 < > 8 CREATININE 1.36* -- 1.09* -- 1.05* < > = values in this interval not displayed. Lab 10/29/20 0011 CALCIUM 8.3* Lab 10/26/20191110/26/201911 10/25/21 0047 10/28/20 0047 10/29/20 0011 NEUTOPHILPCT 89 < > 75 < > 80 LYMPHOPCT 6 < > 15 < > 14 MONOPCT 5 < > 7 < > 5 EOSPCT 0 -- 2 -- 1 < > = values in this interval not displayed. Invalid input(s): BILDIR Lab 10/26/201911 INR 1.06 Assessment/Plan Ms. Deborah Webb is a 40 y.o. female who is here for the following problems : # Left tibular-fibular fracture - continue multimodal pain management IV/PO. - Holding methadone pre-operatively. -started lovenox postop -ORIF yesterday 10/28. Will continue to monitor pain H&H and vitals post op -Pain management has done a nerve block this afternoon 10/29 # Chronic opioid dependence - addiction psychiatry consultation post-operatively and transition back to [facility] methadone therapy post-op. -Actively withdrawing this morning. Consulted addiction psych and told to give 3 0mg of methadone until can confirm with [facility] regarding home dose of methadone. So far unsuccessful and have also asked pharmacy do perform a med rec # Depression -continue current psychotropic regimen # Hypothyroidism -is currently on synthroid continue to monitor TSH and thyroid status post op # Sarcoidosis - not currently on any treatment. Monitor pulmonary status post-operatively. DVT Prophylaxis: low molecular weight heparin GI Prophylaxis: Not Indicated Functional Status: moderately impaired Code Status: Full Code Disposition: Plan discharge to: Home Estimated Discharge Date: tbd The patient was discussed with Cr Nava MD who agrees with the assessment and plan as noted above. Signature: Emely Ryan MBBC Date/Time: October 29, 2020 1:58 PM Associated attestation - Cr Nava MD - 10/29/2020 6:51 PM EDT I personally saw and evaluated the patient. I discussed the patient's managemen t with the resident and agree with the findings and plan as outlined in the sherryi dent's note. I independently reviewed all pertinent labs, imaging and other diagnostics. Orde rs and care plan were accordingly updated and discussed. Cr Nava MD. Division of Hospital Medicine * Claudia Fournier RN - 10/29/2020 12:50 PM EDT Case Management Screen & Assessment Patient Name: Deborah Webb Gender: female Date of : 1980 Admission Dx: Leg fracture, left, closed, initial encounter [S82.92XA] Akinesia [R29.898] Age: 40 y.o. Admission: 10/26/2020 5:54 PM Attending Provider: Cr Nava MD High Risk Criteria - Prior to Admission/Upon Arrival [employer] EYE- Home Care Services: No Limited Home Supports/Lives Alone?: No Multi trauma/Critical care/Step down admit?: No Head/Spinal cord injury?: No Self Pay: No Multiple ED visits?: No Related/Unplanned readmission within 30 days?: No Complex/New medical issues: Left tib/fib fracture s/p fall from standing Relevant comorbidities: Anxiety, depression, GERD, ANDRE, substance use, Thyroid di sease, frequent falls, sarcoidosis Psychosocial considerations: Pt lives alone in a 3rd floor apt Screening Outcome Social Work Consult Needed?: No Further Case Management Needs?: Case Management Needs Chart Review PCP Verified?: Patient has PCP Prior to Admission: Functional/Environmental Assessment Bathing: Independent Dressing: Independent Toileting: Independent Medication administration: Independent Transfers: Independent Ambulation: Independent Meal preparation: Independent Number of stairs into home: 36 Number of stairs to bathroom: 0 Number of stairs to bedroom: 0 Prior to Admission: Support Services Other: TLS-housing, Methadone Clinic: [facility] [phone] Potential Barriers/Teaching Needs Physical: safety, mobility, pain Discharge Planning Living Arrangements: Alone Support Systems: Spouse/significant other Type of Residence: Private residence Patient/family informed of need for discharge planning?: Yes Patient expects to be discharged to:: STR vs home w/services Patient/Agent informed of choice and given written list?: Patient/agent accepted list Does the patient need discharge transport arranged?: Yes (Medicaid cab/medical t [place]) Note: CM met with patient to introduce myself and role of renal case manager. Pt admi tted with Left tib/fib fracture s/p fall from standing. Pt had repair/IMN done in OR yesterday. Pt lives in a 3rd floor apt, alone. She states that she can s maikol with her boyfriend at discharge if she is able to go home. His address is [address] [place] [address], she will confirm this with him. She states that besid es her S.O. she doesn't really have any other formal assistance. She can't rely on her mother who has her own things to deal with. Pt receives support for aspen vieyra and goes to Methadone clinic mentioned above. CM provided pt with benefit check and reviewed STR and home care with pt. She states that is she was able t o go home, she doesn't think she would have 24/7 assistance at either home. Pt in agreement to be launched to [facility], all SNF's on benefit check in [facility], and she will check with her S.O. about which home care agency he used so she can use the same one if able to go to his house. Anticipate patient to be discharged to STR vs home w/services once medically cleared. CM to follow. Claudia Fournier * Bran Patel MD - 10/29/2020 7:09 AM EDT ORTHOPEDIC SURGERY PROGRESS NOTE SUBJECTIVE: Patient is doing well. Pain controlled. OBJECTIVE: Temp: [36.3 C (97.3 F)-37.4 C (99.3 F)] 37 C (98.6 F) Pulse: [59-99] 74 Resp: [13-25] 16 BP: (90-151)/(43-93) 128/76 SpO2: [92 %-97 %] 96 % O2 Therapy: Room air O2 Flow Rate (L/min): [2 L/min-10 L/min] 3 L/min Physical Exam: Gen: Patient is awake, alert and oriented. No acute distress. Lungs: Unlabored respirations, equal chest rise bilaterally Ext: LLE: Dressings clean, dry and intact. No drainage or stigmata of infection. Comp artments soft and compressible. Pulses intact. Movement intact. Distal neurovasc ular intact. ASSESSMENT: Deborah Webb is a 40 y.o. female s/p IM Nail of left tibia shaft , closed treatement of fibula fracture with manipulation-Per Dr. Ervin (Left) . She is doing well post-operatively. PLAN: - Toe touch weightbearing as tolerated to the LLE - Keep dressings clean, dry, and intact - PT/OT/OOB - DVT Ppx - SCIP antibiotics - Please call orthopaedic surgery with any questions or concerns Associated attestation - Manjeet Ervin MD - 10/31/2020 4:49 PM EDT I saw and evaluated the patient. Discussed with the resident and agree with the residents findings and plans as written, along with any supplemental dictated a nd/or attending documentation in the patient record by myself. * Mateo Gomez MD - 10/29/2020 1:28 AM EDT COMPARTMENT CHECK Subjective: On repeat compartment check, patient reports that her pain is well c ontrolled. Denies N/T. Resting comfortably in bed. Physical Exam: Dressings c/d/i Sensation intact to light touch to toes Extensor hallucis longus / flexor hallucis longus motor function intact. Toes warm and well perfused. Brisk capillary refill. Leg compartments soft and compressible. No pain on passive toe flexion and exte nsion. Assessment: Low suspicion for compartment syndrome at this time. Plan: - Will continue to monitor -rest of plan per brief op note * Mateo Gomez MD - 10/28/2020 8:33 PM EDT COMPARTMENT CHECK Subjective: Patient reports that her pain is well controlled. Denies N/T. Physical Exam: Dressings c/d/i Sensation intact to light touch to toes Extensor hallucis longus / flexor hallucis longus motor function intact. Toes warm and well perfused. Brisk capillary refill. Leg compartments soft and compressible. No pain on passive toe flexion and exte nsion. Assessment: Low suspicion for compartment syndrome at this time. Plan: - Will continue to monitor -rest of plan per brief op note * Naun Beard MD - 10/28/2020 4:35 PM EDT ORTHOPEDIC TRAUMA SURGERY PROGRESS NOTE SUBJECTIVE: Patient doing well postoperatively with good pain control. Denies any new numbn ess or tingling in her left lower extremity. Has no complaints or concerns at t his time. OBJECTIVE: Temp: [36.3 C (97.3 F)-37.2 C (99 F)] 36.9 C (98.4 F) Pulse: [59-99] 95 Resp: [13-25] 18 BP: (90-151)/(43-93) 146/93 SpO2: [92 %-97 %] 97 % O2 Therapy: Oxygen O2 Flow Rate (L/min): [2 L/min-10 L/min] 3 L/min PHYSICAL EXAM General: Patient is awake, alert and oriented. No acute distress. Appears comfor table in bed. Lungs: Unlabored respirations. Extremities: Left Lower Extremity: Long-leg splint in place, clean dry and intact No tenderness to bony palpation of the foot or ankle. Sensation intact to light touch to toes. Extensor hallucis longus / flexor hallucis longus motor function intact. Toes warm and well perfused. Palpable dorsalis pedis and posterior tibial pulse s Active ROM of the ankle without pain. Data Reviewed CBC: Lab Results Component Value Date WBC 8.0 10/28/2020 RBC 3.58 (L) 10/28/2020 HGB 11.1 (L) 10/28/2020 HCT 32.2 (L) 10/28/2020 PLT 211 10/28/2020 BMP: Lab Results Component Value Date NA 141 10/28/2020 K 3.9 10/28/2020 CL 105 10/28/2020 BICARBONATE 24 10/28/2020 GLUCOSE 93 10/28/2020 BUN 11 10/28/2020 CREATININE 1.09 (H) 10/28/2020 BCR 10 10/28/2020 GFRAA 74 10/28/2020 GFRNONAA 64 10/28/2020 Coagulation: Lab Results Component Value Date INR 1.06 10/26/2020 ASSESSMENT: Deborah Webb is a 40 y.o. female with left tibia shaft fracture s/p IM nail of left tibia shaft with closed treatment of fibular fracture with manipulation on 10/28/2020. PLAN: - Toe touch weightbearing as tolerated to the LLE - Keep dressings clean, dry, and intact - PT/OT/OOB - Compartment checks x 24 hours post-op -24 hours of antibiotics and DVT prophylaxis - Please call orthopaedic surgery with any questions or concerns * Dwight Johnson PT - 10/28/2020 4:05 PM EDT Physical Therapy Acute Care Missed Visit Note Location: bedside Attempted to visit patient for therapy, but was unable for the following reasons: Attempted to see patient. Unable to see patient. Per discussion with patient's RN, patient just got back from the OR, is in 10/10 pain, and will be staying the night. Patient will be seen by therapist in the AM on 10/29. (Therapist may be reached on [place] [employer]) SESSION: Duration: 0 CHARGES: Total treatment minutes: Minutes Electronically Signed by: Dwight Johnson PT, DPT, 10/28/2020 4:08:39 PM * Tiffani Rehman PT - 10/28/2020 4:01 PM EDT Physical Therapy Acute Care Missed Visit Note Location: bedside Attempted to visit patient for therapy, but was unable for the following reasons: Pt just returned from OR defer until tomorrow. Will reapproach Thursday as appropriate. (Therapist may be reached on [employer] [employer]) SESSION: Duration: 0 CHARGES: - ORDER - Physical Therapy Treatment 1 Units Total treatment minutes: 0.00 Minutes Electronically Signed by: Tiffani Rehman PT, DPT, 10/28/2020 4:02:39 PM * Sarai aMlik NP - 10/28/2020 2:46 PM EDT ORTHOPEDIC SURGERY POST-OPERATIVE CHECK SUBJECTIVE: Patient is doing well. Pain adequately controlled. Tolerating sips well. Urinati ng without difficulty. OBJECTIVE: Temp: [36.4 C (97.5 F)-37.2 C (99 F)] 36.4 C (97.5 F) Pulse: [59-87] 62 Resp: [15-23] 20 BP: (90-151)/(43-87) 107/76 SpO2: [92 %-96 %] 94 % O2 Therapy: Oxygen O2 Flow Rate (L/min): [2 L/min-10 L/min] 3 L/min Physical Exam: Gen: Patient is awake, alert and oriented. No acute distress. Lungs: Unlabored respirations, equal chest rise bilaterally Ext: LLE: Dressing clean, dry and intact. No drainage or stigmata of infection. Daryl rtments soft and compressible. Pulses intact. Movement intact. Distal neurovascu lar intact. ASSESSMENT: Deborah Webb is a 40 y.o. female Hospital Day: 3 s/p Procedure(s ) (LRB): IM Nail of left tibia shaft, closed treatement of fibula fracture with manipulat ion-Per Dr. Ervin (Left) Day of Surgery. She is doing well post-operatively. PLAN: - Toe touch weightbearing as tolerated to the LLE - Keep dressings clean, dry, and intact - PT/OT/OOB - Compartment checks x 24 hours post-op - DVT Ppx - SCIP antibiotics - Please call orthopaedic surgery with any questions or concerns Orthopedic Surgery 10/28/2020 2:47 PM * Dwight Johnson PT - 10/28/2020 2:15 PM EDT Physical Therapy Acute Care Missed Visit Note Location: bedside Attempted to visit patient for therapy, but was unable for the following reasons: Attempted to see patient. Unable to see patient due to patient is in the OR. Will conitnue to monitor pateint and reattempt as appropriate. (Therapist may be reached on [employer]) SESSION: Duration: 0 CHARGES: - ORDER - PHYSICAL THERAPY CONSULT 1 Units Total treatment minutes: 0.00 Minutes Electronically Signed by: Dwight Johnson PT, DPT, 10/28/2020 4:07:02 PM * Brianna Shaffer OT - 10/28/2020 12:52 PM EDT Occupational Therapy Acute Care Missed Visit Note Location: Bedside. Attempted to visit patient for therapy, but was unable for the following reasons: Patient went to OR. New OT pending d/c recieved. Pt continues to be off floor in OR at this time. Will continue to follow and treat as able and appropriate. (Therapist may be reached on [employer]) SESSION: Duration: 0 CHARGES: - ORDER - OCCUPATIONAL THERAPY CONSULT 1 Units Total treatment minutes: 0.00 Minutes Electronically Signed by: Brianna Shaffer OTR, 10/28/2020 12:53:01 PM * [facility] - 10/28/2020 11:52 AM EDT Internal Medicine Inpatient Progress Note Subjective Pt was at pre-op when I arrived to the unit this morning. Was unable to complete a history and physical exam due to not being on the unit. We will continue to m onitor vitals, H&H and pain tolerance post-op. Tomorrow morning we will call the methadone clinic that she is a patient of to confirm her dosing and restart methadone after completing pain control post-op. Review of Systems Unable to perform ROS: Other Objective Temp: [36.8 C (98.2 F)-37.2 C (99 F)] 36.9 C (98.4 F) Pulse: [72-79] 77 Resp: [16-18] 16 BP: (126-151)/(71-87) 151/87 SpO2: [92 %-95 %] 92 % O2 Therapy: Oxygen O2 Flow Rate (L/min): [2 L/min] 2 L/min Intake/Output Summary (Last 24 hours) at 10/28/2020 1152 Last data filed at 10/28/2020 1118 Gross per 24 hour Intake 1000 ml Output 175 ml Net 825 ml No intake/output data recorded. I/O this shift: In: 1000 [I.V.:1000] Out: 175 [Urine:175] Physical Exam Vitals reviewed: Unable to complete physical due to patient being pre-op for marva beryl and out of unit. Lines, Tubes, Monitors & Restraints Description Still Required? Comments PIV [x] Yes [] No Total Days of Anti-infective Therapy: 0 Laboratory Data (Most Recent in Past 3 Days) Lab 10/26/20191110/26/20191110/28/20 0047 WBC 12.7* < > 8.0 HGB 10.7* < > 11.1* HCT 31.3* < > 32.2* MCV 90.6 < > 89.8 PLT 171 -- 211 < > = values in this interval not displayed. Lab 10/26/20191110/26/20191110/28/20 0047 NA 139 < > 141 K 4.3 < > 3.9 CL 104 < > 105 BICARBONATE 22 < > 24 GLUCOSE 107 < > 93 BUN 9 < > 11 CREATININE 1.36* -- 1.09* < > = values in this interval not displayed. Lab 10/28/20 0047 CALCIUM 9.1 Lab 10/26/20191110/26/20191110/28/20 0047 NEUTOPHILPCT 89 < > 75 LYMPHOPCT 6 < > 15 MONOPCT 5 < > 7 EOSPCT 0 -- 2 < > = values in this interval not displayed. Invalid input(s): BILDIR Lab 10/26/201911 INR 1.06 Assessment/Plan Ms. Deborah Webb is a 40 y.o. female who is here for the following problems: # Left tibular-fibular fracture - continue multimodal pain management IV/PO. - Holding methadone pre-operatively. -Start DVT ppx post-op once cleared by Orthopedics. -ORIF today 10/28. Will continue to monitor pain H&H and vitals post op # Chronic opioid dependence - addiction psychiatry consultation post-operatively and transition back to [facility] methadone therapy post-op. -Confirm dosing with methadone office when open tomorrow 10/29 # Depression -continue current psychotropic regimen # Hypothyroidism -is currently on synthroid continue to monitor TSH and thyroid status post op # Sarcoidosis - not currently on any treatment. Monitor pulmonary status post-operatively. DVT Prophylaxis: resuming post op GI Prophylaxis: Not Indicated Functional Status: moderately impaired Code Status: Full Code Disposition: Plan discharge to: Home Estimated Discharge Date: TBD The patient was discussed with Cr Nava MD who agrees with the assessment and plan as noted above. Signature: Emely Ryan [facility] Date/Time: October 28, 2020 11:52 AM Associated attestation - Cr Nava MD - 10/28/2020 3:28 PM EDT I personally saw and evaluated the patient. I discussed the patient's managemen t with the resident and agree with the findings and plan as outlined in the resi dent's note. I independently reviewed all pertinent labs, imaging and other diagnostics. Orde rs and care plan were accordingly updated and discussed. POD #0 IM nailing of left tibial shaft and closed treatment of left fibula fract ure with manipulation as per Orthopedics. Continue multimodal pain management. The patient is on Methadone as an outpatien t for chronic opioid dependence. We were advised to hold Methadone for now in alyin-operative period while the patient received inpatient opioid pain managem ent with Oxycodone and IV morphine. She received a nerve block by anesthesia and she will be evaluated by pain service. Methadone clinic closed (Thursday). Team t o contact the office tomorrow to confirm patient's outpatient Methadone dose. Cr Nava MD. Division of Hospital Medicine * Brianna Shaffer, OT - 10/28/2020 8:43 AM EDT Occupational Therapy Acute Care Missed Visit Note Location: Bedside. Attempted to visit patient for therapy, but was unable for the following reasons: Patient went to OR. Pt in OR for L tibia ORIF. Will continue to follow and treat as able and appropriate. (Therapist may be reached on [employer]oc[employer]) SESSION: Duration: 0 CHARGES: - ORDER - OCCUPATIONAL THERAPY CONSULT 1 Units Total treatment minutes: 0.00 Minutes Electronically Signed by: Brianna Shaffer OTR, 10/28/2020 8:46:41 AM * Oziel Pelaez MD - 10/28/2020 4:58 AM EDT ORTHOPEDIC TRAUMA SURGERY PROGRESS NOTE Date of Injury: 10/26/2020 Orthopedic injuries sustained: L tibia/fibula Interval Present History: No acute events overnight. Pain is well controlled. Vital Signs: Temp: [36.5 C (97.7 F)-37.2 C (99 F)] 36.9 C (98.4 F) Pulse: [70-92] 77 Resp: [16-18] 16 BP: (110-132)/(57-85) 128/71 SpO2: [91 %-95 %] 95 % O2 Therapy: Oxygen O2 Flow Rate (L/min): [1 L/min-2 L/min] 2 L/min PHYSICAL EXAM General: Patient is awake, alert and oriented. No acute distress. Appears comfor table in bed. Lungs: Unlabored respirations. Left Lower Extremity: Splint clean, dry and intact. EHL/FHL intact Sensation intact to the toes Toes are warm and well perfused Data Reviewed CBC: Lab Results Component Value Date WBC 8.0 10/28/2020 RBC 3.58 (L) 10/28/2020 HGB 11.1 (L) 10/28/2020 HCT 32.2 (L) 10/28/2020 PLT 211 10/28/2020 BMP: Lab Results Component Value Date NA 141 10/28/2020 K 3.9 10/28/2020 CL 105 10/28/2020 BICARBONATE 24 10/28/2020 GLUCOSE 93 10/28/2020 BUN 11 10/28/2020 CREATININE 1.09 (H) 10/28/2020 BCR 10 10/28/2020 GFRAA 74 10/28/2020 GFRNONAA 64 10/28/2020 Coagulation: Lab Results Component Value Date INR 1.06 10/26/2020 Assessment: Deborah Webb is a 40 y.o. female with a left tibia/fibula fracture. Plan: - Plan for OR today (10/28) - Patient NPO, labs, COVID, case request, clearance, consent obtained. Associated attestation - Manjeet Ervin MD - 10/28/2020 9:16 AM EDT I saw and evaluated the patient. Discussed with the resident and agree with the residents findings and plans as written, along with any supplemental dictated a nd/or attending documentation in the patient record by myself. * Jessica Mota RN - 10/27/2020 5:55 PM EDT Assumed care [phone]. Pt stable, no change from previously documented assessme nt. * Cr Nava MD - 10/27/2020 5:46 PM EDT INPATIENT PROGRESS NOTE Department: Medicine SUBJECTIVE: Reports moderate to severe persistent, acute, dull pain localized to LLE that is improved with laying still. Afebrile. Breathing comfortably on room air. Reports she takes Methadone as outpatient for opioid dependence through a [facility]. We were unable to confirm the dose today with their office as they w ere closed (Thursday). Review of Systems Constitutional: Positive for activity change, appetite change and fatigue. Negat doron for diaphoresis and fever. Respiratory: Negative for cough, shortness of breath, wheezing and stridor. Cardiovascular: Negative for chest pain, palpitations and leg swelling. Gastrointestinal: Negative for abdominal distention, abdominal pain, constipatio n and diarrhea. Musculoskeletal: Positive for arthralgias, gait problem and joint swelling. Neurological: Positive for weakness. Negative for tremors and syncope. Hematological: Negative for adenopathy. Does not bruise/bleed easily. Psychiatric/Behavioral: Negative for agitation and behavioral problems. OBJECTIVE: Vitals: 10/27/20 0813 10/27/20 1100 10/27/20 1150 10/27/20 1527 BP: 110/63 126/80 131/80 Pulse: 92 70 79 Resp: 16 16 18 Temp: 36.5 C (97.7 F) 36.9 C (98.4 F) 36.8 C (98.2 F) SpO2: 91% 92% 91% 94% No intake or output data in the 24 hours ending 10/27/20 1746 No intake/output d lindsay recorded. No intake/output data recorded. Physical Exam Vitals and nursing note reviewed. Constitutional: Appearance: She is obese. She is not toxic-appearing or diaphoretic. HENT: Head: Normocephalic and atraumatic. Mouth/Throat: Mouth: Mucous membranes are moist. Pharynx: No oropharyngeal exudate or posterior oropharyngeal erythema. Cardiovascular: Rate and Rhythm: Normal rate and regular rhythm. Pulses: Normal pulses. Heart sounds: Normal heart sounds. Pulmonary: Effort: Pulmonary effort is normal. Abdominal: General: Abdomen is flat. Bowel sounds are normal. There is no distension. Tenderness: There is no abdominal tenderness. Musculoskeletal: General: Swelling, tenderness, deformity and signs of injury present. Cervical back: Normal range of motion and neck supple. Right lower leg: No edema. Left lower leg: Edema present. Skin: General: Skin is warm and dry. Capillary Refill: Capillary refill takes less than 2 seconds. Coloration: Skin is not jaundiced. Neurological: General: No focal deficit present. Mental Status: She is alert and oriented to person, place, and time. Laboratory Data Recent Labs Lab 10/26/201911 WBC 12.7* HGB 10.7* HCT 31.3* MCV 90.6 PLT 171 Recent Labs Lab 10/26/201911 NEUTOPHILPCT 89 MONOPCT 5 Recent Labs Lab 10/26/201911 NA 139 K 4.3 CL 104 BICARBONATE 22 BUN 9 CREATININE 1.36* GLUCOSE 107 No results found for: PROT, ALBUMIN, AST, ALT, TBILI, ALKPHOS Recent Labs Lab 10/26/201911 CALCIUM 8.7 Recent Labs Lab 10/26/201911 INR 1.06 ASSESSMENT & PLAN: Ms. Deborah Webb is a 40 y.o. year old female who is here for the following problems: Principal Problem: Leg fracture, left, closed, initial encounter Active Problems: Akinesia # Left tibular-fibular fracture - continue multimodal pain management IV/PO. Hol ding methadone pre-operatively. Start DVT ppx post-op once cleared by Orthopedic s. Awaiting surgery today. NPO for now. IV fluids 75 ml/hr NS. # Chronic opioid dependence - addiction psychiatry consultation post-operatively and transition back to chronic methadone therapy post-op. Confirm dosing with [facility] when open. # Depression - continue psychotropic regimen. # Hypothyroidism - synthroid. # Sarcoidosis - not currently on any treatment. Monitor pulmonary status post-op eratively. Currently breathing comfortably on RA. Cr Nava MD 5:46 PM 10/27/2020 * Cr Nava MD - 10/27/2020 10:07 AM EDTSummary: Pre-operative risk stratification #Preopative risk stratification: Cardiovascular Aylin-Operative Risk Stratification Based upon evidence and ACC/ACH clinical guidelines Major Active Cardiac Conditions Present? (unstable coronary syndromes, decompen sated CHF, unstable heart rhythm, severe heart valve disease). NO Revised Cardiac Risk Index (RCRI) Criteria Score Total RCRI Score: 0 RCRI Risk Calculation: Per RCRI guidelines, the patient has a 3.9% chance of pe ri-op cardiac complications including NH, VF, cardiac arrest, AV block, or heart failure. Patient only 0 point for Class 1 Risk giving him/her a 3.9% risk of 30 day , NH, cardiac arrest. Further cardiac testing indication: is NOT indicated as the patient has less hannah n 3 RCRI clinical risk factors and demonstrates >4 METS baseline activity and is not undergoing vascular surgery. Evidence suggests further testing will not improve outcomes. Cr Nava MD. * Bran Patel MD - 10/27/2020 7:18 AM EDT ORTHOPEDIC TRAUMA SURGERY PROGRESS NOTE Date of Injury: 10/26/2020 Orthopedic injuries sustained: L tibia/fibula Interval Present History: No acute events overnight. Pain is well controlled. Vital Signs: Temp: [36.8 C (98.2 F)-37 C (98.6 F)] 36.8 C (98.2 F) Pulse: [73-100] 97 Resp: [14-20] 16 BP: (106-136)/(57-87) 111/57 SpO2: [91 %-97 %] 96 % O2 Therapy: Oxygen O2 Flow Rate (L/min): [3 L/min] 3 L/min PHYSICAL EXAM General: Patient is awake, alert and oriented. No acute distress. Appears comfor table in bed. Lungs: Unlabored respirations. Left Lower Extremity: Splint clean, dry and intact. EHL/FHL intact Sensation intact to the toes Toes are warm and well perfused Remainder of orthopaedic secondary exam negative. No suspicion for other orthopa edic injuries. Data Reviewed CBC: Lab Results Component Value Date WBC 12.7 (H) 10/26/2020 RBC 3.46 (L) 10/26/2020 HGB 10.7 (L) 10/26/2020 HCT 31.3 (L) 10/26/2020 PLT 171 10/26/2020 BMP: Lab Results Component Value Date NA 139 10/26/2020 K 4.3 10/26/2020 CL 104 10/26/2020 BICARBONATE 22 10/26/2020 GLUCOSE 107 10/26/2020 BUN 9 10/26/2020 CREATININE 1.36 (H) 10/26/2020 BCR 7 10/26/2020 GFRAA 57 (L) 10/26/2020 GFRNONAA 49 (L) 10/26/2020 Coagulation: Lab Results Component Value Date INR 1.06 10/26/2020 Assessment: Deborah Webb is a 40 y.o. female with a left tibia/fibula fracture. Plan: - Plan for OR today - Keep patient NPO for OR today Associated attestation - Manjeet Ervin MD - 10/31/2020 10:48 PM EDT I saw and evaluated the patient. Discussed with the resident and agree with the residents findings and plans as written, along with any supplemental dictated a nd/or attending documentation in the patient record by myself. documented in this encounter H&P Notes * Gabriela Horta MBBS - 10/26/2020 8:52 PM EDT History & Physical Patient Deborah Webb PCP Karl Lott MD Admission Date 10/26/2020 Chief Complaint/Reason for Admission: Deborah is coming in today from home , After history of fall Subjective History of Presenting Illness Ms. Deborah Webb is a 40 y.o. female with a past medical history as mentione d below and most significant for sarcoidosis, history of substance abuse, anxiet y, GERD, hypothyroidism coming in for evaluation of s/p fall. Patient reports sustaining a ground-level fall and was brought in here. On her arrival, patient complained of severe leg pain. Imaging showed left tibial and fibular fracture. Orthopedic was consulted in the ED applied cast and is plansandy morales for surgery. Her labs are significant for white count 12.7, H/H 10.7, TSH 16 .7. She also reports sustaining multiple fractures in the past which also happe halima during ground-level fall when she is only 40. The CODE STATUS was confirmed at the bedside, she wishes to be full code. Active Ambulatory Problems Diagnosis Date Noted No Active Ambulatory Problems Resolved Ambulatory Problems Diagnosis Date Noted No Resolved Ambulatory Problems Past Medical History: Diagnosis Date Anxiety Bronchitis, chronic Depression GERD (gastroesophageal reflux disease) Headache Substance abuse Thyroid disease Social History She is Single. She . She reports that she has been smoking cigarettes. She has b een smoking about 0.50 packs per day. She has never used smokeless tobacco. She reports current drug use. Drugs: Methamphetamines and Amphetamines. No history o n file for alcohol use. Home Medications Medication Sig Benzonatate 200 MG Oral Capsule (TESSALON) Take 200 mg by mouth Three times graham y buPROPion HCl ER (XL) 150 MG Oral Tablet Extended Release 24 Hour (WELLBUTRIN XL ) TAKE THREE TABLETS BY MOUTH ONCE DAILY busPIRone HCl 5 MG Oral Tablet (BUSPAR) TAKE ONE TABLET BY MOUTH TWICE DAILY FOR ANXIETY Gabapentin 800 MG Oral Tablet (NEURONTIN) TAKE ONE TABLET BY MOUTH THREE TIMES A DAY FOR ANXIETY Prazosin HCl 1 MG Oral Capsule (MINIPRESS) Take 1 mg by mouth nightly QUEtiapine Fumarate ER 200 MG Oral Tablet Extended Release 24 Hour (SEROquel XR) Take 200 mg by mouth nightly traZODone HCl 100 MG Oral Tablet (DESYREL) Take 100 mg by mouth nightly Allergies: Patient has no known allergies. ROS: The following systems were reviewed: Constitutional: Negative for chills, diaphoresis, fever, malaise/fatigue and isa ght loss. HENT: Negative for congestion and sore throat. Eyes: Negative for blurred vision. Respiratory: Negative for cough, shortness of breath and wheezing. Cardiovascular: Negative for chest pain, palpitations and leg swelling. Gastrointestinal: Negative for abdominal pain, blood in stool, constipation, pinky rrhea, nausea and vomiting. Genitourinary: Negative for frequency, hematuria and urgency. Musculoskeletal: Complains of left leg pain. Negative for back pain, joint pain and myalgias. Neurological: Negative for dizziness, tingling, tremors, seizures, weakness and headaches. Psychiatric/Behavioral: Negative for depression, memory loss and suicidal ideas. The patient is not nervous/anxious Objective Temp: [36.8 C (98.2 F)] 36.8 C (98.2 F) Pulse: [90-100] 98 Resp: [17-18] 17 BP: (108-111)/(81-87) 111/87 SpO2: [92 %-96 %] 96 % O2 Therapy: Oxygen O2 Flow Rate (L/min): [3 L/min] 3 L/min Physical Exam Constitutional: He is oriented to person, place, and time. No distress. Head: Normocephalic and atraumatic. Eyes: Right eye exhibits no discharge. Left eye exhibits no discharge. Cardiovascular: Normal rate and regular rhythm. Exam reveals no gallop and no fr iction rub. No murmur heard. Pulmonary/Chest: No respiratory distress. He has no wheezes. He has no rhonchi. He has no rales. He exhibits no tenderness. Abdominal: Soft. Bowel sounds are normal. He exhibits no distension. There is no abdominal tenderness. There is no rebound and no guarding. Musculoskeletal: Cast applied on the left lower leg. Neurological: He is alert and oriented to person, place, and time. Vitals reviewed. Laboratory Data (Most Recent over Past 3 Years) Lab 10/26/201911 WBC 12.7* HGB 10.7* HCT 31.3* MCV 90.6 PLT 171 Lab 10/26/201911 NA 139 K 4.3 CL 104 BICARBONATE 22 GLUCOSE 107 BUN 9 CREATININE 1.36* Lab 10/26/201911 NEUTOPHILPCT 89 LYMPHOPCT 6 MONOPCT 5 EOSPCT 0 Invalid input(s): BILDIR Lab 10/26/201911 INR 1.06 XR Ankle 3 or More Views Left Result Date: 10/26/2020 INDICATION: Fall, left lower extremity pain, deformity to the left lower lung. T ECHNIQUE: 2 AP views of the pelvis was obtained. AP and lateral views of the lef t femur were obtained. 5 radiographic views of the left knee were obtained. 4 ra diographic views of the left tibia were obtained. 5 radiographic views of the le ft ankle were obtained. 4 radiographic views of the left foot were obtained. COM PARISON: None. FINDINGS: Pelvis: The pelvic ring appears intact.There is no evid ence of an acute fracture or dislocation.Bilateral hip joints appear unremarkabl e without evidence of joint space narrowing. The lower lumbar spine is unremarka ble. The sacrum is obscured by overlying bowel.Moderate amount of formed stool w ithin the distal colon and rectum.The surrounding soft tissues are unremarkable. FEMUR: No acute fracture or dislocation is seen. The femoral head remains seat ed within the acetabulum. The osseous structures are aligned. The joint spaces a re maintained. No soft tissue swelling is appreciated. No radio opaque foreign b edgar is seen. KNEE: There is no evidence of joint effusion There is no evidence of an acute fracture or dislocation. The medial, lateral and patello-femoral kiet nt compartments are without evidence of narrowing. The alignment is anatomical. The surrounding soft tissues are unremarkable. There are no bony lesions identif ied. There is no evidence of ossific loose bodies identified within the joint sp josee. TIBIA/FIBULA: There is a oblique fracture through the mid diaphysis of the tibia with anterolateral translation and valgus angulation of the distal tibia. Similarly, there is an oblique fracture through the mid diaphysis of the fibula with anterolateral translation valgus angulation of the distal fibula. There is a compound fracture in the neck of the fibula with anterior and superior transla tion of the distal segment.There is normal bone mineralization. There is soft ti ssue edema adjacent to the described fractures.There is no radiopaque foreign titus dy. ANKLE: Evaluation is limited by overlying material. Limited evaluation of th e posterior malleolus. The ankle mortise and talar dome are intact. There is a t ransverse fracture of the medial malleolus. The visualized joint space is well m aintained. The alignment is anatomical. The periarticular soft tissues are unrem arkable. FOOT: Evaluation is limited by overlying material. The interphalangeal, metatarsophalangeal, tarsometatarsal and mid tarsal joints spaces appear unrema rkable.There is no evidence of acute fracture or dislocation.The alignment is an atomical.The surrounding soft tissues are unremarkable. IMPRESSION: 1. Multiple fractures involving the tibia and fibula as described a abran. 2. There is transverse fracture of the medial malleolus. 3. Limited evalu ation of posterior malleolus. 4. Suboptimal visualization of sacrum due to obscu ration by overlying bowel. XR Chest Frontal Only Result Date: 10/26/2020 INDICATION: Fall. Fall from standing. History of sarcoidosis. COMPARISON: CT tho rax and chest radiograph 02/28/2020. TECHNIQUE: A single supine radiograph the c hest was performed with patient in supine position. FINDINGS: The patient is rot ated. bender hand leads overlie the chest. The mediastinum and heart appear prominent. There are linear opacities within the right lung base. There is left retrocardiac opacity. No evidence of pleural effusion or pneumothorax is visuali zed. Chest wall appears intact. No acute fractures visualized. IMPRESSION: 1. Mediastinal and cardiac prominence. These findings may be related to patient positioning and technique. PA and lateral radiographs are recommende d. 2. Bilateral lung opacities likely representing atelectasis versus airspace d isease. CT Lower Extremity without Contrast Left Joint, Ankle Result Date: 10/27/2020 PROCEDURE INFORMATION: Exam: CT Left Lower Extremity Without Contrast, Ankle Exa m date and time: 10/26/2020 11:57 PM Age: 40 years old Clinical indication: Unspe cified fracture of left lower leg, initial encounter for closed fracture; Pain; Other: Medial malleous fracture assicated with tiba fracture TECHNIQUE: Imaging protocol: CT of the Left lower extremity without contrast was performed. Exam fo cused on the ankle. Radiation optimization: All CT scans at this facility use at least one of these dose optimization techniques: automated exposure control; mA and/or kV adjustment per patient size (includes targeted exams where dose is ma tched to clinical indication); or iterative reconstruction. COMPARISON: CR XR AN KLE 3 OR MORE VIEWS [id number] 10/26/2020 6:31 PM FINDINGS: Bones/joints: Interval jass cement of overlying fiberglass cast. Slightly comminuted minimally displaced fra ctures of the mid to distal tibia and fibula. Old well-corticated avulsion fract ure fragment the medial condyle. Soft tissues: Diffuse soft tissue swelling arou nd the visualized distal calf. IMPRESSION: 1. Interval placement of overlying fi berglass cast. 2. Slightly comminuted minimally displaced fractures of the mid t o distal tibia and fibula. 3. Diffuse soft tissue swelling around the visualized distal calf. 4. Old well-corticated avulsion fracture fragment the medial condy le. THIS DOCUMENT HAS BEEN ELECTRONICALLY SIGNED BY MALISSA BUSTAMANTE MD XR Foot 3 or More Views Left Result Date: 10/26/2020 INDICATION: Fall, left lower extremity pain, deformity to the left lower lung. T ECHNIQUE: 2 AP views of the pelvis was obtained. AP and lateral views of the lef t femur were obtained. 5 radiographic views of the left knee were obtained. 4 ra diographic views of the left tibia were obtained. 5 radiographic views of the le ft ankle were obtained. 4 radiographic views of the left foot were obtained. COM PARISON: None. FINDINGS: Pelvis: The pelvic ring appears intact.There is no evid ence of an acute fracture or dislocation.Bilateral hip joints appear unremarkabl e without evidence of joint space narrowing. The lower lumbar spine is unremarka ble. The sacrum is obscured by overlying bowel.Moderate amount of formed stool w ithin the distal colon and rectum.The surrounding soft tissues are unremarkable. FEMUR: No acute fracture or dislocation is seen. The femoral head remains seat ed within the acetabulum. The osseous structures are aligned. The joint spaces a re maintained. No soft tissue swelling is appreciated. No radio opaque foreign b edgar is seen. KNEE: There is no evidence of joint effusion There is no evidence of an acute fracture or dislocation. The medial, lateral and patello-femoral kiet nt compartments are without evidence of narrowing. The alignment is anatomical. The surrounding soft tissues are unremarkable. There are no bony lesions identif ied. There is no evidence of ossific loose bodies identified within the joint sp josee. TIBIA/FIBULA: There is a oblique fracture through the mid diaphysis of the tibia with anterolateral translation and valgus angulation of the distal tibia. Similarly, there is an oblique fracture through the mid diaphysis of the fibula with anterolateral translation valgus angulation of the distal fibula. There is a compound fracture in the neck of the fibula with anterior and superior transla tion of the distal segment.There is normal bone mineralization. There is soft ti ssue edema adjacent to the described fractures.There is no radiopaque foreign titus dy. ANKLE: Evaluation is limited by overlying material. Limited evaluation of th e posterior malleolus. The ankle mortise and talar dome are intact. There is a t ransverse fracture of the medial malleolus. The visualized joint space is well m aintained. The alignment is anatomical. The periarticular soft tissues are unrem arkable. FOOT: Evaluation is limited by overlying material. The interphalangeal, metatarsophalangeal, tarsometatarsal and mid tarsal joints spaces appear unrema rkable.There is no evidence of acute fracture or dislocation.The alignment is an atomical.The surrounding soft tissues are unremarkable. IMPRESSION: 1. Multiple fractures involving the tibia and fibula as described a abran. 2. There is transverse fracture of the medial malleolus. 3. Limited evalu ation of posterior malleolus. 4. Suboptimal visualization of sacrum due to obscu ration by overlying bowel. XR Knee 4 or More Views Left Result Date: 10/26/2020 INDICATION: Fall, left lower extremity pain, deformity to the left lower lung. T ECHNIQUE: 2 AP views of the pelvis was obtained. AP and lateral views of the lef t femur were obtained. 5 radiographic views of the left knee were obtained. 4 ra diographic views of the left tibia were obtained. 5 radiographic views of the le ft ankle were obtained. 4 radiographic views of the left foot were obtained. COM PARISON: None. FINDINGS: Pelvis: The pelvic ring appears intact.There is no evid ence of an acute fracture or dislocation.Bilateral hip joints appear unremarkabl e without evidence of joint space narrowing. The lower lumbar spine is unremarka ble. The sacrum is obscured by overlying bowel.Moderate amount of formed stool w ithin the distal colon and rectum.The surrounding soft tissues are unremarkable. FEMUR: No acute fracture or dislocation is seen. The femoral head remains seat ed within the acetabulum. The osseous structures are aligned. The joint spaces a re maintained. No soft tissue swelling is appreciated. No radio opaque foreign b edgar is seen. KNEE: There is no evidence of joint effusion There is no evidence of an acute fracture or dislocation. The medial, lateral and patello-femoral kiet nt compartments are without evidence of narrowing. The alignment is anatomical. The surrounding soft tissues are unremarkable. There are no bony lesions identif ied. There is no evidence of ossific loose bodies identified within the joint sp josee. TIBIA/FIBULA: There is a oblique fracture through the mid diaphysis of the tibia with anterolateral translation and valgus angulation of the distal tibia. Similarly, there is an oblique fracture through the mid diaphysis of the fibula with anterolateral translation valgus angulation of the distal fibula. There is a compound fracture in the neck of the fibula with anterior and superior transla tion of the distal segment.There is normal bone mineralization. There is soft ti ssue edema adjacent to the described fractures.There is no radiopaque foreign titus dy. ANKLE: Evaluation is limited by overlying material. Limited evaluation of th e posterior malleolus. The ankle mortise and talar dome are intact. There is a t ransverse fracture of the medial malleolus. The visualized joint space is well m aintained. The alignment is anatomical. The periarticular soft tissues are unrem arkable. FOOT: Evaluation is limited by overlying material. The interphalangeal, metatarsophalangeal, tarsometatarsal and mid tarsal joints spaces appear unrema rkable.There is no evidence of acute fracture or dislocation.The alignment is an atomical.The surrounding soft tissues are unremarkable. IMPRESSION: 1. Multiple fractures involving the tibia and fibula as described a abran. 2. There is transverse fracture of the medial malleolus. 3. Limited evalu ation of posterior malleolus. 4. Suboptimal visualization of sacrum due to obscu ration by overlying bowel. XR Pelvis 1-2 Views Result Date: 10/26/2020 INDICATION: Fall, left lower extremity pain, deformity to the left lower lung. T ECHNIQUE: 2 AP views of the pelvis was obtained. AP and lateral views of the lef t femur were obtained. 5 radiographic views of the left knee were obtained. 4 ra diographic views of the left tibia were obtained. 5 radiographic views of the le ft ankle were obtained. 4 radiographic views of the left foot were obtained. COM PARISON: None. FINDINGS: Pelvis: The pelvic ring appears intact.There is no evid ence of an acute fracture or dislocation.Bilateral hip joints appear unremarkabl e without evidence of joint space narrowing. The lower lumbar spine is unremarka ble. The sacrum is obscured by overlying bowel.Moderate amount of formed stool w ithin the distal colon and rectum.The surrounding soft tissues are unremarkable. FEMUR: No acute fracture or dislocation is seen. The femoral head remains seat ed within the acetabulum. The osseous structures are aligned. The joint spaces a re maintained. No soft tissue swelling is appreciated. No radio opaque foreign b edgar is seen. KNEE: There is no evidence of joint effusion There is no evidence of an acute fracture or dislocation. The medial, lateral and patello-femoral kiet nt compartments are without evidence of narrowing. The alignment is anatomical. The surrounding soft tissues are unremarkable. There are no bony lesions identif ied. There is no evidence of ossific loose bodies identified within the joint sp josee. TIBIA/FIBULA: There is a oblique fracture through the mid diaphysis of the tibia with anterolateral translation and valgus angulation of the distal tibia. Similarly, there is an oblique fracture through the mid diaphysis of the fibula with anterolateral translation valgus angulation of the distal fibula. There is a compound fracture in the neck of the fibula with anterior and superior transla tion of the distal segment.There is normal bone mineralization. There is soft ti ssue edema adjacent to the described fractures.There is no radiopaque foreign titus dy. ANKLE: Evaluation is limited by overlying material. Limited evaluation of th e posterior malleolus. The ankle mortise and talar dome are intact. There is a t ransverse fracture of the medial malleolus. The visualized joint space is well m aintained. The alignment is anatomical. The periarticular soft tissues are unrem arkable. FOOT: Evaluation is limited by overlying material. The interphalangeal, metatarsophalangeal, tarsometatarsal and mid tarsal joints spaces appear unrema rkable.There is no evidence of acute fracture or dislocation.The alignment is an atomical.The surrounding soft tissues are unremarkable. IMPRESSION: 1. Multiple fractures involving the tibia and fibula as described a abran. 2. There is transverse fracture of the medial malleolus. 3. Limited evalu ation of posterior malleolus. 4. Suboptimal visualization of sacrum due to obscu ration by overlying bowel. XR Tibia Left Result Date: 10/26/2020 PROCEDURE INFORMATION: Exam: XR Left Tibia and Fibula Exam date and time: 8:08 PM Age: 40 years old Clinical indication: Other: Post splint TECHNIQUE: Imaging protocol: XR Left tibia and fibula. Views: 2 views. COMPARISON: CR XR T IBIA [id number] 10/26/2020 6:31 PM FINDINGS: Bones/joints: There are displaced fractur es of the mid to distal shafts of the tibia and fibula. Displacement is about 1 shaft width. There is also a mildly displaced fracture of proximal fibular shaft . Soft tissues: Anterior swelling. IMPRESSION: No significant change in the dis placed tib fib shaft fractures post cast. THIS DOCUMENT HAS BEEN ELECTRONICALLY SIGNED BY MANUELITO REYES MD XR Tibia Left Result Date: 10/26/2020 INDICATION: Fall, left lower extremity pain, deformity to the left lower lung. T ECHNIQUE: 2 AP views of the pelvis was obtained. AP and lateral views of the lef t femur were obtained. 5 radiographic views of the left knee were obtained. 4 ra diographic views of the left tibia were obtained. 5 radiographic views of the le ft ankle were obtained. 4 radiographic views of the left foot were obtained. COM PARISON: None. FINDINGS: Pelvis: The pelvic ring appears intact.There is no evid ence of an acute fracture or dislocation.Bilateral hip joints appear unremarkabl e without evidence of joint space narrowing. The lower lumbar spine is unremarka ble. The sacrum is obscured by overlying bowel.Moderate amount of formed stool w ithin the distal colon and rectum.The surrounding soft tissues are unremarkable. FEMUR: No acute fracture or dislocation is seen. The femoral head remains seat ed within the acetabulum. The osseous structures are aligned. The joint spaces a re maintained. No soft tissue swelling is appreciated. No radio opaque foreign b edgar is seen. KNEE: There is no evidence of joint effusion There is no evidence of an acute fracture or dislocation. The medial, lateral and patello-femoral kiet nt compartments are without evidence of narrowing. The alignment is anatomical. The surrounding soft tissues are unremarkable. There are no bony lesions identif ied. There is no evidence of ossific loose bodies identified within the joint sp josee. TIBIA/FIBULA: There is a oblique fracture through the mid diaphysis of the tibia with anterolateral translation and valgus angulation of the distal tibia. Similarly, there is an oblique fracture through the mid diaphysis of the fibula with anterolateral translation valgus angulation of the distal fibula. There is a compound fracture in the neck of the fibula with anterior and superior transla tion of the distal segment.There is normal bone mineralization. There is soft ti ssue edema adjacent to the described fractures.There is no radiopaque foreign titsu dy. ANKLE: Evaluation is limited by overlying material. Limited evaluation of th e posterior malleolus. The ankle mortise and talar dome are intact. There is a t ransverse fracture of the medial malleolus. The visualized joint space is well m aintained. The alignment is anatomical. The periarticular soft tissues are unrem arkable. FOOT: Evaluation is limited by overlying material. The interphalangeal, metatarsophalangeal, tarsometatarsal and mid tarsal joints spaces appear unrema rkable.There is no evidence of acute fracture or dislocation.The alignment is an atomical.The surrounding soft tissues are unremarkable. IMPRESSION: 1. Multiple fractures involving the tibia and fibula as described a abran. 2. There is transverse fracture of the medial malleolus. 3. Limited evalu ation of posterior malleolus. 4. Suboptimal visualization of sacrum due to obscu ration by overlying bowel. XR Femur, Minimum of 2 Views Left Result Date: 10/26/2020 INDICATION: Fall, left lower extremity pain, deformity to the left lower lung. T ECHNIQUE: 2 AP views of the pelvis was obtained. AP and lateral views of the lef t femur were obtained. 5 radiographic views of the left knee were obtained. 4 ra diographic views of the left tibia were obtained. 5 radiographic views of the le ft ankle were obtained. 4 radiographic views of the left foot were obtained. COM PARISON: None. FINDINGS: Pelvis: The pelvic ring appears intact.There is no evid ence of an acute fracture or dislocation.Bilateral hip joints appear unremarkabl e without evidence of joint space narrowing. The lower lumbar spine is unremarka ble. The sacrum is obscured by overlying bowel.Moderate amount of formed stool w ithin the distal colon and rectum.The surrounding soft tissues are unremarkable. FEMUR: No acute fracture or dislocation is seen. The femoral head remains seat ed within the acetabulum. The osseous structures are aligned. The joint spaces a re maintained. No soft tissue swelling is appreciated. No radio opaque foreign b edgar is seen. KNEE: There is no evidence of joint effusion There is no evidence of an acute fracture or dislocation. The medial, lateral and patello-femoral kiet nt compartments are without evidence of narrowing. The alignment is anatomical. The surrounding soft tissues are unremarkable. There are no bony lesions identif ied. There is no evidence of ossific loose bodies identified within the joint sp josee. TIBIA/FIBULA: There is a oblique fracture through the mid diaphysis of the tibia with anterolateral translation and valgus angulation of the distal tibia. Similarly, there is an oblique fracture through the mid diaphysis of the fibula with anterolateral translation valgus angulation of the distal fibula. There is a compound fracture in the neck of the fibula with anterior and superior transla tion of the distal segment.There is normal bone mineralization. There is soft ti ssue edema adjacent to the described fractures.There is no radiopaque foreign titus dy. ANKLE: Evaluation is limited by overlying material. Limited evaluation of th e posterior malleolus. The ankle mortise and talar dome are intact. There is a t ransverse fracture of the medial malleolus. The visualized joint space is well m aintained. The alignment is anatomical. The periarticular soft tissues are unrem arkable. FOOT: Evaluation is limited by overlying material. The interphalangeal, metatarsophalangeal, tarsometatarsal and mid tarsal joints spaces appear unrema rkable.There is no evidence of acute fracture or dislocation.The alignment is an atomical.The surrounding soft tissues are unremarkable. IMPRESSION: 1. Multiple fractures involving the tibia and fibula as described a abran. 2. There is transverse fracture of the medial malleolus. 3. Limited evalu ation of posterior malleolus. 4. Suboptimal visualization of sacrum due to obscu ration by overlying bowel. Assessment & Plan Ms. Deborah Webb is a 40 y.o. female with a past medical history as mentione d below and most significant for sarcoidosis, history of substance abuse, anxiet y, GERD, hypothyroidism coming in for evaluation of s/p fall. #Left tibial/fibular fracture -pain management with morphine 2 mg IV every 4 -Imaging shows left tibial and fibula fracture -N.p.o. overnight -DVT prophylaxis -Ortho was consulted, -Plan for or today #Preop evaluation Cardiovascular Aylin-Operative Risk Stratification Based upon evidence and ACC/ACH clinical guidelines Major Active Cardiac Conditions Present? (unstable coronary syndromes, decompen sated CHF, unstable heart rhythm, severe heart valve disease). NO Revised Cardiac Risk Index (RCRI) Criteria Score Total RCRI Score: 0 RCRI Risk Calculation: Per RCRI guidelines, the patient has a 3.9% chance of pe ri-op cardiac complications including NH, VF, cardiac arrest, AV block, or heart failure. Patient only 0 point for Class 1 Risk giving him/her a 3.9% risk of 30 day , NH, cardiac arrest. Further cardiac testing indication: is NOT indicated as the patient has less hannah n 3 RCRI clinical risk factors and demonstrates >4 METS baseline activity and is not undergoing vascular surgery. Evidence suggests further testing will not improve outcomes. Patient is a 3.9-risk for a low risk procedure. DVT Prophylaxis: SCD's while in bed GI Prophylaxis: Not Indicated Disposition: Will admit to inpatient status as she meets the clinical criteria a nd is expected to stay for >2 midnights based on the current severity of the disease Code Status: Full Code The patient was discussed with Dr. Gilmore who agrees with the assessment and pl an as noted above. Signature: Gabriela Horta MBBS Date/Time: October 26, 2020 8:52 PM Associated attestation - Shaggy Gilmore MD - 10/27/2020 8:17 PM EDT I saw and evaluated the patient 10/26/2020. Discussed with the resident and sumanth love with the residents findings and plans as written, along with any supplemental dictated and/or attending documentation in the patient record by myself. Low risk for procedure, may proceed without further testing. Frequent falls: Patient report frequent falls, denies any preceding symptoms but reports they usually occur right after standing. Possibly 2/2 multiple meds ca using orthostatic hypotension. Once she is able to stand post-op, would benefit from checking orthostatic vitals. Hypothyroidism: Elevated TSH, low free T4, will increase levothyroxine dose to 1 75mcg (from 150mcg) daily in AM. Anxiety/depression: Continue wellbutrin, buspar, seroquel and trazoadone Sarcoidosis: Patient reports hx of sarcoid but has not been taking steroids as p rescribed as they caused her to get agitated. Would benefit from referral to pul m OP to re-establish care for this. Would recommend tele/pulse ox monitoring in post-op setting. Shaggy Gilmore MD documented in this encounter Procedure Notes * Yeyo Akers MD - 10/29/2020 1:44 PM EDT Associated Order(s): Peripheral Nerve Block Deborah Webb is a 40 y.o. female patient. 1. Leg fracture, left, closed, initial encounter Past Medical History: Diagnosis Date Anxiety Bronchitis, chronic Depression GERD (gastroesophageal reflux disease) Headache Substance abuse Thyroid disease Blood pressure 141/84, pulse 84, temperature 37 C (98.6 F), temperature source Oral, resp. rate 16, height 1.6 m (5' 3"), weight 113.4 kg (250 lb), SpO2 94 %. Peripheral Nerve Block Patient Location: Block Room Start Time: 10/29/2020 1:12 PM End Time: 10/29/2020 1:32 PM Reason for Block: post-op pain management Charge: Ultrasound Guidance, Other Peripheral Nerve /Branch Injection and Sciati c Nerve Continuous Staff: Anesthesiologist: Aixa Costa MD Resident/STOCK CHECKERER: Yeyo Akers MD Performed By: Resident/STOCK CHECKERER Checklist: patient identified, IV checked, site marked, risks and benefits discu ssed, surgical consent, monitors and equipment checked, pre-op evaluation, timeo ut performed Peripheral Nerve Block: Patient Position: Supine Patient Status: Sedated Prep: chloraprep, Monitoring: Blood Pressure Monitoring, Housekeeping Staff and Continuous Pulse Ox imetry Block Type: Saphenous and Popliteal Laterality: Left Injection Technique: Catheter Block Technique: ultrasound guided Local anesthetic injected: Ropivacaine Strength: 0.25 % Dose: 40 ml Needle: Needle Type: Echogenic Needle Gauge: 18 G Needle Length: 4 in Needle Insertion Depth: 6 cm Catheter Type: Open End Catheter Size: 20 G Catheter at Skin Depth: 2.5 cm Secured: Tegaderm Assessment: Injection Assessment: Negative Aspiration for Heme, No Paresthesia on Injecti on, Incremental Injection and Local Visualized Surrounding Nerve on Ultrasound Patient Condition: Patient Tolerated Procedure Well and Vital Signs Stable Thro ughout Notes: Sedated with 2 mg IV versed. Popliteal catheter 3.5 cm from skin, saphenous 2 .5 cm form skin. 25 ml ropi (0.25%) given via popliteal, 10 ml given via sapheno us Adriana Akersin 10/29/2020 Associated attestation - Aixa Costa MD - 10/29/2020 4:15 PM EDT I was present for the entire procedure and I agree with the resident's note. * David Velasco MD - 10/28/2020 2:28 PM EDT Associated Order(s): Peripheral Nerve Block Deborah Webb is a 40 y.o. female patient. 1. Leg fracture, left, closed, initial encounter Past Medical History: Diagnosis Date Anxiety Bronchitis, chronic Depression GERD (gastroesophageal reflux disease) Headache Substance abuse Thyroid disease Blood pressure 107/76, pulse 62, temperature 36.4 C (97.5 F), temperatur e source Oral, resp. rate (!) 20, height 1.6 m (5' 3"), weight 113.4 kg (250 lb) , SpO2 94 %. Peripheral Nerve Block Patient Location: PACU Start Time: 10/28/2020 2:00 PM End Time: 10/28/2020 2:28 PM Reason for Block: post-op pain management, procedure for pain Charge: Femoral Nerve Single Staff: Anesthesiologist: Al Olivares MD Resident/STOCK CHECKERER: David Velasco MD Performed By: Resident/STOCK CHECKERER Checklist: patient identified, IV checked, site marked, risks and benefits discu ssed, surgical consent, monitors and equipment checked, pre-op evaluation, timeo ut performed Peripheral Nerve Block: Patient Position: Supine Patient Status: Awake Prep: chloraprep, Monitoring: Blood Pressure Monitoring, Housekeeping Staff, Continuous Pulse Oxime try and Heart Rate Block Type Other: Adductor canal block Laterality: Left Injection Technique: Single Shot Block Technique: ultrasound guided Local anesthetic injected: Ropivacaine Strength: 0.5 % Dose: 20 ml Needle: Needle Type: Echogenic Catheter Type: Open End Test Dose: Negative Test Dose Volume: 3 cc's Secured: Tegaderm Assessment: Injection Assessment: Incremental Injection Paresthesia Pain: None Patient Condition: Patient Tolerated Procedure Well and Vital Signs Stable Thro ughout Notes: Needle placed and initially no heme aspirated. Following placement of cathet er heme was aspirated and patient endorsed metallic taste in mouth. Catheter rem gayle, patient was agreeable to trying again later possibly, though also noted so me numbness in her leg with pain relief. David Velasco 10/28/2020 Associated attestation - Carlos Manuel Saunders MD - 11/05/2020 11:07 AM EDT I agree with the resident note and plan. documented in this encounter Consult Notes * Oedll Jc MBBS - 11/02/2020 6:15 PM EDT Associated Order(s): [place] [address] PATIENT NAME: Deborah Webb, DATE OF : 1980 . Primary Care Physician: Karl Lott MD General Neurology Consult Note Reason for consult ?Neurological Cause for fall History of presenting illness Deborah Webb is a 40 y.o. female with a history of sarcoidosis, hypothyroid ism, chronic opioid dependence, depression for whom neurology was consulted for in the setting of multiple falls. Patient states that over the last year, she has had ,multiple falls. Patient is a poor historian but she states that over the last year she has had multiple epi sodes of falling while standing up. She states that when she gets up from bed an d stands associated with coughing - 'her legs tend to give out' and she falls. These episodes are sometimes associated with lightheadedness. She denies any los s of consiousness/shaking/incontinence. She denies any gait imbalance outside of these episodes and denies any difficulty walking. She denies any weakness and n umbness in her hands and legs. With her latest fall where she reports a similar sequence of events - getting out of bed, associated with violent coughing(she h as a chronic cough as a result of sarcoidosis and chronic smoking), some difficu lty breathing following which her legs gave out and she fell. She was admitted t o the hospital as a result of the resultant fracture. Psych was consulted for me dication reconciliation given her multiple medications and they recommended a ne urology consult to look for reasons for fall. Notably, patient's orthostatic vitals positive with cough as listed below(Copied forward from note by Jammie Toney RN) Orthostatic BPs completed by this RN. This RN requested patient to cough upon si tting and after standing for three minutes. Vitals as follows: 11/02/20 1834 11/02/20 1836 11/02/20 1839 Vitals Pulse 84 97 (!) 101 Heart Rate Source Automatic Automatic Automatic BP 115/66 113/80 130/81 BP Method Automatic Automatic Automatic MAP (Monitor) 82 91 97 Patient Position Lying Sitting Standing 11/02/20 1841 Vitals Pulse (!) 103 Heart Rate Source Automatic BP 94/75 BP Method Automatic MAP (Monitor) 81 Patient Position Standing RN. Pt Past medical history Past Medical History: Diagnosis Date Anxiety Bronchitis, chronic Depression GERD (gastroesophageal reflux disease) Headache Substance abuse Thyroid disease Past surgical history S/p ORIF on 10/28/20 Social history Alcohol - history of alcohol abuse yes Tobacco - Yes 1/2 ppd Other drugs - On Methadone Family history No family history of seizures Allergies No Known Allergies Medications Current Facility-Administered Medications Medication Dose Route Frequency Provider Last Rate Last Admin acetaminophen (TYLENOL) tablet 650 mg 650 mg Oral Once Bran Patel MD acetaminophen (TYLENOL) tablet 650 mg 650 mg Oral Q4H PRN Bran magaña MD 650 mg at 11/02/20 1254 albuterol (PROVENTIL HFA) inhaler 2 puff 2 puff Inhalation Q6H PRN Julisa Zamorano NP buPROPion (WELLBUTRIN XL) 24 hr tablet 450 mg 450 mg Oral Daily Bran Patel MD 450 mg at 11/02/20 0800 busPIRone (BUSPAR) tablet 10 mg 10 mg Oral BID Shaggy Gilmore MD 10 mg at 11/02/20 0800 enoxaparin sodium (LOVENOX) injection 40 mg 40 mg Subcutaneous Daily Mat feliz Nava MD 40 mg at 11/02/20 0800 levothyroxine (SYNTHROID) tablet 175 mcg 175 mcg Oral Daily Bran salazar MD 175 mcg at 11/02/20 0502 methadone (DOLOPHINE) 10 MG/ML oral solution concentrated 145 mg 145 mg Oral Daily Emely Ryan [facility] 145 mg at 11/02/20 0801 oxyCODONE (ROXICODONE) immediate release tablet 5 mg 5 mg Oral Q4H PRN I arvind Gilmore MD 5 mg at 11/02/20 1755 QUEtiapine (SEROQUEL XR) extended-release tablet 200 mg 200 mg Oral Nigh tly Bran Patel MD 200 mg at 11/01/20 2044 ropivacaine (NAROPIN) PNB 0.2 % CADD Infiltration Continuous Ravi deluca MD 6 mL/hr at 11/02/20 0459 500 mg at 11/02/20 0459 ropivacaine (NAROPIN) PNB 0.2 % CADD Infiltration Continuous Ravi deluca MD 500 mg at 11/01/20 1926 trazodone (DESYREL) tablet 50 mg 50 mg Oral Nightly Julisa Zamorano NP Review of Systems As mentioned above in the HPI OBJECTIVE: Visit Vitals BP 92/72 Pulse 83 Temp 37.3 C (99.1 F) Resp 16 Ht 1.6 m (5' 3") Wt 113.4 kg (250 lb) SpO2 (!) 87% BMI 44.29 kg/m General Examination: Constitutional: Vitals as above General: No apparent distress, well developed and well nourished. Psychiatric: Cooperative, appropriate affect Eyes: Sclera non-icteric. No conjunctival injection ENT: Neck supple, moist mucus membranes Lungs: No respiratory distress on room air Msk: Non-tender extremities.Left Leg in dressing. Neurological Examination: Mental Status: Alert and oriented to person, place, month, and year. Language: Speech clear and spontaneous. No paraphasias noted. Able to follow com plex commands crossing midline. Cranial Nerves: II: visual hess Full to confrontation II: pupils Equal, reactive to light III,IV,: extraocular muscles EOMI, no nystagmus V: facial light touch sensation Normal to light touch VII: facial muscle function - upper Normal VII: facial muscle function - ORB brenda No facial asymmetry at rest. Facial movem ents symmetrical. XI: Shoulder shrug strength normal bilaterally. XII: tongue movements and strength Tongue protrusion was midline, no fasciculati ons, atrophy with good tongue movements. Motor Examination: Tone- normal Bulk - normal Abnormal movements - not observed Fasciculations - absent Deltoid Biceps Triceps WE WF IO APB Right 5 5 5 5 5 5 5 Left 5 5 5 5 5 5 5 IP Quad Ham TA Gastroc Right 4 4 4 4 4 Left 5 5 5 5 5 RLL exam limited by pain, fracture Coordination: Patient able to perform normal [id number] appropriately. Heel to hastings intact bilaterally. Sensory: Sensation intact to light touch throughout extremities. Lab results: panel Recent Labs Lab 10/31/20 0403 NA 134* K 3.2* CL 99 BICARBONATE 23 GLUCOSE 91 BUN 8 CREATININE 1.13* BCR 7 GFRAA 71 GFRNONAA 61 Recent Labs Lab 10/31/20 0403 HCT 25.8* HGB 8.8* MCH 30.7 MCHC 34.2 MCV 89.5 PLT 178 RDW 16.7* WBC 4.8 Recent Labs Lab 10/26/20 1912 INR 1.06 Lab Results Component Value Date TSH 16.720 (H) 10/26/2020 No results found for: ALT, AST, GGT, ALKPHOS, TBILI Imaging: Assessment Deborah Webb is a 40 y.o.female who has presented to the hospital in the set ting of a fall causing a tibula-fibular fracture. Neurology consulted in the set ting of multiple falls. Patient attests to falling in the setting of standing up and coughing. Orthostatic vitals positive with coughing. ?Cough Syncope Recommendations -Obtain CT Head -Telemetry monitoring Neurology consult service will continue to follow. Patient discussed with attending neurologist, Dr. iMkal Moreno, and the plan w as formulated together. Odell Jc PGY 3 Neurology Associated attestation - Mikal Moreno MD - 11/03/2020 10:35 AM EDT I saw and examined the patient, I reviewed and discussed the history, exam findi ngs, assessment and plan with the neurology resident and agree with the diagnosi s and recommendations as documented by the resident. Deborah Webb is a 40 yo patient with psychiatric history on neuroleptics, tr azodone, and until recently on Prazosin , history of sarcoidodid who was seen fo r history of recurrent falls. She is not a very good historian but it appears th at most of the falls occurred soon after standing up and many are also preceded by a cough. She reports no loss of consciousness with these episodes and she den ies any issues with urination, bowel movements, thermoregulatory problems. She also denies history of palpitations or SOB. She is in the hospital now because fracture of left tibia after a fall. The orthostatic vital signs were obtained yesterday. It is documented a 40 mmHg of systolic BP when coughing and no change of heart rate from standing at 3 min to coughing and standing. However the hear rate went up from 84 to 101 when jose ged position from sitting to standing. There was no tremor and no myoclonus on examination and there is no ataxia and n o focal weakness. There are no skin changes Gait was not tested due to recent fracture s/p surgery. She has moderate tardive dyskinesia and mild akathisia but she is not bothered b y these movements. Assessment Multiple falls associated with orthostatic changes and coughing. Coughing syncop e (near syncope) and orthostatic hypotension (medications, dehydration) are like ly causes for the falls. The dose of trazodone was reduced and Prazosin was discontinued. Hopefully these changes will reduce the risk of falling. Recommendations Head CT-pending Consider splitting the dose of Seroquel 200 mg at bedtime to 100 mg twice daily. If the falls persist, an autonomic study with Dr. Sesay as outpatient may be worth it. * Alf Bojorquez DO - 11/02/2020 4:47 PM EDT Associated Order(s): IP CONSULT TO PSYCHIATRY ADULT PSYCHIATRY CONSULTATION NOTE Patient Deborah Webb 1980 Date of Admission 10/26/2020 PSYCHIATRIC EVALUATION SOURCES OF INFORMATION: patient REASON FOR CONSULT: Medication reconcilliaton CHIEF COMPLAINT: "I get off balance" HISTORY OF PRESENT ILLNESS: The patient is a 40 year old female with a PMH significant for sarcoidosis, poly substance use (alcohol, hydrocodone, oxycodone/paracetamol, alprazolam, amphetam ine/dextroamphetamine), anxiety, GERD, hypothyroidism who presented to the [facility] for a broken foot 05/08 fall. The patient has been experiencing falls for the past 2 years. The patient is unaware of any changes that directly preceded the start of her falls. Her only medication change was that buspirone was started. She reports that the frequency changes, sometimes she falls a couple times a m onth and sometimes a couple times a week. The patient denies lightheadedness, d izziness, confusion, headaches, palpations, visual disturbances, or loss of cons ciousness along with her falls. She reports she has no symptoms and no warning prior to a fall. The patient reports predominantly falling to her left side. S he previously injured her left ankle, and has now broken her left foot. The patient developed an addiction to hydrocodone and oxycodone/paracetamol whic h she was getting from a partner. She was never prescribed them, she was taking them to produce a euphoric mood. Her drug addiction led to her [facility] obtaining full custody. She is currently receiving methadone treatment. The patient will require inpatient rehab due to her broken foot but she will not be able to receive methadone at such a facility. She reports that she does not li ke the taste of buprenorphine or the way it makes her feel and so she is not lidia ling to switch to it. The patient reports a desire to wean herself off methadon e but frequently voiced concern that we would reduce her dose without consulting her. The patient reports that her moods are "ok" today. She reports that she is slee ping well, enjoys reading and going to yazdanism, has a normal appetite, is able to concentrate, and denies suicidal ideation. She reports low energy and feelings of guilt due to how her drug use impacted her family. She reports that she fee ls much less guilty now than in the past. In the past she felt suicidal ideatio n and had a plan to walk into a river and drown herself. She never attempted murillo icide due to thoughts about how her would hurt her daughters. She has eng aged in superficial cutting of her wrists. COLLATERAL CONTACTS: Patient refused to allow psychiatry to speak to her significant other. PSYCHIATRIC REVIEW OF SYSTEMS: Psychiatric Review of Systems: Psychosis: Patient does not have visual hallucinations or auditory hallucination s. Depression: Patient has Depression, guilt/feelings of worthlessness and decrease d energy. Patient does not exhibit psychomotor retardation or psychomotor agitat ion. Patient does not have depressed mood, decreased sleep, anhedonia, decreased concentration, decreased appetite, suicidal ideation or homicidal ideation. Post Traumatic Stress Disorder: Patient has PTSD. Patient reports a history of t rauma, avoids stimuli associated with trauma and re-experiences trauma through n ightmares or flashbacks. Patient exhibits hypervigilance/increased arousal. PAST PSYCHIATRIC HISTORY: Past diagnoses: MDD, LEIF, PTSD, ADHD Past Treatment: inpatient and outpatient Therapist: "Kalpana" at [facility] Psychiatrist/optical engineering manager: "Yasmin" an TOOL TECHNICIAN at [facility] in [place] Past Medication Trials and Effects: Previously prescribed alprazolam and amphet amine/dextroamphetamine, she stopped as she felt she had developed addiction to them Other Treatment Team Members: Denies ED/CPEP Visits: multiple Inpatient or residential admission: multiple Self-harm: Superficial cutting of her wrist Violence/aggression: Denies Suicide Attempts: Denies Access to firearms: Denies SUBSTANCE USE HISTORY: Alcohol: History of alcoholism, currently does not drink any alcohol Drugs: History of addiction to hydrocodone, oxycodone/paracetamol, alprazolam, and amphetamine/dextroamphetamine; denies ever using "street drugs" Nicotine: Inhales 10 cigarettes per day (1/2 pack), has not been using any michael ej replacement during this hospitalization and reports that her cravings have resolved, she reports she will attempt to not use nicotine following discharge Vaping/Juuling or other e-cigarettes: Denies Past Substance use disorder treatment: Yes, currently receives addiction treatm ent through [facility], treated with methadone CURRENT MEDICATIONS: Bupropion 450 mg daily Buspirone 10 mg BID Gabapentin 800 mg TID Methadone 145 mg daily Prazosin 1 mg nightly Quetiapine 200 mg nightly Trazodone 100 mg nightly PAST MEDICAL HISTORY: Sarcoidosis Hypothyroidism GERD ALLERGIES: Patient has no known allergies. FAMILY HISTORY: Mental illness: The patient was raised in foster care so family history could n ot be obtained Substance use disorder: The patient was raised in foster care so family history could not be obtained Suicide attempts: The patient was raised in foster care so family history could not be obtained SOCIAL HISTORY: Living Situation: Lives on the 3rd floor on a building without an elevator Education: Highest level completed: Not addressed IQ/Learning disability/Special accommodations needed: Not addressed Significant Other: Boyfriend, Guillermo Children: 3 daughters Trauma: Yes, previous diagnosis of PTSD, specifics not addressed Abuse: Not addressed Bullying: Not addressed Gender identity and sexual orientation: Not addressed Supports: Boyfriend, reports she "feels alone" Legal Issues: Not addressed Experience: Not addressed Other: Not applicable Developmental History: In Utero Exposure: Not addressed Delivery: Not addressed 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 Illnesses/Surgeries/Hospitalizations: Not addressed Milestones: Not addressed PT/OT/Speech: Not addressed LABORATORY AND DIAGNOSTIC TEST RESULTS: Results for orders placed or performed during the hospital encounter of 10/26/20 (from the past 72 hour(s)) Basic Metabolic Panel Collection Time: 10/31/20 4:03 AM Result Value Ref Range Bicarbonate 23 22 - 29 mmol/L Chloride 99 98 - 107 mmol/L Creatinine 1.13 (H) 0.50 - 0.90 mg/dL Glucose 91 70 - 140 mg/dL Potassium 3.2 (L) 3.4 - 5.1 mmol/L Sodium 134 (L) 136 - 145 mmol/L Blood Urea Nitrogen 8 6 - 20 mg/dL Anion Gap 12 8 - 15 mmol/L Osmolality, Harini 277 275.0 - 300.0 mosm/kg BUN/Cre Ratio 7 Calcium 8.9 8.6 - 10.0 mg/dL GFR Non 2008 CDK-EPI 61 >60 mL/min/1.73m2 GFR 2008 CKD-EPI 71 >60 mL/min/1.73m2 CBC Collection Time: 10/31/20 4:03 AM Result Value Ref Range White Blood Cell 4.8 4.00 - 10.00 10*3/uL Red Blood Cell 2.88 (L) 4.10 - 5.30 10*6/uL Hemoglobin 8.8 (L) 11.5 - 15.5 g/dL Hematocrit 25.8 (L) 36.0 - 45.0 % Mean Cell Volume 89.5 80.0 - 96.0 fL Mean Cell Hemoglobin 30.7 27.0 - 33.0 pg Mean Cell Hgb Conc 34.2 32 - 36 g/dL Red Cell Dist Width 16.7 (H) 11.5 - 14.5 % Platelet Count 178 150 - 400 10*3/uL Drugs Of Abuse, Urine Collection Time: 11/02/20 1:04 PM Result Value Ref Range Amphetamine Negative Negative Cutoff 1000 Benzodiazepine Negative Negative Cutoff 300 Cannabinoids Urine Negative Negative Cutoff 50 Cocaine Negative Negative Cutoff 300 Methadone (Dolophine) Positive (A) Negative Cutoff 300 Opiates Negative Negative Cutoff 300 Oxycodone Positive (A) Negative Cutoff 100 Fentanyl Negative Negative Cutoff 1 Drug Interpretation (NOTE) VITAL SIGNS: Vitals: 11/02/20 0042 11/02/20 0510 11/02/20 0811 11/02/20 1155 BP: 122/74 119/75 117/81 92/72 Pulse: 96 89 96 83 Resp: 16 14 16 16 Temp: 37.9 C (100.2 F) 37 C (98.6 F) 37 C (98.6 F) 37.3 C (99.1 F) SpO2: 94% 92% (!) 87% MENTAL STATUS EXAM: General Appearance (nutrition, body habitus, grooming): The patient is lying do wn in her chair dressed in a hospital gown. The patient is morbidly obese. She has black hair and is appropriately dressed. Level of consciousness: Awake and alert Orientation: Oriented to person, place, and time Behavior/Attitude: The patient is cooperative and pleasant. Gait/Motor Behavior/Muscle Tone: Gait not observed. No psychomotor retardation or agitation present. Speech: Speech is articulate and coherent. Normal speed and volume. Thought Process: Linear and goal oriented. Associations (normal/circumstantial/tangential/loose/flight of ideas): Normal Abnormal/Psychotic Thoughts (delusions, preoccupation with violence, SI/HI): De nies SI and HI Perceptual Disturbances (hallucinations): Denies AH and VH Mood: "I feel ok" Affect: Patient's affect was euthymic and corresponded with her reported mood. At times she became tearful while discussing painful memories, it was appropria te to the conversation. Full range of affect. Cognition: Grossly intact Insight and Judgement: Good/Good [place] SUICIDE SEVERITY RATING SCALE (C-SSRS): INPATIENT SUICIDE SEVERITY RATING SCALE (based on the C-SSRS) Evaluation of Suicide Severity within the last 48 hrs 1) Wish to be : Person endorses thoughts about a wish to be or not alive anymore, or wish t o fall asleep and not wake up? Have you wished you were or wished you could go to sleep and not wake up? No 2) Suicidal Thoughts: General non-specific thoughts of wanting to end one's life/ by suicide, "I've thought about killing myself" without general thoughts of ways to kill oneself/ associated methods, intent, or plan. Have you actually had any thoughts of killing yourself? No 3) Suicidal Thoughts with Method (without Specific Plan or Intent to Act): Person endorses thoughts of suicide and has thought of at least one method durin g the assessment period. This is different than a specific plan with time, place or method details worked out. "I thought about taking an overdose but I never m jamarcus a specific plan as to when where or how I would actually do it...and I would never go through with it." Have you been thinking about how you might do this? No 4) Suicidal Intent (without Specific Plan): Active suicidal thoughts of killing oneself and patient reports having some inte nt to act on such thoughts, as opposed to "I have the thoughts but I definitely will not do anything about them." Have you had these thoughts and had some intention of acting on them? No 5) Suicide Intent with Specific Plan: Thoughts of killing oneself with details of plan fully or partially worked out a nd person has some intent to carry it out. Have you started to work out or worked out the details of how to kill yourself? Do you intend to carry out this plan? No 6) Suicidal Behavior Question: Have you ever done anything, started to do anything, or prepared to do anything to end your life? Examples: Collected pills, obtained a gun, gave away valuables, wrote a will or suicide note, took out pills but didn't swallow any, held a gun but changed your mind or it was grabbed from your hand, went to the roof but didn't jump; or act ually took pills, tried to shoot yourself, cut yourself, tried to hang yourself, etc. No If YES, ask: Were any of these in the past 3 months? 7) Suicidal Attempts: Have you made a suicide attempt (took an action to end your life)? No If YES, ask: 7a) How many attempts have you ever made? 7b) How long ago was your most recent attempt? Suicide Risk: Low General Suicide Risk Factors Chronic Predisposing Risk Factors (Permanent and Non-modifiable): Demographics - White, Prior Suicide Ideation, History of Self-Harm Behavior and History of Psy chiatric Hospitalization Chronic Predisposing Risk Factors (Potentially Modifiable): [place] I Disorders, es pecially Mood/Bipolar, Anxiety, Schizophrenia, Alcohol/Substance Use, Eating, Titus dy Dysmorphic, ADHD/Conduct and Tobacco Smoking Patient does not have access to guns. Patient does not have access to other potentially lethal means. Protective Factors No internal protective factors No external protective factors Clinical Formulation The patient denies suicidal ideation at this time. She reports that not wanting to hurt her family has prevented her from attempting suicide when she has had s uicidal ideation in the past. The patient is a low risk for committing suicide at this time. VIOLENCE ASSESSMENT (VRISK-10): V-RISK-10: 1. Previous and/or current violence: No 2. Previous and/or current threats (verbal/physical): No 3. Previous and/or current substance abuse: Yes 4. Previous and/or current major mental illness: No 5. Personality Disorder: No 6. Shows lack of insight into illness and/or behavior: No 7. Expresses suspicion: No 8. Shows lack of empathy: No 9. Unrealistic planning: No 10. Future stress-situations: No Overall clinical evaluation of risk for violence: Low Suggestion following overall clinical evaluation: No More Detailed Violence Ris k Assessment Total Score: 2 Total Do Not Know Answers: 0 Assessment: The patient is a 40 year old female with a PMH significant for sarcoidosis, poly substance use (alcohol, hydrocodone, oxycodone/paracetamol, alprazolam, amphetam ine/dextroamphetamine), anxiety, GERD, hypothyroidism who presented to the [facility] for a broken foot 2/2 fall. The patient reports that no loved ones have laya r seen her fall and there is no one we can call for collateral information torrey mays how the falls look. Our differential includes neurologic dysfunction. We recommend a neurology consult for an evaluation of these potential pathologies. Our differential includes orthostatic hypertension so we recommend obtaining or thostatic vitals and discontinuing prazosin. The patient's psychiatric medicati ons may also be contributing to her falls. At this time she is willing to stop trazodone so we recommend reducing trazodone to 50 mg nightly. Our differential includes conversion disorder but all other potential causes must be ruled out. PSYCHIATRIC DIAGNOSIS: 300.02 (F41.1) Generalized Anxiety Disorder , previously diagnosed 309.81 (F43.10) Posttraumatic Stress Disorder (includes Posttraumatic Stress Dis order for Children 6 Years and Younger), without dissociative symptoms,without d elayed expression , previously diagnosed 292.9 (F11.99) Unspecified Opioid-Related Disorder, on methadone maintenance the rapy 311 (F32.9) Unspecified Depressive Disorder , previously diagnosed 314.01 (F09.9) Unspecified Attention-Deficit/Hyperactivity Disorder, Moderate , previously diagnosed RECOMMENDATIONS/PLAN: Disposition: Discharge to rehab per primary team Legal Status: None Safety/Level of Observation: Routine observation Scheduled Medications: Bupropion 450 mg daily Buspirone 10 mg BID Gabapentin 800 mg TID Methadone 145 mg daily Quetiapine 200 mg nightly Reduce Trazodone to 50 mg nightly Discontinue Prazosin 1 mg nightly PRN/Agitation Medications: None Referrals: Neurology consult Inpatient Follow Up: Psychiatry will follow Other Recommendations: Obtain orthostatic vitals Tasks Requiring Follow Up: None Next Outpatient Appointment(s): Continue with established outpatient providers Safety Planning: N/A Alirio Gil, MS4 This note has not been edited by a resident or an attending The patient was seen and discussed with Dr. Newman, the attending psychiatrist. I saw and evaluated the patient with MCKAY Valentin, and agree with their ondina mayss and plan as written in this excellent note with the addenda above. This patient was seen and discussed with Dr. Karl Newman who is in agreement wi th this treatment plan except as indicated in their addenda/edits to this note. Please feel free to contact me with any questions or concerns regarding this pat ient's care. Alf Bojorquez DO, MPH Psychiatry, PGY2 he/him/his Associated attestation - Karl Newman MD - 11/05/2020 1:21 PM EDT Deborah Webb was seen and discussed with the medical student (Angie Valentin) and the resident (Dr. Bojorquez). The medical student participated in the eval uation of the patient and in the documentation of the encounter, which has addit ionally been reviewed by the resident (Dr. Bojorquez). I independently evaluated th e patient, discussed the patient with the medical student and resident, and revi ewed the content of their note. The note has been revised to reflect the pertine nt positive and negative findings from the evaluation. I have verified all secti ons documented by the medical student and resident and I agree with the content, findings, and plan as written in the attached note. * Molly Austin, [facility] [place] - 11/01/2020 5:03 PM EDT Social Work Brief Screen Patient Name: Deborah Webb Pronoun Date of : 1980 [place]: [place] Admitting Dx: Leg fracture, left, closed, initial encounter [S82.92XA] Akinesia [R29.898] Admitting Provider: Shaggy Gilmore MD Referral Type: Inpatient Referral Source: Nurse rv repairer Reason for Referral: Emotional Support Date: November 01, 2020 Emergency Contacts Name: ajay Ferreira Significant other Address: Home: Work: Primary Caregiver: self Informant(s): Patient Authorized to Consent: self This abstract writer received a Vocera call from Nurse Case-Ultrasound Technol requesting that is abstract writer come see patient. This abstract writer did. Patient was crying because she wo uld not be able to go to a SNIFF on Methadone. This abstract writer shared with patient the story of [facility] opening, explaining how new SNIFF's are that also work with patient's on maintenance drugs. She shared she has a lock box and she wou ld keep it locked up. This abstract writer shared how she would not be able to medicate herself and agencies have to be licensed to provide maintenance therapy. Maybe one day they will have a facility for people on Methadone patient said. This abstract writer asked patient what support she has in the community. Patient shared how her case-staffing operations manager at [facility] is good. This abstract writer asked patient if she wanted to color - she replied yes, this abstract writer got her a coloring book. Patient reporte d she felt better. This abstract writer reported this abstract writer was glad, and that this wri ter would talk to her tomorrow. This abstract writer also shared that she may find some [place] on the snack cart.. Interventions Assessed for SW needs.Emotional Support Social Work remains involved. Signature: Molly Austin Date: November 01, 2020 * Molly Austin LMSW - 11/01/2020 4:59 PM EDT Associated Order(s): IP CONSULT TO SOCIAL WORK Social Work Brief Screen Patient Name: Deborah Webb Pronoun Date of : 1980 [place]idence: [place] Admitting Dx: Leg fracture, left, closed, initial encounter [S82.92XA] Akinesia [[id number]] Admitting Provider: Shaggy Gilmore MD Referral Type: Substance Abuse Referral Source: Molly Austin LMSW Reason for Referral: Get ELENA signed. Date: November 01, 2020 Emergency Contacts Name: ajay Ferreira Significant other Address: Home: Work: Primary Caregiver: self Informant(s): Patient Authorized to Consent: self This abstract writer received an EPIC chat from Difficult to Place Organ Tuner Electronic Gina Castillo requesting, "can you have patient signa release for [facility] methadone c linic." ELENA signed and placed in patient's binder. Interventions Care Coordination This Organ Tuner Electronic is unaware of any other needs at this time. Moreover, this So cial Worker will continue to follow as needed. Lastly, please contact Social Wor k should any further issues or needs arise. Signature: Molly Austin Date: November 01, 2020 * Molly Austin LMSW - 11/01/2020 2:22 PM EDT Social Work Brief Screen Patient Name: Deborah Webb Pronoun Date of : 1980 [place]idence: [place] Admitting Dx: Leg fracture, left, closed, initial encounter [S82.92XA] Akinesia [R29.898] Admitting Provider: Shaggy Gilmore MD Referral Type: Substance Abuse Referral Source: Molly Austin LMSW Reason for Referral: Substance Use/Abuse Date: November 01, 2020 Emergency Contacts Name: ajay Ferreira Significant other Address: Home: Work: Primary Caregiver: self Informant(s): Patient Authorized to Consent: self This abstract writer received an [employer] chat message from KERRI Phoenixin jo ann "you may have already done this, but can you have patient signa release for [facility]." Per KERRI Castillo's request, this abstract writer filled out a Release of Information f or [facility] and had patient sign it. This abstract writer placed the release in patient's binder. Interventions Care Coordination This Organ Tuner Electronic is unaware of any other needs at this time. Moreover, this So cial Worker will continue to follow as needed. Lastly, please contact Social Wor k should any further issues or needs arise. Signature: Molly Austin Date: November 01, 2020 * Brittanie Mcghee RN - 11/01/2020 2:03 PM EDT Associated Order(s): IP CONSULT TO TCU Patient is not a TCU candidate. TCU is not taking Non medicare patients starting 11/01/20. Robbie GUARDADO * Bravo Valdez, PharmD - 10/31/2020 10:50 AM EDT Associated Order(s): IP CONSULT TO PHARMACY Pharmacy Inpatient Medication History Review Prior to Admission Medications Prescriptions Last Dose Informant Patient Reported? Taking? Albuterol Sulfate HFA 108 (90 Base) MCG/ACT Inhalation Aerosol Solution (PROVENT IL HFA) Pharmacy Yes Yes Sig: Inhale 2 puffs into the lungs every 6 (six) hours as needed for Wheezing Benzonatate 200 MG Oral Capsule (TESSALON) Pharmacy Yes Yes Sig: Take 200 mg by mouth Three times daily as needed Docusate Sodium 100 MG Oral Capsule (COLACE) Pharmacy Yes Yes Sig: Take 100 mg by mouth Two Times Daily Gabapentin 800 MG Oral Tablet (NEURONTIN) Pharmacy Yes Yes Sig: Take 800 mg by mouth Three times daily Ibuprofen 800 MG Oral Tablet (MOTRIN) Pharmacy Yes Yes Sig: Take 800 mg by mouth Three times daily as needed for Pain Levothyroxine Sodium 100 MCG Oral Tablet (SYNTHROID) Pharmacy Yes Yes Sig: Take 150 mcg by mouth daily Methadone HCl 10 MG/ML Oral Concentrate (DOLOPHINE) Pharmacy Yes Yes Sig: Take 145 mg by mouth daily Note (10/31/2020): Last dose was at facility 10/26/20 Prazosin HCl 1 MG Oral Capsule (MINIPRESS) Pharmacy Yes Yes Sig: Take 1 mg by mouth nightly QUEtiapine Fumarate ER 200 MG Oral Tablet Extended Release 24 Hour (SEROquel XR) Pharmacy Yes Yes Sig: Take 200 mg by mouth nightly Vitamin D3 25 MCG (1000 UT) Oral Tablet (CHOLECALCIFEROL) Pharmacy Yes Yes Sig: Take 2,000 Units by mouth daily buPROPion HCl ER (XL) 150 MG Oral Tablet Extended Release 24 Hour (WELLBUTRIN XL ) Pharmacy Yes Yes Sig: Take 450 mg by mouth daily busPIRone (BUSPAR) 10 MG tablet Pharmacy Yes Yes Sig: Take 10 mg by mouth Two Times Daily Note (10/31/2020): Per patient they take inconsistently guaiFENesin 200 MG Oral Tablet Pharmacy Yes Yes Sig: Take 200 mg by mouth every 6 (six) hours as needed for Congestion traZODone HCl 100 MG Oral Tablet (DESYREL) Pharmacy Yes Yes Sig: Take 100 mg by mouth nightly Facility-Administered Medications: None Medication history was completed by a medication history air quality technician and independ ently reviewed by myself. Medication History Source: [id number] - [place], [place] [facility] [address] [id number] [facility] - [place], [place] - [address] [facility] [id number] [facility] [phone] The above prior to admission medications have been compared to current inpatient orders. Discrepancies: Interview conducted over the phone with pt and confirmed with pharmacy due to wo rk conditions as of 02/27/2020. Patient states they received a sample from their electrotherapist in [place] but the electrotherapist didn't have record of the patient being there since 2019 and d idn't have any record of giving a sample Confirmed with [facility] last dose and strength The following medications were not restarted inpatient: 1.Tessalon 2.Colace 3.Ibuprofen 4.Patient takes 150mcg of levothyroxine at home, ordered for 175mcg inpatient 5.Patient takes buspar 10mg BID outpatient, ordered as 5mg BID inpatient 6.Vitamin D 7.Guaifenesin Recommendations: Please consider restarting home medications as clinically appropriate Medication history was completed based on information available during this sloane ent encounter, the list above may not be all inclusive. Thank you, Aleksander GanD PGY1 Clinical Pharmacy Reisdent * Savi Leone NP - 10/31/2020 10:17 AM EDT Associated Order(s): IP CONSULT TO ADDICTION SERVICES/CHEMICAL DEPENDENCY Substance Use Inpatient Consultation Patient Name: Deborah Webb : 1980 Encounter Date: 10/31/20 with Savi Leone NP REASON FOR CONSULTATION: Follow up- routine. INTERVAL HX: Ms. Webb reports that she is feeling well with her methadone at 1 45mg/day. She anticipates that she will be transferred for continued medical re hab before returning home. She says that her methadone helps with the pain. She is going to call her outpatient clinic to see if she can continue her appointme nts via phone while she is in the hospital. She reports to be in recovery, on m ethadone maintenance, for a little over a year. She says that her methadone dos e was decreased 10mg more recently due to a hx of falls. She does not want to m marcelo any changes to her methadone dose at this time. PAST MEDICAL HISTORY: Past Medical History: Diagnosis Date Anxiety Bronchitis, chronic Depression GERD (gastroesophageal reflux disease) Headache Substance abuse Thyroid disease SOCIAL HISTORY: Has three daughters Medications: Current Facility-Administered Medications: acetaminophen (TYLENOL) tablet 650 mg, 650 mg, Oral, Once, Bran escoto MD acetaminophen (TYLENOL) tablet 650 mg, 650 mg, Oral, Q4H PRN, Bran boewr MD, 650 mg at 10/31/20 0404 buPROPion (WELLBUTRIN XL) 24 hr tablet 450 mg, 450 mg, Oral, Daily, Cristina Patel MD, 450 mg at 10/31/20 0852 busPIRone (BUSPAR) tablet 5 mg, 5 mg, Oral, BID, Bran Patel MD, 5 mg at 10/31/20 0852 enoxaparin sodium (LOVENOX) injection 40 mg, 40 mg, Subcutaneous, Daily, Cr Nava MD, 40 mg at 10/31/20 0852 gabapentin (NEURONTIN) capsule 800 mg, 800 mg, Oral, TID, Cr Nava MD, 800 mg at 10/31/20 0851 levothyroxine (SYNTHROID) tablet 175 mcg, 175 mcg, Oral, Daily, Bran Patel MD, 175 mcg at 10/31/20 0655 methadone (DOLOPHINE) 10 MG/ML oral solution concentrated 145 mg, 14 5 mg, Oral, Daily, ADRIANA Patel, 145 mg at 10/31/20 0849 oxyCODONE (ROXICODONE) immediate release tablet 5 mg, 5 mg, Oral, Q4H AZ N, ADRIANA Patel, 5 mg at 10/31/20 0404 potassium chloride (K-DUR) dissolvable tablet 40 mEq, 40 mEq, Oral, Q4H, Benjamin Mcnamara NP, 40 mEq at 10/31/20 0655 prazosin (MINIPRESS) capsule 1 mg, 1 mg, Oral, Nightly, Bran Patel MD, 1 mg at 10/30/202019 QUEtiapine (SEROQUEL XR) extended-release tablet 200 mg, 200 mg, Oral, N ightly, Bran Patel MD, 200 mg at 10/30/202019 ropivacaine (NAROPIN) PNB 0.2 % CADD, , Infiltration, Continuous, Yeyo berg MD, 500 mg at 10/29/20 1549 ropivacaine (NAROPIN) PNB 0.2 % CADD, , Infiltration, Continuous, Ania Muller MD, Last Rate: 6 mL/hr at 10/30/20 0853, 500 mg at 10/30/20 0853 trazodone (DESYREL) tablet 100 mg, 100 mg, Oral, Nightly, Bran magaña MD, 100 mg at 10/30/202019 Allergies: No Known Allergies Mental Status Evaluation: Blood pressure 122/78, pulse 73, temperature 36.7 C (98.1 F), temperatur e source Oral, resp. rate 18, height 1.6 m, weight 113.4 kg (250 lb), SpO2 95 %. Appearance: Is a 40 year old woman Motor Activity: Sitting up in her recliner. Manner: Patient is calm, engaged in conversation. Speech: Speech is a normal rate rhythm and volume. Mood/affect: Affect is full, she denies feeling depressed. Thought Process: Linear and logical. Thought Content: No delusions. No SI. Perceptions: No hallucinations Cognition: Pt is alert and oriented to "October 31, 2020" Insight/judgment: Fair DIAGNOSIS/TREATMENT PLAN: Ms. Webb is a 40 yo woman admitted with a left tibular-fibular fracture now s/ p IM Nail of left tibia shaft, closed treatement of fibula fracture with manipul ation-Per Dr. Ervin (Left) 10/28/2020 Opioid use disorder- in remission- on methadone maintenance - encouraged pt to connect with her outpatient team. - continue methadone per [facility] dose conformation. - Will sign off. Please re-consult as needed. * Savi Leone NP - 10/29/2020 11:53 AM EDT Substance Use Consult Coordination of Care Note: Consult requested for methadone management. Per Dr. Ryan, pt receives methadone through [facility]. Primary team has attempted to contact [facility] however methadone dose has not yet b een verified. May give a one time methadone 30mg liquid concentration until home dose can be v erified. Consider pharmacy consult for assistance with methadone verification. Please re-consult as needed. Addendum: I have checked in with the pt briefly. She had returned from a nerve block whic h she reported to be helping her. Per her report she provided the medical team with the contact info for [facility]. She reports to take 145mg/day of methadone wit h last dose on Thursday. She received 30mg of methadone today while team is jovita morales on verifying dose. She reports a hx of falls. Remote hx of alcohol use- non e recent. Hx of benzodiazepine prescription for anxiety approximately two years ago. She reports to be prescribed bupropion, gabapentin, levothyroxine, and one other medication for anxiety that she does not recall the name of. No SI/HI. I have discussed with the primary team. Please verify methadone dose and discus s with methadone clinic if a dose reduction is recommended given the number of d ays that she has been without her home dose of methadone. * Cheli Moore DO - 10/29/2020 11:03 AM EDT Associated Order(s): Consult to PMR Inpatient Consult to PMR Inpatient Consult performed by: Cheli Moore DO Consult ordered by: Cr Nava MD Reason for consult: Impaired mobility and self-care, evaluate for rehab needs Physical Medicine and Rehabilitation Consult REASON FOR CONSULTATION: Impaired mobility and self-care secondary to L tib/fib fracture Requested By: General Medicine HISTORY OF PRESENT ILLNESS: (Brief 1-3 elements, Extended 4-8 elements) Admitted on: 10/26/2020 Deborah Webb is a 40 y.o. female with PMH significant for sarcoidosis, histo ry of substance abuse, anxiety, GERD, hypothyroidism [facility]. Patient stated that she sustained a ground-level fall for which resulted in a left-sided tibial and fibular fracture. Orthopedics was consulte d in the ED. Patient underwent an intramedullary nail of the left tibia shaft w ith a closed treatment of the fibular fracture with manipulation by Dr. Ervin on 10/28/2020. Current Functional Status: PT: Mobility Dep Max Mod Min CG S I PA Ambulation x Bed x Transfer x Balance x OT: ADL Dep Max Mod Min CG S I PA Feeding x Grooming x Upper x Lower x Toileting x Speech/swallow status: no dysphagia Weight bearing restrictions: TDWB to LLE Continence: Bowel: continent Bladder: continent REVIEW OF SYSTEMS: Review of Systems: 1. Constitutional: (-) fever, (-) chills, (-) insomnia, (-) weight loss, (-) fat igue/lethargy 2. Eye: (-) glasses, (-) diplopia, (-) blurred vision, (-) blindness 3. ENT: (-) dentures (-) hearing deficits, (-) dysphagia, (-) dizziness. 4. Respiratory: (-) shortness of breath, (-) wheeze, (-) cough, (-) dyspnea. 5. Cardiovascular: (-) chest pressure or pain, (-) palpitations, (-) edema, (-) orthopnea. 6. GI: (-) abdominal pain, (-) nausea, (-) vomiting, (-) diarrhea, (-) constipat ion, (-) appetite change. 7. Neurology: (+) pain, (-) headache, (-) dizziness, (+) weakness, (-) paralysis , (-) stiffness, (-) numbness, (-) paresthesias, (-) dysesthesia. 8. Musculoskeletal: (-) arthralgia, (-) myalgia, (-) spasm, (-) contracture, (-) deformity. 9. Integument: (-) skin changes, (-) rash, (-) pressure sore 10. Endocrine: (-) temperature intolerence, (-) polyuria, (-) polydipsia, (-) ch anges in weight. 11. : (-) dysuria, (-) frequency, (-) urgency, (-) incontinence, (-) hematuria , (-) use of catheter. 12. Hem/Onc: (-) easy bleeding, (-) ecchymosis, (-) swollen glands 13. Psychiatric: (-) mod disturbance, (-) depression, (-) anxiety, (-) sleep dis turbance, (-) altered behavior delusions/hallucination. ALLERGIES/REACTIONS: No Known Allergies MEDICATIONS: Current Facility-Administered Medications Medication Dose Route Frequency Provider Last Rate Last Admin acetaminophen (TYLENOL) tablet 650 mg 650 mg Oral Once Bran Patel MD acetaminophen (TYLENOL) tablet 650 mg 650 mg Oral Q4H PRN Bran magaña MD 650 mg at 10/29/20 0937 benzonatate (TESSALON) capsule 200 mg 200 mg Oral TID Angie Dickey 200 mg at 10/29/20 0806 buPROPion (WELLBUTRIN XL) 24 hr tablet 450 mg 450 mg Oral Daily Bran Patel MD 450 mg at 10/29/20 0807 busPIRone (BUSPAR) tablet 5 mg 5 mg Oral BID Bran Patel MD 5 mg at 10/29/20 0807 ceFAZolin (ANCEF) IVPB 2 g in dextrose (premix) 2 g Intravenous Q8H Manoj Nava MD 200 mL/hr at 10/29/20 0633 2 g at 10/29/20 0633 enoxaparin sodium (LOVENOX) injection 40 mg 40 mg Subcutaneous Daily Miko Nava MD gabapentin (NEURONTIN) capsule 800 mg 800 mg Oral TID Cr Nava MD 800 mg at 10/29/20 0807 levothyroxine (SYNTHROID) tablet 175 mcg 175 mcg Oral Daily Bran salazar MD 175 mcg at 10/29/20 0426 morphine sulfate (PF) injection 4 mg 4 mg Intravenous Q4H PRN ADRIANA Majano 4 mg at 10/29/20 0803 NaCl infusion 0.9 % Intravenous Continuous Barn Patel MD 75 mL/hr at 10/27/20 1001 New Bag at 10/27/20 1001 oxyCODONE (ROXICODONE) immediate release tablet 5 mg 5 mg Oral Q4H PRN ADRIANA Ruffin 5 mg at 10/29/20 0937 prazosin (MINIPRESS) capsule 1 mg 1 mg Oral Nightly Bran Patel MD 1 mg at 10/28/202141 QUEtiapine (SEROQUEL XR) extended-release tablet 200 mg 200 mg Oral Nigh tly Bran Patel MD 200 mg at 10/28/202141 trazodone (DESYREL) tablet 100 mg 100 mg Oral Nightly Angie Dickey 100 mg at 10/28/202141 PMH: Anxiety Bronchitis, chronic Depression GERD (gastroesophageal reflux disease) Headache Substance abuse Thyroid disease PSH: Had a C section. FAMILY HX: Denies any knowledge of family medical history. SOCIAL HISTORY: She reports that she has been smoking cigarettes. She has been smoking about 0.5 0 packs per day. She has never used smokeless tobacco. She reports current drug use. Drugs: Methamphetamines and Amphetamines. No history on file for alcohol us e. Lives with: Home and Alone Living Accommodations: 2 flights of stairs to enter single level apartment First floor set-up available: no Occupation: Unemployed Mobility: Independent ADL's: Independent Driving: no Falls in past year: Several falls in the past year. Support on discharge: Pt has some family that lives near by who can help with th e pt. Full history confirmed. PHYSICAL EXAM: Vitals: Visit Vitals BP (!) 133/93 (BP Location: Left arm, Patient Position: Lying) Comment: RN aware Pulse 84 Temp 37.3 C (99.1 F) (Oral) Resp 16 Ht 1.6 m (5' 3") Wt 113.4 kg (250 lb) SpO2 93% BMI 44.29 kg/m GENERAL APPEARANCE: Normal development and nutrition, Appropriate grooming Build: Obese HEAD: NC/AT EYES: Normal pupil shape and size, PERRL, Conjunctiva clear/no lid lesions ENT: External ears and nose intact without erythema or exudate, Gross hearing in tact, Oral mucosa is pink and moist NECK: Supple and symmetrical with trachea midline RESPIRATORY: Lungs: Clear to auscultation: no crackles, wheezes, or rhonchi Normal respiratory effort CARDIOVASCULAR: Heart: RRR, no murmurs, Pedal pulses intact bilaterally, capilla ry refill normal, No edema ABDOMEN: Soft, NT/ND, no rebound, bowel sounds positive MUSCULOSKELETAL: Normal Bulk, Normal Tone Motor Examination: (Graded strength from a scale 0-5) Motor Strength Right Left C4 Shoulder abductors 5 5 C5 Elbow flexors 5 5 C6 Wrist extensor 5 5 C7 Elbow extensor 5 5 C7/8 Finger extensor 5 5 C8 Finger flexors 5 5 T1 Finger abductor 5 5 L2 Hip flexors 5 NT L3 Knee extensors 5 NT L4 Ankle dorsiflexors 5 At least 1+ L5 Extensor hallucis longus 5 At least 1+ S1 Ankle plantar flexor 5 At least 1+ Neurological: No Babinski No Mendenhall's No Clonus Cranial nerves II-XII exam: Cranial Nerves Normal Abnormal II x III, IV, x V x VII x VIII x IX, X x XI x XII x Coordination: Normal Abnormal Motor Control x Finger to nose x Heel/knee/hastings Rapid alternating movements Sensation: Normal Abnormal Light touch (Dorsal Column) x Pin prick (Spinothalamic) Vibration (Dorsal Column) Proprioception (Dorsal Column) DTR exam: Present Right Left Bicep (C5) 2 2 Brachioradialis (C6) Patella (L3/4) 2 NT Achilles (S1) Other Abnormal Neurologic: Present Absent Normal speech/language x Dysarthria x Apraxia Neglect Hemiparesis Paresis Aphasia: Present Absent Fluency x Word Errors x Repetition x Naming x Comprehension Reading Psychiatric: Present Absent Normal judgement/and insight: x Normal mood: x Depression x Anxiety x Agitation x Hypomanic x Normal affect: x Flat x Euphoric x Normal level of consciousness: x Drowsy/Stupor x Coma x Mini Mental Status: Alert and oriented, follows 3 step commands. Skin: Inspection: no rashes, lesions, or ulcers, Palpation: no induration, nodu les, or tightening. DIAGNOSTIC TESTS: CBC: Lab Results Component Value Date WBC 6.3 10/29/2020 RBC 2.81 (L) 10/29/2020 HGB 8.7 (L) 10/29/2020 HCT 24.8 (L) 10/29/2020 PLT 183 10/29/2020 CMP: Lab Results Component Value Date NA 139 10/29/2020 K 3.2 (L) 10/29/2020 CL 103 10/29/2020 BICARBONATE 26 10/29/2020 CALCIUM 8.3 (L) 10/29/2020 GLUCOSE 97 10/29/2020 BUN 8 10/29/2020 BCR 8 10/29/2020 GFRAA 77 10/29/2020 GFRNONAA 67 10/29/2020 Records Reviewed: Hospital, H&P ASSESSMENT: Patient Active Problem List Diagnosis Date Noted Akinesia 10/27/2020 Leg fracture, left, closed, initial encounter 10/26/2020 Patient is a 40-year-old female with past medical history significant for sarcoi dosis, history of substance abuse, anxiety, GERD, hypothyroidism who [facility] following [facility]. Patient premorbid level of function was independent fo r mobility and ADLs patient's current level of function is min assist for ambula tion, contact-guard for bed and transfers and supervision for balance. Patient is independent for feeding, supervision for grooming, uppers and toileting and m in assist for lowers. On discharge patient has some family that lives nearby wh o can provide some support. PLAN: Will discuss with attending physician to determine whether patient meets criteri a for inpatient acute rehabilitation vs other rehabilitation options (SNF, outpa tient, home care). Please see addendum for full assessment and plan. Thank you f or the consultation Harrison Reyes MD PGY-3 Resident Physical Medicine & Rehabilitation I saw and evaluated the patient. Discussed with the resident and agree with the residents findings, as documented in the resident's note, along with my additio ns. I have updated the patient/family regarding the current status and plans. Electronically Signed by Cheli Moore on October 29, 2020 at 3:28 PM Vinicio rehab options with the patient. Currently the patient is contact-guard to minimal assistance for mobility and self-care. She has 2 flights of stairs to g et into her apartment. Medically, she can be managed at lower level. Would jass n on SNF rehab to allow her to continue to work on the 2 flights of stairs into her house. * Abad Puckett MD - 10/26/2020 7:11 PM EDT Associated Order(s): IP CONSULT TO ORTHOPEDIC SURGERY Images from the original note were not included. Fracture Documentation Details Encounter: Initial Laterality: Left Location on Bone: Tibia and fibular shaft Open or Closed: Closed Classification: N/A Category: Traumatic Fracture Pattern: Oblique Alignment: displaced Result/Fracture Healing Status: Routine/Expected ORTHOPEDIC SURGERY CONSULT NOTE I was consulted at 1999. I saw that patient at approximately 2004. CHIEF COMPLAINT: Left leg pain HPI: Deborah Webb is a 40 y.o.female she stood up and fell from standing in her home today. She sustained a left tibial shaft fracture and was found from [facility]. Orthopedics was consulted for evaluation and management. On evaluation She complains of excruciating pain to her left leg. The onset of p ain was immediate. She characterizes the pain as sharp and localized to the leg. The pain is exacerbated by movement. It is partially relieved with rest. She d enies numbness or tingling in the extremity. Denies head strike and loss of cons ciousness.She denies injury to any other extremity. She does not take anticoagul ant medications. She has a PMH significant for sarcoidosis, substance use disorder on methadone, obesity, PTSD, anxiety/depression. Patient reports prior fracture of the left a nkle She denies any previous surgeries. Family History: non-contibutory SOCIAL HISTORY She lives in [place]. She is currently not employeed. She has roughly 0 drinks /wk. She smokes 1 packs/day. She denies illicit drug use. She is a community am bulator at baseline. She is able to perform her activities of daily living indep endently. The remainder of her history is as described below. REVIEW OF SYSTEMS A complete review of systems was completed at time of consult. See HPI for pert inent positives and negatives. All other systems negative. Past Medical History: Diagnosis Date Anxiety Bronchitis, chronic Depression GERD (gastroesophageal reflux disease) Headache Substance abuse Thyroid disease History reviewed. No pertinent surgical history. No family history on file. Social History Socioeconomic History Marital status: Single Spouse name: Not on file Number of children: Not on file Years of education: Not on file Highest education level: Not on file Occupational History Not on file Tobacco Use Smoking status: Current Every Day Smoker Packs/day: 0.50 Types: Cigarettes Smokeless tobacco: Never Used Substance and Sexual Activity Alcohol use: Not on file Drug use: Yes Types: Methamphetamines, Amphetamines Sexual activity: Not on file Other Topics Concern Not on file Social History Narrative Not on file Social Determinants of Health Financial Resource Strain: [...] Social Gatherings with Friends and Family: Attends Rastafari Services: Active Member of Clubs or Organizations: Attends Club or Organization Meetings: Marital Status: Intimate Partner Violence: Fear of Current or Ex-Partner: Emotionally Abused: Physically Abused: Sexually Abused: No Known Allergies No current facility-administered medications on file prior to encounter. Current Outpatient Medications on File Prior to Encounter Medication Sig Dispense Refill Benzonatate 200 MG Oral Capsule (TESSALON) Take 200 mg by mouth Three piotr es daily buPROPion HCl ER (XL) 150 MG Oral Tablet Extended Release 24 Hour (WELLBU ALLISON XL) TAKE THREE TABLETS BY MOUTH ONCE DAILY busPIRone HCl 5 MG Oral Tablet (BUSPAR) TAKE ONE TABLET BY MOUTH TWICE DA VINAY FOR ANXIETY Gabapentin 800 MG Oral Tablet (NEURONTIN) TAKE ONE TABLET BY MOUTH THREE TIMES A DAY FOR ANXIETY Prazosin HCl 1 MG Oral Capsule (MINIPRESS) Take 1 mg by mouth nightly QUEtiapine Fumarate ER 200 MG Oral Tablet Extended Release 24 Hour (SEROq uel XR) Take 200 mg by mouth nightly traZODone HCl 100 MG Oral Tablet (DESYREL) Take 100 mg by mouth nightly OBJECTIVE: Temp: [36.8 C (98.2 F)] 36.8 C (98.2 F) Pulse: [100] 100 Resp: [18] 18 BP: (108)/(81) 108/81 SpO2: [92 %] 92 % O2 Therapy: Room air General: No acute distress. She appears well developed and well nourished Lungs: Equal chest rise bilaterally, non labored respirations Neurological: Awake, alert and oriented. Extremities: RUE: Skin intact. No deformity or ecchymosis. No tenderness to bony palpation of the hand, wrist, forearm, elbow, humerus, sh oulder or clavicle. Sensation intact to light touch in radial / median / ulnar / axillary nerve dis tributions. Anterior interosseous nerve / posterior interosseous nerve / ulnar / axillary n erve motor function intact. Fingers warm and well perfused. Brisk capillary refill Active ROM of the fingers, wrist, elbow and shoulder without pain. Compartments compressible LUE: Skin intact. No deformity or ecchymosis. No tenderness to bony palpation of the hand, wrist, forearm, elbow, humerus, sh oulder or clavicle. Sensation intact to light touch in radial / median / ulnar / axillary nerve dis tributions. Anterior interosseous nerve / posterior interosseous nerve / ulnar / axillary n erve motor function intact. Fingers warm and well perfused. Brisk capillary refill Active ROM of the fingers, wrist, elbow and shoulder without pain. Compartments compressible RLE: Skin intact. No deformity or ecchymosis. No tenderness to bony palpation of the foot, ankle, leg, knee or thigh. No pain on log roll. Sensation intact to light touch in superficial peroneal / deep peroneal / tibia l / saphenous / sural nerve distributions. Extensor hallucis longus / flexor hallucis longus / tibialis anterior / gastroc nemius motor function intact. Toes warm and well perfused. Palpable dorsalis pedis pulse Active ROM of the foot, ankle or knee without pain. Leg compartments soft and compressible. LLE: Skin intact. Mild ecchymosis overlying the anterior leg. Severe tenderness to palpation of leg. No tenderness to bony palpation of the f oot, ankle, knee or thigh. Sensation intact to light touch in superficial peroneal / deep peroneal / tibia l / saphenous / sural nerve distributions. Extensor hallucis longus / flexor hallucis longus / tibialis anterior / gastroc nemius motor function intact. Toes warm and well perfused. Palpable dorsalis pedis pulse Active ROM of the foot or ankle without pain. Leg compartments soft and compressible. PELVIS ALIGNMENT: No deformity of the hips PALPATION: stable to lateral compression. Laboratory studies independently reviewed. Recent Labs Lab 10/26/201911 WBC 12.7* RBC 3.46* HGB 10.7* HCT 31.3* PLT 171 NEUTOPHILPCT 89 MONOPCT 5 EOSPCT 0 No results for input(s): NA, K, CL, BICARBONATE, GLUCOSE, BUN, CREATININE, BCR, LABOSMO, GFRAA, GFRNONAA in the last 168 hours. No results found for: INR, PROTIME RADIOLOGY: Radiographic studies independently reviewed. X-ray left lower extremity/knee/tibia/ankle shows a displaced short oblique tibi a-fibula fracture in the middle to distal third and a fibular neck fracture ED MANAGEMENT: Pain medication was provided. The patient was then placed in a long leg splint. Follow-up x-rays showed unchanged alignment of the fracture. The alignment was acceptable. Post-reduction exam was unchanged with brisk capillary refill to the toes, intact motor and sensory function. ASSESSMENT: Deborah Webb is a 40 y.o. female who fell in her home and sustai halima a left tibia and fibular shaft fracture. This is a closed and neurovascular intact injury. We had long discussion with the patient at bedside about the na ture of her injury and possible treatment including operative fixation, at this time she would like to go forward with operative fixation of the left leg X-ray also shows an isolated medial malleolus fracture with a well aligned tibio talar joint, patient reports prior history of ankle fracture on this side is pos sible this is old fracture we will obtain a CT of the ankle to better understand . PLAN: - Plan is to take her to the OR for operative fixation of left tibia with possib le fasciotomies - Recommend Medicine consultation for admission due to medical co-morbidities an d we would appreciate pre-operative risk stratification and medical optimization as per the Medicine service. - Consent obtained and case posted - NPO at midnight - Pre-operative labs ordered: type and screen, basic metabolic panel, complete b lood count, coagulation studies, EKG, CXR. - Activity: nonweightbearing to left leg - DVT prophylaxis: Lovenox and mechanical sequential compression devices - Will repeat secondary exam tomorrow Associated attestation - Manjeet Ervin MD - 10/28/2020 9:17 AM EDT I saw and evaluated the patient on 10/27/2020. Discussed with the resident and a gree with the residents findings and plans as written, along with any supplement al dictated and/or attending documentation in the patient record by myself. documented in this encounter ED Notes * Sita Rodriguez RN - 10/26/2020 10:40 PM EDT Report was given to DEBBY Peng. * Sourav Joy, - 10/26/2020 7:19 PM EDT History No Known Allergies Chief Complaint Patient presents with Fall There is no immunization history on file for this patient. HPI Patient is a 40-year-old female who arrives here by [facility] for evaluation after falling out of her bed earlier today, endorsing significant left lower extremity pain. Per EMS, she was given 350 mg of fentanyl prior to arrival, left lower leg has an obvious deformity, splint was applied by EMS. Patient denies any hea dache, dizziness, shortness of breath, chest pain prior to bed, states that she stood up, lost her balance and fell. States she laid on her floor for a couple of hours, finally was able to get back into bed, after she called 911. Continue s to endorse left lower extremity pain, denies any head, denies LOC, denies any pain in her neck or elsewhere. Patient states that she is on methadone secondar y to substance use disorder. Past Medical History: Diagnosis Date Anxiety Bronchitis, chronic Depression GERD (gastroesophageal reflux disease) Headache Substance abuse Thyroid disease History reviewed. No pertinent surgical history. No family history on file. Social History Tobacco Use Smoking status: Current Every Day Smoker Packs/day: 0.50 Types: Cigarettes Smokeless tobacco: Never Used Substance Use Topics Alcohol use: Not on file Drug use: Yes Types: Methamphetamines, Amphetamines Social Screening Review of Systems Constitutional: Negative for fever. HENT: Negative for sore throat. Eyes: Negative for discharge. Respiratory: Negative for shortness of breath. Cardiovascular: Negative for chest pain. Gastrointestinal: Negative for abdominal pain. Genitourinary: Negative for dysuria. Musculoskeletal: Negative for back pain. Skin: Negative for rash. Neurological: Negative for headaches. Psychiatric/Behavioral: Negative for behavioral problems. Physical Exam Visit Vitals BP 108/81 (BP Location: Left arm, Patient Position: Sitting) Pulse 100 Temp 36.8 C Resp 18 Ht 1.6 m Wt 113.4 kg SpO2 92% BMI 44.29 kg/m Physical Exam Vitals and nursing note reviewed. Constitutional: General: She is not in acute distress. Appearance: Normal appearance. HENT: Head: Normocephalic and atraumatic. Right Ear: Tympanic membrane, ear canal and external ear normal. Left Ear: Tympanic membrane, ear canal and external ear normal. Nose: Nose normal. No rhinorrhea. Mouth/Throat: Mouth: Mucous membranes are moist. Pharynx: Oropharynx is clear. Eyes: Extraocular Movements: Extraocular movements intact. Pupils: Pupils are equal, round, and reactive to light. Neck: Comments: Negative C-spine tenderness. Cardiovascular: Rate and Rhythm: Normal rate and regular rhythm. Pulses: Normal pulses. Heart sounds: Normal heart sounds. Pulmonary: Effort: Pulmonary effort is normal. Breath sounds: Normal breath sounds. Abdominal: General: Abdomen is flat. Palpations: Abdomen is soft. Tenderness: There is no abdominal tenderness. Musculoskeletal: General: Tenderness, deformity and signs of injury present. Normal range of m otion. Cervical back: Normal range of motion and neck supple. Comments: Obvious deformity to left lower extremity. DP pulses palpable +2/4 , sensation grossly intact. RLE, BUEs atraumatic, neurovascularly intact, ROM WNL. Skin: General: Skin is warm. Capillary Refill: Capillary refill takes less than 2 seconds. Findings: No rash. Neurological: General: No focal deficit present. Mental Status: She is alert and oriented to person, place, and time. Psychiatric: Mood and Affect: Mood normal. Behavior: Behavior normal. ED Course (Entries in this section may reflect care that occurred after patient hand-off a nd are the responsibility of that provider as indicated by their initials.) ED Course as of Oct 26 [id number] 26, [id number] Basic Metabolic Panel [JK] ED Course User Index [JK] Sourav Joy, DO Procedures [facility] Patient is a 40-year-old female who presents for evaluation for likely after fly ing out of her bed earlier today, sustaining injury to her left lower extremity. On initial exam patient is alert, endorsing left lower extremity pain, vitals are stable. Chest x-ray, x-rays of left lower extremity were obtained, patient was given mor phine, labs obtained. Upon review, patient has a fracture of her left tibia, fibula, medial malleolus, orthopedics was consulted, and subsequently placed her in a long-leg cast. Upon review of her labs, they are notable for elevated TSH, elevated creatinine, mild anemia but not requiring urgent transfusion. She was subsequently given I V fluids. Given lab abnormalities, orthopedic states that patient should be admitted to [facility]. She was subsequently admitted, please see the admitting team's note for further evaluation and management. Impression: Left tibia fracture; left fibula fracture; left medial malleoli frac ture Condition: Stable Dispo: Admitted Sourav Joy DO Resident 10/27/20 0007 Associated attestation - Cr Anand MD - 10/29/2020 3:47 PM EDT I saw and evaluated the patient. Discussed with the resident and agree with the residents findings and plans as written, along with any supplemental dictated a nd/or attending documentation in the patient record by myself. * Sita Rodriguez RN - 10/26/2020 7:15 PM EDT Ortho is at the bedside. * Ronda Griffith RN - 10/26/2020 5:56 PM EDT [facility]. Patient fell from [facility] and denies LOC. Patient A+Ox4 on arrival. * Zay Bryson RN - 10/26/2020 5:54 PM EDT Bed: 1R Expected date: Expected time: Means of arrival: Comments: 40 F leg trauma by helicopter at 1740 documented in this encounter Miscellaneous Notes * Farida Patient Instructions - Mian MaryROOSEVELT - 11/08/2020 11:48 AM EDT 86395 Suture Care Sutures or stitches are used to close wounds. Sutures also help stop bleeding an d speed healing. To help your wound heal, follow the tips on this handout. Types of sutures Some sutures need to be removed by a healthcare provider. These are called nonab sorbable sutures. Others dissolve on their own and will not need to be removed T hese are called absorbable sutures. Sometimes strips of tape, sd, or skin g lue (adhesives) are used. You?ll be told what kind of sutures you have. The type of sutures you have are called: Keep sutures clean Don't do things that could cause dirt or sweat to get on your sutures. If needed, cover your sutures with a bandage to protect them. Don?t pick at scabs. They help protect the wound. Don?t wash the area around your sutures unless your healthcare provider sa ys it?s OK. Then, follow their instructions for washing and drying. Keep sutures dry Keep your sutures out of water. Take a sponge bath to prevent getting your sutures and wound wet, unless y our healthcare provider tells you otherwise. Ask your provider when can you take a shower or bathe. Ask your provider about the best way to keep your sutures dry when bathing or showering. If sutures get damp, pat them dry. Changing your dressing Leave the dressing in place until you are told to remove it or change it. Change it only as directed, using clean hands: After the first ___hours, change your dressing every ___hours. Change your dressing if it gets wet or dirty. Apply antibiotic ointment ag ain if directed by your provider. Other tips To help wounds on an arm or leg heal, use the affected limb as little as p ossible. To help reduce swelling and throbbing, raise the area with sutures above y our heart. To help prevent itching, cover sutures with gauze. If sutures itch, try no t to scratch them. For pain relief, try acetaminophen or ibuprofen. Don?t use aspirin. It can increase bleeding. For skin glue or skin tape: Don't pick or scratch the area. The tape or gl ue will fall out on its own in several days. For absorbable sutures: These sutures dissolve on their own. Your provider can tell you how long this will take. You don't need to return to have your sut ures removed. For removable sutures or sd: You will need to be seen to have your murillo tures removed. Call your provider or return to have your sutures removed in ____ ____days. When to call your healthcare provider Call your healthcare provider if you notice any of the following signs: Increased soreness, pain, or tenderness after 24 hours A red streak, increased redness, or puffiness near the wound White, yellowish, or bad smelling discharge from the wound Bleeding that can?t be stopped by applying pressure Adhesive strips fall off or stitches dissolve before the wound heals Fever of 100.4F (38.0C) or higher, or as directed by your provider Last Reviewed Date: 09/04/201819994759-3891 [employer]. All rights reserved. This information is not intended as a substitute for professional medical care. Always follow you r healthcare professional's instructions. * [facility] Patient Instructions - Mary Pappas NP - 11/08/2020 11:42 AM EDT 1085 Keflex Oral Capsule 500 mg Uses For treating bacterial infection. Instructions This medicine may be taken with or without food. Keep the medicine at room temperature. Avoid heat and direct light. It is important that you keep taking each dose of this medicine on time even if you are feeling well. If you forget to take a dose on time, take it as soon as you remember. If it is almost time for the next dose, do not take the missed dose. Return to your suhail l dosing schedule. Do not take 2 doses of this medicine at one time. Please tell your doctor and pharmacist about all the medicines you take. Include both prescription and pwzf-[id number]-[id number] medicines. Also tell them about any ena mins, herbal medicines, or anything else you take for your health. It is very important that you continue using this medicine for the full number o f days that it is prescribed. Please do not stop the medicine even if you start to feel better after the first few days. If you have diabetes and use urine glucose tests, this medicine may cause incorr ect results. Please check with your doctor before making any changes to your pinky betes treatment plan. Cautions Tell your doctor and pharmacist if you ever had an allergic reaction to a medici ne. Symptoms of an allergic reaction can include trouble breathing, skin rash, i tching, swelling, or severe dizziness. Do not use the medication any more than instructed. Please tell your doctor if you have moderate to severe diarrhea while on this me dicine. Do not treat the diarrhea with lxer-zql-nphwsxr diarrhea medicine. Tell the doctor or pharmacist if you are , planning to be , or b reastfeeding. Ask your pharmacist if this medicine can interact with any of your other medicin es. Be sure to tell them about all the medicines you take. Do not start or stop any other medicines without first speaking to your doctor o r pharmacist. Do not share this medicine with anyone who has not been prescribed this medicine . Side Effects The following is a list of some common side effects from this medicine. Please s peak with your doctor about what you should do if you experience these or other side effects. diarrhea nausea stomach upset or abdominal pain yeast infection of mouth vaginal itching or yeast infection vomiting Call your doctor or get medical help right away if you notice any of these more serious side effects: severe, watery or bloody diarrhea A few people may have an allergic reaction to this medicine. Symptoms can includ e difficulty breathing, skin rash, itching, swelling, or severe dizziness. If yo u notice any of these symptoms, seek medical help quickly. Extra Please speak with your doctor, nurse, or pharmacist if you have any questions ab out this medicine. [email or web address] IMPORTANT NOTE: This document tells you briefly how to take your medicine, but i t does not tell you all there is to know about it.Your doctor or pharmacist may give you other documents about your medicine. Please talk to them if you have an y questions.Always follow their advice. There is a more complete description of this medicine available in French.Scan this code on your smartphone or tablet o r use the web address below. You can also ask your pharmacist for a printout. If you have any questions, please ask your pharmacist. 2020 [employer]. * Plan of Care - Elfego Argueta RN - 11/08/2020 7:26 AM EDT Problem: Inadequate breathing pattern Goal: Respiratory rate and effor will be within normal limits for the plan Outcome: Progressing Goal: Patient will maintain patent airway Outcome: Progressing Problem: Sensory Perception is less than 4 (< 4) Goal: Improve Sensory Perception Outcome: Progressing Problem: Moisture is less than 4 (< 4) Goal: Eliminate Moisture Outcome: Progressing Problem: Activity is less than 4 (< 4) Goal: Improve Activity Outcome: Progressing Problem: Mobility is less than 4 (< 4) Goal: Improve Mobility Outcome: Progressing Problem: Nutrition is Less than 3 (< 3) Goal: Improve Nutrition Outcome: Progressing Problem: Friction Shear is less than 3 (< 3) Goal: Eliminate Friction Shear Outcome: Progressing Problem: Risk for Falls Goal: No falls during hospitalization Description: Patient will not fall during hospitalization. Outcome: Progressing Problem: Knowledge Deficit Goal: Knowledge - personal safety Description: Patient will verbalize understanding of fall prevention. Outcome: Progressing Problem: INJURY, RISK FOR Goal: Patient will not be injured from a fall during hospitalization Outcome: Progressing Problem: Knowledge Deficit Goal: Patient requires education regarding causes of high risk injury from a fal l Outcome: Progressing Goal: Patient's family requires education regarding causes of high risk injury f rom a fall Outcome: Progressing Problem: Spiritual Care Plan Goal: To assess spiritual care needs and hopes and mobilize spiritual resources for patients/families/caregivers that support/enhance quality of life related to hospitalization Description: To assess spiritual care needs and hopes and mobilize spiritual res ources for patients/families/caregivers that support/enhance quality of life rel ated to hospitalization. Outcome: Progressing * Interim Summary - Benjamin Mcnamara NP - 11/07/2020 10:52 PM EDT Interim Summary Per interim summary on 11/04/20 by Benjamin Mcnamara [employer] "Deborah Webb, 40 y.o.femalew/ PMH of sarcoidosis, history of substanc e abuse (on methadone), anxiety, frequent falls, GERD, & hypothyroidism, who presented to the ED s/p fall. She reported that she sustaining a ground-level fall at home after she stood-up and fell down. Shecomplained of excruciatingpain to herleft leg. Of note, she reports a history of multiple fractures in the past post falls. Has a hx of sarcoidosis but has not been taking steroids as prescribed since they cause her agitation. Upon arriva l, her lab work was significant for WBC 12.7, cr 1.36, H/H 10.7/12.7, TSH 16.7 a nd low free T4; increased levothyroxine dose to 175mcg (from 150mcg). Imaging sh owed left tibia and fibular shaft fracture. X-ray also showed anisolated med ial malleolus fracture with a well aligned tibiotalar joint (does have prior hx of ankle fracture. Orthopedic was consulted in the ED and applied cast and plann ed for surgery. Methadone was held pre-op and patient was started on a pain odin men both IV/PO. On 10/28, patient was taken to the OR and underwent IM Nail of le ft tibia shaft, closed treatement of fibula fracture with manipulation-Per Dr. Namrata jett. Post-op she was made toe touch weightbearing to the LLE. She received popli teal and femoral nerve block by anesthesia on 10/29. Addiction psychiatry consult ation post-operatively and transition back to chronic methadone therapy. Psych w as consulted and recommended to reduce trazodone to 50mg nightly and to stop Pra zosin 1mg nightly, they also recommended to orthostatic VS. Neurology was consul minda to rule out neurological cause for falls and they recommended tele and CT he ad; Tele was unremarkable and CT head was negative. Orthostatic vitals found to be positive with coughing, HR went up from 84 to 101 when changed position from sitting to standing. Neuro felt falls could be related to Coughing syncope (near syncope) and orthostatic hypotension (medications, dehydration) and agreered wi th medications changes recommended by psych. Neurology also told patient that sh e had Tardive Dyskinesia, psych felt her presentation is more of Akathisia rathe r than Tardive Dyskinesia and can be worked up as an outpatient; atarax increase d and Seroquel was disocntinued. Pain continued to be adequately controlled so n erve blocks were removed on 11/04. PT/OT were consulted and rec STR. TCU consulted and found not to be a candidate". Incision/sd on LLE were noted to have mi ld erythema and she was started on Bacitracin TID and Keflex. Neurology continue d to follow and referred patient to have autonomic testing done outpatient at [facility]. PT continued to work with the patient and recs changed to home with home PT. SW was consulted to help with arranging outpatient methadone with [facility]. Consults: ortho, PT/OT, pain medicine, addiction psych, TCU, SW, psych, neurgolo y Discharge planning: -Needs outpatient referral to pulm on discharge for hx of sarcodosis. Benjamin Mcnamara [employer] * Plan of Care - Deborah Alegria RN - 11/07/2020 11:00 AM EDT Problem: Inadequate breathing pattern Goal: Respiratory rate and effor will be within normal limits for the plan Outcome: Progressing Goal: Patient will maintain patent airway Outcome: Progressing Problem: Sensory Perception is less than 4 (< 4) Goal: Improve Sensory Perception Outcome: Progressing Problem: Moisture is less than 4 (< 4) Goal: Eliminate Moisture Outcome: Progressing Problem: Activity is less than 4 (< 4) Goal: Improve Activity Outcome: Progressing Problem: Mobility is less than 4 (< 4) Goal: Improve Mobility Outcome: Progressing Problem: Nutrition is Less than 3 (< 3) Goal: Improve Nutrition Outcome: Progressing Problem: Friction Shear is less than 3 (< 3) Goal: Eliminate Friction Shear Outcome: Progressing Problem: Risk for Falls Goal: No falls during hospitalization Description: Patient will not fall during hospitalization. Outcome: Progressing Problem: Knowledge Deficit Goal: Knowledge - personal safety Description: Patient will verbalize understanding of fall prevention. Outcome: Progressing Problem: INJURY, RISK FOR Goal: Patient will not be injured from a fall during hospitalization Outcome: Progressing Problem: Knowledge Deficit Goal: Patient requires education regarding causes of high risk injury from a fal l Outcome: Progressing Goal: Patient's family requires education regarding causes of high risk injury f rom a fall Outcome: Progressing Problem: Spiritual Care Plan Goal: To assess spiritual care needs and hopes and mobilize spiritual resources for patients/families/caregivers that support/enhance quality of life related to hospitalization Description: To assess spiritual care needs and hopes and mobilize spiritual res ources for patients/families/caregivers that support/enhance quality of life rel ated to hospitalization. Outcome: Progressing * Plan of Care - Deborah Alegria RN - 11/06/2020 1:24 PM EDT Problem: Inadequate breathing pattern Goal: Respiratory rate and effor will be within normal limits for the plan Outcome: Progressing Goal: Patient will maintain patent airway Outcome: Progressing Problem: Sensory Perception is less than 4 (< 4) Goal: Improve Sensory Perception Outcome: Progressing Problem: Moisture is less than 4 (< 4) Goal: Eliminate Moisture Outcome: Progressing Problem: Activity is less than 4 (< 4) Goal: Improve Activity Outcome: Progressing Problem: Mobility is less than 4 (< 4) Goal: Improve Mobility Outcome: Progressing Problem: Nutrition is Less than 3 (< 3) Goal: Improve Nutrition Outcome: Progressing Problem: Friction Shear is less than 3 (< 3) Goal: Eliminate Friction Shear Outcome: Progressing Problem: Risk for Falls Goal: No falls during hospitalization Description: Patient will not fall during hospitalization. Outcome: Progressing Problem: Knowledge Deficit Goal: Knowledge - personal safety Description: Patient will verbalize understanding of fall prevention. Outcome: Progressing Problem: INJURY, RISK FOR Goal: Patient will not be injured from a fall during hospitalization Outcome: Progressing Problem: Knowledge Deficit Goal: Patient requires education regarding causes of high risk injury from a fal l Outcome: Progressing Goal: Patient's family requires education regarding causes of high risk injury f rom a fall Outcome: Progressing Problem: Spiritual Care Plan Goal: To assess spiritual care needs and hopes and mobilize spiritual resources for patients/families/caregivers that support/enhance quality of life related to hospitalization Description: To assess spiritual care needs and hopes and mobilize spiritual res ources for patients/families/caregivers that support/enhance quality of life rel ated to hospitalization. Outcome: Progressing * Interim Summary - Benjamin Mcnamara NP - 11/04/2020 8:26 PM EDT Interim summary Deborah Webb, 40 y.o. female w/ PMH of sarcoidosis, history of substance abuse (on methadone), anxiety, frequent falls, GERD, & hypothyroidism, who presented to the ED s/p fall. She reported that she sustaining a ground-level fall at home after she stood-up and fell down. She complained of excruciating pain to her left leg. Of note, she reports a history of multiple fractures in the past post falls. Has a hx of sarcoidosis but has not been taking steroids as prescribed since they cause her agitation. Upon arrival, her lab work was significant for WBC 12.7, cr 1.36, H/H 10.7/12.7, TSH 16.7 and low free T4. Increased levothyroxine dose to 175mcg (from 150mcg) Imaging showed left tibia and fibular shaft fracture. X-ray also showed an isolated medial malleolus fracture with a well aligned tibiotalar joint (does have prior hx of ankle fracture. Orthopedic was consulted in the ED and applied cast and planned for surgery. Methadone was held pre-op and patient was started on a pain regimen both IV/PO. On 10/28, patient was taken to the OR and underwent IM Nail of left tibia shaft, closed treatement of fibula fracture with manipulation-Per Dr. Ervin. Post-op she was made Toe touch weightbearing as tolerated to the LLE. She received popl iteal and femoral nerve block by anesthesia on 10/29. Addiction psychiatry consul tation post-operatively and transition back to chronic methadone therapy post-op . Psych was consulted and recommended to reduce trazodone to 50mg nightly and to stop Prazosin 1mg nightly, they also recommended to orthostatic VS. Neurology w as consulted to rule out neurological cause for falls,and they recommended tele and CT head. Tele was unremarkable and CT head was negative. Orthostatic vitals found to be positive with coughing, hear rate went up from 84 to 101 when change d position from sitting to standing. Neuro felt falls could be related to Coughi ng syncope (near syncope) and orthostatic hypotension (medications, dehydration) and agreered with medications changes recommended by psych. Neurology also told patient that she had Tardive Dyskinesia, psych felt her presentation is more of Akathisia rather than Tardive Dyskinesia and can be worked up as an outpatient. Pain continued to be adequately controlled so nerve blocks were removed on 11/04. PT/OT were consulted during stay and recommended STR. TCU was consulted and she was found not to be a candidate. Consults: ortho, PT/OT, pain medicine, addiction psych, TCU, SW, psych, neurgolo y Discharge planning: -Needs outpatient referral to pulm on discharge for hx of sarcodosis. -Needs STR but barrier is being on methadone, CM working on this Benjamin Mcnamara [employer] * Plan of Care - Edna Headley RN - 11/03/2020 5:07 AM EDT Problem: Inadequate breathing pattern Goal: Respiratory rate and effor will be within normal limits for the plan Outcome: Progressing Goal: Patient will maintain patent airway Outcome: Progressing Problem: Sensory Perception is less than 4 (< 4) Goal: Improve Sensory Perception Outcome: Progressing Problem: Moisture is less than 4 (< 4) Goal: Eliminate Moisture Outcome: Progressing Problem: Activity is less than 4 (< 4) Goal: Improve Activity Outcome: Progressing Problem: Mobility is less than 4 (< 4) Goal: Improve Mobility Outcome: Progressing Problem: Nutrition is Less than 3 (< 3) Goal: Improve Nutrition Outcome: Progressing Problem: Friction Shear is less than 3 (< 3) Goal: Eliminate Friction Shear Outcome: Progressing Problem: Risk for Falls Goal: No falls during hospitalization Description: Patient will not fall during hospitalization. Outcome: Progressing Problem: Knowledge Deficit Goal: Knowledge - personal safety Description: Patient will verbalize understanding of fall prevention. Outcome: Progressing Problem: INJURY, RISK FOR Goal: Patient will not be injured from a fall during hospitalization Outcome: Progressing Problem: Knowledge Deficit Goal: Patient requires education regarding causes of high risk injury from a fal l Outcome: Progressing Goal: Patient's family requires education regarding causes of high risk injury f rom a fall Outcome: Progressing Problem: Spiritual Care Plan Goal: To assess spiritual care needs and hopes and mobilize spiritual resources for patients/families/caregivers that support/enhance quality of life related to hospitalization Description: To assess spiritual care needs and hopes and mobilize spiritual res ources for patients/families/caregivers that support/enhance quality of life rel ated to hospitalization. Outcome: Progressing * Plan of Care - Edna Headley RN - 11/01/2020 11:58 PM EDT Problem: Inadequate breathing pattern Goal: Respiratory rate and effor will be within normal limits for the plan Outcome: Progressing Goal: Patient will maintain patent airway Outcome: Progressing Problem: Sensory Perception is less than 4 (< 4) Goal: Improve Sensory Perception Outcome: Progressing Problem: Moisture is less than 4 (< 4) Goal: Eliminate Moisture Outcome: Progressing Problem: Activity is less than 4 (< 4) Goal: Improve Activity Outcome: Progressing Problem: Mobility is less than 4 (< 4) Goal: Improve Mobility Outcome: Progressing Problem: Nutrition is Less than 3 (< 3) Goal: Improve Nutrition Outcome: Progressing Problem: Friction Shear is less than 3 (< 3) Goal: Eliminate Friction Shear Outcome: Progressing Problem: Risk for Falls Goal: No falls during hospitalization Description: Patient will not fall during hospitalization. Outcome: Progressing Problem: Knowledge Deficit Goal: Knowledge - personal safety Description: Patient will verbalize understanding of fall prevention. Outcome: Progressing Problem: INJURY, RISK FOR Goal: Patient will not be injured from a fall during hospitalization Outcome: Progressing Problem: Knowledge Deficit Goal: Patient requires education regarding causes of high risk injury from a fal l Outcome: Progressing Goal: Patient's family requires education regarding causes of high risk injury f rom a fall Outcome: Progressing Problem: Spiritual Care Plan Goal: To assess spiritual care needs and hopes and mobilize spiritual resources for patients/families/caregivers that support/enhance quality of life related to hospitalization Description: To assess spiritual care needs and hopes and mobilize spiritual res ources for patients/families/caregivers that support/enhance quality of life rel ated to hospitalization. Outcome: Progressing * Benefit Check - Sher Caro - 10/29/2020 11:27 AM EDT Patient has [place] managed Medicaid-all services covered in full and require pr ior auth on file @[phone], number of days/visits based on medical necessity Acute: [facility] Acute SNF: [facility] Homecare: [facility], [facility] DME: Soni Coronado, [facility], [facility] * Plan of Care - Elfego Argueta RN - 10/29/2020 10:05 AM EDT Problem: Inadequate breathing pattern Goal: Respiratory rate and effor will be within normal limits for the plan Outcome: Progressing Goal: Patient will maintain patent airway Outcome: Progressing Problem: Sensory Perception is less than 4 (< 4) Goal: Improve Sensory Perception Outcome: Progressing Problem: Moisture is less than 4 (< 4) Goal: Eliminate Moisture Outcome: Progressing Problem: Activity is less than 4 (< 4) Goal: Improve Activity Outcome: Progressing Problem: Mobility is less than 4 (< 4) Goal: Improve Mobility Outcome: Progressing Problem: Nutrition is Less than 3 (< 3) Goal: Improve Nutrition Outcome: Progressing Problem: Friction Shear is less than 3 (< 3) Goal: Eliminate Friction Shear Outcome: Progressing Problem: Risk for Falls Goal: No falls during hospitalization Description: Patient will not fall during hospitalization. Outcome: Progressing Problem: Knowledge Deficit Goal: Knowledge - personal safety Description: Patient will verbalize understanding of fall prevention. Outcome: Progressing Problem: INJURY, RISK FOR Goal: Patient will not be injured from a fall during hospitalization Outcome: Progressing Problem: Knowledge Deficit Goal: Patient requires education regarding causes of high risk injury from a fal l Outcome: Progressing Goal: Patient's family requires education regarding causes of high risk injury f rom a fall Outcome: Progressing * Assessment & Plan Note - Rosa Maria Andrews OT - 10/29/2020 9:03 AM EDT Occupational Therapy Acute Care Functional Living Examination Medical Diagnosis: s/p IM Nail of left tibia shaft, closed treatement of fibula fracture with manipulation History of Present Illness: PER [facility] H&P: "Deborah Webb is a 40 y.o.female she stood up and fell from standing in her home today. She sustained a left tibial shaft fracture and was found from [facility]. Orthopedics was consulted for evaluation and management. ? On evaluation She complains of excruciating pain to her left leg. The onset of pain was immediate. She characterizes the pain as sharp and localized to the leg. The pain is exacerbated by movement. It is partially relieved with rest. She denies numbness or tingling in the extremity. Denies head strike and loss of consciousness.She denies injury to any other extremity. She does not take anticoagulant medications. ? She has a PMH significant for sarcoidosis, substance use disorder on methadone, obesity, PTSD, anxiety/depression. Patient reports prior fracture of the left ankle She denies any previous surgeries. Family History: non-contibutory" Date of Admission: 10/26/2020 5:54:00 PM Demographics: Age: 40 Gender: Female Past Medical History and Radiographics: Significant rehabilitation considerations: Anxiety? Bronchitis, chronic? Depression? GERD (gastroesophageal reflux disease)? Headache? Substance abuse? Thyroid disease Rehabilitation Precautions/Restrictions: Per Ortho note on 10/29/20: "Toe touch weightbearing as tolerated to the LLE" OOB with assistance SUBJECTIVE Premorbid Level of Activities of Daily Living: Independent in all. driving: doesnt drive. hx of falls before this fall: pt reports breaking ankle on the left side during another fall in 2019. Occupation: Pt not currently employed Social History: Patient lives alone. . If needed: Family member is willing to assist. Has cat to take care of. Home Environment: Patient reports she lives in a 3rd floor apartment with 2 flight of stairs with bilateral hand rails. Full bath. Walk-in shower. No grab bars. Patient reports she may be able to stay with her boyfriend who has a single flight of stairs into home with a unilateral hand rail. Equipment Owned: None. Pain: Patient currently complains of pain. Location: L LE . Patient describes pain as Constant. Aching. Verbal Scale: Patient reports a pain level of 10 out of 10. Will inform nurse. Will perform therapy only as tolerated. Pain Medication Today: yes. OBJECTIVE General Observation: Pt received supine in bed, HOB +pulse ox Bed alarm was on at start of session. Vital Signs: Within Normal Limits. UPPER EXTREMITY FUNCTION Hand Dominance: right. 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 Skin Integrity Screen: Visible areas grossly intact. Bandage intact to left lower extremity. Endurance: fair (+). Tone/Spasticity: Not assessed. Sensation: Grossly intact. Edema: No edema is present. LOWER EXTREMITY FUNCTION: Pt currently TDWB to LLE. Requires CGA to complete supine to sit due to needing assist managing L LE. Cognitive Screen: Responsiveness: Alert. Orientation: The patient is oriented to person, place and time. Following Commands: The patient is able to follow 3+ step commands Memory: Normal. Communications: Communicates wants and needs Executive Function: Problem Solving. WNL Attention: Normal. Cognitive Test Score: Not tested. Vision Screen: No apparent functional visual impairment. glasses: reading glasses only Perception: Perception was within normal limits with today's examination. Functional Mobility: Pt able to transition sit to stand with CGA for safety. Pt currently requires assistance for LB self-care due to pain Fine Motor Coordination: Upper extremity fine motor coordination is grossly intact. Gross Motor Coordination: Upper extremity gross motor coordination is intact. Balance: Maintains sitting static with verbal cues due to leaning to one side for UE support. Activities of Daily Living: Feeding: Modified independent. Observed patient during task. simulated task Grooming: Supervision. Observed patient during task. set up required Bathing - Upper Body: Supervision. Observed patient during task. set up required Bathing - Lower Body: Minimal assistance. Observed patient during task. Upper Body Dressing: Supervision. Observed patient during task. set up required Lower Body Dressing: Minimal assistance. Observed patient during task. Toileting: Supervision. Observed patient during task. Toilet Transfer: Contact guard assistance. Observed patient during task. Outcome Measure: [facility] "6 Clicks" Daily Activity Inpatient Short Form: Putting on and taking off regular lower body clothing: A little assistance (3) Bathing (including washing, rinsing, and drying): A little assistance (3) Toileting (including use of toilet, bedpan, or urinal): A little assistance (3) Putting on and taking off regular upper body clothing: A little assistance (3) Taking care of personal grooming such as brushing teeth: A little assistance (3) Eating meals: No assistance (4) Raw Score: 19 /24 Interventions: None provided today. Splinting: No splint issued today. Education: Educational needs: Treatment plan. Safety. Safe mobility. Repositioning techniques. Role of OT, discharge planning, precautions, importance of participation in therapy Barriers to Learning: Pain Learning Preference: Auditory. Demonstration. Mode of education provided: Explanation. Demonstration. Audience: Patient. Education Provided: Treatment plan, safety, safe mobility, repositioning techniques, role of OT, discharge planning, precautions, importance of participation in therapy . Response: Requires cues (auditory/physical). Needs practice/reinforcement. ASSESSMENT Moderate Complexity Evaluation: An occupational profile and medical and therapy history, which includes an expanded review of medical and/or therapy records and additional review of physical, cognitive, or psychosocial history related to current functional performance. An assessment(s) that identifies 3-5 performance deficits (i.e., relating to physical, cognitive, and psychosocial skills) that result in activity limitations and/or participation restrictions. Patient may present with comorbidities that affect occupational performance. Minimal to moderate modification of tasks or assistance (i.e., physical or verbal) with assessment(s) is necessary to enable patient to complete evaluation component. Clinical decision-making of moderate analytic complexity which includes an analysis of the occupational profile, analysis of data from detailed assessment(s), and consideration of several treatment options. Response to Evaluation: The session was tolerated fair, as evidenced by: Pain unchanged. Patient reported fatigue Chair alarm was on at end of session. Pain: Yes, pain is unchanged from start of today's treatment. Strengths: Motivated to improve function. Independent premorbid function. Goals: Patient's functional goals: to return home The patient's therapy goals are based on limitations/impairments in the following areas: Pain. ADLs / IADLs. Short Term Goals: 1. Pt will improve upper extremity muscle strength by one grade within 1 week. 2. Pt will complete toilet transfer with modified indepedence and AE as needed for safety within 1 week Nursing Home Goals: 1. Pt will complete full body ADLs including item retrieval with modified independence within 2 weeks PLAN Treatment Frequency, Duration and Interventions: Restorative Occupational Therapy recommended for 5x/week for 2 weeks Treatment is to include: Therapeutic Activity. Therapeutic Exercise. Self Care/Home Management. Equipment Provided: None issued this visit. Equipment Recommended: 3 in 1 commode. Recommended Occupational Therapy Follow Up: Upon acute care discharge, the following is currently recommended: Rehab vs home with assistance; pending progress with goals. Pain limiting functional mobility and LB self care at this time Recommended Consults: None currently. Development of Plan of Care: Participants included: Patient. Nurse. Goal Review Visit Number: 1 Visit Number: Today's visit is number 1 Program: Orthopedics (Therapist may be reached on [place] [employer] [facility]) SESSION: Duration: 53 CHARGES: - 0 Units - 0 Units - 0 Units - 0 Units 95188 - CHARGE - OT EVAL; MODERATE COMLEXITY 4 Units - ORDER - Occupational Therapy Treatment 1 Units - ORTHOPEDIC VISIT 1 Units - ORDER - OCCUPATIONAL THERAPY CONSULT 1 Units Total treatment minutes: 53.00 Minutes Electronically Signed by: URSULA Aguilera/Fadi, 10/29/2020 9:49:52 AM * Assessment & Plan Note - Shannon Linton PT - 10/29/2020 9:02 AM EDT Physical Therapy Acute Care Re-examination Document Type: An examination including a review of history and use of standardized tests and measures is required. , Revised plan of care using a standardized patient assessment instrument and/or measurable assessment of functional outcome. , Typically, 20 minutes are spent [id number] with the patient and/or family. Medical Diagnosis: s/p fall from standing - left mid shaft tibia fracture comminuted with segmental fibula fracture s/p 10/28/[address] Ervin PROCEDURE PERFORMED: 1. IM nail of left tibial shaft fracture. 2. Closed treatment of left fibular fracture with manipulation. CT 10/27/2020 [facility] well-corticated avulsion fracture fragment the medial condyle. Rehabilitation Precautions/Restrictions: Full code High fall risk TDWB LLE OOB with assistance SUBJECTIVE Patient Report: Patient reports she has to use the bathroom. Notes she cannot get comfortable due to her pain in L leg. Pain Medication Today: yes. Pain: Patient currently complains of pain. Location: L lower leg . Patient describes pain as Aching. Sharp. Shooting. Verbal Scale: Patient reports a pain level of 10 out of 10. Will inform nurse. Will perform therapy only as tolerated. OBJECTIVE General Observation: Patient appeared supine in bed in no apparent distress. Bed alarm was on at start of session. Range of Motion: BUE WFL RLE WFL, LLE impaired secondary to pain & josee wrap - able to achieve plantarflexion & pain. Strength: BUE & RLE WFL demonstrated through bed mobility, transfers, and ambulation. LLE impaired secondary to pain / recent surgery Skin Integrity Screen: Visible areas grossly intact. Bandage intact to left lower extremity from foot - mid thigh Tone/Spasticity: No relevant impairments. Sensation: Intact. Balance: Maintains sitting static balance with use of bilat UE and wide PHYLLIS; lateral leaning towards R side - able to correct with verbal cues Standing balance - able to maintain with use of bilat UE, RLE, and RW. No LOB noted during ambulation. Coordination: Upper and lower extremity gross motor coordination grossly intact. Endurance: fair. Patient becomes fatigued after short distance ambulation to rest room. Evidence by diaphoresis and increasing forward flexed posture. Mental Status: Orientation:The patient is oriented to person, place and time. Command Following:The patient is able to follow 3+ step commands Therapeutic/Functional Activities: Bed Mobility:Patient moves from supine to/from sit requiring contact guard assistance. Required CGA for RLE management. Uses bilat UE and HOB elevated. Transfers:Patient transferred sit to/from stand requiring contact guard assistance of 1 person. Patient used the following equipment: rolling walker. Patient used the following equipment: Gait belt - use per hospital policy. TTWB LLE Locomotion/Wheelchair: Not applicable for this patient at this time. Locomotion/Gait/Ambulation: Patient was contact guard with gait/ambulation of 1 person for 2x10ft . Patient requires the following assistive device(s): Gait belt. Rolling walker. TTWB LLE. Required verbal cuing for decreasing speed of ambulation and maintaining upright posture. Stairs: Not assessed. Patient very fatigued after using bathroom; asked to defer this task until next session. Vital Signs: Stable. Outcome Measures: [facility] "6 Clicks" Basic Mobility Inpatient Short Form: Turning over in bed: A lot of difficulty (2) Sitting down on and standing up from a chair with arms: Unable to perform (1) Moving from lying on back to sitting on the side of the bed: Unable to perform (1) Moving to and from a bed to a chair (including a wheelchair): A little help (3) Walking in hospital room: A little help (3) Climbing 3-5 steps with a railing: A little help (3) Raw Score 13 /24. Interventions: None provided today. Education: Mode of education provided: Explanation. Demonstration. Audience: Patient. Education Provided: TTWB, use of RW while maintaining precautions, safe transfer . Response: Applied knowledge. Verbalized understanding. Needs practice/reinforcement. ASSESSMENT Response to Visit: The session was tolerated well. Patient able to tolerate short distance ambulation with RW while maintaining LLE WB status. Able to perform transfers & bed mobility while requiring very little assistance. Limited primarily by pain. Chair alarm was on at end of session. Patient's heels off loaded at end of session. Call oseguera was in patient's reach at end of session. Pain: Yes, pain is unchanged from start of today's treatment. Other Rehabilitation Considerations: Patient's progress may be impaired by the following potential barriers: Orthopedic precautions. Limited caregiver availability. High levels of pain. Strengths: Cognition. Balance. Independent premorbid function. Motivated to improve function. Goals: Patient's functional goals: To return home. Short Term Goals: 1. Patient will independently perform a supine to sit transfer to the edge of the bed within 1 week. Status: Ongoing - patient requires CG for LLE management. Goal remains appropriate. 2. Patient will perform a sit to stand transfers to a rolling walker with modified independence within 1 week. Status: Ongoing - patient requiring CGA for transfers this date. Goal remains appropriate. 3. Patient will ambulate 50ft with a rolling walker with modified independence within 1 week. Status: Ongoing - patient currently ambulated 2x20ft with CGA. Goal remains appropriate. Nursing Home Goals: 1. Patient will negotiate 2 flight of stairs with modified independence within 2 weeks. Status: Ongoing - stair negotiation not yet assessed this date secondary to fatigue / pain. Goal remains appropriate. 2. Patient will independently self propel manual wheelchair 150ft within 2 weeks. Status: Ongoing - wheelchair mobility not assessed this date secondary to pain / fatigue. Goal remains appropriate. PLAN Treatment Frequency, Duration and Interventions: Restorative Physical Therapy is recommended for 1x a day for 2 weeks Treatment is to include: Gait Training. Therapeutic Activity. Therapeutic Exercise. Neuromuscular Re-education. Self Care/Home Management. Wheelchair Management Physical Performance Test. Equipment Provided: None issued this visit. Equipment Recommended: To be assessed. Recommended Physical Therapy Follow Up: Upon acute care discharge, the following is currently recommended: rehab vs home pending progress with gait & stairs. Unable to tolerate ambulation >10ft secondary to pain & fatigue. Recommended Consults: None currently. Development of Plan of Care: Participants included: pt. There was no change to plan of care today. Goal Review Visit Number: 1 Visit Number: Today's visit is number 2 Program: Orthopedics (Therapist may be reached on [place] [employer] [facility]) SESSION: Duration: 23 CHARGES: - 0 Units - 0 Units - 0 Units 74812 - CHARGE - PT RE-EVALUATION 2 Units - ORDER - Physical Therapy Treatment 1 Units - ORDER - Physical Therapy Treatment 1 Units - ORTHOPEDIC VISIT 1 Units Total treatment minutes: 23.00 Minutes Electronically Signed by: Shannon Linton PT, DPT, 10/29/2020 9:45:57 AM * Plan of Care - Gloria Moses RN - 10/29/2020 1:25 AM EDT Problem: Inadequate breathing pattern Goal: Respiratory rate and effor will be within normal limits for the plan Outcome: Progressing Goal: Patient will maintain patent airway Outcome: Progressing Problem: Sensory Perception is less than 4 (< 4) Goal: Improve Sensory Perception Outcome: Progressing Problem: Moisture is less than 4 (< 4) Goal: Eliminate Moisture Outcome: Progressing Problem: Activity is less than 4 (< 4) Goal: Improve Activity Outcome: Progressing Problem: Mobility is less than 4 (< 4) Goal: Improve Mobility Outcome: Progressing Problem: Nutrition is Less than 3 (< 3) Goal: Improve Nutrition Outcome: Progressing Problem: Friction Shear is less than 3 (< 3) Goal: Eliminate Friction Shear Outcome: Progressing Problem: Risk for Falls Goal: No falls during hospitalization Description: Patient will not fall during hospitalization. Outcome: Progressing Problem: Knowledge Deficit Goal: Knowledge - personal safety Description: Patient will verbalize understanding of fall prevention. Outcome: Progressing Problem: INJURY, RISK FOR Goal: Patient will not be injured from a fall during hospitalization Outcome: Progressing Problem: Knowledge Deficit Goal: Patient requires education regarding causes of high risk injury from a fal l Outcome: Progressing Goal: Patient's family requires education regarding causes of high risk injury f rom a fall Outcome: Progressing * Operative Note - Manjeet Ervin MD - 10/28/2020 12:08 PM EDT DATE OF SURGERY: 10/28/20 PREOPERATIVE DIAGNOSIS: left mid shaft tibia fracture comminuted with segmental fibula fracture. POSTOP DIAGNOSIS: left mid shaft tibia fracture comminuted with segmental fibula fracture. PROCEDURE PERFORMED: 1. IM nail of left tibial shaft fracture. 2. Closed treatment of left fibular fracture with manipulation. BUILDING INSULATION SUPERVISOR: Bran Patel MD ANESTHESIA: General. EBL: 50 mL. IMPLANTS USED: Synthes EX nail 315 mm x 10 mm. 4- 5 mm locking screws. COMPLICATIONS: None. INDICATIONS FOR PROCEDURE: Deborah is a 40 y.o.-year-old female status post fall . The patient was indicated for surgery for early stabilization of the left tib- fib for early range of motion, earlier weightbearing and anatomic reduction. Ris ks benefits alternatives were discussed with the patient. All questions were ans wered satisfaction. PROCEDURE: Patient seen in holding area where the left side i.e. correct side ma rked with indelible skin marker the patient was taken to operating room, intubated uneventfully. Theleft lower extremity was prepped and draped in normal fashion. The patient had received prophylactic antibiotics. Tourniquet placed on the patient's thigh [but not used during the case. The sloane ent's identity was verified and the patient's laterality. In order to stabilize the shaft, we decided to proceed with suprapatellar nailin g. An incision was made approximately 2 fingerbreadths superior to the top of the p atella, and skin and subcutaneous tissue were incised. The quadriceps tendon was identified and was divided in line with the fibers. This was split in line with the fibers and spread down posterior to the patella. The trocar was placed into the soft sleeve, and a starting point was identified slightly medial to the lateral tibial spine, and on the rollover, in line with t he shaft. This was advanced and drilled with a 13 mm reamer. The wire was then advanced to the physial scar obtaining a center/center location. With manipulation, traction and direct pressure the fibula was reduced and broug ht out to length. We will be treating this closed. The canal was progressively reamed from 8.5-11. We decided to choose a 10 mm aleks l, that is where we had obtained chatter. It was measured to be 315 mm. A 10 x 3 15 mm nail was passed uneventfully. Proximally, It was locked medial to lateral proximally in the dynamic, and in the static hole and distally 2 static screws w ere placed medial to lateral using perfect [place] technique. Skin and subcutaneous tissues were incised uneventfully and spread down with a f ine tonsil. With a 4.2 mm drill bit the medial lateral cortex was drilled, and t wo 5 mm screws were placed. Image intensification revealed no gapping at the lat eral cortex. The wounds were irrigated thoroughly and no end cap was used. The tendon was raheem sed with a running #1 Vicryl. The paratenon was closed with a running #1 Vicryl. Skin was closed 2-0 Vicryl and sd. A light sterile compressive dressing wa s placed on the wound. The poke hole incisions were closed with 2-0 Vicryl and s taples. A light sterile compressive dressing was placed on the distal wounds as well. The patient was brought to recovery room in stable condition. Left POSTOPERATIVE PLAN: The patient will be toe-touch weightbearing as tolerated on left lower extremity. We will keep the patient on 24 hours of Antibiotics, and DVT prophylaxis. I was present for the entire procedure. * Plan of Care - Susana Sanders RN - 10/28/2020 10:29 AM EDT Problem: Inadequate breathing pattern Goal: Respiratory rate and effor will be within normal limits for the plan Outcome: Progressing Goal: Patient will maintain patent airway Outcome: Progressing Problem: Sensory Perception is less than 4 (< 4) Goal: Improve Sensory Perception Outcome: Progressing Problem: Moisture is less than 4 (< 4) Goal: Eliminate Moisture Outcome: Progressing Problem: Activity is less than 4 (< 4) Goal: Improve Activity Outcome: Progressing Problem: Mobility is less than 4 (< 4) Goal: Improve Mobility Outcome: Progressing Problem: Nutrition is Less than 3 (< 3) Goal: Improve Nutrition Outcome: Progressing Problem: Friction Shear is less than 3 (< 3) Goal: Eliminate Friction Shear Outcome: Progressing Problem: Risk for Falls Goal: No falls during hospitalization Description: Patient will not fall during hospitalization. Outcome: Progressing Problem: Knowledge Deficit Goal: Knowledge - personal safety Description: Patient will verbalize understanding of fall prevention. Outcome: Progressing Problem: INJURY, RISK FOR Goal: Patient will not be injured from a fall during hospitalization Outcome: Progressing Problem: Knowledge Deficit Goal: Patient requires education regarding causes of high risk injury from a fal l Outcome: Progressing Goal: Patient's family requires education regarding causes of high risk injury f rom a fall Outcome: Progressing * Plan of Care - Gloria Moses RN - 10/28/2020 1:43 AM EDT Problem: Inadequate breathing pattern Goal: Respiratory rate and effor will be within normal limits for the plan Outcome: Progressing Goal: Patient will maintain patent airway Outcome: Progressing Problem: Sensory Perception is less than 4 (< 4) Goal: Improve Sensory Perception Outcome: Progressing Problem: Moisture is less than 4 (< 4) Goal: Eliminate Moisture Outcome: Progressing Problem: Activity is less than 4 (< 4) Goal: Improve Activity Outcome: Progressing Problem: Mobility is less than 4 (< 4) Goal: Improve Mobility Outcome: Progressing Problem: Nutrition is Less than 3 (< 3) Goal: Improve Nutrition Outcome: Progressing Problem: Friction Shear is less than 3 (< 3) Goal: Eliminate Friction Shear Outcome: Progressing Problem: Risk for Falls Goal: No falls during hospitalization Description: Patient will not fall during hospitalization. Outcome: Progressing Problem: Knowledge Deficit Goal: Knowledge - personal safety Description: Patient will verbalize understanding of fall prevention. Outcome: Progressing Problem: INJURY, RISK FOR Goal: Patient will not be injured from a fall during hospitalization Outcome: Progressing Problem: Knowledge Deficit Goal: Patient requires education regarding causes of high risk injury from a fal l Outcome: Progressing Goal: Patient's family requires education regarding causes of high risk injury f rom a fall Outcome: Progressing * Plan of Care - Deborah Alegria RN - 10/27/2020 10:04 AM EDT Problem: Inadequate breathing pattern Goal: Respiratory rate and effor will be within normal limits for the plan Outcome: Progressing Goal: Patient will maintain patent airway Outcome: Progressing Problem: Sensory Perception is less than 4 (< 4) Goal: Improve Sensory Perception Outcome: Progressing Problem: Moisture is less than 4 (< 4) Goal: Eliminate Moisture Outcome: Progressing Problem: Activity is less than 4 (< 4) Goal: Improve Activity Outcome: Progressing Problem: Mobility is less than 4 (< 4) Goal: Improve Mobility Outcome: Progressing Problem: Nutrition is Less than 3 (< 3) Goal: Improve Nutrition Outcome: Progressing Problem: Friction Shear is less than 3 (< 3) Goal: Eliminate Friction Shear Outcome: Progressing Problem: Risk for Falls Goal: No falls during hospitalization Description: Patient will not fall during hospitalization. Outcome: Progressing Problem: Knowledge Deficit Goal: Knowledge - personal safety Description: Patient will verbalize understanding of fall prevention. Outcome: Progressing Problem: INJURY, RISK FOR Goal: Patient will not be injured from a fall during hospitalization Outcome: Progressing Problem: Knowledge Deficit Goal: Patient requires education regarding causes of high risk injury from a fal l Outcome: Progressing Goal: Patient's family requires education regarding causes of high risk injury f rom a fall Outcome: Progressing * Assessment & Plan Note - Dwight Johnson, PT - 10/27/2020 9:24 AM EDT Physical Therapy Acute Care Examination Medical Diagnosis: left tibia and fibular shaft fracture medial malleolus fracture-patient reports prior history of ankle fracture on this side is possible this is old fracture we will obtain a CT of the ankle to better understand History of Present Illness: PER EPIC H&P: "Deborah Webb is a 40 y.o.female she stood up and fell from standing in her home today. She sustained a left tibial shaft fracture and was found from [facility]. Orthopedics was consulted for evaluation and management. ? On evaluation She complains of excruciating pain to her left leg. The onset of pain was immediate. She characterizes the pain as sharp and localized to the leg. The pain is exacerbated by movement. It is partially relieved with rest. She denies numbness or tingling in the extremity. Denies head strike and loss of consciousness.She denies injury to any other extremity. She does not take anticoagulant medications. ? She has a PMH significant for sarcoidosis, substance use disorder on methadone, obesity, PTSD, anxiety/depression. Patient reports prior fracture of the left ankle She denies any previous surgeries. Family History: non-contibutory" Date of Onset: Prior to admission Date of Admission: 10/26/2020 5:54:00 PM Demographics: Age: 40 Gender: Female Past Medical History and Radiographics: Significant rehabilitation considerations: ?Anxiety? ?Bronchitis, chronic? ?Depression? ?GERD (gastroesophageal reflux disease)? ?Headache? ?Substance abuse? ?Thyroid disease Rehabilitation Precautions/Restrictions: NWB LLE OOB with assistance SUBJECTIVE Mental Status: Orientation:The patient is oriented to person, place and time. Command Following:The patient is able to follow 3+ step commands Prior Functional Level: The patient reported the premorbid level of function was Independent with mobility/ADLs. Occupation: Patient is not currently employed. Social History: Patient lives alone. . If needed: Family member is willing to assist. Friend is willing to assist. Home Environment: Patient reports she lives in a 3rd floor apartment with 2 flight of stairs with bilateral hand rails. Full bath. Walk-in shower. No grab bars. Patient reports she may be able to stay with her boyfriend who has a single flight of stairs into home with a unilateral hand rail. Equipment Owned: None. Pain: Patient has no complaints of pain currently. Pain Medication Today: yes. OBJECTIVE General Observation: Patient appeared supine in bed in no apparent distress. No bed alarm noted at start of session. Range of Motion:Patient demonstrates gross bilateral upper and right lower extremity range of motion within functional limits. Range of motion of left lower extremity not assessed. Strength:Patient demonstrates gross bilateral upper and right lower extremity strength within functional limits. Strength of left lower extremity not assessed. Skin Integrity Screen: Visible areas grossly intact. Bandage intact to left lower extremity. Tone/Spasticity: No relevant impairments. Sensation: Normal. Balance: Not assessed. Endurance: Not assessed. Coordination: Upper and lower extremity gross motor coordination grossly intact. Therapeutic/Functional Activities: Bed Mobility: Not assessed. Transfers: Transfers were not assessed at this time. Locomotion/Wheelchair: Not assessed. Locomotion/Gait/Ambulation: Not assessed. Stairs: Not assessed. Vital Signs: Stable. Outcome Measures: [facility] "6 Clicks" Basic Mobility Inpatient Short Form: Turning over in bed: Unable to perform (1) Sitting down on and standing up from a chair with arms: Unable to perform (1) Moving from lying on back to sitting on the side of the bed: Unable to perform (1) Moving to and from a bed to a chair (including a wheelchair): Total assistance (1) Walking in hospital room: Total assistance (1) Climbing 3-5 steps with a railing: Total assistance (1) Raw Score 6 /24. Interventions: None provided today. Education: Educational needs: Bed mobility. Functional transfers. Gait. Safety. Plan of care. Treatment plan. Safe mobility. Role of acute PT. Precautions. Safe mobility techniques. Barriers to Learning: No barriers. Learning Preference: Auditory. Mode of education provided: Explanation. Audience: Patient. Education Provided: Bed mobility. Functional transfers. Gait. Safety. Plan of care. Treatment plan. Safe mobility. Role of acute PT. Precautions. Safe mobility techniques. Response: Indicates understanding. Verbalized understanding. ASSESSMENT Low Complexity Evaluation: Clinical decision-making of low complexity using standardized patient assessment instrument and/or measurable assessment of functional outcome. Response to Evaluation: The session was tolerated fair, as evidenced by: Mobility assessment deferred at this time due to patient scheduled to go down to OR later today. Bed alarm was on at end of session. Call oseguera was in patient's reach at end of session. Pain: Patient has no complaints of pain currently. Other Rehabilitation Considerations: Patient's progress may be impaired by the following potential barriers: Medical condition. Support Structure: Support structure is fair. Friend willing to assist patient. Strengths: Independent premorbid function. Goals: Patient's functional goals: To return home. The patient's therapy goals are based on limitations/impairments in the following areas: Balance. Bed Mobility. Gait. Transfers. Stairs/Curbs/Environmental barrier negotiation. Short Term Goals: 1. Patient will independently perform a supine to sit transfer to the edge of the bed within 1 week. 2. Patient will perform a sit to stand transfer to a rolling walker with modified independence within 1 week. 3. Patient will ambulate 50ft with a rolling walker with modified independence within 1 week. Medical Lab Assistant Goals: 1. Patient will negotiate 2 flight of stairs with modified independence within 2 weeks. 2. Patient will independently self propel manual wheelchair 150ft within 2 weeks. PLAN Treatment Frequency, Duration and Interventions: Restorative Physical Therapy is recommended for 1x a day for 2 weeks Treatment is to include: Gait Training. Neuromuscular Re-education. Therapeutic Activity. Therapeutic Exercise. Self Care/Home Management. Equipment Provided: None issued this visit. Equipment Recommended: To be assessed. Recommended Physical Therapy Follow Up: Upon acute care discharge, the following is currently recommended: Unable to determine until after mobility assessment. Recommended Consults: Occupational Therapy. Development of Plan of Care: Participants included: Patient. Goal Review Visit Number: 1 Visit Number: Today's visit is number 1 Program: Orthopedics (Therapist may be reached on [place] [employer]) SESSION: Duration: 14 CHARGES: - 0 Units 92976 - CHARGE - PT EVAL; LOW COMPLEXITY 1 Units - ORDER - Physical Therapy Treatment 1 Units - ORTHOPEDIC VISIT 1 Units - ORDER - PHYSICAL THERAPY CONSULT 1 Units - STAT ONLY VISIT 1 Units Total treatment minutes: 14.00 Minutes Electronically Signed by: Dwight Johnson PT, DPT, 10/27/2020 11:33:56 AM documented in this encounter Plan of Treatment Order Schedule Name Type Priority Associated Diag noses Ordered: 11/08/2020 Referral to home health Outpatient Routine Leg fr acture, left, Referral closed, initial encounter Health Maintenance Due Date Last Done [...] on patient's age to complete this topic HIB Vaccines Aged Out No longer eligible [...] Area Manufactur er 03/05/2029 [id number] / / [id number] Nail Tib Gianfranco Prx Bnd [id number] - Left: Tibia SYNT HES [id number] [place] Implanted: Qty: 1 on 10/28/2020 by Manjeet Ervin MD at OR 5E [id number] / / Screw T25 Lk Star 5.0mm 34mm - Left: Tibia SYNTHE S [id number] [employer] [place] Implanted: Qty: 2 on 10/28/2020 by Manjeet Ervin MD at OR 5E [id number] / / Screw T25 Lk Star 5.0mm 28mm - Left: Tibia SYNTHE S [id number] [employer] [place] Implanted: Qty: 1 on 10/28/2020 by Manjeet Ervin MD at OR 5E [id number] / / Screw T25 Lk Star 5.0mm 46mm - Left: Tibia SYNTHE S [id number] [employer] [place] Implanted: Qty: 1 on 10/28/2020 by Manjeet Ervin MD at OR [facility] documented as of this encounter Procedures Comments Procedure Name Priority Date/Time Associated Diag nosis BASIC METABOLIC PANEL Routine 11/06/2020 8:[address] HEAD WITHOUT CONTRAST Routine 11/04/2020 40022 1:00 PM EDT COMPREHENSIVE METABOLIC Routine 11/03/2020 PANEL 6:44 AM EDT DRUGS OF ABUSE, URINE Routine 11/02/2020 1:04 PM EDT CBC Routine 10/31/2020 4:03 AM EDT BASIC METABOLIC PANEL Routine 10/31/2020 4:03 AM EDT CBC AND DIFFERENTIAL Routine 10/30/2020 2:22 AM EDT BASIC METABOLIC PANEL Routine 10/30/2020 2:22 AM EDT EKG 12-LEAD - CMAXX 10/29/2020 REPORT 3:33 PM EDT EKG 12-LEAD - CMAXX 10/29/2020 REPORT 3:33 PM EDT EKG 12-LEAD Routine 10/29/2020 3:33 PM EDT [place] INJECTION AA&/STRD Routine 10/29/2020 SCIATIC NERVE CONT NFS 1:44 PM EDT CATH CBC AND DIFFERENTIAL Routine 10/29/2020 12:11 AM EDT BASIC METABOLIC PANEL Routine 10/29/2020 12:11 AM EDT [place] INJECTION AA&/STRD Routine 10/28/2020 FEMORAL NERVE 2:28 PM EDT XR TIBIA 2 VIEWS PORT-OR Routine 10/28/2020 Leg f racture, left, [address]3985 11:55 AM EDT closed, initial enc ounter ORIF TIBIA 10/28/2020 LEFT TIBIA SHAFT FX 10:32 AM EDT CBC AND DIFFERENTIAL Routine 10/28/2020 12:47 AM EDT BASIC METABOLIC PANEL Routine 10/28/2020 12:[address] LOWER EXTREMITY Urgent 10/27/2020 WITHOUT CONTRAST 81122 12:41 AM EDT POCT ISTAT BHCG Routine 10/26/2020 8:37 PM EDT XR TIBIA 58123 Routine 10/26/2020 8:17 PM EDT TSH Routine 10/26/2020 8:06 PM EDT T4, FREE Routine 10/26/2020 8:06 PM EDT RESPIRATORY PATHOGEN Routine 10/26/2020 PANEL 7:12 PM EDT COVID-19 PCR Routine 10/26/2020 7:12 PM EDT PARTIAL THROMBOPLASTIN Routine 10/26/2020 TIME (PTT) 7:12 PM EDT PROTIME INR STAT 10/26/2020 7:12 PM EDT CBC AND DIFFERENTIAL Routine 10/26/2020 7:12 PM EDT CK Routine 10/26/2020 7:12 PM EDT BASIC METABOLIC PANEL STAT 10/26/2020 7:12 PM EDT XR FEMUR, MINIMUM OF 2 STAT 10/26/2020 VIEWS 45497 7:08 PM EDT XR TIBIA 88793 STAT 10/26/2020 7:08 PM EDT XR PELVIS 1-2 VIEWS 04670 STAT 10/26/2020 7:08 PM EDT XR KNEE 4 OR MORE VIEWS STAT 10/26/2020 86190 7:08 PM EDT XR FOOT 3 OR MORE VIEWS STAT 10/26/2020 28156 7:08 PM EDT XR CHEST FRONTAL ONLY STAT 10/26/2020 16079 7:08 PM EDT XR ANKLE 3 OR MORE VIEWS STAT 10/26/2020 73109 7:08 PM EDT documented in this encounter Results * Basic Metabolic Panel (11/06/2020 8:13 AM EDT) Bicarbonate 26 22 - 29 mmol/L [facility] Chloride 101 98 - 107 mmol/L [facility] Creatinine 1.12 (H) 0.50 - 0.90 mg/dL [facility] Glucose 112 70 - 140 mg/dL [facility] Potassium 3.8 3.4 - 5.1 mmol/L [facility] Sodium 140 136 - 145 mmol/L [facility] Blood Urea 11 6 - 20 mg/dL [facility] Nitrogen [facility] Clin Pathology Anion Gap 13 8 - 15 mmol/L [facility] Osmolality, Harini 291 275.0 - 300.0 [facility] mosm/kg [facility] Clin Pathology BUN/Cre Ratio 10 [facility] Calcium 9.3 8.6 - 10.0 mg/dL [facility] GFR Non 62 >60 mL/min/1.73m2 [place] [address] Med [facility] Clin CDK-EPI Pathology GFR 71 >60 mL/min/1.73m2 [facility] 2008 [facility] CKD-EPI Pathology Specimen Plasma Performing Organization Address City/State/ZIP Code P le Number [facility] [address] [place], [place] [address] PATHOLOGY [facility] [address] [place], [place] [address] Clin Pathology * CT Head without Contrast (11/04/2020 1:00 PM EDT) Specimen Impressions Performed At Impression: Unremarkable unenhanced CT of the brain. [facility] RADIOLOGY Narrative Performed At Indication: CT head w/o contrast to assess for lesson [facility] RADIOLOGY Exam: CT HEAD WITHOUT CONTRAST [id number] Technique: Unenhanced 5.0 mm and thin axial sections were obtained. Aut omated dose lowering techniques and/or adjustment according to patient size we re utilized for this exam. Findings: The ventricles and sulci are normal in size for age. There is no evidence of mass-effect or midline shif t. There is no evidence of acute cortical infarction or intracranial hemorrhage. There are no extracerebral collections. The visualized paranasal sinuses are cl ear. Procedure Note Interface, Received Via [facility] [facility] - 11/04/2020 2:42 PM EDT Indication: CT head w/o contrast to assess for lesson Exam: CT HEAD WITHOUT CONTRAST [id number] Technique: Unenhanced 5.0 mm and thin axial sections were obtained. Automated dose lowering techniques and/or adjustment according to patient size were utilized for this exam. Findings: The ventricles and sulci are normal in size for age. There is no evidence of mass-effect or midline shift. There is no evidence of acute cortical infarction or intracranial hemorrhage. There are no extracerebral collections. The visualized paranasal sinuses are clear. Impression: Unremarkable unenhanced CT of the brain. Performing Organization Address City/State/ZIP Code P le Number [facility] RADIOLOGY [address] [place] [address] * Comprehensive Metabolic Panel (11/03/2020 6:44 AM EDT) Albumin 4.2 3.5 - 5.2 g/dL [facility] Bilirubin, 0.6 <1.2 mg/dL [facility] Total [facility] Pathology Calcium 9.3 8.6 - 10.0 mg/dL [facility] Chloride 99 98 - 107 mmol/L [facility] Creatinine 1.14 (H) 0.50 - 0.90 mg/dL [facility] Glucose 106 70 - 140 mg/dL [facility] Alkaline 93 35 - 104 U/L [facility] Phosphatase [facility] Univ Clin Pathology Potassium 4.1 3.4 - 5.1 mmol/L [facility] Total Protein 7.3 6.4 - 8.3 g/dL [facility] Sodium 136 136 - 145 mmol/L [facility] AST/SGO 17 <32 U/L [facility]ology Blood Urea 10 6 - 20 mg/dL [facility] Univ Clin Pathology Osmolality, Harini 281 275.0 - 300.0 [facility] mosm/kg [facility] Clin Pathology BUN/Cre Ratio 9 [facility] Bicarbonate 24 22 - 29 mmol/L [facility] ALT/SGP <5 <33 U/L [facility] Anion Gap 12 8 - 15 mmol/L [facility] GFR Non 60 (L) >60 mL/min/1.73m2 [facility] [employer] [place] 2008 [facility] Clin CDK-EPI Pathology GFR 70 >60 mL/min/1.73m2 [facility] 2008 [facility] CKD-EPI Pathology Specimen Plasma Performing Organization Address [facility] P le Number [facility] [address] [place], [place] [address] [address] Clin Pathology * Drugs Of Abuse, Urine (11/02/2020 1:04 PM EDT) Amphetamine Negative Negative Cutoff 1000 [facility]ology Benzodiazepine Negative Negative Cutoff 300 [facility] Cannabinoids Negative Negative Cutoff 50 [facility] Urine [facility]ology Cocaine Negative Negative Cutoff 300 [facility] Methadone Positive (A) Negative Cutoff 300 [facility] (Dolophine) Comment: [facility] (NOTE) Pathology Positive results are presumptive and unconfirmed;confirmatory testing can be ordered at the [facility] at [address] [place] [address] or [facility] at [phone] within 5 days of collection. Opiates Negative Negative Cutoff 300 [facility]ology Oxycodone Positive (A) Negative Cutoff 100 [facility] Comment: [facility] (NOTE) Pathology Positive results are presumptive and unconfirmed;confirmatory testing can be ordered at the [facility] at [address] [place] [address] or [facility] at [phone] within 5 days of collection. Fentanyl Negative Negative Cutoff 1 [facility] Univ Clin Pathology Drug (NOTE) [facility] Interpretation Comment: [facility] Results below the indicated Pathology cutoff (ng/mL), are reported as "Negative." Note: for medical purposes only; not valid for legal or employment testing. Specimen Urine Performing Organization Address City/[facility] Code P le Number [facility] [address] [place], [place] [address] [address] Clin Pathology * Basic Metabolic Panel (10/31/2020 4:03 AM EDT) Bicarbonate 23 22 - 29 mmol/L [facility] Clin Pathology Chloride 99 98 - 107 mmol/L [facility]ology Creatinine 1.13 (H) 0.50 - 0.90 mg/dL [facility] Glucose 91 70 - 140 mg/dL [facility] Potassium 3.2 (L) 3.4 - 5.1 mmol/L [facility] Sodium 134 (L) 136 - 145 mmol/L [facility] Blood Urea 8 6 - 20 mg/dL [facility] Nitrogen [facility] Clin Pathology Anion Gap 12 8 - 15 mmol/L [facility] Osmolality, Harini 277 275.0 - 300.0 [facility] mosm/kg [facility] Clin Pathology BUN/Cre Ratio 7 [facility]ology Calcium 8.9 8.6 - 10.0 mg/dL [facility] GFR Non 61 >60 mL/min/1.73m2 [facility] 2008 [facility] Clin CDK-EPI Pathology GFR 71 >60 mL/min/1.73m2 [facility] 2008 [facility] CKD-EPI Pathology Specimen Plasma Performing Organization Address [facility] P le Number [facility] [address] [place], [place] [address] [address] Clin Pathology * CBC (10/31/2020 4:03 AM EDT) White Blood 4.8 4.00 - 10.00 10*3/uL [facility] ate Cell [facility] Clin Pathology Red Blood Cell 2.88 (L) 4.10 - 5.30 10*6/uL [facility] te [facility] Clin Pathology Hemoglobin 8.8 (L) 11.5 - 15.5 g/dL [facility] Hematocrit 25.8 (L) 36.0 - 45.0 % [facility] Mean Cell 89.5 80.0 - 96.0 fL [facility] Volume [facility] Univ Clin Pathology Mean Cell 30.7 27.0 - 33.0 pg [facility] Hemoglobin [facility] Univ Clin Pathology Mean Cell Hgb 34.2 32 - 36 g/dL [facility] Univ Clin Pathology Red Cell Dist 16.7 (H) 11.5 - 14.5 % [facility] Width [facility] Clin Pathology Platelet Count 178 150 - 400 10*3/uL [facility] Pathology Specimen EDTA Whole Blood Performing Organization Address City/State/ZIP Code P le Number [facility] [address] [place], [place] [address] PATHOLOGY [place] [address] [address] [place], [place] [address] Clin Pathology * Basic Metabolic Panel (10/30/2020 2:22 AM EDT) Bicarbonate 23 22 - 29 mmol/L [facility] Chloride 99 98 - 107 mmol/L [facility] Creatinine 1.13 (H) 0.50 - 0.90 mg/dL [facility] Glucose 93 70 - 140 mg/dL [facility]ology Potassium 3.5 3.4 - 5.1 mmol/L [facility] Sodium 134 (L) 136 - 145 mmol/L [facility] Blood Urea 6 6 - 20 mg/dL [facility] Clin Pathology Anion Gap 12 8 - 15 mmol/L [facility]ology Osmolality, Harini 275 275.0 - 300.0 [facility] mosm/kg [facility] Clin Pathology BUN/Cre Ratio 6 [facility]ology Calcium 8.7 8.6 - 10.0 mg/dL [facility] Pathology GFR Non 61 >60 mL/min/1.73m2 [facility] 2008 [facility] CDK-EPI Pathology GFR 71 >60 mL/min/1.73m2 [facility] 2008 Med [facility] Clin CKD-EPI Pathology Specimen Plasma Performing Organization Address City/State/ZIP Code P le Number [facility] [address] [place], [place] [address] [address] Clin Pathology * CBC and Differential (10/30/2020 2:22 AM EDT) White Blood 5.7 4.00 - 10.00 10*3/uL [facility] ate Cell [facility] Clin Pathology Red Blood Cell 2.96 (L) 4.10 - 5.30 10*6/uL [facility] te [facility] Univ Clin Pathology Hemoglobin 9.0 (L) 11.5 - 15.5 g/dL [facility] Pathology Hematocrit 26.4 (L) 36.0 - 45.0 % [facility] Pathology Mean Cell 89.4 80.0 - 96.0 fL [facility] Volume [facility] Univ Clin Pathology Mean Cell 30.4 27.0 - 33.0 pg [facility] Hemoglobin [facility] Univ Clin Pathology Mean Cell Hgb 34.0 32 - 36 g/dL [facility] Univ Clin Pathology Red Cell Dist 16.9 (H) 11.5 - 14.5 % [facility] Width [facility] Univ Clin Pathology Platelet Count 185 150 - 400 10*3/uL [facility] Clin Pathology Differential Automated Diff [facility] Type Med Univ Clin Pathology Neutrophil 75 % [facility] Clin Pathology Lymphocyte 14 % [facility] Clin Pathology Monocyte 7 % [facility] Clin Pathology Eosinophil 3 % [facility] Pathology Basophil 1 % [facility] Pathology Abs Neutrophil 4.35 1.80 - 7.00 10*3/uL [facility] Clin Pathology Abs Lymphocyte 0.82 (L) 1.20 - 4.00 10*3/uL [facility] Univ Clin Pathology Abs Monocyte 0.40 0.00 - 0.80 10*3/uL [facility] Clin Pathology Abs Eosinophil 0.15 0.00 - 0.50 10*3/uL [facility] Univ Clin Pathology Abs Basophil 0.03 0.00 - 0.20 10*3/uL [facility] Univ Clin Pathology Nucleated Red 0 0 - 0 /100{WBCs} [facility] Blood Cells [facility] Clin Pathology Specimen EDTA Whole Blood Performing Organization Address City/State/ZIP Code P le Number [facility] [address] [place], [place] [address] PATHOLOGY [facility] [address] [place], [place] [address] Clin Pathology * EKG 12-LEAD - CMAXX REPORT (10/29/2020 3:33 PM EDT) Narrative Performed At This result has an attachment that is n ot available. * EKG 12-LEAD - CMAXX REPORT (10/29/2020 3:33 PM EDT) Narrative Performed At This result has an attachment that is n ot available. * EKG 12 Lead (10/29/2020 3:33 PM EDT) Specimen Narrative Performed At Ventricular Rate: [facility] EKG 85 BPM Atrial Rate: 85 BPM P-R Interval: 132 ms QRS Duration: 96 ms Q-T Interval: 386 ms QTC Calculation(Bazett): 459 ms P [place]: 47 degrees R [place]: 12 degrees T [place]: -32 degrees : SINUS RHYTHM : T WAVE ABNORMALITY, CONSIDER INFERIOR ISCHEMIA : T WAVE ABNORMALITY, CONSIDER LITTLE-L ATERAL ISCHEMIA : ABNORMAL ECG : NO PREVIOUS ECGS AVAILABLE : Confirmed by Yosvany Thompson ([id number]) on 10/30/2020 10:03:51 PM Procedure Note Interface, [facility] - 10/30/2020 10:03 PM EDT Ventricular Rate: 85 BPM Atrial Rate: 85 BPM P-R Interval: 132 ms QRS Duration: 96 ms Q-T Interval: 386 ms QTC Calculation(Bazett): 459 ms P [place]: 47 degrees R [place]: 12 degrees T [place]: -32 degrees : SINUS RHYTHM : T WAVE ABNORMALITY, CONSIDER INFERIOR ISCHEMIA : T WAVE ABNORMALITY, CONSIDER LITTLE-LATERAL ISCHEMIA : ABNORMAL ECG : NO PREVIOUS ECGS AVAILABLE : Confirmed by Yosvany Thompson ([id number]) on 10/30/2020 10:03:51 PM Performing Organization Address City/State/ZIP Code P le Number [facility] EKG * Peripheral Nerve Block (10/29/2020 1:44 PM EDT) Narrative Performed At Yeyo Akers MD EXTERNAL NON-INTERFACED LAB 10/29/2020 1:47 PM Peripheral Nerve Block Patient Location: Block Room Start Time: 10/29/2020 1:12 PM End Time: 10/29/2020 1:32 PM Reason for Block: post-op pain manageme nt Charge: Ultrasound Guidance, Other Aylin pheral Nerve /Branch Injection and Sciatic Nerve Continuous Staff: Anesthesiologist: Aixa Costa MD Resident/STOCK CHECKERER: Yeyo Akers MD Performed By: Resident/STOCK CHECKERER Checklist: patient identified, IV check ed, site marked, risks and benefits discussed, surgical consent, monitors a nd equipment checked, pre-op evaluation, timeout performed Peripheral Nerve Block: Patient Position: Supine Patient Status: Sedated Prep: chloraprep, Monitoring: Blood Pressure Monitoring, Cardiac Mon itor and Continuous Pulse Oximetry Block Type: Saphenous and Popliteal Laterality: Left Injection Technique: Catheter Block Technique: ultrasound guided Local anesthetic injected: Ropivacaine Strength: 0.25 % Dose: 40 ml Needle: Needle Type: Echogenic Needle Gauge: 18 G Needle Length: 4 in Needle Insertion Depth: 6 cm Catheter Type: Open End Catheter Size: 20 G Catheter at Skin Depth: 2.5 cm Secured: Tegaderm Assessment: Injection Assessment: Negative Aspiration for Heme, No Pares thesia on Injection, Incremental Injection and Lo harini Visualized Surrounding Nerve on Ultrasound Patient Condition: Patient Tolerated Pr ocedure Well and Vital Signs Stable Throughout Notes: Sedated with 2 mg IV versed. Poplitea l catheter 3.5 cm from skin, saphenous 2.5 cm form skin. 25 ml ropi (0.25%) given via popliteal, 10 ml given via saphenous Performing Organization Address City/[facility]/ZIP Code P el Number EXTERNAL NON-INTERFACED LAB * Basic Metabolic Panel (10/29/2020 12:11 AM EDT) Bicarbonate 26 22 - 29 mmol/L [facility] Clin Pathology Chloride 103 98 - 107 mmol/L [facility] Pathology Creatinine 1.05 (H) 0.50 - 0.90 mg/dL [facility]ology Glucose 97 70 - 140 mg/dL [facility] Pathology Potassium 3.2 (L) 3.4 - 5.1 mmol/L [facility]ology Sodium 139 136 - 145 mmol/L [facility] Pathology Blood Urea 8 6 - 20 mg/dL [facility] Clin Pathology Anion Gap 10 8 - 15 mmol/L [facility] Pathology Osmolality, Harini 286 275.0 - 300.0 [facility] mosm/kg [facility] Clin Pathology BUN/Cre Ratio 8 [facility] Pathology Calcium 8.3 (L) 8.6 - 10.0 mg/dL [facility] Clin Pathology GFR Non 67 >60 mL/min/1.73m2 [facility] Upstat e [place] 2008 Med [facility] Clin CDK-EPI Pathology GFR 77 >60 mL/min/1.73m2 [facility] 2008 Med [facility] Clin CKD-EPI Pathology Specimen Plasma Performing Organization Address City/[facility]/ZIP Code P le Number [facility] CLINICAL [address] [place], [place] [address] PATHOLOGY [facility] [address] [place], [place] [address] Clin Pathology * CBC and Differential (10/29/2020 12:11 AM EDT) White Blood 6.3 4.00 - 10.00 10*3/uL [facility] Clin Path[facility] Red Blood Cell 2.81 (L) 4.10 - 5.30 10*6/uL [facility] Clin Pathology Hemoglobin 8.7 (L) 11.5 - 15.5 g/dL [facility] Pathology Hematocrit 24.8 (L) 36.0 - 45.0 % [facility] Clin Pathology Mean Cell 88.3 80.0 - 96.0 fL [facility] Volume [facility] Clin Pathology Mean Cell 30.9 27.0 - 33.0 pg [facility] Hemoglobin [facility] Clin Pathology Mean Cell Hgb 34.9 32 - 36 g/dL [facility] Clin Pathology Red Cell Dist 17.1 (H) 11.5 - 14.5 % [facility] Width [facility] Clin Pathology Platelet Count 183 150 - 400 10*3/uL [facility] Clin Pathology Differential Automated Diff [facility] Type [facility] Clin Pathology Neutrophil 80 % [facility] Clin Pathology Lymphocyte 14 % [facility] Pathology Monocyte 5 % [facility] Pathology Eosinophil 1 % [facility] Clin Pathology Basophil 0 % [facility] Pathology Abs Neutrophil 5.00 1.80 - 7.00 10*3/uL [facility] Clin Pathology Abs Lymphocyte 0.87 (L) 1.20 - 4.00 10*3/uL [facility] Clin Pathology Abs Monocyte 0.30 0.00 - 0.80 10*3/uL [facility] Clin Pathology Abs Eosinophil 0.07 0.00 - 0.50 10*3/uL [facility] Clin Pathology Abs Basophil 0.02 0.00 - 0.20 10*3/uL [facility] Clin Pathology Nucleated Red 0 0 - 0 /100{WBCs} [facility] Blood Cells [facility] Clin Pathology Specimen EDTA Whole Blood Performing Organization Address City/State/ZIP Code P le Number [facility] CLINICAL [address] [place], [place] 132[address] PATHOLOGY [facility] Univ [address] [address] 10 Clin Pathology * Peripheral Nerve Block (10/28/2020 2:28 PM EDT) Narrative Performed At David Velasco MD EXTERNAL NON-INTERFACED LAB 10/28/2020 2:51 PM Peripheral Nerve Block Patient Location: PACU Start Time: 10/28/2020 2:00 PM End Time: 10/28/2020 2:28 PM Reason for Block: post-op pain manageme nt, procedure for pain Charge: Femoral Nerve Single Staff: Anesthesiologist: Al Olivares MD Resident/STOCK CHECKERER: David Velasco MD Performed By: Resident/STOCK CHECKERER Checklist: patient identified, IV check ed, site marked, risks and benefits discussed, surgical consent, monitors a nd equipment checked, pre-op evaluation, timeout performed Peripheral Nerve Block: Patient Position: Supine Patient Status: Awake Prep: chloraprep, Monitoring: Blood Pressure Monitoring, Cardiac Mon itor, Continuous Pulse Oximetry and Heart Rate Block Type Other: Adductor canal block Laterality: Left Injection Technique: Single Shot Block Technique: ultrasound guided Local anesthetic injected: Ropivacaine Strength: 0.5 % Dose: 20 ml Needle: Needle Type: Echogenic Catheter Type: Open End Test Dose: Negative Test Dose Volume: 3 cc's Secured: Tegaderm Assessment: Injection Assessment: Incremental Injection Paresthesia Pain: None Patient Condition: Patient Tolerated Pr ocedure Well and Vital Signs Stable Throughout Notes: Needle placed and initially no heme a spirated. Following placement of catheter heme was aspirated and patient endorsed metallic taste in mouth. Catheter removed, patient was agreeable to trying again later possibly, though also noted some numbness in her leg with pain relief. Performing Organization Address City/State/ZIP Code P le Number EXTERNAL NON-INTERFACED LAB * XR Tibia 2 Views Port-OR Left (10/28/2020 11:55 AM EDT) Specimen Narrative Performed At [facility] RADIOLOGY Portable left tibia in the operating ro om dated 10/28/2020. REASON FOR STUDY: Fracture. FINDINGS: The C-arm was utilized in the operating room for assistance in internal stabilization of a distal tibi al shaft fracture. Alignment achieved appears to be near-anatomic. Segmental fractures the fibula are also identified. Bone detail and overall [id number] a re rather limited on the 8 images saved from this procedure. Total fluoroscopy time for the study wa s 181.9 seconds. Procedure Note Interface, Received Via [place] [facility] - 10/29/2020 7:33 AM EDT Portable left tibia in the operating room dated 10/28/2020. REASON FOR STUDY: Fracture. FINDINGS: The C-arm was utilized in the operating room for assistance in internal stabilization of a distal tibial shaft fracture. Alignment achieved appears to be near-anatomic. Segmental fractures the fibula are also identified. Bone detail and overall [id number] are rather limited on the 8 images saved from this procedure. Total fluoroscopy time for the study was 181.9 seconds. Performing Organization Address City/[facility]/ZIP Code P le Number [facility] RADIOLOGY [address] [place] [address] * Basic Metabolic Panel (10/28/2020 12:47 AM EDT) Bicarbonate 24 22 - 29 mmol/L [facility] Pathology Chloride 105 98 - 107 mmol/L [facility] Pathology Creatinine 1.09 (H) 0.50 - 0.90 mg/dL [facility] Pathology Glucose 93 70 - 140 mg/dL [facility] Pathology Potassium 3.9Comment: Hemolyzed 3.4 - 5.1 mmol/L [facility] Clin Pathology Sodium 141 136 - 145 mmol/L [facility] Clin Pathology Blood Urea 11 6 - 20 mg/dL [facility] Clin Pathology Anion Gap 12 8 - 15 mmol/L [facility] Clin Pathology Osmolality, Harini 291 275.0 - 300.0 [facility] mosm/kg Med Univ Clin Pathology BUN/Cre Ratio 10 [facility] Clin Pathology Calcium 9.1 8.6 - 10.0 mg/dL [facility] Clin Pathology GFR Non 64 >60 mL/min/1.73m2 [facility] Upstat e [place] 2008 Med Univ Clin CDK-EPI Pathology GFR 74 >60 mL/min/1.73m2 [facility] [place] 2008 Med [facility] Clin CKD-EPI Pathology Specimen Plasma Performing Organization Address City/[facility]/ZIP Code P le Number [facility] CLINICAL [address] [place], [place] [address] [address] Clin Pathology * CBC and Differential (10/28/2020 12:47 AM EDT) White Blood 8.0 4.00 - 10.00 10*3/uL [facility] Clin Pathology Red Blood Cell 3.58 (L) 4.10 - 5.30 10*6/uL [facility] Clin Pathology Hemoglobin 11.1 (L) 11.5 - 15.5 g/dL [facility] Pathology Hematocrit 32.2 (L) 36.0 - 45.0 % [facility] Clin Pathology Mean Cell 89.8 80.0 - 96.0 fL [facility] Volume [facility] Clin Pathology Mean Cell 30.9 27.0 - 33.0 pg [facility] Hemoglobin [facility] Clin Pathology Mean Cell Hgb 34.4 32 - 36 g/dL [facility] Clin Pathology Red Cell Dist 17.1 (H) 11.5 - 14.5 % [facility] Width [facility] Clin Pathology Platelet Count 211 150 - 400 10*3/uL [facility] Clin Pathology Differential Manual Diff [facility] Type [facility] Clin Pathology Neutrophil 75 % [facility] Clin Pathology Lymphocyte 15 % [facility] Pathology Monocyte 7 % [facility] Pathology Eosinophil 2 % [facility] Pathology Abs Neutrophil 6.04 1.80 - 7.00 10*3/uL [facility] Clin Pathology Abs Lymphocyte 1.21 1.20 - 4.00 10*3/uL [facility] Clin Pathology Abs Monocyte 0.53 0.00 - 0.80 10*3/uL [facility] Clin Pathology Abs Eosinophil 0.15 0.00 - 0.50 10*3/uL [facility] Clin Pathology Metamyelocyte 1 % [facility] Pathology Abs 0.07 (H) 0 - 0 10*3/uL [facility] Metamyelocyte [facility] Clin Pathology Elliptocytes 1+ [facility] Pathology Poikilocytosis 2+ [facility] Pathology Tear Drop RBC 1+ [facility] Pathology Specimen EDTA Whole Blood Performing Organization Address City/State/ZIP Code P le Number [facility] CLINICAL [address] [place] [address] PATHOLOGY [facility] [address] [place], [place] [address] Clin Pathology * CT Lower Extremity without Contrast Left Joint, Ankle (10/27/2020 12:41 AM EDT) Specimen Joint, Ankle Narrative Performed At PROCEDURE INFORMATION: [facility] RADIOLOGY Exam: CT Left Lower Extremity Without C ontrast, Ankle Exam date and time: 10/26/2020 11:57 PM Age: 40 years old Clinical indication: Unspecified fractu re of left lower leg, initial encounter for closed fracture; Pain; Other: Media l malleous fracture assicated with tiba fracture TECHNIQUE: Imaging protocol: CT of the Left lower extremity without contrast was performed. Exam focused on the ankle. Radiation optimization: All CT scans at this facility use at least one of these dose optimization techniques: automated exposure control; mA and/or kV adjustment per patient size (includes t argeted exams where dose is matched to clinical indication); or iterative elsy nstruction. COMPARISON: CR XR ANKLE 3 OR MORE VIEWS [id number] 2020 6:31 PM FINDINGS: Bones/joints: Interval placement of ove rlying fiberglass cast. Slightly comminuted minimally displaced fracture s of the mid to distal tibia and fibula. Old well-corticated avulsion fracture f ragment the medial condyle. Soft tissues: Diffuse soft tissue swell ing around the visualized distal calf. IMPRESSION: 1. Interval placement of overlying fibe rglass cast. 2. Slightly comminuted minimally displa sheldon fractures of the mid to distal tibia and fibula. 3. Diffuse soft tissue swelling around the visualized distal calf. 4. Old well-corticated avulsion fractur e fragment the medial condyle. THIS DOCUMENT HAS BEEN ELECTRONICALLY S IGNED BY MALISSA BUSTAMANTE MD Procedure Note Interface, Received Via [place] [facility] - 10/27/2020 1:21 AM EDT PROCEDURE INFORMATION: Exam: CT Left Lower Extremity Without Contrast, Ankle Exam date and time: 10/26/2020 11:57 PM Age: 40 years old Clinical indication: Unspecified fracture of left lower leg, initial encounter for closed fracture; Pain; Other: Medial malleous fracture assicated with tiba fracture TECHNIQUE: Imaging protocol: CT of the Left lower extremity without contrast was performed. Exam focused on the ankle. Radiation optimization: All CT scans at this facility use at least one of these dose optimization techniques: automated exposure control; mA and/or kV adjustment per patient size (includes targeted exams where dose is matched to clinical indication); or iterative reconstruction. COMPARISON: CR XR ANKLE 3 OR MORE VIEWS [id number] 10/26/2020 6:31 PM FINDINGS: Bones/joints: Interval placement of overlying fiberglass cast. Slightly comminuted minimally displaced fractures of the mid to distal tibia and fibula. Old well-corticated avulsion fracture fragment the medial condyle. Soft tissues: Diffuse soft tissue swelling around the visualized distal calf. IMPRESSION: 1. Interval placement of overlying fiber glass cast. 2. Slightly comminuted minimally displac ed fractures of the mid to distal tibia and fibula. 3. Diffuse soft tissue swelling around t he visualized distal calf. 4. Old well-corticated avulsion fracture fragment the medial condyle. THIS DOCUMENT HAS BEEN ELECTRONICALLY SIGNED BY MALISSA BUSTAMANTE MD Performing Organization Address [facility] P le Number [facility] RADIOLOGY [address] [place] [address] * POCT i-STAT BHCG (10/26/2020 8:37 PM EDT) [facility] i-STAT BHCG <5 <5 [IU]/L [facility] Comment: Hospital POC (NOTE) Levels between 5 and 25 [IU]/L may indicate early and should be repeated after 48 hours. Specimen Whole Blood Performing Organization Address [facility] P le Number POINT OF CARE TEST [address] [place], [place] [id number] [place] [address] POC [address] [place] [address] * XR Tibia Left (10/26/2020 8:17 PM EDT) Specimen Narrative Performed At [facility] RADIOLOGY PROCEDURE INFORMATION: Exam: XR Left Tibia and Fibula Exam date and time: 10/26/2020 8:08 PM Age: 40 years old Clinical indication: Other: Post splint TECHNIQUE: Imaging protocol: XR Left tibia and fib adelfo. Views: 2 views. COMPARISON: CR XR TIBIA [id number] 10/26/2020 6:31 PM FINDINGS: Bones/joints: There are displaced fract ures of the mid to distal shafts of the tibia and fibula. Displacement is about 1 shaft width. There is also a mildly displaced fracture of proximal fibular shaft. Soft tissues: Anterior swelling. IMPRESSION: No significant change in the displaced tib fib shaft fractures post cast. THIS DOCUMENT HAS BEEN ELECTRONICALLY S IGNED BY MANUELITO REYES MD Procedure Note Interface, Received Via [place] [facility] - 10/26/2020 8:57 PM EDT PROCEDURE INFORMATION: Exam: XR Left Tibia and Fibula Exam date and time: 10/26/2020 8:08 PM Age: 40 years old Clinical indication: Other: Post splint TECHNIQUE: Imaging protocol: XR Left tibia and fibula. Views: 2 views. COMPARISON: CR XR TIBIA [id number] 10/26/2020 6:31 PM FINDINGS: Bones/joints: There are displaced fractures of the mid to distal shafts of the tibia and fibula. Displacement is about 1 shaft width. There is also a mildly displaced fracture of proximal fibular shaft. Soft tissues: Anterior swelling. IMPRESSION: No significant change in the displaced tib fib shaft fractures post cast. THIS DOCUMENT HAS BEEN ELECTRONICALLY SIGNED BY MANUELITO ERYES MD Performing Organization Address City/[facility]/ZIP Code P le Number [facility] RADIOLOGY [address] [place] [address] * T4, free (10/26/2020 8:06 PM EDT) Free Thyroxine 0.44 (L) 0.93 - 1.70 ng/dL [facility] Clin Pathology Specimen Plasma Performing Organization Address City/[facility] P le Number [address] [address] Clin Pathology * TSH (10/26/2020 8:06 PM EDT) TSH 16.720 (H) 0.27 - 4.20 u[IU]/mL [facility] Clin Pathology Specimen Plasma Performing Organization Address [facility]/ZIP Code P le Number [address] [address] Clin Pathology * Respiratory Pathogen Panel (10/26/2020 7:12 PM EDT) Special Request None [facility] Pathology Respiratory PCR PCR Results [facility] Panel [facility] Clin Pathology Culture/Results See Labs Tab for 2019 nCoV BRINDA Upsta te RT-PCR results [facility] Clin Pathology Adenovirus Not Detected [facility] Pathology Coronavirus Not Detected [facility] 229E [facility] Clin Pathology Coronavirus Not Detected [facility] HKU1 [facility] Clin Pathology Coronavirus Not Detected [facility] NL63 [facility] Clin Pathology Coronavirus Not Detected [facility] OC43 [facility] Clin Pathology Human Not Detected [facility] Metapneumovirus [facility] Clin Pathology Rhinovirus/ Not Detected [facility] Enterovirus [facility] Clin Pathology Influenza A Not Detected [facility] Pathology Influenza B Not Detected [facility] Pathology Parainfluenza Not Detected [facility] virus 1 [facility] Clin Pathology Parainfluenza Not Detected [facility] virus 2 [facility] Clin Pathology Parainfluenza Not Detected [facility] virus 3 [facility] Clin Pathology Parainfluenza Not Detected [facility] virus 4 [facility] Clin Pathology RSV Not Detected [facility] Pathology Bordetella Not Detected [facility] pertussis [facility] Clin Pathology Chlamydia Not Detected [facility] pneumoniae [facility] Clin Pathology Mycoplasma Not Detected [facility] pneumoniae [facility] Clin Pathology Bordetella Not Detected [facility] parapertussis [facility] Clin Pathology Specimen Nasopharyngeal Swab Performing Organization Address City/[facility]/ZIP Code P le Number [facility] CLINICAL [address] [place], [place] [address] PATHOLOGY [facility] [address] [place], [place] [address] Clin Pathology * CK (10/26/2020 7:12 PM EDT) CK 143 20 - 180 U/L [facility] Clin Pathology Specimen Plasma Performing Organization Address City/State/ZIP Code P le Number [facility] CLINICAL [address] [place], [place] [address] [address] Clin Pathology * COVID-19 PCR (10/26/2020 7:12 PM EDT) Specimen Nasopharyngeal Swab [facility] Description CLINICAL PATHOLOGY SARS CoV-2 2019 nCoV Real-Time RT-PCR: 2019 nCoV Real-Piotr e [facility] NOT DETECTED RT-PCR: NOT DETECTED [facility] Clin Pathology Assay performed Test performed using Selerityl.v. stabler memorial hospitalBureaux A Partager [facility] urbina Respiratory Panel. Med [facility] Clin Pathology First COVID-19 UNKNOWN [facility] Test? CLINICAL PATHOLOGY Employed in UNKNOWN [facility] healthcare CLINICAL setting? PATHOLOGY Symptomatic for NO [facility] COVID-19 as CLINICAL defined by CDC? PATHOLOGY Date of symptom UNKNOWN [facility] onset? CLINICAL ([id number]) PATHOLOGY Hospitalized UNKNOWN [facility] for COVID-19? CLINICAL PATHOLOGY Admitted to ICU UNKNOWN [facility] for COVID-19? CLINICAL PATHOLOGY Resident in a UNKNOWN [facility] CLINICAL (group) care PATHOLOGY setting? ? NO [facility] CLINICAL PATHOLOGY Specimen Nasopharyngeal Swab Performing Organization Address [facility] Code P le Number [address] [address] Clin Pathology * Partial Thromboplastin Time (PTT) (10/26/2020 7:12 PM EDT) PTT 29.4 24.0 - 33.0 s [facility] Clin Pathology Specimen Plasma Performing Organization Address [facility] P le Number [address] [address] Clin Pathology * Protime-INR (10/26/2020 7:12 PM EDT) PT Patient 13.4 11.6 - 14.0 s [facility] Clin Pathology Int'l 1.06Comment: Routine intensity BRINDA U pstate Normalized oral anticoagulation INR is Med Univ Clin Ratio typically 2.0-3.0. Target INR Patholo gy must be clinically individualized. Specimen Plasma Performing Organization Address [facility] P le Number [address] [address] Clin Pathology * CBC and Differential (10/26/2020 7:12 PM EDT) White Blood 12.7 (H) 4.00 - 10.00 10*3/uL BRINDA Upst ate Cell [facility] Clin Pathology Red Blood Cell 3.46 (L) 4.10 - 5.30 10*6/uL [facility] Pathology Hemoglobin 10.7 (L) 11.5 - 15.5 g/dL [facility] Pathology Hematocrit 31.3 (L) 36.0 - 45.0 % [facility] Pathology Mean Cell 90.6 80.0 - 96.0 fL [facility] Volume [facility] Clin Pathology Mean Cell 30.9 27.0 - 33.0 pg [facility] Hemoglobin [facility] Clin Pathology Mean Cell Hgb 34.1 32 - 36 g/dL [facility] Conc [facility] Clin Pathology Red Cell Dist 17.7 (H) 11.5 - 14.5 % [facility] Width [facility] Clin Pathology Platelet Count 171 150 - 400 10*3/uL [facility] Pathology Differential Automated Diff [facility] Type [facility] Clin Pathology Neutrophil 89 % [facility] Clin Pathology Lymphocyte 6 % [facility] Pathology Monocyte 5 % [facility] Pathology Eosinophil 0 % [facility] Pathology Basophil 0 % [facility] Clin Pathology Abs Neutrophil 11.29 (H) 1.80 - 7.00 10*3/uL [facility] Clin Pathology Abs Lymphocyte 0.70 (L) 1.20 - 4.00 10*3/uL [facility] Clin Pathology Abs Monocyte 0.58 0.00 - 0.80 10*3/uL [facility] Clin Pathology Abs Eosinophil 0.05 0.00 - 0.50 10*3/uL [facility] Clin Pathology Abs Basophil 0.04 0.00 - 0.20 10*3/uL [facility] Clin Pathology Nucleated Red 0 0 - 0 /100{WBCs} [facility] Blood Cells [facility] Clin Pathology Specimen EDTA Whole Blood Performing Organization Address City/State/ZIP Code P le Number [facility] CLINICAL [address] [place], [place] [address] PATHOLOGY [facility] [address] [place], [place] [address] Clin Pathology * Basic Metabolic Panel (10/26/2020 7:12 PM EDT) Bicarbonate 22 22 - 29 mmol/L [facility] Clin Pathology Chloride 104 98 - 107 mmol/L [facility] Pathology Creatinine 1.36 (H) 0.50 - 0.90 mg/dL [facility] Pathology Glucose 107 70 - 140 mg/dL [facility] Clin Pathology Potassium 4.3 3.4 - 5.1 mmol/L [facility] Sodium 139 136 - 145 mmol/L [facility] Blood Urea 9 6 - 20 mg/dL [facility] Anion Gap 13 8 - 15 mmol/L [facility] Osmolality, Harini 287 275.0 - 300.0 [facility] mosm/kg [facility] BUN/Cre Ratio 7 [facility] Calcium 8.7 8.6 - 10.0 mg/dL [facility] GFR Non 49 (L) >60 mL/min/1.73m2 [facility] 2008 Med [facility] CDK-EPI Pathology GFR 57 (L) >60 mL/min/1.73m2 [facility] 2008 [facility] CKD-EPI Pathology Specimen Plasma Performing Organization Address City/State/ZIP Code P le Number [facility] [address] [place], [place] [address] PATHOLOGY [facility] [address] [place], [place] [address] Clin Pathology * XR Foot 3 or More Views Left (10/26/2020 7:08 PM EDT) Specimen Impressions Performed At IMPRESSION: [facility] 1. Multiple fractures involving the tibia and fibula as described above. 2. There is transverse fracture of the me dial malleolus. 3. Limited evaluation of posterior mall eolus. 4. Suboptimal visualization of sacrum d ue to obscuration by overlying bowel. Narrative Performed At INDICATION: Fall, left lower extremity pain, deformit y to the left lower lung. [facility] TECHNIQUE: 2 AP views of the pelvis was obtained. AP and lateral views of the left femur were obtained. 5 radiographic views of the left knee w ere obtained. 4 radiographic views of the left tibia were obtained. 5 radiographic views of the left ankle were obtained. 4 radiographic views of the left foot w ere obtained. COMPARISON: None. FINDINGS: Pelvis: The pelvic ring appears intact. There is no evidence of an acute fracture or dislocation.Bilateral hip joints kayla ear unremarkable without evidence of joint space narrowing. The lower lumbar spine is unremarkable. The sacrum is obscured by overlying bowel.Moderate am ount of formed stool within the distal colon and rectum.The surrounding soft t issues are unremarkable. FEMUR: No acute fracture or dislocation is seen. The femoral head remains seated within the acetabulum. The osseous structures are aligned. The joint spaces are maint ained. No soft tissue swelling is appreciated. No radio opaque foreign titus dy is seen. KNEE: There is no evidence of joint eff usion There is no evidence of an acute fracture or dislocation. The medial, la teral and patello-femoral joint compartments are without evidence of na rrowing. The alignment is anatomical. The surrounding soft tissues are unremarkab le. There are no bony lesions identified. There is no evidence of ossific loose b odies identified within the joint space. TIBIA/FIBULA: There is a oblique fractu re through the mid diaphysis of the tibia with anterolateral translation and valg us angulation of the distal tibia. Similarly, there is an oblique fracture through the mid diaphysis of the fibula with anterolateral translation valgus a ngulation of the distal fibula. There is a compound fracture in the neck of the fibula with anterior and superior translation of the distal segment.There is normal bone mineralization. There is soft tissue edema adjacent to the descr ibed fractures.There is no radiopaque foreign body. ANKLE: Evaluation is limited by overlyi ng material. Limited evaluation of the posterior malleolus. The ankle mortise and talar dome are intact. There is a transverse fracture of the medial malle olus. The visualized joint space is well maintained. The alignment is anatomical . The periarticular soft tissues are unremarkable. FOOT: Evaluation is limited by overlyin g material. The interphalangeal, metatarsophalangeal, tarsometatarsal an d mid tarsal joints spaces appear unremarkable.There is no evidence of ac cheesh-na fracture or dislocation.The alignment is anatomical.The surrounding soft tiss ues are unremarkable. Procedure Note Interface, Received Via [facility] - 10/26/2020 8:26 PM EDT INDICATION: Fall, left lower extremity pain, deformity to the left lower lung. TECHNIQUE: 2 AP views of the pelvis was obtained. AP and lateral views of the left femur were obtained. 5 radiographic views of the left knee we re obtained. 4 radiographic views of the left tibia w ere obtained. 5 radiographic views of the left ankle w ere obtained. 4 radiographic views of the left foot we re obtained. COMPARISON: None. FINDINGS: Pelvis: The pelvic ring appears intact.There is no evidence of an acute fracture or dislocation.Bilateral hip joints appear unremarkable without evidence of joint space narrowing. The lower lumbar spine is unremarkable. The sacrum is obscured by overlying bowel.Moderate amount of formed stool within the distal colon and rectum.The surrounding soft tissues are unremarkable. FEMUR: No acute fracture or dislocation is seen. The femoral head remains seated within the acetabulum. The osseous structures are aligned. The joint spaces are maintained. No soft tissue swelling is appreciated. No radio opaque foreign body is seen. KNEE: There is no evidence of joint effusion There is no evidence of an acute fracture or dislocation. The medial, lateral and patello-femoral joint compartments are without evidence of narrowing. The alignment is anatomical. The surrounding soft tissues are unremarkable. There are no bony lesions identified. There is no evidence of ossific loose bodies identified within the joint space. TIBIA/FIBULA: There is a oblique fracture through the mid diaphysis of the tibia with anterolateral translation and valgus angulation of the distal tibia. Similarly, there is an oblique fracture through the mid diaphysis of the fibula with anterolateral translation valgus angulation of the distal fibula. There is a compound fracture in the neck of the fibula with anterior and superior translation of the distal segment.There is normal bone mineralization. There is soft tissue edema adjacent to the described fractures.There is no radiopaque foreign body. ANKLE: Evaluation is limited by overlying material. Limited evaluation of the posterior malleolus. The ankle mortise and talar dome are intact. There is a transverse fracture of the medial malleolus. The visualized joint space is well maintained. The alignment is anatomical. The periarticular soft tissues are unremarkable. FOOT: Evaluation is limited by overlying material. The interphalangeal, metatarsophalangeal, tarsometatarsal and mid tarsal joints spaces appear unremarkable.There is no evidence of acute fracture or dislocation.The alignment is anatomical.The surrounding soft tissues are unremarkable. IMPRESSION: 1. Multiple fractures involving the tib ia and fibula as described above. 2. There is transverse fracture of the medial malleolus. 3. Limited evaluation of posterior malle olus. 4. Suboptimal visualization of sacrum du e to obscuration by overlying bowel. Performing Organization Address City/State/ZIP Code P le Number [facility] [address] [place] [address] * XR Ankle 3 or More Views Left (10/26/2020 7:08 PM EDT) Specimen Impressions Performed At IMPRESSION: [facility] 1. Multiple fractures involving the tibia and fibula as described above. 2. There is transverse fracture of the me dial malleolus. 3. Limited evaluation of posterior mall eolus. 4. Suboptimal visualization of sacrum d ue to obscuration by overlying bowel. Narrative Performed At [facility] INDICATION: Fall, left lower extremity pain, deformity to the left lower lung. TECHNIQUE: 2 AP views of the pelvis was obtained. AP and lateral views of the left femur were obtained. 5 radiographic views of the left knee w ere obtained. 4 radiographic views of the left tibia were obtained. 5 radiographic views of the left ankle were obtained. 4 radiographic views of the left foot w ere obtained. COMPARISON: None. FINDINGS: Pelvis: The pelvic ring appears intact. There is no evidence of an acute fracture or dislocation.Bilateral hip joints kayla ear unremarkable without evidence of joint space narrowing. The lower lumbar spine is unremarkable. The sacrum is obscured by overlying bowel.Moderate am ount of formed stool within the distal colon and rectum.The surrounding soft t issues are unremarkable. FEMUR: No acute fracture or dislocation is seen. The femoral head remains seated within the acetabulum. The osseous structures are aligned. The joint spaces are maint ained. No soft tissue swelling is appreciated. No radio opaque foreign titus dy is seen. KNEE: There is no evidence of joint eff usion There is no evidence of an acute fracture or dislocation. The medial, la teral and patello-femoral joint compartments are without evidence of na rrowing. The alignment is anatomical. The surrounding soft tissues are unremarkab le. There are no bony lesions identified. There is no evidence of ossific loose b odies identified within the joint space. TIBIA/FIBULA: There is a oblique fractu re through the mid diaphysis of the tibia with anterolateral translation and valg us angulation of the distal tibia. Similarly, there is an oblique fracture through the mid diaphysis of the fibula with anterolateral translation valgus a ngulation of the distal fibula. There is a compound fracture in the neck of the fibula with anterior and superior translation of the distal segment.There is normal bone mineralization. There is soft tissue edema adjacent to the descr ibed fractures.There is no radiopaque foreign body. ANKLE: Evaluation is limited by overlyi ng material. Limited evaluation of the posterior malleolus. The ankle mortise and talar dome are intact. There is a transverse fracture of the medial malle olus. The visualized joint space is well maintained. The alignment is anatomical . The periarticular soft tissues are unremarkable. FOOT: Evaluation is limited by overlyin g material. The interphalangeal, metatarsophalangeal, tarsometatarsal an d mid tarsal joints spaces appear unremarkable.There is no evidence of ac cheesh-na fracture or dislocation.The alignment is anatomical.The surrounding soft tiss ues are unremarkable. Procedure Note Interface, Received Via [facility] - 10/26/2020 8:26 PM EDT INDICATION: Fall, left lower extremity pain, deformity to the left lower lung. TECHNIQUE: 2 AP views of the pelvis was obtained. AP and lateral views of the left femur were obtained. 5 radiographic views of the left knee we re obtained. 4 radiographic views of the left tibia w ere obtained. 5 radiographic views of the left ankle w ere obtained. 4 radiographic views of the left foot we re obtained. COMPARISON: None. FINDINGS: Pelvis: The pelvic ring appears intact.There is no evidence of an acute fracture or dislocation.Bilateral hip joints appear unremarkable without evidence of joint space narrowing. The lower lumbar spine is unremarkable. The sacrum is obscured by overlying bowel.Moderate amount of formed stool within the distal colon and rectum.The surrounding soft tissues are unremarkable. FEMUR: No acute fracture or dislocation is seen. The femoral head remains seated within the acetabulum. The osseous structures are aligned. The joint spaces are maintained. No soft tissue swelling is appreciated. No radio opaque foreign body is seen. KNEE: There is no evidence of joint effusion There is no evidence of an acute fracture or dislocation. The medial, lateral and patello-femoral joint compartments are without evidence of narrowing. The alignment is anatomical. The surrounding soft tissues are unremarkable. There are no bony lesions identified. There is no evidence of ossific loose bodies identified within the joint space. TIBIA/FIBULA: There is a oblique fracture through the mid diaphysis of the tibia with anterolateral translation and valgus angulation of the distal tibia. Similarly, there is an oblique fracture through the mid diaphysis of the fibula with anterolateral translation valgus angulation of the distal fibula. There is a compound fracture in the neck of the fibula with anterior and superior translation of the distal segment.There is normal bone mineralization. There is soft tissue edema adjacent to the described fractures.There is no radiopaque foreign body. ANKLE: Evaluation is limited by overlying material. Limited evaluation of the posterior malleolus. The ankle mortise and talar dome are intact. There is a transverse fracture of the medial malleolus. The visualized joint space is well maintained. The alignment is anatomical. The periarticular soft tissues are unremarkable. FOOT: Evaluation is limited by overlying material. The interphalangeal, metatarsophalangeal, tarsometatarsal and mid tarsal joints spaces appear unremarkable.There is no evidence of acute fracture or dislocation.The alignment is anatomical.The surrounding soft tissues are unremarkable. IMPRESSION: 1. Multiple fractures involving the tib ia and fibula as described above. 2. There is transverse fracture of the medial malleolus. 3. Limited evaluation of posterior malle olus. 4. Suboptimal visualization of sacrum du e to obscuration by overlying bowel. Performing Organization Address City/State/ZIP Code P le Number [facility] [address] [place] [address] * XR Tibia Left (10/26/2020 7:08 PM EDT) Specimen Impressions Performed At IMPRESSION: [facility] 1. Multiple fractures involving the tibia and fibula as described above. 2. There is transverse fracture of the me dial malleolus. 3. Limited evaluation of posterior mall eolus. 4. Suboptimal visualization of sacrum d ue to obscuration by overlying bowel. Narrative Performed At INDICATION: Fall, left lower extremity pain, deformit y to the left lower lung. [facility] TECHNIQUE: 2 AP views of the pelvis was obtained. AP and lateral views of the left femur were obtained. 5 radiographic views of the left knee w ere obtained. 4 radiographic views of the left tibia were obtained. 5 radiographic views of the left ankle were obtained. 4 radiographic views of the left foot w ere obtained. COMPARISON: None. FINDINGS: Pelvis: The pelvic ring appears intact. There is no evidence of an acute fracture or dislocation.Bilateral hip joints kayla ear unremarkable without evidence of joint space narrowing. The lower lumbar spine is unremarkable. The sacrum is obscured by overlying bowel.Moderate am ount of formed stool within the distal colon and rectum.The surrounding soft t issues are unremarkable. FEMUR: No acute fracture or dislocation is seen. The femoral head remains seated within the acetabulum. The osseous structures are aligned. The joint spaces are maint ained. No soft tissue swelling is appreciated. No radio opaque foreign titus dy is seen. KNEE: There is no evidence of joint eff usion There is no evidence of an acute fracture or dislocation. The medial, la teral and patello-femoral joint compartments are without evidence of na rrowing. The alignment is anatomical. The surrounding soft tissues are unremarkab le. There are no bony lesions identified. There is no evidence of ossific loose b odies identified within the joint space. TIBIA/FIBULA: There is a oblique fractu re through the mid diaphysis of the tibia with anterolateral translation and valg us angulation of the distal tibia. Similarly, there is an oblique fracture through the mid diaphysis of the fibula with anterolateral translation valgus a ngulation of the distal fibula. There is a compound fracture in the neck of the fibula with anterior and superior translation of the distal segment.There is normal bone mineralization. There is soft tissue edema adjacent to the descr ibed fractures.There is no radiopaque foreign body. ANKLE: Evaluation is limited by overlyi ng material. Limited evaluation of the posterior malleolus. The ankle mortise and talar dome are intact. There is a transverse fracture of the medial malle olus. The visualized joint space is well maintained. The alignment is anatomical . The periarticular soft tissues are unremarkable. FOOT: Evaluation is limited by overlyin g material. The interphalangeal, metatarsophalangeal, tarsometatarsal an d mid tarsal joints spaces appear unremarkable.There is no evidence of ac cheesh-na fracture or dislocation.The alignment is anatomical.The surrounding soft tiss ues are unremarkable. Procedure Note Interface, Received [facility] - 10/26/2020 8:26 PM EDT INDICATION: Fall, left lower extremity pain, deformity to the left lower lung. TECHNIQUE: 2 AP views of the pelvis was obtained. AP and lateral views of the left femur were obtained. 5 radiographic views of the left knee we re obtained. 4 radiographic views of the left tibia w ere obtained. 5 radiographic views of the left ankle w ere obtained. 4 radiographic views of the left foot we re obtained. COMPARISON: None. FINDINGS: Pelvis: The pelvic ring appears intact.There is no evidence of an acute fracture or dislocation.Bilateral hip joints appear unremarkable without evidence of joint space narrowing. The lower lumbar spine is unremarkable. The sacrum is obscured by overlying bowel.Moderate amount of formed stool within the distal colon and rectum.The surrounding soft tissues are unremarkable. FEMUR: No acute fracture or dislocation is seen. The femoral head remains seated within the acetabulum. The osseous structures are aligned. The joint spaces are maintained. No soft tissue swelling is appreciated. No radio opaque foreign body is seen. KNEE: There is no evidence of joint effusion There is no evidence of an acute fracture or dislocation. The medial, lateral and patello-femoral joint compartments are without evidence of narrowing. The alignment is anatomical. The surrounding soft tissues are unremarkable. There are no bony lesions identified. There is no evidence of ossific loose bodies identified within the joint space. TIBIA/FIBULA: There is a oblique fracture through the mid diaphysis of the tibia with anterolateral translation and valgus angulation of the distal tibia. Similarly, there is an oblique fracture through the mid diaphysis of the fibula with anterolateral translation valgus angulation of the distal fibula. There is a compound fracture in the neck of the fibula with anterior and superior translation of the distal segment.There is normal bone mineralization. There is soft tissue edema adjacent to the described fractures.There is no radiopaque foreign body. ANKLE: Evaluation is limited by overlying material. Limited evaluation of the posterior malleolus. The ankle mortise and talar dome are intact. There is a transverse fracture of the medial malleolus. The visualized joint space is well maintained. The alignment is anatomical. The periarticular soft tissues are unremarkable. FOOT: Evaluation is limited by overlying material. The interphalangeal, metatarsophalangeal, tarsometatarsal and mid tarsal joints spaces appear unremarkable.There is no evidence of acute fracture or dislocation.The alignment is anatomical.The surrounding soft tissues are unremarkable. IMPRESSION: 1. Multiple fractures involving the tib ia and fibula as described above. 2. There is transverse fracture of the medial malleolus. 3. Limited evaluation of posterior malle olus. 4. Suboptimal visualization of sacrum du e to obscuration by overlying bowel. Performing Organization Address City/State/ZIP Code P le Number [facility] [address] [place] [address] * XR Knee 4 or More Views Left (10/26/2020 7:08 PM EDT) Specimen Impressions Performed At IMPRESSION: [facility] 1. Multiple fractures involving the tibia and fibula as described above. 2. There is transverse fracture of the me dial malleolus. 3. Limited evaluation of posterior mall eolus. 4. Suboptimal visualization of sacrum d ue to obscuration by overlying bowel. Narrative Performed At INDICATION: Fall, left lower extremity pain, deformit y to the left lower lung. [facility] TECHNIQUE: 2 AP views of the pelvis was obtained. AP and lateral views of the left femur were obtained. 5 radiographic views of the left knee w ere obtained. 4 radiographic views of the left tibia were obtained. 5 radiographic views of the left ankle were obtained. 4 radiographic views of the left foot w ere obtained. COMPARISON: None. FINDINGS: Pelvis: The pelvic ring appears intact. There is no evidence of an acute fracture or dislocation.Bilateral hip joints kayla ear unremarkable without evidence of joint space narrowing. The lower lumbar spine is unremarkable. The sacrum is obscured by overlying bowel.Moderate am ount of formed stool within the distal colon and rectum.The surrounding soft t issues are unremarkable. FEMUR: No acute fracture or dislocation is seen. The femoral head remains seated within the acetabulum. The osseous structures are aligned. The joint spaces are maint ained. No soft tissue swelling is appreciated. No radio opaque foreign titus dy is seen. KNEE: There is no evidence of joint eff usion There is no evidence of an acute fracture or dislocation. The medial, la teral and patello-femoral joint compartments are without evidence of na rrowing. The alignment is anatomical. The surrounding soft tissues are unremarkab le. There are no bony lesions identified. There is no evidence of ossific loose b odies identified within the joint space. TIBIA/FIBULA: There is a oblique fractu re through the mid diaphysis of the tibia with anterolateral translation and valg us angulation of the distal tibia. Similarly, there is an oblique fracture through the mid diaphysis of the fibula with anterolateral translation valgus a ngulation of the distal fibula. There is a compound fracture in the neck of the fibula with anterior and superior translation of the distal segment.There is normal bone mineralization. There is soft tissue edema adjacent to the descr ibed fractures.There is no radiopaque foreign body. ANKLE: Evaluation is limited by overlyi ng material. Limited evaluation of the posterior malleolus. The ankle mortise and talar dome are intact. There is a transverse fracture of the medial malle olus. The visualized joint space is well maintained. The alignment is anatomical . The periarticular soft tissues are unremarkable. FOOT: Evaluation is limited by overlyin g material. The interphalangeal, metatarsophalangeal, tarsometatarsal an d mid tarsal joints spaces appear unremarkable.There is no evidence of ac cheesh-na fracture or dislocation.The alignment is anatomical.The surrounding soft tiss ues are unremarkable. Procedure Note Interface, Received Via [facility] - 10/26/2020 8:26 PM EDT INDICATION: Fall, left lower extremity pain, deformity to the left lower lung. TECHNIQUE: 2 AP views of the pelvis was obtained. AP and lateral views of the left femur were obtained. 5 radiographic views of the left knee we re obtained. 4 radiographic views of the left tibia w ere obtained. 5 radiographic views of the left ankle w ere obtained. 4 radiographic views of the left foot we re obtained. COMPARISON: None. FINDINGS: Pelvis: The pelvic ring appears intact.There is no evidence of an acute fracture or dislocation.Bilateral hip joints appear unremarkable without evidence of joint space narrowing. The lower lumbar spine is unremarkable. The sacrum is obscured by overlying bowel.Moderate amount of formed stool within the distal colon and rectum.The surrounding soft tissues are unremarkable. FEMUR: No acute fracture or dislocation is seen. The femoral head remains seated within the acetabulum. The osseous structures are aligned. The joint spaces are maintained. No soft tissue swelling is appreciated. No radio opaque foreign body is seen. KNEE: There is no evidence of joint effusion There is no evidence of an acute fracture or dislocation. The medial, lateral and patello-femoral joint compartments are without evidence of narrowing. The alignment is anatomical. The surrounding soft tissues are unremarkable. There are no bony lesions identified. There is no evidence of ossific loose bodies identified within the joint space. TIBIA/FIBULA: There is a oblique fracture through the mid diaphysis of the tibia with anterolateral translation and valgus angulation of the distal tibia. Similarly, there is an oblique fracture through the mid diaphysis of the fibula with anterolateral translation valgus angulation of the distal fibula. There is a compound fracture in the neck of the fibula with anterior and superior translation of the distal segment.There is normal bone mineralization. There is soft tissue edema adjacent to the described fractures.There is no radiopaque foreign body. ANKLE: Evaluation is limited by overlying material. Limited evaluation of the posterior malleolus. The ankle mortise and talar dome are intact. There is a transverse fracture of the medial malleolus. The visualized joint space is well maintained. The alignment is anatomical. The periarticular soft tissues are unremarkable. FOOT: Evaluation is limited by overlying material. The interphalangeal, metatarsophalangeal, tarsometatarsal and mid tarsal joints spaces appear unremarkable.There is no evidence of acute fracture or dislocation.The alignment is anatomical.The surrounding soft tissues are unremarkable. IMPRESSION: 1. Multiple fractures involving the tib ia and fibula as described above. 2. There is transverse fracture of the medial malleolus. 3. Limited evaluation of posterior malle olus. 4. Suboptimal visualization of sacrum du e to obscuration by overlying bowel. Performing Organization Address City/State/ZIP Code P le Number [facility] [address] [place] [address] * XR Femur, Minimum of 2 Views Left (10/26/2020 7:08 PM EDT) Specimen Impressions Performed At IMPRESSION: [facility] 1. Multiple fractures involving the tibia and fibula as described above. 2. There is transverse fracture of the me dial malleolus. 3. Limited evaluation of posterior mall eolus. 4. Suboptimal visualization of sacrum d ue to obscuration by overlying bowel. Narrative Performed At INDICATION: Fall, left lower extremity pain, deformit y to the left lower lung. [facility] TECHNIQUE: 2 AP views of the pelvis was obtained. AP and lateral views of the left femur were obtained. 5 radiographic views of the left knee w ere obtained. 4 radiographic views of the left tibia were obtained. 5 radiographic views of the left ankle were obtained. 4 radiographic views of the left foot w ere obtained. COMPARISON: None. FINDINGS: Pelvis: The pelvic ring appears intact. There is no evidence of an acute fracture or dislocation.Bilateral hip joints kayla ear unremarkable without evidence of joint space narrowing. The lower lumbar spine is unremarkable. The sacrum is obscured by overlying bowel.Moderate am ount of formed stool within the distal colon and rectum.The surrounding soft t issues are unremarkable. FEMUR: No acute fracture or dislocation is seen. The femoral head remains seated within the acetabulum. The osseous structures are aligned. The joint spaces are maint ained. No soft tissue swelling is appreciated. No radio opaque foreign titus dy is seen. KNEE: There is no evidence of joint eff usion There is no evidence of an acute fracture or dislocation. The medial, la teral and patello-femoral joint compartments are without evidence of na rrowing. The alignment is anatomical. The surrounding soft tissues are unremarkab le. There are no bony lesions identified. There is no evidence of ossific loose b odies identified within the joint space. TIBIA/FIBULA: There is a oblique fractu re through the mid diaphysis of the tibia with anterolateral translation and valg us angulation of the distal tibia. Similarly, there is an oblique fracture through the mid diaphysis of the fibula with anterolateral translation valgus a ngulation of the distal fibula. There is a compound fracture in the neck of the fibula with anterior and superior translation of the distal segment.There is normal bone mineralization. There is soft tissue edema adjacent to the descr ibed fractures.There is no radiopaque foreign body. ANKLE: Evaluation is limited by overlyi ng material. Limited evaluation of the posterior malleolus. The ankle mortise and talar dome are intact. There is a transverse fracture of the medial malle olus. The visualized joint space is well maintained. The alignment is anatomical . The periarticular soft tissues are unremarkable. FOOT: Evaluation is limited by overlyin g material. The interphalangeal, metatarsophalangeal, tarsometatarsal an d mid tarsal joints spaces appear unremarkable.There is no evidence of ac cheesh-na fracture or dislocation.The alignment is anatomical.The surrounding soft tiss ues are unremarkable. Procedure Note Interface, Received Via [facility] - 10/26/2020 8:26 PM EDT INDICATION: Fall, left lower extremity pain, deformity to the left lower lung. TECHNIQUE: 2 AP views of the pelvis was obtained. AP and lateral views of the left femur were obtained. 5 radiographic views of the left knee we re obtained. 4 radiographic views of the left tibia w ere obtained. 5 radiographic views of the left ankle w ere obtained. 4 radiographic views of the left foot we re obtained. COMPARISON: None. FINDINGS: Pelvis: The pelvic ring appears intact.There is no evidence of an acute fracture or dislocation.Bilateral hip joints appear unremarkable without evidence of joint space narrowing. The lower lumbar spine is unremarkable. The sacrum is obscured by overlying bowel.Moderate amount of formed stool within the distal colon and rectum.The surrounding soft tissues are unremarkable. FEMUR: No acute fracture or dislocation is seen. The femoral head remains seated within the acetabulum. The osseous structures are aligned. The joint spaces are maintained. No soft tissue swelling is appreciated. No radio opaque foreign body is seen. KNEE: There is no evidence of joint effusion There is no evidence of an acute fracture or dislocation. The medial, lateral and patello-femoral joint compartments are without evidence of narrowing. The alignment is anatomical. The surrounding soft tissues are unremarkable. There are no bony lesions identified. There is no evidence of ossific loose bodies identified within the joint space. TIBIA/FIBULA: There is a oblique fracture through the mid diaphysis of the tibia with anterolateral translation and valgus angulation of the distal tibia. Similarly, there is an oblique fracture through the mid diaphysis of the fibula with anterolateral translation valgus angulation of the distal fibula. There is a compound fracture in the neck of the fibula with anterior and superior translation of the distal segment.There is normal bone mineralization. There is soft tissue edema adjacent to the described fractures.There is no radiopaque foreign body. ANKLE: Evaluation is limited by overlying material. Limited evaluation of the posterior malleolus. The ankle mortise and talar dome are intact. There is a transverse fracture of the medial malleolus. The visualized joint space is well maintained. The alignment is anatomical. The periarticular soft tissues are unremarkable. FOOT: Evaluation is limited by overlying material. The interphalangeal, metatarsophalangeal, tarsometatarsal and mid tarsal joints spaces appear unremarkable.There is no evidence of acute fracture or dislocation.The alignment is anatomical.The surrounding soft tissues are unremarkable. IMPRESSION: 1. Multiple fractures involving the tib ia and fibula as described above. 2. There is transverse fracture of the medial malleolus. 3. Limited evaluation of posterior malle olus. 4. Suboptimal visualization of sacrum du e to obscuration by overlying bowel. Performing Organization Address City/State/ZIP Code P le Number [facility] [address] [place] [address] * XR Pelvis 1-2 Views (10/26/2020 7:08 PM EDT) Specimen Impressions Performed At IMPRESSION: [facility] 1. Multiple fractures involving the tibia and fibula as described above. 2. There is transverse fracture of the me dial malleolus. 3. Limited evaluation of posterior mall eolus. 4. Suboptimal visualization of sacrum d ue to obscuration by overlying bowel. Narrative Performed At INDICATION: Fall, left lower extremity pain, deformit y to the left lower lung. [facility] TECHNIQUE: 2 AP views of the pelvis was obtained. AP and lateral views of the left femur were obtained. 5 radiographic views of the left knee w ere obtained. 4 radiographic views of the left tibia were obtained. 5 radiographic views of the left ankle were obtained. 4 radiographic views of the left foot w ere obtained. COMPARISON: None. FINDINGS: Pelvis: The pelvic ring appears intact. There is no evidence of an acute fracture or dislocation.Bilateral hip joints kayla ear unremarkable without evidence of joint space narrowing. The lower lumbar spine is unremarkable. The sacrum is obscured by overlying bowel.Moderate am ount of formed stool within the distal colon and rectum.The surrounding soft t issues are unremarkable. FEMUR: No acute fracture or dislocation is seen. The femoral head remains seated within the acetabulum. The osseous structures are aligned. The joint spaces are maint ained. No soft tissue swelling is appreciated. No radio opaque foreign titus dy is seen. KNEE: There is no evidence of joint eff usion There is no evidence of an acute fracture or dislocation. The medial, la teral and patello-femoral joint compartments are without evidence of na rrowing. The alignment is anatomical. The surrounding soft tissues are unremarkab le. There are no bony lesions identified. There is no evidence of ossific loose b odies identified within the joint space. TIBIA/FIBULA: There is a oblique fractu re through the mid diaphysis of the tibia with anterolateral translation and valg us angulation of the distal tibia. Similarly, there is an oblique fracture through the mid diaphysis of the fibula with anterolateral translation valgus a ngulation of the distal fibula. There is a compound fracture in the neck of the fibula with anterior and superior translation of the distal segment.There is normal bone mineralization. There is soft tissue edema adjacent to the descr ibed fractures.There is no radiopaque foreign body. ANKLE: Evaluation is limited by overlyi ng material. Limited evaluation of the posterior malleolus. The ankle mortise and talar dome are intact. There is a transverse fracture of the medial malle olus. The visualized joint space is well maintained. The alignment is anatomical . The periarticular soft tissues are unremarkable. FOOT: Evaluation is limited by overlyin g material. The interphalangeal, metatarsophalangeal, tarsometatarsal an d mid tarsal joints spaces appear unremarkable.There is no evidence of ac cheesh-na fracture or dislocation.The alignment is anatomical.The surrounding soft tiss ues are unremarkable. Procedure Note Interface, Received Via [facility] - 10/26/2020 8:26 PM EDT INDICATION: Fall, left lower extremity pain, deformity to the left lower lung. TECHNIQUE: 2 AP views of the pelvis was obtained. AP and lateral views of the left femur were obtained. 5 radiographic views of the left knee we re obtained. 4 radiographic views of the left tibia w ere obtained. 5 radiographic views of the left ankle w ere obtained. 4 radiographic views of the left foot we re obtained. COMPARISON: None. FINDINGS: Pelvis: The pelvic ring appears intact.There is no evidence of an acute fracture or dislocation.Bilateral hip joints appear unremarkable without evidence of joint space narrowing. The lower lumbar spine is unremarkable. The sacrum is obscured by overlying bowel.Moderate amount of formed stool within the distal colon and rectum.The surrounding soft tissues are unremarkable. FEMUR: No acute fracture or dislocation is seen. The femoral head remains seated within the acetabulum. The osseous structures are aligned. The joint spaces are maintained. No soft tissue swelling is appreciated. No radio opaque foreign body is seen. KNEE: There is no evidence of joint effusion There is no evidence of an acute fracture or dislocation. The medial, lateral and patello-femoral joint compartments are without evidence of narrowing. The alignment is anatomical. The surrounding soft tissues are unremarkable. There are no bony lesions identified. There is no evidence of ossific loose bodies identified within the joint space. TIBIA/FIBULA: There is a oblique fracture through the mid diaphysis of the tibia with anterolateral translation and valgus angulation of the distal tibia. Similarly, there is an oblique fracture through the mid diaphysis of the fibula with anterolateral translation valgus angulation of the distal fibula. There is a compound fracture in the neck of the fibula with anterior and superior translation of the distal segment.There is normal bone mineralization. There is soft tissue edema adjacent to the described fractures.There is no radiopaque foreign body. ANKLE: Evaluation is limited by overlying material. Limited evaluation of the posterior malleolus. The ankle mortise and talar dome are intact. There is a transverse fracture of the medial malleolus. The visualized joint space is well maintained. The alignment is anatomical. The periarticular soft tissues are unremarkable. FOOT: Evaluation is limited by overlying material. The interphalangeal, metatarsophalangeal, tarsometatarsal and mid tarsal joints spaces appear unremarkable.There is no evidence of acute fracture or dislocation.The alignment is anatomical.The surrounding soft tissues are unremarkable. IMPRESSION: 1. Multiple fractures involving the tib ia and fibula as described above. 2. There is transverse fracture of the medial malleolus. 3. Limited evaluation of posterior malle olus. 4. Suboptimal visualization of sacrum du e to obscuration by overlying bowel. Performing Organization Address City/State/ZIP Code P le Number [facility] [address] [place] [address] * XR Chest Frontal Only (10/26/2020 7:08 PM EDT) Specimen Impressions Performed At IMPRESSION: [facility] 1. Mediastinal and cardiac prominence. These findings may be related to patient positioning and technique. PA and later al radiographs are recommended. 2. Bilateral lung opacities likely repr esenting atelectasis versus airspace disease. Narrative Performed At INDICATION: Fall. Fall from standing. History of sarc oidosis. [facility] COMPARISON: CT thorax and chest radiogr aph 02/28/2020. TECHNIQUE: A single supine radiograph t he chest was performed with patient in supine position. FINDINGS: The patient is rotated. Cardi ac monitor leads overlie the chest. The mediastinum and heart appear prominent. There are linear opacities within the right lung base. There is left retrocar diac opacity. No evidence of pleural effusion or pneumothorax is visualized. Chest wall appears intact. No acute fractures visualized. Procedure Note Interface, Received Via [facility] - 10/26/2020 7:09 PM EDT INDICATION: Fall. Fall from standing. History of sarcoidosis. COMPARISON: CT thorax and chest radiograph 02/28/2020. TECHNIQUE: A single supine radiograph the chest was performed with patient in supine position. FINDINGS: The patient is rotated. bender hand leads overlie the chest. The mediastinum and heart appear prominent. There are linear opacities within the right lung base. There is left retrocardiac opacity. No evidence of pleural effusion or pneumothorax is visualized. Chest wall appears intact. No acute fractures visualized. IMPRESSION: 1. Mediastinal and cardiac prominence. T hese findings may be related to patient positioning and technique. PA and lateral radiographs are recommended. 2. Bilateral lung opacities likely repre senting atelectasis versus airspace disease. Performing Organization Address City/State/ZIP Code P le Number [facility] [address] [place] [address] documented in this encounter Visit Diagnoses Diagnosis Leg fracture, left, closed, initial enc ounter - Primary Closed displaced oblique fracture of sh aft of left tibia, initial encounter Closed displaced oblique fracture of sh aft of left fibula, initial encounter Closed displaced fracture of medial mal leolus of left tibia, initial encounter Cigarette smoker Tobacco use disorder COVID-19 ruled out Fall from bed, initial encounter Bedroom of unspecified non-institutiona l (private) residence as the place of occurrence of the external cause 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 650 mg Given 11/08/2020 4:04 AM EDT 650 mg Given 11/07/2020 8:02 PM EDT albuterol (PROVENTIL HFA) inhaler 2 puf f 2 puff, Inhalation, Every 6 hours PRN , Wheezing, Starting on Sera 11/01/20 at 0940, For 7 days 9 hours, Shake the inhaler well before each spray. 11/08/2020 8:39 AM EDT 1 Application bacitracin ointment Given Topical, Three Times Daily Standard, First dose on Thu11/05/20 at 0945, For 7 days, Apply to Left upper leg incision 1 Application Given 11/07/2020 8:02 PM EDT 1 Application Given 11/07/2020 5:33 PM EDT 11/08/2020 6:45 AM EDT 450 mg buPROPion (WELLBUTRIN XL) 24 hr tablet Given 450 mg 450 mg, Oral, Daily Standard, First dose on Thu10/27/20 at 0900, For 30 days, Do not crush or chew 450 mg Given 11/07/2020 6:50 AM EDT 450 mg Given 11/06/2020 7:02 AM EDT 11/08/2020 6:46 AM EDT 10 mg busPIRone (BUSPAR) tablet 10 mg Given 10 mg, Oral, 2 Times Daily, First dose (after last modification) on Thu 1 at 2100, For 51 doses 10 mg Given 11/07/2020 8:02 PM EDT 10 mg Given 11/07/2020 6:50 AM EDT 11/08/2020 11:57 AM EDT 500 mg cephALEXin (KEFLEX) capsule 500 mg Given 500 mg, Oral, Every 6 hours Standard (4 times per day), First dose on Thu11/06/20 at 1200, For 7 days 500 mg Given 11/08/2020 6:46 AM EDT 500 mg Given 11/07/2020 11:20 PM EDT 11/06/2020 7:07 AM EDT 40 mg enoxaparin sodium (LOVENOX) injection 40 Given mg 40 mg, Subcutaneous, Daily Standard, First dose on Thu10/29/20 at 0900, For 30 days 40 mg Given 11/05/2020 7:01 AM EDT 40 mg Given 11/03/2020 8:01 AM EDT 11/08/2020 6:45 AM EDT 800 mg gabapentin (NEURONTIN) capsule 800 mg Given 800 mg, Oral, Three Times Daily Standard, Indications: Neuropathic Pain , Postoperative Pain, Home med, for anxiety, First dose on 11/03/20 at 0900, For 10 days 800 mg Given 11/07/2020 8:02 PM EDT 800 mg Given 11/07/2020 5:33 PM EDT 11/08/2020 8:51 AM EDT 50 mg hydrOXYzine (ATARAX) tablet 50 mg Given 50 mg, Oral, Every 6 hours PRN, Anxiety, Starting on Thu11/05/20 at 0954 , For 697 hours 50 mg Given 11/07/2020 4:03 PM EDT 50 mg Given 11/07/2020 9:24 AM EDT 11/08/2020 6:45 AM EDT 175 mcg levothyroxine (SYNTHROID) tablet 175 mcg Given 175 mcg, Oral, Daily at 0600, First dos e on Thu10/27/20 at 0600, For 30 days 175 mcg Given 11/07/2020 5:59 AM EDT 175 mcg Given 11/06/2020 7:02 AM EDT 11/08/2020 9:52 AM EDT 5 mLs maalox/lidocaine/diphenhydrAMINE Given (RADIATION MIXTURE) 1:1:1 oral suspension 5 mL 5 mL, Swish & Swallow, Every 6 hours PRN, oral pain, Starting on Thu11/07/20 at 1651, For 30 days 11/08/2020 6:47 AM EDT 145 mg methadone (DOLOPHINE) 10 MG/ML oral Given solution concentrated 145 mg 145 mg, Oral, Daily Standard, First dose on Thu10/30/20 at 0800, For 12 doses 145 mg Given 11/07/2020 6:49 AM EDT 145 mg Given 11/06/2020 7:02 AM EDT 11/07/2020 8:02 PM EDT 200 mg QUEtiapine (SEROQUEL XR) Given extended-release tablet 200 mg 200 mg, Oral, Nightly, First dose (afte r last modification) on Thu11/04/20 at 2200, For 30 doses 200 mg Given 11/06/2020 7:52 PM EDT 200 mg Given 11/05/2020 8:16 PM EDT 11/07/2020 8:02 PM EDT 50 mg trazodone (DESYREL) tablet 50 mg Given 50 mg, Oral, Nightly, First dose (after last modification) on Thu11/02/20 at 2200, For 24 doses 50 mg Given 11/06/2020 7:53 PM EDT 50 mg Given 11/05/2020 8:16 PM EDT Action Date Dose Rate Site Medication Order MAR Action 10/28/2020 12:37 PM EDT 1,000 mg 400 mL/hr acetaminophen (OFIRMEV) infusion 1,000 New Bag mg 1,000 mg, Intravenous, Administer over 15 Minutes, Once, On 10/28/20 at 1230, For 1 dose, Maximum daily dose of acetaminophen from all sources 3,000 mg daily., Recovery 10/29/2020 9:25 PM EDT 200 mg benzonatate (TESSALON) capsule 200 mg Given 200 mg, Oral, Three Times Daily Standard, First dose on 10/27/20 at 0900, For 3 days 200 mg Given 10/29/2020 4:41 PM EDT 200 mg Given 10/29/2020 8:06 AM EDT 10/31/2020 8:52 AM EDT 5 mg busPIRone (BUSPAR) tablet 5 mg Given 5 mg, Oral, 2 Times Daily, First dose o n 10/27/20 at 0900, For 30 days 5 mg Given 10/30/2020 8:20 PM EDT 5 mg Given 10/30/2020 8:43 AM EDT 10/31/2020 8:55 AM EDT 2 g 200 mL/hr ceFAZolin (ANCEF) IVPB 2 g in dextrose New Bag (premix) 2 g, Intravenous, Administer over 30 Minutes, Every 8 hours, First dose on Thu10/28/20 at 1530, For 3 days 2 g 200 mL/hr New Bag 10/31/2020 12:16 AM EDT 2 g 200 mL/hr New Bag 10/30/2020 4:09 PM EDT 10/28/2020 1:12 PM EDT 25 mcg fentaNYL (SUBLIMAZE) (PF) injection 25 Given by IV mcg push 25 mcg, Intravenous, Every 5 min PRN, Severe Pain (Pain Scale Score 7-10), Starting on 10/28/20 at 1231, For 10 doses, Recovery 25 mcg Given by IV push 10/28/2020 1:06 PM EDT 25 mcg Given by IV push 10/28/2020 1:01 PM EDT 10/27/2020 9:50 PM EDT 800 mg gabapentin (NEURONTIN) capsule 800 mg Given 800 mg, Oral, Three Times Daily Standard, First dose on Thu10/27/20 at 0900, For 3 doses 800 mg Given 10/27/2020 5:10 PM EDT 11/02/2020 5:55 PM EDT 800 mg gabapentin (NEURONTIN) capsule 800 mg Given 800 mg, Oral, Three Times Daily Standard, Indications: Neuropathic Pain , Postoperative Pain, First dose (after last modification) on Thu10/28/20 at 1700, For 16 doses 800 mg Given 11/02/2020 8:00 AM EDT 800 mg Given 11/01/2020 8:44 PM EDT 11/05/2020 7:01 AM EDT 25 mg hydrOXYzine (ATARAX) tablet 25 mg Given 25 mg, Oral, Every 6 hours PRN, Anxiety, Starting on Thu11/04/20 at 1132 , For 30 days 25 mg Given 11/04/2020 6:33 PM EDT 25 mg Given 11/04/2020 12:01 PM EDT 10/28/2020 12:36 PM EDT 15 mg ketorolac (TORADOL) 15 MG/ML injection New Bag 15 mg 15 mg, Intravenous, Once, On Thu 1 at 1230, For 1 dose, Recovery 10/29/2020 12:24 PM EDT 30 mg methadone (DOLOPHINE) 5 MG/5ML oral Given solution 30 mg 30 mg, Oral, Once, On Thu10/29/20 at 1145, For 1 dose 10/28/2020 9:32 AM EDT 1 mg midazolam (PF) (VERSED) injection 1 mg Given by IV 1 mg, Intravenous, Every 10 min PRN, push Other, anxiety, Starting on Thu10/28/20 at 0931, For 2 doses, Pre-op 10/26/2020 7:27 PM EDT 4 mg morphine sulfate (PF) injection 4 mg New Bag 4 mg, Intravenous, Once, On Thu10/26/20 at 1915, For 1 dose 10/26/2020 8:02 PM EDT 4 mg morphine sulfate (PF) injection 4 mg Given by IV 4 mg, Intravenous, Once, On Thu10/26/20 push at 2000, For 1 dose 10/27/2020 8:47 AM EDT 4 mg morphine sulfate (PF) injection 4 mg New Bag 4 mg, Intravenous, Every 4 hours PRN, Moderate Pain (Pain Scale Score 4-6), Severe Pain (Pain Scale Score 7-10), Starting on Thu10/26/20 at 2155, For 3 days 4 mg New Bag 10/27/2020 4:07 AM EDT 4 mg Given by IV push 10/26/2020 10:33 PM EDT 10/30/2020 6:54 AM EDT 4 mg morphine sulfate (PF) injection 4 mg New Bag 4 mg, Intravenous, Every 4 hours PRN, Severe Pain (Pain Scale Score 7-10), Starting on 10/27/20 at 0939, For 3 days 4 mg New Bag 10/30/2020 2:15 AM EDT 4 mg Given by IV push 10/29/2020 10:08 PM EDT 10/27/2020 10:01 AM EDT 75 mL/hr NaCl infusion 0.9 % New Bag at 75 mL/hr, Intravenous, Continuous, Starting on 10/27/20 at 0945, For 30 days 11/03/2020 5:48 PM EDT 5 mg oxyCODONE (ROXICODONE) immediate release Given tablet 5 mg 5 mg, Oral, Every 4 hours PRN, Moderate Pain (Pain Scale Score 4-6), Starting on 10/27/20 at 0939, For 7 days 11 hours, Oxycodone immediate release is limited to 10 mg per dose. Higher doses ( only) require Pain Service consultation and approval. 5 mg Given 11/03/2020 1:32 PM EDT 5 mg Given 11/03/2020 6:43 AM EDT 11/07/2020 4:00 AM EDT 5 mg oxyCODONE (ROXICODONE) immediate release Given tablet 5 mg 5 mg, Oral, Every 4 hours PRN, Moderate Pain (Pain Scale Score 4-6), Starting on 11/04/20 at 0518, For 3 days, Oxycodone immediate release is limited to 10 mg per dose. Higher doses ( only) require Pain Service consultation and approval. 5 mg Given 11/06/2020 9:54 PM EDT 5 mg Given 11/06/2020 5:01 PM EDT 11/07/2020 5:32 PM EDT 5 mg oxyCODONE (ROXICODONE) immediate release Given tablet 5 mg 5 mg, Oral, Every 4 hours PRN, Moderate Pain (Pain Scale Score 4-6), Starting on Thu11/07/20 at 0538, For 12 hours, Oxycodone immediate release is limited to 10 mg per dose. Higher doses ( only) require Pain Service consultation and approval. 5 mg Given 11/07/2020 1:47 PM EDT 5 mg Given 11/07/2020 9:24 AM EDT 11/08/2020 8:51 AM EDT 5 mg oxyCODONE (ROXICODONE) immediate release Given tablet 5 mg 5 mg, Oral, Every 4 hours PRN, Moderate Pain (Pain Scale Score 4-6), Starting on Thu11/08/20 at 0013, For 12 hours, Oxycodone immediate release is limited to 10 mg per dose. Higher doses ( only) require Pain Service consultation and approval. 5 mg Given 11/08/2020 4:04 AM EDT 10/29/2020 2:11 AM EDT 20 mEq potassium chloride (K-DUR) dissolvable Given tablet 20 mEq 20 mEq, Oral, Once, On Thu10/29/20 at 0145, For 1 dose, May be dissolved in water for patients with a G-Tube or unable to swallow. If concern for clogging G-Tube, may contact Pharmacy t o switch formulation to a powder packet. 10/29/2020 4:26 AM EDT 20 mEq potassium chloride (K-DUR) dissolvable Given tablet 20 mEq 20 mEq, Oral, Once, On Thu10/29/20 at 0230, For 1 dose, May be dissolved in water for patients with a G-Tube or unable to swallow. If concern for clogging G-Tube, may contact Pharmacy t o switch formulation to a powder packet. 10/29/2020 8:06 AM EDT 40 mEq potassium chloride (K-DUR) dissolvable Given tablet 40 mEq 40 mEq, Oral, Once, On Thu10/29/20 at 0730, For 1 dose, May be dissolved in water for patients with a G-Tube or unable to swallow. If concern for clogging G-Tube, may contact Pharmacy t o switch formulation to a powder packet. 10/31/2020 11:32 AM EDT 40 mEq potassium chloride (K-DUR) dissolvable Given tablet 40 mEq 40 mEq, Oral, Every 4 hours, First dose on Thu10/31/20 at 0615, For 2 doses, May be dissolved in water for patients with a G-Tube or unable to swallow. If concern for clogging G-Tube , may contact Pharmacy to switch formulation to a powder packet. 40 mEq Given 10/31/2020 6:55 AM EDT 11/01/2020 8:43 PM EDT 1 mg prazosin (MINIPRESS) capsule 1 mg Given 1 mg, Oral, Nightly, First dose on Thu10/27/20 at 2200, For 30 days, Check vital signs before administering 1 mg Given 10/31/2020 8:35 PM EDT 1 mg Given 10/30/2020 8:20 PM EDT 11/03/2020 8:52 PM EDT 200 mg QUEtiapine (SEROQUEL XR) Given extended-release tablet 200 mg 200 mg, Oral, Nightly, First dose on 10/27/20 at 2200, For 30 doses 200 mg Given 11/02/2020 9:43 PM EDT 200 mg Given 11/01/2020 8:44 PM EDT 11/04/2020 1:58 PM EDT 25 mg QUEtiapine (SEROquel) tablet 25 mg Given 25 mg, Oral, Daily PRN, Other, Anxiety, Starting on Thu11/04/20 at 1209, For 30 days 10/31/2020 3:17 PM EDT ropivacaine (NAROPIN) PNB 0.2 % CADD MODIFY/HANDO Infiltration, Continuous, Starting on OF Thu10/29/20 at 1345, For 7 days CONTROLED SUBSTANCE DRIP 500 mg 6 mL/hr New Bag 10/31/2020 11:36 AM EDT 500 mg New Bag 10/29/2020 3:49 PM EDT 10/29/2020 3:49 PM EDT 500 mg ropivacaine (NAROPIN) PNB 0.2 % CADD New Bag Infiltration, Continuous, Starting on Thu10/29/20 at 1345, For 7 days 11/03/2020 9:14 PM EDT 500 mg ropivacaine (NAROPIN) PNB 0.2 % CADD New Bag Infiltration, Continuous, Starting on 10/30/20 at 0815, For 149 hours 500 mg 6 mL/hr New Bag 11/02/2020 4:59 AM EDT MODIFY/HANDOFF OF CONTROLED SUBSTANCE 10/31/2020 DRIP 3:17 PM EDT 11/04/2020 5:34 AM EDT 500 mg ropivacaine (NAROPIN) PNB 0.2 % CADD New Bag Infiltration, Continuous, Starting on Sera 11/01/20 at 1015, For 99 hours 500 mg New Bag 11/03/2020 1:24 AM EDT 500 mg New Syringe/Cartridge 11/01/2020 7:26 PM EDT 10/26/2020 10:31 PM EDT 1,000 mLs 999 mL/hr sodium chloride 0.9 % bolus 1,000 mL New Bag 1,000 mL, Intravenous, Once, On Thu10/26/20 at 2100, For 1 dose 11/01/2020 8:44 PM EDT 100 mg trazodone (DESYREL) tablet 100 mg Given 100 mg, Oral, Nightly, First dose on Sa t 10/27/20 at 2200, For 30 days 100 mg Given 10/31/2020 8:35 PM EDT 100 mg Given 10/30/2020 8:20 PM EDT documented in this encounter Active and Recently Administered Medications Times are shown in EDT. 11/07/2020 11/08/2020 Medication Order 11/06/2020 0726 (Given - Provider: Deborah Alegria RN)1733 (Given - Provider: Deborah Alegria RN)2001 (Given - Provider: Deborah Bartlett RN) 0839 (Given - Provider: Elfego Argueta RN)1700 (Due - Provider: Deboarh Bartlett RN)2100 (Due - Provider: Deborah Bartlett RN) bacitracin ointment 0753 (Given - Topical, Three Times Daily Standard, Provider: Ramila Love First dose on Thu11/05/20 at 0945, For 7 DEBBY Alegria)1 701 days, Apply to Left upper leg incision (Given - Prov ider: Deborah Alegria RN)2154 (Given - Provider: Brittanie Cai RN) 0650 (Given - Provider: Brittanie negrete RN)0709 (Canceled Entry - Provider: Brittanie Cai RN - Comment: given early at patient's request) 0645 (Given - Provider: Deborah Bartlett RN) buPROPion (WELLBUTRIN XL) 24 hr tablet 0702 (Given - 450 mg Provider: Brittanie Riojas 450 mg, Oral, Daily Standard, First DEBBY Cai) dose on Thu10/27/20 at 0900, For 30 days, Do not crush or chew 0650 (Given - Provider: Brittanie negrete RN)0709 (Canceled Entry - Provider: Brittanie Cai RN - Comment: given early at patient's request)2001 (Given - Provider: Deborah Bartlett RN) 0646 (Given - Provider: Deborah Bartlett RN)2100 (Due - Provider: Deborah Bartlett RN) busPIRone (BUSPAR) tablet 10 mg 0702 (Given - 10 mg, Oral, 2 Times Daily, First dose Provider: Maren Riojas (after last modification) on Thu10/31/20 DEBBY Cai)195 at 2100, For 51 doses (Given - Provider: Brittanie Cai RN) 0559 (Given - Provider: Brittanie negrete RN)1219 (Given - Provider: Deborah Alegria RN)1732 (Given - Provider: Deborah Alegria RN)2320 (Given - Provider: Deborah Bartlett RN) 0646 (Given - Provider: Deborah Bartlett RN)1157 (Given - Provider: Elfego Argueta RN)1800 (Due) cephALEXin (KEFLEX) capsule 500 mg 1159 (Given - 500 mg, Oral, Every 6 hours Standard Provider: Peewee Love (4 times per day), First dose on Thu DEBBY Alegria)17011/06/20 at 1200, For 7 days (Given - Provider: Deborah Alegria RN)2254 (Given - Provider: Brittanie Cai RN) 0651 (Not Given - Provider: Brittanie delong RN - Reason: Patient/family refused)0709 (Canceled Entry - Provider: Brittanie Cai RN - Comment: pt refused) 0646 (Not Given - Provider: Deborah more RN - Reason: Patient/family refused) enoxaparin sodium (LOVENOX) injection 40 0707 (Given - mg Provider: Brittanie Riojas 40 mg, Subcutaneous, Daily Standard, DEBBY Cai) First dose on Thu10/29/20 at 0900, For 30 days 0650 (Given - Provider: Brittanie negrete RN)0710 (Canceled Entry - Provider: Brittanie Cai RN - Comment: given early at patient's request)1733 (Given - Provider: Deborah Alegria RN)2001 (Given - Provider: Deborah Bartlett RN) 0645 (Given - Provider: Deborah Bartlett RN)170 (Due - Provider: Deborah Bartlett RN)2100 (Due - Provider: Deborah Bartlett RN) gabapentin (NEURONTIN) capsule 800 mg 0702 (Given - 800 mg, Oral, Three Times Daily Provider: Brittanie Coleman, Indications: Neuropathic Pain, DEBBY Cai)170 Postoperative Pain, Home med, for (Given - Provider: anxiety, First dose on Thu11/03/20 at [facility] Ivan Blanco er, 0900, For 10 days RN)195 (Given - Provider: Brittanie Cai RN) 0559 (Given - Provider: Brittanie negrete RN) 0645 (Given - Provider: Deborah Bartlett RN) levothyroxine (SYNTHROID) tablet 175 mcg 0702 (Given - 175 mcg, Oral, Daily at 0600, First dose Provider: Namrata Rioajs on Thu10/27/20 at 0600, For 30 days DEBBY Cai) 0649 (Given - Provider: Brittanie negrete RN) 0647 (Given - Provider: Deborah Bartlett RN) methadone (DOLOPHINE) 10 MG/ML oral 0702 (Given - solution concentrated 145 mg Provider: Brittanie Riojas 145 mg, Oral, Daily Standard, First DEBBY Cai) dose on Thu10/30/20 at 0800, For 12 doses 2001 (Given - Provider: Deborah Bartlett RN) 0 (Due) QUEtiapine (SEROQUEL XR) 1951 (Given - extended-release tablet 200 mg Provider: Brittanie Riojas 200 mg, Oral, Nightly, First dose (after DEBBY Cai)2052 last modification) on 11/04/20 at (Canceled Entry - 220, For 30 doses Provider: Brittanie Cai RN - Comment: given earlier at pt's request) 2001 (Given - Provider: Deborah Bartlett RN) 2199 (Due) trazodone (DESYREL) tablet 50 mg 1952 (Given - 50 mg, Oral, Nightly, First dose (after Provider: Brie Riojas last modification) on Thu11/02/20 at DEBBY Cai)2 054 2200, For 24 doses (Canceled Entry - Provider: Brittanie Cai RN - Comment: given earlier at pt's request) 11/07/2020 11/08/2020 Medication Order 11/06/2020 0650 (Given - Provider: Brittanie negrete RN)1219 (Given - Provider: Deborah Alegria RN - Comment: tooth pain)2001 (Given - Provider: Deborha Bartlett RN) 0404 (Given - Provider: Deborah Bartlett RN)1225 (Given - Provider: Elfego Argueta RN) acetaminophen (TYLENOL) tablet 650 mg 1952 (Given - 650 mg, Oral, Every 4 hours PRN, Mild Provider: Brie Riojas Pain (Pain Scale Score 1-3), Starting on DEBBY Cai) 10/27/20 at 0053, For 30 days, Maximum daily dose of acetaminophen is 3,000 mg from all sources in 24 hours. albuterol (PROVENTIL HFA) inhaler 2 puf f 2 puff, Inhalation, Every 6 hours PRN , Wheezing, Starting on Sera 11/01/20 at 0940, For 7 days 9 hours, Shake the inhaler well before each spray. 0400 (Given - Provider: Brittanie negrete RN)0924 (Given - Provider: Deborah Alegria, DEBBY)1603 (Given - Provider: Ember Denise RN) 0851 (Given - Provider: Elfego Argueta RN) hydrOXYzine (ATARAX) tablet 50 mg 0433 (Given - 50 mg, Oral, Every 6 hours PRN, Provider: Brittaine Riojas Anxiety, Starting on Thu11/05/20 at 0954, DEBBY Cai)1030 For 697 hours (Given - Provider: Deborah Alegria RN)1701 (Given - Provider: Deborah Alegria RN)2152 (Given - Provider: Brittanie Cai RN) 0952 (Given - Provider: Elfego Argueta RN) maalox/lidocaine/diphenhydrAMINE (RADIATION MIXTURE) 1:1:1 oral suspension 5 mL 5 mL, Swish & Swallow, Every 6 hours PRN, oral pain, Starting on Thu11/07/20 at 1651, For 30 days 0400 (Given - Provider: Brittanie negrete RN) oxyCODONE (ROXICODONE) immediate release 0022 (Given - tablet 5 mg () Provider: Brittanie Riojas 5 mg, Oral, Every 4 hours PRN, DEBBY Cai)0427 Moderate Pain (Pain Scale Score 4-6), (Given - Provi ingrid: Starting on Thu11/04/20 at 0518, For 3 Brittaniedeja Riveras ej, days, Oxycodone immediate release is RN)1030 (Given - limited to 10 mg per dose. Higher doses Provider: Peewee Love ( only) require Pain Service DEBBY Alegria)1701 consultation and approval. (Given - Provider: Deborah Alegria RN)2154 (Given - Provider: Brittanie Cai RN) 0924 (Given - Provider: Deborah Alegria RN)1347 (Given - Provider: Deborah Aelgria RN)1732 (Given - Provider: Deborah Alegria RN) oxyCODONE (ROXICODONE) immediate releas e tablet 5 mg () 5 mg, Oral, Every 4 hours PRN, Moderate Pain (Pain Scale Score 4-6), Starting on 11/07/20 at 0538, For 12 hours, Oxycodone immediate release is limited to 10 mg per dose. Higher doses ( only) require Pain Service consultation and approval. 0404 (Given - Provider: Deborah Bartlett, RN)0851 (Given - Provider: Elfego Argueta RN) oxyCODONE (ROXICODONE) immediate releas e tablet 5 mg 5 mg, Oral, Every 4 hours PRN, Moderate Pain (Pain Scale Score 4-6), Starting on Sera 11/08/20 at 0013, For 12 hours, Oxycodone immediate release is limited to 10 mg per dose. Higher doses ( only) require Pain Service consultation and approval. documented in this encounter Additional Health Concerns Last Indicated Resolved Time Infection Onset Date 10/26/2020 10/26/2020 10:00 PM EDT Respiratory Rule-Out 10/26/2020 documented as of this encounter
--- NOTE | 2021-01-20 19:10 | REP ---
INDICATION: fall last week, fx surg repair 10/24 knee pain COMPARISON: None. TECHNIQUE: AP and lateral views of the right tibia/fibula FINDINGS: Intramedullary more through the tibial shaft with locking screws spans a healing distal shaft fracture demonstrating callus formation and periosteal reaction. Healing fractures of the proximal and distal fibular shaft are also identified. Surrounding soft tissues are relatively normal. No subcutaneous emphysema or foreign body. IMPRESSION: Satisfactory reduction/fixation and healing tibial and fibular fractures. <Electronically signed by Alvarado Muir > 01/20/21 [id number]
--- NOTE | 2021-01-20 19:12 | REP ---
INDICATION: fall last week, fx surg repair 10/24 knee pain COMPARISON: None. TECHNIQUE: AP, lateral, bilateral oblique and sunrise views. FINDINGS: Knee joint appears age-appropriate/normal. The osseous structures and joint spaces are intact and normal. No joint effusion is appreciated. Surrounding soft tissues are unremarkable. No subcutaneous emphysema or radiodense foreign body. Healing fracture of the proximal fibular metadiaphysis and intramedullary more through the tibia noted. IMPRESSION: Knee joint appears intact and normal/age-appropriate.. <Electronically signed by Alvarado Muir > 01/20/21 3599
== END 2021-01-20 21:10 | disposition left against medical advice (07) ==
LOC: M ED 15:40
DX: M79.605 Pain in left leg (principal); L08.9 Local infection of the skin and subcutaneous tissue, unspecified; D86.9 Sarcoidosis, unspecified; E03.9 Hypothyroidism, unspecified; Z79.899 Other long term (current) drug therapy; Z79.890 Hormone replacement therapy; F11.21 Opioid dependence, in remission; F17.210 Nicotine dependence, cigarettes, uncomplicated

== ENCOUNTER 2021-01-27 22:33 | Inpatient (IN) | payer OTHER ==
[~2021-01-27] VITALS: Ht 160 cm; Wt 109.1 kg
--- OUTSIDE RECORDS SUMMARY | 2021-01-27 22:43 | CCD ---
Author Organization Unknown Address [address] [place] [address] Phone [phone] Care Team Providers Care Hot [place] Worker Name Role Phone Karl Lott Unavailable Unavailable Allergies Code Code System Name [...] mg by oral route. Completed 11/08/2020 12/09/2020 bupropion HCl XL 300 mg 24 hr tablet, ex tended release TAKE ONE TABLET BY MOUTH EVERY DAY Active Not available buspirone 10 mg tablet [...] MOUTH AT BEDTIME Active Not available quetiapine ER 150 mg [...] mg by oral route. Completed 11/08/2020 12/09/2020 Problems Name Status Onset Date Source Hypothyroidism [...] Active 10/26/2020 External Akinesia Active 10/27/2020 External Tobacco User Active 01/23/2021 Procedures Date Name Performed by Bilateral Tubal Ligation Information not available Section Information not avai lable Results Lab Results Date Name Specimen Result Interpretation Description Value Range Status Address 10/02/2020 Influenza A/B RSV Covid Amp Normal Influenza a Amplification negative negative [facility] nter: [address] [facility] Normal Influenza B Amplification negative n egative [facility]: [address] [facility] Normal RSV Amplification negative negative [facility]: [address] [facility] Normal Sars Covid-19 Amplification negative negative [facility]: [address] [facility] 07/17/2020 CBC W/ Auto Diff Normal White Blood Count 4.8 10 4.0-10.0 10 [facility]: [address] [facility] Normal Red Blood Count 4.09 10 4.00-5.40 10 [facility]: [address] [facility] Normal Hemoglobin 12.1 g/dL 12.0-15.5 g/dL [facility]: [address] [facility] Normal Hematocrit 37.1 % 36.0-47.0 % [facility]: [address] [facility] Normal Mean Corpuscular Volume 90.7 fL 80.0 -96.0 fL [facility]: [address] [facility] Normal Mean Corpuscular Hemoglobin 29.6 pg 27.0-33.0 pg [facility]: [address] [facility] Normal Mean Corpuscular HGB Conc 32.6 g/dL 32.0-36.5 g/dL [facility]: [address] [facility] Normal Red Cell Distribution Width 13.0 % 1 1.5-14.5 % [facility]: [address] [facility] Normal Platelet Count, Automated 185 10 150 -450 10 [facility]: [address] [facility] Normal Neutrophils % 64.4 % 36.0-66.0 % [facility]: [address] [facility] Low Lymph % 21.7 % 24.0-44.0 % [facility]: [address] [facility] Normal [place] % 7.5 % 2.0-8.0 % [facility]: [address] [facility] High Eos % 5.0 % 0.0-3.0 % [facility]: 0 [facility] Normal Baso % 0.8 % 0.0-1.0 % [facility]: [address] [place] [address] Normal Immature Granulocyte % 0.6 % 0-3.0 % [facility]: [address] [place] [address] Normal Nucleated Red Blood Cell % 0.0 % 0- 0 % [facility]: [address] [place] [address] Normal Neutrophils # 3.1 10 1.5-8.5 10 [facility]: 0 [facility] Low Lymph # 1.0 10 1.5-5.[address] [facility]: [address] [place] [address] Normal [place] # 0.4 10 0.0-0.[address] [facility]: 0 [facility] Normal Eos # 0.2 10 0.0-0.[address] [facility]: [address] [facility] Normal Baso # 0.0 10 0.0-0.[address] [facility]: [address] [place] [address] 07/17/2020 CMP, Serum or Plasma Blood venous High Glu cose, Fasting 108 mg/dL 70-100 mg/dL [facility] nter: [address] [place] [address] Blood venous Normal Blood Urea Nitrogen 11 mg/dL 7-18 mg/dL [facility]: [address] [place] [address] Blood venous Normal Creatinine for GFR 1.14 mg/dL 0.55-1.30 mg/dL [facility]: [address] [place] [address] Blood venous Low Glomerular Filtration Rate 56 .8 >60 [facility]: [address] [place] [address] Blood venous Normal Sodium Level 142 mEq/L 136-14 5 mEq/L [facility]: [address] [place] [address] Blood venous Normal Potassium Serum 4.5 mEq/L 3.5 -5.1 mEq/L [facility]: [address] [facility] Blood venous High Chloride Level 108 mEq/L 98-1 07 mEq/L [facility]: [address] [facility] Blood venous Normal Carbon Dioxide Level 27 mEq/L 21-32 mEq/L [facility]: [address] [facility] Blood venous Low Anion Gap 7 mEq/L 8-16 mEq/L [facility]: [address] [facility] Blood venous Normal Calcium Level 8.8 mg/dL 8.5-1 0.1 mg/dL [facility]: [address] [facility] Blood venous Normal AST/SGOT 19 U/L 7-37 U/L [facility]: [address] [facility] Blood venous Normal ALT/SGPT 22 U/L 12-78 U/L [facility]: [address] [facility] Blood venous High Alkaline Phosphatase 136 U/L 45-117 U/L [facility]: [address] [facility] Blood venous Normal Bilirubin,total 0.3 mg/dL 0.2 -1.0 mg/dL [facility]: [address] [facility] Blood venous Normal Total Protein 6.7 gm/dL 6.4-8 .2 gm/dL [facility]: [address] [place] [address] Blood venous Normal Albumin 3.5 gm/dL 3.2-5.2 gm/ dL [facility]: 0 [facility] Blood venous Low Albumin/globulin Ratio 1.1 1.2-2.2 [facility]: 0 [facility] 07/17/2020 Lipid Panel, Blood Blood venous Normal Trigl ycerides Level 133 mg/dL <150 mg/dL [facility] nter: [address] [facility] Blood venous Normal Cholesterol Level 183 mg/dL < 200 mg/dL [facility]: [address] [facility] Blood venous Low HDL Cholesterol 39 mg/dL >40 mg/dL [facility]: [address] [facility] Blood venous High LDL Cholesterol 117 mg/dL <10 0 mg/dL [facility]: [address] [place] [address] Blood venous Normal Non-hdl-c 144 mg/dL Fi [facility]: [address] [place] [address] Blood venous Normal Cholesterol Risk Ratio 4.692 <5 [facility]: [address] [place] [address] 07/17/2020 TSH + Free T4, Serum Blood venous High Thyroid Stimulating Hormone 6.030 uIU/mL 0.358-3.740 uIU/mL [facility]: [address] [place] [address] Blood venous Low Free T4 0.55 NG/dL 0.76-1.46 NG/dL [facility]: [address] [place] [address] 07/05/2020 CBC W/ Auto Diff Normal White Blood Count 4.0 10 4.0-10.0 10 [facility]: [address] [place] [address] Low Red Blood Count 3.69 10 4.00-5.40 10 [facility]: [address] [place] [address] Low Hemoglobin 11.1 g/dL 12.0-15.5 g/dL [facility]: [address] [place] [address] Low Hematocrit 34.5 % 36.0-47.0 % [facility]: [address] [place] [address] Normal Mean Corpuscular Volume 93.5 fL 80.0 -96.0 fL [facility]: [address] [place] [address] Normal Mean Corpuscular Hemoglobin 30.1 pg 27.0-33.0 pg [facility]: [address] [place] [address] Normal Mean Corpuscular HGB Conc 32.2 g/dL 32.0-36.5 g/dL [facility]: [address] [place] [address] Normal Red Cell Distribution Width 12.8 % 1 1.5-14.5 % [facility]: [address] [place] [address] Low Platelet Count, Automated 143 10 150 -450 10 [facility]: [address] [place] [address] Normal Neutrophils % 59.8 % 36.0-66.0 % [facility]: [address] [facility] Low Lymph % 23.5 % 24.0-44.0 % Final [facility]: [address] [facility] High [place] % 10.6 % 2.0-8.0 % Final [facility]: [address] [facility] High Eos % 5.3 % 0.0-3.0 % [facility]: [address] [facility] Normal Baso % 0.5 % 0.0-1.0 % [facility]: [address] [facility] Normal Immature Granulocyte % 0.3 % 0-3.0 % [facility]: [address] [facility] Normal Nucleated Red Blood Cell % 0.0 % 0- 0 % [facility]: [address] [facility] Normal Neutrophils # 2.4 10 1.5-8.5 10 [facility]: [address] [facility] Low Lymph # 0.9 10 1.5-5.[address] [facility]: [address] [facility] Normal [place] # 0.4 10 0.0-0.[address] [facility]: [address] [facility] Normal Eos # 0.2 10 0.0-0.[address] [facility]: [address] [facility] Normal Baso # 0.0 10 0.0-0.[address] [facility]: [address] [facility] 07/05/2020 CMP, Serum or Plasma High Glucose, Fastin g 106 mg/dL 70-100 mg/dL [facility]: [address] [facility] Normal Blood Urea Nitrogen 12 mg/dL 7-18 mg /dL [facility]: 0 [facility] Normal Creatinine for GFR 1.20 mg/dL 0.55-1 .30 mg/dL [facility]: [address] [facility] Low Glomerular Filtration Rate 53.5 >6 0 [facility]: [address] [facility] Normal Sodium Level 141 mEq/L 136-145 mEq/L [facility]: [address] [facility] Normal Potassium Serum 4.5 mEq/L 3.5-5.1 mE q/L [facility]: [address] [facility] Normal Chloride Level 107 mEq/L 98-107 mEq/ L [facility]: [address] [facility] Normal Carbon Dioxide Level 29 mEq/L 21-32 mEq/L [facility]: [address] [facility] Low Anion Gap 5 mEq/L 8-16 mEq/L [facility]: [address] [facility] Normal Calcium Level 8.9 mg/dL 8.5-10.1 mg/ dL [facility]: [address] [facility] Normal AST/SGOT 31 U/L 7-37 U/L [facility]: [address] [facility] Normal ALT/SGPT 42 U/L 12-78 U/L [facility]: [address] [facility] High Alkaline Phosphatase 129 U/L 45-117 U/L [facility]: [address] [facility] Normal Bilirubin,total 0.3 mg/dL 0.2-1.0 mg /dL [facility]: [address] [facility] Normal Total Protein 6.6 gm/dL 6.4-8.2 gm/d L [facility]: [address] [facility] Normal Albumin 3.5 gm/dL 3.2-5.2 gm/dL [place] [facility]: [address] [facility] Low Albumin/globulin Ratio 1.1 1.2-2. 2 [facility]: [address] [facility] 07/05/2020 Magnesium, Serum or Plasma Normal Magnesium Level 2.1 mg/dL 1.8-2.4 mg/dL [facility]: [address] [facility] 07/05/2020 C Reactive Protein, QN, Serum or Plasma High C Reactive Protein Quantitativ 1.85 mg/dL 0.00-0.30 mg/dL Final [facility]: [address] [facility] 07/05/2020 Procalcitonin, Serum Normal Procalcitonin 0.05 Final [facility]: [address] [facility] 06/26/2020 Lipid Panel, Blood High Triglycerides Lev el 200 mg/dL <150 mg/dL Final [facility]: [address] [facility] Normal Cholesterol Level 193 mg/dL <200 mg/ dL Final [facility]: [address] [facility] Low HDL Cholesterol 37 mg/dL >40 mg/dL [place] [facility]: [address] [facility] High LDL Cholesterol 116 mg/dL <100 mg/dL Final [facility]: [address] [facility] Normal Non-hdl-c 156 mg/dL Final [facility]: [address] [facility] High Cholesterol Risk Ratio 5.216 <5 [facility]: [address] [facility] 06/24/2020 Influenza A/B RSV Covid Amp Normal Influenza a Amplification negative negative Final [facility] nter: [address] [facility] Normal Influenza B Amplification negative n egative Final [facility]: [address] [facility] Normal RSV Amplification negative negative Final [facility]: [address] [facility] Normal Sars Covid-19 Amplification negative negative Final [facility]: [address] [facility] 06/24/2020 Influenza A/B RSV Covid Amp Normal Influenza a Amplification negative negative Final [facility] nter: [address] [facility] Normal Influenza B Amplification negative n egative Final [facility]: [address] [facility] Normal RSV Amplification negative negative Final [facility]: [address] [facility] Normal Sars Covid-19 Amplification negative negative Final [facility]: [address] [facility] 05/21/2020 Cbc Normal White Blood Count 5.2 10 4.0-10. 0 10 Final [facility]: [address] [facility] Normal Red Blood Count 4.24 10 4.00-5.40 10 [facility]: [address] [facility] Normal Hemoglobin 12.7 g/dL 12.0-15.5 g/dL [facility]: [address] [facility] Normal Hematocrit 40.4 % 36.0-47.0 % [facility]: [address] [facility] Normal Mean Corpuscular Volume 95.3 fL 80.0 -96.0 fL [facility]: [address] [facility] Normal Mean Corpuscular Hemoglobin 30.0 pg 27.0-33.0 pg [facility]: [address] [facility] Low Mean Corpuscular HGB Conc 31.4 g/dL 32.0-36.5 g/dL [facility]: [address] [facility] High Red Cell Distribution Width 14.8 % 1 1.5-14.5 % [facility]: [address] [facility] Low Platelet Count, Automated 136 10 150 -450 10 [facility]: [address] [facility] Normal Nucleated Red Blood Cell % 0.0 % 0- 0 % [facility]: [address] [facility] 05/21/2020 Drug Screen, Urine Normal Amphetamines Leve l Urine negative negative [facility]: [address] [facility] Normal Barbiturates Urine negative negative [facility]: [address] [facility] Normal Benzodiazepines Urine negative negat doron [facility]: [address] [facility] Normal Cannabinoids Urine negative negative [facility]: [address] [facility] Normal Cocaine Metabolite Urine negative ne gative [facility]: [address] [facility] High Methadone Urine positive negative Fi nal [facility]: [address] [facility] Normal Opiates Urine negative negative [place] [facility]: [address] [facility] Normal Phencyclidine Urine negative negativ e [facility]: [address] [facility] 05/21/2020 Hepatic Function Panel, Serum Normal AST/SG OT 19 U/L 7-37 U/L [facility]: 0 [facility] Normal ALT/SGPT 21 U/L 12-78 U/L [facility]: 0 [facility] High Alkaline Phosphatase 129 U/L 45-117 U/L [facility]: [address] [facility] Normal Bilirubin,total 0.3 mg/dL 0.2-1.0 mg /dL [facility]: [address] [facility] Normal Bilirubin,direct 0.1 mg/dL 0.0-0.2 m g/dL [facility]: 0 [facility] Normal Total Protein 7.6 gm/dL 6.4-8.2 gm/d L [facility]: 0 [facility] Normal Albumin 4.2 gm/dL 3.2-5.2 gm/dL [place] [facility]: 0 [facility] Normal Albumin/globulin Ratio 1.2 1.2-2. 2 [facility]: 0 [facility] 05/21/2020 BMP, Serum or Plasma Normal Glucose, Fastin g 92 mg/dL 70-100 mg/dL [facility]: [address] [facility] Normal Blood Urea Nitrogen 7 mg/dL 7-18 mg/ dL [facility]: 0 [facility] High Creatinine for GFR 1.53 mg/dL 0.55-1 .30 mg/dL [facility]: 0 [facility] Low Glomerular Filtration Rate 40.4 >6 0 [facility]: [address] [facility] Normal Sodium Level 139 mEq/L 136-145 mEq/L [facility]: 0 [facility] Normal Potassium Serum 4.5 mEq/L 3.5-5.1 mE q/L [facility]: 0 [facility] Normal Chloride Level 105 mEq/L 98-107 mEq/ L [facility]: 0 [facility] Normal Carbon Dioxide Level 28 mEq/L 21-32 mEq/L [facility]: [address] [facility] Low Anion Gap 6 mEq/L 8-16 mEq/L [facility]: [address] [facility] Normal Calcium Level 9.1 mg/dL 8.5-10.1 mg/ dL [facility]: [address] [facility] 05/21/2020 Ethanol, Blood Normal Ethyl Alcohol (Ethano l) < 0.003 % 0.000- 0.010 % [facility]: [address] [facility] 05/21/2020 Salicylate, Quantitative, Serum Low Sali cylate Level 3.2 mg/dL 5.0-30.0 mg/dL [facility]: [address] [facility] 05/21/2020 Acetaminophen, Serum Low Acetaminophen L evel < 2.0 ug/mL 10.0- 30.0 ug/mL [facility]: [address] [facility] 05/21/2020 TSH, Serum or Plasma High Thyroid Stimulating Hormone 90.900 uIU/mL 0.358-3.740 uIU/mL [facility] nter: [address] [facility] 05/21/2020 beta-HCG, Qualitative, Serum or Plasma Normal HCG, Serum Qualitative negative negative [facility]: [address] [facility] 05/21/2020 Influenza A/B RSV Covid Amp Normal Influenza a Amplification negative negative [facility] nter: [address] [facility] Normal Influenza B Amplification negative n egative [facility]: [address] [facility] Normal RSV Amplification negative negative [facility]: [address] [facility] Normal Sars Covid-19 Amplification negative negative [facility]: [address] [facility] 03/05/2020 Cbc Normal White Blood Count 5.4 10 4.0-10. 0 10 [facility]: [address] [facility] Normal Red Blood Count 4.20 10 4.00-5.40 10 [facility]: [address] [facility] Normal Hemoglobin 12.1 g/dL 12.0-15.5 g/dL [facility]: [address] [facility] Normal Hematocrit 39.0 % 36.0-47.0 % [facility]: [address] [facility] Normal Mean Corpuscular Volume 92.9 fL 80.0 -96.0 fL [facility]: [address] [facility] Normal Mean Corpuscular Hemoglobin 28.8 pg 27.0-33.0 pg [facility]: [address] [facility] Low Mean Corpuscular HGB Conc 31.0 g/dL 32.0-36.5 g/dL [facility]: 0 [facility] Normal Red Cell Distribution Width 14.2 % 1 1.5-14.5 % [facility]: 0 [facility] Low Platelet Count, Automated 97 10 150 -450 10 [facility]: [address] [facility] High Nucleated Red Blood Cell % 0.4 % 0- 0 % [facility]: [address] [facility] 03/05/2020 Reticulated Platelets, Percentage, Automated Count, Blood Normal Immature Platelet Fraction % 1.3 % 0.0-9.59 % [facility]: [address] [facility] 03/05/2020 BMP, Serum or Plasma Normal Glucose, Fastin g 97 mg/dL 70-100 mg/dL [facility]: [address] [facility] Normal Blood Urea Nitrogen 10 mg/dL 7-18 mg /dL [facility]: 0 [facility] High Creatinine for GFR 1.57 mg/dL 0.55-1 .30 mg/dL [facility]: 0 [facility] Low Glomerular Filtration Rate 39.5 >6 0 [facility]: [address] [facility] Normal Sodium Level 143 mEq/L 136-145 mEq/L [facility]: 0 [facility] Normal Potassium Serum 3.5 mEq/L 3.5-5.1 mE q/L [facility]: [address] [facility] High Chloride Level 110 mEq/L 98-107 mEq/ L [facility]: [address] [facility] Normal Carbon Dioxide Level 26 mEq/L 21-32 mEq/L [facility]: [address] [facility] Low Anion Gap 7 mEq/L 8-16 mEq/L [facility]: [address] [facility] Normal Calcium Level 8.5 mg/dL 8.5-10.1 mg/ dL [facility]: [address] [facility] 03/05/2020 Magnesium, Serum or Plasma Normal Magnesium Level 2.0 mg/dL 1.8-2.4 mg/dL [facility]: [address] [facility] 03/04/2020 Cbc Normal White Blood Count 4.4 10 4.0-10. 0 10 [facility]: [address] [place] [address] Normal Red Blood Count 4.12 10 4.00-5.40 10 [facility]: [address] [facility] Low Hemoglobin 11.9 g/dL 12.0-15.5 g/dL [facility]: 0 [facility] Normal Hematocrit 39.4 % 36.0-47.0 % [facility]: 0 [facility] Normal Mean Corpuscular Volume 95.6 fL 80.0 -96.0 fL [facility]: 0 [facility] Normal Mean Corpuscular Hemoglobin 28.9 pg 27.0-33.0 pg [facility]: 0 [facility] Low Mean Corpuscular HGB Conc 30.2 g/dL 32.0-36.5 g/dL [facility]: 0 [facility] Normal Red Cell Distribution Width 14.2 % 1 1.5-14.5 % [facility]: 0 [facility] Low Platelet Count, Automated 101 10 150 -450 10 [facility]: 0 [facility] Normal Nucleated Red Blood Cell % 0.0 % 0- 0 % [facility]: [address] [facility] 03/04/2020 BMP, Serum or Plasma Normal Glucose, Fastin g 86 mg/dL 70-100 mg/dL [facility]: [address] [facility] Normal Blood Urea Nitrogen 8 mg/dL 7-18 mg/ dL [facility]: 0 [facility] High Creatinine for GFR 1.57 mg/dL 0.55-1 .30 mg/dL [facility]: [address] [facility] Low Glomerular Filtration Rate 39.5 >6 0 [facility]: [address] [facility] Normal Sodium Level 145 mEq/L 136-145 mEq/L [facility]: 0 [facility] Normal Potassium Serum 3.8 mEq/L 3.5-5.1 mE q/L [facility]: 0 [facility] High Chloride Level 111 mEq/L 98-107 mEq/ L [facility]: [address] [facility] Normal Carbon Dioxide Level 30 mEq/L 21-32 mEq/L [facility]: [address] [facility] Low Anion Gap 4 mEq/L 8-16 mEq/L [facility]: 0 [facility] Low Calcium Level 8.2 mg/dL 8.5-10.1 mg/ dL [facility]: [address] [facility] 03/04/2020 Magnesium, Serum or Plasma Normal Magnesium Level 2.1 mg/dL 1.8-2.4 mg/dL [facility]: [address] [facility] 03/03/2020 Cbc Normal White Blood Count 4.7 10 4.0-10. 0 10 [facility]: 0 [facility] Low Red Blood Count 3.99 10 4.00-5.40 10 [facility]: 0 [facility] Low Hemoglobin 11.6 g/dL 12.0-15.5 g/dL [facility]: 0 [facility] Normal Hematocrit 38.3 % 36.0-47.0 % [facility]: 830 [facility] Normal Mean Corpuscular Volume 96.0 fL 80.0 -96.0 fL [facility]: 830 [facility] Normal Mean Corpuscular Hemoglobin 29.1 pg 27.0-33.0 pg [facility]: 0 [facility] Low Mean Corpuscular HGB Conc 30.3 g/dL 32.0-36.5 g/dL [facility]: 830 [facility] Normal Red Cell Distribution Width 14.3 % 1 1.5-14.5 % [facility]: [address] [place] [address] Low Platelet Count, Automated 111 10 150 -450 10 [facility]: 0 [facility] Normal Nucleated Red Blood Cell % 0.0 % 0- 0 % [facility]: [address] [place] [address] 03/03/2020 BMP, Serum or Plasma Normal Glucose, Fastin g 70 mg/dL 70-100 mg/dL [facility]: 83 0 [facility] Normal Blood Urea Nitrogen 8 mg/dL 7-18 mg/ dL [facility]: [address] [place] [address] High Creatinine for GFR 1.48 mg/dL 0.55-1 .30 mg/dL [facility]: [address] [place] [address] Low Glomerular Filtration Rate 42.2 >6 0 [facility]: 830 [facility] Normal Sodium Level 144 mEq/L 136-145 mEq/L [facility]: 0 [facility] Normal Potassium Serum 3.6 mEq/L 3.5-5.1 mE q/L [facility]: 0 [facility] High Chloride Level 111 mEq/L 98-107 mEq/ L [facility]: 0 [facility] Normal Carbon Dioxide Level 29 mEq/L 21-32 mEq/L [facility]: 0 [facility] Low Anion Gap 4 mEq/L 8-16 mEq/L [facility]: 0 [facility] Low Calcium Level 8.0 mg/dL 8.5-10.1 mg/ dL [facility]: 0 [facility] 03/03/2020 Magnesium, Serum or Plasma Normal Magnesium Level 2.1 mg/dL 1.8-2.4 mg/dL [facility]: 83 0 [facility] 03/03/2020 Thyroid Panel, Serum Normal T Uptake 30 % 30 -39 % [facility]: 0 [facility] Normal Thyroxine (T4) 5.2 ug/dL 4.5-12.0 ug /dL [facility]: [address] [place] [address] Normal Free Thyroxine Index 1.6 % 1.3-4.8 % [facility]: [address] [place] [address] High Thyroid Stimulating Hormone 16 4.000 uIU/mL 0.358-3.740 uIU/mL [facility]: 0 [facility] 03/03/2020 Vitamin D 1,25 Dihydroxy Normal Vit raymond D 1,25 Dihydroxy 40.6 pg/mL 19.9-79.3 pg/mL [facility] nter: 0 [facility] 03/02/2020 Cbc Normal White Blood Count 6.5 10 4.0-10. 0 10 [facility]: [address] [place] [address] Low Red Blood Count 3.65 10 4.00-5.40 10 [facility]: 0 [facility] Low Hemoglobin 10.7 g/dL 12.0-15.5 g/dL [facility]: 0 [facility] Low Hematocrit 35.6 % 36.0-47.0 % [facility]: [address] [place] [address] High Mean Corpuscular Volume 97.5 fL 80.0 -96.0 fL [facility]: 0 [facility] Normal Mean Corpuscular Hemoglobin 29.3 pg 27.0-33.0 pg [facility]: [address] [place] [address] Low Mean Corpuscular HGB Conc 30.1 g/dL 32.0-36.5 g/dL [facility]: 830 [facility] Normal Red Cell Distribution Width 14.1 % 1 1.5-14.5 % [facility]: 0 [facility] Low Platelet Count, Automated 106 10 150 -450 10 [facility]: 830 [facility] Normal Nucleated Red Blood Cell % 0.0 % 0- 0 % [facility]: 830 [facility] 03/02/2020 BMP, Serum or Plasma Low Glucose, Fastin g 63 mg/dL 70-100 mg/dL [facility]: 83 0 [facility] Normal Blood Urea Nitrogen 10 mg/dL 7-18 mg /dL [facility]: 0 [facility] High Creatinine for GFR 1.39 mg/dL 0.55-1 .30 mg/dL [facility]: 0 [facility] Low Glomerular Filtration Rate 45.4 >6 0 [facility]: 830 [facility] High Sodium Level 146 mEq/L 136-145 mEq/L [facility]: 830 [facility] Normal Potassium Serum 3.8 mEq/L 3.5-5.1 mE q/L [facility]: 830 [facility] High Chloride Level 114 mEq/L 98-107 mEq/ L [facility]: 830 [facility] Normal Carbon Dioxide Level 27 mEq/L 21-32 mEq/L [facility]: 830 [facility] Low Anion Gap 5 mEq/L 8-16 mEq/L [facility]: 830 [facility] Low Calcium Level 7.6 mg/dL 8.5-10.1 mg/ dL [facility]: 830 [facility] 03/02/2020 Magnesium, Serum or Plasma Normal Magnesium Level 2.2 mg/dL 1.8-2.4 mg/dL [facility]: 83 0 [facility] 03/02/2020 Glucose, Fingerstick, Blood Normal Bedside Glucose 96 mg/dL 70- 105 mg/dL [facility]: 83 0 [facility] 03/02/2020 Thyroid Panel, Serum Normal T Uptake 30 % 30 -39 % [facility]: 830 [facility] Low Thyroxine (T4) 3.5 ug/dL 4.5-12.0 ug /dL [facility]: 830 [facility] Low Free Thyroxine Index 1.1 % 1.3-4.8 % [facility]: 830 [facility] High Thyroid Stimulating Hormone 27 3.000 uIU/mL 0.358-3.740 uIU/mL [facility]: 830 [facility] 03/01/2020 Gas Panel, Arterial Blood Low ABG pH (Ar terial) 7.328 units 7.350-7.450 units [facility]: 83 0 [facility] High ABG Partial Pressure CO2 45.2 mmHg 3 5.0-45.0 mmHg [facility]: 830 [facility] Normal ABG Partial Pressure O2 91.2 mmHg 75 .0-100.0 mmHg [facility]: 830 [facility] Normal ABG Total CO2 24.6 mEq/L 22.0-29.0 m Eq/L [facility]: 830 [facility] Normal Abg Hco3 23.2 mEq/L 22.0-26.0 mEq/L [facility]: 830 [facility] Low ABG Base Excess -2.8 -2.0-2.0 [place] [facility]: 830 [facility] Normal ABG Standard HCO3 22.1 mEq/L 22.0-26 .0 mEq/L [facility]: 830 [facility] Normal ABG O2 Saturation 96.9 % 95.0-99.0 % [facility]: 830 [facility] 03/01/2020 Gas Panel, Arterial Blood Low ABG pH (Ar terial) 7.306 units 7.350-7.450 units [facility]: 83 0 [facility] High ABG Partial Pressure CO2 51.5 mmHg 3 5.0-45.0 mmHg [facility]: 830 [facility] Normal ABG Partial Pressure O2 80.4 mmHg 75 .0-100.0 mmHg [facility]: 830 [facility] Normal ABG Total CO2 26.7 mEq/L 22.0-29.0 m Eq/L [facility]: 830 [facility] Normal Abg Hco3 25.1 mEq/L 22.0-26.0 mEq/L [facility]: 830 [facility] Normal ABG Base Excess -1.7 -2.0-2.0 [facility]: 0 [facility] Normal ABG Standard HCO3 23.0 mEq/L 22.0-26 .0 mEq/L [facility]: 0 [facility] Normal ABG O2 Saturation 95.4 % 95.0-99.0 % [facility]: 830 [facility] 03/01/2020 Gas Panel, Arterial Blood Low ABG pH (Ar terial) 7.327 units 7.350-7.450 units [facility]: 83 0 [facility] High ABG Partial Pressure CO2 52.4 mmHg 3 5.0-45.0 mmHg [facility]: 830 [facility] Normal ABG Partial Pressure O2 87.0 mmHg 75 .0-100.0 mmHg [facility]: 830 [facility] Normal ABG Total CO2 28.4 mEq/L 22.0-29.0 m Eq/L [facility]: 830 [facility] High Abg Hco3 26.8 mEq/L 22.0-26.0 mEq/L [facility]: 830 [facility] Normal ABG Base Excess 0.2 -2.0-2.0 [facility]: 830 [facility] Normal ABG Standard HCO3 24.6 mEq/L 22.0-26 .0 mEq/L [facility]: 0 [facility] Normal ABG O2 Saturation 96.6 % 95.0-99.0 % [facility]: [address] [place] [address] 03/01/2020 Angiotensin 1 Converting Enzym Normal Angiotensin 1 Converting Enzym 61 U/L 14-82 U/L [facility]: [address] [place] [address] 02/29/2020 Cbc Normal White Blood Count 8.8 10 4.0-10. 0 10 [facility]: [address] [place] [address] Normal Red Blood Count 4.24 10 4.00-5.40 10 [facility]: [address] [place] [address] Normal Hemoglobin 12.0 g/dL 12.0-15.5 g/dL [facility]: [address] [place] [address] Normal Hematocrit 40.1 % 36.0-47.0 % [facility]: [address] [place] [address] Normal Mean Corpuscular Volume 94.6 fL 80.0 -96.0 fL [facility]: [address] [place] [address] Normal Mean Corpuscular Hemoglobin 28.3 pg 27.0-33.0 pg [facility]: [address] [place] [address] Low Mean Corpuscular HGB Conc 29.9 g/dL 32.0-36.5 g/dL [facility]: [address] [place] [address] Normal Red Cell Distribution Width 14.0 % 1 1.5-14.5 % [facility]: [address] [place] [address] Normal Platelet Count, Automated 151 10 150 -450 10 [facility]: [address] [place] [address] Normal Nucleated Red Blood Cell % 0.0 % 0- 0 % [facility]: [address] [place] [address] 02/29/2020 BMP, Serum or Plasma High Glucose, Fastin g 131 mg/dL 70-100 mg/dL [facility]: 83 0 [facility] Normal Blood Urea Nitrogen 10 mg/dL 7-18 mg /dL [facility]: [address] [place], [place] [address] High Creatinine for GFR 1.87 mg/dL 0.55-1 .30 mg/dL [facility]: 0 [facility] Low Glomerular Filtration Rate 32.3 >6 0 [facility]: 830 [facility] Normal Sodium Level 140 mEq/L 136-145 mEq/L [facility]: 830 [facility] Normal Potassium Serum 4.2 mEq/L 3.5-5.1 mE q/L [facility]: 830 [facility] Normal Chloride Level 106 mEq/L 98-107 mEq/ L [facility]: [address] [place] [address] Normal Carbon Dioxide Level 28 mEq/L 21-32 mEq/L [facility]: [address] [place] [address] Low Anion Gap 6 mEq/L 8-16 mEq/L [facility]: [address] [place] [address] Low Calcium Level 8.4 mg/dL 8.5-10.1 mg/ dL [facility]: 0 [facility] 02/29/2020 Magnesium, Serum or Plasma Normal Magnesium Level 2.2 mg/dL 1.8-2.4 mg/dL [facility]: 83 0 [facility] 02/29/2020 Gas Panel, Arterial Blood Low ABG pH (Ar terial) 7.346 units 7.350-7.450 units [facility]: 83 0 [facility] High ABG Partial Pressure CO2 51.7 mmHg 3 5.0-45.0 mmHg [facility]: [address] [place] [address] Low ABG Partial Pressure O2 59.0 mmHg 75 .0-100.0 mmHg [facility]: 0 [facility] High ABG Total CO2 29.2 mEq/L 22.0-29.0 m Eq/L [facility]: 0 [facility] High Abg Hco3 27.6 mEq/L 22.0-26.0 mEq/L [facility]: 0 [facility] Normal ABG Base Excess 1.2 -2.0-2.0 [facility]: 830 [facility] Normal ABG Standard HCO3 25.3 mEq/L 22.0-26 .0 mEq/L [facility]: 830 [facility] Low ABG O2 Saturation 90.2 % 95.0-99.0 % [facility]: 0 [facility] 02/29/2020 Gas Panel, Arterial Blood Low ABG pH (Ar terial) 7.327 units 7.350-7.450 units [facility]: 83 0 [facility] High ABG Partial Pressure CO2 55.0 mmHg 3 5.0-45.0 mmHg [facility]: [address] [place] [address] Normal ABG Partial Pressure O2 76.0 mmHg 75 .0-100.0 mmHg [facility]: [address] [place] [address] High ABG Total CO2 29.8 mEq/L 22.0-29.0 m Eq/L [facility]: [address] [place] [address] High Abg Hco3 28.2 mEq/L 22.0-26.0 mEq/L [facility]: 0 [facility] Normal ABG Base Excess 1.2 -2.0-2.0 [facility]: 0 [facility] Normal ABG Standard HCO3 25.5 mEq/L 22.0-26 .0 mEq/L [facility]: 0 [facility] Normal ABG O2 Saturation 95.0 % 95.0-99.0 % [facility]: 830 [facility] 02/28/2020 CBC W/ Auto Diff Normal White Blood Count 6.0 10 4.0-10.0 10 [facility]: 0 [facility] Normal Red Blood Count 4.71 10 4.00-5.40 10 [facility]: 0 [facility] Normal Hemoglobin 13.8 g/dL 12.0-15.5 g/dL [facility]: [address] [place] [address] Normal Hematocrit 44.9 % 36.0-47.0 % [facility]: 830 [facility] Normal Mean Corpuscular Volume 95.3 fL 80.0 -96.0 fL [facility]: [address] [place] [address] Normal Mean Corpuscular Hemoglobin 29.3 pg 27.0-33.0 pg Final [facility]: [address] [place] [address] Low Mean Corpuscular HGB Conc 30.7 g/dL 32.0-36.5 g/dL Final [facility]: [address] [place] [address] Normal Red Cell Distribution Width 14.3 % 1 1.5-14.5 % [facility]: [address] [place] [address] Low Platelet Count, Automated 148 10 150 -450 10 [facility]: 830 [facility] High Neutrophils % 67.9 % 36.0-66.0 % [facility]: 830 [facility] Low Lymph % 17.1 % 24.0-44.0 % Final [facility]: 830 [facility] High [place] % 6.0 % 0.0-5.0 % Final [facility]: 0 [facility] High Eos % 3.8 % 0.0-3.0 % [facility]: 0 [facility] High Baso % 1.2 % 0.0-1.0 % Final [facility]: 0 [facility] High Immature Granulocyte % 4.0 % 0-3.0 % [facility]: [address] [place] [address] Normal Nucleated Red Blood Cell % 0.0 % 0- 0 % [facility]: 0 [facility] Normal Neutrophils # 4.1 10 1.5-8.5 10 [facility]: 830 [facility] Low Lymph # 1.0 10 1.5-5.[address] [facility]: 830 [facility] Normal [place] # 0.4 10 0.0-0.[address] [facility]: 830 [facility] Normal Eos # 0.2 10 0.0-0.[address] [facility]: 830 [facility] Normal Baso # 0.1 10 0.0-0.[address] [facility]: 830 [facility] 02/28/2020 Istat Chem8+ Panel Normal Istat HCT 46.0 % 38. 0-51.0 % [facility]: 830 [facility] Normal Istat Glucose 94 mg/dL 70-105 mg/dL [facility]: 830 [facility] Normal Istat Sodium 138 mEq/L 136-145 mEq/L [facility]: 830 [facility] Panic High Istat Potassium 6.9 mEq/L 3.5-5. 1 mEq/L [facility]: 830 [facility] Low Istat Ca++ 4.4 mg/dL 4.5-5.3 mg/dL [facility]: 830 [facility] Normal Istat Chloride 100 mEq/L 98-109 mEq/ L [facility]: 830 [facility] High Istat CO2 32.0 mm/L 23.0-27.0 mm/L [facility]: 830 [facility] Normal Istat BUN 12 mg/dL 8-26 mg/dL [facility]: 830 [facility] High Istat Creatinine 2.3 mg/dL 0.6-1.3 m g/dL [facility]: 830 [facility] 02/28/2020 Ctni Istat Normal Istat Troponin 0.01 NG/m L 0.00-0.08 NG/mL [facility]: 830 [facility] 02/28/2020 SARS CoV 2 RNA (COVID-19), QL, quality control lab tech-PCR, Respirat ory Specimen Normal Sars Covid-19 Amplification negative negative [facility]: 830 [facility] 02/28/2020 Hepatic Function Panel, Serum Normal AST/SG OT 18 U/L 7-37 U/L [facility]: 0 [facility] Low ALT/SGPT 11 U/L 12-78 U/L [facility]: 830 [facility] Normal Alkaline Phosphatase 98 U/L 45-117 U /L [facility]: 830 [facility] Normal Bilirubin,total 0.3 mg/dL 0.2-1.0 mg /dL [facility]: 830 [facility] Normal Bilirubin,direct < 0.1 mg/dL 0.0-0.2 mg/dL [facility]: [address] [place] [address] Normal Total Protein 7.8 gm/dL 6.4-8.2 gm/d L [facility]: [address] [place] [address] Normal Albumin 4.0 gm/dL 3.2-5.2 gm/dL [place] [facility]: 0 [facility] Low Albumin/globulin Ratio 1.1 1.2-2. 2 [facility]: 0 [facility] 02/28/2020 BMP, Serum or Plasma High Glucose, Fastin g 108 mg/dL 70-100 mg/dL [facility]: 83 0 [facility] Normal Blood Urea Nitrogen 11 mg/dL 7-18 mg /dL [facility]: 0 [facility] High Creatinine for GFR 2.30 mg/dL 0.55-1 .30 mg/dL [facility]: 0 [facility] Low Glomerular Filtration Rate 25.4 >6 0 [facility]: 830 [facility] Normal Sodium Level 137 mEq/L 136-145 mEq/L [facility]: 0 [facility] Normal Potassium Serum 4.4 mEq/L 3.5-5.1 mE q/L [facility]: 0 [facility] Normal Chloride Level 103 mEq/L 98-107 mEq/ L [facility]: [address] [place] [address] Normal Carbon Dioxide Level 31 mEq/L 21-32 mEq/L [facility]: [address] [place] [address] Low Anion Gap 3 mEq/L 8-16 mEq/L [facility]: [address] [place] [address] Normal Calcium Level 9.6 mg/dL 8.5-10.1 mg/ dL [facility]: [address] [place] [address] 02/28/2020 TSH, Serum or Plasma High Thyroid Stimulating Hormone 190.000 uIU/mL 0.358-3.740 uIU/mL [facility] nter: [address] [place] [address] 02/28/2020 beta-HCG, Qualitative, Serum or Plasma Normal HCG, Serum Qualitative negative negative [facility]: [address] [place] [address] 02/28/2020 Istat ABG Normal Istat pH 7.359 units 7.350-7. 450 units [facility]: [address] [place] [address] High Istat pCO2 51.0 mmHg 35.0-45.0 mmHg [facility]: [address] [place] [address] CRITICAL LOW Istat pO2 46.0 mmHg 80-105 mmH g [facility]: [address] [place] [address] High Istat TCO2 30.0 mmol/L 23.0-27.0 mmo l/L [facility]: [address] [place] [address] High Istat HCO3 28.7 mmol/L 22.0-26.0 mmo l/L [facility]: [address] [place] [address] Normal Istat Base Excess 3.0 mmol/L -2.0-3. 0 mmol/L [facility]: [address] [place] [address] Low Istat So2 79 % 95-98 % [facility]: [address] [place] [address] 02/28/2020 CK (Creatine Kinase) Mb, Quantitative, Blood Hi gh CPK Creatine Phosphokinase 277 U/L 26-192 U/L [facility]: [address] [place] [address] 02/28/2020 Uric Acid, Serum or Plasma High Uric Acid 8.3 mg/dL 2.6-6.0 mg/dL [facility]: 83 0 [facility] 02/28/2020 Magnesium, Serum or Plasma Normal Magnesium Level 2.1 mg/dL 1.8-2.4 mg/dL [facility]: 83 0 [facility] 02/28/2020 Osmolality, Serum Normal Osmolality Serum 292 mOsm/kg 275-295 mOsm/kg [facility]: 83 0 [facility] 02/28/2020 T4, Free, Serum Low Free T4 0.19 NG/dL 0.76 -1.46 NG/dL [facility]: 830 [facility] 02/28/2020 Triiodothyronine Free, QN, Serum or Plasma Low Free T3 < 0.5 pg/mL 2.2-4.0 pg/mL [facility] nter: 830 [facility] 02/28/2020 D-dimer, Quant, Plasma High D-dimer Quant 1194.11 NG/mL <500 NG/mL [facility]: 83 0 [facility] 02/28/2020 Procalcitonin, Serum Normal Procalcitonin <0.0 5 [facility]: 830 [facility] 02/28/2020 Urinalysis, Dipstick High Appearance, Urine cloudy clear [facility]: 830 [facility] Normal Color, Urine yellow yellow [facility]: 830 [facility] Normal pH,urine 7.0 units 5.0-9.0 units Fin [facility]: 830 [facility] Normal Specific [place] Urine Auto 1.016 1 .002-1.035 [facility]: 830 [facility] Normal Protein, Urine Auto negative mg/dL n egative mg/dL [facility]: 830 [facility] Normal Glucose, Urine (UA) Auto negative mg /dL negative mg/dL [facility]: 830 [facility] Normal Ketone, Urine Auto negative mg/dL ne gative mg/dL [facility]: 830 [facility] Normal Urobilinogen, Urine Auto 0.2 mg/dL 0 .0-2.0 mg/dL [facility]: 830 [facility] Normal Bilirubin, Urine Auto negative negat doron [facility]: 830 [facility] Normal Nitrite, Urine Auto positive negativ e [facility]: 830 [facility] High Leukocyte Esterase, Urine Auto 1+ negative [facility]: 830 [facility] Normal Blood, Urine Blood negative negative [facility]: 830 [facility] High WBC, Urine Auto 13 /hpf 0-3 /hpf [facility]: 830 [facility] Normal RBC, Urine Auto 1 /hpf 0-3 /hpf [facility]: 830 [facility] High Bacteria, Urine Auto 3+ negative [facility]: 830 [facility] Normal Squamous Epithelial Cell Ur AU 5 /hp f 0-6 /hpf [facility]: 830 [facility] Normal Transitional Epithelial Auto <1 /hpf none /hpf [facility]: 830 [facility] Normal Mucus, Urine small negative [facility]: 830 [facility] Normal Hyaline Cast, Urine Auto 0 /lpf 0-1 /lpf [facility]: 830 [facility] 02/28/2020 Osmolality, Urine Normal Osmolality Urine 523 mOsm/kg 500-800 mOsm/kg [facility]: 83 0 [facility] 02/28/2020 Creatinine, Urine Normal Creatinine,random Urine 165.0 mg/dL [facility]: 830 [facility] 02/28/2020 Sodium, Urine Normal Sodium,random Urine 61 mE q/L [facility]: 830 [facility] 02/28/2020 Potassium, Urine Normal Potassium Random Ur ine 96.0 mEq/L [facility]: [address] [facility] Past Encounters 01/23/2021 Cellulitis of Skin; Tobacco User; Mixed Anxiety and Depressive Disorder Karl Lott MD: [address] [place] [phone], Ph. 12/12/2020 Mixed Anxiety and Depressive Disorder; Hypothyroidism; Syringomyelia Karl Lott MD: [address] [place] [phone], Ph. 11/21/2020 Long-term Drug Therapy; Hypothyroidism; Closed Fracture of Lower Limb Marlee Gaspar MD: [address] [place] [phone], Ph. 09/07/2020 Body Mass Index 40+ - Severely Obese; Nicotine Dependence with Current Use; Abscess of Skin And/or Subcutaneous Tissue Marlee Gaspar MD: [address] [place] [phone], Ph. 09/04/2020 Covid-19 Marlee Gaspar MD: [address] [place] [phone], Ph. 07/17/2020 Mixed Anxiety and Depressive Disorder; Sarcoidosis; Hypothyroidism Karl Lott MD: [address] [place] [phone], Ph. 06/04/2020 Mixed Anxiety and Depressive Disorder; Hypothyroidism Karl Lott MD: [address] [place] [phone], Ph. 04/27/2020 Severe Recurrent Major Depression without Psychotic Features; Hypothyroidism; Sarcoidosis; Nicotine Dependence with Current Use [facility]: [address] [place] [phone], Ph. 02/28/2020 Dyspnea; Fall ANGELA Johnson: [address] [place] [phone], Ph. Social History Tobacco Smoking Status Light Tobacco Smoker (1/4 pack per da y) Vaccine List Vaccine Type influenza, injectable, quadrivalent, pre servative free 02/02/20190.5 mL Plan of Care Reminders Provider Appointments None recorded. Lab None recorded. Referral None recorded. Procedures None recorded. Surgeries None recorded. Imaging None recorded. Vitals 01/23/2021 02:00PM TELEHEALTH 20 Height 63 in 12/12/2020 02:00PM ESTABLISHED [id number] Height Weight BMI Blood Pressure 63 in [...] 42.9 kg/m2 105/73 mm[Hg] 06/04/2020 01:40PM ESTABLISHED [id number] Height Weight BMI Blood Pressure 63 in [...]
[2021-01-27] MEDS ORDERED: CLIN150C17 PO (22:45)
[2021-01-27] MEDS ORDERED: QUET50TA4 PO (22:45)
[2021-01-27 23:19] LABS: HEMOGLOBIN 12.1 g/dl (12.0-15.5); MEAN CORPUSCULAR HEMOGLOBIN 29.1 pg (27.0-33.0); MEAN CORPUSCULAR HGB CONC 31.8 g/dl (32.0-36.5); MEAN CORPUSCULAR VOLUME 91.3 fl (80.0-96.0); PLATELET COUNT, AUTOMATED 146 10^3/uL (150-450); RED BLOOD COUNT 4.16 10^6/uL (4.00-5.40); WHITE BLOOD COUNT 4.9 10^3/uL (4.0-10.0)
[2021-01-27 23:42] LABS: HCG, SERUM QUALITATIVE NEGATIVE (NEGATIVE)
[2021-01-28 00:10] LABS: ACETAMINOPHEN LEVEL < 2.0 UG/ML (10.0-30.0); ALBUMIN 3.8 GM/DL (3.2-5.2); ALT/SGPT 19 U/L (12-78); BILIRUBIN,DIRECT < 0.1 MG/DL (0.0-0.2); BILIRUBIN,TOTAL 0.3 MG/DL (0.2-1.0); BLOOD UREA NITROGEN 13 MG/DL (7-18); CALCIUM LEVEL 8.8 MG/DL (8.5-10.1); CARBON DIOXIDE LEVEL 32 MEQ/L (21-32); CHLORIDE LEVEL 105 MEQ/L (98-107); CREATININE FOR GFR 2.11 MG/DL (0.55-1.30); ETHYL ALCOHOL (ETHANOL) < 0.003 % (0.000-0.010); GLOMERULAR FILTRATION RATE 27.9 (>60); GLUCOSE, FASTING 92 MG/DL (70-100); POTASSIUM SERUM 4.2 MEQ/L (3.5-5.1); SALICYLATE LEVEL 4.8 MG/DL (5.0-30.0); SODIUM LEVEL 140 MEQ/L (136-145); TOTAL PROTEIN 7.5 GM/DL (6.4-8.2)
[2021-01-28 00:32] LABS: AMPHETAMINES LEVEL URINE NEGATIVE (NEGATIVE); BARBITURATES URINE NEGATIVE (NEGATIVE); BENZODIAZEPINES URINE NEGATIVE (NEGATIVE); CANNABINOIDS URINE POSITIVE (NEGATIVE); COCAINE METABOLITE URINE NEGATIVE (NEGATIVE); METHADONE URINE POSITIVE (NEGATIVE); OPIATES URINE NEGATIVE (NEGATIVE); PHENCYCLIDINE URINE NEGATIVE (NEGATIVE)
[2021-01-28] MEDS ORDERED: LORazepam 1 MG TAB PO ONE (00:35)
[2021-01-28] MEDS ORDERED: GABA800T4 PO (03:29)
[2021-01-28] MEDS ORDERED: med rec comment (03:30)
[2021-01-28 06:41] LABS: FREE T3 < 0.5 PG/ML (2.2-4.0)
[2021-01-28] MEDS ORDERED: NS 1,000 ML IV ONE ×2 (06:55)
--- NOTE | 2021-01-28 08:30 | MHIPNPDOC ---
[facility] Progress Note Progress Note DATE OF SERVICE: 01/28/21 Patient presented by PSA, meets criteria for involuntary inpatient admission. Presents with suicidal ideation with intent to jump off a bridge or hang herself. Toxicology screen positive for methadone and cannabinoids. Presents a risk for safety and self-harm. Vital Signs Vital Signs Date Time Temp Pulse Resp B/P (MAP) Pulse Ox O2 Delivery O2 Flow Rate FiO2 01/28/21 05:52 98.4 62 18 130/68 (88) 100 Room Air Laboratory Data 24H Labs Laboratory Tests 2 01/27/21 23:04: Nucleated Red Blood Cells % (auto) 0.0, Anion Gap 3L, Glomerular Filtration Rate 27.9L, Calcium Level 8.8, Total Bilirubin 0.3, Direct Bilirubin < 0.1, Aspartate Amino Transf (AST/SGOT) 25, Alanine Aminotransferase (ALT/SGPT) 19, Alkaline Phosphatase 143H, Total Protein 7.5, Albumin 3.8, Albumin/Globulin Ratio 1.0L, Thyroid Stimulating Hormone (TSH) 242.000H, Free Thyroxine 0.20L, Free Triiodothyronine < 0.5L, Human Chorionic Gonadotropin, Qual NEGATIVE, Salicylates Level 4.8L, Acetaminophen Level < 2.0L, Ethyl Alcohol Level < 0.003 01/27/21 23:56: Urine Opiates Screen NEGATIVE, Urine Methadone Screen POSITIVEH, Urine Barbiturates Screen NEGATIVE, Urine Phencyclidine Screen NEGATIVE, Urine Amphetamines Screen NEGATIVE, Urine Benzodiazepines Screen NEGATIVE, Urine Cocaine Metabolite Screen NEGATIVE, Urine Cannabinoids Screen POSITIVEH CBC/BMP Laboratory Tests 01/27/21 23:04 Allergies Coded Allergies: No Known Allergies (Verified , 10/22/18) MAXX GUZMAN MD Jan 28, 2021 08:30
[2021-01-28] MEDS ORDERED: buPROPion **XL** TABLET 150MG (WELLBUTRIN XL) PO SCH (09:00)
[2021-01-28] MEDS ORDERED: MED NOTE (09:25)
[2021-01-28] MEDS ORDERED: HOME MED LIST COMPLETE! XX SCH (09:30)
[2021-01-28] MEDS ORDERED: METHADONE 10 MG TAB (S0109) PO ONE (09:35)
[2021-01-28] MEDS ORDERED: PILL CUTTER 1 EACH XX PRN (09:50)
[2021-01-28] MEDS: GABAPENTIN 400MG CAP PO SCH ×3 (10:39→21:10)
[2021-01-28 11:23] LABS: BLOOD UREA NITROGEN 11 MG/DL (7-18); CALCIUM LEVEL 8.2 MG/DL (8.5-10.1); CARBON DIOXIDE LEVEL 35 MEQ/L (21-32); CHLORIDE LEVEL 106 MEQ/L (98-107); CREATININE FOR GFR 1.89 MG/DL (0.55-1.30); GLOMERULAR FILTRATION RATE 31.7 (>60); GLUCOSE, FASTING 73 MG/DL (70-100); POTASSIUM SERUM 4.3 MEQ/L (3.5-5.1); SODIUM LEVEL 140 MEQ/L (136-145)
[2021-01-28] MEDS: LEVOTHYROXINE 150MCG TABLET (0.15MG) PO SCH (12:00)
[2021-01-28 14:00] LABS: RSV AMPLIFICATION NEGATIVE (NEGATIVE)
[2021-01-28] MEDS ORDERED: LORazepam 1 MG TAB PO STA (16:47)
--- NOTE | 2021-01-28 18:23 | ECGEPIP ---
[facility] - ED Test Date: 2021-01-28 Pat Name: EDWIN LARKIN Department: Room: - Gender: Female [employer]: MARIA C : 1980 Requested By: MUNIR Jarvis Order Number: [id number] Reading MD: Rosy Cary Measurements Intervals [place] Rate: 56 P: 57 WY: 152 QRS: 34 QRSD: 94 T: -31 QT: 420 QTc: 405 Interpretive Statements Sinus bradycardia with sinus arrhythmia Nonspecific T wave abnormality less pronounced stt compared 10/02/20 Electronically Signed on 01-28-2021 18:23:02 EDT by Rsoy Cary
[2021-01-28] MEDS ORDERED: ACETAMINOPHEN TAB 650MG DOSE (2X325MG) PO PRN (20:00)
[2021-01-28] MEDS ORDERED: MOM 30ML SUSPENSION UDC PO PRN (20:00)
[2021-01-28] MEDS ORDERED: MAALOX 30 ML SUSP *UDC PO PRN (20:00)
[2021-01-28] MEDS ORDERED: traZODone 50 MG TAB PO PRN (20:00)
[2021-01-28] MEDS: QUEtiapine FUMARATE 50MG TAB PO SCH (21:10)
[2021-01-28 21:45] VITALS: BP 136/95
[2021-01-29] MEDS: LEVOTHYROXINE 150MCG TABLET (0.15MG) PO SCH (05:41)
[2021-01-29] MEDS: GABAPENTIN 400MG CAP PO SCH ×3 (08:14→20:27)
[2021-01-29] MEDS ORDERED: NICOTINE 21MG/24HR 1 EA TRANSDERMAL TD SCH (09:00)
[2021-01-29] MEDS ORDERED: METHADONE 10 MG TAB (S0109) PO SCH (09:00)
[2021-01-29] MEDS ORDERED: buPROPion **XL** TABLET 150MG (WELLBUTRIN XL) PO SCH (09:00)
[2021-01-29] MEDS ORDERED: INFLUENZA QUADRIVALENT PF VACCINE 0.5ML SYRINGE IM ONE (09:00)
[2021-01-29] MEDS ORDERED: NICOTINE 21MG/24HR 1 EA TRANSDERMAL TD PRN (09:25)
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
[2021-01-29 16:12] VITALS: BP 114/83
[2021-01-29] MEDS ORDERED: LEVO150T7 PO (19:03)
[2021-01-29] MEDS ORDERED: ABIL1TAB13 PO (19:03)
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
[2021-01-29] MEDS: QUEtiapine FUMARATE 50MG TAB PO SCH (20:26)
[2021-01-29 20:49] VITALS: BP 132/78
[2021-01-29] MEDS ORDERED: ARIPiprazole 2 MG TAB PO SCH (21:00)
[2021-01-30] MEDS ORDERED: SYNT150T PO (00:24)
[2021-01-30] MEDS ORDERED: ABIL1TAB13 PO (00:24)
[2021-01-30] MEDS ORDERED: NICO21PAT TD (15:26)
== END 2021-01-29 21:22 | disposition short-term general hospital (02) | DRG 750 ==
LOC: M ED 22:33 → EEVIPCON 01-28 20:00 → M ED INP 01-28 20:00 → M PSY 01-28 21:15
PROVIDERS: ADMIT Student in an Organized Health Care Education/Training Program; ATTEND Psychiatry & Neurology Psychiatry
DX: F25.1 Schizoaffective disorder, depressive type (principal); E66.01 Morbid (severe) obesity due to excess calories; N18.30 Chronic kidney disease, stage 3 unspecified; R45.851 Suicidal ideations; F43.10 Post-traumatic stress disorder, unspecified; F60.3 Borderline personality disorder; F17.200 Nicotine dependence, unspecified, uncomplicated; R94.6 Abnormal results of thyroid function studies; R94.4 Abnormal results of kidney function studies; F12.10 Cannabis abuse, uncomplicated; E03.9 Hypothyroidism, unspecified; D86.9 Sarcoidosis, unspecified; Z86.16 Personal history of COVID-19; Z63.8 Other specified problems related to primary support group; Z62.810 Personal history of physical and sexual abuse in childhood; Z79.899 Other long term (current) drug therapy

== ENCOUNTER 2021-01-29 20:17 | Observation (INO) | payer OTHER ==
[~2021-01-29] VITALS: Ht 160 cm; Wt 109.1 kg
[~2021-01-29 20:17] MED LIST changes: +ABIL1TAB13 PO; +CLIN150C17 PO; +MED NOTE; +med rec comment
[2021-01-29] MEDS ORDERED: NS 500 ML IV ONE (20:25)
[2021-01-29] MEDS ORDERED: MOM 30ML SUSPENSION UDC PO PRN (20:25)
[2021-01-29] MEDS ORDERED: ACETAMINOPHEN TAB 650MG DOSE (2X325MG) PO PRN (20:25)
--- NOTE | 2021-01-29 20:26 | HPEPDOC ---
[facility] Medical History & Physical Date of Admission Jan 29, 2021 Date of Service: Jan 29, 2021 Attending Physician: EDMOND KEYS MD History and Physical CHIEF COMPLAINT: [40 y/o female patient of [facility] with persistent lethargy, depressed mood, poor oral intake] HISTORY OF PRESENT ILLNESS: [This is a 40 y/o female with a pmh of hld, gerd, ckd3, sarcoidosis never treated d/t noncompliance with outpatient f/u, h ypothyroidism noncompliant with synthroid, schizoaffective d/o who was admitted to inpatient mental health on 01/27 for symptoms of persistent lethargy, depressed mood and poor oral intake. Patient was initially found to have acute kidney injury upon presentation to the ED on 01/27 with a cr of 2.11 from baseline of 1. Patient was treated with ivf in the ed and admitted to psych. U ortunately, it does not seem patient initially responded as cr as of yesterday still 1.9. I saw and examined patient on 01/29 who was in her room in the mental health [facility]. Patient tells me that she has been depressed and fatigued for some time. Patient tells me that she did not have an appetite or much thirst at home before originally coming to the emergency department. Patient tells me that she has also not been taking her synthroid at home. Patient tells me that her daughter has been ill at home with mild upper respiratory symptoms, but she herself has only had a mild cough. Patient, at the time of my exam, denies any fevers, chills, chest pain, sob, abd pain, n/v/d/c, pedal edema, syncope. Of note, patient's TSH noted to be 242 on labwork on 01/27.] PAST MEDICAL HISTORY: 1. [See HPI PAST SURGICAL HISTORY: 1. [C Section]. 2. [Tubal ligation]. SOCIAL HISTORY: Tobacco use:[Current smoker] ETOH: [Former] Illicit drug use: [Hx opioid use, currently on methadone] FAMILY HISTORY: Reviewed - none pertinent ALLERGIES: Please see below. REVIEW OF SYSTEMS: CONSTITUTIONAL: [Denies fever, chills]. HEENT: [Denies uri type sx]. CARDIOVASCULAR: [Denies chest pain, palpitations]. RESPIRATORY: [Admits to cough. Denies sob]. GASTROINTESTINAL: [Denies abd pain, n/v/d/c]. GENITOURINARY: [Denies dysuria]. SKIN: [Denies rash]. MUSCULOSKELETAL: [Denies acute joint/back pain]. NEUROLOGICAL: [Denies syncope, paresthesias]. ENDOCRINE: [Hx of hypothyroidism]. HEMATOLOGIC/LYMPHATIC: [Denies hx of vte]. HOME MEDICATIONS: Please see below. PHYSICAL EXAMINATION: VITAL SIGNS: Please see below. GENERAL APPEARANCE: [This is a 40 y/o female who is alert and oriented to all questioning. She does not appear to be in any acute distress]. HEENT: [No mass or lesion. EOMI. No scleral icterus. Nares patent. Oral mucosa moist]. CARDIOVASCULAR: [Regular rate, rhythm. No murmurs, rubs, gallops]. LUNGS: [Good air flow b/l. No wheezing, rales, rhonchi]. ABDOMEN: [Soft, nontender]. MUSCULOSKELETAL: [No joint deformity noted]. EXTREMITIES: [Scattered ecchymosis of various healing stages on RLE. No pedal edema appreciated. Pulses intact.]. NEUROLOGICAL: [Speech clear. A+Ox3. No focal deficit]. PSYCHIATRIC: [Depressed mood. Flat affect]. LABORATORY DATA: See below. IMAGING: [None performed] MICROBIOLOGY: Please see below. ASSESSMENT: [This is a 40 y/o female with a pmh of hld, gerd, ckd3, sarcoidosis never treated d/t noncompliance with outpatient f/u, hypothyroidism noncompliant with synthroid, schizoaffective d/o who was admitted to inpatient mental health on 01/27 for symptoms of persistent lethargy, depressed mood and poor oral intake. Patient was initially found to have acute kidney injury upon presentation to the ED on 01/27 with a cr of 2.11 from baseline of 1. Patient was treated with ivf in the ed and admitted to psych. Unfortunately, it does not seem patient initially responded as cr as of yesterday still 1.9. Of note, patient's TSH noted to be 242 on labwork on 01/27]. . PLAN: 1. [CASPER on CKD3 - Patients cr acutely elevated to 2.11 from baseline of 1 on 01/27, persistently elevated to 1.89 on 01/28 - Will repeat bmp now to assess where cr is - Most likely etiology is pre-renal as patient has had poor oral intake 2/2 symptomatic hypothyroidism mixed with psych issues - Will begin ivf - UA and urine electrolytes ordered - Renal us ordered - holding gabapentin d/t acutely decreased kidney function - had to discuss with patient the importance of this despite her concerns of having withdrawal symptoms without her gabapentin 2. Hypothyroidism - Patient's tsh acutely elevated to 242, t4 low at 0.2 - patient admits to noncompliance with synthroid at home - Patient not showing signs or symptoms of myxedema coma at this time - however will run electrolytes and am cortisol to be sure - will recheck tsh/t4/t3 - restart daily synthroid and encourage compliance 3. Schizoaffective d/o - continue at home seroquel, abilify, wellbutrin, trazodone 4. Opioid use d/o - continue methadone - bowel regimen 5. Nicotine use - patch ordered DVT prophylaxis - mechanical]. Home Medications Scheduled Aripiprazole (Abilify) 2 Mg Tablet, 2 MG PO QHS for MOOD Bupropion HCl (Wellbutrin Xl) 300 Mg Tab.er.24h, 300 MG PO DAILY Levothyroxine Sodium (Levothyroxine Sodium) 150 Mcg Tablet, 150 MCG PO DAILY@06 for HYPOTHYROIDISM Allergies Coded Allergies: No Known Allergies (Verified , 10/22/18) A-FIB/CHADSVASC A-FIB History Current/History of A-Fib/PAF?: No Current PO Anticoag Therapy: No MARIO OLIVARES Jan 29, 2021 20:26
[2021-01-29] MEDS ORDERED: MIRALAX *UNIT DOSE* 17GM PACKET PO PRN (20:45)
[2021-01-29] MEDS ORDERED: traZODone 50 MG TAB PO SCH (21:00)
[2021-01-29 22:00] VITALS: BP 119/76
[2021-01-29] MEDS ORDERED: PILL CUTTER 1 EACH XX PRN (22:10)
[2021-01-29 22:14] LABS: MEAN CORPUSCULAR HEMOGLOBIN 28.4 pg (27.0-33.0); MEAN CORPUSCULAR HGB CONC 31.4 g/dl (32.0-36.5); MEAN CORPUSCULAR VOLUME 90.4 fl (80.0-96.0); PLATELET COUNT, AUTOMATED 103 10^3/uL (150-450); RED BLOOD COUNT 3.87 10^6/uL (4.00-5.40); WHITE BLOOD COUNT 4.9 10^3/uL (4.0-10.0)
[2021-01-29] MEDS: DOCUSATE SODIUM 100MG CAPSULE PO SCH (22:58)
[2021-01-30] MEDS: NS 1,000 ML IV SCH ×3 (00:20→12:51)
[2021-01-30] MEDS ORDERED: ABIL1TAB13 PO (00:24)
[2021-01-30] MEDS ORDERED: SYNT150T PO (00:24)
[2021-01-30] MEDS ORDERED: HOME MED LIST COMPLETE! XX SCH (00:25)
[2021-01-30 03:43] LABS: CALCIUM LEVEL 9.7 MG/DL (8.5-10.1); CREATININE FOR GFR 2.01 MG/DL (0.55-1.30); FREE T4 0.4 NG/DL (0.76-1.46); GLOMERULAR FILTRATION RATE 29.5 (>60); MAGNESIUM LEVEL 2.1 MG/DL (1.8-2.4); POTASSIUM SERUM 4.1 MEQ/L (3.5-5.1)
[2021-01-30] MEDS ORDERED: NICOTINE 21MG/24HR 1 EA TRANSDERMAL TD PRN (06:00)
[2021-01-30] MEDS ORDERED: LEVOTHYROXINE 150MCG TABLET (0.15MG) PO SCH (06:00)
[2021-01-30] MEDS: DOCUSATE SODIUM 100MG CAPSULE PO SCH (07:51)
[2021-01-30 08:19] LABS: FREE T3 0.7 PG/ML (2.2-4.0)
[2021-01-30 08:42] LABS: HEMATOCRIT 34.4 % (36.0-47.0); HEMOGLOBIN 10.8 g/dl (12.0-15.5); MEAN CORPUSCULAR HEMOGLOBIN 28.6 pg (27.0-33.0); MEAN CORPUSCULAR HGB CONC 31.4 g/dl (32.0-36.5); MEAN CORPUSCULAR VOLUME 91.2 fl (80.0-96.0); PLATELET COUNT, AUTOMATED 102 10^3/uL (150-450); RED BLOOD COUNT 3.77 10^6/uL (4.00-5.40); WHITE BLOOD COUNT 4.1 10^3/uL (4.0-10.0)
[2021-01-30] MEDS ORDERED: buPROPion **XL** TABLET 150MG (WELLBUTRIN XL) PO SCH (09:00)
[2021-01-30] MEDS ORDERED: METHADONE 10 MG TAB (S0109) PO SCH (09:00)
[2021-01-30 09:07] LABS: CALCIUM LEVEL 8.8 MG/DL (8.5-10.1); CREATININE FOR GFR 1.85 MG/DL (0.55-1.30); GLOMERULAR FILTRATION RATE 32.5 (>60); MAGNESIUM LEVEL 2.1 MG/DL (1.8-2.4); POTASSIUM SERUM 3.8 MEQ/L (3.5-5.1)
--- NOTE | 2021-01-30 09:34 | REP ---
INDICATION: keyona. COMPARISON: 12/06/2019. TECHNIQUE: Real-time sonographic evaluation of the kidneys is performed. FINDINGS: Renal cortical echogenicity pattern is normal bilaterally and contours are smooth. There is no evidence of hydronephrosis, cyst, mass, or calculus in either kidney. The right kidney measures 9.3 x 5.1 x 4.4 cm. Left renal dimensions are 11.0 x 5.2 x 4.8 cm. The urinary bladder is empty. IMPRESSION: Negative renal ultrasound. <Electronically signed by Levy Beasley > 01/30/21 0900
[2021-01-30 10:35] LABS: ALBUMIN 3.2 GM/DL (3.2-5.2); BILIRUBIN,TOTAL 0.2 MG/DL (0.2-1.0); CORTISOL AM 4.6 UG/DL (4.3-22.4); FREE THYROXINE INDEX 0.7 % (1.3-4.8); THYROXINE (T4) 2.3 UG/DL (4.5-12.0); TOTAL PROTEIN 6.3 GM/DL (6.4-8.2)
[2021-01-30] MEDS ORDERED: GABAPENTIN 100 MG CAP PO ONE (12:35)
[2021-01-30 14:00] VITALS: BP 114/74
[2021-01-30 14:16] LABS: CHOLESTEROL RISK RATIO 6.416 (<5)
[2021-01-30] MEDS ORDERED: NICO21PAT TD (15:26)
[2021-01-30] MEDS ORDERED: QUEtiapine FUMARATE 50MG TAB PO SCH (21:00)
[2021-01-30] MEDS ORDERED: ARIPiprazole 2 MG TAB PO SCH (21:00)
--- NOTE | 2021-01-31 09:48 | DS.PDOC ---
Discharge Summary General Date of Admission Jan 29, 2021 at 21:30 Date of Discharge 01/30/21 Discharge Summary PROCEDURES PERFORMED DURING STAY: [None]. DISCHARGE DIAGNOSES: #vince/ckd #hypothyroidism #schizoaffective disorder #opioid use disorder #nicotine abuse COMPLICATIONS/CHIEF COMPLAINT: Vince, Noncompliance With Medication Regimen. HPI/hospital course: 40-year-old female admitted to EMU after a brief transfer to medical surgical floor for acute kidney injury and hypothyroid. Her acute kidney injury was deemed to be secondary to dehydration, improving with intravenous fluids. She has a history of known hypothyroidism and admits to noncompliance with her oral supplementation. She was deemed to be medically stable for return to inpatient mental health unit. On examination today she denies chest pain, shortness of breath, headaches, abdominal pain, nausea, vomiting, diarrhea. DISCHARGE MEDICATIONS: Please see below. ALLERGIES: Please see below. PHYSICAL EXAMINATION ON DISCHARGE: Vital Signs: reviewed General: NAD, lying comfortably in bed HEENT: NC/AT, EOMI Neck: supple, no masses Chest: lungs CTA B/L Heart: +S1S2, RRR Abd: soft, NT, ND, +BS, obese Ext: no edema Skin: no rashes MSK: full ROM at large joints Neuro: no gross focal deficits Psych: AAOx3 LABORATORY DATA: Please see below. ACTIVITY: [As tolerated]. DISPOSITION: [facility]. DISCHARGE INSTRUCTIONS: 1. follow up as per psychiatry DISCHARGE CONDITION: [Stable]. TIME SPENT ON DISCHARGE: 35 minutes. Vital Signs/I&Os Vital Signs Date Time Temp Pulse Resp B/P (MAP) Pulse Ox O2 Delivery O2 Flow Rate FiO2 01/30/21 14:00 97.9 61 18 114/74 (87) 92 01/29/21 22:00 Room Air I&O- Last 24 Hours up to 6 AM 01/31/21 06:00 Intake Total 300 ml Output Total 400 ml Balance -100 ml Laboratory Data Labs 24H Laboratory Tests 2 01/30/21 14:16: Urine Color YELLOW, Urine Appearance HAZY, Urine pH 6.0, Urine Specific [place] 1.008, Urine Protein NEGATIVE, Urine Glucose (UA) NEGATIVE, Urine Ketones NEGATIVE, Urine Blood NEGATIVE, Urine Nitrite NEGATIVE, Urine Bilirubin NEGATIVE, Urine Urobilinogen 0.2, Urine Leukocyte Esterase 1+H, Urine WBC (Auto) 10H, Urine RBC (Auto) 2, Urine Hyaline Casts (Auto) 0, Urine Bacteria (Auto) 1+H, Urine Squamous Epithelial Cells 2, Urine Sperm (Auto) Microbiology Microbiology 01/30/21 Urine Culture, Received Pending Discharge Medications Scheduled Levothyroxine Sodium (Synthroid) 150 Mcg Tablet, 150 MCG PO DAILY, (Reported) Scheduled PRN Nicotine (Nicotine Patch) 21 Mg Patch.td24, 1 PATCH TD DAILYPRN PRN for NICOTINE WITHDRAWAL Allergies Coded Allergies: No Known Allergies (Verified , 10/22/18) HAO EDWARDS MD Jan 31, 2021 09:48
== END 2021-01-30 16:40 ==
LOC: PREINTOOBSV 20:35 → M MS5PR 21:30
PROVIDERS: ADMIT Family Medicine; ATTEND Family Medicine
DX: N17.9 Acute kidney failure, unspecified (principal); N18.30 Chronic kidney disease, stage 3 unspecified; E03.9 Hypothyroidism, unspecified; F25.9 Schizoaffective disorder, unspecified; F11.90 Opioid use, unspecified, uncomplicated; R53.83 Other fatigue; F32.9 Major depressive disorder, single episode, unspecified; R63.0 Anorexia; F17.210 Nicotine dependence, cigarettes, uncomplicated; Z79.899 Other long term (current) drug therapy; Z91.14 Patient's other noncompliance with medication regimen

== ENCOUNTER 2021-01-30 15:37 | Inpatient (IN) | payer OTHER ==
[~2021-01-30] VITALS: Ht 160 cm; Wt 105.5 kg
[~2021-01-30 15:37] MED LIST changes: +UNRESOLVED CLARIFICATION ENTRY XX SCH
[2021-01-30] MEDS ORDERED: MAALOX 30 ML SUSP *UDC PO PRN (16:10)
[2021-01-30] MEDS ORDERED: MOM 30ML SUSPENSION UDC PO PRN (16:10)
[2021-01-30 16:19] VITALS: BP 134/98
[2021-01-30] MEDS: OLANZapine ORAL DISINTEGRATING TAB 5MG PO PRN (18:23)
[2021-01-30] MEDS: DOCUSATE SODIUM 100MG CAPSULE PO SCH (20:54)
[2021-01-30] MEDS: ARIPiprazole 2 MG TAB PO SCH (20:54)
[2021-01-30] MEDS: QUEtiapine FUMARATE 50MG TAB PO SCH (20:55)
[2021-01-31] MEDS: LEVOTHYROXINE 150MCG TABLET (0.15MG) PO SCH (05:56)
[2021-01-31 06:52] VITALS: BP_SYST 105; BP_SYST 128; BP_DIAS 61; BP_DIAS 69
[2021-01-31] MEDS: DOCUSATE SODIUM 100MG CAPSULE PO SCH ×2 (08:03→20:01)
[2021-01-31] MEDS: NICOTINE 21MG/24HR 1 EA TRANSDERMAL TD SCH (08:03)
[2021-01-31] MEDS: buPROPion **XL** TABLET 150MG (WELLBUTRIN XL) PO SCH (08:03)
[2021-01-31] MEDS: METHADONE 10 MG TAB (S0109) PO SCH (08:04)
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
[2021-01-31] MEDS: OLANZapine ORAL DISINTEGRATING TAB 5MG PO PRN ×3 (09:25→20:02)
--- NOTE | 2021-01-31 09:53 | HPEPDOC ---
[facility] Medical History & Physical Date of Admission Jan 30, 2021 Date of Service: Jan 31, 2021 History and Physical CHIEF COMPLAINT: suicidal ideation HISTORY OF PRESENT ILLNESS: 40-year-old female admitted to EMU after a brief transfer to medical surgical floor for acute kidney injury and hypothyroid. Her acute kidney injury was deemed to be secondary to dehydration, improving with intravenous fluids. She has a history of known hypothyroidism and admits to noncompliance with her oral supplementation. She was deemed to be medically stable for return to inpatient mental health unit. On examination today she denies chest pain, shortness of breath, headaches, abdominal pain, nausea, vomiting, diarrhea. PAST MEDICAL HISTORY: #hypothyroidism #opioid use disorder #nicotine abuse #schizoaffective disorder/severe depression SOCIAL HISTORY: Tobacco use:Current smoker Illicit drug use: Hx opioid use, currently on methadone FAMILY HISTORY: Reviewed - none pertinent ALLERGIES: Please see below. REVIEW OF SYSTEMS: Negative to date. HOME MEDICATIONS: Please see below. PHYSICAL EXAMINATION: Vital Signs: reviewed General: NAD, lying comfortably in bed HEENT: NC/AT, EOMI Neck: supple, no masses Chest: lungs CTA B/L Heart: +S1S2, RRR Abd: soft, NT, ND, +BS, obese Ext: no edema Skin: no rashes MSK: full ROM at large joints Neuro: no gross focal deficits Psych: AAOx3 LABORATORY DATA: See below. MICROBIOLOGY: Please see below. A/P: 40-year-old female admitted to EMU after a brief transfer to medical surgical floor for acute kidney injury and hypothyroid. Her acute kidney injury was deemed to be secondary to dehydration, improving with intravenous fluids. She has a history of known hypothyroidism and admits to noncompliance with her oral supplementation. She was deemed to be medically stable for return to inpatient mental health unit. #CASPER/CKD - likely prerenal/dehydration - improving - renal US unrevealing - repeat labs pending today - holding gabapentin due to CASPER for now - discussed with nephrology - based on chart review she easily slips into CASPER - encourage fluid intake for now #Hypothyroidism - patient admits to noncompliance with synthroid at home - continue daily synthroid #Schizoaffective d/o w/ severe depression - as per psychiatry #Opioid use d/o - continue methadone - bowel regimen #Nicotine use - nicotine replacement therapy Vital Signs Vital Signs Date Time Temp Pulse Resp B/P (MAP) Pulse Ox O2 Delivery O2 Flow Rate FiO2 01/31/21 06:52 98.1 63 18 105/69 (81) 100 Room Air Home Medications Scheduled Levothyroxine Sodium (Synthroid) 150 Mcg Tablet, 150 MCG PO DAILY Scheduled PRN Nicotine (Nicotine Patch) 21 Mg Patch.td24, 1 PATCH TD DAILYPRN PRN for NICOTINE WITHDRAWAL Allergies Coded Allergies: No Known Allergies (Verified , 10/22/18) A-FIB/CHADSVASC A-FIB History Current/History of A-Fib/PAF?: No Age/Risk Factor Scoring CHADSVASC: CHADSVASC Response (Comments) Value Age Risk Factor Age < 65 years old 0 Gender Risk Factor Female 1 Hx of CHF No 0 Hx of Diabetes Yes 1 Total 2 HAO EDWARDS MD Jan 31, 2021 09:53
[2021-01-31 13:22] LABS: CALCIUM LEVEL 9.1 MG/DL (8.5-10.1); CREATININE FOR GFR 1.86 MG/DL (0.55-1.30); GLOMERULAR FILTRATION RATE 32.3 (>60); POTASSIUM SERUM 4.4 MEQ/L (3.5-5.1)
[2021-01-31 15:30] VITALS: BP 106/80
[2021-01-31] MEDS: ARIPiprazole 2 MG TAB PO SCH (20:01)
[2021-01-31] MEDS: QUEtiapine FUMARATE 50MG TAB PO SCH (20:01)
[2021-02-01] MEDS: LEVOTHYROXINE 150MCG TABLET (0.15MG) PO SCH (06:16)
[2021-02-01 06:35] VITALS: BP 92/59
[2021-02-01] MEDS: METHADONE 10 MG TAB (S0109) PO SCH (08:29)
[2021-02-01] MEDS: DOCUSATE SODIUM 100MG CAPSULE PO SCH ×2 (08:30→21:33)
[2021-02-01] MEDS: buPROPion **XL** TABLET 150MG (WELLBUTRIN XL) PO SCH (08:30)
[2021-02-01] MEDS: NICOTINE 21MG/24HR 1 EA TRANSDERMAL TD SCH (08:30)
[2021-02-01] MEDS: OLANZapine ORAL DISINTEGRATING TAB 5MG PO PRN ×2 (10:48→21:32)
--- NOTE | 2021-02-01 15:17 | MHIPNPDOC ---
[facility] Progress Note Progress Note DATE OF SERVICE: 02/01/21 HISTORY: Per previous admission in January 28, 2021, evaluated on January 29 by this keno writer/runner: "patient is a 40 -year-old , female, who presented with SI and psychosis. Per this keno writer/runner's H&P: Patient is a 40 -year-old , female, who has a history of multiple admissions with schizoaffective disorder, PTSD, anxiety, depression, ID, borderline personality disorder. States she used to be a drug addict and now her 17 y/o daughter has started using drugs so she has had suicidal thoughts of jumping off a bridge or hanging herself, states daughter makes her want to use drugs and she fears relapse. States she feels hopeless, sad, feels she has no purpose in life, due to stressor of feeling isolated since having broken leg, boyfriend Ian screams at her all the time, states she struggles trying to stay happy, states she has to force herself to go places including [employer]. Also reports stressor of wanting to go to family court to apply for custody for 13 y/o daughter, states her ex- keeps her in a drug house and wants to get her out of that environment, also wants increased visitation for other daughters ages 17 and 15, also living with ex . Was last admitted August 2020 after testing COVID-19 positive and being transferred from medical floor to [facility] for acute disorganization in context of schizoaffective disorder. Patient reports "I can talk to this person all day long who is in the back corner of my house who I know is not there". Reports being paranoid and "that people are plotting against me". Toxicology is positive for cannabis and methadone." Patient was transferred to the medical floor January 29, 2021 after being followed by the hospitalist team, had elevate creatinine, low GFR in context of CASPER, elevated TSH and low T4, and reported noncompliance with medications, there she was given IV fluids, monitored for kidney function started on thyroid supplementation. 01/30/2021 creatinine of 1. 85, low GFR in the 30s. TSH of 200. Was seen by hospitalist team for reevaluation, or holding gabapentin due to CASPER, encouraged to drink fluids, continue on thyroid supplementation. BMP labs pending and will be reevaluated by hospitalist team. On interview patient denies any acute physical complaints, perseverates on wanting to restart her gabapentin because she states she will go into withdrawals, and has increased anxiety, patient made aware has as needed olanzapine for anxiety or agitation, is continued on other medications, will be monitored for any concerning symptoms. Patient states she still has suicidal ideations, and vague suicidal thoughts, patient is tearful and reports that her mood is low when she feels sad, reports auditory hallucinations which are vague and delusions which are vague. Patient reports symptoms did not change since admission on January 28, 2021. Interval: Patient reports she continues to have suicidal ideations, depressed mood, despite bubbly and cheerful affect at times. Perseverates on wanting gabapentin because nothing else helps her anxiety, also reports that her daughter used to be stealing her gabapentin, made aware of the risk of taking gabapentin in context of her CASPER, history of CKD. Patient became very tearful, upset and irritable when telling her this, despite the risks involved states she wants to continue taking gabapentin, made patient aware that I do not feel comfortable prescribing this medication for her and that there are other options to treat anxiety, patient then became less interested in interview. Patient denies any acute physical complaints and was asymptomatic, however discussed with hospitalist team her elevated Cr, Dr. Marie Lara hospitalist team will continue to follow patient and perhaps order more labs if needed, as she is received fluids and renal ultrasound was unremarkable. VITAL SIGNS: See below. NEW TEST RESULTS: See below CURRENT MEDICATIONS: See below. MENTAL STATUS EXAMINATION: General Appearance: Improved hygiene, appears stated age, poor eye contact, dressed appropriately Build: overweight Demeanor: mistrustful, preoccupied Eye Contact: avoidant Activity: anxious Behavior: cooperative, restless Speech: clear, spontaneous Mood: anxious Mood " still depressed and suicidal" Affect: labile, anxious Thought Process: logical/linear Thought Content (Delusions): reports paranoia, delusions, does not appear paranoid Thought Content (Other): preoccupied, coherent Thought Content (Aggressive): none reported Perception (Hallucinations): auditory (Negative for hallucinations, says she hears a woman's voice from time to time, noncommand) Perception (Other): none reported Cognition (Impairment of): attention/concentration Cognition(Intelligence Est.): borderline Oriented: Alert, Oriented times three Insight: poor Judgment: Poor Psychosis: Reports psychotic Perceptions, does not appear to be internally preoccupied DIAGNOSES: Schizoaffective disorder, depressed type PTSD per hx Borderline personality disorder per hx Tobacco use disorder Cannabis use disorder ASSESSMENT: Patient reports she continues to be depressed with suicidal ideation, reports auditory hallucinations, however does not appear to internally preoccupied, has a lengthy history of admissions on the [facility], perseverates on receiving gabapentin for anxiety, states that still that helps with anxiety d espite discussion of other options. Patient was given education regarding risk for kidney damage in context of CASPER and despite this wants the medication, stated we will did not feel comfortable prescribing this medication at this time, and will continue her other home medications. MANAGEMENT PLAN: Continue medications TIME SPENT: 15 minutes. Vital Signs Vital Signs Date Time Temp Pulse Resp B/P (MAP) Pulse Ox O2 Delivery O2 Flow Rate FiO2 02/01/21 06:35 98.1 56 16 92/59 (70) 95 Room Air Current Medications Current Medications Medications (Trade) Dose Ordered Sig/[place] Route PRN Reason Start Time Stop Time Status Last Admin Dose Admin Acetaminophen (Tylenol Tab) 650 mg Q6HP PRN PO HEADACHE or MILD DISCOMFORT 01/30/21 16:10 Al Hydrox/Mg Hydrox/Simethicone (Mylanta) 30 ml Q4HP PRN PO HEARTBURN/INDIGESTION 01/30/21 16:10 Aripiprazole (AbiLIFY) 2 mg QHS PO 01/30/21 21:00 01/31/21 20:01 Bupropion HCl (Wellbutrin Xl) 300 mg QAM PO 01/31/21 09:00 02/01/21 08:30 Docusate Sodium (Colace) 100 mg BID PO 01/30/21 21:00 02/01/21 08:30 Levothyroxine Sodium (Synthroid) 150 mcg DAILY@06 PO 01/31/21 06:00 02/01/21 06:16 Magnesium Hydroxide (Milk Of Magnesia) 30 ml DAILYPRN PRN PO CONSTIPATION 01/30/21 16:10 Methadone HCl (Dolophine) 145 mg DAILY PO 01/31/21 09:00 02/01/21 08:29 Miscellaneous (Unresolved Clarification Entry) SEE LABEL COMMENTS UNRESOLVED XX 01/30/21 00:01 Cancel Nicotine (Nicoderm Cq 21mg) 1 patch DAILY TD 01/31/21 09:00 02/01/21 08:30 Olanzapine (ZyPREXA ZYDIS) 10 mg Q4HP PRN PO ANXIETY/AGITATION 01/30/21 17:45 02/01/21 10:48 Quetiapine Fumarate (SEROquel) 50 mg QHS PO 01/30/21 21:00 01/31/21 20:01 Trazodone HCl (Desyrel) 50 mg QHSP PRN PO INSOMNIA 01/30/21 16:10 Allergies Coded Allergies: No Known Allergies (Verified , 10/22/18) MAXX GUZMAN MD Feb 01, 2021 15:17
[2021-02-01 16:12] VITALS: BP 130/78
[2021-02-01] MEDS: ARIPiprazole 2 MG TAB PO SCH (21:33)
[2021-02-01] MEDS: QUEtiapine FUMARATE 50MG TAB PO SCH (21:33)
[2021-02-02] MEDS: LEVOTHYROXINE 150MCG TABLET (0.15MG) PO SCH (05:50)
[2021-02-02 06:48] VITALS: BP 118/79
[2021-02-02] MEDS: METHADONE 10 MG TAB (S0109) PO SCH (08:02)
[2021-02-02] MEDS: NICOTINE 21MG/24HR 1 EA TRANSDERMAL TD SCH (08:02)
[2021-02-02] MEDS: DOCUSATE SODIUM 100MG CAPSULE PO SCH ×2 (08:02→20:20)
[2021-02-02] MEDS: buPROPion **XL** TABLET 150MG (WELLBUTRIN XL) PO SCH (08:02)
[2021-02-02] MEDS: OLANZapine ORAL DISINTEGRATING TAB 5MG PO PRN ×2 (09:51→17:03)
[2021-02-02 10:37] LABS: CALCIUM LEVEL 9.4 MG/DL (8.5-10.1); CREATININE FOR GFR 1.96 MG/DL (0.55-1.30); GLOMERULAR FILTRATION RATE 30.4 (>60); POTASSIUM SERUM 4.3 MEQ/L (3.5-5.1)
[2021-02-02 17:01] VITALS: BP 129/75
--- NOTE | 2021-02-02 18:32 | MHIPNPDOC ---
[facility] Progress Note Progress Note DATE OF SERVICE: 02/02/21 HISTORY: Per previous admission in January 28, 2021, evaluated on January 29 by this junior technical writer: "patient is a 40 -year-old , female, who presented with SI and psychosis. Per this junior technical writer's H&P: Patient is a 40 -year-old , female, who has a history of multiple admissions with schizoaffective disorder, PTSD, anxiety, depression, ID, borderline personality disorder. States she used to be a drug addict and now her 17 y/o daughter has started using drugs so she has had suicidal thoughts of jumping off a bridge or hanging herself, states daughter makes her want to use drugs and she fears relapse. States she feels hopeless, sad, feels she has no purpose in life, due to stressor of feeling isolated since having broken leg, boyfriend Ian screams at her all the time, states she struggles trying to stay happy, states she has to force herself to go places including [place]. Also reports stressor of wanting to go to family court to apply for custody for 13 y/o daughter, states her ex- keeps her in a drug house and wants to get her out of that environment, also wants increased visitation for other daughters ages 17 and 15, also living with ex . Was last admitted August 2020 after testing COVID-19 positive and being transferred from medical floor to [facility] for acute disorganization in context of schizoaffective disorder. Patient reports "I can talk to this person all day long who is in the back corner of my house who I know is not there". Reports being paranoid and "that people are plotting against me". Toxicology is positive for cannabis and methadone." Patient was transferred to the medical floor January 29, 2021 after being followed by the hospitalist team, had elevate creatinine, low GFR in context of CASPER, elevated TSH and low T4, and reported noncompliance with medications, there she was given IV fluids, monitored for kidney function started on thyroid supplementation. 01/30/2021 creatinine of 1. 85, low GFR in the 30s. TSH of 200. Was seen by hospitalist team for reevaluation, or holding gabapentin due to CASPER, encouraged to drink fluids, continue on thyroid supplementation. BMP labs pending and will be reevaluated by hospitalist team. On interview patient denies any acute physical complaints, perseverates on wanting to restart her gabapentin because she states she will go into withdrawals, and has increased anxiety, patient made aware has as needed olanzapine for anxiety or agitation, is continued on other medications, will be monitored for any concerning symptoms. Patient states she still has suicidal ideations, and vague suicidal thoughts, patient is tearful and reports that her mood is low when she feels sad, reports auditory hallucinations which are vague and delusions which are vague. Patient reports symptoms did not change since admission on January 28, 2021. Interval: Patient reports she continues to have suicidal ideations, depressed mood, despite bubbly and cheerful affect at times. Perseverates on wanting gabapentin because nothing else helps her anxiety, also reports that her daughter used to be stealing her gabapentin, made aware of the risk of taking gabapentin in context of her CASPER, history of CKD. Patient became very tearful, upset and irritable when telling her this, despite the risks involved states she wants to continue taking gabapentin, made patient aware that I do not feel comfortable prescribing this medication for her and that there are other options to treat anxiety, patient then became less interested in interview. Patient denies any acute physical complaints and was asymptomatic, however discussed with hospitalist team her elevated Cr, Dr. Marie Lara hospitalist team will continue to follow patient and perhaps order more labs if needed, as she is received fluids and renal ultrasound was unremarkable. VITAL SIGNS: See below. NEW TEST RESULTS: See below CURRENT MEDICATIONS: See below. MENTAL STATUS EXAMINATION: General Appearance:good hygiene and attire, dressed partially in personal clothes Build: overweight Demeanor: anxious, agitated, labile Eye Contact: good Activity: anxious Behavior: cooperative, restless, anxious Speech: clear, spontaneous Mood: Depressed and anxious Mood " anxious and being anxious makes me feel not want to live" Affect: labile, anxious, she cries easily Thought Process: logical/linear Thought Content (Delusions): reports paranoia, delusions, does not appear paranoid Thought Content (Other): preoccupied, coherent Thought Content (Aggressive): none reported Perception (Hallucinations): auditory (she says she's not sure if it's a male or female voice, but she feels is the presence of a male) Perception (Other): none reported Cognition (Impairment of): attention/concentration Cognition(Intelligence Est.): borderline Oriented: Alert, Oriented times three Insight: poor Judgment: Poor Psychosis: Reports psychotic Perceptions, does not appear to be internally preoccupied DIAGNOSES: Schizoaffective disorder, depressed type PTSD per hx Borderline personality disorder per hx Tobacco use disorder Cannabis use disorder ASSESSMENT: she starts crying and screaming when she talks about Gabapentin, saying she's going through withdrawals from this medication. She has stage kidney disease and she can't take that medication. She says she is very anxious but she was Ok when she came to the office, and as soon as she remembered the medication she started crying and screaming. She will start Prazosin 1 mg Po QHS for nightmares and I will increase her Abilify to 5 mgs PO BID MANAGEMENT PLAN: Continue medications TIME SPENT: 15 minutes. Vital Signs Vital Signs Date Time Temp Pulse Resp B/P (MAP) Pulse Ox O2 Delivery O2 Flow Rate FiO2 02/02/21 17:01 97.3 71 18 129/75 (93) 99 Room Air Laboratory Data 24H Labs Laboratory Tests 2 02/02/21 09:42: Anion Gap 3L, Glomerular Filtration Rate 30.4L, Calcium Level 9.4 CBC/BMP Laboratory Tests 02/02/21 09:42 Current Medications Current Medications Medications (Trade) Dose Ordered Sig/Mercedez Route PRN Reason Start Time Stop Time Status Last Admin Dose Admin Acetaminophen (Tylenol Tab) 650 mg Q6HP PRN PO HEADACHE or MILD DISCOMFORT 01/30/21 16:10 Al Hydrox/Mg Hydrox/Simethicone (Mylanta) 30 ml Q4HP PRN PO HEARTBURN/INDIGESTION 01/30/21 16:10 Aripiprazole (AbiLIFY) 2 mg QHS PO 01/30/21 21:00 02/01/21 21:33 Bupropion HCl (Wellbutrin Xl) 300 mg QAM PO 01/31/21 09:00 02/02/21 08:02 Docusate Sodium (Colace) 100 mg BID PO 01/30/21 21:00 02/02/21 08:02 Levothyroxine Sodium (Synthroid) 150 mcg DAILY@06 PO 01/31/21 06:00 02/02/21 05:50 Magnesium Hydroxide (Milk Of Magnesia) 30 ml DAILYPRN PRN PO CONSTIPATION 01/30/21 16:10 Methadone HCl (Dolophine) 145 mg DAILY PO 01/31/21 09:00 02/02/21 08:02 Miscellaneous (Unresolved Clarification Entry) SEE LABEL COMMENTS UNRESOLVED XX 01/30/21 00:01 Cancel Nicotine (Nicoderm Cq 21mg) 1 patch DAILY TD 01/31/21 09:00 02/02/21 08:02 Olanzapine (ZyPREXA ZYDIS) 10 mg Q4HP PRN PO ANXIETY/AGITATION 01/30/21 17:45 02/02/21 17:03 Quetiapine Fumarate (SEROquel) 50 mg QHS PO 01/30/21 21:00 02/01/21 21:33 Trazodone HCl (Desyrel) 50 mg QHSP PRN PO INSOMNIA 01/30/21 16:10 Allergies Coded Allergies: No Known Allergies (Verified , 10/22/18) MADELIN CRISTINA MD Feb 02, 2021 18:27
[2021-02-02] MEDS: QUEtiapine FUMARATE 50MG TAB PO SCH (20:20)
[2021-02-02] MEDS: PRAZOSIN 1 MG CAP PO SCH (20:21)
[2021-02-02] MEDS: ACETAMINOPHEN TAB 650MG DOSE (2X325MG) PO PRN (20:22)
[2021-02-03] MEDS: LEVOTHYROXINE 150MCG TABLET (0.15MG) PO SCH (06:36)
[2021-02-03 07:06] VITALS: BP 125/81
[2021-02-03] MEDS: METHADONE 10 MG TAB (S0109) PO SCH (08:02)
[2021-02-03] MEDS: DOCUSATE SODIUM 100MG CAPSULE PO SCH ×2 (08:02→20:24)
[2021-02-03] MEDS: buPROPion **XL** TABLET 150MG (WELLBUTRIN XL) PO SCH (08:03)
[2021-02-03] MEDS: NICOTINE 21MG/24HR 1 EA TRANSDERMAL TD SCH (08:03)
[2021-02-03] MEDS: OLANZapine ORAL DISINTEGRATING TAB 5MG PO PRN ×3 (10:47→21:51)
--- NOTE | 2021-02-03 11:47 | MHIPNPDOC ---
[facility] Progress Note Progress Note DATE OF SERVICE: 02/03/21 HISTORY: Per previous admission in January 28, 2021, evaluated on January 29 by this business writer: "patient is a 40 -year-old , female, who presented with SI and psychosis. Per this business writer's H&P: Patient is a 40 -year-old , female, who has a history of multiple admissions with schizoaffective disorder, PTSD, anxiety, depression, ID, borderline personality disorder. States she used to be a drug addict and now her 17 y/o daughter has started using drugs so she has had suicidal thoughts of jumping off a bridge or hanging herself, states daughter makes her want to use drugs and she fears relapse. States she feels hopeless, sad, feels she has no purpose in life, due to stressor of feeling isolated since having broken leg, boyfriend Ian screams at her all the time, states she struggles trying to stay happy, states she has to force herself to go places including [place]. Also reports stressor of wanting to go to family court to apply for custody for 13 y/o daughter, states her ex- keeps her in a drug house and wants to get her out of that environment, also wants increased visitation for other daughters ages 17 and 15, also living with ex . Was last admitted August 2020 after testing COVID-19 positive and being transferred from medical floor to [facility] for acute disorganization in context of schizoaffective disorder. Patient reports "I can talk to this person all day long who is in the back corner of my house who I know is not there". Reports being paranoid and "that people are plotting against me". Toxicology is positive for cannabis and methadone." Patient was transferred to the medical floor January 29, 2021 after being followed by the hospitalist team, had elevate creatinine, low GFR in context of CASPER, elevated TSH and low T4, and reported noncompliance with medications, there she was given IV fluids, monitored for kidney function started on thyroid supplementation. 01/30/2021 creatinine of 1. 85, low GFR in the 30s. TSH of 200. Was seen by hospitalist team for reevaluation, or holding gabapentin due to CASPER, encouraged to drink fluids, continue on thyroid supplementation. BMP labs pending and will be reevaluated by hospitalist team. On interview patient denies any acute physical complaints, perseverates on wanting to restart her gabapentin because she states she will go into withdrawals, and has increased anxiety, patient made aware has as needed olanzapine for anxiety or agitation, is continued on other medications, will be monitored for any concerning symptoms. Patient states she still has suicidal ideations, and vague suicidal thoughts, patient is tearful and reports that her mood is low when she feels sad, reports auditory hallucinations which are vague and delusions which are vague. Patient reports symptoms did not change since admission on January 28, 2021. VITAL SIGNS: See below. NEW TEST RESULTS: See below CURRENT MEDICATIONS: See below. MENTAL STATUS EXAMINATION: General Appearance:good hygiene and attire, dressed partially in personal clothes Build: overweight Demeanor: anxious, agitated, labile Eye Contact: good Activity: anxious Behavior: cooperative, restless, anxious Speech: clear, spontaneous Mood: Depressed Mood " anxious, anxious" Affect: labile, anxious, she cries easily Thought Process: logical/linear Thought Content (Delusions): reports paranoid thoughts about specific people Thought Content (Other): preoccupied, coherent Thought Content (Aggressive): none reported Perception (Hallucinations): auditory (she says she's not sure if it's a male or female voice, but she feels is the presence of a male) Perception (Other): none reported Cognition (Impairment of): attention/concentration Cognition(Intelligence Est.): borderline Oriented: Alert, Oriented times three Insight: poor Judgment: Poor Psychosis: Reports psychotic Perceptions, does not appear to be internally preoccupied DIAGNOSES: Schizoaffective disorder, depressed type PTSD per hx Borderline personality disorder per hx Tobacco use disorder Cannabis use disorder ASSESSMENT: Perseverates about needing Gabapentin, about having withdrawals. I prescribed Hydroxyzine 10 mgs PO Q6HP for anxiety MANAGEMENT PLAN: Continue medications TIME SPENT: 15 minutes. Vital Signs Vital Signs Date Time Temp Pulse Resp B/P (MAP) Pulse Ox O2 Delivery O2 Flow Rate FiO2 02/03/21 07:06 97.7 68 18 125/81 (96) 96 02/02/21 17:01 Room Air Current Medications Current Medications Medications (Trade) Dose Ordered Sig/[place] Route PRN Reason Start Time Stop Time Status Last Admin Dose Admin Acetaminophen (Tylenol Tab) 650 mg Q6HP PRN PO HEADACHE or MILD DISCOMFORT 01/30/21 16:10 02/02/21 20:22 Al Hydrox/Mg Hydrox/Simethicone (Mylanta) 30 ml Q4HP PRN PO HEARTBURN/INDIGESTION 01/30/21 16:10 Aripiprazole (AbiLIFY) 2 mg QHS PO 01/30/21 21:00 02/02/21 18:23 DC 02/01/21 21:33 Aripiprazole (AbiLIFY) 5 mg BID PO 02/02/21 21:00 02/03/21 08:02 Bupropion HCl (Wellbutrin Xl) 300 mg QAM PO 01/31/21 09:00 02/03/21 08:03 Docusate Sodium (Colace) 100 mg BID PO 01/30/21 21:00 02/03/21 08:02 Levothyroxine Sodium (Synthroid) 150 mcg DAILY@06 PO 01/31/21 06:00 02/03/21 06:36 Magnesium Hydroxide (Milk Of Magnesia) 30 ml DAILYPRN PRN PO CONSTIPATION 01/30/21 16:10 Methadone HCl (Dolophine) 145 mg DAILY PO 01/31/21 09:00 02/03/21 08:02 Miscellaneous (Unresolved Clarification Entry) SEE LABEL COMMENTS UNRESOLVED XX 01/30/21 00:01 Cancel Nicotine (Nicoderm Cq 21mg) 1 patch DAILY TD 01/31/21 09:00 02/03/21 08:03 Olanzapine (ZyPREXA ZYDIS) 10 mg Q4HP PRN PO ANXIETY/AGITATION 01/30/21 17:45 02/03/21 10:47 Prazosin HCl (Minipress) 1 mg QHS PO 02/02/21 21:00 02/02/21 20:21 Quetiapine Fumarate (SEROquel) 50 mg QHS PO 01/30/21 21:00 02/02/21 20:20 Trazodone HCl (Desyrel) 50 mg QHSP PRN PO INSOMNIA 01/30/21 16:10 Allergies Coded Allergies: No Known Allergies (Verified , 10/22/18) MADELIN CRISTINA MD Feb 03, 2021 11:47
[2021-02-03] MEDS: hydrOXYzine 10 MG TAB PO PRN ×2 (12:10→20:24)
[2021-02-03] MEDS: ACETAMINOPHEN TAB 650MG DOSE (2X325MG) PO PRN (12:10)
[2021-02-03 17:36] VITALS: BP 126/82
[2021-02-03] MEDS: traZODone 50 MG TAB PO PRN (20:24)
[2021-02-03] MEDS: QUEtiapine FUMARATE 50MG TAB PO SCH (20:24)
[2021-02-03] MEDS: PRAZOSIN 1 MG CAP PO SCH (20:24)
[2021-02-04] MEDS: LEVOTHYROXINE 150MCG TABLET (0.15MG) PO SCH (06:11)
[2021-02-04 06:51] VITALS: BP 104/61
[2021-02-04] MEDS: OLANZapine ORAL DISINTEGRATING TAB 5MG PO PRN ×3 (08:57→22:13)
[2021-02-04] MEDS: buPROPion **XL** TABLET 150MG (WELLBUTRIN XL) PO SCH (08:59)
[2021-02-04] MEDS: DOCUSATE SODIUM 100MG CAPSULE PO SCH ×2 (08:59→22:13)
[2021-02-04] MEDS: NICOTINE 21MG/24HR 1 EA TRANSDERMAL TD SCH (09:00)
[2021-02-04] MEDS: METHADONE 10 MG TAB (S0109) PO SCH (09:02)
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
[2021-02-04] MEDS ORDERED: HOME MED LIST COMPLETE! XX SCH (14:05)
[2021-02-04 15:54] VITALS: BP 131/85
[2021-02-04] MEDS: traZODone 50 MG TAB PO PRN (22:13)
[2021-02-04] MEDS: QUEtiapine FUMARATE 50MG TAB PO SCH (22:14)
[2021-02-04 22:15] VITALS: BP 115/75
[2021-02-04] MEDS: PRAZOSIN 1 MG CAP PO SCH (22:15)
[2021-02-05] MEDS: LEVOTHYROXINE 150MCG TABLET (0.15MG) PO SCH (06:06)
[2021-02-05 07:08] VITALS: BP 109/61
[2021-02-05] MEDS: buPROPion **XL** TABLET 150MG (WELLBUTRIN XL) PO SCH (08:19)
[2021-02-05] MEDS: DOCUSATE SODIUM 100MG CAPSULE PO SCH (08:19)
[2021-02-05] MEDS: METHADONE 10 MG TAB (S0109) PO SCH (08:20)
[2021-02-05] MEDS: NICOTINE 21MG/24HR 1 EA TRANSDERMAL TD SCH (08:24)
[2021-02-05] MEDS ORDERED: OLAN5ZYD PO (08:56)
[2021-02-05] MEDS ORDERED: ABIL1TAB11 PO (08:56)
[2021-02-05] MEDS ORDERED: MINI1CAP PO (08:56)
[2021-02-05] MEDS ORDERED: QUET50TA4 PO (08:56)
[2021-02-05] MEDS ORDERED: NICO21PAT TD (08:56)
[2021-02-05] MEDS ORDERED: COLA100C5 PO (08:56)
[2021-02-05] MEDS ORDERED: BUPR150T12 PO (08:56)
[2021-02-05] MEDS: OLANZapine ORAL DISINTEGRATING TAB 5MG PO PRN (12:09)
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
== END 2021-02-05 14:05 | disposition home or self-care (01) | DRG 750 ==
LOC: M PSY 16:45
PROVIDERS: ADMIT Student in an Organized Health Care Education/Training Program; ATTEND Student in an Organized Health Care Education/Training Program
DX: F25.1 Schizoaffective disorder, depressive type (principal); Z91.14 Patient's other noncompliance with medication regimen; R45.851 Suicidal ideations; F43.10 Post-traumatic stress disorder, unspecified; F60.3 Borderline personality disorder; E03.9 Hypothyroidism, unspecified; F17.200 Nicotine dependence, unspecified, uncomplicated; F12.10 Cannabis abuse, uncomplicated; Z62.810 Personal history of physical and sexual abuse in childhood; Z81.8 Family history of other mental and behavioral disorders; Z81.1 Family history of alcohol abuse and dependence; Z79.899 Other long term (current) drug therapy

== ENCOUNTER → 2021-03-05 | Outpatient (CLI) | payer OTHER ==
[~2021-03-05] MED LIST changes: +ABIL1TAB11 PO; +COLA100C5 PO; +HYDR50TA70 PO; +MINI1CAP PO; +OLAN5ZYD PO; +OMEP-173; +OMEP-173 PO; -OMEP-218; -OMEP-218 PO; -PROC10TA4 PO; +PROC10TA5 PO; +TRAZ-252 PO; -UNRESOLVED CLARIFICATION ENTRY XX SCH; +VENL75CA47 PO
[2021-03-05 12:35] LABS: HEMATOCRIT 38.6 % (36.0-47.0); HEMOGLOBIN 12.2 g/dl (12.0-15.5); MEAN CORPUSCULAR HEMOGLOBIN 29.1 pg (27.0-33.0); MEAN CORPUSCULAR HGB CONC 31.6 g/dl (32.0-36.5); MEAN CORPUSCULAR VOLUME 92.1 fl (80.0-96.0); PLATELET COUNT, AUTOMATED 154 10^3/uL (150-450); RED BLOOD COUNT 4.19 10^6/uL (4.00-5.40); WHITE BLOOD COUNT 6.8 10^3/uL (4.0-10.0)
[2021-03-05 13:09] LABS: ALBUMIN 3.8 GM/DL (3.2-5.2); ALT/SGPT 20 U/L (12-78); BILIRUBIN,TOTAL 0.2 MG/DL (0.2-1.0); BLOOD UREA NITROGEN 17 MG/DL (7-18); CALCIUM LEVEL 9.2 MG/DL (8.5-10.1); CARBON DIOXIDE LEVEL 28 MEQ/L (21-32); CHLORIDE LEVEL 105 MEQ/L (98-107); CREATININE FOR GFR 1.75 MG/DL (0.55-1.30); GLOMERULAR FILTRATION RATE 34.6 (>60); GLUCOSE, FASTING 104 MG/DL (70-100); POTASSIUM SERUM 4.4 MEQ/L (3.5-5.1); SODIUM LEVEL 140 MEQ/L (136-145); TOTAL PROTEIN 7.6 GM/DL (6.4-8.2)
[2021-03-05 14:19] LABS: HCG, SERUM QUALITATIVE NEGATIVE (NEGATIVE)
[2021-03-05 14:50] LABS: HEPATITIS C VIRUS ABY INDEX 0.1 INDEX (<0.8); HIV 1&2 SCREEN CENTAUR NEGATIVE (NEGATIVE)
== END ==
LOC: M LAB 11:17 → M EKG 11:17
PROVIDERS: ATTEND Family Medicine Addiction Medicine
DX: F11.90 Opioid use, unspecified, uncomplicated (principal)
CPT/HCPCS: 36415; 80053; 84703; 85027; 86803; 87389; 93005; G0480

== ENCOUNTER → 2021-03-06 | Outpatient (CLI) | payer OTHER | LOC: M LAB 07:06 | PROVIDERS: ATTEND Family Medicine | DX: F10.20 Alcohol dependence, uncomplicated (principal) | CPT/HCPCS: 36415; G0480 ==

== ENCOUNTER 2021-04-04 14:59 | Inpatient (IN) | payer OTHER ==
[~2021-04-04] VITALS: Ht 160 cm; Wt 109.6 kg
[~2021-04-04 14:59] MED LIST changes: -HYDR50TA70 PO; -OMEP-173; -OMEP-173 PO; +OMEP-218; +OMEP-218 PO; +PROC10TA4 PO; -PROC10TA5 PO; -TRAZ-252 PO; -VENL75CA47 PO
[2021-04-04] MEDS ORDERED: BUPR300T92 PO (15:08)
[2021-04-04] MEDS ORDERED: GABA800T4 PO (15:08)
[2021-04-04 16:18] LABS: HEMATOCRIT 35.7 % (36.0-47.0); HEMOGLOBIN 11.6 g/dl (12.0-15.5); MEAN CORPUSCULAR HEMOGLOBIN 30.9 pg (27.0-33.0); MEAN CORPUSCULAR HGB CONC 32.5 g/dl (32.0-36.5); MEAN CORPUSCULAR VOLUME 95.2 fl (80.0-96.0); PLATELET COUNT, AUTOMATED 113 10^3/uL (150-450); RED BLOOD COUNT 3.75 10^6/uL (4.00-5.40); WHITE BLOOD COUNT 5.5 10^3/uL (4.0-10.0)
[2021-04-04 16:52] LABS: RSV AMPLIFICATION NEGATIVE (NEGATIVE)
[2021-04-04 17:18] LABS: ACETAMINOPHEN LEVEL < 2.0 UG/ML (10.0-30.0); ALBUMIN 4.2 GM/DL (3.2-5.2); ALT/SGPT 16 U/L (12-78); BILIRUBIN,DIRECT 0.1 MG/DL (0.0-0.2); BILIRUBIN,TOTAL 0.5 MG/DL (0.2-1.0); BLOOD UREA NITROGEN 15 MG/DL (7-18); CALCIUM LEVEL 9.2 MG/DL (8.5-10.1); CARBON DIOXIDE LEVEL 29 MEQ/L (21-32); CHLORIDE LEVEL 107 MEQ/L (98-107); ETHYL ALCOHOL (ETHANOL) < 0.003 % (0.000-0.010); GLOMERULAR FILTRATION RATE 33.3 (>60); GLUCOSE, FASTING 79 MG/DL (70-100); POTASSIUM SERUM 4.1 MEQ/L (3.5-5.1); SALICYLATE LEVEL 4.5 MG/DL (5.0-30.0); SODIUM LEVEL 140 MEQ/L (136-145); TOTAL PROTEIN 7.8 GM/DL (6.4-8.2)
[2021-04-04] MEDS ORDERED: MOM 30ML SUSPENSION UDC PO PRN (17:30)
[2021-04-04] MEDS ORDERED: MAALOX 30 ML SUSP *UDC PO PRN (17:30)
[2021-04-04] MEDS ORDERED: LIDOCAINE 2% 5ML JELLY UROJET TOP ONE (17:30)
[2021-04-04] MEDS ORDERED: QUET50TA4 PO (17:47)
[2021-04-04] MEDS ORDERED: HOME MED LIST COMPLETE! XX SCH (17:50)
[2021-04-04 18:13] LABS: AMPHETAMINES LEVEL URINE NEGATIVE (NEGATIVE); BARBITURATES URINE NEGATIVE (NEGATIVE); BENZODIAZEPINES URINE NEGATIVE (NEGATIVE); CANNABINOIDS URINE NEGATIVE (NEGATIVE); COCAINE METABOLITE URINE NEGATIVE (NEGATIVE); METHADONE URINE POSITIVE (NEGATIVE); OPIATES URINE NEGATIVE (NEGATIVE); PHENCYCLIDINE URINE NEGATIVE (NEGATIVE)
[2021-04-04] MEDS ORDERED: LORazepam 1 MG TAB PO ONE (18:30)
[2021-04-04] MEDS: GABAPENTIN 400MG CAP PO SCH (21:11)
[2021-04-04] MEDS: QUEtiapine FUMARATE 50MG TAB PO SCH (21:11)
[2021-04-04] MEDS: traZODone 50 MG TAB PO PRN (21:11)
[2021-04-04 21:14] VITALS: BP 145/72
[2021-04-05] MEDS: LEVOTHYROXINE 150MCG TABLET (0.15MG) PO SCH (06:09)
[2021-04-05 06:27] VITALS: BP 108/72
[2021-04-05] MEDS: GABAPENTIN 400MG CAP PO SCH ×3 (08:29→20:40)
[2021-04-05] MEDS ORDERED: buPROPion **XL** TABLET 150MG (WELLBUTRIN XL) PO SCH (09:00)
[2021-04-05] MEDS ORDERED: METH10CO PO (11:45)
[2021-04-05] MEDS: OLANZapine 5 MG TAB PO SCH ×3 (13:33→20:40)
[2021-04-05] MEDS: METHADONE 5 MG TAB (S0109) PO SCH (13:33)
[2021-04-05] MEDS: METHADONE 10 MG TAB (S0109) PO SCH (13:36)
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
[2021-04-05 17:20] VITALS: BP 137/77
[2021-04-05] MEDS: traZODone 50 MG TAB PO PRN (20:40)
[2021-04-05] MEDS: QUEtiapine FUMARATE 50MG TAB PO SCH (20:40)
[2021-04-06] MEDS: LEVOTHYROXINE 150MCG TABLET (0.15MG) PO SCH (05:52)
[2021-04-06 06:53] VITALS: BP 122/77
[2021-04-06] MEDS: METHADONE 5 MG TAB (S0109) PO SCH (08:13)
[2021-04-06] MEDS: OLANZapine 5 MG TAB PO SCH ×3 (08:13→21:14)
[2021-04-06] MEDS: METHADONE 10 MG TAB (S0109) PO SCH (08:13)
[2021-04-06] MEDS: GABAPENTIN 400MG CAP PO SCH ×3 (08:13→21:14)
[2021-04-06] MEDS: NICOTINE 21MG/24HR 1 EA TRANSDERMAL TD SCH (09:00)
[2021-04-06] MEDS: VENLAFAXINE **XR** 37.5 MG CAPSULE PO SCH (10:18)
--- NOTE | 2021-04-06 13:42 | MHIPN ---
[facility] PROGRESS NOTE DATE: 04/06/2021 VITAL SIGNS: Temperature 98.3, pulse 79, respirations 18, blood pressure 122/77. CURRENT MEDICATIONS: - methadone 155 mg daily - Seroquel 50 mg at bedtime - gabapentin 800 mg three times a day - trazodone 50 mg at bedtime as needed - Zyprexa 5 mg three times a day HISTORY OF PRESENT ILLNESS: This is a 41-year-old white female with a history of major depression, generalized anxiety disorder (LEIF), posttraumatic stress disorder (PTSD), borderline personality disorder, and schizoaffective disorder. Patient had been complaining of severe anxiety and restlessness, likely a side effect from her Wellbutrin. She had been on the Wellbutrin for years without benefit. Wellbutrin appears to have aggravated her anxiety symptoms. Her anxiety symptoms are less prominent now that it has been discontinued. She does like the Zyprexa. She feels that it makes her feel calmer and helps her think clearer. Patient still hearing voices, but they are not as prominent. These are auditory hallucinations coming from her mother, telling her that she is worthless and is better off . Sometimes she thinks the voices are coming from the devil. Patient still complains of severe depression. She feels helpless and helpless. She is apathetic. She has frequent weepy episodes. She would like to go on a trial of Effexor XR. It has been recommended by several friends strongly. Side effect profile reviewed. MENTAL STATUS EXAMINATION: Patient is alert, oriented, and cooperative. Mood is depressed. She is quite anxious. She reports auditory hallucinations, which are quite prominent. Patient does have paranoid ideation as well. Grooming and hygiene remain marginal. Insight and judgment are fair. No signs of cognitive deficits. No signs of being a danger to self or others on the unit. ASSESSMENT: Patient's Wellbutrin appears to have aggravated her anxiety disorder. She does appear to be a good candidate for Effexor XR. Side effect profile reviewed. Hopefully it can help with her anxiety symptoms as well as her depressive symptoms. Patient warned about risks of paradoxical worsening of mood on antidepressants. DIAGNOSES: 1. Schizoaffective disorder, depressed. 2. Posttraumatic stress disorder by history. 3. Generalized anxiety disorder. 4. Borderline personality disorder. 5. Opiate use disorder. 6. Amphetamine use disorder. PLAN: Start trial of Effexor XR 37.5 mg every morning. Continue present management.
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
[2021-04-06 17:54] VITALS: BP 137/82
[2021-04-06] MEDS: QUEtiapine FUMARATE 50MG TAB PO SCH (21:14)
[2021-04-06] MEDS: traZODone 50 MG TAB PO PRN (21:16)
[2021-04-07] MEDS: LEVOTHYROXINE 150MCG TABLET (0.15MG) PO SCH (05:05)
[2021-04-07] MEDS: ACETAMINOPHEN TAB 650MG DOSE (2X325MG) PO PRN ×2 (06:43→14:58)
[2021-04-07 06:55] VITALS: BP 174/86
[2021-04-07 07:02] VITALS: BP 170/84
[2021-04-07] MEDS ORDERED: PILL CUTTER 1 EACH XX PRN (07:25)
[2021-04-07] MEDS ORDERED: **hydrALAZINE HCL** 25 MG TAB PO ONE (08:00)
[2021-04-07] MEDS: METHADONE 5 MG TAB (S0109) PO SCH (08:05)
[2021-04-07] MEDS: METHADONE 10 MG TAB (S0109) PO SCH (08:05)
[2021-04-07 08:06] VITALS: BP 168/80
[2021-04-07] MEDS: VENLAFAXINE **XR** 37.5 MG CAPSULE PO SCH (08:06)
[2021-04-07] MEDS: OLANZapine 5 MG TAB PO SCH ×3 (08:06→20:00)
[2021-04-07] MEDS: NICOTINE 21MG/24HR 1 EA TRANSDERMAL TD SCH (08:06)
[2021-04-07] MEDS: GABAPENTIN 400MG CAP PO SCH ×3 (09:18→20:00)
[2021-04-07 11:13] LABS: HEMATOCRIT 34.7 % (36.0-47.0); HEMOGLOBIN 11.2 g/dl (12.0-15.5); MEAN CORPUSCULAR HEMOGLOBIN 30.8 pg (27.0-33.0); MEAN CORPUSCULAR HGB CONC 32.3 g/dl (32.0-36.5); MEAN CORPUSCULAR VOLUME 95.3 fl (80.0-96.0); PLATELET COUNT, AUTOMATED 109 10^3/uL (150-450); RED BLOOD COUNT 3.64 10^6/uL (4.00-5.40); WHITE BLOOD COUNT 5.5 10^3/uL (4.0-10.0)
[2021-04-07 11:33] LABS: CALCIUM LEVEL 8.5 MG/DL (8.5-10.1); CREATININE FOR GFR 1.78 MG/DL (0.55-1.30); GLOMERULAR FILTRATION RATE 33.8 (>60); POTASSIUM SERUM 3.8 MEQ/L (3.5-5.1)
[2021-04-07] MEDS: hydrOXYzine 50 MG TAB PO PRN ×2 (14:58→22:12)
[2021-04-07] MEDS: QUEtiapine FUMARATE 50MG TAB PO SCH (20:00)
[2021-04-07] MEDS: traZODone 50 MG TAB PO PRN (20:00)
[2021-04-08] MEDS: LEVOTHYROXINE 150MCG TABLET (0.15MG) PO SCH (05:32)
[2021-04-08 06:27] VITALS: BP 91/52
[2021-04-08] MEDS: METHADONE 5 MG TAB (S0109) PO SCH (08:17)
[2021-04-08] MEDS: METHADONE 10 MG TAB (S0109) PO SCH (08:17)
[2021-04-08] MEDS: VENLAFAXINE **XR** 75MG CAPSULE PO SCH (08:18)
[2021-04-08] MEDS: OLANZapine 5 MG TAB PO SCH ×3 (08:18→21:30)
[2021-04-08] MEDS: GABAPENTIN 400MG CAP PO SCH ×3 (08:18→21:30)
[2021-04-08] MEDS: NICOTINE 21MG/24HR 1 EA TRANSDERMAL TD SCH (08:19)
[2021-04-08] MEDS: hydrOXYzine 50 MG TAB PO PRN ×2 (11:47→18:05)
[2021-04-08] MEDS: ACETAMINOPHEN TAB 650MG DOSE (2X325MG) PO PRN (11:49)
[2021-04-08 16:22] VITALS: BP 110/71
--- NOTE | 2021-04-08 20:09 | REP ---
INDICATION: pleuritic pain with hemoptysis COMPARISON: None TECHNIQUE: Axial noncontrast images from the thoracic inlet to the upper abdomen with coronal and sagittal reformations. This CT examination was performed using the following dose reduction techniques: Automated exposure control, adjustment of mA and/or kv according to the patient's size, and use of iterative reconstruction technique. FINDINGS: There is a moderate to large left lower lobe consolidation and smaller focus of ill-defined consolidation in the right lower lobe (series 201; image [id number]) and few smaller ill-defined areas of opacity along with mediastinal and hilar adenopathy. No effusion. No pneumothorax. Tracheobronchial tree is patent. The mediastinum demonstrates normal thoracic aorta, pulmonary vasculature, and heart/pericardium. Surrounding musculoskeletal structures are intact. IMPRESSION: Differential diagnosis includes pneumonia, COVID-19 disease, and malignancy cannot be excluded. Follow-up to resolution is required. <Electronically signed by Alvarado Muir > 04/08/212004
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
[2021-04-08] MEDS: traZODone 50 MG TAB PO PRN (21:30)
[2021-04-08] MEDS: QUEtiapine FUMARATE 50MG TAB PO SCH (21:30)
[2021-04-09] MEDS: LEVOTHYROXINE 150MCG TABLET (0.15MG) PO SCH (05:31)
[2021-04-09 06:04] VITALS: BP 107/61
[2021-04-09 08:01] LABS: HEMATOCRIT 29.1 % (36.0-47.0); HEMOGLOBIN 9.3 g/dl (12.0-15.5); MEAN CORPUSCULAR HEMOGLOBIN 30.5 pg (27.0-33.0); MEAN CORPUSCULAR VOLUME 95.4 fl (80.0-96.0); PLATELET COUNT, AUTOMATED 109 10^3/uL (150-450); RED BLOOD COUNT 3.05 10^6/uL (4.00-5.40); WHITE BLOOD COUNT 6.5 10^3/uL (4.0-10.0)
[2021-04-09] MEDS: NICOTINE 21MG/24HR 1 EA TRANSDERMAL TD SCH (08:06)
[2021-04-09] MEDS: METHADONE 10 MG TAB (S0109) PO SCH (08:06)
[2021-04-09] MEDS: METHADONE 5 MG TAB (S0109) PO SCH (08:06)
[2021-04-09] MEDS: OLANZapine 5 MG TAB PO SCH (08:06)
[2021-04-09] MEDS: GABAPENTIN 400MG CAP PO SCH (08:06)
[2021-04-09] MEDS: VENLAFAXINE **XR** 75MG CAPSULE PO SCH (08:06)
[2021-04-09] MEDS ORDERED: DOXYCYCLINE HYCLATE 100MG TABLET PO SCH (09:00)
[2021-04-09] MEDS ORDERED: CEFDINIR 300 MG CAP (OMNICEF) PO SCH (09:00)
[2021-04-09] MEDS ORDERED: GABA800T4 PO (09:11)
[2021-04-09] MEDS ORDERED: VENL75CA47 PO (09:11)
[2021-04-09] MEDS ORDERED: OLAN1TAB16 PO (09:11)
[2021-04-09] MEDS ORDERED: HYDR50TA70 PO (09:11)
[2021-04-09] MEDS ORDERED: TRAZ-252 PO (09:11)
[2021-04-09] MEDS ORDERED: QUET50TA4 PO (09:11)
--- NOTE | 2021-04-09 14:51 | MHIPN ---
[facility] PROGRESS NOTE DATE: 04/08/2021 VITAL SIGNS: Temperature 98.4, pulse 88, respirations 20, blood pressure 91/32. CURRENT MEDICATIONS: - Effexor XR 75 mg every morning - Atarax 50 mg every 6 hours as needed - methadone 155 mg per day - Zyprexa 5 mg three times a day - Seroquel 50 mg at bedtime - gabapentin 800 mg three times a day - trazodone 50 mg at bedtime as needed HISTORY OF PRESENT ILLNESS: A 41-year-old white female with a history of major depression. Patient had elevated temperature several days ago and was diagnosed with a urinary tract infection (UTI). Patient's mood feels better of late. Discontinuing the Wellbutrin seems to have reduced her anxiety. Her Effexor dosage is being titrated upward, which also seems to be helpful. She feels more positive about the future. She feels more hopeful. She is goal oriented. Her appetite is good. She sleeps fairly well. She denies any major psychosocial stressors. MENTAL STATUS EXAMINATION: Patient is alert, oriented, and cooperative. Mood and affect much improved today. She is not suicidal. She is not homicidal. Range of affect definitely improved. She is brighter. Grooming and hygiene appear fairly good. Auditory hallucinations appear to have resolved. Paranoia is minimal. Grooming and hygiene appear improved as well. Insight and judgment appear improved today. No signs of cognitive deficits. No signs of impulsivity or dangerousness. ASSESSMENT: Patient shows good response to medication changes. DIAGNOSES: 1. Schizoaffective disorder, depressed. 2 Posttraumatic stress disorder by history. 3. Generalized anxiety disorder. 4. Borderline personality disorder. 5. Opiate use disorder. 6. Amphetamine use disorder. 7. Urinary tract infection. PLAN: Continue present management. Staff working on discharge planning.
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
== END 2021-04-09 10:36 | disposition home or self-care (01) | DRG 750 ==
LOC: M ED 14:59 → M ED INP 17:26 → M PSY 20:50
PROVIDERS: ADMIT Psychiatry & Neurology Psychiatry; ATTEND Psychiatry & Neurology Psychiatry
DX: F25.1 Schizoaffective disorder, depressive type (principal); Z91.128 Patient's intentional underdosing of medication regimen for other reason; R45.851 Suicidal ideations; N18.30 Chronic kidney disease, stage 3 unspecified; F43.10 Post-traumatic stress disorder, unspecified; F41.1 Generalized anxiety disorder; F60.3 Borderline personality disorder; F11.10 Opioid abuse, uncomplicated; F15.10 Other stimulant abuse, uncomplicated; K08.89 Other specified disorders of teeth and supporting structures; M79.661 Pain in right lower leg; N39.0 Urinary tract infection, site not specified; F17.200 Nicotine dependence, unspecified, uncomplicated; E03.9 Hypothyroidism, unspecified; M54.9 Dorsalgia, unspecified; Z86.14 Personal history of Methicillin resistant Staphylococcus aureus infection; Z91.14 Patient's other noncompliance with medication regimen; Z87.81 Personal history of (healed) traumatic fracture; Z86.16 Personal history of COVID-19

== ENCOUNTER 2021-09-20 13:26 | Inpatient (IN) | payer OTHER ==
[~2021-09-20] VITALS: Ht 157.5 cm; Wt 122.0 kg
[~2021-09-20 13:26] MED LIST changes: +HYDR50TA70 PO; +OMEP-173; +OMEP-173 PO; -OMEP-218; -OMEP-218 PO; -PROC10TA4 PO; +PROC10TA5 PO; +TRAZ-252 PO; +VENL75CA47 PO
[2021-09-20] MEDS ORDERED: IPRATROPIUM 0.5MG/ALBUTEROL 2.5MG INH SOL UD 3ML (DUONEB) NEB PRN (14:10)
[2021-09-20] MEDS ORDERED: methylPREDNISolone 125MG 2ML VIAL IV ONE (14:10)
[2021-09-20 14:26] LABS: HEMATOCRIT 32.7 % (36.0-47.0); HEMOGLOBIN 10.1 g/dl (12.0-15.5); MEAN CORPUSCULAR HEMOGLOBIN 30.2 pg (27.0-33.0); MEAN CORPUSCULAR HGB CONC 30.9 g/dl (32.0-36.5); MEAN CORPUSCULAR VOLUME 97.9 fl (80.0-96.0); RED BLOOD COUNT 3.34 10^6/uL (4.00-5.40); WHITE BLOOD COUNT 5.9 10^3/uL (4.0-10.0)
[2021-09-20] MEDS ORDERED: NALOXONE 2MG/2ML SYRINGE (J2310 PER 1MG) IV STA (14:26)
[2021-09-20 14:27] LABS: PLATELET COUNT, AUTOMATED 99 10^3/uL (150-450)
[2021-09-20] MEDS ORDERED: cefTRIAXone SOD 2 GM in D5W MINI-BAG PLUS 50 ML IV ONE (14:30)
[2021-09-20] MEDS ORDERED: ACETAMINOPHEN 325 MG/10.15 ML UDC PO ONE (14:30)
[2021-09-20 14:33] LABS: ABG BASE EXCESS 1.4 (-2.0-2.0); ABG HCO3 25.9 MEQ/L (22.0-26.0); ABG O2 SATURATION 94.2 % (95.0-99.0); ABG PARTIAL PRESSURE CO2 40.6 mmHg (35.0-45.0); ABG PARTIAL PRESSURE O2 67.5 mmHg (75.0-100.0); ABG STANDARD HCO3 25.7 MEQ/L (22.0-26.0); ABG TOTAL CO2 27.2 MEQ/L (22.0-29.0); ABG pH (ARTERIAL) 7.423 UNITS (7.350-7.450)
[2021-09-20 14:50] LABS: ATYPICAL LYMPH 1 % (0-5); BASOPHILS 1 % (0-1); EOSINOPHILS 1 % (0-3); LYMPHOCYTES 11 % (16-44); MONOCYTES 4 % (0-5); NEUTROPHILS 63 % (28-66)
[2021-09-20 14:52] LABS: PLATELET ESTIMATE DECREASED (NORMAL); TEAR DROP CELLS 4+
[2021-09-20 14:54] LABS: OVALOCYTES 2+
[2021-09-20 15:00] LABS: CK-MB VALUE MASS < 1.0 NG/ML (<3.6); CPK CREATINE PHOSPHOKINASE 55 U/L (26-192); MB/CK RELATIVE INDEX 1.82 (< OR =4)
[2021-09-20 15:02] LABS: HCG, SERUM QUALITATIVE NEGATIVE (NEGATIVE)
[2021-09-20] MEDS ORDERED: PROPOFOL 1,000 MG/100 ML VIAL As Ordered ONE ×2 (15:04→17:04)
[2021-09-20] MEDS ORDERED: MIDAZOLAM INJ 2MG/2ML VIAL (J2250 PER 1MG) IV ONE (15:05)
[2021-09-20] MEDS: propofoL 1,000 MG in IV 1 EA IV SCH ×5 (15:05→21:30)
[2021-09-20 15:08] LABS: ALBUMIN 3.5 GM/DL (3.2-5.2); ALT/SGPT 22 U/L (12-78); BILIRUBIN,DIRECT 0.4 MG/DL (0.0-0.2); BILIRUBIN,TOTAL 1.6 MG/DL (0.2-1.0); BLOOD UREA NITROGEN 14 MG/DL (7-18); CARBON DIOXIDE LEVEL 28 MEQ/L (21-32); CHLORIDE LEVEL 103 MEQ/L (98-107); CREATININE FOR GFR 1.66 MG/DL (0.55-1.30); GLOMERULAR FILTRATION RATE 36.6 (>60); GLUCOSE, FASTING 132 MG/DL (70-100); NT-PRO BNP 140 PG/ML (<125); POTASSIUM SERUM 5.5 MEQ/L (3.5-5.1); SODIUM LEVEL 137 MEQ/L (136-145); TOTAL PROTEIN 7.7 GM/DL (6.4-8.2)
[2021-09-20] MEDS ORDERED: MIDAZOLAM 5MG/ML 1ML VIAL (J2250 PER 1MG) As Ordered ONE (15:08)
[2021-09-20] MEDS ORDERED: SUCCINYLCHOLINE INJ 200 MG/10 ML VIAL (J0330) IV STA (15:19)
[2021-09-20] MEDS ORDERED: ETOMIDATE INJ 20MG/10ML VIAL IV STA (15:19)
[2021-09-20] MEDS ORDERED: FUROSEMIDE 40MG/4ML VIAL (J1940) IV ONE (15:20)
[2021-09-20] MEDS ORDERED: propofoL 200 MG/20 ML VIAL IV ONE ×6 (15:20→15:55)
[2021-09-20 15:36] LABS: ABG BASE EXCESS -2.3 (-2.0-2.0); ABG HCO3 22.7 MEQ/L (22.0-26.0); ABG PARTIAL PRESSURE CO2 39.7 mmHg (35.0-45.0); ABG PARTIAL PRESSURE O2 93.5 mmHg (75.0-100.0); ABG STANDARD HCO3 22.6 MEQ/L (22.0-26.0); ABG TOTAL CO2 23.9 MEQ/L (22.0-29.0); ABG pH (ARTERIAL) 7.375 UNITS (7.350-7.450)
[2021-09-20] MEDS ORDERED: QUET100T2 PO (15:44)
[2021-09-20] MEDS ORDERED: GABA800T4 PO (15:44)
[2021-09-20] MEDS ORDERED: PRAZ5CAP PO (15:44)
[2021-09-20] MEDS ORDERED: TRAZ-186 PO (15:44)
[2021-09-20] MEDS ORDERED: HYDR50TA70 PO (15:44)
[2021-09-20] MEDS ORDERED: VENL150C43 PO (15:44)
[2021-09-20] MEDS ORDERED: OLAN1TAB16 PO (15:44)
[2021-09-20] MEDS ORDERED: HOME MED LIST COMPLETE! XX SCH (17:05)
[2021-09-20] MEDS ORDERED: REFRIGERATOR IV KEYS XX PRN (18:15)
[2021-09-20] MEDS ORDERED: METAL LOCK LOOP XX ONE (18:53)
[2021-09-20 19:47] LABS: MAGNESIUM LEVEL 2.3 MG/DL (1.8-2.4); PHOSPHORUS LEVEL 2.1 MG/DL (2.5-4.9)
[2021-09-20] MEDS: IPRATROPIUM 0.5MG/ALBUTEROL 2.5MG INH SOL UD 3ML (DUONEB) NEB SCH ×2 (20:14→23:59)
[2021-09-20 20:30] VITALS: BP 110/70
[2021-09-20 21:00] VITALS: BP 116/62
[2021-09-20] MEDS: GABAPENTIN 400MG CAP PO SCH (21:00)
[2021-09-20] MEDS: traZODone 50 MG TAB PO SCH (21:00)
[2021-09-20] MEDS: PRAZOSIN 1 MG CAP PO SCH (21:00)
[2021-09-20] MEDS: OLANZapine 5 MG TAB PO SCH (21:00)
[2021-09-20] MEDS: QUEtiapine FUMARATE 100 MG TAB PO SCH (21:00)
[2021-09-20 21:15] VITALS: BP 111/64
[2021-09-20] MEDS: MIDAZOLAM HCL 100 MG in D5W 80 ML IV SCH (21:18)
[2021-09-20 21:31] VITALS: BP 141/64
[2021-09-20] MEDS: CHLORHEXIDINE GLUCONATE 0.12 % 15ML UDC (PERIDEX ORAL RINSE) MT SCH (21:38)
[2021-09-20 21:41] VITALS: BP 109/55
[2021-09-20 21:45] VITALS: BP 111/65
[2021-09-20 21:57] LABS: ABG BASE EXCESS -5.7 (-2.0-2.0); ABG HCO3 20.1 MEQ/L (22.0-26.0); ABG PARTIAL PRESSURE CO2 40.8 mmHg (35.0-45.0); ABG PARTIAL PRESSURE O2 100.7 mmHg (75.0-100.0); ABG STANDARD HCO3 19.7 MEQ/L (22.0-26.0); ABG TOTAL CO2 21.4 MEQ/L (22.0-29.0); ABG pH (ARTERIAL) 7.311 UNITS (7.350-7.450)
[2021-09-21] VITALS (45 sets, daily range): BP systolic 94–135; BP diastolic 51–76
[2021-09-21] MEDS: propofoL 1,000 MG in IV 1 EA IV SCH ×7 (00:03→21:25)
[2021-09-21] MEDS ORDERED: NS 250 ML IV ONE ×2 (01:10→06:40)
[2021-09-21] MEDS ORDERED: NS 500 ML IV ONE (02:50)
[2021-09-21] MEDS: IPRATROPIUM 0.5MG/ALBUTEROL 2.5MG INH SOL UD 3ML (DUONEB) NEB SCH ×5 (05:01→19:30)
[2021-09-21 05:48] LABS: ABG BASE EXCESS -1.9 (-2.0-2.0); ABG HCO3 22.6 MEQ/L (22.0-26.0); ABG O2 SATURATION 97.9 % (95.0-99.0); ABG PARTIAL PRESSURE CO2 36.9 mmHg (35.0-45.0); ABG PARTIAL PRESSURE O2 105.9 mmHg (75.0-100.0); ABG STANDARD HCO3 22.9 MEQ/L (22.0-26.0); ABG TOTAL CO2 23.7 MEQ/L (22.0-29.0); ABG pH (ARTERIAL) 7.404 UNITS (7.350-7.450)
[2021-09-21] MEDS: LEVOTHYROXINE 150MCG TABLET (0.15MG) PO SCH (07:10)
[2021-09-21 08:36] LABS: CALCIUM LEVEL 8.7 MG/DL (8.5-10.1); CREATININE FOR GFR 1.69 MG/DL (0.55-1.30); GLOMERULAR FILTRATION RATE 35.9 (>60)
[2021-09-21] MEDS ORDERED: VENLAFAXINE **XR** 75MG CAPSULE PO SCH (09:00)
[2021-09-21] MEDS: ENOXAPARIN 40MG/0.4ML SYRINGE (J1650 PER 10MG) SC SCH (09:15)
[2021-09-21] MEDS: PANTOPRAZOLE 40MG VIAL IV SCH (09:15)
[2021-09-21] MEDS: OLANZapine 5 MG TAB PO SCH ×3 (09:15→20:20)
[2021-09-21] MEDS: CHLORHEXIDINE GLUCONATE 0.12 % 15ML UDC (PERIDEX ORAL RINSE) MT SCH ×2 (09:15→20:19)
[2021-09-21] MEDS: METHADONE 10MG TAB PO SCH (09:15)
[2021-09-21] MEDS: GABAPENTIN 400MG CAP PO SCH ×3 (09:15→20:20)
[2021-09-21] MEDS: LR 1,000 ML IV SCH ×2 (09:25→11:29)
[2021-09-21] MEDS ORDERED: DEXTROSE 50% 50 ML SYRINGE IV PRN (09:35)
[2021-09-21] MEDS ORDERED: GLUCAGON INJ 1MG VIAL SC PRN (09:35)
[2021-09-21] MEDS ORDERED: GLUCOSE 4GM CHEW TABLET PO PRN (09:35)
[2021-09-21] MEDS: INSULIN LISPRO (NovoLOG) PER UNIT SC SCH ×2 (11:29→17:16)
[2021-09-21] MEDS: VENLAFAXINE 37.5 MG TAB PO SCH ×2 (14:45→20:19)
[2021-09-21] MEDS: cefTRIAXone SOD 1 GM in D5W MINI-BAG PLUS 50 ML IV SCH (14:45)
[2021-09-21] MEDS ORDERED: MIDAZOLAM HCL 100 MG in D5W 80 ML IV SCH (14:50)
[2021-09-21] MEDS ORDERED: cefTRIAXone SOD 1GM VIAL (J0696 PER 250MG) IV SCH (15:00)
[2021-09-21] MEDS: fentaNYL CITRATE 1,000 MCG in NS 80 ML IV SCH (15:25)
[2021-09-21] MEDS: ACETYLCYSTEINE 20% 4 ML VIAL (200MG/ML) INH SCH (19:30)
[2021-09-21] MEDS: traZODone 50 MG TAB PO SCH (20:20)
[2021-09-21] MEDS: MIDAZOLAM HCL 100 MG in D5W 80 ML IV SCH (20:35)
[2021-09-21] MEDS: QUEtiapine FUMARATE 100 MG TAB PO SCH (21:35)
[2021-09-21] MEDS: PRAZOSIN 1 MG CAP PO SCH (21:36)
[2021-09-22] VITALS (45 sets, daily range): BP systolic 110–153; BP diastolic 51–76
[2021-09-22] MEDS: INSULIN LISPRO (NovoLOG) PER UNIT SC SCH ×5 (00:17→23:34)
[2021-09-22] MEDS: IPRATROPIUM 0.5MG/ALBUTEROL 2.5MG INH SOL UD 3ML (DUONEB) NEB SCH ×6 (00:25→19:38)
[2021-09-22] MEDS: fentaNYL CITRATE 1,000 MCG in NS 80 ML IV SCH ×2 (01:10→14:24)
[2021-09-22] MEDS: propofoL 1,000 MG in IV 1 EA IV SCH ×2 (01:16→05:29)
[2021-09-22 05:03] LABS: HEMATOCRIT 26.6 % (36.0-47.0); HEMOGLOBIN 8.6 g/dl (12.0-15.5); MEAN CORPUSCULAR HEMOGLOBIN 30.5 pg (27.0-33.0); MEAN CORPUSCULAR HGB CONC 32.3 g/dl (32.0-36.5); MEAN CORPUSCULAR VOLUME 94.3 fl (80.0-96.0); PLATELET COUNT, AUTOMATED 111 10^3/uL (150-450); RED BLOOD COUNT 2.82 10^6/uL (4.00-5.40); WHITE BLOOD COUNT 6.6 10^3/uL (4.0-10.0)
[2021-09-22 05:14] LABS: CALCIUM LEVEL 9.1 MG/DL (8.5-10.1); CREATININE FOR GFR 1.25 MG/DL (0.55-1.30); GLOMERULAR FILTRATION RATE 50.8 (>60); POTASSIUM SERUM 3.5 MEQ/L (3.5-5.1)
[2021-09-22] MEDS: LEVOTHYROXINE 150MCG TABLET (0.15MG) PO SCH (05:29)
[2021-09-22 05:58] LABS: ABG BASE EXCESS 0.3 (-2.0-2.0); ABG HCO3 23.1 MEQ/L (22.0-26.0); ABG O2 SATURATION 99.3 % (95.0-99.0); ABG PARTIAL PRESSURE CO2 30.3 mmHg (35.0-45.0); ABG PARTIAL PRESSURE O2 140.5 mmHg (75.0-100.0); ABG STANDARD HCO3 24.8 MEQ/L (22.0-26.0)
[2021-09-22] MEDS: ACETYLCYSTEINE 20% 4 ML VIAL (200MG/ML) INH SCH (07:11)
[2021-09-22] MEDS ORDERED: propofoL 1,000 MG in IV 1 EA IV SCH (07:50)
[2021-09-22] MEDS: OLANZapine 5 MG TAB PO SCH ×3 (08:42→20:29)
[2021-09-22] MEDS: VENLAFAXINE 37.5 MG TAB PO SCH ×2 (08:43→20:29)
[2021-09-22] MEDS: CHLORHEXIDINE GLUCONATE 0.12 % 15ML UDC (PERIDEX ORAL RINSE) MT SCH ×2 (08:43→20:29)
[2021-09-22] MEDS: METHADONE 10MG TAB PO SCH (08:43)
[2021-09-22] MEDS: ENOXAPARIN 40MG/0.4ML SYRINGE (J1650 PER 10MG) SC SCH (08:43)
[2021-09-22] MEDS: GABAPENTIN 400MG CAP PO SCH ×3 (08:43→20:30)
[2021-09-22] MEDS: PANTOPRAZOLE 40MG VIAL IV SCH (08:44)
[2021-09-22] MEDS: SODIUM CHLORIDE HYPERTONIC 3% 15ML NEB SOL INH SCH ×4 (09:01→19:38)
[2021-09-22 10:48] LABS: ABG BASE EXCESS -0.7 (-2.0-2.0); ABG HCO3 23.9 MEQ/L (22.0-26.0); ABG O2 SATURATION 95.9 % (95.0-99.0); ABG PARTIAL PRESSURE CO2 38.5 mmHg (35.0-45.0); ABG STANDARD HCO3 23.9 MEQ/L (22.0-26.0)
[2021-09-22] MEDS: cefTRIAXone SOD 1 GM in D5W MINI-BAG PLUS 50 ML IV SCH (15:17)
[2021-09-22] MEDS ORDERED: LACTATED RINGER'S 1000 ML IV ONE (16:55)
[2021-09-22] MEDS: ACETAMINOPHEN 325 MG/10.15 ML UDC GT PRN ×2 (17:02→22:21)
[2021-09-22] MEDS: MIDAZOLAM HCL 100 MG in D5W 80 ML IV SCH ×2 (19:00→21:54)
[2021-09-22] MEDS: traZODone 50 MG TAB PO SCH (22:10)
[2021-09-22] MEDS: PRAZOSIN 1 MG CAP PO SCH (22:22)
[2021-09-22] MEDS: QUEtiapine FUMARATE 100 MG TAB PO SCH (22:22)
[2021-09-23] VITALS (45 sets, daily range): BP systolic 117–142; BP diastolic 55–76
[2021-09-23] MEDS: SODIUM CHLORIDE HYPERTONIC 3% 15ML NEB SOL INH SCH ×7 (00:11→23:54)
[2021-09-23] MEDS: IPRATROPIUM 0.5MG/ALBUTEROL 2.5MG INH SOL UD 3ML (DUONEB) NEB SCH ×7 (00:11→23:52)
[2021-09-23] MEDS: fentaNYL CITRATE 1,000 MCG in NS 80 ML IV SCH ×2 (03:41→16:49)
[2021-09-23 05:08] LABS: HEMATOCRIT 26.6 % (36.0-47.0); MEAN CORPUSCULAR HEMOGLOBIN 29.3 pg (27.0-33.0); MEAN CORPUSCULAR HGB CONC 30.1 g/dl (32.0-36.5); MEAN CORPUSCULAR VOLUME 97.4 fl (80.0-96.0); PLATELET COUNT, AUTOMATED 128 10^3/uL (150-450); RED BLOOD COUNT 2.73 10^6/uL (4.00-5.40); WHITE BLOOD COUNT 5.4 10^3/uL (4.0-10.0)
[2021-09-23] MEDS: LEVOTHYROXINE 150MCG TABLET (0.15MG) PO SCH (05:26)
[2021-09-23] MEDS: INSULIN LISPRO (NovoLOG) PER UNIT SC SCH ×3 (05:26→17:57)
[2021-09-23 05:29] LABS: CALCIUM LEVEL 8.6 MG/DL (8.5-10.1); CREATININE FOR GFR 1.14 MG/DL (0.55-1.30); GLOMERULAR FILTRATION RATE 56.5 (>60)
[2021-09-23 05:52] LABS: ABG BASE EXCESS 1.8 (-2.0-2.0); ABG HCO3 26.4 MEQ/L (22.0-26.0); ABG O2 SATURATION 98.5 % (95.0-99.0); ABG PARTIAL PRESSURE CO2 41.4 mmHg (35.0-45.0); ABG PARTIAL PRESSURE O2 111.5 mmHg (75.0-100.0); ABG STANDARD HCO3 26.1 MEQ/L (22.0-26.0); ABG TOTAL CO2 27.7 MEQ/L (22.0-29.0); ABG pH (ARTERIAL) 7.423 UNITS (7.350-7.450)
[2021-09-23] MEDS: CHLORHEXIDINE GLUCONATE 0.12 % 15ML UDC (PERIDEX ORAL RINSE) MT SCH ×2 (08:45→20:19)
[2021-09-23] MEDS: METHADONE 10MG TAB PO SCH (08:46)
[2021-09-23] MEDS: OLANZapine 5 MG TAB PO SCH ×3 (08:47→20:19)
[2021-09-23] MEDS: VENLAFAXINE 37.5 MG TAB PO SCH ×2 (08:47→20:18)
[2021-09-23] MEDS: PANTOPRAZOLE 40MG VIAL IV SCH (08:48)
[2021-09-23] MEDS: ENOXAPARIN 40MG/0.4ML SYRINGE (J1650 PER 10MG) SC SCH (08:48)
[2021-09-23] MEDS: GABAPENTIN 400MG CAP PO SCH ×3 (08:48→20:19)
[2021-09-23] MEDS ORDERED: MIRALAX *UNIT DOSE* 17GM PACKET PO PRN (10:30)
[2021-09-23] MEDS: dexmedeTOMidine 200 MCG in IV 1 EA IV SCH ×5 (12:34→23:44)
[2021-09-23] MEDS: cefTRIAXone SOD 1 GM in D5W MINI-BAG PLUS 50 ML IV SCH (14:31)
[2021-09-23] MEDS: ACETAMINOPHEN 325 MG/10.15 ML UDC GT PRN (15:23)
[2021-09-23] MEDS: DOCUSATE SOD LIQ 100MG/10ML UDC GT PRN (15:23)
[2021-09-23] MEDS: traZODone 50 MG TAB PO SCH (20:18)
[2021-09-23] MEDS: QUEtiapine FUMARATE 100 MG TAB PO SCH (20:19)
[2021-09-23] MEDS: PRAZOSIN 1 MG CAP PO SCH (20:19)
[2021-09-24] VITALS (46 sets, daily range): BP systolic 104–149; BP diastolic 57–72
[2021-09-24] MEDS: INSULIN LISPRO (NovoLOG) PER UNIT SC SCH ×4 (00:09→18:00)
[2021-09-24] MEDS: dexmedeTOMidine 200 MCG in IV 1 EA IV SCH ×12 (02:34→23:16)
[2021-09-24] MEDS ORDERED: MIDAZOLAM INJ 2MG/2ML VIAL (J2250 PER 1MG) IV STA (03:18)
[2021-09-24] MEDS ORDERED: MIDAZOLAM 5MG/ML 1ML VIAL (J2250 PER 1MG) As Ordered ONE ×2 (03:19→18:44)
[2021-09-24] MEDS: ACETAMINOPHEN 325 MG/10.15 ML UDC GT PRN ×2 (03:47→17:08)
[2021-09-24] MEDS: IPRATROPIUM 0.5MG/ALBUTEROL 2.5MG INH SOL UD 3ML (DUONEB) NEB SCH ×6 (04:01→23:23)
[2021-09-24] MEDS: SODIUM CHLORIDE HYPERTONIC 3% 15ML NEB SOL INH SCH ×4 (04:04→23:23)
[2021-09-24] MEDS: fentaNYL CITRATE 1,000 MCG in NS 80 ML IV SCH ×3 (04:09→15:10)
[2021-09-24 04:31] LABS: HEMATOCRIT 28.2 % (36.0-47.0); HEMOGLOBIN 8.5 g/dl (12.0-15.5); MEAN CORPUSCULAR HEMOGLOBIN 29.8 pg (27.0-33.0); MEAN CORPUSCULAR HGB CONC 30.1 g/dl (32.0-36.5); MEAN CORPUSCULAR VOLUME 98.9 fl (80.0-96.0); PLATELET COUNT, AUTOMATED 121 10^3/uL (150-450); RED BLOOD COUNT 2.85 10^6/uL (4.00-5.40); WHITE BLOOD COUNT 4.5 10^3/uL (4.0-10.0)
[2021-09-24 04:53] LABS: CALCIUM LEVEL 8.4 MG/DL (8.5-10.1); CREATININE FOR GFR 1.09 MG/DL (0.55-1.30); GLOMERULAR FILTRATION RATE 59.5 (>60); POTASSIUM SERUM 4.7 MEQ/L (3.5-5.1)
[2021-09-24] MEDS: LEVOTHYROXINE 150MCG TABLET (0.15MG) PO SCH (05:30)
[2021-09-24 05:56] LABS: ABG HCO3 29.5 MEQ/L (22.0-26.0); ABG O2 SATURATION 97.4 % (95.0-99.0); ABG PARTIAL PRESSURE CO2 43.6 mmHg (35.0-45.0); ABG PARTIAL PRESSURE O2 95.7 mmHg (75.0-100.0); ABG TOTAL CO2 30.8 MEQ/L (22.0-29.0); ABG pH (ARTERIAL) 7.448 UNITS (7.350-7.450)
[2021-09-24 08:06] LABS: ABG BASE EXCESS 0.2 (-2.0-2.0); ABG HCO3 24.6 MEQ/L (22.0-26.0); ABG O2 SATURATION 94.1 % (95.0-99.0); ABG PARTIAL PRESSURE CO2 38.9 mmHg (35.0-45.0); ABG PARTIAL PRESSURE O2 73.2 mmHg (75.0-100.0); ABG STANDARD HCO3 24.6 MEQ/L (22.0-26.0); ABG TOTAL CO2 25.8 MEQ/L (22.0-29.0); ABG pH (ARTERIAL) 7.419 UNITS (7.350-7.450)
[2021-09-24] MEDS: MEROPENEM INJ 1 GM in IV 1 EA IV SCH ×2 (09:12→16:13)
[2021-09-24] MEDS: PANTOPRAZOLE 40MG VIAL IV SCH (09:13)
[2021-09-24] MEDS: VENLAFAXINE 37.5 MG TAB PO SCH ×2 (09:13→21:05)
[2021-09-24] MEDS: CHLORHEXIDINE GLUCONATE 0.12 % 15ML UDC (PERIDEX ORAL RINSE) MT SCH ×2 (09:13→21:05)
[2021-09-24] MEDS: ENOXAPARIN 40MG/0.4ML SYRINGE (J1650 PER 10MG) SC SCH (09:13)
[2021-09-24] MEDS: GABAPENTIN 400MG CAP PO SCH ×3 (09:14→21:06)
[2021-09-24] MEDS: OLANZapine 5 MG TAB PO SCH ×3 (09:14→21:05)
[2021-09-24] MEDS: METHADONE 10MG TAB PO SCH (09:45)
[2021-09-24] MEDS ORDERED: LR 2,000 ML IV ONE (10:35)
[2021-09-24] MEDS: DOCUSATE SOD LIQ 100MG/10ML UDC GT PRN (16:14)
[2021-09-24] MEDS ORDERED: MIDAZOLAM HCL 100 MG in D5W 80 ML IV SCH (18:20)
[2021-09-24] MEDS ORDERED: MIDAZOLAM 5MG/ML 1ML VIAL (J2250 PER 1MG) IV STA (18:48)
[2021-09-24] MEDS: MIDAZOLAM HCL 100 MG in D5W 80 ML IV SCH (18:55)
[2021-09-24] MEDS: traZODone 50 MG TAB PO SCH (21:06)
[2021-09-24] MEDS: QUEtiapine FUMARATE 100 MG TAB PO SCH (21:06)
[2021-09-24] MEDS: PRAZOSIN 1 MG CAP PO SCH (21:06)
[2021-09-25] VITALS (28 sets, daily range): BP systolic 118–142; BP diastolic 56–72
[2021-09-25] MEDS: MEROPENEM INJ 1 GM in IV 1 EA IV SCH ×3 (00:18→16:14)
[2021-09-25] MEDS: dexmedeTOMidine 200 MCG in IV 1 EA IV SCH ×17 (00:18→23:35)
[2021-09-25] MEDS: INSULIN LISPRO (NovoLOG) PER UNIT SC SCH ×5 (00:27→23:16)
[2021-09-25] MEDS: IPRATROPIUM 0.5MG/ALBUTEROL 2.5MG INH SOL UD 3ML (DUONEB) NEB SCH ×5 (03:12→19:07)
[2021-09-25] MEDS: SODIUM CHLORIDE HYPERTONIC 3% 15ML NEB SOL INH SCH ×5 (03:12→19:09)
[2021-09-25] MEDS: fentaNYL CITRATE 1,000 MCG in NS 80 ML IV SCH ×3 (04:50→19:40)
[2021-09-25 04:56] LABS: HEMATOCRIT 28.4 % (36.0-47.0); HEMOGLOBIN 8.7 g/dl (12.0-15.5); MEAN CORPUSCULAR HEMOGLOBIN 30.1 pg (27.0-33.0); MEAN CORPUSCULAR HGB CONC 30.6 g/dl (32.0-36.5); MEAN CORPUSCULAR VOLUME 98.3 fl (80.0-96.0); PLATELET COUNT, AUTOMATED 120 10^3/uL (150-450); RED BLOOD COUNT 2.89 10^6/uL (4.00-5.40); WHITE BLOOD COUNT 5.2 10^3/uL (4.0-10.0)
[2021-09-25 05:17] LABS: BLOOD UREA NITROGEN 19 MG/DL (7-18); CALCIUM LEVEL 8.9 MG/DL (8.5-10.1); CARBON DIOXIDE LEVEL 29 MEQ/L (21-32); CHLORIDE LEVEL 104 MEQ/L (98-107); CREATININE FOR GFR 1.06 MG/DL (0.55-1.30); GLOMERULAR FILTRATION RATE > 60.0 (>60); GLUCOSE, FASTING 147 MG/DL (70-100); POTASSIUM SERUM 4.4 MEQ/L (3.5-5.1); SODIUM LEVEL 140 MEQ/L (136-145)
[2021-09-25 05:35] LABS: ABG BASE EXCESS 3.1 (-2.0-2.0); ABG HCO3 27.6 MEQ/L (22.0-26.0); ABG O2 SATURATION 95.5 % (95.0-99.0); ABG PARTIAL PRESSURE CO2 41.8 mmHg (35.0-45.0); ABG PARTIAL PRESSURE O2 80.6 mmHg (75.0-100.0); ABG STANDARD HCO3 27.2 MEQ/L (22.0-26.0); ABG TOTAL CO2 28.8 MEQ/L (22.0-29.0); ABG pH (ARTERIAL) 7.437 UNITS (7.350-7.450)
[2021-09-25] MEDS: LEVOTHYROXINE 150MCG TABLET (0.15MG) PO SCH (05:36)
[2021-09-25] MEDS: ALBUTEROL SULFATE 2.5 MG/0.5 ML INH NEB SOLN NEB PRN ×3 (07:01→15:06)
[2021-09-25] MEDS: CHLORHEXIDINE GLUCONATE 0.12 % 15ML UDC (PERIDEX ORAL RINSE) MT SCH ×2 (08:49→20:20)
[2021-09-25] MEDS: OLANZapine 5 MG TAB PO SCH ×3 (08:49→20:21)
[2021-09-25] MEDS: VENLAFAXINE 37.5 MG TAB PO SCH ×2 (08:49→20:23)
[2021-09-25] MEDS: GABAPENTIN 400MG CAP PO SCH ×3 (08:49→20:23)
[2021-09-25] MEDS: ENOXAPARIN 40MG/0.4ML SYRINGE (J1650 PER 10MG) SC SCH (08:50)
[2021-09-25] MEDS: METHADONE 10MG TAB PO SCH (08:50)
[2021-09-25] MEDS: PANTOPRAZOLE 40MG VIAL IV SCH (08:51)
[2021-09-25] MEDS: DOCUSATE SOD LIQ 100MG/10ML UDC PO SCH ×2 (12:06→20:20)
[2021-09-25] MEDS: MIRALAX *UNIT DOSE* 17GM PACKET PO SCH (12:06)
[2021-09-25] MEDS: ACETAMINOPHEN 325 MG/10.15 ML UDC GT PRN (12:06)
[2021-09-25] MEDS: MIDAZOLAM HCL 100 MG in D5W 80 ML IV SCH (15:04)
[2021-09-25] MEDS: SENNA SYRUP 15 ML UDC PO SCH (20:20)
[2021-09-25] MEDS: QUEtiapine FUMARATE 100 MG TAB PO SCH (20:21)
[2021-09-25] MEDS: PRAZOSIN 1 MG CAP PO SCH (20:23)
[2021-09-25] MEDS: traZODone 50 MG TAB PO SCH (20:23)
[2021-09-26] VITALS (26 sets, daily range): BP systolic 109–144; BP diastolic 56–72
[2021-09-26] MEDS: dexmedeTOMidine 200 MCG in IV 1 EA IV SCH ×17 (00:04→22:25)
[2021-09-26] MEDS: SODIUM CHLORIDE HYPERTONIC 3% 15ML NEB SOL INH SCH ×3 (00:30→08:16)
[2021-09-26] MEDS: IPRATROPIUM 0.5MG/ALBUTEROL 2.5MG INH SOL UD 3ML (DUONEB) NEB SCH ×3 (00:30→08:16)
[2021-09-26] MEDS: MEROPENEM INJ 1 GM in IV 1 EA IV SCH ×3 (01:35→16:26)
[2021-09-26 04:53] LABS: HEMATOCRIT 29.7 % (36.0-47.0); HEMOGLOBIN 9.1 g/dl (12.0-15.5); MEAN CORPUSCULAR HEMOGLOBIN 29.8 pg (27.0-33.0); MEAN CORPUSCULAR HGB CONC 30.6 g/dl (32.0-36.5); MEAN CORPUSCULAR VOLUME 97.4 fl (80.0-96.0); PLATELET COUNT, AUTOMATED 172 10^3/uL (150-450); RED BLOOD COUNT 3.05 10^6/uL (4.00-5.40); WHITE BLOOD COUNT 6.8 10^3/uL (4.0-10.0)
[2021-09-26] MEDS: INSULIN LISPRO (NovoLOG) PER UNIT SC SCH ×3 (05:17→17:28)
[2021-09-26] MEDS: ACETAMINOPHEN 325 MG/10.15 ML UDC GT PRN (05:17)
[2021-09-26] MEDS: LEVOTHYROXINE 150MCG TABLET (0.15MG) PO SCH (05:18)
[2021-09-26 05:24] LABS: ALBUMIN 2.7 GM/DL (3.2-5.2); ALT/SGPT 114 U/L (12-78); BILIRUBIN,TOTAL 0.6 MG/DL (0.2-1.0); BLOOD UREA NITROGEN 25 MG/DL (7-18); CALCIUM LEVEL 9.2 MG/DL (8.5-10.1); CARBON DIOXIDE LEVEL 31 MEQ/L (21-32); CHLORIDE LEVEL 99 MEQ/L (98-107); CREATININE FOR GFR 0.99 MG/DL (0.55-1.30); GLOMERULAR FILTRATION RATE > 60.0 (>60); GLUCOSE, FASTING 124 MG/DL (70-100); POTASSIUM SERUM 4.9 MEQ/L (3.5-5.1); SODIUM LEVEL 138 MEQ/L (136-145); TOTAL PROTEIN 6.7 GM/DL (6.4-8.2)
[2021-09-26 06:25] LABS: ABG BASE EXCESS 4.6 (-2.0-2.0); ABG HCO3 29.7 MEQ/L (22.0-26.0); ABG O2 SATURATION 93.5 % (95.0-99.0); ABG PARTIAL PRESSURE CO2 47.2 mmHg (35.0-45.0); ABG PARTIAL PRESSURE O2 69.6 mmHg (75.0-100.0); ABG STANDARD HCO3 28.5 MEQ/L (22.0-26.0); ABG TOTAL CO2 31.2 MEQ/L (22.0-29.0); ABG pH (ARTERIAL) 7.417 UNITS (7.350-7.450)
[2021-09-26] MEDS: PANTOPRAZOLE 40MG VIAL IV SCH (08:38)
[2021-09-26] MEDS: CHLORHEXIDINE GLUCONATE 0.12 % 15ML UDC (PERIDEX ORAL RINSE) MT SCH ×2 (08:38→20:17)
[2021-09-26] MEDS: MIRALAX *UNIT DOSE* 17GM PACKET PO SCH (08:38)
[2021-09-26] MEDS: DOCUSATE SOD LIQ 100MG/10ML UDC PO SCH ×2 (08:38→20:17)
[2021-09-26] MEDS: ENOXAPARIN 40MG/0.4ML SYRINGE (J1650 PER 10MG) SC SCH (08:39)
[2021-09-26] MEDS: METHADONE 10MG TAB PO SCH (08:39)
[2021-09-26] MEDS: OLANZapine 5 MG TAB PO SCH ×3 (08:40→20:19)
[2021-09-26] MEDS: VENLAFAXINE 37.5 MG TAB PO SCH ×2 (08:40→20:18)
[2021-09-26] MEDS: GABAPENTIN 400MG CAP PO SCH ×3 (08:40→20:18)
[2021-09-26] MEDS ORDERED: IPRATROPIUM 0.5MG/ALBUTEROL 2.5MG INH SOL UD 3ML (DUONEB) NEB PRN (10:50)
[2021-09-26] MEDS ORDERED: ISOVUE-370 76% 100ML VIAL As Ordered ONE (11:14)
[2021-09-26] MEDS: VANCOMYCIN HCL 1,000 MG, VIAL MATE ADAPTER 1 EACH in NS 250 ML IV SCH ×2 (11:23→19:12)
[2021-09-26] MEDS: GASTROGRAFIN SOLUTION 30ML PO SCH ×2 (11:40→12:13)
[2021-09-26] MEDS: fentaNYL CITRATE 1,000 MCG in NS 80 ML IV SCH (11:48)
[2021-09-26] MEDS: MIDAZOLAM INJ 2MG/2ML VIAL (J2250 PER 1MG) IV PRN ×4 (12:00→19:07)
[2021-09-26] MEDS ORDERED: VANCOMYCIN HCL 1,000 MG, VIAL MATE ADAPTER 1 EACH in NS 250 ML IV ONE (12:00)
[2021-09-26] MEDS ORDERED: LIDOCAINE 1% MDV 20ML VIAL As Ordered ONE (13:58)
[2021-09-26] MEDS ORDERED: SODIUM CHLORIDE 0.9% INJ 10 ML SYR IV PRN (15:50)
[2021-09-26] MEDS ORDERED: LACTULOSE 20 GM/30 ML SYRUP UD PO ONE (16:20)
[2021-09-26] MEDS: SODIUM CHLORIDE 0.9% INJ 10 ML SYR IV SCH (17:29)
[2021-09-26] MEDS: traZODone 50 MG TAB PO SCH (20:18)
[2021-09-26] MEDS: SENNA SYRUP 15 ML UDC PO SCH (20:18)
[2021-09-26] MEDS: QUEtiapine FUMARATE 100 MG TAB PO SCH (20:19)
[2021-09-26] MEDS: PRAZOSIN 1 MG CAP PO SCH (20:19)
[2021-09-26 22:00] LABS: HIV 1&2 SCREEN CENTAUR NEGATIVE (NEGATIVE)
[2021-09-27] VITALS (39 sets, daily range): BP systolic 95–133; BP diastolic 51–81
[2021-09-27] MEDS: dexmedeTOMidine 200 MCG in IV 1 EA IV SCH ×8 (00:05→10:12)
[2021-09-27] MEDS: MEROPENEM INJ 1 GM in IV 1 EA IV SCH ×3 (00:23→16:40)
[2021-09-27] MEDS: fentaNYL CITRATE 1,000 MCG in NS 80 ML IV SCH ×3 (00:53→13:09)
[2021-09-27] MEDS: MIDAZOLAM INJ 2MG/2ML VIAL (J2250 PER 1MG) IV PRN ×4 (01:18→15:29)
[2021-09-27] MEDS: VANCOMYCIN HCL 1,000 MG, VIAL MATE ADAPTER 1 EACH in NS 250 ML IV SCH (02:23)
[2021-09-27 05:51] LABS: ABG BASE EXCESS -0.4 (-2.0-2.0); ABG HCO3 23.7 MEQ/L (22.0-26.0); ABG O2 SATURATION 93.9 % (95.0-99.0); ABG PARTIAL PRESSURE CO2 36.8 mmHg (35.0-45.0); ABG PARTIAL PRESSURE O2 73.8 mmHg (75.0-100.0); ABG STANDARD HCO3 24.1 MEQ/L (22.0-26.0); ABG TOTAL CO2 24.8 MEQ/L (22.0-29.0); ABG pH (ARTERIAL) 7.427 UNITS (7.350-7.450)
[2021-09-27] MEDS: INSULIN LISPRO (NovoLOG) PER UNIT SC SCH ×4 (06:00→18:00)
[2021-09-27] MEDS: SODIUM CHLORIDE 0.9% INJ 10 ML SYR IV SCH ×2 (06:02→18:00)
[2021-09-27] MEDS: LEVOTHYROXINE 150MCG TABLET (0.15MG) PO SCH (06:12)
[2021-09-27 08:03] LABS: HEMATOCRIT 29.3 % (36.0-47.0); HEMOGLOBIN 9.1 g/dl (12.0-15.5); MEAN CORPUSCULAR HEMOGLOBIN 30.1 pg (27.0-33.0); MEAN CORPUSCULAR HGB CONC 31.1 g/dl (32.0-36.5); PLATELET COUNT, AUTOMATED 223 10^3/uL (150-450); RED BLOOD COUNT 3.02 10^6/uL (4.00-5.40); WHITE BLOOD COUNT 8.9 10^3/uL (4.0-10.0)
[2021-09-27] MEDS ORDERED: FUROSEMIDE 40MG/4ML VIAL (J1940) IV ONE (08:35)
[2021-09-27 08:37] LABS: ALBUMIN 2.7 GM/DL (3.2-5.2); ALT/SGPT 118 U/L (12-78); BILIRUBIN,TOTAL 0.6 MG/DL (0.2-1.0); BLOOD UREA NITROGEN 23 MG/DL (7-18); CALCIUM LEVEL 9.2 MG/DL (8.5-10.1); CARBON DIOXIDE LEVEL 28 MEQ/L (21-32); CHLORIDE LEVEL 102 MEQ/L (98-107); GLOMERULAR FILTRATION RATE > 60.0 (>60); GLUCOSE, FASTING 115 MG/DL (70-100); POTASSIUM SERUM 4.4 MEQ/L (3.5-5.1); SODIUM LEVEL 136 MEQ/L (136-145); TOTAL PROTEIN 6.5 GM/DL (6.4-8.2)
[2021-09-27] MEDS: METHADONE 10MG TAB PO SCH (08:38)
[2021-09-27] MEDS: GABAPENTIN 400MG CAP PO SCH ×3 (08:38→21:27)
[2021-09-27] MEDS: DOCUSATE SOD LIQ 100MG/10ML UDC PO SCH ×2 (08:38→21:26)
[2021-09-27] MEDS: MIRALAX *UNIT DOSE* 17GM PACKET PO SCH (08:39)
[2021-09-27] MEDS: ENOXAPARIN 40MG/0.4ML SYRINGE (J1650 PER 10MG) SC SCH (08:39)
[2021-09-27] MEDS: PANTOPRAZOLE 40MG VIAL IV SCH (08:39)
[2021-09-27] MEDS: OLANZapine 5 MG TAB PO SCH ×3 (09:00→21:26)
[2021-09-27] MEDS: CHLORHEXIDINE GLUCONATE 0.12 % 15ML UDC (PERIDEX ORAL RINSE) MT SCH ×2 (09:00→21:26)
[2021-09-27] MEDS ORDERED: methylPREDNISolone 125MG 2ML VIAL As Ordered ONE (10:34)
[2021-09-27] MEDS ORDERED: methylPREDNISolone 125MG 2ML VIAL IV STA (10:34)
[2021-09-27] MEDS ORDERED: ETOMIDATE INJ 20MG/10ML VIAL As Ordered ONE (10:55)
[2021-09-27] MEDS ORDERED: SUCCINYLCHOLINE INJ 200 MG/10 ML VIAL (J0330) As Ordered ONE (10:56)
[2021-09-27] MEDS ORDERED: PROPOFOL 1,000 MG/100 ML VIAL As Ordered ONE (11:00)
[2021-09-27] MEDS ORDERED: SUCCINYLCHOLINE INJ 200 MG/10 ML VIAL (J0330) IV STA ×2 (11:04→12:48)
[2021-09-27] MEDS ORDERED: ETOMIDATE INJ 20MG/10ML VIAL IV STA (11:04)
[2021-09-27] MEDS ORDERED: propofoL 1,000 MG in IV 1 EA IV SCH (11:05)
[2021-09-27] MEDS ORDERED: MIDAZOLAM INJ 2MG/2ML VIAL (J2250 PER 1MG) IV STA ×2 (11:15→11:22)
[2021-09-27] MEDS ORDERED: CISATRACURIUM 10MG/ML 20 ML VIAL As Ordered ONE ×2 (11:21→11:31)
[2021-09-27] MEDS: CISATRACURIUM 200 MG in NS 480 ML IV SCH ×3 (11:30→20:20)
[2021-09-27 13:14] LABS: ABG BASE EXCESS 2.5 (-2.0-2.0); ABG HCO3 27.7 MEQ/L (22.0-26.0); ABG O2 SATURATION 93.1 % (95.0-99.0); ABG PARTIAL PRESSURE CO2 45.6 mmHg (35.0-45.0); ABG PARTIAL PRESSURE O2 71.6 mmHg (75.0-100.0); ABG STANDARD HCO3 26.6 MEQ/L (22.0-26.0); ABG TOTAL CO2 29.1 MEQ/L (22.0-29.0); ABG pH (ARTERIAL) 7.401 UNITS (7.350-7.450)
[2021-09-27] MEDS: propofoL 1,000 MG in IV 1 EA IV SCH ×3 (13:39→19:21)
[2021-09-27] MEDS: VANCOMYCIN HCL 750 MG, VIAL MATE ADAPTER 1 EACH in NS 250 ML IV SCH (13:39)
[2021-09-27] MEDS: VANCOMYCIN HCL 500 MG in D5W MINI-BAG PLUS 100 ML IV SCH (15:02)
[2021-09-27] MEDS ORDERED: ETOMIDATE INJ 20MG/10ML VIAL ONE (15:06)
[2021-09-27] MEDS ORDERED: SUCCINYLCHOLINE 100 MG/5 ML SYRINGE (J0330) ONE (15:06)
[2021-09-27] MEDS: LACRILUBE (AKWA TEARS) OPHTH OINT 3.5 GM OU SCH ×2 (15:26→21:27)
[2021-09-27] MEDS: SENNA SYRUP 15 ML UDC PO SCH (21:27)
[2021-09-28] VITALS (36 sets, daily range): BP systolic 88–120; BP diastolic 49–74
[2021-09-28] MEDS: MEROPENEM INJ 1 GM in IV 1 EA IV SCH (00:30)
[2021-09-28] MEDS: fentaNYL CITRATE 1,000 MCG in NS 80 ML IV SCH ×2 (00:40→20:44)
[2021-09-28] MEDS: VANCOMYCIN HCL 750 MG, VIAL MATE ADAPTER 1 EACH in NS 250 ML IV SCH ×2 (01:19→14:31)
[2021-09-28] MEDS: propofoL 1,000 MG in IV 1 EA IV SCH ×7 (01:21→19:35)
[2021-09-28] MEDS: VANCOMYCIN HCL 500 MG in D5W MINI-BAG PLUS 100 ML IV SCH ×2 (03:40→15:18)
[2021-09-28 05:34] LABS: HEMATOCRIT 29.8 % (36.0-47.0); HEMOGLOBIN 9.4 g/dl (12.0-15.5); MEAN CORPUSCULAR HEMOGLOBIN 29.9 pg (27.0-33.0); MEAN CORPUSCULAR HGB CONC 31.5 g/dl (32.0-36.5); MEAN CORPUSCULAR VOLUME 94.9 fl (80.0-96.0); PLATELET COUNT, AUTOMATED 250 10^3/uL (150-450); RED BLOOD COUNT 3.14 10^6/uL (4.00-5.40); WHITE BLOOD COUNT 13.1 10^3/uL (4.0-10.0)
[2021-09-28] MEDS: LEVOTHYROXINE 150MCG TABLET (0.15MG) PO SCH (05:37)
[2021-09-28] MEDS: SODIUM CHLORIDE 0.9% INJ 10 ML SYR IV SCH ×2 (05:37→18:00)
[2021-09-28] MEDS: CISATRACURIUM 200 MG in NS 480 ML IV SCH (05:37)
[2021-09-28] MEDS: INSULIN LISPRO (NovoLOG) PER UNIT SC SCH ×4 (05:38→18:00)
[2021-09-28 05:46] LABS: INR 0.99; PARTIAL THROMBOPLASTIN TIME 26.7 SECONDS (25.9-37.0); PROTHROMBIN TIME 13.5 SECONDS (12.7-14.5)
[2021-09-28 06:02] LABS: ABG HCO3 25.8 MEQ/L (22.0-26.0); ABG PARTIAL PRESSURE CO2 37.2 mmHg (35.0-45.0); ABG PARTIAL PRESSURE O2 77.4 mmHg (75.0-100.0); ABG STANDARD HCO3 26.2 MEQ/L (22.0-26.0); ABG TOTAL CO2 26.9 MEQ/L (22.0-29.0); ABG pH (ARTERIAL) 7.459 UNITS (7.350-7.450)
[2021-09-28 06:33] LABS: ALBUMIN 2.9 GM/DL (3.2-5.2); ALT/SGPT 101 U/L (12-78); BILIRUBIN,TOTAL 0.6 MG/DL (0.2-1.0); BLOOD UREA NITROGEN 21 MG/DL (7-18); CALCIUM LEVEL 8.9 MG/DL (8.5-10.1); CARBON DIOXIDE LEVEL 25 MEQ/L (21-32); CHLORIDE LEVEL 106 MEQ/L (98-107); CREATININE FOR GFR 0.92 MG/DL (0.55-1.30); GLOMERULAR FILTRATION RATE > 60.0 (>60); GLUCOSE, FASTING 96 MG/DL (70-100); POTASSIUM SERUM 3.7 MEQ/L (3.5-5.1); SODIUM LEVEL 141 MEQ/L (136-145); TOTAL PROTEIN 6.9 GM/DL (6.4-8.2)
[2021-09-28] MEDS: CHLORHEXIDINE GLUCONATE 0.12 % 15ML UDC (PERIDEX ORAL RINSE) MT SCH ×2 (08:48→20:44)
[2021-09-28] MEDS: PANTOPRAZOLE 40MG VIAL IV SCH (08:48)
[2021-09-28] MEDS: ENOXAPARIN 40MG/0.4ML SYRINGE (J1650 PER 10MG) SC SCH (08:50)
[2021-09-28] MEDS: METHADONE 10MG TAB PO SCH (08:51)
[2021-09-28] MEDS: OLANZapine 5 MG TAB PO SCH ×3 (08:51→20:44)
[2021-09-28] MEDS: GABAPENTIN 400MG CAP PO SCH ×3 (08:51→20:44)
[2021-09-28] MEDS: DOCUSATE SOD LIQ 100MG/10ML UDC PO SCH ×2 (08:52→20:44)
[2021-09-28] MEDS: MIRALAX *UNIT DOSE* 17GM PACKET PO SCH (09:00)
[2021-09-28] MEDS: LACRILUBE (AKWA TEARS) OPHTH OINT 3.5 GM OU SCH ×3 (09:18→20:46)
[2021-09-28] MEDS: MIDAZOLAM INJ 2MG/2ML VIAL (J2250 PER 1MG) IV PRN ×5 (09:35→21:58)
[2021-09-28] MEDS: SENNA SYRUP 15 ML UDC PO SCH (20:44)
[2021-09-29] VITALS (35 sets, daily range): BP systolic 87–114; BP diastolic 48–72
[2021-09-29] MEDS: MIDAZOLAM INJ 2MG/2ML VIAL (J2250 PER 1MG) IV PRN ×8 (02:32→19:32)
[2021-09-29] MEDS: VANCOMYCIN HCL 500 MG in D5W MINI-BAG PLUS 100 ML IV SCH ×2 (02:32→03:59)
[2021-09-29] MEDS: VANCOMYCIN HCL 750 MG, VIAL MATE ADAPTER 1 EACH in NS 250 ML IV SCH (03:01)
[2021-09-29] MEDS: propofoL 1,000 MG in IV 1 EA IV SCH ×8 (04:00→22:20)
[2021-09-29 04:32] LABS: HEMATOCRIT 27.9 % (36.0-47.0); HEMOGLOBIN 8.7 g/dl (12.0-15.5); MEAN CORPUSCULAR HEMOGLOBIN 30.4 pg (27.0-33.0); MEAN CORPUSCULAR HGB CONC 31.2 g/dl (32.0-36.5); MEAN CORPUSCULAR VOLUME 97.6 fl (80.0-96.0); PLATELET COUNT, AUTOMATED 256 10^3/uL (150-450); RED BLOOD COUNT 2.86 10^6/uL (4.00-5.40); WHITE BLOOD COUNT 9.8 10^3/uL (4.0-10.0)
[2021-09-29] MEDS: INSULIN LISPRO (NovoLOG) PER UNIT SC SCH ×5 (05:03→23:48)
[2021-09-29] MEDS: SODIUM CHLORIDE 0.9% INJ 10 ML SYR IV SCH ×2 (05:13→18:32)
[2021-09-29] MEDS: LEVOTHYROXINE 150MCG TABLET (0.15MG) PO SCH (05:13)
[2021-09-29 05:17] LABS: ALBUMIN 2.7 GM/DL (3.2-5.2); ALT/SGPT 83 U/L (12-78); BILIRUBIN,TOTAL 0.5 MG/DL (0.2-1.0); BLOOD UREA NITROGEN 21 MG/DL (7-18); CALCIUM LEVEL 8.8 MG/DL (8.5-10.1); CARBON DIOXIDE LEVEL 27 MEQ/L (21-32); CHLORIDE LEVEL 107 MEQ/L (98-107); CREATININE FOR GFR 0.96 MG/DL (0.55-1.30); GLOMERULAR FILTRATION RATE > 60.0 (>60); GLUCOSE, FASTING 108 MG/DL (70-100); POTASSIUM SERUM 3.7 MEQ/L (3.5-5.1); SODIUM LEVEL 141 MEQ/L (136-145); TOTAL PROTEIN 6.3 GM/DL (6.4-8.2)
[2021-09-29 07:51] LABS: ABG BASE EXCESS 3.2 (-2.0-2.0); ABG O2 SATURATION 94.8 % (95.0-99.0); ABG PARTIAL PRESSURE CO2 38.1 mmHg (35.0-45.0); ABG PARTIAL PRESSURE O2 75.6 mmHg (75.0-100.0); ABG STANDARD HCO3 27.3 MEQ/L (22.0-26.0); ABG TOTAL CO2 28.2 MEQ/L (22.0-29.0); ABG pH (ARTERIAL) 7.469 UNITS (7.350-7.450)
[2021-09-29] MEDS ORDERED: MIDAZOLAM INJ 2MG/2ML VIAL (J2250 PER 1MG) As Ordered ONE (08:36)
[2021-09-29] MEDS: LACRILUBE (AKWA TEARS) OPHTH OINT 3.5 GM OU SCH ×3 (09:00→20:21)
[2021-09-29] MEDS: MIRALAX *UNIT DOSE* 17GM PACKET PO SCH (09:00)
[2021-09-29] MEDS: GABAPENTIN 400MG CAP PO SCH ×3 (09:43→20:23)
[2021-09-29] MEDS: CHLORHEXIDINE GLUCONATE 0.12 % 15ML UDC (PERIDEX ORAL RINSE) MT SCH ×2 (09:44→20:21)
[2021-09-29] MEDS: PANTOPRAZOLE 40MG VIAL IV SCH (09:44)
[2021-09-29] MEDS: ENOXAPARIN 40MG/0.4ML SYRINGE (J1650 PER 10MG) SC SCH (09:44)
[2021-09-29] MEDS: DOCUSATE SOD LIQ 100MG/10ML UDC PO SCH ×2 (09:44→20:21)
[2021-09-29] MEDS: METHADONE 10MG TAB PO SCH (09:45)
[2021-09-29] MEDS: OLANZapine 5 MG TAB PO SCH ×3 (09:45→20:21)
[2021-09-29] MEDS: fentaNYL CITRATE 1,000 MCG in NS 80 ML IV SCH (12:56)
[2021-09-29] MEDS: VANCOMYCIN HCL 1,000 MG, VIAL MATE ADAPTER 1 EACH in NS 250 ML IV SCH (19:34)
[2021-09-29] MEDS: SENNA SYRUP 15 ML UDC PO SCH (20:21)
[2021-09-30] VITALS (32 sets, daily range): BP systolic 95–127; BP diastolic 44–66
[2021-09-30] MEDS: MIDAZOLAM INJ 2MG/2ML VIAL (J2250 PER 1MG) IV PRN ×12 (00:42→22:47)
[2021-09-30] MEDS: propofoL 1,000 MG in IV 1 EA IV SCH ×8 (02:47→20:02)
[2021-09-30] MEDS: LEVOTHYROXINE 150MCG TABLET (0.15MG) PO SCH (05:04)
[2021-09-30] MEDS: SODIUM CHLORIDE 0.9% INJ 10 ML SYR IV SCH ×2 (05:04→17:24)
[2021-09-30 05:05] LABS: HEMATOCRIT 26.6 % (36.0-47.0); HEMOGLOBIN 8.1 g/dl (12.0-15.5); MEAN CORPUSCULAR HGB CONC 30.5 g/dl (32.0-36.5); MEAN CORPUSCULAR VOLUME 98.5 fl (80.0-96.0); PLATELET COUNT, AUTOMATED 256 10^3/uL (150-450); WHITE BLOOD COUNT 7.6 10^3/uL (4.0-10.0)
[2021-09-30] MEDS: INSULIN LISPRO (NovoLOG) PER UNIT SC SCH ×3 (05:05→18:04)
[2021-09-30 06:01] LABS: ALBUMIN 2.6 GM/DL (3.2-5.2); ALT/SGPT 72 U/L (12-78); BILIRUBIN,TOTAL 0.6 MG/DL (0.2-1.0); BLOOD UREA NITROGEN 20 MG/DL (7-18); CALCIUM LEVEL 8.9 MG/DL (8.5-10.1); CARBON DIOXIDE LEVEL 27 MEQ/L (21-32); CHLORIDE LEVEL 108 MEQ/L (98-107); CREATININE FOR GFR 0.94 MG/DL (0.55-1.30); GLOMERULAR FILTRATION RATE > 60.0 (>60); GLUCOSE, FASTING 117 MG/DL (70-100); POTASSIUM SERUM 4.3 MEQ/L (3.5-5.1); SODIUM LEVEL 142 MEQ/L (136-145); TOTAL PROTEIN 6.2 GM/DL (6.4-8.2)
[2021-09-30 06:02] LABS: ABG BASE EXCESS 0.8 (-2.0-2.0); ABG HCO3 26.1 MEQ/L (22.0-26.0); ABG O2 SATURATION 96.9 % (95.0-99.0); ABG PARTIAL PRESSURE CO2 45.2 mmHg (35.0-45.0); ABG PARTIAL PRESSURE O2 97.7 mmHg (75.0-100.0); ABG STANDARD HCO3 25.2 MEQ/L (22.0-26.0); ABG TOTAL CO2 27.5 MEQ/L (22.0-29.0)
[2021-09-30] MEDS: CHLORHEXIDINE GLUCONATE 0.12 % 15ML UDC (PERIDEX ORAL RINSE) MT SCH ×2 (08:15→20:28)
[2021-09-30] MEDS: VANCOMYCIN HCL 1,000 MG, VIAL MATE ADAPTER 1 EACH in NS 250 ML IV SCH ×2 (08:15→20:27)
[2021-09-30] MEDS: PANTOPRAZOLE 40MG VIAL IV SCH (08:15)
[2021-09-30] MEDS: ENOXAPARIN 40MG/0.4ML SYRINGE (J1650 PER 10MG) SC SCH (08:16)
[2021-09-30] MEDS: METHADONE 10MG TAB PO SCH (08:16)
[2021-09-30] MEDS: GABAPENTIN 400MG CAP PO SCH ×3 (08:16→20:27)
[2021-09-30] MEDS: MIRALAX *UNIT DOSE* 17GM PACKET PO SCH (08:16)
[2021-09-30] MEDS: OLANZapine 5 MG TAB PO SCH ×3 (08:34→20:27)
[2021-09-30] MEDS: LACRILUBE (AKWA TEARS) OPHTH OINT 3.5 GM OU SCH ×3 (08:34→20:28)
[2021-09-30] MEDS: fentaNYL CITRATE 1,000 MCG in NS 80 ML IV SCH (08:35)
[2021-09-30] MEDS: LACTULOSE 20 GM/30 ML SYRUP UD PO SCH ×3 (08:59→22:00)
[2021-09-30] MEDS: DOCUSATE SOD LIQ 100MG/10ML UDC PO SCH ×2 (08:59→20:28)
[2021-09-30] MEDS ORDERED: methylPREDNISolone 125MG 2ML VIAL IV ONE (09:00)
[2021-09-30] MEDS: SODIUM CHLORIDE HYPERTONIC 3% 15ML NEB SOL INH SCH ×3 (11:48→20:44)
[2021-09-30] MEDS: ALBUTEROL SULFATE 2.5 MG/0.5 ML INH NEB SOLN NEB SCH ×3 (11:48→20:45)
[2021-09-30] MEDS: methylPREDNISolone 40MG 1ML VIAL IV SCH ×3 (14:12→23:23)
[2021-09-30] MEDS: SENNA SYRUP 15 ML UDC PO SCH (20:28)
[2021-10-01] VITALS (32 sets, daily range): BP systolic 108–188; BP diastolic 51–86
[2021-10-01] MEDS: propofoL 1,000 MG in IV 1 EA IV SCH ×11 (00:04→21:59)
[2021-10-01] MEDS: SODIUM CHLORIDE HYPERTONIC 3% 15ML NEB SOL INH SCH ×6 (00:29→19:34)
[2021-10-01] MEDS: ALBUTEROL SULFATE 2.5 MG/0.5 ML INH NEB SOLN NEB SCH ×6 (00:29→19:34)
[2021-10-01] MEDS: MIDAZOLAM INJ 2MG/2ML VIAL (J2250 PER 1MG) IV PRN ×8 (01:30→11:31)
[2021-10-01] MEDS: methylPREDNISolone 40MG 1ML VIAL IV SCH (02:02)
[2021-10-01] MEDS: LACTULOSE 20 GM/30 ML SYRUP UD PO SCH (04:17)
[2021-10-01] MEDS: SODIUM CHLORIDE 0.9% INJ 10 ML SYR IV SCH ×2 (04:17→18:00)
[2021-10-01 04:44] LABS: HEMATOCRIT 26.9 % (36.0-47.0); HEMOGLOBIN 8.3 g/dl (12.0-15.5); MEAN CORPUSCULAR HEMOGLOBIN 30.3 pg (27.0-33.0); MEAN CORPUSCULAR HGB CONC 30.9 g/dl (32.0-36.5); MEAN CORPUSCULAR VOLUME 98.2 fl (80.0-96.0); PLATELET COUNT, AUTOMATED 276 10^3/uL (150-450); RED BLOOD COUNT 2.74 10^6/uL (4.00-5.40); WHITE BLOOD COUNT 10.3 10^3/uL (4.0-10.0)
[2021-10-01] MEDS: fentaNYL CITRATE 1,000 MCG in NS 80 ML IV SCH (04:49)
[2021-10-01 05:09] LABS: ALT/SGPT 86 U/L (12-78); BILIRUBIN,TOTAL 0.4 MG/DL (0.2-1.0); BLOOD UREA NITROGEN 18 MG/DL (7-18); CALCIUM LEVEL 8.6 MG/DL (8.5-10.1); CARBON DIOXIDE LEVEL 30 MEQ/L (21-32); CHLORIDE LEVEL 105 MEQ/L (98-107); CREATININE FOR GFR 0.94 MG/DL (0.55-1.30); GLOMERULAR FILTRATION RATE > 60.0 (>60); GLUCOSE, FASTING 199 MG/DL (70-100); SODIUM LEVEL 139 MEQ/L (136-145); TOTAL PROTEIN 6.9 GM/DL (6.4-8.2); TRIGLYCERIDES LEVEL 260 MG/DL (<150)
[2021-10-01] MEDS: LEVOTHYROXINE 150MCG TABLET (0.15MG) PO SCH (05:09)
[2021-10-01] MEDS: INSULIN LISPRO (NovoLOG) PER UNIT SC SCH ×5 (05:24→23:56)
[2021-10-01 05:46] LABS: ABG HCO3 27.4 MEQ/L (22.0-26.0); ABG O2 SATURATION 96.9 % (95.0-99.0); ABG PARTIAL PRESSURE CO2 46.9 mmHg (35.0-45.0); ABG PARTIAL PRESSURE O2 97.5 mmHg (75.0-100.0); ABG STANDARD HCO3 26.3 MEQ/L (22.0-26.0); ABG TOTAL CO2 28.9 MEQ/L (22.0-29.0); ABG pH (ARTERIAL) 7.385 UNITS (7.350-7.450)
[2021-10-01] MEDS: VANCOMYCIN HCL 1,000 MG, VIAL MATE ADAPTER 1 EACH in NS 250 ML IV SCH ×2 (07:52→19:11)
[2021-10-01] MEDS ORDERED: FUROSEMIDE 40MG/4ML VIAL (J1940) IV ONE (09:00)
[2021-10-01] MEDS: CHLORHEXIDINE GLUCONATE 0.12 % 15ML UDC (PERIDEX ORAL RINSE) MT SCH ×2 (10:14→20:48)
[2021-10-01] MEDS: DOCUSATE SOD LIQ 100MG/10ML UDC PO SCH ×2 (10:14→20:49)
[2021-10-01] MEDS: ENOXAPARIN 40MG/0.4ML SYRINGE (J1650 PER 10MG) SC SCH (10:15)
[2021-10-01] MEDS: GABAPENTIN 400MG CAP PO SCH ×3 (10:16→20:49)
[2021-10-01] MEDS: MIRALAX *UNIT DOSE* 17GM PACKET PO SCH (10:16)
[2021-10-01] MEDS: METHADONE 10MG TAB PO SCH (10:17)
[2021-10-01] MEDS: LACRILUBE (AKWA TEARS) OPHTH OINT 3.5 GM OU SCH ×3 (10:17→20:50)
[2021-10-01] MEDS: PANTOPRAZOLE 40MG VIAL IV SCH (10:17)
[2021-10-01] MEDS: OLANZapine 5 MG TAB PO SCH ×3 (10:17→20:49)
[2021-10-01] MEDS: MIDAZOLAM HCL 100 MG in D5W 80 ML IV SCH (10:23)
[2021-10-01] MEDS ORDERED: CISATRACURIUM 10MG/ML 20 ML VIAL IV ONE (11:20)
[2021-10-01] MEDS: SENNA SYRUP 15 ML UDC PO SCH (20:48)
[2021-10-02] VITALS (18 sets, daily range): BP systolic 104–125; BP diastolic 51–61
[2021-10-02] MEDS: propofoL 1,000 MG in IV 1 EA IV SCH ×10 (00:10→22:20)
[2021-10-02] MEDS: ALBUTEROL SULFATE 2.5 MG/0.5 ML INH NEB SOLN NEB SCH ×6 (00:18→19:41)
[2021-10-02] MEDS: SODIUM CHLORIDE HYPERTONIC 3% 15ML NEB SOL INH SCH ×6 (00:20→19:41)
[2021-10-02] MEDS: fentaNYL CITRATE 1,000 MCG in NS 80 ML IV SCH ×2 (01:03→21:15)
[2021-10-02] MEDS: MIDAZOLAM INJ 2MG/2ML VIAL (J2250 PER 1MG) IV PRN ×3 (05:16→22:26)
[2021-10-02] MEDS: LEVOTHYROXINE 150MCG TABLET (0.15MG) PO SCH (05:17)
[2021-10-02] MEDS: SODIUM CHLORIDE 0.9% INJ 10 ML SYR IV SCH ×2 (05:50→17:38)
[2021-10-02 05:59] LABS: HEMATOCRIT 27.1 % (36.0-47.0); HEMOGLOBIN 8.2 g/dl (12.0-15.5); MEAN CORPUSCULAR HGB CONC 30.3 g/dl (32.0-36.5); MEAN CORPUSCULAR VOLUME 99.3 fl (80.0-96.0); PLATELET COUNT, AUTOMATED 249 10^3/uL (150-450); RED BLOOD COUNT 2.73 10^6/uL (4.00-5.40); WHITE BLOOD COUNT 8.4 10^3/uL (4.0-10.0)
[2021-10-02] MEDS: INSULIN LISPRO (NovoLOG) PER UNIT SC SCH ×3 (06:00→17:45)
[2021-10-02 06:15] LABS: ABG HCO3 28.2 MEQ/L (22.0-26.0); ABG O2 SATURATION 93.5 % (95.0-99.0); ABG PARTIAL PRESSURE CO2 46.5 mmHg (35.0-45.0); ABG PARTIAL PRESSURE O2 74.2 mmHg (75.0-100.0); ABG STANDARD HCO3 27.1 MEQ/L (22.0-26.0); ABG TOTAL CO2 29.6 MEQ/L (22.0-29.0); ABG pH (ARTERIAL) 7.401 UNITS (7.350-7.450)
[2021-10-02 06:31] LABS: ALT/SGPT 80 U/L (12-78); BILIRUBIN,TOTAL 0.5 MG/DL (0.2-1.0); BLOOD UREA NITROGEN 26 MG/DL (7-18); CARBON DIOXIDE LEVEL 29 MEQ/L (21-32); CHLORIDE LEVEL 105 MEQ/L (98-107); CREATININE FOR GFR 1.02 MG/DL (0.55-1.30); GLOMERULAR FILTRATION RATE > 60.0 (>60); GLUCOSE, FASTING 135 MG/DL (70-100); POTASSIUM SERUM 4.5 MEQ/L (3.5-5.1); SODIUM LEVEL 141 MEQ/L (136-145); TOTAL PROTEIN 6.6 GM/DL (6.4-8.2)
[2021-10-02] MEDS: MIRALAX *UNIT DOSE* 17GM PACKET PO SCH (08:09)
[2021-10-02] MEDS: CHLORHEXIDINE GLUCONATE 0.12 % 15ML UDC (PERIDEX ORAL RINSE) MT SCH ×2 (08:09→22:20)
[2021-10-02] MEDS: PANTOPRAZOLE 40MG VIAL IV SCH (08:09)
[2021-10-02] MEDS: ENOXAPARIN 40MG/0.4ML SYRINGE (J1650 PER 10MG) SC SCH (08:09)
[2021-10-02] MEDS: VANCOMYCIN HCL 1,000 MG, VIAL MATE ADAPTER 1 EACH in NS 250 ML IV SCH ×2 (08:09→20:14)
[2021-10-02] MEDS: DOCUSATE SOD LIQ 100MG/10ML UDC PO SCH ×2 (08:09→22:19)
[2021-10-02] MEDS: GABAPENTIN 400MG CAP PO SCH ×3 (08:10→22:19)
[2021-10-02] MEDS: OLANZapine 5 MG TAB PO SCH ×3 (08:10→22:19)
[2021-10-02] MEDS: METHADONE 10MG TAB PO SCH (08:10)
[2021-10-02] MEDS: LACRILUBE (AKWA TEARS) OPHTH OINT 3.5 GM OU SCH ×3 (08:11→22:20)
[2021-10-02] MEDS: MIDAZOLAM HCL 100 MG in D5W 80 ML IV SCH (14:00)
[2021-10-02] MEDS: SENNA SYRUP 15 ML UDC PO SCH (22:19)
[2021-10-03] VITALS (33 sets, daily range): BP systolic 76–145; BP diastolic 45–93
[2021-10-03] MEDS: propofoL 1,000 MG in IV 1 EA IV SCH ×3 (00:24→05:21)
[2021-10-03] MEDS: SODIUM CHLORIDE HYPERTONIC 3% 15ML NEB SOL INH SCH ×6 (00:39→19:33)
[2021-10-03] MEDS: ALBUTEROL SULFATE 2.5 MG/0.5 ML INH NEB SOLN NEB SCH ×6 (00:39→19:34)
[2021-10-03] MEDS: MIDAZOLAM INJ 2MG/2ML VIAL (J2250 PER 1MG) IV PRN (02:22)
[2021-10-03] MEDS: INSULIN LISPRO (NovoLOG) PER UNIT SC SCH ×5 (05:10→23:48)
[2021-10-03] MEDS: LEVOTHYROXINE 150MCG TABLET (0.15MG) PO SCH (05:18)
[2021-10-03] MEDS: SODIUM CHLORIDE 0.9% INJ 10 ML SYR IV SCH ×2 (05:31→17:38)
[2021-10-03 05:57] LABS: HEMATOCRIT 26.1 % (36.0-47.0); HEMOGLOBIN 7.8 g/dl (12.0-15.5); MEAN CORPUSCULAR HEMOGLOBIN 29.9 pg (27.0-33.0); MEAN CORPUSCULAR HGB CONC 29.9 g/dl (32.0-36.5); PLATELET COUNT, AUTOMATED 235 10^3/uL (150-450); RED BLOOD COUNT 2.61 10^6/uL (4.00-5.40); WHITE BLOOD COUNT 6.1 10^3/uL (4.0-10.0)
[2021-10-03 06:12] LABS: ABG BASE EXCESS 0.8 (-2.0-2.0); ABG O2 SATURATION 96.9 % (95.0-99.0); ABG PARTIAL PRESSURE CO2 44.5 mmHg (35.0-45.0); ABG PARTIAL PRESSURE O2 99.6 mmHg (75.0-100.0); ABG STANDARD HCO3 25.2 MEQ/L (22.0-26.0); ABG TOTAL CO2 27.4 MEQ/L (22.0-29.0); ABG pH (ARTERIAL) 7.385 UNITS (7.350-7.450)
[2021-10-03 06:24] LABS: ALBUMIN 2.9 GM/DL (3.2-5.2); ALT/SGPT 68 U/L (12-78); BILIRUBIN,TOTAL 0.5 MG/DL (0.2-1.0); BLOOD UREA NITROGEN 28 MG/DL (7-18); CALCIUM LEVEL 8.8 MG/DL (8.5-10.1); CARBON DIOXIDE LEVEL 28 MEQ/L (21-32); CHLORIDE LEVEL 106 MEQ/L (98-107); CREATININE FOR GFR 1.05 MG/DL (0.55-1.30); GLOMERULAR FILTRATION RATE > 60.0 (>60); GLUCOSE, FASTING 135 MG/DL (70-100); SODIUM LEVEL 141 MEQ/L (136-145); TOTAL PROTEIN 6.2 GM/DL (6.4-8.2)
[2021-10-03] MEDS: CHLORHEXIDINE GLUCONATE 0.12 % 15ML UDC (PERIDEX ORAL RINSE) MT SCH (08:33)
[2021-10-03] MEDS: DOCUSATE SOD LIQ 100MG/10ML UDC PO SCH ×2 (08:33→20:05)
[2021-10-03] MEDS: OLANZapine 5 MG TAB PO SCH (08:34)
[2021-10-03] MEDS: PANTOPRAZOLE 40MG VIAL IV SCH (08:34)
[2021-10-03] MEDS: ENOXAPARIN 40MG/0.4ML SYRINGE (J1650 PER 10MG) SC SCH (08:34)
[2021-10-03] MEDS: METHADONE 10MG TAB PO SCH (08:35)
[2021-10-03] MEDS: GABAPENTIN 400MG CAP PO SCH ×3 (08:35→20:05)
[2021-10-03] MEDS ORDERED: RACEPINEPHrine 2.25 % UD INHA INH PRN (08:50)
[2021-10-03] MEDS ORDERED: dexameTHASONE 20MG/5ML VIAL (J1100 PER 1MG) IV PRN (08:50)
[2021-10-03] MEDS: MIRALAX *UNIT DOSE* 17GM PACKET PO SCH (09:00)
[2021-10-03] MEDS: LACRILUBE (AKWA TEARS) OPHTH OINT 3.5 GM OU SCH (09:00)
[2021-10-03] MEDS ORDERED: dexmedeTOMidine 200 MCG in IV 1 EA IV SCH (10:00)
[2021-10-03 10:16] LABS: ABG O2 SATURATION 97.2 % (95.0-99.0); ABG PARTIAL PRESSURE CO2 44.9 mmHg (35.0-45.0); ABG PARTIAL PRESSURE O2 95.5 mmHg (75.0-100.0); ABG STANDARD HCO3 27.1 MEQ/L (22.0-26.0); ABG TOTAL CO2 29.3 MEQ/L (22.0-29.0); ABG pH (ARTERIAL) 7.412 UNITS (7.350-7.450)
[2021-10-03] MEDS ORDERED: NOREPINEPHRINE 8MG IN 500ML DEXTROSE 5% BAG As Ordered ONE (10:19)
[2021-10-03] MEDS ORDERED: HYDROMORPHONE HCL 0.5 MG/ 0.5 ML SYRINGE (J1170 PER 1) IV PRN (11:25)
[2021-10-03] MEDS: ACETYLCYSTEINE 20% 4 ML VIAL (200MG/ML) INH SCH ×2 (13:43→19:33)
[2021-10-03] MEDS ORDERED: NEOSPORIN OINT 0.9 GM PKT TOP ONE (14:30)
[2021-10-03] MEDS: OLANZapine ORAL DISINTEGRATING TAB 5MG PO SCH ×2 (15:40→20:05)
[2021-10-03] MEDS: dexameTHASONE 4 MG/ML 1ML VIAL (J1100 PER 1MG) IV SCH ×2 (17:38→23:48)
[2021-10-03] MEDS: SENNA SYRUP 15 ML UDC PO SCH (20:05)
[2021-10-03] MEDS: QUEtiapine FUMARATE 50MG TAB PO SCH (20:05)
[2021-10-03] MEDS ORDERED: QUEtiapine FUMARATE 50MG TAB PO SCH (21:00)
[2021-10-04] VITALS (17 sets, daily range): BP systolic 127–174; BP diastolic 73–104
[2021-10-04] MEDS: ALBUTEROL SULFATE 2.5 MG/0.5 ML INH NEB SOLN NEB SCH ×2 (01:39→07:15)
[2021-10-04] MEDS: ACETYLCYSTEINE 20% 4 ML VIAL (200MG/ML) INH SCH ×2 (01:39→07:15)
[2021-10-04] MEDS: SODIUM CHLORIDE HYPERTONIC 3% 15ML NEB SOL INH SCH ×4 (01:39→11:33)
[2021-10-04] MEDS: LEVOTHYROXINE 150MCG TABLET (0.15MG) PO SCH (05:06)
[2021-10-04] MEDS: dexameTHASONE 4 MG/ML 1ML VIAL (J1100 PER 1MG) IV SCH ×2 (05:37→11:11)
[2021-10-04] MEDS: SODIUM CHLORIDE 0.9% INJ 10 ML SYR IV SCH ×2 (05:38→17:46)
[2021-10-04 05:47] LABS: HEMATOCRIT 29.7 % (36.0-47.0); MEAN CORPUSCULAR HEMOGLOBIN 29.4 pg (27.0-33.0); MEAN CORPUSCULAR HGB CONC 30.3 g/dl (32.0-36.5); MEAN CORPUSCULAR VOLUME 97.1 fl (80.0-96.0); PLATELET COUNT, AUTOMATED 228 10^3/uL (150-450); RED BLOOD COUNT 3.06 10^6/uL (4.00-5.40)
[2021-10-04] MEDS: INSULIN LISPRO (NovoLOG) PER UNIT SC SCH ×3 (06:00→17:50)
[2021-10-04 06:20] LABS: ALBUMIN 3.4 GM/DL (3.2-5.2); ALT/SGPT 70 U/L (12-78); BILIRUBIN,TOTAL 0.6 MG/DL (0.2-1.0); BLOOD UREA NITROGEN 20 MG/DL (7-18); CALCIUM LEVEL 9.1 MG/DL (8.5-10.1); CARBON DIOXIDE LEVEL 32 MEQ/L (21-32); CHLORIDE LEVEL 108 MEQ/L (98-107); CREATININE FOR GFR 0.89 MG/DL (0.55-1.30); GLOMERULAR FILTRATION RATE > 60.0 (>60); GLUCOSE, FASTING 130 MG/DL (70-100); MAGNESIUM LEVEL 2.6 MG/DL (1.8-2.4); PHOSPHORUS LEVEL 3.7 MG/DL (2.5-4.9); POTASSIUM SERUM 4.3 MEQ/L (3.5-5.1); SODIUM LEVEL 144 MEQ/L (136-145); TOTAL PROTEIN 7.1 GM/DL (6.4-8.2)
[2021-10-04] MEDS: GABAPENTIN 400MG CAP PO SCH ×4 (09:00→20:46)
[2021-10-04] MEDS: DOCUSATE SOD LIQ 100MG/10ML UDC PO SCH (09:00)
[2021-10-04] MEDS: MIRALAX *UNIT DOSE* 17GM PACKET PO SCH (09:00)
[2021-10-04] MEDS: PANTOPRAZOLE 40MG VIAL IV SCH (09:46)
[2021-10-04] MEDS: ENOXAPARIN 40MG/0.4ML SYRINGE (J1650 PER 10MG) SC SCH ×2 (09:47→20:37)
[2021-10-04] MEDS: OLANZapine ORAL DISINTEGRATING TAB 5MG PO SCH ×3 (11:11→20:46)
[2021-10-04] MEDS ORDERED: VARIBAR PUDDING 40% w/v 230ML TUBE As Ordered ONE (12:33)
[2021-10-04] MEDS ORDERED: E-Z-PAQUE 96% w/w SUSP 176GM BTL As Ordered ONE (12:34)
[2021-10-04] MEDS ORDERED: VARIBAR NECTAR 40% w/v 240ML SUSP BTL As Ordered ONE (12:34)
[2021-10-04] MEDS: METHADONE 10MG TAB PO SCH (15:22)
[2021-10-04] MEDS: SENNA 8.6 MG TAB (SENOKOT) PO SCH (20:37)
[2021-10-04] MEDS: QUEtiapine FUMARATE 50MG TAB PO SCH (20:46)
[2021-10-05] VITALS (21 sets, daily range): BP systolic 105–133; BP diastolic 58–83; O2SAT 90–94
[2021-10-05] MEDS: SODIUM CHLORIDE 0.9% INJ 10 ML SYR IV SCH ×2 (05:13→17:25)
[2021-10-05] MEDS: LEVOTHYROXINE 150MCG TABLET (0.15MG) PO SCH (05:28)
[2021-10-05] MEDS: INSULIN LISPRO (NovoLOG) PER UNIT SC SCH ×5 (05:32→23:23)
[2021-10-05] MEDS: MIRALAX *UNIT DOSE* 17GM PACKET PO SCH (09:00)
[2021-10-05] MEDS: GABAPENTIN 400MG CAP PO SCH ×3 (09:04→23:14)
[2021-10-05] MEDS: OLANZapine ORAL DISINTEGRATING TAB 5MG PO SCH ×3 (09:04→23:14)
[2021-10-05] MEDS: ENOXAPARIN 40MG/0.4ML SYRINGE (J1650 PER 10MG) SC SCH ×2 (09:04→23:15)
[2021-10-05] MEDS: METHADONE 10MG TAB PO SCH (09:05)
[2021-10-05] MEDS ORDERED: VANCOMYCIN HCL 1,000 MG, VIAL MATE ADAPTER 1 EACH in NS 250 ML IV SCH (10:25)
[2021-10-05] MEDS: BACTRIM 160MG/800MG DS TAB PO SCH ×2 (11:37→23:15)
[2021-10-05] MEDS: QUEtiapine FUMARATE 50MG TAB PO SCH (21:00)
[2021-10-05] MEDS: SENNA 8.6 MG TAB (SENOKOT) PO SCH (23:14)
[2021-10-06] VITALS (18 sets, daily range): BP systolic 119–138; BP diastolic 70–84; O2SAT 89–94
[2021-10-06] MEDS: INSULIN LISPRO (NovoLOG) PER UNIT SC SCH ×3 (06:00→17:15)
[2021-10-06] MEDS: SODIUM CHLORIDE 0.9% INJ 10 ML SYR IV SCH ×2 (06:22→17:15)
[2021-10-06] MEDS: LEVOTHYROXINE 150MCG TABLET (0.15MG) PO SCH (06:31)
[2021-10-06 06:48] LABS: HEMATOCRIT 31.1 % (36.0-47.0); HEMOGLOBIN 9.5 g/dl (12.0-15.5); MEAN CORPUSCULAR HEMOGLOBIN 29.6 pg (27.0-33.0); MEAN CORPUSCULAR HGB CONC 30.5 g/dl (32.0-36.5); MEAN CORPUSCULAR VOLUME 96.9 fl (80.0-96.0); PLATELET COUNT, AUTOMATED 172 10^3/uL (150-450); RED BLOOD COUNT 3.21 10^6/uL (4.00-5.40); WHITE BLOOD COUNT 4.9 10^3/uL (4.0-10.0)
[2021-10-06 07:11] LABS: ALBUMIN 3.4 GM/DL (3.2-5.2); BILIRUBIN,TOTAL 0.7 MG/DL (0.2-1.0); CALCIUM LEVEL 9.2 MG/DL (8.5-10.1); CREATININE FOR GFR 1.29 MG/DL (0.55-1.30); POTASSIUM SERUM 3.6 MEQ/L (3.5-5.1); TOTAL PROTEIN 7.3 GM/DL (6.4-8.2)
[2021-10-06] MEDS: MIRALAX *UNIT DOSE* 17GM PACKET PO SCH (09:00)
[2021-10-06] MEDS: GABAPENTIN 400MG CAP PO SCH ×3 (09:19→21:36)
[2021-10-06] MEDS: OLANZapine ORAL DISINTEGRATING TAB 5MG PO SCH ×3 (09:19→21:37)
[2021-10-06] MEDS: ENOXAPARIN 40MG/0.4ML SYRINGE (J1650 PER 10MG) SC SCH ×2 (09:20→21:36)
[2021-10-06] MEDS: BACTRIM 160MG/800MG DS TAB PO SCH ×2 (09:20→21:37)
[2021-10-06] MEDS: METHADONE 10MG TAB PO SCH (09:20)
[2021-10-06] MEDS: SENNA 8.6 MG TAB (SENOKOT) PO SCH (21:00)
[2021-10-06] MEDS: QUEtiapine FUMARATE 50MG TAB PO SCH (21:36)
[2021-10-07] VITALS (8 sets, daily range): BP systolic 131–142; BP diastolic 68–96; O2SAT 92–94
[2021-10-07 05:30] LABS: HEMATOCRIT 30.6 % (36.0-47.0); HEMOGLOBIN 9.4 g/dl (12.0-15.5); MEAN CORPUSCULAR HEMOGLOBIN 28.9 pg (27.0-33.0); MEAN CORPUSCULAR HGB CONC 30.7 g/dl (32.0-36.5); MEAN CORPUSCULAR VOLUME 94.2 fl (80.0-96.0); PLATELET COUNT, AUTOMATED 151 10^3/uL (150-450); RED BLOOD COUNT 3.25 10^6/uL (4.00-5.40); WHITE BLOOD COUNT 4.3 10^3/uL (4.0-10.0)
[2021-10-07] MEDS: LEVOTHYROXINE 150MCG TABLET (0.15MG) PO SCH (05:37)
[2021-10-07] MEDS: SODIUM CHLORIDE 0.9% INJ 10 ML SYR IV SCH ×2 (05:37→15:39)
[2021-10-07 05:51] LABS: HEMOGLOBIN A1c 5.1 %
[2021-10-07 05:58] LABS: ALBUMIN 3.3 GM/DL (3.2-5.2); BILIRUBIN,TOTAL 1.2 MG/DL (0.2-1.0); CREATININE FOR GFR 1.43 MG/DL (0.55-1.30); GLOMERULAR FILTRATION RATE 43.5 (>60); POTASSIUM SERUM 3.4 MEQ/L (3.5-5.1)
[2021-10-07] MEDS: ENOXAPARIN 40MG/0.4ML SYRINGE (J1650 PER 10MG) SC SCH ×2 (08:33→21:31)
[2021-10-07] MEDS: KCL 20MEQ IN 0.45NS 1000ML 1,000 ML IV SCH ×2 (08:33→15:38)
[2021-10-07] MEDS: MIRALAX *UNIT DOSE* 17GM PACKET PO SCH (08:34)
[2021-10-07] MEDS: METHADONE 10MG TAB PO SCH (08:34)
[2021-10-07] MEDS: OLANZapine ORAL DISINTEGRATING TAB 5MG PO SCH ×3 (08:34→22:01)
[2021-10-07] MEDS: GABAPENTIN 400MG CAP PO SCH ×3 (08:34→22:01)
[2021-10-07] MEDS: SENNA 8.6 MG TAB (SENOKOT) PO SCH (21:00)
[2021-10-07] MEDS: QUEtiapine FUMARATE 50MG TAB PO SCH (22:00)
[2021-10-08] VITALS (8 sets, daily range): BP systolic 136–138; BP diastolic 70–78; O2SAT 94–98
[2021-10-08] MEDS: KCL 20MEQ IN 0.45NS 1000ML 1,000 ML IV SCH ×2 (03:49→13:26)
[2021-10-08] MEDS: SODIUM CHLORIDE 0.9% INJ 10 ML SYR IV SCH ×2 (05:12→18:14)
[2021-10-08 05:29] LABS: HEMATOCRIT 27.3 % (36.0-47.0); HEMOGLOBIN 8.5 g/dl (12.0-15.5); MEAN CORPUSCULAR HEMOGLOBIN 29.4 pg (27.0-33.0); MEAN CORPUSCULAR HGB CONC 31.1 g/dl (32.0-36.5); MEAN CORPUSCULAR VOLUME 94.5 fl (80.0-96.0); PLATELET COUNT, AUTOMATED 105 10^3/uL (150-450); RED BLOOD COUNT 2.89 10^6/uL (4.00-5.40); WHITE BLOOD COUNT 2.7 10^3/uL (4.0-10.0)
[2021-10-08 06:02] LABS: ALT/SGPT 184 U/L (12-78); BILIRUBIN,TOTAL 1.3 MG/DL (0.2-1.0); BLOOD UREA NITROGEN 13 MG/DL (7-18); CALCIUM LEVEL 8.3 MG/DL (8.5-10.1); CARBON DIOXIDE LEVEL 29 MEQ/L (21-32); CHLORIDE LEVEL 106 MEQ/L (98-107); CREATININE FOR GFR 1.04 MG/DL (0.55-1.30); GLOMERULAR FILTRATION RATE > 60.0 (>60); GLUCOSE, FASTING 100 MG/DL (70-100); POTASSIUM SERUM 3.7 MEQ/L (3.5-5.1); SODIUM LEVEL 140 MEQ/L (136-145); TOTAL PROTEIN 6.1 GM/DL (6.4-8.2)
[2021-10-08] MEDS: LEVOTHYROXINE 150MCG TABLET (0.15MG) PO SCH (06:22)
[2021-10-08] MEDS: GABAPENTIN 400MG CAP PO SCH ×3 (08:17→20:09)
[2021-10-08] MEDS: OLANZapine ORAL DISINTEGRATING TAB 5MG PO SCH ×3 (08:17→20:09)
[2021-10-08] MEDS: ENOXAPARIN 40MG/0.4ML SYRINGE (J1650 PER 10MG) SC SCH ×2 (08:18→20:09)
[2021-10-08] MEDS: METHADONE 10MG TAB PO SCH (08:18)
[2021-10-08] MEDS: MIRALAX *UNIT DOSE* 17GM PACKET PO SCH (08:18)
[2021-10-08] MEDS: DOXYCYCLINE HYCLATE 100 MG in D5W MINI-BAG PLUS 100 ML IV SCH (13:27)
[2021-10-08] MEDS: LACTOBACILLUS ACIDOPHILUS CAP (BACID) PO SCH (18:14)
[2021-10-08] MEDS: ACETAMINOPHEN 325 MG/10.15 ML UDC GT PRN (19:39)
[2021-10-08] MEDS: SENNA 8.6 MG TAB (SENOKOT) PO SCH (20:09)
[2021-10-08] MEDS: QUEtiapine FUMARATE 50MG TAB PO SCH (20:09)
[2021-10-08] MEDS: ALBUTEROL SULFATE 2.5 MG/0.5 ML INH NEB SOLN NEB PRN (23:35)
[2021-10-09] VITALS: BP 126/66; O2SAT 96
[2021-10-09] MEDS: KCL 20MEQ IN 0.45NS 1000ML 1,000 ML IV SCH ×2 (00:27→10:55)
[2021-10-09] MEDS: DOXYCYCLINE HYCLATE 100 MG in D5W MINI-BAG PLUS 100 ML IV SCH ×2 (00:28→13:56)
[2021-10-09 03:49] LABS: HEMATOCRIT 27.7 % (36.0-47.0); HEMOGLOBIN 8.5 g/dl (12.0-15.5); MEAN CORPUSCULAR HEMOGLOBIN 29.5 pg (27.0-33.0); MEAN CORPUSCULAR HGB CONC 30.7 g/dl (32.0-36.5); MEAN CORPUSCULAR VOLUME 96.2 fl (80.0-96.0); PLATELET COUNT, AUTOMATED 118 10^3/uL (150-450); RED BLOOD COUNT 2.88 10^6/uL (4.00-5.40); WHITE BLOOD COUNT 4.7 10^3/uL (4.0-10.0)
[2021-10-09 04:00] VITALS: O2SAT 96
[2021-10-09 04:21] LABS: ALBUMIN 2.9 GM/DL (3.2-5.2); ALT/SGPT 187 U/L (12-78); BILIRUBIN,TOTAL 0.8 MG/DL (0.2-1.0); BLOOD UREA NITROGEN 7 MG/DL (7-18); CALCIUM LEVEL 8.5 MG/DL (8.5-10.1); CARBON DIOXIDE LEVEL 27 MEQ/L (21-32); CHLORIDE LEVEL 108 MEQ/L (98-107); CREATININE FOR GFR 0.91 MG/DL (0.55-1.30); GLOMERULAR FILTRATION RATE > 60.0 (>60); GLUCOSE, FASTING 98 MG/DL (70-100); MAGNESIUM LEVEL 1.8 MG/DL (1.8-2.4); SODIUM LEVEL 141 MEQ/L (136-145); TOTAL PROTEIN 5.9 GM/DL (6.4-8.2)
[2021-10-09] MEDS: LEVOTHYROXINE 150MCG TABLET (0.15MG) PO SCH (06:14)
[2021-10-09] MEDS: SODIUM CHLORIDE 0.9% INJ 10 ML SYR IV SCH ×2 (06:15→17:56)
[2021-10-09 07:47] VITALS: BP 122/59
[2021-10-09] MEDS: MIRALAX *UNIT DOSE* 17GM PACKET PO SCH (09:00)
[2021-10-09] MEDS: GABAPENTIN 400MG CAP PO SCH ×3 (09:30→20:35)
[2021-10-09] MEDS: METHADONE 10MG TAB PO SCH (09:30)
[2021-10-09] MEDS: OLANZapine ORAL DISINTEGRATING TAB 5MG PO SCH ×3 (09:30→20:35)
[2021-10-09] MEDS: ENOXAPARIN 40MG/0.4ML SYRINGE (J1650 PER 10MG) SC SCH ×2 (09:30→20:36)
[2021-10-09] MEDS: LACTOBACILLUS ACIDOPHILUS CAP (BACID) PO SCH ×2 (09:30→17:56)
[2021-10-09] MEDS ORDERED: VARIBAR NECTAR 40% w/v 240ML SUSP BTL As Ordered ONE ×2 (10:13→13:15)
[2021-10-09] MEDS ORDERED: VARIBAR PUDDING 40% w/v 230ML TUBE As Ordered ONE (10:13)
[2021-10-09] MEDS ORDERED: E-Z-PAQUE 96% w/w SUSP 176GM BTL As Ordered ONE (10:14)
[2021-10-09] MEDS ORDERED: BARIUM SULFATE 700 MG TABLET (E-Z-DISK) As Ordered ONE (10:14)
[2021-10-09] MEDS: ACETAMINOPHEN 325 MG/10.15 ML UDC GT PRN ×2 (15:58→21:42)
[2021-10-09 16:26] VITALS: BP 120/76
[2021-10-09 19:51] VITALS: BP 138/91
[2021-10-09 20:00] VITALS: O2SAT 96
[2021-10-09] MEDS: QUEtiapine FUMARATE 50MG TAB PO SCH (20:35)
[2021-10-09] MEDS: SENNA 8.6 MG TAB (SENOKOT) PO SCH (20:35)
[2021-10-10] MEDS: ALBUTEROL SULFATE 2.5 MG/0.5 ML INH NEB SOLN NEB PRN ×2 (00:12→23:42)
[2021-10-10] MEDS: DOXYCYCLINE HYCLATE 100 MG in D5W MINI-BAG PLUS 100 ML IV SCH ×2 (00:41→12:41)
[2021-10-10 03:35] VITALS: BP 119/67
[2021-10-10] MEDS: SODIUM CHLORIDE 0.9% INJ 10 ML SYR IV SCH ×2 (06:21→17:26)
[2021-10-10] MEDS: LEVOTHYROXINE 150MCG TABLET (0.15MG) PO SCH (06:21)
[2021-10-10 07:45] VITALS: BP 130/82
[2021-10-10] MEDS: ENOXAPARIN 40MG/0.4ML SYRINGE (J1650 PER 10MG) SC SCH ×2 (09:00→20:08)
[2021-10-10] MEDS: MIRALAX *UNIT DOSE* 17GM PACKET PO SCH (09:00)
[2021-10-10] MEDS: METHADONE 10MG TAB PO SCH (09:18)
[2021-10-10] MEDS: OLANZapine ORAL DISINTEGRATING TAB 5MG PO SCH ×3 (09:18→20:08)
[2021-10-10] MEDS: GABAPENTIN 400MG CAP PO SCH ×3 (09:18→20:08)
[2021-10-10] MEDS: LACTOBACILLUS ACIDOPHILUS CAP (BACID) PO SCH ×2 (09:19→17:25)
[2021-10-10] MEDS: predniSONE 20 MG TAB PO SCH (09:19)
[2021-10-10 09:48] LABS: BASO % 0.8 % (0.0-1.0); EOS # 0.3 10^3/uL (0.0-0.5); EOS % 7.2 % (0.0-3.0); HEMATOCRIT 29.5 % (36.0-47.0); HEMOGLOBIN 8.9 g/dl (12.0-15.5); LYMPH # 0.8 10^3/uL (1.5-5.0); LYMPH % 20.8 % (24.0-44.0); MEAN CORPUSCULAR HEMOGLOBIN 28.5 pg (27.0-33.0); MEAN CORPUSCULAR HGB CONC 30.2 g/dl (32.0-36.5); MEAN CORPUSCULAR VOLUME 94.6 fl (80.0-96.0); MONO # 0.3 10^3/uL (0.0-0.8); MONO % 8.3 % (2.0-8.0); NEUTROPHILS # 2.2 10^3/uL (1.5-8.5); NEUTROPHILS % 61.8 % (36.0-66.0); PLATELET COUNT, AUTOMATED 101 10^3/uL (150-450); RED BLOOD COUNT 3.12 10^6/uL (4.00-5.40); WHITE BLOOD COUNT 3.6 10^3/uL (4.0-10.0)
[2021-10-10 10:32] LABS: ALBUMIN 3.1 GM/DL (3.2-5.2); ALT/SGPT 158 U/L (12-78); BILIRUBIN,TOTAL 0.6 MG/DL (0.2-1.0); BLOOD UREA NITROGEN 4 MG/DL (7-18); CALCIUM LEVEL 8.8 MG/DL (8.5-10.1); CARBON DIOXIDE LEVEL 26 MEQ/L (21-32); CHLORIDE LEVEL 108 MEQ/L (98-107); CREATININE FOR GFR 0.94 MG/DL (0.55-1.30); GLOMERULAR FILTRATION RATE > 60.0 (>60); GLUCOSE, FASTING 178 MG/DL (70-100); MAGNESIUM LEVEL 1.6 MG/DL (1.8-2.4); POTASSIUM SERUM 3.9 MEQ/L (3.5-5.1); SODIUM LEVEL 141 MEQ/L (136-145); TOTAL PROTEIN 6.2 GM/DL (6.4-8.2)
[2021-10-10 15:40] VITALS: BP 127/82
[2021-10-10 20:00] VITALS: BP 129/68
[2021-10-10] MEDS: DOXYCYCLINE HYCLATE 100MG TABLET PO SCH (20:07)
[2021-10-10] MEDS: LACTIC ACID 12% LOTION 225 GM BTL EXT SCH (20:08)
[2021-10-10] MEDS: SENNA 8.6 MG TAB (SENOKOT) PO SCH (20:08)
[2021-10-10] MEDS: QUEtiapine FUMARATE 50MG TAB PO SCH (20:08)
[2021-10-10 21:22] LABS: HEPATITIS C VIRUS ABY INDEX 0.1 INDEX (<0.8)
[2021-10-11] VITALS: BP 133/63
[2021-10-11] MEDS: LEVOTHYROXINE 150MCG TABLET (0.15MG) PO SCH (06:39)
[2021-10-11] MEDS: SODIUM CHLORIDE 0.9% INJ 10 ML SYR IV SCH (06:40)
[2021-10-11 07:56] VITALS: BP 151/81
[2021-10-11] MEDS: DOXYCYCLINE HYCLATE 100MG TABLET PO SCH (08:01)
[2021-10-11] MEDS: predniSONE 20 MG TAB PO SCH (08:01)
[2021-10-11] MEDS: OLANZapine ORAL DISINTEGRATING TAB 5MG PO SCH (08:01)
[2021-10-11] MEDS: LACTOBACILLUS ACIDOPHILUS CAP (BACID) PO SCH (08:01)
[2021-10-11] MEDS: METHADONE 10MG TAB PO SCH (08:02)
[2021-10-11] MEDS: GABAPENTIN 400MG CAP PO SCH (08:02)
[2021-10-11] MEDS: MIRALAX *UNIT DOSE* 17GM PACKET PO SCH (08:07)
[2021-10-11] MEDS: ENOXAPARIN 40MG/0.4ML SYRINGE (J1650 PER 10MG) SC SCH (08:07)
[2021-10-11] MEDS: LACTIC ACID 12% LOTION 225 GM BTL EXT SCH (08:10)
[2021-10-11 08:17] LABS: BASO # 0.1 10^3/uL (0.0-0.2); BASO % 1.4 % (0.0-1.0); EOS # 0.2 10^3/uL (0.0-0.5); EOS % 4.5 % (0.0-3.0); HEMATOCRIT 29.9 % (36.0-47.0); HEMOGLOBIN 9.2 g/dl (12.0-15.5); LYMPH # 1.3 10^3/uL (1.5-5.0); LYMPH % 29.3 % (24.0-44.0); MEAN CORPUSCULAR HEMOGLOBIN 29.2 pg (27.0-33.0); MEAN CORPUSCULAR HGB CONC 30.8 g/dl (32.0-36.5); MEAN CORPUSCULAR VOLUME 94.9 fl (80.0-96.0); MONO # 0.4 10^3/uL (0.0-0.8); MONO % 9.2 % (2.0-8.0); NEUTROPHILS # 2.3 10^3/uL (1.5-8.5); PLATELET COUNT, AUTOMATED 120 10^3/uL (150-450); RED BLOOD COUNT 3.15 10^6/uL (4.00-5.40); WHITE BLOOD COUNT 4.3 10^3/uL (4.0-10.0)
[2021-10-11 08:20] LABS: ALBUMIN 3.3 GM/DL (3.2-5.2); ALT/SGPT 125 U/L (12-78); BILIRUBIN,TOTAL 0.5 MG/DL (0.2-1.0); BLOOD UREA NITROGEN 6 MG/DL (7-18); CARBON DIOXIDE LEVEL 29 MEQ/L (21-32); CHLORIDE LEVEL 107 MEQ/L (98-107); CREATININE FOR GFR 0.92 MG/DL (0.55-1.30); GLOMERULAR FILTRATION RATE > 60.0 (>60); GLUCOSE, FASTING 106 MG/DL (70-100); MAGNESIUM LEVEL 1.7 MG/DL (1.8-2.4); POTASSIUM SERUM 3.5 MEQ/L (3.5-5.1); SODIUM LEVEL 144 MEQ/L (136-145); TOTAL PROTEIN 6.5 GM/DL (6.4-8.2)
[2021-10-11] MEDS ORDERED: AMMO12LO EXT (11:25)
[2021-10-11] MEDS ORDERED: QUET50TA4 PO (11:25)
[2021-10-11] MEDS ORDERED: PRED10TA2 PO (11:27)
[2021-10-11] MEDS ORDERED: SUCCINYLCHOLINE 100 MG/5 ML SYRINGE (J0330) ONE (12:56)
[2021-10-11] MEDS ORDERED: propofoL 200 MG/20 ML VIAL ONE (12:56)
== END 2021-10-11 12:57 | disposition home or self-care (01) | DRG 812 ==
LOC: M ED 13:26 → M ED INP 18:11 → ENRESERV 20:04 → M ICU 20:33 → M PCU 10-05 09:25
PROVIDERS: ADMIT Internal Medicine; ATTEND Family Medicine
PROC: 5A1955Z Respiratory Ventilation, Greater than 96 Consecutive Hours (ICD-10-PCS; 2021-09-25)
PROC: 02HV33Z Insertion of Infusion Device into Superior Vena Cava, Percutaneous Approach (ICD-10-PCS; principal; 2021-09-26 14:30)
PROC: 0BH17EZ Insertion of Endotracheal Airway into Trachea, Via Natural or Artificial Opening (ICD-10-PCS; 2021-09-27)
PROC: 0B9M8ZX Drainage of Bilateral Lungs, Via Natural or Artificial Opening Endoscopic, Diagnostic (ICD-10-PCS; 2021-09-27)
DX: T50.901A Poisoning by unspecified drugs, medicaments and biological substances, accidental (unintentional), initial encounter (principal); J96.21 Acute and chronic respiratory failure with hypoxia; R65.20 Severe sepsis without septic shock; J69.0 Pneumonitis due to inhalation of food and vomit; A41.9 Sepsis, unspecified organism; G93.41 Metabolic encephalopathy; J15.212 Pneumonia due to Methicillin resistant Staphylococcus aureus; N17.9 Acute kidney failure, unspecified; E87.2 Acidosis; F25.9 Schizoaffective disorder, unspecified; E83.42 Hypomagnesemia; R13.10 Dysphagia, unspecified; E03.9 Hypothyroidism, unspecified; Z91.19 Patient's noncompliance with other medical treatment and regimen; F41.9 Anxiety disorder, unspecified; F32.A Depression, unspecified; F10.239 Alcohol dependence with withdrawal, unspecified; F11.23 Opioid dependence with withdrawal; Z91.52 Personal history of nonsuicidal self-harm; Z79.899 Other long term (current) drug therapy; Z20.822 Contact with and (suspected) exposure to COVID-19; F17.210 Nicotine dependence, cigarettes, uncomplicated; J98.11 Atelectasis; F19.10 Other psychoactive substance abuse, uncomplicated; N18.9 Chronic kidney disease, unspecified; R41.82 Altered mental status, unspecified; R94.5 Abnormal results of liver function studies; T37.0X5A Adverse effect of sulfonamides, initial encounter; R74.01 Elevation of levels of liver transaminase levels; Z87.891 Personal history of nicotine dependence

== ENCOUNTER 2021-10-13 14:53 | Inpatient (IN) | payer OTHER ==
[~2021-10-13] VITALS: Ht 157.5 cm; Wt 115.5 kg
[2021-10-13] VITALS (15 sets, daily range): BP systolic 90–147; BP diastolic 50–99; O2SAT 89
[~2021-10-13 14:53] MED LIST changes: +AMMO12LO EXT; +PRAZ5CAP PO; +QUET100T2 PO; +TRAZ-186 PO; +VENL150C43 PO
[2021-10-13] MEDS ORDERED: IPRATROPIUM 0.5MG/ALBUTEROL 2.5MG INH SOL UD 3ML (DUONEB) NEB ONE (15:10)
[2021-10-13] MEDS ORDERED: dexameTHASONE 20MG/5ML VIAL (J1100 PER 1MG) As Ordered ONE (15:14)
[2021-10-13 15:15] LABS: BASO % 0.6 % (0.0-1.0); EOS # 0.2 10^3/uL (0.0-0.5); EOS % 4.1 % (0.0-3.0); HEMATOCRIT 32.1 % (36.0-47.0); HEMOGLOBIN 9.6 g/dl (12.0-15.5); LYMPH % 18.7 % (24.0-44.0); MEAN CORPUSCULAR HEMOGLOBIN 28.9 pg (27.0-33.0); MEAN CORPUSCULAR HGB CONC 29.9 g/dl (32.0-36.5); MEAN CORPUSCULAR VOLUME 96.7 fl (80.0-96.0); MONO # 0.5 10^3/uL (0.0-0.8); MONO % 8.9 % (2.0-8.0); NEUTROPHILS # 3.4 10^3/uL (1.5-8.5); NEUTROPHILS % 66.3 % (36.0-66.0); PLATELET COUNT, AUTOMATED 135 10^3/uL (150-450); RED BLOOD COUNT 3.32 10^6/uL (4.00-5.40); WHITE BLOOD COUNT 5.1 10^3/uL (4.0-10.0)
[2021-10-13] MEDS ORDERED: dexameTHASONE 20MG/5ML VIAL (J1100 PER 1MG) IV ONE (15:15)
[2021-10-13 15:16] LABS: ABG BASE EXCESS -2.5 (-2.0-2.0); ABG HCO3 24.6 MEQ/L (22.0-26.0); ABG O2 SATURATION 98.7 % (95.0-99.0); ABG PARTIAL PRESSURE CO2 54.1 mmHg (35.0-45.0); ABG PARTIAL PRESSURE O2 151.9 mmHg (75.0-100.0); ABG STANDARD HCO3 22.4 MEQ/L (22.0-26.0); ABG TOTAL CO2 26.3 MEQ/L (22.0-29.0); ABG pH (ARTERIAL) 7.276 UNITS (7.350-7.450)
[2021-10-13 15:26] LABS: INR 1.01; PROTHROMBIN TIME 13.7 SECONDS (12.7-14.5)
[2021-10-13 15:46] LABS: CK-MB VALUE MASS 17.2 NG/ML (<3.6); MB/CK RELATIVE INDEX 5.75 (< OR =4)
[2021-10-13 15:55] LABS: ALBUMIN 3.7 GM/DL (3.2-5.2); BILIRUBIN,DIRECT 0.3 MG/DL (0.0-0.2); BILIRUBIN,TOTAL 0.5 MG/DL (0.2-1.0); CALCIUM LEVEL 9.3 MG/DL (8.5-10.1); CREATININE FOR GFR 1.84 MG/DL (0.55-1.30); GLOMERULAR FILTRATION RATE 32.5 (>60); POTASSIUM SERUM 4.2 MEQ/L (3.5-5.1); THYROID STIMULATING HORMONE 3.56 uIU/ML (0.358-3.740); TOTAL PROTEIN 7.3 GM/DL (6.4-8.2)
[2021-10-13] MEDS ORDERED: VANCOMYCIN HCL 1,000 MG, VIAL MATE ADAPTER 1 EACH in NS 250 ML IV ONE (16:30)
[2021-10-13] MEDS ORDERED: PIPERACILLIN/TAZOBACTAM SOD 3.375 GM in D5W MINI-BAG PLUS 50 ML IV ONE (16:30)
[2021-10-13] MEDS ORDERED: QUET50TA4 PO (18:20)
[2021-10-13] MEDS ORDERED: AMMO12LO TOP (18:22)
[2021-10-13] MEDS ORDERED: HOME MED LIST COMPLETE! XX SCH (18:25)
[2021-10-13] MEDS: IPRATROPIUM 0.5MG/ALBUTEROL 2.5MG INH SOL UD 3ML (DUONEB) NEB SCH (19:42)
[2021-10-13] MEDS ORDERED: PROPOFOL 1,000 MG/100 ML VIAL As Ordered ONE (21:27)
[2021-10-13] MEDS ORDERED: propofoL 200 MG/20 ML VIAL IV ONE (21:40)
[2021-10-13] MEDS ORDERED: SUCCINYLCHOLINE INJ 200 MG/10 ML VIAL (J0330) IV ONE (21:40)
[2021-10-13 21:57] LABS: ABG BASE EXCESS -1.4 (-2.0-2.0); ABG HCO3 25.4 MEQ/L (22.0-26.0); ABG PARTIAL PRESSURE CO2 52.5 mmHg (35.0-45.0); ABG PARTIAL PRESSURE O2 67.6 mmHg (75.0-100.0); ABG STANDARD HCO3 23.2 MEQ/L (22.0-26.0); ABG pH (ARTERIAL) 7.302 UNITS (7.350-7.450)
[2021-10-13] MEDS: NS 1,000 ML IV SCH (22:12)
[2021-10-13] MEDS: propofoL 1,000 MG in IV 1 EA IV SCH ×2 (22:12→23:03)
[2021-10-13] MEDS: VANCOMYCIN HCL 1,000 MG, VIAL MATE ADAPTER 1 EACH in NS 250 ML IV SCH (22:17)
[2021-10-13] MEDS: PIPERACILLIN/TAZOBACTAM SOD 3.375 GM in D5W MINI-BAG PLUS 50 ML IV SCH (23:36)
[2021-10-14] VITALS (56 sets, daily range): BP systolic 87–120; BP diastolic 50–76
[2021-10-14] MEDS: propofoL 1,000 MG in IV 1 EA IV SCH ×9 (00:55→23:45)
[2021-10-14] MEDS: dexameTHASONE 20MG/5ML VIAL (J1100 PER 1MG) IV SCH ×2 (02:36→15:34)
[2021-10-14] MEDS: PIPERACILLIN/TAZOBACTAM SOD 3.375 GM in D5W MINI-BAG PLUS 50 ML IV SCH ×2 (04:13→12:50)
[2021-10-14 05:12] LABS: BASO % 0.5 % (0.0-1.0); EOS % 0.2 % (0.0-3.0); HEMATOCRIT 27.8 % (36.0-47.0); HEMOGLOBIN 8.6 g/dl (12.0-15.5); LYMPH # 0.7 10^3/uL (1.5-5.0); LYMPH % 16.4 % (24.0-44.0); MEAN CORPUSCULAR HGB CONC 30.9 g/dl (32.0-36.5); MEAN CORPUSCULAR VOLUME 93.6 fl (80.0-96.0); MONO # 0.3 10^3/uL (0.0-0.8); MONO % 7.1 % (2.0-8.0); NEUTROPHILS % 73.6 % (36.0-66.0); PLATELET COUNT, AUTOMATED 119 10^3/uL (150-450); RED BLOOD COUNT 2.97 10^6/uL (4.00-5.40); WHITE BLOOD COUNT 4.1 10^3/uL (4.0-10.0)
[2021-10-14 05:31] LABS: ALBUMIN 3.2 GM/DL (3.2-5.2); BILIRUBIN,TOTAL 0.7 MG/DL (0.2-1.0); CREATININE FOR GFR 1.36 MG/DL (0.55-1.30); GLOMERULAR FILTRATION RATE 46.1 (>60); POTASSIUM SERUM 4.1 MEQ/L (3.5-5.1); TOTAL PROTEIN 6.1 GM/DL (6.4-8.2)
[2021-10-14 05:53] LABS: ABG BASE EXCESS 1.5 (-2.0-2.0); ABG HCO3 25.9 MEQ/L (22.0-26.0); ABG O2 SATURATION 96.5 % (95.0-99.0); ABG PARTIAL PRESSURE CO2 39.5 mmHg (35.0-45.0); ABG PARTIAL PRESSURE O2 84.7 mmHg (75.0-100.0); ABG STANDARD HCO3 25.8 MEQ/L (22.0-26.0); ABG TOTAL CO2 27.1 MEQ/L (22.0-29.0); ABG pH (ARTERIAL) 7.434 UNITS (7.350-7.450)
[2021-10-14] MEDS: INSULIN LISPRO (NovoLOG) PER UNIT SC SCH ×4 (06:00→23:59)
[2021-10-14] MEDS: IPRATROPIUM 0.5MG/ALBUTEROL 2.5MG INH SOL UD 3ML (DUONEB) NEB SCH ×4 (07:16→19:13)
[2021-10-14] MEDS: CHLORHEXIDINE GLUCONATE 0.12 % 15ML UDC (PERIDEX ORAL RINSE) MT SCH ×2 (08:36→20:38)
[2021-10-14] MEDS: PANTOPRAZOLE 40MG VIAL IV SCH (08:36)
[2021-10-14] MEDS: NS 1,000 ML IV SCH ×2 (08:36→17:30)
[2021-10-14] MEDS: VANCOMYCIN HCL 1,000 MG, VIAL MATE ADAPTER 1 EACH in NS 250 ML IV SCH (10:28)
[2021-10-14] MEDS ORDERED: MIDAZOLAM INJ 2MG/2ML VIAL (J2250 PER 1MG) As Ordered ONE (12:41)
[2021-10-14] MEDS: MIDAZOLAM INJ 2MG/2ML VIAL (J2250 PER 1MG) IV PRN ×4 (12:45→22:48)
[2021-10-14] MEDS: FLUCONAZOLE 100 MG in IV 1 EA IV SCH (12:50)
[2021-10-15] VITALS (39 sets, daily range): BP systolic 99–136; BP diastolic 55–83
[2021-10-15] MEDS: propofoL 1,000 MG in IV 1 EA IV SCH ×12 (01:23→23:11)
[2021-10-15] MEDS: dexameTHASONE 20MG/5ML VIAL (J1100 PER 1MG) IV SCH ×2 (03:38→14:26)
[2021-10-15] MEDS: NS 1,000 ML IV SCH ×3 (03:38→23:11)
[2021-10-15] MEDS: MIDAZOLAM INJ 2MG/2ML VIAL (J2250 PER 1MG) IV PRN ×9 (03:38→20:58)
[2021-10-15 04:56] LABS: BASO % 0.2 % (0.0-1.0); EOS % 0.6 % (0.0-3.0); HEMATOCRIT 28.1 % (36.0-47.0); HEMOGLOBIN 8.5 g/dl (12.0-15.5); LYMPH # 0.9 10^3/uL (1.5-5.0); LYMPH % 18.1 % (24.0-44.0); MEAN CORPUSCULAR HEMOGLOBIN 28.7 pg (27.0-33.0); MEAN CORPUSCULAR HGB CONC 30.2 g/dl (32.0-36.5); MEAN CORPUSCULAR VOLUME 94.9 fl (80.0-96.0); MONO # 0.4 10^3/uL (0.0-0.8); MONO % 8.5 % (2.0-8.0); NEUTROPHILS # 3.3 10^3/uL (1.5-8.5); NEUTROPHILS % 71.3 % (36.0-66.0); PLATELET COUNT, AUTOMATED 116 10^3/uL (150-450); RED BLOOD COUNT 2.96 10^6/uL (4.00-5.40); WHITE BLOOD COUNT 4.7 10^3/uL (4.0-10.0)
[2021-10-15 05:26] LABS: ALBUMIN 2.9 GM/DL (3.2-5.2); ALT/SGPT 43 U/L (12-78); BILIRUBIN,TOTAL 0.5 MG/DL (0.2-1.0); BLOOD UREA NITROGEN 12 MG/DL (7-18); CALCIUM LEVEL 8.7 MG/DL (8.5-10.1); CARBON DIOXIDE LEVEL 26 MEQ/L (21-32); CHLORIDE LEVEL 111 MEQ/L (98-107); CREATININE FOR GFR 1.04 MG/DL (0.55-1.30); GLOMERULAR FILTRATION RATE > 60.0 (>60); GLUCOSE, FASTING 106 MG/DL (70-100); POTASSIUM SERUM 3.8 MEQ/L (3.5-5.1); SODIUM LEVEL 142 MEQ/L (136-145); TOTAL PROTEIN 5.9 GM/DL (6.4-8.2)
[2021-10-15 05:53] LABS: ABG BASE EXCESS 0.2 (-2.0-2.0); ABG HCO3 23.4 MEQ/L (22.0-26.0); ABG O2 SATURATION 97.5 % (95.0-99.0); ABG PARTIAL PRESSURE CO2 32.5 mmHg (35.0-45.0); ABG PARTIAL PRESSURE O2 100.1 mmHg (75.0-100.0); ABG STANDARD HCO3 24.6 MEQ/L (22.0-26.0); ABG TOTAL CO2 24.4 MEQ/L (22.0-29.0); ABG pH (ARTERIAL) 7.475 UNITS (7.350-7.450)
[2021-10-15] MEDS: INSULIN LISPRO (NovoLOG) PER UNIT SC SCH ×3 (05:57→17:47)
[2021-10-15] MEDS: IPRATROPIUM 0.5MG/ALBUTEROL 2.5MG INH SOL UD 3ML (DUONEB) NEB SCH ×4 (07:40→20:25)
[2021-10-15] MEDS ORDERED: POTASSIUM CHL PWD 20 MEQ PACKET PO ONE (09:20)
[2021-10-15] MEDS ORDERED: MORPHINE 2 MG/ML 1ML VIAL IV PRN (09:25)
[2021-10-15] MEDS: CHLORHEXIDINE GLUCONATE 0.12 % 15ML UDC (PERIDEX ORAL RINSE) MT SCH ×2 (09:25→21:10)
[2021-10-15] MEDS: PANTOPRAZOLE 40MG VIAL IV SCH (09:25)
[2021-10-15] MEDS: FLUCONAZOLE 100 MG in IV 1 EA IV SCH (11:05)
[2021-10-16] VITALS (36 sets, daily range): BP systolic 106–154; BP diastolic 54–96
[2021-10-16] MEDS: propofoL 1,000 MG in IV 1 EA IV SCH ×12 (00:35→23:07)
[2021-10-16] MEDS: INSULIN LISPRO (NovoLOG) PER UNIT SC SCH ×4 (00:44→18:21)
[2021-10-16] MEDS: dexameTHASONE 20MG/5ML VIAL (J1100 PER 1MG) IV SCH ×2 (02:13→15:12)
[2021-10-16] MEDS: MIDAZOLAM INJ 2MG/2ML VIAL (J2250 PER 1MG) IV PRN ×4 (04:33→21:23)
[2021-10-16 05:15] LABS: EOS % 0.4 % (0.0-3.0); HEMOGLOBIN 8.6 g/dl (12.0-15.5); LYMPH # 0.6 10^3/uL (1.5-5.0); LYMPH % 12.6 % (24.0-44.0); MEAN CORPUSCULAR HEMOGLOBIN 29.2 pg (27.0-33.0); MEAN CORPUSCULAR HGB CONC 30.7 g/dl (32.0-36.5); MEAN CORPUSCULAR VOLUME 94.9 fl (80.0-96.0); MONO # 0.4 10^3/uL (0.0-0.8); MONO % 7.3 % (2.0-8.0); NEUTROPHILS # 3.7 10^3/uL (1.5-8.5); NEUTROPHILS % 78.2 % (36.0-66.0); PLATELET COUNT, AUTOMATED 120 10^3/uL (150-450); RED BLOOD COUNT 2.95 10^6/uL (4.00-5.40); WHITE BLOOD COUNT 4.8 10^3/uL (4.0-10.0)
[2021-10-16 05:47] LABS: ALBUMIN 2.9 GM/DL (3.2-5.2); ALT/SGPT 35 U/L (12-78); BILIRUBIN,TOTAL 0.4 MG/DL (0.2-1.0); BLOOD UREA NITROGEN 14 MG/DL (7-18); CALCIUM LEVEL 8.5 MG/DL (8.5-10.1); CARBON DIOXIDE LEVEL 23 MEQ/L (21-32); CHLORIDE LEVEL 112 MEQ/L (98-107); CREATININE FOR GFR 0.92 MG/DL (0.55-1.30); GLOMERULAR FILTRATION RATE > 60.0 (>60); GLUCOSE, FASTING 119 MG/DL (70-100); POTASSIUM SERUM 4.2 MEQ/L (3.5-5.1); SODIUM LEVEL 141 MEQ/L (136-145); TOTAL PROTEIN 5.9 GM/DL (6.4-8.2)
[2021-10-16 06:22] LABS: ABG BASE EXCESS -1.4 (-2.0-2.0); ABG HCO3 22.3 MEQ/L (22.0-26.0); ABG O2 SATURATION 99.1 % (95.0-99.0); ABG PARTIAL PRESSURE CO2 33.5 mmHg (35.0-45.0); ABG PARTIAL PRESSURE O2 161.3 mmHg (75.0-100.0); ABG STANDARD HCO3 23.3 MEQ/L (22.0-26.0); ABG TOTAL CO2 23.3 MEQ/L (22.0-29.0); ABG pH (ARTERIAL) 7.441 UNITS (7.350-7.450)
[2021-10-16] MEDS: IPRATROPIUM 0.5MG/ALBUTEROL 2.5MG INH SOL UD 3ML (DUONEB) NEB SCH ×4 (08:00→20:03)
[2021-10-16] MEDS: CHLORHEXIDINE GLUCONATE 0.12 % 15ML UDC (PERIDEX ORAL RINSE) MT SCH ×2 (08:14→21:24)
[2021-10-16] MEDS: PANTOPRAZOLE 40MG VIAL IV SCH (08:15)
[2021-10-16] MEDS ORDERED: LIDOCAINE W/EPINEPHRINE 1% 20ML VIAL As Ordered ONE (10:12)
[2021-10-16] MEDS: NS 1,000 ML IV SCH (10:30)
[2021-10-16] MEDS ORDERED: fentaNYL 100 MCG/2 ML INJECTION As Ordered ONE ×2 (11:45→12:37)
[2021-10-16] MEDS ORDERED: dexameTHASONE 4 MG/ML 1ML VIAL (J1100 PER 1MG) As Ordered ONE (11:45)
[2021-10-16] MEDS ORDERED: ONDANSETRON 4MG 2ML VIAL As Ordered ONE (11:45)
[2021-10-16] MEDS ORDERED: propofoL 200 MG/20 ML VIAL As Ordered ONE (11:45)
[2021-10-16] MEDS ORDERED: ROCURONIUM BROMIDE 50 MG/5 ML VIAL As Ordered ONE (11:45)
[2021-10-16] MEDS ORDERED: ACETAMINOPHEN 1000MG 100ML IV BTL (OFIRMEV) (J0131 PER 10MG) As Ordered ONE (11:45)
[2021-10-16] MEDS ORDERED: MIDAZOLAM INJ 2MG/2ML VIAL (J2250 PER 1MG) As Ordered ONE (11:45)
[2021-10-16] MEDS ORDERED: ePHEDrine SULFATE 25 MG/5 ML(5MG/ML) SYRINGE As Ordered ONE (11:49)
[2021-10-16] MEDS ORDERED: ONDANSETRON 4MG 2ML VIAL IV PRN (12:35)
[2021-10-16] MEDS ORDERED: LR 1,000 ML IV SCH (12:35)
[2021-10-16] MEDS: fentaNYL 100 MCG/2 ML INJECTION IV PRN ×4 (12:36→12:51)
[2021-10-16] MEDS ORDERED: propofoL 1,000 MG in IV 1 EA IV SCH (12:40)
[2021-10-16] MEDS: fentaNYL CITRATE 1,000 MCG in NS 80 ML IV SCH (14:09)
[2021-10-17] VITALS (23 sets, daily range): BP systolic 99–159; BP diastolic 55–93
[2021-10-17] MEDS: INSULIN LISPRO (NovoLOG) PER UNIT SC SCH ×4 (00:11→18:00)
[2021-10-17] MEDS: fentaNYL CITRATE 1,000 MCG in NS 80 ML IV SCH ×2 (00:42→13:43)
[2021-10-17] MEDS: dexameTHASONE 20MG/5ML VIAL (J1100 PER 1MG) IV SCH ×2 (03:22→17:01)
[2021-10-17] MEDS: propofoL 1,000 MG in IV 1 EA IV SCH ×3 (03:22→07:09)
[2021-10-17 04:52] LABS: BASO % 0.2 % (0.0-1.0); EOS % 0.4 % (0.0-3.0); HEMATOCRIT 27.4 % (36.0-47.0); HEMOGLOBIN 8.5 g/dl (12.0-15.5); LYMPH % 18.1 % (24.0-44.0); MEAN CORPUSCULAR HEMOGLOBIN 29.4 pg (27.0-33.0); MEAN CORPUSCULAR VOLUME 94.8 fl (80.0-96.0); MONO # 0.5 10^3/uL (0.0-0.8); MONO % 9.5 % (2.0-8.0); NEUTROPHILS # 3.8 10^3/uL (1.5-8.5); NEUTROPHILS % 70.5 % (36.0-66.0); PLATELET COUNT, AUTOMATED 133 10^3/uL (150-450); RED BLOOD COUNT 2.89 10^6/uL (4.00-5.40); WHITE BLOOD COUNT 5.4 10^3/uL (4.0-10.0)
[2021-10-17 05:21] LABS: ALBUMIN 2.9 GM/DL (3.2-5.2); ALT/SGPT 30 U/L (12-78); BILIRUBIN,TOTAL 0.3 MG/DL (0.2-1.0); BLOOD UREA NITROGEN 18 MG/DL (7-18); CALCIUM LEVEL 8.4 MG/DL (8.5-10.1); CARBON DIOXIDE LEVEL 23 MEQ/L (21-32); CHLORIDE LEVEL 111 MEQ/L (98-107); CREATININE FOR GFR 0.91 MG/DL (0.55-1.30); GLOMERULAR FILTRATION RATE > 60.0 (>60); GLUCOSE, FASTING 90 MG/DL (70-100); POTASSIUM SERUM 4.1 MEQ/L (3.5-5.1); SODIUM LEVEL 143 MEQ/L (136-145); TOTAL PROTEIN 5.8 GM/DL (6.4-8.2)
[2021-10-17 06:27] LABS: ABG BASE EXCESS -3.8 (-2.0-2.0); ABG HCO3 20.5 MEQ/L (22.0-26.0); ABG PARTIAL PRESSURE CO2 34.1 mmHg (35.0-45.0); ABG PARTIAL PRESSURE O2 117.5 mmHg (75.0-100.0); ABG STANDARD HCO3 21.3 MEQ/L (22.0-26.0); ABG TOTAL CO2 21.5 MEQ/L (22.0-29.0); ABG pH (ARTERIAL) 7.396 UNITS (7.350-7.450)
[2021-10-17] MEDS: IPRATROPIUM 0.5MG/ALBUTEROL 2.5MG INH SOL UD 3ML (DUONEB) NEB SCH ×4 (07:05→21:06)
[2021-10-17] MEDS ORDERED: VENLAFAXINE **XR** 75MG CAPSULE PO SCH (09:00)
[2021-10-17] MEDS: CHLORHEXIDINE GLUCONATE 0.12 % 15ML UDC (PERIDEX ORAL RINSE) MT SCH ×2 (10:39→20:14)
[2021-10-17] MEDS: METHADONE 10MG TAB PO SCH (10:40)
[2021-10-17] MEDS: GABAPENTIN 400MG CAP PO SCH ×3 (10:40→20:15)
[2021-10-17] MEDS: VENLAFAXINE 25 MG TAB PO SCH ×3 (10:40→20:15)
[2021-10-17] MEDS: LEVOTHYROXINE 150MCG TABLET (0.15MG) PO SCH (10:41)
[2021-10-17] MEDS: ENOXAPARIN 40MG/0.4ML SYRINGE (J1650 PER 10MG) SC SCH ×2 (11:11→20:15)
[2021-10-17] MEDS: OLANZapine 5 MG TAB PO SCH ×3 (12:00→20:15)
[2021-10-17] MEDS: QUEtiapine FUMARATE 50MG TAB PO SCH (20:16)
[2021-10-18] VITALS (14 sets, daily range): BP systolic 97–146; BP diastolic 53–88
[2021-10-18] MEDS: fentaNYL CITRATE 1,000 MCG in NS 80 ML IV SCH (00:31)
[2021-10-18] MEDS: INSULIN LISPRO (NovoLOG) PER UNIT SC SCH ×2 (00:36→05:46)
[2021-10-18] MEDS: dexameTHASONE 20MG/5ML VIAL (J1100 PER 1MG) IV SCH (02:20)
[2021-10-18 05:33] LABS: BASO % 0.2 % (0.0-1.0); EOS % 0.8 % (0.0-3.0); HEMOGLOBIN 9.4 g/dl (12.0-15.5); LYMPH # 0.6 10^3/uL (1.5-5.0); LYMPH % 12.7 % (24.0-44.0); MEAN CORPUSCULAR HEMOGLOBIN 28.9 pg (27.0-33.0); MEAN CORPUSCULAR HGB CONC 30.3 g/dl (32.0-36.5); MEAN CORPUSCULAR VOLUME 95.4 fl (80.0-96.0); MONO # 0.3 10^3/uL (0.0-0.8); MONO % 6.3 % (2.0-8.0); NEUTROPHILS % 78.6 % (36.0-66.0); PLATELET COUNT, AUTOMATED 132 10^3/uL (150-450); RED BLOOD COUNT 3.25 10^6/uL (4.00-5.40); WHITE BLOOD COUNT 5.1 10^3/uL (4.0-10.0)
[2021-10-18 05:41] LABS: ABG HCO3 23.9 MEQ/L (22.0-26.0); ABG O2 SATURATION 96.4 % (95.0-99.0); ABG PARTIAL PRESSURE CO2 40.8 mmHg (35.0-45.0); ABG PARTIAL PRESSURE O2 89.7 mmHg (75.0-100.0); ABG STANDARD HCO3 23.6 MEQ/L (22.0-26.0); ABG TOTAL CO2 25.2 MEQ/L (22.0-29.0); ABG pH (ARTERIAL) 7.386 UNITS (7.350-7.450)
[2021-10-18] MEDS: LEVOTHYROXINE 150MCG TABLET (0.15MG) PO SCH (05:46)
[2021-10-18 06:00] LABS: ALBUMIN 3.1 GM/DL (3.2-5.2); ALT/SGPT 53 U/L (12-78); BILIRUBIN,TOTAL 0.4 MG/DL (0.2-1.0); BLOOD UREA NITROGEN 21 MG/DL (7-18); CALCIUM LEVEL 8.4 MG/DL (8.5-10.1); CARBON DIOXIDE LEVEL 25 MEQ/L (21-32); CHLORIDE LEVEL 113 MEQ/L (98-107); CREATININE FOR GFR 0.92 MG/DL (0.55-1.30); GLOMERULAR FILTRATION RATE > 60.0 (>60); GLUCOSE, FASTING 128 MG/DL (70-100); SODIUM LEVEL 146 MEQ/L (136-145)
[2021-10-18] MEDS: IPRATROPIUM 0.5MG/ALBUTEROL 2.5MG INH SOL UD 3ML (DUONEB) NEB SCH ×4 (07:06→19:23)
[2021-10-18] MEDS: ENOXAPARIN 40MG/0.4ML SYRINGE (J1650 PER 10MG) SC SCH ×2 (08:37→21:07)
[2021-10-18] MEDS: CHLORHEXIDINE GLUCONATE 0.12 % 15ML UDC (PERIDEX ORAL RINSE) MT SCH (08:37)
[2021-10-18] MEDS: METHADONE 10MG TAB PO SCH (08:38)
[2021-10-18] MEDS: GABAPENTIN 400MG CAP PO SCH ×3 (08:38→21:07)
[2021-10-18] MEDS: OLANZapine 5 MG TAB PO SCH ×3 (08:38→21:07)
[2021-10-18] MEDS: VENLAFAXINE 25 MG TAB PO SCH ×3 (08:38→21:07)
[2021-10-18] MEDS ORDERED: VARIBAR PUDDING 40% w/v 230ML TUBE As Ordered ONE (09:39)
[2021-10-18] MEDS ORDERED: VARIBAR NECTAR 40% w/v 240ML SUSP BTL As Ordered ONE (09:39)
[2021-10-18] MEDS ORDERED: E-Z-PAQUE 96% w/w SUSP 176GM BTL As Ordered ONE (09:39)
[2021-10-18] MEDS ORDERED: BARIUM SULFATE 700 MG TABLET (E-Z-DISK) As Ordered ONE (09:40)
[2021-10-18] MEDS ORDERED: ACETAMINOPHEN 325 MG/10.15 ML UDC NG PRN (09:55)
[2021-10-18] MEDS: ACETAMINOPHEN TAB 650MG DOSE (2X325MG) PO PRN (13:29)
[2021-10-18] MEDS: dexameTHASONE 4 MG/ML 1ML VIAL (J1100 PER 1MG) IV SCH (15:55)
[2021-10-18] MEDS: QUEtiapine FUMARATE 50MG TAB PO SCH (21:07)
[2021-10-19] MEDS: dexameTHASONE 4 MG/ML 1ML VIAL (J1100 PER 1MG) IV SCH (02:34)
[2021-10-19] MEDS: LEVOTHYROXINE 150MCG TABLET (0.15MG) PO SCH (05:46)
[2021-10-19 06:00] VITALS: BP 137/79
[2021-10-19 06:18] LABS: BASO % 0.2 % (0.0-1.0); EOS # 0.1 10^3/uL (0.0-0.5); EOS % 1.8 % (0.0-3.0); HEMATOCRIT 33.1 % (36.0-47.0); LYMPH # 0.7 10^3/uL (1.5-5.0); LYMPH % 12.6 % (24.0-44.0); MEAN CORPUSCULAR HEMOGLOBIN 28.2 pg (27.0-33.0); MEAN CORPUSCULAR HGB CONC 30.2 g/dl (32.0-36.5); MEAN CORPUSCULAR VOLUME 93.2 fl (80.0-96.0); MONO # 0.4 10^3/uL (0.0-0.8); MONO % 6.5 % (2.0-8.0); NEUTROPHILS # 4.3 10^3/uL (1.5-8.5); NEUTROPHILS % 77.3 % (36.0-66.0); PLATELET COUNT, AUTOMATED 142 10^3/uL (150-450); RED BLOOD COUNT 3.55 10^6/uL (4.00-5.40); WHITE BLOOD COUNT 5.6 10^3/uL (4.0-10.0)
[2021-10-19 06:39] LABS: ALBUMIN 3.2 GM/DL (3.2-5.2); ALT/SGPT 58 U/L (12-78); BILIRUBIN,TOTAL 0.4 MG/DL (0.2-1.0); BLOOD UREA NITROGEN 16 MG/DL (7-18); CALCIUM LEVEL 8.8 MG/DL (8.5-10.1); CARBON DIOXIDE LEVEL 28 MEQ/L (21-32); CHLORIDE LEVEL 111 MEQ/L (98-107); CREATININE FOR GFR 0.85 MG/DL (0.55-1.30); GLOMERULAR FILTRATION RATE > 60.0 (>60); GLUCOSE, FASTING 105 MG/DL (70-100); POTASSIUM SERUM 4.2 MEQ/L (3.5-5.1); SODIUM LEVEL 145 MEQ/L (136-145); TOTAL PROTEIN 6.4 GM/DL (6.4-8.2)
[2021-10-19] MEDS: IPRATROPIUM 0.5MG/ALBUTEROL 2.5MG INH SOL UD 3ML (DUONEB) NEB SCH ×4 (07:02→19:39)
[2021-10-19] MEDS: VENLAFAXINE 25 MG TAB PO SCH ×3 (08:24→21:31)
[2021-10-19] MEDS: METHADONE 10MG TAB PO SCH (08:24)
[2021-10-19] MEDS: OLANZapine 5 MG TAB PO SCH ×3 (08:25→21:30)
[2021-10-19] MEDS: ENOXAPARIN 40MG/0.4ML SYRINGE (J1650 PER 10MG) SC SCH ×2 (08:25→21:31)
[2021-10-19] MEDS: GABAPENTIN 400MG CAP PO SCH ×3 (08:25→21:31)
[2021-10-19 14:52] VITALS: BP 128/81
[2021-10-19] MEDS: QUEtiapine FUMARATE 50MG TAB PO SCH (21:30)
[2021-10-19 21:40] VITALS: BP 130/84
[2021-10-20] MEDS ORDERED: dexameTHASONE 4 MG/ML 1ML VIAL (J1100 PER 1MG) IV SCH (03:00)
[2021-10-20] MEDS: LEVOTHYROXINE 150MCG TABLET (0.15MG) PO SCH (05:29)
[2021-10-20 06:00] VITALS: BP 130/82
[2021-10-20 07:10] LABS: BASO % 0.3 % (0.0-1.0); EOS # 0.1 10^3/uL (0.0-0.5); EOS % 2.3 % (0.0-3.0); HEMATOCRIT 31.2 % (36.0-47.0); HEMOGLOBIN 9.4 g/dl (12.0-15.5); LYMPH # 0.6 10^3/uL (1.5-5.0); LYMPH % 10.7 % (24.0-44.0); MEAN CORPUSCULAR HEMOGLOBIN 28.7 pg (27.0-33.0); MEAN CORPUSCULAR HGB CONC 30.1 g/dl (32.0-36.5); MEAN CORPUSCULAR VOLUME 95.1 fl (80.0-96.0); MONO # 0.3 10^3/uL (0.0-0.8); MONO % 5.7 % (2.0-8.0); NEUTROPHILS # 4.7 10^3/uL (1.5-8.5); NEUTROPHILS % 78.8 % (36.0-66.0); PLATELET COUNT, AUTOMATED 148 10^3/uL (150-450); RED BLOOD COUNT 3.28 10^6/uL (4.00-5.40)
[2021-10-20 07:43] LABS: ALBUMIN 3.1 GM/DL (3.2-5.2); ALT/SGPT 47 U/L (12-78); BILIRUBIN,TOTAL 0.5 MG/DL (0.2-1.0); BLOOD UREA NITROGEN 11 MG/DL (7-18); CALCIUM LEVEL 8.5 MG/DL (8.5-10.1); CARBON DIOXIDE LEVEL 31 MEQ/L (21-32); CHLORIDE LEVEL 107 MEQ/L (98-107); CREATININE FOR GFR 0.91 MG/DL (0.55-1.30); GLOMERULAR FILTRATION RATE > 60.0 (>60); GLUCOSE, FASTING 130 MG/DL (70-100); POTASSIUM SERUM 4.2 MEQ/L (3.5-5.1); SODIUM LEVEL 143 MEQ/L (136-145); TOTAL PROTEIN 5.9 GM/DL (6.4-8.2)
[2021-10-20] MEDS: IPRATROPIUM 0.5MG/ALBUTEROL 2.5MG INH SOL UD 3ML (DUONEB) NEB SCH ×4 (07:48→19:49)
[2021-10-20] MEDS: OLANZapine 5 MG TAB PO SCH ×3 (09:43→21:13)
[2021-10-20] MEDS: METHADONE 10MG TAB PO SCH (09:43)
[2021-10-20] MEDS: ENOXAPARIN 40MG/0.4ML SYRINGE (J1650 PER 10MG) SC SCH ×2 (09:44→21:13)
[2021-10-20] MEDS: GABAPENTIN 400MG CAP PO SCH ×3 (09:44→21:12)
[2021-10-20] MEDS: VENLAFAXINE 25 MG TAB PO SCH ×3 (09:44→21:12)
[2021-10-20] MEDS: ACETAMINOPHEN TAB 650MG DOSE (2X325MG) PO PRN (21:11)
[2021-10-20] MEDS: QUEtiapine FUMARATE 50MG TAB PO SCH (21:12)
[2021-10-20 22:00] VITALS: BP 126/86
[2021-10-21] MEDS ORDERED: PILL CUTTER 1 EACH XX PRN (01:40)
[2021-10-21 05:32] LABS: HEMATOCRIT 30.5 % (36.0-47.0); MEAN CORPUSCULAR HEMOGLOBIN 27.9 pg (27.0-33.0); MEAN CORPUSCULAR HGB CONC 29.5 g/dl (32.0-36.5); MEAN CORPUSCULAR VOLUME 94.4 fl (80.0-96.0); PLATELET COUNT, AUTOMATED 143 10^3/uL (150-450); RED BLOOD COUNT 3.23 10^6/uL (4.00-5.40); WHITE BLOOD COUNT 4.9 10^3/uL (4.0-10.0)
[2021-10-21] MEDS: LEVOTHYROXINE 150MCG TABLET (0.15MG) PO SCH (05:37)
[2021-10-21 05:59] LABS: BLOOD UREA NITROGEN 8 MG/DL (7-18); CALCIUM LEVEL 8.6 MG/DL (8.5-10.1); CARBON DIOXIDE LEVEL 28 MEQ/L (21-32); CHLORIDE LEVEL 111 MEQ/L (98-107); CREATININE FOR GFR 1.03 MG/DL (0.55-1.30); GLOMERULAR FILTRATION RATE > 60.0 (>60); GLUCOSE, FASTING 105 MG/DL (70-100); POTASSIUM SERUM 3.6 MEQ/L (3.5-5.1); SODIUM LEVEL 146 MEQ/L (136-145)
[2021-10-21 06:00] VITALS: BP 132/64
[2021-10-21] MEDS: IPRATROPIUM 0.5MG/ALBUTEROL 2.5MG INH SOL UD 3ML (DUONEB) NEB SCH ×4 (07:15→20:09)
[2021-10-21] MEDS: METHADONE 10MG TAB PO SCH (08:23)
[2021-10-21] MEDS: ENOXAPARIN 40MG/0.4ML SYRINGE (J1650 PER 10MG) SC SCH ×2 (08:26→20:23)
[2021-10-21] MEDS: GABAPENTIN 400MG CAP PO SCH ×3 (08:26→20:23)
[2021-10-21] MEDS: OLANZapine 5 MG TAB PO SCH ×3 (08:27→20:23)
[2021-10-21] MEDS: VENLAFAXINE 25 MG TAB PO SCH ×3 (08:27→20:23)
[2021-10-21] MEDS ORDERED: VARIBAR PUDDING 40% w/v 230ML TUBE As Ordered ONE (10:55)
[2021-10-21] MEDS ORDERED: VARIBAR NECTAR 40% w/v 240ML SUSP BTL As Ordered ONE (10:56)
[2021-10-21] MEDS ORDERED: E-Z-PAQUE 96% w/w SUSP 176GM BTL As Ordered ONE (10:56)
[2021-10-21] MEDS ORDERED: BARIUM SULFATE 700 MG TABLET (E-Z-DISK) As Ordered ONE (10:57)
[2021-10-21] MEDS ORDERED: PRED10TA2 PO (13:56)
[2021-10-21 14:00] VITALS: BP 125/59
[2021-10-21] MEDS: VANICREAM MOISTURIZING SKIN CREAM 113GM TUBE TOP SCH ×2 (14:59→20:23)
[2021-10-21 19:24] VITALS: BP 138/94
[2021-10-21] MEDS: QUEtiapine FUMARATE 50MG TAB PO SCH (20:23)
[2021-10-22 05:31] VITALS: BP 122/74
[2021-10-22] MEDS: LEVOTHYROXINE 150MCG TABLET (0.15MG) PO SCH (05:53)
[2021-10-22 05:56] LABS: HEMATOCRIT 30.6 % (36.0-47.0); HEMOGLOBIN 9.1 g/dl (12.0-15.5); MEAN CORPUSCULAR HEMOGLOBIN 27.7 pg (27.0-33.0); MEAN CORPUSCULAR HGB CONC 29.7 g/dl (32.0-36.5); MEAN CORPUSCULAR VOLUME 93.3 fl (80.0-96.0); PLATELET COUNT, AUTOMATED 153 10^3/uL (150-450); RED BLOOD COUNT 3.28 10^6/uL (4.00-5.40); WHITE BLOOD COUNT 5.2 10^3/uL (4.0-10.0)
[2021-10-22 06:18] LABS: BLOOD UREA NITROGEN 6 MG/DL (7-18); CALCIUM LEVEL 8.5 MG/DL (8.5-10.1); CARBON DIOXIDE LEVEL 29 MEQ/L (21-32); CHLORIDE LEVEL 108 MEQ/L (98-107); CREATININE FOR GFR 0.93 MG/DL (0.55-1.30); GLOMERULAR FILTRATION RATE > 60.0 (>60); GLUCOSE, FASTING 109 MG/DL (70-100); POTASSIUM SERUM 3.7 MEQ/L (3.5-5.1); SODIUM LEVEL 144 MEQ/L (136-145)
[2021-10-22] MEDS: METHADONE 10MG TAB PO SCH (08:12)
[2021-10-22] MEDS: GABAPENTIN 400MG CAP PO SCH ×3 (08:15→20:22)
[2021-10-22] MEDS: ENOXAPARIN 40MG/0.4ML SYRINGE (J1650 PER 10MG) SC SCH ×2 (08:15→20:21)
[2021-10-22] MEDS: VENLAFAXINE 25 MG TAB PO SCH ×3 (08:17→20:22)
[2021-10-22] MEDS: OLANZapine 5 MG TAB PO SCH ×3 (08:18→20:22)
[2021-10-22] MEDS: VANICREAM MOISTURIZING SKIN CREAM 113GM TUBE TOP SCH ×2 (08:19→20:22)
[2021-10-22] MEDS: IPRATROPIUM 0.5MG/ALBUTEROL 2.5MG INH SOL UD 3ML (DUONEB) NEB SCH ×4 (08:27→19:51)
[2021-10-22] MEDS: ACETAMINOPHEN TAB 650MG DOSE (2X325MG) PO PRN ×2 (09:01→18:34)
[2021-10-22] MEDS: AMPICILLIN SOD/SULBACTAM SOD 3 GM in D5W MINI-BAG PLUS 100 ML IV SCH ×2 (13:12→18:33)
[2021-10-22] MEDS: LACTOBACILLUS ACIDOPHILUS CAP (BACID) PO SCH ×2 (13:13→17:12)
[2021-10-22 13:57] VITALS: BP 123/94
[2021-10-22] MEDS ORDERED: LIDOCAINE 1% MDV 20ML VIAL As Ordered ONE (15:59)
[2021-10-22] MEDS: SODIUM CHLORIDE 0.9% INJ 10 ML SYR IV SCH (19:37)
[2021-10-22 19:58] VITALS: BP 136/69
[2021-10-22] MEDS: QUEtiapine FUMARATE 50MG TAB PO SCH (20:21)
[2021-10-22] MEDS ORDERED: AUGMENTIN 875 MG TAB PO SCH (21:00)
[2021-10-23] MEDS: AMPICILLIN SOD/SULBACTAM SOD 3 GM in D5W MINI-BAG PLUS 100 ML IV SCH ×4 (00:03→19:03)
[2021-10-23] MEDS: ACETAMINOPHEN TAB 650MG DOSE (2X325MG) PO PRN ×3 (05:22→21:46)
[2021-10-23] MEDS: LEVOTHYROXINE 150MCG TABLET (0.15MG) PO SCH (05:22)
[2021-10-23] MEDS: SODIUM CHLORIDE 0.9% INJ 10 ML SYR IV SCH ×2 (05:23→16:15)
[2021-10-23 05:35] VITALS: BP 131/87
[2021-10-23 06:56] LABS: HEMATOCRIT 31.3 % (36.0-47.0); HEMOGLOBIN 9.2 g/dl (12.0-15.5); MEAN CORPUSCULAR HEMOGLOBIN 27.5 pg (27.0-33.0); MEAN CORPUSCULAR HGB CONC 29.4 g/dl (32.0-36.5); MEAN CORPUSCULAR VOLUME 93.7 fl (80.0-96.0); PLATELET COUNT, AUTOMATED 145 10^3/uL (150-450); RED BLOOD COUNT 3.34 10^6/uL (4.00-5.40); WHITE BLOOD COUNT 5.5 10^3/uL (4.0-10.0)
[2021-10-23 07:15] LABS: BLOOD UREA NITROGEN 7 MG/DL (7-18); CARBON DIOXIDE LEVEL 32 MEQ/L (21-32); CHLORIDE LEVEL 107 MEQ/L (98-107); CREATININE FOR GFR 0.91 MG/DL (0.55-1.30); GLOMERULAR FILTRATION RATE > 60.0 (>60); GLUCOSE, FASTING 114 MG/DL (70-100); POTASSIUM SERUM 3.6 MEQ/L (3.5-5.1); SODIUM LEVEL 144 MEQ/L (136-145)
[2021-10-23] MEDS: IPRATROPIUM 0.5MG/ALBUTEROL 2.5MG INH SOL UD 3ML (DUONEB) NEB SCH ×4 (08:30→19:09)
[2021-10-23] MEDS: METHADONE 10MG TAB PO SCH (08:57)
[2021-10-23] MEDS: ENOXAPARIN 40MG/0.4ML SYRINGE (J1650 PER 10MG) SC SCH ×2 (08:57→21:45)
[2021-10-23] MEDS: LACTOBACILLUS ACIDOPHILUS CAP (BACID) PO SCH ×2 (08:58→16:15)
[2021-10-23] MEDS: GABAPENTIN 400MG CAP PO SCH ×3 (08:58→21:46)
[2021-10-23] MEDS: VENLAFAXINE 25 MG TAB PO SCH ×3 (08:58→21:47)
[2021-10-23] MEDS: OLANZapine 5 MG TAB PO SCH ×3 (08:58→21:46)
[2021-10-23] MEDS: VANICREAM MOISTURIZING SKIN CREAM 113GM TUBE TOP SCH ×2 (08:59→21:48)
[2021-10-23 20:07] VITALS: BP 146/86
[2021-10-23] MEDS: QUEtiapine FUMARATE 50MG TAB PO SCH (21:45)
[2021-10-24] MEDS: AMPICILLIN SOD/SULBACTAM SOD 3 GM in D5W MINI-BAG PLUS 100 ML IV SCH ×2 (01:10→05:55)
[2021-10-24] MEDS: LEVOTHYROXINE 150MCG TABLET (0.15MG) PO SCH (05:54)
[2021-10-24] MEDS: SODIUM CHLORIDE 0.9% INJ 10 ML SYR IV SCH ×2 (05:55→17:58)
[2021-10-24 06:00] VITALS: BP 138/82
[2021-10-24 06:43] LABS: HEMOGLOBIN 9.5 g/dl (12.0-15.5); MEAN CORPUSCULAR HEMOGLOBIN 27.9 pg (27.0-33.0); MEAN CORPUSCULAR HGB CONC 29.7 g/dl (32.0-36.5); MEAN CORPUSCULAR VOLUME 93.8 fl (80.0-96.0); PLATELET COUNT, AUTOMATED 163 10^3/uL (150-450); RED BLOOD COUNT 3.41 10^6/uL (4.00-5.40); WHITE BLOOD COUNT 5.8 10^3/uL (4.0-10.0)
[2021-10-24 07:19] LABS: BLOOD UREA NITROGEN 6 MG/DL (7-18); CALCIUM LEVEL 8.9 MG/DL (8.5-10.1); CARBON DIOXIDE LEVEL 29 MEQ/L (21-32); CHLORIDE LEVEL 108 MEQ/L (98-107); CREATININE FOR GFR 1.06 MG/DL (0.55-1.30); GLOMERULAR FILTRATION RATE > 60.0 (>60); GLUCOSE, FASTING 101 MG/DL (70-100); POTASSIUM SERUM 3.3 MEQ/L (3.5-5.1); SODIUM LEVEL 145 MEQ/L (136-145)
[2021-10-24] MEDS: IPRATROPIUM 0.5MG/ALBUTEROL 2.5MG INH SOL UD 3ML (DUONEB) NEB SCH ×4 (07:56→19:44)
[2021-10-24] MEDS: LACTOBACILLUS ACIDOPHILUS CAP (BACID) PO SCH ×2 (09:13→17:03)
[2021-10-24] MEDS: GABAPENTIN 400MG CAP PO SCH ×3 (09:13→20:29)
[2021-10-24] MEDS: METHADONE 10MG TAB PO SCH (09:13)
[2021-10-24] MEDS: VENLAFAXINE 25 MG TAB PO SCH ×3 (09:13→20:29)
[2021-10-24] MEDS: OLANZapine 5 MG TAB PO SCH ×3 (09:13→20:29)
[2021-10-24] MEDS: VANICREAM MOISTURIZING SKIN CREAM 113GM TUBE TOP SCH ×2 (09:14→20:31)
[2021-10-24] MEDS: ENOXAPARIN 40MG/0.4ML SYRINGE (J1650 PER 10MG) SC SCH ×2 (09:14→20:30)
[2021-10-24] MEDS ORDERED: AMOX875T2 PO (10:38)
[2021-10-24] MEDS: AUGMENTIN 875 MG TAB PO SCH ×2 (11:18→20:29)
[2021-10-24] MEDS: QUEtiapine FUMARATE 50MG TAB PO SCH (20:29)
[2021-10-24] MEDS: ACETAMINOPHEN TAB 650MG DOSE (2X325MG) PO PRN (20:30)
[2021-10-25 06:04] VITALS: BP 128/97
[2021-10-25] MEDS: LEVOTHYROXINE 150MCG TABLET (0.15MG) PO SCH (06:10)
[2021-10-25] MEDS: SODIUM CHLORIDE 0.9% INJ 10 ML SYR IV SCH ×2 (06:11→17:28)
[2021-10-25 06:34] LABS: HEMATOCRIT 31.2 % (36.0-47.0); HEMOGLOBIN 9.4 g/dl (12.0-15.5); MEAN CORPUSCULAR HEMOGLOBIN 28.4 pg (27.0-33.0); MEAN CORPUSCULAR HGB CONC 30.1 g/dl (32.0-36.5); MEAN CORPUSCULAR VOLUME 94.3 fl (80.0-96.0); PLATELET COUNT, AUTOMATED 186 10^3/uL (150-450); RED BLOOD COUNT 3.31 10^6/uL (4.00-5.40)
[2021-10-25 07:16] LABS: BLOOD UREA NITROGEN 8 MG/DL (7-18); CALCIUM LEVEL 9.5 MG/DL (8.5-10.1); CARBON DIOXIDE LEVEL 32 MEQ/L (21-32); CHLORIDE LEVEL 107 MEQ/L (98-107); CREATININE FOR GFR 0.98 MG/DL (0.55-1.30); GLOMERULAR FILTRATION RATE > 60.0 (>60); GLUCOSE, FASTING 82 MG/DL (70-100); POTASSIUM SERUM 3.6 MEQ/L (3.5-5.1); SODIUM LEVEL 143 MEQ/L (136-145)
[2021-10-25] MEDS: IPRATROPIUM 0.5MG/ALBUTEROL 2.5MG INH SOL UD 3ML (DUONEB) NEB SCH ×4 (07:18→20:07)
[2021-10-25] MEDS: METHADONE 10MG TAB PO SCH (09:43)
[2021-10-25] MEDS: ENOXAPARIN 40MG/0.4ML SYRINGE (J1650 PER 10MG) SC SCH ×2 (09:45→20:19)
[2021-10-25] MEDS: OLANZapine 5 MG TAB PO SCH ×3 (09:46→20:18)
[2021-10-25] MEDS: VENLAFAXINE 25 MG TAB PO SCH ×3 (09:46→20:18)
[2021-10-25] MEDS: GABAPENTIN 400MG CAP PO SCH ×3 (09:47→20:19)
[2021-10-25] MEDS: AUGMENTIN 875 MG TAB PO SCH ×2 (09:47→20:18)
[2021-10-25] MEDS: VANICREAM MOISTURIZING SKIN CREAM 113GM TUBE TOP SCH ×2 (09:48→20:19)
[2021-10-25] MEDS: LACTOBACILLUS ACIDOPHILUS CAP (BACID) PO SCH ×2 (09:48→17:28)
[2021-10-25] MEDS: QUEtiapine FUMARATE 50MG TAB PO SCH (20:19)
[2021-10-26] MEDS: SODIUM CHLORIDE 0.9% INJ 10 ML SYR IV SCH ×2 (05:45→17:52)
[2021-10-26] MEDS: LEVOTHYROXINE 150MCG TABLET (0.15MG) PO SCH (05:46)
[2021-10-26 05:47] VITALS: BP 131/95
[2021-10-26] MEDS: IPRATROPIUM 0.5MG/ALBUTEROL 2.5MG INH SOL UD 3ML (DUONEB) NEB SCH ×4 (07:13→19:13)
[2021-10-26] MEDS: GABAPENTIN 400MG CAP PO SCH ×3 (08:20→20:42)
[2021-10-26] MEDS: AUGMENTIN 875 MG TAB PO SCH ×2 (08:20→20:42)
[2021-10-26] MEDS: OLANZapine 5 MG TAB PO SCH ×3 (08:21→20:42)
[2021-10-26] MEDS: LACTOBACILLUS ACIDOPHILUS CAP (BACID) PO SCH ×2 (08:21→17:51)
[2021-10-26] MEDS: VENLAFAXINE 25 MG TAB PO SCH ×3 (08:21→20:43)
[2021-10-26] MEDS: ENOXAPARIN 40MG/0.4ML SYRINGE (J1650 PER 10MG) SC SCH ×2 (08:22→20:43)
[2021-10-26] MEDS: METHADONE 10MG TAB PO SCH (08:22)
[2021-10-26] MEDS: VANICREAM MOISTURIZING SKIN CREAM 113GM TUBE TOP SCH ×2 (08:28→20:44)
[2021-10-26] MEDS: QUEtiapine FUMARATE 50MG TAB PO SCH (20:42)
[2021-10-27] MEDS: SODIUM CHLORIDE 0.9% INJ 10 ML SYR IV SCH ×2 (05:13→17:03)
[2021-10-27] MEDS: LEVOTHYROXINE 150MCG TABLET (0.15MG) PO SCH (05:13)
[2021-10-27] MEDS: SODIUM CHLORIDE 0.9% INJ 10 ML SYR IV PRN (05:14)
[2021-10-27 06:00] VITALS: BP 133/95
[2021-10-27] MEDS: IPRATROPIUM 0.5MG/ALBUTEROL 2.5MG INH SOL UD 3ML (DUONEB) NEB SCH ×4 (07:19→20:00)
[2021-10-27] MEDS: LACTOBACILLUS ACIDOPHILUS CAP (BACID) PO SCH ×2 (08:06→17:02)
[2021-10-27] MEDS: GABAPENTIN 400MG CAP PO SCH ×3 (08:06→20:16)
[2021-10-27] MEDS: ENOXAPARIN 40MG/0.4ML SYRINGE (J1650 PER 10MG) SC SCH ×2 (08:07→20:17)
[2021-10-27] MEDS: METHADONE 10MG TAB PO SCH (08:07)
[2021-10-27] MEDS: OLANZapine 5 MG TAB PO SCH ×3 (08:07→20:16)
[2021-10-27] MEDS: VENLAFAXINE 25 MG TAB PO SCH ×3 (08:07→20:16)
[2021-10-27] MEDS: AUGMENTIN 875 MG TAB PO SCH ×2 (08:07→20:16)
[2021-10-27] MEDS: VANICREAM MOISTURIZING SKIN CREAM 113GM TUBE TOP SCH ×2 (08:08→20:17)
[2021-10-27] MEDS ORDERED: OMEPRAZOLE 20MG CAP PO ONE (13:35)
[2021-10-27] MEDS: NYSTATIN 500,000 U/5 ML SUSP UDC SS SCH ×3 (14:26→20:16)
[2021-10-27] MEDS ORDERED: FLUCONAZOLE 100 MG TAB PO ONE (15:00)
[2021-10-27] MEDS: QUEtiapine FUMARATE 50MG TAB PO SCH (20:16)
[2021-10-28] MEDS: SODIUM CHLORIDE 0.9% INJ 10 ML SYR IV SCH ×2 (05:22→17:02)
[2021-10-28] MEDS: LEVOTHYROXINE 150MCG TABLET (0.15MG) PO SCH (05:23)
[2021-10-28] MEDS: SODIUM CHLORIDE 0.9% INJ 10 ML SYR IV PRN (05:24)
[2021-10-28 06:00] VITALS: BP 112/74
[2021-10-28] MEDS: IPRATROPIUM 0.5MG/ALBUTEROL 2.5MG INH SOL UD 3ML (DUONEB) NEB SCH ×4 (07:10→20:25)
[2021-10-28] MEDS: NYSTATIN 500,000 U/5 ML SUSP UDC SS SCH ×4 (09:35→21:44)
[2021-10-28] MEDS: VENLAFAXINE 25 MG TAB PO SCH ×3 (09:35→21:44)
[2021-10-28] MEDS: FLUCONAZOLE 100 MG TAB PO SCH (09:35)
[2021-10-28] MEDS: OMEPRAZOLE 20MG CAP PO SCH (09:35)
[2021-10-28] MEDS: LACTOBACILLUS ACIDOPHILUS CAP (BACID) PO SCH ×2 (09:35→17:01)
[2021-10-28] MEDS: AUGMENTIN 875 MG TAB PO SCH ×2 (09:35→21:44)
[2021-10-28] MEDS: ENOXAPARIN 40MG/0.4ML SYRINGE (J1650 PER 10MG) SC SCH ×2 (09:36→21:45)
[2021-10-28] MEDS: GABAPENTIN 400MG CAP PO SCH ×3 (09:36→21:44)
[2021-10-28] MEDS: OLANZapine 5 MG TAB PO SCH ×3 (09:36→21:44)
[2021-10-28] MEDS: VANICREAM MOISTURIZING SKIN CREAM 113GM TUBE TOP SCH ×2 (09:37→21:46)
[2021-10-28] MEDS: METHADONE 10MG TAB PO SCH (10:57)
[2021-10-28] MEDS: QUEtiapine FUMARATE 50MG TAB PO SCH (21:44)
[2021-10-29 02:01] VITALS: BP 125/73
[2021-10-29] MEDS: LEVOTHYROXINE 150MCG TABLET (0.15MG) PO SCH (06:08)
[2021-10-29] MEDS: SODIUM CHLORIDE 0.9% INJ 10 ML SYR IV SCH ×2 (06:09→18:15)
[2021-10-29] MEDS: IPRATROPIUM 0.5MG/ALBUTEROL 2.5MG INH SOL UD 3ML (DUONEB) NEB SCH ×4 (07:09→20:05)
[2021-10-29] MEDS: LACTOBACILLUS ACIDOPHILUS CAP (BACID) PO SCH ×2 (08:59→18:16)
[2021-10-29] MEDS: AUGMENTIN 875 MG TAB PO SCH (08:59)
[2021-10-29] MEDS: METHADONE 10MG TAB PO SCH (08:59)
[2021-10-29] MEDS: ENOXAPARIN 40MG/0.4ML SYRINGE (J1650 PER 10MG) SC SCH ×2 (08:59→20:13)
[2021-10-29] MEDS: NYSTATIN 500,000 U/5 ML SUSP UDC SS SCH ×4 (08:59→20:39)
[2021-10-29] MEDS: FLUCONAZOLE 100 MG TAB PO SCH (09:00)
[2021-10-29] MEDS: VANICREAM MOISTURIZING SKIN CREAM 113GM TUBE TOP SCH ×2 (09:00→20:39)
[2021-10-29] MEDS: OMEPRAZOLE 20MG CAP PO SCH (09:00)
[2021-10-29] MEDS: OLANZapine 5 MG TAB PO SCH ×3 (09:00→20:39)
[2021-10-29] MEDS: GABAPENTIN 400MG CAP PO SCH ×3 (09:00→20:39)
[2021-10-29] MEDS: VENLAFAXINE 25 MG TAB PO SCH ×3 (10:26→20:39)
[2021-10-29] MEDS: ACETAMINOPHEN TAB 650MG DOSE (2X325MG) PO PRN (18:14)
[2021-10-29] MEDS: QUEtiapine FUMARATE 50MG TAB PO SCH (20:39)
[2021-10-30] MEDS: LEVOTHYROXINE 150MCG TABLET (0.15MG) PO SCH (05:20)
[2021-10-30] MEDS: SODIUM CHLORIDE 0.9% INJ 10 ML SYR IV SCH (05:20)
[2021-10-30 06:00] VITALS: BP 139/86
[2021-10-30] MEDS: ACETAMINOPHEN TAB 650MG DOSE (2X325MG) PO PRN (06:11)
[2021-10-30] MEDS: IPRATROPIUM 0.5MG/ALBUTEROL 2.5MG INH SOL UD 3ML (DUONEB) NEB SCH ×2 (07:33→11:20)
[2021-10-30] MEDS: METHADONE 10MG TAB PO SCH (08:33)
[2021-10-30] MEDS: GABAPENTIN 400MG CAP PO SCH (08:33)
[2021-10-30] MEDS: LACTOBACILLUS ACIDOPHILUS CAP (BACID) PO SCH (08:33)
[2021-10-30] MEDS: OMEPRAZOLE 20MG CAP PO SCH (08:33)
[2021-10-30] MEDS: FLUCONAZOLE 100 MG TAB PO SCH (08:33)
[2021-10-30] MEDS: VENLAFAXINE 25 MG TAB PO SCH (08:34)
[2021-10-30] MEDS: NYSTATIN 500,000 U/5 ML SUSP UDC SS SCH ×2 (08:34→12:32)
[2021-10-30] MEDS: OLANZapine 5 MG TAB PO SCH (08:34)
[2021-10-30] MEDS: VANICREAM MOISTURIZING SKIN CREAM 113GM TUBE TOP SCH (08:34)
[2021-10-30] MEDS: ENOXAPARIN 40MG/0.4ML SYRINGE (J1650 PER 10MG) SC SCH (08:34)
[2021-10-30] MEDS ORDERED: PRED10TA2 PO (10:48)
[2021-10-31] MEDS ORDERED: AMOX875T2 PO (03:04)
== END 2021-10-30 13:00 | disposition home health service (06) | DRG 98 ==
LOC: M ED 14:53 → M ED INP 17:33 → ENRESERV 17:50 → M ICU 19:36 → M MS5PR 10-18 14:50
PROVIDERS: ADMIT Internal Medicine Pulmonary Disease; ATTEND Internal Medicine
PROC: 0BH17EZ Insertion of Endotracheal Airway into Trachea, Via Natural or Artificial Opening (ICD-10-PCS; 2021-10-13)
PROC: 5A1945Z Respiratory Ventilation, 24-96 Consecutive Hours (ICD-10-PCS; 2021-10-13)
PROC: 0B110F4 Bypass Trachea to Cutaneous with Tracheostomy Device, Open Approach (ICD-10-PCS; principal; 2021-10-16 11:00)
PROC: 05HB33Z Insertion of Infusion Device into Right Basilic Vein, Percutaneous Approach (ICD-10-PCS; 2021-10-22)
DX: J38.6 Stenosis of larynx (principal); J96.01 Acute respiratory failure with hypoxia; N17.9 Acute kidney failure, unspecified; D69.6 Thrombocytopenia, unspecified; E66.2 Morbid (severe) obesity with alveolar hypoventilation; B37.81 Candidal esophagitis; J96.02 Acute respiratory failure with hypercapnia; I27.20 Pulmonary hypertension, unspecified; F25.9 Schizoaffective disorder, unspecified; Z68.42 Body mass index [BMI] 45.0-49.9, adult; J38.02 Paralysis of vocal cords and larynx, bilateral; F32.A Depression, unspecified; F41.9 Anxiety disorder, unspecified; Z91.51 Personal history of suicidal behavior; F17.210 Nicotine dependence, cigarettes, uncomplicated; F11.21 Opioid dependence, in remission; J45.909 Unspecified asthma, uncomplicated; E03.9 Hypothyroidism, unspecified; I51.7 Cardiomegaly; D64.9 Anemia, unspecified; N89.8 Other specified noninflammatory disorders of vagina; Z79.890 Hormone replacement therapy; Z79.899 Other long term (current) drug therapy

== ENCOUNTER 2021-10-30 21:13 | Inpatient (IN) | payer OTHER ==
[~2021-10-30] VITALS: Ht 160 cm; Wt 117.6 kg
[~2021-10-30 21:13] MED LIST changes: +AMMO12LO TOP; +AMOX875T2 PO
[2021-10-30 22:17] LABS: HEMATOCRIT 31.7 % (36.0-47.0); HEMOGLOBIN 9.3 g/dl (12.0-15.5); MEAN CORPUSCULAR HEMOGLOBIN 28.4 pg (27.0-33.0); MEAN CORPUSCULAR HGB CONC 29.3 g/dl (32.0-36.5); MEAN CORPUSCULAR VOLUME 96.6 fl (80.0-96.0); PLATELET COUNT, AUTOMATED 129 10^3/uL (150-450); RED BLOOD COUNT 3.28 10^6/uL (4.00-5.40); WHITE BLOOD COUNT 7.2 10^3/uL (4.0-10.0)
[2021-10-30 22:18] LABS: VENOUS BASE EXCESS -4.9 (-2.0-2.0); VENOUS HCO3 21.7 MEQ/L (23.0-27.0); VENOUS O2 SATURATION 98.3 % (60.0-80.0); VENOUS PARTIAL PRESSURE CO2 46.7 mmHg (38.0-50.0); VENOUS PARTIAL PRESSURE O2 130.1 mmHg (30.0-50.0); VENOUS PH 7.285 UNITS (7.330-7.430); VENOUS STANDARD HCO3 20.4 MEQ/L; VENOUS TOTAL CO2 23.1 MEQ/L (24.0-28.0)
[2021-10-30 22:31] LABS: ABG BASE EXCESS -1.3 (-2.0-2.0); ABG HCO3 24.9 MEQ/L (22.0-26.0); ABG O2 SATURATION 95.7 % (95.0-99.0); ABG PARTIAL PRESSURE CO2 48.3 mmHg (35.0-45.0); ABG PARTIAL PRESSURE O2 86.5 mmHg (75.0-100.0); ABG STANDARD HCO3 23.4 MEQ/L (22.0-26.0); ABG TOTAL CO2 26.4 MEQ/L (22.0-29.0)
[2021-10-30 23:03] LABS: CK-MB VALUE MASS 1.8 NG/ML (<3.6); MB/CK RELATIVE INDEX 2.02 (< OR =4)
[2021-10-30 23:15] LABS: ANISOCYTOSIS 1+; LYMPHOCYTES 4 % (16-44); METAMYELOCYTES 3 % (0-0); MONOCYTES 4 % (0-5); NEUTROPHILS 87 % (28-66); PLATELET ESTIMATE NORMAL (NORMAL)
[2021-10-30 23:17] LABS: POLYCHROMASIA 1+; TEAR DROP CELLS 1+
[2021-10-30 23:18] LABS: HYPOCHROMASIA 2+
[2021-10-30 23:38] LABS: ALBUMIN 3.3 GM/DL (3.2-5.2); ALT/SGPT 126 U/L (12-78); BILIRUBIN,DIRECT < 0.1 MG/DL (0.0-0.2); BILIRUBIN,TOTAL 0.3 MG/DL (0.2-1.0); BLOOD UREA NITROGEN 9 MG/DL (7-18); CALCIUM LEVEL 8.1 MG/DL (8.5-10.1); CARBON DIOXIDE LEVEL 23 MEQ/L (21-32); CHLORIDE LEVEL 105 MEQ/L (98-107); CREATININE FOR GFR 1.45 MG/DL (0.55-1.30); GLOMERULAR FILTRATION RATE 42.8 (>60); GLUCOSE, FASTING 264 MG/DL (70-100); NT-PRO BNP 102 PG/ML (<125); POTASSIUM SERUM 4.8 MEQ/L (3.5-5.1); SODIUM LEVEL 141 MEQ/L (136-145); THYROID STIMULATING HORMONE 0.926 uIU/ML (0.358-3.740); THYROXINE (T4) 8.4 UG/DL (4.5-12.0); TOTAL PROTEIN 6.7 GM/DL (6.4-8.2)
[2021-10-31] MEDS ORDERED: NS 3,000 ML in IV 1 EA IV ONE (01:30)
[2021-10-31] MEDS ORDERED: cefTRIAXone SOD 2 GM in D5W MINI-BAG PLUS 50 ML IV ONE (02:00)
[2021-10-31] MEDS ORDERED: AMOX875T2 PO (03:04)
[2021-10-31] MEDS ORDERED: HOME MED LIST COMPLETE! XX SCH (03:05)
[2021-10-31] MEDS: QUEtiapine FUMARATE 50MG TAB PO SCH ×2 (04:13→21:35)
[2021-10-31 05:00] VITALS: BP 106/64
[2021-10-31] MEDS: HEPARIN SOD (PORCINE) 5000UNITS/ML 1ML VIAL/SYRINGE SC SCH ×3 (05:26→21:35)
[2021-10-31] MEDS: LEVOTHYROXINE 150MCG TABLET (0.15MG) PO SCH (05:26)
[2021-10-31 06:00] VITALS: BP 119/70
[2021-10-31] MEDS ORDERED: DOXYCYCLINE HYCLATE 100MG TABLET PO SCH (06:00)
[2021-10-31] MEDS ORDERED: NS 1,000 ML IV SCH (06:20)
[2021-10-31 06:42] LABS: HEMATOCRIT 29.7 % (36.0-47.0); HEMOGLOBIN 8.6 g/dl (12.0-15.5); MEAN CORPUSCULAR HEMOGLOBIN 27.2 pg (27.0-33.0); PLATELET COUNT, AUTOMATED 135 10^3/uL (150-450); RED BLOOD COUNT 3.16 10^6/uL (4.00-5.40)
[2021-10-31 07:22] LABS: BASOPHILS 1 % (0-1); EOSINOPHILS 1 % (0-3); LYMPHOCYTES 17 % (16-44); METAMYELOCYTES 2 % (0-0); MONOCYTES 5 % (0-5); NEUTROPHILS 73 % (28-66)
[2021-10-31 07:23] LABS: MICROCYTOSIS 1+; TEAR DROP CELLS 4+
[2021-10-31 07:24] LABS: OVALOCYTES 2+
[2021-10-31 07:25] LABS: PLATELET ESTIMATE DECREASED (NORMAL)
[2021-10-31 07:27] LABS: BLOOD UREA NITROGEN 10 MG/DL (7-18); CALCIUM LEVEL 8.2 MG/DL (8.5-10.1); CARBON DIOXIDE LEVEL 28 MEQ/L (21-32); CHLORIDE LEVEL 108 MEQ/L (98-107); CREATININE FOR GFR 0.95 MG/DL (0.55-1.30); GLOMERULAR FILTRATION RATE > 60.0 (>60); GLUCOSE, FASTING 119 MG/DL (70-100); SODIUM LEVEL 143 MEQ/L (136-145)
[2021-10-31] MEDS: OLANZapine 5 MG TAB PO SCH ×3 (08:59→21:35)
[2021-10-31] MEDS: METHADONE 10MG TAB PO SCH (08:59)
[2021-10-31] MEDS: VENLAFAXINE **XR** 75MG CAPSULE PO SCH (09:00)
[2021-10-31] MEDS ORDERED: GABAPENTIN 400MG CAP PO SCH (09:00)
[2021-10-31] MEDS: GABAPENTIN 300 MG CAP PO SCH ×3 (09:00→21:35)
[2021-10-31 10:00] VITALS: BP 128/83
[2021-10-31] MEDS ORDERED: CALCIUM CARBONATE 500 MG CHEW U/D PO PRN (10:15)
[2021-10-31] MEDS: guaiFENesin ER 600 MG TAB PO SCH ×2 (10:25→21:35)
[2021-10-31] MEDS: SODIUM CHLORIDE HYPERTONIC 3% 15ML NEB SOL INH SCH ×2 (13:24→19:52)
[2021-10-31 14:00] VITALS: BP 121/80
[2021-10-31] MEDS ORDERED: LIDOCAINE 1% MDV 20ML VIAL As Ordered ONE (15:49)
[2021-10-31] MEDS: DOXYCYCLINE HYCLATE 100 MG in D5W MINI-BAG PLUS 100 ML IV SCH (17:44)
[2021-10-31] MEDS ORDERED: SODIUM CHLORIDE 0.9% INJ 10 ML SYR IV SCH (19:05)
[2021-10-31] MEDS: IPRATROPIUM 0.5MG/ALBUTEROL 2.5MG INH SOL UD 3ML (DUONEB) NEB PRN (19:52)
[2021-10-31] MEDS ORDERED: NS 1,000 ML IV ONE (21:35)
[2021-10-31 22:00] VITALS: BP 122/80
[2021-11-01] MEDS: SODIUM CHLORIDE HYPERTONIC 3% 15ML NEB SOL INH SCH ×4 (01:23→20:26)
[2021-11-01] MEDS: cefTRIAXone SOD 1 GM in D5W MINI-BAG PLUS 50 ML IV SCH (01:55)
[2021-11-01 02:00] VITALS: BP 150/100
[2021-11-01 05:26] LABS: HEMATOCRIT 29.9 % (36.0-47.0); HEMOGLOBIN 8.8 g/dl (12.0-15.5); MEAN CORPUSCULAR HEMOGLOBIN 28.1 pg (27.0-33.0); MEAN CORPUSCULAR HGB CONC 29.4 g/dl (32.0-36.5); MEAN CORPUSCULAR VOLUME 95.5 fl (80.0-96.0); PLATELET COUNT, AUTOMATED 125 10^3/uL (150-450); RED BLOOD COUNT 3.13 10^6/uL (4.00-5.40); WHITE BLOOD COUNT 6.2 10^3/uL (4.0-10.0)
[2021-11-01 05:44] LABS: BLOOD UREA NITROGEN 10 MG/DL (7-18); CALCIUM LEVEL 8.9 MG/DL (8.5-10.1); CARBON DIOXIDE LEVEL 25 MEQ/L (21-32); CHLORIDE LEVEL 110 MEQ/L (98-107); CREATININE FOR GFR 1.01 MG/DL (0.55-1.30); GLOMERULAR FILTRATION RATE > 60.0 (>60); GLUCOSE, FASTING 102 MG/DL (70-100); SODIUM LEVEL 142 MEQ/L (136-145)
[2021-11-01] MEDS: DOXYCYCLINE HYCLATE 100 MG in D5W MINI-BAG PLUS 100 ML IV SCH ×2 (05:51→17:48)
[2021-11-01] MEDS: HEPARIN SOD (PORCINE) 5000UNITS/ML 1ML VIAL/SYRINGE SC SCH ×3 (05:52→22:14)
[2021-11-01] MEDS: LEVOTHYROXINE 150MCG TABLET (0.15MG) PO SCH (05:52)
[2021-11-01 06:00] VITALS: BP 142/84
[2021-11-01] MEDS: IPRATROPIUM 0.5MG/ALBUTEROL 2.5MG INH SOL UD 3ML (DUONEB) NEB PRN ×3 (07:32→20:26)
[2021-11-01] MEDS ORDERED: SODIUM CHLORIDE 0.9% INJ 10 ML SYR IV PRN (09:00)
[2021-11-01] MEDS: guaiFENesin ER 600 MG TAB PO SCH ×2 (09:36→22:14)
[2021-11-01] MEDS: VENLAFAXINE **XR** 75MG CAPSULE PO SCH (09:36)
[2021-11-01] MEDS: GABAPENTIN 300 MG CAP PO SCH ×3 (09:37→22:14)
[2021-11-01] MEDS: OLANZapine 5 MG TAB PO SCH ×3 (09:37→22:14)
[2021-11-01] MEDS: METHADONE 10MG TAB PO SCH (09:37)
[2021-11-01 10:00] VITALS: BP 135/86
[2021-11-01 14:00] VITALS: BP 123/81
[2021-11-01] MEDS: ACETAMINOPHEN TAB 650MG DOSE (2X325MG) PO PRN (15:14)
[2021-11-01] MEDS: SODIUM CHLORIDE 0.9% INJ 10 ML SYR IV SCH (15:15)
[2021-11-01 20:03] VITALS: BP 123/80
[2021-11-01] MEDS: QUEtiapine FUMARATE 50MG TAB PO SCH (22:14)
[2021-11-02] MEDS: ACETAMINOPHEN TAB 650MG DOSE (2X325MG) PO PRN ×2 (01:03→08:34)
[2021-11-02] MEDS: cefTRIAXone SOD 1 GM in D5W MINI-BAG PLUS 50 ML IV SCH (02:05)
[2021-11-02] MEDS: IPRATROPIUM 0.5MG/ALBUTEROL 2.5MG INH SOL UD 3ML (DUONEB) NEB PRN (02:31)
[2021-11-02] MEDS: SODIUM CHLORIDE HYPERTONIC 3% 15ML NEB SOL INH SCH ×4 (02:31→18:38)
[2021-11-02] MEDS: LEVOTHYROXINE 150MCG TABLET (0.15MG) PO SCH (06:03)
[2021-11-02] MEDS: HEPARIN SOD (PORCINE) 5000UNITS/ML 1ML VIAL/SYRINGE SC SCH ×3 (06:04→21:25)
[2021-11-02] MEDS: DOXYCYCLINE HYCLATE 100 MG in D5W MINI-BAG PLUS 100 ML IV SCH ×2 (06:05→17:39)
[2021-11-02 06:07] VITALS: BP 120/68
[2021-11-02] MEDS: SODIUM CHLORIDE 0.9% INJ 10 ML SYR IV SCH ×2 (06:36→17:42)
[2021-11-02 07:54] LABS: HEMOGLOBIN 9.3 g/dl (12.0-15.5); MEAN CORPUSCULAR HEMOGLOBIN 27.8 pg (27.0-33.0); MEAN CORPUSCULAR HGB CONC 29.1 g/dl (32.0-36.5); MEAN CORPUSCULAR VOLUME 95.5 fl (80.0-96.0); PLATELET COUNT, AUTOMATED 138 10^3/uL (150-450); RED BLOOD COUNT 3.35 10^6/uL (4.00-5.40)
[2021-11-02 08:00] VITALS: BP 122/69
[2021-11-02 08:13] LABS: BLOOD UREA NITROGEN 10 MG/DL (7-18); C REACTIVE PROTEIN QUANTITATIV 5.34 MG/DL (0.00-0.30); CARBON DIOXIDE LEVEL 28 MEQ/L (21-32); CHLORIDE LEVEL 109 MEQ/L (98-107); CREATININE FOR GFR 1.04 MG/DL (0.55-1.30); GLOMERULAR FILTRATION RATE > 60.0 (>60); GLUCOSE, FASTING 108 MG/DL (70-100); POTASSIUM SERUM 4.2 MEQ/L (3.5-5.1); SODIUM LEVEL 141 MEQ/L (136-145)
[2021-11-02 08:19] LABS: ERYTHROCYTE SEDIMENTATION RATE 40 mm/hr (0-20)
[2021-11-02] MEDS: OLANZapine 5 MG TAB PO SCH ×3 (10:09→20:22)
[2021-11-02] MEDS: GABAPENTIN 300 MG CAP PO SCH ×3 (10:09→20:22)
[2021-11-02] MEDS: VENLAFAXINE **XR** 75MG CAPSULE PO SCH (10:10)
[2021-11-02] MEDS: METHADONE 10MG TAB PO SCH (10:10)
[2021-11-02] MEDS: guaiFENesin ER 600 MG TAB PO SCH ×2 (10:10→20:22)
[2021-11-02 14:00] VITALS: BP 123/72
[2021-11-02 18:00] VITALS: BP 129/85
[2021-11-02] MEDS: QUEtiapine FUMARATE 50MG TAB PO SCH (20:22)
[2021-11-02 22:00] VITALS: BP 117/79
[2021-11-03] MEDS: cefTRIAXone SOD 1 GM in D5W MINI-BAG PLUS 50 ML IV SCH (01:43)
[2021-11-03] MEDS: SODIUM CHLORIDE HYPERTONIC 3% 15ML NEB SOL INH SCH ×4 (01:44→19:43)
[2021-11-03 02:00] VITALS: BP 115/80
[2021-11-03] MEDS: SODIUM CHLORIDE 0.9% INJ 10 ML SYR IV PRN ×2 (02:23→05:34)
[2021-11-03] MEDS: ACETAMINOPHEN TAB 650MG DOSE (2X325MG) PO PRN ×3 (04:32→14:30)
[2021-11-03] MEDS: LEVOTHYROXINE 150MCG TABLET (0.15MG) PO SCH (05:33)
[2021-11-03] MEDS: DOXYCYCLINE HYCLATE 100 MG in D5W MINI-BAG PLUS 100 ML IV SCH ×3 (05:34→16:55)
[2021-11-03] MEDS: HEPARIN SOD (PORCINE) 5000UNITS/ML 1ML VIAL/SYRINGE SC SCH ×4 (05:35→22:00)
[2021-11-03 06:00] VITALS: BP 132/95
[2021-11-03] MEDS: SODIUM CHLORIDE 0.9% INJ 10 ML SYR IV SCH ×2 (06:00→18:43)
[2021-11-03 07:39] LABS: HEMATOCRIT 30.5 % (36.0-47.0); HEMOGLOBIN 9.1 g/dl (12.0-15.5); MEAN CORPUSCULAR HEMOGLOBIN 27.5 pg (27.0-33.0); MEAN CORPUSCULAR HGB CONC 29.8 g/dl (32.0-36.5); MEAN CORPUSCULAR VOLUME 92.1 fl (80.0-96.0); PLATELET COUNT, AUTOMATED 124 10^3/uL (150-450); RED BLOOD COUNT 3.31 10^6/uL (4.00-5.40); WHITE BLOOD COUNT 5.1 10^3/uL (4.0-10.0)
[2021-11-03 07:57] LABS: BLOOD UREA NITROGEN 7 MG/DL (7-18); CALCIUM LEVEL 8.6 MG/DL (8.5-10.1); CARBON DIOXIDE LEVEL 25 MEQ/L (21-32); CHLORIDE LEVEL 109 MEQ/L (98-107); CREATININE FOR GFR 1.07 MG/DL (0.55-1.30); GLOMERULAR FILTRATION RATE > 60.0 (>60); GLUCOSE, FASTING 148 MG/DL (70-100); POTASSIUM SERUM 3.9 MEQ/L (3.5-5.1); SODIUM LEVEL 142 MEQ/L (136-145)
[2021-11-03] MEDS: METHADONE 10MG TAB PO SCH (07:58)
[2021-11-03] MEDS: VENLAFAXINE **XR** 75MG CAPSULE PO SCH (07:59)
[2021-11-03] MEDS: GABAPENTIN 300 MG CAP PO SCH ×3 (07:59→21:51)
[2021-11-03] MEDS: guaiFENesin ER 600 MG TAB PO SCH ×2 (08:00→21:51)
[2021-11-03] MEDS: OLANZapine 5 MG TAB PO SCH ×3 (08:05→21:51)
[2021-11-03 10:00] VITALS: BP 115/76
[2021-11-03 14:00] VITALS: BP 123/81
[2021-11-03] MEDS: QUEtiapine FUMARATE 50MG TAB PO SCH (21:51)
[2021-11-03 22:00] VITALS: BP 125/78
[2021-11-04] MEDS: cefTRIAXone SOD 1 GM in D5W MINI-BAG PLUS 50 ML IV SCH (01:11)
[2021-11-04] MEDS: SODIUM CHLORIDE 0.9% INJ 10 ML SYR IV PRN ×2 (01:56→06:18)
[2021-11-04 02:00] VITALS: BP 120/75
[2021-11-04] MEDS: SODIUM CHLORIDE HYPERTONIC 3% 15ML NEB SOL INH SCH ×4 (02:02→19:43)
[2021-11-04] MEDS: LEVOTHYROXINE 150MCG TABLET (0.15MG) PO SCH (05:02)
[2021-11-04] MEDS: DOXYCYCLINE HYCLATE 100 MG in D5W MINI-BAG PLUS 100 ML IV SCH (05:02)
[2021-11-04] MEDS: HEPARIN SOD (PORCINE) 5000UNITS/ML 1ML VIAL/SYRINGE SC SCH ×3 (05:40→21:51)
[2021-11-04 06:00] VITALS: BP 121/81
[2021-11-04] MEDS: SODIUM CHLORIDE 0.9% INJ 10 ML SYR IV SCH ×2 (06:17→16:39)
[2021-11-04 06:22] LABS: HEMATOCRIT 29.2 % (36.0-47.0); HEMOGLOBIN 8.7 g/dl (12.0-15.5); MEAN CORPUSCULAR HEMOGLOBIN 28.1 pg (27.0-33.0); MEAN CORPUSCULAR HGB CONC 29.8 g/dl (32.0-36.5); MEAN CORPUSCULAR VOLUME 94.2 fl (80.0-96.0); PLATELET COUNT, AUTOMATED 110 10^3/uL (150-450)
[2021-11-04 06:48] LABS: BLOOD UREA NITROGEN 9 MG/DL (7-18); CALCIUM LEVEL 8.4 MG/DL (8.5-10.1); CARBON DIOXIDE LEVEL 31 MEQ/L (21-32); CHLORIDE LEVEL 106 MEQ/L (98-107); CREATININE FOR GFR 0.89 MG/DL (0.55-1.30); GLOMERULAR FILTRATION RATE > 60.0 (>60); GLUCOSE, FASTING 120 MG/DL (70-100); POTASSIUM SERUM 3.8 MEQ/L (3.5-5.1); SODIUM LEVEL 140 MEQ/L (136-145)
[2021-11-04] MEDS: VENLAFAXINE **XR** 75MG CAPSULE PO SCH (09:15)
[2021-11-04] MEDS: METHADONE 10MG TAB PO SCH (09:15)
[2021-11-04] MEDS: GABAPENTIN 300 MG CAP PO SCH ×3 (09:15→20:34)
[2021-11-04] MEDS: guaiFENesin ER 600 MG TAB PO SCH ×2 (09:15→20:34)
[2021-11-04] MEDS: OLANZapine 5 MG TAB PO SCH ×3 (09:15→20:34)
[2021-11-04 10:00] VITALS: BP 121/82
[2021-11-04] MEDS: IPRATROPIUM 0.5MG/ALBUTEROL 2.5MG INH SOL UD 3ML (DUONEB) NEB SCH ×2 (13:22→19:43)
[2021-11-04 14:00] VITALS: BP 130/86
[2021-11-04] MEDS: ACETAMINOPHEN TAB 650MG DOSE (2X325MG) PO PRN (14:35)
[2021-11-04 18:00] VITALS: BP 120/87
[2021-11-04] MEDS: DOXYCYCLINE HYCLATE 100MG TABLET PO SCH (20:34)
[2021-11-04] MEDS: QUEtiapine FUMARATE 50MG TAB PO SCH (20:34)
[2021-11-04 21:41] VITALS: BP 107/74
[2021-11-05] MEDS: IPRATROPIUM 0.5MG/ALBUTEROL 2.5MG INH SOL UD 3ML (DUONEB) NEB SCH ×4 (00:11→20:05)
[2021-11-05] MEDS: SODIUM CHLORIDE HYPERTONIC 3% 15ML NEB SOL INH SCH ×4 (00:11→20:05)
[2021-11-05] MEDS: cefTRIAXone SOD 1 GM in D5W MINI-BAG PLUS 50 ML IV SCH (01:43)
[2021-11-05] MEDS: SODIUM CHLORIDE 0.9% INJ 10 ML SYR IV PRN ×2 (02:53→06:27)
[2021-11-05 06:16] LABS: HEMOGLOBIN 8.6 g/dl (12.0-15.5); MEAN CORPUSCULAR HEMOGLOBIN 27.1 pg (27.0-33.0); MEAN CORPUSCULAR HGB CONC 28.7 g/dl (32.0-36.5); MEAN CORPUSCULAR VOLUME 94.6 fl (80.0-96.0); PLATELET COUNT, AUTOMATED 109 10^3/uL (150-450); RED BLOOD COUNT 3.17 10^6/uL (4.00-5.40); WHITE BLOOD COUNT 3.8 10^3/uL (4.0-10.0)
[2021-11-05] MEDS: LEVOTHYROXINE 150MCG TABLET (0.15MG) PO SCH (06:26)
[2021-11-05] MEDS: SODIUM CHLORIDE 0.9% INJ 10 ML SYR IV SCH ×2 (06:26→17:12)
[2021-11-05] MEDS: HEPARIN SOD (PORCINE) 5000UNITS/ML 1ML VIAL/SYRINGE SC SCH ×4 (06:26→21:48)
[2021-11-05 06:46] LABS: BLOOD UREA NITROGEN 6 MG/DL (7-18); CALCIUM LEVEL 8.5 MG/DL (8.5-10.1); CARBON DIOXIDE LEVEL 31 MEQ/L (21-32); CHLORIDE LEVEL 106 MEQ/L (98-107); CREATININE FOR GFR 0.85 MG/DL (0.55-1.30); GLOMERULAR FILTRATION RATE > 60.0 (>60); GLUCOSE, FASTING 147 MG/DL (70-100); POTASSIUM SERUM 3.9 MEQ/L (3.5-5.1); SODIUM LEVEL 141 MEQ/L (136-145)
[2021-11-05 06:53] VITALS: BP 121/84
[2021-11-05] MEDS: OLANZapine 5 MG TAB PO SCH ×3 (09:46→21:44)
[2021-11-05] MEDS: METHADONE 10MG TAB PO SCH (09:46)
[2021-11-05] MEDS: DOXYCYCLINE HYCLATE 100MG TABLET PO SCH ×2 (09:47→21:47)
[2021-11-05] MEDS: guaiFENesin ER 600 MG TAB PO SCH ×2 (09:48→21:44)
[2021-11-05] MEDS: GABAPENTIN 300 MG CAP PO SCH ×3 (09:48→21:44)
[2021-11-05] MEDS: VENLAFAXINE **XR** 75MG CAPSULE PO SCH (09:48)
[2021-11-05 14:00] VITALS: BP 124/84
[2021-11-05] MEDS: ACETAMINOPHEN TAB 650MG DOSE (2X325MG) PO PRN (18:45)
[2021-11-05] MEDS: QUEtiapine FUMARATE 50MG TAB PO SCH (21:44)
[2021-11-05 22:00] VITALS: BP 118/82
[2021-11-06 02:00] VITALS: BP 115/70
[2021-11-06] MEDS: IPRATROPIUM 0.5MG/ALBUTEROL 2.5MG INH SOL UD 3ML (DUONEB) NEB SCH ×4 (02:03→19:13)
[2021-11-06] MEDS: SODIUM CHLORIDE HYPERTONIC 3% 15ML NEB SOL INH SCH ×4 (02:04→19:13)
[2021-11-06] MEDS: cefTRIAXone SOD 1 GM in D5W MINI-BAG PLUS 50 ML IV SCH (02:36)
[2021-11-06] MEDS: SODIUM CHLORIDE 0.9% INJ 10 ML SYR IV SCH ×2 (04:24→17:55)
[2021-11-06] MEDS: HEPARIN SOD (PORCINE) 5000UNITS/ML 1ML VIAL/SYRINGE SC SCH ×3 (05:21→21:26)
[2021-11-06] MEDS: LEVOTHYROXINE 150MCG TABLET (0.15MG) PO SCH (05:21)
[2021-11-06 06:00] VITALS: BP 116/71
[2021-11-06 06:47] LABS: HEMATOCRIT 30.4 % (36.0-47.0); MEAN CORPUSCULAR HEMOGLOBIN 27.2 pg (27.0-33.0); MEAN CORPUSCULAR HGB CONC 29.6 g/dl (32.0-36.5); MEAN CORPUSCULAR VOLUME 91.8 fl (80.0-96.0); PLATELET COUNT, AUTOMATED 103 10^3/uL (150-450); RED BLOOD COUNT 3.31 10^6/uL (4.00-5.40); WHITE BLOOD COUNT 3.7 10^3/uL (4.0-10.0)
[2021-11-06 07:09] LABS: BLOOD UREA NITROGEN 5 MG/DL (7-18); CALCIUM LEVEL 8.8 MG/DL (8.5-10.1); CARBON DIOXIDE LEVEL 30 MEQ/L (21-32); CHLORIDE LEVEL 108 MEQ/L (98-107); CREATININE FOR GFR 0.82 MG/DL (0.55-1.30); GLOMERULAR FILTRATION RATE > 60.0 (>60); GLUCOSE, FASTING 124 MG/DL (70-100); POTASSIUM SERUM 4.2 MEQ/L (3.5-5.1); SODIUM LEVEL 142 MEQ/L (136-145)
[2021-11-06] MEDS: GABAPENTIN 300 MG CAP PO SCH ×3 (08:10→21:08)
[2021-11-06] MEDS: guaiFENesin ER 600 MG TAB PO SCH ×2 (08:10→21:09)
[2021-11-06] MEDS: DOXYCYCLINE HYCLATE 100MG TABLET PO SCH ×2 (08:10→21:08)
[2021-11-06] MEDS: METHADONE 10MG TAB PO SCH (08:10)
[2021-11-06] MEDS: VENLAFAXINE **XR** 75MG CAPSULE PO SCH (08:10)
[2021-11-06] MEDS: OLANZapine 5 MG TAB PO SCH ×3 (08:10→21:09)
[2021-11-06 14:00] VITALS: BP 117/77
[2021-11-06] MEDS: QUEtiapine FUMARATE 50MG TAB PO SCH (21:09)
[2021-11-06 21:12] VITALS: BP 116/72
[2021-11-07] VITALS (7 sets, daily range): BP systolic 109–132; BP diastolic 64–89; O2SAT 98
[2021-11-07] MEDS: IPRATROPIUM 0.5MG/ALBUTEROL 2.5MG INH SOL UD 3ML (DUONEB) NEB SCH ×4 (01:10→19:44)
[2021-11-07] MEDS: SODIUM CHLORIDE HYPERTONIC 3% 15ML NEB SOL INH SCH ×4 (01:10→19:43)
[2021-11-07] MEDS: cefTRIAXone SOD 1 GM in D5W MINI-BAG PLUS 50 ML IV SCH (02:07)
[2021-11-07] MEDS: SODIUM CHLORIDE 0.9% INJ 10 ML SYR IV PRN (03:20)
[2021-11-07] MEDS: HEPARIN SOD (PORCINE) 5000UNITS/ML 1ML VIAL/SYRINGE SC SCH ×3 (06:00→20:50)
[2021-11-07] MEDS: LEVOTHYROXINE 150MCG TABLET (0.15MG) PO SCH (06:07)
[2021-11-07] MEDS: SODIUM CHLORIDE 0.9% INJ 10 ML SYR IV SCH ×2 (06:07→17:20)
[2021-11-07 07:29] LABS: HEMATOCRIT 28.9 % (36.0-47.0); HEMOGLOBIN 8.6 g/dl (12.0-15.5); MEAN CORPUSCULAR HEMOGLOBIN 27.5 pg (27.0-33.0); MEAN CORPUSCULAR HGB CONC 29.8 g/dl (32.0-36.5); MEAN CORPUSCULAR VOLUME 92.3 fl (80.0-96.0); PLATELET COUNT, AUTOMATED 106 10^3/uL (150-450); RED BLOOD COUNT 3.13 10^6/uL (4.00-5.40); WHITE BLOOD COUNT 3.7 10^3/uL (4.0-10.0)
[2021-11-07 08:08] LABS: BLOOD UREA NITROGEN 6 MG/DL (7-18); CALCIUM LEVEL 8.6 MG/DL (8.5-10.1); CARBON DIOXIDE LEVEL 28 MEQ/L (21-32); CHLORIDE LEVEL 106 MEQ/L (98-107); CREATININE FOR GFR 0.87 MG/DL (0.55-1.30); GLOMERULAR FILTRATION RATE > 60.0 (>60); GLUCOSE, FASTING 136 MG/DL (70-100); POTASSIUM SERUM 3.9 MEQ/L (3.5-5.1); SODIUM LEVEL 139 MEQ/L (136-145)
[2021-11-07] MEDS: OLANZapine 5 MG TAB PO SCH ×3 (08:58→20:48)
[2021-11-07] MEDS: DOXYCYCLINE HYCLATE 100MG TABLET PO SCH (08:58)
[2021-11-07] MEDS: GABAPENTIN 300 MG CAP PO SCH ×3 (08:58→20:47)
[2021-11-07] MEDS: METHADONE 10MG TAB PO SCH (08:58)
[2021-11-07] MEDS: VENLAFAXINE **XR** 75MG CAPSULE PO SCH (08:58)
[2021-11-07] MEDS: guaiFENesin ER 600 MG TAB PO SCH ×2 (08:58→20:48)
[2021-11-07] MEDS: ACETAMINOPHEN TAB 650MG DOSE (2X325MG) PO PRN (15:44)
[2021-11-07] MEDS: QUEtiapine FUMARATE 50MG TAB PO SCH (20:47)
[2021-11-08] MEDS: IPRATROPIUM 0.5MG/ALBUTEROL 2.5MG INH SOL UD 3ML (DUONEB) NEB SCH ×4 (00:47→19:29)
[2021-11-08] MEDS: SODIUM CHLORIDE HYPERTONIC 3% 15ML NEB SOL INH SCH ×4 (00:47→19:29)
[2021-11-08 02:00] VITALS: BP 119/75
[2021-11-08 06:00] VITALS: BP 111/76
[2021-11-08] MEDS: HEPARIN SOD (PORCINE) 5000UNITS/ML 1ML VIAL/SYRINGE SC SCH ×3 (06:00→20:58)
[2021-11-08] MEDS: SODIUM CHLORIDE 0.9% INJ 10 ML SYR IV SCH ×2 (06:09→16:30)
[2021-11-08] MEDS: LEVOTHYROXINE 150MCG TABLET (0.15MG) PO SCH (06:09)
[2021-11-08 06:49] LABS: HEMATOCRIT 31.2 % (36.0-47.0); HEMOGLOBIN 9.1 g/dl (12.0-15.5); MEAN CORPUSCULAR HEMOGLOBIN 27.2 pg (27.0-33.0); MEAN CORPUSCULAR HGB CONC 29.2 g/dl (32.0-36.5); MEAN CORPUSCULAR VOLUME 93.4 fl (80.0-96.0); PLATELET COUNT, AUTOMATED 104 10^3/uL (150-450); RED BLOOD COUNT 3.34 10^6/uL (4.00-5.40); WHITE BLOOD COUNT 3.6 10^3/uL (4.0-10.0)
[2021-11-08 07:22] LABS: BLOOD UREA NITROGEN 8 MG/DL (7-18); CALCIUM LEVEL 8.8 MG/DL (8.5-10.1); CARBON DIOXIDE LEVEL 31 MEQ/L (21-32); CHLORIDE LEVEL 106 MEQ/L (98-107); CREATININE FOR GFR 0.88 MG/DL (0.55-1.30); GLOMERULAR FILTRATION RATE > 60.0 (>60); GLUCOSE, FASTING 118 MG/DL (70-100); SODIUM LEVEL 141 MEQ/L (136-145)
[2021-11-08 08:12] VITALS: O2SAT 98
[2021-11-08] MEDS: OLANZapine 5 MG TAB PO SCH ×3 (09:31→20:58)
[2021-11-08] MEDS: METHADONE 10MG TAB PO SCH (09:31)
[2021-11-08] MEDS: VENLAFAXINE **XR** 75MG CAPSULE PO SCH (09:31)
[2021-11-08] MEDS: guaiFENesin ER 600 MG TAB PO SCH ×2 (09:31→20:58)
[2021-11-08] MEDS: GABAPENTIN 300 MG CAP PO SCH ×3 (09:32→20:58)
[2021-11-08 10:00] VITALS: BP 111/71
[2021-11-08 13:55] VITALS: O2SAT 98
[2021-11-08 14:00] VITALS: BP 136/83
[2021-11-08] MEDS: FUROSEMIDE 20 MG TAB PO SCH (14:39)
[2021-11-08] MEDS: ACETAMINOPHEN TAB 650MG DOSE (2X325MG) PO PRN (20:58)
[2021-11-08] MEDS: QUEtiapine FUMARATE 50MG TAB PO SCH (20:58)
[2021-11-09] MEDS: IPRATROPIUM 0.5MG/ALBUTEROL 2.5MG INH SOL UD 3ML (DUONEB) NEB SCH ×4 (02:08→19:18)
[2021-11-09] MEDS: SODIUM CHLORIDE HYPERTONIC 3% 15ML NEB SOL INH SCH ×4 (02:08→20:00)
[2021-11-09] MEDS: HEPARIN SOD (PORCINE) 5000UNITS/ML 1ML VIAL/SYRINGE SC SCH ×4 (06:00→22:00)
[2021-11-09] MEDS: SODIUM CHLORIDE 0.9% INJ 10 ML SYR IV SCH ×2 (06:08→15:48)
[2021-11-09] MEDS: LEVOTHYROXINE 150MCG TABLET (0.15MG) PO SCH (06:08)
[2021-11-09 06:45] VITALS: BP 121/81
[2021-11-09 07:22] LABS: MEAN CORPUSCULAR VOLUME 93.1 fl (80.0-96.0); PLATELET COUNT, AUTOMATED 109 10^3/uL (150-450); RED BLOOD COUNT 3.33 10^6/uL (4.00-5.40); WHITE BLOOD COUNT 3.8 10^3/uL (4.0-10.0)
[2021-11-09 07:46] VITALS: O2SAT 98
[2021-11-09 07:56] LABS: BLOOD UREA NITROGEN 7 MG/DL (7-18); CARBON DIOXIDE LEVEL 31 MEQ/L (21-32); CHLORIDE LEVEL 104 MEQ/L (98-107); CREATININE FOR GFR 0.94 MG/DL (0.55-1.30); GLOMERULAR FILTRATION RATE > 60.0 (>60); GLUCOSE, FASTING 154 MG/DL (70-100); POTASSIUM SERUM 3.7 MEQ/L (3.5-5.1); SODIUM LEVEL 140 MEQ/L (136-145)
[2021-11-09] MEDS: GABAPENTIN 300 MG CAP PO SCH ×3 (08:59→21:59)
[2021-11-09] MEDS: FUROSEMIDE 20 MG TAB PO SCH (08:59)
[2021-11-09] MEDS: VENLAFAXINE **XR** 75MG CAPSULE PO SCH (08:59)
[2021-11-09] MEDS: METHADONE 10MG TAB PO SCH (08:59)
[2021-11-09] MEDS: guaiFENesin ER 600 MG TAB PO SCH ×2 (08:59→22:00)
[2021-11-09] MEDS: OLANZapine 5 MG TAB PO SCH ×3 (08:59→22:00)
[2021-11-09 10:00] VITALS: BP 102/63
[2021-11-09 13:45] VITALS: O2SAT 98
[2021-11-09 14:00] VITALS: BP 101/63
[2021-11-09 21:33] VITALS: BP 130/85
[2021-11-09] MEDS: ACETAMINOPHEN TAB 650MG DOSE (2X325MG) PO PRN (21:59)
[2021-11-09] MEDS: QUEtiapine FUMARATE 50MG TAB PO SCH (22:00)
[2021-11-10] MEDS: SODIUM CHLORIDE HYPERTONIC 3% 15ML NEB SOL INH SCH ×4 (01:37→19:52)
[2021-11-10] MEDS: IPRATROPIUM 0.5MG/ALBUTEROL 2.5MG INH SOL UD 3ML (DUONEB) NEB SCH ×4 (01:37→19:52)
[2021-11-10 02:10] VITALS: BP 101/78
[2021-11-10 05:30] VITALS: BP 112/72
[2021-11-10] MEDS: LEVOTHYROXINE 150MCG TABLET (0.15MG) PO SCH (05:31)
[2021-11-10] MEDS: ACETAMINOPHEN TAB 650MG DOSE (2X325MG) PO PRN ×2 (05:31→20:06)
[2021-11-10] MEDS: HEPARIN SOD (PORCINE) 5000UNITS/ML 1ML VIAL/SYRINGE SC SCH ×3 (05:31→20:07)
[2021-11-10] MEDS: SODIUM CHLORIDE 0.9% INJ 10 ML SYR IV SCH ×3 (05:32→15:36)
[2021-11-10 06:46] LABS: HEMATOCRIT 31.1 % (36.0-47.0); HEMOGLOBIN 9.1 g/dl (12.0-15.5); MEAN CORPUSCULAR HEMOGLOBIN 26.8 pg (27.0-33.0); MEAN CORPUSCULAR HGB CONC 29.3 g/dl (32.0-36.5); MEAN CORPUSCULAR VOLUME 91.7 fl (80.0-96.0); PLATELET COUNT, AUTOMATED 108 10^3/uL (150-450); RED BLOOD COUNT 3.39 10^6/uL (4.00-5.40); WHITE BLOOD COUNT 3.6 10^3/uL (4.0-10.0)
[2021-11-10 07:24] LABS: BLOOD UREA NITROGEN 5 MG/DL (7-18); CALCIUM LEVEL 8.8 MG/DL (8.5-10.1); CARBON DIOXIDE LEVEL 31 MEQ/L (21-32); CHLORIDE LEVEL 107 MEQ/L (98-107); CREATININE FOR GFR 0.89 MG/DL (0.55-1.30); GLOMERULAR FILTRATION RATE > 60.0 (>60); GLUCOSE, FASTING 130 MG/DL (70-100); POTASSIUM SERUM 3.8 MEQ/L (3.5-5.1); SODIUM LEVEL 142 MEQ/L (136-145)
[2021-11-10] MEDS: VENLAFAXINE **XR** 75MG CAPSULE PO SCH (08:11)
[2021-11-10] MEDS: OLANZapine 5 MG TAB PO SCH ×3 (08:11→20:06)
[2021-11-10] MEDS: FUROSEMIDE 20 MG TAB PO SCH (08:12)
[2021-11-10] MEDS: METHADONE 10MG TAB PO SCH (08:12)
[2021-11-10] MEDS: guaiFENesin ER 600 MG TAB PO SCH ×2 (08:12→20:06)
[2021-11-10] MEDS: GABAPENTIN 300 MG CAP PO SCH ×3 (08:12→20:07)
[2021-11-10 10:00] VITALS: BP 132/83
[2021-11-10 15:08] VITALS: BP 142/88
[2021-11-10] MEDS: QUEtiapine FUMARATE 50MG TAB PO SCH (20:07)
[2021-11-10 22:00] VITALS: BP 141/87
[2021-11-11] MEDS: SODIUM CHLORIDE HYPERTONIC 3% 15ML NEB SOL INH SCH ×3 (02:48→20:03)
[2021-11-11] MEDS: IPRATROPIUM 0.5MG/ALBUTEROL 2.5MG INH SOL UD 3ML (DUONEB) NEB SCH ×4 (02:48→20:02)
[2021-11-11] MEDS: SODIUM CHLORIDE 0.9% INJ 10 ML SYR IV SCH ×2 (05:40→18:00)
[2021-11-11] MEDS: LEVOTHYROXINE 150MCG TABLET (0.15MG) PO SCH (05:40)
[2021-11-11] MEDS: HEPARIN SOD (PORCINE) 5000UNITS/ML 1ML VIAL/SYRINGE SC SCH ×3 (05:40→20:16)
[2021-11-11 06:00] VITALS: BP 108/87
[2021-11-11] MEDS: VENLAFAXINE **XR** 75MG CAPSULE PO SCH (08:51)
[2021-11-11] MEDS: OLANZapine 5 MG TAB PO SCH ×3 (08:52→20:14)
[2021-11-11] MEDS: METHADONE 10MG TAB PO SCH (08:52)
[2021-11-11] MEDS: ACETAMINOPHEN TAB 650MG DOSE (2X325MG) PO PRN (08:52)
[2021-11-11] MEDS: FUROSEMIDE 20 MG TAB PO SCH (08:53)
[2021-11-11] MEDS: guaiFENesin ER 600 MG TAB PO SCH ×2 (08:53→20:16)
[2021-11-11] MEDS: GABAPENTIN 300 MG CAP PO SCH ×3 (08:53→20:14)
[2021-11-11] MEDS: QUEtiapine FUMARATE 50MG TAB PO SCH (20:14)
[2021-11-12] MEDS: LEVOTHYROXINE 150MCG TABLET (0.15MG) PO SCH (05:23)
[2021-11-12 06:00] VITALS: BP 114/73
[2021-11-12] MEDS: SODIUM CHLORIDE 0.9% INJ 10 ML SYR IV SCH ×2 (06:00→16:22)
[2021-11-12] MEDS: HEPARIN SOD (PORCINE) 5000UNITS/ML 1ML VIAL/SYRINGE SC SCH ×3 (06:00→20:08)
[2021-11-12 06:54] LABS: HEMATOCRIT 29.4 % (36.0-47.0); HEMOGLOBIN 9.1 g/dl (12.0-15.5); MEAN CORPUSCULAR HEMOGLOBIN 27.6 pg (27.0-33.0); MEAN CORPUSCULAR VOLUME 89.1 fl (80.0-96.0); PLATELET COUNT, AUTOMATED 124 10^3/uL (150-450)
[2021-11-12 07:04] LABS: INR 0.92; PROTHROMBIN TIME 12.7 SECONDS (12.7-14.5)
[2021-11-12 07:24] LABS: BLOOD UREA NITROGEN 7 MG/DL (7-18); CALCIUM LEVEL 8.7 MG/DL (8.5-10.1); CARBON DIOXIDE LEVEL 27 MEQ/L (21-32); CHLORIDE LEVEL 108 MEQ/L (98-107); GLOMERULAR FILTRATION RATE > 60.0 (>60); GLUCOSE, FASTING 128 MG/DL (70-100); POTASSIUM SERUM 3.6 MEQ/L (3.5-5.1); SODIUM LEVEL 144 MEQ/L (136-145)
[2021-11-12] MEDS: SODIUM CHLORIDE HYPERTONIC 3% 15ML NEB SOL INH SCH ×3 (07:55→19:28)
[2021-11-12] MEDS: IPRATROPIUM 0.5MG/ALBUTEROL 2.5MG INH SOL UD 3ML (DUONEB) NEB SCH ×3 (07:56→19:28)
[2021-11-12] MEDS: METHADONE 10MG TAB PO SCH (08:43)
[2021-11-12] MEDS: guaiFENesin ER 600 MG TAB PO SCH ×2 (08:43→20:08)
[2021-11-12] MEDS: FUROSEMIDE 20 MG TAB PO SCH (08:44)
[2021-11-12] MEDS: VENLAFAXINE **XR** 75MG CAPSULE PO SCH (08:44)
[2021-11-12] MEDS: OLANZapine 5 MG TAB PO SCH ×3 (08:44→20:08)
[2021-11-12] MEDS: GABAPENTIN 300 MG CAP PO SCH ×3 (08:44→20:08)
[2021-11-12 10:20] VITALS: BP 116/72
[2021-11-12] MEDS: QUEtiapine FUMARATE 50MG TAB PO SCH (20:08)
[2021-11-13] MEDS: SODIUM CHLORIDE HYPERTONIC 3% 15ML NEB SOL INH SCH ×2 (02:54→08:10)
[2021-11-13] MEDS: IPRATROPIUM 0.5MG/ALBUTEROL 2.5MG INH SOL UD 3ML (DUONEB) NEB SCH ×2 (02:54→08:10)
[2021-11-13] MEDS: HEPARIN SOD (PORCINE) 5000UNITS/ML 1ML VIAL/SYRINGE SC SCH (05:41)
[2021-11-13 06:00] VITALS: BP 113/72
[2021-11-13] MEDS: SODIUM CHLORIDE 0.9% INJ 10 ML SYR IV SCH (06:13)
[2021-11-13] MEDS: LEVOTHYROXINE 150MCG TABLET (0.15MG) PO SCH (06:13)
[2021-11-13] MEDS: OLANZapine 5 MG TAB PO SCH (08:49)
[2021-11-13] MEDS: METHADONE 10MG TAB PO SCH (08:49)
[2021-11-13] MEDS: guaiFENesin ER 600 MG TAB PO SCH (08:49)
[2021-11-13] MEDS: VENLAFAXINE **XR** 75MG CAPSULE PO SCH (08:49)
[2021-11-13] MEDS: GABAPENTIN 300 MG CAP PO SCH (08:49)
[2021-11-13] MEDS: FUROSEMIDE 20 MG TAB PO SCH (08:50)
[2021-11-13] MEDS ORDERED: FURO20TA2 PO (10:26)
[2021-11-13] MEDS ORDERED: MUCI600T31 PO (10:31)
== END 2021-11-13 12:35 | disposition home health service (06) | DRG 133 ==
LOC: M ED 21:13 → EDBD 21:13 → M ED INP 10-31 02:34 → M MS5PR 10-31 05:07
PROVIDERS: ADMIT Internal Medicine; ATTEND Internal Medicine
DX: J96.01 Acute respiratory failure with hypoxia (principal); J18.9 Pneumonia, unspecified organism; E87.2 Acidosis; Z93.0 Tracheostomy status; F11.20 Opioid dependence, uncomplicated; T17.900A Unspecified foreign body in respiratory tract, part unspecified causing asphyxiation, initial encounter; J96.02 Acute respiratory failure with hypercapnia; F32.A Depression, unspecified; D64.9 Anemia, unspecified; J45.909 Unspecified asthma, uncomplicated; F41.9 Anxiety disorder, unspecified; E03.9 Hypothyroidism, unspecified; Z86.14 Personal history of Methicillin resistant Staphylococcus aureus infection; Z79.890 Hormone replacement therapy; Z79.899 Other long term (current) drug therapy; Z91.51 Personal history of suicidal behavior; Z87.891 Personal history of nicotine dependence

== ENCOUNTER 2021-11-25 16:26 | Emergency (ER) | payer OTHER ==
[~2021-11-25] VITALS: Ht 160 cm; Wt 117.2 kg
[~2021-11-25 16:26] MED LIST changes: +FURO20TA2 PO; +MUCI600T31 PO
[2021-11-25] MEDS ORDERED: TRAZ-252 (16:36)
[2021-11-25] MEDS ORDERED: NSIRR1000 (16:36)
[2021-11-25] MEDS ORDERED: PRAZ2CAP (16:36)
[2021-11-25] MEDS ORDERED: HYDR50TA70 (16:36)
[2021-11-25 17:37] LABS: CK-MB VALUE MASS < 1.0 NG/ML (<3.6); CPK CREATINE PHOSPHOKINASE 36 U/L (26-192); MB/CK RELATIVE INDEX 2.78 (< OR =4)
[2021-11-25 17:38] LABS: RSV AMPLIFICATION NEGATIVE (NEGATIVE)
[2021-11-25 17:57] LABS: ALBUMIN 3.2 GM/DL (3.2-5.2); ALT/SGPT 26 U/L (12-78); BILIRUBIN,DIRECT 0.2 MG/DL (0.0-0.2); BILIRUBIN,TOTAL 0.5 MG/DL (0.2-1.0); BLOOD UREA NITROGEN 5 MG/DL (7-18); CALCIUM LEVEL 8.5 MG/DL (8.5-10.1); CARBON DIOXIDE LEVEL 26 MEQ/L (21-32); CHLORIDE LEVEL 110 MEQ/L (98-107); CREATININE FOR GFR 1.12 MG/DL (0.55-1.30); GLOMERULAR FILTRATION RATE 57.7 (>60); GLUCOSE, FASTING 151 MG/DL (70-100); POTASSIUM SERUM 3.2 MEQ/L (3.5-5.1); SODIUM LEVEL 143 MEQ/L (136-145); TOTAL PROTEIN 6.5 GM/DL (6.4-8.2)
[2021-11-25 18:04] LABS: HCG, SERUM QUALITATIVE NEGATIVE (NEGATIVE)
[2021-11-25 18:07] LABS: BASO # 0.1 10^3/uL (0.0-0.2); BASO % 0.8 % (0.0-1.0); EOS # 0.3 10^3/uL (0.0-0.5); EOS % 4.2 % (0.0-3.0); HEMATOCRIT 31.1 % (36.0-47.0); HEMOGLOBIN 9.8 g/dl (12.0-15.5); LYMPH # 1.1 10^3/uL (1.5-5.0); LYMPH % 18.1 % (24.0-44.0); MEAN CORPUSCULAR HEMOGLOBIN 26.6 pg (27.0-33.0); MEAN CORPUSCULAR HGB CONC 31.5 g/dl (32.0-36.5); MEAN CORPUSCULAR VOLUME 84.3 fl (80.0-96.0); MONO # 0.5 10^3/uL (0.0-0.8); MONO % 7.7 % (2.0-8.0); NEUTROPHILS # 4.3 10^3/uL (1.5-8.5); NEUTROPHILS % 68.2 % (36.0-66.0); PLATELET COUNT, AUTOMATED 186 10^3/uL (150-450); RED BLOOD COUNT 3.69 10^6/uL (4.00-5.40); WHITE BLOOD COUNT 6.2 10^3/uL (4.0-10.0)
[2021-11-25] MEDS ORDERED: NS 1,000 ML IV ONE (19:25)
[2021-11-25] MEDS ORDERED: LORazepam 1 MG TAB PO STA (21:28)
[2021-11-25 22:57] VITALS: BP 178/90
== END 2021-11-25 23:18 | disposition home or self-care (01) ==
LOC: M ED 16:26
DX: R06.02 Shortness of breath (principal); J95.00 Unspecified tracheostomy complication; N18.30 Chronic kidney disease, stage 3 unspecified; R56.9 Unspecified convulsions; J80 Acute respiratory distress syndrome; F19.10 Other psychoactive substance abuse, uncomplicated; Z79.899 Other long term (current) drug therapy; Z79.890 Hormone replacement therapy

== ENCOUNTER 2022-01-05 13:58 | Inpatient (IN) | payer OTHER ==
[~2022-01-05] VITALS: Ht 160 cm; Wt 114.1 kg
[~2022-01-05 13:58] MED LIST changes: +NSIRR1000; +PRAZ2CAP PO
[2022-01-05 14:41] LABS: BASO # 0.1 10^3/uL (0.0-0.2); BASO % 0.6 % (0.0-1.0); EOS # 0.4 10^3/uL (0.0-0.5); EOS % 4.1 % (0.0-3.0); HEMATOCRIT 35.9 % (36.0-47.0); HEMOGLOBIN 10.7 g/dl (12.0-15.5); LYMPH # 1.5 10^3/uL (1.5-5.0); LYMPH % 15.5 % (24.0-44.0); MEAN CORPUSCULAR HEMOGLOBIN 25.6 pg (27.0-33.0); MEAN CORPUSCULAR HGB CONC 29.8 g/dl (32.0-36.5); MEAN CORPUSCULAR VOLUME 85.9 fl (80.0-96.0); MONO # 0.5 10^3/uL (0.0-0.8); MONO % 5.4 % (2.0-8.0); NEUTROPHILS # 7.1 10^3/uL (1.5-8.5); PLATELET COUNT, AUTOMATED 199 10^3/uL (150-450); RED BLOOD COUNT 4.18 10^6/uL (4.00-5.40); WHITE BLOOD COUNT 9.8 10^3/uL (4.0-10.0)
[2022-01-05 15:09] LABS: CALCIUM LEVEL 8.9 MG/DL (8.5-10.1); CREATININE FOR GFR 1.5 MG/DL (0.55-1.30); GLOMERULAR FILTRATION RATE 41.2 (>60); POTASSIUM SERUM 3.7 MEQ/L (3.5-5.1)
[2022-01-05 16:16] LABS: VENOUS BASE EXCESS -0.4 (-2.0-2.0); VENOUS PARTIAL PRESSURE CO2 50.6 mmHg (38.0-50.0); VENOUS PARTIAL PRESSURE O2 71.6 mmHg (30.0-50.0); VENOUS PH 7.329 UNITS (7.330-7.430); VENOUS TOTAL CO2 27.6 MEQ/L (24.0-28.0)
[2022-01-05] MEDS ORDERED: ISOVUE-370 76% 100ML VIAL As Ordered ONE (16:33)
[2022-01-05] MEDS ORDERED: NS 1,000 ML IV SCH (17:00)
[2022-01-05 17:19] LABS: ABG BASE EXCESS 1.3 (-2.0-2.0); ABG HCO3 27.6 MEQ/L (22.0-26.0); ABG PARTIAL PRESSURE CO2 51.6 mmHg (35.0-45.0); ABG PARTIAL PRESSURE O2 85.1 mmHg (75.0-100.0); ABG STANDARD HCO3 25.6 MEQ/L (22.0-26.0); ABG TOTAL CO2 29.2 MEQ/L (22.0-29.0); ABG pH (ARTERIAL) 7.346 UNITS (7.350-7.450)
[2022-01-05] MEDS ORDERED: QUET100T2 PO (17:49)
[2022-01-05] MEDS ORDERED: OLAN7.5T8 PO (17:49)
[2022-01-05] MEDS ORDERED: HOME MED LIST COMPLETE! XX SCH (17:50)
[2022-01-05 19:00] VITALS: BP 139/71
[2022-01-05 20:00] VITALS: BP 116/82
[2022-01-05] MEDS ORDERED: [UNRECOGNIZED DRUG - REMARK] XX SCH (21:15)
[2022-01-05] MEDS: traZODone 50 MG TAB PO SCH (22:11)
[2022-01-05] MEDS: GABAPENTIN 400MG CAP PO SCH (22:11)
[2022-01-05] MEDS: QUEtiapine FUMARATE 100 MG TAB PO SCH (22:11)
[2022-01-06] MEDS ORDERED: D5W/0.45% SODIUM CHLORIDE 1,000 ML IV SCH (03:00)
[2022-01-06 04:00] VITALS: BP 132/77
[2022-01-06 04:47] LABS: HEMATOCRIT 34.4 % (36.0-47.0); HEMOGLOBIN 9.8 g/dl (12.0-15.5); MEAN CORPUSCULAR HEMOGLOBIN 25.1 pg (27.0-33.0); MEAN CORPUSCULAR HGB CONC 28.5 g/dl (32.0-36.5); PLATELET COUNT, AUTOMATED 177 10^3/uL (150-450); RED BLOOD COUNT 3.91 10^6/uL (4.00-5.40); WHITE BLOOD COUNT 10.9 10^3/uL (4.0-10.0)
[2022-01-06] MEDS: ACETAMINOPHEN TAB 650MG DOSE (2X325MG) PO PRN ×2 (05:07→13:43)
[2022-01-06] MEDS: HEPARIN SOD (PORCINE) 5000UNITS/ML 1ML VIAL/SYRINGE SC SCH ×3 (05:07→21:02)
[2022-01-06] MEDS: LEVOTHYROXINE 150MCG TABLET (0.15MG) PO SCH (05:07)
[2022-01-06 05:10] LABS: CALCIUM LEVEL 8.4 MG/DL (8.5-10.1); CREATININE FOR GFR 1.39 MG/DL (0.55-1.30); GLOMERULAR FILTRATION RATE 44.9 (>60); POTASSIUM SERUM 3.9 MEQ/L (3.5-5.1)
[2022-01-06 08:00] VITALS: BP 117/56
[2022-01-06] MEDS: cefTRIAXone SOD 2 GM in D5W MINI-BAG PLUS 50 ML IV SCH (08:16)
[2022-01-06] MEDS ORDERED: AZITHROMYCIN INJ 500 MG, VIAL MATE ADAPTER 1 EACH in NS 250 ML IV ONE (09:00)
[2022-01-06] MEDS: GABAPENTIN 400MG CAP PO SCH ×3 (10:09→20:59)
[2022-01-06] MEDS: OLANZapine 2.5MG TABLET PO SCH ×3 (10:09→20:59)
[2022-01-06] MEDS: VENLAFAXINE **XR** 75MG CAPSULE PO SCH (10:09)
[2022-01-06] MEDS ORDERED: NS 1,000 ML IV SCH (10:25)
[2022-01-06] MEDS: METHADONE 10MG TAB PO SCH (10:48)
[2022-01-06 12:00] VITALS: BP 124/69
[2022-01-06 16:00] VITALS: BP 138/78
[2022-01-06 18:01] VITALS: BP 138/78
[2022-01-06 20:00] VITALS: BP 125/89
[2022-01-06] MEDS: traZODone 50 MG TAB PO SCH (20:59)
[2022-01-06] MEDS: QUEtiapine FUMARATE 100 MG TAB PO SCH (20:59)
[2022-01-06] MEDS ORDERED: PRAZOSIN 1 MG CAP PO SCH (21:00)
[2022-01-07 04:00] VITALS: BP 123/76
[2022-01-07 05:03] LABS: HEMATOCRIT 34.5 % (36.0-47.0); MEAN CORPUSCULAR HEMOGLOBIN 25.4 pg (27.0-33.0); MEAN CORPUSCULAR VOLUME 87.6 fl (80.0-96.0); PLATELET COUNT, AUTOMATED 165 10^3/uL (150-450); RED BLOOD COUNT 3.94 10^6/uL (4.00-5.40); WHITE BLOOD COUNT 8.2 10^3/uL (4.0-10.0)
[2022-01-07] MEDS: LEVOTHYROXINE 150MCG TABLET (0.15MG) PO SCH (05:37)
[2022-01-07] MEDS: HEPARIN SOD (PORCINE) 5000UNITS/ML 1ML VIAL/SYRINGE SC SCH (05:37)
[2022-01-07 05:40] LABS: CALCIUM LEVEL 8.4 MG/DL (8.5-10.1); CREATININE FOR GFR 1.35 MG/DL (0.55-1.30); GLOMERULAR FILTRATION RATE 46.5 (>60); POTASSIUM SERUM 3.9 MEQ/L (3.5-5.1)
[2022-01-07 08:00] VITALS: BP 111/55
[2022-01-07] MEDS: cefTRIAXone SOD 2 GM in D5W MINI-BAG PLUS 50 ML IV SCH (08:49)
[2022-01-07] MEDS: VENLAFAXINE **XR** 75MG CAPSULE PO SCH (08:50)
[2022-01-07] MEDS: OLANZapine 2.5MG TABLET PO SCH (08:50)
[2022-01-07] MEDS: GABAPENTIN 400MG CAP PO SCH (08:51)
[2022-01-07] MEDS: METHADONE 10MG TAB PO SCH (09:00)
[2022-01-07] MEDS ORDERED: AZITHROMYCIN 250MG TABLET PO SCH (09:00)
[2022-01-07] MEDS ORDERED: AZIT-12 PO (09:42)
[2022-01-07] MEDS ORDERED: CEFD300C41 PO (09:42)
[2022-01-07] MEDS ORDERED: INFLUENZA QUADRIVALENT PF VACCINE 0.5ML SYRINGE IM.IMMUN ONE (12:00)
== END 2022-01-07 12:02 | disposition home or self-care (01) | DRG 133 ==
LOC: M ED 13:58 → M ED INP 16:46 → M ICU 18:30
PROVIDERS: ADMIT General Practice; ATTEND Internal Medicine Nephrology
DX: J96.01 Acute respiratory failure with hypoxia (principal); N17.9 Acute kidney failure, unspecified; J18.9 Pneumonia, unspecified organism; Z93.0 Tracheostomy status; J38.00 Paralysis of vocal cords and larynx, unspecified; J38.6 Stenosis of larynx; F11.20 Opioid dependence, uncomplicated; E66.01 Morbid (severe) obesity due to excess calories; F25.9 Schizoaffective disorder, unspecified; E83.59 Other disorders of calcium metabolism; D64.9 Anemia, unspecified; E03.9 Hypothyroidism, unspecified; F43.10 Post-traumatic stress disorder, unspecified; J98.11 Atelectasis; F32.A Depression, unspecified; R00.0 Tachycardia, unspecified; F60.3 Borderline personality disorder; F41.1 Generalized anxiety disorder; F17.200 Nicotine dependence, unspecified, uncomplicated; N29 Other disorders of kidney and ureter in diseases classified elsewhere; J45.909 Unspecified asthma, uncomplicated; Z91.51 Personal history of suicidal behavior; Z86.14 Personal history of Methicillin resistant Staphylococcus aureus infection; Z68.39 Body mass index [BMI] 39.0-39.9, adult; Z79.890 Hormone replacement therapy; Z79.899 Other long term (current) drug therapy

== ENCOUNTER 2022-01-25 12:08 | Inpatient (IN) | payer OTHER ==
[~2022-01-25] VITALS: Ht 160 cm; Wt 116.5 kg
[~2022-01-25 12:08] MED LIST changes: +AZIT-12 PO; +CEFD300C41 PO; +OLAN7.5T8 PO
[2022-01-25] MEDS ORDERED: ACETAMINOPHEN TAB 650MG DOSE (2X325MG) PO ONE (13:15)
[2022-01-25] MEDS ORDERED: IPRATROPIUM 0.5MG/ALBUTEROL 2.5MG INH SOL UD 3ML (DUONEB) NEB ONE ×2 (13:25→16:40)
[2022-01-25] MEDS ORDERED: methylPREDNISolone 125MG 2ML VIAL IV ONE (13:25)
[2022-01-25 13:43] LABS: ABG BASE EXCESS 0.9 (-2.0-2.0); ABG HCO3 26.3 MEQ/L (22.0-26.0); ABG O2 SATURATION 97.1 % (95.0-99.0); ABG PARTIAL PRESSURE O2 93.5 mmHg (75.0-100.0); ABG STANDARD HCO3 25.2 MEQ/L (22.0-26.0); ABG TOTAL CO2 27.6 MEQ/L (22.0-29.0); ABG pH (ARTERIAL) 7.384 UNITS (7.350-7.450)
[2022-01-25 14:23] LABS: BASO # 0.1 10^3/uL (0.0-0.2); BASO % 0.6 % (0.0-1.0); EOS # 0.2 10^3/uL (0.0-0.5); EOS % 1.4 % (0.0-3.0); HEMATOCRIT 38.4 % (36.0-47.0); HEMOGLOBIN 11.7 g/dl (12.0-15.5); LYMPH # 1.3 10^3/uL (1.5-5.0); LYMPH % 12.2 % (24.0-44.0); MEAN CORPUSCULAR HEMOGLOBIN 25.9 pg (27.0-33.0); MEAN CORPUSCULAR HGB CONC 30.5 g/dl (32.0-36.5); MONO # 0.7 10^3/uL (0.0-0.8); NEUTROPHILS # 8.3 10^3/uL (1.5-8.5); NEUTROPHILS % 78.4 % (36.0-66.0); PLATELET COUNT, AUTOMATED 165 10^3/uL (150-450); RED BLOOD COUNT 4.52 10^6/uL (4.00-5.40); WHITE BLOOD COUNT 10.6 10^3/uL (4.0-10.0)
[2022-01-25] MEDS ORDERED: ONDANSETRON 4MG 2ML VIAL As Ordered ONE (14:57)
[2022-01-25] MEDS ORDERED: ONDANSETRON 4MG 2ML VIAL IV ONE (15:00)
[2022-01-25] MEDS ORDERED: cefTRIAXone SOD 2 GM in D5W MINI-BAG PLUS 50 ML IV ONE (15:05)
[2022-01-25 16:23] LABS: ALBUMIN 3.9 GM/DL (3.2-5.2); BILIRUBIN,DIRECT 0.1 MG/DL (0.0-0.2); BILIRUBIN,TOTAL 0.3 MG/DL (0.2-1.0); CALCIUM LEVEL 8.8 MG/DL (8.5-10.1); CREATININE FOR GFR 1.86 MG/DL (0.55-1.30); GLOMERULAR FILTRATION RATE 32.1 (>60); POTASSIUM SERUM 4.2 MEQ/L (3.5-5.1); TOTAL PROTEIN 8.4 GM/DL (6.4-8.2)
[2022-01-25] MEDS ORDERED: LEVALBUTEROL 1.25 MG/0.5 ML CONCENTRATE NEB NEB PRN (17:05)
[2022-01-25] MEDS ORDERED: HOME MED LIST COMPLETE! XX SCH (17:35)
[2022-01-25 18:29] LABS: INR 0.9; PROTHROMBIN TIME 12.3 SECONDS (12.5-14.5)
[2022-01-25 18:38] LABS: HEMOGLOBIN A1c 5.6 %
[2022-01-25 18:47] LABS: FREE T4 0.17 NG/DL (0.76-1.46)
[2022-01-25 18:50] LABS: CK-MB VALUE MASS 1.3 NG/ML (<3.6); MB/CK RELATIVE INDEX 0.83 (< OR =4)
[2022-01-25 19:56] VITALS: BP 160/98
[2022-01-25] MEDS: LEVALBUTEROL 1.25 MG/0.5 ML CONCENTRATE NEB NEB SCH (20:10)
[2022-01-25] MEDS: DOXYCYCLINE HYCLATE 100MG TABLET PO SCH (20:36)
[2022-01-25] MEDS: NS 1,000 ML IV SCH (20:36)
[2022-01-25] MEDS: GABAPENTIN 400MG CAP PO SCH (20:36)
[2022-01-25] MEDS: HEPARIN SOD (PORCINE) 5000UNITS/ML 1ML VIAL/SYRINGE SQ SCH (22:00)
[2022-01-25] MEDS: OLANZapine 2.5MG TABLET PO SCH (22:14)
[2022-01-25] MEDS: ACETAMINOPHEN TAB 650MG DOSE (2X325MG) PO PRN (22:14)
[2022-01-25] MEDS: QUEtiapine FUMARATE 100 MG TAB PO SCH (22:14)
[2022-01-25] MEDS: PRAZOSIN 1 MG CAP PO SCH (22:15)
[2022-01-26] VITALS: BP 109/55
[2022-01-26] MEDS: NS 1,000 ML IV SCH ×3 (00:26→15:59)
[2022-01-26] MEDS ORDERED: methylPREDNISolone 125MG 2ML VIAL IV SCH (03:00)
[2022-01-26 04:00] VITALS: BP 121/65
[2022-01-26] MEDS: LEVOTHYROXINE 150MCG TABLET (0.15MG) PO SCH (05:09)
[2022-01-26] MEDS: HEPARIN SOD (PORCINE) 5000UNITS/ML 1ML VIAL/SYRINGE SQ SCH ×3 (05:10→22:00)
[2022-01-26 07:09] VITALS: BP 133/80
[2022-01-26] MEDS: LEVALBUTEROL 1.25 MG/0.5 ML CONCENTRATE NEB NEB SCH ×4 (07:25→20:32)
[2022-01-26] MEDS ORDERED: VANCOMYCIN HCL 1,000 MG, VIAL MATE ADAPTER 1 EACH in NS 250 ML IV SCH (07:30)
[2022-01-26] MEDS ORDERED: CEFEPIME HCL 1 GM in D5W MINI-BAG PLUS 50 ML IV SCH (07:30)
[2022-01-26] MEDS ORDERED: VANCOMYCIN HCL 1,000 MG, VIAL MATE ADAPTER 1 EACH in NS 250 ML IV ONE ×2 (08:00→09:00)
[2022-01-26 08:10] LABS: MEAN CORPUSCULAR HEMOGLOBIN 25.8 pg (27.0-33.0); MEAN CORPUSCULAR HGB CONC 30.3 g/dl (32.0-36.5); MEAN CORPUSCULAR VOLUME 85.3 fl (80.0-96.0); PLATELET COUNT, AUTOMATED 142 10^3/uL (150-450); RED BLOOD COUNT 3.87 10^6/uL (4.00-5.40)
[2022-01-26] MEDS ORDERED: PILL CUTTER 1 EACH XX ONE (08:25)
[2022-01-26 08:35] LABS: ALBUMIN 3.4 GM/DL (3.2-5.2); BILIRUBIN,TOTAL 0.2 MG/DL (0.2-1.0); CALCIUM LEVEL 8.2 MG/DL (8.5-10.1); CREATININE FOR GFR 1.58 MG/DL (0.55-1.30); GLOMERULAR FILTRATION RATE 38.8 (>60); POTASSIUM SERUM 4.4 MEQ/L (3.5-5.1); TOTAL PROTEIN 7.6 GM/DL (6.4-8.2)
[2022-01-26] MEDS: GABAPENTIN 400MG CAP PO SCH ×3 (08:53→20:56)
[2022-01-26] MEDS: VENLAFAXINE **XR** 75MG CAPSULE PO SCH (08:53)
[2022-01-26] MEDS: DOXYCYCLINE HYCLATE 100MG TABLET PO SCH ×2 (08:53→20:57)
[2022-01-26] MEDS: METHADONE 10MG TAB PO SCH ×2 (08:54→09:00)
[2022-01-26] MEDS ORDERED: METHADONE 10MG TAB PO ONE (09:25)
[2022-01-26] MEDS: OLANZapine 2.5MG TABLET PO SCH ×3 (09:31→20:56)
[2022-01-26] MEDS ORDERED: GLUCOSE 4GM CHEW TABLET PO PRN (10:30)
[2022-01-26] MEDS ORDERED: DEXTROSE 50% 50 ML SYRINGE IV PRN (10:30)
[2022-01-26] MEDS ORDERED: GLUCAGON INJ 1MG VIAL SC PRN (10:30)
[2022-01-26] MEDS: ACETAMINOPHEN TAB 650MG DOSE (2X325MG) PO PRN ×2 (11:51→21:00)
[2022-01-26 12:00] VITALS: BP 122/73
[2022-01-26] MEDS: INSULIN LISPRO (NovoLOG) PER UNIT SC SCH ×3 (12:00→21:00)
[2022-01-26] MEDS: CEFEPIME HCL 2 GM in D5W MINI-BAG PLUS 50 ML IV SCH ×2 (12:01→22:47)
[2022-01-26 15:40] VITALS: BP 122/80
[2022-01-26] MEDS ORDERED: VANCOMYCIN HCL 750 MG, VIAL MATE ADAPTER 1 EACH in D5W 250 ML IV SCH (20:00)
[2022-01-26] MEDS ORDERED: cefTRIAXone SOD 1 GM in D5W MINI-BAG PLUS 50 ML IV SCH (20:00)
[2022-01-26 20:30] VITALS: BP 134/87
[2022-01-26] MEDS: QUEtiapine FUMARATE 100 MG TAB PO SCH (20:56)
[2022-01-26] MEDS: PRAZOSIN 1 MG CAP PO SCH (20:57)
[2022-01-27] VITALS: BP 121/85
[2022-01-27] MEDS: NS 1,000 ML IV SCH ×3 (00:12→21:40)
[2022-01-27] MEDS: ACETAMINOPHEN TAB 650MG DOSE (2X325MG) PO PRN ×3 (01:09→09:51)
[2022-01-27 04:00] VITALS: BP 131/79
[2022-01-27] MEDS: LEVOTHYROXINE 150MCG TABLET (0.15MG) PO SCH (05:44)
[2022-01-27] MEDS: HEPARIN SOD (PORCINE) 5000UNITS/ML 1ML VIAL/SYRINGE SQ SCH ×3 (05:45→21:41)
[2022-01-27 07:25] LABS: HEMATOCRIT 32.7 % (36.0-47.0); HEMOGLOBIN 9.6 g/dl (12.0-15.5); MEAN CORPUSCULAR HEMOGLOBIN 25.9 pg (27.0-33.0); MEAN CORPUSCULAR HGB CONC 29.4 g/dl (32.0-36.5); MEAN CORPUSCULAR VOLUME 88.1 fl (80.0-96.0); PLATELET COUNT, AUTOMATED 140 10^3/uL (150-450); RED BLOOD COUNT 3.71 10^6/uL (4.00-5.40); WHITE BLOOD COUNT 6.6 10^3/uL (4.0-10.0)
[2022-01-27 07:26] VITALS: BP 140/83
[2022-01-27 08:03] LABS: BILIRUBIN,TOTAL 0.3 MG/DL (0.2-1.0); CALCIUM LEVEL 8.1 MG/DL (8.5-10.1); CREATININE FOR GFR 1.58 MG/DL (0.55-1.30); GLOMERULAR FILTRATION RATE 38.8 (>60); POTASSIUM SERUM 4.3 MEQ/L (3.5-5.1); VANCOMYCIN LEVEL TROUGH 22.2 UG/ML (10.0-20.0)
[2022-01-27] MEDS: GABAPENTIN 400MG CAP PO SCH ×3 (08:26→21:41)
[2022-01-27] MEDS: METHADONE 10MG TAB PO SCH (08:26)
[2022-01-27] MEDS: DOXYCYCLINE HYCLATE 100MG TABLET PO SCH ×2 (08:26→21:41)
[2022-01-27] MEDS: VENLAFAXINE **XR** 75MG CAPSULE PO SCH (08:27)
[2022-01-27] MEDS: predniSONE 20 MG TAB PO SCH (08:27)
[2022-01-27] MEDS: INSULIN LISPRO (NovoLOG) PER UNIT SC SCH ×4 (08:30→21:00)
[2022-01-27] MEDS: OLANZapine 2.5MG TABLET PO SCH ×3 (08:40→21:41)
[2022-01-27] MEDS: LEVALBUTEROL 1.25 MG/0.5 ML CONCENTRATE NEB NEB SCH ×4 (09:03→20:00)
[2022-01-27] MEDS: CEFEPIME HCL 2 GM in D5W MINI-BAG PLUS 50 ML IV SCH ×2 (09:50→21:40)
[2022-01-27 10:56] LABS: TOTAL T3 < 10.0 NG/DL (60.0-181.0)
[2022-01-27] MEDS: VANCOMYCIN HCL 750 MG, VIAL MATE ADAPTER 1 EACH in D5W 250 ML IV SCH (11:59)
[2022-01-27 12:00] VITALS: BP 132/83
[2022-01-27 16:00] VITALS: BP 160/100
[2022-01-27 20:00] VITALS: BP 160/96
[2022-01-27] MEDS: PRAZOSIN 1 MG CAP PO SCH (21:41)
[2022-01-27] MEDS: QUEtiapine FUMARATE 100 MG TAB PO SCH (21:41)
[2022-01-28] VITALS (7 sets, daily range): BP systolic 115–151; BP diastolic 63–90
[2022-01-28] MEDS: VANCOMYCIN HCL 750 MG, VIAL MATE ADAPTER 1 EACH in D5W 250 ML IV SCH ×3 (00:18→23:39)
[2022-01-28] MEDS: HEPARIN SOD (PORCINE) 5000UNITS/ML 1ML VIAL/SYRINGE SQ SCH ×3 (05:46→20:20)
[2022-01-28] MEDS: LEVOTHYROXINE 150MCG TABLET (0.15MG) PO SCH (05:48)
[2022-01-28 07:11] LABS: HEMATOCRIT 32.1 % (36.0-47.0); HEMOGLOBIN 9.5 g/dl (12.0-15.5); MEAN CORPUSCULAR HGB CONC 29.6 g/dl (32.0-36.5); MEAN CORPUSCULAR VOLUME 87.7 fl (80.0-96.0); PLATELET COUNT, AUTOMATED 165 10^3/uL (150-450); RED BLOOD COUNT 3.66 10^6/uL (4.00-5.40); WHITE BLOOD COUNT 5.9 10^3/uL (4.0-10.0)
[2022-01-28 07:46] LABS: BILIRUBIN,TOTAL 0.2 MG/DL (0.2-1.0); CALCIUM LEVEL 8.6 MG/DL (8.5-10.1); CREATININE FOR GFR 1.37 MG/DL (0.55-1.30); GLOMERULAR FILTRATION RATE 45.7 (>60); POTASSIUM SERUM 3.8 MEQ/L (3.5-5.1); TOTAL PROTEIN 7.1 GM/DL (6.4-8.2)
[2022-01-28] MEDS: LEVALBUTEROL 1.25 MG/0.5 ML CONCENTRATE NEB NEB SCH ×4 (08:18→19:12)
[2022-01-28] MEDS: METHADONE 10MG TAB PO SCH (08:42)
[2022-01-28] MEDS: DOXYCYCLINE HYCLATE 100MG TABLET PO SCH (08:43)
[2022-01-28] MEDS: predniSONE 20 MG TAB PO SCH (08:43)
[2022-01-28] MEDS: GABAPENTIN 400MG CAP PO SCH ×3 (08:43→20:41)
[2022-01-28] MEDS: INSULIN LISPRO (NovoLOG) PER UNIT SC SCH ×4 (08:43→20:33)
[2022-01-28] MEDS: VENLAFAXINE **XR** 75MG CAPSULE PO SCH (08:43)
[2022-01-28] MEDS: OLANZapine 2.5MG TABLET PO SCH ×3 (08:43→20:42)
[2022-01-28] MEDS: NS 1,000 ML IV SCH (09:50)
[2022-01-28] MEDS: LR 1,000 ML IV SCH ×2 (14:19→23:39)
[2022-01-28] MEDS: PRAZOSIN 1 MG CAP PO SCH (20:42)
[2022-01-28] MEDS: QUEtiapine FUMARATE 100 MG TAB PO SCH (20:42)
[2022-01-29] VITALS: BP 124/58
[2022-01-29 04:00] VITALS: BP 132/84
[2022-01-29] MEDS: HEPARIN SOD (PORCINE) 5000UNITS/ML 1ML VIAL/SYRINGE SQ SCH ×3 (05:10→20:11)
[2022-01-29] MEDS: LEVOTHYROXINE 150MCG TABLET (0.15MG) PO SCH (06:02)
[2022-01-29 06:06] LABS: BASO # 0.1 10^3/uL (0.0-0.2); BASO % 0.8 % (0.0-1.0); EOS # 0.1 10^3/uL (0.0-0.5); EOS % 1.8 % (0.0-3.0); HEMATOCRIT 32.4 % (36.0-47.0); HEMOGLOBIN 9.7 g/dl (12.0-15.5); LYMPH # 1.9 10^3/uL (1.5-5.0); LYMPH % 30.8 % (24.0-44.0); MEAN CORPUSCULAR HEMOGLOBIN 25.8 pg (27.0-33.0); MEAN CORPUSCULAR HGB CONC 29.9 g/dl (32.0-36.5); MEAN CORPUSCULAR VOLUME 86.2 fl (80.0-96.0); MONO # 0.5 10^3/uL (0.0-0.8); NEUTROPHILS # 3.4 10^3/uL (1.5-8.5); PLATELET COUNT, AUTOMATED 167 10^3/uL (150-450); RED BLOOD COUNT 3.76 10^6/uL (4.00-5.40); WHITE BLOOD COUNT 6.1 10^3/uL (4.0-10.0)
[2022-01-29 06:34] LABS: CALCIUM LEVEL 8.6 MG/DL (8.5-10.1); CREATININE FOR GFR 1.5 MG/DL (0.55-1.30); GLOMERULAR FILTRATION RATE 41.2 (>60)
[2022-01-29] MEDS: INSULIN LISPRO (NovoLOG) PER UNIT SC SCH ×4 (07:30→20:11)
[2022-01-29] MEDS: VENLAFAXINE **XR** 75MG CAPSULE PO SCH (08:05)
[2022-01-29] MEDS: predniSONE 50 MG TAB PO SCH (08:05)
[2022-01-29] MEDS: GABAPENTIN 400MG CAP PO SCH ×3 (08:05→20:11)
[2022-01-29] MEDS: METHADONE 10MG TAB PO SCH (08:06)
[2022-01-29] MEDS: OLANZapine 2.5MG TABLET PO SCH ×3 (08:06→20:11)
[2022-01-29 08:51] VITALS: BP 151/86
[2022-01-29] MEDS: LEVALBUTEROL 1.25 MG/0.5 ML CONCENTRATE NEB NEB SCH ×4 (08:57→19:41)
[2022-01-29] MEDS ORDERED: LORazepam 0.5 MG TAB PO ONE (09:40)
[2022-01-29] MEDS ORDERED: LR 1,000 ML IV ONE (11:00)
[2022-01-29] MEDS: DOXYCYCLINE HYCLATE 100MG TABLET PO SCH ×2 (12:23→20:11)
[2022-01-29 12:33] VITALS: BP 151/87
[2022-01-29 16:00] VITALS: BP 159/87
[2022-01-29 16:11] LABS: CALCIUM LEVEL 9.1 MG/DL (8.5-10.1); CREATININE FOR GFR 1.5 MG/DL (0.55-1.30); GLOMERULAR FILTRATION RATE 41.2 (>60)
[2022-01-29 19:52] VITALS: BP 146/91
[2022-01-29] MEDS: PRAZOSIN 1 MG CAP PO SCH (20:10)
[2022-01-29] MEDS: QUEtiapine FUMARATE 100 MG TAB PO SCH (20:11)
[2022-01-30] MEDS: HEPARIN SOD (PORCINE) 5000UNITS/ML 1ML VIAL/SYRINGE SQ SCH (03:41)
[2022-01-30 04:11] VITALS: BP 161/99
[2022-01-30] MEDS: LEVOTHYROXINE 150MCG TABLET (0.15MG) PO SCH (05:09)
[2022-01-30 05:44] LABS: BASO # 0.1 10^3/uL (0.0-0.2); BASO % 0.9 % (0.0-1.0); EOS # 0.1 10^3/uL (0.0-0.5); EOS % 1.8 % (0.0-3.0); HEMATOCRIT 36.2 % (36.0-47.0); HEMOGLOBIN 10.6 g/dl (12.0-15.5); LYMPH # 1.7 10^3/uL (1.5-5.0); LYMPH % 30.5 % (24.0-44.0); MEAN CORPUSCULAR HEMOGLOBIN 25.4 pg (27.0-33.0); MEAN CORPUSCULAR HGB CONC 29.3 g/dl (32.0-36.5); MEAN CORPUSCULAR VOLUME 86.6 fl (80.0-96.0); MONO # 0.5 10^3/uL (0.0-0.8); MONO % 9.2 % (2.0-8.0); NEUTROPHILS % 54.3 % (36.0-66.0); PLATELET COUNT, AUTOMATED 137 10^3/uL (150-450); RED BLOOD COUNT 4.18 10^6/uL (4.00-5.40); WHITE BLOOD COUNT 5.5 10^3/uL (4.0-10.0)
[2022-01-30 06:26] LABS: CALCIUM LEVEL 8.8 MG/DL (8.5-10.1); CREATININE FOR GFR 1.49 MG/DL (0.55-1.30); GLOMERULAR FILTRATION RATE 41.5 (>60); POTASSIUM SERUM 4.1 MEQ/L (3.5-5.1)
[2022-01-30 07:44] VITALS: BP 101/68
[2022-01-30] MEDS: LEVALBUTEROL 1.25 MG/0.5 ML CONCENTRATE NEB NEB SCH (08:00)
[2022-01-30] MEDS: GABAPENTIN 400MG CAP PO SCH (08:12)
[2022-01-30] MEDS: INSULIN LISPRO (NovoLOG) PER UNIT SC SCH (08:12)
[2022-01-30] MEDS: METHADONE 10MG TAB PO SCH (08:12)
[2022-01-30] MEDS: DOXYCYCLINE HYCLATE 100MG TABLET PO SCH (08:12)
[2022-01-30] MEDS: VENLAFAXINE **XR** 75MG CAPSULE PO SCH (08:12)
[2022-01-30] MEDS: OLANZapine 2.5MG TABLET PO SCH (08:20)
[2022-01-30] MEDS: predniSONE 50 MG TAB PO SCH (08:20)
[2022-01-30] MEDS ORDERED: PRED50TA PO (09:27)
[2022-01-30] MEDS ORDERED: DOXY100T PO (09:27)
[2022-01-30] MEDS ORDERED: SYNT150T PO (09:29)
[2022-02-01] MEDS ORDERED: predniSONE 20 MG TAB PO SCH (09:00)
[2022-02-04] MEDS ORDERED: predniSONE 10 MG TAB PO SCH (09:00)
[2022-02-07] MEDS ORDERED: predniSONE 20 MG TAB PO SCH (09:00)
[2022-02-10] MEDS ORDERED: predniSONE 10 MG TAB PO SCH (09:00)
[2022-02-13] MEDS ORDERED: predniSONE 5 MG TAB PO SCH (09:00)
== END 2022-01-30 11:26 | disposition home or self-care (01) | DRG 720 ==
LOC: M ED 12:08 → M ED INP 17:02 → OBSVTOIN 17:02 → ENRESERV 19:08 → M PCU 19:51
PROVIDERS: ADMIT Internal Medicine; ATTEND Student in an Organized Health Care Education/Training Program
DX: A41.9 Sepsis, unspecified organism (principal); J96.01 Acute respiratory failure with hypoxia; J15.212 Pneumonia due to Methicillin resistant Staphylococcus aureus; N17.9 Acute kidney failure, unspecified; J38.00 Paralysis of vocal cords and larynx, unspecified; J38.6 Stenosis of larynx; J45.901 Unspecified asthma with (acute) exacerbation; Z68.41 Body mass index [BMI] 40.0-44.9, adult; E86.0 Dehydration; Z93.0 Tracheostomy status; F25.9 Schizoaffective disorder, unspecified; E66.01 Morbid (severe) obesity due to excess calories; E03.9 Hypothyroidism, unspecified; R94.31 Abnormal electrocardiogram [ECG] [EKG]; F32.9 Major depressive disorder, single episode, unspecified; F41.1 Generalized anxiety disorder; F60.3 Borderline personality disorder; T38.0X5A Adverse effect of glucocorticoids and synthetic analogues, initial encounter; F43.10 Post-traumatic stress disorder, unspecified; D64.9 Anemia, unspecified; D86.9 Sarcoidosis, unspecified; R73.9 Hyperglycemia, unspecified; F10.20 Alcohol dependence, uncomplicated; Y95 Nosocomial condition; Z87.891 Personal history of nicotine dependence; Z91.14 Patient's other noncompliance with medication regimen; Z91.51 Personal history of suicidal behavior; Z86.14 Personal history of Methicillin resistant Staphylococcus aureus infection; Z79.890 Hormone replacement therapy; Z79.899 Other long term (current) drug therapy

== ENCOUNTER → 2022-02-04 | Outpatient (CLI) | payer OTHER ==
[~2022-02-04] MED LIST changes: +PRED50TA PO; +QUET150T14; +QUET150T14 PO; -QUET150T2; -QUET150T2 PO
[2022-02-04 09:28] LABS: ALBUMIN 3.6 GM/DL (3.2-5.2); BILIRUBIN,TOTAL 0.3 MG/DL (0.2-1.0); CALCIUM LEVEL 9.1 MG/DL (8.5-10.1); CREATININE FOR GFR 1.43 MG/DL (0.55-1.30); GLOMERULAR FILTRATION RATE 43.5 (>60); POTASSIUM SERUM 4.9 MEQ/L (3.5-5.1); THYROID STIMULATING HORMONE 32.1 uIU/ML (0.358-3.740); TOTAL PROTEIN 7.8 GM/DL (6.4-8.2)
== END ==
LOC: M LAB 08:03
PROVIDERS: ATTEND Student in an Organized Health Care Education/Training Program
DX: E07.9 Disorder of thyroid, unspecified (principal)

== ENCOUNTER 2022-02-11 09:55 | Emergency (ER) | payer OTHER ==
[2022-02-11] MEDS ORDERED: dexameTHASONE 20MG/5ML VIAL (J1100 PER 1MG) IV ONE (10:05)
[2022-02-11 10:11] VITALS: BP 138/74
[2022-02-11 10:45] LABS: BASO # 0.1 10^3/uL (0.0-0.2); BASO % 0.5 % (0.0-1.0); EOS # 0.2 10^3/uL (0.0-0.5); EOS % 2.2 % (0.0-3.0); HEMATOCRIT 35.5 % (36.0-47.0); HEMOGLOBIN 10.8 g/dl (12.0-15.5); LYMPH # 1.6 10^3/uL (1.5-5.0); LYMPH % 16.6 % (24.0-44.0); MEAN CORPUSCULAR HEMOGLOBIN 25.5 pg (27.0-33.0); MEAN CORPUSCULAR HGB CONC 30.4 g/dl (32.0-36.5); MEAN CORPUSCULAR VOLUME 83.7 fl (80.0-96.0); MONO # 0.7 10^3/uL (0.0-0.8); MONO % 7.2 % (2.0-8.0); NEUTROPHILS # 6.8 10^3/uL (1.5-8.5); NEUTROPHILS % 72.8 % (36.0-66.0); PLATELET COUNT, AUTOMATED 160 10^3/uL (150-450); RED BLOOD COUNT 4.24 10^6/uL (4.00-5.40); WHITE BLOOD COUNT 9.4 10^3/uL (4.0-10.0)
[2022-02-11] MEDS ORDERED: ACETAMINOPHEN 325 MG TAB PO ONE (10:55)
[2022-02-11 11:55] LABS: CREATININE FOR GFR 1.38 MG/DL (0.55-1.30); GLOMERULAR FILTRATION RATE 45.3 (>60)
[2022-02-11 11:56] LABS: ALBUMIN 3.5 GM/DL (3.2-5.2); BILIRUBIN,DIRECT 0.2 MG/DL (0.0-0.2); BILIRUBIN,TOTAL 0.6 MG/DL (0.2-1.0); CALCIUM LEVEL 8.4 MG/DL (8.5-10.1); TOTAL PROTEIN 7.4 GM/DL (6.4-8.2)
[2022-02-11 11:57] LABS: THYROXINE (T4) 3.6 UG/DL (4.5-12.0)
[2022-02-11 11:58] LABS: THYROID STIMULATING HORMONE 86.4 uIU/ML (0.358-3.740)
== END 2022-02-11 12:04 | disposition left against medical advice (07) ==
LOC: M ED 09:55 → EDBD 09:55 → M ED 12:04
DX: J95.09 Other tracheostomy complication (principal); F19.10 Other psychoactive substance abuse, uncomplicated; Z79.890 Hormone replacement therapy; Z79.899 Other long term (current) drug therapy; Z53.29 Procedure and treatment not carried out because of patient's decision for other reasons
CPT/HCPCS: 71045; 80048; 80076; 84436; 84443; 85025; 93041; 94760; 96374; 99284; J1100

== ENCOUNTER 2022-03-07 18:28 | Emergency (ER) | payer OTHER ==
[~2022-03-07] VITALS: Ht 160 cm; Wt 118.2 kg
[2022-03-07 22:02] LABS: BASO % 0.7 % (0.0-1.0); EOS # 0.1 10^3/uL (0.0-0.5); EOS % 2.1 % (0.0-3.0); HEMATOCRIT 31.9 % (36.0-47.0); HEMOGLOBIN 9.7 g/dl (12.0-15.5); LYMPH # 1.3 10^3/uL (1.5-5.0); LYMPH % 23.1 % (24.0-44.0); MEAN CORPUSCULAR HEMOGLOBIN 25.4 pg (27.0-33.0); MEAN CORPUSCULAR HGB CONC 30.4 g/dl (32.0-36.5); MEAN CORPUSCULAR VOLUME 83.5 fl (80.0-96.0); MONO # 0.6 10^3/uL (0.0-0.8); MONO % 9.9 % (2.0-8.0); NEUTROPHILS # 3.5 10^3/uL (1.5-8.5); NEUTROPHILS % 62.1 % (36.0-66.0); PLATELET COUNT, AUTOMATED 153 10^3/uL (150-450); RED BLOOD COUNT 3.82 10^6/uL (4.00-5.40); WHITE BLOOD COUNT 5.6 10^3/uL (4.0-10.0)
[2022-03-07] MEDS ORDERED: ISOVUE-370 76% 100ML VIAL As Ordered ONE (22:45)
[2022-03-07 23:12] VITALS: O2SAT 92
[2022-03-08 00:15] VITALS: BP 92/60
== END 2022-03-08 00:57 | disposition home or self-care (01) ==
LOC: M ED 18:28
DX: J95.00 Unspecified tracheostomy complication (principal); J98.11 Atelectasis; J45.909 Unspecified asthma, uncomplicated; F19.10 Other psychoactive substance abuse, uncomplicated; F43.10 Post-traumatic stress disorder, unspecified; F90.9 Attention-deficit hyperactivity disorder, unspecified type; N18.9 Chronic kidney disease, unspecified; Z79.890 Hormone replacement therapy; Z79.899 Other long term (current) drug therapy

== ENCOUNTER 2022-04-19 10:13 | Inpatient (IN) | payer OTHER ==
[~2022-04-19] VITALS: Ht 160 cm; Wt 121.1 kg
[2022-04-19 10:49] LABS: BASO % 0.4 % (0.0-1.0); EOS # 0.2 10^3/uL (0.0-0.5); EOS % 2.1 % (0.0-3.0); HEMATOCRIT 32.7 % (36.0-47.0); HEMOGLOBIN 9.8 g/dl (12.0-15.5); LYMPH # 0.7 10^3/uL (1.5-5.0); LYMPH % 9.4 % (24.0-44.0); MEAN CORPUSCULAR HEMOGLOBIN 24.7 pg (27.0-33.0); MEAN CORPUSCULAR VOLUME 82.4 fl (80.0-96.0); MONO # 0.5 10^3/uL (0.0-0.8); MONO % 6.3 % (2.0-8.0); NEUTROPHILS # 5.8 10^3/uL (1.5-8.5); PLATELET COUNT, AUTOMATED 145 10^3/uL (150-450); RED BLOOD COUNT 3.97 10^6/uL (4.00-5.40); WHITE BLOOD COUNT 7.1 10^3/uL (4.0-10.0)
[2022-04-19] MEDS ORDERED: ACETAMINOPHEN TAB 650MG DOSE (2X325MG) PO ONE (11:00)
[2022-04-19 11:15] LABS: ALBUMIN 3.5 G/DL (3.2-5.2); ALKALINE PHOSPHATASE 133 U/L (46-116); ALT/SGPT 13 U/L (7.0-40); AST/SGOT 17 U/L (<34); BILIRUBIN,DIRECT 0.1 MG/DL (<0.4); BILIRUBIN,TOTAL 0.3 MG/DL (0.3-1.2); BLOOD UREA NITROGEN 11 MG/DL (9-23); CALCIUM LEVEL 8.5 MG/DL (8.5-10.1); CARBON DIOXIDE LEVEL 28 MMOL/L (20-31); CHLORIDE LEVEL 100 MMOL/L (98-107); CREATININE FOR GFR 1.59 MG/DL (0.55-1.30); GLOMERULAR FILTRATION RATE 38.3 (>58); GLUCOSE, FASTING 114 MG/DL (60-100); POTASSIUM SERUM 4.6 MMOL/L (3.5-5.1); SODIUM LEVEL 137 MMOL/L (136-145); TOTAL PROTEIN 6.7 G/DL (5.7-8.2)
[2022-04-19 11:17] LABS: FREE T4 < 0.10 NG/DL (0.89-1.76)
[2022-04-19 11:40] LABS: THYROID STIMULATING HORMONE > 150.000 uIU/ML (0.55-4.78)
[2022-04-19] MEDS ORDERED: hydrOXYzine 50 MG TAB PO SCH (14:00)
[2022-04-19] MEDS ORDERED: PRAZ5CAP PO (15:29)
[2022-04-19] MEDS ORDERED: QUET200T79 PO (15:29)
[2022-04-19] MEDS ORDERED: VENL75CA47 PO (15:29)
[2022-04-19] MEDS ORDERED: LEVO150T7 PO (15:37)
[2022-04-19] MEDS ORDERED: HOME MED LIST COMPLETE! XX SCH (15:40)
[2022-04-19] MEDS ORDERED: OLANZapine 5 MG TAB PO SCH (16:00)
[2022-04-19] MEDS ORDERED: IPRATROPIUM 0.5MG/ALBUTEROL 2.5MG INH SOL UD 3ML (DUONEB) NEB PRN (17:25)
[2022-04-19] MEDS ORDERED: REMDESIVIR 200 MG in NS 250 ML IV ONE (18:00)
[2022-04-19] MEDS ORDERED: SODIUM CHLORIDE 0.9% INJ 10 ML SYR IV ONE (19:00)
[2022-04-19] MEDS: GABAPENTIN 300 MG CAP PO SCH (20:25)
[2022-04-19] MEDS: QUEtiapine FUMARATE **XR** 200MG TABLET PO SCH (20:26)
[2022-04-19] MEDS: hydrOXYzine 50 MG TAB PO PRN (20:26)
[2022-04-19] MEDS: traZODone 50 MG TAB PO SCH (20:26)
[2022-04-19] MEDS: QUEtiapine FUMARATE 100 MG TAB PO SCH (20:26)
[2022-04-19] MEDS: PRAZOSIN 1 MG CAP PO SCH (20:27)
[2022-04-19] MEDS ORDERED: QUEtiapine FUMARATE 100 MG TAB PO SCH (21:00)
[2022-04-19] MEDS ORDERED: PRAZOSIN 1 MG CAP PO SCH (21:00)
[2022-04-19 21:25] VITALS: BP 122/70
[2022-04-19] MEDS: LEVOTHYROXINE 150MCG TABLET (0.15MG) PO SCH (21:33)
[2022-04-19] MEDS: HEPARIN SOD (PORCINE) 5000UNITS/ML 1ML VIAL/SYRINGE SC SCH (22:25)
[2022-04-20 05:30] VITALS: BP 100/56
[2022-04-20 06:21] LABS: HEMATOCRIT 30.2 % (36.0-47.0); HEMOGLOBIN 9.2 g/dl (12.0-15.5); MEAN CORPUSCULAR HEMOGLOBIN 25.3 pg (27.0-33.0); MEAN CORPUSCULAR HGB CONC 30.5 g/dl (32.0-36.5); MEAN CORPUSCULAR VOLUME 83.2 fl (80.0-96.0); PLATELET COUNT, AUTOMATED 121 10^3/uL (150-450); RED BLOOD COUNT 3.63 10^6/uL (4.00-5.40); WHITE BLOOD COUNT 4.6 10^3/uL (4.0-10.0)
[2022-04-20 06:54] LABS: ALBUMIN 3.2 G/DL (3.2-5.2); BILIRUBIN,TOTAL 0.3 MG/DL (0.3-1.2); CALCIUM LEVEL 7.9 MG/DL (8.5-10.1); CREATININE FOR GFR 1.5 MG/DL (0.55-1.30); GLOMERULAR FILTRATION RATE 40.9 (>58); POTASSIUM SERUM 3.9 MMOL/L (3.5-5.1); TOTAL PROTEIN 6.4 G/DL (5.7-8.2)
[2022-04-20] MEDS: LEVOTHYROXINE 150MCG TABLET (0.15MG) PO SCH (06:56)
[2022-04-20] MEDS: HEPARIN SOD (PORCINE) 5000UNITS/ML 1ML VIAL/SYRINGE SC SCH ×3 (06:56→21:38)
[2022-04-20] MEDS ORDERED: VENLAFAXINE **XR** 75MG CAPSULE PO SCH (09:00)
[2022-04-20] MEDS ORDERED: METHADONE 5MG TAB PO SCH (09:00)
[2022-04-20] MEDS ORDERED: METHADONE 10MG TAB PO SCH (09:00)
[2022-04-20] MEDS: GABAPENTIN 300 MG CAP PO SCH ×3 (09:20→21:38)
[2022-04-20] MEDS: VENLAFAXINE **XR** 75MG CAPSULE PO SCH ×2 (09:20)
[2022-04-20] MEDS ORDERED: VANCOMYCIN HCL 750 MG, VIAL MATE ADAPTER 1 EACH in NS 250 ML IV SCH (10:05)
[2022-04-20] MEDS ORDERED: guaiFENesin 200 MG TAB PO PRN (10:15)
[2022-04-20 10:27] LABS: C REACTIVE PROTEIN QUANTITATIV 6.1 MG/DL (<1.0)
[2022-04-20] MEDS ORDERED: D5/0.9%NACL 1000ML IV ONE (10:30)
[2022-04-20 10:33] LABS: ERYTHROCYTE SEDIMENTATION RATE 33 mm/hr (0-20)
[2022-04-20] MEDS ORDERED: METHADONE 10MG TAB PO ONE (11:00)
[2022-04-20] MEDS: D5W/0.9% SODIUM CHLORIDE 1,000 ML IV SCH (11:27)
[2022-04-20] MEDS ORDERED: VANCOMYCIN HCL 1,000 MG, VIAL MATE ADAPTER 1 EACH in NS 250 ML IV ONE ×2 (12:00→13:00)
[2022-04-20 13:35] VITALS: O2SAT 96
[2022-04-20 14:00] VITALS: BP 106/58
[2022-04-20] MEDS: REMDESIVIR 100 MG in NS 250 ML IV SCH (17:31)
[2022-04-20] MEDS: SODIUM CHLORIDE 0.9% INJ 10 ML SYR IV SCH (17:34)
[2022-04-20 20:00] VITALS: BP 127/64
[2022-04-20] MEDS: QUEtiapine FUMARATE 100 MG TAB PO SCH (21:38)
[2022-04-20] MEDS: traZODone 50 MG TAB PO SCH (21:38)
[2022-04-20 21:40] VITALS: O2SAT 92
[2022-04-20] MEDS: QUEtiapine FUMARATE **XR** 200MG TABLET PO SCH (22:37)
[2022-04-20] MEDS: PRAZOSIN 1 MG CAP PO SCH (22:38)
[2022-04-20] MEDS ORDERED: VANCOMYCIN HCL 750 MG, VIAL MATE ADAPTER 1 EACH in D5W 250 ML IV SCH (23:00)
[2022-04-21] VITALS (7 sets, daily range): BP systolic 100–165; BP diastolic 64–89; O2SAT 70–96
[2022-04-21] MEDS: D5W/0.9% SODIUM CHLORIDE 1,000 ML IV SCH (00:28)
[2022-04-21] MEDS: HEPARIN SOD (PORCINE) 5000UNITS/ML 1ML VIAL/SYRINGE SC SCH ×3 (05:55→20:36)
[2022-04-21] MEDS: LEVOTHYROXINE 150MCG TABLET (0.15MG) PO SCH (06:07)
[2022-04-21 06:30] LABS: BASO % 0.7 % (0.0-1.0); EOS # 0.1 10^3/uL (0.0-0.5); EOS % 1.7 % (0.0-3.0); HEMATOCRIT 30.2 % (36.0-47.0); HEMOGLOBIN 8.8 g/dl (12.0-15.5); LYMPH # 0.9 10^3/uL (1.5-5.0); LYMPH % 22.1 % (24.0-44.0); MEAN CORPUSCULAR HEMOGLOBIN 24.6 pg (27.0-33.0); MEAN CORPUSCULAR HGB CONC 29.1 g/dl (32.0-36.5); MEAN CORPUSCULAR VOLUME 84.4 fl (80.0-96.0); MONO # 0.4 10^3/uL (0.0-0.8); MONO % 10.4 % (2.0-8.0); NEUTROPHILS # 2.6 10^3/uL (1.5-8.5); NEUTROPHILS % 64.1 % (36.0-66.0); PLATELET COUNT, AUTOMATED 121 10^3/uL (150-450); RED BLOOD COUNT 3.58 10^6/uL (4.00-5.40)
[2022-04-21 06:56] LABS: MAGNESIUM LEVEL 2.1 MG/DL (1.8-2.4)
[2022-04-21 06:57] LABS: BILIRUBIN,TOTAL 0.3 MG/DL (0.3-1.2); CALCIUM LEVEL 7.8 MG/DL (8.5-10.1); CREATININE FOR GFR 1.42 MG/DL (0.55-1.30); GLOMERULAR FILTRATION RATE 43.6 (>58); POTASSIUM SERUM 3.9 MMOL/L (3.5-5.1); TOTAL PROTEIN 6.1 G/DL (5.7-8.2)
[2022-04-21] MEDS: VENLAFAXINE **XR** 75MG CAPSULE PO SCH ×2 (09:16)
[2022-04-21] MEDS: METHADONE 10MG TAB PO SCH (09:17)
[2022-04-21] MEDS: GABAPENTIN 300 MG CAP PO SCH ×3 (09:17→20:35)
[2022-04-21] MEDS: VANCOMYCIN HCL 750 MG, VIAL MATE ADAPTER 1 EACH in D5W 250 ML IV SCH (14:36)
[2022-04-21] MEDS: hydrOXYzine 50 MG TAB PO PRN (15:22)
[2022-04-21] MEDS: REMDESIVIR 100 MG in NS 250 ML IV SCH (17:38)
[2022-04-21] MEDS: SODIUM CHLORIDE 0.9% INJ 10 ML SYR IV SCH (18:51)
[2022-04-21] MEDS: QUEtiapine FUMARATE **XR** 200MG TABLET PO SCH (20:35)
[2022-04-21] MEDS: QUEtiapine FUMARATE 100 MG TAB PO SCH (20:35)
[2022-04-21] MEDS: traZODone 50 MG TAB PO SCH (20:35)
[2022-04-21] MEDS: PRAZOSIN 1 MG CAP PO SCH (20:36)
[2022-04-22] MEDS: hydrOXYzine 50 MG TAB PO PRN ×2 (00:52→12:29)
[2022-04-22] MEDS: VANCOMYCIN HCL 750 MG, VIAL MATE ADAPTER 1 EACH in D5W 250 ML IV SCH ×2 (02:20→14:31)
[2022-04-22] MEDS: HEPARIN SOD (PORCINE) 5000UNITS/ML 1ML VIAL/SYRINGE SC SCH ×3 (04:39→20:18)
[2022-04-22] MEDS: LEVOTHYROXINE 150MCG TABLET (0.15MG) PO SCH (05:27)
[2022-04-22 06:00] VITALS: BP 118/68
[2022-04-22 06:13] LABS: BASO % 0.9 % (0.0-1.0); EOS # 0.1 10^3/uL (0.0-0.5); EOS % 2.6 % (0.0-3.0); HEMATOCRIT 31.7 % (36.0-47.0); HEMOGLOBIN 9.2 g/dl (12.0-15.5); LYMPH # 1.4 10^3/uL (1.5-5.0); LYMPH % 31.3 % (24.0-44.0); MEAN CORPUSCULAR HEMOGLOBIN 24.5 pg (27.0-33.0); MEAN CORPUSCULAR VOLUME 84.5 fl (80.0-96.0); MONO # 0.4 10^3/uL (0.0-0.8); NEUTROPHILS # 2.4 10^3/uL (1.5-8.5); NEUTROPHILS % 54.8 % (36.0-66.0); PLATELET COUNT, AUTOMATED 131 10^3/uL (150-450); RED BLOOD COUNT 3.75 10^6/uL (4.00-5.40); WHITE BLOOD COUNT 4.3 10^3/uL (4.0-10.0)
[2022-04-22 06:41] LABS: MAGNESIUM LEVEL 2.2 MG/DL (1.8-2.4)
[2022-04-22 06:43] LABS: ALBUMIN 3.2 G/DL (3.2-5.2); BILIRUBIN,TOTAL 0.3 MG/DL (0.3-1.2); CALCIUM LEVEL 7.9 MG/DL (8.5-10.1); CREATININE FOR GFR 1.43 MG/DL (0.55-1.30); GLOMERULAR FILTRATION RATE 43.3 (>58); POTASSIUM SERUM 3.9 MMOL/L (3.5-5.1); TOTAL PROTEIN 6.4 G/DL (5.7-8.2)
[2022-04-22] MEDS: METHADONE 10MG TAB PO SCH (08:09)
[2022-04-22] MEDS: VENLAFAXINE **XR** 75MG CAPSULE PO SCH ×2 (08:09→08:10)
[2022-04-22] MEDS: GABAPENTIN 300 MG CAP PO SCH ×3 (08:10→20:18)
[2022-04-22] MEDS: OLANZapine 2.5MG TABLET PO PRN (12:29)
[2022-04-22 14:00] VITALS: BP 144/93
[2022-04-22] MEDS: REMDESIVIR 100 MG in NS 250 ML IV SCH (17:21)
[2022-04-22] MEDS ORDERED: hydrOXYzine 50 MG TAB PO ONE (17:35)
[2022-04-22] MEDS: SODIUM CHLORIDE 0.9% INJ 10 ML SYR IV SCH (18:38)
[2022-04-22 20:18] VITALS: O2SAT 92
[2022-04-22] MEDS: QUEtiapine FUMARATE **XR** 200MG TABLET PO SCH (20:18)
[2022-04-22] MEDS: traZODone 50 MG TAB PO SCH (20:18)
[2022-04-22] MEDS: QUEtiapine FUMARATE 100 MG TAB PO SCH (20:18)
[2022-04-22] MEDS: PRAZOSIN 1 MG CAP PO SCH (20:19)
[2022-04-22 22:00] VITALS: BP 146/92
[2022-04-23] MEDS: VANCOMYCIN HCL 750 MG, VIAL MATE ADAPTER 1 EACH in D5W 250 ML IV SCH ×3 (02:29→17:10)
[2022-04-23] MEDS: HEPARIN SOD (PORCINE) 5000UNITS/ML 1ML VIAL/SYRINGE SC SCH ×3 (05:49→19:56)
[2022-04-23] MEDS: ACETAMINOPHEN TAB 650MG DOSE (2X325MG) PO PRN ×3 (05:50→19:55)
[2022-04-23] MEDS: LEVOTHYROXINE 150MCG TABLET (0.15MG) PO SCH (05:50)
[2022-04-23 06:00] VITALS: BP 118/71
[2022-04-23 06:08] LABS: HEMATOCRIT 32.1 % (36.0-47.0); HEMOGLOBIN 9.3 g/dl (12.0-15.5); MEAN CORPUSCULAR HEMOGLOBIN 24.5 pg (27.0-33.0); MEAN CORPUSCULAR VOLUME 84.7 fl (80.0-96.0); PLATELET COUNT, AUTOMATED 121 10^3/uL (150-450); RED BLOOD COUNT 3.79 10^6/uL (4.00-5.40); WHITE BLOOD COUNT 4.5 10^3/uL (4.0-10.0)
[2022-04-23 06:30] LABS: ALBUMIN 3.3 G/DL (3.2-5.2); BILIRUBIN,TOTAL 0.2 MG/DL (0.3-1.2); CREATININE FOR GFR 1.42 MG/DL (0.55-1.30); GLOMERULAR FILTRATION RATE 43.6 (>58); POTASSIUM SERUM 3.8 MMOL/L (3.5-5.1); TOTAL PROTEIN 6.4 G/DL (5.7-8.2)
[2022-04-23 07:22] LABS: ANISOCYTOSIS 1+; ATYPICAL LYMPH 6 % (0-5); BASOPHILS 4 % (0-1); EOSINOPHILS 3 % (0-3); LYMPHOCYTES 24 % (16-44); METAMYELOCYTES 2 % (0-0); MONOCYTES 5 % (0-5); MYELOCYTES 1 % (0-0); NEUTROPHILS 53 % (28-66); OVALOCYTES 1+; PLATELET ESTIMATE NORMAL (NORMAL); TEAR DROP CELLS 1+
[2022-04-23 07:23] LABS: HYPOCHROMASIA 2+
[2022-04-23] MEDS: GABAPENTIN 300 MG CAP PO SCH ×3 (09:24→19:55)
[2022-04-23] MEDS: METHADONE 10MG TAB PO SCH (09:24)
[2022-04-23] MEDS: VENLAFAXINE **XR** 75MG CAPSULE PO SCH ×2 (09:24→10:51)
[2022-04-23 14:00] VITALS: BP 124/69
[2022-04-23] MEDS: hydrOXYzine 50 MG TAB PO PRN (15:22)
[2022-04-23] MEDS: OLANZapine 2.5MG TABLET PO PRN (15:22)
[2022-04-23] MEDS: REMDESIVIR 100 MG in NS 250 ML IV SCH (18:36)
[2022-04-23] MEDS: SODIUM CHLORIDE 0.9% INJ 10 ML SYR IV SCH (18:36)
[2022-04-23 18:40] VITALS: BP 137/79
[2022-04-23] MEDS: QUEtiapine FUMARATE **XR** 200MG TABLET PO SCH (19:53)
[2022-04-23] MEDS: traZODone 50 MG TAB PO SCH (19:54)
[2022-04-23] MEDS: QUEtiapine FUMARATE 100 MG TAB PO SCH (19:54)
[2022-04-23] MEDS: PRAZOSIN 1 MG CAP PO SCH (19:55)
[2022-04-23 22:55] VITALS: BP 124/77
[2022-04-24] MEDS: LEVOTHYROXINE 150MCG TABLET (0.15MG) PO SCH (05:22)
[2022-04-24] MEDS: HEPARIN SOD (PORCINE) 5000UNITS/ML 1ML VIAL/SYRINGE SC SCH ×3 (05:23→21:41)
[2022-04-24 06:00] VITALS: BP 137/88
[2022-04-24 06:20] LABS: HEMATOCRIT 32.1 % (36.0-47.0); HEMOGLOBIN 9.5 g/dl (12.0-15.5); MEAN CORPUSCULAR HEMOGLOBIN 24.9 pg (27.0-33.0); MEAN CORPUSCULAR HGB CONC 29.6 g/dl (32.0-36.5); MEAN CORPUSCULAR VOLUME 84.3 fl (80.0-96.0); PLATELET COUNT, AUTOMATED 134 10^3/uL (150-450); RED BLOOD COUNT 3.81 10^6/uL (4.00-5.40); WHITE BLOOD COUNT 5.4 10^3/uL (4.0-10.0)
[2022-04-24 06:36] LABS: MAGNESIUM LEVEL 2.1 MG/DL (1.8-2.4)
[2022-04-24 06:38] LABS: ALBUMIN 3.4 G/DL (3.2-5.2); BILIRUBIN,TOTAL 0.2 MG/DL (0.3-1.2); CALCIUM LEVEL 8.4 MG/DL (8.5-10.1); CREATININE FOR GFR 1.47 MG/DL (0.55-1.30); GLOMERULAR FILTRATION RATE 41.9 (>58); TOTAL PROTEIN 6.3 G/DL (5.7-8.2)
[2022-04-24 07:46] VITALS: BP 119/93
[2022-04-24 08:01] LABS: ATYPICAL LYMPH 5 % (0-5); BASOPHILS 1 % (0-1); EOSINOPHILS 1 % (0-3); LYMPHOCYTES 24 % (16-44); MONOCYTES 3 % (0-5); NEUTROPHILS 66 % (28-66)
[2022-04-24 08:02] LABS: PLATELET ESTIMATE NORMAL (NORMAL); POLYCHROMASIA 1+; TEAR DROP CELLS 1+
[2022-04-24 08:03] LABS: ANISOCYTOSIS 1+; MICROCYTOSIS 1+
[2022-04-24 08:04] LABS: HYPOCHROMASIA 1+
[2022-04-24] MEDS: METHADONE 10MG TAB PO SCH (08:23)
[2022-04-24] MEDS: VENLAFAXINE **XR** 75MG CAPSULE PO SCH ×2 (08:23→08:24)
[2022-04-24] MEDS: GABAPENTIN 300 MG CAP PO SCH ×3 (08:24→21:44)
[2022-04-24] MEDS ORDERED: VARIBAR NECTAR 40% w/v 240ML SUSP BTL As Ordered ONE (12:41)
[2022-04-24] MEDS ORDERED: VARIBAR PUDDING 40% w/v 230ML TUBE As Ordered ONE (12:41)
[2022-04-24] MEDS ORDERED: E-Z-PAQUE 96% w/w SUSP 176GM BTL As Ordered ONE (12:42)
[2022-04-24] MEDS ORDERED: LIDOCAINE 1% MDV 20ML VIAL As Ordered ONE (13:25)
[2022-04-24] MEDS: OLANZapine 2.5MG TABLET PO PRN (15:10)
[2022-04-24] MEDS: hydrOXYzine 50 MG TAB PO PRN (15:11)
[2022-04-24] MEDS: VANCOMYCIN HCL 750 MG, VIAL MATE ADAPTER 1 EACH in D5W 250 ML IV SCH ×2 (15:12→16:42)
[2022-04-24 15:15] VITALS: BP 136/83
[2022-04-24] MEDS ORDERED: SODIUM CHLORIDE 0.9% INJ 10 ML SYR IV PRN ×2 (15:15→18:00)
[2022-04-24] MEDS ORDERED: SODIUM CHLORIDE 0.9% INJ 10 ML SYR IV SCH (18:00)
[2022-04-24] MEDS: SODIUM CHLORIDE 0.9% INJ 10 ML SYR IV SCH (18:27)
[2022-04-24 19:43] VITALS: BP 147/80
[2022-04-24] MEDS: traZODone 50 MG TAB PO SCH (21:43)
[2022-04-24] MEDS: PRAZOSIN 1 MG CAP PO SCH (21:43)
[2022-04-24] MEDS: QUEtiapine FUMARATE **XR** 200MG TABLET PO SCH (21:43)
[2022-04-24] MEDS: QUEtiapine FUMARATE 100 MG TAB PO SCH (21:44)
[2022-04-24] MEDS: ACETAMINOPHEN TAB 650MG DOSE (2X325MG) PO PRN (21:44)
[2022-04-24 23:42] VITALS: O2SAT 93
[2022-04-25] MEDS: SODIUM CHLORIDE 0.9% INJ 10 ML SYR IV SCH ×2 (05:58→17:55)
[2022-04-25] MEDS: LEVOTHYROXINE 150MCG TABLET (0.15MG) PO SCH (05:58)
[2022-04-25] MEDS: HEPARIN SOD (PORCINE) 5000UNITS/ML 1ML VIAL/SYRINGE SC SCH ×3 (05:59→21:24)
[2022-04-25 06:02] LABS: HEMATOCRIT 32.5 % (36.0-47.0); HEMOGLOBIN 9.5 g/dl (12.0-15.5); MEAN CORPUSCULAR HEMOGLOBIN 24.7 pg (27.0-33.0); MEAN CORPUSCULAR HGB CONC 29.2 g/dl (32.0-36.5); MEAN CORPUSCULAR VOLUME 84.6 fl (80.0-96.0); PLATELET COUNT, AUTOMATED 126 10^3/uL (150-450); RED BLOOD COUNT 3.84 10^6/uL (4.00-5.40); WHITE BLOOD COUNT 5.5 10^3/uL (4.0-10.0)
[2022-04-25 06:03] VITALS: BP 144/85
[2022-04-25 06:26] LABS: VANCOMYCIN RANDOM 19.2 UG/ML
[2022-04-25 06:28] LABS: C REACTIVE PROTEIN QUANTITATIV 1.3 MG/DL (<1.0); MAGNESIUM LEVEL 2.2 MG/DL (1.8-2.4)
[2022-04-25 06:30] LABS: ALBUMIN 3.4 G/DL (3.2-5.2); BILIRUBIN,TOTAL 0.3 MG/DL (0.3-1.2); CALCIUM LEVEL 8.6 MG/DL (8.5-10.1); CREATININE FOR GFR 1.47 MG/DL (0.55-1.30); GLOMERULAR FILTRATION RATE 41.9 (>58); POTASSIUM SERUM 3.8 MMOL/L (3.5-5.1); TOTAL PROTEIN 6.3 G/DL (5.7-8.2)
[2022-04-25 06:51] LABS: ANISOCYTOSIS 2+; ATYPICAL LYMPH 2 % (0-5); EOSINOPHILS 2 % (0-3); LYMPHOCYTES 29 % (16-44); MONOCYTES 6 % (0-5); NEUTROPHILS 60 % (28-66); PLATELET ESTIMATE NORMAL (NORMAL)
[2022-04-25 06:52] LABS: MICROCYTOSIS 2+; OVALOCYTES 1+; POLYCHROMASIA 1+; TEAR DROP CELLS 1+
[2022-04-25] MEDS: GABAPENTIN 300 MG CAP PO SCH ×3 (09:48→20:24)
[2022-04-25] MEDS: VENLAFAXINE **XR** 75MG CAPSULE PO SCH ×2 (09:48)
[2022-04-25] MEDS: METHADONE 10MG TAB PO SCH (09:49)
[2022-04-25] MEDS: ACETAMINOPHEN TAB 650MG DOSE (2X325MG) PO PRN ×2 (09:49→20:25)
[2022-04-25] MEDS: VANCOMYCIN HCL 750 MG, VIAL MATE ADAPTER 1 EACH in D5W 250 ML IV SCH ×2 (14:18→16:40)
[2022-04-25] MEDS: hydrOXYzine 50 MG TAB PO PRN (14:18)
[2022-04-25] MEDS: OLANZapine 2.5MG TABLET PO PRN (14:18)
[2022-04-25] MEDS: PRAZOSIN 1 MG CAP PO SCH (20:24)
[2022-04-25] MEDS: QUEtiapine FUMARATE 100 MG TAB PO SCH (20:24)
[2022-04-25] MEDS: traZODone 50 MG TAB PO SCH (20:24)
[2022-04-25] MEDS: QUEtiapine FUMARATE **XR** 200MG TABLET PO SCH (20:24)
[2022-04-25 20:25] VITALS: BP 139/88
[2022-04-26] MEDS: HEPARIN SOD (PORCINE) 5000UNITS/ML 1ML VIAL/SYRINGE SC SCH ×3 (05:03→21:06)
[2022-04-26] MEDS: LEVOTHYROXINE 150MCG TABLET (0.15MG) PO SCH (05:48)
[2022-04-26] MEDS: ACETAMINOPHEN TAB 650MG DOSE (2X325MG) PO PRN ×2 (05:48→20:13)
[2022-04-26] MEDS: SODIUM CHLORIDE 0.9% INJ 10 ML SYR IV SCH ×2 (05:49→17:22)
[2022-04-26 06:00] VITALS: BP 138/77
[2022-04-26 06:21] LABS: BASO # 0.1 10^3/uL (0.0-0.2); BASO % 0.8 % (0.0-1.0); EOS # 0.1 10^3/uL (0.0-0.5); EOS % 1.8 % (0.0-3.0); HEMOGLOBIN 10.1 g/dl (12.0-15.5); LYMPH # 1.9 10^3/uL (1.5-5.0); MEAN CORPUSCULAR HEMOGLOBIN 24.6 pg (27.0-33.0); MEAN CORPUSCULAR HGB CONC 28.9 g/dl (32.0-36.5); MEAN CORPUSCULAR VOLUME 85.4 fl (80.0-96.0); MONO # 0.4 10^3/uL (0.0-0.8); MONO % 6.8 % (2.0-8.0); NEUTROPHILS # 3.6 10^3/uL (1.5-8.5); NEUTROPHILS % 58.2 % (36.0-66.0); PLATELET COUNT, AUTOMATED 140 10^3/uL (150-450); WHITE BLOOD COUNT 6.2 10^3/uL (4.0-10.0)
[2022-04-26 06:50] LABS: MAGNESIUM LEVEL 2.1 MG/DL (1.8-2.4)
[2022-04-26 06:57] LABS: ALBUMIN 3.6 G/DL (3.2-5.2); BILIRUBIN,TOTAL 0.3 MG/DL (0.3-1.2); CREATININE FOR GFR 1.52 MG/DL (0.55-1.30); GLOMERULAR FILTRATION RATE 40.3 (>58); POTASSIUM SERUM 3.9 MMOL/L (3.5-5.1); TOTAL PROTEIN 7.1 G/DL (5.7-8.2)
[2022-04-26] MEDS: GABAPENTIN 300 MG CAP PO SCH ×3 (08:06→20:11)
[2022-04-26] MEDS: VENLAFAXINE **XR** 75MG CAPSULE PO SCH ×2 (08:06)
[2022-04-26] MEDS: METHADONE 10MG TAB PO SCH (08:07)
[2022-04-26] MEDS: predniSONE 10 MG TAB PO SCH (08:07)
[2022-04-26] MEDS: hydrOXYzine 50 MG TAB PO PRN (11:00)
[2022-04-26] MEDS: OLANZapine 2.5MG TABLET PO PRN (11:00)
[2022-04-26] MEDS: VANCOMYCIN HCL 750 MG, VIAL MATE ADAPTER 1 EACH in D5W 250 ML IV SCH ×2 (15:22→16:19)
[2022-04-26] MEDS: traZODone 50 MG TAB PO SCH (20:11)
[2022-04-26] MEDS: QUEtiapine FUMARATE 100 MG TAB PO SCH (20:11)
[2022-04-26] MEDS: QUEtiapine FUMARATE **XR** 200MG TABLET PO SCH (20:11)
[2022-04-26] MEDS: PRAZOSIN 1 MG CAP PO SCH (20:13)
[2022-04-26 21:49] VITALS: BP 145/82
[2022-04-27] MEDS: HEPARIN SOD (PORCINE) 5000UNITS/ML 1ML VIAL/SYRINGE SC SCH ×3 (05:06→22:31)
[2022-04-27] MEDS: LEVOTHYROXINE 150MCG TABLET (0.15MG) PO SCH (05:16)
[2022-04-27] MEDS: SODIUM CHLORIDE 0.9% INJ 10 ML SYR IV SCH ×2 (05:16→17:11)
[2022-04-27 05:17] VITALS: BP 136/92
[2022-04-27 06:25] LABS: BASO % 0.4 % (0.0-1.0); EOS # 0.1 10^3/uL (0.0-0.5); LYMPH % 27.3 % (24.0-44.0); MEAN CORPUSCULAR HEMOGLOBIN 24.4 pg (27.0-33.0); MEAN CORPUSCULAR HGB CONC 28.6 g/dl (32.0-36.5); MEAN CORPUSCULAR VOLUME 85.4 fl (80.0-96.0); MONO # 0.5 10^3/uL (0.0-0.8); NEUTROPHILS # 4.5 10^3/uL (1.5-8.5); NEUTROPHILS % 62.2 % (36.0-66.0); PLATELET COUNT, AUTOMATED 140 10^3/uL (150-450); WHITE BLOOD COUNT 7.2 10^3/uL (4.0-10.0)
[2022-04-27 06:48] LABS: MAGNESIUM LEVEL 2.1 MG/DL (1.8-2.4)
[2022-04-27 06:57] LABS: ALBUMIN 3.5 G/DL (3.2-5.2); BILIRUBIN,TOTAL 0.2 MG/DL (0.3-1.2); CALCIUM LEVEL 8.8 MG/DL (8.5-10.1); CREATININE FOR GFR 1.56 MG/DL (0.55-1.30); GLOMERULAR FILTRATION RATE 39.1 (>58); TOTAL PROTEIN 6.5 G/DL (5.7-8.2)
[2022-04-27] MEDS: GABAPENTIN 300 MG CAP PO SCH ×3 (08:37→20:15)
[2022-04-27] MEDS: VENLAFAXINE **XR** 75MG CAPSULE PO SCH (08:37)
[2022-04-27] MEDS: VANCOMYCIN HCL 1,000 MG, VIAL MATE ADAPTER 1 EACH in D5W 250 ML IV SCH (08:37)
[2022-04-27] MEDS: METHADONE 10MG TAB PO SCH (08:38)
[2022-04-27] MEDS: METHADONE 5MG TAB PO SCH (08:38)
[2022-04-27] MEDS: predniSONE 10 MG TAB PO SCH (08:38)
[2022-04-27] MEDS: VANCOMYCIN HCL 750 MG, VIAL MATE ADAPTER 1 EACH in D5W 250 ML IV SCH (09:55)
[2022-04-27] MEDS: hydrOXYzine 50 MG TAB PO PRN (13:54)
[2022-04-27] MEDS: OLANZapine 2.5MG TABLET PO PRN (13:54)
[2022-04-27] MEDS: ACETAMINOPHEN TAB 650MG DOSE (2X325MG) PO PRN (13:55)
[2022-04-27] MEDS: traZODone 50 MG TAB PO SCH (20:15)
[2022-04-27] MEDS: PRAZOSIN 1 MG CAP PO SCH (20:16)
[2022-04-27] MEDS: QUEtiapine FUMARATE 100 MG TAB PO SCH (20:16)
[2022-04-27] MEDS: QUEtiapine FUMARATE **XR** 200MG TABLET PO SCH (20:17)
[2022-04-27 21:00] VITALS: BP 135/81
[2022-04-28 04:40] VITALS: BP 128/68
[2022-04-28] MEDS: LEVOTHYROXINE 150MCG TABLET (0.15MG) PO SCH (05:53)
[2022-04-28] MEDS: ACETAMINOPHEN TAB 650MG DOSE (2X325MG) PO PRN (05:54)
[2022-04-28] MEDS: HEPARIN SOD (PORCINE) 5000UNITS/ML 1ML VIAL/SYRINGE SC SCH ×3 (05:54→21:06)
[2022-04-28] MEDS: SODIUM CHLORIDE 0.9% INJ 10 ML SYR IV SCH ×2 (05:56→17:14)
[2022-04-28] MEDS: predniSONE 10 MG TAB PO SCH (08:30)
[2022-04-28] MEDS: VENLAFAXINE **XR** 75MG CAPSULE PO SCH (08:30)
[2022-04-28] MEDS: METHADONE 5MG TAB PO SCH (08:30)
[2022-04-28] MEDS: GABAPENTIN 300 MG CAP PO SCH ×3 (08:30→20:53)
[2022-04-28] MEDS: METHADONE 10MG TAB PO SCH (08:31)
[2022-04-28] MEDS: VANCOMYCIN HCL 1,000 MG, VIAL MATE ADAPTER 1 EACH in D5W 250 ML IV SCH (09:58)
[2022-04-28] MEDS: VANCOMYCIN HCL 750 MG, VIAL MATE ADAPTER 1 EACH in D5W 250 ML IV SCH (11:08)
[2022-04-28] MEDS: hydrOXYzine 50 MG TAB PO PRN (14:13)
[2022-04-28] MEDS: OLANZapine 2.5MG TABLET PO PRN (14:13)
[2022-04-28] MEDS: PRAZOSIN 1 MG CAP PO SCH (20:52)
[2022-04-28] MEDS: QUEtiapine FUMARATE **XR** 200MG TABLET PO SCH (20:52)
[2022-04-28] MEDS: QUEtiapine FUMARATE 100 MG TAB PO SCH (20:53)
[2022-04-28] MEDS: traZODone 50 MG TAB PO SCH (21:06)
[2022-04-29 04:30] VITALS: BP 126/74
[2022-04-29] MEDS: LEVOTHYROXINE 150MCG TABLET (0.15MG) PO SCH (06:08)
[2022-04-29] MEDS: HEPARIN SOD (PORCINE) 5000UNITS/ML 1ML VIAL/SYRINGE SC SCH ×3 (06:09→21:34)
[2022-04-29] MEDS: SODIUM CHLORIDE 0.9% INJ 10 ML SYR IV SCH ×2 (06:09→11:04)
[2022-04-29 08:39] LABS: CALCIUM LEVEL 8.7 MG/DL (8.5-10.1); CREATININE FOR GFR 1.44 MG/DL (0.55-1.30); GLOMERULAR FILTRATION RATE 42.9 (>58); POTASSIUM SERUM 3.4 MMOL/L (3.5-5.1)
[2022-04-29] MEDS: METHADONE 5MG TAB PO SCH (09:02)
[2022-04-29] MEDS: METHADONE 10MG TAB PO SCH (09:02)
[2022-04-29] MEDS: VANCOMYCIN HCL 1,000 MG, VIAL MATE ADAPTER 1 EACH in D5W 250 ML IV SCH (09:02)
[2022-04-29] MEDS: predniSONE 10 MG TAB PO SCH (09:03)
[2022-04-29] MEDS: GABAPENTIN 300 MG CAP PO SCH ×3 (09:03→21:32)
[2022-04-29] MEDS: VENLAFAXINE **XR** 75MG CAPSULE PO SCH (09:03)
[2022-04-29] MEDS: VANCOMYCIN HCL 750 MG, VIAL MATE ADAPTER 1 EACH in D5W 250 ML IV SCH (11:03)
[2022-04-29] MEDS: hydrOXYzine 50 MG TAB PO PRN ×2 (14:38→22:51)
[2022-04-29] MEDS: OLANZapine 2.5MG TABLET PO PRN (14:38)
[2022-04-29] MEDS: QUEtiapine FUMARATE **XR** 200MG TABLET PO SCH (21:32)
[2022-04-29] MEDS: QUEtiapine FUMARATE 100 MG TAB PO SCH (21:32)
[2022-04-29] MEDS: traZODone 50 MG TAB PO SCH (21:32)
[2022-04-29] MEDS: PRAZOSIN 1 MG CAP PO SCH (21:34)
[2022-04-29 22:52] VITALS: BP 116/66
[2022-04-30 06:00] VITALS: BP 136/75
[2022-04-30] MEDS: HEPARIN SOD (PORCINE) 5000UNITS/ML 1ML VIAL/SYRINGE SC SCH ×3 (06:00→20:16)
[2022-04-30] MEDS: LEVOTHYROXINE 150MCG TABLET (0.15MG) PO SCH (06:09)
[2022-04-30] MEDS: SODIUM CHLORIDE 0.9% INJ 10 ML SYR IV SCH ×2 (06:10→15:32)
[2022-04-30] MEDS: METHADONE 5MG TAB PO SCH (09:37)
[2022-04-30] MEDS: VANCOMYCIN HCL 1,000 MG, VIAL MATE ADAPTER 1 EACH in D5W 250 ML IV SCH (09:37)
[2022-04-30] MEDS: METHADONE 10MG TAB PO SCH (09:38)
[2022-04-30] MEDS: OLANZapine 2.5MG TABLET PO PRN ×2 (09:39→18:32)
[2022-04-30] MEDS: ACETAMINOPHEN TAB 650MG DOSE (2X325MG) PO PRN ×2 (09:39→22:57)
[2022-04-30] MEDS: predniSONE 10 MG TAB PO SCH (09:40)
[2022-04-30] MEDS: GABAPENTIN 300 MG CAP PO SCH ×3 (09:40→20:16)
[2022-04-30] MEDS: VENLAFAXINE **XR** 75MG CAPSULE PO SCH (09:40)
[2022-04-30] MEDS: hydrOXYzine 50 MG TAB PO PRN ×2 (09:40→18:32)
[2022-04-30] MEDS: VANCOMYCIN HCL 750 MG, VIAL MATE ADAPTER 1 EACH in D5W 250 ML IV SCH (10:59)
[2022-04-30] MEDS: BENZOCAINE 10% 9GM TUBE (ANBESOL) TOP PRN (13:36)
[2022-04-30] MEDS: QUEtiapine FUMARATE 100 MG TAB PO SCH (20:16)
[2022-04-30] MEDS: QUEtiapine FUMARATE **XR** 200MG TABLET PO SCH (20:16)
[2022-04-30] MEDS: traZODone 50 MG TAB PO SCH (20:16)
[2022-04-30] MEDS: PRAZOSIN 1 MG CAP PO SCH (20:19)
[2022-04-30 22:47] VITALS: BP 123/77
[2022-05-01] MEDS: BENZOCAINE 10% 9GM TUBE (ANBESOL) TOP PRN ×2 (02:25→20:16)
[2022-05-01] MEDS: HEPARIN SOD (PORCINE) 5000UNITS/ML 1ML VIAL/SYRINGE SC SCH ×3 (04:50→20:16)
[2022-05-01] MEDS: LEVOTHYROXINE 150MCG TABLET (0.15MG) PO SCH (05:46)
[2022-05-01] MEDS: SODIUM CHLORIDE 0.9% INJ 10 ML SYR IV SCH ×2 (05:46→18:03)
[2022-05-01 06:00] VITALS: BP 142/93
[2022-05-01] MEDS: ACETAMINOPHEN TAB 650MG DOSE (2X325MG) PO PRN ×3 (06:32→21:17)
[2022-05-01] MEDS: GABAPENTIN 300 MG CAP PO SCH ×3 (08:05→20:14)
[2022-05-01] MEDS: VENLAFAXINE **XR** 75MG CAPSULE PO SCH (08:05)
[2022-05-01] MEDS: METHADONE 5MG TAB PO SCH (08:05)
[2022-05-01] MEDS: predniSONE 10 MG TAB PO SCH (08:05)
[2022-05-01] MEDS: METHADONE 10MG TAB PO SCH (08:05)
[2022-05-01] MEDS: VANCOMYCIN HCL 1,000 MG, VIAL MATE ADAPTER 1 EACH in D5W 250 ML IV SCH (09:16)
[2022-05-01] MEDS: VANCOMYCIN HCL 750 MG, VIAL MATE ADAPTER 1 EACH in D5W 250 ML IV SCH (10:33)
[2022-05-01] MEDS: hydrOXYzine 50 MG TAB PO PRN (13:19)
[2022-05-01] MEDS: QUEtiapine FUMARATE **XR** 200MG TABLET PO SCH (20:14)
[2022-05-01] MEDS: traZODone 50 MG TAB PO SCH (20:14)
[2022-05-01] MEDS: QUEtiapine FUMARATE 100 MG TAB PO SCH (20:14)
[2022-05-01 20:16] VITALS: BP 159/97
[2022-05-01] MEDS: PRAZOSIN 1 MG CAP PO SCH (20:16)
[2022-05-02] MEDS: HEPARIN SOD (PORCINE) 5000UNITS/ML 1ML VIAL/SYRINGE SC SCH (05:17)
[2022-05-02] MEDS: ACETAMINOPHEN TAB 650MG DOSE (2X325MG) PO PRN (05:42)
[2022-05-02] MEDS: LEVOTHYROXINE 150MCG TABLET (0.15MG) PO SCH (05:42)
[2022-05-02] MEDS: SODIUM CHLORIDE 0.9% INJ 10 ML SYR IV SCH (05:43)
[2022-05-02 06:00] VITALS: BP 141/86
[2022-05-02] MEDS: predniSONE 10 MG TAB PO SCH (09:01)
[2022-05-02] MEDS: VANCOMYCIN HCL 1,000 MG, VIAL MATE ADAPTER 1 EACH in D5W 250 ML IV SCH ×2 (09:01→09:14)
[2022-05-02] MEDS: GABAPENTIN 300 MG CAP PO SCH (09:01)
[2022-05-02] MEDS: METHADONE 10MG TAB PO SCH (09:01)
[2022-05-02] MEDS: VENLAFAXINE **XR** 75MG CAPSULE PO SCH (09:02)
[2022-05-02] MEDS: OLANZapine 2.5MG TABLET PO PRN (09:02)
[2022-05-02] MEDS: hydrOXYzine 50 MG TAB PO PRN (09:02)
[2022-05-02] MEDS: METHADONE 5MG TAB PO SCH (09:02)
[2022-05-02] MEDS: BENZOCAINE 10% 9GM TUBE (ANBESOL) TOP PRN (09:09)
[2022-05-02] MEDS ORDERED: VANCOMYCIN HCL 1,000 MG, VIAL MATE ADAPTER 1 EACH in D5W 250 ML IV SCH (10:00)
[2022-05-02 11:41] LABS: C REACTIVE PROTEIN QUANTITATIV < 0.40 MG/DL (<1.0)
[2022-05-02 11:43] LABS: BLOOD UREA NITROGEN 21 MG/DL (9-23); CALCIUM LEVEL 8.7 MG/DL (8.5-10.1); CARBON DIOXIDE LEVEL 31 MMOL/L (20-31); CHLORIDE LEVEL 100 MMOL/L (98-107); GLOMERULAR FILTRATION RATE 44.3 (>58); GLUCOSE, FASTING 151 MG/DL (60-100); POTASSIUM SERUM 3.9 MMOL/L (3.5-5.1); SODIUM LEVEL 138 MMOL/L (136-145)
[2022-05-02] MEDS ORDERED: TRAZ-252 PO (13:13)
[2022-05-02] MEDS ORDERED: PRED10TA2 PO (13:13)
[2022-05-17] MEDS ORDERED: predniSONE 5 MG TAB PO SCH (09:00)
== END 2022-05-02 14:20 | disposition home or self-care (01) | DRG 137 ==
LOC: M ED 10:13 → EDBD 10:13 → M ED INP 14:06 → ENRESERV 20:10 → M MSPAV 21:30
PROVIDERS: ADMIT Family Medicine; ATTEND Family Medicine
PROC: XW033E5 Introduction of Remdesivir Anti-infective into Peripheral Vein, Percutaneous Approach, New Technology Group 5 (ICD-10-PCS; principal; 2022-04-19)
PROC: B246ZZZ Ultrasonography of Right and Left Heart (ICD-10-PCS; 2022-04-22)
PROC: 02HV33Z Insertion of Infusion Device into Superior Vena Cava, Percutaneous Approach (ICD-10-PCS; 2022-04-24)
DX: U07.1 COVID-19 (principal); J96.01 Acute respiratory failure with hypoxia; J12.82 Pneumonia due to coronavirus disease 2019; Z93.0 Tracheostomy status; R78.81 Bacteremia; J38.00 Paralysis of vocal cords and larynx, unspecified; E66.01 Morbid (severe) obesity due to excess calories; Z68.42 Body mass index [BMI] 45.0-49.9, adult; R13.10 Dysphagia, unspecified; F25.9 Schizoaffective disorder, unspecified; N18.30 Chronic kidney disease, stage 3 unspecified; E03.9 Hypothyroidism, unspecified; G47.33 Obstructive sleep apnea (adult) (pediatric); J45.909 Unspecified asthma, uncomplicated; D86.0 Sarcoidosis of lung; B95.61 Methicillin susceptible Staphylococcus aureus infection as the cause of diseases classified elsewhere; B95.62 Methicillin resistant Staphylococcus aureus infection as the cause of diseases classified elsewhere; B95.0 Streptococcus, group A, as the cause of diseases classified elsewhere; G47.00 Insomnia, unspecified; F60.3 Borderline personality disorder; F43.10 Post-traumatic stress disorder, unspecified; F41.9 Anxiety disorder, unspecified; Z79.890 Hormone replacement therapy; Z79.899 Other long term (current) drug therapy

== ENCOUNTER 2022-05-02 14:27 | Outpatient (CLI) | payer OTHER ==
[~2022-05-02] VITALS: Ht 160 cm; Wt 121.0 kg
[~2022-05-02 14:27] MED LIST changes: +QUET200T79 PO
[2022-05-02 14:40] VITALS: BP 146/89
[2022-05-02] MEDS ORDERED: DALBAVANCIN 1,500 MG in D5W 250 ML IV ONE (15:00)
[2022-05-02 16:10] VITALS: BP 148/83
== END 2022-05-02 16:00 | disposition home or self-care (01) ==
LOC: M INFU 14:27
PROVIDERS: ATTEND Internal Medicine Infectious Disease
DX: J15.212 Pneumonia due to Methicillin resistant Staphylococcus aureus (principal)
CPT/HCPCS: 96365; J0875

== ENCOUNTER 2022-05-19 15:43 | Emergency (ER) | payer OTHER ==
[~2022-05-19] VITALS: Ht 160 cm; Wt 118.2 kg
[~2022-05-19 15:43] MED LIST changes: +LIDO15SO4 PO; -LIDO2SOL17 PO
[2022-05-19 15:44] VITALS: BP 120/64
== END 2022-05-19 16:33 | disposition left against medical advice (07) ==
LOC: M ED 15:43
DX: Z53.21 Procedure and treatment not carried out due to patient leaving prior to being seen by health care provider (principal)

== ENCOUNTER 2022-05-24 09:56 | Emergency (ER) | payer OTHER ==
[~2022-05-24] VITALS: Ht 160 cm; Wt 119.5 kg
[2022-05-24] MEDS ORDERED: MORPHINE 4 MG/ML 1ML VIAL IV ONE (10:25)
[2022-05-24] MEDS ORDERED: NS 500 ML IV ONE (10:25)
[2022-05-24 11:08] LABS: BASO # 0.1 10^3/uL (0.0-0.2); BASO % 0.8 % (0.0-1.0); EOS # 0.1 10^3/uL (0.0-0.5); EOS % 1.5 % (0.0-3.0); HEMATOCRIT 37.3 % (36.0-47.0); HEMOGLOBIN 11.2 g/dl (12.0-15.5); LYMPH # 1.2 10^3/uL (1.5-5.0); LYMPH % 19.4 % (24.0-44.0); MEAN CORPUSCULAR HEMOGLOBIN 25.2 pg (27.0-33.0); MONO # 0.5 10^3/uL (0.0-0.8); MONO % 7.6 % (2.0-8.0); NEUTROPHILS # 4.2 10^3/uL (1.5-8.5); NEUTROPHILS % 68.7 % (36.0-66.0); PLATELET COUNT, AUTOMATED 167 10^3/uL (150-450); RED BLOOD COUNT 4.44 10^6/uL (4.00-5.40); WHITE BLOOD COUNT 6.1 10^3/uL (4.0-10.0)
[2022-05-24 11:27] LABS: CALCIUM LEVEL 9.2 MG/DL (8.5-10.1); CREATININE FOR GFR 1.67 MG/DL (0.55-1.30); GLOMERULAR FILTRATION RATE 36.2 (>58); POTASSIUM SERUM 4.4 MMOL/L (3.5-5.1)
[2022-05-24] MEDS ORDERED: ACETAMINOPHEN 500 MG TAB PO ONE (13:10)
[2022-05-24 13:50] VITALS: BP 149/91
== END 2022-05-24 13:53 | disposition home or self-care (01) ==
LOC: EDBD 09:56 → M ED 09:56
DX: S92.321A Displaced fracture of second metatarsal bone, right foot, initial encounter for closed fracture (principal); S92.331A Displaced fracture of third metatarsal bone, right foot, initial encounter for closed fracture; W18.30XA Fall on same level, unspecified, initial encounter; Y92.009 Unspecified place in unspecified non-institutional (private) residence as the place of occurrence of the external cause; E03.9 Hypothyroidism, unspecified; Z87.891 Personal history of nicotine dependence; Z79.891 Long term (current) use of opiate analgesic; Z79.899 Other long term (current) drug therapy
CPT/HCPCS: 71046; 73590; 73630; 73660; 80048; 83605; 85025; 87040; 93005; 93970; 96361; 96374; 99284; J2270

== ENCOUNTER 2022-06-20 11:42 | Emergency (ER) | payer OTHER ==
[~2022-06-20] VITALS: Ht 160 cm; Wt 119.5 kg
[2022-06-20] MEDS ORDERED: NORCO, ANEXSIA 5/325MG TABLET (HYDROcodone/ACETAMINOPHEN) PO ONE (13:25)
[2022-06-20] MEDS ORDERED: LIDOCAINE 2% MDV 20ML VIAL SC ONE (14:05)
[2022-06-20] MEDS ORDERED: CEPH500C PO (16:15)
[2022-06-20 16:23] VITALS: BP 117/75
== END 2022-06-20 16:32 | disposition home or self-care (01) ==
LOC: EDBD 11:42 → M ED 11:42
DX: S92.352B Displaced fracture of fifth metatarsal bone, left foot, initial encounter for open fracture (principal); S93.115A Dislocation of interphalangeal joint of left lesser toe(s), initial encounter; W01.0XXA Fall on same level from slipping, tripping and stumbling without subsequent striking against object, initial encounter; Y92.009 Unspecified place in unspecified non-institutional (private) residence as the place of occurrence of the external cause; K21.9 Gastro-esophageal reflux disease without esophagitis; E03.9 Hypothyroidism, unspecified; E66.9 Obesity, unspecified; N18.9 Chronic kidney disease, unspecified; F20.9 Schizophrenia, unspecified; F43.10 Post-traumatic stress disorder, unspecified; F90.9 Attention-deficit hyperactivity disorder, unspecified type; F19.10 Other psychoactive substance abuse, uncomplicated; R29.6 Repeated falls

== ENCOUNTER 2022-06-23 16:53 | Emergency (ER) | payer OTHER ==
[~2022-06-23] VITALS: Ht 160 cm; Wt 124.0 kg
[2022-06-23 16:53] VITALS: BP 139/74
[~2022-06-23 16:53] MED LIST changes: +CEPH500C PO
== END 2022-06-23 22:24 | disposition home or self-care (01) ==
LOC: M ED 16:53
DX: J95.09 Other tracheostomy complication (principal); R06.02 Shortness of breath; E03.9 Hypothyroidism, unspecified; N18.30 Chronic kidney disease, stage 3 unspecified; F43.10 Post-traumatic stress disorder, unspecified; F90.9 Attention-deficit hyperactivity disorder, unspecified type; F41.9 Anxiety disorder, unspecified; J38.00 Paralysis of vocal cords and larynx, unspecified; E66.9 Obesity, unspecified; Z79.890 Hormone replacement therapy; Z79.899 Other long term (current) drug therapy

== ENCOUNTER 2022-06-29 11:29 | Inpatient (IN) | payer OTHER ==
[~2022-06-29] VITALS: Ht 160 cm; Wt 115.0 kg
[2022-06-29] MEDS: LEVOTHYROXINE 150MCG TABLET (0.15MG) PO SCH (06:00)
[2022-06-29] MEDS: METHADONE 10MG TAB PO SCH (09:00)
[2022-06-29] MEDS: TOPIRAMATE (TopAMAX) 25 MG TAB PO SCH (09:00)
[~2022-06-29 11:29] MED LIST changes: +FLUT50SP17; -FLUTISP; +LIDO15SO PO; -LIDO15SO4 PO
[2022-06-29] MEDS ORDERED: MORPHINE 4 MG/ML 1ML VIAL IV ONE (12:40)
[2022-06-29 13:10] LABS: BASO % 0.2 % (0.0-1.0); EOS # 0.1 10^3/uL (0.0-0.5); EOS % 0.5 % (0.0-3.0); HEMATOCRIT 35.1 % (36.0-47.0); HEMOGLOBIN 10.5 g/dl (12.0-15.5); LYMPH # 1.1 10^3/uL (1.5-5.0); MEAN CORPUSCULAR HEMOGLOBIN 23.7 pg (27.0-33.0); MEAN CORPUSCULAR HGB CONC 29.9 g/dl (32.0-36.5); MEAN CORPUSCULAR VOLUME 79.2 fl (80.0-96.0); MONO # 0.7 10^3/uL (0.0-0.8); MONO % 5.8 % (2.0-8.0); NEUTROPHILS # 10.7 10^3/uL (1.5-8.5); NEUTROPHILS % 83.9 % (36.0-66.0); PLATELET COUNT, AUTOMATED 155 10^3/uL (150-450); RED BLOOD COUNT 4.43 10^6/uL (4.00-5.40); WHITE BLOOD COUNT 12.7 10^3/uL (4.0-10.0)
[2022-06-29 13:41] LABS: ALBUMIN 3.7 G/DL (3.2-5.2); BILIRUBIN,TOTAL 0.5 MG/DL (0.3-1.2); CALCIUM LEVEL 8.4 MG/DL (8.5-10.1); CREATININE FOR GFR 1.28 MG/DL (0.55-1.30); GLOMERULAR FILTRATION RATE 49.2 (>58); POTASSIUM SERUM 4.4 MMOL/L (3.5-5.1); RSV AMPLIFICATION NEGATIVE (NEGATIVE); TOTAL PROTEIN 6.8 G/DL (5.7-8.2)
[2022-06-29] MEDS ORDERED: TOPI-254 PO (15:26)
[2022-06-29] MEDS ORDERED: NORCO, ANEXSIA 5/325MG TABLET (HYDROcodone/ACETAMINOPHEN) PO PRN (15:30)
[2022-06-29] MEDS ORDERED: HOME MED LIST COMPLETE! XX SCH (15:30)
[2022-06-29 15:58] VITALS: BP 128/85
[2022-06-29 16:00] VITALS: BP 128/85
[2022-06-29] MEDS: GABAPENTIN 400MG CAP PO SCH ×2 (17:01→21:04)
[2022-06-29] MEDS: CEPHALEXIN 500 MG CAP PO SCH (21:04)
[2022-06-29] MEDS: QUEtiapine FUMARATE **XR** 200MG TABLET PO SCH (21:04)
[2022-06-29] MEDS: traZODone 50 MG TAB PO SCH (21:04)
[2022-06-29] MEDS: PRAZOSIN 1 MG CAP PO SCH (21:06)
[2022-06-29 21:07] VITALS: BP 126/78
[2022-06-29] MEDS: HEPARIN SOD (PORCINE) 5000UNITS/ML 1ML VIAL/SYRINGE SC SCH (21:07)
[2022-06-29] MEDS: NORCO, ANEXSIA 5/325MG TABLET (HYDROcodone/ACETAMINOPHEN) PO PRN (21:19)
[2022-06-30] MEDS: NORCO, ANEXSIA 5/325MG TABLET (HYDROcodone/ACETAMINOPHEN) PO PRN ×3 (03:46→14:46)
[2022-06-30 05:17] VITALS: BP 122/77
[2022-06-30] MEDS: LEVOTHYROXINE 150MCG TABLET (0.15MG) PO SCH (05:33)
[2022-06-30] MEDS: HEPARIN SOD (PORCINE) 5000UNITS/ML 1ML VIAL/SYRINGE SC SCH ×3 (05:33→22:00)
[2022-06-30 08:12] LABS: HEMATOCRIT 32.7 % (36.0-47.0); HEMOGLOBIN 9.8 g/dl (12.0-15.5); MEAN CORPUSCULAR HEMOGLOBIN 23.7 pg (27.0-33.0); MEAN CORPUSCULAR VOLUME 79.2 fl (80.0-96.0); PLATELET COUNT, AUTOMATED 140 10^3/uL (150-450); RED BLOOD COUNT 4.13 10^6/uL (4.00-5.40); WHITE BLOOD COUNT 7.9 10^3/uL (4.0-10.0)
[2022-06-30] MEDS: METHADONE 10MG TAB PO SCH (08:34)
[2022-06-30] MEDS: TOPIRAMATE (TopAMAX) 25 MG TAB PO SCH (08:35)
[2022-06-30] MEDS: GABAPENTIN 400MG CAP PO SCH ×2 (08:35→16:08)
[2022-06-30] MEDS: VENLAFAXINE **XR** 75MG CAPSULE PO SCH (08:35)
[2022-06-30] MEDS: CEPHALEXIN 500 MG CAP PO SCH ×3 (08:35→21:00)
[2022-06-30 08:37] LABS: CALCIUM LEVEL 8.6 MG/DL (8.5-10.1); CREATININE FOR GFR 1.29 MG/DL (0.55-1.30); GLOMERULAR FILTRATION RATE 48.7 (>58); MAGNESIUM LEVEL 1.9 MG/DL (1.8-2.4); PHOSPHORUS LEVEL 3.1 MG/DL (2.5-4.9); POTASSIUM SERUM 3.8 MMOL/L (3.5-5.1)
[2022-06-30] MEDS ORDERED: VENLAFAXINE **XR** 75MG CAPSULE PO SCH (09:00)
[2022-06-30 18:00] VITALS: BP 126/78
[2022-06-30 19:45] VITALS: BP 108/74
[2022-06-30] MEDS ORDERED: ceFAZolin SOD 2 GM in IV 1 EA IV ONE (20:00)
[2022-06-30] MEDS ORDERED: MIDAZOLAM INJ 2MG/2ML VIAL As Ordered ONE (20:22)
[2022-06-30] MEDS ORDERED: HYDROmorphone HCL 2MG/ML 1ML VIAL As Ordered ONE (20:22)
[2022-06-30] MEDS ORDERED: fentaNYL 100 MCG/2 ML INJECTION As Ordered ONE (20:24)
[2022-06-30] MEDS ORDERED: KETAMINE HCL 200MG/20ML VIAL As Ordered ONE (20:24)
[2022-06-30] MEDS ORDERED: LIDOCAINE 2% 100MG/5ML SDV (FOR ANES.) As Ordered ONE (20:24)
[2022-06-30] MEDS ORDERED: propofoL 200 MG/20 ML VIAL As Ordered ONE ×2 (20:24→20:25)
[2022-06-30] MEDS ORDERED: ACETAMINOPHEN 1000MG 100ML IV BAG As Ordered ONE (20:30)
[2022-06-30] MEDS ORDERED: ceFAZolin 2 GM/D5W 50 ML IV BAG As Ordered ONE (20:36)
[2022-06-30] MEDS: PRAZOSIN 1 MG CAP PO SCH (21:00)
[2022-06-30] MEDS ORDERED: PHENYLEPHRINE 10MG/ML 1ML VIAL As Ordered ONE (21:24)
[2022-06-30] MEDS ORDERED: LR 1,000 ML IV SCH (22:30)
[2022-06-30] MEDS ORDERED: ONDANSETRON 4MG 2ML VIAL IV PRN (22:30)
[2022-06-30] MEDS ORDERED: MORPHINE 2 MG/ML 1ML VIAL IV PRN (22:30)
[2022-06-30] MEDS ORDERED: oxyCODONE 5MG TAB PO PRN (22:30)
[2022-06-30] MEDS ORDERED: fentaNYL 100 MCG/2 ML INJECTION IV PRN (22:30)
[2022-06-30] MEDS ORDERED: KETOROLAC 60MG 2ML VIAL As Ordered ONE (22:31)
[2022-06-30 23:43] VITALS: BP 109/75
[2022-07-01] VITALS (7 sets, daily range): BP systolic 110–133; BP diastolic 71–84
[2022-07-01] MEDS: QUEtiapine FUMARATE **XR** 200MG TABLET PO SCH ×2 (01:08→22:05)
[2022-07-01] MEDS: traZODone 50 MG TAB PO SCH ×2 (01:08→22:05)
[2022-07-01] MEDS: GABAPENTIN 400MG CAP PO SCH ×4 (01:09→22:05)
[2022-07-01] MEDS: HEPARIN SOD (PORCINE) 5000UNITS/ML 1ML VIAL/SYRINGE SC SCH ×3 (06:10→22:03)
[2022-07-01] MEDS: LEVOTHYROXINE 150MCG TABLET (0.15MG) PO SCH (06:17)
[2022-07-01] MEDS: ceFAZolin SOD 2 GM in IV 1 EA IV SCH ×3 (06:18→22:06)
[2022-07-01 07:03] LABS: HEMATOCRIT 31.6 % (36.0-47.0); HEMOGLOBIN 9.4 g/dl (12.0-15.5); MEAN CORPUSCULAR HEMOGLOBIN 23.9 pg (27.0-33.0); MEAN CORPUSCULAR HGB CONC 29.7 g/dl (32.0-36.5); MEAN CORPUSCULAR VOLUME 80.4 fl (80.0-96.0); PLATELET COUNT, AUTOMATED 156 10^3/uL (150-450); RED BLOOD COUNT 3.93 10^6/uL (4.00-5.40); WHITE BLOOD COUNT 6.8 10^3/uL (4.0-10.0)
[2022-07-01 07:30] LABS: CALCIUM LEVEL 8.2 MG/DL (8.5-10.1); CREATININE FOR GFR 1.45 MG/DL (0.55-1.30); GLOMERULAR FILTRATION RATE 42.6 (>58); POTASSIUM SERUM 4.2 MMOL/L (3.5-5.1)
[2022-07-01] MEDS: VENLAFAXINE **XR** 75MG CAPSULE PO SCH (08:35)
[2022-07-01] MEDS: CEPHALEXIN 500 MG CAP PO SCH ×3 (08:35→22:05)
[2022-07-01] MEDS: METHADONE 10MG TAB PO SCH (08:36)
[2022-07-01] MEDS: TOPIRAMATE (TopAMAX) 25 MG TAB PO SCH (08:36)
[2022-07-01] MEDS: oxyCODONE 5MG TAB PO PRN ×2 (08:37→19:38)
[2022-07-01] MEDS: NS 1,000 ML IV SCH (17:57)
[2022-07-01] MEDS: PRAZOSIN 1 MG CAP PO SCH (22:04)
[2022-07-01] MEDS: NORCO, ANEXSIA 5/325MG TABLET (HYDROcodone/ACETAMINOPHEN) PO PRN (22:22)
[2022-07-02] MEDS: HEPARIN SOD (PORCINE) 5000UNITS/ML 1ML VIAL/SYRINGE SC SCH ×3 (05:32→20:57)
[2022-07-02] MEDS: oxyCODONE 5MG TAB PO PRN ×5 (05:32→22:31)
[2022-07-02] MEDS: LEVOTHYROXINE 150MCG TABLET (0.15MG) PO SCH (05:32)
[2022-07-02 06:00] VITALS: BP 135/81
[2022-07-02 07:20] LABS: HEMATOCRIT 29.7 % (36.0-47.0); HEMOGLOBIN 8.7 g/dl (12.0-15.5); MEAN CORPUSCULAR HEMOGLOBIN 23.6 pg (27.0-33.0); MEAN CORPUSCULAR HGB CONC 29.3 g/dl (32.0-36.5); MEAN CORPUSCULAR VOLUME 80.5 fl (80.0-96.0); PLATELET COUNT, AUTOMATED 144 10^3/uL (150-450); RED BLOOD COUNT 3.69 10^6/uL (4.00-5.40); WHITE BLOOD COUNT 4.9 10^3/uL (4.0-10.0)
[2022-07-02 07:40] LABS: CALCIUM LEVEL 7.9 MG/DL (8.5-10.1); CREATININE FOR GFR 1.34 MG/DL (0.55-1.30); GLOMERULAR FILTRATION RATE 46.6 (>58); POTASSIUM SERUM 3.6 MMOL/L (3.5-5.1)
[2022-07-02] MEDS: METHADONE 10MG TAB PO SCH (08:00)
[2022-07-02] MEDS: VENLAFAXINE **XR** 75MG CAPSULE PO SCH (08:02)
[2022-07-02] MEDS: CEPHALEXIN 500 MG CAP PO SCH ×3 (08:03→21:00)
[2022-07-02] MEDS: GABAPENTIN 400MG CAP PO SCH ×3 (08:04→20:59)
[2022-07-02] MEDS: TOPIRAMATE (TopAMAX) 25 MG TAB PO SCH (08:05)
[2022-07-02] MEDS: NS 1,000 ML IV SCH ×3 (08:11→22:41)
[2022-07-02] MEDS: NORCO, ANEXSIA 5/325MG TABLET (HYDROcodone/ACETAMINOPHEN) PO PRN ×3 (12:38→21:16)
[2022-07-02 14:00] VITALS: BP 123/74
[2022-07-02 20:29] VITALS: BP 119/72
[2022-07-02] MEDS: traZODone 50 MG TAB PO SCH (20:59)
[2022-07-02] MEDS: QUEtiapine FUMARATE **XR** 200MG TABLET PO SCH (20:59)
[2022-07-02] MEDS: PRAZOSIN 1 MG CAP PO SCH (20:59)
[2022-07-02] MEDS: CYCLOBENZAPRINE 5MG TABLET PO PRN (20:59)
[2022-07-02] MEDS: hydrOXYzine 50 MG TAB PO PRN (21:00)
[2022-07-03] MEDS: oxyCODONE 5MG TAB PO PRN ×2 (03:43→08:22)
[2022-07-03] MEDS: LEVOTHYROXINE 150MCG TABLET (0.15MG) PO SCH (05:17)
[2022-07-03] MEDS: HEPARIN SOD (PORCINE) 5000UNITS/ML 1ML VIAL/SYRINGE SC SCH ×3 (05:18→20:22)
[2022-07-03] MEDS: NORCO, ANEXSIA 5/325MG TABLET (HYDROcodone/ACETAMINOPHEN) PO PRN ×3 (05:18→21:29)
[2022-07-03 05:30] VITALS: BP 117/76
[2022-07-03] MEDS: CYCLOBENZAPRINE 5MG TABLET PO PRN ×2 (06:20→14:18)
[2022-07-03] MEDS: GABAPENTIN 400MG CAP PO SCH ×3 (08:21→20:16)
[2022-07-03] MEDS: TOPIRAMATE (TopAMAX) 25 MG TAB PO SCH (08:23)
[2022-07-03] MEDS: OLANZapine 2.5MG TABLET PO PRN ×2 (08:23→14:18)
[2022-07-03] MEDS: CEPHALEXIN 500 MG CAP PO SCH ×4 (08:24→20:16)
[2022-07-03] MEDS: VENLAFAXINE **XR** 75MG CAPSULE PO SCH (08:24)
[2022-07-03] MEDS: METHADONE 10MG TAB PO SCH (09:42)
[2022-07-03] MEDS ORDERED: PILL CUTTER 1 EACH XX PRN (15:20)
[2022-07-03] MEDS: traZODone 50 MG TAB PO SCH (20:15)
[2022-07-03] MEDS: hydrOXYzine 50 MG TAB PO PRN (20:15)
[2022-07-03] MEDS: QUEtiapine FUMARATE **XR** 200MG TABLET PO SCH (20:15)
[2022-07-03] MEDS: PRAZOSIN 1 MG CAP PO SCH (20:16)
[2022-07-04] MEDS: HEPARIN SOD (PORCINE) 5000UNITS/ML 1ML VIAL/SYRINGE SC SCH ×3 (04:46→21:02)
[2022-07-04] MEDS: LEVOTHYROXINE 150MCG TABLET (0.15MG) PO SCH (04:47)
[2022-07-04] MEDS: NORCO, ANEXSIA 5/325MG TABLET (HYDROcodone/ACETAMINOPHEN) PO PRN ×4 (04:47→23:19)
[2022-07-04 06:41] VITALS: BP 113/72
[2022-07-04] MEDS: METHADONE 10MG TAB PO SCH (08:08)
[2022-07-04] MEDS: GABAPENTIN 400MG CAP PO SCH ×3 (08:09→21:01)
[2022-07-04] MEDS: VENLAFAXINE **XR** 75MG CAPSULE PO SCH (08:09)
[2022-07-04] MEDS: TOPIRAMATE (TopAMAX) 25 MG TAB PO SCH (08:10)
[2022-07-04] MEDS: CEPHALEXIN 500 MG CAP PO SCH ×4 (08:10→21:02)
[2022-07-04] MEDS: OLANZapine 2.5MG TABLET PO PRN ×2 (08:10→15:08)
[2022-07-04] MEDS: CYCLOBENZAPRINE 5MG TABLET PO PRN ×3 (08:10→21:05)
[2022-07-04] MEDS ORDERED: METHADONE 10MG TAB PO SCH (09:00)
[2022-07-04 14:59] VITALS: BP 106/64
[2022-07-04] MEDS: PRAZOSIN 1 MG CAP PO SCH (21:00)
[2022-07-04] MEDS: QUEtiapine FUMARATE **XR** 200MG TABLET PO SCH (21:01)
[2022-07-04] MEDS: traZODone 50 MG TAB PO SCH (21:01)
[2022-07-04] MEDS: hydrOXYzine 50 MG TAB PO PRN (21:05)
[2022-07-05 04:34] VITALS: BP 113/62
[2022-07-05] MEDS: LEVOTHYROXINE 150MCG TABLET (0.15MG) PO SCH (05:30)
[2022-07-05] MEDS: NORCO, ANEXSIA 5/325MG TABLET (HYDROcodone/ACETAMINOPHEN) PO PRN ×3 (05:30→21:31)
[2022-07-05] MEDS: HEPARIN SOD (PORCINE) 5000UNITS/ML 1ML VIAL/SYRINGE SC SCH ×3 (05:32→21:29)
[2022-07-05] MEDS: CEPHALEXIN 500 MG CAP PO SCH ×4 (10:23→21:32)
[2022-07-05] MEDS: TOPIRAMATE (TopAMAX) 25 MG TAB PO SCH (10:24)
[2022-07-05] MEDS: GABAPENTIN 400MG CAP PO SCH ×3 (10:24→21:32)
[2022-07-05] MEDS: VENLAFAXINE **XR** 75MG CAPSULE PO SCH (10:24)
[2022-07-05] MEDS: METHADONE 10MG TAB PO SCH (10:25)
[2022-07-05] MEDS: QUEtiapine FUMARATE **XR** 200MG TABLET PO SCH (21:32)
[2022-07-05] MEDS: PRAZOSIN 1 MG CAP PO SCH (21:32)
[2022-07-05] MEDS: traZODone 50 MG TAB PO SCH (21:32)
[2022-07-05] MEDS: hydrOXYzine 50 MG TAB PO PRN (21:32)
[2022-07-06] MEDS: ACETAMINOPHEN TAB 650MG DOSE (2X325MG) PO PRN (00:43)
[2022-07-06 05:29] VITALS: BP 107/70
[2022-07-06] MEDS: HEPARIN SOD (PORCINE) 5000UNITS/ML 1ML VIAL/SYRINGE SC SCH ×3 (05:33→21:49)
[2022-07-06] MEDS: LEVOTHYROXINE 150MCG TABLET (0.15MG) PO SCH (05:34)
[2022-07-06] MEDS: NORCO, ANEXSIA 5/325MG TABLET (HYDROcodone/ACETAMINOPHEN) PO PRN ×2 (05:34→18:28)
[2022-07-06] MEDS: TOPIRAMATE (TopAMAX) 25 MG TAB PO SCH (08:53)
[2022-07-06] MEDS: GABAPENTIN 400MG CAP PO SCH ×3 (08:53→21:49)
[2022-07-06] MEDS: VENLAFAXINE **XR** 75MG CAPSULE PO SCH (08:53)
[2022-07-06] MEDS: METHADONE 10MG TAB PO SCH (08:54)
[2022-07-06] MEDS: CEPHALEXIN 500 MG CAP PO SCH (08:54)
[2022-07-06 20:44] VITALS: BP 127/85
[2022-07-06] MEDS: PRAZOSIN 1 MG CAP PO SCH (21:52)
[2022-07-06] MEDS: traZODone 50 MG TAB PO SCH (21:53)
[2022-07-06] MEDS: QUEtiapine FUMARATE **XR** 200MG TABLET PO SCH (21:53)
[2022-07-07 05:31] VITALS: BP 113/66
[2022-07-07] MEDS: HEPARIN SOD (PORCINE) 5000UNITS/ML 1ML VIAL/SYRINGE SC SCH ×3 (05:37→21:34)
[2022-07-07] MEDS: LEVOTHYROXINE 150MCG TABLET (0.15MG) PO SCH (05:37)
[2022-07-07] MEDS: NORCO, ANEXSIA 5/325MG TABLET (HYDROcodone/ACETAMINOPHEN) PO PRN ×3 (05:38→21:36)
[2022-07-07] MEDS: METHADONE 10MG TAB PO SCH (09:07)
[2022-07-07] MEDS: VENLAFAXINE **XR** 75MG CAPSULE PO SCH (09:08)
[2022-07-07] MEDS: GABAPENTIN 400MG CAP PO SCH ×3 (09:08→21:35)
[2022-07-07] MEDS: TOPIRAMATE (TopAMAX) 25 MG TAB PO SCH (09:08)
[2022-07-07] MEDS: ACETAMINOPHEN TAB 650MG DOSE (2X325MG) PO PRN (19:45)
[2022-07-07] MEDS: PRAZOSIN 1 MG CAP PO SCH (21:35)
[2022-07-07] MEDS: hydrOXYzine 50 MG TAB PO PRN (21:35)
[2022-07-07] MEDS: traZODone 50 MG TAB PO SCH (21:35)
[2022-07-07] MEDS: QUEtiapine FUMARATE **XR** 200MG TABLET PO SCH (21:36)
[2022-07-08 02:50] VITALS: BP 111/72
[2022-07-08] MEDS: HEPARIN SOD (PORCINE) 5000UNITS/ML 1ML VIAL/SYRINGE SC SCH ×3 (05:33→21:12)
[2022-07-08] MEDS: NORCO, ANEXSIA 5/325MG TABLET (HYDROcodone/ACETAMINOPHEN) PO PRN ×3 (05:34→21:13)
[2022-07-08] MEDS: LEVOTHYROXINE 150MCG TABLET (0.15MG) PO SCH (05:34)
[2022-07-08 07:49] VITALS: BP 115/75
[2022-07-08 08:17] LABS: HEMATOCRIT 29.3 % (36.0-47.0); HEMOGLOBIN 8.8 g/dl (12.0-15.5); MEAN CORPUSCULAR HEMOGLOBIN 24.1 pg (27.0-33.0); MEAN CORPUSCULAR VOLUME 80.3 fl (80.0-96.0); PLATELET COUNT, AUTOMATED 174 10^3/uL (150-450); RED BLOOD COUNT 3.65 10^6/uL (4.00-5.40)
[2022-07-08] MEDS: ACETAMINOPHEN TAB 650MG DOSE (2X325MG) PO PRN (08:30)
[2022-07-08] MEDS: METHADONE 10MG TAB PO SCH (08:31)
[2022-07-08] MEDS: TOPIRAMATE (TopAMAX) 25 MG TAB PO SCH (08:32)
[2022-07-08] MEDS: GABAPENTIN 400MG CAP PO SCH ×3 (08:32→21:12)
[2022-07-08] MEDS: VENLAFAXINE **XR** 75MG CAPSULE PO SCH (08:32)
[2022-07-08 08:48] LABS: CALCIUM LEVEL 8.3 MG/DL (8.5-10.1); CREATININE FOR GFR 1.29 MG/DL (0.55-1.30); GLOMERULAR FILTRATION RATE 48.7 (>58); MAGNESIUM LEVEL 1.9 MG/DL (1.8-2.4)
[2022-07-08 08:51] LABS: ATYPICAL LYMPH 1 % (0-5); EOSINOPHILS 5 % (0-3); LYMPHOCYTES 23 % (16-44); METAMYELOCYTES 1 % (0-0); MONOCYTES 2 % (0-5); MYELOCYTES 1 % (0-0); NEUTROPHILS 62 % (28-66)
[2022-07-08 08:52] LABS: ANISOCYTOSIS 1+; HYPOCHROMASIA 1+; PLATELET ESTIMATE NORMAL (NORMAL)
[2022-07-08 08:53] LABS: OVALOCYTES 1+; TEAR DROP CELLS 1+
[2022-07-08] MEDS: QUEtiapine FUMARATE **XR** 200MG TABLET PO SCH (21:09)
[2022-07-08 21:11] VITALS: BP 114/70
[2022-07-08] MEDS: PRAZOSIN 1 MG CAP PO SCH (21:11)
[2022-07-08] MEDS: traZODone 50 MG TAB PO SCH (21:12)
[2022-07-09] MEDS: HEPARIN SOD (PORCINE) 5000UNITS/ML 1ML VIAL/SYRINGE SC SCH (05:18)
[2022-07-09] MEDS: LEVOTHYROXINE 150MCG TABLET (0.15MG) PO SCH (05:18)
[2022-07-09] MEDS: NORCO, ANEXSIA 5/325MG TABLET (HYDROcodone/ACETAMINOPHEN) PO PRN ×2 (05:19→12:34)
[2022-07-09 05:21] VITALS: BP 123/69
[2022-07-09] MEDS: GABAPENTIN 400MG CAP PO SCH (09:13)
[2022-07-09] MEDS: ACETAMINOPHEN TAB 650MG DOSE (2X325MG) PO PRN (09:13)
[2022-07-09] MEDS: METHADONE 10MG TAB PO SCH (09:13)
[2022-07-09] MEDS: TOPIRAMATE (TopAMAX) 25 MG TAB PO SCH (09:14)
[2022-07-09] MEDS: VENLAFAXINE **XR** 75MG CAPSULE PO SCH (09:14)
[2022-07-09] MEDS ORDERED: HYDR-3715 PO (12:03)
== END 2022-07-09 14:50 | DRG 313 ==
LOC: M ED 11:29 → EDBD 11:29 → M ED INP 14:54 → ENRESERV 15:17 → M MS5PR 15:50
PROVIDERS: ADMIT Internal Medicine; ATTEND Internal Medicine
PROC: 0QSP04Z Reposition Left Metatarsal with Internal Fixation Device, Open Approach (ICD-10-PCS; 2022-06-30)
PROC: 0QSG04Z Reposition Right Tibia with Internal Fixation Device, Open Approach (ICD-10-PCS; principal; 2022-06-30 11:00)
DX: S82.851A Displaced trimalleolar fracture of right lower leg, initial encounter for closed fracture (principal); J38.6 Stenosis of larynx; J38.00 Paralysis of vocal cords and larynx, unspecified; Z93.0 Tracheostomy status; E66.01 Morbid (severe) obesity due to excess calories; F25.9 Schizoaffective disorder, unspecified; Z68.41 Body mass index [BMI] 40.0-44.9, adult; N18.31 Chronic kidney disease, stage 3a; G47.33 Obstructive sleep apnea (adult) (pediatric); J45.909 Unspecified asthma, uncomplicated; E03.9 Hypothyroidism, unspecified; G47.00 Insomnia, unspecified; F41.9 Anxiety disorder, unspecified; F60.3 Borderline personality disorder; F43.10 Post-traumatic stress disorder, unspecified; Z79.890 Hormone replacement therapy; Z79.899 Other long term (current) drug therapy; X50.1XXA Overexertion from prolonged static or awkward postures, initial encounter; Y92.013 Bedroom of single-family (private) house as the place of occurrence of the external cause; Y93.89 Activity, other specified; Y99.8 Other external cause status; S99.922D Unspecified injury of left foot, subsequent encounter

== ENCOUNTER → 2022-07-17 | Outpatient (CLI) | payer OTHER ==
[~2022-07-17] MED LIST changes: +HYDR-3715 PO; +TOPI-254 PO
== END ==
LOC: M SOG 08:45
PROVIDERS: ATTEND Orthopaedic Surgery
DX: Z47.89 Encounter for other orthopedic aftercare (principal); S93.321D Subluxation of tarsometatarsal joint of right foot, subsequent encounter; W18.30XD Fall on same level, unspecified, subsequent encounter; Y92.009 Unspecified place in unspecified non-institutional (private) residence as the place of occurrence of the external cause

== ENCOUNTER → 2022-08-28 | Outpatient (CLI) | payer OTHER ==
[~2022-08-28] MED LIST changes: +BENZ0.5T2 PO; -BENZ0.5T23 PO
== END ==
LOC: M SOG 10:19
PROVIDERS: ATTEND Orthopaedic Surgery
DX: S93.321D Subluxation of tarsometatarsal joint of right foot, subsequent encounter (principal); S82.851D Displaced trimalleolar fracture of right lower leg, subsequent encounter for closed fracture with routine healing; W18.30XD Fall on same level, unspecified, subsequent encounter

== ENCOUNTER 2022-09-30 17:43 | Emergency (ER) | payer OTHER ==
[~2022-09-30] VITALS: Ht 160 cm; Wt 118.2 kg
[2022-09-30 17:44] VITALS: BP 131/99; TEMP 98.5; O2SAT 91
== END 2022-09-30 18:53 | disposition left against medical advice (07) ==
LOC: M ED 17:43
DX: Z53.21 Procedure and treatment not carried out due to patient leaving prior to being seen by health care provider (principal)

== ENCOUNTER → 2022-10-13 | Outpatient (CLI) | payer OTHER | LOC: M SOG 08:47 | PROVIDERS: ATTEND Orthopaedic Surgery | DX: S82.851D Displaced trimalleolar fracture of right lower leg, subsequent encounter for closed fracture with routine healing (principal); W18.30XD Fall on same level, unspecified, subsequent encounter ==

== ENCOUNTER 2022-10-30 08:49 | Emergency (ER) | payer OTHER ==
[~2022-10-30] VITALS: Ht 160 cm; Wt 93.6 kg
[2022-10-30] MEDS ORDERED: ACETAMINOPHEN 325 MG TAB PO ONE (10:50)
[2022-10-30] MEDS ORDERED: KETOROLAC TROMETHAMINE 10 MG TAB PO ONE (11:30)
[2022-10-30] MEDS ORDERED: LIDOCAINE 2% MDV 20ML VIAL SC ONE (11:30)
[2022-10-30 13:10] VITALS: BP 132/92; TEMP 96.4; O2SAT 94
== END 2022-10-30 13:16 | disposition home or self-care (01) ==
LOC: M ED 08:49
DX: S91.312A Laceration without foreign body, left foot, initial encounter (principal); W19.XXXA Unspecified fall, initial encounter; Y92.009 Unspecified place in unspecified non-institutional (private) residence as the place of occurrence of the external cause; Y93.01 Activity, walking, marching and hiking; Y99.8 Other external cause status; I12.9 Hypertensive chronic kidney disease with stage 1 through stage 4 chronic kidney disease, or unspecified chronic kidney disease; N18.30 Chronic kidney disease, stage 3 unspecified; J45.909 Unspecified asthma, uncomplicated; E03.9 Hypothyroidism, unspecified; M54.9 Dorsalgia, unspecified; F32.A Depression, unspecified; F25.9 Schizoaffective disorder, unspecified; F43.10 Post-traumatic stress disorder, unspecified; F90.9 Attention-deficit hyperactivity disorder, unspecified type; Z86.14 Personal history of Methicillin resistant Staphylococcus aureus infection; F19.10 Other psychoactive substance abuse, uncomplicated; Z79.899 Other long term (current) drug therapy; E66.9 Obesity, unspecified

== ENCOUNTER 2022-11-08 15:01 | Emergency (ER) | payer OTHER ==
[~2022-11-08] VITALS: Ht 160 cm; Wt 118.2 kg
[~2022-11-08 15:01] MED LIST changes: -GABA-283 PO; +GABA-284 PO
[2022-11-08 15:02] VITALS: BP 110/66; TEMP 97.5; O2SAT 95
[2022-11-08] MEDS ORDERED: BOOSTRIX VACCINE (TETANUS/DIPHTH/ACEL. PERTUSSIS) 0.5ML SYR IM ONE (16:15)
[2022-11-08] MEDS ORDERED: CEPHALEXIN 500 MG CAP PO ONE (16:15)
[2022-11-08] MEDS ORDERED: CEPH500C PO ×2 (16:25→16:47)
== END 2022-11-08 16:56 | disposition home or self-care (01) ==
LOC: M ED 15:01
DX: T81.31XA Disruption of external operation (surgical) wound, not elsewhere classified, initial encounter (principal); X58.XXXA Exposure to other specified factors, initial encounter; Y92.89 Other specified places as the place of occurrence of the external cause; Y93.89 Activity, other specified; Y99.8 Other external cause status

== ENCOUNTER 2022-11-08 22:25 | Emergency (ER) | payer OTHER ==
[~2022-11-08] VITALS: Ht 160 cm; Wt 119.1 kg
[2022-11-08 22:26] VITALS: BP 136/81; TEMP 96; O2SAT 94
== END 2022-11-09 00:02 | disposition left against medical advice (07) ==
LOC: M ED 22:25
DX: Z53.21 Procedure and treatment not carried out due to patient leaving prior to being seen by health care provider (principal)

== ENCOUNTER 2022-11-20 20:18 | Emergency (ER) | payer OTHER ==
[~2022-11-20] VITALS: Ht 160 cm; Wt 124.1 kg
[2022-11-20 20:18] VITALS: TEMP 97.8
[2022-11-21] MEDS ORDERED: KETOROLAC 30 MG/ML 1ML VIAL IM ONE (02:50)
[2022-11-21] MEDS ORDERED: MORPHINE 4 MG/ML 1ML VIAL IM ONE (02:50)
[2022-11-21 03:41] VITALS: BP 140/82; O2SAT 99
== END 2022-11-21 03:47 | disposition home or self-care (01) ==
LOC: M ED 20:18
DX: S93.325A Dislocation of tarsometatarsal joint of left foot, initial encounter (principal); W19.XXXA Unspecified fall, initial encounter; Y92.009 Unspecified place in unspecified non-institutional (private) residence as the place of occurrence of the external cause; Y93.89 Activity, other specified; Y99.8 Other external cause status; F90.9 Attention-deficit hyperactivity disorder, unspecified type; F43.10 Post-traumatic stress disorder, unspecified; F41.9 Anxiety disorder, unspecified; F32.A Depression, unspecified; F10.10 Alcohol abuse, uncomplicated; Z79.899 Other long term (current) drug therapy
CPT/HCPCS: 73630; 96372; 99283; J1885

== ENCOUNTER 2022-11-21 13:45 | Inpatient (IN) | payer OTHER ==
[~2022-11-21] VITALS: Ht 160 cm; Wt 125.1 kg
[2022-11-21 14:58] LABS: BASO # 0.1 10^3/uL (0.0-0.2); BASO % 0.3 % (0.0-1.0); EOS % 0.2 % (0.0-3.0); HEMATOCRIT 46.3 % (36.0-47.0); HEMOGLOBIN 16.5 g/dl (12.0-15.5); LYMPH # 4.8 10^3/uL (1.5-5.0); LYMPH % 23.3 % (24.0-44.0); MEAN CORPUSCULAR HEMOGLOBIN 28.7 pg (27.0-33.0); MEAN CORPUSCULAR HGB CONC 35.6 g/dl (32.0-36.5); MEAN CORPUSCULAR VOLUME 80.7 fl (80.0-96.0); MONO # 1.2 10^3/uL (0.0-0.8); NEUTROPHILS # 14.3 10^3/uL (1.5-8.5); NEUTROPHILS % 69.7 % (36.0-66.0); PLATELET COUNT, AUTOMATED 476 10^3/uL (150-450); RED BLOOD COUNT 5.74 10^6/uL (4.00-5.40); WHITE BLOOD COUNT 20.5 10^3/uL (4.0-10.0)
[2022-11-21 15:06] LABS: ERYTHROCYTE SEDIMENTATION RATE 34 mm/hr (0-20)
[2022-11-21 15:23] LABS: ETHYL ALCOHOL (ETHANOL) < 0.003 % (0.000-0.010)
[2022-11-21 15:24] LABS: SALICYLATE LEVEL < 3.0 MG/DL (<30)
[2022-11-21 15:28] LABS: THYROID STIMULATING HORMONE 5.174 uIU/ML (0.55-4.78)
[2022-11-21] MEDS ORDERED: NS 1,000 ML IV ONE (15:30)
[2022-11-21 15:33] LABS: PROCALCITONIN 0.04 ng/ml
[2022-11-21 15:35] LABS: ACETAMINOPHEN LEVEL 11.2 UG/ML (10.0-20.0); ALBUMIN 4.4 G/DL (3.2-5.2); ALKALINE PHOSPHATASE 37 U/L (46-116); ALT/SGPT 95 U/L (7.0-40); AST/SGOT 53 U/L (<34); BILIRUBIN,DIRECT 0.3 MG/DL (<0.4); BLOOD UREA NITROGEN 12 MG/DL (9-23); CARBON DIOXIDE LEVEL 21 MMOL/L (20-31); CHLORIDE LEVEL 97 MMOL/L (98-107); GLOMERULAR FILTRATION RATE > 60.0 (>58); GLUCOSE, FASTING 75 MG/DL (60-100); SODIUM LEVEL 136 MMOL/L (136-145); TOTAL PROTEIN 8.3 G/DL (5.7-8.2)
[2022-11-21] MEDS ORDERED: PIPERACILLIN/TAZOBACTAM SOD 4.5 GM in D5W MINI-BAG PLUS 50 ML IV ONE (15:50)
[2022-11-21] MEDS ORDERED: MORPHINE 2 MG/ML 1ML VIAL IV ONE (16:25)
[2022-11-21 16:49] LABS: AMPHETAMINES LEVEL URINE NEGATIVE (NEGATIVE)
[2022-11-21 16:50] LABS: BARBITURATES URINE NEGATIVE (NEGATIVE); BENZODIAZEPINES URINE NEGATIVE (NEGATIVE); CANNABINOIDS URINE NEGATIVE (NEGATIVE); COCAINE METABOLITE URINE NEGATIVE (NEGATIVE); PHENCYCLIDINE URINE NEGATIVE (NEGATIVE)
[2022-11-21 16:54] LABS: METHADONE URINE POSITIVE (NEGATIVE); OPIATES URINE POSITIVE (NEGATIVE)
[2022-11-21] MEDS ORDERED: MED REC IN PROGRESS XX SCH (18:10)
[2022-11-21] MEDS: LR 1,000 ML IV SCH (18:25)
[2022-11-21 20:57] LABS: HEMATOCRIT 31.8 % (36.0-47.0); MEAN CORPUSCULAR HEMOGLOBIN 25.8 pg (27.0-33.0); MEAN CORPUSCULAR HGB CONC 29.6 g/dl (32.0-36.5); MEAN CORPUSCULAR VOLUME 87.1 fl (80.0-96.0); RED BLOOD COUNT 3.65 10^6/uL (4.00-5.40)
[2022-11-21 20:58] LABS: HEMOGLOBIN 9.4 g/dl (12.0-15.5)
[2022-11-21 20:59] LABS: PLATELET COUNT, AUTOMATED 110 10^3/uL (150-450)
[2022-11-21] MEDS ORDERED: VANCOMYCIN HCL 1,000 MG, VIAL MATE ADAPTER 1 EACH in D5W 250 ML IV ONE (21:00)
[2022-11-21 21:44] LABS: ATYPICAL LYMPH 2 % (0-5); EOSINOPHILS 4 % (0-3); LYMPHOCYTES 27 % (16-44); MONOCYTES 2 % (0-5); NEUTROPHILS 57 % (28-66); PLATELET ESTIMATE DECREASED (NORMAL)
[2022-11-21 21:45] VITALS: BP 122/95; TEMP 97.9; O2SAT 85
[2022-11-21 21:45] LABS: ANISOCYTOSIS 2+; HYPOCHROMASIA 2+
[2022-11-21 21:46] LABS: OVALOCYTES 1+
[2022-11-21] MEDS ORDERED: MORPHINE 2 MG/ML 1ML VIAL IV PRN (21:50)
[2022-11-21] MEDS ORDERED: HOME MED LIST COMPLETE! XX SCH (21:55)
[2022-11-21] MEDS: MORPHINE 4 MG/ML 1ML VIAL IV PRN (22:05)
[2022-11-22] MEDS: PIPERACILLIN/TAZOBACTAM SOD 3.375 GM in D5W MINI-BAG PLUS 50 ML IV SCH ×3 (00:05→10:00)
[2022-11-22] MEDS: MORPHINE 4 MG/ML 1ML VIAL IV PRN ×2 (02:08→06:09)
[2022-11-22] MEDS: LEVOTHYROXINE 150MCG TABLET (0.15MG) PO SCH (05:39)
[2022-11-22 06:00] VITALS: BP 117/79; TEMP 97.5; O2SAT 93
[2022-11-22] MEDS ORDERED: VANCOMYCIN HCL 1,000 MG, VIAL MATE ADAPTER 1 EACH in D5W 250 ML IV SCH (06:00)
[2022-11-22] MEDS: LR 1,000 ML IV SCH ×2 (07:05→17:34)
[2022-11-22 07:49] LABS: BASO % 1.3 % (0.0-1.0); EOS # 0.1 10^3/uL (0.0-0.5); EOS % 3.5 % (0.0-3.0); HEMATOCRIT 33.6 % (36.0-47.0); HEMOGLOBIN 9.7 g/dl (12.0-15.5); LYMPH # 0.8 10^3/uL (1.5-5.0); LYMPH % 26.1 % (24.0-44.0); MEAN CORPUSCULAR HEMOGLOBIN 26.1 pg (27.0-33.0); MEAN CORPUSCULAR HGB CONC 28.9 g/dl (32.0-36.5); MEAN CORPUSCULAR VOLUME 90.3 fl (80.0-96.0); MONO # 0.3 10^3/uL (0.0-0.8); MONO % 8.2 % (2.0-8.0); NEUTROPHILS # 1.9 10^3/uL (1.5-8.5); NEUTROPHILS % 60.6 % (36.0-66.0); RED BLOOD COUNT 3.72 10^6/uL (4.00-5.40); WHITE BLOOD COUNT 3.2 10^3/uL (4.0-10.0)
[2022-11-22 08:19] LABS: PLATELET COUNT, AUTOMATED 97 10^3/uL (150-450)
[2022-11-22] MEDS: TOPIRAMATE (TopAMAX) 25 MG TAB PO SCH (09:08)
[2022-11-22] MEDS: VENLAFAXINE **XR** 75MG CAPSULE PO SCH ×2 (09:08→09:11)
[2022-11-22] MEDS: GABAPENTIN 400MG CAP PO SCH ×3 (09:09→21:25)
[2022-11-22 09:15] LABS: ALBUMIN 3.7 G/DL (3.2-5.2); CALCIUM LEVEL 8.3 MG/DL (8.5-10.1); CREATININE FOR GFR 1.77 MG/DL (0.55-1.30); GLOMERULAR FILTRATION RATE 33.8 (>58); PHOSPHORUS LEVEL 2.9 MG/DL (2.5-4.9); POTASSIUM SERUM 3.8 MMOL/L (3.5-5.1)
[2022-11-22] MEDS ORDERED: METHADONE 10MG TAB PO SCH (10:20)
[2022-11-22] MEDS ORDERED: ACETAMINOPHEN TAB 650MG DOSE (2X325MG) PO PRN (10:50)
[2022-11-22] MEDS: NORCO, ANEXSIA 5/325MG TABLET (HYDROcodone/ACETAMINOPHEN) PO PRN ×2 (11:25→18:34)
[2022-11-22] MEDS: METHADONE 10MG TAB PO SCH (11:25)
[2022-11-22] MEDS: AMOXICILLIN 875 MG TAB PO SCH ×2 (15:46→21:28)
[2022-11-22] MEDS: DOXYCYCLINE HYCLATE 100MG TABLET PO SCH ×2 (15:46→21:25)
[2022-11-22] MEDS: RIVAROXABAN 10MG TAB (XARELTO) PO SCH (18:33)
[2022-11-22] MEDS: traZODone 50 MG TAB PO SCH (21:24)
[2022-11-22] MEDS: PRAZOSIN 1 MG CAP PO SCH (21:28)
[2022-11-22 22:00] VITALS: BP 117/80; TEMP 97.7; O2SAT 95
[2022-11-23] MEDS: NORCO, ANEXSIA 5/325MG TABLET (HYDROcodone/ACETAMINOPHEN) PO PRN ×4 (01:22→19:45)
[2022-11-23] MEDS: LEVOTHYROXINE 150MCG TABLET (0.15MG) PO SCH (05:17)
[2022-11-23 06:00] VITALS: BP 118/82; TEMP 97; O2SAT 93
[2022-11-23 07:54] LABS: BASO % 1.4 % (0.0-1.0); EOS # 0.1 10^3/uL (0.0-0.5); EOS % 3.5 % (0.0-3.0); HEMATOCRIT 31.6 % (36.0-47.0); HEMOGLOBIN 9.3 g/dl (12.0-15.5); LYMPH # 0.8 10^3/uL (1.5-5.0); LYMPH % 26.5 % (24.0-44.0); MEAN CORPUSCULAR HEMOGLOBIN 25.8 pg (27.0-33.0); MEAN CORPUSCULAR HGB CONC 29.4 g/dl (32.0-36.5); MEAN CORPUSCULAR VOLUME 87.8 fl (80.0-96.0); MONO # 0.2 10^3/uL (0.0-0.8); MONO % 7.4 % (2.0-8.0); NEUTROPHILS # 1.7 10^3/uL (1.5-8.5); NEUTROPHILS % 60.8 % (36.0-66.0); PLATELET COUNT, AUTOMATED 103 10^3/uL (150-450); WHITE BLOOD COUNT 2.8 10^3/uL (4.0-10.0)
[2022-11-23 08:41] LABS: ALBUMIN 3.6 G/DL (3.2-5.2); BILIRUBIN,TOTAL 0.4 MG/DL (0.3-1.2); CALCIUM LEVEL 8.2 MG/DL (8.5-10.1); CREATININE FOR GFR 1.69 MG/DL (0.55-1.30); GLOMERULAR FILTRATION RATE 35.7 (>58); POTASSIUM SERUM 3.9 MMOL/L (3.5-5.1); TOTAL PROTEIN 6.8 G/DL (5.7-8.2)
[2022-11-23] MEDS: VENLAFAXINE **XR** 75MG CAPSULE PO SCH ×2 (08:49)
[2022-11-23] MEDS: TOPIRAMATE (TopAMAX) 25 MG TAB PO SCH (08:49)
[2022-11-23] MEDS: DOXYCYCLINE HYCLATE 100MG TABLET PO SCH ×2 (08:49→21:09)
[2022-11-23] MEDS: AMOXICILLIN 875 MG TAB PO SCH ×2 (08:49→21:07)
[2022-11-23] MEDS: GABAPENTIN 400MG CAP PO SCH ×3 (08:49→21:09)
[2022-11-23] MEDS: METHADONE 10MG TAB PO SCH (08:49)
[2022-11-23] MEDS: LR 1,000 ML IV SCH ×2 (12:21→23:05)
[2022-11-23 14:00] VITALS: BP 131/95; TEMP 98.4; O2SAT 94
[2022-11-23] MEDS: RIVAROXABAN 10MG TAB (XARELTO) PO SCH (17:26)
[2022-11-23] MEDS: traZODone 50 MG TAB PO SCH (21:09)
[2022-11-23] MEDS: PRAZOSIN 1 MG CAP PO SCH (21:09)
[2022-11-23 22:00] VITALS: BP 133/85; TEMP 96.8; O2SAT 96
[2022-11-24] MEDS: NORCO, ANEXSIA 5/325MG TABLET (HYDROcodone/ACETAMINOPHEN) PO PRN ×3 (05:42→20:00)
[2022-11-24 06:00] VITALS: BP 114/81; TEMP 97.5; O2SAT 93
[2022-11-24] MEDS: LEVOTHYROXINE 150MCG TABLET (0.15MG) PO SCH (06:07)
[2022-11-24 06:33] LABS: BASO % 1.2 % (0.0-1.0); EOS # 0.1 10^3/uL (0.0-0.5); EOS % 4.3 % (0.0-3.0); HEMATOCRIT 31.7 % (36.0-47.0); HEMOGLOBIN 9.4 g/dl (12.0-15.5); LYMPH # 1.1 10^3/uL (1.5-5.0); LYMPH % 34.2 % (24.0-44.0); MEAN CORPUSCULAR HEMOGLOBIN 26.2 pg (27.0-33.0); MEAN CORPUSCULAR HGB CONC 29.7 g/dl (32.0-36.5); MEAN CORPUSCULAR VOLUME 88.3 fl (80.0-96.0); MONO # 0.2 10^3/uL (0.0-0.8); MONO % 6.8 % (2.0-8.0); NEUTROPHILS # 1.7 10^3/uL (1.5-8.5); NEUTROPHILS % 53.2 % (36.0-66.0); PLATELET COUNT, AUTOMATED 133 10^3/uL (150-450); RED BLOOD COUNT 3.59 10^6/uL (4.00-5.40); WHITE BLOOD COUNT 3.3 10^3/uL (4.0-10.0)
[2022-11-24 06:39] LABS: ALBUMIN 3.4 G/DL (3.2-5.2); BILIRUBIN,TOTAL 0.3 MG/DL (0.3-1.2); CALCIUM LEVEL 8.1 MG/DL (8.5-10.1); CREATININE FOR GFR 1.73 MG/DL (0.55-1.30); GLOMERULAR FILTRATION RATE 34.7 (>58); POTASSIUM SERUM 3.6 MMOL/L (3.5-5.1); TOTAL PROTEIN 6.6 G/DL (5.7-8.2)
[2022-11-24] MEDS: GABAPENTIN 400MG CAP PO SCH ×3 (08:29→21:19)
[2022-11-24] MEDS: DOXYCYCLINE HYCLATE 100MG TABLET PO SCH (08:29)
[2022-11-24] MEDS: AMOXICILLIN 875 MG TAB PO SCH (08:29)
[2022-11-24] MEDS: VENLAFAXINE **XR** 75MG CAPSULE PO SCH ×2 (08:29)
[2022-11-24] MEDS: TOPIRAMATE (TopAMAX) 25 MG TAB PO SCH (08:29)
[2022-11-24] MEDS: METHADONE 10MG TAB PO SCH (08:30)
[2022-11-24] MEDS: LR 1,000 ML IV SCH (12:25)
[2022-11-24 14:00] VITALS: BP 119/83; TEMP 97.9; O2SAT 92
[2022-11-24] MEDS: RIVAROXABAN 10MG TAB (XARELTO) PO SCH (17:05)
[2022-11-24] MEDS: PRAZOSIN 1 MG CAP PO SCH (21:19)
[2022-11-24] MEDS: traZODone 50 MG TAB PO SCH (21:19)
[2022-11-24 21:41] VITALS: BP 120/62; TEMP 97.7; O2SAT 67
[2022-11-25] MEDS: LR 1,000 ML IV SCH ×2 (01:45→14:08)
[2022-11-25] MEDS: NORCO, ANEXSIA 5/325MG TABLET (HYDROcodone/ACETAMINOPHEN) PO PRN ×4 (02:29→21:50)
[2022-11-25 05:48] LABS: HEMATOCRIT 32.1 % (36.0-47.0); HEMOGLOBIN 9.4 g/dl (12.0-15.5); MEAN CORPUSCULAR HEMOGLOBIN 26.1 pg (27.0-33.0); MEAN CORPUSCULAR HGB CONC 29.3 g/dl (32.0-36.5); MEAN CORPUSCULAR VOLUME 89.2 fl (80.0-96.0); PLATELET COUNT, AUTOMATED 108 10^3/uL (150-450); WHITE BLOOD COUNT 3.1 10^3/uL (4.0-10.0)
[2022-11-25 06:00] VITALS: BP 93/68; TEMP 97.7; O2SAT 97
[2022-11-25 06:28] LABS: ALBUMIN 3.5 G/DL (3.2-5.2); BILIRUBIN,TOTAL 0.3 MG/DL (0.3-1.2); CALCIUM LEVEL 8.3 MG/DL (8.5-10.1); CREATININE FOR GFR 1.57 MG/DL (0.55-1.30); GLOMERULAR FILTRATION RATE 38.8 (>58); MAGNESIUM LEVEL 1.9 MG/DL (1.8-2.4); POTASSIUM SERUM 3.4 MMOL/L (3.5-5.1); TOTAL PROTEIN 6.4 G/DL (5.7-8.2)
[2022-11-25] MEDS: LEVOTHYROXINE 150MCG TABLET (0.15MG) PO SCH (06:29)
[2022-11-25 07:05] LABS: BASOPHILS 1 % (0-1); EOSINOPHILS 3 % (0-3); LYMPHOCYTES 38 % (16-44); MONOCYTES 7 % (0-5); NEUTROPHILS 50 % (28-66); PLATELET ESTIMATE DECREASED (NORMAL)
[2022-11-25 07:06] LABS: ANISOCYTOSIS 1+; OVALOCYTES 1+; POLYCHROMASIA 1+
[2022-11-25 07:07] LABS: HYPOCHROMASIA 1+; MICROCYTOSIS 1+
[2022-11-25] MEDS ORDERED: POTASSIUM CHLORIDE 10MEQ SR TABLET PO ONE (08:00)
[2022-11-25] MEDS: VENLAFAXINE **XR** 75MG CAPSULE PO SCH ×2 (08:27)
[2022-11-25] MEDS: TOPIRAMATE (TopAMAX) 25 MG TAB PO SCH (08:27)
[2022-11-25] MEDS: AMOXICILLIN 875 MG TAB PO SCH ×2 (08:27→20:32)
[2022-11-25] MEDS: GABAPENTIN 400MG CAP PO SCH ×3 (08:27→20:32)
[2022-11-25] MEDS: METHADONE 10MG TAB PO SCH (08:28)
[2022-11-25] MEDS: DOXYCYCLINE HYCLATE 100MG TABLET PO SCH ×2 (08:28→20:32)
[2022-11-25] MEDS: RIVAROXABAN 10MG TAB (XARELTO) PO SCH (17:04)
[2022-11-25] MEDS: traZODone 50 MG TAB PO SCH (20:32)
[2022-11-25] MEDS: PRAZOSIN 1 MG CAP PO SCH (20:32)
[2022-11-26] MEDS: NORCO, ANEXSIA 5/325MG TABLET (HYDROcodone/ACETAMINOPHEN) PO PRN ×4 (04:02→23:52)
[2022-11-26] MEDS: LR 1,000 ML IV SCH ×2 (04:25→17:45)
[2022-11-26] MEDS: LEVOTHYROXINE 150MCG TABLET (0.15MG) PO SCH (05:32)
[2022-11-26 06:00] VITALS: BP 105/75; TEMP 97.3; O2SAT 95
[2022-11-26 06:41] LABS: HEMATOCRIT 31.1 % (36.0-47.0); HEMOGLOBIN 9.1 g/dl (12.0-15.5); MEAN CORPUSCULAR HEMOGLOBIN 25.9 pg (27.0-33.0); MEAN CORPUSCULAR HGB CONC 29.3 g/dl (32.0-36.5); MEAN CORPUSCULAR VOLUME 88.4 fl (80.0-96.0); PLATELET COUNT, AUTOMATED 100 10^3/uL (150-450); RED BLOOD COUNT 3.52 10^6/uL (4.00-5.40); WHITE BLOOD COUNT 3.2 10^3/uL (4.0-10.0)
[2022-11-26 07:11] LABS: ALBUMIN 3.4 G/DL (3.2-5.2); BILIRUBIN,TOTAL 0.2 MG/DL (0.3-1.2); CALCIUM LEVEL 8.5 MG/DL (8.5-10.1); CREATININE FOR GFR 1.64 MG/DL (0.55-1.30); GLOMERULAR FILTRATION RATE 36.9 (>58); MAGNESIUM LEVEL 1.8 MG/DL (1.8-2.4); POTASSIUM SERUM 3.7 MMOL/L (3.5-5.1); TOTAL PROTEIN 6.3 G/DL (5.7-8.2)
[2022-11-26 07:47] LABS: ATYPICAL LYMPH 17 % (0-5); BASOPHILS 3 % (0-1); EOSINOPHILS 1 % (0-3); LYMPHOCYTES 15 % (16-44); MONOCYTES 8 % (0-5); NEUTROPHILS 56 % (28-66)
[2022-11-26 07:48] LABS: PLATELET ESTIMATE DECREASED (NORMAL)
[2022-11-26 07:49] LABS: OVALOCYTES 2+; POLYCHROMASIA 1+
[2022-11-26] MEDS: DOXYCYCLINE HYCLATE 100MG TABLET PO SCH ×2 (08:05→21:15)
[2022-11-26] MEDS: VENLAFAXINE **XR** 75MG CAPSULE PO SCH ×2 (08:05)
[2022-11-26] MEDS: TOPIRAMATE (TopAMAX) 25 MG TAB PO SCH (08:05)
[2022-11-26] MEDS: GABAPENTIN 400MG CAP PO SCH ×3 (08:05→21:15)
[2022-11-26] MEDS: AMOXICILLIN 875 MG TAB PO SCH ×2 (08:06→21:14)
[2022-11-26] MEDS: METHADONE 10MG TAB PO SCH (08:06)
[2022-11-26] MEDS: RIVAROXABAN 10MG TAB (XARELTO) PO SCH (17:48)
[2022-11-26] MEDS: traZODone 50 MG TAB PO SCH (21:15)
[2022-11-26] MEDS: PRAZOSIN 1 MG CAP PO SCH (21:16)
[2022-11-27 04:54] VITALS: BP 145/91; TEMP 97.7; O2SAT 95
[2022-11-27] MEDS: LEVOTHYROXINE 150MCG TABLET (0.15MG) PO SCH (06:00)
[2022-11-27] MEDS: NORCO, ANEXSIA 5/325MG TABLET (HYDROcodone/ACETAMINOPHEN) PO PRN ×3 (06:02→17:55)
[2022-11-27 06:32] LABS: HEMATOCRIT 31.3 % (36.0-47.0); HEMOGLOBIN 9.2 g/dl (12.0-15.5); MEAN CORPUSCULAR HEMOGLOBIN 26.1 pg (27.0-33.0); MEAN CORPUSCULAR HGB CONC 29.4 g/dl (32.0-36.5); MEAN CORPUSCULAR VOLUME 88.9 fl (80.0-96.0); PLATELET COUNT, AUTOMATED 101 10^3/uL (150-450); RED BLOOD COUNT 3.52 10^6/uL (4.00-5.40); WHITE BLOOD COUNT 2.9 10^3/uL (4.0-10.0)
[2022-11-27 06:53] LABS: ALBUMIN 3.5 G/DL (3.2-5.2); BILIRUBIN,TOTAL 0.3 MG/DL (0.3-1.2); CALCIUM LEVEL 8.6 MG/DL (8.5-10.1); CREATININE FOR GFR 1.76 MG/DL (0.55-1.30); MAGNESIUM LEVEL 1.8 MG/DL (1.8-2.4); POTASSIUM SERUM 3.9 MMOL/L (3.5-5.1); TOTAL PROTEIN 6.5 G/DL (5.7-8.2)
[2022-11-27] MEDS: LR 1,000 ML IV SCH ×2 (07:05→20:21)
[2022-11-27 07:23] LABS: ANISOCYTOSIS 4+; EOSINOPHILS 3 % (0-3); LYMPHOCYTES 51 % (16-44); MONOCYTES 5 % (0-5); NEUTROPHILS 41 % (28-66); PLATELET ESTIMATE NORMAL (NORMAL)
[2022-11-27 07:24] LABS: HYPOCHROMASIA 2+; OVALOCYTES 2+; TEAR DROP CELLS 1+
[2022-11-27] MEDS: METHADONE 10MG TAB PO SCH (09:25)
[2022-11-27] MEDS: AMOXICILLIN 875 MG TAB PO SCH ×2 (09:27→20:23)
[2022-11-27] MEDS: VENLAFAXINE **XR** 75MG CAPSULE PO SCH ×2 (09:27→09:28)
[2022-11-27] MEDS: TOPIRAMATE (TopAMAX) 25 MG TAB PO SCH (09:29)
[2022-11-27] MEDS: GABAPENTIN 400MG CAP PO SCH ×3 (09:29→20:23)
[2022-11-27] MEDS: DOXYCYCLINE HYCLATE 100MG TABLET PO SCH ×2 (09:29→20:23)
[2022-11-27] MEDS: RIVAROXABAN 10MG TAB (XARELTO) PO SCH (17:55)
[2022-11-27] MEDS: PRAZOSIN 1 MG CAP PO SCH (20:23)
[2022-11-27] MEDS: traZODone 50 MG TAB PO SCH (20:23)
[2022-11-28] MEDS: NORCO, ANEXSIA 5/325MG TABLET (HYDROcodone/ACETAMINOPHEN) PO PRN ×4 (01:05→20:04)
[2022-11-28] MEDS: LEVOTHYROXINE 150MCG TABLET (0.15MG) PO SCH (05:06)
[2022-11-28 05:07] VITALS: BP 123/88; TEMP 98.4; O2SAT 95
[2022-11-28 06:33] LABS: HEMATOCRIT 33.8 % (36.0-47.0); HEMOGLOBIN 10.1 g/dl (12.0-15.5); MEAN CORPUSCULAR HGB CONC 29.9 g/dl (32.0-36.5); MEAN CORPUSCULAR VOLUME 87.1 fl (80.0-96.0); PLATELET COUNT, AUTOMATED 105 10^3/uL (150-450); RED BLOOD COUNT 3.88 10^6/uL (4.00-5.40)
[2022-11-28 07:04] LABS: ALBUMIN 3.6 G/DL (3.2-5.2); BILIRUBIN,TOTAL 0.3 MG/DL (0.3-1.2); CALCIUM LEVEL 8.4 MG/DL (8.5-10.1); CREATININE FOR GFR 1.58 MG/DL (0.55-1.30); GLOMERULAR FILTRATION RATE 38.6 (>58); MAGNESIUM LEVEL 1.8 MG/DL (1.8-2.4); POTASSIUM SERUM 3.8 MMOL/L (3.5-5.1); TOTAL PROTEIN 6.7 G/DL (5.7-8.2)
[2022-11-28 07:12] LABS: ANISOCYTOSIS 4+; BASOPHILS 2 % (0-1); EOSINOPHILS 3 % (0-3); HYPOCHROMASIA 2+; LYMPHOCYTES 40 % (16-44); MONOCYTES 4 % (0-5); NEUTROPHILS 51 % (28-66); PLATELET ESTIMATE NORMAL (NORMAL)
[2022-11-28 07:13] LABS: OVALOCYTES 2+
[2022-11-28] MEDS: METHADONE 10MG TAB PO SCH (08:28)
[2022-11-28] MEDS: VENLAFAXINE **XR** 75MG CAPSULE PO SCH ×2 (08:29)
[2022-11-28] MEDS: GABAPENTIN 400MG CAP PO SCH ×3 (08:32→20:04)
[2022-11-28] MEDS: TOPIRAMATE (TopAMAX) 25 MG TAB PO SCH (08:33)
[2022-11-28] MEDS: AMOXICILLIN 875 MG TAB PO SCH ×2 (08:34→20:04)
[2022-11-28] MEDS: DOXYCYCLINE HYCLATE 100MG TABLET PO SCH ×2 (08:35→20:04)
[2022-11-28 10:47] VITALS: BP 123/88; TEMP 98.4; O2SAT 95
[2022-11-28] MEDS: hydrOXYzine 50 MG TAB PO PRN ×2 (13:53→20:04)
[2022-11-28] MEDS: RIVAROXABAN 10MG TAB (XARELTO) PO SCH (16:38)
[2022-11-28] MEDS: PRAZOSIN 1 MG CAP PO SCH (20:05)
[2022-11-28] MEDS: traZODone 50 MG TAB PO SCH (20:05)
[2022-11-29] MEDS: NORCO, ANEXSIA 5/325MG TABLET (HYDROcodone/ACETAMINOPHEN) PO PRN ×4 (03:40→23:07)
[2022-11-29 06:00] VITALS: BP 112/75; TEMP 97.5; O2SAT 96
[2022-11-29] MEDS: LEVOTHYROXINE 150MCG TABLET (0.15MG) PO SCH (06:41)
[2022-11-29 06:44] LABS: BASO # 0.1 10^3/uL (0.0-0.2); BASO % 1.5 % (0.0-1.0); EOS # 0.1 10^3/uL (0.0-0.5); EOS % 3.9 % (0.0-3.0); HEMOGLOBIN 9.9 g/dl (12.0-15.5); LYMPH # 1.3 10^3/uL (1.5-5.0); LYMPH % 38.5 % (24.0-44.0); MEAN CORPUSCULAR HEMOGLOBIN 26.4 pg (27.0-33.0); MONO # 0.4 10^3/uL (0.0-0.8); NEUTROPHILS # 1.5 10^3/uL (1.5-8.5); NEUTROPHILS % 44.5 % (36.0-66.0); PLATELET COUNT, AUTOMATED 110 10^3/uL (150-450); RED BLOOD COUNT 3.75 10^6/uL (4.00-5.40); WHITE BLOOD COUNT 3.4 10^3/uL (4.0-10.0)
[2022-11-29 07:13] LABS: ALBUMIN 3.5 G/DL (3.2-5.2); BILIRUBIN,TOTAL 0.2 MG/DL (0.3-1.2); CALCIUM LEVEL 9.1 MG/DL (8.5-10.1); CREATININE FOR GFR 1.63 MG/DL (0.55-1.30); GLOMERULAR FILTRATION RATE 37.2 (>58); MAGNESIUM LEVEL 1.9 MG/DL (1.8-2.4); POTASSIUM SERUM 3.8 MMOL/L (3.5-5.1); TOTAL PROTEIN 6.7 G/DL (5.7-8.2)
[2022-11-29] MEDS: AMOXICILLIN 875 MG TAB PO SCH ×2 (08:42→21:19)
[2022-11-29] MEDS: GABAPENTIN 400MG CAP PO SCH ×3 (08:42→21:18)
[2022-11-29] MEDS: METHADONE 10MG TAB PO SCH (08:42)
[2022-11-29] MEDS: VENLAFAXINE **XR** 75MG CAPSULE PO SCH ×2 (08:42)
[2022-11-29] MEDS: DOXYCYCLINE HYCLATE 100MG TABLET PO SCH ×2 (08:42→21:19)
[2022-11-29] MEDS: TOPIRAMATE (TopAMAX) 25 MG TAB PO SCH (08:42)
[2022-11-29] MEDS: hydrOXYzine 50 MG TAB PO PRN ×2 (10:42→21:19)
[2022-11-29] MEDS: RIVAROXABAN 10MG TAB (XARELTO) PO SCH (17:03)
[2022-11-29] MEDS: traZODone 50 MG TAB PO SCH (21:19)
[2022-11-29] MEDS: PRAZOSIN 1 MG CAP PO SCH (21:19)
[2022-11-30] MEDS: LEVOTHYROXINE 150MCG TABLET (0.15MG) PO SCH (05:56)
[2022-11-30] MEDS: NORCO, ANEXSIA 5/325MG TABLET (HYDROcodone/ACETAMINOPHEN) PO PRN ×3 (05:57→19:57)
[2022-11-30 06:00] VITALS: BP 101/52; TEMP 96.8; O2SAT 93
[2022-11-30] MEDS: AMOXICILLIN 875 MG TAB PO SCH ×2 (08:01→19:56)
[2022-11-30] MEDS: GABAPENTIN 400MG CAP PO SCH ×3 (08:03→19:56)
[2022-11-30] MEDS: METHADONE 10MG TAB PO SCH (08:03)
[2022-11-30] MEDS: DOXYCYCLINE HYCLATE 100MG TABLET PO SCH ×2 (08:04→19:57)
[2022-11-30] MEDS: TOPIRAMATE (TopAMAX) 25 MG TAB PO SCH (08:04)
[2022-11-30] MEDS: VENLAFAXINE **XR** 75MG CAPSULE PO SCH ×2 (08:05→08:07)
[2022-11-30] MEDS: OLANZapine 2.5MG TABLET PO PRN (08:14)
[2022-11-30] MEDS: hydrOXYzine 50 MG TAB PO PRN (13:17)
[2022-11-30] MEDS: RIVAROXABAN 10MG TAB (XARELTO) PO SCH (17:09)
[2022-11-30] MEDS: traZODone 50 MG TAB PO SCH (19:57)
[2022-11-30] MEDS: PRAZOSIN 1 MG CAP PO SCH (19:59)
[2022-12-01 05:09] VITALS: BP 101/67; TEMP 97.5; O2SAT 92
[2022-12-01] MEDS: NORCO, ANEXSIA 5/325MG TABLET (HYDROcodone/ACETAMINOPHEN) PO PRN ×3 (05:33→20:47)
[2022-12-01] MEDS: LEVOTHYROXINE 150MCG TABLET (0.15MG) PO SCH (05:33)
[2022-12-01] MEDS: DOXYCYCLINE HYCLATE 100MG TABLET PO SCH ×2 (09:54→20:46)
[2022-12-01] MEDS: GABAPENTIN 400MG CAP PO SCH ×3 (09:55→20:47)
[2022-12-01] MEDS: VENLAFAXINE **XR** 75MG CAPSULE PO SCH ×2 (09:55→10:01)
[2022-12-01] MEDS: TOPIRAMATE (TopAMAX) 25 MG TAB PO SCH (09:55)
[2022-12-01] MEDS: METHADONE 10MG TAB PO SCH (09:56)
[2022-12-01] MEDS: AMOXICILLIN 875 MG TAB PO SCH ×2 (10:00→20:47)
[2022-12-01] MEDS: hydrOXYzine 50 MG TAB PO PRN ×3 (10:05→20:46)
[2022-12-01] MEDS: OLANZapine 2.5MG TABLET PO PRN (17:42)
[2022-12-01] MEDS: RIVAROXABAN 10MG TAB (XARELTO) PO SCH (17:42)
[2022-12-01] MEDS: traZODone 50 MG TAB PO SCH (20:47)
[2022-12-01 20:49] VITALS: BP 121/77
[2022-12-01] MEDS: PRAZOSIN 1 MG CAP PO SCH (20:49)
[2022-12-02] MEDS: NORCO, ANEXSIA 5/325MG TABLET (HYDROcodone/ACETAMINOPHEN) PO PRN ×3 (04:03→14:09)
[2022-12-02] MEDS: LEVOTHYROXINE 150MCG TABLET (0.15MG) PO SCH (05:55)
[2022-12-02 06:00] VITALS: BP 109/68; TEMP 97.2; O2SAT 98
[2022-12-02] MEDS: hydrOXYzine 50 MG TAB PO PRN ×2 (08:49→14:09)
[2022-12-02] MEDS: METHADONE 10MG TAB PO SCH (08:49)
[2022-12-02] MEDS: AMOXICILLIN 875 MG TAB PO SCH (08:49)
[2022-12-02] MEDS: VENLAFAXINE **XR** 75MG CAPSULE PO SCH ×2 (08:51→08:52)
[2022-12-02] MEDS: TOPIRAMATE (TopAMAX) 25 MG TAB PO SCH (08:52)
[2022-12-02] MEDS: DOXYCYCLINE HYCLATE 100MG TABLET PO SCH (08:53)
[2022-12-02] MEDS: GABAPENTIN 400MG CAP PO SCH (08:53)
[2022-12-02] MEDS ORDERED: OMEP-173 PO (11:34)
[2022-12-02] MEDS ORDERED: ASPI-312 PO (11:34)
[2022-12-02] MEDS ORDERED: AMOX875T PO (11:34)
[2022-12-02] MEDS ORDERED: DOXY100T PO (11:34)
[2022-12-02] MEDS ORDERED: PRAZ1CAP PO (13:21)
== END 2022-12-02 14:30 | disposition home or self-care (01) | DRG 383 ==
LOC: M ED 13:45 → M ED INP 17:12 → M MS5PR 21:22
PROVIDERS: ADMIT Internal Medicine; ATTEND Internal Medicine
DX: L03.116 Cellulitis of left lower limb (principal); D61.818 Other pancytopenia; Z93.0 Tracheostomy status; R45.851 Suicidal ideations; J38.6 Stenosis of larynx; F25.9 Schizoaffective disorder, unspecified; E66.01 Morbid (severe) obesity due to excess calories; Z68.42 Body mass index [BMI] 45.0-49.9, adult; S92.325A Nondisplaced fracture of second metatarsal bone, left foot, initial encounter for closed fracture; S93.106A Unspecified dislocation of unspecified toe(s), initial encounter; S92.335A Nondisplaced fracture of third metatarsal bone, left foot, initial encounter for closed fracture; S92.342A Displaced fracture of fourth metatarsal bone, left foot, initial encounter for closed fracture; F41.1 Generalized anxiety disorder; S91.115A Laceration without foreign body of left lesser toe(s) without damage to nail, initial encounter; R29.6 Repeated falls; F32.A Depression, unspecified; F60.3 Borderline personality disorder; F11.21 Opioid dependence, in remission; J45.909 Unspecified asthma, uncomplicated; E03.9 Hypothyroidism, unspecified; G47.33 Obstructive sleep apnea (adult) (pediatric); N18.9 Chronic kidney disease, unspecified; G47.00 Insomnia, unspecified; Z79.82 Long term (current) use of aspirin; Z79.890 Hormone replacement therapy; Z79.899 Other long term (current) drug therapy; W19.XXXA Unspecified fall, initial encounter; Y92.009 Unspecified place in unspecified non-institutional (private) residence as the place of occurrence of the external cause; Y93.89 Activity, other specified; Y99.8 Other external cause status

== ENCOUNTER 2023-01-03 13:31 | Emergency (ER) | payer MEDICAID, OTHER ==
[~2023-01-03] VITALS: Ht 160 cm; Wt 119.2 kg
[~2023-01-03 13:31] MED LIST changes: +AMOX875T PO; +ASPI-312 PO; +PRAZ1CAP PO
[2023-01-03 13:44] VITALS: BP 129/83; TEMP 99.1; O2SAT 91
== END 2023-01-03 14:07 | disposition home or self-care (01) ==
LOC: EDBD 13:31 → M ED 13:31
DX: T17.990A Other foreign object in respiratory tract, part unspecified in causing asphyxiation, initial encounter (principal); Y92.89 Other specified places as the place of occurrence of the external cause; Z93.0 Tracheostomy status; J45.909 Unspecified asthma, uncomplicated; F25.9 Schizoaffective disorder, unspecified; F17.200 Nicotine dependence, unspecified, uncomplicated; Z79.899 Other long term (current) drug therapy

== ENCOUNTER → 2023-01-16 | Outpatient (CLI) | payer OTHER ==
[~2023-01-16] MED LIST changes: -CEFD300C41 PO; +CEFD300C42 PO
[2023-01-16 10:06] LABS: BASO % 0.9 % (0.0-1.0); EOS # 0.3 10^3/uL (0.0-0.5); EOS % 5.4 % (0.0-3.0); HEMOGLOBIN 9.7 g/dl (12.0-15.5); LYMPH % 21.2 % (24.0-44.0); MEAN CORPUSCULAR HEMOGLOBIN 26.4 pg (27.0-33.0); MEAN CORPUSCULAR HGB CONC 29.4 g/dl (32.0-36.5); MEAN CORPUSCULAR VOLUME 89.9 fl (80.0-96.0); MONO # 0.2 10^3/uL (0.0-0.8); MONO % 4.5 % (2.0-8.0); NEUTROPHILS # 3.1 10^3/uL (1.5-8.5); NEUTROPHILS % 67.6 % (36.0-66.0); PLATELET COUNT, AUTOMATED 119 10^3/uL (150-450); RED BLOOD COUNT 3.67 10^6/uL (4.00-5.40); WHITE BLOOD COUNT 4.6 10^3/uL (4.0-10.0)
[2023-01-16 10:31] LABS: ALBUMIN 3.7 G/DL (3.2-5.2); ALKALINE PHOSPHATASE 135 U/L (46-116); ALT/SGPT 13 U/L (7.0-40); AST/SGOT 17 U/L (<34); BILIRUBIN,DIRECT < 0.1 MG/DL (<0.4); BILIRUBIN,TOTAL 0.2 MG/DL (0.3-1.2); BLOOD UREA NITROGEN 8 MG/DL (9-23); CALCIUM LEVEL 7.8 MG/DL (8.5-10.1); CARBON DIOXIDE LEVEL 30 MMOL/L (20-31); CHLORIDE LEVEL 106 MMOL/L (98-107); CHOLESTEROL LEVEL 242 MG/DL (<200); CHOLESTEROL RISK RATIO 4.77 (<5); CREATININE FOR GFR 1.58 MG/DL (0.55-1.30); GLOMERULAR FILTRATION RATE 38.6 (>58); GLUCOSE, FASTING 110 MG/DL (60-100); HDL CHOLESTEROL 50.7 MG/DL (>40); LDL CHOLESTEROL 156.7 MG/DL (<100); NON-HDL-C 191.3 MG/DL; SODIUM LEVEL 141 MMOL/L (136-145); TOTAL PROTEIN 6.8 G/DL (5.7-8.2); TRIGLYCERIDES LEVEL 173 MG/DL (<150)
[2023-01-16 10:33] LABS: TOTAL 25(OH) VITAMIN D 4.7 NG/ML (20.0-100.0)
[2023-01-16 10:37] LABS: THYROID STIMULATING HORMONE > 150.000 uIU/ML (0.55-4.78)
== END ==
LOC: M LAB 09:32
PROVIDERS: ATTEND Registered Nurse Psychiatric/Mental Health
DX: Z79.899 Other long term (current) drug therapy (principal)

== ENCOUNTER 2023-01-24 13:42 | Inpatient (IN) | payer OTHER ==
[~2023-01-24] VITALS: Ht 160 cm; Wt 120.4 kg
[2023-01-24] MEDS ORDERED: IPRATROPIUM 0.5MG/ALBUTEROL 2.5MG INH SOL UD 3ML (DUONEB) NEB ONE (14:10)
[2023-01-24] MEDS ORDERED: methylPREDNISolone 125MG 2ML VIAL IV ONE (14:10)
[2023-01-24] MEDS ORDERED: ALBUTEROL SULFATE 2.5MG/0.5ML INH NEB SOLN NEB ONE (14:10)
[2023-01-24 15:01] LABS: BASO # 0.1 10^3/uL (0.0-0.2); BASO % 0.8 % (0.0-1.0); EOS # 0.2 10^3/uL (0.0-0.5); EOS % 2.8 % (0.0-3.0); LYMPH # 0.8 10^3/uL (1.5-5.0); LYMPH % 13.9 % (24.0-44.0); MEAN CORPUSCULAR HEMOGLOBIN 26.9 pg (27.0-33.0); MEAN CORPUSCULAR HGB CONC 31.3 g/dl (32.0-36.5); MONO # 0.4 10^3/uL (0.0-0.8); NEUTROPHILS # 4.5 10^3/uL (1.5-8.5); NEUTROPHILS % 74.8 % (36.0-66.0); PLATELET COUNT, AUTOMATED 125 10^3/uL (150-450); RED BLOOD COUNT 3.72 10^6/uL (4.00-5.40)
[2023-01-24 15:12] LABS: ABG BASE EXCESS -0.3 (-2.0-2.0); ABG HCO3 25.6 MMOL/L (22.0-26.0); ABG O2 SATURATION 93.6 % (95.0-99.0); ABG PARTIAL PRESSURE CO2 47.7 mmHg (35.0-45.0); ABG PARTIAL PRESSURE O2 73.2 mmHg (75.0-100.0); ABG STANDARD HCO3 24.2 MMOL/L. (22.0-26.0); ABG TOTAL CO2 27.1 MMOL/L (22.0-29.0); ABG pH (ARTERIAL) 7.348 UNITS (7.350-7.450)
[2023-01-24] MEDS ORDERED: NALOXONE INJ 0.4MG/1ML VIAL IV STA (15:43)
[2023-01-24] MEDS ORDERED: CHARCOAL ACTIVATED LIQUID 25GM/120ML BTL PO ONE (17:40)
[2023-01-24 18:31] VITALS: O2SAT 94
[2023-01-24 18:35] LABS: ABG BASE EXCESS -0.6 (-2.0-2.0); ABG HCO3 25.1 MMOL/L (22.0-26.0); ABG O2 SATURATION 92.4 % (95.0-99.0); ABG PARTIAL PRESSURE CO2 45.9 mmHg (35.0-45.0); ABG PARTIAL PRESSURE O2 67.9 mmHg (75.0-100.0); ABG STANDARD HCO3 23.9 MMOL/L. (22.0-26.0); ABG TOTAL CO2 26.5 MMOL/L (22.0-29.0); ABG pH (ARTERIAL) 7.356 UNITS (7.350-7.450)
[2023-01-24 19:00] LABS: APPEARANCE, URINE CLEAR (CLEAR); BACTERIA, URINE AUTO NEGATIVE (NEGATIVE); BILIRUBIN, URINE AUTO NEGATIVE (NEGATIVE); BLOOD, URINE BLOOD NEGATIVE (NEGATIVE); COLOR, URINE YELLOW (YELLOW); GLUCOSE, URINE (UA) AUTO NEGATIVE (NEGATIVE); KETONE, URINE AUTO NEGATIVE (NEGATIVE); LEUKOCYTE ESTERASE, URINE AUTO TRACE (NEGATIVE); NITRITE, URINE AUTO NEGATIVE (NEGATIVE); PROTEIN, URINE AUTO NEGATIVE (NEGATIVE); RBC, URINE AUTO 0 /HPF (0-3); SPECIFIC GRAVITY URINE AUTO 1.006 (1.002-1.035); SQUAMOUS EPITHELIAL CELL UR AU 0 /HPF (0-6); UROBILINOGEN, URINE AUTO 0.2 mg/dL (0.0-2.0); WBC, URINE AUTO 0 /HPF (0-3)
[2023-01-24 20:35] LABS: ABG BASE EXCESS -1.3 (-2.0-2.0); ABG HCO3 25.2 MMOL/L (22.0-26.0); ABG O2 SATURATION 96.8 % (95.0-99.0); ABG PARTIAL PRESSURE CO2 50.6 mmHg (35.0-45.0); ABG PARTIAL PRESSURE O2 93.6 mmHg (75.0-100.0); ABG STANDARD HCO3 23.4 MMOL/L. (22.0-26.0); ABG TOTAL CO2 26.7 MMOL/L (22.0-29.0); ABG pH (ARTERIAL) 7.315 UNITS (7.350-7.450)
[2023-01-24] MEDS ORDERED: PRAZ1CAP PO (23:08)
[2023-01-24] MEDS ORDERED: HOME MED LIST COMPLETE! XX SCH (23:10)
[2023-01-25] VITALS (7 sets, daily range): BP systolic 120–161; BP diastolic 75–99; TEMP 96.5–97.5; O2SAT 93–97
[2023-01-25] MEDS ORDERED: IPRATROPIUM 0.5MG/ALBUTEROL 2.5MG INH SOL UD 3ML (DUONEB) NEB PRN (00:30)
[2023-01-25 00:49] LABS: ABG BASE EXCESS -1.1 (-2.0-2.0); ABG HCO3 24.2 MMOL/L (22.0-26.0); ABG O2 SATURATION 98.6 % (95.0-99.0); ABG PARTIAL PRESSURE O2 134.9 mmHg (75.0-100.0); ABG STANDARD HCO3 23.6 MMOL/L. (22.0-26.0); ABG TOTAL CO2 25.6 MMOL/L (22.0-29.0); ABG pH (ARTERIAL) 7.369 UNITS (7.350-7.450)
[2023-01-25] MEDS ORDERED: CALCIUM GLUCONATE 1,000 MG in D5W MINI-BAG PLUS 100 ML IV ONE (02:00)
[2023-01-25 04:18] LABS: ABG O2 SATURATION 94.6 % (95.0-99.0); ABG PARTIAL PRESSURE CO2 47.4 mmHg (35.0-45.0); ABG PARTIAL PRESSURE O2 81.5 mmHg (75.0-100.0); ABG STANDARD HCO3 23.6 MMOL/L. (22.0-26.0); ABG TOTAL CO2 26.5 MMOL/L (22.0-29.0)
[2023-01-25] MEDS ORDERED: ACETAMINOPHEN TAB 650MG DOSE (2X325MG) PO ONE (05:00)
[2023-01-25 07:28] LABS: HEMATOCRIT 31.5 % (36.0-47.0); HEMOGLOBIN 9.7 g/dl (12.0-15.5); MEAN CORPUSCULAR HEMOGLOBIN 26.7 pg (27.0-33.0); MEAN CORPUSCULAR HGB CONC 30.8 g/dl (32.0-36.5); MEAN CORPUSCULAR VOLUME 86.8 fl (80.0-96.0); PLATELET COUNT, AUTOMATED 137 10^3/uL (150-450); RED BLOOD COUNT 3.63 10^6/uL (4.00-5.40); WHITE BLOOD COUNT 5.1 10^3/uL (4.0-10.0)
[2023-01-25] MEDS ORDERED: POTASSIUM CHLORIDE 10MEQ SR TABLET PO ONE (08:00)
[2023-01-25] MEDS ORDERED: HEPARIN SOD (PORCINE) 5000UNITS/ML 1ML VIAL/SYRINGE SQ SCH (09:00)
[2023-01-25] MEDS ORDERED: INFLUENZA QUADRIVALENT PF VACCINE 0.5ML SYRINGE IM.IMMUN ONE (09:00)
[2023-01-25 09:12] LABS: ABG BASE EXCESS 1.6 (-2.0-2.0); ABG HCO3 27.3 MMOL/L (22.0-26.0); ABG O2 SATURATION 95.4 % (95.0-99.0); ABG PARTIAL PRESSURE CO2 47.5 mmHg (35.0-45.0); ABG PARTIAL PRESSURE O2 80.5 mmHg (75.0-100.0); ABG STANDARD HCO3 25.9 MMOL/L. (22.0-26.0); ABG TOTAL CO2 28.7 MMOL/L (22.0-29.0); ABG pH (ARTERIAL) 7.377 UNITS (7.350-7.450)
[2023-01-25] MEDS: METHADONE 10MG TAB PO SCH (09:59)
[2023-01-25] MEDS: METHADONE 5MG TAB PO SCH (10:00)
[2023-01-25] MEDS ORDERED: LEVO175T2 PO (10:44)
[2023-01-25] MEDS ORDERED: PRAZ5CAP PO (10:44)
[2023-01-25] MEDS ORDERED: HYDR50TA70 PO (10:44)
[2023-01-25] MEDS ORDERED: GABA800T4 PO (10:44)
[2023-01-25] MEDS ORDERED: OMEP-173 PO (10:44)
[2023-01-25] MEDS ORDERED: ASPIRIN PO (10:52)
[2023-01-25 11:10] LABS: SALICYLATE LEVEL 32.9 MG/DL (2.0-20.0)
[2023-01-25 11:12] LABS: AMPHETAMINES LEVEL URINE NEGATIVE (NEGATIVE); BARBITURATES URINE NEGATIVE (NEGATIVE); BENZODIAZEPINES URINE NEGATIVE (NEGATIVE); CANNABINOIDS URINE NEGATIVE (NEGATIVE); COCAINE METABOLITE URINE NEGATIVE (NEGATIVE); OPIATES URINE NEGATIVE (NEGATIVE); PHENCYCLIDINE URINE NEGATIVE (NEGATIVE)
[2023-01-25 11:17] LABS: FREE T4 < 0.10 NG/DL (0.93-1.70)
[2023-01-25 11:18] LABS: SALICYLATE LEVEL 34.7 MG/DL (2.0-20.0)
[2023-01-25 11:19] LABS: ALBUMIN 4.5 G/DL (3.9-5.0); ALKALINE PHOSPHATASE 128 U/L (35-104); ALT/SGPT 10 U/L (1-33); AST/SGOT 19 U/L (5-40); BILIRUBIN,DIRECT < 0.2 MG/DL (0.1-0.4); BILIRUBIN,TOTAL < 0.7 MG/DL (0.2-1.3)
[2023-01-25 11:24] LABS: BLOOD UREA NITROGEN 5 MG/DL (7-21); GLUCOSE, FASTING 130 MG/DL (70-99)
[2023-01-25 11:25] LABS: CALCIUM LEVEL 6.7 MG/DL (8.4-10.2); CARBON DIOXIDE LEVEL 19 MEQ/L (22-30); CHLORIDE LEVEL 110 MEQ/L (98-107); CREATININE FOR GFR 1.3 MG/DL (0.7-1.5); POTASSIUM SERUM 3.2 MEQ/L (3.6-5.0); SODIUM LEVEL 142 MEQ/L (134-153)
[2023-01-25 11:26] LABS: SALICYLATE LEVEL 21.5 MG/DL (2.0-20.0)
[2023-01-25 13:51] LABS: CREATININE FOR GFR 1.5 MG/DL (0.7-1.5); GLOMERULAR FILTRATION RATE 40.9 (>58); SALICYLATE LEVEL 23.9 MG/DL (2.0-20.0)
[2023-01-25 13:52] LABS: CALCIUM LEVEL 8.5 MG/DL (8.4-10.2); POTASSIUM SERUM 3.7 MEQ/L (3.6-5.0)
[2023-01-25] MEDS ORDERED: GABAPENTIN 400MG CAP PO ONE (16:50)
[2023-01-25] MEDS: GABAPENTIN 300 MG CAP PO SCH ×2 (17:29→21:06)
[2023-01-25] MEDS ORDERED: GABAPENTIN 400MG CAP PO SCH (21:00)
[2023-01-25] MEDS: HEPARIN SOD (PORCINE) 5000UNITS/ML 1ML VIAL/SYRINGE SQ SCH (21:06)
[2023-01-25] MEDS: PRAZOSIN 1 MG CAP PO SCH (21:07)
[2023-01-25] MEDS: CHLORASEPTIC SPRAY MT PRN ×2 (21:12→23:14)
[2023-01-26] VITALS (7 sets, daily range): BP systolic 112–155; BP diastolic 53–96; TEMP 96–97.5; O2SAT 92–98
[2023-01-26] MEDS: MAGIC MOUTHWASH SUSPENSION BTL SS PRN ×5 (00:10→21:23)
[2023-01-26] MEDS: ACETAMINOPHEN TAB 650MG DOSE (2X325MG) PO PRN ×4 (04:17→17:14)
[2023-01-26] MEDS: HEPARIN SOD (PORCINE) 5000UNITS/ML 1ML VIAL/SYRINGE SQ SCH ×3 (06:03→21:23)
[2023-01-26] MEDS: LEVOTHYROXINE 75MCG TABLET (0.075MG) PO SCH (07:01)
[2023-01-26] MEDS: LEVOTHYROXINE 100MCG TABLET (0.1MG) PO SCH (07:02)
[2023-01-26] MEDS: CHLORASEPTIC SPRAY MT PRN ×3 (07:28→21:27)
[2023-01-26 08:17] LABS: HEMATOCRIT 33.2 % (36.0-47.0); HEMOGLOBIN 9.7 g/dl (12.0-15.5); MEAN CORPUSCULAR HEMOGLOBIN 26.1 pg (27.0-33.0); MEAN CORPUSCULAR HGB CONC 29.2 g/dl (32.0-36.5); MEAN CORPUSCULAR VOLUME 89.5 fl (80.0-96.0); PLATELET COUNT, AUTOMATED 116 10^3/uL (150-450); RED BLOOD COUNT 3.71 10^6/uL (4.00-5.40); WHITE BLOOD COUNT 3.7 10^3/uL (4.0-10.0)
[2023-01-26] MEDS: GABAPENTIN 300 MG CAP PO SCH ×3 (09:49→21:23)
[2023-01-26] MEDS: METHADONE 10MG TAB PO SCH (09:50)
[2023-01-26] MEDS: METHADONE 5MG TAB PO SCH (09:50)
[2023-01-26 13:52] LABS: CREATININE FOR GFR 1.4 MG/DL (0.7-1.5); GLOMERULAR FILTRATION RATE 44.3 (>58)
[2023-01-26 13:53] LABS: CALCIUM LEVEL 8.2 MG/DL (8.4-10.2); POTASSIUM SERUM 3.5 MEQ/L (3.6-5.0)
[2023-01-26] MEDS ORDERED: POTASSIUM CHLORIDE 10MEQ SR TABLET PO ONE (14:15)
[2023-01-26] MEDS ORDERED: cefTRIAXone SOD 1 GM in D5W MINI-BAG PLUS 50 ML IV SCH (15:00)
[2023-01-26 15:37] LABS: BLOOD UREA NITROGEN 6 MG/DL (7-21); CALCIUM LEVEL 8.8 MG/DL (8.4-10.2); CARBON DIOXIDE LEVEL 29 MEQ/L (22-30); CHLORIDE LEVEL 99 MEQ/L (98-107); CREATININE FOR GFR 1.6 MG/DL (0.7-1.5); GLUCOSE, FASTING 99 MG/DL (70-99); POTASSIUM SERUM 3.6 MEQ/L (3.6-5.0); SALICYLATE LEVEL 22.2 MG/DL (2.0-20.0); SODIUM LEVEL 139 MEQ/L (134-153)
[2023-01-26 15:38] LABS: ALBUMIN 4.5 G/DL (3.9-5.0); ALKALINE PHOSPHATASE 128 U/L (35-104); ALT/SGPT 10 U/L (1-33); AST/SGOT 20 U/L (5-40); BILIRUBIN,TOTAL < 0.7 MG/DL (0.2-1.3); TOTAL PROTEIN 7.2 G/DL (6.3-8.2)
[2023-01-26] MEDS: predniSONE 20 MG TAB PO SCH (15:39)
[2023-01-26 15:42] LABS: SALICYLATE LEVEL 19.6 MG/DL (2.0-20.0)
[2023-01-26 15:43] LABS: BLOOD UREA NITROGEN 6 MG/DL (7-21); CALCIUM LEVEL 8.7 MG/DL (8.4-10.2); CARBON DIOXIDE LEVEL 28 MEQ/L (22-30); CHLORIDE LEVEL 100 MEQ/L (98-107); CREATININE FOR GFR 1.6 MG/DL (0.7-1.5); GLUCOSE, FASTING 86 MG/DL (70-99); POTASSIUM SERUM 3.3 MEQ/L (3.6-5.0); SODIUM LEVEL 141 MEQ/L (134-153)
[2023-01-26] MEDS ORDERED: AZITHROMYCIN 250MG TABLET PO SCH (18:00)
[2023-01-26] MEDS ORDERED: OMEPRAZOLE 20MG CAP PO SCH (21:00)
[2023-01-26] MEDS: PRAZOSIN 1 MG CAP PO SCH (21:35)
[2023-01-27] MEDS: ACETAMINOPHEN TAB 650MG DOSE (2X325MG) PO PRN (00:28)
[2023-01-27] MEDS: CHLORASEPTIC SPRAY MT PRN ×4 (00:29→14:02)
[2023-01-27 00:30] LABS: PROCALCITONIN <0.04 ng/ml
[2023-01-27] MEDS: MAGIC MOUTHWASH SUSPENSION BTL SS PRN ×3 (02:53→12:16)
[2023-01-27 03:37] VITALS: BP 116/74; TEMP 96.7; O2SAT 94
[2023-01-27] MEDS: LEVOTHYROXINE 100MCG TABLET (0.1MG) PO SCH (05:44)
[2023-01-27] MEDS: LEVOTHYROXINE 75MCG TABLET (0.075MG) PO SCH (05:44)
[2023-01-27] MEDS: HEPARIN SOD (PORCINE) 5000UNITS/ML 1ML VIAL/SYRINGE SQ SCH (05:45)
[2023-01-27 06:32] LABS: BASO % 0.2 % (0.0-1.0); EOS % 0.2 % (0.0-3.0); HEMATOCRIT 32.2 % (36.0-47.0); HEMOGLOBIN 9.7 g/dl (12.0-15.5); LYMPH # 0.6 10^3/uL (1.5-5.0); LYMPH % 15.2 % (24.0-44.0); MEAN CORPUSCULAR HEMOGLOBIN 26.6 pg (27.0-33.0); MEAN CORPUSCULAR HGB CONC 30.1 g/dl (32.0-36.5); MEAN CORPUSCULAR VOLUME 88.5 fl (80.0-96.0); MONO # 0.3 10^3/uL (0.0-0.8); MONO % 6.3 % (2.0-8.0); NEUTROPHILS # 3.2 10^3/uL (1.5-8.5); NEUTROPHILS % 76.9 % (36.0-66.0); PLATELET COUNT, AUTOMATED 127 10^3/uL (150-450); RED BLOOD COUNT 3.64 10^6/uL (4.00-5.40); WHITE BLOOD COUNT 4.2 10^3/uL (4.0-10.0)
[2023-01-27 06:59] LABS: CALCIUM LEVEL 8.2 MG/DL (8.5-10.1); CREATININE FOR GFR 1.19 MG/DL (0.55-1.30); GLOMERULAR FILTRATION RATE 53.5 (>58)
[2023-01-27 07:30] VITALS: BP 132/80; TEMP 97.4; O2SAT 94
[2023-01-27] MEDS: predniSONE 20 MG TAB PO SCH (08:47)
[2023-01-27] MEDS: GABAPENTIN 300 MG CAP PO SCH (08:47)
[2023-01-27 08:53] LABS: C REACTIVE PROTEIN QUANTITATIV 26.62 MG/L (1.00-3.00)
[2023-01-27] MEDS: METHADONE 5MG TAB PO SCH (10:17)
[2023-01-27] MEDS: METHADONE 10MG TAB PO SCH (10:18)
[2023-01-27 12:26] VITALS: BP 136/88; TEMP 98.2; O2SAT 96
[2023-01-27 15:41] VITALS: BP 127/62; TEMP 97.4; O2SAT 97
== END 2023-01-27 15:06 | DRG 812 ==
LOC: M ED 13:42 → M ED INP 23:21 → ENRESERV 01-25 01:29 → M PCU 01-25 02:19 → OBSVTOIN 01-26 09:39
PROVIDERS: ADMIT Internal Medicine; ATTEND Internal Medicine
DX: T39.094A Poisoning by salicylates, undetermined, initial encounter (principal); J96.01 Acute respiratory failure with hypoxia; G92.8 Other toxic encephalopathy; J18.9 Pneumonia, unspecified organism; Z93.0 Tracheostomy status; J38.00 Paralysis of vocal cords and larynx, unspecified; J38.6 Stenosis of larynx; R45.851 Suicidal ideations; F25.9 Schizoaffective disorder, unspecified; E66.01 Morbid (severe) obesity due to excess calories; Z68.42 Body mass index [BMI] 45.0-49.9, adult; F32.A Depression, unspecified; F41.1 Generalized anxiety disorder; F60.3 Borderline personality disorder; F43.10 Post-traumatic stress disorder, unspecified; J45.909 Unspecified asthma, uncomplicated; E03.9 Hypothyroidism, unspecified; D64.9 Anemia, unspecified; G47.33 Obstructive sleep apnea (adult) (pediatric); Z86.14 Personal history of Methicillin resistant Staphylococcus aureus infection; N18.9 Chronic kidney disease, unspecified; G47.00 Insomnia, unspecified; Z79.899 Other long term (current) drug therapy; Z91.51 Personal history of suicidal behavior; F11.20 Opioid dependence, uncomplicated; R29.6 Repeated falls; K14.8 Other diseases of tongue; Z91.148 Patient's other noncompliance with medication regimen for other reason; T38.1X6A Underdosing of thyroid hormones and substitutes, initial encounter; D86.0 Sarcoidosis of lung; R91.8 Other nonspecific abnormal finding of lung field; M19.90 Unspecified osteoarthritis, unspecified site; R53.1 Weakness

== ENCOUNTER 2023-01-27 13:09 | Inpatient (IN) | payer OTHER ==
[~2023-01-27] VITALS: Ht 160 cm; Wt 118.4 kg
[~2023-01-27 13:09] MED LIST changes: +ASPIRIN PO
[2023-01-27 16:26] VITALS: BP 143/82; TEMP 97.2; O2SAT 95
[2023-01-27] MEDS: AZITHROMYCIN 250MG TABLET PO SCH (18:05)
[2023-01-27] MEDS ORDERED: MOM 30ML SUSPENSION UDC PO PRN (18:05)
[2023-01-27] MEDS ORDERED: MAALOX 30 ML SUSP *UDC PO PRN (18:05)
[2023-01-27] MEDS ORDERED: IPRATROPIUM 0.5MG/ALBUTEROL 2.5MG INH SOL UD 3ML (DUONEB) NEB PRN (18:05)
[2023-01-27] MEDS: GABAPENTIN 300 MG CAP PO SCH (20:19)
[2023-01-27] MEDS: hydrOXYzine 50 MG TAB PO PRN (20:19)
[2023-01-27] MEDS: CEFDINIR 300 MG CAP (OMNICEF) PO SCH (20:19)
[2023-01-27] MEDS: ACETAMINOPHEN TAB 650MG DOSE (2X325MG) PO PRN (20:19)
[2023-01-27] MEDS: CHLORASEPTIC SPRAY MT PRN ×2 (20:20→23:27)
[2023-01-27] MEDS: MAGIC MOUTHWASH SUSPENSION BTL SS PRN (20:20)
[2023-01-27] MEDS ORDERED: PRAZOSIN 1 MG CAP PO SCH (21:00)
[2023-01-28] MEDS: MAGIC MOUTHWASH SUSPENSION BTL SS PRN ×5 (00:51→23:18)
[2023-01-28] MEDS: CHLORASEPTIC SPRAY MT PRN ×4 (04:18→20:15)
[2023-01-28] MEDS: ACETAMINOPHEN TAB 650MG DOSE (2X325MG) PO PRN ×3 (04:18→20:16)
[2023-01-28] MEDS: LEVOTHYROXINE 75MCG TABLET (0.075MG) PO SCH (05:34)
[2023-01-28] MEDS: LEVOTHYROXINE 100MCG TABLET (0.1MG) PO SCH (05:34)
[2023-01-28 06:35] VITALS: BP 113/69; TEMP 98.2; O2SAT 100
[2023-01-28] MEDS: OMEPRAZOLE 20MG CAP PO SCH (08:40)
[2023-01-28] MEDS: CEFDINIR 300 MG CAP (OMNICEF) PO SCH ×2 (08:41→20:16)
[2023-01-28] MEDS: predniSONE 20 MG TAB PO SCH (08:41)
[2023-01-28] MEDS: GABAPENTIN 300 MG CAP PO SCH ×3 (08:41→20:16)
[2023-01-28] MEDS: METHADONE 10MG TAB PO SCH (08:41)
[2023-01-28] MEDS: VENLAFAXINE **XR** 75MG CAPSULE PO SCH (12:22)
[2023-01-28] MEDS: hydrOXYzine 50 MG TAB PO PRN (15:39)
[2023-01-28 16:28] VITALS: BP 148/84; TEMP 98.7; O2SAT 96
[2023-01-28] MEDS: AZITHROMYCIN 250MG TABLET PO SCH (17:41)
[2023-01-28] MEDS: PRAZOSIN 1 MG CAP PO SCH (20:16)
[2023-01-28] MEDS ORDERED: OLANZapine 2.5MG TABLET PO SCH (21:00)
[2023-01-29] MEDS: hydrOXYzine 50 MG TAB PO PRN ×3 (00:26→21:02)
[2023-01-29] MEDS: CHLORASEPTIC SPRAY MT PRN ×2 (00:27→03:16)
[2023-01-29] MEDS: ACETAMINOPHEN TAB 650MG DOSE (2X325MG) PO PRN ×2 (03:16→21:03)
[2023-01-29] MEDS: LEVOTHYROXINE 100MCG TABLET (0.1MG) PO SCH (06:02)
[2023-01-29] MEDS: LEVOTHYROXINE 75MCG TABLET (0.075MG) PO SCH (06:02)
[2023-01-29 06:16] VITALS: BP 154/92; TEMP 99.1; O2SAT 95
[2023-01-29] MEDS: predniSONE 20 MG TAB PO SCH (08:41)
[2023-01-29] MEDS: GABAPENTIN 300 MG CAP PO SCH ×3 (08:41→21:02)
[2023-01-29] MEDS: CEFDINIR 300 MG CAP (OMNICEF) PO SCH ×2 (08:41→21:02)
[2023-01-29] MEDS: OMEPRAZOLE 20MG CAP PO SCH (08:41)
[2023-01-29] MEDS: MAGIC MOUTHWASH SUSPENSION BTL SS PRN ×3 (08:42→21:06)
[2023-01-29] MEDS: VENLAFAXINE **XR** 75MG CAPSULE PO SCH (08:42)
[2023-01-29] MEDS: METHADONE 10MG TAB PO SCH (08:42)
[2023-01-29] MEDS: OLANZapine 2.5MG TABLET PO SCH ×2 (10:12→21:02)
[2023-01-29] MEDS: AZITHROMYCIN 250MG TABLET PO SCH (17:20)
[2023-01-29 18:32] VITALS: BP 142/81; TEMP 97.1
[2023-01-29] MEDS: PRAZOSIN 1 MG CAP PO SCH (21:02)
[2023-01-30] MEDS: MAGIC MOUTHWASH SUSPENSION BTL SS PRN ×4 (03:27→20:05)
[2023-01-30] MEDS: ACETAMINOPHEN TAB 650MG DOSE (2X325MG) PO PRN ×3 (03:28→23:38)
[2023-01-30] MEDS: CHLORASEPTIC SPRAY MT PRN ×3 (05:35→23:37)
[2023-01-30] MEDS: LEVOTHYROXINE 100MCG TABLET (0.1MG) PO SCH (05:35)
[2023-01-30] MEDS: LEVOTHYROXINE 75MCG TABLET (0.075MG) PO SCH (05:35)
[2023-01-30] MEDS: predniSONE 20 MG TAB PO SCH (08:13)
[2023-01-30] MEDS: OMEPRAZOLE 20MG CAP PO SCH (08:13)
[2023-01-30] MEDS: OLANZapine 2.5MG TABLET PO SCH ×2 (08:13→20:03)
[2023-01-30] MEDS: GABAPENTIN 300 MG CAP PO SCH ×3 (08:13→20:03)
[2023-01-30] MEDS: VENLAFAXINE **XR** 75MG CAPSULE PO SCH (08:13)
[2023-01-30] MEDS: CEFDINIR 300 MG CAP (OMNICEF) PO SCH ×2 (08:13→20:03)
[2023-01-30] MEDS: METHADONE 10MG TAB PO SCH (08:14)
[2023-01-30] MEDS: hydrOXYzine 50 MG TAB PO PRN ×2 (12:51→20:04)
[2023-01-30 16:44] VITALS: BP 118/67; TEMP 97.9; O2SAT 93
[2023-01-30] MEDS: PRAZOSIN 1 MG CAP PO SCH (20:04)
[2023-01-31] MEDS: MAGIC MOUTHWASH SUSPENSION BTL SS PRN ×3 (02:38→21:23)
[2023-01-31] MEDS: LEVOTHYROXINE 100MCG TABLET (0.1MG) PO SCH (05:41)
[2023-01-31] MEDS: LEVOTHYROXINE 75MCG TABLET (0.075MG) PO SCH (05:41)
[2023-01-31 06:33] VITALS: BP 147/85; TEMP 97.6; O2SAT 97
[2023-01-31] MEDS: VENLAFAXINE **XR** 75MG CAPSULE PO SCH (08:04)
[2023-01-31] MEDS: CEFDINIR 300 MG CAP (OMNICEF) PO SCH ×2 (08:04→20:30)
[2023-01-31] MEDS: METHADONE 10MG TAB PO SCH (08:04)
[2023-01-31] MEDS: OMEPRAZOLE 20MG CAP PO SCH (08:04)
[2023-01-31] MEDS: OLANZapine 2.5MG TABLET PO SCH ×2 (08:04→20:30)
[2023-01-31] MEDS: GABAPENTIN 300 MG CAP PO SCH ×3 (08:04→20:30)
[2023-01-31] MEDS: hydrOXYzine 50 MG TAB PO PRN ×2 (13:15→21:24)
[2023-01-31 16:22] VITALS: BP 110/64; TEMP 97.7; O2SAT 90
[2023-01-31] MEDS: ACETAMINOPHEN TAB 650MG DOSE (2X325MG) PO PRN ×2 (16:37→22:57)
[2023-01-31 20:26] VITALS: BP 153/65
[2023-01-31] MEDS: PRAZOSIN 1 MG CAP PO SCH (20:30)
[2023-01-31] MEDS: CHLORASEPTIC SPRAY MT PRN (20:31)
[2023-02-01] MEDS: MAGIC MOUTHWASH SUSPENSION BTL SS PRN ×4 (02:52→20:32)
[2023-02-01] MEDS: LEVOTHYROXINE 100MCG TABLET (0.1MG) PO SCH (05:50)
[2023-02-01] MEDS: ACETAMINOPHEN TAB 650MG DOSE (2X325MG) PO PRN ×2 (05:50→16:26)
[2023-02-01] MEDS: LEVOTHYROXINE 75MCG TABLET (0.075MG) PO SCH (05:50)
[2023-02-01] MEDS: CHLORASEPTIC SPRAY MT PRN (05:51)
[2023-02-01 07:08] VITALS: BP 106/65; TEMP 97.7; O2SAT 95
[2023-02-01] MEDS: METHADONE 10MG TAB PO SCH (07:58)
[2023-02-01] MEDS: CEFDINIR 300 MG CAP (OMNICEF) PO SCH ×2 (07:59→20:33)
[2023-02-01] MEDS: GABAPENTIN 300 MG CAP PO SCH ×3 (07:59→20:34)
[2023-02-01] MEDS: VENLAFAXINE **XR** 75MG CAPSULE PO SCH (07:59)
[2023-02-01] MEDS: OMEPRAZOLE 20MG CAP PO SCH (07:59)
[2023-02-01] MEDS: OLANZapine 2.5MG TABLET PO SCH ×2 (08:00→20:34)
[2023-02-01] MEDS: hydrOXYzine 50 MG TAB PO PRN ×2 (13:23→21:24)
[2023-02-01 16:07] VITALS: BP 212/64; TEMP 97.7; O2SAT 96
[2023-02-01 20:34] VITALS: BP 137/85
[2023-02-01] MEDS: PRAZOSIN 1 MG CAP PO SCH (20:34)
[2023-02-02] MEDS: ACETAMINOPHEN TAB 650MG DOSE (2X325MG) PO PRN (02:01)
[2023-02-02] MEDS: MAGIC MOUTHWASH SUSPENSION BTL SS PRN ×2 (02:01→06:26)
[2023-02-02] MEDS: LEVOTHYROXINE 100MCG TABLET (0.1MG) PO SCH (05:52)
[2023-02-02] MEDS: LEVOTHYROXINE 75MCG TABLET (0.075MG) PO SCH (05:52)
[2023-02-02 06:40] VITALS: BP 123/70; TEMP 98.6; O2SAT 95
[2023-02-02] MEDS: METHADONE 10MG TAB PO SCH (07:59)
[2023-02-02] MEDS: VENLAFAXINE **XR** 75MG CAPSULE PO SCH (08:01)
[2023-02-02] MEDS: OLANZapine 2.5MG TABLET PO SCH (08:01)
[2023-02-02] MEDS: OMEPRAZOLE 20MG CAP PO SCH (08:01)
[2023-02-02] MEDS: GABAPENTIN 300 MG CAP PO SCH (08:01)
[2023-02-02] MEDS: CEFDINIR 300 MG CAP (OMNICEF) PO SCH (08:01)
[2023-02-02] MEDS ORDERED: CEFD300CAP PO (08:18)
[2023-02-02] MEDS ORDERED: VENL75CA47 PO (08:18)
[2023-02-02] MEDS ORDERED: MINI1CAP PO (08:18)
[2023-02-02] MEDS ORDERED: OLAN2.5T25 PO (08:18)
[2023-02-02] MEDS ORDERED: GABA-282 PO (08:18)
== END 2023-02-02 09:00 | disposition home or self-care (01) | DRG 751 ==
LOC: M PSY 14:37
PROVIDERS: ADMIT Psychiatry & Neurology Psychiatry; ATTEND Student in an Organized Health Care Education/Training Program
DX: F32.3 Major depressive disorder, single episode, severe with psychotic features (principal); F43.10 Post-traumatic stress disorder, unspecified; F60.3 Borderline personality disorder; Z91.51 Personal history of suicidal behavior; E03.9 Hypothyroidism, unspecified; G47.33 Obstructive sleep apnea (adult) (pediatric); E66.01 Morbid (severe) obesity due to excess calories; F10.20 Alcohol dependence, uncomplicated; Z93.0 Tracheostomy status; K21.9 Gastro-esophageal reflux disease without esophagitis; G89.29 Other chronic pain; Z79.890 Hormone replacement therapy; Z79.82 Long term (current) use of aspirin; Z79.899 Other long term (current) drug therapy; Z68.45 Body mass index [BMI] 70 or greater, adult; D86.9 Sarcoidosis, unspecified; F25.9 Schizoaffective disorder, unspecified

== ENCOUNTER → 2023-07-06 | Outpatient (CLI) | payer OTHER ==
[~2023-07-06] MED LIST changes: +CEFD1CAP9 PO; -CEFD300C42 PO; +CEFD300CAP PO; -FLUT50SP17; +FLUTISP; -LIDO15SO PO; +LIDO15SO8 PO; +OLAN2.5T25 PO; +TOPI-21 PO; -TOPI-254 PO
== END ==
LOC: M SOG 07:51
PROVIDERS: ATTEND Physician Assistant
DX: S82.851D Displaced trimalleolar fracture of right lower leg, subsequent encounter for closed fracture with routine healing (principal)

== ENCOUNTER → 2023-07-14 | Outpatient (CLI) | payer OTHER | LOC: M SOG 13:24 | PROVIDERS: ATTEND Physician Assistant | DX: S82.851D Displaced trimalleolar fracture of right lower leg, subsequent encounter for closed fracture with routine healing (principal) ==

== ENCOUNTER 2023-08-13 12:36 | Inpatient (IN) | payer OTHER ==
[~2023-08-13] VITALS: Ht 160 cm; Wt 121.7 kg
[~2023-08-13 12:36] MED LIST changes: +BUPR-597; +BUPR-597 PO; -BUPR300T92; -BUPR300T92 PO
[2023-08-13 13:36] LABS: HEMATOCRIT 33.6 % (36.0-47.0); HEMOGLOBIN 9.7 g/dl (12.0-15.5); MEAN CORPUSCULAR HEMOGLOBIN 22.9 pg (27.0-33.0); MEAN CORPUSCULAR HGB CONC 28.9 g/dl (32.0-36.5); MEAN CORPUSCULAR VOLUME 79.4 fl (80.0-96.0); PLATELET COUNT, AUTOMATED 162 10^3/uL (150-450); RED BLOOD COUNT 4.23 10^6/uL (4.00-5.40); WHITE BLOOD COUNT 5.6 10^3/uL (4.0-10.0)
[2023-08-13 14:03] LABS: AMPHETAMINES LEVEL URINE NEGATIVE (NEGATIVE); BARBITURATES URINE NEGATIVE (NEGATIVE); CANNABINOIDS URINE NEGATIVE (NEGATIVE); COCAINE METABOLITE URINE NEGATIVE (NEGATIVE); OPIATES URINE NEGATIVE (NEGATIVE); PHENCYCLIDINE URINE NEGATIVE (NEGATIVE)
[2023-08-13 14:04] LABS: BENZODIAZEPINES URINE POSITIVE (NEGATIVE); METHADONE URINE POSITIVE (NEGATIVE)
[2023-08-13] MEDS ORDERED: PRAZ1CAP PO (14:04)
[2023-08-13] MEDS ORDERED: OLAN2.5T25 PO (14:04)
[2023-08-13] MEDS ORDERED: NAPR-885 PO (14:04)
[2023-08-13] MEDS ORDERED: HOME MED LIST COMPLETE! XX SCH (14:05)
[2023-08-13 14:06] LABS: ETHYL ALCOHOL (ETHANOL) < 0.003 % (0.000-0.010)
[2023-08-13 14:08] LABS: ALBUMIN 3.9 G/DL (3.2-5.2); ALKALINE PHOSPHATASE 209 U/L (46-116); ALT/SGPT 20 U/L (7.0-40); AST/SGOT 23 U/L (<34); BILIRUBIN,DIRECT 0.1 MG/DL (<0.4); BILIRUBIN,TOTAL 0.2 MG/DL (0.3-1.2); BLOOD UREA NITROGEN 12 MG/DL (9-23); CALCIUM LEVEL 8.9 MG/DL (8.5-10.1); CARBON DIOXIDE LEVEL 25 MMOL/L (20-31); CHLORIDE LEVEL 106 MMOL/L (98-107); CREATININE FOR GFR 1.26 MG/DL (0.55-1.30); GLOMERULAR FILTRATION RATE 49.8 (>58); GLUCOSE, FASTING 123 MG/DL (60-100); POTASSIUM SERUM 3.8 MMOL/L (3.5-5.1); SALICYLATE LEVEL < 3.0 MG/DL (<30); SODIUM LEVEL 140 MMOL/L (136-145); TOTAL PROTEIN 6.8 G/DL (5.7-8.2)
[2023-08-13 14:10] LABS: THYROID STIMULATING HORMONE 1.872 uIU/ML (0.55-4.78)
[2023-08-13 14:20] LABS: HCG, SERUM QUALITATIVE NEGATIVE (NEGATIVE)
[2023-08-13] MEDS: IPRATROPIUM 0.5MG/ALBUTEROL 2.5MG INH SOL UD 3ML (DUONEB) NEB ONE (19:38)
[2023-08-13] MEDS: ACETAMINOPHEN TAB 650MG DOSE (2X325MG) PO ONE (19:40)
[2023-08-13 21:29] VITALS: O2SAT 96
[2023-08-14] MEDS ORDERED: NAPROXEN 250 MG TAB PO ONE (01:15)
[2023-08-14] MEDS ORDERED: VENLAFAXINE **XR** 75MG CAPSULE PO ONE (01:15)
[2023-08-14] MEDS ORDERED: METHADONE 10MG TAB PO ONE (01:15)
[2023-08-14] MEDS ORDERED: PRAZOSIN 1 MG CAP PO ONE (01:15)
[2023-08-14] MEDS ORDERED: GABAPENTIN 400MG CAP PO ONE (01:15)
[2023-08-14] MEDS ORDERED: hydrOXYzine 50 MG TAB PO STA (01:15)
[2023-08-14] MEDS ORDERED: OLANZapine 2.5MG TABLET PO ONE (01:15)
[2023-08-14] MEDS ORDERED: METHADONE 10MG TAB PO SCH (01:42)
[2023-08-14] MEDS: GABAPENTIN 400MG CAP PO SCH (03:18)
[2023-08-14] MEDS: hydrOXYzine 50 MG TAB PO SCH (03:18)
[2023-08-14 03:19] VITALS: BP 125/66
[2023-08-14] MEDS: PRAZOSIN 1 MG CAP PO SCH (03:19)
[2023-08-14] MEDS: OLANZapine 2.5MG TABLET PO SCH (03:19)
[2023-08-14] MEDS: VENLAFAXINE **XR** 75MG CAPSULE PO SCH (11:13)
[2023-08-14] MEDS: NAPROXEN 250 MG TAB PO PRN (11:13)
[2023-08-14] MEDS: METHADONE 10MG TAB PO SCH (11:14)
[2023-08-14] MEDS ORDERED: ACETAMINOPHEN TAB 650MG DOSE (2X325MG) PO PRN (12:00)
[2023-08-14] MEDS ORDERED: MAALOX 30 ML SUSP *UDC PO PRN (12:00)
[2023-08-14] MEDS ORDERED: MOM 30ML SUSPENSION UDC PO PRN (12:00)
[2023-08-14] MEDS ORDERED: diphenhydrAMINE 25MG CAP PO PRN (12:00)
[2023-08-14 13:14] VITALS: BP 135/80; TEMP 97.8; O2SAT 95
[2023-08-14 18:25] VITALS: BP 167/76; TEMP 98.9; O2SAT 84
[2023-08-14] MEDS: IBUPROFEN 400MG TAB PO PRN (19:01)
[2023-08-14 19:29] VITALS: BP 128/66; TEMP 98.7; O2SAT 100
[2023-08-14] MEDS ORDERED: traZODone 50 MG TAB PO PRN (21:00)
[2023-08-14] MEDS ORDERED: LEVO200T31 PO (23:08)
[2023-08-17] MEDS ORDERED: LEVO1TAB40 PO (08:54)
== END 2023-08-14 19:59 | disposition short-term general hospital (02) | DRG 754 ==
LOC: M ED 12:36 → M ED INP 08-14 11:57 → M PSY 08-14 13:09
PROVIDERS: ADMIT Student in an Organized Health Care Education/Training Program; ATTEND Psychiatry & Neurology Child & Adolescent Psychiatry
DX: F32.A Depression, unspecified (principal); R09.02 Hypoxemia; Z93.0 Tracheostomy status

== ENCOUNTER 2023-08-14 19:33 | Inpatient (IN) | payer OTHER ==
[~2023-08-14] VITALS: Ht 160 cm; Wt 121.7 kg
[~2023-08-14 19:33] MED LIST changes: +NAPR-885 PO
[2023-08-14] MEDS ORDERED: ALBUTEROL SULFATE 2.5MG/0.5ML INH NEB SOLN NEB PRN (19:40)
[2023-08-14 20:18] VITALS: BP 138/70; TEMP 98.2; O2SAT 92; O2SAT 95
[2023-08-14 22:02] LABS: HEMATOCRIT 30.5 % (36.0-47.0); HEMOGLOBIN 8.9 g/dl (12.0-15.5); MEAN CORPUSCULAR HEMOGLOBIN 23.3 pg (27.0-33.0); MEAN CORPUSCULAR HGB CONC 29.2 g/dl (32.0-36.5); MEAN CORPUSCULAR VOLUME 79.8 fl (80.0-96.0); PLATELET COUNT, AUTOMATED 146 10^3/uL (150-450); RED BLOOD COUNT 3.82 10^6/uL (4.00-5.40); WHITE BLOOD COUNT 6.7 10^3/uL (4.0-10.0)
[2023-08-14 22:14] LABS: INR 1.09; PROTHROMBIN TIME 13.8 SECONDS (12.5-14.5)
[2023-08-14 22:21] LABS: PROCALCITONIN 0.12 ng/ml
[2023-08-14] MEDS ORDERED: MAALOX 30 ML SUSP *UDC PO PRN (22:25)
[2023-08-14] MEDS ORDERED: MOM 30ML SUSPENSION UDC PO PRN (22:25)
[2023-08-14] MEDS ORDERED: DEXTROMETHORPHAN 60MG/10ML SUSP 90ML BTL(DELSYM) PO PRN (22:25)
[2023-08-14 22:43] LABS: ALBUMIN 3.1 G/DL (3.2-5.2); ALKALINE PHOSPHATASE 179 U/L (46-116); ALT/SGPT 15 U/L (7.0-40); AST/SGOT 21 U/L (<34); BILIRUBIN,TOTAL 0.4 MG/DL (0.3-1.2); BLOOD UREA NITROGEN 9 MG/DL (9-23); CALCIUM LEVEL 8.2 MG/DL (8.5-10.1); CARBON DIOXIDE LEVEL 28 MMOL/L (20-31); CHLORIDE LEVEL 107 MMOL/L (98-107); GLOMERULAR FILTRATION RATE > 60.0 (>58); GLUCOSE, FASTING 134 MG/DL (60-100); MAGNESIUM LEVEL 1.7 MG/DL (1.8-2.4); POTASSIUM SERUM 4.1 MMOL/L (3.5-5.1); SODIUM LEVEL 140 MMOL/L (136-145)
[2023-08-14] MEDS ORDERED: LEVO200T31 PO (23:08)
[2023-08-14] MEDS ORDERED: HOME MED LIST COMPLETE! XX SCH (23:10)
[2023-08-14] MEDS: MAGNESIUM OXIDE 400MG TAB (MAG-OX) PO SCH (23:23)
[2023-08-14] MEDS: cefTRIAXone SOD 1 GM in D5W MINI-BAG PLUS 50 ML IV SCH (23:23)
[2023-08-14] MEDS: HEPARIN SOD (PORCINE) 5000UNITS/ML 1ML VIAL/SYRINGE SQ SCH (23:23)
[2023-08-14] MEDS: DOXYCYCLINE HYCLATE 100MG TABLET PO SCH (23:23)
[2023-08-15] VITALS (8 sets, daily range): BP systolic 117–130; BP diastolic 60–71; TEMP 97.7–98.1; O2SAT 92–97
[2023-08-15] MEDS: IPRATROPIUM 0.5MG/ALBUTEROL 2.5MG INH SOL UD 3ML (DUONEB) INH SCH (01:54)
[2023-08-15] MEDS ORDERED: SODIUM CHLORIDE 0.9% 3ML NEB SOLUTION FOR INHALATION INH SCH (02:00)
[2023-08-15 05:48] LABS: HEMATOCRIT 29.4 % (36.0-47.0); HEMOGLOBIN 8.6 g/dl (12.0-15.5); MEAN CORPUSCULAR HGB CONC 29.3 g/dl (32.0-36.5); MEAN CORPUSCULAR VOLUME 78.6 fl (80.0-96.0); PLATELET COUNT, AUTOMATED 135 10^3/uL (150-450); RED BLOOD COUNT 3.74 10^6/uL (4.00-5.40); WHITE BLOOD COUNT 6.2 10^3/uL (4.0-10.0)
[2023-08-15 06:21] LABS: ALBUMIN 2.9 G/DL (3.2-5.2); ALKALINE PHOSPHATASE 183 U/L (46-116); ALT/SGPT 15 U/L (7.0-40); AST/SGOT 24 U/L (<34); BILIRUBIN,TOTAL 0.4 MG/DL (0.3-1.2); BLOOD UREA NITROGEN 7 MG/DL (9-23); CALCIUM LEVEL 8.3 MG/DL (8.5-10.1); CARBON DIOXIDE LEVEL 30 MMOL/L (20-31); CHLORIDE LEVEL 107 MMOL/L (98-107); CREATININE FOR GFR 0.92 MG/DL (0.55-1.30); GLOMERULAR FILTRATION RATE > 60.0 (>58); GLUCOSE, FASTING 132 MG/DL (60-100); MAGNESIUM LEVEL 1.8 MG/DL (1.8-2.4); POTASSIUM SERUM 3.9 MMOL/L (3.5-5.1); SODIUM LEVEL 142 MMOL/L (136-145); TOTAL PROTEIN 5.7 G/DL (5.7-8.2)
[2023-08-15] MEDS: GABAPENTIN 400MG CAP PO SCH (09:00)
[2023-08-15] MEDS: DOCUSATE SODIUM 100MG CAPSULE PO SCH (09:00)
[2023-08-15] MEDS: METHADONE 10MG TAB PO SCH (09:23)
[2023-08-15] MEDS: hydrOXYzine 50 MG TAB PO SCH (11:01)
[2023-08-15] MEDS: VENLAFAXINE **XR** 75MG CAPSULE PO SCH (11:01)
[2023-08-15] MEDS: OLANZapine 2.5MG TABLET PO SCH (11:01)
[2023-08-15] MEDS: LEVOTHYROXINE 100MCG TABLET (0.1MG) PO SCH (11:03)
[2023-08-15] MEDS: PRAZOSIN 1 MG CAP PO SCH (20:09)
[2023-08-16 01:42] VITALS: O2SAT 98
[2023-08-16] MEDS: ACETAMINOPHEN TAB 650MG DOSE (2X325MG) PO PRN (05:39)
[2023-08-16 05:40] VITALS: BP 114/71; TEMP 97.9; O2SAT 91; O2SAT 97
[2023-08-16 09:00] VITALS: O2SAT 94
[2023-08-16] MEDS ORDERED: CEFP200T PO (10:17)
[2023-08-16] MEDS ORDERED: DOXY100C3 PO (10:17)
[2023-08-16] MEDS ORDERED: VENL75CA47 PO (10:51)
[2023-08-16] MEDS ORDERED: GABA800T4 PO (10:51)
[2023-08-17] MEDS ORDERED: LEVO1TAB40 PO (08:54)
== END 2023-08-16 11:58 | disposition home or self-care (01) | DRG 133 ==
LOC: M MSPAV 20:00
PROVIDERS: ADMIT Family Medicine; ATTEND Internal Medicine
DX: J96.01 Acute respiratory failure with hypoxia (principal); J18.9 Pneumonia, unspecified organism; F32.3 Major depressive disorder, single episode, severe with psychotic features; J38.6 Stenosis of larynx; R45.851 Suicidal ideations; N18.31 Chronic kidney disease, stage 3a; Z93.0 Tracheostomy status; E66.01 Morbid (severe) obesity due to excess calories; T39.012A Poisoning by aspirin, intentional self-harm, initial encounter; F25.9 Schizoaffective disorder, unspecified; R42 Dizziness and giddiness; F41.1 Generalized anxiety disorder; G47.33 Obstructive sleep apnea (adult) (pediatric); J45.909 Unspecified asthma, uncomplicated; E03.9 Hypothyroidism, unspecified; G47.00 Insomnia, unspecified; F60.3 Borderline personality disorder; F43.10 Post-traumatic stress disorder, unspecified; Z68.42 Body mass index [BMI] 45.0-49.9, adult; Z79.890 Hormone replacement therapy; Z79.899 Other long term (current) drug therapy; Z91.52 Personal history of nonsuicidal self-harm; Z62.810 Personal history of physical and sexual abuse in childhood

== ENCOUNTER 2023-10-30 10:16 | Inpatient (IN) | payer MEDICAID, OTHER ==
[~2023-10-30] VITALS: Ht 160 cm; Wt 118.5 kg
[~2023-10-30 10:16] MED LIST changes: +CEFP200T PO; +LEVO1TAB40 PO; +LEVO200T31 PO
[2023-10-30] MEDS: methylPREDNISolone 125MG 2ML VIAL IV ONE (11:05)
[2023-10-30] MEDS: IPRATROPIUM 0.5MG/ALBUTEROL 2.5MG INH SOL UD 3ML (DUONEB) NEB ONE (11:09)
[2023-10-30] MEDS: ALBUTEROL SULFATE 2.5MG/0.5ML INH NEB SOLN INH ONE (11:10)
[2023-10-30 11:15] LABS: BASO % 0.2 % (0.0-1.0); EOS # 0.1 10^3/uL (0.0-0.5); EOS % 0.7 % (0.0-3.0); HEMOGLOBIN 9.6 g/dl (12.0-15.5); LYMPH # 0.7 10^3/uL (1.5-5.0); LYMPH % 7.5 % (24.0-44.0); MEAN CORPUSCULAR HEMOGLOBIN 23.2 pg (27.0-33.0); MEAN CORPUSCULAR VOLUME 77.5 fl (80.0-96.0); MONO # 0.6 10^3/uL (0.0-0.8); MONO % 6.1 % (2.0-8.0); NEUTROPHILS # 7.7 10^3/uL (1.5-8.5); NEUTROPHILS % 84.8 % (36.0-66.0); PLATELET COUNT, AUTOMATED 159 10^3/uL (150-450); RED BLOOD COUNT 4.13 10^6/uL (4.00-5.40); WHITE BLOOD COUNT 9.1 10^3/uL (4.0-10.0)
[2023-10-30] MEDS ORDERED: ISOVUE-370 76% 100ML VIAL As Ordered ONE (11:51)
[2023-10-30 12:33] LABS: CALCIUM LEVEL 8.4 MG/DL (8.5-10.1); CK-MB VALUE MASS 2.6 NG/ML (<3.6); CREATININE FOR GFR 1.25 MG/DL (0.55-1.30); FREE T4 0.68 NG/DL (0.89-1.76); GLOMERULAR FILTRATION RATE 50.3 (>58); MB/CK RELATIVE INDEX 2.4 (< OR =4); POTASSIUM SERUM 3.5 MMOL/L (3.5-5.1); THYROID STIMULATING HORMONE 9.013 uIU/ML (0.55-4.78)
[2023-10-30 14:10] LABS: CK-MB VALUE MASS 2.3 NG/ML (<3.6)
[2023-10-30 14:11] LABS: MB/CK RELATIVE INDEX 2.34 (< OR =4)
[2023-10-30 14:18] LABS: ABG BASE EXCESS -3.7 (-2.0-2.0); ABG HCO3 22.5 MMOL/L (22.0-26.0); ABG O2 SATURATION 97.1 % (95.0-99.0); ABG PARTIAL PRESSURE CO2 45.1 mmHg (35.0-45.0); ABG PARTIAL PRESSURE O2 97.5 mmHg (75.0-100.0); ABG STANDARD HCO3 21.4 MMOL/L. (22.0-26.0); ABG TOTAL CO2 23.8 MMOL/L (22.0-29.0); ABG pH (ARTERIAL) 7.315 UNITS (7.350-7.450)
[2023-10-30] MEDS ORDERED: IPRATROPIUM 0.5MG/ALBUTEROL 2.5MG INH SOL UD 3ML (DUONEB) NEB PRN (15:15)
[2023-10-30 16:08] LABS: C REACTIVE PROTEIN QUANTITATIV 8.6 MG/DL (<1.0)
[2023-10-30 16:22] LABS: PROCALCITONIN 0.08 ng/ml
[2023-10-30 16:36] LABS: ERYTHROCYTE SEDIMENTATION RATE 40 mm/hr (0-20)
[2023-10-30] MEDS: cefTRIAXone SOD 2 GM in D5W MINI-BAG PLUS 50 ML IV SCH (16:48)
[2023-10-30] MEDS ORDERED: VENL75TA2 PO (17:14)
[2023-10-30] MEDS ORDERED: HOME MED LIST COMPLETE! XX SCH (17:20)
[2023-10-30] MEDS: methylPREDNISolone 125MG 2ML VIAL IV SCH (17:26)
[2023-10-30] MEDS: NICOTINE 14 MG/24 HR TRANSDERMAL TD ONE (17:27)
[2023-10-30] MEDS: AZITHROMYCIN 250MG TABLET PO ONE (17:27)
[2023-10-30] MEDS: FUROSEMIDE 40MG/4ML VIAL IV ONE (18:38)
[2023-10-30 18:49] VITALS: BP 107/81; TEMP 97.5; O2SAT 92
[2023-10-30] MEDS: IPRATROPIUM 0.5MG/ALBUTEROL 2.5MG INH SOL UD 3ML (DUONEB) NEB SCH (20:13)
[2023-10-30] MEDS: guaiFENesin ER TABLET 600 MG TAB PO SCH (20:42)
[2023-10-30] MEDS: GABAPENTIN 400MG CAP PO SCH (20:42)
[2023-10-30] MEDS: OLANZapine 2.5MG TABLET PO SCH (20:42)
[2023-10-30 20:44] VITALS: BP 110/79; TEMP 97.5; O2SAT 93
[2023-10-30] MEDS: PRAZOSIN 1 MG CAP PO SCH (20:46)
[2023-10-30] MEDS: HEPARIN SOD (PORCINE) 5000UNITS/ML 1ML VIAL/SYRINGE SQ SCH (22:34)
[2023-10-31] VITALS (7 sets, daily range): BP systolic 107–137; BP diastolic 56–78; TEMP 97–97.9; O2SAT 92–99
[2023-10-31] MEDS: LEVOTHYROXINE 75MCG TABLET (0.075MG) PO SCH (05:26)
[2023-10-31] MEDS: VENLAFAXINE **XR** 75MG CAPSULE PO SCH (09:33)
[2023-10-31] MEDS: AZITHROMYCIN 250MG TABLET PO SCH (09:33)
[2023-10-31] MEDS: MIDODRINE 5 MG TAB PO ONE (11:10)
[2023-10-31] MEDS: METHADONE 10MG TAB PO SCH (11:11)
[2023-10-31] MEDS: FUROSEMIDE 40MG/4ML VIAL IV ONE (11:11)
[2023-10-31 11:13] LABS: IONIZED CALCIUM 4.5 MG/DL (4.5-5.3)
[2023-10-31 11:18] LABS: BASO % 0.1 % (0.0-1.0); HEMATOCRIT 31.6 % (36.0-47.0); HEMOGLOBIN 9.6 g/dl (12.0-15.5); LYMPH # 0.7 10^3/uL (1.5-5.0); LYMPH % 10.2 % (24.0-44.0); MEAN CORPUSCULAR HEMOGLOBIN 23.2 pg (27.0-33.0); MEAN CORPUSCULAR HGB CONC 30.4 g/dl (32.0-36.5); MEAN CORPUSCULAR VOLUME 76.5 fl (80.0-96.0); MONO # 0.2 10^3/uL (0.0-0.8); MONO % 2.5 % (2.0-8.0); NEUTROPHILS # 6.3 10^3/uL (1.5-8.5); NEUTROPHILS % 86.6 % (36.0-66.0); PLATELET COUNT, AUTOMATED 181 10^3/uL (150-450); RED BLOOD COUNT 4.13 10^6/uL (4.00-5.40); WHITE BLOOD COUNT 7.3 10^3/uL (4.0-10.0)
[2023-10-31 11:51] LABS: BLOOD UREA NITROGEN 13 MG/DL (9-23); CALCIUM LEVEL 8.9 MG/DL (8.5-10.1); CARBON DIOXIDE LEVEL 27 MMOL/L (20-31); CHLORIDE LEVEL 105 MMOL/L (98-107); CREATININE FOR GFR 1.04 MG/DL (0.55-1.30); GLOMERULAR FILTRATION RATE > 60.0 (>58); GLUCOSE, FASTING 234 MG/DL (60-100); POTASSIUM SERUM 3.4 MMOL/L (3.5-5.1); SODIUM LEVEL 140 MMOL/L (136-145)
[2023-10-31] MEDS: methylPREDNISolone 40MG 1ML VIAL IV SCH (23:10)
[2023-11-01 04:00] VITALS: BP 131/69; TEMP 97.5; O2SAT 93
[2023-11-01 05:57] LABS: BASO % 0.1 % (0.0-1.0); HEMATOCRIT 31.7 % (36.0-47.0); HEMOGLOBIN 9.2 g/dl (12.0-15.5); LYMPH # 1.1 10^3/uL (1.5-5.0); LYMPH % 12.5 % (24.0-44.0); MEAN CORPUSCULAR HEMOGLOBIN 22.7 pg (27.0-33.0); MEAN CORPUSCULAR VOLUME 78.3 fl (80.0-96.0); MONO # 0.4 10^3/uL (0.0-0.8); MONO % 4.9 % (2.0-8.0); NEUTROPHILS # 6.8 10^3/uL (1.5-8.5); NEUTROPHILS % 81.7 % (36.0-66.0); PLATELET COUNT, AUTOMATED 215 10^3/uL (150-450); RED BLOOD COUNT 4.05 10^6/uL (4.00-5.40); WHITE BLOOD COUNT 8.4 10^3/uL (4.0-10.0)
[2023-11-01 06:23] LABS: CALCIUM LEVEL 8.7 MG/DL (8.5-10.1); CREATININE FOR GFR 1.21 MG/DL (0.55-1.30); GLOMERULAR FILTRATION RATE 52.2 (>58); POTASSIUM SERUM 3.4 MMOL/L (3.5-5.1)
[2023-11-01] MEDS ORDERED: SODIUM CHLORIDE HYPERTONIC 3% 4ML NEB SOL INH PRN (08:50)
[2023-11-01] MEDS: POTASSIUM CHLORIDE 10MEQ SR TABLET PO ONE (09:41)
[2023-11-01] MEDS: SODIUM CHLORIDE HYPERTONIC 3% 4ML NEB SOL INH SCH (09:54)
[2023-11-01 12:00] VITALS: BP 133/84; TEMP 97.3; O2SAT 94
[2023-11-01] MEDS: FUROSEMIDE 40MG/4ML VIAL IV ONE (16:09)
[2023-11-01 20:00] VITALS: BP 135/95; TEMP 97.9; O2SAT 94
[2023-11-01] MEDS: POTASSIUM CHLORIDE 10MEQ SR TABLET PO SCH (20:57)
[2023-11-01 20:59] VITALS: BP 135/95
[2023-11-01 21:57] LABS: IONIZED CALCIUM 4.6 MG/DL (4.5-5.3)
[2023-11-01 22:29] LABS: CALCIUM LEVEL 8.6 MG/DL (8.5-10.1); CREATININE FOR GFR 1.22 MG/DL (0.55-1.30); GLOMERULAR FILTRATION RATE 51.7 (>58); MAGNESIUM LEVEL 1.8 MG/DL (1.8-2.4); POTASSIUM SERUM 3.2 MMOL/L (3.5-5.1)
[2023-11-02 04:00] VITALS: BP 137/75; TEMP 97.5; O2SAT 93
[2023-11-02] MEDS ORDERED: CEFD1CAP9 PO (10:21)
[2023-11-02] MEDS ORDERED: DOXY-440 PO (10:21)
[2023-11-02] MEDS ORDERED: ALBU8.5H INH (10:21)
[2023-11-02] MEDS ORDERED: PRED10TA2 PO (10:21)
[2023-11-02] MEDS ORDERED: ALBU2.5V10 INH (10:21)
== END 2023-11-02 10:08 | disposition left against medical advice (07) | DRG 133 ==
LOC: EDBD 10:16 → M ED 10:16 → M ED INP 15:10 → EEVIPCON 16:03 → OBSVTOIN 16:03 → M MSPAV 18:50
PROVIDERS: ADMIT General Practice; ATTEND General Practice
DX: J96.21 Acute and chronic respiratory failure with hypoxia (principal); J18.9 Pneumonia, unspecified organism; J95.09 Other tracheostomy complication; J44.0 Chronic obstructive pulmonary disease with (acute) lower respiratory infection; F25.9 Schizoaffective disorder, unspecified; E66.2 Morbid (severe) obesity with alveolar hypoventilation; J44.1 Chronic obstructive pulmonary disease with (acute) exacerbation; J45.909 Unspecified asthma, uncomplicated; F11.21 Opioid dependence, in remission; R60.0 Localized edema; D64.9 Anemia, unspecified; F17.200 Nicotine dependence, unspecified, uncomplicated; E03.9 Hypothyroidism, unspecified; J98.09 Other diseases of bronchus, not elsewhere classified; F60.3 Borderline personality disorder; G47.00 Insomnia, unspecified; F43.10 Post-traumatic stress disorder, unspecified; Z91.51 Personal history of suicidal behavior; Z79.890 Hormone replacement therapy; Z79.899 Other long term (current) drug therapy; Z68.42 Body mass index [BMI] 45.0-49.9, adult

== ENCOUNTER → 2023-11-24 | Outpatient (REF) | payer OTHER ==
[~2023-11-24] MED LIST changes: +ALBU2.5V10 INH; +DOXY-440 PO; +VENL75TA2 PO
[2023-11-24 17:45] LABS: HEMOGLOBIN A1c 5.7 % (4.0-6.0)
[2023-11-24 17:57] LABS: CALCIUM LEVEL 8.6 MG/DL (8.5-10.1); CHOLESTEROL RISK RATIO 3.89 (<5); CREATININE FOR GFR 1.12 MG/DL (0.55-1.30); GLOMERULAR FILTRATION RATE 57.1 (>58); HDL CHOLESTEROL 49.8 MG/DL (>40); LDL CHOLESTEROL 116.6 MG/DL (<100); NON-HDL-C 144.2 MG/DL; POTASSIUM SERUM 3.7 MMOL/L (3.5-5.1)
[2023-11-24 17:59] LABS: THYROID STIMULATING HORMONE 2.334 uIU/ML (0.55-4.78)
[2023-11-24 18:00] LABS: TOTAL 25(OH) VITAMIN D 15.7 NG/ML (20.0-100.0)
== END ==
LOC: M LAB REF 16:30
PROVIDERS: ATTEND Nurse Practitioner Family
DX: R60.0 Localized edema (principal); E03.9 Hypothyroidism, unspecified; E66.9 Obesity, unspecified

== ENCOUNTER 2024-01-11 08:36 | Emergency (ER) | payer OTHER ==
[~2024-01-11] VITALS: Ht 160 cm; Wt 125.1 kg
[~2024-01-11 08:36] MED LIST changes: +GABA-1172 PO; +GABA-1490 PO; +GABA-1635; +GABA-1635 PO; -GABA-282 PO; -GABA600T4 PO; -GABA800T4; -GABA800T4 PO; -OLAN2.5T25 PO; +OLAN2.5T53 PO
[2024-01-11 08:38] VITALS: BP 135/83; TEMP 98.5; O2SAT 93
[2024-01-11 10:10] LABS: BASO % 0.6 % (0.0-1.0); EOS # 0.1 10^3/uL (0.0-0.5); EOS % 1.7 % (0.0-3.0); HEMATOCRIT 35.1 % (36.0-47.0); HEMOGLOBIN 10.1 g/dl (12.0-15.5); LYMPH # 0.6 10^3/uL (1.5-5.0); LYMPH % 9.6 % (24.0-44.0); MEAN CORPUSCULAR HEMOGLOBIN 23.7 pg (27.0-33.0); MEAN CORPUSCULAR HGB CONC 28.8 g/dl (32.0-36.5); MEAN CORPUSCULAR VOLUME 82.4 fl (80.0-96.0); MONO # 0.3 10^3/uL (0.0-0.8); NEUTROPHILS # 5.4 10^3/uL (1.5-8.5); NEUTROPHILS % 83.3 % (36.0-66.0); PLATELET COUNT, AUTOMATED 155 10^3/uL (150-450); RED BLOOD COUNT 4.26 10^6/uL (4.00-5.40); WHITE BLOOD COUNT 6.5 10^3/uL (4.0-10.0)
[2024-01-11 10:18] LABS: INR 1.02; PARTIAL THROMBOPLASTIN TIME 32.7 SECONDS (24.8-34.2); PROTHROMBIN TIME 13.1 SECONDS (12.5-14.5)
[2024-01-11 10:22] LABS: ERYTHROCYTE SEDIMENTATION RATE 37 mm/hr (0-20)
[2024-01-11 10:29] LABS: ALBUMIN 3.8 G/DL (3.2-5.2); ALKALINE PHOSPHATASE 103 U/L (46-116); ALT/SGPT 10 U/L (7.0-40); AST/SGOT 10 U/L (<34); BILIRUBIN,DIRECT < 0.1 MG/DL (<0.4); BILIRUBIN,TOTAL 0.3 MG/DL (0.3-1.2); BLOOD UREA NITROGEN 8 MG/DL (9-23); CALCIUM LEVEL 8.9 MG/DL (8.5-10.1); CARBON DIOXIDE LEVEL 30 MMOL/L (20-31); CHLORIDE LEVEL 103 MMOL/L (98-107); GLOMERULAR FILTRATION RATE 37.8 (>58); GLUCOSE, FASTING 123 MG/DL (60-100); POTASSIUM SERUM 3.3 MMOL/L (3.5-5.1); SODIUM LEVEL 139 MMOL/L (136-145)
[2024-01-11 10:41] LABS: PROCALCITONIN 0.08 ng/ml
[2024-01-11 10:45] VITALS: O2SAT 94
[2024-01-11] MEDS: ACETAMINOPHEN *IV* 1,000 MG in IV 1 EA IV ONE (10:58)
[2024-01-11] MEDS: BACITRACIN OINTMENT 30GM TUBE TOP ONE (11:47)
[2024-01-11] MEDS: POTASSIUM CHLORIDE 10MEQ SR TABLET PO ONE (16:00)
[2024-01-11] MEDS: NS 500 ML IV ONE (16:02)
== END 2024-01-11 16:16 | disposition home or self-care (01) ==
LOC: M ED 08:36
DX: I87.313 Chronic venous hypertension (idiopathic) with ulcer of bilateral lower extremity (principal); Q61.5 Medullary cystic kidney; R60.9 Edema, unspecified; I10 Essential (primary) hypertension; E78.5 Hyperlipidemia, unspecified; K21.9 Gastro-esophageal reflux disease without esophagitis; Z79.51 Long term (current) use of inhaled steroids; Z79.2 Long term (current) use of antibiotics; Z79.52 Long term (current) use of systemic steroids; Z79.899 Other long term (current) drug therapy
CPT/HCPCS: 71045; 76775; 80048; 80076; 83605; 83880; 84145; 85025; 85610; 85652; 85730; 86140; 87040; 87077; 87186; 93970; 96374; 99283; J0131

== ENCOUNTER 2024-01-13 07:27 | Inpatient (IN) | payer OTHER ==
[~2024-01-13] VITALS: Ht 160 cm; Wt 124.9 kg
[2024-01-13] MEDS: IPRATROPIUM 0.5MG/ALBUTEROL 2.5MG INH SOL UD 3ML (DUONEB) NEB PRN (08:09)
[2024-01-13] MEDS ORDERED: ACETAMINOPHEN 500 MG TAB PO ONE (08:10)
[2024-01-13 08:25] LABS: BASO % 0.5 % (0.0-1.0); EOS # 0.1 10^3/uL (0.0-0.5); EOS % 1.5 % (0.0-3.0); HEMATOCRIT 32.4 % (36.0-47.0); HEMOGLOBIN 9.3 g/dl (12.0-15.5); LYMPH # 0.4 10^3/uL (1.5-5.0); LYMPH % 5.3 % (24.0-44.0); MEAN CORPUSCULAR HEMOGLOBIN 23.8 pg (27.0-33.0); MEAN CORPUSCULAR HGB CONC 28.7 g/dl (32.0-36.5); MEAN CORPUSCULAR VOLUME 82.9 fl (80.0-96.0); MONO # 0.3 10^3/uL (0.0-0.8); MONO % 3.2 % (2.0-8.0); NEUTROPHILS # 7.2 10^3/uL (1.5-8.5); NEUTROPHILS % 88.6 % (36.0-66.0); PLATELET COUNT, AUTOMATED 136 10^3/uL (150-450); RED BLOOD COUNT 3.91 10^6/uL (4.00-5.40); WHITE BLOOD COUNT 8.1 10^3/uL (4.0-10.0)
[2024-01-13] MEDS: dexAMETHasone 20MG/5ML VIAL IV ONE (08:29)
[2024-01-13] MEDS: ACETAMINOPHEN *IV* 1,000 MG in IV 1 EA IV ONE (08:36)
[2024-01-13 08:40] LABS: ABG BASE EXCESS -2.5 (-2.0-2.0); ABG HCO3 22.8 MMOL/L (22.0-26.0); ABG O2 SATURATION 88.5 % (95.0-99.0); ABG PARTIAL PRESSURE CO2 41.3 mmHg (35.0-45.0); ABG PARTIAL PRESSURE O2 56.9 mmHg (75.0-100.0); ABG STANDARD HCO3 22.2 MMOL/L. (22.0-26.0); ABG pH (ARTERIAL) 7.359 UNITS (7.350-7.450)
[2024-01-13 08:49] LABS: BLOOD UREA NITROGEN 7 MG/DL (9-23); CALCIUM LEVEL 8.2 MG/DL (8.5-10.1); CARBON DIOXIDE LEVEL 28 MMOL/L (20-31); CHLORIDE LEVEL 101 MMOL/L (98-107); CREATININE FOR GFR 1.63 MG/DL (0.55-1.30); GLUCOSE, FASTING 124 MG/DL (60-100); POTASSIUM SERUM 3.1 MMOL/L (3.5-5.1); SODIUM LEVEL 136 MMOL/L (136-145)
[2024-01-13] MEDS ORDERED: ISOVUE-370 76% 100ML VIAL As Ordered ONE (09:55)
[2024-01-13 11:02] LABS: APPEARANCE, URINE CLEAR (CLEAR); BACTERIA, URINE AUTO NEGATIVE (NEGATIVE); BILIRUBIN, URINE AUTO NEGATIVE (NEGATIVE); BLOOD, URINE BLOOD 1+ (NEGATIVE); COLOR, URINE YELLOW (YELLOW); GLUCOSE, URINE (UA) AUTO NEGATIVE (NEGATIVE); KETONE, URINE AUTO NEGATIVE (NEGATIVE); LEUKOCYTE ESTERASE, URINE AUTO TRACE (NEGATIVE); NITRITE, URINE AUTO NEGATIVE (NEGATIVE); PROTEIN, URINE AUTO NEGATIVE (NEGATIVE); RBC, URINE AUTO 7 /HPF (0-3); SPECIFIC GRAVITY URINE AUTO 1.014 (1.002-1.035); SQUAMOUS EPITHELIAL CELL UR AU 1 /HPF (0-6); UROBILINOGEN, URINE AUTO 0.2 mg/dL (0.0-2.0); WBC, URINE AUTO 4 /HPF (0-3)
[2024-01-13 11:29] LABS: AMPHETAMINES LEVEL URINE NEGATIVE (NEGATIVE); BARBITURATES URINE NEGATIVE (NEGATIVE); BENZODIAZEPINES URINE NEGATIVE (NEGATIVE); CANNABINOIDS URINE NEGATIVE (NEGATIVE); COCAINE METABOLITE URINE NEGATIVE (NEGATIVE); OPIATES URINE NEGATIVE (NEGATIVE); PHENCYCLIDINE URINE NEGATIVE (NEGATIVE)
[2024-01-13 11:30] LABS: METHADONE URINE POSITIVE (NEGATIVE)
[2024-01-13 11:40] LABS: SALICYLATE LEVEL 12.9 MG/DL (<30)
[2024-01-13] MEDS ORDERED: VENTAER INH (14:59)
[2024-01-13] MEDS ORDERED: IPRATROPIUM 0.5MG/ALBUTEROL 2.5MG INH SOL UD 3ML (DUONEB) NEB PRN (15:00)
[2024-01-13] MEDS ORDERED: HOME MED LIST COMPLETE! XX SCH (15:05)
[2024-01-13] MEDS ORDERED: hydrOXYzine 50 MG TAB PO PRN (15:15)
[2024-01-13 15:18] LABS: PROCALCITONIN 0.18 ng/ml
[2024-01-13 15:44] LABS: MAGNESIUM LEVEL 1.7 MG/DL (1.8-2.4)
[2024-01-13 15:46] LABS: SALICYLATE LEVEL 9.1 MG/DL (<30)
[2024-01-13] MEDS ORDERED: GABAPENTIN 300 MG CAP PO ONE (15:50)
[2024-01-13] MEDS: NS 1,000 ML IV SCH (15:52)
[2024-01-13] MEDS: MAG SULF 1GM/100ML (MAG RUN) 1 GM in IV 1 EA IV SCH (15:52)
[2024-01-13] MEDS: POTASSIUM CHLORIDE 10MEQ SR TABLET PO ONE (15:53)
[2024-01-13] MEDS: GABAPENTIN 400MG CAP PO SCH (16:25)
[2024-01-13] MEDS: cefTRIAXone SOD 2 GM in DEXTROSE 5% (D5W) MINI-BAG/ADV 50 ML IV ONE (16:56)
[2024-01-13] MEDS: ACETAMINOPHEN 500 MG TAB PO PRN (18:38)
[2024-01-13] MEDS ORDERED: methylPREDNISolone 40MG 1ML VIAL IV SCH (21:00)
[2024-01-13] MEDS: traZODone 50 MG TAB PO SCH (22:05)
[2024-01-13] MEDS: OLANZapine 2.5MG TABLET PO SCH (22:06)
[2024-01-13] MEDS: PRAZOSIN 1 MG CAP PO SCH (22:08)
[2024-01-13] MEDS: RIVAROXABAN 10MG TAB (XARELTO) PO SCH (22:10)
[2024-01-13] MEDS: DOXYCYCLINE HYCLATE 100MG TABLET PO SCH (22:12)
[2024-01-13] MEDS: IPRATROPIUM 0.5MG/ALBUTEROL 2.5MG INH SOL UD 3ML (DUONEB) NEB SCH (22:40)
[2024-01-14] MEDS ORDERED: ACETAMINOPHEN *IV* 1,000 MG in IV 1 EA IV ONE (03:35)
[2024-01-14] MEDS: METHOCARBAMOL 1,000 MG/10 ML VIAL IV ONE (04:12)
[2024-01-14] MEDS: LEVOTHYROXINE 100MCG TABLET (0.1MG) PO SCH (06:00)
[2024-01-14 06:21] LABS: HEMATOCRIT 31.2 % (36.0-47.0); HEMOGLOBIN 8.8 g/dl (12.0-15.5); MEAN CORPUSCULAR HEMOGLOBIN 23.8 pg (27.0-33.0); MEAN CORPUSCULAR HGB CONC 28.2 g/dl (32.0-36.5); MEAN CORPUSCULAR VOLUME 84.3 fl (80.0-96.0); PLATELET COUNT, AUTOMATED 129 10^3/uL (150-450); WHITE BLOOD COUNT 8.4 10^3/uL (4.0-10.0)
[2024-01-14 06:50] LABS: ALBUMIN 2.9 G/DL (3.2-5.2); BILIRUBIN,TOTAL 0.3 MG/DL (0.3-1.2); CREATININE FOR GFR 1.37 MG/DL (0.55-1.30); GLOMERULAR FILTRATION RATE 45.2 (>58); MAGNESIUM LEVEL 2.1 MG/DL (1.8-2.4); POTASSIUM SERUM 3.5 MMOL/L (3.5-5.1); TOTAL PROTEIN 5.9 G/DL (5.7-8.2)
[2024-01-14] MEDS: VENLAFAXINE **XR** 75MG CAPSULE PO SCH (10:36)
[2024-01-14] MEDS: predniSONE 10MG TAB PO SCH (10:37)
[2024-01-14] MEDS: NICOTINE 14 MG/24 HR TRANSDERMAL TD ONE (10:38)
[2024-01-14] MEDS: METHADONE 10MG TAB PO SCH (10:39)
[2024-01-14] MEDS: cefTRIAXone SOD 2 GM in DEXTROSE 5% (D5W) MINI-BAG/ADV 50 ML IV SCH (10:42)
[2024-01-14 12:32] LABS: THYROID STIMULATING HORMONE 117.699 uIU/ML (0.55-4.78)
[2024-01-14] MEDS ORDERED: FLUZONE VACCINE TRIVALENT PF(2024-25) 0.5ML SYRINGE IM.IMMUN ONE (15:00)
[2024-01-14 18:43] VITALS: BP 138/68; TEMP 98.3; O2SAT 100
[2024-01-14 20:00] VITALS: BP 113/74; TEMP 99.4; O2SAT 98
[2024-01-14 20:33] VITALS: BP 118/58
[2024-01-15 03:30] VITALS: BP 111/55; TEMP 98; O2SAT 91
[2024-01-15 06:55] LABS: HEMATOCRIT 28.1 % (36.0-47.0); HEMOGLOBIN 8.3 g/dl (12.0-15.5); MEAN CORPUSCULAR HEMOGLOBIN 24.1 pg (27.0-33.0); MEAN CORPUSCULAR HGB CONC 29.5 g/dl (32.0-36.5); MEAN CORPUSCULAR VOLUME 81.7 fl (80.0-96.0); PLATELET COUNT, AUTOMATED 114 10^3/uL (150-450); RED BLOOD COUNT 3.44 10^6/uL (4.00-5.40); WHITE BLOOD COUNT 8.1 10^3/uL (4.0-10.0)
[2024-01-15 07:18] LABS: ALBUMIN 2.8 G/DL (3.2-5.2); CALCIUM LEVEL 7.8 MG/DL (8.5-10.1); CREATININE FOR GFR 1.34 MG/DL (0.55-1.30); GLOMERULAR FILTRATION RATE 46.4 (>58); PHOSPHORUS LEVEL 2.2 MG/DL (2.5-4.9); POTASSIUM SERUM 3.5 MMOL/L (3.5-5.1)
[2024-01-15 07:38] LABS: ANISOCYTOSIS 2+; HYPOCHROMASIA 2+; LYMPHOCYTES 4 % (16-44); MONOCYTES 1 % (0-5); NEUTROPHILS 81 % (28-66)
[2024-01-15 07:39] LABS: PLATELET ESTIMATE DECREASED (NORMAL)
[2024-01-15] MEDS: FLUZONE VACCINE TRIVALENT PF(2024-25) 0.5ML SYRINGE IM.IMMUN ONE (09:00)
[2024-01-15] MEDS: VANCOMYCIN 1,000 MG/200 ML IV BAG *LOAD IV ONE (09:13)
[2024-01-15 12:32] VITALS: BP 97/62; TEMP 98.2; O2SAT 98
[2024-01-15] MEDS: CEFDINIR 300 MG CAP (OMNICEF) PO SCH (13:18)
[2024-01-15] MEDS: VANCOMYCIN/WATER FOR INJ 1,000 MG in IV 1 EA IV SCH (13:18)
[2024-01-15 17:22] VITALS: BP 121/57; TEMP 101.2; O2SAT 92
[2024-01-18 21:42] LABS: URINE STREP PNEUMONIAE ANTIGEN NOT DETECTED (NOT DETECT)
== END 2024-01-15 19:20 | disposition short-term general hospital (02) | DRG 383 ==
LOC: M ED 07:27 → EDBD 07:27 → UNDOADMOB 07:28 → M ED INP 07:28 → OBSVTOIN 14:16 → INTOOBSV 14:16 → M ED INP 01-14 18:30 → M MS4PR 01-14 18:30 → OBSVTOIN 01-15 14:16 → M ICU 01-15 17:22 → M MS4PR 01-15 17:22 → UNDODISIN 01-15 19:20
PROVIDERS: ADMIT Internal Medicine; ATTEND Internal Medicine
PROC: B246ZZZ Ultrasonography of Right and Left Heart (ICD-10-PCS; principal; 2024-01-13)
DX: L03.115 Cellulitis of right lower limb (principal); J38.6 Stenosis of larynx; F25.9 Schizoaffective disorder, unspecified; I87.2 Venous insufficiency (chronic) (peripheral); R09.02 Hypoxemia; J98.11 Atelectasis; E03.9 Hypothyroidism, unspecified; N18.9 Chronic kidney disease, unspecified; J95.01 Hemorrhage from tracheostomy stoma; J45.909 Unspecified asthma, uncomplicated; L03.116 Cellulitis of left lower limb; I89.0 Lymphedema, not elsewhere classified; G89.29 Other chronic pain; J95.03 Malfunction of tracheostomy stoma; F32.A Depression, unspecified; F41.1 Generalized anxiety disorder; F60.3 Borderline personality disorder; F43.10 Post-traumatic stress disorder, unspecified; F11.21 Opioid dependence, in remission; G47.33 Obstructive sleep apnea (adult) (pediatric); Z86.14 Personal history of Methicillin resistant Staphylococcus aureus infection; Z79.890 Hormone replacement therapy; Z79.899 Other long term (current) drug therapy; Y83.1 Surgical operation with implant of artificial internal device as the cause of abnormal reaction of the patient, or of later complication, without mention of misadventure at the time of the procedure

== ENCOUNTER 2024-02-11 13:29 | Inpatient (IN) | payer OTHER ==
[~2024-02-11] VITALS: Ht 160 cm; Wt 115.6 kg
[~2024-02-11 13:29] MED LIST changes: +HYDR50TA70 NG; +LEVO200T31 NG; -LEVO200T31 PO; +METH10CO NG; +PRAZ1CAP NG
[2024-02-12] VITALS (19 sets, daily range): BP systolic 104–153; BP diastolic 55–94; TEMP 98–99.9; O2SAT 87–96
[2024-02-12] MEDS ORDERED: SERO50TA4 PO (12:21)
[2024-02-12] MEDS ORDERED: PROT40IN4 IV (12:21)
[2024-02-12] MEDS ORDERED: VENL37TA NG (12:21)
[2024-02-12] MEDS ORDERED: SENN-188 NG (12:21)
[2024-02-12] MEDS ORDERED: [UNRECOGNIZED DRUG - CODE] IV (12:21)
[2024-02-12] MEDS ORDERED: GABA-1172 NG (12:21)
[2024-02-12] MEDS ORDERED: NALO25TA NG (12:21)
[2024-02-12] MEDS ORDERED: OLAN7.5T8 NG (12:21)
[2024-02-12] MEDS ORDERED: MIRA3350 NG (12:21)
[2024-02-12 13:25] LABS: HEMATOCRIT 26.8 % (36.0-47.0); MEAN CORPUSCULAR HEMOGLOBIN 26.3 pg (27.0-33.0); MEAN CORPUSCULAR HGB CONC 29.9 g/dl (32.0-36.5); MEAN CORPUSCULAR VOLUME 88.2 fl (80.0-96.0); PLATELET COUNT, AUTOMATED 229 10^3/uL (150-450); RED BLOOD COUNT 3.04 10^6/uL (4.00-5.40); WHITE BLOOD COUNT 6.1 10^3/uL (4.0-10.0)
[2024-02-12] MEDS: ONDANSETRON 4MG 2ML VIAL IV ONE ×2 (13:25→21:34)
[2024-02-12] MEDS ORDERED: TOPI100T9 PO (13:28)
[2024-02-12] MEDS ORDERED: ERGO500029 PO (13:28)
[2024-02-12] MEDS ORDERED: SPIR-10 PO (13:28)
[2024-02-12] MEDS ORDERED: HOME MED LIST COMPLETE! XX SCH (13:30)
[2024-02-12] MEDS ORDERED: POTA20PI IV (13:31)
[2024-02-12 13:54] LABS: ALBUMIN 2.3 G/DL (3.2-5.2); ALKALINE PHOSPHATASE 994 U/L (35-104); ALT/SGPT 286 U/L (7.0-40); AST/SGOT 408 U/L (<34); BLOOD UREA NITROGEN 27 MG/DL (9-23); CALCIUM LEVEL 9.8 MG/DL (8.5-10.1); CARBON DIOXIDE LEVEL 34 MMOL/L (20-31); CHLORIDE LEVEL 107 MMOL/L (98-107); CREATININE FOR GFR 0.84 MG/DL (0.55-1.30); EOSINOPHILS 6 % (0-3); GLOMERULAR FILTRATION RATE > 60.0 (>58); GLUCOSE, FASTING 144 MG/DL (60-100); LYMPHOCYTES 19 % (16-44); MONOCYTES 4 % (0-5); NEUTROPHILS 60 % (28-66); PHOSPHORUS LEVEL 2.8 MG/DL (2.5-4.9); PLATELET ESTIMATE NORMAL (NORMAL); POTASSIUM SERUM 4.5 MMOL/L (3.5-5.1); SODIUM LEVEL 147 MMOL/L (136-145); TOTAL PROTEIN 6.8 G/DL (5.7-8.2)
[2024-02-12 13:55] LABS: HYPOCHROMASIA 1+; POLYCHROMASIA 1+
[2024-02-12 14:24] LABS: BILIRUBIN,DIRECT 2.1 MG/DL (<0.4)
[2024-02-12] MEDS: buPROPion **XL** TABLET 150MG (WELLBUTRIN XL) PO SCH (15:16)
[2024-02-12] MEDS: SPIRONOLACTONE 25 MG TAB PO SCH (15:47)
[2024-02-12] MEDS: GABAPENTIN 300 MG CAP NG SCH (15:47)
[2024-02-12] MEDS: OLANZapine 2.5MG TABLET NG SCH (15:48)
[2024-02-12] MEDS: hydrOXYzine 50 MG TAB NG SCH (15:48)
[2024-02-12] MEDS: METHADONE 10MG TAB NG ONE (15:48)
[2024-02-12] MEDS: LEVOTHYROXINE 100MCG (0.1MG) 5ML SDV PF (SOLUTION FORM) IV SCH (15:48)
[2024-02-12] MEDS: PANTOPRAZOLE 40MG VIAL IV SCH (15:49)
[2024-02-12] MEDS: D5W 1,000 ML IV SCH (15:49)
[2024-02-12] MEDS: FUROSEMIDE 100MG/10ML VIAL IV ONE (16:33)
[2024-02-12 18:23] LABS: PROCALCITONIN 0.28 ng/ml
[2024-02-12] MEDS: CARBAMIDE PEROXIDE 6.5% OTIC SOLN 15ML AU SCH (20:45)
[2024-02-12] MEDS: VENLAFAXINE 37.5 MG TAB NG SCH (20:45)
[2024-02-12] MEDS: QUEtiapine FUMARATE 25 MG TAB NG SCH (20:46)
[2024-02-12] MEDS: PRAZOSIN 1 MG CAP NG SCH (20:46)
[2024-02-12] MEDS: buPROPion 75 MG TAB NG SCH (20:46)
[2024-02-12] MEDS: TOPIRAMATE (TopAMAX) 100 MG TAB PO SCH (20:47)
[2024-02-12] MEDS: traZODone 50 MG TAB PO SCH (20:47)
[2024-02-12] MEDS ORDERED: QUEtiapine FUMERATE XR 50MG TABER PO SCH (21:00)
[2024-02-12] MEDS: ACETAMINOPHEN *IV* 1,000 MG in IV 1 EA IV ONE (21:34)
[2024-02-13] VITALS (24 sets, daily range): BP systolic 108–149; BP diastolic 58–91; TEMP 97.1–98.6; O2SAT 88–100
[2024-02-13 06:45] LABS: ALBUMIN 2.5 G/DL (3.2-5.2); ALKALINE PHOSPHATASE 1061 U/L (35-104); ALT/SGPT 456 U/L (7.0-40); AST/SGOT 626 U/L (<34); BILIRUBIN,TOTAL 4.7 MG/DL (0.3-1.2); BLOOD UREA NITROGEN 20 MG/DL (9-23); CARBON DIOXIDE LEVEL 39 MMOL/L (20-31); CHLORIDE LEVEL 100 MMOL/L (98-107); CREATININE FOR GFR 1.01 MG/DL (0.55-1.30); GLOMERULAR FILTRATION RATE > 60.0 (>58); GLUCOSE, FASTING 118 MG/DL (60-100); MAGNESIUM LEVEL 1.8 MG/DL (1.8-2.4); PHOSPHORUS LEVEL 4.5 MG/DL (2.5-4.9); POTASSIUM SERUM 3.5 MMOL/L (3.5-5.1); SODIUM LEVEL 143 MMOL/L (136-145)
[2024-02-13] MEDS: ENOXAPARIN 40MG/0.4ML SYRINGE (J1650 PER 10MG) SC SCH (09:36)
[2024-02-13] MEDS: METHADONE 10MG TAB PO SCH (09:38)
[2024-02-13] MEDS: IBUPROFEN 100MG 5ML SUSP UDC DYE FREE NG PRN (09:44)
[2024-02-14] VITALS (22 sets, daily range): BP systolic 108–163; BP diastolic 58–94; TEMP 97–99.1; O2SAT 91–99
[2024-02-14 04:41] LABS: HEMATOCRIT 30.5 % (36.0-47.0); HEMOGLOBIN 8.9 g/dl (12.0-15.5); MEAN CORPUSCULAR HEMOGLOBIN 26.6 pg (27.0-33.0); MEAN CORPUSCULAR HGB CONC 29.2 g/dl (32.0-36.5); PLATELET COUNT, AUTOMATED 223 10^3/uL (150-450); RED BLOOD COUNT 3.35 10^6/uL (4.00-5.40); WHITE BLOOD COUNT 4.9 10^3/uL (4.0-10.0)
[2024-02-14 05:05] LABS: ALBUMIN 2.8 G/DL (3.2-5.2); ALKALINE PHOSPHATASE 1053 U/L (35-104); ALT/SGPT 512 U/L (7.0-40); AST/SGOT 523 U/L (<34); BILIRUBIN,DIRECT 4.4 MG/DL (<0.4); BILIRUBIN,TOTAL 5.6 MG/DL (0.3-1.2); TOTAL PROTEIN 7.1 G/DL (5.7-8.2)
[2024-02-14 05:11] LABS: ALBUMIN 2.7 G/DL (3.2-5.2); ALKALINE PHOSPHATASE 1000 U/L (35-104); ALT/SGPT 510 U/L (7.0-40); AST/SGOT 522 U/L (<34); BILIRUBIN,TOTAL 6.1 MG/DL (0.3-1.2); BLOOD UREA NITROGEN 16 MG/DL (9-23); CALCIUM LEVEL 10.4 MG/DL (8.5-10.1); CARBON DIOXIDE LEVEL 38 MMOL/L (20-31); CHLORIDE LEVEL 97 MMOL/L (98-107); CREATININE FOR GFR 0.96 MG/DL (0.55-1.30); GLOMERULAR FILTRATION RATE > 60.0 (>58); GLUCOSE, FASTING 104 MG/DL (60-100); MAGNESIUM LEVEL 1.9 MG/DL (1.8-2.4); PHOSPHORUS LEVEL 4.4 MG/DL (2.5-4.9); POTASSIUM SERUM 3.4 MMOL/L (3.5-5.1); SODIUM LEVEL 140 MMOL/L (136-145); TOTAL PROTEIN 7.4 G/DL (5.7-8.2)
[2024-02-14 05:32] LABS: ATYPICAL LYMPH 6 % (0-5); BASOPHILS 1 % (0-1); EOSINOPHILS 11 % (0-3); HYPOCHROMASIA 1+; LYMPHOCYTES 21 % (16-44); MONOCYTES 6 % (0-5); NEUTROPHILS 48 % (28-66); PLATELET ESTIMATE NORMAL (NORMAL); POLYCHROMASIA 1+
[2024-02-14 05:33] LABS: ANISOCYTOSIS 1+; OVALOCYTES 1+; POIKILOCYTOSIS 1+
[2024-02-14 05:34] LABS: TEAR DROP CELLS 1+
[2024-02-14] MEDS: KCL 20MEQ IN 100ML SWI (KRUN) 20 MEQ in IV 1 EA IV ONE (11:46)
[2024-02-14 12:01] LABS: PROCALCITONIN 0.54 ng/ml
[2024-02-14 12:08] LABS: HEPATITIS B SURFACE ANTIGEN NEGATIVE (NEGATIVE)
[2024-02-14 12:29] LABS: HEPATITIS B CORE ANTIBODY IGM NEGATIVE (NEGATIVE); HEPATITIS C VIRUS ABY INDEX 0.02 INDEX (<0.8)
[2024-02-14 12:31] LABS: INR 1.05
[2024-02-14] MEDS ORDERED: IBUPROFEN 600MG TAB PO PRN (12:35)
[2024-02-14] MEDS: IBUPROFEN 600MG TAB PO PRN (13:43)
[2024-02-14] MEDS: ALBUTEROL SULFATE 2.5MG/0.5ML INH NEB SOLN NEB PRN (13:53)
[2024-02-15] VITALS (31 sets, daily range): BP systolic 111–160; BP diastolic 60–86; TEMP 96.8–98.1; O2SAT 82–99
[2024-02-15 04:52] LABS: HEMATOCRIT 28.9 % (36.0-47.0); HEMOGLOBIN 8.7 g/dl (12.0-15.5); MEAN CORPUSCULAR HGB CONC 30.1 g/dl (32.0-36.5); MEAN CORPUSCULAR VOLUME 89.8 fl (80.0-96.0); PLATELET COUNT, AUTOMATED 186 10^3/uL (150-450); RED BLOOD COUNT 3.22 10^6/uL (4.00-5.40); WHITE BLOOD COUNT 5.7 10^3/uL (4.0-10.0)
[2024-02-15 05:21] LABS: ALBUMIN 2.7 G/DL (3.2-5.2); ALKALINE PHOSPHATASE 963 U/L (35-104); ALT/SGPT 424 U/L (7.0-40); AST/SGOT 316 U/L (<34); BILIRUBIN,DIRECT 2.9 MG/DL (<0.4); BILIRUBIN,TOTAL 3.7 MG/DL (0.3-1.2); BLOOD UREA NITROGEN 11 MG/DL (9-23); CARBON DIOXIDE LEVEL 37 MMOL/L (20-31); CHLORIDE LEVEL 97 MMOL/L (98-107); CREATININE FOR GFR 1.01 MG/DL (0.55-1.30); GLOMERULAR FILTRATION RATE > 60.0 (>58); GLUCOSE, FASTING 170 MG/DL (60-100); MAGNESIUM LEVEL 1.8 MG/DL (1.8-2.4); PHOSPHORUS LEVEL 4.1 MG/DL (2.5-4.9); POTASSIUM SERUM 3.4 MMOL/L (3.5-5.1); SODIUM LEVEL 139 MMOL/L (136-145); TOTAL PROTEIN 6.7 G/DL (5.7-8.2)
[2024-02-15 05:23] LABS: ATYPICAL LYMPH 1 % (0-5); BASOPHILS 1 % (0-1); EOSINOPHILS 11 % (0-3); LYMPHOCYTES 26 % (16-44); MONOCYTES 9 % (0-5); NEUTROPHILS 50 % (28-66)
[2024-02-15 05:24] LABS: PLATELET ESTIMATE NORMAL (NORMAL)
[2024-02-15 05:27] LABS: ANISOCYTOSIS 2+; OVALOCYTES 1+; POIKILOCYTOSIS 1+; POLYCHROMASIA 1+
[2024-02-15] MEDS: POTASSIUM CHLORIDE 10MEQ SR TABLET PO ONE (10:33)
[2024-02-15 13:07] LABS: THYROID STIMULATING HORMONE 0.821 uIU/ML (0.55-4.78)
[2024-02-16] VITALS (8 sets, daily range): BP systolic 140–142; BP diastolic 65–70; TEMP 97.7–97.8; O2SAT 91–98
[2024-02-16 05:43] LABS: BASO # 0.1 10^3/uL (0.0-0.2); BASO % 0.9 % (0.0-1.0); EOS # 0.4 10^3/uL (0.0-0.5); EOS % 6.5 % (0.0-3.0); HEMATOCRIT 27.8 % (36.0-47.0); HEMOGLOBIN 8.3 g/dl (12.0-15.5); LYMPH # 1.4 10^3/uL (1.5-5.0); LYMPH % 21.2 % (24.0-44.0); MEAN CORPUSCULAR HGB CONC 29.9 g/dl (32.0-36.5); MEAN CORPUSCULAR VOLUME 90.6 fl (80.0-96.0); MONO # 0.5 10^3/uL (0.0-0.8); MONO % 7.9 % (2.0-8.0); NEUTROPHILS # 3.5 10^3/uL (1.5-8.5); NEUTROPHILS % 54.7 % (36.0-66.0); PLATELET COUNT, AUTOMATED 154 10^3/uL (150-450); RED BLOOD COUNT 3.07 10^6/uL (4.00-5.40); WHITE BLOOD COUNT 6.5 10^3/uL (4.0-10.0)
[2024-02-16 06:14] LABS: ALBUMIN 2.6 G/DL (3.2-5.2); ALKALINE PHOSPHATASE 825 U/L (35-104); ALT/SGPT 319 U/L (7.0-40); AST/SGOT 150 U/L (<34); BILIRUBIN,DIRECT 1.4 MG/DL (<0.4); BLOOD UREA NITROGEN 9 MG/DL (9-23); CALCIUM LEVEL 9.8 MG/DL (8.5-10.1); CARBON DIOXIDE LEVEL 37 MMOL/L (20-31); CHLORIDE LEVEL 98 MMOL/L (98-107); CREATININE FOR GFR 0.92 MG/DL (0.55-1.30); GLOMERULAR FILTRATION RATE > 60.0 (>58); GLUCOSE, FASTING 206 MG/DL (60-100); POTASSIUM SERUM 3.2 MMOL/L (3.5-5.1); SODIUM LEVEL 138 MMOL/L (136-145); TOTAL PROTEIN 6.8 G/DL (5.7-8.2)
[2024-02-16] MEDS: LEVOTHYROXINE 100MCG TABLET (0.1MG) PO SCH (06:15)
[2024-02-16] MEDS ORDERED: KCL 10MEQ/100ML SWI (KRUN) 10 MEQ in IV 1 EA IV SCH (07:20)
[2024-02-16] MEDS: POTASSIUM CHLORIDE 10MEQ SR TABLET PO ONE (08:14)
[2024-02-18 07:08] LABS: EBV PCR QUANTITATIVE 636 copies/mL; EBV SOURCE Whole Blood
[2024-02-18 15:57] LABS: CMV QUANT DNA PCR (PLASMA) Not Detected; CMV SOURCE Whole Blood; log10 CMV QN DNA P1 Not Detected log IU/mL
== END 2024-02-16 09:20 | disposition short-term general hospital (02) | DRG 133 ==
LOC: M ICU 02-12 10:30 → M PCU 02-15 11:07
PROVIDERS: ADMIT Internal Medicine Pulmonary Disease; ATTEND Internal Medicine
PROC: 5A1935Z Respiratory Ventilation, Less than 24 Consecutive Hours (ICD-10-PCS; principal; 2024-02-12)
DX: J96.21 Acute and chronic respiratory failure with hypoxia (principal); J38.6 Stenosis of larynx; Z93.0 Tracheostomy status; E66.2 Morbid (severe) obesity with alveolar hypoventilation; F25.9 Schizoaffective disorder, unspecified; K80.50 Calculus of bile duct without cholangitis or cholecystitis without obstruction; L03.115 Cellulitis of right lower limb; L03.116 Cellulitis of left lower limb; Z68.41 Body mass index [BMI] 40.0-44.9, adult; A08.4 Viral intestinal infection, unspecified; F32.A Depression, unspecified; F41.1 Generalized anxiety disorder; F60.3 Borderline personality disorder; F43.10 Post-traumatic stress disorder, unspecified; J45.909 Unspecified asthma, uncomplicated; D86.9 Sarcoidosis, unspecified; R74.01 Elevation of levels of liver transaminase levels; E03.9 Hypothyroidism, unspecified; E80.6 Other disorders of bilirubin metabolism; R94.5 Abnormal results of liver function studies; G89.29 Other chronic pain; D64.9 Anemia, unspecified; Z87.891 Personal history of nicotine dependence; Z91.51 Personal history of suicidal behavior; Z79.890 Hormone replacement therapy; Z79.899 Other long term (current) drug therapy; Z79.891 Long term (current) use of opiate analgesic

== ENCOUNTER 2024-02-19 15:07 | Inpatient (IN) | payer OTHER ==
[~2024-02-19] VITALS: Ht 160 cm; Wt 106.8 kg
[~2024-02-19 15:07] MED LIST changes: +ERGO500029 PO; -LEVO200T31 NG; +LEVO200T31 PO; -METH10CO NG; +MIRA3350 PO; +NALO25TA PO; +POTA20PI IV; -PRAZ1CAP NG; +PROT40IN4 IV; +SENN-188 NG; +SERO50TA4 PO; +SPIR-10 PO; +TOPI100T9 PO; +VENL37TA PO; +[UNRECOGNIZED DRUG - CODE] IV
[2024-02-20] MEDS ORDERED: UNRESOLVED CLARIFICATION ENTRY XX SCH (09:00)
[2024-02-20 12:15] VITALS: BP 130/78; TEMP 97.4; O2SAT 100
[2024-02-20] MEDS: ACETAMINOPHEN 325 MG TAB PO ONE (13:40)
[2024-02-20] MEDS ORDERED: ALBUTEROL 90 MCG/ACT 8GM HFA INHALER INH PRN (15:00)
[2024-02-20] MEDS ORDERED: IBUP-359 PO (15:04)
[2024-02-20] MEDS ORDERED: HOME MED LIST COMPLETE! XX SCH (15:05)
[2024-02-20 15:19] VITALS: BP 116/67; TEMP 97.1; O2SAT 98
[2024-02-20 16:31] LABS: BASO % 0.6 % (0.0-1.0); EOS # 0.4 10^3/uL (0.0-0.5); EOS % 7.1 % (0.0-3.0); HEMATOCRIT 26.7 % (36.0-47.0); HEMOGLOBIN 7.9 g/dl (12.0-15.5); LYMPH # 1.3 10^3/uL (1.5-5.0); LYMPH % 20.7 % (24.0-44.0); MEAN CORPUSCULAR HEMOGLOBIN 27.1 pg (27.0-33.0); MEAN CORPUSCULAR HGB CONC 29.6 g/dl (32.0-36.5); MEAN CORPUSCULAR VOLUME 91.8 fl (80.0-96.0); MONO # 0.4 10^3/uL (0.0-0.8); MONO % 6.7 % (2.0-8.0); NEUTROPHILS # 3.9 10^3/uL (1.5-8.5); NEUTROPHILS % 62.2 % (36.0-66.0); PLATELET COUNT, AUTOMATED 120 10^3/uL (150-450); RED BLOOD COUNT 2.91 10^6/uL (4.00-5.40); WHITE BLOOD COUNT 6.2 10^3/uL (4.0-10.0)
[2024-02-20] MEDS: OLANZapine 2.5MG TABLET PO SCH (16:53)
[2024-02-20] MEDS: GABAPENTIN 300 MG CAP PO SCH (16:53)
[2024-02-20 16:57] LABS: ALBUMIN 2.7 G/DL (3.2-5.2); ALKALINE PHOSPHATASE 417 U/L (35-104); ALT/SGPT 81 U/L (7.0-40); AST/SGOT 35 U/L (<34); BILIRUBIN,TOTAL 1.1 MG/DL (0.3-1.2); BLOOD UREA NITROGEN 10 MG/DL (9-23); CALCIUM LEVEL 9.6 MG/DL (8.5-10.1); CARBON DIOXIDE LEVEL 29 MMOL/L (20-31); CHLORIDE LEVEL 108 MMOL/L (98-107); CREATININE FOR GFR 0.94 MG/DL (0.55-1.30); GLOMERULAR FILTRATION RATE > 60.0 (>58); GLUCOSE, FASTING 99 MG/DL (60-100); MAGNESIUM LEVEL 1.5 MG/DL (1.8-2.4); POTASSIUM SERUM 3.6 MMOL/L (3.5-5.1); SODIUM LEVEL 143 MMOL/L (136-145); TOTAL PROTEIN 6.6 G/DL (5.7-8.2)
[2024-02-20] MEDS: oxyCODONE 5MG TAB PO PRN (17:37)
[2024-02-20 19:52] VITALS: BP 155/70; TEMP 97.9; O2SAT 98
[2024-02-20] MEDS: ENOXAPARIN 40MG/0.4ML SYRINGE (J1650 PER 10MG) SC SCH (20:23)
[2024-02-20] MEDS: MIRALAX *UNIT DOSE* 17GM PACKET PO SCH (20:23)
[2024-02-20] MEDS: SENNA 8.6 MG TAB (SENOKOT) PO SCH (20:23)
[2024-02-20] MEDS: traZODone 50 MG TAB PO SCH (20:35)
[2024-02-20] MEDS: VENLAFAXINE 37.5 MG TAB PO SCH (20:35)
[2024-02-20] MEDS: QUEtiapine FUMERATE XR 50MG TABER PO SCH (20:35)
[2024-02-20] MEDS: TOPIRAMATE (TopAMAX) 100 MG TAB PO SCH (20:35)
[2024-02-20] MEDS: PRAZOSIN 1 MG CAP PO SCH (20:36)
[2024-02-20] MEDS: IBUPROFEN 800 MG TAB PO PRN (20:38)
[2024-02-20 23:48] VITALS: BP 126/61; TEMP 96.5; O2SAT 100
[2024-02-21] VITALS (11 sets, daily range): BP systolic 114–153; BP diastolic 61–91; TEMP 96.8–98.8; O2SAT 93–100
[2024-02-21 06:23] LABS: BASO % 0.7 % (0.0-1.0); EOS # 0.5 10^3/uL (0.0-0.5); EOS % 8.7 % (0.0-3.0); HEMATOCRIT 24.1 % (36.0-47.0); LYMPH # 1.5 10^3/uL (1.5-5.0); LYMPH % 24.8 % (24.0-44.0); MEAN CORPUSCULAR HEMOGLOBIN 26.3 pg (27.0-33.0); MEAN CORPUSCULAR VOLUME 90.6 fl (80.0-96.0); MONO # 0.5 10^3/uL (0.0-0.8); MONO % 8.2 % (2.0-8.0); NEUTROPHILS # 3.2 10^3/uL (1.5-8.5); PLATELET COUNT, AUTOMATED 120 10^3/uL (150-450); RED BLOOD COUNT 2.66 10^6/uL (4.00-5.40); WHITE BLOOD COUNT 5.9 10^3/uL (4.0-10.0)
[2024-02-21] MEDS: LEVOTHYROXINE 100MCG TABLET (0.1MG) PO SCH (06:23)
[2024-02-21 06:50] LABS: ALBUMIN 2.3 G/DL (3.2-5.2); ALKALINE PHOSPHATASE 331 U/L (35-104); ALT/SGPT 59 U/L (7.0-40); AST/SGOT 23 U/L (<34); BILIRUBIN,TOTAL 0.8 MG/DL (0.3-1.2); BLOOD UREA NITROGEN 11 MG/DL (9-23); CALCIUM LEVEL 9.1 MG/DL (8.5-10.1); CARBON DIOXIDE LEVEL 29 MMOL/L (20-31); CHLORIDE LEVEL 109 MMOL/L (98-107); CREATININE FOR GFR 1.03 MG/DL (0.55-1.30); GLOMERULAR FILTRATION RATE > 60.0 (>58); GLUCOSE, FASTING 98 MG/DL (60-100); MAGNESIUM LEVEL 1.5 MG/DL (1.8-2.4); POTASSIUM SERUM 3.6 MMOL/L (3.5-5.1); SODIUM LEVEL 143 MMOL/L (136-145); TOTAL PROTEIN 5.5 G/DL (5.7-8.2)
[2024-02-21] MEDS: buPROPion **XL** TABLET 150MG (WELLBUTRIN XL) PO SCH (09:03)
[2024-02-21] MEDS: MAG SULF 1GM/100ML (MAG RUN) 1 GM in IV 1 EA IV SCH (09:03)
[2024-02-21] MEDS: METHADONE 10MG TAB PO SCH (09:03)
[2024-02-21] MEDS: SPIRONOLACTONE 25 MG TAB PO SCH (09:04)
[2024-02-21] MEDS: hydrOXYzine 50 MG TAB NG PRN (18:40)
[2024-02-21] MEDS: SODIUM CHLORIDE 0.9% INJ 10 ML SYR IV SCH (18:41)
[2024-02-22 04:00] VITALS: BP 135/79; TEMP 98.1; O2SAT 98
[2024-02-22] MEDS: SODIUM CHLORIDE 0.9% INJ 10 ML SYR IV PRN (05:43)
[2024-02-22 06:16] LABS: BASO # 0.1 10^3/uL (0.0-0.2); BASO % 0.7 % (0.0-1.0); EOS # 0.5 10^3/uL (0.0-0.5); EOS % 7.1 % (0.0-3.0); HEMATOCRIT 28.4 % (36.0-47.0); HEMOGLOBIN 8.6 g/dl (12.0-15.5); LYMPH # 1.9 10^3/uL (1.5-5.0); MEAN CORPUSCULAR HGB CONC 30.3 g/dl (32.0-36.5); MONO # 0.5 10^3/uL (0.0-0.8); MONO % 7.1 % (2.0-8.0); NEUTROPHILS # 4.4 10^3/uL (1.5-8.5); NEUTROPHILS % 57.9 % (36.0-66.0); PLATELET COUNT, AUTOMATED 154 10^3/uL (150-450); RED BLOOD COUNT 3.19 10^6/uL (4.00-5.40); WHITE BLOOD COUNT 7.6 10^3/uL (4.0-10.0)
[2024-02-22 06:43] LABS: ALBUMIN 2.8 G/DL (3.2-5.2); ALKALINE PHOSPHATASE 320 U/L (35-104); ALT/SGPT 48 U/L (7.0-40); AST/SGOT 18 U/L (<34); BILIRUBIN,TOTAL 0.9 MG/DL (0.3-1.2); BLOOD UREA NITROGEN 8 MG/DL (9-23); CALCIUM LEVEL 9.1 MG/DL (8.5-10.1); CARBON DIOXIDE LEVEL 30 MMOL/L (20-31); CHLORIDE LEVEL 105 MMOL/L (98-107); CREATININE FOR GFR 0.96 MG/DL (0.55-1.30); GLOMERULAR FILTRATION RATE > 60.0 (>58); GLUCOSE, FASTING 92 MG/DL (60-100); MAGNESIUM LEVEL 1.8 MG/DL (1.8-2.4); POTASSIUM SERUM 3.7 MMOL/L (3.5-5.1); SODIUM LEVEL 142 MMOL/L (136-145); TOTAL PROTEIN 6.7 G/DL (5.7-8.2)
[2024-02-22] MEDS: MAG SULF 1GM/100ML (MAG RUN) 1 GM in IV 1 EA IV ONE (09:09)
[2024-02-22 09:20] VITALS: O2SAT 96
[2024-02-22 12:26] VITALS: BP 124/79; TEMP 97.5; O2SAT 97
[2024-02-22 20:00] VITALS: BP 133/96; TEMP 96.8; O2SAT 90
[2024-02-22 20:09] VITALS: O2SAT 93
[2024-02-23] VITALS (8 sets, daily range): BP systolic 100–139; BP diastolic 67–100; TEMP 96.8–97.9; O2SAT 88–99
[2024-02-23 06:11] LABS: BASO % 0.5 % (0.0-1.0); EOS # 0.5 10^3/uL (0.0-0.5); EOS % 7.3 % (0.0-3.0); HEMATOCRIT 27.7 % (36.0-47.0); HEMOGLOBIN 8.4 g/dl (12.0-15.5); LYMPH # 1.9 10^3/uL (1.5-5.0); LYMPH % 25.3 % (24.0-44.0); MEAN CORPUSCULAR HEMOGLOBIN 26.9 pg (27.0-33.0); MEAN CORPUSCULAR HGB CONC 30.3 g/dl (32.0-36.5); MEAN CORPUSCULAR VOLUME 88.8 fl (80.0-96.0); MONO # 0.5 10^3/uL (0.0-0.8); MONO % 7.3 % (2.0-8.0); NEUTROPHILS # 4.3 10^3/uL (1.5-8.5); NEUTROPHILS % 58.1 % (36.0-66.0); PLATELET COUNT, AUTOMATED 165 10^3/uL (150-450); RED BLOOD COUNT 3.12 10^6/uL (4.00-5.40); WHITE BLOOD COUNT 7.4 10^3/uL (4.0-10.0)
[2024-02-23 06:45] LABS: ALBUMIN 2.5 G/DL (3.2-5.2); ALKALINE PHOSPHATASE 290 U/L (35-104); ALT/SGPT 39 U/L (7.0-40); AST/SGOT 17 U/L (<34); BILIRUBIN,TOTAL 0.9 MG/DL (0.3-1.2); BLOOD UREA NITROGEN 8 MG/DL (9-23); CALCIUM LEVEL 8.9 MG/DL (8.5-10.1); CARBON DIOXIDE LEVEL 31 MMOL/L (20-31); CHLORIDE LEVEL 107 MMOL/L (98-107); CREATININE FOR GFR 0.91 MG/DL (0.55-1.30); GLOMERULAR FILTRATION RATE > 60.0 (>58); GLUCOSE, FASTING 89 MG/DL (60-100); MAGNESIUM LEVEL 1.6 MG/DL (1.8-2.4); POTASSIUM SERUM 3.6 MMOL/L (3.5-5.1); SODIUM LEVEL 141 MMOL/L (136-145); TOTAL PROTEIN 6.1 G/DL (5.7-8.2)
[2024-02-23] MEDS: MAG SULF 1GM/100ML (MAG RUN) 1 GM in IV 1 EA IV SCH (08:14)
[2024-02-23] MEDS ORDERED: ISOVUE-370 76% 100ML VIAL As Ordered ONE (13:42)
[2024-02-23 16:23] LABS: PROCALCITONIN 0.15 ng/ml
[2024-02-23] MEDS: ALBUTEROL SULFATE 2.5MG/0.5ML INH NEB SOLN NEB ONE (16:30)
[2024-02-23] MEDS: IPRATROPIUM 0.02% SOLN 0.5MG 2.5ML NEB NEB ONE (16:30)
[2024-02-23] MEDS ORDERED: IPRATROPIUM 0.5MG/ALBUTEROL 2.5MG INH SOL UD 3ML (DUONEB) NEB PRN (16:45)
[2024-02-23 17:10] LABS: ABG BASE EXCESS -2.9 (-2.0-2.0); ABG HCO3 23.7 MMOL/L (22.0-26.0); ABG O2 SATURATION 85.8 % (95.0-99.0); ABG PARTIAL PRESSURE CO2 49.4 mmHg (35.0-45.0); ABG PARTIAL PRESSURE O2 56.7 mmHg (75.0-100.0); ABG STANDARD HCO3 21.9 MMOL/L. (22.0-26.0); ABG TOTAL CO2 25.2 MMOL/L (22.0-29.0); ABG pH (ARTERIAL) 7.299 UNITS (7.350-7.450)
[2024-02-23] MEDS: FUROSEMIDE 20MG/2ML VIAL IV SCH (17:29)
[2024-02-23] MEDS: methylPREDNISolone 125MG 2ML VIAL IV ONE (17:29)
[2024-02-23] MEDS: MAGNESIUM OXIDE 400MG TAB (MAG-OX) PO SCH (17:30)
[2024-02-23] MEDS: FUROSEMIDE 40MG/4ML VIAL IV ONE (17:35)
[2024-02-23] MEDS: IPRATROPIUM 0.5MG/ALBUTEROL 2.5MG INH SOL UD 3ML (DUONEB) NEB SCH (20:32)
[2024-02-23] MEDS ORDERED: CEFTOLOZANE/TAZOBACTAM 3 GM in D5W 100 ML IV SCH (22:00)
[2024-02-24] VITALS (24 sets, daily range): BP systolic 91–135; BP diastolic 53–77; TEMP 97.6–99.9; O2SAT 81–98
[2024-02-24] MEDS ORDERED: CEFTOLOZANE/TAZOBACTAM 3 GM in D5W 100 ML IV SCH
[2024-02-24] MEDS: MORPHINE 2 MG/ML 1ML VIAL IV ONE (03:51)
[2024-02-24 04:05] LABS: BASO % 0.3 % (0.0-1.0); EOS % 0.2 % (0.0-3.0); HEMOGLOBIN 8.5 g/dl (12.0-15.5); LYMPH # 1.4 10^3/uL (1.5-5.0); LYMPH % 11.7 % (24.0-44.0); MEAN CORPUSCULAR HEMOGLOBIN 27.5 pg (27.0-33.0); MEAN CORPUSCULAR HGB CONC 31.5 g/dl (32.0-36.5); MEAN CORPUSCULAR VOLUME 87.4 fl (80.0-96.0); MONO # 0.7 10^3/uL (0.0-0.8); MONO % 5.8 % (2.0-8.0); NEUTROPHILS # 9.3 10^3/uL (1.5-8.5); NEUTROPHILS % 80.4 % (36.0-66.0); PLATELET COUNT, AUTOMATED 188 10^3/uL (150-450); RED BLOOD COUNT 3.09 10^6/uL (4.00-5.40); WHITE BLOOD COUNT 11.5 10^3/uL (4.0-10.0)
[2024-02-24 04:47] LABS: ALBUMIN 2.6 G/DL (3.2-5.2); ALKALINE PHOSPHATASE 281 U/L (35-104); ALT/SGPT 32 U/L (7.0-40); AST/SGOT 30 U/L (<34); BILIRUBIN,TOTAL 0.9 MG/DL (0.3-1.2); BLOOD UREA NITROGEN 9 MG/DL (9-23); CALCIUM LEVEL 8.9 MG/DL (8.5-10.1); CARBON DIOXIDE LEVEL 31 MMOL/L (20-31); CHLORIDE LEVEL 103 MMOL/L (98-107); GLOMERULAR FILTRATION RATE > 60.0 (>58); GLUCOSE, FASTING 173 MG/DL (60-100); MAGNESIUM LEVEL 1.7 MG/DL (1.8-2.4); SODIUM LEVEL 139 MMOL/L (136-145); TOTAL PROTEIN 6.5 G/DL (5.7-8.2)
[2024-02-24] MEDS: methylPREDNISolone 125MG 2ML VIAL IV SCH (05:45)
[2024-02-24 06:05] LABS: ABG BASE EXCESS 2.9 (-2.0-2.0); ABG O2 SATURATION 96.8 % (95.0-99.0); ABG PARTIAL PRESSURE CO2 45.7 mmHg (35.0-45.0); ABG PARTIAL PRESSURE O2 90.5 mmHg (75.0-100.0); ABG STANDARD HCO3 27.1 MMOL/L. (22.0-26.0); ABG TOTAL CO2 29.4 MMOL/L (22.0-29.0); ABG pH (ARTERIAL) 7.405 UNITS (7.350-7.450)
[2024-02-24] MEDS ORDERED: IPRATROPIUM 0.5MG/ALBUTEROL 2.5MG INH SOL UD 3ML (DUONEB) NEB PRN (07:30)
[2024-02-24] MEDS: ALBUTEROL SULFATE 2.5MG/0.5ML INH NEB SOLN NEB SCH (08:00)
[2024-02-24] MEDS: SODIUM CHLORIDE HYPERTONIC 3% 4ML NEB SOL INH SCH (08:27)
[2024-02-24] MEDS ORDERED: FUROSEMIDE 20MG/2ML VIAL IV SCH (09:00)
[2024-02-24] MEDS: FUROSEMIDE 20MG/2ML VIAL IV SCH (09:38)
[2024-02-24] MEDS: MAG SULF 1GM/100ML (MAG RUN) 1 GM in IV 1 EA IV SCH (09:41)
[2024-02-24] MEDS: methylPREDNISolone 40MG 1ML VIAL IV SCH (18:06)
[2024-02-25] VITALS (21 sets, daily range): BP systolic 88–167; BP diastolic 54–75; TEMP 98–101.6; O2SAT 89–98
[2024-02-25 05:39] LABS: BASO % 0.4 % (0.0-1.0); EOS # 0.1 10^3/uL (0.0-0.5); EOS % 0.8 % (0.0-3.0); HEMATOCRIT 27.6 % (36.0-47.0); HEMOGLOBIN 8.6 g/dl (12.0-15.5); LYMPH # 1.5 10^3/uL (1.5-5.0); LYMPH % 17.9 % (24.0-44.0); MEAN CORPUSCULAR HEMOGLOBIN 27.6 pg (27.0-33.0); MEAN CORPUSCULAR HGB CONC 31.2 g/dl (32.0-36.5); MEAN CORPUSCULAR VOLUME 88.5 fl (80.0-96.0); MONO # 0.5 10^3/uL (0.0-0.8); MONO % 6.3 % (2.0-8.0); NEUTROPHILS # 6.2 10^3/uL (1.5-8.5); NEUTROPHILS % 73.2 % (36.0-66.0); PLATELET COUNT, AUTOMATED 196 10^3/uL (150-450); RED BLOOD COUNT 3.12 10^6/uL (4.00-5.40); WHITE BLOOD COUNT 8.5 10^3/uL (4.0-10.0)
[2024-02-25 06:02] LABS: ALBUMIN 2.8 G/DL (3.2-5.2); ALKALINE PHOSPHATASE 246 U/L (35-104); ALT/SGPT 25 U/L (7.0-40); AST/SGOT 17 U/L (<34); BILIRUBIN,TOTAL 0.8 MG/DL (0.3-1.2); BLOOD UREA NITROGEN 15 MG/DL (9-23); CALCIUM LEVEL 9.4 MG/DL (8.5-10.1); CARBON DIOXIDE LEVEL 31 MMOL/L (20-31); CHLORIDE LEVEL 106 MMOL/L (98-107); CREATININE FOR GFR 1.03 MG/DL (0.55-1.30); GLOMERULAR FILTRATION RATE > 60.0 (>58); GLUCOSE, FASTING 104 MG/DL (60-100); MAGNESIUM LEVEL 1.9 MG/DL (1.8-2.4); SODIUM LEVEL 144 MMOL/L (136-145); TOTAL PROTEIN 6.5 G/DL (5.7-8.2)
[2024-02-25] MEDS: KCL 20MEQ IN 100ML SWI (KRUN) 20 MEQ in IV 1 EA IV ONE (06:47)
[2024-02-25] MEDS: KCL 20MEQ IN 100ML SWI (KRUN) 20 MEQ in IV 1 EA IV SCH (10:28)
[2024-02-25] MEDS ORDERED: KCL 20MEQ IN 100ML SWI (KRUN) 20 MEQ in IV 1 EA IV ONE (11:00)
[2024-02-25 15:28] LABS: BLOOD UREA NITROGEN 17 MG/DL (9-23); CALCIUM LEVEL 9.4 MG/DL (8.5-10.1); CARBON DIOXIDE LEVEL 29 MMOL/L (20-31); CHLORIDE LEVEL 98 MMOL/L (98-107); CREATININE FOR GFR 1.01 MG/DL (0.55-1.30); GLOMERULAR FILTRATION RATE > 60.0 (>58); GLUCOSE, FASTING 126 MG/DL (60-100); POTASSIUM SERUM 4.3 MMOL/L (3.5-5.1); SODIUM LEVEL 134 MMOL/L (136-145)
[2024-02-25] MEDS: ACETAMINOPHEN 325 MG TAB PO PRN (16:25)
[2024-02-25] MEDS ORDERED: VANCOMYCIN/WATER FOR INJ 750 MG in IV 1 EA IV SCH (18:05)
[2024-02-25] MEDS: VANCOMYCIN 1,000 MG/200 ML IV BAG *LOAD IV ONE (18:47)
[2024-02-25] MEDS: CEFTOLOZANE/TAZOBACTAM 3 GM in D5W 100 ML IV SCH (21:01)
[2024-02-26] VITALS (25 sets, daily range): BP systolic 106–126; BP diastolic 53–85; TEMP 96.6–98.9; O2SAT 89–99
[2024-02-26] MEDS: VANCOMYCIN 1,000MG/200 ML IV BAG IV SCH (00:07)
[2024-02-26 05:25] LABS: BASO % 0.3 % (0.0-1.0); EOS # 0.1 10^3/uL (0.0-0.5); EOS % 1.2 % (0.0-3.0); HEMATOCRIT 27.3 % (36.0-47.0); HEMOGLOBIN 8.4 g/dl (12.0-15.5); LYMPH # 1.2 10^3/uL (1.5-5.0); LYMPH % 16.7 % (24.0-44.0); MEAN CORPUSCULAR HEMOGLOBIN 26.8 pg (27.0-33.0); MEAN CORPUSCULAR HGB CONC 30.8 g/dl (32.0-36.5); MEAN CORPUSCULAR VOLUME 87.2 fl (80.0-96.0); MONO # 0.6 10^3/uL (0.0-0.8); MONO % 8.6 % (2.0-8.0); NEUTROPHILS # 5.3 10^3/uL (1.5-8.5); NEUTROPHILS % 72.1 % (36.0-66.0); PLATELET COUNT, AUTOMATED 165 10^3/uL (150-450); RED BLOOD COUNT 3.13 10^6/uL (4.00-5.40); WHITE BLOOD COUNT 7.4 10^3/uL (4.0-10.0)
[2024-02-26 06:51] LABS: ALBUMIN 2.9 G/DL (3.2-5.2); ALKALINE PHOSPHATASE 223 U/L (35-104); ALT/SGPT 24 U/L (7.0-40); AST/SGOT 14 U/L (<34); BILIRUBIN,TOTAL 0.9 MG/DL (0.3-1.2); BLOOD UREA NITROGEN 18 MG/DL (9-23); CALCIUM LEVEL 9.7 MG/DL (8.5-10.1); CARBON DIOXIDE LEVEL 25 MMOL/L (20-31); CHLORIDE LEVEL 106 MMOL/L (98-107); CREATININE FOR GFR 0.95 MG/DL (0.55-1.30); GLOMERULAR FILTRATION RATE > 60.0 (>58); GLUCOSE, FASTING 134 MG/DL (60-100); MAGNESIUM LEVEL 1.9 MG/DL (1.8-2.4); POTASSIUM SERUM 3.7 MMOL/L (3.5-5.1); SODIUM LEVEL 141 MMOL/L (136-145); TOTAL PROTEIN 6.8 G/DL (5.7-8.2)
[2024-02-26] MEDS: FUROSEMIDE 20MG/2ML VIAL IV SCH (11:08)
[2024-02-26] MEDS: PANTOPRAZOLE 40MG VIAL IV SCH (11:08)
[2024-02-26] MEDS: VANCOMYCIN 750MG/150 ML IV BAG IV SCH (12:56)
[2024-02-27] VITALS (16 sets, daily range): BP systolic 118–124; BP diastolic 57–80; TEMP 97.5–98; O2SAT 89–99
[2024-02-27 06:05] LABS: BASO % 0.4 % (0.0-1.0); EOS # 0.2 10^3/uL (0.0-0.5); EOS % 2.1 % (0.0-3.0); HEMATOCRIT 29.3 % (36.0-47.0); HEMOGLOBIN 8.8 g/dl (12.0-15.5); LYMPH # 1.6 10^3/uL (1.5-5.0); LYMPH % 17.2 % (24.0-44.0); MEAN CORPUSCULAR VOLUME 89.9 fl (80.0-96.0); MONO # 0.7 10^3/uL (0.0-0.8); MONO % 7.5 % (2.0-8.0); NEUTROPHILS # 6.6 10^3/uL (1.5-8.5); NEUTROPHILS % 70.9 % (36.0-66.0); PLATELET COUNT, AUTOMATED 199 10^3/uL (150-450); RED BLOOD COUNT 3.26 10^6/uL (4.00-5.40); WHITE BLOOD COUNT 9.3 10^3/uL (4.0-10.0)
[2024-02-27 06:25] LABS: ALBUMIN 2.9 G/DL (3.2-5.2); ALKALINE PHOSPHATASE 211 U/L (35-104); ALT/SGPT 31 U/L (7.0-40); AST/SGOT 25 U/L (<34); BILIRUBIN,TOTAL 0.7 MG/DL (0.3-1.2); BLOOD UREA NITROGEN 18 MG/DL (9-23); CARBON DIOXIDE LEVEL 28 MMOL/L (20-31); CHLORIDE LEVEL 105 MMOL/L (98-107); GLOMERULAR FILTRATION RATE > 60.0 (>58); GLUCOSE, FASTING 77 MG/DL (60-100); POTASSIUM SERUM 3.5 MMOL/L (3.5-5.1); SODIUM LEVEL 142 MMOL/L (136-145); TOTAL PROTEIN 7.1 G/DL (5.7-8.2)
[2024-02-27] MEDS: VITAMIN D 50,000 UNITS CAPSULE (ERGOCALCIFEROL 1.25MG) PO SCH (08:26)
[2024-02-27] MEDS: predniSONE 10MG TAB PO SCH (08:27)
[2024-02-27] MEDS: VANCOMYCIN HCL 500 MG in DEXTROSE 5% (D5W) MINI-BAG PLU 100 ML IV ONE (16:56)
[2024-02-28] VITALS (17 sets, daily range): BP systolic 119–122; BP diastolic 60–83; TEMP 97.4–98.9; O2SAT 91–97
[2024-02-28 05:35] LABS: VANCOMYCIN RANDOM 19.6 UG/ML
[2024-02-28] MEDS: VANCOMYCIN 1,250 MG/250 ML IV BAG IV SCH (08:21)
[2024-02-28 08:41] LABS: BASO % 0.3 % (0.0-1.0); EOS # 0.5 10^3/uL (0.0-0.5); EOS % 4.1 % (0.0-3.0); HEMATOCRIT 31.2 % (36.0-47.0); HEMOGLOBIN 9.6 g/dl (12.0-15.5); LYMPH # 1.5 10^3/uL (1.5-5.0); LYMPH % 13.1 % (24.0-44.0); MEAN CORPUSCULAR HEMOGLOBIN 27.6 pg (27.0-33.0); MEAN CORPUSCULAR HGB CONC 30.8 g/dl (32.0-36.5); MEAN CORPUSCULAR VOLUME 89.7 fl (80.0-96.0); MONO # 0.9 10^3/uL (0.0-0.8); MONO % 7.6 % (2.0-8.0); NEUTROPHILS # 8.5 10^3/uL (1.5-8.5); NEUTROPHILS % 73.2 % (36.0-66.0); PLATELET COUNT, AUTOMATED 187 10^3/uL (150-450); RED BLOOD COUNT 3.48 10^6/uL (4.00-5.40); WHITE BLOOD COUNT 11.7 10^3/uL (4.0-10.0)
[2024-02-28 08:47] LABS: BLOOD UREA NITROGEN 17 MG/DL (9-23); CALCIUM LEVEL 9.6 MG/DL (8.5-10.1); CARBON DIOXIDE LEVEL 28 MMOL/L (20-31); CHLORIDE LEVEL 105 MMOL/L (98-107); CREATININE FOR GFR 1.04 MG/DL (0.55-1.30); GLOMERULAR FILTRATION RATE > 60.0 (>58); GLUCOSE, FASTING 82 MG/DL (60-100); POTASSIUM SERUM 3.6 MMOL/L (3.5-5.1); SODIUM LEVEL 140 MMOL/L (136-145)
[2024-02-28] MEDS: PANTOPRAZOLE 40MG TAB (PROTONIX) PO SCH (09:44)
[2024-02-28] MEDS: LevoFLOXacin IV 750 MG in IV 1 EA IV SCH (12:33)
[2024-02-28] MEDS: LOSARTAN 25 MG TAB PO SCH (13:48)
[2024-02-28] MEDS: guaiFENesin ER TABLET 600 MG TAB PO SCH (20:09)
[2024-02-28] MEDS: METOPROLOL SUCC *XL* 12.5MG PER 1/2 TAB (TopROL *XL*) PO SCH (20:11)
[2024-02-29] VITALS (28 sets, daily range): BP systolic 104–128; BP diastolic 58–80; TEMP 97.4–98.2; O2SAT 86–100
[2024-02-29 06:09] LABS: HEMATOCRIT 29.1 % (36.0-47.0); MEAN CORPUSCULAR HEMOGLOBIN 26.9 pg (27.0-33.0); MEAN CORPUSCULAR HGB CONC 30.9 g/dl (32.0-36.5); MEAN CORPUSCULAR VOLUME 87.1 fl (80.0-96.0); PLATELET COUNT, AUTOMATED 171 10^3/uL (150-450); RED BLOOD COUNT 3.34 10^6/uL (4.00-5.40); WHITE BLOOD COUNT 11.9 10^3/uL (4.0-10.0)
[2024-02-29 07:09] LABS: C REACTIVE PROTEIN QUANTITATIV 17.1 MG/DL (<1.0)
[2024-02-29 07:24] LABS: PROCALCITONIN 0.33 ng/ml
[2024-02-29] MEDS: LevoFLOXacin 750 MG TABLET PO SCH (12:16)
[2024-03-01] VITALS (23 sets, daily range): BP systolic 111–140; BP diastolic 45–80; TEMP 97.2–98.5; O2SAT 86–100
[2024-03-01 08:33] LABS: HEMATOCRIT 30.3 % (36.0-47.0); HEMOGLOBIN 9.8 g/dl (12.0-15.5); MEAN CORPUSCULAR HEMOGLOBIN 27.4 pg (27.0-33.0); MEAN CORPUSCULAR HGB CONC 32.3 g/dl (32.0-36.5); MEAN CORPUSCULAR VOLUME 84.6 fl (80.0-96.0); PLATELET COUNT, AUTOMATED 179 10^3/uL (150-450); RED BLOOD COUNT 3.58 10^6/uL (4.00-5.40); WHITE BLOOD COUNT 14.3 10^3/uL (4.0-10.0)
[2024-03-01 08:45] LABS: BLOOD UREA NITROGEN 14 MG/DL (9-23); CARBON DIOXIDE LEVEL 24 MMOL/L (20-31); CHLORIDE LEVEL 102 MMOL/L (98-107); CREATININE FOR GFR 0.95 MG/DL (0.55-1.30); GLOMERULAR FILTRATION RATE > 60.0 (>58); GLUCOSE, FASTING 108 MG/DL (60-100); POTASSIUM SERUM 3.2 MMOL/L (3.5-5.1); SODIUM LEVEL 136 MMOL/L (136-145)
[2024-03-01] MEDS: POTASSIUM CHLORIDE 10MEQ SR TABLET PO ONE (13:36)
[2024-03-01] MEDS: FUROSEMIDE 20MG/2ML VIAL IV ONE (17:34)
[2024-03-02 04:00] VITALS: BP 115/96; TEMP 97.2; O2SAT 93
[2024-03-02 08:10] LABS: HEMOGLOBIN 9.6 g/dl (12.0-15.5); MEAN CORPUSCULAR HEMOGLOBIN 27.4 pg (27.0-33.0); MEAN CORPUSCULAR VOLUME 85.7 fl (80.0-96.0); PLATELET COUNT, AUTOMATED 188 10^3/uL (150-450); WHITE BLOOD COUNT 12.2 10^3/uL (4.0-10.0)
[2024-03-02 08:43] LABS: BLOOD UREA NITROGEN 16 MG/DL (9-23); CALCIUM LEVEL 9.5 MG/DL (8.5-10.1); CARBON DIOXIDE LEVEL 23 MMOL/L (20-31); CHLORIDE LEVEL 103 MMOL/L (98-107); CREATININE FOR GFR 1.03 MG/DL (0.55-1.30); GLOMERULAR FILTRATION RATE > 60.0 (>58); GLUCOSE, FASTING 118 MG/DL (60-100); POTASSIUM SERUM 3.6 MMOL/L (3.5-5.1); SODIUM LEVEL 136 MMOL/L (136-145)
[2024-03-02] MEDS ORDERED: FUROSEMIDE 40 MG TAB PO SCH (09:00)
[2024-03-02] MEDS: FUROSEMIDE 40MG/4ML VIAL IV SCH (09:37)
[2024-03-02 12:00] VITALS: BP 92/63; TEMP 97.3; O2SAT 94
[2024-03-02 14:22] VITALS: BP 130/80
[2024-03-02 20:30] VITALS: BP 102/74; TEMP 98.2; O2SAT 92
[2024-03-03 04:17] VITALS: BP 102/69; TEMP 97.3; O2SAT 95
[2024-03-03 06:21] LABS: HEMATOCRIT 27.8 % (36.0-47.0); HEMOGLOBIN 8.8 g/dl (12.0-15.5); MEAN CORPUSCULAR HGB CONC 31.7 g/dl (32.0-36.5); MEAN CORPUSCULAR VOLUME 85.3 fl (80.0-96.0); PLATELET COUNT, AUTOMATED 204 10^3/uL (150-450); RED BLOOD COUNT 3.26 10^6/uL (4.00-5.40); WHITE BLOOD COUNT 11.3 10^3/uL (4.0-10.0)
[2024-03-03 06:41] LABS: CREATININE FOR GFR 1.1 MG/DL (0.55-1.30); GLOMERULAR FILTRATION RATE 58.3 (>58); POTASSIUM SERUM 3.4 MMOL/L (3.5-5.1)
[2024-03-03] MEDS: POTASSIUM CHLORIDE 10MEQ SR TABLET PO ONE (08:53)
[2024-03-03 12:00] VITALS: BP 113/79; TEMP 97.3; O2SAT 94
[2024-03-03 19:51] VITALS: BP 119/79; TEMP 97.5; O2SAT 96
[2024-03-04 04:08] VITALS: BP 103/68; TEMP 97.5; O2SAT 96
[2024-03-04 05:38] LABS: HEMATOCRIT 27.2 % (36.0-47.0); HEMOGLOBIN 8.5 g/dl (12.0-15.5); MEAN CORPUSCULAR HEMOGLOBIN 26.9 pg (27.0-33.0); MEAN CORPUSCULAR HGB CONC 31.3 g/dl (32.0-36.5); MEAN CORPUSCULAR VOLUME 86.1 fl (80.0-96.0); PLATELET COUNT, AUTOMATED 203 10^3/uL (150-450); RED BLOOD COUNT 3.16 10^6/uL (4.00-5.40); WHITE BLOOD COUNT 12.1 10^3/uL (4.0-10.0)
[2024-03-04 06:02] LABS: CALCIUM LEVEL 9.3 MG/DL (8.5-10.1); CREATININE FOR GFR 1.22 MG/DL (0.55-1.30); GLOMERULAR FILTRATION RATE 51.7 (>58); POTASSIUM SERUM 3.7 MMOL/L (3.5-5.1)
[2024-03-04] MEDS ORDERED: LOSA-527 PO (11:28)
[2024-03-04] MEDS ORDERED: PANT40TA29 PO (11:28)
[2024-03-04] MEDS ORDERED: METO1TAB32 PO (11:28)
[2024-03-04] MEDS ORDERED: LEVO75TAB PO (11:28)
[2024-03-04] MEDS ORDERED: ALB2.5NEB NEB (11:28)
[2024-03-04] MEDS ORDERED: LASI20TA3 PO (11:32)
[2024-03-04 12:00] VITALS: BP 111/67; TEMP 97.3; O2SAT 88
[2024-03-04] MEDS: FLUCONAZOLE 50MG TABLET PO ONE (13:22)
[2024-03-04 20:00] VITALS: BP 115/69; TEMP 97.7; O2SAT 96
[2024-03-04 21:03] VITALS: BP 115/69
[2024-03-05 04:00] VITALS: BP 117/71; TEMP 97; O2SAT 96
[2024-03-05 06:13] LABS: HEMATOCRIT 29.3 % (36.0-47.0); HEMOGLOBIN 9.1 g/dl (12.0-15.5); MEAN CORPUSCULAR HEMOGLOBIN 26.8 pg (27.0-33.0); MEAN CORPUSCULAR HGB CONC 31.1 g/dl (32.0-36.5); MEAN CORPUSCULAR VOLUME 86.4 fl (80.0-96.0); PLATELET COUNT, AUTOMATED 237 10^3/uL (150-450); RED BLOOD COUNT 3.39 10^6/uL (4.00-5.40); WHITE BLOOD COUNT 12.3 10^3/uL (4.0-10.0)
[2024-03-05 06:32] LABS: CALCIUM LEVEL 9.6 MG/DL (8.5-10.1); CREATININE FOR GFR 1.15 MG/DL (0.55-1.30); GLOMERULAR FILTRATION RATE 55.4 (>58); POTASSIUM SERUM 3.9 MMOL/L (3.5-5.1)
[2024-03-05 09:17] VITALS: BP 110/70; O2SAT 92
== END 2024-03-05 13:13 | disposition home health service (06) | DRG 133 ==
LOC: M PCU 02-20 12:11 → M MSPAV 02-21 15:41 → M ICU 02-23 18:01 → M PCU 02-29 01:15 → M MSPAV 03-01 17:46
PROVIDERS: ADMIT Internal Medicine; ATTEND Student in an Organized Health Care Education/Training Program
PROC: 30233N1 Transfusion of Nonautologous Red Blood Cells into Peripheral Vein, Percutaneous Approach (ICD-10-PCS; principal; 2024-02-21)
PROC: 0CJS8ZZ Inspection of Larynx, Via Natural or Artificial Opening Endoscopic (ICD-10-PCS; 2024-02-24)
PROC: 5A1945Z Respiratory Ventilation, 24-96 Consecutive Hours (ICD-10-PCS; 2024-02-24)
PROC: 0BH17EZ Insertion of Endotracheal Airway into Trachea, Via Natural or Artificial Opening (ICD-10-PCS; 2024-02-24)
PROC: B246ZZZ Ultrasonography of Right and Left Heart (ICD-10-PCS; 2024-02-27)
DX: J96.11 Chronic respiratory failure with hypoxia (principal); J15.1 Pneumonia due to Pseudomonas; I42.9 Cardiomyopathy, unspecified; Z93.0 Tracheostomy status; J44.1 Chronic obstructive pulmonary disease with (acute) exacerbation; J96.21 Acute and chronic respiratory failure with hypoxia; J38.6 Stenosis of larynx; J38.02 Paralysis of vocal cords and larynx, bilateral; F11.20 Opioid dependence, uncomplicated; E66.01 Morbid (severe) obesity due to excess calories; F25.9 Schizoaffective disorder, unspecified; G89.18 Other acute postprocedural pain; G89.29 Other chronic pain; E03.9 Hypothyroidism, unspecified; F32.A Depression, unspecified; F41.1 Generalized anxiety disorder; E87.6 Hypokalemia; F60.3 Borderline personality disorder; G47.33 Obstructive sleep apnea (adult) (pediatric); J45.909 Unspecified asthma, uncomplicated; D64.9 Anemia, unspecified; I89.0 Lymphedema, not elsewhere classified; E55.9 Vitamin D deficiency, unspecified; K21.9 Gastro-esophageal reflux disease without esophagitis; Z68.42 Body mass index [BMI] 45.0-49.9, adult; Z79.890 Hormone replacement therapy; Z79.899 Other long term (current) drug therapy; Z90.49 Acquired absence of other specified parts of digestive tract

== ENCOUNTER 2024-03-11 01:04 | Inpatient (IN) | payer OTHER ==
[~2024-03-11] VITALS: Ht 160 cm; Wt 111.9 kg
[~2024-03-11 01:04] MED LIST changes: +ALB2.5NEB NEB; +IBUP-359 PO; +LASI20TA3 PO; +LEVO75TAB PO; +LOSA-527 PO; +METO1TAB32 PO; +PANT40TA29 PO
[2024-03-11 01:48] LABS: VENOUS BASE EXCESS -6.9 (-2.0-2.0); VENOUS HCO3 22.6 MMOL/L (23.0-27.0); VENOUS PARTIAL PRESSURE CO2 69.2 mmHg (38.0-50.0); VENOUS PARTIAL PRESSURE O2 39.8 mmHg (30.0-50.0); VENOUS PH 7.131 UNITS (7.330-7.430); VENOUS STANDARD HCO3 18.2 MMOL/L; VENOUS TOTAL CO2 24.7 MMOL/L (24.0-28.0)
[2024-03-11 01:49] LABS: BASO % 0.5 % (0.0-1.0); EOS # 0.5 10^3/uL (0.0-0.5); EOS % 6.5 % (0.0-3.0); HEMATOCRIT 27.7 % (36.0-47.0); HEMOGLOBIN 8.5 g/dl (12.0-15.5); LYMPH # 1.4 10^3/uL (1.5-5.0); LYMPH % 17.5 % (24.0-44.0); MEAN CORPUSCULAR HEMOGLOBIN 26.7 pg (27.0-33.0); MEAN CORPUSCULAR HGB CONC 30.7 g/dl (32.0-36.5); MEAN CORPUSCULAR VOLUME 87.1 fl (80.0-96.0); MONO # 0.5 10^3/uL (0.0-0.8); MONO % 6.4 % (2.0-8.0); NEUTROPHILS # 5.2 10^3/uL (1.5-8.5); NEUTROPHILS % 65.4 % (36.0-66.0); PLATELET COUNT, AUTOMATED 174 10^3/uL (150-450); RED BLOOD COUNT 3.18 10^6/uL (4.00-5.40); WHITE BLOOD COUNT 7.9 10^3/uL (4.0-10.0)
[2024-03-11 02:18] LABS: ALBUMIN 2.7 G/DL (3.2-5.2); BILIRUBIN,DIRECT 0.2 MG/DL (<0.4); BILIRUBIN,TOTAL 0.3 MG/DL (0.3-1.2); CREATININE FOR GFR 1.59 MG/DL (0.55-1.30); GLOMERULAR FILTRATION RATE 38.1 (>58); MB/CK RELATIVE INDEX 2.43 (< OR =4); POTASSIUM SERUM 3.9 MMOL/L (3.5-5.1); TOTAL PROTEIN 6.3 G/DL (5.7-8.2)
[2024-03-11 02:20] LABS: THYROXINE (T4) 5.2 UG/DL (4.5-10.9)
[2024-03-11 02:21] LABS: THYROID STIMULATING HORMONE 2.23 uIU/ML (0.55-4.78)
[2024-03-11] MEDS: IPRATROPIUM 0.5MG/ALBUTEROL 2.5MG INH SOL UD 3ML (DUONEB) NEB ONE (03:02)
[2024-03-11 03:17] LABS: ABG BASE EXCESS -9.1 (-2.0-2.0); ABG HCO3 18.2 MMOL/L (22.0-26.0); ABG PARTIAL PRESSURE CO2 46.6 mmHg (35.0-45.0); ABG PARTIAL PRESSURE O2 137.6 mmHg (75.0-100.0); ABG TOTAL CO2 19.6 MMOL/L (22.0-29.0)
[2024-03-11] MEDS: NS 1,000 ML IV ONE (03:46)
[2024-03-11] MEDS: LevoFLOXacin IV 750 MG in IV 1 EA IV ONE (03:47)
[2024-03-11] MEDS ORDERED: LEVALBUTEROL 1.25MG 0.5ML CONCENTRATE NEB INH PRN (04:20)
[2024-03-11 05:55] LABS: VENOUS HCO3 20.8 MMOL/L (23.0-27.0); VENOUS O2 SATURATION 72.2 % (60.0-80.0); VENOUS PARTIAL PRESSURE CO2 60.3 mmHg (38.0-50.0); VENOUS PH 7.156 UNITS (7.330-7.430); VENOUS STANDARD HCO3 17.6 MMOL/L; VENOUS TOTAL CO2 22.7 MMOL/L (24.0-28.0)
[2024-03-11 06:09] VITALS: BP 132/73; TEMP 97.3; O2SAT 100
[2024-03-11 06:15] LABS: INR 1.03; PARTIAL THROMBOPLASTIN TIME 24.4 SECONDS (24.8-34.2); PROTHROMBIN TIME 13.8 SECONDS (12.5-14.5)
[2024-03-11] MEDS: SODIUM BICARBONATE 75 MEQ in NS 0.45% 1,000 ML IV SCH (06:15)
[2024-03-11] MEDS ORDERED: LOSA25TA13 PO (07:49)
[2024-03-11] MEDS ORDERED: FURO20TA2 PO ×2 (07:49→13:31)
[2024-03-11] MEDS: IPRATROPIUM 0.5MG/ALBUTEROL 2.5MG INH SOL UD 3ML (DUONEB) INH SCH (07:50)
[2024-03-11] MEDS ORDERED: METO1TAB32 PO (07:53)
[2024-03-11] MEDS ORDERED: PANT40TA29 PO (07:53)
[2024-03-11 08:00] VITALS: BP 131/63; TEMP 97; O2SAT 100
[2024-03-11] MEDS: predniSONE 20 MG TAB PO SCH (08:05)
[2024-03-11] MEDS ORDERED: HOME MED LIST COMPLETE! XX SCH (08:05)
[2024-03-11] MEDS: DOCUSATE SODIUM 100MG CAPSULE PO SCH (08:06)
[2024-03-11] MEDS: ACETAMINOPHEN 325 MG TAB PO PRN (08:14)
[2024-03-11] MEDS: HEPARIN SOD (PORCINE) 5000UNITS/ML 1ML VIAL/SYRINGE SC SCH (09:50)
[2024-03-11] MEDS ORDERED: LEVO75TAB PO (11:21)
[2024-03-11 11:33] LABS: VENOUS BASE EXCESS -8.3 (-2.0-2.0); VENOUS HCO3 20.4 MMOL/L (23.0-27.0); VENOUS PARTIAL PRESSURE CO2 58.9 mmHg (38.0-50.0); VENOUS PARTIAL PRESSURE O2 114.8 mmHg (30.0-50.0); VENOUS PH 7.157 UNITS (7.330-7.430); VENOUS STANDARD HCO3 17.7 MMOL/L; VENOUS TOTAL CO2 22.2 MMOL/L (24.0-28.0)
[2024-03-11 12:07] LABS: CALCIUM LEVEL 8.7 MG/DL (8.5-10.1); CREATININE FOR GFR 1.26 MG/DL (0.55-1.30); GLOMERULAR FILTRATION RATE 49.8 (>58); MAGNESIUM LEVEL 1.8 MG/DL (1.8-2.4); POTASSIUM SERUM 3.9 MMOL/L (3.5-5.1)
[2024-03-11] MEDS ORDERED: VENL37.52 PO (12:58)
[2024-03-11] MEDS ORDERED: CEFD1CAP9 PO (13:29)
[2024-03-11] MEDS ORDERED: LEVO200T31 PO (13:31)
[2024-03-11 13:49] LABS: CALCIUM LEVEL 8.9 MG/DL (8.5-10.1); CREATININE FOR GFR 1.31 MG/DL (0.55-1.30); GLOMERULAR FILTRATION RATE 47.6 (>58); POTASSIUM SERUM 4.1 MMOL/L (3.5-5.1)
[2024-03-12] MEDS ORDERED: LevoFLOXacin 750 MG TABLET PO SCH (06:00)
[2024-03-13] MEDS ORDERED: LevoFLOXacin IV 750 MG in IV 1 EA IV SCH (05:00)
== END 2024-03-11 13:22 | disposition left against medical advice (07) | DRG 133 ==
LOC: M ED 01:04 → M ED INP 04:20 → M ICU 05:53
PROVIDERS: ADMIT Family Medicine; ATTEND Student in an Organized Health Care Education/Training Program
DX: J96.01 Acute respiratory failure with hypoxia (principal); J18.9 Pneumonia, unspecified organism; E87.4 Mixed disorder of acid-base balance; N17.9 Acute kidney failure, unspecified; Z93.0 Tracheostomy status; J38.6 Stenosis of larynx; N18.30 Chronic kidney disease, stage 3 unspecified; F25.9 Schizoaffective disorder, unspecified; E66.01 Morbid (severe) obesity due to excess calories; F32.A Depression, unspecified; F41.1 Generalized anxiety disorder; F60.3 Borderline personality disorder; F43.10 Post-traumatic stress disorder, unspecified; F11.11 Opioid abuse, in remission; J45.909 Unspecified asthma, uncomplicated; E03.9 Hypothyroidism, unspecified; D64.9 Anemia, unspecified; G47.33 Obstructive sleep apnea (adult) (pediatric); G89.29 Other chronic pain; R60.0 Localized edema; Z87.891 Personal history of nicotine dependence; Z79.899 Other long term (current) drug therapy; Z79.890 Hormone replacement therapy

== ENCOUNTER 2024-04-09 11:45 | Inpatient (IN) | payer OTHER ==
[~2024-04-09] VITALS: Ht 160 cm; Wt 101.5 kg
[~2024-04-09 11:45] MED LIST changes: -HYDR50TA70 NG; +LOSA25TA13 PO; +VENL37.52 PO
[2024-04-09 13:45] LABS: BASO # 0.1 10^3/uL (0.0-0.2); BASO % 0.4 % (0.0-1.0); EOS # 0.2 10^3/uL (0.0-0.5); EOS % 1.2 % (0.0-3.0); HEMATOCRIT 30.6 % (36.0-47.0); HEMOGLOBIN 9.8 g/dl (12.0-15.5); LYMPH % 7.6 % (24.0-44.0); MEAN CORPUSCULAR HEMOGLOBIN 26.9 pg (27.0-33.0); MEAN CORPUSCULAR VOLUME 84.1 fl (80.0-96.0); MONO # 0.7 10^3/uL (0.0-0.8); MONO % 4.9 % (2.0-8.0); NEUTROPHILS # 11.4 10^3/uL (1.5-8.5); NEUTROPHILS % 84.5 % (36.0-66.0); PLATELET COUNT, AUTOMATED 155 10^3/uL (150-450); RED BLOOD COUNT 3.64 10^6/uL (4.00-5.40); WHITE BLOOD COUNT 13.5 10^3/uL (4.0-10.0)
[2024-04-09 13:56] LABS: ABG BASE EXCESS -0.5 (-2.0-2.0); ABG HCO3 25.1 MMOL/L (22.0-26.0); ABG O2 SATURATION 89.1 % (95.0-99.0); ABG PARTIAL PRESSURE CO2 45.6 mmHg (35.0-45.0); ABG PARTIAL PRESSURE O2 59.5 mmHg (75.0-100.0); ABG STANDARD HCO3 23.9 MMOL/L. (22.0-26.0); ABG TOTAL CO2 26.5 MMOL/L (22.0-29.0); ABG pH (ARTERIAL) 7.359 UNITS (7.350-7.450)
[2024-04-09 14:16] LABS: CPK CREATINE PHOSPHOKINASE 85 U/L (34-145)
[2024-04-09 14:20] LABS: ALKALINE PHOSPHATASE 178 U/L (35-104); ALT/SGPT < 9 U/L (7.0-40); AST/SGOT 9 U/L (<34); BILIRUBIN,DIRECT 0.2 MG/DL (<0.4); BILIRUBIN,TOTAL 0.6 MG/DL (0.3-1.2); BLOOD UREA NITROGEN 7 MG/DL (9-23); CALCIUM LEVEL 8.7 MG/DL (8.5-10.1); CARBON DIOXIDE LEVEL 32 MMOL/L (20-31); CHLORIDE LEVEL 102 MMOL/L (98-107); CK-MB VALUE MASS 1.5 NG/ML (<3.6); CREATININE FOR GFR 1.11 MG/DL (0.55-1.30); GLOMERULAR FILTRATION RATE 57.4 (>58); GLUCOSE, FASTING 117 MG/DL (60-100); MB/CK RELATIVE INDEX 1.76 (< OR =4); POTASSIUM SERUM 2.2 MMOL/L (3.5-5.1); SODIUM LEVEL 142 MMOL/L (136-145); TOTAL PROTEIN 6.8 G/DL (5.7-8.2)
[2024-04-09] MEDS: POTASSIUM CHLORIDE 10MEQ SR TABLET PO ONE (14:36)
[2024-04-09] MEDS: KCL 10MEQ/100ML SWI (KRUN) 10 MEQ in IV 1 EA IV ONE ×2 (14:36→18:53)
[2024-04-09] MEDS ORDERED: HOME MED LIST COMPLETE! XX SCH (15:50)
[2024-04-09 16:37] LABS: KETONE, URINE AUTO RFX NEGATIVE (NEGATIVE); NITRITE, URINE AUTO RFX NEGATIVE (NEGATIVE); RBC, URINE AUTO RFX 0 /HPF (0-3); SQUAM EPITHELIAL CELL UR AURFX 2 /HPF (0-6); WBC, URINE AUTO RFX 4 /HPF (0-3)
[2024-04-09 16:40] LABS: LEUKOCYTE ESTERASE UR AUTO RFX 1+ (NEGATIVE)
[2024-04-09] MEDS: PIPERACILLIN/TAZOBACTAM SOD 4.5 GM in DEXTROSE 5% (D5W) ADV/MINI-BAG 50 ML IV ONE (16:46)
[2024-04-09] MEDS ORDERED: FLUID PLACE HOLDER IV SCH (17:40)
[2024-04-09] MEDS ORDERED: VANCOMYCIN HCL IV SCH (17:40)
[2024-04-09] MEDS ORDERED: PILL CUTTER 1 EACH XX PRN (18:45)
[2024-04-09 19:44] LABS: MAGNESIUM LEVEL 1.6 MG/DL (1.8-2.4)
[2024-04-09 19:58] LABS: PROCALCITONIN 0.36 ng/ml
[2024-04-09] MEDS: VANCOMYCIN HCL 1,000 MG, VIAL MATE ADAPTER 1 EACH in NS 250 ML IV ONE (20:58)
[2024-04-09] MEDS: GABAPENTIN 300 MG CAP PO SCH (20:58)
[2024-04-09] MEDS: TOPIRAMATE (TopAMAX) 100 MG TAB PO SCH (20:59)
[2024-04-09] MEDS: VENLAFAXINE **XR** 37.5 MG CAPSULE PO SCH (20:59)
[2024-04-09] MEDS: POTASSIUM CHLORIDE 10MEQ SR TABLET PO SCH (20:59)
[2024-04-09] MEDS: OLANZapine 2.5MG TABLET PO SCH (20:59)
[2024-04-09] MEDS: PRAZOSIN 1 MG CAP PO SCH (21:00)
[2024-04-09] MEDS: QUEtiapine FUMERATE XR 50MG TABER PO SCH (21:00)
[2024-04-09] MEDS: METOPROLOL SUCC *XL* 12.5MG PER 1/2 TAB (TopROL *XL*) PO SCH (21:01)
[2024-04-09] MEDS: traZODone 50 MG TAB PO SCH (21:07)
[2024-04-09] MEDS: MEROPENEM INJ 1 GM in IV 1 EA IV SCH (22:05)
[2024-04-09] MEDS: MAG SULF 1GM/100ML (MAG RUN) 1 GM in IV 1 EA IV ONE (22:43)
[2024-04-09] MEDS: IPRATROPIUM 0.5MG/ALBUTEROL 2.5MG INH SOL UD 3ML (DUONEB) INH SCH (22:54)
[2024-04-10] VITALS (11 sets, daily range): BP systolic 90–108; BP diastolic 51–63; TEMP 97.2–97.8; O2SAT 91–94
[2024-04-10 02:10] LABS: CALCIUM LEVEL 8.3 MG/DL (8.5-10.1); CREATININE FOR GFR 1.11 MG/DL (0.55-1.30); GLOMERULAR FILTRATION RATE 57.4 (>58); POTASSIUM SERUM 2.7 MMOL/L (3.5-5.1)
[2024-04-10] MEDS: LEVOTHYROXINE 100MCG TABLET (0.1MG) PO SCH (06:00)
[2024-04-10 07:05] LABS: ALBUMIN 2.5 G/DL (3.2-5.2); ALKALINE PHOSPHATASE 157 U/L (35-104); ALT/SGPT < 9 U/L (7.0-40); AST/SGOT 10 U/L (<34); BILIRUBIN,TOTAL 0.6 MG/DL (0.3-1.2); BLOOD UREA NITROGEN 6 MG/DL (9-23); CALCIUM LEVEL 8.4 MG/DL (8.5-10.1); CARBON DIOXIDE LEVEL 30 MMOL/L (20-31); CHLORIDE LEVEL 107 MMOL/L (98-107); CREATININE FOR GFR 1.07 MG/DL (0.55-1.30); GLOMERULAR FILTRATION RATE 59.9 (>58); GLUCOSE, FASTING 121 MG/DL (60-100); POTASSIUM SERUM 2.8 MMOL/L (3.5-5.1); SODIUM LEVEL 144 MMOL/L (136-145); TOTAL PROTEIN 5.8 G/DL (5.7-8.2)
[2024-04-10] MEDS ORDERED: MOVANTIK 25 MG PO SCH (09:00)
[2024-04-10] MEDS: POTASSIUM CHLORIDE 10MEQ SR TABLET PO SCH (09:03)
[2024-04-10] MEDS: buPROPion **XL** TABLET 150MG (WELLBUTRIN XL) PO SCH (09:03)
[2024-04-10] MEDS: PANTOPRAZOLE 40MG TAB (PROTONIX) PO SCH (09:04)
[2024-04-10] MEDS: SPIRONOLACTONE 25 MG TAB PO SCH (09:04)
[2024-04-10] MEDS: FUROSEMIDE 20 MG TAB PO SCH (09:05)
[2024-04-10] MEDS: METHADONE 10MG TAB PO SCH (09:05)
[2024-04-10] MEDS: ENOXAPARIN 40MG/0.4ML SYRINGE (J1650 PER 10MG) SC SCH (09:06)
[2024-04-10] MEDS: LOSARTAN 25 MG TAB PO SCH (09:06)
[2024-04-10] MEDS: VANCOMYCIN HCL 1,000 MG, VIAL MATE ADAPTER 1 EACH in NS 250 ML IV SCH (09:07)
[2024-04-11] VITALS (32 sets, daily range): BP systolic 78–145; BP diastolic 50–70; TEMP 97.7–98.4; O2SAT 79–100
[2024-04-11] MEDS: ALBUTEROL SULFATE 2.5MG/0.5ML INH NEB SOLN NEB PRN (03:15)
[2024-04-11 07:25] LABS: HEMATOCRIT 30.7 % (36.0-47.0); HEMOGLOBIN 9.4 g/dl (12.0-15.5); MEAN CORPUSCULAR HEMOGLOBIN 26.3 pg (27.0-33.0); MEAN CORPUSCULAR HGB CONC 30.6 g/dl (32.0-36.5); PLATELET COUNT, AUTOMATED 157 10^3/uL (150-450); RED BLOOD COUNT 3.57 10^6/uL (4.00-5.40); WHITE BLOOD COUNT 11.1 10^3/uL (4.0-10.0)
[2024-04-11 07:54] LABS: BLOOD UREA NITROGEN 5 MG/DL (9-23); CALCIUM LEVEL 8.4 MG/DL (8.5-10.1); CARBON DIOXIDE LEVEL 29 MMOL/L (20-31); CHLORIDE LEVEL 105 MMOL/L (98-107); CREATININE FOR GFR 0.96 MG/DL (0.55-1.30); GLOMERULAR FILTRATION RATE > 60.0 (>58); GLUCOSE, FASTING 125 MG/DL (60-100); POTASSIUM SERUM 3.1 MMOL/L (3.5-5.1); SODIUM LEVEL 142 MMOL/L (136-145)
[2024-04-11] MEDS ORDERED: HOME MED LIST COMPLETE! XX SCH (09:00)
[2024-04-11] MEDS: VANCOMYCIN HCL 750 MG, VIAL MATE ADAPTER 1 EACH in NS 250 ML IV SCH (09:27)
[2024-04-11] MEDS: KCL 10MEQ/100ML SWI (KRUN) 10 MEQ in IV 1 EA IV SCH ×2 (10:00→20:56)
[2024-04-11] MEDS: POTASSIUM CHLORIDE 10MEQ SR TABLET PO ONE ×2 (11:43→14:37)
[2024-04-11] MEDS: FUROSEMIDE 40MG/4ML VIAL IV ONE ×2 (11:44→21:18)
[2024-04-11 14:37] LABS: PROCALCITONIN 0.27 ng/ml
[2024-04-11] MEDS ORDERED: KCL 10MEQ IN STERILE WATER 100ML As Ordered ONE (16:24)
[2024-04-11 17:56] LABS: BLOOD UREA NITROGEN < 5 MG/DL (9-23); CALCIUM LEVEL 8.4 MG/DL (8.5-10.1); CARBON DIOXIDE LEVEL 32 MMOL/L (20-31); CHLORIDE LEVEL 103 MMOL/L (98-107); CREATININE FOR GFR 0.98 MG/DL (0.55-1.30); GLOMERULAR FILTRATION RATE > 60.0 (>58); GLUCOSE, FASTING 152 MG/DL (60-100); MAGNESIUM LEVEL 1.5 MG/DL (1.8-2.4); PHOSPHORUS LEVEL 1.6 MG/DL (2.5-4.9); POTASSIUM SERUM 3.5 MMOL/L (3.5-5.1); SODIUM LEVEL 141 MMOL/L (136-145)
[2024-04-11] MEDS: MAG SULF 1GM/100ML (MAG RUN) 1 GM in IV 1 EA IV SCH (18:18)
[2024-04-11] MEDS: SODIUM PHOSPHATE INJ 30 MMOL in D5W 500 ML IV ONE (21:37)
[2024-04-12] VITALS (30 sets, daily range): BP systolic 106–138; BP diastolic 64–84; TEMP 97–98.6; O2SAT 83–95
[2024-04-12 07:27] LABS: HEMOGLOBIN 9.8 g/dl (12.0-15.5); MEAN CORPUSCULAR HEMOGLOBIN 26.2 pg (27.0-33.0); MEAN CORPUSCULAR HGB CONC 31.6 g/dl (32.0-36.5); MEAN CORPUSCULAR VOLUME 82.9 fl (80.0-96.0); PLATELET COUNT, AUTOMATED 162 10^3/uL (150-450); RED BLOOD COUNT 3.74 10^6/uL (4.00-5.40); WHITE BLOOD COUNT 12.2 10^3/uL (4.0-10.0)
[2024-04-12 07:53] LABS: BLOOD UREA NITROGEN 5 MG/DL (9-23); CALCIUM LEVEL 8.4 MG/DL (8.5-10.1); CARBON DIOXIDE LEVEL 29 MMOL/L (20-31); CHLORIDE LEVEL 104 MMOL/L (98-107); CREATININE FOR GFR 0.85 MG/DL (0.55-1.30); GLOMERULAR FILTRATION RATE > 60.0 (>58); GLUCOSE, FASTING 153 MG/DL (60-100); PHOSPHORUS LEVEL 2.7 MG/DL (2.5-4.9); POTASSIUM SERUM 4.2 MMOL/L (3.5-5.1); SODIUM LEVEL 138 MMOL/L (136-145)
[2024-04-12] MEDS: SODIUM CHLORIDE HYPERTONIC 3% 4ML NEB SOL INH ONE (08:00)
[2024-04-12] MEDS: NEUTRA-PHOS 1.5 GM PACKET PO SCH (08:12)
[2024-04-12] MEDS: hydrOXYzine 50 MG TAB PO PRN (08:13)
[2024-04-12] MEDS: MAGNESIUM OXIDE 400MG TAB (MAG-OX) PO SCH (08:13)
[2024-04-12] MEDS: MAG SULF 1GM/100ML (MAG RUN) 1 GM in IV 1 EA IV ONE (08:14)
[2024-04-12] MEDS: POTASSIUM CHLORIDE 10MEQ SR TABLET PO SCH (09:00)
[2024-04-12] MEDS ORDERED: POTASSIUM CHLORIDE 10MEQ SR TABLET PO SCH (09:00)
[2024-04-12] MEDS: FUROSEMIDE 100MG/10ML VIAL IV ONE (09:29)
[2024-04-12] MEDS: ACETAMINOPHEN 500 MG TAB PO ONE (12:52)
[2024-04-12] MEDS: methylPREDNISolone 125MG 2ML VIAL IV ONE (15:45)
[2024-04-12] MEDS: FUROSEMIDE 40MG/4ML VIAL IV ONE ×2 (15:45→23:29)
[2024-04-12 17:01] LABS: VENOUS BASE EXCESS 1.1 (-2.0-2.0); VENOUS HCO3 22.7 MMOL/L (23.0-27.0); VENOUS O2 SATURATION 99.6 % (60.0-80.0); VENOUS PARTIAL PRESSURE CO2 27.7 mmHg (38.0-50.0); VENOUS PARTIAL PRESSURE O2 248.3 mmHg (30.0-50.0); VENOUS PH 7.532 UNITS (7.330-7.430); VENOUS STANDARD HCO3 25.5 MMOL/L; VENOUS TOTAL CO2 23.6 MMOL/L (24.0-28.0)
[2024-04-12 17:24] LABS: BLOOD UREA NITROGEN 7 MG/DL (9-23); CALCIUM LEVEL 8.4 MG/DL (8.5-10.1); CARBON DIOXIDE LEVEL 29 MMOL/L (20-31); CHLORIDE LEVEL 102 MMOL/L (98-107); CREATININE FOR GFR 1.01 MG/DL (0.55-1.30); GLOMERULAR FILTRATION RATE > 60.0 (>58); GLUCOSE, FASTING 126 MG/DL (60-100); MAGNESIUM LEVEL 2.2 MG/DL (1.8-2.4); POTASSIUM SERUM 3.8 MMOL/L (3.5-5.1); SODIUM LEVEL 138 MMOL/L (136-145)
[2024-04-13] VITALS (30 sets, daily range): BP systolic 95–132; BP diastolic 55–78; TEMP 97.3–99.3; O2SAT 71–96
[2024-04-13] MEDS ORDERED: ACETAMINOPHEN 500 MG TAB PO PRN (02:25)
[2024-04-13 08:37] LABS: HEMATOCRIT 32.6 % (36.0-47.0); HEMOGLOBIN 10.1 g/dl (12.0-15.5); MEAN CORPUSCULAR VOLUME 83.8 fl (80.0-96.0); PLATELET COUNT, AUTOMATED 205 10^3/uL (150-450); RED BLOOD COUNT 3.89 10^6/uL (4.00-5.40); WHITE BLOOD COUNT 12.2 10^3/uL (4.0-10.0)
[2024-04-13] MEDS: LOSARTAN 25 MG TAB PO SCH (09:15)
[2024-04-13 09:52] LABS: BLOOD UREA NITROGEN 13 MG/DL (9-23); CALCIUM LEVEL 9.3 MG/DL (8.5-10.1); CARBON DIOXIDE LEVEL 34 MMOL/L (20-31); CHLORIDE LEVEL 98 MMOL/L (98-107); CREATININE FOR GFR 0.92 MG/DL (0.55-1.30); GLOMERULAR FILTRATION RATE > 60.0 (>58); GLUCOSE, FASTING 110 MG/DL (60-100); MAGNESIUM LEVEL 2.4 MG/DL (1.8-2.4); PHOSPHORUS LEVEL 3.4 MG/DL (2.5-4.9); SODIUM LEVEL 140 MMOL/L (136-145)
[2024-04-13] MEDS ORDERED: LIDOCAINE 1% MDV 20ML VIAL As Ordered ONE (11:20)
[2024-04-13] MEDS ORDERED: LORazepam 2 MG/ML 1ML VIAL As Ordered ONE (11:47)
[2024-04-13] MEDS: LIDOCAINE 1% MDV 20ML VIAL XX ONE (13:12)
[2024-04-13] MEDS: LORazepam 2 MG/ML 1ML VIAL IV STA (13:12)
[2024-04-13] MEDS: methylPREDNISolone 125MG 2ML VIAL IV ONE (15:40)
[2024-04-13] MEDS: FUROSEMIDE 100MG/10ML VIAL IV ONE (15:40)
[2024-04-13] MEDS: FUROSEMIDE 40MG/4ML VIAL IV ONE (23:31)
[2024-04-14] VITALS (19 sets, daily range): BP systolic 85–134; BP diastolic 48–81; TEMP 97.2–98.3; O2SAT 90–96
[2024-04-14 05:58] LABS: HEMATOCRIT 32.2 % (36.0-47.0); HEMOGLOBIN 9.8 g/dl (12.0-15.5); MEAN CORPUSCULAR HGB CONC 30.4 g/dl (32.0-36.5); MEAN CORPUSCULAR VOLUME 85.4 fl (80.0-96.0); PLATELET COUNT, AUTOMATED 246 10^3/uL (150-450); RED BLOOD COUNT 3.77 10^6/uL (4.00-5.40); WHITE BLOOD COUNT 10.3 10^3/uL (4.0-10.0)
[2024-04-14 06:23] LABS: MAGNESIUM LEVEL 2.3 MG/DL (1.8-2.4); PHOSPHORUS LEVEL 3.8 MG/DL (2.5-4.9)
[2024-04-14 06:24] LABS: BLOOD UREA NITROGEN 16 MG/DL (9-23); CALCIUM LEVEL 9.1 MG/DL (8.5-10.1); CARBON DIOXIDE LEVEL 38 MMOL/L (20-31); CHLORIDE LEVEL 98 MMOL/L (98-107); CREATININE FOR GFR 0.95 MG/DL (0.55-1.30); GLOMERULAR FILTRATION RATE > 60.0 (>58); GLUCOSE, FASTING 111 MG/DL (60-100); POTASSIUM SERUM 3.9 MMOL/L (3.5-5.1); SODIUM LEVEL 141 MMOL/L (136-145)
[2024-04-14] MEDS: methylPREDNISolone 125MG 2ML VIAL IV ONE (13:24)
[2024-04-14] MEDS: FUROSEMIDE 100MG/10ML VIAL IV ONE (13:25)
[2024-04-14] MEDS: metroNIDAZOLE 500 MG in IV 1 EA IV SCH (18:31)
[2024-04-14 18:54] LABS: ALBUMIN 2.6 G/DL (3.2-5.2); ALKALINE PHOSPHATASE 147 U/L (35-104); ALT/SGPT < 9 U/L (7.0-40); AST/SGOT 19 U/L (<34); BILIRUBIN,DIRECT 0.1 MG/DL (<0.4); BILIRUBIN,TOTAL 0.3 MG/DL (0.3-1.2); TOTAL PROTEIN 6.9 G/DL (5.7-8.2)
[2024-04-14 19:07] LABS: URINE STREP PNEUMONIAE ANTIGEN NOT DETECTED (NOT DETECT)
[2024-04-14] MEDS: CEFTOLOZANE/TAZOBACTAM 3 GM in D5W 100 ML IV SCH (22:18)
[2024-04-15] VITALS (24 sets, daily range): BP systolic 95–142; BP diastolic 50–71; TEMP 97.8–98.8; O2SAT 92–99
[2024-04-15 07:22] LABS: HEMATOCRIT 31.6 % (36.0-47.0); HEMOGLOBIN 9.4 g/dl (12.0-15.5); MEAN CORPUSCULAR HEMOGLOBIN 25.7 pg (27.0-33.0); MEAN CORPUSCULAR HGB CONC 29.7 g/dl (32.0-36.5); MEAN CORPUSCULAR VOLUME 86.3 fl (80.0-96.0); PLATELET COUNT, AUTOMATED 231 10^3/uL (150-450); RED BLOOD COUNT 3.66 10^6/uL (4.00-5.40); WHITE BLOOD COUNT 8.6 10^3/uL (4.0-10.0)
[2024-04-15 07:41] LABS: BLOOD UREA NITROGEN 16 MG/DL (9-23); CALCIUM LEVEL 8.6 MG/DL (8.5-10.1); CARBON DIOXIDE LEVEL 38 MMOL/L (20-31); CHLORIDE LEVEL 100 MMOL/L (98-107); CREATININE FOR GFR 0.96 MG/DL (0.55-1.30); GLOMERULAR FILTRATION RATE > 60.0 (>58); GLUCOSE, FASTING 85 MG/DL (60-100); MAGNESIUM LEVEL 2.5 MG/DL (1.8-2.4); POTASSIUM SERUM 3.2 MMOL/L (3.5-5.1); SODIUM LEVEL 143 MMOL/L (136-145)
[2024-04-15] MEDS: VANCOMYCIN HCL 1,500 MG, VIAL MATE ADAPTER 1 EACH in NS 500 ML IV SCH (10:52)
[2024-04-15] MEDS ORDERED: SODIUM CHLORIDE 0.9% INJ 10 ML SYR IV PRN (12:45)
[2024-04-15] MEDS ORDERED: AMIKACIN SULFATE IV SCH (14:05)
[2024-04-15] MEDS ORDERED: D5W IV SCH (14:05)
[2024-04-15] MEDS: POTASSIUM CHLORIDE 10MEQ SR TABLET PO ONE (15:46)
[2024-04-15] MEDS: SODIUM CHLORIDE 0.9% INJ 10 ML SYR IV SCH (18:37)
[2024-04-15] MEDS: D5W IV SCH (18:38)
[2024-04-15] MEDS: AMIKACIN SULFATE IV SCH (18:38)
[2024-04-16] VITALS (27 sets, daily range): BP systolic 96–160; BP diastolic 49–84; TEMP 97.1–98.6; O2SAT 87–99
[2024-04-16 04:39] LABS: HEMATOCRIT 31.2 % (36.0-47.0); HEMOGLOBIN 9.1 g/dl (12.0-15.5); MEAN CORPUSCULAR HEMOGLOBIN 25.7 pg (27.0-33.0); MEAN CORPUSCULAR HGB CONC 29.2 g/dl (32.0-36.5); MEAN CORPUSCULAR VOLUME 88.1 fl (80.0-96.0); PLATELET COUNT, AUTOMATED 214 10^3/uL (150-450); RED BLOOD COUNT 3.54 10^6/uL (4.00-5.40); WHITE BLOOD COUNT 8.8 10^3/uL (4.0-10.0)
[2024-04-16 04:59] LABS: BLOOD UREA NITROGEN 14 MG/DL (9-23); CALCIUM LEVEL 8.8 MG/DL (8.5-10.1); CARBON DIOXIDE LEVEL 34 MMOL/L (20-31); CHLORIDE LEVEL 104 MMOL/L (98-107); CREATININE FOR GFR 1.01 MG/DL (0.55-1.30); GLOMERULAR FILTRATION RATE > 60.0 (>58); GLUCOSE, FASTING 83 MG/DL (60-100); MAGNESIUM LEVEL 2.2 MG/DL (1.8-2.4); POTASSIUM SERUM 3.7 MMOL/L (3.5-5.1); SODIUM LEVEL 145 MMOL/L (136-145)
[2024-04-16] MEDS: SODIUM CHLORIDE HYPERTONIC 3% 4ML NEB SOL INH SCH (11:23)
[2024-04-16] MEDS: FUROSEMIDE 100MG/10ML VIAL IV ONE (11:34)
[2024-04-16] MEDS: TAZOBACTAM IV SCH (13:15)
[2024-04-16] MEDS: CEFTOLOZANE IV SCH (13:15)
[2024-04-16] MEDS: NS IV SCH (13:15)
[2024-04-16] MEDS: IPRATROPIUM 0.5MG/ALBUTEROL 2.5MG INH SOL UD 3ML (DUONEB) INH SCH (13:48)
[2024-04-17] VITALS (25 sets, daily range): BP systolic 70–109; BP diastolic 45–72; TEMP 97.1–98.3; O2SAT 88–99
[2024-04-17 05:54] LABS: HEMATOCRIT 28.5 % (36.0-47.0); HEMOGLOBIN 8.5 g/dl (12.0-15.5); MEAN CORPUSCULAR HEMOGLOBIN 26.1 pg (27.0-33.0); MEAN CORPUSCULAR HGB CONC 29.8 g/dl (32.0-36.5); MEAN CORPUSCULAR VOLUME 87.4 fl (80.0-96.0); PLATELET COUNT, AUTOMATED 171 10^3/uL (150-450); RED BLOOD COUNT 3.26 10^6/uL (4.00-5.40); WHITE BLOOD COUNT 10.1 10^3/uL (4.0-10.0)
[2024-04-17 06:22] LABS: BLOOD UREA NITROGEN 14 MG/DL (9-23); CALCIUM LEVEL 8.2 MG/DL (8.5-10.1); CARBON DIOXIDE LEVEL 34 MMOL/L (20-31); CHLORIDE LEVEL 104 MMOL/L (98-107); CREATININE FOR GFR 0.94 MG/DL (0.55-1.30); GLOMERULAR FILTRATION RATE > 60.0 (>58); GLUCOSE, FASTING 77 MG/DL (60-100); MAGNESIUM LEVEL 2.1 MG/DL (1.8-2.4); PHOSPHORUS LEVEL 3.5 MG/DL (2.5-4.9); POTASSIUM SERUM 3.7 MMOL/L (3.5-5.1); SODIUM LEVEL 146 MMOL/L (136-145)
[2024-04-17] MEDS: NS 500 ML IV ONE (06:35)
[2024-04-17] MEDS: LACTOBACILLUS ACIDOPHILUS CAP (BACID) PO SCH (08:42)
[2024-04-17] MEDS: methylPREDNISolone 500 MG, VIAL MATE ADAPTER 1 EACH in NS 100 ML IV SCH (14:12)
[2024-04-17 16:45] LABS: VENOUS BASE EXCESS 3.4 (-2.0-2.0); VENOUS HCO3 29.7 MMOL/L (23.0-27.0); VENOUS O2 SATURATION 97.5 % (60.0-80.0); VENOUS PARTIAL PRESSURE CO2 54.2 mmHg (38.0-50.0); VENOUS PARTIAL PRESSURE O2 101.2 mmHg (30.0-50.0); VENOUS PH 7.357 UNITS (7.330-7.430); VENOUS STANDARD HCO3 27.6 MMOL/L; VENOUS TOTAL CO2 31.4 MMOL/L (24.0-28.0)
[2024-04-17] MEDS: NS IV SCH (20:48)
[2024-04-17] MEDS: TOBRAMYCIN SULF IV SCH (20:48)
[2024-04-18] VITALS (20 sets, daily range): BP systolic 78–120; BP diastolic 41–81; TEMP 97–98.5; O2SAT 89–98
[2024-04-18] MEDS: NS 500 ML IV ONE (05:25)
[2024-04-18 05:49] LABS: HEMATOCRIT 28.4 % (36.0-47.0); HEMOGLOBIN 8.4 g/dl (12.0-15.5); MEAN CORPUSCULAR HEMOGLOBIN 25.7 pg (27.0-33.0); MEAN CORPUSCULAR HGB CONC 29.6 g/dl (32.0-36.5); MEAN CORPUSCULAR VOLUME 86.9 fl (80.0-96.0); PLATELET COUNT, AUTOMATED 157 10^3/uL (150-450); RED BLOOD COUNT 3.27 10^6/uL (4.00-5.40); WHITE BLOOD COUNT 12.7 10^3/uL (4.0-10.0)
[2024-04-18 06:18] LABS: ALBUMIN 2.5 G/DL (3.2-5.2); ALKALINE PHOSPHATASE 116 U/L (35-104); ALT/SGPT < 9 U/L (7.0-40); AST/SGOT 18 U/L (<34); BILIRUBIN,TOTAL 0.4 MG/DL (0.3-1.2); BLOOD UREA NITROGEN 12 MG/DL (9-23); CALCIUM LEVEL 8.5 MG/DL (8.5-10.1); CARBON DIOXIDE LEVEL 31 MMOL/L (20-31); CHLORIDE LEVEL 106 MMOL/L (98-107); CREATININE FOR GFR 0.78 MG/DL (0.55-1.30); GLOMERULAR FILTRATION RATE > 60.0 (>58); GLUCOSE, FASTING 92 MG/DL (60-100); MAGNESIUM LEVEL 2.2 MG/DL (1.8-2.4); POTASSIUM SERUM 3.8 MMOL/L (3.5-5.1); SODIUM LEVEL 144 MMOL/L (136-145); TOTAL PROTEIN 5.9 G/DL (5.7-8.2)
[2024-04-18 06:48] LABS: ANISOCYTOSIS 2+; ATYPICAL LYMPH 1 % (0-5); HYPOCHROMASIA 2+; LYMPHOCYTES 12 % (16-44); METAMYELOCYTES 1 % (0-0); MONOCYTES 6 % (0-5); NEUTROPHILS 76 % (28-66); PLATELET ESTIMATE NORMAL (NORMAL); POLYCHROMASIA 1+
[2024-04-18 06:49] LABS: OVALOCYTES 1+; POIKILOCYTOSIS 1+; TEAR DROP CELLS 1+
[2024-04-18] MEDS ORDERED: MIDAZOLAM INJ 2MG/2ML VIAL As Ordered ONE (12:08)
[2024-04-18 17:17] LABS: C REACTIVE PROTEIN QUANTITATIV 9.43 MG/DL (<1.0)
[2024-04-19] VITALS (16 sets, daily range): BP systolic 94–122; BP diastolic 50–68; TEMP 97.6–98.6; O2SAT 91–99
[2024-04-19] MEDS: NS IV SCH (08:43)
[2024-04-19] MEDS: TOBRAMYCIN SULF IV SCH (08:43)
[2024-04-19 09:37] LABS: HEMATOCRIT 29.8 % (36.0-47.0); HEMOGLOBIN 8.8 g/dl (12.0-15.5); MEAN CORPUSCULAR HEMOGLOBIN 25.7 pg (27.0-33.0); MEAN CORPUSCULAR HGB CONC 29.5 g/dl (32.0-36.5); MEAN CORPUSCULAR VOLUME 87.1 fl (80.0-96.0); PLATELET COUNT, AUTOMATED 163 10^3/uL (150-450); RED BLOOD COUNT 3.42 10^6/uL (4.00-5.40); WHITE BLOOD COUNT 12.9 10^3/uL (4.0-10.0)
[2024-04-19 09:51] LABS: ALBUMIN 2.7 G/DL (3.2-5.2); ALKALINE PHOSPHATASE 114 U/L (35-104); ALT/SGPT < 9 U/L (7.0-40); AST/SGOT 20 U/L (<34); BILIRUBIN,TOTAL 0.4 MG/DL (0.3-1.2); BLOOD UREA NITROGEN 11 MG/DL (9-23); CALCIUM LEVEL 8.4 MG/DL (8.5-10.1); CARBON DIOXIDE LEVEL 29 MMOL/L (20-31); CHLORIDE LEVEL 108 MMOL/L (98-107); CREATININE FOR GFR 0.82 MG/DL (0.55-1.30); GLOMERULAR FILTRATION RATE > 60.0 (>58); GLUCOSE, FASTING 81 MG/DL (60-100); POTASSIUM SERUM 3.8 MMOL/L (3.5-5.1); SODIUM LEVEL 144 MMOL/L (136-145); TOTAL PROTEIN 6.1 G/DL (5.7-8.2)
[2024-04-19 12:17] LABS: ANISOCYTOSIS 1+; ATYPICAL LYMPH 9 % (0-5); EOSINOPHILS 3 % (0-3); LYMPHOCYTES 11 % (16-44); MONOCYTES 4 % (0-5); NEUTROPHILS 70 % (28-66); PLATELET ESTIMATE NORMAL (NORMAL)
[2024-04-19 12:18] LABS: HYPOCHROMASIA 1+; POIKILOCYTOSIS 1+; POLYCHROMASIA 1+
[2024-04-19] MEDS: FUROSEMIDE 40MG/4ML VIAL IV ONE (12:34)
[2024-04-19] MEDS ORDERED: MICAFUNGIN SODIUM 100 MG in DEXTROSE 5% (D5W) MINI-BAG PLU 100 ML IV SCH (18:00)
[2024-04-19 18:01] LABS: ALBUMIN 2.7 G/DL (3.2-5.2); ALKALINE PHOSPHATASE 122 U/L (35-104); ALT/SGPT 9 U/L (7.0-40); AST/SGOT 18 U/L (<34); BILIRUBIN,TOTAL 0.3 MG/DL (0.3-1.2); BLOOD UREA NITROGEN 12 MG/DL (9-23); CALCIUM LEVEL 9.1 MG/DL (8.5-10.1); CARBON DIOXIDE LEVEL 29 MMOL/L (20-31); CHLORIDE LEVEL 104 MMOL/L (98-107); CREATININE FOR GFR 0.88 MG/DL (0.55-1.30); GLOMERULAR FILTRATION RATE > 60.0 (>58); GLUCOSE, FASTING 188 MG/DL (60-100); MAGNESIUM LEVEL 1.9 MG/DL (1.8-2.4); POTASSIUM SERUM 4.2 MMOL/L (3.5-5.1); SODIUM LEVEL 140 MMOL/L (136-145); TOTAL PROTEIN 6.4 G/DL (5.7-8.2)
[2024-04-19] MEDS: MICAFUNGIN SODIUM 100 MG in DEXTROSE 5% (D5W) MINI-BAG PLU 100 ML IV SCH (19:41)
[2024-04-19] MEDS: LOPERAMIDE 2 MG CAPLET PO PRN (21:25)
[2024-04-20] VITALS (19 sets, daily range): BP systolic 109–132; BP diastolic 56–69; TEMP 97.3–98.4; O2SAT 91–98
[2024-04-20 05:13] LABS: BASO % 0.2 % (0.0-1.0); EOS # 0.1 10^3/uL (0.0-0.5); EOS % 0.8 % (0.0-3.0); HEMOGLOBIN 8.1 g/dl (12.0-15.5); LYMPH # 1.5 10^3/uL (1.5-5.0); LYMPH % 17.3 % (24.0-44.0); MEAN CORPUSCULAR HEMOGLOBIN 25.6 pg (27.0-33.0); MEAN CORPUSCULAR VOLUME 85.4 fl (80.0-96.0); MONO # 0.5 10^3/uL (0.0-0.8); MONO % 5.5 % (2.0-8.0); NEUTROPHILS % 71.3 % (36.0-66.0); PLATELET COUNT, AUTOMATED 126 10^3/uL (150-450); RED BLOOD COUNT 3.16 10^6/uL (4.00-5.40); WHITE BLOOD COUNT 8.4 10^3/uL (4.0-10.0)
[2024-04-20 05:42] LABS: ALBUMIN 2.6 G/DL (3.2-5.2); ALKALINE PHOSPHATASE 105 U/L (35-104); ALT/SGPT 10 U/L (7.0-40); AST/SGOT 21 U/L (<34); BILIRUBIN,TOTAL 0.3 MG/DL (0.3-1.2); BLOOD UREA NITROGEN 13 MG/DL (9-23); CALCIUM LEVEL 8.6 MG/DL (8.5-10.1); CARBON DIOXIDE LEVEL 32 MMOL/L (20-31); CHLORIDE LEVEL 106 MMOL/L (98-107); GLOMERULAR FILTRATION RATE > 60.0 (>58); GLUCOSE, FASTING 75 MG/DL (60-100); PHOSPHORUS LEVEL 2.5 MG/DL (2.5-4.9); POTASSIUM SERUM 3.3 MMOL/L (3.5-5.1); SODIUM LEVEL 145 MMOL/L (136-145); TOTAL PROTEIN 5.7 G/DL (5.7-8.2)
[2024-04-20 08:09] LABS: CLOSTRIDIUM DIFFICILE PCR NEGATIVE (NEGATIVE)
[2024-04-20] MEDS: methylPREDNISolone 500 MG, VIAL MATE ADAPTER 1 EACH in NS 100 ML IV SCH (09:17)
[2024-04-20] MEDS: POTASSIUM CHLORIDE 10MEQ SR TABLET PO ONE ×3 (09:24→17:48)
[2024-04-20] MEDS: predniSONE 20 MG TAB PO SCH (22:10)
[2024-04-21] VITALS (32 sets, daily range): BP systolic 106–134; BP diastolic 58–67; TEMP 96.9–98.3; O2SAT 85–99
[2024-04-21 08:08] LABS: HEMATOCRIT 28.4 % (36.0-47.0); HEMOGLOBIN 8.7 g/dl (12.0-15.5); MEAN CORPUSCULAR HGB CONC 30.6 g/dl (32.0-36.5); PLATELET COUNT, AUTOMATED 142 10^3/uL (150-450); RED BLOOD COUNT 3.34 10^6/uL (4.00-5.40)
[2024-04-21 08:48] LABS: ALBUMIN 2.8 G/DL (3.2-5.2); ALKALINE PHOSPHATASE 126 U/L (35-104); ALT/SGPT 14 U/L (7.0-40); AST/SGOT 21 U/L (<34); BILIRUBIN,TOTAL 0.3 MG/DL (0.3-1.2); BLOOD UREA NITROGEN 14 MG/DL (9-23); CALCIUM LEVEL 8.8 MG/DL (8.5-10.1); CARBON DIOXIDE LEVEL 32 MMOL/L (20-31); CHLORIDE LEVEL 105 MMOL/L (98-107); CREATININE FOR GFR 0.89 MG/DL (0.55-1.30); GLOMERULAR FILTRATION RATE > 60.0 (>58); GLUCOSE, FASTING 149 MG/DL (60-100); POTASSIUM SERUM 5.1 MMOL/L (3.5-5.1); SODIUM LEVEL 141 MMOL/L (136-145); TOTAL PROTEIN 6.1 G/DL (5.7-8.2)
[2024-04-21 09:20] LABS: ATYPICAL LYMPH 2 % (0-5); LYMPHOCYTES 10 % (16-44); METAMYELOCYTES 1 % (0-0); MONOCYTES 2 % (0-5); MYELOCYTES 2 % (0-0); NEUTROPHILS 81 % (28-66)
[2024-04-21 09:21] LABS: HYPOCHROMASIA 2+
[2024-04-21 09:22] LABS: TEAR DROP CELLS 1+
[2024-04-21 09:23] LABS: OVALOCYTES 1+; PLATELET ESTIMATE DECREASED (NORMAL)
[2024-04-21 09:24] LABS: ANISOCYTOSIS 2+
[2024-04-21] MEDS: NS IV SCH (09:28)
[2024-04-21] MEDS: TOBRAMYCIN SULF IV SCH (09:28)
[2024-04-21] MEDS: FUROSEMIDE 20MG/2ML VIAL IV ONE (17:00)
[2024-04-21] MEDS ORDERED: ISOVUE-370 76% 100ML VIAL As Ordered ONE (18:41)
[2024-04-21] MEDS ORDERED: DOCUSATE SODIUM 100MG CAPSULE PO PRN (22:30)
[2024-04-21] MEDS ORDERED: SENNA 8.6 MG TAB (SENOKOT) PO PRN (22:30)
[2024-04-22] VITALS (22 sets, daily range): BP systolic 116–128; BP diastolic 55–59; TEMP 97.2–98.2; O2SAT 89–100
[2024-04-22 06:10] LABS: HEMATOCRIT 30.7 % (36.0-47.0); HEMOGLOBIN 9.2 g/dl (12.0-15.5); MEAN CORPUSCULAR HEMOGLOBIN 25.8 pg (27.0-33.0); PLATELET COUNT, AUTOMATED 154 10^3/uL (150-450); RED BLOOD COUNT 3.57 10^6/uL (4.00-5.40); WHITE BLOOD COUNT 9.2 10^3/uL (4.0-10.0)
[2024-04-22 06:55] LABS: ALKALINE PHOSPHATASE 138 U/L (35-104); ALT/SGPT 19 U/L (7.0-40); AST/SGOT 30 U/L (<34); BILIRUBIN,TOTAL 0.4 MG/DL (0.3-1.2); BLOOD UREA NITROGEN 16 MG/DL (9-23); CALCIUM LEVEL 9.7 MG/DL (8.5-10.1); CARBON DIOXIDE LEVEL 32 MMOL/L (20-31); CHLORIDE LEVEL 100 MMOL/L (98-107); CREATININE FOR GFR 0.93 MG/DL (0.55-1.30); GLOMERULAR FILTRATION RATE > 60.0 (>58); GLUCOSE, FASTING 125 MG/DL (60-100); POTASSIUM SERUM 4.7 MMOL/L (3.5-5.1); SODIUM LEVEL 140 MMOL/L (136-145); TOTAL PROTEIN 6.6 G/DL (5.7-8.2)
[2024-04-22 16:52] LABS: C REACTIVE PROTEIN QUANTITATIV 0.75 MG/DL (<1.0)
[2024-04-22] MEDS ORDERED: NS IV SCH (21:00)
[2024-04-22] MEDS ORDERED: TOBRAMYCIN SULF IV SCH (21:00)
== END 2024-04-22 19:24 | disposition short-term general hospital (02) | DRG 137 ==
LOC: M ED 11:45 → M ED INP 17:37 → EEVIPCON 17:37 → M PCU 04-10 13:05 → M ICU 04-13 09:10 → M PCU 04-20 15:36
PROVIDERS: ADMIT Family Medicine; ATTEND Internal Medicine
PROC: 0BC38ZZ Extirpation of Matter from Right Main Bronchus, Via Natural or Artificial Opening Endoscopic (ICD-10-PCS; principal; 2024-04-13)
PROC: 0F9030Z Drainage of Liver with Drainage Device, Percutaneous Approach (ICD-10-PCS; 2024-04-18)
DX: J15.1 Pneumonia due to Pseudomonas (principal); J96.21 Acute and chronic respiratory failure with hypoxia; I50.33 Acute on chronic diastolic (congestive) heart failure; Z93.0 Tracheostomy status; K81.0 Acute cholecystitis; J38.02 Paralysis of vocal cords and larynx, bilateral; J38.6 Stenosis of larynx; E66.01 Morbid (severe) obesity due to excess calories; Z68.41 Body mass index [BMI] 40.0-44.9, adult; E44.1 Mild protein-calorie malnutrition; F11.20 Opioid dependence, uncomplicated; F25.9 Schizoaffective disorder, unspecified; K91.870 Postprocedural hematoma of a digestive system organ or structure following a digestive system procedure; E83.39 Other disorders of phosphorus metabolism; E83.42 Hypomagnesemia; N18.31 Chronic kidney disease, stage 3a; E87.6 Hypokalemia; E03.9 Hypothyroidism, unspecified; D63.8 Anemia in other chronic diseases classified elsewhere; I89.0 Lymphedema, not elsewhere classified; K66.9 Disorder of peritoneum, unspecified; J45.909 Unspecified asthma, uncomplicated; F60.3 Borderline personality disorder; R19.7 Diarrhea, unspecified; G47.33 Obstructive sleep apnea (adult) (pediatric); F32.A Depression, unspecified; F41.1 Generalized anxiety disorder; F43.10 Post-traumatic stress disorder, unspecified; F10.11 Alcohol abuse, in remission; Z86.14 Personal history of Methicillin resistant Staphylococcus aureus infection; Z79.890 Hormone replacement therapy; Z79.899 Other long term (current) drug therapy; Z87.891 Personal history of nicotine dependence; Z95.828 Presence of other vascular implants and grafts

== ENCOUNTER 2024-05-04 01:10 | Inpatient (IN) | payer MEDICAID, OTHER ==
[~2024-05-04] VITALS: Ht 160 cm; Wt 104.7 kg
[2024-05-04] VITALS (7 sets, daily range): BP systolic 118–132; BP diastolic 63–86; TEMP 97.5–98.4; O2SAT 91–94
[2024-05-04] MEDS: ACETAMINOPHEN *IV* 1,000 MG in IV 1 EA IV ONE (01:38)
[2024-05-04 01:41] LABS: VENOUS HCO3 16.9 MMOL/L (23.0-27.0); VENOUS O2 SATURATION 96.2 % (60.0-80.0); VENOUS PARTIAL PRESSURE CO2 36.4 mmHg (38.0-50.0); VENOUS PARTIAL PRESSURE O2 96.1 mmHg (30.0-50.0); VENOUS PH 7.284 UNITS (7.330-7.430); VENOUS STANDARD HCO3 17.1 MMOL/L
[2024-05-04 02:06] LABS: BASO % 0.2 % (0.0-1.0); EOS # 0.2 10^3/uL (0.0-0.5); EOS % 2.1 % (0.0-3.0); HEMATOCRIT 28.4 % (36.0-47.0); HEMOGLOBIN 8.9 g/dl (12.0-15.5); LYMPH # 0.7 10^3/uL (1.5-5.0); LYMPH % 6.3 % (24.0-44.0); MEAN CORPUSCULAR HEMOGLOBIN 26.8 pg (27.0-33.0); MEAN CORPUSCULAR HGB CONC 31.3 g/dl (32.0-36.5); MEAN CORPUSCULAR VOLUME 85.5 fl (80.0-96.0); MONO # 0.5 10^3/uL (0.0-0.8); MONO % 4.6 % (2.0-8.0); NEUTROPHILS % 85.8 % (36.0-66.0); PLATELET COUNT, AUTOMATED 114 10^3/uL (150-450); RED BLOOD COUNT 3.32 10^6/uL (4.00-5.40); WHITE BLOOD COUNT 10.5 10^3/uL (4.0-10.0)
[2024-05-04 03:14] LABS: PROCALCITONIN 0.52 ng/ml
[2024-05-04 03:43] LABS: ALBUMIN 2.6 G/DL (3.2-5.2); ALKALINE PHOSPHATASE 209 U/L (35-104); ALT/SGPT 25 U/L (7.0-40); AST/SGOT 47 U/L (<34); BILIRUBIN,DIRECT 0.2 MG/DL (<0.4); BILIRUBIN,TOTAL 0.4 MG/DL (0.3-1.2); BLOOD UREA NITROGEN 8 MG/DL (9-23); CARBON DIOXIDE LEVEL 17 MMOL/L (20-31); CHLORIDE LEVEL 107 MMOL/L (98-107); CREATININE FOR GFR 0.99 MG/DL (0.55-1.30); GLOMERULAR FILTRATION RATE > 60.0 (>58); GLUCOSE, FASTING 236 MG/DL (60-100); POTASSIUM SERUM 5.4 MMOL/L (3.5-5.1); SODIUM LEVEL 136 MMOL/L (136-145); TOTAL PROTEIN 5.9 G/DL (5.7-8.2)
[2024-05-04] MEDS: PIPERACILLIN/TAZOBACTAM SOD 4.5 GM in DEXTROSE 5% (D5W) ADV/MINI-BAG 50 ML IV ONE (03:51)
[2024-05-04] MEDS ORDERED: ISOVUE-370 76% 100ML VIAL As Ordered ONE (04:32)
[2024-05-04] MEDS: LEVOTHYROXINE 100MCG TABLET (0.1MG) PO SCH (06:00)
[2024-05-04] MEDS ORDERED: ALBU2.5V10 INH (08:19)
[2024-05-04] MEDS ORDERED: MOM 30ML SUSPENSION UDC PO PRN (08:45)
[2024-05-04] MEDS ORDERED: MAALOX 30 ML SUSP *UDC PO PRN (08:45)
[2024-05-04 08:48] LABS: ABG BASE EXCESS -3.1 (-2.0-2.0); ABG HCO3 22.2 MMOL/L (22.0-26.0); ABG PARTIAL PRESSURE O2 66.2 mmHg (75.0-100.0); ABG STANDARD HCO3 21.8 MMOL/L. (22.0-26.0); ABG TOTAL CO2 23.5 MMOL/L (22.0-29.0); ABG pH (ARTERIAL) 7.352 UNITS (7.350-7.450)
[2024-05-04] MEDS: SPIRONOLACTONE 25 MG TAB PO SCH (09:00)
[2024-05-04] MEDS ORDERED: ENOXAPARIN 40MG/0.4ML SYRINGE (J1650 PER 10MG) SC SCH (09:00)
[2024-05-04] MEDS ORDERED: HOME MED LIST COMPLETE! XX SCH (09:20)
[2024-05-04 09:41] LABS: PERCENT SATURATION 3.3 % (13.2-45.0)
[2024-05-04 09:46] LABS: CALCIUM LEVEL 7.9 MG/DL (8.5-10.1); CREATININE FOR GFR 1.13 MG/DL (0.55-1.30); FERRITIN 177.1 NG/ML (7.3-270.7); FOLATE 4.5 NG/ML (>5.4); GLOMERULAR FILTRATION RATE 56.2 (>58); POTASSIUM SERUM 3.7 MMOL/L (3.5-5.1)
[2024-05-04] MEDS ORDERED: CEFIDEROCOL SULFATE TOSYLATE 2 GM in NS 100 ML IV SCH (10:00)
[2024-05-04] MEDS: CEFIDEROCOL SULFATE TOSYLATE 2 GM in NS 100 ML IV SCH (10:28)
[2024-05-04 11:46] LABS: HEMOGLOBIN A1c 5.3 % (4.0-6.0)
[2024-05-04] MEDS ORDERED: hydrOXYzine 50 MG TAB PO PRN (12:10)
[2024-05-04] MEDS: MICAFUNGIN SODIUM 100 MG in DEXTROSE 5% (D5W) MINI-BAG PLU 100 ML IV SCH (12:16)
[2024-05-04] MEDS: FUROSEMIDE 20MG/2ML VIAL IV ONE (12:16)
[2024-05-04] MEDS: LINEZOLID 600MG TABLET (ZYVOX) PO SCH (14:30)
[2024-05-04] MEDS: PANTOPRAZOLE 40MG TAB (PROTONIX) PO SCH (14:30)
[2024-05-04] MEDS: METHADONE 10MG TAB PO ONE (14:30)
[2024-05-04] MEDS: LOSARTAN 25 MG TAB PO SCH (14:31)
[2024-05-04] MEDS: RIVAROXABAN 10MG TAB (XARELTO) PO SCH (17:24)
[2024-05-04] MEDS: OLANZapine 2.5MG TABLET PO SCH (17:24)
[2024-05-04] MEDS ORDERED: VENLAFAXINE **XR** 37.5 MG CAPSULE PO SCH (21:00)
[2024-05-04] MEDS ORDERED: traZODone 50 MG TAB PO SCH (21:00)
[2024-05-04] MEDS: METOPROLOL SUCC *XL* 12.5MG PER 1/2 TAB (TopROL *XL*) PO SCH (21:40)
[2024-05-04] MEDS: QUEtiapine FUMERATE XR 50MG TABER PO SCH (21:41)
[2024-05-04] MEDS: TOPIRAMATE (TopAMAX) 100 MG TAB PO SCH (21:41)
[2024-05-04] MEDS: PRAZOSIN 1 MG CAP PO SCH (21:42)
[2024-05-05] VITALS (88 sets, daily range): BP systolic 60–130; BP diastolic 38–96; TEMP 98.1–99.1; O2SAT 77–99
[2024-05-05 06:47] LABS: BASO % 0.3 % (0.0-1.0); EOS # 0.3 10^3/uL (0.0-0.5); EOS % 2.7 % (0.0-3.0); HEMATOCRIT 29.1 % (36.0-47.0); HEMOGLOBIN 8.7 g/dl (12.0-15.5); LYMPH # 2.1 10^3/uL (1.5-5.0); LYMPH % 18.4 % (24.0-44.0); MEAN CORPUSCULAR HGB CONC 29.9 g/dl (32.0-36.5); MEAN CORPUSCULAR VOLUME 87.1 fl (80.0-96.0); MONO # 0.6 10^3/uL (0.0-0.8); MONO % 5.6 % (2.0-8.0); NEUTROPHILS # 8.1 10^3/uL (1.5-8.5); PLATELET COUNT, AUTOMATED 154 10^3/uL (150-450); RED BLOOD COUNT 3.34 10^6/uL (4.00-5.40); WHITE BLOOD COUNT 11.2 10^3/uL (4.0-10.0)
[2024-05-05 07:06] LABS: ALBUMIN 2.4 G/DL (3.2-5.2); CREATININE FOR GFR 1.5 MG/DL (0.55-1.30); GLOMERULAR FILTRATION RATE 40.5 (>58); MAGNESIUM LEVEL 1.8 MG/DL (1.8-2.4); PHOSPHORUS LEVEL 4.9 MG/DL (2.5-4.9); POTASSIUM SERUM 3.6 MMOL/L (3.5-5.1)
[2024-05-05] MEDS: NOREPINEPHRINE 4MG IN D5 250ML 4 MG in IV 1 EA IV SCH (07:37)
[2024-05-05] MEDS ORDERED: buPROPion **XL** TABLET 150MG (WELLBUTRIN XL) PO SCH (09:00)
[2024-05-05] MEDS: LINEZOLID 600 MG in IV 1 EA IV ONE (12:53)
[2024-05-05] MEDS: METHADONE 10MG TAB PO SCH (13:47)
[2024-05-05] MEDS: GABAPENTIN 100 MG CAP PO ONE (16:17)
[2024-05-05] MEDS: VANCOMYCIN HCL 1,000 MG, VIAL MATE ADAPTER 1 EACH in NS 250 ML IV ONE (17:00)
[2024-05-05] MEDS: traZODone 50 MG TAB PO SCH (20:03)
[2024-05-05] MEDS: GABAPENTIN 100 MG CAP PO SCH (20:06)
[2024-05-05] MEDS ORDERED: VANCOMYCIN HCL 750 MG, VIAL MATE ADAPTER 1 EACH in NS 250 ML IV SCH (21:00)
[2024-05-05] MEDS: VANCOMYCIN HCL 500 MG in DEXTROSE 5% (D5W) MINI-BAG PLU 100 ML IV SCH (21:10)
[2024-05-05] MEDS: ACETAMINOPHEN 325 MG TAB PO PRN (21:32)
[2024-05-06] VITALS (115 sets, daily range): BP systolic 39–173; BP diastolic 20–97; TEMP 97.9–99.1; O2SAT 59–100
[2024-05-06 04:41] LABS: BASO % 0.4 % (0.0-1.0); EOS # 0.4 10^3/uL (0.0-0.5); EOS % 3.7 % (0.0-3.0); HEMATOCRIT 29.3 % (36.0-47.0); HEMOGLOBIN 8.7 g/dl (12.0-15.5); LYMPH # 1.4 10^3/uL (1.5-5.0); LYMPH % 13.7 % (24.0-44.0); MEAN CORPUSCULAR HEMOGLOBIN 25.9 pg (27.0-33.0); MEAN CORPUSCULAR HGB CONC 29.7 g/dl (32.0-36.5); MEAN CORPUSCULAR VOLUME 87.2 fl (80.0-96.0); MONO # 0.5 10^3/uL (0.0-0.8); MONO % 5.1 % (2.0-8.0); NEUTROPHILS # 7.8 10^3/uL (1.5-8.5); NEUTROPHILS % 76.2 % (36.0-66.0); PLATELET COUNT, AUTOMATED 155 10^3/uL (150-450); RED BLOOD COUNT 3.36 10^6/uL (4.00-5.40); WHITE BLOOD COUNT 10.2 10^3/uL (4.0-10.0)
[2024-05-06] MEDS: ALBUTEROL SULFATE 2.5MG/0.5ML INH NEB SOLN INH PRN (05:02)
[2024-05-06 07:27] LABS: VANCOMYCIN LEVEL TROUGH 9.1 UG/ML (10.0-20.0)
[2024-05-06 07:28] LABS: ALBUMIN 2.4 G/DL (3.2-5.2); CALCIUM LEVEL 7.9 MG/DL (8.5-10.1); CREATININE FOR GFR 1.09 MG/DL (0.55-1.30); GLOMERULAR FILTRATION RATE 58.6 (>58); MAGNESIUM LEVEL 1.9 MG/DL (1.8-2.4); PHOSPHORUS LEVEL 4.3 MG/DL (2.5-4.9); POTASSIUM SERUM 3.5 MMOL/L (3.5-5.1)
[2024-05-06] MEDS: buPROPion **XL** TABLET 150MG (WELLBUTRIN XL) PO SCH (08:12)
[2024-05-06] MEDS: VENLAFAXINE 37.5 MG TAB PO SCH (08:12)
[2024-05-06] MEDS ORDERED: MIDAZOLAM INJ 2MG/2ML VIAL As Ordered ONE (08:52)
[2024-05-06] MEDS: MIDAZOLAM INJ 2MG/2ML VIAL IV STA (08:55)
[2024-05-06] MEDS: FUROSEMIDE 20MG/2ML VIAL IV ONE (09:01)
[2024-05-06] MEDS ORDERED: LIDOCAINE 1% MDV 20ML VIAL As Ordered ONE (09:04)
[2024-05-06] MEDS: MIDAZOLAM 100MG/100ML-0.9%NACL 100 MG in IV 1 EA IV SCH (09:09)
[2024-05-06] MEDS: LIDOCAINE 1% MDV 20ML VIAL XX STA (09:17)
[2024-05-06] MEDS: VASOPRESSIN IN 0.9 % NACL 20 UNIT in IV 1 EA IV SCH (10:09)
[2024-05-06] MEDS: methylPREDNISolone 500 MG, VIAL MATE ADAPTER 1 EACH in NS 100 ML IV ONE (10:17)
[2024-05-06] MEDS: VANCOMYCIN HCL 750 MG, VIAL MATE ADAPTER 1 EACH in NS 250 ML IV SCH (11:59)
[2024-05-06] MEDS: ROCURONIUM BROMIDE 50MG/5ML VIAL IV SCH (12:30)
[2024-05-06 13:45] LABS: ABG BASE EXCESS -6.5 (-2.0-2.0); ABG HCO3 21.9 MMOL/L (22.0-26.0); ABG O2 SATURATION 78.8 % (95.0-99.0); ABG PARTIAL PRESSURE CO2 58.1 mmHg (35.0-45.0); ABG STANDARD HCO3 18.8 MMOL/L. (22.0-26.0); ABG TOTAL CO2 23.7 MMOL/L (22.0-29.0)
[2024-05-06 13:50] LABS: ABG PARTIAL PRESSURE O2 44.9 mmHg (75.0-100.0); ABG pH (ARTERIAL) 7.195 UNITS (7.350-7.450)
[2024-05-06] MEDS ORDERED: ROCURONIUM BROMIDE 50MG/5ML VIAL As Ordered ONE (13:57)
[2024-05-06] MEDS: MICAFUNGIN SODIUM 100 MG in DEXTROSE 5% (D5W) MINI-BAG PLU 100 ML IV SCH (14:01)
[2024-05-06] MEDS: ACETAMINOPHEN *IV* 1,000 MG in IV 1 EA IV ONE (15:15)
[2024-05-06] MEDS ORDERED: EPINEPHrine INJ 1 MG/ML 1ML AMP As Ordered ONE (15:40)
[2024-05-06] MEDS: EPINEPHrine HCL INJ 16 MG in D5W 984 ML IV SCH (16:00)
[2024-05-06] MEDS ORDERED: SODIUM BICARBONATE 8.4% INJ 50ML SYRINGE As Ordered ONE (16:00)
[2024-05-06] MEDS: SODIUM BICARBONATE 150 MEQ in STERILE WATER LITER BAG 1,000 ML IV SCH (17:00)
[2024-05-06] MEDS: SODIUM BICARBONATE 8.4% INJ 50ML SYRINGE IV STA (17:34)
[2024-05-06] MEDS ORDERED: GABAPENTIN 400MG CAP PO SCH (21:00)
== END 2024-05-06 19:45 | disposition expired | DRG 720 ==
LOC: EDBD 01:10 → M ED 01:10 → M ED INP 07:18 → M PCU 09:25 → M ICU 05-05 07:24
PROVIDERS: ADMIT Internal Medicine; ATTEND Internal Medicine Pulmonary Disease
PROC: B246ZZZ Ultrasonography of Right and Left Heart (ICD-10-PCS; principal; 2024-05-04)
PROC: 5A1935Z Respiratory Ventilation, Less than 24 Consecutive Hours (ICD-10-PCS; 2024-05-06)
PROC: 05HY33Z Insertion of Infusion Device into Upper Vein, Percutaneous Approach (ICD-10-PCS; 2024-05-06)
PROC: 06HY33Z Insertion of Infusion Device into Lower Vein, Percutaneous Approach (ICD-10-PCS; 2024-05-06)
PROC: 0B21XFZ Change Tracheostomy Device in Trachea, External Approach (ICD-10-PCS; 2024-05-06)
PROC: 0BC18ZZ Extirpation of Matter from Trachea, Via Natural or Artificial Opening Endoscopic (ICD-10-PCS; 2024-05-06)
DX: A41.9 Sepsis, unspecified organism (principal); J96.21 Acute and chronic respiratory failure with hypoxia; R65.21 Severe sepsis with septic shock; B37.89 Other sites of candidiasis; J15.1 Pneumonia due to Pseudomonas; E87.20 Acidosis, unspecified; I50.32 Chronic diastolic (congestive) heart failure; K66.8 Other specified disorders of peritoneum; J38.00 Paralysis of vocal cords and larynx, unspecified; J95.09 Other tracheostomy complication; D69.6 Thrombocytopenia, unspecified; E66.01 Morbid (severe) obesity due to excess calories; F25.9 Schizoaffective disorder, unspecified; Z68.41 Body mass index [BMI] 40.0-44.9, adult; N18.30 Chronic kidney disease, stage 3 unspecified; K21.9 Gastro-esophageal reflux disease without esophagitis; F11.21 Opioid dependence, in remission; F10.11 Alcohol abuse, in remission; D64.9 Anemia, unspecified; D86.9 Sarcoidosis, unspecified; E03.9 Hypothyroidism, unspecified; G47.33 Obstructive sleep apnea (adult) (pediatric); I89.0 Lymphedema, not elsewhere classified; G89.29 Other chronic pain; J45.909 Unspecified asthma, uncomplicated; F41.1 Generalized anxiety disorder; F32.A Depression, unspecified; F60.3 Borderline personality disorder; F43.10 Post-traumatic stress disorder, unspecified; Z79.890 Hormone replacement therapy; Z79.899 Other long term (current) drug therapy; Z87.891 Personal history of nicotine dependence; I46.9 Cardiac arrest, cause unspecified